=== PATIENT | female | born 1945 | race Caucasian/White ===

== ENCOUNTER 2021-05-05 21:25 | Inpatient (IN) | payer SELFPAY, OTHER ==
[2021-05-05 22:43] VITALS: BP 109/59; PULSE 86; PULSE 88; RESP 16; RESP 18; TEMP 36.9; O2SAT 92
--- NOTE | 2021-05-05 23:23 | HP.PCM_ITS ---
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 Patient had progressive paraplegia. Acute rehabilitation for progressive paraplegia. Hypotension secondary to atrial fibrillation with rapid ventricular response, off rate control medications, off anticoagulation due to hypotension. 05/01/2021 Presented to ER with hypotension secondary to atrial fibrillation with rapid ventricular response, runs of SVT. 05/02/2021 Admit to [facility] Neu[facility] Int[facility] Unit with hypotension. Hypotension resolved. Heart rate controlled with amiodarone drip. No new acute neurologic findings. No new testing recommended per neurology. Oncology recommending radiation, chemotherapy for epidural mass. 05/03/2021 Cardiology recommends stopping IV amiodarone, then Amiodarone 400MG daily for 1 month, then 200MG daily continuously. Recommend Thyroid, liver monitoring. 05/05/2021 Admit to TCU with debility, here for rehabilitation, strengthening, prior to discharge home with family. PFSH Allergy/AdvReac Type Severity Reaction Status Date / Time No Known Allergies Allergy Verified 05/05/21 23:43 Surgical History (Updated 05/05/21 @ 23:[address] Jarod Menendez MD) Hx of CABG Social History (Updated 05/05/21 @ 23:[address] Jarod Menendez MD) household members: family Smoking Status: Never smoker alcohol intake: never substance use type: does not use ROS Constitutional Constitutional: Denies chills, fever(s) or weight gain ENT HEENT: Denies headache(s), nasal congestion or nasal discharge Cardiovascular Cardiovascular: Denies chest pain or palpitations Respiratory/Chest Respiratory/Chest: Denies cough, excessive phlegm production or shortness of breath with exertion Gastrointestinal Gastrointestinal: Denies abdominal pain, nausea or vomiting Genitourinary Genitourinary: Denies dysuria Musculoskeletal Musculoskeletal: Denies joint pain or joint swelling Integumentary Integumentary: Denies rash or wounds Neurologic Neurologic: Denies focal weakness, numbness or tingling Psychiatric Psychiatric: Reports auditory hallucinations; Denies anxiety, depression, homicidal ideation or suicidal ideation Vital Signs Vital Signs Vital Signs: 05/05/21 22:43 Temperature 98.5 F Temperature Source Temporal Pulse Rate 86 Respiratory Rate 18 Blood Pressure 109/59 L Blood Pressure Mean 75 Blood Pressure Source Monitor Blood Pressure Position Semi-Fowlers Blood Pressure Location Right Arm Pulse Ox 92 Oxygen Delivery Method Room Air Physical Exam Const alert and oriented x3 General Appearance: cooperative HEENT normocephalic Eyes PERRL and EOMs intact bilaterally Neck supple, no JVD and no carotid bruits Resp normal respiratory effort, normal air movement and clear to auscultation bilaterally Cardio regular rate and regular rhythm GI normal to inspection, nondistended, normoactive bowel sounds, non-tender and non-distended Extremity normal capillary refill General Extremity: Negative for edema Skin no rashes or lesions noted General Skin Exam: no breakdown Neuro Neuro Narrative: Paraplegia. Psych affect normal Appearance: appropriate Results Lab / Micro Data Result Diagrams: 05/06/21 07:50 05/06/21 07:50 Assessment & Plan Assessment/Plan (1) Debility: (2) Hypotension: (3) Atrial fibrillation with rapid ventricular response: (4) Epidural mass: (5) Paraplegia: (6) Diffuse large B-cell lymphoma: (7) Coronary artery disease: PLAN: 75 year old female with below past medical history hospitalized for hypotension secondary to atrial fibrillation with rapid ventricular response, complicated by epidural mass, paraplegia, admitted to TCU with debility, here for rehabilitation, strengthening, prior to discharge home with family. * Debility - PT/OT, * Pain - Tylenol 1000MG Q6H PRN pain (1-5), Oxycodone 5MG Q4H PRN pain (6-10). * Bowel - Miralax 17GM daily, Senna/colace 2 tablets BID, Dulcolax 10MG DE daily PRN. * Adult immunization - Administer Prevnar 13, Pneumovax 23, Fluzone, COVID19 vaccine as appropriate. * DVT prophylaxis - Not necessary, already on Eliquis. * Atrial Fibrillation - Metoprolol 50MG Q6H, Amiodarone 400MG daily thru 06/03/2021, then 200MG daily, Eliquis 5MG twice daily. * Coronary artery disease - Metoprolol 50MG Q6H, Lisinopril 5MG daily, Aspirin 81MG daily, NTG 0.5inch TID PRN chest pain. * Hyperlipidemia - Atorvastatin 40MG QHS. * ID - Cefdinir 300MG Q12H thru 05/11/2021. * Neuropathic pain - Gabapentin 300MG TID. * Rash - Hydrocortisone cream topical twice daily. * Insomnia - Melatonin 3MG QHS. * Nutrition - MVI daily. * Nausea - Zofran 8MG Q8H PRN, Compazine 10MG Q6H PRN. * Epidural mass - radiation, consult Dr. Lake for chemotherapy, Dr. Polo for radiation.
[2021-05-06] VITALS (7 sets, daily range): BP systolic 102–135; BP diastolic 51–62; PULSE 72–88; RESP 14–16; TEMP 36.2–36.5; O2SAT 93–98; BMI 29.7
[2021-05-06] MEDS: Acetaminophen 500 MG Tablet 1000 MG PO ×2 (00:20→22:05)
[2021-05-06] MEDS: MELATONIN 3 MG TABLET PO ×2 (00:22→22:03)
[2021-05-06] MEDS: Atorvastatin Calcium 40 MG Tablet PO ×2 (00:22→22:03)
[2021-05-06] MEDS: Metoprolol Tartrate 50 MG Tablet PO ×4 (00:22→17:25)
[2021-05-06] MEDS: APIXABAN 5 MG TABLET PO ×3 (00:27→17:25)
[2021-05-06] MEDS: Cefdinir 300 MG Capsule PO ×3 (00:27→17:26)
[2021-05-06] MEDS: Senna Tablet 2 TABLET PO ×2 (06:02→17:26)
[2021-05-06] MEDS: Amiodarone 200 MG Tablet 400 MG PO (06:02)
[2021-05-06] MEDS: Lisinopril 5 MG Tablet PO (06:03)
[2021-05-06] MEDS: Nystatin Powder 15gm Bottle 1 APPLIC TOPICAL ×2 (06:18→17:26)
[2021-05-06] MEDS: Polyethylene Glycol 3350 17 GM PACKET PO (06:18)
[2021-05-06 08:09] LABS: Absolute Lymphocyte Count 1.53 X10^3/uL (0.83-4.51); Absolute Neutrophil Count 5.6 X10^3/uL (2.0-7.7); Basophil# 0.04 X10^3/uL; Basophil% 0.5 % (0-1); Eosinophil# 0.33 X10^3/uL; Eosinophils% 3.8 % (0-5); Hematocrit 35.3 % (37-47); Hemoglobin 10.9 g/dL (12.0-15.0); Lymphocyte # 1.53 X10^3/ul (0.83-4.51); Lymphocyte % 17.7 % (19-41); Mean Corp Hgb Conc 30.9 g/dL (32-36); Mean Corpuscular Hgb 25.1 pg (27.0-32.0); Mean Corpuscular Volume 81.3 fL (81-99); Mean Platelet Vol. 9.7 fl (6.2-12.0); Monocyte# 1.12 X10^3/uL; Monocyte% 12.9 % (0-10); NRBC Flagged by Analyzer 0 % (0-5); Neutrophil # 5.58 X10^3/uL (2.7-7.7); Neutrophil % 64.5 % (47-70); Platelet Count 247 K/mm3 (150-450); RBC Distribution Width CV 17.6 % (11.6-14.6); RBC Distribution Width SD 51.8 fl (35.1-43.9); Red Blood Count 4.34 M/mm3 (4.2-5.4); White Blood Count 8.7 K/mm3 (4.4-11.0)
[2021-05-06] MEDS: Multivitamins,Ther W-Minerals Tablet 1 TABLET PO (08:26)
[2021-05-06] MEDS: Gabapentin 300 MG Capsule PO ×3 (08:26→17:25)
[2021-05-06] MEDS: Aspirin E.C. 81 MG Tablet PO (08:26)
[2021-05-06 08:34] LABS: Anion Gap 6 (5-15); BUN 8 mg/dL (7-18); BUN/Creat Ratio 16.9 RATIO (10-20); Calcium,Total 8.9 mg/dL (8.5-10.1); Chloride 103 mmol/L (98-107); Creatinine, Serum 0.47 mg/dL (0.55-1.02); EST Glomerular Filtration Rate 135 mL/min (>60); Est Glom Filt Rate - Afr Amer 164 mL/min (>60); Glucose 84 mg/dL (74-106); Potassium 3.5 mmol/L (3.5-5.1); Sodium Level 139 mmol/L (136-145)
[2021-05-06] MEDS: Tuberculin,Purif.prot.deriv. 50 TU/ML Vial 0.1 ML ID (10:06)
--- NOTE | 2021-05-06 13:57 | NURSING ---
Gutierrez inserted 05/02/21 per discharge packet.
--- NOTE | 2021-05-06 14:04 | NURSING ---
Spoke with pt and family about code status pt wishes to be full code.
--- NOTE | 2021-05-06 14:06 | NURSING ---
Pt LBM 05/01/21 per shift report pt refused Suppository at this time pt stated she will take it after her family leaves. Call light within reach.
[2021-05-06] MEDS: Bisacodyl 10 MG Suppository RC (14:43)
--- NOTE | 2021-05-06 16:07 | NURSING ---
Pt stated she takes Tylenol QHS to help her sleep better. Dr. Menendez updated and new order for 1000mg QHS.
[2021-05-07 00:13] VITALS: BP 107/54; PULSE 84
[2021-05-07] MEDS: Metoprolol Tartrate 50 MG Tablet PO ×4 (00:13→17:37)
[2021-05-07 06:20] VITALS: BP 129/66; PULSE 68; RESP 16; TEMP 36.2; O2SAT 95
[2021-05-07 06:23] VITALS: BP 129/66; PULSE 68
[2021-05-07] MEDS: Amiodarone 200 MG Tablet 400 MG PO (06:23)
[2021-05-07] MEDS: Cefdinir 300 MG Capsule PO ×2 (06:23→17:38)
[2021-05-07] MEDS: Lisinopril 5 MG Tablet PO (06:23)
[2021-05-07] MEDS: Nystatin Powder 15gm Bottle 1 APPLIC TOPICAL ×2 (06:24→17:38)
[2021-05-07] MEDS: Senna Tablet 2 TABLET PO ×2 (06:24→17:39)
[2021-05-07] MEDS: APIXABAN 5 MG TABLET PO ×2 (06:24→17:38)
[2021-05-07] MEDS: Gabapentin 300 MG Capsule PO ×3 (07:46→17:38)
[2021-05-07] MEDS: Aspirin E.C. 81 MG Tablet PO (07:46)
[2021-05-07] MEDS: Multivitamins,Ther W-Minerals Tablet 1 TABLET PO (07:46)
[2021-05-07 12:18] VITALS: BP 119/51; PULSE 81
[2021-05-07 14:08] VITALS: BP 101/56; PULSE 80; RESP 18; TEMP 36.3; O2SAT 95
[2021-05-07 17:37] VITALS: BP 136/54; PULSE 79
[2021-05-07] MEDS: Atorvastatin Calcium 40 MG Tablet PO (21:58)
[2021-05-07] MEDS: MELATONIN 3 MG TABLET PO (21:58)
[2021-05-07] MEDS: Acetaminophen 500 MG Tablet 1000 MG PO (21:58)
[2021-05-08] VITALS (7 sets, daily range): BP systolic 120–150; BP diastolic 52–72; PULSE 75–89; RESP 16; TEMP 36.4–36.6; O2SAT 93–97; BMI 29.7
[2021-05-08] MEDS: Metoprolol Tartrate 50 MG Tablet PO ×4 (02:07→17:01)
[2021-05-08] MEDS: Lisinopril 5 MG Tablet PO (06:55)
[2021-05-08] MEDS: Cefdinir 300 MG Capsule PO ×2 (06:55→17:01)
[2021-05-08] MEDS: Amiodarone 200 MG Tablet 400 MG PO (06:55)
[2021-05-08] MEDS: APIXABAN 5 MG TABLET PO ×2 (06:56→17:00)
[2021-05-08] MEDS: Nystatin Powder 15gm Bottle 1 APPLIC TOPICAL ×2 (06:57→17:01)
[2021-05-08] MEDS: Hydrocortisone 2.5% Crm 1 APPLIC TOPICAL (06:57)
--- NOTE | 2021-05-08 07:25 | PCA ---
pt dressed self with upper body dressing ex: shirt, was total dependence for lower extremity dressing
[2021-05-08] MEDS: Aspirin E.C. 81 MG Tablet PO (08:15)
[2021-05-08] MEDS: Gabapentin 300 MG Capsule PO ×3 (08:15→17:00)
[2021-05-08] MEDS: Multivitamins,Ther W-Minerals Tablet 1 TABLET PO (08:16)
[2021-05-08] MEDS: Juven (unflavored) Packet 1 PACKET PO ×2 (08:17→17:00)
--- NOTE | 2021-05-08 10:52 | NURSING ---
DR. YA'S OFFICE CALLED AND STATED THAT HE WAS CONSULTED BY [facility] FOR RADIATION TREATMENT.. R' HAS CONSULTATION APPT TODAY AT 1400. NOTIFIED R' MOLLY OF APPT. DR. VARGAS CONSULT CANCELLED D/T [facility]TS.
--- NOTE | 2021-05-08 13:56 | NURSING ---
R' LEAVING UNIT AT THIS TIME FOR APPT WITH DR. YA VIA WHEELCHAIR. AND DAUGHTER WITH R'.
--- NOTE | 2021-05-08 14:55 | EX.NTREPO ---
Medical Nutrition Therapy - History Nutrition Services has been consulted to:: Manage nutrient details of diet order Current diet/nutrition support order:: Regular No Added Salt. 120 ml ensure enlive tid w/ medpass - only strawberry - Anthropometric Measurements Height:: 5 ft 5 in Weight:: 80.966 kg Body Mass Index (BMI):: 29.7 - Relevant Labs Relevant Labs:: Hgb 10.9 g/dL (12.0-15.0) L 05/06/21 07:50 Hct 35.3 % (37-47) L 05/06/21 07:50 MCH 25.1 pg (27.0-32.0) L 05/06/21 07:50 MCHC 30.9 g/dL (32-36) L 05/06/21 07:50 RDW Std Deviation 51.8 fl (35.1-43.9) H 05/06/21 07:50 RDW Coeff of [place] 17.6 % (11.6-14.6) H 05/06/21 07:50 Lymph % (Auto) 17.7 % (19-41) L 05/06/21 07:50 [place] % (Auto) 12.9 % (0-10) H 05/06/21 07:50 Creatinine 0.47 mg/dL (0.55-1.02) L 05/06/21 07:50 - Assessment Food and Nutrient Intake: PO intake varies - states her stomach doesn't like heavy meals - didn't like what she ordered yesterday and had a hot dog sent up and ate all of it. No issues eating/swallowing. States that foods don't have the same taste as they used to and she is often put off by the smell of food. Agreeable to ONS for increased nutrition - only likes strawberry flavor. UBW: 88.451 kg - wt loss of 8.5% x ~ 6 wks ago (significant for malnutrition). - Nutrition Diagnosis: Intake Problem Increased Nutrient Needs (specify) Intake Problem - Etiology: protein related to skin status and variable po intake Intake Problem - Signs/Symptoms: as evidenced by coccyx wound and need for pascale bid to help w/ wound healing Status: Active Problem - Nutrition Diagnosis: Clinical Problem Acute Disease or Injury Related Malnutrition Clinical Problem - Etiology: related to stomach not feeling normal and has had chemo tx x 1 and radiation tx Clinical Problem - Signs/Symptoms: as evidenced by variable po intake w/ avg intake ~50% and 8.5% wt loss x ~6 wks. Status: Active Problem - Protein Calorie Malnutrition Evidence of Malnutrition Exists: Yes Severe Protein Calorie Malnutrition:: Acute Illness/Injury - Nutrition Intervention Nutrition Prescription: [id number] deana/day (RMR x 1.2). 81-97 gm pro/day (1-1.2 gm/kg). 2422 ml fluid/day (per ASPEN guidelines) - Food / Nutrient Delivery Interventions Summary of nutrition intervention:: Adjust diet order Nutrition support ordered as / adjusted to:: Will provide 120 ml strawberry ensure enlive w/ meals. Will continue Pascale bid to help w/ wound healing Nutrition education provided?: No - MNT Monitoring Active Nutrition Patient: Yes Nutrition Status: Requires Follow Up 7-9 Days - please call RD/LD if questions/concerns at x [phone]
--- NOTE | 2021-05-08 15:20 | PCM.PN.RX ---
Progress Note - Pharmacy Subjective: TCU Admission Objective: Allergies No Known Allergies Allergy (Verified 05/08/21 14:20) Current Medications Generic Name Dose Route Start Last Admin Trade Name Sosa PRN Reason Stop Dose Admin Acetaminophen 1,000 mg 05/05/21 23:42 05/06/21 00:20 Acetaminophen 500 Mg Tablet PO 1,000 mg Q6H PRN PRN Administration Pain Score 1-5 Acetaminophen 1,000 mg 05/06/21 22:00 05/07/21 21:58 Acetaminophen 500 Mg Tablet PO 1,000 mg QHS AMISH Administration Amiodarone HCl 400 mg 05/06/21 06:00 05/08/21 06:55 Amiodarone 200 Mg Tablet PO 06/03/21 16:00 400 mg DAILY AMISH Administration Amiodarone HCl 200 mg 06/04/21 06:00 Amiodarone 200 Mg Tablet PO DAILY AMISH Apixaban 5 mg 05/05/21 23:15 05/08/21 06:56 Apixaban 5 Mg Tablet PO 5 mg BID AMISH Administration Aspirin 81 mg 05/06/21 08:00 05/08/21 08:15 Aspirin E.C. 81 Mg Tablet PO 81 mg BREAKFAST AMISH Administration Atorvastatin Calcium 40 mg 05/05/21 23:00 05/07/21 21:58 Atorvastatin Calcium 40 Mg Tablet PO 40 mg QHS AMISH Administration Bisacodyl 10 mg 05/05/21 23:00 05/06/21 14:43 Bisacodyl 10 Mg Suppository RC 10 mg DAILY PRN Administration Constipation Cefdinir 300 mg 05/05/21 23:00 05/08/21 06:55 Cefdinir 300 Mg Capsule PO 05/11/21 06:01 300 mg Q12 AMISH Administration Gabapentin 300 mg 05/06/21 07:45 05/08/21 11:19 Gabapentin 300 Mg Capsule PO 300 mg TIDCM AMISH Administration Hydrocortisone 1 applic 05/06/21 06:00 05/08/21 06:57 Hydrocortisone 2.5% Crm TOPICAL 1 applic BID AMISH Administration Protocol L-Arginine/L-Glutamine/Calcium HMB 1 packet 05/08/21 08:00 05/08/21 08:17 Shaan (Unflavored) Packet PO 1 packet BIDCM AMISH Administration Lisinopril 5 mg 05/06/21 06:00 05/08/21 06:55 Lisinopril 5 Mg Tablet PO 5 mg DAILY AMISH Administration Melatonin 3 mg 05/05/21 23:15 05/07/21 21:58 Melatonin 3 Mg Tablet PO 3 mg QHS AMISH Administration Metoprolol Tartrate 50 mg 05/06/21 00:00 05/08/21 11:19 Metoprolol Tartrate 50 Mg Tablet PO 50 mg Q6 AMISH Administration Multivitamins/Minerals 1 tablet 05/06/21 08:00 05/08/21 08:16 Multivitamins,Ther W-Minerals Tablet PO 1 tablet BREAKFAST AMISH Administration Nitroglycerin 0.5 inch 05/05/21 23:03 Nitroglycerin Oint 1 Inch Packet TD PRN PRN Angina Nystatin 1 applic 05/06/21 06:00 05/08/21 06:57 Nystatin Powder 15gm Bottle TOPICAL 1 applic BID AMISH Administration Protocol Ondansetron HCl 8 mg 05/05/21 23:09 Ondansetron Odt 4 Mg Tablet PO Q8H PRN PRN NAUSEA Polyethylene Glycol 17 gm 05/06/21 06:00 05/08/21 06:57 Polyethylene Glycol 3350 17 Gm Packet PO Not Given DAILY AMIHS Prochlorperazine Maleate 10 mg 05/05/21 23:06 Prochlorperazine 5 Mg Tablet PO Q6H PRN PRN NAUSEA/VOMITING Senna 2 tablet 05/06/21 06:00 05/08/21 14:09 Senna Tablet PO Not Given BID AMISH Tuberculin PPD 0.1 ml 05/13/21 10:00 Tuberculin,Purif.Prot.Deriv. 50 Tu/Ml Vial ID 05/13/21 10:01 X1 ONE Problem List (Last Reviewed 05/08/21 @ 14:28 by Rachel Goodman RN) Diffuse large B-cell lymphoma (Acute) Coronary artery disease (Acute) Paraplegia (Acute) Epidural mass (Acute) Atrial fibrillation with rapid ventricular response (Acute) Hypotension (Acute) Debility (Acute) Vital Signs Temp Pulse Resp BP Pulse Ox 97.9 F 86 16 120/52 L 97 05/08/21 13:28 05/08/21 13:28 05/08/21 13:28 05/08/21 13:28 05/08/21 13:28 Oxygen Delivery Method Room Air Weight: 80.966 kg Body Mass Index (BMI) 29.7 Sodium 139 mmol/L (136-145) 05/06/21 07:50 Potassium 3.5 mmol/L (3.5-5.1) 05/06/21 07:50 Chloride 103 mmol/L (98-107) 05/06/21 07:50 Carbon Dioxide 30.0 mmol/L (21.0-32.0) 05/06/21 07:50 Anion Gap 6 (5-15) 05/06/21 07:50 BUN 8 mg/dL (7-18) 05/06/21 07:50 Creatinine 0.47 mg/dL (0.55-1.02) L 05/06/21 07:50 Est GFR (MDRD) Af Amer 164 mL/min (>60) 05/06/21 07:50 Est GFR (MDRD) Non-Af 135 mL/min (>60) 05/06/21 07:50 BUN/Creatinine Ratio 16.9 RATIO (10-20) 05/06/21 07:50 Glucose 84 mg/dL (74-106) 05/06/21 07:50 Assessment/Plan: 1. Pain: acetaminophen 1000mg PO QHS and 1000mg PO Q6H PRN pain 1-07/30. Please continue to monitor for increased pain. 2. ID: cefdinir 300mg PO Q12 thru 05/11/21. Please continue to monitor for S/S of infection and renal function. 3. Atrial fibrillation/CAD: metoprolol tartrate 50mg PO Q6, amiodarone 400mg PO daily thru 06/03/21 then 200mg PO daily starting 06/04/21, lisinopril 5mg PO daily, aspirin 81mg PO DAILYCM, nitroglycerin ointment 0.5inch TID PRN chest pain. Please continue to monitor for S/S of bleeding, hemoglobin (last 10.9g/dL), BP (last 120/52), HR (last 86), potassium (last 3.5mmol/L), cough, and renal function. *4. Hyperlipidemia: atorvastatin 40mg PO QHS. Please consider ordering a lipid panel. Patient does not have one in the chart. Thanks. Please continue to monitor for muscle pain. 5. Neuropathic pain: gabapentin 300mg PO TIDCM. Please continue to monitor for nerve pain and renal function. 6. Insomnia: melatonin 3mg PO QHS. Please continue to monitor for excessive drowsiness. 7. Nutrition: multivitamin with minerals 1T PO breakfast. Please continue to monitor. 8. Nausea: ondansetron ODT 8mg PO Q8H PRN nausea and prochlorperazine 10mg PO Q6H PRN nausea/vomiting (if Zofran is ineffective). Please continue to monitor for nausea and PRN usage. Psychotropic Medications: None Unnecessary Medications: None *Bowel Regimen: Miralax 17gm PO daily, senna 2T PO BID and bisacodyl 10mg RC daily PRN constipation. Patient has refused recent doses of Miralax and senna due to diarrhea. Please consider changing from scheduled to PRN constipation. Thanks. Please continue to monitor for constipation and PRN usage. Date of Note:: 05/08/21
--- NOTE | 2021-05-08 15:56 | CASEMGMT ---
Social Work Attempted to complete assessment with patient, patient ask for social service liaison to stop by tomorrow as patient is really tired. This social service liaison to follow up with completing assessment with patient tomorrow. This social service liaison did get a chance to speak with patient briefly about a power wheelchair as per therapy patient would benefit from this. Patient is agreeable this social service liaison getting a one time wheelchair evaluation completed for patient. This social service liaison did communicate that the power wheelchair will be private pay, patient family voiced understanding. Telephone call to [facility]. Per therapy department an order for a one time wheelchair evaluation will need to be obtained to start the process of obtaining a power wheelchair for patient. Signed order to be faxed to: [phone]. Order for wheelchair evaluation placed in Dr. Menendez's folder to be signed. Will continue to follow. Dottie SALINAS, NIC
--- NOTE | 2021-05-08 16:36 | NURSING ---
R' HAS APPT TOMORROW AT [address] YA. NO RADIATION SET UP AT THIS POINT (WILL TAKE 5-7 DAYS TO SET EVERYTHING UP.)
[2021-05-08] MEDS: Atorvastatin Calcium 40 MG Tablet PO (21:27)
[2021-05-08] MEDS: Acetaminophen 500 MG Tablet 1000 MG PO (21:27)
[2021-05-08] MEDS: MELATONIN 3 MG TABLET PO (21:27)
[2021-05-09] VITALS (7 sets, daily range): BP systolic 105–147; BP diastolic 55–66; PULSE 78–102; RESP 16–18; TEMP 36.7–36.8; O2SAT 95–96
[2021-05-09] MEDS: Metoprolol Tartrate 50 MG Tablet PO ×4 (00:09→17:49)
[2021-05-09] MEDS: Polyethylene Glycol 3350 17 GM PACKET PO (06:17)
[2021-05-09] MEDS: Amiodarone 200 MG Tablet 400 MG PO (06:17)
[2021-05-09] MEDS: Senna Tablet 2 TABLET PO (06:17)
[2021-05-09] MEDS: Lisinopril 5 MG Tablet PO (06:18)
[2021-05-09] MEDS: Cefdinir 300 MG Capsule PO ×2 (06:18→17:48)
[2021-05-09] MEDS: APIXABAN 5 MG TABLET PO ×2 (06:18→17:48)
[2021-05-09] MEDS: Nystatin Powder 15gm Bottle 1 APPLIC TOPICAL ×2 (06:27→17:48)
[2021-05-09] MEDS: Juven (unflavored) Packet 1 PACKET PO ×2 (08:17→17:48)
[2021-05-09] MEDS: Multivitamins,Ther W-Minerals Tablet 1 TABLET PO (08:17)
[2021-05-09] MEDS: Aspirin E.C. 81 MG Tablet PO (08:17)
[2021-05-09] MEDS: Gabapentin 300 MG Capsule PO ×3 (08:17→17:48)
--- NOTE | 2021-05-09 10:28 | CASEMGMT ---
Social Work Order for wheelchair evaluation faxed to [facility] ASSISTANT, ADMINISTRATION SPECIALIST-S
--- NOTE | 2021-05-09 10:35 | CASEMGMT ---
Social Work Palliative Care referral made per Dr. Menendez/screening results. Screening tool and face sheet faxed to Palliative Care. Dottie Lopez MSW, BRADY-S
--- NOTE | 2021-05-09 11:02 | NURSING ---
patient's indwelling cath spontaneously fell out, balloon intact. New cyr placed, pt tolerated well.
--- NOTE | 2021-05-09 13:08 | CASEMGMT ---
Social Work Brief interview for mental status (BIMS) and resident mood interview (PHQ-9) completed on this day. Dottie SALINAS, LINNEAS
--- NOTE | 2021-05-09 15:09 | NURSING ---
wound photo: sacrum
--- NOTE | 2021-05-09 20:10 | NURSING ---
Pt had lg BM that soiled drg on coccyx. Removed drg, cleansed, and redressed wound per order. Pt tolerated well, RN aware.
[2021-05-09] MEDS: Atorvastatin Calcium 40 MG Tablet PO (21:06)
[2021-05-09] MEDS: MELATONIN 3 MG TABLET PO (21:06)
[2021-05-09] MEDS: Acetaminophen 500 MG Tablet 1000 MG PO (21:06)
[2021-05-10] VITALS (7 sets, daily range): BP systolic 106–151; BP diastolic 60–66; PULSE 60–85; RESP 12–16; TEMP 36–36.5; O2SAT 96
[2021-05-10] MEDS: Metoprolol Tartrate 50 MG Tablet PO ×4 (01:14→17:17)
[2021-05-10] MEDS: Amiodarone 200 MG Tablet 400 MG PO (06:02)
[2021-05-10] MEDS: APIXABAN 5 MG TABLET PO ×2 (06:03→17:16)
[2021-05-10] MEDS: Nystatin Powder 15gm Bottle 1 APPLIC TOPICAL ×2 (06:06→17:17)
[2021-05-10] MEDS: Lisinopril 5 MG Tablet PO (06:06)
[2021-05-10] MEDS: Cefdinir 300 MG Capsule PO ×2 (06:06→17:16)
[2021-05-10] MEDS: Collagenase 30gm Tube 1 APPLIC TOPICAL (06:07)
--- NOTE | 2021-05-10 07:09 | NURSING ---
Pt IV removed, no issues of pain noted. IV intact.
[2021-05-10] MEDS: Multivitamins,Ther W-Minerals Tablet 1 TABLET PO (08:21)
[2021-05-10] MEDS: Aspirin E.C. 81 MG Tablet PO (08:21)
[2021-05-10] MEDS: Juven (unflavored) Packet 1 PACKET PO ×2 (08:21→17:15)
[2021-05-10] MEDS: Gabapentin 300 MG Capsule PO ×3 (08:21→17:15)
--- NOTE | 2021-05-10 08:53 | RAD_ITS ---
STUDY: X-RAY - ABDOMEN/PELVIS REASON FOR EXAM: Female, 75 years old. Diarrhea -- Pat states had recent spine surgery. TECHNIQUE: Single AP view of the abdomen / pelvis. COMPARISON: None. FINDINGS: Normal visualized lung bases. There is a moderate amount of colonic fecal material. The visualized liver, spleen and kidneys are grossly normal in size and morphology. Normal soft tissue structures. There are diffuse degenerative changes of the visualized lumbar spine. RAD/Abdomen Single View IMPRESSION: There is a moderate amount of fecal material Electronically Signed: Nathan Cotton MD at 10:41 EDT , Service support ,
--- NOTE | 2021-05-10 11:53 | CON.PCM.PA_ITS ---
Assessment & Plan Assessment/Plan (1) Hx of CABG: (2) Debility: (3) Paraplegia: (4) Diffuse large B-cell lymphoma: QUALIFIERS: Lymphoma site: extranodal excluding spleen and other solid organs Qualified Code(s): C83.39 - Diffuse large B-cell lymphoma, extra john and solid organ sites (5) Epidural mass: (6) Atrial fibrillation with rapid ventricular response: (7) Hypotension: (8) Coronary artery disease: PLAN: 75-year-old female with unfortunate course of history within the last few months, became paraplegic due to epidural mass. Has a history of diffuse large B-cell lymphoma and follows with Dr. Lake. Seen for palliative care consultation secondary to acute decline in ADLs and history of cancer. 1. Debility and weakness: Obviously increased since paraplegia, she is at TCU for rehab. Unclear if she will be going to ECF/SNF versus returning home. Plan is to return home if able. Family making adjustments to home to accomodate. We will continue to follow, continue with therapy. 2. History of diffuse large B-cell lymphoma, now thoracic epidural mass: She will begin radiation treatments. Still following with oncology, however was unable to go to her appointment the other day secondary to requiring a cot to get there. Dr. Polo rad/onc is following. Unclear prognosis at this point but mass has caused significant overall decline 3. A. fib RVR: Stable. Controlled on current meds. Following with cardiology. 4. Hypertension/CAD s/p CABG/HLD/constipation: Complicates overall care, management, recovery, and prognosis. Defer management to attending. Thank you for the opportunity to participate in this patient's care, please do not hesitate to contact [facility] with any further questions or concerns. Palliative direct line is [phone]. We will follow up after discharge and will discuss palliative services further at that time. Greater than 50% of F2F visit dedicated to education and counseling of palliative care services, medications, comorbid conditions and potential assistance with management, and plan of care moving forward. Start time: 1145 End time: 1304 HPI Consult Data Date of Consult: 05/10/21 HPI Narrative HPI Narrative: CHRISTOPHER CORONEL, is a 75 F, PMH as below, who presents to [facility] transitional care unit for rehabilitation secondary to progressive paraplegia. Palliative care consulted for her cancer diagnosis, unintentional weight loss, frequent hospitalizations, and a significant decrease in her ability to perform ADLs. She has a history of diffuse large B-cell lymphoma and underwent recent biopsy of epidural mass causing T4-T7 spinal cord compression in February 2021. Apparently she presented to [place] ER twice with complaints of progressive numbness, tingling, and burning of both legs. She was sent home both times. Her paraplegia progressed to the point where it is unc lear if she will regain function. Patient then presented to ER 05/01 with hypotension secondary to A. fib with RVR and runs of SVT. She was admitted to [facility] neurologic intensive care unit with hypotension. Oncology was consulted and recommended radiation and chemotherapy for her the epidural mass. She was put on amiodarone p.o. Patient was stabilized and discharged to TCU for further rehab. Patient has a significant decubitus to her sacrum. Wound care is following for this. She does have an indwelling catheter due to the wound. She is planning on starting radiation soon for her epidural mass. She had an appointment with Dr. Polo 05/08. Patient's goal is to return home with her spouse. It is unclear where she will go at discharge however, she has had a significant decline in ADLs secondary to the paraplegia. He is getting her own motorized wheelchair. Patient reports she has no significant pain or shortness of breath. It is hard to take a deep breath at times, she thinks it is due to her paralysis. She cannot feel much of anything from the chest down. Has not had any fever or chills. No vomiting but does have intermittent queasiness. Her appetite has been very poor. She can feel some numbness and tingling when someone is touching her legs. She does feels nothing tastes good and has no flavor. She does not feel hungry most of the time. She even had her family bring in some of her favorite food from home, and she took 4 bites and was done. She is trying to drink magnesium citrate that was given to her earlier today. She had a KUB this morning that showed a moderate amount of colonic stool. She is unable to tell when she has to go. States she was having some diarrhea yesterday. We did discuss palliative services at length and touched on hospice as well. She is familiar with hospice as her mother was enrolled. Patient reports she is part of the [facility] and has 5 children, 4 live nearby her house. She lost 1 son to an accident when he was 13 years old in 1980. PFSH Home Medications acetaminophen 500 mg tablet 1,000 mg PO Q6H PRN tab 05/08/21 [History Last Taken Unknown] apixaban 5 mg tablet 5 mg PO BID 05/08/21 [History Last Taken Unknown] atorvastatin 40 mg tablet 40 mg PO DAILY 05/08/21 [History Last Taken Unknown] bisacodyl 10 mg rectal suppository 10 mg LA DAILY PRN 05/08/21 [History Last Taken Unknown] cefdinir 300 mg capsule 300 mg PO Q12H 05/08/21 [History Last Taken Unknown] gabapentin 300 mg capsule 300 mg PO TID 05/08/21 [History Last Taken Unknown] lisinopril 5 mg tablet 5 mg PO DAILY 05/08/21 [History Last Taken Unknown] melatonin 3 mg capsule 3 mg PO HS PRN 05/08/21 [History Last Taken Unknown] metoprolol succinate 50 mg tablet,extended release 24 hr 50 mg PO BID 05/08/21 [History Last Taken Unknown] oxycodone 5 mg capsule 5 mg PO Q4H PRN 05/08/21 [History Last Taken Unknown] polyethylene glycol 3350 17 gram/dose oral powder 17 g PO DAILY 05/08/21 [History Last Taken Unknown] sennosides 8.6 mg capsule 8.6 mg PO BID 05/08/21 [History Last Taken Unknown] Allergy/AdvReac Type Severity Reaction Status Date / Time No Known Allergies Allergy Verified 05/08/21 14:20 Family History (Updated 05/10/21 @ 12:56 by EZIO Alexander) Father CHF (congestive heart failure) Mother CAD (coronary artery disease) Alzheimer disease Surgical History (Updated 05/10/21 @ 12:54 by EZIO Alexander) Hx of CABG S/P cholecystectomy Social History (Updated 05/10/21 @ 12:57 by SHELBIE AlexanderC) household members: family housing: house number of children: 5 Smoking Status: Never smoker alcohol intake: never substance use type: does not use chris/pentecostalism: [facility] ROS ROS Narrative Review of systems otherwise negative from a constitutional, HEENT, respiratory, cardiovascular, GI, genitourinary, musculoskeletal, skin, neurologic, psychiatric and hematologic system unless stated above. Physical Exam Const alert, oriented x3 and no apparent distress General Appearance: cooperative HEENT normocephalic and head/scalp atraumatic Neck supple General: trachea midline Resp normal respiratory effort Effort and Inspection: able to speak in complete sentences and symmetric chest movement Auscultation: clear to auscultation bilaterally and diminished lung sounds Cardio regular rate, S1 normal heart sound and S2 normal heart sound Cardio Narrative: distant heart sounds GI normal to inspection, nondistended, normoactive bowel sounds Skin no rashes or lesions noted Wounds: wounds noted Wound Narrative: has large sacral decubitus, did not observe but reviewed photos Neuro no focal motor deficits Neuro Narrative: paraplegia chest down Speech: speech normal Psych mental status grossly normal, thought process normal and cooperative
[2021-05-10] MEDS: Magnesium Citrate 300 ML PO (12:08)
--- NOTE | 2021-05-10 12:43 | CASEMGMT ---
Social Work Telephone call to [facility], therapy team. [facility] reports to have received the order for the wheelchair evaluation and will be reaching out to social work to coordinate a time/date to set up a wheelchair evaluation. [facility] D[facility] P: [phone] F: [phone] Will continue to follow. Dottie SALINAS, BRADY-S
--- NOTE | 2021-05-10 13:21 | CASEMGMT ---
Social Work Plan of care meeting held. Patient present as well as patient family. No discharge date set. Patient to continue with further care and treatment on the Transitional Care Unit. Patient to begin radiation next Saturday (05/17/2021). Support provided. Will continue to follow. Dottie SALINAS, NIC
[2021-05-10] MEDS: MELATONIN 3 MG TABLET PO (21:35)
[2021-05-10] MEDS: Atorvastatin Calcium 40 MG Tablet PO (21:35)
[2021-05-10] MEDS: Acetaminophen 500 MG Tablet 1000 MG PO (21:35)
[2021-05-11] VITALS (8 sets, daily range): BP systolic 110–128; BP diastolic 51–68; PULSE 73–107; RESP 14–18; TEMP 35.6–37.7; O2SAT 91–95
[2021-05-11] MEDS: Metoprolol Tartrate 50 MG Tablet PO ×4 (00:53→18:03)
--- NOTE | 2021-05-11 04:18 | NURSING ---
Dressing to coccyx soiled from loose stool, dressing changed.
[2021-05-11] MEDS: Lisinopril 5 MG Tablet PO (05:56)
[2021-05-11] MEDS: Amiodarone 200 MG Tablet 400 MG PO (05:57)
[2021-05-11] MEDS: APIXABAN 5 MG TABLET PO ×2 (05:57→18:03)
[2021-05-11] MEDS: Cefdinir 300 MG Capsule PO (05:57)
[2021-05-11] MEDS: Nystatin Powder 15gm Bottle 1 APPLIC TOPICAL ×2 (05:58→18:05)
[2021-05-11] MEDS: Collagenase 30gm Tube 1 APPLIC TOPICAL (05:58)
[2021-05-11] MEDS: Multivitamins,Ther W-Minerals Tablet 1 TABLET PO (08:24)
[2021-05-11] MEDS: Juven (unflavored) Packet 1 PACKET PO ×2 (08:24→18:02)
[2021-05-11] MEDS: Aspirin E.C. 81 MG Tablet PO (08:24)
[2021-05-11] MEDS: Gabapentin 300 MG Capsule PO ×3 (08:24→18:03)
--- NOTE | 2021-05-11 12:54 | PCM.CONS.GEN ---
Assessment & Plan Assessment/Plan (1) Diffuse large B-cell lymphoma: QUALIFIERS: Lymphoma site: extranodal excluding spleen and other solid organs Qualified Code(s): C83.39 - Diffuse large B-cell lymphoma, extranodal and solid organ sites (2) Paraplegia: (3) Debility: (4) Pressure ulcer of sacral region, unstageable: (5) Skin necrosis: PLAN: Patient has a sacral pressure sore with overlying skin necrosis. It is unstageable at the present time. I suspect a Stage III-IV after operative excision. She will need a specialty bed at home such as a low air loss bed. Recommend excision of this pressure sore to remove the necrotic tissue which is a nidus for infection. She is scheduled to receive radiation therapy to her mid back. Her immune system is compromised which puts her at a higher risk for infection. I don't think the bone is involved. If the pressure sore does extend down to bone, then a partial ostectomy for osteomyelitis will be done. Postoperatively will proceed with wound care with the VAC. Tissue will be sent to Pathology for analysis to rule out carcinoma and to Microbiology for culture. A positive culture will necessitate antibiotic therapy. Surgery will be done under general anesthesia. Will schedule the surgery on Saturday before her radiation therapy is supposed to start later in the week. Anticipate increased metabolic demands from the wound. Will check a Prealbumin and encourage nutritional supplementation with protein to help the healing process. Patient was informed of the risks and complications of the procedure including alternatives to surgery. These were discussed with the patient personally. Patient voices understanding and wishes to proceed. After discharge, she will [facility]. We discussed the current risks associated with COVID-19. While it is understood that there is a community spread of COVID-19, the risk of chapo COVID-19 while at [facility] ([facility]) is very low; however, the risk cannot be completely mitigated because of the community spread of the disease. We discussed in detail the risk of exposure to and/or potential harm posed by the COVID-19 virus with having a surgery/procedure at this time versus the risk of delaying the surgery/procedure. It is not possible to know either the risk of delaying the surgery or procedure or chance of getting an infection with perfect accuracy, but a joint decision was made to proceed at this time with the scheduled surgery/procedure as indicated on the consent form. Patient was notified that we will need to comply with any screening or testing [facility] wishes to perform or that surgery may be delayed for any positive results. HPI Consult Data Date of Consult: 05/11/21 PCP / Referring MD: Dr. Menendez. Attending Care Provider: Dr. Jarod Menendez MD HPI Narrative Reason for Consultation: Sacral pressure sore with skin necrosis. HPI Narrative: CHRISTOPHER CORONEL, is a 75 Female with history of diffuse large B-cell lymphoma,who had emergency evacuation, biopsy of epidural mass causing T4-T7 spinal cord compression. She has progressive paraplegia. She came to TCU for acute rehab for this progressive paraplegia. Her WBC was 11.8. She is scheduled for chemotherapy and radiation therapy. The radiation therapy is set to begin later next week. In the meantime, it was noted she has a worsening sacral pressure sore with skin necrosis. I was asked to evaluate this patient for surgical options for treatment. PFSH no medical history (Atrial fibrillation. CAD. Paraplegia. Diffuse large B-cell lymphoma. Debility.) Home Medications acetaminophen 500 mg tablet 1,000 mg PO Q6H PRN tab 05/08/21 [History Last Taken Unknown] apixaban 5 mg tablet 5 mg PO BID 05/08/21 [History Last Taken Unknown] atorvastatin 40 mg tablet 40 mg PO DAILY 05/08/21 [History Last Taken Unknown] bisacodyl 10 mg rectal suppository 10 mg NM DAILY PRN 05/08/21 [History Last Taken Unknown] cefdinir 300 mg capsule 300 mg PO Q12H 05/08/21 [History Last Taken Unknown] gabapentin 300 mg capsule 300 mg PO TID 05/08/21 [History Last Taken Unknown] lisinopril 5 mg tablet 5 mg PO DAILY 05/08/21 [History Last Taken Unknown] melatonin 3 mg capsule 3 mg PO HS PRN 05/08/21 [History Last Taken Unknown] metoprolol succinate 50 mg tablet,extended release 24 hr 50 mg PO BID 05/08/21 [History Last Taken Unknown] oxycodone 5 mg capsule 5 mg PO Q4H PRN 05/08/21 [History Last Taken Unknown] polyethylene glycol 3350 17 gram/dose oral powder 17 g PO DAILY 05/08/21 [History Last Taken Unknown] sennosides 8.6 mg capsule 8.6 mg PO BID 05/08/21 [History Last Taken Unknown] Allergy/AdvReac Type Severity Reaction Status Date / Time No Known Allergies Allergy Verified 05/08/21 14:20 Family History Father CHF (congestive heart failure) Mother CAD (coronary artery disease) Alzheimer disease Surgical History Hx of CABG S/P cholecystectomy Social History household members: family housing: house number of children: 5 Smoking Status: Never smoker alcohol intake: never substance use type: does not use chris/christian: [employer] ROS ROS Narrative REVIEW OF SYSTEMS General - Denies fever, fatigue, and weight loss. Eyes - Denies cataracts and glaucoma. ENT - Denies nasal congestion and sore throat. Endocrine - Denies excessive thirst and urination. Skin - Denies suspicious lesions and skin cancer. Musculoskeletal - Denies joint pain, joint stiffness, weakness of muscles and joints, back pain, and arthritis. Neuro - Denies headaches. Cardiovascular - Denies chest pain, fatigue, and shortness of breath with exertion. Psych - Denies anxiety and depression. Respiratory - Denies chronic cough and shortness of breath. Gastrointestinal - Denies nausea, vomiting, diarrhea, and constipation. Hematologic - Denies abnormal bruising and bleeding. Genitourinary - Denies hematuria and urinary frequency. Physical Exam Narrative PHYSICAL EXAMINATION General - Alert and Oriented. HEENT - PERRL. EOMI. Throat is clear. Neck - Supple and nontender. No cervical adenopathy. Lungs - Clear to auscultation. Heart - Regular rate and rhythm. Abdomen - Soft and nondistended. Extremities - FROM. No axillary adenopathy. Radial pulses are palpable. Lower back - There is a sacral pressure sore with overlying skin necrosis. No purulent drainage. It is unstageable at the present time because of the skin necrosis. Suspect a Stage III-IV pressure sore after excision in the operating room. Measures 8 cm with surrounding periwound redness. Nontender. Neuro - CN II-XII grossly intact. Has paraplegia at T7. Psych - Normal mood and affect. Lab / Micro Data Attestation: I reviewed the patient's lab results. Result Diagrams: 05/13/21 07:54 05/13/21 07:54 Procedure Criteria Type of Procedure Procedure Type: Elective Elective Risks - COVID COVID Risk Discussion: The surgeon/proceduralist and patient have discussed in detail the risk of exposure to and/or potential harm posed by the COVID-19 virus with having a surgery/procedure at this time versus the risk of delaying the surgery/procedure. It is not possible to know either the risk of delaying the surgery or procedure or chance of getting an infection with perfect accuracy, but a joint decision was made between the patient and the surgeon/proceduralist to proceed at this time with the scheduled surgery/procedure as indicated on the consent form. Charges/Coding Visit Charges Inpatient E&M: 18123 Init Hosp L2 (ICD-10 - L89.150, I96, C83.30, G82.20, R53.81)
[2021-05-11] MEDS: Acetaminophen 500 MG Tablet 1000 MG PO (20:45)
[2021-05-11] MEDS: MELATONIN 3 MG TABLET PO (20:45)
[2021-05-11] MEDS: Atorvastatin Calcium 40 MG Tablet PO (20:45)
[2021-05-12 00:19] VITALS: BP 107/52; PULSE 73
[2021-05-12] MEDS: Metoprolol Tartrate 50 MG Tablet PO ×4 (00:19→17:02)
[2021-05-12 05:20] VITALS: BP 106/44; PULSE 80; RESP 16; TEMP 36.2; O2SAT 92
[2021-05-12 06:21] VITALS: BP 109/59; PULSE 81
[2021-05-12] MEDS: Senna Tablet 2 TABLET PO (06:21)
[2021-05-12] MEDS: APIXABAN 5 MG TABLET PO ×2 (06:21→17:01)
[2021-05-12] MEDS: Amiodarone 200 MG Tablet 400 MG PO (06:21)
[2021-05-12] MEDS: Lisinopril 5 MG Tablet PO (06:21)
[2021-05-12] MEDS: Polyethylene Glycol 3350 17 GM PACKET PO (06:21)
[2021-05-12] MEDS: Nystatin Powder 15gm Bottle 1 APPLIC TOPICAL ×2 (06:21→17:03)
[2021-05-12] MEDS: Collagenase 30gm Tube 1 APPLIC TOPICAL (06:39)
--- NOTE | 2021-05-12 07:31 | NURSING ---
Incontinent of loose stool, Dressing changed to coccyx per order.
[2021-05-12] MEDS: Multivitamins,Ther W-Minerals Tablet 1 TABLET PO (08:30)
[2021-05-12] MEDS: Juven (unflavored) Packet 1 PACKET PO ×2 (08:30→17:01)
[2021-05-12] MEDS: Aspirin E.C. 81 MG Tablet PO (08:30)
[2021-05-12] MEDS: Gabapentin 300 MG Capsule PO ×3 (08:30→17:01)
[2021-05-12 12:04] VITALS: BP 131/62; PULSE 92
[2021-05-12] MEDS: Menthol/Lanolin/Calamine/Znox 113 GM Tube 1 APPLIC TOPICAL ×2 (13:42→21:09)
--- NOTE | 2021-05-12 15:05 | CASEMGMT ---
Social Work SW placed call to [facility] to discuss wheelchair evaluation. Pt scheduled for May 24 at 1200. [facility] will come to TCU and evaluate pt for a power wheelchair at that time. SW met with pt and family and updated, they are agreeable. Therapy and nursing updated. JEROMY Justice
[2021-05-12 16:00] VITALS: BP 114/48; PULSE 103; RESP 16; TEMP 37.6; O2SAT 95
[2021-05-12 17:02] VITALS: PULSE 103
[2021-05-12] MEDS: Atorvastatin Calcium 40 MG Tablet PO (21:11)
[2021-05-12] MEDS: Acetaminophen 500 MG Tablet 1000 MG PO (21:11)
[2021-05-12] MEDS: MELATONIN 3 MG TABLET PO (21:11)
[2021-05-13] VITALS (7 sets, daily range): BP systolic 110–145; BP diastolic 56–69; PULSE 82–107; RESP 16–18; TEMP 36.3–36.7; O2SAT 95
[2021-05-13] MEDS: Metoprolol Tartrate 50 MG Tablet PO ×5 (00:20→23:51)
--- NOTE | 2021-05-13 03:54 | NURSING ---
RADAR ENGINEERING TEACHER reports locating an apparent bed bug on patient linen during patient care. prep room supervisor and environmental services notified. Environmental service identified bug as bed bug. Per policy, room change required. Patient notified of finding and hospital policy. Patient expressed concern related to several recent gifts provided from family/friends outside of facility.Skin assessment completed x2 RNs, no insect bites observed. Patient denies itching. Bed bath and clean linen provided. All personal belongings bagged and remain in room 17 with exception of Bible and cellphone that were examined and disinfected. Patient agreeable to above. No distress observed or reported. Accepts room change. Denies requests. Call light in reach. Room change to room 3. Registration notified of room change.
[2021-05-13] MEDS: APIXABAN 5 MG TABLET PO ×2 (06:50→17:13)
[2021-05-13] MEDS: Lisinopril 5 MG Tablet PO (06:50)
[2021-05-13] MEDS: Polyethylene Glycol 3350 17 GM PACKET PO (06:51)
[2021-05-13] MEDS: Amiodarone 200 MG Tablet 400 MG PO (06:51)
[2021-05-13] MEDS: Senna Tablet 2 TABLET PO (06:52)
[2021-05-13 08:08] LABS: Absolute Lymphocyte Count 1.75 X10^3/uL (0.83-4.51); Absolute Neutrophil Count 8.4 X10^3/uL (2.0-7.7); Basophil# 0.05 X10^3/uL; Basophil% 0.4 % (0-1); Eosinophil# 0.27 X10^3/uL; Eosinophils% 2.3 % (0-5); Hematocrit 34.4 % (37-47); Hemoglobin 10.7 g/dL (12.0-15.0); Lymphocyte # 1.75 X10^3/ul (0.83-4.51); Lymphocyte % 14.8 % (19-41); Mean Corp Hgb Conc 31.1 g/dL (32-36); Mean Corpuscular Hgb 25.1 pg (27.0-32.0); Mean Corpuscular Volume 80.6 fL (81-99); Mean Platelet Vol. 9.2 fl (6.2-12.0); Monocyte# 1.28 X10^3/uL; Monocyte% 10.8 % (0-10); NRBC Flagged by Analyzer 0 % (0-5); Neutrophil # 8.44 X10^3/uL (2.7-7.7); Neutrophil % 71.4 % (47-70); Platelet Count 350 K/mm3 (150-450); RBC Distribution Width CV 17.2 % (11.6-14.6); RBC Distribution Width SD 50.2 fl (35.1-43.9); Red Blood Count 4.27 M/mm3 (4.2-5.4); White Blood Count 11.8 K/mm3 (4.4-11.0)
[2021-05-13 08:33] LABS: Anion Gap 5 (5-15); BUN 13 mg/dL (7-18); BUN/Creat Ratio 33.9 RATIO (10-20); Calcium,Total 8.7 mg/dL (8.5-10.1); Chloride 103 mmol/L (98-107); Creatinine, Serum 0.38 mg/dL (0.55-1.02); EST Glomerular Filtration Rate 173 mL/min (>60); Est Glom Filt Rate - Afr Amer 209 mL/min (>60); Estimated Creatinine Clearance 43.07 ml/min; Glucose 101 mg/dL (74-106); Potassium 4.1 mmol/L (3.5-5.1); Sodium Level 137 mmol/L (136-145)
--- NOTE | 2021-05-13 09:04 | PCA ---
Patient rang call light as this bay stocker was coming onto the floor to start shift . patient asked for cath tubing to be stated out and cath to be hung at the end of her bed . this bay stocker straitened cath tubing and hung cath bag at the end of patients bed . this bay stocker asked if there was anything more i could to for this patient ,patient replied no . as this bay stocker walked out of the room patient yelled for help and stated that she didnt have enough blankets this bay stocker offer additional blankets and patient refused then later asked therapy for warm blankets. patient also stated that she has been laying on her deep pressure sore for a long time this bay stocker stated that she would turn patient and instucted patient to use call light when ever necessary to ask for help .
[2021-05-13] MEDS: Menthol/Lanolin/Calamine/Znox 113 GM Tube 1 APPLIC TOPICAL ×3 (09:57→23:16)
[2021-05-13] MEDS: Gabapentin 300 MG Capsule PO ×3 (09:57→17:13)
[2021-05-13] MEDS: Nystatin Powder 15gm Bottle 1 APPLIC TOPICAL ×2 (09:57→17:15)
[2021-05-13] MEDS: Collagenase 30gm Tube 1 APPLIC TOPICAL (09:58)
[2021-05-13] MEDS: Multivitamins,Ther W-Minerals Tablet 1 TABLET PO (09:59)
[2021-05-13] MEDS: Juven (unflavored) Packet 1 PACKET PO ×2 (09:59→17:13)
[2021-05-13] MEDS: Aspirin E.C. 81 MG Tablet PO (09:59)
[2021-05-13] MEDS: Tuberculin,Purif.prot.deriv. 50 TU/ML Vial 0.1 ML ID (10:24)
--- NOTE | 2021-05-13 10:36 | NURSING ---
Spouse notified of pt having to be moved to a different room and the reason why. Spouse stated that his had already spoke to him about it.
[2021-05-13] MEDS: Acetaminophen 500 MG Tablet 1000 MG PO (23:17)
[2021-05-13] MEDS: MELATONIN 3 MG TABLET PO (23:17)
[2021-05-13] MEDS: Atorvastatin Calcium 40 MG Tablet PO (23:18)
[2021-05-14 07:41] VITALS: BP 113/67; PULSE 84
[2021-05-14] MEDS: APIXABAN 5 MG TABLET PO (07:41)
[2021-05-14] MEDS: Metoprolol Tartrate 50 MG Tablet PO ×2 (07:41→12:24)
[2021-05-14] MEDS: Amiodarone 200 MG Tablet 400 MG PO (07:41)
[2021-05-14] MEDS: Lisinopril 5 MG Tablet PO (07:42)
[2021-05-14] MEDS: Juven (unflavored) Packet 1 PACKET PO (07:43)
[2021-05-14] MEDS: Menthol/Lanolin/Calamine/Znox 113 GM Tube 1 APPLIC TOPICAL ×2 (07:44→12:24)
[2021-05-14] MEDS: Gabapentin 300 MG Capsule PO ×2 (07:44→12:24)
[2021-05-14] MEDS: Aspirin E.C. 81 MG Tablet PO (07:44)
[2021-05-14] MEDS: Multivitamins,Ther W-Minerals Tablet 1 TABLET PO (07:44)
[2021-05-14] MEDS: Nystatin Powder 15gm Bottle 1 APPLIC TOPICAL (07:44)
[2021-05-14] MEDS: Collagenase 30gm Tube 1 APPLIC TOPICAL (07:45)
[2021-05-14 12:24] VITALS: PULSE 81
[2021-05-14 13:08] VITALS: BP 144/67; PULSE 80; RESP 16; TEMP 36.5; O2SAT 99
[2021-05-14 14:49] VITALS: TEMP 39.4
--- NOTE | 2021-05-14 14:50 | NURSING ---
Notified Dr. Menendez of patients current status and temperature. Received order to send pt to ED.
[2021-05-14] MEDS: Acetaminophen 500 MG Tablet 1000 MG PO (14:52)
--- NOTE | 2021-05-14 14:52 | NURSING ---
Report called to ED. Received permission to bring pt down. Family in room and are aware.
[2021-05-14 14:54] VITALS: BP 118/62; PULSE 107; RESP 18; O2SAT 95
--- NOTE | 2021-05-14 15:00 | NURSING ---
pt transported to ED by RN and AGRONOMY INSTRUCTOR.
--- NOTE | 2021-05-14 15:14 | NURSING ---
Verbal report given to PADMINI Andrade in ER. pt's family at bedside in ER.
--- NOTE | 2021-05-14 20:44 | NURSING ---
Family here cleaning patient's stuff out of room #17. Patient has been admitted to ICU from the ER.
--- NOTE | 2021-05-14 20:53 | NURSING ---
Paged Dr. Menendez with return phone call within minutes. Updated pt admitted to ICU w/ Sepsis.
--- NOTE | 2021-05-15 07:34 | PCM.DC.SUM ---
Providers Date of Admission: 05/05/21 Primary Care Physician: Dr. Brice Fulton MD Consultations 05/05/21 23:26 Consult: Onc/Wound/lab specialist Routine Comment: Reason for Consult:: WOUND TO COCCYX 05/05/21 23:43 Consult: Oncology/Hematology Routine Consulting Provider: Aric Polo Reason for Consult: Epidural mass. EMERGENT Consult: No MD Notified: Yes Date Notified: 05/08/21 Time Notified: 10:54 Method of Notification: Answering Service 05/09/21 17:34 Consult: Plastic Surgery Routine Consulting Provider: Brice Maciel Reason for Consult: Sacral ulcer debridement. EMERGENT Consult: No MD Notified: Yes Date Notified: 05/10/21 Time Notified: 10:48 Method of Notification: Answering Service Reason For Visit: AFIB WITH RVR Diagnosis Discharge Diagnosis (1) Diffuse large B-cell lymphoma: Status: Acute Code(s): C83.30 - Diffuse large B-cell lymphoma, unspecified site Qualifiers: Lymphoma site: extranodal excluding spleen and other solid organs Qualified Code(s): C83.39 - Diffuse large B-cell lymphoma, extranodal and solid organ sites (2) Paraplegia: Status: Acute Code(s): G82.20 - Paraplegia, unspecified (3) Debility: Status: Acute Code(s): R53.81 - Other malaise (4) Pressure ulcer of sacral region, unstageable: Status: Acute Code(s): L89.150 - Pressure ulcer of sacral region, unstageable (5) Skin necrosis: Status: Acute Code(s): I96 - Gangrene, not elsewhere classified Medications at Discharge Home Medications acetaminophen 500 mg tablet 1,000 mg PO Q6H PRN tab 05/08/21 apixaban 5 mg tablet 5 mg PO BID 05/08/21 atorvastatin 40 mg tablet 40 mg PO DAILY 05/08/21 bisacodyl 10 mg rectal suppository 10 mg [place] DAILY PRN 05/08/21 gabapentin 300 mg capsule 300 mg PO TID 05/08/21 lisinopril 5 mg tablet 5 mg PO DAILY 05/08/21 melatonin 3 mg capsule 3 mg PO HS 05/08/21 metoprolol succinate 50 mg tablet,extended release 24 hr 50 mg PO Q6H 05/08/21 polyethylene glycol 3350 17 gram/dose oral powder 17 g PO DAILY 05/08/21 sennosides 8.6 mg capsule 8.6 mg PO BID 05/08/21 amiodarone 400 mg PO DAILY 05/14/21 aspirin 81 mg PO DAILY 05/14/21 multivitamin 1 tab PO DAILY 05/14/21 prochlorperazine maleate [Compazine] 10 mg PO Q6H PRN 05/14/21 Hospital Course Operations None Procedures None Summary of Care Provided Minutes Spent on Discharge: 30 Hospital Course: 75 year old female with below past medical history hospitalized for hypotension secondary to atrial fibrillation with rapid ventricular response, complicated by epidural mass, paraplegia, admitted to TCU with debility, here for rehabilitation, strengthening, prior to discharge home with family. 05/14/2021 Fever 103. 05/14/2021 Discharge to [facility] Emergency Department for evaluation/admission to hospital. Weight / BMI Weight Weight: 80.97 kg Body Mass Index (BMI) 29.7 ABG / Lab / Microbiology Data Result Diagrams: 05/13/21 07:54 05/13/21 07:54 D/C Instructions Discharge Diet: No restrictions Discharge Activity: Return to Normal Activity Weight Bearing Status: No weight bearing Call your doctor if you observe: Fever of 101 or Higher, Inability to urinate, Inability to have a bowel movement, Shortness of breath, Dizziness, Fainting spells, Swelling in the ankles, Chest pain and Uncontrolled pain Additional Instructions: 05/14/2021 Discharge to [facility] Emergency Department for evaluation/admission to hospital. Please Follow Up With: KIMI FLORES When: After hospitalization. Meaningful Use Info Meaningful Use Diagnoses (Choose all that apply): None applicable Discharge Plan Admission Admit Date/Time: 05/05/21 21:25 Primary Reason for Your Visit: Debility Attending Provider: Jarod Menendez Chi Primary Care Provider: Brice Fulton Consulting Providers: Aric Polo ; Brice Maciel Instructions Additional Instructions / Restrictions: 05/14/2021 Discharge to [facility] Emergency Department for evaluation/admission to hospital. Discharge Orders/Prescriptions Prescriptions: Continued acetaminophen [Tylenol Extra Strength] 500 mg tablet 1,000 mg PO Q6H PRN (Reason: Pain) RF: 0 polyethylene glycol 3350 [Miralax] 17 gram/dose powder 17 g PO DAILY RF: 0 senna 8.6 mg capsule 8.6 mg PO BID RF: 0 bisacodyl [Dulcolax (bisacodyl)] 10 mg suppository 10 mg [place] DAILY PRN (Reason: Constipation) RF: 0 Eliquis 5 mg tablet 5 mg PO BID RF: 0 metoprolol succinate 50 mg tablet extended release 24 hr 50 mg PO Q6H RF: 0 lisinopril 5 mg tablet 5 mg PO DAILY RF: 0 atorvastatin 40 mg tablet 40 mg PO DAILY RF: 0 gabapentin 300 mg capsule 300 mg PO TID RF: 0 melatonin 3 mg capsule 3 mg PO HS RF: 0 multivitamin Tablet 1 tab PO DAILY RF: 0 amiodarone 200 mg Tablet 400 mg PO DAILY RF: 0 prochlorperazine maleate [Compazine] 10 mg Tablet 10 mg PO Q6H PRN (Reason: Nausea) RF: 0 aspirin 81 mg Tablet 81 mg PO DAILY RF: 0 Disposition Disposition (needs filled in before D/C Order can be placed): [facility]
--- NOTE | 2021-05-16 12:00 | MDS.RN ---
Information for the mds was obtained from review of the clinical record, interview of resident, staff, and direct observation of resident's care.
== END 2021-05-14 20:15 | disposition short-term general hospital (02) | DRG 841 ==
PROVIDERS: Admitting Provider Family Medicine Geriatric Medicine; PCP Family Medicine; Visit Provider Family Medicine Geriatric Medicine
DX: C83.30 Diffuse large B-cell lymphoma, unspecified site (principal); G82.20 Paraplegia, unspecified; G95.29 Other cord compression; I96 Gangrene, not elsewhere classified; I48.91 Unspecified atrial fibrillation; I25.10 Atherosclerotic heart disease of native coronary artery without angina pectoris; I95.9 Hypotension, unspecified; E78.5 Hyperlipidemia, unspecified; R22.1 Localized swelling, mass and lump, neck; R21 Rash and other nonspecific skin eruption; L89.150 Pressure ulcer of sacral region, unstageable; Z95.1 Presence of aortocoronary bypass graft; Z79.899 Other long term (current) drug therapy; Z79.01 Long term (current) use of anticoagulants; Z79.82 Long term (current) use of aspirin
CPT/HCPCS: 36415; 74018; 80048; 85025; 87635; 97110; 97112; 97162; 97166; 97530; 97535; 97802; U0005; U0003

== ENCOUNTER 2021-05-14 15:08 | Inpatient (IN) | payer OTHER, SELFPAY ==
[2021-05-09 13:54] VITALS: BMI 29.6
[2021-05-14] VITALS (12 sets, daily range): BP systolic 84–120; BP diastolic 38–91; PULSE 87–103; RESP 21–31; TEMP 36.6–39.6; O2SAT 93–100; BMI 31.6
[2021-05-14] MEDS: 0.9% Normal Saline 1,000 ML 1000 ML IV ×2 (15:30→18:10)
--- NOTE | 2021-05-14 15:48 | RAD_ITS ---
STUDY: X-RAY CHEST REASON FOR EXAM: Female, 75 years old. fever TECHNIQUE: AP COMPARISON: None. FINDINGS: Sternal wires and mediastinal surgical clips compatible with prior CABG. EKG leads project over the chest. The lungs are clear and expanded. There is no demonstrated pleural abnormality. Normal size heart. Normal mediastinum and leoncio. Normal visualized pulmonary arteries. There is atherosclerotic tortuosity of the aortic arch and descending thoracic aorta. No acute bony process. There is no demonstrated abnormality of the visualized soft tissue structures of the upper abdomen. RAD/Chest 1 View (Portable) IMPRESSION: No airspace consolidation or pleural effusion. Electronically Signed: Bartolo Krishna MD (Brooks) at 18:06 EDT , Service support ,
--- NOTE | 2021-05-14 15:48 | EKG12_ITS ---
Test Reason : Blood Pressure : / mmHG Vent. Rate : 102 BPM Atrial Rate : 102 BPM P-R Int : 130 ms QRS Dur : 080 ms QT Int : 370 ms P-R-T Axes : 058 002 034 degrees QTc Int : 482 ms Sinus tachycardia Possible Left atrial enlargement Borderline ECG Confirmed by GUERLINE JOHNS, NATASHA ([id number]), editorial cartoonist VANESSA PERES ([id number]) on 05/16/2021 10:32:19 AM Referred By: JOHN/SARAN Confirmed By:NATASHA CUNHA MD
--- NOTE | 2021-05-14 15:52 | EDS_ITS ---
HPI History of Present Illness Chief Complaint: Fever Informant: patient and family Narrative Narrative: Patient presents with fever. She has had extensive medical course recently. 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 She was then found to be in atrial fibrillation. She has had 2 admissions for this. Similar back in March she started with a small sacral decub. It has slowly grown. She was also in here again recently for atrial fibrillation. She was transferred to TCU. Plan was to actually take her back to surgery tomorrow for working on this sacral decub. However, today she developed fevers. She admits she has been hot and cold throughout the night. She denies anything making the symptoms better or worse specifically. She denies urinary symptoms but her sensation may be altered. She denies any cough or trouble breathing or any other sources of infection. Of note, she is on Eliquis. [facility] Medical History Afib Decubitus ulcer Large cell lymphoma Myocardial infarct Paraplegia Home Medications acetaminophen 500 mg tablet 1,000 mg PO Q6H PRN tab 05/08/21 [History Last Taken Unknown] apixaban 5 mg tablet 5 mg PO BID 05/08/21 [History Last Taken Unknown] atorvastatin 40 mg tablet 40 mg PO DAILY 05/08/21 [History Last Taken Unknown] bisacodyl 10 mg rectal suppository 10 mg OK DAILY PRN 05/08/21 [History Last Taken Unknown] gabapentin 300 mg capsule 300 mg PO TID 05/08/21 [History Last Taken Unknown] lisinopril 5 mg tablet 5 mg PO DAILY 05/08/21 [History Last Taken Unknown] melatonin 3 mg capsule 3 mg PO HS 05/08/21 [History Last Taken Unknown] metoprolol succinate 50 mg tablet,extended release 24 hr 50 mg PO Q6H 05/08/21 [History Last Taken Unknown] polyethylene glycol 3350 17 gram/dose oral powder 17 g PO DAILY 05/08/21 [History Last Taken Unknown] sennosides 8.6 mg capsule 8.6 mg PO BID 05/08/21 [History Last Taken Unknown] amiodarone 400 mg PO DAILY 05/14/21 [History Last Taken Unknown] aspirin 81 mg PO DAILY 05/14/21 [History Last Taken Unknown] multivitamin 1 tab PO DAILY 05/14/21 [History Last Taken Unknown] prochlorperazine maleate [Compazine] 10 mg PO Q6H PRN 05/14/21 [History Last Taken Unknown] Allergy/AdvReac Type Severity Reaction Status Date / Time No Known Allergies Allergy Verified 05/08/21 14:20 Family History Father CHF (congestive heart failure) Mother CAD (coronary artery disease) Alzheimer disease Surgical History Hx of CABG S/P cholecystectomy Social History household members: family housing: house number of children: 5 Smoking Status: Never smoker alcohol intake: never substance use type: does not use chris/baptism: Darion ROS ROS ED Constitutional Constitutional ED: Reports chills, fever(s), subjective and sweats Eyes Eyes: Denies blurry vision ENT ENT ED: Denies rhinorrhea Cardiovascular Cardiovascular: Denies chest pain or palpitations Respiratory/Chest Respiratory/Chest: Denies cough, dyspnea or sputum Gastrointestinal Gastrointestinal: Denies abdominal pain, nausea or vomiting Genitourinary Genitourinary ED: Denies dysuria Musculoskeletal Musculoskeletal: Denies myalgias Integumentary Reports other Details: Decubitus. Neurologic Neurologic: Denies headache(s) Allergic/Immunologic Allergic/Immunologic ED: Denies urticaria EXAM Physical Exam Const Vital Signs: 05/14/21 15:11 05/14/21 16:46 05/14/21 17:00 Temperature 103.3 F H 101.3 F H 99.5 F H Temperature Source Oral Axillary Oral Pulse Rate 103 H 98 98 Respiratory Rate 22 H 31 H 24 H Blood Pressure 106/44 L 93/44 L 93/38 L Blood Pressure Mean 64 60 56 Pulse Ox 95 96 99 Oxygen Delivery Method Room Air Room Air Room Air 05/14/21 17:15 05/14/21 18:00 05/14/21 19:00 Temperature 99.5 F H 99.1 F 97.9 F Temperature Source Oral Oral Oral Pulse Rate 93 87 95 Respiratory Rate 30 H 25 H 27 H Blood Pressure 84/52 L 88/48 L 91/41 L Blood Pressure Mean 62 61 57 Pulse Ox 93 95 97 Oxygen Delivery Method Room Air Room Air Room Air Positive well nourished and well developed General Appearance ED: well developed and NAD HEENT Negative for trauma Eyes Negative for EOMs intact bilaterally Neck No supple Chest Wall inspection of chest normal Resp normal respiratory effort and clear to auscultation bilaterally Cardio regular rhythm Rate: tachycardic and other Other Details: Rate is tachycardic at about 103. But it does appear to be in sinus rhythm on the monitor. GI normal to inspection, nondistended, normoactive bowel sounds and non-tender GI Narrative: No tenderness. However, patient sensation decreases as you go below the umbilicus. Palpation: soft Extremity normal to inspection Extremity Narrative: No sensation/motion on lower extremities. This is chronic. General Extremety ED: Negative for edema or tenderness General Extremity: Negative for edema Neuro oriented x3 Neuro Narrative: Sensory and motor deficit below umbilicus area. Chronic. Sensorium / Orientation: alert Sensory Exam: sensory level loss detected Motor Exam: strength abnormal Psych mental status grossly normal Psych Narrative: Patient is actually wide awake alert and appropriate. There is no sign of confusion. Skin Skin Narrative: I will get staff assistance to roll patient over to look at decubitus wound on the back. This is not yet been seen. MDM MDM MDM Narrative Medical decision making narrative: I had materials assistant rolled the patient. She does have a large wound on the sacral area. Its approximately there is some mild erythema. I feel no wound crepitance. Patient's fever is down. She actually looks better. She feels better. She is wide awake alert and appropriate. Despite some soft blood pressure she is very nontoxic looking at this time. We are waiting further results. Count is evaded. Lactate has mild elevation. Urine shows no marked signs of infection. There are a few white cells. There is some nitrites. But she also has an indwelling catheter. I still think her likely source of infection is her sacral decubitus. I discussed case with the hospitalist and she will be admi tted. Lab Data Attestation: I reviewed the patient's lab results. Labs: Laboratory Results - last 24 hr 05/14/21 05/14/21 05/14/21 16:25 16:25 16:25 WBC 16.6 H RBC 4.19 L Hgb 10.5 L Hct 33.1 L MCV 79.0 L MCH 25.1 L MCHC 31.7 L RDW Std Deviation 48.1 H RDW Coeff of Ivory 17.2 H Plt Count 344 MPV 9.6 Immature Gran % (Auto) 0.600 Neut % (Auto) 95.5 H Lymph % (Auto) 1.9 L [place] % (Auto) 1.8 Eos % (Auto) 0.1 Baso % (Auto) 0.1 Absolute Neuts (auto) 15.8 H Absolute Lymphs (auto) 0.32 L Nucleated RBC % 0 Differential Comment COMMENT Platelet Estimate ADEQUATE Anisocytosis 2+ Microcytosis 1+ Sodium 135 L Potassium 4.2 Chloride 103 Carbon Dioxide 26.0 Anion Gap 6 BUN 22 H Creatinine 0.64 Estim Creat Clear Calc 43.07 Est GFR (MDRD) Af Amer 116 Est GFR (MDRD) Non-Af 96 BUN/Creatinine Ratio 34.4 H Glucose 108 H Lactic Acid 2.1 H* Calcium 8.6 Total Bilirubin 0.60 AST 47 H ALT 44 Alkaline Phosphatase 76 Total Protein 6.1 L Albumin 2.0 L Globulin 4.1 Albumin/Globulin Ratio 0.5 L Urine Color Urine Clarity Urine pH Ur Specific [place] Urine Protein Urine Glucose (UA) Urine Ketones Urine Occult Blood Urine Nitrite Urine Bilirubin Urine Urobilinogen Ur Leukocyte Esterase Urine RBC Urine WBC Ur Squamous Epith Cells Urine Bacteria Urine Mucus 05/14/21 18:05 WBC RBC Hgb Hct MCV MCH MCHC RDW Std Deviation RDW Coeff of [place] Plt Count MPV Immature Gran % (Auto) Neut % (Auto) Lymph % (Auto) [place] % (Auto) Eos % (Auto) Baso % (Auto) Absolute Neuts (auto) Absolute Lymphs (auto) Nucleated RBC % Differential Comment Platelet Estimate Anisocytosis Microcytosis Sodium Potassium Chloride Carbon Dioxide Anion Gap BUN Creatinine Estim Creat Clear Calc Est GFR (MDRD) Af Amer Est GFR (MDRD) Non-Af BUN/Creatinine Ratio Glucose Lactic Acid Calcium Total Bilirubin AST ALT Alkaline Phosphatase Total Protein Albumin Globulin Albumin/Globulin Ratio Urine Color Yellow Urine Clarity Sl. Cloudy Urine pH 6.0 Ur Specific [place] 1.005 Urine Protein Negative Urine Glucose (UA) Normal Urine Ketones Negative Urine Occult Blood Negative Urine Nitrite Positive H Urine Bilirubin Negative Urine Urobilinogen Normal Ur Leukocyte Esterase 100 H Urine RBC 0 SEEN Urine WBC 5-10 SEEN Ur Squamous Epith Cells 0-5 SEEN Urine Bacteria 0 SEEN Urine Mucus 0 SEEN Radiography Diagnostic Testing: Radiology Impression Chest X-Ray 05/14/21 15:48 IMPRESSION: No airspace consolidation or pleural effusion. Electronically Signed: Bartolo Krishna MD (Brooks) at 18:06 EDT , Service support , Discharge Plan Triage Chief Complaint: Fever ED Provider: Sravan New Dx/Rx/DC Orders Clinical Impression: Decubitus ulcer, infected Primary Care Provider: Modesto Fulton Disposition Disposition: Acute Care Hospital [facility] Discharge Date/Time: 05/14/21 20:45
[2021-05-14 16:48] LABS: Absolute Lymphocyte Count 0.32 X10^3/uL (0.83-4.51); Absolute Neutrophil Count 15.8 X10^3/uL (2.0-7.7); Basophil# 0.02 X10^3/uL; Basophil% 0.1 % (0-1); Eosinophil# 0.02 X10^3/uL; Eosinophils% 0.1 % (0-5); Hematocrit 33.1 % (37-47); Hemoglobin 10.5 g/dL (12.0-15.0); Lymphocyte # 0.32 X10^3/ul (0.83-4.51); Lymphocyte % 1.9 % (19-41); Mean Corp Hgb Conc 31.7 g/dL (32-36); Mean Corpuscular Hgb 25.1 pg (27.0-32.0); Mean Platelet Vol. 9.6 fl (6.2-12.0); Monocyte% 1.8 % (0-10); NRBC Flagged by Analyzer 0 % (0-5); Neutrophil # 15.83 X10^3/uL (2.7-7.7); Neutrophil % 95.5 % (47-70); POSITIVE DIFFERENTIAL YES; Platelet Count 344 K/mm3 (150-450); RBC Distribution Width CV 17.2 % (11.6-14.6); RBC Distribution Width SD 48.1 fl (35.1-43.9); Red Blood Count 4.19 M/mm3 (4.2-5.4); White Blood Count 16.6 K/mm3 (4.4-11.0)
[2021-05-14 16:52] LABS: Differential Indicated SCAN CRITERIA MET
[2021-05-14 17:19] LABS: ALB/GLOB Ratio 0.5 RATIO (0.9-2.4); AST(SGOT) 47 U/L (15-37); Alanine Aminotransfer ALT/SGPT 44 U/L (13-56); Alkaline Phosphatase 76 U/L (45-117); Anion Gap 6 (5-15); BUN 22 mg/dL (7-18); BUN/Creat Ratio 34.4 RATIO (10-20); Calcium,Total 8.6 mg/dL (8.5-10.1); Chloride 103 mmol/L (98-107); Creatinine, Serum 0.64 mg/dL (0.55-1.02); EST Glomerular Filtration Rate 96 mL/min (>60); Est Glom Filt Rate - Afr Amer 116 mL/min (>60); Estimated Creatinine Clearance 43.07 ml/min; Globulin 4.1 g/dL (2.2-4.2); Glucose 108 mg/dL (74-106); Lactic Acid 2.1 mmol/L (0.4-1.9); Potassium 4.2 mmol/L (3.5-5.1); Protein, Total 6.1 g/dL (6.4-8.2); Sodium Level 135 mmol/L (136-145)
[2021-05-14 17:47] LABS: Platelet Estimate ADEQUATE (ADEQ)
[2021-05-14 17:48] LABS: Anisocytosis 2+
[2021-05-14 17:51] LABS: Microcytosis 1+
[2021-05-14 18:10] LABS: Bacteria 0 SEEN /hpf (None Seen); Mucous, Urine 0 SEEN /hpf (<or=2+); Red Blood Cells-Urine 0 SEEN /hpf (0-5)
[2021-05-14 18:41] LABS: Color, Urine Yellow (Yellow); Glucose, Dipstick Normal (Normal); Ketone-Dipstick Negative (Negative); Leukocyte Esterase-Dipstick 100 /ul (Negative); Nitrite-Dipstick Positive (Negative); Occult Blood-Urine Negative /ul (Negative); Protein-Dipstick Negative (Negative); Specific Gravity, Urine 1.005 (1.002-1.030); Urine Bilirubin Dipstick Negative (Negative); Urine Clarity Sl. Cloudy (Clear); Urine Urobilinogen Normal (Normal)
[2021-05-14 18:56] LABS: Squamous Epithelial Cells - UA 0-5 SEEN /hpf (5-10); White Blood Cells 5-10 SEEN /hpf (0-5)
--- NOTE | 2021-05-14 19:29 | PCM.HP.STD ---
HPI - General HPI Narrative CHRISTOPHER CORONEL, is a 75 F with a significant history of paraplegia; CABG; large B cell lymphoma; atrial fibrillation; and decubitus ulcer who was transferred from the transitional care unit of [facility] [place] to the emergency department of the same hospital for a fever that started on the same day of presentation. Associated with symptoms as chills. She denies any nausea or vomiting. She reports anorexia. Her symptoms has been persistent. Because of her paraplegia she has numbness at her abdomen and downwards. Before she presented to emergency department there was plan to do wound debridement on 05/15/2021. [facility] Medical History Afib Decubitus ulcer Large cell lymphoma Myocardial infarct Paraplegia Home Medications acetaminophen 500 mg tablet 1,000 mg PO Q6H PRN tab 05/08/21 [History Last Taken Unknown] apixaban 5 mg tablet 5 mg PO BID 05/08/21 [History Last Taken Unknown] atorvastatin 40 mg tablet 40 mg PO DAILY 05/08/21 [History Last Taken Unknown] bisacodyl 10 mg rectal suppository 10 mg OR DAILY PRN 05/08/21 [History Last Taken Unknown] gabapentin 300 mg capsule 300 mg PO TID 05/08/21 [History Last Taken Unknown] lisinopril 5 mg tablet 5 mg PO DAILY 05/08/21 [History Last Taken Unknown] melatonin 3 mg capsule 3 mg PO HS 05/08/21 [History Last Taken Unknown] metoprolol succinate 50 mg tablet,extended release 24 hr 50 mg PO Q6H 05/08/21 [History Last Taken Unknown] polyethylene glycol 3350 17 gram/dose oral powder 17 g PO DAILY 05/08/21 [History Last Taken Unknown] sennosides 8.6 mg capsule 8.6 mg PO BID 05/08/21 [History Last Taken Unknown] amiodarone 400 mg PO DAILY 05/14/21 [History Last Taken Unknown] aspirin 81 mg PO DAILY 05/14/21 [History Last Taken Unknown] multivitamin 1 tab PO DAILY 05/14/21 [History Last Taken Unknown] prochlorperazine maleate [Compazine] 10 mg PO Q6H PRN 05/14/21 [History Last Taken Unknown] Allergy/AdvReac Type Severity Reaction Status Date / Time No Known Allergies Allergy Verified 05/08/21 14:20 Family History Father CHF (congestive heart failure) Mother CAD (coronary artery disease) Alzheimer disease Surgical History Hx of CABG S/P cholecystectomy Social History household members: family housing: house number of children: 5 Smoking Status: Never smoker alcohol intake: never substance use type: does not use chris/muslim: Darion ROS ROS Narrative Constitutional: Reports anorexia; fever and chills. Denies change in weight Eyes: Denies blurry vision, change in eye color, change in vision, discharge from eye(s), double vision, erythema, eye pain, loss of vision or other HEENT: Denies abnormal hearing, dysphagia, ear pain, epistaxis, headache(s), hearing loss, nasal congestion, nasal discharge, post nasal drip, sinus pressure, sore throat or other Cardiovascular: Denies chest pain. Denies dyspnea on exertion, orthopnea and paroxysmal nocturnal dyspnea Respiratory/Chest: Denies cough, excessive phlegm production, shortness of breath with exertion and wheezing Gastrointestinal: Denies abdominal pain, coffee ground emesis, constipation, diarrhea, dyspepsia, hematemesis, hematochezia, loose stools, melena, nausea, vomiting or other Genitourinary: Denies burning urination, difficulty urinating, dysuria, hematuria, nocturia, urinary frequency, urinary hesitancy, urinary incontinence, urinary urgency or other Musculoskeletal: Denies arthralgias, back pain, joint pain, joint stiffness, joint swelling, myalgias, neck pain or other Neurologic: Reports numbness at abdomen and downwards. Psychiatric: Denies anxiety, depression, homicidal ideation, suicidal ideation or other Endocrinology: Denies change in body appearance, cold intolerance, excessive sweating, heat intolerance, polydipsia, polyuria or other Hematologic/Lymphatic: Denies anemia, easy bleeding, easy bruising, lymphadenopathy or other Integumentary: Report ulcer on buttocks. Allergic/Immunologic: Denies rhinitis, hives, eczema, asthma or other Vital Signs Vital Signs Vital Signs: 05/14/21 15:11 05/14/21 16:46 05/14/21 17:00 Temperature 103.3 F H 101.3 F H 99.5 F H Temperature Source Oral Axillary Oral Pulse Rate 103 H 98 98 Respiratory Rate 22 H 31 H 24 H Blood Pressure 106/44 L 93/44 L 93/38 L Blood Pressure Mean 64 60 56 Pulse Ox 95 96 99 Oxygen Delivery Method Room Air Room Air Room Air 05/14/21 17:15 05/14/21 18:00 05/14/21 19:00 Temperature 99.5 F H 99.1 F 97.9 F Temperature Source Oral Oral Oral Pulse Rate 93 87 95 Respiratory Rate 30 H 25 H 27 H Blood Pressure 84/52 L 88/48 L 91/41 L Blood Pressure Mean 62 61 57 Pulse Ox 93 95 97 Oxygen Delivery Method Room Air Room Air Room Air Weight Weight: 86.4 kg Body Mass Index (BMI) 31.6 Physical Exam Narrative Physical exam: General: Well-nourished, well-developed, no acute distress Head: Normocephalic, atraumatic, no tenderness Eyes: PERRLA, EOMI ENT, no trauma, moist mucous membranes, no rhinorrhea Neck: Nontender, full range of motion, no spinal tenderness, deformities, step-off CVS: Regular rate and rhythm Respiratory: Tachypnea; clear to auscultation bilaterally, chest wall nontender, no wheezing Abdomen: Soft, nontender, nondistended, normal bowel sounds, no masses : Gutierrez catheter in place Back: Nontender, no CVA tenderness, no midline spinal tenderness, deformities, step-offs Extremities: Nontender full range of motion, no trauma Skin:ulcer on coccyx with dark pigmentation Neuro: Alert, oriented, cranial nerves II through XII grossly intact. Strength in right upper and left upper extremity 5 out of 5. Bilateral lower extremities flaccid. Psychiatry: Normal mood. Normal affect. Not depressed. Not anxious. Results Lab / Micro Data Result Diagrams: 05/14/21 16:25 05/14/21 16:25 Labs: Laboratory Results - last 24 hr 05/14/21 16:25: WBC 16.6 H, RBC 4.19 L, Hgb 10.5 L, Hct 33.1 L, MCV 79.0 L, MCH 25.1 L, MCHC 31.7 L, RDW Std Deviation 48.1 H, RDW Coeff of Ivory 17.2 H, Plt Count 344, MPV 9.6, Immature Gran % (Auto) 0.600, Neut % (Auto) 95.5 H, Lymph % (Auto) 1.9 L, [place] % (Auto) 1.8, Eos % (Auto) 0.1, Baso % (Auto) 0.1, Absolute Neuts (auto) 15.8 H, Absolute Lymphs (auto) 0.32 L, Nucleated RBC % 0, Differential Comment COMMENT, Platelet Estimate ADEQUATE, Anisocytosis 2+, Microcytosis 1+ 05/14/21 16:25: Sodium 135 L, Potassium 4.2, Chloride 103, Carbon Dioxide 26.0, Anion Gap 6, BUN 22 H, Creatinine 0.64, Estim Creat Clear Calc 43.07, Est GFR (MDRD) Af Amer 116, Est GFR (MDRD) Non-Af 96, BUN/Creatinine Ratio 34.4 H, Glucose 108 H, Calcium 8.6, Total Bilirubin 0.60, AST 47 H, ALT 44, Alkaline Phosphatase 76, Total Protein 6.1 L, Albumin 2.0 L, Globulin 4.1, Albumin/Globulin Ratio 0.5 L 05/14/21 16:25: Lactic Acid 2.1 H* 05/14/21 18:05: Urine Color Yellow, Urine Clarity Sl. Cloudy, Urine pH 6.0, Ur Specific [place] 1.005, Urine Protein Negative, Urine Glucose (UA) Normal, Urine Ketones Negative, Urine Occult Blood Negative, Urine Nitrite Positive H, Urine Bilirubin Negative, Urine Urobilinogen Normal, Ur Leukocyte Esterase 100 H, Urine RBC 0 SEEN, Urine WBC 5-10 SEEN, Ur Squamous Epith Cells 0-5 SEEN, Urine Bacteria 0 SEEN, Urine Mucus 0 SEEN Radiology Impression Chest X-Ray 05/14/21 15:48 IMPRESSION: No airspace consolidation or pleural effusion. Electronically Signed: Bartolo Krishna MD (Brooks) at 18:06 EDT , Service support , Assessment & Plan Assessment/Plan (1) Severe sepsis: (2) Decubital ulcer: QUALIFIERS: Pressure injury location: buttock Pressure injury stage: unstageable Laterality: unspecified laterality Qualified Code(s): L89.300 - Pressure ulcer of unspecified buttock, unstageable PLAN: Severe sepsis SIRS criteria: T-max of 103 Fahrenheit; respiratory rate of up to 30; heart rate of up to 107. White count of 16.6 with 95.5% neutrophils. Lactic acid 2.1; trend. Blood culture was obtained at the emergency department; trend. Review of emergency department urinalysis showed urine nitrite positive; leukocyte esterase 100; WBC 5-10; squamous cell 0-5 no urine bacteria. Likely colonization. Urine cultures obtained emergency department; follow. Review of imaging department labs showed urinalysis with positive nitrites and leukocyte Estrace of 100. Urine WBC 5-10 squamous cells 0-5 Impression of chest x-ray: No airspace consolidation or pleural effusion.Chest x-ray was independently interpreted and I agree with radiologist interpretation. Received vancomycin at emergency department. Discussed emergent department doctor to add Zosyn. Vancomycin and Zosyn added inpatient. Received normal saline 30 mL/kg bolus. We will continue maintenance infusion normal saline 100 mL/h. Tylenol for fever Automotive Mechanic consult Plastic surgery consult. Wound care consult Hold home blood pressure medications Trend CBC and BMP Atrial fibrillation Stable Amiodarone continued Hold Eliquis because patient is surgical candidate. Neuropathy Gabapentin continued DVT prophylaxis SCD ordered. Charges/Coding Visit Charges Inpatient E&M: 84433 Init Hosp L3
[2021-05-14 20:35] LABS: Reflex Lactate? Y
[2021-05-14 21:36] LABS: Lactic Acid 1.5 mmol/L (0.4-1.9)
--- NOTE | 2021-05-14 21:36 | PCM.RX.CS ---
Consult Pharmacy has been consulted to manage selected antiobiotic: Vancomycin Type of Consult: New start Suspected Infection: Sepsis, Skin/Soft tissue Prior Doses of Antibiotics Received/Current Regimen: Medications Vancomycin HCl () 500 mg in 100 mls @ 100 mls/hr IV Q12H AMISH Discontinued Medications Vancomycin HCl 1,250 mg/ (Sodium Chloride) 275 mls @ 167 mls/hr IV X1 ONE Stop: 05/14/21 17:38 Last Admin: 05/14/21 19:00 Dose: Infused Labs: Sodium 135 mmol/L (136-145) L 05/14/21 16:25 Potassium 4.2 mmol/L (3.5-5.1) 05/14/21 16:25 Chloride 103 mmol/L (98-107) 05/14/21 16:25 Carbon Dioxide 26.0 mmol/L (21.0-32.0) 05/14/21 16:25 Anion Gap 6 (5-15) 05/14/21 16:25 BUN 22 mg/dL (7-18) H 05/14/21 16:25 Creatinine 0.64 mg/dL (0.55-1.02) 05/14/21 16:25 Est GFR (MDRD) Af Amer 116 mL/min (>60) 05/14/21 16:25 Est GFR (MDRD) Non-Af 96 mL/min (>60) 05/14/21 16:25 BUN/Creatinine Ratio 34.4 RATIO (10-20) H 05/14/21 16:25 Glucose 108 mg/dL (74-106) H 05/14/21 16:25 Weight used for dosin.1 kg Estimated Creatinine Clearance: 43 Goal Trough: 15-20 mcg/mL Pharmacy Plan for Drug Dosing: Pharmacy Service will continue to monitor and adjust dosing as required. Follow-Up Labs: Trough Vancomycin Labs to be done on [date and time ordered]: 05/16/21 @5557
[2021-05-14] MEDS: Atorvastatin Calcium 40 MG Tablet PO (21:46)
[2021-05-14] MEDS: Senna Tablet 1 TABLET PO (21:46)
[2021-05-14] MEDS: Gabapentin 300 MG Capsule PO (21:46)
[2021-05-14] MEDS: MELATONIN 3 MG TABLET PO (21:46)
[2021-05-14] MEDS: 0.9% Normal Saline 1,000 ML 100 ML IV (21:47)
[2021-05-15] VITALS (20 sets, daily range): BP systolic 92–133; BP diastolic 41–68; PULSE 82–99; RESP 12–28; TEMP 36.4–37; O2SAT 94–100; BMI 31.3
--- NOTE | 2021-05-15 | PRES_PTH ---
PATIENT: CHRISTOPHER CORONEL LOC: [facility] U#:[id number] AGE/SX: 75/F ROOM: [facility] RE05/14/[address]: Dr. Tim Gomez MD : 1945 BED: 1 DIS: 05/19/2021 SPEC #: [id number] RECD: 05/15/21 13:23 STATUS: WALLACE REQ #: [id number] JAIMEE: 05/15/21 00:[address]: Brice Maciel DEPT: SURGICAL PATHOLOGY RECD BY: Shaun Castle ENTERED: 05/16/21 08:46 SP TYPE: PRESS SORE OTHR DR: DO Dr. Tim Hickman MD Dr. Joseph Agyepong, MD Dr. James A Slaby, MD Dr. Robert Leininger, MD Dr. Scott Brown, MD Tissues: A - Sacral region B - Sacral region Procedures: Decalcification bone/plaque Surgery Specimen Level IV Comments: @ Ordering doctor for DEC edited from to @ by MILLICENT at 05/16/21920 @ Ordering doctor for SUIV edited from to @ by MILLICENT at 05/16/21920 @ Submitting doctor edited from to DR.[email or web address] Cole by MILLICENT at 05/16/21920 HEADER OPERATION: Excision, necrotic sacral pressure sore PRE-OP DIAGNOSIS: Pressure ulcer of sacral region TISSUE SUBMITTED: A ? Sacral pressure sore soft tissue, B ? Sacral pressure sore bone MICROSCOPIC DIAGNOSIS A. Sacral pressure sore soft tissue, excision: Pieces of skin with underlying tissue with ulceration, fat necrosis and acute inflammation. B. Sacral pressure sore bone: Pieces of bone with acute osteomyelitis. SJ:jeison 05/19/2021 MICROSCOPIC DESCRIPTION Slides are reviewed. GROSS DESCRIPTION A - Received in fixative is one container labeled with the patient's name and designated sacral pressure sore soft tissue. The specimen consists of a piece of skin with underlying tissue measuring 6 x 6 cm and up to 3 cm in depth. Also present in the container are three variably pieces of skin with soft tissue measuring in aggregate 7.5 x 3.5 x 2 cm. The skin surface shows an extensive of ulceration. Braiding Machine Tender sections are submitted in two cassettes. B - Received in fixative is one container labeled with the patient's name and designated sacral pressure sore bone. The specimen consists of multiple pieces of bone that in aggregate measure 2.5 x 2 x 0.4 cm. The largest piece of bone measures 1.5 x 1 x 1.4 cm. The entire specimen is submitted in two cassettes after decalcification. / FELIX:jeison 05/16/21 TC:2 CPT: 10523 x2, 19699
[2021-05-15] MEDS: Vancomycin IV 500 MG/100 ML BAG 100 MG IV ×2 (04:24→17:43)
[2021-05-15] MEDS: Gabapentin 300 MG Capsule PO ×3 (06:39→21:00)
[2021-05-15 06:53] LABS: Absolute Lymphocyte Count 1.08 X10^3/uL (0.83-4.51); Absolute Neutrophil Count 22.6 X10^3/uL (2.0-7.7); Basophil# 0.06 X10^3/uL; Basophil% 0.2 % (0-1); Eosinophil# 0.11 X10^3/uL; Eosinophils% 0.4 % (0-5); Hematocrit 30.9 % (37-47); Hemoglobin 9.4 g/dL (12.0-15.0); Lymphocyte # 1.08 X10^3/ul (0.83-4.51); Lymphocyte % 4.2 % (19-41); Mean Corp Hgb Conc 30.4 g/dL (32-36); Mean Corpuscular Hgb 24.9 pg (27.0-32.0); Mean Corpuscular Volume 81.7 fL (81-99); Mean Platelet Vol. 9.4 fl (6.2-12.0); Monocyte# 1.51 X10^3/uL; Monocyte% 5.9 % (0-10); NRBC Flagged by Analyzer 0 % (0-5); Neutrophil # 22.56 X10^3/uL (2.7-7.7); Neutrophil % 88.4 % (47-70); POSITIVE DIFFERENTIAL YES; Platelet Count 306 K/mm3 (150-450); RBC Distribution Width CV 17.2 % (11.6-14.6); RBC Distribution Width SD 50.6 fl (35.1-43.9); Red Blood Count 3.78 M/mm3 (4.2-5.4); White Blood Count 25.6 K/mm3 (4.4-11.0)
[2021-05-15 06:55] LABS: Differential Indicated SCAN CRITERIA MET
--- NOTE | 2021-05-15 06:58 | CON.PCM.CC_ITS ---
Assessment & Plan Assessment/Plan (1) Severe sepsis: PLAN: RECOMMENDATIONS: 1. Continue broad-spectrum antimicrobials, pending infectious work-up. 2. Fluid resuscitation is adequate. 3. Tentative plans for surgical intervention by plastic surgery. 4. Encourage incentive spirometer use while in bed. IMPRESSIONS: 1. Severe sepsis Concern for infected decubitus ulcer versus urinary tract source of infection with secondary hematogenous spread. The patient is on appropriate antimicrobials at this time. She has been fluid resuscitated and is hemodynamically stable, as of this morning. Plan to continue current supportive measures. There are plans for surgical debridement later this afternoon by plastic surgery. Continue local wound care. 2. Diffuse large B-cell lymphoma Continue outpatient management per radiation oncology. 3. History of coronary artery disease status post CABG/atrial fibrillation/hyperlipidemia/hypertension Complicates care, management, recovery and prognosis. Hold home antihypertensives for now. This note was generated with [employer] dictation software. It may contain incorrect words, spelling, and punctuation that were not noted in checking the note before signing. HPI Consult Data Date of Consult: 05/16/21 HPI Narrative Reason for Consultation: Severe sepsis HPI Narrative: The patient is a 75-year-old female, with a history as outlined below, who presented to the emergency department from the transitional care unit on May 14 with chills and fever. The patient had initially been admitted to the transitional care unit on May 05 after being admitted to [facility] with hypotension. Previously in February 2021 the patient underwent a biopsy of an epidural mass which was causing spinal cord compression and was subsequently found to have diffuse large B-cell lymphoma. The patient was evaluated by oncology at [facility] and was started on chemotherapy in March 2021. She then followed up at the beginning of April with her medical oncologist who discontinued her systemic chemotherapy due to declining performance status. There were tentative plans for the patient to proceed with radiation therapy to the laminectomy bed. The patient was also noted to have a sacral decubitus ulcer, for which plastic surgery was consulted to evaluate the patient. It does appear that the patient was febrile to 103.3 ?F on the afternoon of May 14. The patient has also demonstrated some tenuous hemodynamics and tachypnea. Laboratory evaluation revealed an elevated white blood cell count this morning to 25,000. Chemistry profile was unrevealing. Lactate was elevated to 2.1. Urine analysis was positive for nitrites and leukocyte esterase. Chest x-ray demonstrated no acute cardiopulmonary process. The patient received supplemental IV fluid hydration and was started on broad-spectrum antimicrobials. She was subsequently admitted to the medical intensive care unit for further management. [facility] Medical History Afib Decubitus ulcer Large cell lymphoma Myocardial infarct Paraplegia Home Medications acetaminophen 500 mg tablet 1,000 mg PO Q6H PRN tab 05/08/21 [History Last Taken Unknown] apixaban 5 mg tablet 5 mg PO BID 05/08/21 [History Last Taken Unknown] atorvastatin 40 mg tablet 40 mg PO DAILY 05/08/21 [History Last Taken Unknown] bisacodyl 10 mg rectal suppository 10 mg [place] DAILY PRN 05/08/21 [History Last Taken Unknown] gabapentin 300 mg capsule 300 mg PO TID 05/08/21 [History Last Taken Unknown] lisinopril 5 mg tablet 5 mg PO DAILY 05/08/21 [History Last Taken Unknown] melatonin 3 mg capsule 3 mg PO HS 05/08/21 [History Last Taken Unknown] metoprolol succinate 50 mg tablet,extended release 24 hr 50 mg PO Q6H 05/08/21 [History Last Taken Unknown] polyethylene glycol 3350 17 gram/dose oral powder 17 g PO DAILY 05/08/21 [History Last Taken Unknown] sennosides 8.6 mg capsule 8.6 mg PO BID 05/08/21 [History Last Taken Unknown] amiodarone 400 mg PO DAILY 05/14/21 [History Last Taken Unknown] aspirin 81 mg PO DAILY 05/14/21 [History Last Taken Unknown] multivitamin 1 tab PO DAILY 05/14/21 [History Last Taken Unknown] prochlorperazine maleate [Compazine] 10 mg PO Q6H PRN 05/14/21 [History Last Taken Unknown] Allergy/AdvReac Type Severity Reaction Status Date / Time No Known Allergies Allergy Verified 05/08/21 14:20 Family History Father CHF (congestive heart failure) Mother CAD (coronary artery disease) Alzheimer disease Surgical History Hx of CABG S/P cholecystectomy Social History household members: family housing: house number of children: 5 Smoking Status: Never smoker alcohol intake: never substance use type: does not use chris/amish: Episcopalian ROS Constitutional Constitutional: Reports chills and fever(s) Eyes Eyes: Denies blurry vision or change in vision ENT HEENT: Denies dizziness, epistaxis or headache(s) Cardiovascular Cardiovascular: Denies chest pain, claudication, dizziness or dyspnea Respiratory/Chest Respiratory/Chest: Denies chest tightness, cough or dyspnea Gastrointestinal Gastrointestinal: Denies abdominal pain, diarrhea, nausea or vomiting Genitourinary Genitourinary: Denies difficulty urinating Musculoskeletal Musculoskeletal: Denies arthralgias or back pain Integumentary Integumentary: Reports wounds Neurologic Neurologic: Denies abnormal gait, abnormal speech or confusion Psychiatric Psychiatric: Denies anxiety or depression Endocrine Endocrinology: Denies fatigue or polydipsia Hematologic/Lymphatic Hematologic/Lymphatic: Denies easy bleeding or easy bruising Physical Exam Const alert and no apparent distress General Appearance: cooperative HEENT normocephalic and head/scalp atraumatic Mouth: dry mucous membranes Eyes PERRL, EOMs intact bilaterally and conjunctivae normal Neck supple General: trachea midline Resp normal respiratory effort Auscultation: Negative for rales, rhonchi or wheezes Cardio regular rate and regular rhythm GI normal to inspection, nondistended, normoactive bowel sounds Extremity no clubbing, cyanosis or edema Skin Wounds: wounds noted Neuro oriented x3 and CN's II-XII intact bilaterally Psych cooperative and affect normal Lab / Micro Data Result Diagrams: 05/16/21 03:45 05/16/21 03:45 Labs: Laboratory Results - last 24 hr 05/14/21 16:25: WBC 16.6 H, RBC 4.19 L, Hgb 10.5 L, Hct 33.1 L, MCV 79.0 L, MCH 25.1 L, MCHC 31.7 L, RDW Std Deviation 48.1 H, RDW Coeff of Ivory 17.2 H, Plt Count 344, MPV 9.6, Immature Gran % (Auto) 0.600, Neut % (Auto) 95.5 H, Lymph % (Auto) 1.9 L, [place] % (Auto) 1.8, Eos % (Auto) 0.1, Baso % (Auto) 0.1, Absolute Neuts (auto) 15.8 H, Absolute Lymphs (auto) 0.32 L, Nucleated RBC % 0, Differential Comment COMMENT, Platelet Estimate ADEQUATE, Anisocytosis 2+, Microcytosis 1+ 05/14/21 16:25: Sodium 135 L, Potassium 4.2, Chloride 103, Carbon Dioxide 26.0, Anion Gap 6, BUN 22 H, Creatinine 0.64, Estim Creat Clear Calc 43.07, Est GFR (MDRD) Af Amer 116, Est GFR (MDRD) Non-Af 96, BUN/Creatinine Ratio 34.4 H, Glucose 108 H, Calcium 8.6, Total Bilirubin 0.60, AST 47 H, ALT 44, Alkaline Phosphatase 76, Total Protein 6.1 L, Albumin 2.0 L, Globulin 4.1, Al bumin/Globulin Ratio 0.5 L 05/14/21 16:25: Lactic Acid 2.1 H* 05/14/21 18:05: Urine Color Yellow, Urine Clarity Sl. Cloudy, Urine pH 6.0, Ur Specific [place] 1.005, Urine Protein Negative, Urine Glucose (UA) Normal, Urine Ketones Negative, Urine Occult Blood Negative, Urine Nitrite Positive H, Urine Bilirubin Negative, Urine Urobilinogen Normal, Ur Leukocyte Esterase 100 H, Urine RBC 0 SEEN, Urine WBC 5-10 SEEN, Ur Squamous Epith Cells 0-5 SEEN, Urine Bacteria 0 SEEN, Urine Mucus 0 SEEN 05/14/21 21:01: Lactic Acid 1.5 05/15/21 06:40: WBC 25.6 H, RBC 3.78 L, Hgb 9.4 L, Hct 30.9 L, MCV 81.7, MCH 24.9 L, MCHC 30.4 L, RDW Std Deviation 50.6 H, RDW Coeff of [place] 17.2 H, Plt Count 306, MPV 9.4, Immature Gran % (Auto) 0.900, Neut % (Auto) 88.4 H, Lymph % (Auto) 4.2 L, [place] % (Auto) 5.9, Eos % (Auto) 0.4, Baso % (Auto) 0.2, Absolute Neuts (auto) 22.6 H, Absolute Lymphs (auto) 1.08, Nucleated RBC % 0 Radiology Impression Chest X-Ray 05/14/21 15:48 IMPRESSION: No airspace consolidation or pleural effusion. Electronically Signed: Bartolo Krishna MD (Brooks) at 18:06 EDT , Service support , Charges/Coding Visit Charges Inpatient E&M: 16623 Init Hosp L3
[2021-05-15 07:09] LABS: Anion Gap 4 (5-15); BUN 13 mg/dL (7-18); BUN/Creat Ratio 27.7 RATIO (10-20); Calcium,Total 8.3 mg/dL (8.5-10.1); Chloride 111 mmol/L (98-107); Creatinine, Serum 0.47 mg/dL (0.55-1.02); EST Glomerular Filtration Rate 137 mL/min (>60); Est Glom Filt Rate - Afr Amer 165 mL/min (>60); Estimated Creatinine Clearance 43.07 ml/min; Glucose 101 mg/dL (74-106); Potassium 3.9 mmol/L (3.5-5.1); Sodium Level 141 mmol/L (136-145)
[2021-05-15 07:13] LABS: Differential Comment SCANNED; Hypochromasia 1+; Platelet Estimate A (ADEQ)
[2021-05-15] MEDS: 0.9% Normal Saline 1,000 ML 100 ML IV ×3 (07:53→23:45)
[2021-05-15] MEDS: Amiodarone 200 MG Tablet 400 MG PO (07:54)
--- NOTE | 2021-05-15 09:38 | PN.HOSP_ITS ---
Subjective Subjective Patient is a 75-year-old lady with with paraplegia, decubitus ulcer who was transferred from the transitional care unit to the ED on account of fever. An assessment of severe sepsis secondary to infected decubitus ulcer as well as suspected UTI made admitted to the intensive care unit for further management Objective Data Objective Data Vital Signs: Vital Signs Temp Pulse Resp BP Pulse Ox 97.6 F L 91 19 H 126/65 H 98 05/15/21 09:00 05/15/21 09:00 05/15/21 09:00 05/15/21 09:00 05/15/21 09:00 Oxygen Flow Rate (L/min) 2 Oxygen Delivery Method Room Air Weight: 85.2 kg Body Mass Index (BMI) 31.6 Intake & Output: Intake and Output for Last 24 Hours 05/13/21 05/14/21 05/15/21 23:59 23:59 23:59 Intake Total 2983 / 2983 1156 / 1156 Output Total 625 / 1125 950 / 950 Balance 2358 / 1858 206 / 206 Lab / Micro Data Result Diagrams: 05/15/21 06:40 05/15/21 06:40 Labs: Laboratory Results - last 24 hr 05/14/21 16:25: WBC 16.6 H, RBC 4.19 L, Hgb 10.5 L, Hct 33.1 L, MCV 79.0 L, MCH 25.1 L, MCHC 31.7 L, RDW Std Deviation 48.1 H, RDW Coeff of Ivory 17.2 H, Plt Count 344, MPV 9.6, Immature Gran % (Auto) 0.600, Neut % (Auto) 95.5 H, Lymph % (Auto) 1.9 L, [place] % (Auto) 1.8, Eos % (Auto) 0.1, Baso % (Auto) 0.1, Absolute Neuts (auto) 15.8 H, Absolute Lymphs (auto) 0.32 L, Nucleated RBC % 0, Differential Comment COMMENT, Platelet Estimate ADEQUATE, Anisocytosis 2+, Microcytosis 1+ 05/14/21 16:25: Sodium 135 L, Potassium 4.2, Chloride 103, Carbon Dioxide 26.0, Anion Gap 6, BUN 22 H, Creatinine 0.64, Estim Creat Clear Calc 43.07, Est GFR (MDRD) Af Amer 116, Est GFR (MDRD) Non-Af 96, BUN/Creatinine Ratio 34.4 H, Glucose 108 H, Calcium 8.6, Total Bilirubin 0.60, AST 47 H, ALT 44, Alkaline Phosphatase 76, Total Protein 6.1 L, Albumin 2.0 L, Globulin 4.1, Albumin/Globulin Ratio 0.5 L 05/14/21 16:25: Lactic Acid 2.1 H* 05/14/21 18:05: Urine Color Yellow, Urine Clarity Sl. Cloudy, Urine pH 6.0, Ur Specific [place] 1.005, Urine Protein Negative, Urine Glucose (UA) Normal, Urine Ketones Negative, Urine Occult Blood Negative, Urine Nitrite Positive H, Urine Bilirubin Negative, Urine Urobilinogen Normal, Ur Leukocyte Esterase 100 H, Urine RBC 0 SEEN, Urine WBC 5-10 SEEN, Ur Squamous Epith Cells 0-5 SEEN, Urine Bacteria 0 SEEN, Urine Mucus 0 SEEN 05/14/21 21:01: Lactic Acid 1.5 05/15/21 06:40: WBC 25.6 H, RBC 3.78 L, Hgb 9.4 L, Hct 30.9 L, MCV 81.7, MCH 24.9 L, MCHC 30.4 L, RDW Std Deviation 50.6 H, RDW Coeff of [place] 17.2 H, Plt Co unt 306, MPV 9.4, Immature Gran % (Auto) 0.900, Neut % (Auto) 88.4 H, Lymph % (Auto) 4.2 L, [place] % (Auto) 5.9, Eos % (Auto) 0.4, Baso % (Auto) 0.2, Absolute Neuts (auto) 22.6 H, Absolute Lymphs (auto) 1.08, Nucleated RBC % 0, Diffe rential Comment SCANNED, Diff Path Review February milagro, Platelet Estimate A, Hypochromasia 1+ 05/15/21 06:40: Sodium 141, Potassium 3.9, Chloride 111 H, Carbon Dioxide 26.0, Anion Gap 4 L, BUN 13, Creatinine 0.47 L, Estim Creat Clear Calc 43.07, Est GFR (MDRD) Af Amer 165, Est GFR (MDRD) Non-Af 137, BUN/Creatinine Ratio 27.7 H, Glucose 101, Calcium 8.3 L Micro: Microbiology 05/14/21 16:13 Blood Culture (Wb) - Right Forearm Blood Culture - Preliminary 05/14/21 16:25 Blood Culture (Wb) - Anticubital Left Blood Culture - Preliminary Radiography Diagnostic Testing: Radiology Impression Chest X-Ray 05/14/21 15:48 IMPRESSION: No airspace consolidation or pleural effusion. Electronically Signed: Bartolo Krishna MD (Brooks) at 18:06 EDT , Service support , Physical Exam Narrative GENERAL: cooperative HEENT: Atraumatic; EYES; Anicteric, Normal Conjunctiva NECK; supple, normal thyroid, RESPIRATORY: Diminished to auscultation CARDIOVASCULAR: Regular S1 S2, GI: soft, normoactive bowel sounds, : No Renal angle tenderness; EXTREMITIES: No edema, no clubbing, MUSCULOSKELETAL: no muscle waisting NEURO: Awake; no lateralizing signs. SKIN: Sacral decubitus ulcer PSYCH; Flat affect Assessment & Plan Assessment/Plan (1) Severe sepsis: (2) Decubital ulcer: QUALIFIERS: Laterality: unspecified laterality Pressure injury location: buttock Pressure injury stage: unstageable Qualified Code(s): L89.300 - Pressure ulcer of unspecified buttock, unstageable PLAN: Patient is a 75-year-old lady with with paraplegia, decubitus ulcer who was transferred from the transitional care unit to the ED on account of fe r. An assessment of severe sepsis secondary to infected decubitus ulcer as well as suspected UTI made admitted to the intensive care unit for further management 1. Severe sepsis - secondary to infected decubitus ulcer as well as suspected UTI made admitted to the intensive care unit for further management. Patient started on IV fluid resuscitation per protocol broad-spectrum antibiotic therapy with Vanco and Zosyn after cultures have been sent. Patient blood cultures so far positive for gram-negative rods and gram-positive cocci in pairs and chains. Urine cultures positive for gram-negative rods.. Patient WBC count trending up. Consult placed to Dr. Maciel as well as infectious disease 2. 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 Patient was added to the transitional care unit undergoing rehab 3. Coronary artery disease -status post CABG 4. Large B-cell lymphoma - per Hx 5. Paroxysmal A. fib ?Rate controlled with amiodarone, on systemic anticoagulation with Eliquis which is currently being held in view of anticipation of patient surgical debridement. 6. Neuropathy Gabapentin continued 7. DVT prophylaxis SCD ordered. Charges/Coding Visit Charges Inpatient E&M: 23606 Subs Hosp L3
--- NOTE | 2021-05-15 10:12 | CON.PCM_ITS ---
Consult Date of Consult: 05/15/21 HPI Consult Data Date of Consult: 05/11/21 PCP / Referring MD: Dr. Menendez. Attending Care Provider: Dr. Jarod Menendez MD HPI Narrative Reason for Consultation: Sacral pressure sore with skin necrosis. HPI Narrative: CHRISTOPHER CORONEL, is a 75 Female with history of diffuse large B-cell lymphoma,who had emergency evacuation, biopsy of epidural mass causing T4-T7 spinal cord compression. She has progressive paraplegia. She came to TCU for acute rehab for this progressive paraplegia. Her WBC was 11.8. She is scheduled for chemotherapy and radiation therapy. The radiation therapy is set to begin later next week. In the meantime, it was noted she has a worsening sacral pressure sore with skin necrosis. I was asked to evaluate this patient for surgical options for treatment. PFSH no medical history (Atrial fibrillation. CAD. Paraplegia. Diffuse large B- cell lymphoma. Debility.) Home Medications acetaminophen 500 mg tablet 1,000 mg PO Q6H PRN tab 05/08/21 [History Last Taken Unknown] apixaban 5 mg tablet 5 mg PO BID 05/08/21 [History Last Taken Unknown] atorvastatin 40 mg tablet 40 mg PO DAILY 05/08/21 [History Last Taken Unknown] bisacodyl 10 mg rectal suppository 10 mg [place] DAILY PRN 05/08/21 [History Last Taken Unknown] cefdinir 300 mg capsule 300 mg PO Q12H 05/08/21 [History Last Taken Unknown] gabapentin 300 mg capsule 300 mg PO TID 05/08/21 [History Last Taken Unknown] lisinopril 5 mg tablet 5 mg PO DAILY 05/08/21 [History Last Taken Unknown] melatonin 3 mg capsule 3 mg PO HS PRN 05/08/21 [History Last Taken Unknown] metoprolol succinate 50 mg tablet,extended release 24 hr 50 mg PO BID 05/08/21 [History Last Taken Unknown] oxycodone 5 mg capsule 5 mg PO Q4H PRN 05/08/21 [History Last Taken Unknown] polyethylene glycol 3350 17 gram/dose oral powder 17 g PO DAILY 05/08/21 [History Last Taken Unknown] sennosides 8.6 mg capsule 8.6 mg PO BID 05/08/21 [History Last Taken Unknown] Allergy/AdvReac Type Severity Reaction Status Date / Time No Known Allergies Allergy Verified 05/08/21 14:20 Family History Father CHF (congestive heart failure) Mother CAD (coronary artery disease) Alzheimer disease Surgical History Hx of CABG S/P cholecystectomy Social History household members: family housing: house number of children: 5 Smoking Status: Never smoker alcohol intake: never substance use type: does not use 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 Eyes - Denies cataracts and glaucoma. ENT - Denies nasal congestion and sore throat. Endocrine - Denies excessive thirst and urination. Skin - Denies suspicious lesions and skin cancer. Musculoskeletal - Denies joint pain, joint stiffness, weakness of muscles and j oints, back pain, and arthritis. Neuro - Denies headaches. Cardiovascular - Denies chest pain, fatigue, and shortness of breath with exertion. Psych - Denies anxiety and depression. Respiratory - Denies chronic cough and shortness of breath. Gastrointestinal - Denies nausea, vomiting, diarrhea, and constipation. Hematologic - Denies abnormal bruising and bleeding. Genitourinary - Denies hematuria and urinary frequency. Physical Exam Narrative PHYSICAL EXAMINATION General - Alert and Oriented. HEENT - PERRL. EOMI. Throat is clear. Neck - Supple and nontender. No cervical adenopathy. Lungs - Clear to auscultation. Heart - Regular rate and rhythm. Abdomen - Soft and nondistended. Extremities - FROM. No axillary adenopathy. Radial pulses are palpable. Lower back - There is a sacral pressure sore with overlying skin necrosis. No purulent drainage. It is unstageable at the present time because of the skin necrosis. Suspect a Stage III-IV pressure sore after excision in the operating room. Measures 8 cm with surrounding periwound redness. Nontender. Neuro - CN II-XII grossly intact. Has paraplegia at T7. Psych - Normal mood and affect. Lab / Micro Data Attestation: I reviewed the patient's lab results. Result Diagrams: 05/13/21 07:54 document embedded image 05/13/21 07:54 document embedded image Procedure Criteria Type of Procedure Procedure Type: Elective Elective Risks - COVID COVID Risk Discussion: The surgeon/proceduralist and patient have discussed in detail the risk of exposure to and/or potential harm posed by the COVID-19 virus with having a surgery/procedure at this time versus the risk of delaying the surgery/procedure. It is not possible to know either the risk of delaying the surgery or procedure or chance of getting an infection with perfect accuracy, but a joint decision was made between the patient and the surgeon/proceduralist to proceed at this time with the scheduled surgery/procedure as indicated on the consent form. Charges/Coding Visit Charges Inpatient E&M: 32914 Init Hosp L2 (ICD-10 - L89.150, I96, C83.30, G82.20, R53.81)
--- NOTE | 2021-05-15 11:04 | NURSING ---
wound photo: sacrum
--- NOTE | 2021-05-15 11:30 | CASEMGMT ---
Patient came from [facility] T[facility]. SW will follow for d/c back to TCU. Maribel ABREU
[2021-05-15] MEDS: Lidocaine 1% /Epi 1:100 (50ml) 50 ML VIAL (12:37)
--- NOTE | 2021-05-15 13:16 | PCM.OPRPT ---
Report of Operation Date of Procedure: 05/15/21 Pre-Operative Diagnosis: 1. Sacral pressure sore, unstageable, with skin necrosis. 2. Diffuse large B-cell lymphoma. 3. Paraplegia. 4. Debility. Post-Operative Diagnosis: 1. Sacral pressure sore, Stage IV, with skin, muscle, and bone necrosis. 2. Osteomyelitis. 3. Diffuse large B-cell lymphoma. 4. Paraplegia. 5. Debility. Surgery/Procedure Performed:: Excision necrotic sacral pressure sore, Stage IV, with partial ostectomy for osteomyelitis. 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 She has progressive paraplegia. She came to TCU for acute rehab for this progressive paraplegia. Her WBC was 11.8. She is scheduled for chemotherapy and radiation therapy. The radiation therapy is set to begin later next week. In the meantime, it was noted she has a worsening sacral pressure sore with skin necrosis. I was asked to evaluate this patient for surgical options for treatment. Patient was informed of the risks and complications of the procedure including alternatives to surgery. These were discussed with the patient personally. Patient voices understanding and wishes to proceed. Size of sacral defect - 11 x 10 x 3 cm Distance of sacral pressure sore to anal opening - 5 cm. Surgeon: Brice Maciel hvac sales representative: None Type of Anesthesia: Local MAC (xylocaine with epinephrine and IV sedation.) Specimen's removed: 1. Sacral pressure sore, soft tissue, to Pathology and Microbiology. 2. Sacral pressure sore, bone, to Pathology and Microbiology. Drains: None. Estimated Blood Loss (mL): 150. Description of Procedure: Patient was taken to OR in supine position and was given IV sedation. She was placed in the prone position. SCD's were placed for DVT prophylaxis. Perioperative antibiotics were given intravenously. The sacral area was prepped and draped in the usual fashion. Using xylocaine with epinephrine, the sacral pressure sore was infiltrated. After waiting 5 minutes for the anesthetic to take effect, I excised the sacral pressure sore in a circular fashion through subcutaneous tissue and extensive necrotic muscle which extended down to the bone. A partial ostectomy was then performed using rongeurs. The bone looked grayish and necrotic and was soft and mushy. Clinically the bone looked suspicious for osteomyelitis. Specimens from several areas of bone were taken. A rasp was used to smooth out the bony edges. After excising the extensive fat necrosis and muscle necrosis and bone necrosis and abnormal bursal scar tissue, the remaining soft tissue showed good bleeding. Hemostasis was obtained with electrocautery. The size of the sacral pressure sore after excision was 11 x 10 x 3 cm. The wound was irrigated with saline. I then dressed the wound by placing Mepitel nonadherent dressing in the base of the wound followed by Kerlix gauze and Betadine and dry Kerlix gauze followed by ABD pads compression dressing. Half the soft tissue and half the bone was sent to Pathology for analysis to rule out carcinoma and to evaluate for osteomyelitis. Half the soft tissue and half the bone was sent to Microbiology for culture. A positive culture will necessitate antibiotic therapy. If pathology is positive for osteomyelitis, then salvage determiner IV antibiotics would be needed through a PICC line. Patient tolerated the procedure well and was sent to PACU in satisfactory condition. Patient will be sent upstairs for continued postop care. The VAC will be placed tomorrow. Anticipate increased metabolic demands. Will check a Prealbumin and encourage nutritional supplementation with protein to help the healing process. Grafts/Implants Used: None. Complications None. Admit VTE Documentation VTE Present on Admission: No (patient is on Eliquis for atrial fibrillation.) VTE Mechan Device Prophylaxis: SCD's VTE Pharm Prophylaxis ordered?: Yes Addendum Addendum: Surgery Charges CPT - 45520 ICD-10 - L89.154, I96, M86.9, C83.30, G82.20
--- NOTE | 2021-05-15 13:35 | NURSING ---
returned from OR at 1330
[2021-05-15] MEDS: Aspirin 81 MG TAB.CHEW PO (13:40)
--- NOTE | 2021-05-15 13:50 | CON.PCM.ID_ITS ---
Assessment & Plan Assessment/Plan (1) Severe sepsis: PLAN: severe sepsis with GNR bacteremia, (+) ucx, infected sacral ulcer, recent dx DLBCL. On vanc/zosyn, taken to OR today by Dr. Maciel for I&D. Will follow, thank you. Encouraged her to get covid vaccine, she is not interested. (2) Decubitus ulcer, infected: (3) Diffuse large B-cell lymphoma: QUALIFIERS: Lymphoma site: extranodal excluding spleen and other solid organs Qualified Code(s): C83.39 - Diffuse large B-cell lymphoma, extranodal and solid organ sites HPI Consult Data Date of Consult: 05/15/21 HPI Narrative HPI Narrative: CHRISTOPHER CORONEL, is a 75 F who presented from TCU with fever, chills. Recent dx with DLBCL and epidural mass causing cord compression. Developed sacral ulcer. Now admitted to icu, started on vanc/zosyn, taken to OR today for sacral debridement. Otherwise, feeling ok, has not gotten covid vaccine. No n/v/d. Full ROS performed and neg except as noted above. [facility] Medical History Afib Decubitus ulcer Large cell lymphoma Myocardial infarct Paraplegia Home Medications acetaminophen 500 mg tablet 1,000 mg PO Q6H PRN tab 05/08/21 [History Last Taken Unknown] apixaban 5 mg tablet 5 mg PO BID 05/08/21 [History Last Taken Unknown] atorvastatin 40 mg tablet 40 mg PO DAILY 05/08/21 [History Last Taken Unknown] bisacodyl 10 mg rectal suppository 10 mg GA DAILY PRN 05/08/21 [History Last Taken Unknown] gabapentin 300 mg capsule 300 mg PO TID 05/08/21 [History Last Taken Unknown] lisinopril 5 mg tablet 5 mg PO DAILY 05/08/21 [History Last Taken Unknown] melatonin 3 mg capsule 3 mg PO HS 05/08/21 [History Last Taken Unknown] metoprolol succinate 50 mg tablet,extended release 24 hr 50 mg PO Q6H 05/08/21 [History Last Taken Unknown] polyethylene glycol 3350 17 gram/dose oral powder 17 g PO DAILY 05/08/21 [History Last Taken Unknown] sennosides 8.6 mg capsule 8.6 mg PO BID 05/08/21 [History Last Taken Unknown] amiodarone 400 mg PO DAILY 05/14/21 [History Last Taken Unknown] aspirin 81 mg PO DAILY 05/14/21 [History Last Taken Unknown] multivitamin 1 tab PO DAILY 05/14/21 [History Last Taken Unknown] prochlorperazine maleate [Compazine] 10 mg PO Q6H PRN 05/14/21 [History Last Taken Unknown] Allergy/AdvReac Type Severity Reaction Status Date / Time No Known Allergies Allergy Verified 05/08/21 14:20 Family History Father CHF (congestive heart failure) Mother CAD (coronary artery disease) Alzheimer disease Surgical History Hx of CABG S/P cholecystectomy Social History household members: family housing: house number of children: 5 Smoking Status: Never smoker alcohol intake: never substance use type: does not use chris/jehovah's witness: [facility] Physical Exam Const alert and no apparent distress General Appearance: cooperative HEENT head/scalp atraumatic Eyes PERRL and EOMs intact bilaterally Neck supple and No nodes Resp normal air movement and clear to auscultation bilaterally Cardio regular rate and regular rhythm GI normal to inspection, nondistended, normoactive bowel sounds Extremity no clubbing, cyanosis or edema Skin Skin Narrative: reviewed photo Neuro CN's II-XII intact bilaterally Medical Records Data Medical Nutrition Assessment Dietitian: Nutrition Therapy Diagnosis Start: 05/15/21 11:47 Freq: Status: Active Protocol: Document 05/15/21 12:[address] [facility] (Rec: 05/15/21 12:[address] [facility] [id number]) Nutrition Malnutrition Evidence of Malnutrition Exists No Intake Problem Increased Nutrient Needs (specify) Etiology (protein) related to PI Signs/Symptoms as evidenced by PI to sacral decurb requiring debridement Status Active Problem Recommendation Dietitian Recommendations/Changes When medically able, rec diet as tolerated to liberal Regular Rec 120 ml strawberry ensure enlive w/ meals for increased nutrition to help increased nutritional intake Rec Shaan bid w/ medpass for increased nutrition if consumed Lab / Micro Data Result Diagrams: 05/15/21 06:40 05/15/21 06:40 Labs: Laboratory Results - last 24 hr 05/14/21 16:25: WBC 16.6 H, RBC 4.19 L, Hgb 10.5 L, Hct 33.1 L, MCV 79.0 L, MCH 25.1 L, MCHC 31.7 L, RDW Std Deviation 48.1 H, RDW Coeff of Ivory 17.2 H, Plt Count 344, MPV 9.6, Immature Gran % (Auto) 0.600, Neut % (Auto) 95.5 H, Lymph % (Auto) 1.9 L, [place] % (Auto) 1.8, Eos % (Auto) 0.1, Baso % (Auto) 0.1, Absolute Neuts (auto) 15.8 H, Absolute Lymphs (auto) 0.32 L, Nucleated RBC % 0, Differential Comment COMMENT, Platelet Estimate ADEQUATE, Anisocytosis 2+, Microcytosis 1+ 05/14/21 16:25: Sodium 135 L, Potassium 4.2, Chloride 103, Carbon Dioxide 26.0, Anion Gap 6, BUN 22 H, Creatinine 0.64, Estim Creat Clear Calc 43.07, Est GFR (MDRD) Af Amer 116, Est GFR (MDRD) Non-Af 96, BUN/Creatinine Ratio 34.4 H, Glucose 108 H, Calcium 8.6, Total Bilirubin 0.60, AST 47 H, ALT 44, Alkaline Phosphatase 76, Total Protein 6.1 L, Albumin 2.0 L, Globulin 4.1, Albumin/Globulin Ratio 0.5 L 05/14/21 16:25: Lactic Acid 2.1 H* 05/14/21 18:05: Urine Color Yellow, Urine Clarity Sl. Cloudy, Urine pH 6.0, Ur Specific [place] 1.005, Urine Protein Negative, Urine Glucose (UA) Normal, Urine Ketones Negative, Urine Occult Blood Negative, Urine Nitrite Positive H, Urine Bilirubin Negative, Urine Urobilinogen Normal, Ur Leukocyte Esterase 100 H, Urine RBC 0 SEEN, Urine WBC 5-10 SEEN, Ur Squamous Epith Cells 0-5 SEEN, Urine Bacteria 0 SEEN, Urine Mucus 0 SEEN 05/14/21 21:01: Lactic Acid 1.5 05/15/21 06:40: WBC 25.6 H, RBC 3.78 L, Hgb 9.4 L, Hct 30.9 L, MCV 81.7, MCH 24.9 L, MCHC 30.4 L, RDW Std Deviation 50.6 H, RDW Coeff of Ivory 17.2 H, Plt Count 306, MPV 9.4, Immature Gran % (Auto) 0.900, Neut % (Auto) 88.4 H, Lymph % (Auto) 4.2 L, [place] % (Auto) 5.9, Eos % (Auto) 0.4, Baso % (Auto) 0.2, Absolute Neuts (auto) 22.6 H, Absolute Lymphs (auto) 1.08, Nucleated RBC % 0, Differential Comment SCANNED, Diff Path Review February, Platelet Estimate A, Hypochromasia 1+ 05/15/21 06:40: Sodium 141, Potassium 3.9, Chloride 111 H, Carbon Dioxide 26.0, Anion Gap 4 L, BUN 13, Creatinine 0.47 L, Estim Creat Clear Calc 43.07, Est GFR (MDRD) Af Amer 165, Est GFR (MDRD) Non-Af 137, BUN/Creatinine Ratio 27.7 H, Glucose 101, Calcium 8.3 L Micro: Microbiology 05/14/21 18:05 Urine, Clean Catch Urine Culture - Preliminary Gram negative mukesh 05/14/21 16:13 Blood Culture (Wb) - Right Forearm Blood Culture - Preliminary 05/14/21 16:25 Blood Culture (Wb) - Anticubital Left Blood Culture - Preliminary Radiology Impression Chest X-Ray 05/14/21 15:48 IMPRESSION: No airspace consolidation or pleural effusion. Electronically Signed: Bartolo Krishna MD ([place]) at 18:06 EDT , Service support ,
[2021-05-15] MEDS: Atorvastatin Calcium 40 MG Tablet PO (21:00)
[2021-05-15] MEDS: Senna Tablet 1 TABLET PO (21:00)
[2021-05-15] MEDS: MELATONIN 3 MG TABLET PO (21:00)
[2021-05-15] MEDS: Acetaminophen 500 MG Tablet 1000 MG PO (23:48)
[2021-05-16] VITALS (19 sets, daily range): BP systolic 105–179; BP diastolic 59–99; PULSE 83–114; RESP 14–22; TEMP 36.6–37.7; O2SAT 95–99
[2021-05-16 04:52] LABS: Absolute Lymphocyte Count 1.24 X10^3/uL (0.83-4.51); Basophil# 0.02 X10^3/uL; Basophil% 0.2 % (0-1); Eosinophil# 0.22 X10^3/uL; Eosinophils% 1.7 % (0-5); Hematocrit 24.5 % (37-47); Hemoglobin 7.4 g/dL (12.0-15.0); Lymphocyte # 1.24 X10^3/ul (0.83-4.51); Lymphocyte % 9.8 % (19-41); Mean Corp Hgb Conc 30.2 g/dL (32-36); Mean Corpuscular Hgb 24.7 pg (27.0-32.0); Mean Corpuscular Volume 81.9 fL (81-99); Mean Platelet Vol. 9.7 fl (6.2-12.0); Monocyte# 1.17 X10^3/uL; Monocyte% 9.2 % (0-10); NRBC Flagged by Analyzer 0 % (0-5); Neutrophil # 9.95 X10^3/uL (2.7-7.7); Neutrophil % 78.5 % (47-70); Platelet Count 300 K/mm3 (150-450); RBC Distribution Width CV 17.2 % (11.6-14.6); RBC Distribution Width SD 51.2 fl (35.1-43.9); Red Blood Count 2.99 M/mm3 (4.2-5.4); White Blood Count 12.7 K/mm3 (4.4-11.0)
[2021-05-16 05:06] LABS: Anion Gap 6 (5-15); BUN 8 mg/dL (7-18); BUN/Creat Ratio 28.4 RATIO (10-20); Calcium,Total 7.9 mg/dL (8.5-10.1); Chloride 113 mmol/L (98-107); Creatinine, Serum 0.28 mg/dL (0.55-1.02); EST Glomerular Filtration Rate 247 mL/min (>60); Est Glom Filt Rate - Afr Amer 298 mL/min (>60); Estimated Creatinine Clearance 41.33 ml/min; Glucose 84 mg/dL (74-106); Potassium 3.3 mmol/L (3.5-5.1); Sodium Level 143 mmol/L (136-145); Vancomycin, Trough Level 6.2 ug/mL (5.0-15.0)
--- NOTE | 2021-05-16 05:27 | PCM.RX.CS ---
Consult Pharmacy has been consulted to manage selected antiobiotic: Vancomycin Type of Consult: Follow-up Suspected Infection: Sepsis Prior Doses of Antibiotics Received/Current Regimen: Medications Vancomycin HCl 1,500 mg/ (Sodium Chloride) 530 mls @ 250 mls/hr IV Q12H AMISH Discontinued Medications Vancomycin HCl () 500 mg in 100 mls @ 100 mls/hr IV Q12H AMISH Last Admin: 05/15/21 18:43 Dose: Infused Labs: Sodium 143 mmol/L (136-145) 05/16/21 03:45 Potassium 3.3 mmol/L (3.5-5.1) L 05/16/21 03:45 Chloride 113 mmol/L (98-107) H 05/16/21 03:45 Carbon Dioxide 24.0 mmol/L (21.0-32.0) 05/16/21 03:45 Anion Gap 6 (5-15) 05/16/21 03:45 BUN 8 mg/dL (7-18) 05/16/21 03:45 Creatinine 0.28 mg/dL (0.55-1.02) L 05/16/21 03:45 Est GFR (MDRD) Af Amer 298 mL/min (>60) 05/16/21 03:45 Est GFR (MDRD) Non-Af 247 mL/min (>60) 05/16/21 03:45 BUN/Creatinine Ratio 28.4 RATIO (10-20) H 05/16/21 03:45 Glucose 84 mg/dL (74-106) 05/16/21 03:45 Vancomycin Trough 6.2 ug/mL (5.0-15.0) 05/16/21 03:45 Microbiology: Microbiology 05/15/21 Unknown Wound - Buttock Gram Stain - Final 05/14/21 18:05 Urine, Clean Catch Urine Culture - Preliminary Gram negative mukesh 05/14/21 16:13 Blood Culture (Wb) - Right Forearm Blood Culture - Preliminary 05/14/21 16:25 Blood Culture (Wb) - Anticubital Left Blood Culture - Preliminary Weight used for dosin.2 kg Estimated Creatinine Clearance: >100 Goal Trough: 15-20 mcg/mL Pharmacy Plan for Drug Dosing: Vancomycin trough level of 6.2, well below target range of 15-20. Owing to increase in kidney function. Per vanco dosing calculator the dose was increased to 1500mg q12h. Another trough will be taken prior to 4th dose of new regimen. Pharmacy Service will continue to monitor and adjust dosing as required. Follow-Up Labs: Trough Vancomycin Labs to be done on [date and time ordered]: 05/17/21 @1700
[2021-05-16] MEDS: 0.9% Saline Lock 10 ML Syringe IV (05:28)
[2021-05-16] MEDS: Gabapentin 300 MG Capsule PO ×3 (05:35→21:30)
[2021-05-16] MEDS: Amiodarone 200 MG Tablet 400 MG PO (05:35)
--- NOTE | 2021-05-16 07:26 | PN.HOSP_ITS ---
Subjective Subjective Patient underwent Excision necrotic sacral pressure sore, Stage IV, with partial ostectomy for osteomyelitis by Dr. Maciel on 05/15/2021. Patient has significant drop in hemoglobin level 7.4; patient went into A. fib with RVR during the night Objective Data Objective Data Vital Signs: Vital Signs Temp Pulse Resp BP Pulse Ox 98 F 114 H 19 H 136/62 H 98 05/16/21 04:00 05/16/21 04:00 05/16/21 04:00 05/16/21 04:00 05/16/21 04:00 Oxygen Flow Rate (L/min) 2 Oxygen Delivery Method Room Air Weight: 87 kg Body Mass Index (BMI) 31.3 Intake & Output: Intake and Output for Last 24 Hours 05/14/21 05/15/21 05/16/21 23:59 23:59 23:59 Intake Total 2983 / 2983 4414.33 / 4414.33 921.67 / 921.67 Output Total 625 / 1125 1400 / 2250 2049 / 205 Balance 2358 / 1858 3014.33 / 2164.33 -1128.33 / -1128.33 Medical Nutrition Assessment Dietitian: Nutrition Therapy Diagnosis Start: 05/15/21 11:47 Freq: Status: Active Protocol: Document 05/15/21 12:00 [facility] (Rec: 05/15/21 12:00 [facility] [id number]) Nutrition Malnutrition Evidence of Malnutrition Exists No Intake Problem Increased Nutrient Needs (specify) Etiology (protein) related to PI Signs/Symptoms as evidenced by PI to sacral decurb requiring debridement Status Active Problem Recommendation Dietitian Recommendations/Changes When medically able, rec diet as tolerated to liberal Regular Rec 120 ml strawberry ensure enlive w/ meals for increased nutrition to help increased nutritional intake Rec Shaan bid w/ medpass for increased nutrition if consumed Lab / Micro Data Result Diagrams: 05/16/21 03:45 05/16/21 03:45 Labs: Laboratory Results - last 24 hr 05/16/21 03:45: Vancomycin Trough 6.2 05/16/21 03:45: WBC 12.7 H, RBC 2.99 L, Hgb 7.4 L, Hct 24.5 L, MCV 81.9, MCH 24.7 L, MCHC 30.2 L, RDW Std Deviation 51.2 H, RDW Coeff of Ivory 17.2 H, Plt Count 300, MPV 9.7, Immature Gran % (Auto) 0.600, Neut % (Auto) 78.5 H, Lymph % (Auto) 9.8 L, [place] % (Auto) 9.2, Eos % (Auto) 1.7, Baso % (Auto) 0.2, Absolute Neuts (auto) 10.0 H, Absolute Lymphs (auto) 1.24, Nucleated RBC % 0 05/16/21 03:45: Sodium 143, Potassium 3.3 L, Chloride 113 H, Carbon Dioxide 24.0, Anion Gap 6, BUN 8, Creatinine 0.28 L, Estim Creat Clear Calc 41.33, Est GFR (MDRD) Af Amer 298, Est GFR (MDRD) Non-Af 247, BUN/Creatinine Ratio 28.4 H, Glucose 84, Calcium 7.9 L Micro: Microbiology 05/15/21 Unknown Wound - Buttock Gram Stain - Final 05/14/21 18:05 Urine, Clean Catch Urine Culture - Preliminary Gram negative mukesh 05/14/21 16:13 Blood Culture (Wb) - Right Forearm Blood Culture - Preliminary 05/14/21 16:25 Blood Culture (Wb) - Anticubital Left Blood Culture - Preliminary Physical Exam Narrative GENERAL: cooperative HEENT: Atraumatic; EYES; Anicteric, Normal Conjunctiva NECK; supple, normal thyroid, RESPIRATORY: Diminished to auscultation CARDIOVASCULAR: Regular S1 S2, GI: soft, normoactive bowel sounds, : No Renal angle tenderness; EXTREMITIES: No edema, no clubbing, MUSCULOSKELETAL: no muscle waisting NEURO: Awake; no lateralizing signs. SKIN: Sacral decubitus ulcer PSYCH; Flat affect Assessment & Plan Assessment/Plan (1) Severe sepsis: (2) Decubital ulcer: QUALIFIERS: Laterality: unspecified laterality Pressure injury location: buttock Pressure injury stage: unstageable Qualified Code(s): L89.300 - Pressure ulcer of unspecified buttock, unstageable PLAN: Patient is a 75-year-old lady with with paraplegia, decubitus ulcer who was transferred from the transitional care unit to the ED on account of er. An assessment of severe sepsis secondary to infected decubitus ulcer as well as suspected UTI made admitted to the intensive care unit for further management 1. Severe sepsis - secondary to infected decubitus ulcer as well as suspected UTI made admitted to the intensive care unit for further management. Patient started on IV fluid resuscitation per protocol broad-spectrum antibiotic therapy with Vanco and Zosyn after cultures have been sent. Patient blood cultures so far positive for gram-negative rods and gram-positive cocci in pairs and chains. Urine cultures positive for gram-negative rods.. Patient WBC count trending up. Consult placed to Dr. Maciel as well as infectious disease -05/16/2021 patient underwent Excision necrotic sacral pressure sore, Stage IV, with partial ostectomy for osteomyelitis by Dr. Maciel on 05/15/2021 2. Anemia ?Secondary to acute blood loss anemia following surgery. Hemoglobin down to 7.4. With the patient being deemed to be symptomatic and order was given for patient to be transfused with 1 unit PRBC 3. 5. Paroxysmal A. fib ?Rate controlled with amiodarone, on systemic anticoagulation with Eliquis which is currently being held in view of anticipation of patient surgical debridement. -05/16/2021 patient went into A. fib with RVR during the night 4. 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 Patient was added to the transitional care unit undergoing rehab 5. Large B-cell lymphoma - per Hx 6. Coronary artery disease -status post CABGNeuropathy Gabapentin continued 7. DVT prophylaxis SCD ordered. Charges/Coding Visit Charges Inpatient E&M: 10310 [facility] Hosp L3
--- NOTE | 2021-05-16 07:53 | PCM.PN.INT ---
Assessment & Plan Assessment/Plan (1) Severe sepsis: PLAN: RECOMMENDATIONS: 1. Continue antimicrobials per ID recommendations. 2. Continue local wound care. 3. Monitor H&H daily and transfuse if hemoglobin drops below 7 g/dL. Send type and screen. 4. Potassium repletion. 5. Encourage incentive spirometer use while in bed. IMPRESSIONS: 1. Severe sepsis Concern for infected decubitus ulcer versus urinary tract source of infection with secondary hematogenous spread. The patient is on appropriate antimicrobials at this time. She has been fluid resuscitated and is hemodynamically stable. Plan to continue current supportive measures. Continue local wound care. 2. Diffuse large B-cell lymphoma Continue outpatient management per radiation oncology. 3. Anemia The patient is overall net positive for the hospital stay, making a component of this delusional. However, will send type and screen. There is no overt signs of blood loss at the current time. Plan to transfuse if hemoglobin drops below 7 g/dL. 4. Hypokalemia Electrolyte repletion as ordered. Recheck levels in the morning. 5. History of coronary artery disease status post CABG/atrial fibrillation/hyperlipidemia/hypertension Complicates care, management, recovery and prognosis. Hold home antihypertensives for now. This note was generated with [employer] dictation software. It may contain incorrect words, spelling, and punctuation that were not noted in checking the note before signing. Subjective Subjective The patient was seen and examined at the bedside this morning. Events from the last 24 hours have been reviewed. The patient is currently afebrile, hemodynamically stable and maintaining appropriate oxygen saturations on room air the patient is currently documented to be overall net +4.2 L for the hospital admission. The patient did undergo surgical excision of her sacral pressure sore with partial osteoectomy yesterday. Blood loss was estimated to be 150 mL. Hemoglobin this morning was noted to be 7.4 g/dL. Potassium is low at 3.3. Objective Data Objective Data The patient's most recent lab work, culture data and imaging studies have all been personally reviewed. Urine Gram stain was positive for gram-negative mukesh. Vital Signs: Vital Signs Temp Pulse Resp BP Pulse Ox 98.4 F 84 16 148/73 H 96 05/16/21 07:44 05/16/21 07:48 05/16/21 07:44 05/16/21 07:44 05/16/21 07:44 Oxygen Flow Rate (L/min) 2 Oxygen Delivery Method Room Air Weight: 87 kg Body Mass Index (BMI) 31.3 Intake & Output: Intake and Output for Last 24 Hours 05/14/21 05/15/21 05/16/21 23:59 23:59 23:59 Intake Total 2983 / 2983 4414.33 / 4414.33 921.67 / 921.67 Output Total 625 / 1125 1400 / 2250 2049 / 2049 Balance 2358 / 1858 3014.33 / 2164.33 -1128.33 / -1128.33 Medical Nutrition Assessment Dietitian: Nutrition Therapy Diagnosis Start: 05/15/21 11:47 Freq: Status: Active Protocol: Document 05/15/21 12:00 [facility] (Rec: 05/15/21 12:00 [facility] [id number]) Nutrition Malnutrition Evidence of Malnutrition Exists No Intake Problem Increased Nutrient Needs (specify) Etiology (protein) related to PI Signs/Symptoms as evidenced by PI to sacral decurb requiring debridement Status Active Problem Recommendation Dietitian Recommendations/Changes When medically able, rec diet as tolerated to liberal Regular Rec 120 ml strawberry ensure enlive w/ meals for increased nutrition to help increased nutritional intake Rec Shaan bid w/ medpass for increased nutrition if consumed Lab / Micro Data Attestation: I reviewed the patient's lab results. Result Diagrams: 05/16/21 03:45 05/16/21 03:45 Labs: Laboratory Results - last 24 hr 05/16/21 03:45: Vancomycin Trough 6.2 05/16/21 03:45: WBC 12.7 H, RBC 2.99 L, Hgb 7.4 L, Hct 24.5 L, MCV 81.9, MCH 24.7 L, MCHC 30.2 L, RDW Std Deviation 51.2 H, RDW Coeff of Ivory 17.2 H, Plt Count 300, MPV 9.7, Immature Gran % (Auto) 0.600, Neut % (Auto) 78.5 H, Lymph % (Auto) 9.8 L, [place] % (Auto) 9.2, Eos % (Auto) 1.7, Baso % (Auto) 0.2, Absolute Neuts (auto) 10.0 H, Absolute Lymphs (auto) 1.24, Nucleated RBC % 0 05/16/21 03:45: Sodium 143, Potassium 3.3 L, Chloride 113 H, Carbon Dioxide 24.0, Anion Gap 6, BUN 8, Creatinine 0.28 L, Estim Creat Clear Calc 41.33, Est GFR (MDRD) Af Amer 298, Est GFR (MDRD) Non-Af 247, BUN/Creatinine Ratio 28.4 H, Glucose 84, Calcium 7.9 L Micro: Microbiology 05/15/21 Unknown Wound - Buttock Gram Stain - Final 05/14/21 18:05 Urine, Clean Catch Urine Culture - Preliminary Gram negative mukesh 05/14/21 16:13 Blood Culture (Wb) - Right Forearm Blood Culture - Preliminary 05/14/21 16:25 Blood Culture (Wb) - Anticubital Left Blood Culture - Preliminary Physical Exam Const alert and no apparent distress General Appearance: cooperative HEENT normocephalic and head/scalp atraumatic Mouth: dry mucous membranes Eyes PERRL, EOMs intact bilaterally and conjunctivae normal Neck supple General: trachea midline Resp normal respiratory effort Auscultation: Negative for rales, rhonchi or wheezes Cardio regular rate and regular rhythm GI normal to inspection, nondistended, normoactive bowel sounds Extremity no clubbing, cyanosis or edema Skin Wounds: wounds noted Neuro oriented x3 and CN's II-XII intact bilaterally Psych cooperative and affect normal Charges/Coding Visit Charges Inpatient E&M: 05041 Subs Hosp L3
--- NOTE | 2021-05-16 08:46 | NURSING ---
wound photo: sacrum
--- NOTE | 2021-05-16 09:20 | CASEMGMT ---
JOON called patient's and confirmed the plan is to return to TCU when ready. Maribel Stoner [employer]
[2021-05-16] MEDS: Polyethylene Glycol 3350 17 GM PACKET PO (10:11)
[2021-05-16] MEDS: Senna Tablet 1 TABLET PO ×2 (10:11→21:30)
[2021-05-16] MEDS: Multivitamins,Therapeutic Tablet 1 TABLET PO (10:12)
[2021-05-16] MEDS: Aspirin 81 MG TAB.CHEW PO (10:12)
[2021-05-16 12:12] LABS: Pathologist Review Reviewed
--- NOTE | 2021-05-16 12:27 | PN.SURG_ITS ---
Subjective Subjective Postop #1 Patient sitting up in bed eating lunch. Patient states pain is well controlled. Objective Data Objective Data Vital Signs: Vital Signs Temp Pulse Resp BP Pulse Ox 98.4 F 93 16 148/73 H 95 05/16/21 07:44 05/16/21 14:00 05/16/21 07:44 05/16/21 07:44 05/16/21 07:50 Oxygen Flow Rate (L/min) 2 Oxygen Delivery Method Room Air Weight: 191 lb 12.835 oz Body Mass Index (BMI) 31.3 Intake & Output: Intake and Output for Last 24 Hours 05/14/21 05/15/21 05/16/21 23:59 23:59 23:59 Intake Total 2983 / 2983 4414.33 / 4414.33 1501.67 / 1501.67 Output Total 625 / 1125 1400 / 2250 3000 / 3000 Balance 2358 / 1858 3014.33 / 2164.33 -1498.33 / -1498.33 Medical Nutrition Assessment Dietitian: Nutrition Therapy Diagnosis Start: 05/15/21 11:47 Freq: Status: Active Protocol: Document 05/15/21 12:00 [facility] (Rec: 05/15/21 12:00 [facility] [id number]) Nutrition Malnutrition Evidence of Malnutrition Exists No Intake Problem Increased Nutrient Needs (specify) Etiology (protein) related to PI Signs/Symptoms as evidenced by PI to sacral decurb requiring debridement Status Active Problem Recommendation Dietitian Recommendations/Changes When medically able, rec diet as tolerated to liberal Regular Rec 120 ml strawberry ensure enlive w/ meals for increased nutrition to help increased nutritional intake Rec Shaan bid w/ medpass for increased nutrition if consumed Lab / Micro Data Result Diagrams: 05/16/21 03:45 05/16/21 03:45 Labs: Laboratory Results - last 24 hr 05/15/21 06:40: Diff Path Review Reviewed 05/16/21 03:45: Vancomycin Trough 6.2 05/16/21 03:45: WBC 12.7 H, RBC 2.99 L, Hgb 7.4 L, Hct 24.5 L, MCV 81.9, MCH 24.7 L, MCHC 30.2 L, RDW Std Deviation 51.2 H, RDW Coeff of Ivory 17.2 H, Plt Count 300, MPV 9.7, Immature Gran % (Auto) 0.600, Neut % (Auto) 78.5 H, Lymph % (Auto) 9.8 L, [place] % (Auto) 9.2, Eos % (Auto) 1.7, Baso % (Auto) 0.2, Absolute Neuts (auto) 10.0 H, Absolute Lymphs (auto) 1.24, Nucleated RBC % 0 05/16/21 03:45: Sodium 143, Potassium 3.3 L, Chloride 113 H, Carbon Dioxide 24.0, Anion Gap 6, BUN 8, Creatinine 0.28 L, Estim Creat Clear Calc 41.33, Est GFR (MDRD) Af Amer 298, Est GFR (MDRD) Non-Af 247, BUN/Creatinine Ratio 28.4 H, Glucose 84, Calcium 7.9 L 05/16/21 09:20: Blood Type A NEGATIVE, Antibody Screen NEGATIVE Micro: Microbiology 05/15/21 Unknown Wound - Buttock Gram Stain - Final 05/15/21 Unknown Wound - Buttock Wound Culture - Preliminary Mixed Gram Pos & Gram Neg Org 05/15/21 Unknown Wound - Buttock Gram Stain - Final 05/15/21 Unknown Wound - Buttock Wound Culture - Preliminary Gram negative mukesh Gram positive organism 05/14/21 16:13 Blood Culture (Wb) - Right Forearm Blood Culture - Preliminary Gram negative mukesh Gram Positive Cocci 05/14/21 18:05 Urine, Clean Catch Urine Culture - Final Enterobacter cloacae complex 05/14/21 16:25 Blood Culture (Wb) - Anticubital Left Blood Culture - Preliminary Gram negative mukesh Physical Exam Const alert, oriented x3 and no apparent distress General Appearance: cooperative HEENT normocephalic Neck full ROM Resp normal respiratory effort Cardio regular rate GI soft to palpation and non-tender Extremity normal capillary refill Skin Wound Narrative: Sacral wound is stable. No active bleeding. Wound nurse note and picture reviewed. Wound VAC placed and at 150 mmHg. Neuro oriented x3 and CN's II-XII intact bilaterally Psych mental status grossly normal Assessment & Plan Assessment/Plan (1) Decubitus ulcer, infected: QUALIFIERS: Pressure injury stage: stage 4 Qualified Code(s): L89.94 - Pressure ulcer of unspecified site, stage 4; L08.9 - Local infection of the skin and subcutaneous tissue, unspecified (2) Osteomyelitis of pelvis: (3) Diffuse large B-cell lymphoma: QUALIFIERS: Lymphoma site: extranodal excluding spleen and other solid organs Qualified Code(s): C83.39 - Diffuse large B-cell lymphoma, extranodal and solid organ sites (4) Paraplegia: (5) Debility: PLAN: Pain is controlled. Wound is stable with no active bleeding. Wound VAC at 150 mm Hg placed today. Patient is tolerating it well. Preliminary operative cultures positive for Gram negative mukesh and Gram positive organism. She is currently on Vancomycin IV and Zosyn IV per ID. Hgb 7.4, K+ 3.3. Patient is being managed by medicine. Will continue to monitor. Patient is concerned about her radiation appointment that she is supposed to sta rt tomorrow. I phoned and spoke with one of the nurse in Radiation Oncology who stated she will have Dr. Polo contact the hospitalist to discuss if she is able to keep her appointment for Saturday at 0930. I spoke with the patient's nurse to convey that information to the patient. Encouraged increase protein intake to help with wound healing. Prealbumin ordered for AM. Will start Shaan protein supplements twice daily. When she is discharged home, she will follow up at the wound healing center for management of her wound.
[2021-05-16] MEDS: Acetaminophen 500 MG Tablet 1000 MG PO (21:30)
[2021-05-16] MEDS: Atorvastatin Calcium 40 MG Tablet PO (21:30)
[2021-05-16] MEDS: MELATONIN 3 MG TABLET PO (21:30)
[2021-05-16] MEDS: 0.9% Normal Saline 1,000 ML 100 ML IV (21:38)
[2021-05-16] MEDS: hydrALAZINE 20 MG/ML Vial 10 MG IV (22:04)
--- NOTE | 2021-05-16 22:15 | NURSING ---
Call to Kamlesh Munoz (family) regarding pt. transfer to PCU 121.
--- NOTE | 2021-05-16 22:16 | NURSING ---
Report called to PCU Josie [place]
--- NOTE | 2021-05-16 22:50 | NURSING ---
Pt. transferred to U 121 at this time.
[2021-05-17] VITALS (13 sets, daily range): BP systolic 143–183; BP diastolic 66–74; PULSE 83–110; RESP 16–20; TEMP 36.1–37.7; O2SAT 95–100
[2021-05-17] MEDS: Gabapentin 300 MG Capsule PO ×3 (05:28→21:26)
[2021-05-17 06:46] LABS: Absolute Lymphocyte Count 1.45 X10^3/uL (0.83-4.51); Absolute Neutrophil Count 10.2 X10^3/uL (2.0-7.7); Basophil# 0.03 X10^3/uL; Basophil% 0.2 % (0-1); Eosinophil# 0.13 X10^3/uL; Hematocrit 28.2 % (37-47); Hemoglobin 8.9 g/dL (12.0-15.0); Lymphocyte # 1.45 X10^3/ul (0.83-4.51); Lymphocyte % 11.2 % (19-41); Mean Corp Hgb Conc 31.6 g/dL (32-36); Mean Corpuscular Volume 79.2 fL (81-99); Mean Platelet Vol. 9.2 fl (6.2-12.0); Monocyte# 1.07 X10^3/uL; Monocyte% 8.2 % (0-10); NRBC Flagged by Analyzer 0 % (0-5); Neutrophil % 78.6 % (47-70); Platelet Count 350 K/mm3 (150-450); RBC Distribution Width SD 48.7 fl (35.1-43.9); Red Blood Count 3.56 M/mm3 (4.2-5.4)
[2021-05-17 07:16] LABS: Anion Gap 6 (5-15); BUN 4 mg/dL (7-18); BUN/Creat Ratio 17.9 RATIO (10-20); Calcium,Total 7.9 mg/dL (8.5-10.1); Chloride 111 mmol/L (98-107); Creatinine, Serum 0.22 mg/dL (0.55-1.02); EST Glomerular Filtration Rate 323 mL/min (>60); Est Glom Filt Rate - Afr Amer 391 mL/min (>60); Estimated Creatinine Clearance 41.33 ml/min; Glucose 94 mg/dL (74-106); Potassium 3.1 mmol/L (3.5-5.1); Prealbumin 4.9 mg/dL (20.0-40.0); Sodium Level 142 mmol/L (136-145)
--- NOTE | 2021-05-17 08:01 | PCM.PN.HOSP ---
Subjective Subjective Patient seen had a relatively uneventful night. Wound cultures still pending. Patient is scheduled to undergo radiation therapy this a.m. Objective Data Objective Data Vital Signs: Vital Signs Temp Pulse Resp BP Pulse Ox 97.0 F L 83 16 143/70 H 95 05/17/21 03:37 05/17/21 03:37 05/17/21 03:37 05/17/21 03:37 05/17/21 03:37 Oxygen Flow Rate (L/min) 2 Oxygen Delivery Method Room Air Weight: 85.8 kg Body Mass Index (BMI) 31.3 Intake & Output: Intake and Output for Last 24 Hours 05/15/21 05/16/21 05/17/21 23:59 23:59 23:59 Intake Total 4414.33 / 4414.33 2481.67 / 2721.67 1360 / 1360 Output Total 1400 / 2250 3600 / 4300 1400 / 1400 Balance 3014.33 / 2164.33 -1118.33 / -1578.33 -40 / -40 Medical Nutrition Assessment Dietitian: Nutrition Therapy Diagnosis Start: 05/15/21 11:47 Freq: Status: Active Protocol: Document 05/15/21 12:[address] [facility] (Rec: 05/15/21 12:[address] [facility] [id number]) Nutrition Malnutrition Evidence of Malnutrition Exists No Intake Problem Increased Nutrient Needs (specify) Etiology (protein) related to PI Signs/Symptoms as evidenced by PI to sacral decurb requiring debridement Status Active Problem Recommendation Dietitian Recommendations/Changes When medically able, rec diet as tolerated to liberal Regular Rec 120 ml strawberry ensure enlive w/ meals for increased nutrition to help increased nutritional intake Rec Shaan bid w/ medpass for increased nutrition if consumed Lab / Micro Data Result Diagrams: 05/17/21 06:25 05/17/21 06:25 Labs: Laboratory Results - last 24 hr 05/15/21 06:40: Diff Path Review Reviewed 05/16/21 09:20: Blood Type A NEGATIVE, Antibody Screen NEGATIVE 05/17/21 06:25: Sodium 142, Potassium 3.1 L, Chloride 111 H, Carbon Dioxide 25.0, Anion Gap 6, BUN 4 L, Creatinine 0.22 L, Estim Creat Clear Calc 41.33, Est GFR (MDRD) Af Amer 391, Est GFR (MDRD) Non-Af 323, BUN/Creatinine Ratio 17.9, Glucose 94, Calcium 7.9 L, Prealbumin 4.9 L 05/17/21 06:25: WBC 13.0 H, RBC 3.56 L, Hgb 8.9 L, Hct 28.2 L, MCV 79.2 L, MCH 25.0 L, MCHC 31.6 L, RDW Std Deviation 48.7 H, RDW Coeff of Ivory 17.0 H, Plt Count 350, MPV 9.2, Immature Gran % (Auto) 0.800, Neut % (Auto) 78.6 H, Lymph % (Auto) 11.2 L, [place] % (Auto) 8.2, Eos % (Auto) 1.0, Baso % (Auto) 0.2, Absolute Neuts (auto) 10.2 H, Absolute Lymphs (auto) 1.45, Nucleated RBC % 0 Micro: Microbiology 05/15/21 Unknown Wound - Buttock Gram Stain - Final 05/15/21 Unknown Wound - Buttock Wound Culture - Preliminary Escherichia coli Gram positive organism 05/15/21 Unknown Wound - Buttock Anaerobic Culture - Preliminary Checking for anaerobes, further studies to follow. 05/15/21 Unknown Wound - Buttock Gram Stain - Final 05/15/21 Unknown Wound - Buttock Wound Culture - Preliminary Escherichia coli 05/15/21 Unknown Wound - Buttock Anaerobic Culture - Preliminary Checking for anaerobes, further studies to follow. 05/14/21 16:13 Blood Culture (Wb) - Right Forearm Blood Culture - Preliminary Gram negative mukesh Gram Positive Cocci 05/14/21 18:05 Urine, Clean Catch Urine Culture - Final Enterobacter cloacae complex 05/14/21 16:25 Blood Culture (Wb) - Anticubital Left Blood Culture - Preliminary Gram negative mukesh Physical Exam Narrative GENERAL: cooperative HEENT: Atraumatic; EYES; Anicteric, Normal Conjunctiva NECK; supple, normal thyroid, RESPIRATORY: Diminished to auscultation CARDIOVASCULAR: Regular S1 S2, GI: soft, normoactive bowel sounds, : No Renal angle tenderness; EXTREMITIES: No edema, no clubbing, MUSCULOSKELETAL: no muscle waisting NEURO: Awake; no lateralizing signs. SKIN: Sacral decubitus ulcer PSYCH; Flat affect Assessment & Plan Assessment/Plan (1) Severe sepsis: (2) Decubital ulcer: QUALIFIERS: Laterality: unspecified laterality Pressure injury location: buttock Pressure injury stage: unstageable Qualified Code(s): L89.300 - Pressure ulcer of unspecified buttock, unstageable PLAN: Patient is a 75-year-old lady with with paraplegia, decubitus ulcer who was transferred from the transitional care unit to the ED on account of fever. An assessment of severe sepsis secondary to infected decubitus ulcer as well as suspected UTI made admitted to the intensive care unit for further management 1. Severe sepsis - secondary to infected decubitus ulcer as well as suspected UTI made admitted to the intensive care unit for further management. Patient started on IV fluid resuscitation per protocol broad-spectrum antibiotic therapy with Vanco and Zosyn after cultures have been sent. Patient blood cultures so far positive for gram-negative rods and gram-positive cocci in pairs and chains. Urine cultures positive for gram-negative rods.. Patient WBC count trending up. Consult placed to Dr. Maciel as well as infectious disease -05/16/2021 patient underwent Excision necrotic sacral pressure sore, Stage IV, with partial ostectomy for osteomyelitis by Dr. Maciel on 05/15/2021 ?05/17/2021; remains on broad-spectrum antibiotic therapy. Cultures positive for E. coli and gram-positive cocci final identification and sensitivities pending. 2. Anemia ?Secondary to acute blood loss anemia following surgery. Hemoglobin down to 7.4. With the patient being deemed to be symptomatic and order was given for patient to be transfused with 1 unit PRBC 3. 5. Paroxysmal A. fib ?Rate controlled with amiodarone, on systemic anticoagulation with Eliquis which is currently being held in view of anticipation of patient surgical debridement. -05/16/2021 patient went into A. fib with RVR during the night 4. 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 Patient was added to the transitional care unit undergoing rehab 5. Large B-cell lymphoma - per Hx -05/17/2021; scheduled to undergo radiation therapy this a.m. 6. Coronary artery disease -status post CABGNeuropathy Gabapentin continued 7. DVT prophylaxis SCD ordered. Charges/Coding Visit Charges Inpatient E&M: 17754 Subs Hosp L2
[2021-05-17] MEDS: Amiodarone 200 MG Tablet 400 MG PO (09:24)
--- NOTE | 2021-05-17 09:38 | PCM.PN.INT ---
Assessment & Plan Assessment/Plan (1) Severe sepsis: PLAN: RECOMMENDATIONS: 1. Continue antimicrobials per ID recommendations. 2. Continue local wound care. 3. Monitor H&H daily and transfuse if hemoglobin drops below 7 g/dL. 4. Additional potassium repletion. 5. Encourage incentive spirometer use while in bed. 6. Given the patient's lack of further ICU or pulmonary needs, will sign off. Please call with any additional questions. IMPRESSIONS: 1. Severe sepsis Concern for infected decubitus ulcer versus urinary tract source of infection with secondary hematogenous spread. The patient is on appropriate antimicrobials at this time. She has been fluid resuscitated and is hemodynamically stable. Plan to continue current supportive measures. Continue local wound care. 2. Diffuse large B-cell lymphoma Continue outpatient management per radiation oncology. 3. Anemia The patient is overall net positive for the hospital stay, making a component of this delusional. There is no overt signs of blood loss at the current time. Plan to transfuse if hemoglobin drops below 7 g/dL. 4. Hypokalemia Additional electrolyte repletion as ordered. Recheck levels in the morning. 5. History of coronary artery disease status post CABG/atrial fibrillation/hyperlipidemia/hypertension Complicates care, management, recovery and prognosis. Continue home medications as indicated. This note was generated with [employer] dictation software. It may contain incorrect words, spelling, and punctuation that were not noted in checking the note before signing. Subjective Subjective The patient was seen and examined at the bedside this morning. Events from the last 24 hours have been reviewed. The patient is currently afebrile, hemodynamically stable and maintaining appropriate oxygen saturations on room air. The patient is currently documented to be overall net +4.2 L for the hospital admission. Hemoglobin is stable this morning at 8.9 g/dL. Potassium is again low at 3.1. Objective Data Objective Data The patient's most recent lab work, culture data and imaging studies have all been personally reviewed. Urine Gram stain was positive for gram-negative mukesh. Vital Signs: Vital Signs Temp Pulse Resp BP Pulse Ox 97.0 F L 92 16 143/70 H 95 05/17/21 03:37 05/17/21 07:06 05/17/21 03:37 05/17/21 03:37 05/17/21 07:54 Oxygen Flow Rate (L/min) 2 Oxygen Delivery Method Room Air Weight: 85.8 kg Body Mass Index (BMI) 31.3 Intake & Output: Intake and Output for Last 24 Hours 05/15/21 05/16/21 05/17/21 23:59 23:59 23:59 Intake Total 4414.33 / 4414.33 2481.67 / 2721.67 1360 / 1360 Output Total 1400 / 2250 3600 / 4300 1400 / 1400 Balance 3014.33 / 2164.33 -1118.33 / -1578.33 -40 / -40 Medical Nutrition Assessment Dietitian: Nutrition Therapy Diagnosis Start: 05/15/21 11:47 Freq: Status: Active Protocol: Document 05/15/21 12:00 [facility] (Rec: 05/15/21 12:00 [facility] [id number]) Nutrition Malnutrition Evidence of Malnutrition Exists No Intake Problem Increased Nutrient Needs (specify) Etiology (protein) related to PI Signs/Symptoms as evidenced by PI to sacral decurb requiring debridement Status Active Problem Recommendation Dietitian Recommendations/Changes When medically able, rec diet as tolerated to liberal Regular Rec 120 ml strawberry ensure enlive w/ meals for increased nutrition to help increased nutritional intake Rec Shaan bid w/ medpass for increased nutrition if consumed Lab / Micro Data Attestation: I reviewed the patient's lab results. Result Diagrams: 05/17/21 06:25 05/17/21 06:25 Labs: Laboratory Results - last 24 hr 05/15/21 06:40: Diff Path Review Reviewed 05/16/21 09:20: Blood Type A NEGATIVE, Antibody Screen NEGATIVE 05/17/21 06:25: Sodium 142, Potassium 3.1 L, Chloride 111 H, Carbon Dioxide 25.0, Anion Gap 6, BUN 4 L, Creatinine 0.22 L, Estim Creat Clear Calc 41.33, Est GFR (MDRD) Af Amer 391, Est GFR (MDRD) Non-Af 323, BUN/Creatinine Ratio 17.9, Glucose 94, Calcium 7.9 L, Prealbumin 4.9 L 05/17/21 06:25: WBC 13.0 H, RBC 3.56 L, Hgb 8.9 L, Hct 28.2 L, MCV 79.2 L, MCH 25.0 L, MCHC 31.6 L, RDW Std Deviation 48.7 H, RDW Coeff of Ivory 17.0 H, Plt Count 350, MPV 9.2, Immature Gran % (Auto) 0.800, Neut % (Auto) 78.6 H, Lymph % (Auto) 11.2 L, [place] % (Auto) 8.2, Eos % (Auto) 1.0, Baso % (Auto) 0.2, Absolute Neuts (auto) 10.2 H, Absolute Lymphs (auto) 1.45, Nucleated RBC % 0 Micro: Microbiology 05/14/21 16:13 Blood Culture (Wb) - Right Forearm Blood Culture - Preliminary Gram negative mukesh GPC Poss Enterococcus sp 05/14/21 16:25 Blood Culture (Wb) - Anticubital Left Blood Culture - Final Escherichia coli 05/15/21 Unknown Wound - Buttock Gram Stain - Final 05/15/21 Unknown Wound - Buttock Wound Culture - Preliminary Escherichia coli GNR lactose student life dean 05/15/21 Unknown Wound - Buttock Anaerobic Culture - Preliminary Checking for anaerobes, further studies to follow. 05/15/21 Unknown Wound - Buttock Gram Stain - Final 05/15/21 Unknown Wound - Buttock Wound Culture - Preliminary Escherichia coli Gram positive organism 05/15/21 Unknown Wound - Buttock Anaerobic Culture - Preliminary Checking for anaerobes, further studies to follow. 05/14/21 18:05 Urine, Clean Catch Urine Culture - Final Enterobacter cloacae complex Physical Exam Const alert and no apparent distress General Appearance: cooperative HEENT normocephalic and head/scalp atraumatic Mouth: dry mucous membranes Eyes PERRL, EOMs intact bilaterally and conjunctivae normal Neck supple General: trachea midline Resp normal respiratory effort Auscultation: Negative for rales, rhonchi or wheezes Cardio regular rate and regular rhythm GI normal to inspection, nondistended, normoactive bowel sounds Extremity no clubbing, cyanosis or edema Skin Wounds: wounds noted Neuro oriented x3 and CN's II-XII intact bilaterally Psych cooperative and affect normal Charges/Coding Visit Charges Inpatient E&M: 25061 Subs Hosp L2
--- NOTE | 2021-05-17 11:00 | NURSING ---
Pt had just returned from radiation. wound VAC was disconnected. Discussed with the radiation tech that the dressing should stay to suction if at all possible. hooked tubing back up and good seal noted at 150mmHg low continuous suction. assessed the dressing. all drape appears to be intact. next dressing change will be Saturday05/19/21.
--- NOTE | 2021-05-17 12:38 | CASEMGMT ---
PADMINI BLAKE NOTE: Noted a Palliative referral was made when pt on TCU and Pippa, CHRISTINA, met w/pt on 05/10. TC to Maggie @ Palliative Care. She was made aware pt has been admitted to [facility]. She states pt had not signed up w/Palliative care yet, and plans are for them to f/u with pt after she is discharged from TCU. Tiffany COMER RN CM
[2021-05-17] MEDS: Polyethylene Glycol 3350 17 GM PACKET PO (13:24)
[2021-05-17] MEDS: Juven (unflavored) Packet 1 PACKET PO (13:24)
[2021-05-17] MEDS: Multivitamins,Therapeutic Tablet 1 TABLET PO (13:25)
[2021-05-17] MEDS: Senna Tablet 1 TABLET PO ×2 (13:25→21:26)
[2021-05-17] MEDS: Aspirin 81 MG TAB.CHEW PO (13:25)
--- NOTE | 2021-05-17 14:38 | PCM.PN.ID ---
Physical Exam Narrative Feeling ok except for pain s/p OR. No fever, no n/v/d Const alert General Appearance: cooperative Resp normal air movement and clear to auscultation bilaterally Cardio regular rate and regular rhythm GI normal to inspection, nondistended, normoactive bowel sounds Skin no rashes or lesions noted ID ID: Route of nutrition/ use of supplements: [] Nutritional Intake: [] IV Site: [] Gutierrez Catheter: [] Assessment & Plan Assessment/Plan (1) Severe sepsis: PLAN: severe sepsis with ecoli bacteremia, (+) ucx with enterobacter, infected sacral ulcer, recent dx DLBCL. On vanc/zosyn, taken to OR 05/[address] Maciel for I&D. Surg cx with enterococcus like, ecoli, gram pos, GNR. Ucx is R to zosyn, will change to vanc/addison. Will follow. Have encouraged her to get covid vaccine, she is not interested. (2) Decubitus ulcer, infected: QUALIFIERS: Pressure injury stage: stage 4 Qualified Code(s): L89.94 - Pressure ulcer of unspecified site, stage 4; L08.9 - Local infection of the skin and subcutaneous tissue, unspecified (3) Diffuse large B-cell lymphoma: QUALIFIERS: Lymphoma site: extranodal excluding spleen and other solid organs Qualified Code(s): C83.39 - Diffuse large B-cell lymphoma, extranodal and solid organ sites
--- NOTE | 2021-05-17 16:06 | PCM.PN.SRG ---
Subjective Subjective Postop #2 Patient sitting in bed. Family at bedside. Objective Data Objective Data Vital Signs: Vital Signs Temp Pulse Resp BP Pulse Ox 97.8 F 93 20 H 175/73 H 100 05/17/21 12:05 05/17/21 12:05 05/17/21 12:05 05/17/21 12:50 05/17/21 12:05 Oxygen Flow Rate (L/min) 2 Oxygen Delivery Method Room Air Weight: 189 lb 2.506 oz Body Mass Index (BMI) 31.3 Intake & Output: Intake and Output for Last 24 Hours 05/15/21 05/16/21 05/17/21 23:59 23:59 23:59 Intake Total 4414.33 / 4414.33 2481.67 / 2721.67 2400 / 2400 Output Total 1400 / 2250 3600 / 4300 2100 / 2100 Balance 3014.33 / 2164.33 -1118.33 / -1578.33 300 / 300 Medical Nutrition Assessment Dietitian: Nutrition Therapy Diagnosis Start: 05/15/21 11:47 Freq: Status: Active Protocol: Document 05/17/21 15:33 [facility] (Rec: 05/17/21 15:33 [id number]) Nutrition Malnutrition Evidence of Malnutrition Exists No Intake Problem Inadequate Oral Intake Etiology r/t decreased appetite, altered tastes Signs/Symptoms as evidenced by reported intake meeting <50% of estimated nutritional needs x 3 days Status Active Problem Increased Nutrient Needs (specify) Etiology (protein) related to increased protein needs d/t pressure injury, sepsis, lymphoma Signs/Symptoms as evidenced by 11 by 8.5 by 3 .2 cm sacral pressure injury Status Active Problem Recommendation Dietitian Recommendations/Changes Regular diet d/t risk for malnutrition. Ensure Enlive 120mL w/ meals. Shaan BID for wound healing. Lab / Micro Data Result Diagrams: 05/17/21 06:25 05/17/21 06:25 Labs: Laboratory Results - last 24 hr 05/17/21 06:25: Sodium 142, Potassium 3.1 L, Chloride 111 H, Carbon Dioxide 25.0, Anion Gap 6, BUN 4 L, Creatinine 0.22 L, Estim Creat Clear Calc 41.33, Est GFR (MDRD) Af Amer 391, Est GFR (MDRD) Non-Af 323, BUN/Creatinine Ratio 17.9, Glucose 94, Calcium 7.9 L, Prealbumin 4.9 L 05/17/21 06:25: WBC 13.0 H, RBC 3.56 L, Hgb 8.9 L, Hct 28.2 L, MCV 79.2 L, MCH 25.0 L, MCHC 31.6 L, RDW Std Deviation 48.7 H, RDW Coeff of Ivory 17.0 H, Plt Count 350, MPV 9.2, Immature Gran % (Auto) 0.800, Neut % (Auto) 78.6 H, Lymph % (Auto) 11.2 L, [place] % (Auto) 8.2, Eos % (Auto) 1.0, Baso % (Auto) 0.2, Absolute Neuts (auto) 10.2 H, Absolute Lymphs (auto) 1.45, Nucleated RBC % 0 Micro: Microbiology 05/15/21 Unknown Wound - Buttock Gram Stain - Final 05/15/21 Unknown Wound - Buttock Wound Culture - Preliminary Escherichia coli GPC Poss Enterococcus sp Gram positive organism 05/15/21 Unknown Wound - Buttock Anaerobic Culture - Preliminary Checking for anaerobes, further studies to follow. 05/15/21 Unknown Wound - Buttock Gram Stain - Final 05/15/21 Unknown Wound - Buttock Wound Culture - Preliminary Escherichia coli GNR lactose cleaner touch up worker GPC Poss Enterococcus sp 05/15/21 Unknown Wound - Buttock Anaerobic Culture - Preliminary Checking for anaerobes, further studies to follow. 05/14/21 16:13 Blood Culture (Wb) - Right Forearm Blood Culture - Preliminary Gram negative mukesh GPC Poss Enterococcus sp 05/14/21 16:25 Blood Culture (Wb) - Anticubital Left Blood Culture - Final Escherichia coli 05/14/21 18:05 Urine, Clean Catch Urine Culture - Final Enterobacter cloacae complex Physical Exam Const no apparent distress Eyes PERRL Resp normal respiratory effort Cardio regular rate GI soft to palpation Extremity no calf tenderness Skin Wound Narrative: Sacral wound stable with wound VAC in place at 150 mmHg. Neuro oriented x3 and CN's II-XII intact bilaterally Psych thought process normal Assessment & Plan Assessment/Plan (1) Decubitus ulcer, infected: QUALIFIERS: Pressure injury stage: stage 4 Qualified Code(s): L89.94 - Pressure ulcer of unspecified site, stage 4; L08.9 - Local infection of the skin and subcutaneous tissue, unspecified (2) Osteomyelitis of pelvis: (3) Diffuse large B-cell lymphoma: QUALIFIERS: Lymphoma site: extranodal excluding spleen and other solid organs Qualified Code(s): C83.39 - Diffuse large B-cell lymphoma, extranodal and solid organ sites (4) Paraplegia: (5) Debility: PLAN: Pain is controlled. Wound is stable with no active bleeding. Wound VAC at 150 mmHg. Preliminary operative cultures positive for Gram negative mukesh and Gram positive organism. She is currently on Vancomycin IV and Zosyn IV per ID. Hgb 8.9 today up from 7.4 yesterday. K+ 3.1 today, down from 3.3 yesterday. Patient is being managed by medicine. Will continue to monitor. Patient had her first radiation treatment today. Prealbumin 4.9 today. Encouraged increase protein intake to help with wound healing. Will start Shaan protein supplements twice daily. When she is discharged home, she will follow up at the wound healing center for management of her wound. Charges/Coding Procedures Integumentary [id number]: [id number] Global Visit
[2021-05-17] MEDS: 0.9% Normal Saline 1,000 ML 100 ML IV (17:51)
[2021-05-17] MEDS: 0.9% Saline Lock 10 ML Syringe IV (17:55)
[2021-05-17 17:57] LABS: Vancomycin, Trough Level 15.8 ug/mL (5.0-15.0)
--- NOTE | 2021-05-17 19:22 | PCM.RX.CS ---
Consult Pharmacy has been consulted to manage selected antiobiotic: Vancomycin Type of Consult: Follow-up Labs: Sodium 142 mmol/L (136-145) 05/17/21 06:25 Potassium 3.1 mmol/L (3.5-5.1) L 05/17/21 06:25 Chloride 111 mmol/L (98-107) H 05/17/21 06:25 Carbon Dioxide 25.0 mmol/L (21.0-32.0) 05/17/21 06:25 Anion Gap 6 (5-15) 05/17/21 06:25 BUN 4 mg/dL (7-18) L 05/17/21 06:25 Creatinine 0.22 mg/dL (0.55-1.02) L 05/17/21 06:25 Est GFR (MDRD) Af Amer 391 mL/min (>60) 05/17/21 06:25 Est GFR (MDRD) Non-Af 323 mL/min (>60) 05/17/21 06:25 BUN/Creatinine Ratio 17.9 RATIO (10-20) 05/17/21 06:25 Glucose 94 mg/dL (74-106) 05/17/21 06:25 Vancomycin Trough 15.8 ug/mL (5.0-15.0) H 05/17/21 16:58 Microbiology: Microbiology 05/15/21 Unknown Wound - Buttock Gram Stain - Final 05/15/21 Unknown Wound - Buttock Wound Culture - Preliminary Escherichia coli GPC Poss Enterococcus sp Gram positive organism 05/15/21 Unknown Wound - Buttock Anaerobic Culture - Preliminary Checking for anaerobes, further studies to follow. 05/15/21 Unknown Wound - Buttock Gram Stain - Final 05/15/21 Unknown Wound - Buttock Wound Culture - Preliminary Escherichia coli GNR lactose electrical engineering technician GPC Poss Enterococcus sp 05/15/21 Unknown Wound - Buttock Anaerobic Culture - Preliminary Checking for anaerobes, further studies to follow. 05/14/21 16:13 Blood Culture (Wb) - Right Forearm Blood Culture - Preliminary Gram negative mukesh GPC Poss Enterococcus sp 05/14/21 16:25 Blood Culture (Wb) - Anticubital Left Blood Culture - Final Escherichia coli 05/14/21 18:05 Urine, Clean Catch Urine Culture - Final Enterobacter cloacae complex Goal Trough: 15-20 mcg/mL Pharmacy Plan for Drug Dosing: VANCOMYCIN LEVEL RECEIVED Current Vancomycin Dose: 1500MG IV Q12h Number of Doses Received:3 Vancomycin Level: 15.8 Hours Since Last Dose: 11.5hr Renal Function: 0.22 Renal Function Trend: stable Lab/Micro: Cx growing several organisms Vancomycin Plan/Comments: Patient had trough drawn which resulted in a value of 15.8 (goal range 15-20). Will continue current dosing and reassess trough in 2 days. Pending Level: 05/19/21 @1700 Pharmacy Service will continue to monitor and adjust dosing as required.
[2021-05-17] MEDS: MELATONIN 3 MG TABLET PO (21:26)
[2021-05-17] MEDS: Atorvastatin Calcium 40 MG Tablet PO (21:27)
[2021-05-17] MEDS: Acetaminophen 500 MG Tablet 1000 MG PO (21:32)
[2021-05-17] MEDS: hydrALAZINE 20 MG/ML Vial 10 MG IV (21:36)
[2021-05-18] VITALS (13 sets, daily range): BP systolic 150–178; BP diastolic 70–86; PULSE 84–111; RESP 16–18; TEMP 36.6–36.9; O2SAT 96–97
[2021-05-18] MEDS: Potassium Chloride Oral Tablet 20 MEQ 40 MEQ PO
[2021-05-18] MEDS: 0.9% Normal Saline 1,000 ML 100 ML IV ×3 (04:21→23:50)
[2021-05-18] MEDS: Gabapentin 300 MG Capsule PO ×3 (05:40→21:37)
[2021-05-18 06:35] LABS: Absolute Lymphocyte Count 1.59 X10^3/uL (0.83-4.51); Absolute Neutrophil Count 9.6 X10^3/uL (2.0-7.7); Basophil# 0.02 X10^3/uL; Basophil% 0.2 % (0-1); Eosinophil# 0.23 X10^3/uL; Eosinophils% 1.8 % (0-5); Hematocrit 29.5 % (37-47); Hemoglobin 9.3 g/dL (12.0-15.0); Lymphocyte # 1.59 X10^3/ul (0.83-4.51); Lymphocyte % 12.8 % (19-41); Mean Corp Hgb Conc 31.5 g/dL (32-36); Mean Corpuscular Hgb 24.9 pg (27.0-32.0); Mean Corpuscular Volume 78.9 fL (81-99); Mean Platelet Vol. 9.2 fl (6.2-12.0); Monocyte# 0.96 X10^3/uL; Monocyte% 7.7 % (0-10); NRBC Flagged by Analyzer 0 % (0-5); Neutrophil # 9.55 X10^3/uL (2.7-7.7); Neutrophil % 76.7 % (47-70); Platelet Count 384 K/mm3 (150-450); RBC Distribution Width CV 16.9 % (11.6-14.6); RBC Distribution Width SD 48.4 fl (35.1-43.9); Red Blood Count 3.74 M/mm3 (4.2-5.4); White Blood Count 12.5 K/mm3 (4.4-11.0)
[2021-05-18 07:01] LABS: Anion Gap 5 (5-15); BUN 5 mg/dL (7-18); BUN/Creat Ratio 27.6 RATIO (10-20); Calcium,Total 7.9 mg/dL (8.5-10.1); Chloride 112 mmol/L (98-107); Creatinine, Serum 0.18 mg/dL (0.55-1.02); EST Glomerular Filtration Rate 411 mL/min (>60); Est Glom Filt Rate - Afr Amer 498 mL/min (>60); Estimated Creatinine Clearance 41.33 ml/min; Glucose 89 mg/dL (74-106); Potassium 3.4 mmol/L (3.5-5.1); Sodium Level 143 mmol/L (136-145)
--- NOTE | 2021-05-18 07:29 | PCM.PN.HOSP ---
Subjective Subjective Patient wound cultures reviewed significant for Escherichia coli Klebsiella spp. Vanc. Resist. E. gallinarum Vancomycin Resist. E. faecalis Adjusted antibiotic therapy based on above discontinued vancomycin patient started on Zyvox Objective Data Objective Data Vital Signs: Vital Signs Temp Pulse Resp BP Pulse Ox 97.9 F 85 18 151/70 H 96 05/18/21 02:40 05/18/21 03:00 05/18/21 02:40 05/18/21 02:40 05/18/21 02:40 Oxygen Flow Rate (L/min) 2 Oxygen Delivery Method Room Air Weight: 86.3 kg Body Mass Index (BMI) 31.3 Intake & Output: Intake and Output for Last 24 Hours 05/16/21 05/17/21 05/18/21 23:59 23:59 23:59 Intake Total 2481.67 / 2721.67 3590 / 3590 1000 / 1000 Output Total 3600 / 4300 3950 / 3950 2049 / 2049 Balance -1118.33 / -1578.33 -360 / -360 -1050 / -1050 Medical Nutrition Assessment Dietitian: Nutrition Therapy Diagnosis Start: 05/15/21 11:47 Freq: Status: Active Protocol: Document 05/17/21 15:33 AG (Rec: 05/17/21 15:33 AG [id number]) Nutrition Malnutrition Evidence of Malnutrition Exists No Intake Problem Inadequate Oral Intake Etiology r/t decreased appetite, altered tastes Signs/Symptoms as evidenced by reported intake meeting <50% of estimated nutritional needs x 3 days Status Active Problem Increased Nutrient Needs (specify) Etiology (protein) related to increased protein needs d/t pressure injury, sepsis, lymphoma Signs/Symptoms as evidenced by 11 by 8.5 by 3 .2 cm sacral pressure injury Status Active Problem Recommendation Dietitian Recommendations/Changes Regular diet d/t risk for malnutrition. Ensure Enlive 120mL w/ meals. Shaan BID for wound healing. Lab / Micro Data Result Diagrams: 05/18/21 06:18 05/18/21 06:18 Labs: Laboratory Results - last 24 hr 05/17/21 16:58: Vancomycin Trough 15.8 H 05/18/21 06:18: WBC 12.5 H, RBC 3.74 L, Hgb 9.3 L, Hct 29.5 L, MCV 78.9 L, MCH 24.9 L, MCHC 31.5 L, RDW Std Deviation 48.4 H, RDW Coeff of Ivory 16.9 H, Plt Count 384, MPV 9.2, Immature Gran % (Auto) 0.800, Neut % (Auto) 76.7 H, Lymph % (Auto) 12.8 L, [place] % (Auto) 7.7, Eos % (Auto) 1.8, Baso % (Auto) 0.2, Absolute Neuts (auto) 9.6 H, Absolute Lymphs (auto) 1.59, Nucleated RBC % 0 05/18/21 06:18: Sodium 143, Potassium 3.4 L, Chloride 112 H, Carbon Dioxide 26.0, Anion Gap 5, BUN 5 L, Creatinine 0.18 L, Estim Creat Clear Calc 41.33, Est GFR (MDRD) Af Amer 498, Est GFR (MDRD) Non-Af 411, BUN/Creatinine Ratio 27.6 H, Glucose 89, Calcium 7.9 L Micro: Microbiology 05/15/21 Unknown Wound - Buttock Gram Stain - Final 05/15/21 Unknown Wound - Buttock Wound Culture - Preliminary Escherichia coli GPC Poss Enterococcus sp Gram positive organism 05/15/21 Unknown Wound - Buttock Anaerobic Culture - Preliminary Checking for anaerobes, further studies to follow. 05/15/21 Unknown Wound - Buttock Gram Stain - Final 05/15/21 Unknown Wound - Buttock Wound Culture - Preliminary Escherichia coli GNR lactose lithoplate maker GPC Poss Enterococcus sp 05/15/21 Unknown Wound - Buttock Anaerobic Culture - Preliminary Checking for anaerobes, further studies to follow. 05/14/21 16:13 Blood Culture (Wb) - Right Forearm Blood Culture - Preliminary Gram negative mukesh GPC Poss Enterococcus sp 05/14/21 16:25 Blood Culture (Wb) - Anticubital Left Blood Culture - Final Escherichia coli 05/14/21 18:05 Urine, Clean Catch Urine Culture - Final Enterobacter cloacae complex Physical Exam Narrative GENERAL: cooperative HEENT: Atraumatic; EYES; Anicteric, Normal Conjunctiva NECK; supple, normal thyroid, RESPIRATORY: Diminished to auscultation CARDIOVASCULAR: Regular S1 S2, GI: soft, normoactive bowel sounds, : No Renal angle tenderness; EXTREMITIES: No edema, no clubbing, MUSCULOSKELETAL: no muscle waisting NEURO: Awake; no lateralizing signs. SKIN: Sacral decubitus ulcer PSYCH; Flat affect Assessment & Plan Assessment/Plan (1) Severe sepsis: (2) Decubital ulcer: QUALIFIERS: Laterality: unspecified laterality Pressure injury location: buttock Pressure injury stage: unstageable Qualified Code(s): L89.300 - Pressure ulcer of unspecified buttock, unstageable PLAN: Patient is a 75-year-old lady with with paraplegia, decubitus ulcer who was transferred from the transitional care unit to the ED on account of fever. An assessment of severe sepsis secondary to infected decubitus ulcer as well as suspected UTI made admitted to the intensive care unit for further management 1. Severe sepsis - secondary to infected decubitus ulcer as well as suspected UTI made admitted to the intensive care unit for further management. Patient started on IV fluid resuscitation per protocol broad-spectrum antibiotic therapy with Vanco and Zosyn after cultures have been sent. Patient blood cultures so far positive for gram-negative rods and gram-positive cocci in pairs and chains. Urine cultures positive for gram-negative rods.. Patient WBC count trending up. Consult placed to Dr. Maciel as well as infectious disease -05/16/2021 patient underwent Excision necrotic sacral pressure sore, Stage IV, with partial ostectomy for osteomyelitis by Dr. Maciel on 05/15/2021 ?05/17/2021; remains on broad-spectrum antibiotic therapy. Cultures positive for E. coli and gram-positive cocci final identification and sensitivities pending. 05/18/2021; Patient wound cultures reviewed significant for; Escherichia coli, Klebsiella spp, Vanc. Resist. E. gallinarum Vancomycin Resist. E. faecalis. Adjusted antibiotic therapy based on above discontinued vancomycin patient started on Zyvox. On auto was given for patient to have a PICC line placed 2. Anemia ?Secondary to acute blood loss anemia following surgery. Hemoglobin down to 7.4. With the patient being deemed to be symptomatic and order was given for patient to be transfused with 1 unit PRBC ?05/18/2021; hemoglobin up to 9.3 3. 5. Paroxysmal A. fib ?Rate controlled with amiodarone, on systemic anticoagulation with Eliquis which is currently being held in view of anticipation of patient surgical debridement. -05/16/2021 patient went into A. fib with RVR during the night 4. 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 Patient was added to the transitional care unit undergoing rehab 5. Large B-cell lymphoma - per Hx -05/17/2021; scheduled to undergo radiation therapy this a.m. 6. Coronary artery disease -status post CABGNeuropathy Gabapentin continued 7. DVT prophylaxis SCD ordered. Charges/Coding Visit Charges Inpatient E&M: 71630 Subs Hosp L2
[2021-05-18] MEDS: Juven (unflavored) Packet 1 PACKET PO ×2 (08:12→18:22)
[2021-05-18] MEDS: Multivitamins,Therapeutic Tablet 1 TABLET PO (08:12)
[2021-05-18] MEDS: Amiodarone 200 MG Tablet 400 MG PO (08:12)
[2021-05-18] MEDS: Aspirin 81 MG TAB.CHEW PO (08:12)
[2021-05-18] MEDS: Senna Tablet 1 TABLET PO (08:13)
[2021-05-18] MEDS: Linezolid 600 MG 600 MG/300 ML BAG 200 MG IV ×2 (11:33→22:53)
--- NOTE | 2021-05-18 15:16 | CASEMGMT ---
JOON notified Jill that patient will be returning to TCU tomorrow. Maribel Stoner PADDED BOX SEWER BRADY
--- NOTE | 2021-05-18 15:50 | PN.SURG_ITS ---
Subjective Subjective Postop #3 Sitting in bed, and daughter at bedside. Objective Data Objective Data Vital Signs: Vital Signs Temp Pulse Resp BP Pulse Ox 98.4 F 97 16 163/75 H 97 05/18/21 14:00 05/18/21 14:00 05/18/21 14:00 05/18/21 14:00 05/18/21 14:00 Oxygen Flow Rate (L/min) 2 Oxygen Delivery Method Room Air Weight: 190 lb 4.143 oz Body Mass Index (BMI) 31.3 Intake & Output: Intake and Output for Last 24 Hours 05/16/21 05/17/21 05/18/21 23:59 23:59 23:59 Intake Total 2481.67 / 2721.67 3590 / 3590 3310 / 3310 Output Total 3600 / 4300 3950 / 3950 3125 / 3125 Balance -1118.33 / -1578.33 -360 / -360 185 / 185 Medical Nutrition Assessment Dietitian: Nutrition Therapy Diagnosis Start: 05/15/21 11:47 Freq: Status: Active Protocol: Document 05/17/21 15:33 AG (Rec: 05/17/21 15:33 [id number]) Nutrition Malnutrition Evidence of Malnutrition Exists No Intake Problem Inadequate Oral Intake Etiology r/t decreased appetite, altered tastes Signs/Symptoms as evidenced by reported intake meeting <50% of estimated nutritional needs x 3 days Status Active Problem Increased Nutrient Needs (specify) Etiology (protein) related to increased protein needs d/t pressure injury, sepsis, lymphoma Signs/Symptoms as evidenced by 11 by 8.5 by 3 .2 cm sacral pressure injury Status Active Problem Recommendation Dietitian Recommendations/Changes Regular diet d/t risk for malnutrition. Ensure Enlive 120mL w/ meals. Shaan BID for wound healing. Lab / Micro Data Result Diagrams: 05/18/21 06:18 05/18/21 06:18 Labs: Laboratory Results - last 24 hr 05/17/21 16:58: Vancomycin Trough 15.8 H 05/18/21 06:18: WBC 12.5 H, RBC 3.74 L, Hgb 9.3 L, Hct 29.5 L, MCV 78.9 L, MCH 24.9 L, MCHC 31.5 L, RDW Std Deviation 48.4 H, RDW Coeff of Ivory 16.9 H, Plt Count 384, MPV 9.2, Immature Gran % (Auto) 0.800, Neut % (Auto) 76.7 H, Lymph % (Auto) 12.8 L, [place] % (Auto) 7.7, Eos % (Auto) 1.8, Baso % (Auto) 0.2, Absolute Neuts (auto) 9.6 H, Absolute Lymphs (auto) 1.59, Nucleated RBC % 0 05/18/21 06:18: Sodium 143, Potassium 3.4 L, Chloride 112 H, Carbon Dioxide 26.0, Anion Gap 5, BUN 5 L, Creatinine 0.18 L, Estim Creat Clear Calc 41.33, Est GFR (MDRD) Af Amer 498, Est GFR (MDRD) Non-Af 411, BUN/Creatinine Ratio 27.6 H, Glucose 89, Calcium 7.9 L Micro: Microbiology 05/15/21 Unknown Wound - Buttock Gram Stain - Final 05/15/21 Unknown Wound - Buttock Wound Culture - Final Escherichia coli Vancomycin Resist. E. faecalis Vanc. Resist. E. gallinarum 05/15/21 Unknown Wound - Buttock Anaerobic Culture - Preliminary Checking for anaerobes, further studies to follow. 05/15/21 Unknown Wound - Buttock Gram Stain - Final 05/15/21 Unknown Wound - Buttock Wound Culture - Final Escherichia coli Klebsiella spp. Vanc. Resist. E. gallinarum Vancomycin Resist. E. faecalis 05/15/21 Unknown Wound - Buttock Anaerobic Culture - Preliminary Checking for anaerobes, further studies to fol low. 05/14/21 16:13 Blood Culture (Wb) - Right Forearm Blood Culture - Final Gram negative mukesh Vancomycin Resist. E. faecalis 05/14/21 16:25 Blood Culture (Wb) - Anticubital Left Blood Culture - Final Escherichia coli 05/14/21 18:05 Urine, Clean Catch Urine Culture - Final Enterobacter cloacae complex Physical Exam Const oriented x3 and no apparent distress Resp normal respiratory effort Cardio regular rate GI soft to palpation and non-tender Extremity no calf tenderness Skin Wound Narrative: Sacral woudn stable with wound VAC in place at 150 mmHg. Neuro oriented x3 and CN's II-XII intact bilaterally Psych mental status grossly normal Assessment & Plan Assessment/Plan (1) Osteomyelitis of pelvis: (2) Decubitus ulcer, infected: QUALIFIERS: Pressure injury stage: stage 4 Qualified Code(s): L89.94 - Pressure ulcer of unspecified site, stage 4; L08.9 - Local infection of the skin and subcutaneous tissue, unspecified (3) Pressure ulcer of sacral region, stage 4: (4) Acute postoperative anemia due to expected blood loss: (5) Diffuse large B-cell lymphoma: QUALIFIERS: Lymphoma site: extranodal excluding spleen and other solid organs Qualified Code(s): C83.39 - Diffuse large B-cell lymphoma, extranodal and solid organ sites (6) Debility: PLAN: Wound is stable with no active bleeding. Wound VAC at 150 mmHg. Operative tissue culture positive for Escherichia coli, Klebsiella, Vanc. Resist. E. gallinarum, Vanc. Resist. E. faecalis. Operative bone culture positive for Escherichia coli, Vanc. Resist. E. faecalis, Vanc. Resist. E. gallinarum. She is on Meropenem, Vancomycin has been stopped and Linezolid started. ID is managing. Hgb 9.3 today up from 7.4 yesterday. K+ 3.4 today, from 3.1 yesterday. Patient is being managed by medicine. Will continue to monitor. Patient had her second radiation treatment today for her diffuse large B-cell lymphoma. Prealbumin 4.9 on 05/17. Encouraged increase protein intake to help with wound healing. Will start Shaan protein supplements twice daily. When she is discharged home, she will follow up at the wound healing center for management of her wound. Charges/Coding Procedures Integumentary [id number]: [id number] Global Visit
[2021-05-18] MEDS: hydrALAZINE 20 MG/ML Vial 10 MG IV (20:34)
[2021-05-18] MEDS: Acetaminophen 500 MG Tablet 1000 MG PO (21:37)
[2021-05-18] MEDS: Atorvastatin Calcium 40 MG Tablet PO (21:37)
[2021-05-18] MEDS: MELATONIN 3 MG TABLET PO (21:37)
[2021-05-19 03:00] VITALS: PULSE 94
[2021-05-19 03:30] VITALS: BP 150/69; PULSE 93; RESP 18; TEMP 36.8; O2SAT 96
[2021-05-19] MEDS: Gabapentin 300 MG Capsule PO ×2 (06:03→15:12)
--- NOTE | 2021-05-19 07:26 | PCM.PN.HOSP ---
Subjective Subjective Patient seen. Adjusted antibiotic the day prior. Case discussed with infectious disease. Patient will be discharged to the transitional care unit. Objective Data Objective Data Vital Signs: Vital Signs Temp Pulse Resp BP Pulse Ox 98.3 F 93 18 150/69 H 96 05/19/21 03:30 05/19/21 03:30 05/19/21 03:30 05/19/21 03:30 05/19/21 03:30 Oxygen Flow Rate (L/min) 2 Oxygen Delivery Method Room Air Weight: 85.6 kg Body Mass Index (BMI) 31.3 Intake & Output: Intake and Output for Last 24 Hours 05/17/21 05/18/21 05/19/21 23:59 23:59 23:59 Intake Total 3590 / 3590 4790 / 4790 540 / 540 Output Total 3950 / 3950 4900 / 4900 1225 / 1225 Balance -360 / -360 -110 / -110 -685 / -685 Medical Nutrition Assessment Dietitian: Nutrition Therapy Diagnosis Start: 05/15/21 11:47 Freq: Status: Active Protocol: Document 05/17/21 15:33 AG (Rec: 05/17/21 15:33 [id number]) Nutrition Malnutrition Evidence of Malnutrition Exists No Intake Problem Inadequate Oral Intake Etiology r/t decreased appetite, altered tastes Signs/Symptoms as evidenced by reported intake meeting <50% of estimated nutritional needs x 3 days Status Active Problem Increased Nutrient Needs (specify) Etiology (protein) related to increased protein needs d/t pressure injury, sepsis, lymphoma Signs/Symptoms as evidenced by 11 by 8.5 by 3 .2 cm sacral pressure injury Status Active Problem Recommendation Dietitian Recommendations/Changes Regular diet d/t risk for malnutrition. Ensure Enlive 120mL w/ meals. Shaan BID for wound healing. Lab / Micro Data Result Diagrams: 05/18/21 06:18 05/18/21 06:18 Micro: Microbiology 05/15/21 Unknown Wound - Buttock Gram Stain - Final 05/15/21 Unknown Wound - Buttock Wound Culture - Final Escherichia coli Vancomycin Resist. E. faecalis Vanc. Resist. E. gallinarum 05/15/21 Unknown Wound - Buttock Anaerobic Culture - Preliminary Checking for anaerobes, further studies to follow. 05/15/21 Unknown Wound - Buttock Gram Stain - Final 05/15/21 Unknown Wound - Buttock Wound Culture - Final Escherichia coli Klebsiella spp. Vanc. Resist. E. gallinarum Vancomycin Resist. E. faecalis 05/15/21 Unknown Wound - Buttock Anaerobic Culture - Preliminary Checking for anaerobes, further studies to follow. 05/14/21 16:13 Blood Culture (Wb) - Right Forearm Blood Culture - Final Gram negative mukesh Vancomycin Resist. E. faecalis 05/14/21 16:25 Blood Culture (Wb) - Anticubital Left Blood Culture - Final Escherichia coli 05/14/21 18:05 Urine, Clean Catch Urine Culture - Final Enterobacter cloacae complex Physical Exam Narrative GENERAL: cooperative HEENT: Atraumatic; EYES; Anicteric, Normal Conjunctiva NECK; supple, normal thyroid, RESPIRATORY: Diminished to auscultation CARDIOVASCULAR: Regular S1 S2, GI: soft, normoactive bowel sounds, : No Renal angle tenderness; EXTREMITIES: No edema, no clubbing, MUSCULOSKELETAL: no muscle waisting NEURO: Awake; no lateralizing signs. SKIN: Sacral decubitus ulcer PSYCH; Flat affect Assessment & Plan Assessment/Plan (1) Severe sepsis: (2) Decubital ulcer: QUALIFIERS: Laterality: unspecified laterality Pressure injury location: buttock Pressure injury stage: unstageable Qualified Code(s): L89.300 - Pressure ulcer of unspecified buttock, unstageable PLAN: Patient is a 75-year-old lady with with paraplegia, decubitus ulcer who was transferred from the transitional care unit to the ED on account of fever. An assessment of severe sepsis secondary to infected decubitus ulcer as well as suspected UTI made admitted to the intensive care unit for further management 1. Severe sepsis - secondary to infected decubitus ulcer as well as suspected UTI made admitted to the intensive care unit for further management. Patient started on IV fluid resuscitation per protocol broad-spectrum antibiotic therapy with Vanco and Zosyn after cultures have been sent. Patient blood cultures so far positive for gram-negative rods and gram-positive cocci in pairs and chains. Urine cultures positive for gram-negative rods.. Patient WBC count trending up. Consult placed to Dr. Maciel as well as infectious disease -05/16/2021 patient underwent Excision necrotic sacral pressure sore, Stage IV, with partial ostectomy for osteomyelitis by Dr. Maciel on 05/15/2021 ?05/17/2021; remains on broad-spectrum antibiotic therapy. Cultures positive for E. coli and gram-positive cocci final identification and sensitivities pending. 05/18/2021; Patient wound cultures reviewed significant for; Escherichia coli, Klebsiella spp, Vanc. Resist. E. gallinarum Vancomycin Resist. E. faecalis. Adjusted antibiotic therapy based on above discontinued vancomycin patient started on Zyvox. On auto was given for patient to have a PICC line placed -05/19/2021; Patient seen. Adjusted antibiotic the day prior. Case discussed with infectious disease. Patient will be discharged to the transitional care unit. 2. Anemia ?Secondary to acute blood loss anemia following surgery. Hemoglobin down to 7.4. With the patient being deemed to be symptomatic and order was given for patient to be transfused with 1 unit PRBC ?05/18/2021; hemoglobin up to 9.3 3. 5. Paroxysmal A. fib ?Rate controlled with amiodarone, on systemic anticoagulation with Eliquis which is currently being held in view of anticipation of patient surgical debridement. -05/16/2021 patient went into A. fib with RVR during the night 4. 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 Patient was added to the transitional care unit undergoing rehab 5. Large B-cell lymphoma - per Hx -05/17/2021; scheduled to undergo radiation therapy this a.m. 6. Coronary artery disease -status post CABGNeuropathy Gabapentin continued 7. DVT prophylaxis SCD ordered. Charges/Coding Visit Charges Inpatient E&M: 04701 Subs Hosp L2
[2021-05-19 07:49] VITALS: PULSE 99
[2021-05-19 07:58] VITALS: O2SAT 98
[2021-05-19] MEDS: Amiodarone 200 MG Tablet 400 MG PO (08:38)
[2021-05-19] MEDS: Aspirin 81 MG TAB.CHEW PO (08:40)
[2021-05-19] MEDS: Juven (unflavored) Packet 1 PACKET PO (08:40)
[2021-05-19] MEDS: Multivitamins,Therapeutic Tablet 1 TABLET PO (08:40)
--- NOTE | 2021-05-19 09:07 | DS.PCM_ITS ---
Providers Date of Admission: 05/14/21 Primary Care Physician: Dr. Modesto Fulton MD Consultations 05/14/21 20:50 Consult: Electronics Scale Tester / Pulmonary Medicine Routine Consulting Provider: Zen Fulton Reason for Consult: Severe sepsis EMERGENT Consult: No Notified: Yes Date Notified: 05/14/21 Time Notified: 19:47 Method of Notification: Text Consult: Onc/Wound/design director Routine Comment: Reason for Consult:: decubitus ulcer Consult: Plastic Surgery Routine Consulting Provider: Brice Maciel Reason for Consult: decubitus ulcer EMERGENT Consult: No Notified: Yes Date Notified: 05/14/21 Time Notified: 19:48 Method of Notification: Verbal 05/15/21 11:53 Consult: Infectious Disease Routine Consulting Provider: Favian Nguyen Reason for Consult: bactermia EMERGENT Consult: No Notified: Yes Date Notified: 05/15/21 Time Notified: 11:53 Method of Notification: Text Reason For Visit: SEVERE SEPSIS Diagnosis Discharge Diagnosis (1) Severe sepsis: Status: Acute Code(s): A41.9 - Sepsis, unspecified organism; R65.20 - Severe sepsis without septic shock (2) Decubital ulcer: Status: Acute Code(s): L89.90 - Pressure ulcer of unspecified site, unspecified stage Qualifiers: Laterality: unspecified laterality Pressure injury location: buttock Pressure injury stage: unstageable Qualified Code(s): L89.300 - Pressure ulcer of unspecified buttock, unstageable Medications at Discharge Home Medications acetaminophen 500 mg tablet 1,000 mg PO Q6H PRN tab 05/08/21 apixaban 5 mg tablet 5 mg PO BID 05/08/21 atorvastatin 40 mg tablet 40 mg PO DAILY 05/08/21 bisacodyl 10 mg rectal suppository 10 mg SC DAILY PRN 05/08/21 gabapentin 300 mg capsule 300 mg PO TID 05/08/21 lisinopril 5 mg tablet 5 mg PO DAILY 05/08/21 melatonin 3 mg capsule 3 mg PO HS 05/08/21 metoprolol succinate 50 mg tablet,extended release 24 hr 50 mg PO Q6H 05/08/21 polyethylene glycol 3350 17 gram/dose oral powder 17 g PO DAILY 05/08/21 sennosides 8.6 mg capsule 8.6 mg PO BID 05/08/21 amiodarone 400 mg PO DAILY 05/14/21 aspirin 81 mg PO DAILY 05/14/21 multivitamin 1 tab PO DAILY 05/14/21 prochlorperazine maleate [Compazine] 10 mg PO Q6H PRN 05/14/21 [id number] [Shaan (with collagen)] 1 packet PO BIDCM #0 ea 05/19/21 linezolid [Zyvox] 600 mg PO Q12H 40 Days #80 tab 05/19/21 meropenem 1 g IV Q8 40 Days #0 ea 05/19/21 Hospital Course Summary of Care Provided Minutes Spent on Discharge: 35 Hospital Course: Patient is a 75-year-old lady with with paraplegia, decubitus ulcer who was transferred from the transitional care unit to the ED on account of fever. An assessment of severe sepsis secondary to infected decubitus ulcer as well as suspected UTI made admitted to the intensive care unit for further management 1. Severe sepsis - secondary to infected decubitus ulcer as well as suspected UTI made admitted to the intensive care unit for further management. Patient started on IV fluid resuscitation per protocol broad-spectrum antibiotic therapy with Vanco and Zosyn after cultures have been sent. Patient blood cultures so far positive for gram-negative rods and gram-positive cocci in pairs and chains. Urine cultures positive for gram-negative rods.. Patient WBC count trending up. Consult placed to Dr. Maciel as well as infectious disease -05/16/2021 patient underwent Excision necrotic sacral pressure sore, Stage IV, with partial ostectomy for osteomyelitis by Dr. Maciel on 05/15/2021 ?05/17/2021; remains on broad-spectrum antibiotic therapy. Cultures positive for E. coli and gram-positive cocci final identification and sensitivities pending. 05/18/2021; Patient wound cultures reviewed significant for; Escherichia coli, Klebsiella spp, Vanc. Resist. E. gallinarum Vancomycin Resist. E. faecalis. Adjusted antibiotic therapy based on above discontinued vancomycin patient started on Zyvox. On auto was given for patient to have a PICC line placed -05/19/2021. Patient was discharged to TCU to complete the 6-week treatment of meropenem and Zyvox p.o. 2. Anemia ?Secondary to acute blood loss anemia following surgery. Hemoglobin down to 7.4. With the patient being deemed to be symptomatic and order was given for patient to be transfused with 1 unit PRBC ?05/18/2021; hemoglobin up to 9.3 3. 5. Paroxysmal A. fib ?Rate controlled with amiodarone, on systemic anticoagulation with Eliquis which is currently being held in view of anticipation of patient surgical debridement. -05/16/2021 patient went into A. fib with RVR during the night 4. 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 Patient was added to the transitional care unit undergoing rehab 5. Large B-cell lymphoma - per Hx -05/17/2021; scheduled to undergo radiation therapy this a.m. 6. Coronary artery disease -status post CABGNeuropathy Gabapentin continued 7. DVT prophylaxis SCD ordered. Physical Exam Narrative GENERAL: cooperative HEENT: Atraumatic; EYES; Anicteric, Normal Conjunctiva NECK; supple, normal thyroid, RESPIRATORY: Diminished to auscultation CARDIOVASCULAR: Regular S1 S2, GI: soft, normoactive bowel sounds, : No Renal angle tenderness; EXTREMITIES: No edema, no clubbing, MUSCULOSKELETAL: no muscle waisting NEURO: Awake; no lateralizing signs. SKIN: Sacral decubitus ulcer PSYCH; Flat affect Medical Records Data Medical Nutrition Assessment Dietitian: Nutrition Therapy Diagnosis Start: 05/15/21 11:47 Freq: Status: Active Protocol: Document 05/17/21 15:33 (Rec: 05/17/21 15:33 [id number]) Nutrition Malnutrition Evidence of Malnutrition Exists No Intake Problem Inadequate Oral Intake Etiology r/t decreased appetite, altered tastes Signs/Symptoms as evidenced by reported intake meeting <50% of estimated nutritional needs x 3 days Status Active Problem Increased Nutrient Needs (specify) Etiology (protein) related to increased protein needs d/t pressure injury, sepsis, lymphoma Signs/Symptoms as evidenced by 11 by 8.5 by 3 .2 cm sacral pressure injury Status Active Problem Recommendation Dietitian Recommendations/Changes Regular diet d/t risk for malnutrition. Ensure Enlive 120mL w/ meals. Shaan BID for wound healing. Weight / BMI Weight Weight: 85.6 kg Body Mass Index (BMI) 31.3 ABG / Lab / Microbiology Data Result Diagrams: 05/18/21 06:18 05/18/21 06:18 Microbiology: Microbiology 05/15/21 Unknown Wound - Buttock Gram Stain - Final 05/15/21 Unknown Wound - Buttock Wound Culture - Final Escherichia coli Vancomycin Resist. E. faecalis Vanc. Resist. E. gallinarum 05/15/21 Unknown Wound - Buttock Anaerobic Culture - Preliminary Checking for anaerobes, further studies to follow. 05/15/21 Unknown Wound - Buttock Gram Stain - Final 05/15/21 Unknown Wound - Buttock Wound Culture - Final Escherichia coli Klebsiella spp. Vanc. Resist. E. gallinarum Vancomycin Resist. E. faecalis 05/15/21 Unknown Wound - Buttock Anaerobic Culture - Preliminary Checking for anaerobes, further studies to follow. 05/14/21 16:13 Blood Culture (Wb) - Right Forearm Blood Culture - Final Gram negative mukesh Vancomycin Resist. E. faecalis 05/14/21 16:25 Blood Culture (Wb) - Anticubital Left Blood Culture - Final Escherichia coli 05/14/21 18:05 Urine, Clean Catch Urine Culture - Final Enterobacter cloacae complex D/C Instructions Discharge Diet: No restrictions Discharge Activity: Return to Normal Activity Call your doctor if you observe: Fever of 101 or Higher, Shortness of breath, Fainting spells and Chest pain Meaningful Use Info Meaningful Use Diagnoses (Choose all that apply): None applicable Discharge Plan Admission Admit Date/Time: 05/14/21 19:49 Primary Reason for Your Visit: Infected sacral decubitus ulcer Attending Provider: Tim Gomez Primary Care Provider: Modesto Fulton Consulting Providers: Favian Nguyen ; Zen Fulton ; Brice Maciel Discharge Orders/Prescriptions Prescriptions: New meropenem 1 gram Recon Soln 1 g IV Q8 40 Days Qty: 0 RF: 0 Shaan (with collagen) 7-7-1.5 gram Powder In Packet 1 packet PO BIDCM Qty: 0 RF: 0 linezolid [Zyvox] 600 mg tablet 600 mg PO Q12H 40 Days Qty: 80 RF: 0 Continued acetaminophen [Tylenol Extra Strength] 500 mg tablet 1,000 mg PO Q6H PRN (Reason: Pain) RF: 0 polyethylene glycol 3350 [Miralax] 17 gram/dose powder 17 g PO DAILY RF: 0 senna 8.6 mg capsule 8.6 mg PO BID RF: 0 bisacodyl [Dulcolax (bisacodyl)] 10 mg suppository 10 mg SC DAILY PRN (Reason: Constipation) RF: 0 Eliquis 5 mg tablet 5 mg PO BID RF: 0 metoprolol succinate 50 mg tablet extended release 24 hr 50 mg PO Q6H RF: 0 lisinopril 5 mg tablet 5 mg PO DAILY RF: 0 atorvastatin 40 mg tablet 40 mg PO DAILY RF: 0 gabapentin 300 mg capsule 300 mg PO TID RF: 0 melatonin 3 mg capsule 3 mg PO HS RF: 0 multivitamin Tablet 1 tab PO DAILY RF: 0 amiodarone 200 mg Tablet 400 mg PO DAILY RF: 0 prochlorperazine maleate [Compazine] 10 mg Tablet 10 mg PO Q6H PRN (Reason: Nausea) RF: 0 aspirin 81 mg Tablet 81 mg PO DAILY RF: 0 Referrals / Follow Up: Modesto Fulton MD [Primary Care Provider] - Disposition Disposition (needs filled in before D/C Order can be placed): Assisted Facility Charges/Coding Visit Charges Inpatient E&M: 78402 Disch Hosp
--- NOTE | 2021-05-19 09:08 | PCM.TXEXTCAR ---
Diet 05/17/21 15:05 Diet: Regular - General Type of Dietary Supplement:: Ensure Enlive Is pt able to select menu?: Yes Diet Comments: 4 oz strawberry w/ meals Wound(s) Buttocks: Wound Type: Pressure Injury sacrum: Wound Type: Pressure Injury Dressing Change: KCI wound VAC Therapies Physical Therapy: Eval and Treat Occupational Therapy: Eval and Treat Speech Therapy: Eval and Treat Problem/Diagnosis (1) Severe sepsis: Status: Acute (2) Decubital ulcer: Status: Acute Allergies/Procedures Done in Hospital Allergies No Known Allergies Allergy (Verified 05/17/21 10:28) Type of Care/Length of Stay Estimated LOS: Convalescent Care Less Than 30 days Type of Care Needed: Skilled Rehab Potential: Good Prognosis: Good Additional Orders/Day of Discharge Day of Discharge: 05/19/21 Dietary and Speech Recommendations Dietitian Recommendations/Changes: Regular diet d/t risk for malnutrition. Ensure Enlive 120mL w/ meals. Shaan BID for wound healing. Discharge Plan Admission Admit Date/Time: 05/14/21 19:49 Primary Reason for Your Visit: Infected sacral decubitus ulcer Attending Provider: Tim Gomez Primary Care Provider: Modesto Fulton Consulting Providers: Favian Nguyen ; Zen Fulton ; Brice Maciel Discharge Orders/Prescriptions Prescriptions: New meropenem 1 gram Recon Soln 1 g IV Q8 40 Days Qty: 0 RF: 0 Shaan (with collagen) 7-7-1.5 gram Powder In Packet 1 packet PO BIDCM Qty: 0 RF: 0 linezolid [Zyvox] 600 mg tablet 600 mg PO Q12H 40 Days Qty: 80 RF: 0 Continued acetaminophen [Tylenol Extra Strength] 500 mg tablet 1,000 mg PO Q6H PRN (Reason: Pain) RF: 0 polyethylene glycol 3350 [Miralax] 17 gram/dose powder 17 g PO DAILY RF: 0 senna 8.6 mg capsule 8.6 mg PO BID RF: 0 bisacodyl [Dulcolax (bisacodyl)] 10 mg suppository 10 mg NE DAILY PRN (Reason: Constipation) RF: 0 Eliquis 5 mg tablet 5 mg PO BID RF: 0 metoprolol succinate 50 mg tablet extended release 24 hr 50 mg PO Q6H RF: 0 lisinopril 5 mg tablet 5 mg PO DAILY RF: 0 atorvastatin 40 mg tablet 40 mg PO DAILY RF: 0 gabapentin 300 mg capsule 300 mg PO TID RF: 0 melatonin 3 mg capsule 3 mg PO HS RF: 0 multivitamin Tablet 1 tab PO DAILY RF: 0 amiodarone 200 mg Tablet 400 mg PO DAILY RF: 0 prochlorperazine maleate [Compazine] 10 mg Tablet 10 mg PO Q6H PRN (Reason: Nausea) RF: 0 aspirin 81 mg Tablet 81 mg PO DAILY RF: 0 Referrals / Follow Up: Modesto Fulton MD [Primary Care Provider] - Disposition Disposition (needs filled in before D/C Order can be placed): Residential Facility
[2021-05-19 09:30] VITALS: BP 151/79; PULSE 99; RESP 18; TEMP 36.8; O2SAT 97
--- NOTE | 2021-05-19 09:41 | CASEMGMT ---
Patient is ready for discharge back to [facility] TCU. SW notified Jill in TCU. Orders were copied. Plan: d/c back to [facility] TCU under skilled level of care. Maribel ABREU
[2021-05-19] MEDS: Linezolid 600 MG 600 MG/300 ML BAG 200 MG IV (10:20)
--- NOTE | 2021-05-19 13:29 | EX.PCM.CON.S ---
Assessment & Plan Assessment/Plan (1) Pressure ulcer of sacral region, stage 4: PLAN: I have been asked to consult on Mrs. Enriquez regarding a possible diverting colostomy so as to improve her ability to heal her sacral decubitus ulcer. At this time she is still recovering from an acute septic event and remains on antibiotic therapy with her last CBC demonstrating a leukocytosis with left shift. Beyond this, her chemistries reveal severe protein calorie malnutrition with an albumin of 2 and prealbumin of 4.9. While she is amenable to a laparoscopic diverting colostomy as described, I have advised we postpone further discussions for at least 2 weeks to see if time will permit improvements in both her nutrition as well as give her time to clear her infection and regain some strength. I will plan to visit with her in a couple of weeks to update on her clinical status and determine better the timing of her proposed operation. All questions were taken from both and Mrs. Enriquez and answered to their satisfaction. They are in agreement with the above plan as described. 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 This decubitus wound has been debrided by Dr. Maciel of plastic surgery and the patient is receiving ongoing antibiotic therapy for a polymicrobial infection including VRE with Zyvox via a right upper extremity PICC line. She is scheduled for discharge to the transitional care unit today where she will continue to receive antibiotic therapy, wound care therapy, and resume radiation therapy for the tumor found on her spine. [facility] Medical History Afib Decubitus ulcer Large cell lymphoma Myocardial infarct Paraplegia Home Medications acetaminophen 500 mg tablet 1,000 mg PO Q6H PRN tab 05/08/21 [History Last Taken Unknown] apixaban 5 mg tablet 5 mg PO BID 05/08/21 [History Last Taken Unknown] atorvastatin 40 mg tablet 40 mg PO DAILY 05/08/21 [History Last Taken Unknown] bisacodyl 10 mg rectal suppository 10 mg GA DAILY PRN 05/08/21 [History Last Taken Unknown] gabapentin 300 mg capsule 300 mg PO TID 05/08/21 [History Last Taken Unknown] lisinopril 5 mg tablet 5 mg PO DAILY 05/08/21 [History Last Taken Unknown] melatonin 3 mg capsule 3 mg PO HS 05/08/21 [History Last Taken Unknown] metoprolol succinate 50 mg tablet,extended release 24 hr 50 mg PO Q6H 05/08/21 [History Last Taken Unknown] polyethylene glycol 3350 17 gram/dose oral powder 17 g PO DAILY 05/08/21 [History Last Taken Unknown] sennosides 8.6 mg capsule 8.6 mg PO BID 05/08/21 [History Last Taken Unknown] amiodarone 400 mg PO DAILY 05/14/21 [History Last Taken Unknown] aspirin 81 mg PO DAILY 05/14/21 [History Last Taken Unknown] multivitamin 1 tab PO DAILY 05/14/21 [History Last Taken Unknown] prochlorperazine maleate [Compazine] 10 mg PO Q6H PRN 05/14/21 [History Last Taken Unknown] [id number] [Shaan (with collagen)] 1 packet PO BIDCM #0 ea 05/19/21 [Rx Last Taken Unknown] linezolid [Zyvox] 600 mg PO Q12H 40 Days #80 tab 05/19/21 [Rx Last Taken Unknown] meropenem 1 g IV Q8 40 Days #0 ea 05/19/21 [Rx Last Taken Unknown] Allergy/AdvReac Type Severity Reaction Status Date / Time No Known Allergies Allergy Verified 05/17/21 10:28 Family History Father CHF (congestive heart failure) Mother CAD (coronary artery disease) Alzheimer disease Surgical History Hx of CABG S/P cholecystectomy Social History household members: family housing: house number of children: 5 Smoking Status: Never smoker alcohol intake: never substance use type: does not use chris/religious: Hinduism Physical Exam Const alert, oriented x3, no apparent distress and well nourished General Appearance: cooperative and comfortable Resp normal respiratory effort and no use of accessory muscles Effort and Inspection: able to speak in complete sentences GI soft to palpation, non-tender and non-distended GI Narrative: Transverse umbilical scar consistent with patient's history of prior laparoscopic cholecystectomy Inspection: scar Back/Spine Back/Spine Narrative: Patient has a longitudinal incision over the upper portion of her thoracic spine consistent with her prior surgery of removal of lymphoma mass. This area appears to now be well-healed. In the sacral region, patient has approximately 8-9 cm diameter defect where the decubitus ulcer has been debrided. There is currently a wound VAC in place with excellent seal and draining thin red to brown discharge. There is no apparent gross contamination from the fecal stream. However, the patient's anus is approximately 3 to 4 cm caudad. Medical Records Data Medical Nutrition Assessment Dietitian: Nutrition Therapy Diagnosis Start: 05/15/21 11:47 Freq: Status: Active Protocol: Document 05/17/21 15:33 AG (Rec: 05/17/21 15:33 AG [id number]) Nutrition Malnutrition Evidence of Malnutrition Exists No Intake Problem Inadequate Oral Intake Etiology r/t decreased appetite, altered tastes Signs/Symptoms as evidenced by reported intake meeting <50% of estimated nutritional needs x 3 days Status Active Problem Increased Nutrient Needs (specify) Etiology (protein) related to increased protein needs d/t pressure injury, sepsis, lymphoma Signs/Symptoms as evidenced by 11 by 8.5 by 3 .2 cm sacral pressure injury Status Active Problem Recommendation Dietitian Recommendations/Changes Regular diet d/t risk for malnutrition. Ensure Enlive 120mL w/ meals. Shaan BID for wound healing. Lab / Micro Data Result Diagrams: 05/18/21 06:18 05/18/21 06:18 Micro: Microbiology 05/15/21 Unknown Wound - Buttock Gram Stain - Final 05/15/21 Unknown Wound - Buttock Wound Culture - Final Escherichia coli Vancomycin Resist. E. faecalis Vanc. Resist. E. gallinarum 05/15/21 Unknown Wound - Buttock Anaerobic Culture - Preliminary Checking for anaerobes, further studies to follow. 05/15/21 Unknown Wound - Buttock Gram Stain - Final 05/15/21 Unknown Wound - Buttock Wound Culture - Final Escherichia coli Klebsiella spp. Vanc. Resist. E. gallinarum Vancomycin Resist. E. faecalis 05/15/21 Unknown Wound - Buttock Anaerobic Culture - Preliminary Checking for anaerobes, further studies to follow.
--- NOTE | 2021-05-19 15:10 | CASEMGMT ---
JOON spoke with patient and her and they are aware she will be returning to TCU today. Plan: d/c back to TCU under skilled level of care. Maribel ABREU
--- NOTE | 2021-05-19 15:23 | NURSING ---
wound photo: sacrum
[2021-05-19 15:30] VITALS: BP 152/71; PULSE 101; RESP 18; TEMP 36.8; O2SAT 97
== END 2021-05-19 16:39 | disposition skilled nursing facility (03) | DRG 853 ==
LOC: ED 17:23 → ICU 20:02 → PCU 05-16 23:04
PROVIDERS: Internal Medicine Critical Care Medicine; Nurse Practitioner Family; Surgery; Admitting Provider Hospitalist; Emergency Provider Emergency Medicine; PCP Family Medicine; Visit Provider Internal Medicine
PROC: 0QB10ZZ Excision of Sacrum, Open Approach (ICD-10-PCS; CPT 15999; principal; 2021-05-15 11:45)
DX: A41.9 Sepsis, unspecified organism (principal); L89.154 Pressure ulcer of sacral region, stage 4; E43 Unspecified severe protein-calorie malnutrition; D62 Acute posthemorrhagic anemia; G82.20 Paraplegia, unspecified; G95.29 Other cord compression; C83.39 Diffuse large B-cell lymphoma, extranodal and solid organ sites; N39.0 Urinary tract infection, site not specified; Z16.21 Resistance to vancomycin; M46.28 Osteomyelitis of vertebra, sacral and sacrococcygeal region; R65.20 Severe sepsis without septic shock; I48.0 Paroxysmal atrial fibrillation; I25.10 Atherosclerotic heart disease of native coronary artery without angina pectoris; G62.9 Polyneuropathy, unspecified; E78.5 Hyperlipidemia, unspecified; I10 Essential (primary) hypertension; B96.20 Unspecified Escherichia coli [E. coli] as the cause of diseases classified elsewhere; E87.6 Hypokalemia; L08.9 Local infection of the skin and subcutaneous tissue, unspecified; B96.1 Klebsiella pneumoniae [K. pneumoniae] as the cause of diseases classified elsewhere; I25.2 Old myocardial infarction; Z79.01 Long term (current) use of anticoagulants; Z79.899 Other long term (current) drug therapy; Z79.82 Long term (current) use of aspirin; Z95.1 Presence of aortocoronary bypass graft; Z68.31 Body mass index [BMI] 31.0-31.9, adult
CPT/HCPCS: 36415; 36569; 71045; 80048; 80053; 80202; 81001; 83605; 84134; 85025; 86850; 86900; 86901; 87040; 87070; 87075; 87077; 87086; 87088; 87102; 87186; 87205; 87206; 88305; 88311; 93005; 94762; 97110; 97162; 97167; 97530; 97535; 97803; 99282; J2020; J2185; J7030; J7040; J7050; A4216

== ENCOUNTER 2021-05-19 16:55 | Inpatient (IN) | payer SELFPAY, OTHER ==
[2021-05-15 09:40] VITALS: BMI 31.3
[2021-05-19 17:33] VITALS: BP 152/68; PULSE 109; RESP 18; TEMP 37.1; O2SAT 95; BMI 31.6
--- NOTE | 2021-05-19 19:10 | HP.PCM_ITS ---
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 Recent hospitalization for atrial fibrillation with rapid ventricular response. Worsening sacral pressure ulcer which required debridement in OR. 05/14/2021 Presented to [facility] Emergency Department with fever 103. 05/14/2021 Admit to Hospital for sepsis, infected sacral pressure ulcer. Blood cultures sent, Urine cultures sent. Vancomycin, Zosyn, IV fluid bolus given for sepsis. Consult Dr. Maciel, Plastic Surgery. 05/15/2021 Dr. Fulton recommended continuing IV antibiotics, pending infection workup. Fluid resuscitation adequate. Plan for surgical debridement of sacral pressure ulcer per Plastic Surgery. 05/15/2021 Blood culture positive for gram negative rods, gram positive cocci in pairs, chains. Urine culture growing gram negative rods. Patient declined COVID19 vaccine. 05/15/2021 Dr. Maciel performed excision necrotic sacral pressure sore, Stage 4 with partial ostectomy for osteomyelitis. 05/16/2021 Continue Vancomycin, Zosyn IV. Transfuse 1 unit PRBC for hemoglobin 7.7. Atrial fibrillation with rapid ventricular response overnight. 05/17/2021 Culture growing E. Coli. 05/17/2021 Radiation for diffuse large B cell lymphoma. 05/18/2021 Wound culture growing E. Coli, Klebsiella, Vancomycin resistant enterococcus gallinarum, Vancomycin resisistant enterococcus faecalis. Vancomycin stopped, Zyvox staretd, continue Meropenem. PICC line ordered. Hemoglobin 9.3 after transfusion. 05/19/2021 Admit to TCU with debility, here for rehabilitation, strengthening, intravenous antibiotics, prior to discharge home with family. [facility] Medical History Afib Decubitus ulcer Large cell lymphoma Myocardial infarct Paraplegia Home Medications acetaminophen 500 mg tablet 1,000 mg PO Q6H PRN tab 05/08/21 [History Last Taken Unknown] apixaban 5 mg tablet 5 mg PO BID 05/08/21 [History Last Taken Unknown] atorvastatin 40 mg tablet 40 mg PO DAILY 05/08/21 [History Last Taken Unknown] bisacodyl 10 mg rectal suppository 10 mg OR DAILY PRN 05/08/21 [History Last Taken Unknown] gabapentin 300 mg capsule 300 mg PO TID 05/08/21 [History Last Taken Unknown] lisinopril 5 mg tablet 5 mg PO DAILY 05/08/21 [History Last Taken Unknown] melatonin 3 mg capsule 3 mg PO HS 05/08/21 [History Last Taken Unknown] metoprolol succinate 50 mg tablet,extended release 24 hr 50 mg PO Q6H 05/08/21 [History Last Taken Unknown] polyethylene glycol 3350 17 gram/dose oral powder 17 g PO DAILY 05/08/21 [History Last Taken Unknown] sennosides 8.6 mg capsule 8.6 mg PO BID 05/08/21 [History Last Taken Unknown] amiodarone 400 mg PO DAILY 05/14/21 [History Last Taken Unknown] aspirin 81 mg PO DAILY 05/14/21 [History Last Taken Unknown] multivitamin 1 tab PO DAILY 05/14/21 [History Last Taken Unknown] prochlorperazine maleate [Compazine] 10 mg PO Q6H PRN 05/14/21 [History Last Taken Unknown] [id number] [Shaan (with collagen)] 1 packet PO BIDCM 05/19/21 [History Last Taken Unknown] linezolid [Zyvox] 600 mg PO Q12H 05/19/21 [History Last Taken Unknown] meropenem 1 g IV Q8 05/19/21 [History Last Taken Unknown] Allergy/AdvReac Type Severity Reaction Status Date / Time No Known Allergies Allergy Verified 05/17/21 10:28 Family History Father CHF (congestive heart failure) Mother CAD (coronary artery disease) Alzheimer disease Surgical History Hx of CABG S/P cholecystectomy Social History household members: family housing: house number of children: 5 Smoking Status: Never smoker alcohol intake: never substance use type: does not use chris/confucianist: Religion ROS Constitutional Constitutional: Denies chills, fever(s) or weight gain ENT HEENT: Denies headache(s), nasal congestion or nasal discharge Cardiovascular Cardiovascular: Denies chest pain or palpitations Respiratory/Chest Respiratory/Chest: Denies cough, excessive phlegm production or shortness of breath with exertion Gastrointestinal Gastrointestinal: Denies abdominal pain, nausea or vomiting Genitourinary Genitourinary: Denies dysuria Musculoskeletal Musculoskeletal: Denies joint pain or joint swelling Integumentary Integumentary: Denies rash or wounds Neurologic Neurologic: Denies focal weakness, numbness or tingling Psychiatric Psychiatric: Reports auditory hallucinations; Denies anxiety, depression, homicidal ideation or suicidal ideation Vital Signs Vital Signs Vital Signs: 05/19/21 17:33 Temperature 98.8 F Temperature Source Oral Pulse Rate 109 H Respiratory Rate 18 Blood Pressure 152/68 H Blood Pressure Mean 96 Blood Pressure Source Monitor Blood Pressure Position Semi-Fowlers Blood Pressure Location Left Forearm Pulse Ox 95 Oxygen Delivery Method Room Air Weight Weight: 86.324 kg Body Mass Index (BMI) 31.3 Physical Exam Const alert and oriented x3 General Appearance: cooperative HEENT normocephalic Eyes PERRL and EOMs intact bilaterally Neck supple, no JVD and no carotid bruits Resp normal respiratory effort, normal air movement and clear to auscultation bilaterally Cardio regular rate and regular rhythm GI normal to inspection, nondistended, normoactive bowel sounds, non-tender and non-distended Extremity normal capillary refill General Extremity: Negative for edema Skin no rashes or lesions noted Skin Narrative: Sacral pressure ulcer per wound nurse. General Skin Exam: no breakdown Neuro Neuro Narrative: Paraplegia. Psych affect normal Appearance: appropriate Assessment & Plan Assessment/Plan (1) Debility: (2) Sepsis: (3) Decubitus ulcer, infected: QUALIFIERS: Pressure injury stage: stage 4 Qualified Code(s): L89.94 - Pressure ulcer of unspecified site, stage 4; L08.9 - Local infection of the skin and subcutaneous tissue, unspecified (4) Osteomyelitis of pelvis: (5) Atrial fibrillation with rapid ventricular response: (6) Epidural mass: (7) Paraplegia: (8) Diffuse large B cell lymphoma: (9) Coronary artery disease: (10) Neuropathic pain: PLAN: 75 year old female with below past medical history hospitalized for infected sacral pressure ulcer with osteomyelitis, underwent debridement 05/15/[address] Maciel, admitted to TCU with debility, here for rehabilitation, strengthening, intravenous antibiotics, prior to discharge home with family. * Debility - PT/OT. * Pain - Tylenol 1000mg Q6H PRN. * Bowel - Miralax 17gm daily, Senokot 1 tablet twice daily, Dulcolax 10mg pr daily prn. * Adult immunization - Administer prevnar 13, pneumovax 23, fluzone, covid19 vaccine as appropriate. * DVT prophylaxis - Not necessary, on Eliquis. * Atrial fibrillation - Metoprolol tartrate 50mg Q6H, Eliquis 5mg twice daily. * Coronary Artery Disease - Metoprolol tartrate 50mg Q6H, Lisinopril 5mg daily, Eliquis 5mg twice daily. * Hyperlipidemia - Atorvastatin 40mg QHS. * Neuropathic pain - Gabapentin 300mg three times daily. * Sacral osteomyelitis status post debridement - Zyvox 600mg po Q12H, Meropenem 1gm IV Q8H, consult Dr. Maciel, Consult Dr. Nguyen. * Insomnia - Melatonin 3mg QHS. * Nutrition - MVI daily, Shaan 1 packet twice daily. * Nausea - Compazine 10mg Q6H prn.
[2021-05-19] MEDS: Acetaminophen 500 MG Tablet 1000 MG PO (21:14)
[2021-05-19 21:16] VITALS: BP 160/73; PULSE 106
[2021-05-19] MEDS: Linezolid 600 MG Tablet PO (21:16)
[2021-05-19] MEDS: MELATONIN 3 MG TABLET PO (21:16)
[2021-05-19] MEDS: Gabapentin 300 MG Capsule PO (21:16)
[2021-05-19] MEDS: Metoprolol Tartrate 50 MG Tablet PO (21:16)
[2021-05-19] MEDS: Atorvastatin Calcium 40 MG Tablet PO (21:16)
[2021-05-19 22:33] VITALS: PULSE 106; O2SAT 94
[2021-05-20] VITALS (9 sets, daily range): BP systolic 131–146; BP diastolic 72–80; PULSE 80–92; RESP 16–18; TEMP 36.3; O2SAT 95–98
[2021-05-20] MEDS: Metoprolol Tartrate 50 MG Tablet PO ×4 (01:28→17:50)
[2021-05-20] MEDS: Gabapentin 300 MG Capsule PO ×3 (06:14→20:07)
[2021-05-20] MEDS: Lisinopril 5 MG Tablet PO (06:14)
[2021-05-20] MEDS: Senna Tablet 1 TABLET PO ×2 (06:14→17:51)
[2021-05-20] MEDS: APIXABAN 5 MG TABLET PO ×2 (06:15→17:49)
[2021-05-20] MEDS: Linezolid 600 MG Tablet PO ×2 (06:15→17:51)
[2021-05-20] MEDS: Multivitamins,Therapeutic Tablet 1 TABLET PO (09:38)
[2021-05-20] MEDS: Amiodarone 200 MG Tablet 400 MG PO (09:38)
[2021-05-20] MEDS: 0.9% Saline Lock 10 ML Syringe IV ×2 (09:54→17:48)
--- NOTE | 2021-05-20 10:04 | NURSING ---
pt requesting x4 Siderails, understands that it is against TCU policy d/t it being considered a restraint. pt verbalized understanding but wants them all up, it assists her with movement in bed for turning.
[2021-05-20 10:17] LABS: Absolute Neutrophil Count 7.1 X10^3/uL (2.0-7.7); Basophil# 0.02 X10^3/uL; Basophil% 0.2 % (0-1); Eosinophil# 0.36 X10^3/uL; Eosinophils% 3.9 % (0-5); Hematocrit 31.8 % (37-47); Hemoglobin 9.7 g/dL (12.0-15.0); Lymphocyte % 9.8 % (19-41); Mean Corp Hgb Conc 30.5 g/dL (32-36); Mean Corpuscular Hgb 24.4 pg (27.0-32.0); Mean Corpuscular Volume 79.9 fL (81-99); Monocyte% 7.6 % (0-10); NRBC Flagged by Analyzer 0 % (0-5); Neutrophil # 7.11 X10^3/uL (2.7-7.7); Neutrophil % 77.4 % (47-70); Platelet Count 413 K/mm3 (150-450); RBC Distribution Width CV 17.2 % (11.6-14.6); RBC Distribution Width SD 49.5 fl (35.1-43.9); Red Blood Count 3.98 M/mm3 (4.2-5.4); White Blood Count 9.2 K/mm3 (4.4-11.0)
[2021-05-20 10:45] LABS: Anion Gap 6 (5-15); BUN 10 mg/dL (7-18); BUN/Creat Ratio 39.1 RATIO (10-20); Chloride 107 mmol/L (98-107); Creatinine, Serum 0.26 mg/dL (0.55-1.02); EST Glomerular Filtration Rate 276 mL/min (>60); Est Glom Filt Rate - Afr Amer 334 mL/min (>60); Estimated Creatinine Clearance 41.33 ml/min; Glucose 96 mg/dL (74-106); Potassium 3.5 mmol/L (3.5-5.1); Sodium Level 141 mmol/L (136-145)
[2021-05-20] MEDS: Tuberculin,Purif.prot.deriv. 50 TU/ML Vial 0.1 ML ID (14:45)
--- NOTE | 2021-05-20 16:42 | NURSING ---
FAMILY UPDATED AT VISIT
--- NOTE | 2021-05-20 18:02 | NURSING ---
PT IN PRECAUTIONS FOR E COLI IN WOUND. ALL CARE GIVEN IN ROOM. ASKED PT VISITORS TO WEAR PPE IN ROOM WITH PT. VISITORS REFUSED. RN AWARE.
[2021-05-20] MEDS: Atorvastatin Calcium 40 MG Tablet PO (20:07)
[2021-05-20] MEDS: MELATONIN 3 MG TABLET PO (20:07)
[2021-05-20] MEDS: Acetaminophen 500 MG Tablet 1000 MG PO (20:30)
[2021-05-21] VITALS (9 sets, daily range): BP systolic 117–140; BP diastolic 57–62; PULSE 76–87; RESP 16–18; TEMP 36.3; O2SAT 94–99
[2021-05-21] MEDS: Metoprolol Tartrate 50 MG Tablet PO ×4 (00:22→18:06)
[2021-05-21] MEDS: Lisinopril 5 MG Tablet PO (06:42)
[2021-05-21] MEDS: APIXABAN 5 MG TABLET PO ×2 (06:42→18:06)
[2021-05-21] MEDS: Linezolid 600 MG Tablet PO ×2 (06:42→18:07)
[2021-05-21] MEDS: Gabapentin 300 MG Capsule PO ×3 (06:43→20:17)
[2021-05-21] MEDS: Senna Tablet 1 TABLET PO (06:43)
[2021-05-21] MEDS: Multivitamins,Therapeutic Tablet 1 TABLET PO (08:29)
[2021-05-21] MEDS: Amiodarone 200 MG Tablet 400 MG PO (08:29)
[2021-05-21] MEDS: 0.9% Saline Lock 10 ML Syringe IV ×2 (14:20→18:20)
--- NOTE | 2021-05-21 14:50 | NURSING ---
FAMILY UPDATED IN ROOM
--- NOTE | 2021-05-21 14:52 | NURSING ---
ALL CARE GIVEN IN ROOM DO TO PT IN PRECAUTIONS.
[2021-05-21] MEDS: Atorvastatin Calcium 40 MG Tablet PO (20:17)
[2021-05-21] MEDS: MELATONIN 3 MG TABLET PO (20:17)
[2021-05-21] MEDS: Acetaminophen 500 MG Tablet 1000 MG PO (20:31)
[2021-05-22] VITALS (7 sets, daily range): BP systolic 108–148; BP diastolic 58–67; PULSE 74–83; RESP 16–18; TEMP 36.7; O2SAT 97–98
[2021-05-22] MEDS: Metoprolol Tartrate 50 MG Tablet PO ×4 (00:24→18:12)
[2021-05-22] MEDS: APIXABAN 5 MG TABLET PO ×2 (06:18→18:12)
[2021-05-22] MEDS: Linezolid 600 MG Tablet PO ×2 (06:18→18:12)
[2021-05-22] MEDS: Gabapentin 300 MG Capsule PO ×3 (06:18→21:52)
[2021-05-22] MEDS: Lisinopril 5 MG Tablet PO (06:18)
[2021-05-22] MEDS: Multivitamins,Therapeutic Tablet 1 TABLET PO (08:27)
[2021-05-22] MEDS: Amiodarone 200 MG Tablet 400 MG PO (08:54)
--- NOTE | 2021-05-22 11:22 | PCM.PN.ID ---
Physical Exam Narrative Feeling better, no fever, no n/v/d. Const alert and no apparent distress General Appearance: cooperative Resp normal air movement and clear to auscultation bilaterally Cardio regular rate and regular rhythm GI normal to inspection, nondistended, normoactive bowel sounds Skin Skin Narrative: wound vac in place ID ID: Route of nutrition/ use of supplements: [] Nutritional Intake: [] IV Site: [] Gutierrez Catheter: [] Assessment & Plan Assessment/Plan (1) Paraplegia: (2) Osteomyelitis of pelvis: PLAN: severe sepsis with ecoli bacteremia, (+) ucx with enterobacter, infected sacral ulcer, recent dx DLBCL. Taken to OR 05/[address] Maciel for I&D. Surg cx with VRE x2, ecoli, kles, anaerobes. Completed course with addison for enterobacter. Will cover with linezolid/unasyn for 6 week course, stop date 06/26/21. Weekly bmp, cbc, and esr. If platelets start to drop, will change linezolid to dapto. Will follow. Have encouraged her to get covid vaccine, she is not interested.
[2021-05-22] MEDS: NYSTATIN 500,000 UNIT/5 ML UDC 500000 UNIT PO ×3 (12:32→21:51)
--- NOTE | 2021-05-22 15:05 | NURSING ---
wound photo: sacrum
--- NOTE | 2021-05-22 15:26 | CASEMGMT ---
Social Work Met with pt for assessment. Pt know to this SW from previous stay on TCU. Discussed code status and assisted pt in completing MOLST form with pt and she would like to be full code with intubation. MOLST form communicated to physician and placed on chart. A referral for palliative medicine had been made during previous visit and phone call to Palliative informing them that pt has returned. Palliative to follow up once pt discharges home. Pt is hopeful she will be able to return home at time of discharge. SW to continue to follow. JEROMY Justice
--- NOTE | 2021-05-22 16:44 | PHA.CONS_ITS ---
Progress Note - Pharmacy Subjective: TCU Admission Objective: Allergies No Known Allergies Allergy (Verified 05/17/21 10:28) Current Medications Generic Name Dose Route Start Last Admin Trade Name Sosa PRN Reason Stop Dose Admin Acetaminophen 1,000 mg 05/19/21 18:16 05/21/21 20:31 Acetaminophen 500 Mg Tablet PO 1,000 mg Q6H PRN PRN Administration Pain Score 1-10 Amiodarone HCl 400 mg 05/21/21 08:00 05/22/21 08:54 Amiodarone 200 Mg Tablet PO 400 mg DAILYCM AMISH Administration Apixaban 5 mg 05/20/21 06:00 05/22/21 06:18 Apixaban 5 Mg Tablet PO 5 mg BID AMISH Administration Atorvastatin Calcium 40 mg 05/19/21 22:00 05/21/21 20:17 Atorvastatin Calcium 40 Mg Tablet PO 40 mg QHS AMISH Administration Bisacodyl 10 mg 05/19/21 18:16 Bisacodyl 10 Mg Suppository RC DAILY PRN Constipation Gabapentin 300 mg 05/19/21 22:00 05/22/21 14:48 Gabapentin 300 Mg Capsule PO 300 mg TID AMISH Administration Heparin Sodium (Beef Lung) 50 units 05/20/21 00:22 Heparin Pf Lock 10 Units/Ml 50 Units/5 Ml Syringe IV UD PRN PICC Line Heparin Flush Sodium Chloride 250 mls @ 15 mls/hr 05/20/21 00:22 IV .[id number] PRN Saline Flush Ampicillin Sodium/Sulbactam 112 mls @ 150 mls/hr 05/22/21 14:00 05/22/21 14:45 Sodium 3 gm/ Sodium Chloride IV 06/26/21 08:00 150 mls/hr Q8 AMISH Administration L-Arginine/L-Glutamine/Calcium HMB 1 packet 05/22/21 17:00 Shaan (Unflavored) Packet PO BIDCM [facility] Linezolid 600 mg 05/19/21 19:30 05/22/21 06:18 Linezolid 600 Mg Tablet PO 600 mg Q12 AMISH Administration Lisinopril 5 mg 05/20/21 06:00 05/22/21 06:18 Lisinopril 5 Mg Tablet PO 5 mg DAILY AMISH Administration Melatonin 3 mg 05/19/21 22:00 05/21/21 20:17 Melatonin 3 Mg Tablet PO 3 mg QHS AMISH Administration Metoprolol Tartrate 50 mg 05/19/21 19:30 05/22/21 12:32 Metoprolol Tartrate 50 Mg Tablet PO 50 mg Q6 AMISH Administration Multi-Ingredient Cream 1 applic 05/20/21 22:00 05/21/21 20:17 Mineral Oil/Petrolatum,White Jar TOPICAL 1 applic HS AMISH Administration Protocol Multivitamins 1 tablet 05/20/21 08:00 05/22/21 08:27 Multivitamins,Therapeutic Tablet PO 1 tablet DAILYCM AMISH Administration Nystatin 500,000 unit 05/22/21 12:00 05/22/21 12:32 Nystatin 500,000 Unit/5 Ml Udc PO 06/01/21 12:01 500,000 unit 4X/DAY AMISH Administration Polyethylene Glycol 17 gm 05/20/21 06:00 05/22/21 06:18 Polyethylene Glycol 3350 17 Gm Packet PO Not Given DAILY AMISH Prochlorperazine Maleate 10 mg 05/19/21 19:08 Prochlorperazine 5 Mg Tablet PO Q6H PRN PRN Nausea Senna 1 tablet 05/20/21 06:00 05/22/21 06:20 Senna Tablet PO Not Given BID AMISH Sodium Chloride 10 - 40 ml 05/20/21 00:22 05/21/21 18:20 0.9% Saline Lock 10 Ml Syringe IV 10 ml UD PRN Administration Open End PICC Flush Sodium Chloride 10 - 40 ml 05/20/21 00:22 0.9 % Nacl (Sterile) Posiflush 10 Ml IV UD PRN Port access or dressing change Problem List (Last Reviewed 05/19/21 @ 19:[address] Jarod Menendez MD) Neuropathic pain (Acute) Coronary artery disease (Acute) Diffuse large B cell lymphoma (Acute) Paraplegia (Acute) Epidural mass (Acute) Atrial fibrillation with rapid ventricular response (Acute) Sepsis (Acute) Debility (Acute) Osteomyelitis of pelvis (Acute) Decubitus ulcer, infected (Acute) Vital Signs Temp Pulse Resp BP Pulse Ox 98.0 F 80 16 108/58 L 98 05/22/21 14:52 05/22/21 14:52 05/22/21 14:52 05/22/21 14:52 05/22/21 14:52 Oxygen Delivery Method Room Air Weight: 86.324 kg Body Mass Index (BMI) 31.6 Sodium 141 mmol/L (136-145) 05/20/21 10:00 Potassium 3.5 mmol/L (3.5-5.1) 05/20/21 10:00 Chloride 107 mmol/L (98-107) 05/20/21 10:00 Carbon Dioxide 28.0 mmol/L (21.0-32.0) 05/20/21 10:00 Anion Gap 6 (5-15) 05/20/21 10:00 BUN 10 mg/dL (7-18) 05/20/21 10:00 Creatinine 0.26 mg/dL (0.55-1.02) L 05/20/21 10:00 Est GFR (MDRD) Af Amer 334 mL/min (>60) 05/20/21 10:00 Est GFR (MDRD) Non-Af 276 mL/min (>60) 05/20/21 10:00 BUN/Creatinine Ratio 39.1 RATIO (10-20) H 05/20/21 10:00 Glucose 96 mg/dL (74-106) 05/20/21 10:00 Assessment/Plan: 1. Pain: acetaminophen 1000mg PO Q6H PRN pain 1-10. Please continue to monitor for increased pain and PRN usage. *2. Sacral osteomyelitis s/p debridement: ampicillin/sulbactam 3g IV Q8 thru 06/26/21 and linezolid 600mg PO Q12. Please consider adding a stop date to linezolid. Thanks. Please continue to monitor S/S of infection, diarrhea, and platelets (last 413,000). Avoid tyramine containing foods. ID is consulted. 3. Atrial fibrillation/CAD: metoprolol tartrate 50mg PO Q6, apixaban 5mg PO BID, amiodarone 400mg PO DAILYCM and lisinopril 5mg PO daily. Please continue to monitor BP (last 108/58), HR (last 80), S/S of bleeding, hemoglobin (last 9.7g/dL), potassium (last 3.5mmol/L), and cough. *4. Hyperlipidemia: atorvastatin 40mg PO QHS. Please consider ordering a lipid panel if clinically appropriate. Patient does not have one in chart. Thanks. Please continue to monitor for muscle pain. 5. Neuropathic pain: gabapentin 300mg PO TID. Please continue to monitor for neuropathic pain and renal function. 6. Insomnia: melatonin 3mg PO QHS. Please continue to monitor for excessive drowsiness. 7. Nausea: prochlorperazine 10mg PO Q6H PRN nausea. Please continue to monitor for nausea. 8. Nutrition: multivitamin 1T PO DAILYCM. Please continue to monitor. Psychotropic Medications: None *Unnecessary Medications: nystatin 500,000units PO 4x/day thru 06/01/21. I did not see a documented indication for nystatin. Please consider adding an indication. Thanks. *Bowel Regimen: Miralax 17gm PO daily, senna 8.6mg PO BID and bisacodyl 10mg RC daily PRN constipation. Patient has refused 3/3 doses of Miralax. Please consider changing from scheduled to PRN. Thanks. Please continue to monitor for constipation and PRN usage. Date of Note:: 05/22/21
[2021-05-22] MEDS: Juven (unflavored) Packet 1 PACKET PO (18:10)
[2021-05-22] MEDS: MELATONIN 3 MG TABLET PO (21:51)
[2021-05-22] MEDS: Atorvastatin Calcium 40 MG Tablet PO (21:52)
[2021-05-22] MEDS: 0.9% Saline Lock 10 ML Syringe IV (21:55)
[2021-05-23] VITALS (9 sets, daily range): BP systolic 112–128; BP diastolic 54–63; PULSE 81–88; RESP 14–18; TEMP 36.4–37.1; O2SAT 95–96
[2021-05-23] MEDS: Metoprolol Tartrate 50 MG Tablet PO ×4 (00:38→18:18)
[2021-05-23] MEDS: Lisinopril 5 MG Tablet PO (06:15)
[2021-05-23] MEDS: APIXABAN 5 MG TABLET PO ×2 (06:15→18:18)
[2021-05-23] MEDS: Linezolid 600 MG Tablet PO ×2 (06:15→18:19)
[2021-05-23] MEDS: Gabapentin 300 MG Capsule PO ×3 (06:15→20:59)
[2021-05-23] MEDS: NYSTATIN 500,000 UNIT/5 ML UDC 500000 UNIT PO ×4 (06:16→20:57)
[2021-05-23] MEDS: 0.9% Saline Lock 10 ML Syringe IV ×2 (06:24→13:56)
[2021-05-23] MEDS: Juven (unflavored) Packet 1 PACKET PO ×2 (07:55→18:17)
[2021-05-23] MEDS: Multivitamins,Therapeutic Tablet 1 TABLET PO (07:55)
[2021-05-23] MEDS: Amiodarone 200 MG Tablet 400 MG PO (07:55)
--- NOTE | 2021-05-23 11:34 | NURSING ---
Resident educated on the COVID 19 Vaccine and does not want to receive it.
--- NOTE | 2021-05-23 11:34 | NURSING ---
pt in precautions,all care given in room.
--- NOTE | 2021-05-23 14:32 | NURSING ---
FAMILY UPDATED IN ROOM
[2021-05-23] MEDS: Acetaminophen 500 MG Tablet 1000 MG PO (20:57)
[2021-05-23] MEDS: Atorvastatin Calcium 40 MG Tablet PO (20:58)
[2021-05-23] MEDS: MELATONIN 3 MG TABLET PO (20:59)
[2021-05-24 00:03] VITALS: BP 115/58; PULSE 89
[2021-05-24] MEDS: Metoprolol Tartrate 50 MG Tablet PO ×4 (00:03→17:37)
[2021-05-24 05:00] VITALS: BP 130/58; PULSE 81; RESP 18; O2SAT 96
[2021-05-24 05:42] VITALS: BP 130/58; PULSE 81
[2021-05-24] MEDS: Gabapentin 300 MG Capsule PO ×3 (05:42→20:49)
[2021-05-24] MEDS: Lisinopril 5 MG Tablet PO (05:42)
[2021-05-24] MEDS: APIXABAN 5 MG TABLET PO ×2 (05:42→17:37)
[2021-05-24] MEDS: Linezolid 600 MG Tablet PO ×2 (05:43→17:38)
[2021-05-24] MEDS: NYSTATIN 500,000 UNIT/5 ML UDC 500000 UNIT PO ×4 (05:43→20:48)
[2021-05-24] MEDS: Multivitamins,Therapeutic Tablet 1 TABLET PO (08:20)
[2021-05-24] MEDS: Amiodarone 200 MG Tablet 400 MG PO (08:20)
[2021-05-24] MEDS: Juven (unflavored) Packet 1 PACKET PO ×2 (11:02→17:37)
[2021-05-24 11:03] VITALS: PULSE 81
[2021-05-24] MEDS: proCHLORPERazine 5 MG Tablet 10 MG PO (13:25)
[2021-05-24] MEDS: 0.9% Saline Lock 10 ML Syringe IV (13:26)
--- NOTE | 2021-05-24 13:40 | PN.SURG_ITS ---
Subjective Subjective Postop #9 Patient is resting in bed. She denies any complaints. Wound VAC dressing changed. Objective Data Objective Data Vital Signs: Vital Signs Temp Pulse Resp BP Pulse Ox 97.6 F L 81 18 130/58 H 96 05/23/21 14:08 05/24/21 11:03 05/24/21 05:00 05/24/21 05:42 05/24/21 05:00 Oxygen Delivery Method Room Air Weight: 186 lb 6.4 oz Body Mass Index (BMI) 31.6 Intake & Output: Intake and Output for Last 24 Hours 05/22/21 05/23/21 05/24/21 23:59 23:59 23:59 Intake Total 1184 / 1184 944 / 944 944 / 944 Output Total 3425 / 3425 3600 / 3600 2800 / 2800 Balance -2241 / -2241 -2656 / -2656 -1856 / -1856 Medical Nutrition Assessment Dietitian: Nutrition Therapy Diagnosis Start: 05/20/21 13:16 Freq: Status: Active Protocol: Document 05/24/21 13:33 [facility] (Rec: 05/24/21 13:33 [facility] [id number]) Nutrition Malnutrition Evidence of Malnutrition Exists No Intake Problem Increased Nutrient Needs (specify) Etiology protein r/t skin status Signs/Symptoms as evidenced by need for po supplements to help w/ wound healing of stage IV sacral PI Status Active Problem Clinical Problem Altered Nutrient-Related Laboratory Values Etiology related to anemia Signs/Symptoms as evidenced by recent transfusion and Hgb 9.7, Hct 31.8 Status Active Problem Recommendation Dietitian Recommendations/Changes Will provide one salt packet w / meals Will continue diet as ordered w/ smaller portions per res request Will continue ensure enlive w/ meals and Shaan bid w/ medpass. Lab / Micro Data Result Diagrams: 05/20/21 10:00 05/20/21 10:00 Micro: Microbiology 05/21/21 08:30 Mucosa - Nose SARS-CoV-2 Antigen (Rapid) - Final Physical Exam Const oriented x3 and no apparent distress Eyes PERRL Resp normal respiratory effort Cardio regular rate GI soft to palpation and non-tender Bladder / Kidney Exam: catheter in place Extremity no calf tenderness Skin Wound Narrative: Sacral wound is clean, pink, there is bone exposure. Periwound is clear. Wound VAC dressing replaced at 150 mmHg. Psych mental status grossly normal Assessment & Plan Assessment/Plan (1) Pressure ulcer of sacral region, stage 4: (2) Osteomyelitis of pelvis: (3) Acute postoperative anemia due to expected blood loss: (4) Diffuse large B-cell lymphoma: QUALIFIERS: Lymphoma site: extranodal excluding spleen and other solid organs Qualified Code(s): C83.39 - Diffuse large B-cell lymphoma, extranodal and solid organ sites (5) Debility: PLAN: Wound is stable with no active bleeding. Wound VAC changed and at 150 mmHg. Operative tissue culture positive for Escherichia coli, Klebsiella, Vanc. R esist. E. gallinarum, Vanc. Resist. E. faecalis. Operative bone culture positive for Escherichia coli, Vanc. Resist. E. faecalis, Vanc. Resist. E. gallinarum. She is on Meropenem, Vancomycin has been stopped and Linezolid started. ID is managing. Hgb 9.7 from 05/20/21. K+ 3.5 from 05/20/21. Patient is tolerating her daily radiation treatments for her diffuse large B- cell lymphoma. Prealbumin 4.9 on 05/17. Encouraged increase protein intake to help with wound healing. She is ordered Shaan protein supplements twice daily. When she is discharged home, she will follow up at the wound healing center for management of her wound.
--- NOTE | 2021-05-24 14:37 | CASEMGMT ---
Social Work Plan of care meeting held with pt, pt spouse and pt dgt present. Pt is receiving PT/OT and nursing care for wounds. Pt is participating with therapies. [employer] was here today and assessed pt for a power wheelchair. No discharge date has been set at this time and pt is continuing to benefit from TCU stay. Pt plans to return home with her family at time of discharge. Will continue with treatment plan at this time. JEROMY Justice
--- NOTE | 2021-05-24 14:50 | CHAPLAIN ---
Type of Pastoral Visit ___ Initial Visit ___ Follow-up Visit ___ On-call Visit _x__ General Patient Visit ___ Spiritual Assessment ___ Family Conference ___ Bereavement ___ Rapid Response ___ Code Blue ___ Other (describe below) Pastoral Care Referral From _x__ Patient ___ Family ___ Nurse ___ Physician ___ Steam Gigger ___ Factory Engineer _x__ Other (describe below) Sacrament/Intervention ___ Active listening ___ Anointing ___ Synagogue ___ Bereavement ___ Communion ___ Latasha exploration ___ ___ Life review ___ Prayer ___ Reconciliation ___ Sacrament of Sick ___ Supportive presence ___ Wedding _x__ Other (describe below) Pastoral Comments request from Darion Paz for this patient and also apparently from patient herself; pt was not available at time of visit but family members were there waiting for a Care Conference; offer of support and presence to family members; acknowledgment of family that this has been a long road for patient and will probably continue to have significant needs; family would welcome support to pt at a future time
[2021-05-24] MEDS: Acetaminophen 500 MG Tablet 1000 MG PO ×2 (15:00→21:00)
[2021-05-24 16:00] VITALS: BP 142/63; PULSE 86; RESP 16; TEMP 36.7; O2SAT 99
[2021-05-24 17:37] VITALS: PULSE 86
[2021-05-24] MEDS: MELATONIN 3 MG TABLET PO (20:50)
[2021-05-24] MEDS: Atorvastatin Calcium 40 MG Tablet PO (21:05)
[2021-05-25] VITALS (8 sets, daily range): BP systolic 110–139; BP diastolic 47–66; PULSE 63–93; RESP 16–18; TEMP 36.8; O2SAT 94–95
[2021-05-25] MEDS: Metoprolol Tartrate 50 MG Tablet PO ×5 (00:33→23:05)
[2021-05-25] MEDS: Linezolid 600 MG Tablet PO ×2 (06:39→17:17)
[2021-05-25] MEDS: Lisinopril 5 MG Tablet PO (06:39)
[2021-05-25] MEDS: APIXABAN 5 MG TABLET PO ×2 (06:39→17:16)
[2021-05-25] MEDS: Gabapentin 300 MG Capsule PO ×3 (06:39→23:05)
[2021-05-25] MEDS: NYSTATIN 500,000 UNIT/5 ML UDC 500000 UNIT PO ×4 (06:39→23:04)
[2021-05-25] MEDS: Senna Tablet 1 TABLET PO (06:40)
[2021-05-25] MEDS: Multivitamins,Therapeutic Tablet 1 TABLET PO (07:48)
[2021-05-25] MEDS: Amiodarone 200 MG Tablet 400 MG PO (07:48)
[2021-05-25] MEDS: Juven (unflavored) Packet 1 PACKET PO ×2 (09:21→17:16)
--- NOTE | 2021-05-25 11:02 | PN.PALL_ITS ---
Subjective Subjective Patient originally seen for palliative consultation 05/10/2021 for debility and weakness, she was on TCU at that time. 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 She has been undergoing radiation treatments. Patient developed a fever with sepsis and was transferred to the ED, now back on TCU for further rehab. She was seen in consultation by Dr. Machado, they discussed possible diverting colostomy to improve her sacral decubitus ulcer. It was determined they would wait a couple of weeks and revisit further discussions. Nursing reports pain has been controlled with Tylenol 1 g every 6 hours as needed for pain. She was having some nausea and vomiting, Compazine has been effective. She does feel quite weak from the radiation but is continuing with therapy. Objective Data Objective Data Vital Signs: Vital Signs Temp Pulse Resp BP Pulse Ox 98.0 F 87 18 135/62 H 95 05/24/21 16:00 05/25/21 06:45 05/25/21 05:00 05/25/21 06:45 05/25/21 05:00 Oxygen Delivery Method Room Air Weight: 84.55 kg Body Mass Index (BMI) 31.6 Intake & Output: Intake and Output for Last 24 Hours 05/23/21 05/24/21 05/25/21 23:59 23:59 23:59 Intake Total 944 / 944 1216 / 1216 464 / 464 Output Total 3600 / 3600 4250 / 4250 1700 / 1700 Balance -2656 / -2656 -3034 / -3034 -1236 / -1236 Medical Nutrition Assessment Dietitian: Nutrition Therapy Diagnosis Start: 05/20/21 13:16 Freq: Status: Active Protocol: Document 05/24/21 13:33 [facility] (Rec: 05/24/21 13:33 [facility] [id number]) Nutrition Malnutrition Evidence of Malnutrition Exists No Intake Problem Increased Nutrient Needs (specify) Etiology protein r/t skin status Signs/Symptoms as evidenced by need for po supplements to help w/ wound healing of stage IV sacral PI Status Active Problem Clinical Problem Altered Nutrient-Related Laboratory Values Etiology related to anemia Signs/Symptoms as evidenced by recent transfusion and Hgb 9.7, Hct 31.8 Status Active Problem Recommendation Dietitian Recommendations/Changes Will provide one salt packet w / meals Will continue diet as ordered w/ smaller portions per res request Will continue ensure enlive w/ meals and Shaan bid w/ medpass. Lab / Micro Data Result Diagrams: 05/20/21 10:00 05/20/21 10:00 Micro: Microbiology 05/21/21 08:30 Mucosa - Nose SARS-CoV-2 Antigen (Rapid) - Final Physical Exam Const alert, oriented x3 and no apparent distress General Appearance: cooperative and comfortable HEENT normocephalic and head/scalp atraumatic HEENT Narrative: alopecia Neck supple General: trachea midline Resp normal respiratory effort and clear to auscultation bilaterally Auscultation: diminished lung sounds GI normal to inspection, nondistended, normoactive bowel sounds Extremity no clubbing, cyanosis or edema Skin Skin Narrative: wound vac to sacral/coccyx wound intact, did not remove dressings. overall pale skin Neuro Neuro Narrative: paraplegia. no new focal deficits. speech is clear. Psych mental status grossly normal Attitude: calm and engaged Activity / Motor Behavior: appropriate eye contact Memory / Cognition: memory grossly intact Assessment & Plan Assessment/Plan (1) Debility: (2) Nausea: (3) Diffuse large B cell lymphoma: QUALIFIERS: Lymphoma site: unspecified region Qualified Code(s): C83.30 - Diffuse large B-cell lymphoma, unspecified site (4) Paraplegia: (5) Epidural mass: (6) Neuropathic pain: (7) Pressure ulcer of sacral region, stage 4: (8) Coronary artery disease: QUALIFIERS: Associated angina: without angina Coronary Disease- Associated Artery/Lesion type: unspecified vessel or lesion type [place] vs. transplanted heart: [place] heart Qualified Code(s): I25.10 - Atherosclerotic heart disease of [place] coronary artery without angina pectoris (9) Hx of CABG: PLAN: 75-year-old female with diffuse large B-cell lymphoma, epidural mass, currently receiving radiation therapy under the care of Dr. Polo, seen today for palliative follow-up regarding her debility, nausea, and discomfort. 1. Debility and weakness: Not able to do much secondary to paraplegia, however participating as much as possible. She is weak from the radiation as well. Again, family making accommodations at home for her to be able to return there upon discharge. 2. Diffuse large B-cell lymphoma, thoracic epidural mass: She has begun radiation treatments. Continue follow-up 3. Nausea: Compazine seems to be effective. Got worse yesterday when she received news her daughter was admitted to PCU with lung issue that will require laser surgery in the near future. She is doing better now mentally. Monitor and make adjustments as indicated. 4. Neuropathic pain: She is taking Tylenol as needed, which seems to be effective. She does not feel much due to the paraplegia. We will continue to monitor this closely and make adjustments as indicated. Continue with the Tylenol for now Thank you for the opportunity to participate in this patient's care, please do not hesitate to contact [facility] Palliative with any further questions or concerns. Palliative direct line is [phone]. Greater than 50% of F2F visit dedicated to education and counseling of palliative care services, medications, comorbid conditions and potential assistance with management, and plan of care moving forward. Start time: 1121 End time: 1154
--- NOTE | 2021-05-25 12:34 | MDS.RN ---
pain interview for des 05/26/21
[2021-05-25] MEDS: 0.9% Saline Lock 10 ML Syringe IV ×2 (14:59→22:58)
--- NOTE | 2021-05-25 15:47 | NURSING ---
PICC dressing changed today per protocol, sterile technique used 0cm exposed good blood return noted and flushes easily, pt tolerated well.
--- NOTE | 2021-05-25 16:25 | CHAPLAIN ---
Type of Pastoral Visit ___ Initial Visit ___ Follow-up Visit ___ On-call Visit ___ General Patient Visit ___ Spiritual Assessment ___ Family Conference ___ Bereavement ___ Rapid Response ___ Code Blue ___ Other (describe below) Pastoral Care Referral From ___ Patient ___ Family ___ Nurse ___ Physician ___ Director Federal ___ Clarification Operator ___ Other (describe below) Sacrament/Intervention ___ Active listening ___ Anointing ___ Spiritism ___ Bereavement ___ Communion ___ Latasha exploration ___ ___ Life review ___ Prayer ___ Reconciliation ___ Sacrament of Sick ___ Supportive presence ___ Wedding ___ Other (describe below) Pastoral Comments patient states she is worn out and requests visit at another day; spouse and daughter are with patient;
--- NOTE | 2021-05-25 19:59 | NURSING ---
Pt requesting all side rails up x4, states she is aware of restraint policy and prefers all 4 up as she feels more comfortable with all of them up and she uses them at times to help herself sit up.
[2021-05-25] MEDS: MELATONIN 3 MG TABLET PO (23:06)
[2021-05-25] MEDS: Atorvastatin Calcium 40 MG Tablet PO (23:06)
[2021-05-25] MEDS: Acetaminophen 500 MG Tablet 1000 MG PO (23:22)
[2021-05-26] VITALS (10 sets, daily range): BP systolic 122–157; BP diastolic 60–73; PULSE 79–91; RESP 16–18; TEMP 35.9–36.6; O2SAT 96–98
[2021-05-26] MEDS: Gabapentin 300 MG Capsule PO ×3 (06:22→23:25)
[2021-05-26] MEDS: NYSTATIN 500,000 UNIT/5 ML UDC 500000 UNIT PO ×4 (06:22→23:25)
[2021-05-26] MEDS: APIXABAN 5 MG TABLET PO ×2 (06:23→17:22)
[2021-05-26] MEDS: Linezolid 600 MG Tablet PO ×2 (06:23→17:23)
[2021-05-26] MEDS: Metoprolol Tartrate 50 MG Tablet PO ×4 (06:23→23:25)
[2021-05-26] MEDS: Lisinopril 5 MG Tablet PO (06:23)
[2021-05-26] MEDS: 0.9% Saline Lock 10 ML Syringe IV ×3 (07:55→23:24)
[2021-05-26] MEDS: Amiodarone 200 MG Tablet 400 MG PO (07:56)
[2021-05-26] MEDS: Multivitamins,Therapeutic Tablet 1 TABLET PO (07:56)
[2021-05-26] MEDS: Juven (unflavored) Packet 1 PACKET PO ×2 (07:56→17:20)
[2021-05-26] MEDS: Alteplase 2 MG/2 ML Vial IV ×2 (12:17→15:45)
--- NOTE | 2021-05-26 12:23 | NURSING ---
Unable to flush 1 ml of cathflo through PICC line. Will assess in 30 min.
--- NOTE | 2021-05-26 12:48 | NURSING ---
PT IN PRECAUTIONS,ALL CARE GIVEN IN ROOM. PT FAMILY WEARS MASKS BUT REFUSE TO GOWN UP AND WEAR GLOVES.RN AND DATABASE OPERATOR AWARE.
--- NOTE | 2021-05-26 13:30 | NURSING ---
Unable to flush PICC line after Cathflo inserted. Dr Menendez aware and new orders to try again with Cathflo. Forming Tube Selector, Amauri notified and he will be up to unit to assist this RN.
--- NOTE | 2021-05-26 16:38 | NURSING ---
URBANORN/WOUND NURSE CHANGED PT WOUND VAC
--- NOTE | 2021-05-26 16:40 | NURSING ---
FAMILY UPDATED IN ROOM
[2021-05-26] MEDS: Atorvastatin Calcium 40 MG Tablet PO (23:24)
[2021-05-26] MEDS: MELATONIN 3 MG TABLET PO (23:24)
[2021-05-26] MEDS: Acetaminophen 500 MG Tablet 1000 MG PO (23:29)
[2021-05-27 06:45] VITALS: BP 139/62; PULSE 86; RESP 16; TEMP 35.9; O2SAT 97
[2021-05-27] MEDS: Linezolid 600 MG Tablet PO ×2 (06:52→18:08)
[2021-05-27] MEDS: Lisinopril 5 MG Tablet PO (06:52)
[2021-05-27] MEDS: NYSTATIN 500,000 UNIT/5 ML UDC 500000 UNIT PO ×4 (06:52→22:24)
[2021-05-27 06:53] VITALS: BP 139/62; PULSE 86
[2021-05-27] MEDS: Gabapentin 300 MG Capsule PO ×3 (06:53→22:23)
[2021-05-27] MEDS: Metoprolol Tartrate 50 MG Tablet PO ×3 (06:53→18:08)
[2021-05-27] MEDS: APIXABAN 5 MG TABLET PO ×2 (06:56→18:08)
[2021-05-27 07:17] LABS: Absolute Lymphocyte Count 0.67 X10^3/uL (0.83-4.51); Absolute Neutrophil Count 2.9 X10^3/uL (2.0-7.7); Basophil# 0.02 X10^3/uL; Basophil% 0.5 % (0-1); Eosinophil# 0.19 X10^3/uL; Eosinophils% 4.4 % (0-5); Hematocrit 29.8 % (37-47); Lymphocyte # 0.67 X10^3/ul (0.83-4.51); Lymphocyte % 15.5 % (19-41); Mean Corp Hgb Conc 30.2 g/dL (32-36); Mean Corpuscular Hgb 24.4 pg (27.0-32.0); Mean Corpuscular Volume 80.8 fL (81-99); Mean Platelet Vol. 8.8 fl (6.2-12.0); Monocyte# 0.56 X10^3/uL; Monocyte% 12.9 % (0-10); NRBC Flagged by Analyzer 0.5 % (0-5); Neutrophil # 2.87 X10^3/uL (2.7-7.7); Neutrophil % 66.2 % (47-70); Platelet Count 278 K/mm3 (150-450); RBC Distribution Width CV 17.7 % (11.6-14.6); RBC Distribution Width SD 50.4 fl (35.1-43.9); Red Blood Count 3.69 M/mm3 (4.2-5.4); White Blood Count 4.3 K/mm3 (4.4-11.0)
[2021-05-27 07:38] LABS: Anion Gap 4 (5-15); BUN 12 mg/dL (7-18); BUN/Creat Ratio 49.4 RATIO (10-20); Calcium,Total 8.5 mg/dL (8.5-10.1); Chloride 108 mmol/L (98-107); Creatinine, Serum 0.24 mg/dL (0.55-1.02); EST Glomerular Filtration Rate 293 mL/min (>60); Est Glom Filt Rate - Afr Amer 354 mL/min (>60); Estimated Creatinine Clearance 41.33 ml/min; Glucose 88 mg/dL (74-106); Potassium 3.8 mmol/L (3.5-5.1); Sodium Level 142 mmol/L (136-145)
--- NOTE | 2021-05-27 07:46 | NURSING ---
wildlife technician informs this nurse pt would like to have blood drawn off PICC line. Using aseptic technique, red port flushed w/ 10 ml NS using push-pause method, withdrew 10 ml of blood for discard, additional 10 ml of blood withdrawn for lab specimen. Old end cap removed. End of red port cleaned w/ etoh, then flushed w/ 20 ml of NS post-draw. Pt tolerated well. Specimens sent via tube system. Phone call placed to lab and spoke w/ Wayne, informing him specimen was sent to lab.
[2021-05-27] MEDS: Juven (unflavored) Packet 1 PACKET PO ×2 (08:01→18:08)
[2021-05-27] MEDS: Multivitamins,Therapeutic Tablet 1 TABLET PO (08:01)
[2021-05-27] MEDS: 0.9% Saline Lock 10 ML Syringe IV ×2 (08:01→22:24)
[2021-05-27] MEDS: Amiodarone 200 MG Tablet 400 MG PO (08:01)
[2021-05-27 11:56] VITALS: BP 131/64; PULSE 88
[2021-05-27] MEDS: Tuberculin,Purif.prot.deriv. 50 TU/ML Vial 0.1 ML ID (12:19)
[2021-05-27 14:48] VITALS: BP 126/57; PULSE 78; RESP 16; TEMP 36.2; O2SAT 94
[2021-05-27] MEDS: Menthol/Lanolin/Calamine/Znox 113 GM Tube 1 APPLIC TOPICAL (18:07)
[2021-05-27 18:08] VITALS: PULSE 78
[2021-05-27] MEDS: Nystatin Powder 15gm Bottle 1 APPLIC TOPICAL (18:08)
[2021-05-27] MEDS: MELATONIN 3 MG TABLET PO (22:23)
[2021-05-27] MEDS: Atorvastatin Calcium 40 MG Tablet PO (22:23)
[2021-05-27] MEDS: Acetaminophen 500 MG Tablet 1000 MG PO (22:33)
[2021-05-28] VITALS (7 sets, daily range): BP systolic 122–145; BP diastolic 60–73; PULSE 81–93; RESP 16–18; TEMP 36.1–36.6; O2SAT 94–96
[2021-05-28] MEDS: 0.9% Saline Lock 10 ML Syringe IV ×4 (00:06→21:28)
[2021-05-28] MEDS: Metoprolol Tartrate 50 MG Tablet PO ×5 (00:08→23:56)
[2021-05-28] MEDS: NYSTATIN 500,000 UNIT/5 ML UDC 500000 UNIT PO ×3 (05:46→21:26)
[2021-05-28] MEDS: APIXABAN 5 MG TABLET PO ×2 (05:46→17:54)
[2021-05-28] MEDS: Linezolid 600 MG Tablet PO ×2 (05:46→17:55)
[2021-05-28] MEDS: Gabapentin 300 MG Capsule PO ×3 (05:46→21:27)
[2021-05-28] MEDS: Lisinopril 5 MG Tablet PO (05:46)
[2021-05-28] MEDS: Menthol/Lanolin/Calamine/Znox 113 GM Tube 1 APPLIC TOPICAL ×2 (05:47→17:55)
[2021-05-28] MEDS: Nystatin Powder 15gm Bottle 1 APPLIC TOPICAL ×2 (05:47→17:55)
[2021-05-28] MEDS: Juven (unflavored) Packet 1 PACKET PO ×2 (08:47→17:54)
[2021-05-28] MEDS: Multivitamins,Therapeutic Tablet 1 TABLET PO (08:47)
[2021-05-28] MEDS: Amiodarone 200 MG Tablet 400 MG PO (08:47)
[2021-05-28] MEDS: proCHLORPERazine 5 MG Tablet 10 MG PO (12:39)
[2021-05-28] MEDS: Atorvastatin Calcium 40 MG Tablet PO (21:26)
[2021-05-28] MEDS: MELATONIN 3 MG TABLET PO (21:26)
[2021-05-28] MEDS: Acetaminophen 500 MG Tablet 1000 MG PO (21:27)
[2021-05-29] VITALS (8 sets, daily range): BP systolic 127–153; BP diastolic 51–85; PULSE 81–97; RESP 16; TEMP 36.1–37.1; O2SAT 97
[2021-05-29] MEDS: Gabapentin 300 MG Capsule PO ×3 (06:13→21:33)
[2021-05-29] MEDS: 0.9% Saline Lock 10 ML Syringe IV ×2 (06:13→14:44)
[2021-05-29] MEDS: APIXABAN 5 MG TABLET PO ×2 (06:13→18:04)
[2021-05-29] MEDS: Linezolid 600 MG Tablet PO ×2 (06:13→18:05)
[2021-05-29] MEDS: NYSTATIN 500,000 UNIT/5 ML UDC 500000 UNIT PO ×4 (06:13→21:31)
[2021-05-29] MEDS: Lisinopril 5 MG Tablet PO (06:13)
[2021-05-29] MEDS: Menthol/Lanolin/Calamine/Znox 113 GM Tube 1 APPLIC TOPICAL ×2 (06:14→18:12)
[2021-05-29] MEDS: Nystatin Powder 15gm Bottle 1 APPLIC TOPICAL ×2 (06:15→21:31)
[2021-05-29] MEDS: Metoprolol Tartrate 50 MG Tablet PO ×3 (06:19→18:05)
[2021-05-29] MEDS: Amiodarone 200 MG Tablet 400 MG PO (07:53)
[2021-05-29] MEDS: Juven (unflavored) Packet 1 PACKET PO ×2 (07:54→18:03)
[2021-05-29] MEDS: Multivitamins,Therapeutic Tablet 1 TABLET PO (07:54)
--- NOTE | 2021-05-29 08:00 | NURSING ---
pt in precautions,all care given in room.
--- NOTE | 2021-05-29 14:13 | NURSING ---
PER PADMINI CLEMENT/WOUND NURSE. WILL BE OVER WITH IN THE NEXT WEEK TO TALK WITH PT ABOUT GETTING A COLOSTOMY. RN AWARE
--- NOTE | 2021-05-29 14:17 | PCM.PN.SRG ---
Subjective Subjective Patient was seen and evaluated during afternoon rounds. Wound and ostomy care was at bedside and provided information regarding the patient's sacral decubitus ulcer. They port satisfaction with keeping the weight stream excluded from the patient's wound with use of the wound VAC. They also report that there has been some incremental decrease in the overall wound circumference. For her part, Mrs. Enriquez states that she continues to have issues with an upset stomach and loose stools. However, she confirms that she is doing what she can to boost her protein intake through supplements. She continues to receive infusion of IV antibiotics and daily radiation treatments. According to her and her , these radiation treatments are due to be completed in the next couple weeks. Objective Data Objective Data Vital Signs: Vital Signs Temp Pulse Resp BP Pulse Ox 98.7 F 97 16 150/85 H 97 05/29/21 06:30 05/29/21 11:56 05/29/21 06:30 05/29/21 11:56 05/29/21 06:30 Oxygen Delivery Method Room Air Weight: 186 lb 6.4 oz Body Mass Index (BMI) 31.6 Intake & Output: Intake and Output for Last 24 Hours 05/27/21 05/28/21 05/29/21 23:59 23:59 23:59 Intake Total 1898 / 1898 1135 / 1135 712 / 712 Output Total 2425 / 2425 2150 / 2150 3500 / 3500 Balance -527 / -527 -1015 / -1015 -2788 / -2788 Medical Nutrition Assessment Dietitian: Nutrition Therapy Diagnosis Start: 05/20/21 13:16 Freq: Status: Active Protocol: Document 05/24/21 13:33 [facility] (Rec: 05/24/21 13:[address] [facility] [id number]) Nutrition Malnutrition Evidence of Malnutrition Exists No Intake Problem Increased Nutrient Needs (specify) Etiology protein r/t skin status Signs/Symptoms as evidenced by need for po supplements to help w/ wound healing of stage IV sacral PI Status Active Problem Clinical Problem Altered Nutrient-Related Laboratory Values Etiology related to anemia Signs/Symptoms as evidenced by recent transfusion and Hgb 9.7, Hct 31.8 Status Active Problem Recommendation Dietitian Recommendations/Changes Will provide one salt packet w / meals Will continue diet as ordered w/ smaller portions per res request Will continue ensure enlive w/ meals and Shaan bid w/ medpass. Lab / Micro Data Result Diagrams: 05/27/21 06:53 05/27/21 06:53 Micro: Microbiology 05/21/21 08:30 Mucosa - Nose SARS-CoV-2 Antigen (Rapid) - Final Physical Exam Const oriented x3 and no apparent distress Resp normal respiratory effort Skin Wound Narrative: The patient's sacral decubitus wound now contains a black sponge with excellent seal with the wound VAC. A small aliquot of stoma paste is been used to help provide seal near the patient's anus. There is no surrounding redness or additional skin breakdown. This wound resides approximately 2 cm cephalad to the anus. Assessment & Plan Assessment/Plan (1) Decubitus ulcer, infected: QUALIFIERS: Pressure injury stage: stage 4 Qualified Code(s): L89.94 - Pressure ulcer of unspecified site, stage 4; L08.9 - Local infection of the skin and subcutaneous tissue, unspecified PLAN: Patient making some improvements clinically in her TCU stay following her recent hospitalization for management of infected decubitus ulcer. Per both patient and staff report, patient's nutrition has improved and Mrs. Enriquez is daily making attempts at improving further with supplementation. She she continues to receive IV antibiotic therapy and daily radiation treatments. She believes the radiation treatments are due to persist at least 3 next week. Given the patient's clinical improvement, I think it is now reasonable to pursue a diverting colostomy. Therefore, I will tentatively plan for 06/06/2021 to proceed with a laparoscopic diverting colostomy. Both the operation and the postoperative recovery have been described to both the patient and her at bedside. They express a willingness to proceed as described. Patient will require holding of her anticoagulation therapy 5 days prior to the procedure. I would also ask that she be held to a liquid diet for 24 hours prior to the procedure and then n.p.o. appropriate as per anesthesia. I will plan for a short readmission to the hospital following the patient's procedure and then return to TCU for the balance of her radiation treatments. This plan has been discussed with Dr. Menendez. Charges/Coding Visit Charges Office Visits / Consults: 12978 OV L4 Est
--- NOTE | 2021-05-29 14:33 | NURSING ---
wound photo: sacrum
--- NOTE | 2021-05-29 15:14 | NURSING ---
IN TO SEE PT. HOPING TO DO SURGERY SATURDAY OR SATURDAY OF NEXT WEEK. HOLD DATE ON ELIQUIS STARTING 06/01 AND START LOVENOX ON 06/01. RN AWARE
--- NOTE | 2021-05-29 15:14 | NURSING ---
Dr Machado here to see resident. Tentatively planning for a colostomy placement on 06/06/21. Future hold order placed on [facility] by Dr Machado.
--- NOTE | 2021-05-29 15:40 | NURSING ---
FAMILY UPDATED IN ROOM.
[2021-05-29] MEDS: proCHLORPERazine 5 MG Tablet 10 MG PO (16:31)
[2021-05-29] MEDS: MELATONIN 3 MG TABLET PO (21:34)
[2021-05-29] MEDS: Atorvastatin Calcium 40 MG Tablet PO (21:34)
[2021-05-29] MEDS: Acetaminophen 500 MG Tablet 1000 MG PO (21:37)
[2021-05-30] VITALS (8 sets, daily range): BP systolic 111–136; BP diastolic 58–64; PULSE 84–90; RESP 18; TEMP 36.9; O2SAT 93–97
[2021-05-30] MEDS: Metoprolol Tartrate 50 MG Tablet PO ×4 (00:44→17:01)
[2021-05-30] MEDS: Gabapentin 300 MG Capsule PO ×3 (06:03→20:13)
[2021-05-30] MEDS: NYSTATIN 500,000 UNIT/5 ML UDC 500000 UNIT PO ×3 (06:03→20:12)
[2021-05-30] MEDS: Lisinopril 5 MG Tablet PO (06:03)
[2021-05-30] MEDS: APIXABAN 5 MG TABLET PO ×2 (06:03→17:00)
[2021-05-30] MEDS: Linezolid 600 MG Tablet PO ×2 (06:03→17:01)
[2021-05-30] MEDS: Nystatin Powder 15gm Bottle 1 APPLIC TOPICAL ×2 (06:04→17:08)
[2021-05-30] MEDS: Menthol/Lanolin/Calamine/Znox 113 GM Tube 1 APPLIC TOPICAL ×2 (06:04→17:09)
--- NOTE | 2021-05-30 07:37 | MDS.RN ---
Information for the mds was obtained from review of the clinical record, interview of resident, staff, and direct observation of resident's care.
[2021-05-30] MEDS: Juven (unflavored) Packet 1 PACKET PO ×2 (07:45→16:59)
[2021-05-30] MEDS: Amiodarone 200 MG Tablet 400 MG PO (07:45)
[2021-05-30] MEDS: Multivitamins,Therapeutic Tablet 1 TABLET PO (07:46)
--- NOTE | 2021-05-30 09:30 | NURSING ---
pt taken to radiation at 9am by bed and back to floor at 9:30am.
--- NOTE | 2021-05-30 09:55 | NURSING ---
pt in precautions for e coli in wound,all care given in room.
[2021-05-30] MEDS: proCHLORPERazine 5 MG Tablet 10 MG PO (13:58)
[2021-05-30] MEDS: 0.9% Saline Lock 10 ML Syringe IV (14:06)
--- NOTE | 2021-05-30 14:24 | NURSING ---
PT NAUSEATED AROUND LUNCH TIME AFTER RADIATION AND HAD 200 ML EMESES. PT STATED I WAS NAUSEATED YESTERDAY AROUND SAME TIME. PRN MED GIVEN FOR NAUSEA. PLEASE ASK PT EACH DAY AFTER RADIATION IF SHE NEEDS SOME THING FOR NAUSEA. RN AWARE
--- NOTE | 2021-05-30 16:20 | NURSING ---
FAMILY IN ROOM FOR UPDATE
--- NOTE | 2021-05-30 16:43 | CHAPLAIN ---
Type of Pastoral Visit _x__ Initial Visit ___ Follow-up Visit ___ On-call Visit ___ General Patient Visit ___ Spiritual Assessment ___ Family Conference ___ Bereavement ___ Rapid Response ___ Code Blue ___ Other (describe below) Pastoral Care Referral From ___ Patient ___ Family ___ Nurse ___ Physician ___ Milk Pickup Driver ___ Client Associate _x__ Other (describe below) Sacrament/Intervention _x__ Active listening ___ Anointing ___ Episcopal ___ Bereavement ___ Communion ___ Latasha exploration ___ ___ Life review _x__ Prayer ___ Reconciliation ___ Sacrament of Sick _x__ Supportive presence ___ Wedding ___ Other (describe below) Pastoral Comments Darion Abreu requested visit after consulting with patient and family
[2021-05-30] MEDS: MELATONIN 3 MG TABLET PO (20:13)
[2021-05-30] MEDS: Atorvastatin Calcium 40 MG Tablet PO (20:13)
[2021-05-30] MEDS: Acetaminophen 500 MG Tablet 1000 MG PO (20:15)
[2021-05-31] VITALS (9 sets, daily range): BP systolic 116–144; BP diastolic 54–75; PULSE 83–105; RESP 16–18; TEMP 36.7–37.8; O2SAT 93–95
[2021-05-31] MEDS: Metoprolol Tartrate 50 MG Tablet PO ×4 (00:11→18:22)
[2021-05-31] MEDS: APIXABAN 5 MG TABLET PO ×2 (06:22→18:22)
[2021-05-31] MEDS: NYSTATIN 500,000 UNIT/5 ML UDC 500000 UNIT PO ×4 (06:22→21:46)
[2021-05-31] MEDS: Menthol/Lanolin/Calamine/Znox 113 GM Tube 1 APPLIC TOPICAL ×2 (06:23→18:27)
[2021-05-31] MEDS: Linezolid 600 MG Tablet PO ×2 (06:23→18:23)
[2021-05-31] MEDS: Gabapentin 300 MG Capsule PO ×3 (06:23→21:46)
[2021-05-31] MEDS: Nystatin Powder 15gm Bottle 1 APPLIC TOPICAL ×2 (06:23→18:27)
[2021-05-31] MEDS: Lisinopril 5 MG Tablet PO (06:23)
[2021-05-31] MEDS: Multivitamins,Therapeutic Tablet 1 TABLET PO (08:59)
[2021-05-31] MEDS: Juven (unflavored) Packet 1 PACKET PO ×2 (08:59→18:21)
[2021-05-31] MEDS: Amiodarone 200 MG Tablet 400 MG PO (08:59)
[2021-05-31] MEDS: proCHLORPERazine 5 MG Tablet 10 MG PO (09:38)
--- NOTE | 2021-05-31 09:58 | NURSING ---
Addendum entered by Erinn Owens 05/31/21 16:02: Dr. Machado in to see pt today, this nurse clarified orders, pt is to be full liquid diet starting midnight 06/05/21 and NPO starting at midnight on 06/06/21, pt is allowed to take all 6am medication on 06/06/21 before surgery except for her lovenox. Original Note: Dr. Machado communicated in his report that pt should be started on full liquid diet 24 hours prior to surgery on 06/06/21 and N.P.O per anesthesia protocol.
--- NOTE | 2021-05-31 11:30 | PN.SURG_ITS ---
Subjective Subjective Patient was seen and examined during AM rounds. She reports that she has not been feeling well the last 2 days due to GI upset. She is uncertain whether her radiation treatments are contributing to this feeling. She describes a lack of appetite and feels full quickly. She has also experienced several bouts of v omiting over the last couple of days. Further, nursing confirms that stools have been looser and her decubitus VAC dressing has required multiple reinforcement attempts. Objective Data Objective Data Vital Signs: Vital Signs Temp Pulse Resp BP Pulse Ox 98.4 F 85 18 144/74 H 94 05/30/21 14:12 05/31/21 06:23 05/31/21 05:00 05/31/21 06:23 05/31/21 05:00 Oxygen Delivery Method Room Air Weight: 186 lb 6.4 oz Body Mass Index (BMI) 31.6 Intake & Output: Intake and Output for Last 24 Hours 05/29/21 05/30/21 05/31/21 23:59 23:59 23:59 Intake Total 1056 / 1056 1056 / 1056 592 / 592 Output Total 3800 / 3800 2350 / 2350 1750 / 1750 Balance -2744 / -2744 -1294 / -1294 -1158 / -1158 Medical Nutrition Assessment Dietitian: Nutrition Therapy Diagnosis Start: 05/20/21 13:16 Freq: Status: Active Protocol: Document 05/24/21 13:33 [facility] (Rec: 05/24/21 13:33 [facility] [id number]) Nutrition Malnutrition Evidence of Malnutrition Exists No Intake Problem Increased Nutrient Needs (specify) Etiology protein r/t skin status Signs/Symptoms as evidenced by need for po supplements to help w/ wound healing of stage IV sacral PI Status Active Problem Clinical Problem Altered Nutrient-Related Laboratory Values Etiology related to anemia Signs/Symptoms as evidenced by recent transfusion and Hgb 9.7, Hct 31.8 Status Active Problem Recommendation Dietitian Recommendations/Changes Will provide one salt packet w / meals Will continue diet as ordered w/ smaller portions per res request Will continue ensure enlive w/ meals and Shaan bid w/ medpass. Lab / Micro Data Result Diagrams: 05/27/21 06:53 05/27/21 06:53 Micro: Microbiology 05/21/21 08:30 Mucosa - Nose SARS-CoV-2 Antigen (Rapid) - Final Physical Exam Const Constitutional Narrative: Appears somewhat puny and down about not feeling well for so long Resp normal respiratory effort GI soft to palpation and non-tender Inspection: Negative for abdominal distention Assessment & Plan Assessment/Plan (1) Pressure ulcer of sacral region, stage 4: PLAN: Unsure whether patient's GI symptoms were most related to her concurrent antibiotic therapy, radiation treatments, or some combination thereof. I have asked her to prioritize protein supplementation and do what she can to increase her caloric intake. I have reiterated my request to hold apixaban starting tomorrow (replacing this with subcu Lovenox) and to initiate a liquid diet starting 06/05/2021. Patient denies any further questions related to our planned operation. Charges/Coding Visit Charges Inpatient E&M: 64700 Subs Hosp L2
--- NOTE | 2021-05-31 12:45 | PCM.PN.SRG ---
Subjective Subjective Postop #16 Patient is in bed. Her , daughter and granddaughter are at her bedside. She is complaining of nausea and vomiting and having difficulty tolerating fluids and food. She states she is not feeling well at all. She states she had several episodes of vomiting yesterday. She has no appetite. She states she is receiving Compazine for her nausea but it only lasts for a small amount of time and then the nausea returns. Wound VAC dressing intact, it was changed earlier today. Objective Data Objective Data Vital Signs: Vital Signs Temp Pulse Resp BP Pulse Ox 98.4 F 94 18 138/75 H 94 05/30/21 14:12 05/31/21 11:34 05/31/21 05:00 05/31/21 11:33 05/31/21 05:00 Oxygen Delivery Method Room Air Weight: 186 lb 6.4 oz Body Mass Index (BMI) 31.6 Intake & Output: Intake and Output for Last 24 Hours 05/29/21 05/30/21 05/31/21 23:59 23:59 23:59 Intake Total 1056 / 1056 1056 / 1056 592 / 592 Output Total 3800 / 3800 2350 / 2350 1750 / 1750 Balance -2744 / -2744 -1294 / -1294 -1158 / -1158 Medical Nutrition Assessment Dietitian: Nutrition Therapy Diagnosis Start: 05/20/21 13:16 Freq: Status: Active Protocol: Document 05/24/21 13:33 [facility] (Rec: 05/24/21 13:33 [facility] [id number]) Nutrition Malnutrition Evidence of Malnutrition Exists No Intake Problem Increased Nutrient Needs (specify) Etiology protein r/t skin status Signs/Symptoms as evidenced by need for po supplements to help w/ wound healing of stage IV sacral PI Status Active Problem Clinical Problem Altered Nutrient-Related Laboratory Values Etiology related to anemia Signs/Symptoms as evidenced by recent transfusion and Hgb 9.7, Hct 31.8 Status Active Problem Recommendation Dietitian Recommendations/Changes Will provide one salt packet w / meals Will continue diet as ordered w/ smaller portions per res request Will continue ensure enlive w/ meals and Shaan bid w/ medpass. Lab / Micro Data Result Diagrams: 05/27/21 06:53 05/27/21 06:53 Micro: Microbiology 05/21/21 08:30 Mucosa - Nose SARS-CoV-2 Antigen (Rapid) - Final Physical Exam Const oriented x3 Resp normal respiratory effort Cardio regular rate GI soft to palpation Skin Wound Narrative: Sacral ulcer with wound VAC dressing in place at 150 mmHg. Neuro oriented x3 Psych mental status grossly normal Assessment & Plan Assessment/Plan (1) Pressure ulcer of sacral region, stage 4: (2) Osteomyelitis of pelvis: (3) Acute postoperative anemia due to expected blood loss: (4) Diffuse large B-cell lymphoma: QUALIFIERS: Lymphoma site: extranodal excluding spleen and other solid organs Qualified Code(s): C83.39 - Diffuse large B-cell lymphoma, extranodal and solid organ sites (5) Debility: (6) Nausea: PLAN: Wound is stable with no active bleeding. Wound VAC changed and at 150 mmHg ealier today. Patient has been having some loose stools which is making it more difficult for the VAC to maintain a seal. She is scheduled next week for a colostomy by Dr. Machado. Today her biggest concern is her nausea and episodes of vomiting (last time she vomited was yesterday). She states the Compazine is not working for very long. I spoke with her nurse, Erinn about this and I will order Luba to see if she can obtain better nausea control. I instructed the patient to try to take small frequent sips of fluids, not to drink a large amount of fluid at one time. It is better to keep a small amount of fluid down than to drink an increased amount of fluid and have it cause nausea. She is on a probiotic. Operative tissue culture positive for Escherichia coli, Klebsiella, Vanc. Resist. E. gallinarum, Vanc. Resist. E. faecalis. Operative bone culture positive for Escherichia coli, Vanc. Resist. E. faecalis, Vanc. Resist. E. gallinarum. She is on Meropenem and Linezolid started. ID is managing. Hgb 9 from 05/27/21. K+ 3.8 from 05/27/21. Patient is tolerating her daily radiation treatments for her diffuse large B-cell lymphoma. Prealbumin 4.9 on 05/17. Encouraged increase protein intake to help with wound healing. She is ordered Shaan protein supplements twice daily. When she is discharged home, she will follow up at the wound healing center for management of her wound. Charges/Coding Procedures Integumentary [id number]: [id number] [facility] Visit
--- NOTE | 2021-05-31 12:54 | NURSING ---
Luz VASQUEZ from Dr. Maciel's office in to see pt today, pt reported nausea and it is too early for next dose of Compazine, N.O. for zofran 4mg PO Q8H prn.
[2021-05-31] MEDS: Ondansetron ODT 4 MG Tablet PO (13:00)
--- NOTE | 2021-05-31 18:41 | NUR.TO.PHY ---
Pt c/o tightness around abdomen VS WNL, pt reports she has been burping and having GI symptoms suspected from ATB and radiation, Message left for Dr. Menendez requesting prn simethicone.
--- NOTE | 2021-05-31 21:33 | NURSING ---
Went in to do patient assessment. Patient complaining of Nausea and upper abdomen pain;
--- NOTE | 2021-05-31 21:35 | NURSING ---
Addendum entered by Surekha Borges 06/01/21 01:01: Dr. Menendez updated with results. New order to Consult general surgery. Original Note: Went in to do patient assessment. Patient complaining of nausea and upper abdomen pain/discomfort. Abdomen soft and tender with palpation. Vitals obtained. Oral temp of 100.0 F obtained. Patient stated nausea and vomiting started yesterday. RN came in to assess patient. Dr. Menendez called and new orders. KUB, Chest X-ray, UA C&S, blood cultures, COVID swab and respiratory panel.
[2021-05-31] MEDS: Atorvastatin Calcium 40 MG Tablet PO (21:46)
[2021-05-31] MEDS: Acetaminophen 500 MG Tablet 1000 MG PO (21:46)
[2021-05-31] MEDS: MELATONIN 3 MG TABLET PO (21:46)
[2021-05-31] MEDS: 0.9% Saline Lock 10 ML Syringe IV (21:47)
--- NOTE | 2021-05-31 22:03 | RAD_ITS ---
STUDY: X-RAY CHEST REASON FOR EXAM: Female, 75 years old. chest tightness TECHNIQUE: Single frontal view of the chest. COMPARISON: 05/14/2021 FINDINGS: Right PICC line terminates in the superior vena cava. Sternotomy wires. The lungs are clear and expanded. There is no demonstrated pleural abnormality. Normal size heart. Normal mediastinum and leoncio. Normal visualized pulmonary arteries. Normal visualized aortic arch and descending thoracic aorta. Normal visualized thoracic spine. Normal visualized ribs, clavicles, and shoulders. There is no demonstrated abnormality of the visualized soft tissue structures of the upper abdomen. RAD/Chest 1 View (Portable) IMPRESSION: ] Right PICC line. No acute disease. Electronically Signed: Marcellus Montes MD at 23:54 EDT , Service support ,
[2021-05-31 22:39] LABS: Absolute Lymphocyte Count 0.52 X10^3/uL (0.83-4.51); Absolute Neutrophil Count 4.4 X10^3/uL (2.0-7.7); Basophil# 0.03 X10^3/uL; Basophil% 0.5 % (0-1); Eosinophil# 0.13 X10^3/uL; Eosinophils% 2.1 % (0-5); Hematocrit 29.1 % (37-47); Hemoglobin 8.9 g/dL (12.0-15.0); Lymphocyte # 0.52 X10^3/ul (0.83-4.51); Lymphocyte % 8.2 % (19-41); Mean Corp Hgb Conc 30.6 g/dL (32-36); Mean Corpuscular Hgb 24.6 pg (27.0-32.0); Mean Corpuscular Volume 80.4 fL (81-99); Mean Platelet Vol. 9.1 fl (6.2-12.0); Monocyte% 17.4 % (0-10); NRBC Flagged by Analyzer 0.6 % (0-5); Neutrophil # 4.42 X10^3/uL (2.7-7.7); Neutrophil % 70.1 % (47-70); POSITIVE DIFFERENTIAL YES; Platelet Count 224 K/mm3 (150-450); RBC Distribution Width CV 17.6 % (11.6-14.6); RBC Distribution Width SD 50.2 fl (35.1-43.9); Red Blood Count 3.62 M/mm3 (4.2-5.4); White Blood Count 6.3 K/mm3 (4.4-11.0)
--- NOTE | 2021-05-31 22:40 | RAD_ITS ---
STUDY: X-RAY - ABDOMEN/PELVIS REASON FOR EXAM: Female, 75 years old. indigestion/diarrhea/nausea TECHNIQUE: Single AP view of the abdomen / pelvis. COMPARISON: 05/10/2021 FINDINGS: Increased interstitial markings at the lung bases. Gas-filled loops of colon. Multiple calcifications right upper quadrant of the abdomen. The visualized liver, spleen and kidneys are grossly normal in size and morphology. Normal soft tissue structures. Normal visualized osseous structures. IMPRESSION: Mild Colonic ileus. Electronically Signed: Marcellus Montes MD at 23:40 EDT , Service support , RAD/Abdomen Single View (Portable)
[2021-05-31 22:41] LABS: Differential Indicated SCAN CRITERIA MET
[2021-05-31 22:52] LABS: Anion Gap 8 (5-15); BUN 15 mg/dL (7-18); BUN/Creat Ratio 51.4 RATIO (10-20); Calcium,Total 8.3 mg/dL (8.5-10.1); Chloride 104 mmol/L (98-107); Creatinine, Serum 0.29 mg/dL (0.55-1.02); EST Glomerular Filtration Rate 237 mL/min (>60); Est Glom Filt Rate - Afr Amer 287 mL/min (>60); Estimated Creatinine Clearance 41.33 ml/min; Glucose 119 mg/dL (74-106); Potassium 3.8 mmol/L (3.5-5.1); Sodium Level 138 mmol/L (136-145)
[2021-05-31 23:05] LABS: Differential Comment SCANNED
[2021-05-31 23:20] LABS: Bacteria 0 SEEN /hpf (None Seen); Mucous, Urine 0 SEEN /hpf (<or=2+); Red Blood Cells-Urine 0 SEEN /hpf (0-5); Squamous Epithelial Cells - UA 0 SEEN /hpf (5-10)
[2021-05-31 23:25] LABS: Color, Urine Yellow (Yellow); Glucose, Dipstick Normal (Normal); Ketone-Dipstick Negative (Negative); Leukocyte Esterase-Dipstick 100 /ul (Negative); Nitrite-Dipstick Negative (Negative); Occult Blood-Urine Negative /ul (Negative); Protein-Dipstick 15 mg/dl (Negative); Specific Gravity, Urine 1.015 (1.002-1.030); Urine Bilirubin Dipstick Negative (Negative); Urine Clarity Clear (Clear); Urine Urobilinogen Normal (Normal)
[2021-05-31 23:37] LABS: White Blood Cells 0-5 SEEN /hpf (0-5); Yeast-Urine 2+ /hpf (None Seen)
[2021-06-01] VITALS (10 sets, daily range): BP systolic 116–158; BP diastolic 54–76; PULSE 61–94; RESP 16–18; TEMP 36.6–37.2; O2SAT 94–96
[2021-06-01] MEDS: Metoprolol Tartrate 50 MG Tablet PO ×5 (00:03→23:23)
[2021-06-01 00:05] LABS: Probe Check PASS; Specimen Processing Control PASS
[2021-06-01] MEDS: Linezolid 600 MG Tablet PO ×2 (06:31→18:11)
[2021-06-01] MEDS: Enoxaparin 40 MG/0.4 ML Syringe SC (06:31)
[2021-06-01] MEDS: NYSTATIN 500,000 UNIT/5 ML UDC 500000 UNIT PO ×2 (06:31→11:31)
[2021-06-01] MEDS: Lisinopril 5 MG Tablet PO (06:31)
[2021-06-01] MEDS: Gabapentin 300 MG Capsule PO ×3 (06:31→22:13)
[2021-06-01] MEDS: Nystatin Powder 15gm Bottle 1 APPLIC TOPICAL ×2 (06:41→18:21)
[2021-06-01] MEDS: Multivitamins,Therapeutic Tablet 1 TABLET PO (08:48)
[2021-06-01] MEDS: Juven (unflavored) Packet 1 PACKET PO (08:48)
[2021-06-01] MEDS: Amiodarone 200 MG Tablet 400 MG PO (08:48)
[2021-06-01] MEDS: Ondansetron ODT 4 MG Tablet PO (10:16)
--- NOTE | 2021-06-01 11:54 | NURSING ---
RADIOLOGY CALLED AND ASKED IF PT WAS HAVING SURGERY. THIS NURSE STATED YES,SOME TIME NEXT WEEK. RADIOLOGY CONCERNED DUE TO GETTING RADIATION AND WOULD LET THE DOCTOR KNOW AND HE CAN TALK TO ABOUT IT. RN AWARE
[2021-06-01] MEDS: 0.9% Saline Lock 10 ML Syringe IV ×3 (13:41→22:17)
--- NOTE | 2021-06-01 14:59 | EKG12_ITS ---
Test Reason : CP Blood Pressure : / mmHG Vent. Rate : 094 BPM Atrial Rate : 094 BPM P-R Int : 144 ms QRS Dur : 080 ms QT Int : 394 ms P-R-T Axes : 047 000 035 degrees QTc Int : 492 ms Normal sinus rhythm Prolonged QT Abnormal ECG Confirmed by GUERLINE JOHNS, NATASHA ([id number]), editor managing newspaper VANESSA PERES ([id number]) on 06/06/2021 9:00:00 AM Referred By: Jarod Menendez Confirmed By:NATASHA CUNHA MD
[2021-06-01] MEDS: Acetaminophen 500 MG Tablet 1000 MG PO ×2 (15:02→22:31)
--- NOTE | 2021-06-01 15:05 | NURSING ---
PT COMPLAINING AND MOANING DUE TO UPPER ABDOMINAL AND CHEST PAIN ON LEFT SIDE. PRN PAIN MED GIVEN, NOTIFIED. NEW ORDERS GIVEN. RN IS AWARE.
--- NOTE | 2021-06-01 15:33 | PCM.PN.BLA ---
Progress Note Asked by nursing to see a pt with N/V/abd pain and fullness and also L chest pain. 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 She is on Unasyn for the infection. She tells me that she has been nausea associated with retching and vomiting the past few days. She is currently undergoing radiation with Dr. Polo. She was seen in consultation by Dr. Machado yesterday for diverting colostomy so that we can get the decubitus ulcer healed. She has had loose stools and 2 stools were documented yesterday and 1 the day before. She has had 1 BM today. She feels as though her abd is full and pressing up on her diaphragm. She denies heart burn. She has been burping. I reviewed the KUB done yesterday and she has a lot of colonic gas but, there also appear to be dilated small bowel loops in the LLQ area of the XRAY. In addition to the aforementioned complaints she is c/o left chest pain. It hurts when she takes a deep breath. She denies hemoptysis and she tells me that she has never had a PE/DVT. She does have a hx of CAD and has had a CABG in the past. She has been on Apixaban for AF but, this was put on hold recently in preparation for diverting colostomy. She is now on Enoxaparin. She is afebrile now but had 1 temp of 100F last night. CXR showed no acute disease yesterday. All lab from 05/31/2021 was reviewed. The white blood cell count is 6.3. Hemoglobin is 8.9 and platelets are within normal limits. The showed 70% neutrophils with 1.7% immature granulocytes. BMP is unremarkable with the exception of an elevated BUN/creatinine ratio. UA showed 0-5 WBCs per high-power field with no bacteria but with 2+ yeast. Med list was reviewed. She has been taking Compazine once a day since the and has only had 2 doses of Zofran. Physical Exam Const Constitutional Narrative: She appears ill. she is pale and looks uncomfortable. She has a cool rag on her head. HEENT HEENT Narrative: Mucous membranes are dry. Resp Resp Narrative: poor inspiratory effort due to pain with inspiration in the left chest......she has had this for 2 days and it has been constant. She has a hx of CAD. Cardio regular rate, regular rhythm and no gallops Jugular Venous Distention: Negative for JVD GI GI Narrative: The abd is soft. There are no masses. There are very active BS's. She has no guarding with palpation. Rectal exam revealed no significant stool in the rectal vault. There was a small amount of soft/liquidy brown stool. Skin Skin Narrative: Dry, not diaphoretic. Very pale. Wound VAC was in place. Assessment & Plan Assessment/Plan (1) Abdominal pain: (2) Nausea: (3) Vomiting: (4) Chest pain: (5) History of radiation therapy: (6) Coronary artery disease: QUALIFIERS: Coronary Disease-Associated Artery/Lesion type: unspecified vessel or lesion type [place] vs. transplanted heart: [place] heart Associated angina: without angina Qualified Code(s): I25.10 - Atherosclerotic heart disease of [place] coronary artery without angina pectoris PLAN: 1. Flat and erect abdomen 2. EKG - it showed NSR with possible LAE and a short NJ and the NJ segment is depressed. No ST elevation. The QTc is prolonged at 492. there is K is normal yesterday but she has not had a mag. she is on 400 mg of amiodarone daily. 3. Will discuss with Dr. Machado. 4. she is on palliative care and will discuss nausea with them. The compazine was really not working for her. Will give 8 mg of IV Zofran now. 5. etiology of the CP is not clear to me. Will order a CPP but EKG is not consistent with STEMI and there is no significant ST depression. IT could be a PE or pleuritis from the radiation or pericarditis. She has no PNA on the CXR yesterday. She has been on full dose Apixaban so doubt PE.......I favor either musculoskeletal or pleuritis. Visit Charges Inpatient E&M: 71400 Subs Hosp L2
--- NOTE | 2021-06-01 15:38 | NURSING ---
PT WAS MADE NPO BY DR. LEE
--- NOTE | 2021-06-01 15:50 | NURSING ---
FAMILY IN ROOM UPDATED
--- NOTE | 2021-06-01 16:32 | RAD_ITS ---
STUDY: X-RAY - ABDOMEN/PELVIS REASON FOR EXAM: Female, 75 years old. abd pain/nausea and vomiting -- please do flat and erect abdomen. TECHNIQUE: Supine KUB and left side up decubitus. COMPARISON: 05/31/2021 FINDINGS: Normal visualized lung bases. Multiple air-fluid levels noted in the small and large bowel. Gas is noted in the rectosigmoid. There is no demonstrated free abdominal air. The visualized liver, spleen and kidneys are grossly normal in size and morphology. Normal soft tissue structures. Normal visualized osseous structures. RAD/Abd Inc Decub and/or Erect IMPRESSION: Ileus essentially unchanged Electronically Signed: Marcellus Montes MD at 16:49 EDT , Service support ,
[2021-06-01] MEDS: Ketorolac 15 MG/ML Vial IM (16:51)
[2021-06-01] MEDS: Ondansetron 4 MG/2 ML Vial 8 MG IV ×2 (16:53→20:50)
[2021-06-01] MEDS: Colchicine 0.6 MG TABLET PO (20:31)
[2021-06-01] MEDS: Menthol/Lanolin/Calamine/Znox 113 GM Tube 1 APPLIC TOPICAL (20:36)
[2021-06-01] MEDS: OLANZapine 5 MG/TAB TAB.RAPDIS 2.5 MG PO (22:13)
[2021-06-01] MEDS: MELATONIN 3 MG TABLET PO (22:13)
[2021-06-01] MEDS: Atorvastatin Calcium 40 MG Tablet PO (22:13)
[2021-06-02 04:30] VITALS: BP 154/74; PULSE 87; RESP 16; TEMP 37; O2SAT 94
[2021-06-02] MEDS: Acetaminophen 500 MG Tablet 1000 MG PO ×3 (04:33→21:08)
[2021-06-02] MEDS: 0.9% Saline Lock 10 ML Syringe IV ×3 (06:51→15:30)
[2021-06-02] MEDS: Ketorolac 15 MG/ML Vial IV (08:34)
[2021-06-02] MEDS: Ondansetron 4 MG/2 ML Vial 8 MG IV ×3 (08:34→21:46)
[2021-06-02 08:57] VITALS: PULSE 96
[2021-06-02] MEDS: Metoprolol Tartrate 50 MG Tablet PO ×3 (08:57→18:16)
[2021-06-02] MEDS: Gabapentin 300 MG Capsule PO ×3 (08:58→21:05)
[2021-06-02] MEDS: Lisinopril 5 MG Tablet PO (08:58)
[2021-06-02] MEDS: Colchicine 0.6 MG TABLET PO (08:58)
[2021-06-02] MEDS: Linezolid 600 MG Tablet PO ×2 (08:59→18:00)
[2021-06-02] MEDS: Amiodarone 200 MG Tablet 400 MG PO (08:59)
[2021-06-02] MEDS: Nystatin Powder 15gm Bottle 1 APPLIC TOPICAL ×2 (09:03→18:03)
[2021-06-02] MEDS: Menthol/Lanolin/Calamine/Znox 113 GM Tube 1 APPLIC TOPICAL ×2 (09:03→18:03)
[2021-06-02] MEDS: Enoxaparin 40 MG/0.4 ML Syringe SC (09:48)
[2021-06-02] MEDS: Polyethylene Glycol 3350 17 GM PACKET PO (09:49)
[2021-06-02] MEDS: Multivitamins,Therapeutic Tablet 1 TABLET PO (09:49)
[2021-06-02] MEDS: Senna Tablet 1 TABLET PO ×2 (09:49→18:03)
[2021-06-02] MEDS: Juven (unflavored) Packet 1 PACKET PO ×2 (09:49→17:55)
--- NOTE | 2021-06-02 10:11 | NURSING ---
wound vac changed today per order, periskin intact, stoma paste applied to distal end of perineum, seal remains intact at this time, pt tolerated well
--- NOTE | 2021-06-02 11:12 | NURSING ---
Pt received 6am lopressor at 9am today d/t nausea/vomiting, pt due to have lopressor again at noon, this nurse spoke with Leonel from pharmacy and he instructed this nurse give next dose of lopressor closer to around 1:30-2pm, then return to normal Q6h schedule
--- NOTE | 2021-06-02 11:49 | PN.SURG_ITS ---
Subjective Subjective Patient was seen and examined during AM rounds. Previously discussed with Dr. Osullivan and Dr. Polo patient's persistent GI symptoms of nausea, vomiting, and abdominal pain. Today, Mrs. Enriquez states she required 1 dose of IV antiemetic but thereafter has felt better. She reports yesterday was much more difficult. She has some difficulty perceiving bowel function given her neurologic deficits but believes that she has passed some gas this morning. Nursing reports that they are still giving scheduled MiraLAX and senna. They have not recorded any bowel movements today but there were 2 yesterday. Objective Data Objective Data Vital Signs: Vital Signs Temp Pulse Resp BP Pulse Ox 98.6 F 96 16 154/74 H 94 06/02/21 04:30 06/02/21 08:57 06/02/21 04:30 06/02/21 04:30 06/02/21 04:30 Oxygen Delivery Method Room Air Weight: 186 lb 6.4 oz Body Mass Index (BMI) 31.6 Intake & Output: Intake and Output for Last 24 Hours 05/31/21 06/01/21 06/02/21 23:59 23:59 23:59 Intake Total 1236.25 / 1236.25 636 / 636 112 / 112 Output Total 1750 / 1750 2200 / 2200 700 / 700 Balance -513.75 / -513.75 -1564 / -1564 -588 / -588 Medical Nutrition Assessment Dietitian: Nutrition Therapy Diagnosis Start: 05/20/21 13:16 Freq: Status: Active Protocol: Document 05/31/21 14:44 ENID (Rec: 05/31/21 14:44 ENID [id number]) Nutrition Malnutrition Evidence of Malnutrition Exists No Intake Problem Inadequate Oral Intake Etiology related to nausea and vomiting Signs/Symptoms as evidenced by res with emesis x 3 yesterday and with poor po intake today Status Active Problem Increased Nutrient Needs (specify) Etiology protein r/t skin status Signs/Symptoms as evidenced by need for po supplements to help w/ wound healing of stage IV sacral PI Status Active Problem Clinical Problem Altered Nutrient-Related Laboratory Values Etiology related to anemia Signs/Symptoms as evidenced by recent transfusion and Hgb 9.7, Hct 31.8 Status Inactive Problem Recommendation Dietitian Recommendations/Changes Will provide one salt packet w / meals Will continue diet as ordered w/ smaller portions per res request Will continue ensure enlive w/ meals and Shaan bid w/ medpass. Lab / Micro Data Result Diagrams: 05/31/21 22:25 05/31/21 22:25 Micro: Microbiology 05/31/21 22:59 Urine Catheter - Gutierrez Urine Culture - Preliminary Gram Positive Cocci 05/31/21 22:25 Mucosa - Nasopharyngeal Respiratory Panel (PCR) - Final 05/21/21 08:30 Mucosa - Nose SARS-CoV-2 Antigen (Rapid) - Final Radiography Diagnostic Testing: Radiology Impression Abdomen X-Ray 06/01/21 16:32 IMPRESSION: Ileus essentially unchanged Electronically Signed: Marcellus Montes MD at 16:49 EDT , Service support , Physical Exam Const oriented x3 General Appearance: ill appearing GI soft to palpation and non-tender Inspection: Negative for abdominal distention Assessment & Plan Assessment/Plan (1) Adynamic ileus: PLAN: Patient's described symptomology, exam, and x-ray findings are most consistent with adynamic ileus. After discussions with oncology, it is less li juliet that radiation is playing into these complaints. They believe that there radiation field is wholly separate from the peritoneal compartment. Given this, it would seem that the most likely etiology for Mrs. Enriquez complaints are with her ongoing IV antibiotic therapy. Therefore the following could be considered: ?Dulcolax suppositories in place of MiraLAX (hopefully providing rectal stimulat ion without inciting nausea) ?Stool studies for opportunistic pathogens ?Agree with bowel rest however, would advance the diet once patient is expecting regular bowel function/hunger as her nutrition to date has been suboptimal Once patient is having regular bowel function, I have asked her to prioritize consumption of protein supplements in anticipation of her operation?scheduled for the . (2) Abdominal pain: PLAN: Improving, but I believe is secondary to the above. Agree with radiology on readings of most recent KUBs. Charges/Coding Visit Charges Inpatient E&M: 60008 Subs Hosp L2
[2021-06-02] MEDS: Bisacodyl 10 MG Suppository RC ×2 (12:12→15:29)
[2021-06-02 13:37] VITALS: PULSE 91
[2021-06-02 14:00] VITALS: BP 146/64; PULSE 91; RESP 18; TEMP 36.8; O2SAT 98
--- NOTE | 2021-06-02 14:57 | PN_ITS ---
Progress Note afebrile VSS Maintaining appropriate oxygen saturation on RA Oral intake is NPO except ice chips for the past 24 hours......advancing to clears today Discussed with nursing - Pain is sometimes relieved with Tylenol but she waits until the pain is severe before asking for pain medication. No BM today but, no vomiting either. The Increase in the Zofran dosing has helped control the nausea better. The Toradol; has been very effective for the abd pain and the CP but, surgery would like to avoid NSAID's in preparation for the upcoming diverting colostomy. Reviewed the PT/OT notes Medication list reviewed. Denies cough, SOB, hemoptysis. The Left chest pain is increased with deep breaths. I discussed the possibility of radiation induced pleuritis but, he thinks this is a little early for that but, it could be. Her last radiation tx will be next Saturday and if it is pleuritis it should disappear 2-3 weeks after the last treatment. The tx is pain relief. She does not like the way narcotics make her feel but she felt so bad yesterday that she is will to try a different pain medication in place of the Toradol. We agreed on a trial of Tramadol. Physical Exam Const alert and oriented x3 Constitutional Narrative: She is lying in bed. She looks better than she did yesterday afternoon when I first saw her and she admits that she feels better than yesterday. HEENT HEENT Narrative: Mucous membranes are dry. There are no mucosal lesions. Resp clear to auscultation bilaterally Resp Narrative: Diminished breath sounds due to decreased respiratory effort. No wheezes, rhonchi or rails. Cardio regular rate and no gallops GI soft to palpation GI Narrative: Not tachypneic, no guarding with palpation. Good BS's present. Extremity no calf tenderness Psych Psych Narrative: making good eye contact today. She is pleasant and appropriate. she is smiling and looks more comfortable than yesterday. Assessment & Plan Assessment/Plan (1) Debility: PLAN: continue therapy. (2) Diffuse large B cell lymphoma: QUALIFIERS: Lymphoma site: unspecified region Qualified Code(s): C83.30 - Diffuse large B-cell lymphoma, unspecified site PLAN: She developed paraplegia of the LE's due to an epidural mass and bx was positive for B cell lymphoma. She underwent emergent excision of thoracic spinal dural mass with laminectomy of T5/T6 on 03/20/2021. she was started on chemotherapy but he functional status has declined and Chemo was discontinued. On 03/22/2021 MRI of the thoracic spine there was a nonspecific peripherally enhancing collection in the dorsal subcutaneous soft tissues of the upper thoracic spine from T2-T4 measuring approximately 1.8 x 1 cm with an additional lesion in the paraspinous musculature centered at T3-T4 measuring 2.5 x 1.5 cm. There was increased cord signal at T5 and T6 which likely represented resolving edema/evolving myelomalacia. Currently she is getting radiation therapy to the laminectomy bed. She is a pt of Dr. Mendez. (3) Epidural mass: (4) Pressure ulcer of sacral region, stage 4: PLAN: S/P excision of necrotic sacral pressure ulcer, stage IV, with partial ostectomy for osteomyelitis on 05/15/2021. The sacral defect measured 11 x 10 x 3 cm. Pathology from the ostectomy showed acute osteomyelitis. Tissue from the surgery grew E. coli, a Klebsiella species, VRE and vancomycin- resistant Enterococcus gallinarum. There was also Prevotella bivia present. She is currently on Zyvox and Unasyn. (5) Osteomyelitis of pelvis: (6) Ileus: PLAN: She is immobile, has had 2 recent surgeries and now getting radiation. This is not surprising. Will advance the diet today since she is no longer vomiting, the nausea is controlled and the abd is soft. She has had poor oral intake recently and will not have daily BM's. She will continue on Senna and will order a bisacodyl supp daily X 3 to stimulate the bowel. (7) Abdominal pain: PLAN: Schedule I gram of Tylenol p.o. every 8 hours and 25 to 50 mg of Ultram every 6 hours as needed pain not relieved with Tylenol. Toradol has been discontinued in preparation for upcoming diverting colostomy. (8) Nausea: PLAN: Doing better with Zofran 8 mg IV every 6 hours as needed and olanzapine 2.5 mg nightly. (9) Chest pain: PLAN: This seems pleuritic in nature and is relieved with Toradol. will need to DC Toradol but, will replace with Tramdol. (10) Paraplegia: PLAN: Continue therapy (11) UTI (urinary tract infection): PLAN: She had only 0-5 WBC's on UA but she is growing a GM + coccus in the urine. 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 (12) Dehydration: PLAN: LR at 75 cc/hr X 2 liters. Visit Charges Inpatient E&M: 74601 Subs Hosp L2
[2021-06-02] MEDS: Lactated Ringers 1,000 ML 75 ML IV (15:34)
--- NOTE | 2021-06-02 17:17 | PCM.PN.PAL ---
Subjective Subjective Patient seen and examined. Appears fatigued but alert and oriented. Her spouse and daughter Sarah are present. Patient reports nausea and vomiting have improved since increasing Zofran 8 mg every 8 hours as needed. She is asking for consistently every 8 hours. She is worried that she will fall asleep and not get a dose and become quite nauseated again. Attending has added scheduled Tylenol 1 g every 8 hours for pain, as well as tramadol 25 to 50 mg every 6 hours as needed. She has tolerated ice chips, so they are trying to advance her diet to clear liquids and see how she does. Denies any chest pain or shortness of breath. She is frustrated about her wound healing. Notes that she will have an ostomy placed in order to avoid stool contamination. We reviewed her medications and the patient and her family verbalized understanding. Questions were asked and answered. Objective Data Objective Data Vital Signs: Vital Signs Temp Pulse Resp BP Pulse Ox 98.3 F 91 18 146/64 H 98 06/02/21 14:00 06/02/21 14:00 06/02/21 14:00 06/02/21 14:00 06/02/21 14:00 Oxygen Delivery Method Room Air Weight: 84.55 kg Body Mass Index (BMI) 31.6 Intake & Output: Intake and Output for Last 24 Hours 05/31/21 06/01/21 06/02/21 23:59 23:59 23:59 Intake Total 1236.25 / 1236.25 636 / 636 321.5 / 321.5 Output Total 1750 / 1750 2200 / 2200 1500 / 1500 Balance -513.75 / -513.75 -1564 / -1564 -1178.5 / -1178.5 Medical Nutrition Assessment Dietitian: Nutrition Therapy Diagnosis Start: 05/20/21 13:16 Freq: Status: Active Protocol: Document 05/31/21 14:44 ENID (Rec: 05/31/21 14:44 ENID [id number]) Nutrition Malnutrition Evidence of Malnutrition Exists No Intake Problem Inadequate Oral Intake Etiology related to nausea and vomiting Signs/Symptoms as evidenced by res with emesis x 3 yesterday and with poor po intake today Status Active Problem Increased Nutrient Needs (specify) Etiology protein r/t skin status Signs/Symptoms as evidenced by need for po supplements to help w/ wound healing of stage IV sacral PI Status Active Problem Clinical Problem Altered Nutrient-Related Laboratory Values Etiology related to anemia Signs/Symptoms as evidenced by recent transfusion and Hgb 9.7, Hct 31.8 Status Inactive Problem Recommendation Dietitian Recommendations/Changes Will provide one salt packet w / meals Will continue diet as ordered w/ smaller portions per res request Will continue ensure enlive w/ meals and Shaan bid w/ medpass. Lab / Micro Data Result Diagrams: 05/31/21 22:25 05/31/21 22:25 Micro: Microbiology 05/31/21 22:59 Urine Catheter - Gutierrez Urine Culture - Preliminary Gram Positive Cocci 05/31/21 22:25 Mucosa - Nasopharyngeal Respiratory Panel (PCR) - Final 05/21/21 08:30 Mucosa - Nose SARS-CoV-2 Antigen (Rapid) - Final Physical Exam Const alert, oriented x3 and no apparent distress General Appearance: cooperative and comfortable Neck supple General: trachea midline Resp normal respiratory effort Effort and Inspection: able to speak in complete sentences and symmetric chest movement Auscultation: clear to auscultation bilaterally and diminished lung sounds Cardio regular rate, regular rhythm, S1 normal heart sound and S2 normal heart sound GI soft to palpation GI Narrative: Mildly tender, present bowel sounds Skin Wound Narrative: Wound to sacrum not observed, has a wound VAC Neuro Neuro Narrative: No changes in neurological status Psych mental status grossly normal and cooperative Activity / Motor Behavior: appropriate eye contact Speech: normal speech Assessment & Plan Assessment/Plan (1) Nausea: (2) Abdominal pain: QUALIFIERS: Abdominal location: generalized Qualified Code(s): R10.84 - Generalized abdominal pain (3) Ileus: (4) Debility: (5) Neuropathic pain: (6) Diffuse large B cell lymphoma: QUALIFIERS: Lymphoma site: unspecified region Qualified Code(s): C83.30 - Diffuse large B-cell lymphoma, unspecified site (7) Paraplegia: (8) Epidural mass: (9) Pressure ulcer of sacral region, stage 4: (10) Coronary artery disease: QUALIFIERS: Coronary Disease-Associated Artery/Lesion type: unspecified vessel or lesion type [place] vs. transplanted heart: [place] heart Associated angina: without angina Qualified Code(s): I25.10 - Atherosclerotic heart disease of [place] coronary artery without angina pectoris PLAN: 75-year-old female with diffuse large B-cell lymphoma, epidural mass, currently receiving radiation therapy under the care of Dr. Polo, seen today for palliative follow-up regarding her significant n/v with ileus, as well as abdominal and back discomfort. 1. Nausea: Now with ileus. Monitor and make adjustments as indicated. Scheduled for diverting colostomy 06/06 to assist with wound healing. 06/01: Compazine ineffective so changed to Zofran [address] Osullivan, added olanzapine 2.5 mg at bedtime. 06/02: Increase Zofran to 8 mg every 8 hours, palliative change to scheduled for the time being. Will need reevaluated next week. We will check an EKG Saturday given her multiple potentially QT prolongating meds. 2. Abdominal and back pain: Again, has ileus. Chronic mild back pain, her mobility is compromised due to paraplegia 06/01:Recommend after surgery possibly short course dexamethasone if her pain is not well controlled, which may also help her nausea. 06/02: scheduled her Tylenol 1 g every 8 hours. Also tramadol 25 to 50 mg every 6 hours as needed for breakthrough pain. Titrate as needed. 2. Debility and weakness: paraplegia, in therapy. Weak from the radiation as well. Again, family making accommodations at home for her to be able to return there upon discharge. 3. Diffuse large B-cell lymphoma, thoracic epidural mass: She has begun radiation treatments. Continue follow-up w/oncology. 4. Neuropathic pain: Tylenol now scheduled as of 06/02. She does not feel much due to the paraplegia. We will continue to monitor this closely and make adjustments as indicated. Thank you for the opportunity to participate in this patient's care, please do not hesitate to contact [facility] with any further questions or concerns. Palliative direct line is [phone]. You can contact me with any urgent concerns at [phone]. Greater than 50% of F2F visit dedicated to education and counseling of palliative care services, medications, comorbid conditions and potential assistance with management, and plan of care moving forward. Start time: 1716 End time: 1749
[2021-06-02 18:16] VITALS: BP 155/75; PULSE 98
[2021-06-02] MEDS: Atorvastatin Calcium 40 MG Tablet PO (21:06)
[2021-06-02] MEDS: MELATONIN 3 MG TABLET PO (21:07)
[2021-06-02] MEDS: OLANZapine 2.5 MG Tablet PO (21:09)
[2021-06-03] VITALS (7 sets, daily range): BP systolic 115–157; BP diastolic 55–69; PULSE 82–91; RESP 17–18; TEMP 36.4; O2SAT 92–97
[2021-06-03] MEDS: Metoprolol Tartrate 50 MG Tablet PO ×5 (00:23→23:59)
[2021-06-03] MEDS: Enoxaparin 40 MG/0.4 ML Syringe SC (04:35)
[2021-06-03] MEDS: Linezolid 600 MG Tablet PO ×2 (04:35→17:36)
[2021-06-03] MEDS: Acetaminophen 500 MG Tablet 1000 MG PO ×3 (04:36→23:29)
[2021-06-03] MEDS: Gabapentin 300 MG Capsule PO ×3 (04:36→23:29)
[2021-06-03] MEDS: Nystatin Powder 15gm Bottle 1 APPLIC TOPICAL ×2 (04:41→17:44)
[2021-06-03] MEDS: Menthol/Lanolin/Calamine/Znox 113 GM Tube 1 APPLIC TOPICAL ×2 (04:41→17:35)
[2021-06-03] MEDS: Senna Tablet 1 TABLET PO ×2 (04:42→17:36)
[2021-06-03] MEDS: Lisinopril 5 MG Tablet PO (04:43)
[2021-06-03] MEDS: Bisacodyl 10 MG Suppository RC (04:47)
[2021-06-03] MEDS: Ondansetron 4 MG/2 ML Vial 8 MG IV ×3 (05:47→23:38)
[2021-06-03] MEDS: Lactated Ringers 1,000 ML 75 ML IV (08:02)
[2021-06-03] MEDS: Juven (unflavored) Packet 1 PACKET PO ×2 (08:05→17:33)
[2021-06-03] MEDS: Multivitamins,Therapeutic Tablet 1 TABLET PO (08:05)
[2021-06-03] MEDS: Amiodarone 200 MG Tablet 400 MG PO (08:05)
[2021-06-03 08:29] LABS: Hemoglobin 8.6 g/dL (12.0-15.0); Mean Corp Hgb Conc 30.7 g/dL (32-36); Mean Corpuscular Hgb 24.7 pg (27.0-32.0); Mean Corpuscular Volume 80.5 fL (81-99); Mean Platelet Vol. 8.6 fl (6.2-12.0); POSITIVE COUNT YES; POSITIVE DIFFERENTIAL YES; POSITIVE MORPHOLOGY YES; Platelet Count 221 K/mm3 (150-450); RBC Distribution Width CV 18.4 % (11.6-14.6); RBC Distribution Width SD 50.4 fl (35.1-43.9); Red Blood Count 3.48 M/mm3 (4.2-5.4); White Blood Count 12.9 K/mm3 (4.4-11.0)
[2021-06-03 08:34] LABS: Differential Indicated MANUAL DIFF
[2021-06-03 08:56] LABS: Anion Gap 6 (5-15); BUN 11 mg/dL (7-18); BUN/Creat Ratio 44.7 RATIO (10-20); Calcium,Total 8.5 mg/dL (8.5-10.1); Chloride 107 mmol/L (98-107); Creatinine, Serum 0.25 mg/dL (0.55-1.02); EST Glomerular Filtration Rate 289 mL/min (>60); Est Glom Filt Rate - Afr Amer 349 mL/min (>60); Estimated Creatinine Clearance 41.33 ml/min; Glucose 78 mg/dL (74-106); Potassium 3.3 mmol/L (3.5-5.1); Sodium Level 139 mmol/L (136-145)
[2021-06-03 09:05] LABS: Eosinophil 3 % (0-5); Lymphocyte 1 % (19-41); Neutrophil-Band 3 % (0-5); Neutrophil-Segmented 93 % (47-70); Platelet Estimate ADEQUATE (ADEQ); Red Cell Morphology NORM C+C NORMAL (NORM C&C); Total Cells Counted 100 (MANUAL DIFF)
[2021-06-03 09:06] LABS: Absolute Lymphocyte Count 0.12 X10^3/uL (0.83-4.51); Absolute Neutrophil Count 12.3 X10^3/uL (2.0-7.7); Lymphocyte # 0.12 X10^3/ul (0.83-4.51)
[2021-06-03] MEDS: Atorvastatin Calcium 40 MG Tablet PO (23:28)
[2021-06-03] MEDS: MELATONIN 3 MG TABLET PO (23:28)
[2021-06-03] MEDS: OLANZapine 2.5 MG Tablet PO (23:30)
[2021-06-04 06:45] VITALS: BP 156/72; PULSE 90; RESP 16; TEMP 36.8; O2SAT 96
--- NOTE | 2021-06-04 07:53 | NURSING ---
Wound vac alarming indicating there is a blockage. One piece of black foam spiraled in wound bed removed and additional black foam removed from bridge piece to lt hip. Periwound skin and wound bed cleansed w/ NS. Skin prep applied to9 periwound skin. One large piece of kerlix moistened w/ NS applied to wound bed, including undermining tissue. Covered w/ one ABD. Secured w/ paper tape. Pt tolerated well. Pericare completed, calmoseptine applied to gluteal golds, Nystatin powder applied to groin, new brief loosely secured. Reported to oncoming nurses.
--- NOTE | 2021-06-04 08:01 | NURSING ---
Received order from Dr. Osullivan for 40 meq potassium IV. Order repeated back, will add order.
--- NOTE | 2021-06-04 08:12 | NURSING ---
Contacted Esteban in pharmacy to clarify proper order enter for potassium. Received order to put 10 meq potassium x 4 bags to equal the 40 meq dose ordered.
[2021-06-04] MEDS: Acetaminophen 500 MG Tablet 1000 MG PO ×3 (08:39→22:27)
[2021-06-04] MEDS: Enoxaparin 40 MG/0.4 ML Syringe SC (08:39)
[2021-06-04] MEDS: Gabapentin 300 MG Capsule PO ×3 (08:39→22:26)
[2021-06-04] MEDS: Linezolid 600 MG Tablet PO ×2 (08:40→18:10)
[2021-06-04] MEDS: Juven (unflavored) Packet 1 PACKET PO ×2 (08:41→18:09)
[2021-06-04] MEDS: Multivitamins,Therapeutic Tablet 1 TABLET PO (08:42)
[2021-06-04] MEDS: Lisinopril 5 MG Tablet PO (08:43)
[2021-06-04] MEDS: Ondansetron 4 MG/2 ML Vial 8 MG IV ×3 (08:47→22:21)
[2021-06-04] MEDS: Bisacodyl 10 MG Suppository RC (08:49)
[2021-06-04] MEDS: Senna Tablet 1 TABLET PO ×2 (08:49→18:10)
[2021-06-04] MEDS: Menthol/Lanolin/Calamine/Znox 113 GM Tube 1 APPLIC TOPICAL ×2 (08:50→18:14)
[2021-06-04] MEDS: Nystatin Powder 15gm Bottle 1 APPLIC TOPICAL ×2 (08:50→18:10)
[2021-06-04 09:08] VITALS: BP 159/69; PULSE 98
[2021-06-04] MEDS: Metoprolol Tartrate 50 MG Tablet PO ×3 (09:08→18:10)
[2021-06-04] MEDS: Amiodarone 200 MG Tablet 400 MG PO (09:08)
[2021-06-04] MEDS: Potassium Chloride 10mEq/100mL 10 MEQ/100 ML IV.SOLN. 100 MEQ IV BOLUS ×4 (10:39→14:30)
[2021-06-04 12:04] VITALS: BP 169/82; PULSE 82
[2021-06-04 14:50] VITALS: BP 149/77; PULSE 78; RESP 18; TEMP 36.6; O2SAT 95
[2021-06-04 18:10] VITALS: BP 149/77; PULSE 78
[2021-06-04] MEDS: 0.9% Saline Lock 10 ML Syringe IV (22:21)
[2021-06-04] MEDS: MELATONIN 3 MG TABLET PO (22:26)
[2021-06-04] MEDS: OLANZapine 2.5 MG Tablet PO (22:26)
[2021-06-04] MEDS: Atorvastatin Calcium 40 MG Tablet PO (22:27)
[2021-06-05] VITALS (8 sets, daily range): BP systolic 153–176; BP diastolic 72–82; PULSE 75–92; RESP 16–18; TEMP 35.9–36.3; O2SAT 94–96
[2021-06-05] MEDS: traMADol 50 MG Tablet PO (00:11)
[2021-06-05] MEDS: Metoprolol Tartrate 50 MG Tablet PO ×5 (00:11→23:02)
[2021-06-05] MEDS: Enoxaparin 40 MG/0.4 ML Syringe SC (06:02)
[2021-06-05] MEDS: Acetaminophen 500 MG Tablet 1000 MG PO ×3 (06:03→22:55)
[2021-06-05] MEDS: Linezolid 600 MG Tablet PO ×2 (06:04→18:21)
[2021-06-05] MEDS: Lisinopril 5 MG Tablet PO (06:04)
[2021-06-05] MEDS: 0.9% Saline Lock 10 ML Syringe IV ×3 (06:05→21:20)
[2021-06-05] MEDS: Ondansetron 4 MG/2 ML Vial 8 MG IV ×3 (06:06→21:27)
[2021-06-05] MEDS: Menthol/Lanolin/Calamine/Znox 113 GM Tube 1 APPLIC TOPICAL ×2 (06:13→18:22)
[2021-06-05] MEDS: Nystatin Powder 15gm Bottle 1 APPLIC TOPICAL ×2 (06:14→18:23)
[2021-06-05] MEDS: Bisacodyl 10 MG Suppository RC (06:17)
[2021-06-05] MEDS: Senna Tablet 1 TABLET PO ×2 (06:17→18:21)
--- NOTE | 2021-06-05 08:00 | EKG12_ITS ---
Test Reason : SEPSIS Blood Pressure : / mmHG Vent. Rate : 073 BPM Atrial Rate : 073 BPM P-R Int : 144 ms QRS Dur : 086 ms QT Int : 466 ms P-R-T Axes : 030 -07 029 degrees QTc Int : 513 ms Normal sinus rhythm Possible LAE Prolonged QT Abnormal ECG Confirmed by GUERLINE JOHNS, NATASHA ([id number]), editor book VANESSA PERES ([id number]) on 06/07/2021 10:15:48 AM Referred By: Jarod Menendez Confirmed By:NATASHA CUNHA MD
[2021-06-05] MEDS: Multivitamins,Therapeutic Tablet 1 TABLET PO (08:47)
[2021-06-05] MEDS: Amiodarone 200 MG Tablet 400 MG PO (08:47)
[2021-06-05] MEDS: Gabapentin 300 MG Capsule PO ×3 (08:50→18:21)
[2021-06-05] MEDS: Juven (unflavored) Packet 1 PACKET PO ×2 (10:17→18:21)
--- NOTE | 2021-06-05 12:21 | PCM.PN.PAL ---
Subjective Subjective Patient seen and examined. She is sitting up in bed, appears to be in good spirits. She is visiting with her spouse and sister, Kaitlin. States she had about 10 people from the [facility] and last night visiting for quite some time, feeling at peace about things. She has not had much nausea and vomiting at all, Zofran is very effective. She is still getting it scheduled every 8 hours. Denies any pain or shortness of breath. She has been advanced to full liquid diet and is tolerating this well so far. We discussed her medications and plan of care moving forward. Questions were asked and answered. She is ready for surgery, states she is on the books for 0730. Anticipates she will come back to TCU after surgery, she verbalized understanding of plan of care. Objective Data Objective Data Reviewed vitals, labs, nurses notes. Potassium is a little low at 3.3, replacement per attending. White count is up to 12.9. She is growing a rare bacteria in her urine. ID is following. EKG has not yet been performed so did not review as of yet, nursing called to inquire. Was ordered for this morning at 0800. Vital Signs: Vital Signs Temp Pulse Resp BP Pulse Ox 96.7 F L 87 18 164/78 H 94 06/05/21 05:59 06/05/21 11:51 06/05/21 05:59 06/05/21 11:51 06/05/21 05:59 Oxygen Delivery Method Room Air Weight: 84.55 kg Body Mass Index (BMI) 31.6 Intake & Output: Intake and Output for Last 24 Hours 06/03/21 06/04/21 06/05/21 23:59 23:59 23:59 Intake Total 3304 / 3304 1808 / 1808 592 / 592 Output Total 2400 / 2400 1750 / 1750 Balance 3304 / 3304 -592 / -592 -1158 / -1158 Medical Nutrition Assessment Dietitian: Malnutrition Criteria Met Start: 05/20/21 13:16 Freq: Status: Active Protocol: Document 05/31/21 14:44 ENID (Rec: 05/31/21 14:44 ENID [id number]) Nutrition Malnutrition Evidence of Malnutrition Exists No Intake Problem Inadequate Oral Intake Etiology related to nausea and vomiting Signs/Symptoms as evidenced by res with emesis x 3 yesterday and with poor po intake today Status Active Problem Increased Nutrient Needs (specify) Etiology protein r/t skin status Signs/Symptoms as evidenced by need for po supplements to help w/ wound healing of stage IV sacral PI Status Active Problem Clinical Problem Altered Nutrient-Related Laboratory Values Etiology related to anemia Signs/Symptoms as evidenced by recent transfusion and Hgb 9.7, Hct 31.8 Status Inactive Problem Recommendation Dietitian Recommendations/Changes Will provide one salt packet w / meals Will continue diet as ordered w/ smaller portions per res request Will continue ensure enlive w/ meals and Shaan bid w/ medpass. Lab / Micro Data Result Diagrams: 06/03/21 07:45 06/03/21 07:45 Micro: Microbiology 05/31/21 22:59 Urine Catheter - Gutierrez Urine Culture - Final [place]ost[place] mesenteroides dext 05/31/21 22:30 Blood Culture (Wb) - Left Hand Blood Culture - Preliminary No growth in 48 hours. 05/31/21 22:25 Blood Culture (Wb) - Anticubital Left Blood Culture - Preliminary No growth in 48 hours. 05/31/21 22:25 Mucosa - Nasopharyngeal Respiratory Panel (PCR) - Final 05/21/21 08:30 Mucosa - Nose SARS-CoV-2 Antigen (Rapid) - Final Physical Exam Const alert, oriented x3 and no apparent distress General Appearance: cooperative and comfortable HEENT normocephalic and head/scalp atraumatic Neck supple General: trachea midline Resp normal respiratory effort and clear to auscultation bilaterally Effort and Inspection: able to speak in complete sentences and symmetric chest movement Auscultation: clear to auscultation bilaterally and diminished lung sounds Cardio regular rate, regular rhythm, S1 normal heart sound and S2 normal heart sound GI normal to inspection, nondistended, normoactive bowel sounds and soft to palpation GI Narrative: Mildly tender, present bowel sounds Neuro Neuro Narrative: No changes in neurological status Psych mental status grossly normal Assessment & Plan Assessment/Plan (1) Nausea: (2) Abdominal pain: QUALIFIERS: Abdominal location: generalized Qualified Code(s): R10.84 - Generalized abdominal pain (3) Ileus: (4) Debility: (5) Neuropathic pain: (6) Diffuse large B cell lymphoma: QUALIFIERS: Lymphoma site: unspecified region Qualified Code(s): C83.30 - Diffuse large B-cell lymphoma, unspecified site (7) Paraplegia: (8) Epidural mass: (9) Pressure ulcer of sacral region, stage 4: (10) Coronary artery disease: QUALIFIERS: Associated angina: without angina Coronary Disease-Associated Artery/Lesion type: unspecified vessel or lesion type [place] vs. transplanted heart: elem heart Qualified Code(s): I25.10 - Atherosclerotic heart disease of elem coronary artery without angina pectoris PLAN: 75-year-old female with diffuse large B-cell lymphoma, epidural mass, currently receiving radiation therapy under the care of Dr. Polo, seen today for palliative follow-up regarding her significant n/v with ileus, as well as abdominal and back discomfort. 1. Nausea: Now with ileus. Monitor and make adjustments as indicated. Scheduled for diverting colostomy 06/06 to assist with wound healing. 06/01: Compazine ineffective so changed to Zofran [address] Osullivan, added olanzapine 2.5 mg at bedtime. 06/02: Increase Zofran to 8 mg every 8 hours, palliative change to scheduled for the time being. Will need reevaluated next week. We will check an EKG Saturday given her multiple potentially QT prolongating meds. 06/03: continue zofran 8mg q8h scheduled, effective and no abd pain or n/v. We will reevaluate after surgery. 2. Abdominal and back pain: Again, has ileus. Chronic mild back pain, her mobility is compromised due to paraplegia 06/01: dexamethasone if her pain is not well controlled, which may also help nausea. 06/02: scheduled her Tylenol 1 g every 8 hours. Also tramadol 25 to 50 mg every 6 hours as needed for breakthrough pain. Titrate as needed. 06/03: no pain, no PRN tramadol used, monitor and adjust as needed. 2. Debility and weakness: paraplegia, in therapy. Weak from the radiation as well. Again, family making accommodations at home for her to be able to return there upon discharge. 3. Diffuse large B-cell lymphoma, thoracic epidural mass: She has begun radiation treatments. Continue follow-up w/oncology. 4. Neuropathic pain: Tylenol now scheduled as of 06/02, effective. She does not feel much due to the paraplegia. We will continue to monitor this closely and make adjustments as indicated. Thank you for the opportunity to participate in this patient's care, please do not hesitate to contact [facility] with any further questions or concerns. Palliative direct line is [phone]. You can contact me with any urgent concerns at [phone]. Greater than 50% of F2F visit dedicated to education and counseling of palliative care services, medications, comorbid conditions and potential assistance with management, and plan of care moving forward. Start time: 1220 End time: 1244
[2021-06-05 13:21] LABS: Hematocrit 32.9 % (37-47); Hemoglobin 9.9 g/dL (12.0-15.0)
[2021-06-05 13:34] LABS: Anion Gap 5 (5-15); BUN 14 mg/dL (7-18); BUN/Creat Ratio 44.2 RATIO (10-20); Calcium,Total 8.3 mg/dL (8.5-10.1); Chloride 106 mmol/L (98-107); Creatinine, Serum 0.32 mg/dL (0.55-1.02); EST Glomerular Filtration Rate 215 mL/min (>60); Est Glom Filt Rate - Afr Amer 261 mL/min (>60); Estimated Creatinine Clearance 41.33 ml/min; Glucose 83 mg/dL (74-106); Potassium 3.6 mmol/L (3.5-5.1); Sodium Level 139 mmol/L (136-145)
--- NOTE | 2021-06-05 13:56 | PCM.PN.SRG ---
Subjective Subjective Patient was seen and examined during morning rounds. She is sitting upright in bed and probably reports that she is feeling much better. She states that she had a very good day yesterday and continues to feel well today. She has experienced return of bowel function and has been tolerating liquids. She states that there was some wound VAC dysfunction over the weekend requiring staff to place her on wet-to-dry dressings. She is due to be evaluated by wound care today. She has several questions regarding how her family will be able to receive updates for the surgery tomorrow. Objective Data Objective Data Vital Signs: Vital Signs Temp Pulse Resp BP Pulse Ox 97.3 F L 75 16 176/77 H 96 06/05/21 13:17 06/05/21 13:17 06/05/21 13:17 06/05/21 13:17 06/05/21 13:17 Oxygen Delivery Method Room Air Weight: 186 lb 6.4 oz Body Mass Index (BMI) 31.6 Intake & Output: Intake and Output for Last 24 Hours 06/03/21 06/04/21 06/05/21 23:59 23:59 23:59 Intake Total 3304 / 3304 1808 / 1808 592 / 592 Output Total 2400 / 2400 1750 / 1750 Balance 3304 / 3304 -592 / -592 -1158 / -1158 Medical Nutrition Assessment Dietitian: Malnutrition Criteria Met Start: 05/20/21 13:16 Freq: Status: Active Protocol: Document 05/31/21 14:44 ENID (Rec: 05/31/21 14:44 ENID [id number]) Nutrition Malnutrition Evidence of Malnutrition Exists No Intake Problem Inadequate Oral Intake Etiology related to nausea and vomiting Signs/Symptoms as evidenced by res with emesis x 3 yesterday and with poor po intake today Status Active Problem Increased Nutrient Needs (specify) Etiology protein r/t skin status Signs/Symptoms as evidenced by need for po supplements to help w/ wound healing of stage IV sacral PI Status Active Problem Clinical Problem Altered Nutrient-Related Laboratory Values Etiology related to anemia Signs/Symptoms as evidenced by recent transfusion and Hgb 9.7, Hct 31.8 Status Inactive Problem Recommendation Dietitian Recommendations/Changes Will provide one salt packet w / meals Will continue diet as ordered w/ smaller portions per res request Will continue ensure enlive w/ meals and Shaan bid w/ medpass. Lab / Micro Data Result Diagrams: 06/05/21 13:02 06/05/21 13:02 Labs: Laboratory Results - last 24 hr 06/05/21 13:02: Crossmatch See Detail 06/05/21 13:02: Hgb 9.9 L, Hct 32.9 L 06/05/21 13:02: Sodium 139, Potassium 3.6, Chloride 106, Carbon Dioxide 28.0, Anion Gap 5, BUN 14, Creatinine 0.32 L, Estim Creat Clear Calc 41.33, Est GFR (MDRD) Af Amer 261, Est GFR (MDRD) Non-Af 215, BUN/Creatinine Ratio 44.2 H, Glucose 83, Calcium 8.3 L Micro: Microbiology 05/31/21 22:59 Urine Catheter - Gutierrez Urine Culture - Final [place] mesenteroides dext 05/31/21 22:30 Blood Culture (Wb) - Left Hand Blood Culture - Preliminary No growth in 48 hours. 05/31/21 22:25 Blood Culture (Wb) - Anticubital Left Blood Culture - Preliminary No growth in 48 hours. 05/31/21 22:25 Mucosa - Nasopharyngeal Respiratory Panel (PCR) - Final 05/21/21 08:30 Mucosa - Nose SARS-CoV-2 Antigen (Rapid) - Final Physical Exam Const oriented x3 and no apparent distress GI soft to palpation and non-tender Inspection: Negative for abdominal distention Assessment & Plan Assessment/Plan (1) Adynamic ileus: PLAN: Ileus appears to be resolved/resolving. Would proceed with Dulcolax suppositories as needed. I have advised patient to consume carbonation with moderation as her GI motility is reestablished. Continue probiotic therapy. (2) Decubital ulcer: QUALIFIERS: Pressure injury location: buttock Pressure injury stage: unstageable Laterality: unspecified laterality Qualified Code(s): L89.300 - Pressure ulcer of unspecified buttock, unstageable PLAN: ?Patient currently in wet-to-dry dressings awaiting replacement of wound VAC ?Planning for diverting colostomy tomorrow 06/06/2021. Please keep patient n.p.o. past midnight. Charges/Coding Visit Charges OBSV E&M: 46185 Subsequent observation care L3
--- NOTE | 2021-06-05 15:51 | NURSING ---
AMBULATORY CALLED AND STATED THEY WILL BE UP TOMORROW 06/06 AT 6AM TO GET PT FOR SURGERY THAT IS SCHEDULED FOR 7:30 AM.RN, PT AND AWARE
--- NOTE | 2021-06-05 18:48 | NURSING ---
Addendum entered by Vika Roberts 06/05/21 18:50: in the morning before surgery. Original Note: Pt is going to surgery 06/[address] Brenda barrientos to give Gabapentin Metoprolol Lisinopril and Zofran
[2021-06-05] MEDS: OLANZapine 2.5 MG Tablet PO (22:54)
[2021-06-05] MEDS: MELATONIN 3 MG TABLET PO (22:54)
[2021-06-05] MEDS: Atorvastatin Calcium 40 MG Tablet PO (22:54)
[2021-06-06 05:13] VITALS: BP 166/70; PULSE 77; RESP 16; TEMP 36.8; O2SAT 96
[2021-06-06 05:18] VITALS: BP 166/70; PULSE 77
[2021-06-06] MEDS: Metoprolol Tartrate 50 MG Tablet PO (05:18)
[2021-06-06] MEDS: Gabapentin 300 MG Capsule PO (05:19)
[2021-06-06] MEDS: Ondansetron 4 MG/2 ML Vial 8 MG IV (05:19)
[2021-06-06] MEDS: Lisinopril 5 MG Tablet PO (05:19)
[2021-06-06] MEDS: 0.9% Saline Lock 10 ML Syringe IV (05:33)
--- NOTE | 2021-06-06 17:56 | PCM.DC.SUM ---
Providers Date of Admission: 05/19/21 Primary Care Physician: Dr. Modesto Fulton MD Consultations 05/19/21 18:33 Consult: Onc/Wound/conference specialist Routine Comment: 05/19/21 19:31 Consult: Infectious Disease Routine Consulting Provider: Favian Nguyen Reason for Consult: Polymicrobial sacral osteomyelitis. EMERGENT Consult: No MD Notified: Yes Date Notified: 05/19/21 Time Notified: 11:22 Method of Notification: Provider Initiated Consult: Plastic Surgery Routine Consulting Provider: Brice Maciel Reason for Consult: Sacral osteomyelitis s/p debridement. EMERGENT Consult: No MD Notified: Yes Date Notified: 05/23/21 Time Notified: 13:22 Method of Notification: Verbal 06/01/21 01:15 Consult: General Surgery Routine Consulting Provider: Jose Machado Reason for Consult: Colonic ileus EMERGENT Consult: No Notified: Yes Date Notified: 06/01/21 Time Notified: 01:15 Method of Notification: Verbal Reason For Visit: SEVER SEPSIS Diagnosis Discharge Diagnosis (1) History of radiation therapy: Status: Acute Code(s): Z92.3 - Personal history of irradiation (2) Hx of CABG: Status: Acute Code(s): Z95.1 - Presence of aortocoronary bypass graft (3) Adynamic ileus: Status: Acute Code(s): K56.0 - Paralytic ileus (4) Debility: Status: Acute Code(s): R53.81 - Other malaise (5) Epidural mass: Status: Acute Code(s): G96.198 - Other disorders of meninges, not elsewhere classified (6) Diffuse large B-cell lymphoma: Status: Acute Code(s): C83.30 - Diffuse large B-cell lymphoma, unspecified site Qualifiers: Lymphoma site: extranodal excluding spleen and other solid organs Qualified Code(s): C83.39 - Diffuse large B-cell lymphoma, extranodal and solid organ sites (7) Paraplegia: Status: Acute Code(s): G82.20 - Paraplegia, unspecified (8) Pressure ulcer of sacral region, stage 4: Status: Acute Code(s): L89.154 - Pressure ulcer of sacral region, stage 4 (9) Decubitus ulcer, infected: Status: Acute Code(s): L89.90 - Pressure ulcer of unspecified site, unspecified stage; L08.9 - Local infection of the skin and subcutaneous tissue, unspecified Qualifiers: Pressure injury stage: stage 4 Qualified Code(s): L89.94 - Pressure ulcer of unspecified site, stage 4; L08.9 - Local infection of the skin and subcutaneous tissue, unspecified (10) Osteomyelitis of pelvis: Status: Acute Code(s): M86.9 - Osteomyelitis, unspecified (11) S/P excisional debridement: Status: Acute Code(s): Z98.890 - Other specified postprocedural states (12) Acute postoperative anemia due to expected blood loss: Status: Acute Code(s): D62 - Acute posthemorrhagic anemia (13) Dehydration: Status: Acute Code(s): E86.0 - Dehydration (14) Neuropathic pain: Status: Acute Code(s): M79.2 - Neuralgia and neuritis, unspecified (15) UTI (urinary tract infection): Status: Acute Code(s): N39.0 - Urinary tract infection, site not specified (16) Coronary artery disease: Status: Acute Code(s): I25.10 - Atherosclerotic heart disease of [place] coronary artery without angina pectoris Qualifiers: Associated angina: without angina Coronary Disease-Associated Artery/Lesion type: unspecified vessel or lesion type [place] vs. transplanted heart: [place] heart Qualified Code(s): I25.10 - Atherosclerotic heart disease of [place] coronary artery without angina pectoris Plan: Admitted to [facility] on 06/06/21 for a diverting colostomy to be performed by Dr. Machado. Medications at Discharge Home Medications acetaminophen 500 mg tablet 1,000 mg PO Q6H PRN tab 05/08/21 apixaban 5 mg tablet 5 mg PO BID 05/08/21 atorvastatin 40 mg tablet 40 mg PO DAILY 05/08/21 bisacodyl 10 mg rectal suppository 10 mg NE DAILY PRN 05/08/21 gabapentin 300 mg capsule 300 mg PO TID 05/08/21 lisinopril 5 mg tablet 5 mg PO DAILY 05/08/21 melatonin 3 mg capsule 3 mg PO HS 05/08/21 metoprolol succinate 50 mg tablet,extended release 24 hr 50 mg PO Q6H 05/08/21 polyethylene glycol 3350 17 gram/dose oral powder 17 g PO DAILY 05/08/21 sennosides 8.6 mg capsule 8.6 mg PO BID 05/08/21 amiodarone 400 mg PO DAILY 05/14/21 aspirin 81 mg PO DAILY 05/14/21 multivitamin 1 tab PO DAILY 05/14/21 prochlorperazine maleate [Compazine] 10 mg PO Q6H PRN 05/14/21 [id number] [Shaan (with collagen)] 1 packet PO BIDCM 05/19/21 linezolid [Zyvox] 600 mg PO Q12H 05/19/21 meropenem 1 g IV Q8 05/19/21 Hospital Course Operations None Procedures - (radiation for epidural mass ) Summary of Care Provided Minutes Spent on Discharge: 43 Hospital Course: Carolann Enriquez is a 75-year-old female with a past medical history significant for diffuse large B-cell lymphoma who on 03/02/2021 underwent surgery at [facility] to 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 She also had atrial fibrillation with rapid ventricular response during that admission. On 05/05/2021 she was admitted to the transitional care unit at [facility] for rehabilitation. She was seen by Dr. Polo for a radiation oncology consult and has been receiving radiation to the area of the dural mass. At admission to TCU she was noted to have a pressure ulcer on her back side. She was seen and evaluated by the ostomy nurse and consult was ordered for Dr. Maciel. On 05/15/2021 she was taken to surgery by Dr. Maciel for excision of necrotic stage 4 sacral decubitus ulcer with partial ostectomy for osteomyelitis. Pathology showed acute osteomyelitis. She was seen in consultation by Dr. Favian Nguyen and he is managing the Antibiotics. Consult was also obtained with Dr. Machado for a diverting colostomy. The surgery was scheduled for 06/06/21 and she is being discharged on 06/06/21 for that surgery. Post operatively she will be admitted to the acute side of the hospital. Physical Exam Const alert and oriented x3 General Appearance: cooperative HEENT moist oral mucous membranes and oropharynx normal Eyes PERRL and EOMs intact bilaterally Resp clear to auscultation bilaterally Cardio regular rate, regular rhythm, S1 normal heart sound, S2 normal heart sound, no rub, no gallops and no JVD GI soft to palpation and non-distended GI Narrative: No guarding with palpation, normal bowel sounds. Extremity no calf tenderness Skin Rashes: no rashes Wound Narrative: Stage IV sacral decubitus ulcer with osteomyelitis and a wound VAC in place Psych mental status grossly normal, thought process normal and cooperative Medical Records Data Medical Nutrition Assessment Dietitian: Malnutrition Criteria Met Start: 05/20/21 13:16 Freq: Status: Active Protocol: Document 05/31/21 14:44 [facility] (Rec: 05/31/21 14:44 [facility] [id number]) Nutrition Malnutrition Evidence of Malnutrition Exists No Intake Problem Inadequate Oral Intake Etiology related to nausea and vomiting Signs/Symptoms as evidenced by res with emesis x 3 yesterday and with poor po intake today Status Active Problem Increased Nutrient Needs (specify) Etiology protein r/t skin status Signs/Symptoms as evidenced by need for po supplements to help w/ wound healing of stage IV sacral PI Status Active Problem Clinical Problem Altered Nutrient-Related Laboratory Values Etiology related to anemia Signs/Symptoms as evidenced by recent transfusion and Hgb 9.7, Hct 31.8 Status Inactive Problem Recommendation Dietitian Recommendations/Changes Will provide one salt packet w / meals Will continue diet as ordered w/ smaller portions per res request Will continue ensure enlive w/ meals and Shaan bid w/ medpass. Weight / BMI Weight Weight: 186 lb 6.4 oz Body Mass Index (BMI) 31.6 ABG / Lab / Microbiology Data Result Diagrams: 06/05/21 13:02 06/05/21 13:02 Microbiology: Microbiology 05/31/21 22:30 Blood Culture (Wb) - Left Hand Blood Culture - Final No growth in 5 days. 05/31/21 22:25 Blood Culture (Wb) - Anticubital Left Blood Culture - Final No growth in 5 days. 05/31/21 22:59 Urine Catheter - Gutierrez Urine Culture - Final [place] mesenteroides dext 05/31/21 22:25 Mucosa - Nasopharyngeal Respiratory Panel (PCR) - Final 05/21/21 08:30 Mucosa - Nose SARS-CoV-2 Antigen (Rapid) - Final Meaningful Use Info Meaningful Use Diagnoses (Choose all that apply): None applicable Discharge Plan Admission Admit Date/Time: 05/19/21 16:55 Primary Reason for Your Visit: Debility secondary to recent excision of thoracic epidural mass Attending Provider: Jarod Menendez Chi Primary Care Provider: Modesto Fulton Consulting Providers: Favian Nguyen ; Brice Maciel ; Jose Machado Instructions Patient Instructions: ED Chest Pain, Noncardiac Discharge Orders/Prescriptions Prescriptions: No Action acetaminophen [Tylenol Extra Strength] 500 mg tablet 1,000 mg PO Q6H PRN (Reason: Pain) RF: 0 polyethylene glycol 3350 [Miralax] 17 gram/dose powder 17 g PO DAILY RF: 0 senna 8.6 mg capsule 8.6 mg PO BID RF: 0 bisacodyl [Dulcolax (bisacodyl)] 10 mg suppository 10 mg NE DAILY PRN (Reason: Constipation) RF: 0 Eliquis 5 mg tablet 5 mg PO BID RF: 0 metoprolol succinate 50 mg tablet extended release 24 hr 50 mg PO Q6H RF: 0 lisinopril 5 mg tablet 5 mg PO DAILY RF: 0 atorvastatin 40 mg tablet 40 mg PO DAILY RF: 0 gabapentin 300 mg capsule 300 mg PO TID RF: 0 melatonin 3 mg capsule 3 mg PO HS RF: 0 multivitamin Tablet 1 tab PO DAILY RF: 0 amiodarone 200 mg Tablet 400 mg PO DAILY RF: 0 prochlorperazine maleate [Compazine] 10 mg Tablet 10 mg PO Q6H PRN (Reason: Nausea) RF: 0 aspirin 81 mg Tablet 81 mg PO DAILY RF: 0 linezolid [Zyvox] 600 mg tablet 600 mg PO Q12H RF: 0 meropenem 1 gram recon soln 1 g IV Q8 RF: 0 Shaan (with collagen) 7-7-1.5 gram powder in packet 1 packet PO BIDCM RF: 0 Referrals / Follow Up: Modesto Fulton MD [Primary Care Provider] - Disposition Disposition (needs filled in before D/C Order can be placed): Acute Care Hospital [facility] Charges/Coding Visit Charges Inpatient E&M: 33894 Disch Hosp
== END 2021-06-06 06:00 | disposition short-term general hospital (02) | DRG 949 ==
PROVIDERS: Internal Medicine; Admitting Provider Family Medicine Geriatric Medicine; PCP Family Medicine; Visit Provider Family Medicine Geriatric Medicine
DX: Z48.817 Encounter for surgical aftercare following surgery on the skin and subcutaneous tissue (principal); L89.154 Pressure ulcer of sacral region, stage 4; C83.30 Diffuse large B-cell lymphoma, unspecified site; G82.20 Paraplegia, unspecified; Z16.21 Resistance to vancomycin; M46.28 Osteomyelitis of vertebra, sacral and sacrococcygeal region; K56.0 Paralytic ileus; L08.9 Local infection of the skin and subcutaneous tissue, unspecified; I48.91 Unspecified atrial fibrillation; I25.10 Atherosclerotic heart disease of native coronary artery without angina pectoris; B95.2 Enterococcus as the cause of diseases classified elsewhere; B96.20 Unspecified Escherichia coli [E. coli] as the cause of diseases classified elsewhere; B96.1 Klebsiella pneumoniae [K. pneumoniae] as the cause of diseases classified elsewhere; I25.2 Old myocardial infarction; E78.5 Hyperlipidemia, unspecified; G62.9 Polyneuropathy, unspecified; Z79.899 Other long term (current) drug therapy; Z79.84 Long term (current) use of oral hypoglycemic drugs; Z79.01 Long term (current) use of anticoagulants
CPT/HCPCS: 71045; 74018; 74019; 80048; 81001; 85014; 85018; 85025; 86850; 86900; 86901; 86920; 86922; 87040; 87077; 87086; 87088; 87426; 87633; 87635; 93005; 97110; 97163; 97166; 97530; 97802; J2185; J2997; J7050; J7120; U0005; A4216; J0295; J2405; U0003

== ENCOUNTER 2021-06-06 11:04 | Inpatient (IN) | payer SELFPAY, OTHER ==
[2021-06-06] VITALS (16 sets, daily range): BP systolic 129–175; BP diastolic 52–83; PULSE 74–95; RESP 16–18; TEMP 36.1–36.7; O2SAT 93–100; BMI 30.9
--- NOTE | 2021-06-06 | COLBX_PTH ---
PATIENT: CHRISTOPHER CORONEL LOC: MS3 U#:[id number] AGE/SX: 75/F [place] [facility] [place] [place]06/[address]: Dr. Jose Machado MD : 1945 BED: 1 DIS: 06/08/2021 SPEC #: [id number] RECD: 06/06/21 12:14 STATUS: WALLACE CRESPO #: [id number] JAIMEE: 06/06/21 00:[address]: Jose Machado DEPT: SURGICAL PATHOLOGY RECD BY: Shaun Castle ENTERED: 06/06/21 12:14 SP TYPE: COLON BX OTHR DR: Dr. Modesto Fulton MD Tissues: Sigmoid colon biopsy Procedures: Surgery Specimen Level IV HEADER OPERATION: Laparoscopic sigmoid colostomy for fecal diversion PRE-OP DIAGNOSIS: Pressure ulcer of sacral region, stage 4 TISSUE SUBMITTED: Sigmoid colon MICROSCOPIC DIAGNOSIS Sigmoid colon, segmental resection: Segment of colon with attached pericolonic adipose tissue, no pathologic diagnosis. SJ:jeison 06/07/2021 MICROSCOPIC DESCRIPTION Slides are reviewed. GROSS DESCRIPTION Received in fixative is one container labeled with the patient's name and designated sigmoid colon. The specimen consists of a segment of colon with attached adipose tissue measuring 4 cm in length. Both resection margins are stapled. No mucosal lesion is identified. Attached pericolonic adipose tissue do not reveal any obviously enlarged lymph node. Asphalt Roller Operator sections are submitted in three cassettes as follows: 1 & 2 - colon, 3??pericolonic adipose tissue. / FELIX:jeison 06/06/21 TC:4 CPT: 36136
[2021-06-06] MEDS: Lactated Ringers 1,000 ML 100 ML IV ×2 (06:25→20:00)
--- NOTE | 2021-06-06 07:15 | PCM.HP.BLA ---
History and Physical Assessment & Plan Assessment/Plan (1) Pressure ulcer of sacral region, stage 4: PLAN: I have been asked to consult on Mrs. Enriquez regarding a possible diverting colostomy so as to improve her ability to heal her sacral decubitus ulcer. At this time she is still recovering from an acute septic event and remains on antibiotic therapy with her last CBC demonstrating a leukocytosis with left shift. Beyond this, her chemistries reveal severe protein calorie malnutrition with an albumin of 2 and prealbumin of 4.9. While she is amenable to a laparoscopic diverting colostomy as described, I have advised we postpone further discussions for at least 2 weeks to see if time will permit improvements in both her nutrition as well as give her time to clear her infection and regain some strength. I will plan to visit with her in a couple of weeks to update on her clinical status and determine better the timing of her proposed operation. All questions were taken from both and Mrs. Enriquez and answered to their satisfaction. They are in agreement with the above plan as described. 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 This decubitus wound has been debrided by Dr. Maciel of plastic surgery and the patient is receiving ongoing antibiotic therapy for a polymicrobial infection including VRE with Zyvox via a right upper extremity PICC line. She is scheduled for discharge to the transitional care unit today where she will continue to receive antibiotic therapy, wound care therapy, and resume radiation therapy for the tumor found on her spine. FORMERLY [facility], [facility]–1983 Medical History Afib Decubitus ulcer Large cell lymphoma Myocardial infarct Paraplegia Home Medications acetaminophen 500 mg tablet 1,000 mg PO Q6H PRN tab 05/08/21 [History Last Taken Unknown] apixaban 5 mg tablet 5 mg PO BID 05/08/21 [History Last Taken Unknown] atorvastatin 40 mg tablet 40 mg PO DAILY 05/08/21 [History Last Taken Unknown] bisacodyl 10 mg rectal suppository 10 mg MT DAILY PRN 05/08/21 [History Last Taken Unknown] gabapentin 300 mg capsule 300 mg PO TID 05/08/21 [History Last Taken Unknown] lisinopril 5 mg tablet 5 mg PO DAILY 05/08/21 [History Last Taken Unknown] melatonin 3 mg capsule 3 mg PO HS 05/08/21 [History Last Taken Unknown] metoprolol succinate 50 mg tablet,extended release 24 hr 50 mg PO Q6H 05/08/21 [History Last Taken Unknown] polyethylene glycol 3350 17 gram/dose oral powder 17 g PO DAILY 05/08/21 [History Last Taken Unknown] sennosides 8.6 mg capsule 8.6 mg PO BID 05/08/21 [History Last Taken Unknown] amiodarone 400 mg PO DAILY 05/14/21 [History Last Taken Unknown] aspirin 81 mg PO DAILY 05/14/21 [History Last Taken Unknown] multivitamin 1 tab PO DAILY 05/14/21 [History Last Taken Unknown] prochlorperazine maleate [Compazine] 10 mg PO Q6H PRN 05/14/21 [History Last Taken Unknown] [id number] [Shaan (with collagen)] 1 packet PO BIDCM #0 ea 05/19/21 [Rx Last Taken Unknown] linezolid [Zyvox] 600 mg PO Q12H 40 Days #80 tab 05/19/21 [Rx Last Taken Unknown] meropenem 1 g IV Q8 40 Days #0 ea 05/19/21 [Rx Last Taken Unknown] Allergy/AdvReac Type Severity Reaction Status Date / Time No Known Allergies Allergy Verified 05/17/21 10:28 Family History Father CHF (congestive heart failure) Mother CAD (coronary artery disease) Alzheimer disease Surgical History Hx of CABG S/P cholecystectomy Social History household members: family housing: house number of children: 5 Smoking Status: Never smoker alcohol intake: never substance use type: does not use chris/temple: Darion Physical Exam Const alert, oriented x3, no apparent distress and well nourished General Appearance: cooperative and comfortable Resp normal respiratory effort and no use of accessory muscles Effort and Inspection: able to speak in complete sentences GI soft to palpation, non-tender and non-distended GI Narrative: Transverse umbilical scar consistent with patient's history of prior laparoscopic cholecystectomy Inspection: scar Back/Spine Back/Spine Narrative: Patient has a longitudinal incision over the upper portion of her thoracic spine consistent with her prior surgery of removal of lymphoma mass. This area appears to now be well-healed. In the sacral region, patient has approximately 8-9 cm diameter defect where the decubitus ulcer has been debrided. There is currently a wound VAC in place with excellent seal and draining thin red to brown discharge. There is no apparent gross contamination from the fecal stream. However, the patient's anus is approximately 3 to 4 cm caudad. Medical Records Data Medical Nutrition Assessment Dietitian: Nutrition Therapy Diagnosis Start: 05/15/21 11:47 Freq: Status: Active Protocol: Document 05/17/21 15:33 AG (Rec: 05/17/21 15:33 AG [id number]) Nutrition Malnutrition Evidence of Malnutrition Exists No Intake Problem Inadequate Oral Intake Etiology r/t decreased appetite, altered tastes Signs/Symptoms as evidenced by reported intake meeting <50% of estimated nutritional needs x 3 days Status Active Problem Increased Nutrient Needs (specify) Etiology (protein) related to increased protein needs d/t pressure injury, sepsis, lymphoma Signs/Symptoms as evidenced by 11 by 8.5 by 3 .2 cm sacral pressure injury Status Active Problem Recommendation Dietitian Recommendations/Changes Regular diet d/t risk for malnutrition. Ensure Enlive 120mL w/ meals. Shaan BID for wound healing. Lab / Micro Data Result Diagrams: 05/18/21 06:18 document embedded image 05/18/21 06:18 document embedded image Micro:Microbiology 05/15/21 Unknown Wound - Buttock Gram Stain - Final 05/15/21 Unknown Wound - Buttock Wound Culture - Final Escherichia coli Vancomycin Resist. E. faecalis Vanc. Resist. E. gallinarum 05/15/21 Unknown Wound - Buttock Anaerobic Culture - Preliminary Checking for anaerobes, further studies to follow. 05/15/21 Unknown Wound - Buttock Gram Stain - Final 05/15/21 Unknown Wound - Buttock Wound Culture - Final Escherichia coli Klebsiella spp. Vanc. Resist. E. gallinarum Vancomycin Resist. E. faecalis 05/15/21 Unknown Wound - Buttock Anaerobic Culture - Preliminary Checking for anaerobes, further studies to follow. I have re-examined the patient. There are no clinical changes since yesterday. Patient denies any further questions regarding the procedure. We will plan to proceed as above with a laparoscopic, diverting end colostomy.
[2021-06-06] MEDS: Cefotetan 2 GM in 0.9% NS 100 ML IV (07:30)
--- NOTE | 2021-06-06 10:35 | OP.PCM_ITS ---
Problems Associated Problem List Diagnoses (1) Pressure ulcer of sacral region, stage 4: (2) Paraplegia: Report of Operation Date of Procedure: 06/06/21 Pre-Operative Diagnosis: Stage IV sacral decubitus ulcer, paraplegia Post-Operative Diagnosis: Same Surgery/Procedure Performed:: Laparoscopic sigmoid colectomy with creation of end colostomy for fecal diversion Description of Surgical Findings:: ?Normal-appearing sigmoid colon ?Laparoscopically confirmed orientation of end colostomy Surgeon: yoav filter machine operator: Yi Venegas Type of Anesthesia: General and Local Anesthesiologist: Tapan Ramos Specimen's removed: Sigmoid colon Drains: None Estimated Blood Loss (mL): 50 Description of Procedure: After appropriate identification in the preoperative h olding area the patient was brought to the operating room where she was positioned supine on the operating room table. Preoperative antibiotics were administered. Patient was then induced with a general anesthetic. Patient was positioned in yellowfin leg holders in a lithotomy position with the arms tucked bilaterally. A Gutierrez catheter was previously placed given the patient's paraplegia and 500 mL of clear yellow urine were drained prior to the procedure. Patient's abdomen was then prepped and draped in usual sterile fashion and a formal timeout was conducted amongst those present to confirm with the patient and the procedure. Procedure was commenced with a Veress entry at Hubbard's point in the left upper abdominal quadrant. Pneumoperitoneum was established to 15 mmHg. Using an optical trocar peritoneal entry was obtained in a supraumbilical position with a 5 mm trocar. Additional trochars were placed in the right lower quadrant suprapubic and left lower quadrant positions. In this configuration the patient was placed in a steep Trendelenburg to facilitate evacuation of the small bowel from the pelvis. Once the sigmoid colon was isolated a transection point was defined just distal to the sacral promontory. The mesocolon peritoneum was opened medially with the use of the LigaSure device. Then a window was created in the mesocolon at our transection point and the bowel was divided with 2 loads from the Endo OLGA stapler. Laterally the white line of Toldt was released with use of the LigaSure. Then the mesocolon was divided approximately 2 cm off the colon wall approximately until we reached substantial length to reach to the designated left lower quadrant ostomy site. Patient's abdomen was then desufflated and the left lower quadrant colostomy site was prepared by spreading the skin and subcutaneous tissues down to the anterior rectus sheath. This sheath was opened transversely. Rectus fibers were spread longitudinally and the colon was delivered through this opening. Pneumoperitoneum was reestablished and I confirmed with the laparoscope that the colon orientation was appropriate and there was no kinking. I was satisfied with this orientation, blue towels were placed around the cut edge of the colon and the colostomy was matured in a brooking fashion with 3-0 Vicryl suture so that there was good apposition between the skin and the bowel mucosa. The ostomy was then covered once again and inspection of the peritoneum revealed just a small amount of fluid that was suctioned free from the pelvis. The right lower quadrant port site was closed using the Topher-Reyes suture passer and the #1 PDS. Pneumoperitoneum was evacuated once and for all. The port sites were closed with 4-0 Monocryl in a subcuticular fashion. Steri-Strips and OpSite dressings were applied as dressings. A colostomy appliance was cut to the size of the patient's new ostomy and fat around stoma. This completed surgeries portion of the case and the case was then turned over to anesthesia. The patient was awoken from general anesthetic without complication and taken to PACU for ongoing recovery. Admit VTE Documentation VTE Present on Admission: Yes VTE Mechan Device Prophylaxis: SCD's Procedures Digestive 40xxx-49xxx: 71477 Lap part colectomy w/stoma
--- NOTE | 2021-06-06 13:49 | PCM.PN.BLA ---
Progress Note Patient was seen and examined during afternoon rounds. Both her and eldest daughter at bedside. She reports that overall she is feeling well. She is just beginning to thaw as she states she was quite cold after the operation. She denies any significant abdominal discomfort. She denies an appetite at this time. She has had a few bites of Jell-O without any subsequent nausea or vomiting. Patient's abdomen appears appropriate with dressings intact with no drainage. Ostomy appliance is in place but there is no output as of yet. Patient's abdomen is soft and nondistended to palpation. Plan is to resume most home medications and antibiotics. We will hold on restarting anticoagulation until tomorrow at the earliest. Will obtain a.m. labs first. Patient okay to begin clear liquid diet (without carbonation) and Ensure clears as she is feeling up to it.
[2021-06-06] MEDS: Ensure Clear 120 ML Liquid PO ×2 (13:57→17:27)
[2021-06-06] MEDS: Metoprolol Tartrate 50 MG Tablet PO ×3 (13:58→22:16)
[2021-06-06] MEDS: Linezolid 600 MG Tablet PO ×2 (13:58→21:56)
--- NOTE | 2021-06-06 15:57 | NURSING ---
wound photo: sacrum
[2021-06-06] MEDS: Juven (unflavored) Packet 1 PACKET PO (17:27)
[2021-06-06] MEDS: Gabapentin 300 MG Capsule PO (17:27)
[2021-06-06] MEDS: Atorvastatin Calcium 40 MG Tablet PO (21:56)
[2021-06-06] MEDS: MELATONIN 3 MG TABLET PO (21:56)
[2021-06-06] MEDS: Acetaminophen 500 MG Tablet 1000 MG PO (22:15)
[2021-06-07] VITALS (16 sets, daily range): BP systolic 133–154; BP diastolic 56–72; PULSE 71–100; RESP 16–18; TEMP 36.5–36.8; O2SAT 95–99
[2021-06-07] MEDS: Metoprolol Tartrate 50 MG Tablet PO ×4 (05:31→22:49)
[2021-06-07] MEDS: Lactated Ringers 1,000 ML 100 ML IV (05:34)
[2021-06-07 06:16] LABS: Hemoglobin 9.2 g/dL (12.0-15.0); Mean Corp Hgb Conc 29.7 g/dL (32-36); Mean Corpuscular Hgb 24.5 pg (27.0-32.0); Mean Corpuscular Volume 82.4 fL (81-99); Mean Platelet Vol. 9.1 fl (6.2-12.0); POSITIVE COUNT YES; POSITIVE DIFFERENTIAL YES; POSITIVE MORPHOLOGY YES; Platelet Count 221 K/mm3 (150-450); RBC Distribution Width CV 19.9 % (11.6-14.6); RBC Distribution Width SD 52.5 fl (35.1-43.9); Red Blood Count 3.76 M/mm3 (4.2-5.4); White Blood Count 10.6 K/mm3 (4.4-11.0)
[2021-06-07 06:23] LABS: Differential Indicated MANUAL DIFF
[2021-06-07 06:39] LABS: Anion Gap 6 (5-15); BUN 10 mg/dL (7-18); BUN/Creat Ratio 22.9 RATIO (10-20); Calcium,Total 8.4 mg/dL (8.5-10.1); Chloride 108 mmol/L (98-107); Creatinine, Serum 0.44 mg/dL (0.55-1.02); EST Glomerular Filtration Rate 149 mL/min (>60); Est Glom Filt Rate - Afr Amer 180 mL/min (>60); Estimated Creatinine Clearance 41.33 ml/min; Glucose 110 mg/dL (74-106); Magnesium 1.7 mg/dL (1.6-2.6); Phosphorus 3.2 mg/dL (2.5-4.9); Potassium 3.5 mmol/L (3.5-5.1); Sodium Level 141 mmol/L (136-145)
[2021-06-07 06:47] LABS: Lymphocyte 7 % (19-41); Metamyelocyte 5 % (0-1); Monocyte 1 % (0-10); Neutrophil-Band 8 % (0-5); Neutrophil-Segmented 79 % (47-70); Total Cells Counted 100 (MANUAL DIFF)
[2021-06-07 06:49] LABS: Absolute Neutrophil Count 9.8 X10^3/uL (2.0-7.7)
[2021-06-07 06:50] LABS: Absolute Lymphocyte Count 0.35 X10^3/uL (0.83-4.51); Lymphocyte # 0.35 X10^3/ul (0.83-4.51)
[2021-06-07 06:51] LABS: Platelet Estimate ADEQUATE (ADEQ); Red Cell Morphology NORM C+C NORMAL (NORM C&C)
--- NOTE | 2021-06-07 07:23 | PCS.PANDOC ---
PANDEMIC DOCUMENTATION INITIATED: Date: 06/05/2021 Time: 190
--- NOTE | 2021-06-07 08:22 | PN.SURG_ITS ---
Subjective Subjective Patient seen and examined during AM rounds. She reports that she had a decent night overnight. She did have some difficulty falling asleep, however, she denies any abdominal discomfort. She states she tried her clear liquid diet yesterday and there is no resultant nausea or vomiting. She is interested in a diet advancement today if possible. She has been working with her incentive spirometer and demonstrates a vital capacity of over 1500 mL at the time of this history. Objective Data Objective Data Vital Signs: Vital Signs Temp Pulse Resp BP Pulse Ox 98.1 F 90 16 154/63 H 98 06/07/21 05:46 06/07/21 05:46 06/07/21 05:46 06/07/21 05:46 06/07/21 05:46 Oxygen Flow Rate (L/min) 2 Oxygen Delivery Method Nasal Cannula Weight: 185 lb 15.993 oz Body Mass Index (BMI) 30.9 Intake & Output: Intake and Output for Last 24 Hours 06/05/21 06/06/21 06/07/21 23:59 23:59 23:59 Intake Total 2081.67 / 2081.67 1071.67 / 1071.67 Output Total 1250 / 1250 1550 / 1550 Balance 831.67 / 831.67 -478.33 / -478.33 Medical Nutrition Assessment Dietitian: Malnutrition Criteria Met Start: 06/06/21 14:49 Freq: Status: Active Protocol: Document 06/06/21 14:49 [facility] (Rec: 06/06/21 14:49 [id number]) Nutrition Malnutrition Evidence of Malnutrition Exists Yes Malnutrition (moderate): Chronic Evidenced By Suboptimal Energy Intake ( Moderate),Weight Loss ( Moderate) Clinical Problem Chronic Disease or Condition Related Malnutrition Etiology moderate, chronic malnutrition r/t inadequate energy intake w/ increased energy needs d/t cancer, wound Signs/Symptoms as evidenced by unitentional wt loss of 16.5#/8.5% x 2 months (February 2021-April 2021); estimated PO intake meeting < 75% of estimated nutritional needs x 3 months; reported chronically poor appetite/ intake Status Active Problem Recommendation Dietitian Recommendations/Changes advance diet as tolerated to transitional; recommend Ensure Enlive 120mL 4x/day when PO diet is advanced beyond clear liquids. Shaan BID for wound healing. Lab / Micro Data Result Diagrams: 06/07/21 05:54 06/07/21 05:54 Labs: Laboratory Results - last 24 hr 06/07/21 05:54: WBC 10.6, RBC 3.76 L, Hgb 9.2 L, Hct 31.0 L, MCV 82.4, MCH 24.5 L, MCHC 29.7 L, RDW Std Deviation 52.5 H, RDW Coeff of [place] 19.9 H, Plt Count 221, MPV 9.1, Neut % (Auto) Not Reportable, Absolute Neuts (auto) 9.8 H, Absolute Lymphs (auto) 0.35 L, Total Counted 100, Neutrophils % (Manual) 79 H, Band Neutrophils % 8 H, Lymphocytes % (Manual) 7 L, Monocytes % (Manual) 1, Metamyelocytes % 5 H, Diff Path Review February, Platelet Estimate ADEQUATE, RBC Morphology NORM C+C 06/07/21 05:54: Sodium 141, Potassium 3.5, Chloride 108 H, Carbon Dioxide 27.0, Anion Gap 6, BUN 10, Creatinine 0.44 L, Estim Creat Clear Calc 41.33, Est GFR (MDRD) Af Amer 180, Est GFR (MDRD) Non-Af 149, BUN/Creatinine Ratio 22.9 H, Glucose 110 H, Calcium 8.4 L, Phosphorus 3.2, Magnesium 1.7 Physical Exam Narrative Patient appears relieved and optimistic this morning Const oriented x3 and no apparent distress GI GI Narrative: Patient's port sites and left upper quadrant Veress entry site remain covered with clean operative dressings. Patient's left lower quadrant ostomy shows gas in the appliance in the mucosa slightly edematous but pink and well perfused. Patient's abdomen is soft and nondistended/nontender Assessment & Plan Assessment/Plan (1) Status post laparoscopic-assisted sigmoidectomy: PLAN: Neuro: As needed Tylenol and hydromorphone for breakthrough Pulm/CV: Encourage deep breathing and use of incentive spirometer. Continue telemetry given patient's history of atrial fibrillation. Continue home medications. FEN/GI: We will replace magnesium and potassium via IV piggyback today. Advance to full liquid diet.. Continue to limit carbonation. Continue to await return of bowel function. Heme/ID: Hemoglobin stable from preoperatively. Continue IV antibiotic therapy given patient's prior cultures and finding of sacral osteomyelitis. We will hav e to determine complete duration of antibiotic therapy and what the transition plan will be once patient no longer requiring hospital services. Endo: No current issues Proph: Resume Lovenox therapy 40 mg subcu daily (anticipate transitioning back to patient's home Eliquis prescription in 48 hours postop) Dispo: Continue inpatient care (2) Pressure ulcer of sacral region, stage 4: PLAN: ?Patient currently being seen by wound and ostomy nurse, appreciate this assistance ?We will have to determine patient's antibiotic therapy duration Charges/Coding Visit Charges Inpatient E&M: 41076 Subs Hosp L3
[2021-06-07] MEDS: Aspirin 81 MG TAB.CHEW PO (08:26)
[2021-06-07] MEDS: Amiodarone 200 MG Tablet 400 MG PO (08:26)
[2021-06-07] MEDS: Lisinopril 5 MG Tablet PO (08:26)
[2021-06-07] MEDS: Gabapentin 300 MG Capsule PO ×3 (08:26→17:46)
[2021-06-07] MEDS: Multivitamins,Therapeutic Tablet 1 TABLET PO (08:26)
[2021-06-07] MEDS: Linezolid 600 MG Tablet PO ×2 (08:26→22:44)
[2021-06-07] MEDS: 0.9 % NaCl (Sterile) Posiflush 10 mL IV (08:32)
[2021-06-07] MEDS: Enoxaparin 40 MG/0.4 ML Syringe SC (10:25)
[2021-06-07] MEDS: Potassium Chloride 10mEq/100mL 10 MEQ/100 ML IV.SOLN. 100 MEQ IV BOLUS ×4 (10:26→14:35)
[2021-06-07] MEDS: Juven (unflavored) Packet 1 PACKET PO ×2 (10:26→17:46)
[2021-06-07 10:29] LABS: Pathologist Review Reviewed
--- NOTE | 2021-06-07 10:47 | CASEMGMT ---
JOON met w/pt in room, pt confirms will return to TCU at discharge. Jill in TCU had already said earlier today that pt can return when ready. NIC Vásquez
--- NOTE | 2021-06-07 11:13 | NURSING ---
0900: pt to radiation therapy
--- NOTE | 2021-06-07 14:07 | CHAPLAIN ---
Type of Pastoral Visit ___ Initial Visit _x__ Follow-up Visit ___ On-call Visit ___ General Patient Visit ___ Spiritual Assessment ___ Family Conference ___ Bereavement ___ Rapid Response ___ Code Blue ___ Other (describe below) Pastoral Care Referral From _x__ Patient ___ Family ___ Nurse ___ Physician ___ Saddle Cutter ___ Tool Designer Apprentice ___ Other (describe below) Sacrament/Intervention _x__ Active listening ___ Anointing ___ Jewish ___ Bereavement ___ Communion _x__ Latasha exploration ___ _x__ Life review _x__ Prayer ___ Reconciliation ___ Sacrament of Sick _x__ Supportive presence ___ Wedding ___ Other (describe below) Pastoral Comments
[2021-06-07] MEDS: Atorvastatin Calcium 40 MG Tablet PO (22:44)
[2021-06-07] MEDS: MELATONIN 3 MG TABLET PO (22:44)
[2021-06-07] MEDS: Acetaminophen 500 MG Tablet 1000 MG PO (22:45)
[2021-06-07] MEDS: DAKIN'S SOL HALF STRENGTH (=0.25%) 1 APPLIC TOPICAL (23:10)
[2021-06-08] VITALS (8 sets, daily range): BP systolic 126–172; BP diastolic 46–66; PULSE 67–91; RESP 16–18; TEMP 36.6–36.8; O2SAT 94–98
[2021-06-08] MEDS: Metoprolol Tartrate 50 MG Tablet PO ×2 (05:00→10:59)
--- NOTE | 2021-06-08 07:54 | NURSING ---
Was asked by nursing to assess stoma and change ostomy appliance d/t leaking. patient leaking from the lateral edge of the flange. nursing states the appliance was changed last evening as well. removed appliance. there was a moderate amount of unformed brown stool. stoma is beefy red and moist. is not well bedded. sits in a crease and at skin level. stoma measures approx 3/4 and is slightly oval in shape. peristomal skin is intact. cleansed skin with warm water. pat dry. placed small bead of paste at the lateral crease and applied a 2 piece flat Lejunior appliance with an Adapt oval convex barrier ring hoping this will fill in the lateral crease. pt tolerated well. will continue with teaching. patient coughed and had a large amount of unformed brown stool from rectum. this is most likely residual stool and assured patient that this is normal and will stop after the residual stool is removed. did explain to patient that she will still have some mucous from the anal opening as well. will continue ostomy education with patient and family.
[2021-06-08] MEDS: Aspirin 81 MG TAB.CHEW PO (08:54)
[2021-06-08] MEDS: Enoxaparin 40 MG/0.4 ML Syringe SC (08:54)
[2021-06-08] MEDS: Multivitamins,Therapeutic Tablet 1 TABLET PO (08:54)
[2021-06-08] MEDS: Gabapentin 300 MG Capsule PO ×2 (08:55→11:02)
[2021-06-08] MEDS: Lisinopril 5 MG Tablet PO (08:55)
[2021-06-08] MEDS: Linezolid 600 MG Tablet PO (08:55)
[2021-06-08] MEDS: DAKIN'S SOL HALF STRENGTH (=0.25%) 1 APPLIC TOPICAL (08:55)
[2021-06-08] MEDS: Amiodarone 200 MG Tablet 400 MG PO (08:55)
[2021-06-08] MEDS: 0.9 % NaCl (Sterile) Posiflush 10 mL IV (08:56)
--- NOTE | 2021-06-08 09:04 | NURSING ---
to radiation therapy
--- NOTE | 2021-06-08 09:12 | CASEMGMT ---
Social Work Note SW spoke with Physician, pt may discharge back to TCU today/tomorrow. JOON placed a call to Jill with TCU and updated her. Plan: Return to TCU when medically cleared Sandra Persaud MSW, AURICULAR ACUPUNCTURIST
--- NOTE | 2021-06-08 09:35 | PCM.PN.SRG ---
Subjective Subjective Patient seen and examined this morning during AM rounds. She reports no acute events overnight. She has been asking nursing for her regular diet. She states that she is now on her third ostomy appliance change that she is experiencing some leakage of fecal material around the bag. This has caused her some mild distress that she does not want to leak during her radiation treatments this morning. She has no abdominal tenderness. Objective Data Objective Data Vital Signs: Vital Signs Temp Pulse Resp BP Pulse Ox 98.0 F 72 18 172/66 H 96 06/08/21 08:46 06/08/21 08:46 06/08/21 08:46 06/08/21 08:46 06/08/21 08:46 Oxygen Flow Rate (L/min) 2 Oxygen Delivery Method Room Air Weight: 185 lb 15.993 oz Body Mass Index (BMI) 30.9 Intake & Output: Intake and Output for Last 24 Hours 06/06/21 06/07/21 06/08/21 23:59 23:59 23:59 Intake Total 2081.67 / 2081.67 2669.26 / 2669.26 1149.92 / 1149.92 Output Total 1250 / 1250 3600 / 3600 1300 / 1300 Balance 831.67 / 831.67 -930.74 / -930.74 -150.08 / -150.08 Medical Nutrition Assessment Dietitian: Malnutrition Criteria Met Start: 06/06/21 14:49 Freq: Status: Active Protocol: Document 06/06/21 14:49 AG (Rec: 06/06/21 14:49 AG [id number]) Nutrition Malnutrition Evidence of Malnutrition Exists Yes Malnutrition (moderate): Chronic Evidenced By Suboptimal Energy Intake ( Moderate),Weight Loss ( Moderate) Clinical Problem Chronic Disease or Condition Related Malnutrition Etiology moderate, chronic malnutrition r/t inadequate energy intake w/ increased energy needs d/t cancer, wound Signs/Symptoms as evidenced by unitentional wt loss of 16.5#/8.5% x 2 months (February 2021-April 2021); estimated PO intake meeting < 75% of estimated nutritional needs x 3 months; reported chronically poor appetite/ intake Status Active Problem Recommendation Dietitian Recommendations/Changes advance diet as tolerated to transitional; recommend Ensure Enlive 120mL 4x/day when PO diet is advanced beyond clear liquids. Shaan BID for wound healing. Lab / Micro Data Result Diagrams: 06/07/21 05:54 06/07/21 05:54 Labs: Laboratory Results - last 24 hr 06/07/21 05:54: Diff Path Review Reviewed Physical Exam Resp normal respiratory effort GI GI Narrative: Patient's right lower quadrant and left upper quadrant (Veress entry site) incisions are uncovered and are well-appearing beneath operative Steri-Strips. There is no periincisional erythema or induration. Patient's left lower quadrant colostomy is leaking at the lateral aspect of the ostomy appliance. There is rather thin ostomy output at this point. The ostomy appliance is changed with wound and ostomy and the stoma appears pink and viable but has sunken in slightly. A seal issue has arisen due to a slight dimpling of the skin laterally along the mucocutaneous junction. Assessment & Plan Assessment/Plan (1) Status post laparoscopic-assisted sigmoidectomy: PLAN: Patient recovering as expected postoperative day 2. Incisions look appropriate. Patient tolerating a diet and therefore will advance to an unrestricted regular diet. I have cautioned the patient against consuming high0-residue foods and given examples of these foods. Appreciate wound/ostomy nursing assistance with obtaining a seal on patient's new colostomy. If patient tolerates diet this morning I think she could be eligible for transfer to the TCU this afternoon versus tomorrow morning. (2) Pressure ulcer of sacral region, stage 4: PLAN: Wound/ostomy nursing anticipates possible return to negative pressure wound VAC therapy tomorrow. (3) Atrial fibrillation with rapid ventricular response: PLAN: Stop enoxaparin and resume Eliquis therapy.
--- NOTE | 2021-06-08 10:32 | NURSING ---
stoma photo: left lower abdomen
[2021-06-08] MEDS: Juven (unflavored) Packet 1 PACKET PO (10:59)
[2021-06-08] MEDS: APIXABAN 5 MG TABLET PO (11:02)
--- NOTE | 2021-06-08 13:11 | NURSING ---
Ostomy appliance has leaked 3 times so far on this shift. have tried using a convex barrier ring, an Adapt ring, and just a small dab of paste to the lateral crease. all still have leaked. the convex appliances are not flexible enough to fit well in the crease. with this appliance change, used a flat appliance with a thin Adapt ring making sure to mold it well in the lateral crease. peristomal skin remains intact at this time. pt tolerated well. will continue to follow.
--- NOTE | 2021-06-08 13:55 | NURSING ---
applied an ostomy belt . Dr Machado in to see patient again and plans to send patient back over to TCU. pt tolerated lunch well. will continue to monitor.
--- NOTE | 2021-06-08 14:18 | PCM.TXEXTCAR ---
Diet 06/08/21 09:15 Diet: Regular - General Type of Dietary Supplement:: Ensure Clear Is pt able to select menu?: Yes Diet Comments: No carbonation Routine Orders/Code Status Routine Lab Work: CBC (weekly per ID), BMP (weekly per ID) and - (ESR- weekly per ID) Wound(s) abdomen: Wound Type: Surgical Incision Dressing Change: leave steris intact sacral decub wound: Dressing Change: Wet to Dry Dressing (per wound/ostomy) left upper lateral thigh: Wound Type: healing blisters from VAC drape Dressing Change: Adaptic with dry dressing sacrum: Wound Type: Pressure Injury Dressing Change: Dakins moistened gauze Suggestions for Active Care Change Position every (hours): 3 Therapies Weight Bearing: paraplegia Physical Therapy: Eval and Treat Occupational Therapy: Eval and Treat Problem/Diagnosis (1) Status post laparoscopic-assisted sigmoidectomy: Status: Acute Comment: Patient recovering well. Having some ostomy seal issues which wound and ostomy are working through. Patient now tolerating a regular diet. Continue Steri's to surgical sites for another week (2) Pressure ulcer of sacral region, stage 4: Status: Acute Comment: And wet-to-dry dressings per wound and ostomy. Tentatively planning for application of negative pressure wound VAC therapy tomorrow 06/08/2021 (3) Atrial fibrillation with rapid ventricular response: Status: Acute Comment: Oumou resumed Allergies/Procedures Done in Hospital Allergies No Known Allergies Allergy (Verified 06/07/21 09:35) Type of Care/Length of Stay Estimated LOS: Convalescent Care Less Than 30 days Type of Care Needed: Skilled (TCU) Rehab Potential: Good Prognosis: Good Additional Orders/Day of Discharge Day of Discharge: 06/08/21 Dietary and Speech Recommendations Dietitian Recommendations/Changes: advance diet as tolerated to transitional; recommend Ensure Enlive 120mL 4x/day when PO diet is advanced beyond clear liquids. Shaan BID for wound healing. Discharge Plan Admission Admit Date/Time: 06/06/21 11:04 Primary Reason for Your Visit: Creation of diverting colostomy and postop recovery Attending Provider: Jose Machado Primary Care Provider: Modesto Fulton Instructions Patient Instructions: ED Chest Pain, Noncardiac Discharge Orders/Prescriptions Prescriptions: New sodium chloride 0.9 % (flush) [BD PosiFlush Normal Saline 0.9] Syringe 10 - 40 ml IV UD PRN (Reason: Open End PICC Flush) Qty: 300 RF: 0 sodium chloride 0.9 % (flush) [Normal Saline Flush] Syringe 10 - 40 ml IV UD PRN (Reason: Port access or dressing change) Qty: 300 RF: 0 heparin, porcine (PF) 10 unit/mL Syringe 50 unit IV UD PRN (Reason: PICC Line Heparin Flush) Qty: 60 RF: 0 Continued acetaminophen [Tylenol Extra Strength] 500 mg tablet 1,000 mg PO Q6H PRN (Reason: Pain) RF: 0 Eliquis 5 mg tablet 5 mg PO BID RF: 0 metoprolol succinate 50 mg tablet extended release 24 hr 50 mg PO Q6H RF: 0 lisinopril 5 mg tablet 5 mg PO DAILY RF: 0 atorvastatin 40 mg tablet 40 mg PO DAILY RF: 0 gabapentin 300 mg capsule 300 mg PO TID RF: 0 melatonin 3 mg capsule 3 mg PO HS RF: 0 multivitamin Tablet 1 tab PO DAILY RF: 0 amiodarone 200 mg Tablet 400 mg PO DAILY RF: 0 prochlorperazine maleate [Compazine] 10 mg Tablet 10 mg PO Q6H PRN (Reason: Nausea) RF: 0 aspirin 81 mg Tablet 81 mg PO DAILY RF: 0 linezolid [Zyvox] 600 mg tablet 600 mg PO Q12H RF: 0 meropenem 1 gram recon soln 1 g IV Q8 RF: 0 Shaan (with collagen) 7-7-1.5 gram powder in packet 1 packet PO BIDCM RF: 0 Changed polyethylene glycol 3350 [Miralax] 17 gram/dose powder 17 g PO DAILY PRN (Reason: Constipation) Qty: 0 RF: 0 Discontinued senna 8.6 mg capsule 8.6 mg PO BID RF: 0 bisacodyl [Dulcolax (bisacodyl)] 10 mg suppository 10 mg MD DAILY PRN (Reason: Constipation) RF: 0 Referrals / Follow Up: Modesto Fulton MD [Primary Care Provider] - Brice Maciel MD [STAFF PHYSICIAN] - Favian Nguyen MD [STAFF PHYSICIAN] - Disposition Disposition (needs filled in before D/C Order can be placed): [facility]
--- NOTE | 2021-06-08 14:48 | PCM.DC.SUM ---
Providers Date of Admission: 06/06/21 Primary Care Physician: Dr. Modesto Fulton MD Diagnosis Discharge Diagnosis (1) Status post laparoscopic-assisted sigmoidectomy: Status: Acute Code(s): Z90.49 - Acquired absence of other specified parts of digestive tract (2) Pressure ulcer of sacral region, stage 4: Status: Acute Code(s): L89.154 - Pressure ulcer of sacral region, stage 4 (3) Atrial fibrillation with rapid ventricular response: Status: Acute Code(s): I48.91 - Unspecified atrial fibrillation Medications at Discharge Home Medications acetaminophen 500 mg tablet 1,000 mg PO Q6H PRN tab 05/08/21 apixaban 5 mg tablet 5 mg PO BID 05/08/21 atorvastatin 40 mg tablet 40 mg PO DAILY 05/08/21 gabapentin 300 mg capsule 300 mg PO TID 05/08/21 lisinopril 5 mg tablet 5 mg PO DAILY 05/08/21 melatonin 3 mg capsule 3 mg PO HS 05/08/21 metoprolol succinate 50 mg tablet,extended release 24 hr 50 mg PO Q6H 05/08/21 amiodarone 400 mg PO DAILY 05/14/21 aspirin 81 mg PO DAILY 05/14/21 multivitamin 1 tab PO DAILY 05/14/21 prochlorperazine maleate [Compazine] 10 mg PO Q6H PRN 05/14/21 Shaan (with collagen) 1 packet PO BIDCM 05/19/21 linezolid [Zyvox] 600 mg PO Q12H 05/19/21 meropenem 1 g IV Q8 05/19/21 heparin, porcine (PF) 50 unit IV UD PRN #60 ml 06/08/21 polyethylene glycol 3350 [Miralax] 17 g PO DAILY PRN #0 g 06/08/21 sodium chloride 0.9 % (flush) [BD PosiFlush Normal Saline 0.9] 10 - 40 ml IV UD PRN #300 ml 06/08/21 sodium chloride 0.9 % (flush) [Normal Saline Flush] 10 - 40 ml IV UD PRN #300 ml 06/08/21 Hospital Course Operations - (Laparoscopic sigmoidectomy for fecal diversion) Summary of Care Provided Hospital Course: On 06/06/2021 patient underwent laparoscopic sigmoidectomy with creation of end colostomy for fecal diversion. She was admitted to the hospital thereafter for postoperative care. Immediately she was begun on a clear liquid diet which she tolerated. Gradually her diet was advanced over the subsequent postoperative days such that she is now tolerating a regular diet on postoperative day two. She experienced return of bowel function on postoperative day one and a more significant degree today on postoperative day two. Aside from some issues with getting the ostomy appliance to seal in the lateral aspect of the stoma, Mrs. Enriquez has had an unremarkable postoperative recovery. We will now plan to transition back to the TCU for ongoing antibiotic infusions (due to be completed June 26 per last ID note), completion of her radiation therapy, and to partake in rehab as she is slowly regaining some function of her lower extremities. Wound and ostomy nursing saw Mrs. Enriquez throughout her inpatient stay and plans to be continue these visits during her time in TCU. They anticipate returning to negative pressure wound VAC therapy on her sacral wound 06/09/2021. Medical Records Data Medical Nutrition Assessment Dietitian: Malnutrition Criteria Met Start: 06/06/21 14:49 Freq: Status: Active Protocol: Document 06/06/21 14:49 (Rec: 06/06/21 14:49 AG [id number]) Nutrition Malnutrition Evidence of Malnutrition Exists Yes Malnutrition (moderate): Chronic Evidenced By Suboptimal Energy Intake ( Moderate),Weight Loss ( Moderate) Clinical Problem Chronic Disease or Condition Related Malnutrition Etiology moderate, chronic malnutrition r/t inadequate energy intake w/ increased energy needs d/t cancer, wound Signs/Symptoms as evidenced by unitentional wt loss of 16.5#/8.5% x 2 months (February 2021-April 2021); estimated PO intake meeting < 75% of estimated nutritional needs x 3 months; reported chronically poor appetite/ intake Status Active Problem Recommendation Dietitian Recommendations/Changes advance diet as tolerated to transitional; recommend Ensure Enlive 120mL 4x/day when PO diet is advanced beyond clear liquids. Shaan BID for wound healing. Weight / BMI Weight Weight: 185 lb 15.993 oz Body Mass Index (BMI) 30.9 ABG / Lab / Microbiology Data Result Diagrams: 06/07/21 05:54 06/07/21 05:54 Meaningful Use Info Meaningful Use Diagnoses (Choose all that apply): None applicable Discharge Plan Admission Admit Date/Time: 06/06/21 11:04 Primary Reason for Your Visit: Creation of diverting colostomy and postop recovery Attending Provider: Jose Machado Primary Care Provider: Modesto Fulton Instructions Patient Instructions: ED Chest Pain, Noncardiac Discharge Orders/Prescriptions Prescriptions: New sodium chloride 0.9 % (flush) [BD PosiFlush Normal Saline 0.9] Syringe 10 - 40 ml IV UD PRN (Reason: Open End PICC Flush) Qty: 300 RF: 0 sodium chloride 0.9 % (flush) [Normal Saline Flush] Syringe 10 - 40 ml IV UD PRN (Reason: Port access or dressing change) Qty: 300 RF: 0 heparin, porcine (PF) 10 unit/mL Syringe 50 unit IV UD PRN (Reason: PICC Line Heparin Flush) Qty: 60 RF: 0 Continued acetaminophen [Tylenol Extra Strength] 500 mg tablet 1,000 mg PO Q6H PRN (Reason: Pain) RF: 0 Eliquis 5 mg tablet 5 mg PO BID RF: 0 metoprolol succinate 50 mg tablet extended release 24 hr 50 mg PO Q6H RF: 0 lisinopril 5 mg tablet 5 mg PO DAILY RF: 0 atorvastatin 40 mg tablet 40 mg PO DAILY RF: 0 gabapentin 300 mg capsule 300 mg PO TID RF: 0 melatonin 3 mg capsule 3 mg PO HS RF: 0 multivitamin Tablet 1 tab PO DAILY RF: 0 amiodarone 200 mg Tablet 400 mg PO DAILY RF: 0 prochlorperazine maleate [Compazine] 10 mg Tablet 10 mg PO Q6H PRN (Reason: Nausea) RF: 0 aspirin 81 mg Tablet 81 mg PO DAILY RF: 0 linezolid [Zyvox] 600 mg tablet 600 mg PO Q12H RF: 0 meropenem 1 gram recon soln 1 g IV Q8 RF: 0 Shaan (with collagen) 7-7-1.5 gram powder in packet 1 packet PO BIDCM RF: 0 Changed polyethylene glycol 3350 [Miralax] 17 gram/dose powder 17 g PO DAILY PRN (Reason: Constipation) Qty: 0 RF: 0 Discontinued senna 8.6 mg capsule 8.6 mg PO BID RF: 0 bisacodyl [Dulcolax (bisacodyl)] 10 mg suppository 10 mg RI DAILY PRN (Reason: Constipation) RF: 0 Referrals / Follow Up: Brice Maciel MD [STAFF PHYSICIAN] - Favian Nguyen MD [STAFF PHYSICIAN] - Modesto Fulton MD [Primary Care Provider] - Disposition Disposition (needs filled in before D/C Order can be placed): [facility] Charges/Coding Visit Charges Inpatient E&M: 35087 Disch Hosp
--- NOTE | 2021-06-08 15:00 | CASEMGMT ---
Social Work Note Pt is discharging to TCU today. SW placed a call to Jill with TCU and updated her. Plan: TCU today Sandra Persaud BOOKY, TEST ARCHITECT
== END 2021-06-08 15:35 | disposition skilled nursing facility (03) | DRG 982 ==
LOC: MS3 06-07 09:17
PROVIDERS: Admitting Provider Surgery; PCP Family Medicine; Referring Provider Surgery; Visit Provider Surgery
PROC: 0DTN0ZZ Resection of Sigmoid Colon, Open Approach (ICD-10-PCS; CPT 44204; principal; 2021-06-06 07:05)
DX: L89.154 Pressure ulcer of sacral region, stage 4 (principal); G82.20 Paraplegia, unspecified; C83.30 Diffuse large B-cell lymphoma, unspecified site; E44.0 Moderate protein-calorie malnutrition; I48.91 Unspecified atrial fibrillation; Z68.30 Body mass index [BMI] 30.0-30.9, adult; I25.2 Old myocardial infarction; Z79.899 Other long term (current) drug therapy; Z79.01 Long term (current) use of anticoagulants; Z79.82 Long term (current) use of aspirin
CPT/HCPCS: 36415; 80048; 83735; 84100; 85025; 88305; 97802; 99251; J2185; J7050; J7120; G0463; J2405

== ENCOUNTER 2021-06-08 15:55 | Inpatient (IN) | payer SELFPAY, OTHER ==
[2021-06-08 16:03] VITALS: BMI 31.8
[2021-06-08 16:26] VITALS: BMI 30.9
[2021-06-08 16:37] VITALS: BP 142/65; PULSE 76; RESP 18; TEMP 36.8; O2SAT 96
[2021-06-08 17:08] VITALS: PULSE 76
[2021-06-08] MEDS: Metoprolol Tartrate 50 MG Tablet PO (17:08)
[2021-06-08] MEDS: APIXABAN 5 MG TABLET PO (17:08)
[2021-06-08] MEDS: Linezolid 600 MG Tablet PO (17:08)
--- NOTE | 2021-06-08 19:55 | HP.PCM_ITS ---
HPI - General General Date of Admission: 06/08/21 HPI Narrative 06/06/2021 CHRISTOPHER CORONEL, is a 75 Female TCU resident with non healing stage 4 sacral pressure ulcer. 06/06/2021 Dr. Machado performed laparoscopic sigmoid colectomy with diverting colostomy. 06/07/2021 Pain controlled with Tylenol, Hydromorphone. Diet advanced to full liquid. IV antibiotics for sacral osteomyelitis. 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 Wound VAC to sacral pressure ulcer. Linezolid/Unasyn for 6 week course for sacral osteomyelitis thru 06/26/2021. 06/08/2021 Admit to TCU with debility, here for rehabilitation, strengthening, wound care, intravenous antibiotics. [facility] Medical History (Updated 06/08/21 @ 20:[address] Jarod Menendez MD) Afib Chronic indwelling Cyr catheter Colostomy in place Decubitus ulcer Hypertension Large cell lymphoma Myocardial infarct Paraplegia Pressure sore Home Medications acetaminophen 500 mg tablet 1,000 mg PO Q6H PRN tab 05/08/21 [History Last Taken Unknown] apixaban 5 mg tablet 5 mg PO BID 05/08/21 [History Last Taken Unknown] atorvastatin 40 mg tablet 40 mg PO DAILY 05/08/21 [History Last Taken Unknown] gabapentin 300 mg capsule 300 mg PO TID 05/08/21 [History Last Taken 06/06/21] lisinopril 5 mg tablet 5 mg PO DAILY 05/08/21 [History Last Taken 06/06/21] melatonin 3 mg capsule 3 mg PO HS 05/08/21 [History Last Taken Unknown] metoprolol succinate 50 mg tablet,extended release 24 hr 50 mg PO Q6H 05/08/21 [History Last Taken 06/06/21] amiodarone 400 mg PO DAILY 05/14/21 [History Last Taken Unknown] aspirin 81 mg PO DAILY 05/14/21 [History Last Taken Unknown] multivitamin 1 tab PO DAILY 05/14/21 [History Last Taken Unknown] prochlorperazine maleate [Compazine] 10 mg PO Q6H PRN 05/14/21 [History Last Taken Unknown] Shaan (with collagen) 1 packet PO BIDCM 05/19/21 [History Last Taken Unknown] linezolid [Zyvox] 600 mg PO Q12H 05/19/21 [History Last Taken Unknown] meropenem 1 g IV Q8 05/19/21 [History Last Taken Unknown] heparin, porcine (PF) 50 unit IV UD PRN #60 ml 06/08/21 [Rx Last Taken Unknown] polyethylene glycol 3350 [Miralax] 17 g PO DAILY PRN #0 g 06/08/21 [Rx Last Taken Unknown] sodium chloride 0.9 % (flush) [BD PosiFlush Normal Saline 0.9] 10 - 40 ml IV UD PRN #300 ml 06/08/21 [Rx Last Taken Unknown] sodium chloride 0.9 % (flush) [Normal Saline Flush] 10 - 40 ml IV UD PRN #300 ml 06/08/21 [Rx Last Taken Unknown] Allergy/AdvReac Type Severity Reaction Status Date / Time No Known Allergies Allergy Verified 06/07/21 09:35 Family History Father CHF (congestive heart failure) Mother CAD (coronary artery disease) Alzheimer disease Surgical History Hx of CABG S/P cholecystectomy Social History household members: family housing: house number of children: 5 Smoking Status: Never smoker alcohol intake: never substance use type: does not use chris/temple: [employer] ROS Constitutional Constitutional: Denies chills, fever(s) or weight gain ENT HEENT: Denies headache(s), nasal congestion or nasal discharge Cardiovascular Cardiovascular: Denies chest pain or palpitations Respiratory/Chest Respiratory/Chest: Denies cough, excessive phlegm production or shortness of breath with exertion Gastrointestinal Gastrointestinal: Denies abdominal pain, nausea or vomiting Genitourinary Genitourinary: Denies dysuria Musculoskeletal Musculoskeletal: Denies joint pain or joint swelling Integumentary Integumentary: Denies rash or wounds Neurologic Neurologic: Denies focal weakness, numbness or tingling Psychiatric Psychiatric: Reports auditory hallucinations; Denies anxiety, depression, homicidal ideation or suicidal ideation Vital Signs Vital Signs Vital Signs: 06/08/21 16:37 06/08/21 17:08 Temperature 98.3 F Temperature Source Temporal Pulse Rate 76 76 Respiratory Rate 18 Blood Pressure 142/65 H Blood Pressure Mean 90 Blood Pressure Source Monitor Blood Pressure Position Sitting Blood Pressure Location Left Arm Pulse Ox 96 Oxygen Delivery Method Room Air Weight Weight: 84.36 kg Body Mass Index (BMI) 30.9 Physical Exam Const alert and oriented x3 General Appearance: cooperative HEENT normocephalic Eyes PERRL and EOMs intact bilaterally Neck supple, no JVD and no carotid bruits Resp normal respiratory effort, normal air movement and clear to auscultation bilaterally Cardio regular rate and regular rhythm GI normal to inspection, nondistended, normoactive bowel sounds, non-tender and non-distended GI Narrative: Colostomy, indwelling cyr catheter. Extremity normal capillary refill General Extremity: Negative for edema Skin no rashes or lesions noted Skin Narrative: Sacral pressure ulcer per wound nurse. General Skin Exam: no breakdown Psych affect normal Appearance: appropriate Assessment & Plan Assessment/Plan (1) Debility: (2) Pressure ulcer of sacral region, stage 4: (3) Osteomyelitis of pelvis: (4) Atrial fibrillation with rapid ventricular response: (5) Epidural mass: (6) Paraplegia: (7) Diffuse large B cell lymphoma: QUALIFIERS: Lymphoma site: unspecified region Qualified Code(s): C83.30 - Diffuse large B-cell lymphoma, unspecified site (8) Coronary artery disease: (9) Nausea: PLAN: 75 year old female with below past medical history significant for paraplegia, infected stage 4 sacral pressure ulcer, hospitalized for diverting colostomy 06/06/[address] Machado, admitted to TCU with debility, here for rehabilitation, strengthening, wound care, intravenous antibiotics, prior to discharge home with family. * Debility - PT/OT. * Pain - Tylenol 1000mg Q6H prn pain (1-10). * Bowel - Miralax 17gm daily PRN. * Adult immunization - Administer prevnar 13, pneumovax 23, fluzone, covid19 vaccine as appropriate. * DVT prophylaxis - Not necessary, on Eliquis. * Atrial fibrillation - Metoprolol 50mg Q6H, Eliquis 5mg twice daily. * Hyperlipidemia - Atorvastatin 40mg QHS. * Neuropathic pain - Gabapentin 300mg tid. * Coronary artery disease - Metoprolol 50mg Q6H, Lisinopril 5mg daily, Eliquis 5MG twice daily, stop Aspirin 81mg daily. * Insomnia - Melatonin 3mg qhs. * Nutrition - MVI daily, Shaan 1 packet twice daily. * Nausea - Compazine 10mg Q6H PRN. * Stage 4 sacral pressure ulcer - Wound nurse. * Sacral osteomyelitis - Linezolid 600mg po Q12H thru 06/26/2021, Meropenem 1gm IV Q8H thru 06/26/2021. * Diffuse large B cell lymphoma - Finish radiation treatments.
[2021-06-08 20:00] VITALS: RESP 16
[2021-06-08] MEDS: Gabapentin 300 MG Capsule PO (21:45)
[2021-06-08] MEDS: MELATONIN 3 MG TABLET PO (21:46)
[2021-06-08] MEDS: Acetaminophen 500 MG Tablet 1000 MG PO (21:49)
[2021-06-09] VITALS (7 sets, daily range): BP systolic 148–169; BP diastolic 60–78; PULSE 77–84; RESP 16–18; TEMP 36.6–37.2; O2SAT 96–99
[2021-06-09] MEDS: Metoprolol Tartrate 50 MG Tablet PO ×4 (00:01→16:15)
[2021-06-09 05:39] LABS: Hematocrit 26.8 % (37-47); Hemoglobin 8.3 g/dL (12.0-15.0); Mean Corpuscular Hgb 24.9 pg (27.0-32.0); Mean Corpuscular Volume 80.5 fL (81-99); Mean Platelet Vol. 9.6 fl (6.2-12.0); POSITIVE COUNT YES; POSITIVE DIFFERENTIAL YES; POSITIVE MORPHOLOGY YES; Platelet Count 194 K/mm3 (150-450); RBC Distribution Width CV 19.8 % (11.6-14.6); RBC Distribution Width SD 52.3 fl (35.1-43.9); Red Blood Count 3.33 M/mm3 (4.2-5.4); White Blood Count 3.8 K/mm3 (4.4-11.0)
[2021-06-09 06:09] LABS: Anion Gap 5 (5-15); BUN 13 mg/dL (7-18); BUN/Creat Ratio 66.7 RATIO (10-20); Chloride 107 mmol/L (98-107); EST Glomerular Filtration Rate 377 mL/min (>60); Est Glom Filt Rate - Afr Amer 456 mL/min (>60); Estimated Creatinine Clearance 41.33 ml/min; Glucose 93 mg/dL (74-106); Potassium 3.9 mmol/L (3.5-5.1); Sodium Level 140 mmol/L (136-145)
[2021-06-09 06:10] LABS: Differential Indicated MANUAL DIFF
[2021-06-09 06:11] LABS: Eosinophil 3 % (0-5); Lymphocyte 8 % (19-41); Metamyelocyte 1 % (0-1); Monocyte 8 % (0-10); Myelocyte 2 % (0-0); Neutrophil-Band 2 % (0-5); Neutrophil-Segmented 76 % (47-70); Total Cells Counted 100 (MANUAL DIFF)
[2021-06-09 06:13] LABS: Platelet Estimate ADEQUATE (ADEQ)
[2021-06-09 06:14] LABS: Anisocytosis 1+; Hypochromasia 1+; Microcytosis 1+; Schistocytes RARE
[2021-06-09 06:15] LABS: Absolute Lymphocyte Count 0.31 X10^3/uL (0.83-4.51); Lymphocyte # 0.31 X10^3/ul (0.83-4.51); Neutrophil # 2.99 X10^3/uL (2.7-7.7); Ovalocyte RARE
[2021-06-09] MEDS: APIXABAN 5 MG TABLET PO ×2 (06:28→16:15)
[2021-06-09] MEDS: Gabapentin 300 MG Capsule PO ×3 (06:29→22:09)
[2021-06-09] MEDS: Linezolid 600 MG Tablet PO ×2 (06:29→16:15)
[2021-06-09] MEDS: Lisinopril 5 MG Tablet PO (06:29)
--- NOTE | 2021-06-09 06:56 | NURSING ---
Flushed PICC this AM, red port slightly sluggish but flushes and gets blood return. Unable to flush purple port or get blood return. Antibiotic running through red port.
[2021-06-09] MEDS: Multivitamins,Therapeutic Tablet 1 TABLET PO (08:41)
--- NOTE | 2021-06-09 09:06 | PCM.PN.SRG ---
Subjective Subjective Patient was seen and examined during AM rounds. She was transferred to TCU yesterday following her inpatient discharge. She reports that she is doing well this morning. She has completed her breakfast and denies any nausea. She continues to have regular output from her colostomy. She is happy to report that she has had no further leakage following implementation of her ostomy belt. Objective Data Objective Data Vital Signs: Vital Signs Temp Pulse Resp BP Pulse Ox 98.3 F 81 16 156/73 H 96 06/08/21 16:37 06/09/21 06:29 06/08/21 20:00 06/09/21 06:27 06/08/21 16:37 Oxygen Delivery Method Room Air Weight: 185 lb 15.711 oz Body Mass Index (BMI) 30.9 Intake & Output: Intake and Output for Last 24 Hours 06/07/21 06/08/21 06/09/21 23:59 23:59 23:59 Intake Total 120 / 120 120 / 120 Output Total 225 / 225 2600 / 2600 Balance -105 / -105 -2480 / -2480 Lab / Micro Data Result Diagrams: 06/09/21 05:15 06/09/21 05:15 Labs: Laboratory Results - last 24 hr 06/09/21 05:15: WBC 3.8 L, RBC 3.33 L, Hgb 8.3 L, Hct 26.8 L, MCV 80.5 L, MCH 24.9 L, MCHC 31.0 L, RDW Std Deviation 52.3 H, RDW Coeff of Ivory 19.8 H, Plt Count 194, MPV 9.6, Neut % (Auto) Not Reportable, Absolute Neuts (auto) 3.0, Absolute Lymphs (auto) 0.31 L, Total Counted 100, Neutrophils % (Manual) 76 H, Band Neutrophils % 2, Lymphocytes % (Manual) 8 L, Monocytes % (Manual) 8, Eosinophils % (Manual) 3, Metamyelocytes % 1, Myelocytes % 2 H, Diff Path Review May foll, Platelet Estimate ADEQUATE, Hypochromasia 1+, Anisocytosis 1+, Microcytosis 1+, Ovalocytes RARE, Schistocytes RARE 06/09/21 05:15: Sodium 140, Potassium 3.9, Chloride 107, Carbon Dioxide 28.0, Anion Gap 5, BUN 13, Creatinine 0.20 L, Estim Creat Clear Calc 41.33, Est GFR (MDRD) Af Amer 456, Est GFR (MDRD) Non-Af 377, BUN/Creatinine Ratio 66.7 H, Glucose 93, Calcium 8.0 L Physical Exam Const oriented x3 and no apparent distress GI GI Narrative: Patient has had some sloughing of her epidermis rash in relation to the adhesive from the operative dressings, however there is no surrounding erythema or induration about her operative incisions which remain covered with operative Steri-Strips. Patient's left lower quadrant ostomy appears appropriate with healthy pink mucosa and the stool output is thickening in consistency. Otherwise the patient's abdomen is soft and nondistended/nontender to palpation Assessment & Plan Assessment/Plan (1) Status post laparoscopic-assisted sigmoidectomy: PLAN: ?Continue regular diet ?Continue Steri-Strips for another week on operative sites. Notify surgery of any port site concerns. ?Appreciate wound/ostomy nursing assistance with stoma. Charges/Coding Visit Charges Inpatient E&M: 28875 Subs Hosp L2
--- NOTE | 2021-06-09 11:27 | NURSING ---
Pt requesting Amiodarone no long on pt's DEC. Updated Dr. Menendez new order for 400mg Amiodarone Daily.
[2021-06-09] MEDS: Alteplase 2 MG/2 ML Vial IV (13:00)
[2021-06-09] MEDS: Amiodarone 200 MG Tablet 400 MG PO (13:15)
[2021-06-09] MEDS: 0.9 % NaCl (Sterile) Posiflush 10 mL IV ×2 (13:16→17:40)
[2021-06-09 14:07] LABS: Pathologist Review Reviewed
--- NOTE | 2021-06-09 14:42 | NURSING ---
Ostomy appliance remains intact. small amount of unformed brown stool noted in the appliance. pt will most likely need to use an ostomy belt with the appliance in order to help keep appliance pushed down around the stoma.
--- NOTE | 2021-06-09 14:44 | NURSING ---
wound photo: sacrum
--- NOTE | 2021-06-09 14:44 | PHA.CONS_ITS ---
Progress Note - Pharmacy Subjective: TCU ADMISSION Objective: Allergies No Known Allergies Allergy (Verified 06/07/21 09:35) Current Medications Generic Name Dose Route Start Last Admin Trade Name Freq PRN Reason Stop Dose Admin Acetaminophen 1,000 mg 06/08/21 20:09 06/08/21 21:49 Acetaminophen 500 Mg Tablet PO 1,000 mg Q6H PRN PRN Administration Pain Score 1-10 Amiodarone HCl 400 mg 06/09/21 11:30 06/09/21 13:15 Amiodarone 200 Mg Tablet PO 400 mg DAILY AMISH Administration Apixaban 5 mg 06/08/21 18:00 06/09/21 06:28 Apixaban 5 Mg Tablet PO 5 mg BID AMISH Administration Atorvastatin Calcium 40 mg 06/09/21 22:00 Atorvastatin Calcium 40 Mg Tablet PO QHS AMISH Gabapentin 300 mg 06/08/21 22:00 06/09/21 13:17 Gabapentin 300 Mg Capsule PO 300 mg TID AMISH Administration Heparin Sodium (Beef Lung) 50 units 06/08/21 16:19 Heparin Pf Lock 10 Units/Ml 50 Units/5 Ml Syringe IV UD PRN PICC Line Heparin Flush Heparin Sodium (Beef Lung) 50 units 06/08/21 21:40 Heparin Pf Lock 10 Units/Ml 50 Units/5 Ml Syringe IV UD PRN PICC Line Heparin Flush Heparin Sodium (Beef Lung) 50 units 06/09/21 07:50 Heparin Pf Lock 10 Units/Ml 50 Units/5 Ml Syringe IV UD PRN PICC Line Heparin Flush Meropenem 1 gm/ Sodium 120 mls @ 33 mls/hr 06/08/21 22:00 06/09/21 13:15 Chloride IV 06/26/21 20:11 33 mls/hr Q8 AMISH Administration Sodium Chloride 250 mls @ 15 mls/hr 06/08/21 21:40 06/08/21 21:49 IV 15 mls/hr .[id number] PRN Administration Saline Flush Sodium Chloride 250 mls @ 15 mls/hr 06/08/21 21:40 IV .[id number] PRN Additional IVPB Infusion Linezolid 600 mg 06/08/21 18:00 06/09/21 06:29 Linezolid 600 Mg Tablet PO 06/26/21 20:10 600 mg Q12 AMISH Administration Lisinopril 5 mg 06/09/21 06:00 06/09/21 06:29 Lisinopril 5 Mg Tablet PO 5 mg DAILY AMISH Administration Melatonin 3 mg 06/08/21 22:00 06/08/21 21:46 Melatonin 3 Mg Tablet PO 3 mg QHS AMISH Administration Metoprolol Tartrate 50 mg 06/08/21 18:00 06/09/21 10:43 Metoprolol Tartrate 50 Mg Tablet PO 50 mg Q6 AMISH Administration Multivitamins 1 tablet 06/09/21 08:00 06/09/21 08:41 Multivitamins,Therapeutic Tablet PO 1 tablet DAILYCM AMISH Administration Nutritional Formula 1 packet 06/08/21 17:00 06/09/21 10:43 Nutritional Supplement (Shaan) Packet PO 1 packet BIDCM AMISH Administration Polyethylene Glycol 17 gm 06/08/21 16:23 Polyethylene Glycol 3350 17 Gm Packet PO DAILY PRN Constipation Prochlorperazine Maleate 10 mg 06/08/21 16:23 Prochlorperazine 5 Mg Tablet PO Q6H PRN Nausea Sodium Chloride 10 - 40 ml 06/08/21 16:19 06/09/21 13:16 0.9 % Nacl (Sterile) Posiflush 10 Ml IV 10 ml UD PRN Administration Port access or dressing change Sodium Chloride 10 - 40 ml 06/08/21 16:19 0.9% Saline Lock 10 Ml Syringe IV UD PRN Open End PICC Flush Sodium Chloride 10 - 40 ml 06/08/21 21:40 0.9% Saline Lock 10 Ml Syringe IV UD PRN Open End PICC Flush Sodium Chloride 10 - 40 ml 06/08/21 21:40 0.9 % Nacl (Sterile) Posiflush 10 Ml IV UD PRN Port access or dressing change Sodium Chloride 10 - 40 ml 06/09/21 07:50 0.9% Saline Lock 10 Ml Syringe IV UD PRN Open End PICC Flush Sodium Chloride 10 - 40 ml 06/09/21 07:50 0.9 % Nacl (Sterile) Posiflush 10 Ml IV UD PRN Port access or dressing change Tuberculin PPD 0.1 ml 06/16/21 10:00 Tuberculin,Purif.Prot.Deriv. 50 Tu/Ml Vial ID 06/16/21 10:01 X1 ONE Problem List (Last Updated 06/08/21 @ 19:[address] Jarod Menendez MD) Debility (Acute) Status post laparoscopic-assisted sigmoidectomy (Acute) Pressure ulcer of sacral region, stage 4 (Acute) Osteomyelitis of pelvis (Acute) Atrial fibrillation with rapid ventricular response (Acute) Epidural mass (Acute) Paraplegia (Acute) Diffuse large B cell lymphoma (Acute) Coronary artery disease (Acute) Nausea (Acute) Vital Signs Temp Pulse Resp BP Pulse Ox 97.8 F 77 18 169/78 H 96 06/09/21 10:42 06/09/21 10:43 06/09/21 10:42 06/09/21 10:43 06/09/21 10:42 Oxygen Delivery Method Room Air Weight: 84.36 kg Body Mass Index (BMI) 30.9 Sodium 140 mmol/L (136-145) 06/09/21 05:15 Potassium 3.9 mmol/L (3.5-5.1) 06/09/21 05:15 Chloride 107 mmol/L (98-107) 06/09/21 05:15 Carbon Dioxide 28.0 mmol/L (21.0-32.0) 06/09/21 05:15 Anion Gap 5 (5-15) 06/09/21 05:15 BUN 13 mg/dL (7-18) 06/09/21 05:15 Creatinine 0.20 mg/dL (0.55-1.02) L 06/09/21 05:15 Est GFR (MDRD) Af Amer 456 mL/min (>60) 06/09/21 05:15 Est GFR (MDRD) Non-Af 377 mL/min (>60) 06/09/21 05:15 BUN/Creatinine Ratio 66.7 RATIO (10-20) H 06/09/21 05:15 Glucose 93 mg/dL (74-106) 06/09/21 05:15 Assessment/Plan: 1. Pain:Tylenol 1000mg PO Q6h PRN Pain 1-10. Please continue to monitor for increased/decreased pain, PRN medication usage. 2. Sacral Osteomyelitis: Merrem 1g IV Q8h, Zyvoxx 600mg PO BID thru 06/26/21. Please continue to monitor for resolution of infection, renal function. 3. Atrial fibrillation/ HLD/CAD: Lopressor 50mg PO Q6h, Lisinopril 5mg PO Daily, Lipitor 40mg PO QHS, Eliquis 5mg PO BID, Amiodarone 400mg PO Daily. Please continue to monitor BP, pulse, electrolytes, S/S bleeding/bruising, renal f unction, lipid panel annually or sooner if clinically indicated. 4. Neuropathic pain: Gabapentin 300mg PO TID. Please continue to monitor renal function, medication effectiveness. 5. Nausea: Compazine 10mg PO Q6h PRN. Please continue to monitor PRN medication use, QTc interval given patient's cardiac history. 6. General Wellness: MVI 1 tab PO Daily. Please continue to monitor Psychotropic Medications: None Unnecessary Medications: None Bowel Regimen: Miralax 17g PO Daily PRN. Please continue to monitor for increased/decreased constipation and/or diarrhea. Date of Note:: 06/09/21
[2021-06-09] MEDS: Acetaminophen 500 MG Tablet 1000 MG PO (22:06)
[2021-06-09] MEDS: MELATONIN 3 MG TABLET PO (22:09)
[2021-06-09] MEDS: Atorvastatin Calcium 40 MG Tablet PO (22:09)
[2021-06-10 00:43] VITALS: BP 150/69; PULSE 97
[2021-06-10] MEDS: Metoprolol Tartrate 50 MG Tablet PO ×4 (00:43→17:02)
[2021-06-10] MEDS: Linezolid 600 MG Tablet PO ×2 (05:04→17:02)
[2021-06-10] MEDS: Gabapentin 300 MG Capsule PO ×3 (05:04→21:36)
[2021-06-10 05:05] VITALS: BP 148/67; PULSE 77
[2021-06-10] MEDS: Lisinopril 5 MG Tablet PO (05:05)
[2021-06-10] MEDS: 0.9 % NaCl (Sterile) Posiflush 10 mL IV ×2 (05:05→13:25)
[2021-06-10] MEDS: APIXABAN 5 MG TABLET PO ×2 (05:05→17:02)
[2021-06-10] MEDS: Amiodarone 200 MG Tablet 400 MG PO (05:05)
[2021-06-10] MEDS: Multivitamins,Therapeutic Tablet 1 TABLET PO (08:22)
[2021-06-10 12:11] VITALS: BP 123/62; PULSE 85
[2021-06-10 12:14] VITALS: PULSE 85
--- NOTE | 2021-06-10 13:24 | NURSING ---
r' in contact isolation this shift. all care provided in room.
[2021-06-10 16:00] VITALS: BP 133/70; PULSE 79; RESP 15; TEMP 36.7; O2SAT 94
[2021-06-10 17:02] VITALS: PULSE 79
[2021-06-10] MEDS: MELATONIN 3 MG TABLET PO (21:35)
[2021-06-10] MEDS: Atorvastatin Calcium 40 MG Tablet PO (21:36)
[2021-06-10] MEDS: Acetaminophen 500 MG Tablet 1000 MG PO (21:41)
[2021-06-11] VITALS (7 sets, daily range): BP systolic 126–148; BP diastolic 63–79; PULSE 83–101; RESP 12–17; TEMP 36.2; O2SAT 94
[2021-06-11] MEDS: Metoprolol Tartrate 50 MG Tablet PO ×5 (00:43→23:35)
[2021-06-11] MEDS: Linezolid 600 MG Tablet PO ×2 (05:30→17:00)
[2021-06-11] MEDS: Gabapentin 300 MG Capsule PO ×3 (05:30→23:35)
[2021-06-11] MEDS: Lisinopril 5 MG Tablet PO (05:30)
[2021-06-11] MEDS: APIXABAN 5 MG TABLET PO ×2 (05:30→17:00)
[2021-06-11] MEDS: Amiodarone 200 MG Tablet 400 MG PO (05:31)
[2021-06-11] MEDS: Multivitamins,Therapeutic Tablet 1 TABLET PO (08:29)
--- NOTE | 2021-06-11 10:48 | NURSING ---
R' REMAINS IN CONTACT ISOLATION. ALL CARE PROVIDED IN ROOM.
[2021-06-11] MEDS: 0.9 % NaCl (Sterile) Posiflush 10 mL IV (13:02)
[2021-06-11] MEDS: MELATONIN 3 MG TABLET PO (23:35)
[2021-06-11] MEDS: Atorvastatin Calcium 40 MG Tablet PO (23:36)
[2021-06-11] MEDS: Acetaminophen 500 MG Tablet 1000 MG PO (23:39)
[2021-06-12 06:21] VITALS: BP 134/68; PULSE 90; RESP 16; TEMP 36; O2SAT 96
[2021-06-12 06:24] VITALS: BP 134/68; PULSE 90
[2021-06-12] MEDS: Linezolid 600 MG Tablet PO ×2 (06:24→21:50)
[2021-06-12] MEDS: Metoprolol Tartrate 50 MG Tablet PO ×3 (06:24→21:50)
[2021-06-12] MEDS: Lisinopril 5 MG Tablet PO (06:24)
[2021-06-12] MEDS: APIXABAN 5 MG TABLET PO ×2 (06:24→21:50)
[2021-06-12] MEDS: Gabapentin 300 MG Capsule PO ×3 (06:25→21:48)
--- NOTE | 2021-06-12 07:10 | NURSING ---
Pt requests Amiodarone be administered w/ breakfast at 0800. Communication sent to pharmacy.
[2021-06-12] MEDS: Multivitamins,Therapeutic Tablet 1 TABLET PO (09:06)
[2021-06-12] MEDS: Amiodarone 200 MG Tablet 400 MG PO (09:07)
[2021-06-12 10:00] VITALS: RESP 18
[2021-06-12 12:32] VITALS: PULSE 95
[2021-06-12] MEDS: 0.9 % NaCl (Sterile) Posiflush 10 mL IV ×3 (13:37→21:44)
--- NOTE | 2021-06-12 14:42 | NURSING ---
wound photo: sacrum
--- NOTE | 2021-06-12 14:43 | NURSING ---
stoma photo: left lower abdomen
--- NOTE | 2021-06-12 14:57 | NURSING ---
Removed ostomy appliance. appliance had stayed in place for 3 days. no leaks noted through the weekend. there is some mild redness noted to the peristomal skin. stoma remains beefy red and moist. sits just slightly above the skin level. cleansed skin with warm water. pat dry. lightly dusted peristomal skin with stoma powder. removed excess powder. placed a new 2 piece flat [place] appliance with a small amount of paste and an ostomy belt. pt tolerated well. see stoma photo. pt's and daughter observed wound VAC and ostomy change.
[2021-06-12 15:00] VITALS: BP 144/74; PULSE 82; RESP 16; TEMP 37.2; O2SAT 98
[2021-06-12] MEDS: proCHLORPERazine 5 MG Tablet 10 MG PO (17:27)
[2021-06-12] MEDS: Ondansetron 4 MG/2 ML Vial IV (18:53)
[2021-06-12] MEDS: Acetaminophen 500 MG Tablet 1000 MG PO (21:48)
[2021-06-12] MEDS: MELATONIN 3 MG TABLET PO (21:48)
[2021-06-12] MEDS: Atorvastatin Calcium 40 MG Tablet PO (21:48)
[2021-06-12 21:50] VITALS: BP 134/71; PULSE 103
[2021-06-13 02:04] VITALS: BP 110/55; PULSE 74
[2021-06-13] MEDS: Metoprolol Tartrate 50 MG Tablet PO ×3 (02:04→17:08)
[2021-06-13] MEDS: 0.9 % NaCl (Sterile) Posiflush 10 mL IV ×2 (06:37→14:09)
[2021-06-13 06:38] VITALS: BP 114/59; PULSE 73
[2021-06-13] MEDS: Linezolid 600 MG Tablet PO ×2 (06:38→17:09)
[2021-06-13] MEDS: APIXABAN 5 MG TABLET PO ×2 (06:38→17:08)
[2021-06-13] MEDS: Gabapentin 300 MG Capsule PO ×3 (06:38→21:59)
[2021-06-13] MEDS: Lisinopril 5 MG Tablet PO (06:38)
[2021-06-13] MEDS: Multivitamins,Therapeutic Tablet 1 TABLET PO (08:56)
[2021-06-13] MEDS: Amiodarone 200 MG Tablet 400 MG PO (08:56)
--- NOTE | 2021-06-13 11:07 | PN_ITS ---
Progress Note Patient was visited during AM rounds. She reports that she is having a much better day today than she did yesterday. Yesterday she experienced a significant amount of nausea and vomiting with any p.o. intake. Today, she is back to tolerating her diet but still finds her Shaan supplement unappealing. She states that her colostomy appliance is no longer leaking with the continued use of the ostomy belt. She confirms that her radiation treatments were completed yesterday and case management discussions for her ultimate transition home are ongoing. Exam: GI: Patient's abdomen is soft and nondistended. The port site incisions remain sealed with Steri-Strips which are beginning to curl. However there is no periincisional erythema or induration. The left lower quadrant colostomy output is thickening and appears to be functioning well. Patient is postoperative day 7 from a laparoscopic sigmoid colectomy with diverting end colostomy. She appears to be recovering well aside from some intermittent GI upset. Etiology has never been confirmed but she continues to receive IV antibiotic therapy for her multidrug-resistant infection of her sacra l decubitus ulcer and osteomyelitis. These antibiotics are due at least through June 26. Discussions ongoing for patient's transition home. In the meantime, Mrs. Enriquez has been given a positive report from wound and ostomy nursing on the healing of her sacral wound.
[2021-06-13 11:47] VITALS: RESP 16
[2021-06-13 12:25] VITALS: BP 106/49; PULSE 85; RESP 18; TEMP 37; O2SAT 94
[2021-06-13 12:26] VITALS: BP 106/49; PULSE 85
--- NOTE | 2021-06-13 13:55 | NURSING ---
Ostomy appliance remains intact. ostomy belt in place. small amount of unformed brown stool noted in the ostomy appliance. will continue to monitor.
[2021-06-13 17:08] VITALS: BP 123/58; PULSE 87
[2021-06-13] MEDS: MELATONIN 3 MG TABLET PO (21:58)
[2021-06-13] MEDS: Acetaminophen 500 MG Tablet 1000 MG PO (21:59)
[2021-06-13] MEDS: Atorvastatin Calcium 40 MG Tablet PO (21:59)
[2021-06-14 00:04] VITALS: BP 113/74; PULSE 79
[2021-06-14] MEDS: Metoprolol Tartrate 50 MG Tablet PO ×4 (00:04→17:47)
[2021-06-14 06:21] VITALS: BP 145/64; PULSE 78
[2021-06-14] MEDS: Linezolid 600 MG Tablet PO ×2 (06:21→17:47)
[2021-06-14] MEDS: Lisinopril 5 MG Tablet PO (06:21)
[2021-06-14] MEDS: APIXABAN 5 MG TABLET PO ×2 (06:21→17:47)
[2021-06-14] MEDS: Gabapentin 300 MG Capsule PO ×3 (06:25→21:36)
[2021-06-14] MEDS: Amiodarone 200 MG Tablet 400 MG PO (08:20)
[2021-06-14] MEDS: Multivitamins,Therapeutic Tablet 1 TABLET PO (08:20)
[2021-06-14 12:45] VITALS: BP 142/64; PULSE 82
[2021-06-14] MEDS: 0.9 % NaCl (Sterile) Posiflush 10 mL IV (14:36)
--- NOTE | 2021-06-14 15:01 | NURSING ---
ostomy appliance changed. still some mild irritation noted to the periwound. cleansed with warm water. pat dry. lightly dusted with stoma powder and applied a new flat appliance with a small amount of stoma paste. pt tolerated well. reapplied the ostomy belt.
--- NOTE | 2021-06-14 15:16 | CASEMGMT ---
Social Work Plan of care meeting held with pt, pt's Lc and pt's daughter present. Pt sitting up in bed, reports feeling well, affect pleasant and talkative with team. Pt is receiving PT/OT and participating. PT continues to use mckenna lift for transfers and Max A-Dependent for toileting and lower body care. Pt does have an electric wheelchair however it is not working well. Lc states that he is in contact with [employer] to find a used chair that would be both functional and affordable for pt. Pt has had a ramp installed in the home and states he went to [facility] today to get a hospital bed lined up. Pt does have IV ATB through 06/26 and pt will remain in TCU through that time. Pt and family not ready to set a discharge date at this time but are working toward getting pt home. Pt will continue with treatment plan on TCU. JEROMY Justice
[2021-06-14 17:47] VITALS: BP 157/53; PULSE 81
[2021-06-14 21:00] VITALS: PULSE 78; RESP 16; O2SAT 92
[2021-06-14] MEDS: Atorvastatin Calcium 40 MG Tablet PO (21:35)
[2021-06-14] MEDS: MELATONIN 3 MG TABLET PO (21:35)
[2021-06-14] MEDS: Acetaminophen 500 MG Tablet 1000 MG PO (21:35)
[2021-06-15 00:32] VITALS: BP 134/61; PULSE 78
[2021-06-15] MEDS: Metoprolol Tartrate 50 MG Tablet PO ×4 (00:32→17:34)
[2021-06-15 06:00] VITALS: BP 137/64; PULSE 74
[2021-06-15] MEDS: Gabapentin 300 MG Capsule PO ×3 (06:00→21:45)
[2021-06-15] MEDS: APIXABAN 5 MG TABLET PO ×2 (06:00→17:34)
[2021-06-15] MEDS: Linezolid 600 MG Tablet PO ×2 (06:01→17:34)
[2021-06-15] MEDS: Lisinopril 5 MG Tablet PO (06:01)
[2021-06-15] MEDS: Ondansetron 4 MG/2 ML Vial IV (06:06)
[2021-06-15] MEDS: 0.9 % NaCl (Sterile) Posiflush 10 mL IV ×3 (06:07→21:47)
[2021-06-15] MEDS: Multivitamins,Therapeutic Tablet 1 TABLET PO (08:39)
[2021-06-15 08:40] VITALS: BP 130/70; PULSE 74
[2021-06-15] MEDS: Amiodarone 200 MG Tablet 400 MG PO (08:40)
[2021-06-15 12:09] VITALS: BP 136/57; PULSE 78
[2021-06-15 13:25] VITALS: BP 115/62; PULSE 73; RESP 16; TEMP 36.4; O2SAT 97
[2021-06-15 16:03] VITALS: BMI 29.6
[2021-06-15 17:34] VITALS: BP 149/79; PULSE 82
[2021-06-15] MEDS: Acetaminophen 500 MG Tablet 1000 MG PO (21:45)
[2021-06-15] MEDS: Atorvastatin Calcium 40 MG Tablet PO (21:45)
[2021-06-15] MEDS: MELATONIN 3 MG TABLET PO (21:45)
[2021-06-16] VITALS: BP 111/55; PULSE 78
[2021-06-16 05:51] LABS: Hematocrit 28.8 % (37-47); Hemoglobin 8.9 g/dL (12.0-15.0); Mean Corp Hgb Conc 30.9 g/dL (32-36); Mean Corpuscular Hgb 25.1 pg (27.0-32.0); Mean Corpuscular Volume 81.4 fL (81-99); Mean Platelet Vol. 9.2 fl (6.2-12.0); POSITIVE COUNT YES; POSITIVE DIFFERENTIAL YES; POSITIVE MORPHOLOGY YES; Platelet Count 154 K/mm3 (150-450); RBC Distribution Width CV 20.5 % (11.6-14.6); RBC Distribution Width SD 54.4 fl (35.1-43.9); Red Blood Count 3.54 M/mm3 (4.2-5.4); White Blood Count 3.3 K/mm3 (4.4-11.0)
[2021-06-16] MEDS: Lisinopril 5 MG Tablet PO (06:30)
[2021-06-16] MEDS: APIXABAN 5 MG TABLET PO ×2 (06:30→17:27)
[2021-06-16] MEDS: Linezolid 600 MG Tablet PO ×2 (06:30→17:25)
[2021-06-16 06:31] VITALS: BP 131/62; PULSE 72
[2021-06-16] MEDS: Metoprolol Tartrate 50 MG Tablet PO ×4 (06:31→17:25)
[2021-06-16 06:32] LABS: Differential Indicated MANUAL DIFF
[2021-06-16] MEDS: Polyethylene Glycol 3350 17 GM PACKET PO (06:33)
[2021-06-16 06:52] LABS: Anion Gap 3 (5-15); BUN 6 mg/dL (7-18); BUN/Creat Ratio 22.6 RATIO (10-20); Calcium,Total 8.4 mg/dL (8.5-10.1); Chloride 106 mmol/L (98-107); Creatinine, Serum 0.26 mg/dL (0.55-1.02); EST Glomerular Filtration Rate 265 mL/min (>60); Est Glom Filt Rate - Afr Amer 320 mL/min (>60); Estimated Creatinine Clearance 41.33 ml/min; Glucose 93 mg/dL (74-106); Potassium 4.3 mmol/L (3.5-5.1); Sodium Level 139 mmol/L (136-145)
[2021-06-16 07:10] LABS: Anisocytosis 2+; Eosinophil 4 % (0-5); Lymphocyte 18 % (19-41); Metamyelocyte 3 % (0-1); Monocyte 9 % (0-10); Neutrophil-Band 4 % (0-5); Neutrophil-Segmented 62 % (47-70); Nucleated Red Bld Cells,Manual 1 % (0-5); Platelet Estimate ADEQUATE (ADEQ); Total Cells Counted 100 (MANUAL DIFF)
[2021-06-16 07:11] LABS: Absolute Neutrophil Count 2.2 X10^3/uL (2.0-7.7); Neutrophil # 2.17 X10^3/uL (2.7-7.7)
[2021-06-16 07:12] LABS: Absolute Lymphocyte Count 0.59 X10^3/uL (0.83-4.51); Lymphocyte # 0.59 X10^3/ul (0.83-4.51)
[2021-06-16] MEDS: Gabapentin 300 MG Capsule PO ×3 (08:08→17:27)
[2021-06-16] MEDS: Amiodarone 200 MG Tablet 400 MG PO (08:08)
[2021-06-16] MEDS: Senna/Docusate Sodium 1 Tablet PO ×2 (08:08→17:27)
[2021-06-16] MEDS: Multivitamins,Therapeutic Tablet 1 TABLET PO (08:09)
--- NOTE | 2021-06-16 10:38 | NURSING ---
IV ATB infused, when trying to flush line unable to, had position change position, cough. had some luck and able to flush but with difficulty. tried other line and same. pt stated silvia changed early AM, dr mena updated, new order for cxr and if good placement then use cathflo.
--- NOTE | 2021-06-16 10:45 | RAD_ITS ---
STUDY: X-RAY CHEST REASON FOR EXAM: Female, 75 years old. Check picc line placement d/t hard to flush -- drsg changed early AM TECHNIQUE: Single AP portable view of the chest. COMPARISON: Comparison is made with prior examination dated 05/31/2021. FINDINGS: A right-sided PICC line catheter is in situ. The tip is at the junction of the right subclavian vein and superior vena cava. Stable mild degree of increased markings at the lung bases suggest some mild scarring. There is no demonstrated pleural abnormality. Sternal cerclage wires and vascular clips are present from a prior sternotomy and coronary artery bypass graft procedure (CABG). Normal mediastinum and leoncio. Normal visualized pulmonary arteries. There is atherosclerotic calcification of the aortic arch with tortuosity. Normal visualized thoracic spine. Normal visualized ribs, clavicles, and shoulders. There is no demonstrated abnormality of the visualized soft tissue structures of the upper abdomen. RAD/CXR for Line Placement IMPRESSION: The tip of the right-sided PICC line catheter is at the junction of the right subclavian vein and superior vena cava. Electronically Signed: Nathan Cotton MD at 11:09 EDT , Service support ,
[2021-06-16 12:00] VITALS: BP 115/55; PULSE 75
[2021-06-16] MEDS: Alteplase 2 MG/2 ML Vial 4 MG IV (12:54)
[2021-06-16 12:56] LABS: Pathologist Review Reviewed
[2021-06-16 14:57] VITALS: BP 135/66; PULSE 78; RESP 16; TEMP 36.8; O2SAT 99
--- NOTE | 2021-06-16 15:00 | NURSING ---
was able to put cathflo in red port with resistance, Purple port flushes with some resistance. waited 30 minutes, unable to get blood return, rechecked in 1 hour, still not blood return. notified terminal operations supervisor and said to wait 2 hrs because it took that long last time she needed cathflo. Its been 3 hrs and still not blood return, called RN terminal operations supervisor, he will be up or call when done in meeting.
--- NOTE | 2021-06-16 15:41 | NURSING ---
notified mastic floor layer, awaiting return call.
--- NOTE | 2021-06-16 17:00 | NURSING ---
draw bench operator helper returned call & gave instructions to remove drsg and see if tubing pinched under drsg and pull back 1 cm. this was done and was able to get easy flush both lines but no blood return. RN supervisor cytogenetic laboratory notified and ok to administer IV ATB and if any more issues with blood return notify draw bench operator helper. new drsg applied. pt skin very loose d/t recent wt loss.
[2021-06-16 17:25] VITALS: PULSE 78
--- NOTE | 2021-06-16 17:27 | PCM.PN.SRG ---
Subjective Subjective Postop day #32 From Excision necrotic sacral pressure sore, Stage IV, with partial ostectomy for osteomyelitis. Patient sitting in bed. She states she is doing well. Objective Data Objective Data Vital Signs: Vital Signs Temp Pulse Resp BP Pulse Ox 98.3 F 78 16 135/66 H 99 06/16/21 14:57 06/16/21 14:57 06/16/21 14:57 06/16/21 14:57 06/16/21 14:57 Oxygen Delivery Method Room Air Weight: 178 lb Body Mass Index (BMI) 29.6 Intake & Output: Intake and Output for Last 24 Hours 06/14/21 06/15/21 06/16/21 23:59 23:59 23:59 Intake Total 960 / 960 1327.0 / 1327.0 720 / 720 Output Total 1400 / 1400 3100 / 3100 1050 / 1050 Balance -440 / -440 -1773.0 / -1773.0 -330 / -330 Lab / Micro Data Result Diagrams: 06/16/21 05:23 06/16/21 05:23 Labs: Laboratory Results - last 24 hr 06/16/21 05:23: WBC 3.3 L, RBC 3.54 L, Hgb 8.9 L, Hct 28.8 L, MCV 81.4, MCH 25.1 L, MCHC 30.9 L, RDW Std Deviation 54.4 H, RDW Coeff of Ivory 20.5 H, Plt Count 154, MPV 9.2, Neut % (Auto) Not Reportable, Absolute Neuts (auto) 2.2, Absolute Lymphs (auto) 0.59 L, Total Counted 100, Neutrophils % (Manual) 62, Band Neutrophils % 4, Lymphocytes % (Manual) 18 L, Monocytes % (Manual) 9, Eosinophils % (Manual) 4, Metamyelocytes % 3 H, Nucleated RBCs/100 WBC 1, Diff Path Review Reviewed, Platelet Estimate ADEQUATE, Anisocytosis 2+ 06/16/21 05:23: Sodium 139, Potassium 4.3, Chloride 106, Carbon Dioxide 30.0, Anion Gap 3 L, BUN 6 L, Creatinine 0.26 L, Estim Creat Clear Calc 41.33, Est GFR (MDRD) Af Amer 320, Est GFR (MDRD) Non-Af 265, BUN/Creatinine Ratio 22.6 H, Glucose 93, Calcium 8.4 L Radiography Diagnostic Testing: Radiology Impression Chest X-Ray 06/16/21 10:45 IMPRESSION: The tip of the right-sided PICC line catheter is at the junction of the right subclavian vein and superior vena cava. Electronically Signed: Nathan Cotton MD at 11:09 EDT , Service support , Physical Exam Const oriented x3 and no apparent distress Resp normal respiratory effort Cardio regular rate GI soft to palpation Extremity Extremity Narrative: Capillary refill <3 seconds. Skin Wound Narrative: Sacral ulcer is stable. Wound VAC dressing in place. Neuro oriented x3 and CN's II-XII intact bilaterally Psych mental status grossly normal Assessment & Plan Assessment/Plan (1) Pressure ulcer of sacral region, stage 4: (2) Debility: (3) Colostomy in place: (4) Diffuse large B cell lymphoma: QUALIFIERS: Lymphoma site: unspecified region Qualified Code(s): C83.30 - Diffuse large B-cell lymphoma, unspecified site PLAN: Sacral ulcer is stable. Wound VAC in place. Colostomy placed. She states she is feeling ok. She has completed her radiation treatments for her diffuse large B-cell lymphoma. Operative tissue culture positive for Escherichia coli, Klebsiella, Vanc. Resist. E. gallinarum, Vanc. Resist. E. faecalis. Operative bone culture positive for Escherichia coli, Vanc. Resist. E. faecalis, Vanc. Resist. E. gallinarum. She is on Meropenem and Linezolid started. ID is managing. Prealbumin 4.9 on 05/17. Encouraged increase protein intake to help with wound healing. She is ordered Shaan protein supplements twice daily. When she is discharged home, she will follow up at the wound healing center for management of her wound. Charges/Coding Procedures Integumentary [id number]: [id number] Global Visit
[2021-06-16] MEDS: MELATONIN 3 MG TABLET PO (21:32)
[2021-06-16] MEDS: Atorvastatin Calcium 40 MG Tablet PO (21:32)
[2021-06-16] MEDS: Acetaminophen 500 MG Tablet 1000 MG PO (21:32)
[2021-06-17] VITALS (8 sets, daily range): BP systolic 110–148; BP diastolic 53–74; PULSE 74–84; RESP 15–16; TEMP 36.6–36.9; O2SAT 92–96
[2021-06-17] MEDS: Metoprolol Tartrate 50 MG Tablet PO ×4 (00:54→17:04)
[2021-06-17] MEDS: Lisinopril 5 MG Tablet PO (06:21)
[2021-06-17] MEDS: APIXABAN 5 MG TABLET PO ×2 (06:21→17:04)
[2021-06-17] MEDS: Linezolid 600 MG Tablet PO ×2 (06:21→17:03)
[2021-06-17] MEDS: Senna/Docusate Sodium 1 Tablet PO ×2 (06:22→17:03)
[2021-06-17] MEDS: Gabapentin 300 MG Capsule PO ×3 (09:00→17:04)
[2021-06-17] MEDS: Multivitamins,Therapeutic Tablet 1 TABLET PO (09:01)
[2021-06-17] MEDS: Amiodarone 200 MG Tablet 400 MG PO (09:01)
[2021-06-17] MEDS: Ondansetron 4 MG/2 ML Vial IV (12:20)
[2021-06-17] MEDS: proCHLORPERazine 5 MG Tablet 10 MG PO (13:47)
[2021-06-17] MEDS: 0.9 % NaCl (Sterile) Posiflush 10 mL IV (21:20)
[2021-06-17] MEDS: MELATONIN 3 MG TABLET PO (21:23)
[2021-06-17] MEDS: Acetaminophen 500 MG Tablet 1000 MG PO (21:23)
[2021-06-17] MEDS: Atorvastatin Calcium 40 MG Tablet PO (21:23)
[2021-06-18 00:24] VITALS: BP 128/61; PULSE 83
[2021-06-18] MEDS: Metoprolol Tartrate 50 MG Tablet PO ×4 (00:24→18:00)
[2021-06-18] MEDS: 0.9 % NaCl (Sterile) Posiflush 10 mL IV ×2 (06:01→14:08)
[2021-06-18 06:02] VITALS: BP 134/96; PULSE 78
[2021-06-18] MEDS: Nystatin Powder 15gm Bottle 1 APPLIC TOPICAL ×2 (06:04→18:04)
[2021-06-18] MEDS: Senna/Docusate Sodium 1 Tablet PO ×2 (06:04→18:00)
[2021-06-18] MEDS: APIXABAN 5 MG TABLET PO ×2 (06:04→18:00)
[2021-06-18] MEDS: Lisinopril 5 MG Tablet PO (06:04)
[2021-06-18] MEDS: Linezolid 600 MG Tablet PO ×2 (06:04→18:00)
[2021-06-18] MEDS: Amiodarone 200 MG Tablet 400 MG PO (08:31)
[2021-06-18] MEDS: Multivitamins,Therapeutic Tablet 1 TABLET PO (08:31)
[2021-06-18] MEDS: Gabapentin 300 MG Capsule PO ×3 (08:31→18:00)
[2021-06-18 12:19] VITALS: BP 149/67; PULSE 81; RESP 18; TEMP 37.1; O2SAT 97
[2021-06-18 12:21] VITALS: BP 149/67; PULSE 81
[2021-06-18 18:00] VITALS: PULSE 76
[2021-06-18] MEDS: MELATONIN 3 MG TABLET PO (21:45)
[2021-06-18] MEDS: Atorvastatin Calcium 40 MG Tablet PO (21:45)
[2021-06-18] MEDS: Acetaminophen 500 MG Tablet 1000 MG PO (21:45)
[2021-06-19] VITALS (7 sets, daily range): BP systolic 105–155; BP diastolic 55–68; PULSE 76–92; RESP 16–17; TEMP 36.5; O2SAT 96–98
[2021-06-19] MEDS: Metoprolol Tartrate 50 MG Tablet PO ×5 (00:38→23:53)
[2021-06-19] MEDS: 0.9 % NaCl (Sterile) Posiflush 10 mL IV ×3 (06:41→22:14)
[2021-06-19] MEDS: Senna/Docusate Sodium 1 Tablet PO ×2 (06:46→17:51)
[2021-06-19] MEDS: Lisinopril 5 MG Tablet PO (06:46)
[2021-06-19] MEDS: Linezolid 600 MG Tablet PO ×2 (06:46→17:51)
[2021-06-19] MEDS: APIXABAN 5 MG TABLET PO ×2 (06:47→17:51)
[2021-06-19] MEDS: Nystatin Powder 15gm Bottle 1 APPLIC TOPICAL (06:47)
[2021-06-19] MEDS: Multivitamins,Therapeutic Tablet 1 TABLET PO (08:08)
[2021-06-19] MEDS: Amiodarone 200 MG Tablet 400 MG PO (08:08)
[2021-06-19] MEDS: Gabapentin 300 MG Capsule PO ×2 (08:08→12:00)
--- NOTE | 2021-06-19 15:21 | WOUNDNOTE ---
wound photo: sacrum
[2021-06-19] MEDS: Atorvastatin Calcium 40 MG Tablet PO (21:26)
[2021-06-19] MEDS: MELATONIN 3 MG TABLET PO (21:26)
[2021-06-19] MEDS: Acetaminophen 500 MG Tablet 1000 MG PO (21:26)
[2021-06-20] MEDS: 0.9 % NaCl (Sterile) Posiflush 10 mL IV ×2 (06:11→11:32)
[2021-06-20 06:19] VITALS: BP 162/69; PULSE 87
[2021-06-20] MEDS: Metoprolol Tartrate 50 MG Tablet PO ×4 (06:19→23:59)
--- NOTE | 2021-06-20 06:24 | NURSING ---
Pt. requests Lopressor at this time, requests all other oral medications be administered at breakfast time
--- NOTE | 2021-06-20 09:05 | MDS.RN ---
Information for the mds was obtained from review of the clinical record, interview of resident, staff, and direct observation of resident's care.
[2021-06-20] MEDS: APIXABAN 5 MG TABLET PO ×2 (09:57→17:29)
[2021-06-20] MEDS: Gabapentin 300 MG Capsule PO ×2 (09:57→17:29)
[2021-06-20] MEDS: Linezolid 600 MG Tablet PO ×2 (09:57→17:29)
[2021-06-20] MEDS: Lisinopril 5 MG Tablet PO (09:57)
[2021-06-20] MEDS: Multivitamins,Therapeutic Tablet 1 TABLET PO (09:57)
[2021-06-20] MEDS: Amiodarone 200 MG Tablet 400 MG PO (09:57)
[2021-06-20] MEDS: Senna/Docusate Sodium 1 Tablet PO ×2 (09:57→17:29)
[2021-06-20] MEDS: Nystatin Powder 15gm Bottle 1 APPLIC TOPICAL ×2 (09:58→17:30)
[2021-06-20 10:00] VITALS: PULSE 73; RESP 16; O2SAT 96
[2021-06-20 11:27] VITALS: BP 160/69; PULSE 78
[2021-06-20] MEDS: Ondansetron 4 MG/2 ML Vial IV (11:32)
--- NOTE | 2021-06-20 15:10 | NURSING ---
Resident and spouse, Cl notified of COVID status on the unit.
[2021-06-20 16:35] VITALS: BP 152/62; PULSE 73; RESP 18; TEMP 37; O2SAT 96
[2021-06-20 17:29] VITALS: PULSE 73
[2021-06-20] MEDS: proCHLORPERazine 5 MG Tablet 10 MG PO (21:38)
[2021-06-20] MEDS: MELATONIN 3 MG TABLET PO (21:39)
[2021-06-20] MEDS: Atorvastatin Calcium 40 MG Tablet PO (21:39)
[2021-06-20] MEDS: Acetaminophen 500 MG Tablet 1000 MG PO (21:40)
[2021-06-20 23:59] VITALS: BP 128/65; PULSE 93
[2021-06-21] MEDS: Linezolid 600 MG Tablet PO ×2 (05:51→16:59)
[2021-06-21] MEDS: Lisinopril 5 MG Tablet PO (05:52)
[2021-06-21] MEDS: Nystatin Powder 15gm Bottle 1 APPLIC TOPICAL ×2 (05:52→17:00)
[2021-06-21] MEDS: Senna/Docusate Sodium 1 Tablet PO ×2 (05:52→16:59)
[2021-06-21] MEDS: APIXABAN 5 MG TABLET PO ×2 (05:52→17:00)
[2021-06-21 05:53] VITALS: BP 135/67; PULSE 83
[2021-06-21] MEDS: Metoprolol Tartrate 50 MG Tablet PO ×3 (05:53→17:00)
[2021-06-21] MEDS: Gabapentin 300 MG Capsule PO ×2 (08:36→17:00)
[2021-06-21] MEDS: Multivitamins,Therapeutic Tablet 1 TABLET PO (08:36)
[2021-06-21] MEDS: Amiodarone 200 MG Tablet 400 MG PO (08:36)
[2021-06-21 12:06] VITALS: BP 143/61; PULSE 87
--- NOTE | 2021-06-21 12:21 | NURSING ---
R' REMAINS IN CONTACT ISOLATION. ALL CARE PROVIDED IN ROOM.
[2021-06-21] MEDS: 0.9 % NaCl (Sterile) Posiflush 10 mL IV (12:53)
[2021-06-21 17:00] VITALS: PULSE 76
[2021-06-21] MEDS: Acetaminophen 500 MG Tablet 1000 MG PO (21:39)
[2021-06-21] MEDS: MELATONIN 3 MG TABLET PO (21:39)
[2021-06-21] MEDS: Atorvastatin Calcium 40 MG Tablet PO (21:39)
[2021-06-21] MEDS: proCHLORPERazine 5 MG Tablet 10 MG PO (21:40)
[2021-06-22 00:26] VITALS: BP 125/70; PULSE 89
[2021-06-22] MEDS: Metoprolol Tartrate 50 MG Tablet PO ×4 (00:26→17:39)
[2021-06-22] MEDS: 0.9 % NaCl (Sterile) Posiflush 10 mL IV ×4 (00:27→21:25)
[2021-06-22 06:04] VITALS: BP 143/70; PULSE 80
[2021-06-22] MEDS: Nystatin Powder 15gm Bottle 1 APPLIC TOPICAL ×2 (06:04→17:39)
[2021-06-22] MEDS: Lisinopril 5 MG Tablet PO (06:04)
[2021-06-22] MEDS: APIXABAN 5 MG TABLET PO ×2 (06:04→17:39)
[2021-06-22] MEDS: Linezolid 600 MG Tablet PO ×2 (06:04→17:39)
[2021-06-22] MEDS: Senna/Docusate Sodium 1 Tablet PO ×2 (06:04→17:39)
[2021-06-22] MEDS: Amiodarone 200 MG Tablet 400 MG PO (08:04)
[2021-06-22] MEDS: Gabapentin 300 MG Capsule PO ×2 (08:04→16:09)
[2021-06-22] MEDS: Multivitamins,Therapeutic Tablet 1 TABLET PO (08:04)
[2021-06-22 12:24] VITALS: BP 161/72; PULSE 77
[2021-06-22 13:47] VITALS: PULSE 77; RESP 16; O2SAT 96
[2021-06-22 17:39] VITALS: BP 164/78; PULSE 74
[2021-06-22 18:51] VITALS: BP 161/72; PULSE 77; RESP 16; TEMP 36.9; O2SAT 96
[2021-06-22] MEDS: Acetaminophen 500 MG Tablet 1000 MG PO (21:36)
[2021-06-22] MEDS: Atorvastatin Calcium 40 MG Tablet PO (21:37)
[2021-06-22] MEDS: MELATONIN 3 MG TABLET PO (21:37)
[2021-06-23 00:07] VITALS: BP 154/68; PULSE 86
[2021-06-23] MEDS: Metoprolol Tartrate 50 MG Tablet PO ×3 (00:07→17:06)
[2021-06-23 04:45] LABS: Hemoglobin 8.1 g/dL (12.0-15.0); Mean Corp Hgb Conc 31.2 g/dL (32-36); Mean Corpuscular Hgb 24.6 pg (27.0-32.0); Mean Platelet Vol. 9.5 fl (6.2-12.0); POSITIVE COUNT YES; POSITIVE DIFFERENTIAL YES; POSITIVE MORPHOLOGY YES; Platelet Count 128 K/mm3 (150-450); RBC Distribution Width CV 20.4 % (11.6-14.6); RBC Distribution Width SD 53.6 fl (35.1-43.9); Red Blood Count 3.29 M/mm3 (4.2-5.4); White Blood Count 1.9 K/mm3 (4.4-11.0)
[2021-06-23 04:58] LABS: Differential Indicated MANUAL DIFF
[2021-06-23 05:40] LABS: Anion Gap 7 (5-15); BUN 7 mg/dL (7-18); BUN/Creat Ratio 25.1 RATIO (10-20); Calcium,Total 8.4 mg/dL (8.5-10.1); Chloride 103 mmol/L (98-107); Creatinine, Serum 0.28 mg/dL (0.55-1.02); EST Glomerular Filtration Rate 250 mL/min (>60); Est Glom Filt Rate - Afr Amer 302 mL/min (>60); Estimated Creatinine Clearance 41.33 ml/min; Glucose 100 mg/dL (74-106); Potassium 3.7 mmol/L (3.5-5.1); Sodium Level 138 mmol/L (136-145)
[2021-06-23] MEDS: Ondansetron 4 MG/2 ML Vial IV (05:46)
[2021-06-23] MEDS: 0.9 % NaCl (Sterile) Posiflush 10 mL IV ×3 (05:51→21:31)
[2021-06-23 06:01] VITALS: BP 140/70; PULSE 78
--- NOTE | 2021-06-23 06:10 | NURSING ---
Addendum entered by Catina Pérez 06/23/21 07:29: 07:00 Resting in bed with eyes closed, no distress observed or reported. Call light in reach. Resps even and unlabored. Original Note: Pt. accepts only oral medication Lopressor at this time, states will accept remaining morning medications closer to breakfast due to upset stomach. PRN Zofran administered per order, declined food/drink. No distress observed or reported. Call light in reach.
[2021-06-23 06:24] LABS: Metamyelocyte 2 % (0-1); Monocyte 8 % (0-10); Myelocyte 1 % (0-0); Neutrophil-Band 1 % (0-5); Neutrophil-Segmented 60 % (47-70); Total Cells Counted 100 (MANUAL DIFF)
[2021-06-23 06:25] LABS: Eosinophil 5 % (0-5); Lymphocyte 22 % (19-41)
[2021-06-23 06:26] LABS: Hypochromasia RARE; Platelet Estimate ADEQUATE (ADEQ)
[2021-06-23 06:27] LABS: Absolute Lymphocyte Count 0.41 X10^3/uL (0.83-4.51); Absolute Neutrophil Count 1.1 X10^3/uL (2.0-7.7); Lymphocyte # 0.41 X10^3/ul (0.83-4.51); Neutrophil # 1.13 X10^3/uL (2.7-7.7)
[2021-06-23] MEDS: Senna/Docusate Sodium 1 Tablet PO ×2 (08:15→17:06)
[2021-06-23] MEDS: Lisinopril 5 MG Tablet PO (08:15)
[2021-06-23] MEDS: Linezolid 600 MG Tablet PO ×2 (08:15→17:06)
[2021-06-23] MEDS: APIXABAN 5 MG TABLET PO ×2 (08:15→17:06)
[2021-06-23] MEDS: Amiodarone 200 MG Tablet 400 MG PO (08:17)
[2021-06-23] MEDS: Multivitamins,Therapeutic Tablet 1 TABLET PO (08:17)
[2021-06-23] MEDS: Gabapentin 300 MG Capsule PO ×2 (08:17→17:06)
[2021-06-23] MEDS: proCHLORPERazine 5 MG Tablet 10 MG PO ×2 (11:01→21:41)
[2021-06-23 11:23] VITALS: BP 100/55; PULSE 80
[2021-06-23 12:21] VITALS: BP 130/63
--- NOTE | 2021-06-23 14:45 | NURSING ---
R' LEAKING AROUND CONNER. BLADDER SCANNED FOR >1000cc. NOTIFIED DR MCDANIEL. ORDER TO INSERT NEW CONNER AND IRRIGATE WITH 60cc NS DAILY. CONNER REMOVED AND HAD 800cc URINE. NEW 16F INSERTED BY Umer SEARS. RETURN OF 1800cc CLEAR, STRAW COLORED URINE. R' TOLERATED WELL. BED SHEETS/PAD CHANGED. .
[2021-06-23 14:49] VITALS: BP 140/59; PULSE 84; RESP 17; TEMP 36.7; O2SAT 98
[2021-06-23] MEDS: Nystatin Powder 15gm Bottle 1 APPLIC TOPICAL (17:05)
[2021-06-23 17:06] VITALS: PULSE 84
[2021-06-23] MEDS: Acetaminophen 500 MG Tablet 1000 MG PO (21:32)
[2021-06-23] MEDS: Atorvastatin Calcium 40 MG Tablet PO (21:32)
[2021-06-23] MEDS: MELATONIN 3 MG TABLET PO (21:32)
[2021-06-24] VITALS (7 sets, daily range): BP systolic 117–140; BP diastolic 52–62; PULSE 75–80; RESP 14–16; TEMP 37.2; O2SAT 93–99
[2021-06-24] MEDS: Metoprolol Tartrate 50 MG Tablet PO ×4 (00:16→17:28)
[2021-06-24] MEDS: Ondansetron 4 MG/2 ML Vial IV ×2 (04:22→17:35)
[2021-06-24] MEDS: 0.9 % NaCl (Sterile) Posiflush 10 mL IV ×3 (06:20→17:35)
--- NOTE | 2021-06-24 06:29 | NURSING ---
Pt. accepts only Lopressor at this time by mouth. Reports PRN Zofran as effective, denies nausea at this time. Pt. states will accept all other AM medications closer to breakfast, pt. states focused on sleeping.
[2021-06-24] MEDS: Gabapentin 300 MG Capsule PO ×2 (08:51→17:28)
[2021-06-24] MEDS: Amiodarone 200 MG Tablet 400 MG PO (08:51)
[2021-06-24] MEDS: Senna/Docusate Sodium 1 Tablet PO ×2 (08:52→17:29)
[2021-06-24] MEDS: Multivitamins,Therapeutic Tablet 1 TABLET PO (08:52)
[2021-06-24] MEDS: APIXABAN 5 MG TABLET PO ×2 (08:52→17:28)
[2021-06-24] MEDS: Nystatin Powder 15gm Bottle 1 APPLIC TOPICAL ×2 (08:52→17:29)
[2021-06-24] MEDS: Lisinopril 5 MG Tablet PO (08:52)
[2021-06-24] MEDS: Linezolid 600 MG Tablet PO ×2 (08:52→17:29)
[2021-06-24] MEDS: proCHLORPERazine 5 MG Tablet 10 MG PO (14:39)
[2021-06-24] MEDS: Acetaminophen 500 MG Tablet 1000 MG PO (21:31)
[2021-06-24] MEDS: Atorvastatin Calcium 40 MG Tablet PO (21:31)
[2021-06-24] MEDS: MELATONIN 3 MG TABLET PO (21:32)
[2021-06-25 00:05] VITALS: BP 140/63; PULSE 81
[2021-06-25] MEDS: Metoprolol Tartrate 50 MG Tablet PO ×4 (00:05→17:50)
[2021-06-25 06:13] VITALS: BP 143/66; PULSE 72; RESP 16; TEMP 36.6
[2021-06-25 06:20] VITALS: BP 143/66; PULSE 72
[2021-06-25] MEDS: Nystatin Powder 15gm Bottle 1 APPLIC TOPICAL ×2 (06:24→17:52)
[2021-06-25] MEDS: Ondansetron 4 MG/2 ML Vial IV ×3 (06:24→21:38)
[2021-06-25] MEDS: Senna/Docusate Sodium 1 Tablet PO ×2 (06:34→17:50)
[2021-06-25] MEDS: APIXABAN 5 MG TABLET PO ×2 (06:34→17:50)
[2021-06-25] MEDS: Lisinopril 5 MG Tablet PO (06:34)
[2021-06-25] MEDS: Linezolid 600 MG Tablet PO ×2 (06:34→17:50)
[2021-06-25] MEDS: Gabapentin 300 MG Capsule PO ×2 (08:25→17:50)
[2021-06-25] MEDS: Multivitamins,Therapeutic Tablet 1 TABLET PO (08:25)
[2021-06-25] MEDS: Amiodarone 200 MG Tablet 400 MG PO (08:25)
[2021-06-25 12:05] VITALS: BP 158/71; PULSE 79
[2021-06-25] MEDS: proCHLORPERazine 5 MG Tablet 10 MG PO (13:28)
[2021-06-25 16:47] VITALS: BP 158/71; PULSE 78; RESP 16; TEMP 36.8; O2SAT 94
[2021-06-25 17:50] VITALS: BP 158/71; PULSE 78
[2021-06-25] MEDS: Acetaminophen 500 MG Tablet 1000 MG PO (21:35)
[2021-06-25] MEDS: MELATONIN 3 MG TABLET PO (21:35)
[2021-06-25] MEDS: Atorvastatin Calcium 40 MG Tablet PO (21:36)
[2021-06-26 00:47] VITALS: BP 120/56; PULSE 82
[2021-06-26] MEDS: Metoprolol Tartrate 50 MG Tablet PO ×4 (00:47→18:15)
[2021-06-26 06:36] VITALS: BP 149/56; PULSE 75; RESP 16; TEMP 36.1; O2SAT 96
[2021-06-26] MEDS: Ondansetron 4 MG/2 ML Vial IV ×3 (06:45→21:44)
[2021-06-26] MEDS: APIXABAN 5 MG TABLET PO ×2 (06:46→18:59)
[2021-06-26] MEDS: Lisinopril 5 MG Tablet PO (06:46)
[2021-06-26] MEDS: Nystatin Powder 15gm Bottle 1 APPLIC TOPICAL ×2 (06:52→18:14)
[2021-06-26] MEDS: Senna/Docusate Sodium 1 Tablet PO ×2 (06:53→18:58)
[2021-06-26] MEDS: Linezolid 600 MG Tablet PO ×2 (06:55→18:58)
--- NOTE | 2021-06-26 07:26 | NURSING ---
Pt requested IV Zofran for anticipated nausea associated w/ am meds. Had this nurse administer a couple of medications at a time. Connected to IV atb per dr order. In no acute distress.
[2021-06-26] MEDS: Multivitamins,Therapeutic Tablet 1 TABLET PO (08:09)
[2021-06-26] MEDS: Gabapentin 300 MG Capsule PO ×2 (08:09→18:59)
[2021-06-26] MEDS: Amiodarone 200 MG Tablet 400 MG PO (08:09)
[2021-06-26 12:05] VITALS: BP 134/64; PULSE 74
[2021-06-26] MEDS: 0.9 % NaCl (Sterile) Posiflush 10 mL IV ×2 (12:05→13:26)
[2021-06-26 14:47] VITALS: BP 159/69; PULSE 68; RESP 17; TEMP 35.8; O2SAT 95
[2021-06-26] MEDS: proCHLORPERazine 5 MG Tablet 10 MG PO (18:13)
[2021-06-26 18:15] VITALS: PULSE 82
[2021-06-26] MEDS: Acetaminophen 500 MG Tablet 1000 MG PO (21:39)
[2021-06-26] MEDS: Atorvastatin Calcium 40 MG Tablet PO (21:40)
[2021-06-26] MEDS: MELATONIN 3 MG TABLET PO (21:40)
[2021-06-27] VITALS (9 sets, daily range): BP systolic 120–145; BP diastolic 59–70; PULSE 71–78; RESP 14–16; TEMP 36.2–36.4; O2SAT 93–97
[2021-06-27] MEDS: Metoprolol Tartrate 50 MG Tablet PO ×5 (00:16→23:57)
[2021-06-27] MEDS: Nystatin Powder 15gm Bottle 1 APPLIC TOPICAL ×2 (06:16→17:42)
[2021-06-27] MEDS: Lisinopril 5 MG Tablet PO (06:47)
[2021-06-27] MEDS: APIXABAN 5 MG TABLET PO ×2 (06:48→17:42)
[2021-06-27] MEDS: Senna/Docusate Sodium 1 Tablet PO ×2 (06:48→17:42)
[2021-06-27] MEDS: Gabapentin 300 MG Capsule PO (08:54)
[2021-06-27] MEDS: Multivitamins,Therapeutic Tablet 1 TABLET PO (08:55)
[2021-06-27] MEDS: Amiodarone 200 MG Tablet 400 MG PO (08:55)
[2021-06-27 10:01] LABS: Pathologist Review Reviewed
[2021-06-27] MEDS: 0.9 % NaCl (Sterile) Posiflush 10 mL IV (11:30)
--- NOTE | 2021-06-27 11:44 | NURSING ---
FLUSHED CONNER CATHETER WITH 60CC NORMAL SALINE PER ORDER AT THIS TIME.
[2021-06-27] MEDS: MELATONIN 3 MG TABLET PO (21:30)
[2021-06-27] MEDS: Acetaminophen 500 MG Tablet 1000 MG PO (21:30)
[2021-06-27] MEDS: Atorvastatin Calcium 40 MG Tablet PO (21:30)
[2021-06-28 06:55] VITALS: BP 148/60; PULSE 72
[2021-06-28] MEDS: Metoprolol Tartrate 50 MG Tablet PO ×3 (06:55→17:28)
[2021-06-28] MEDS: Lisinopril 5 MG Tablet PO (06:59)
[2021-06-28] MEDS: APIXABAN 5 MG TABLET PO ×2 (06:59→17:31)
[2021-06-28] MEDS: Senna/Docusate Sodium 1 Tablet PO ×2 (06:59→17:30)
[2021-06-28] MEDS: Amiodarone 200 MG Tablet 400 MG PO (08:29)
[2021-06-28] MEDS: Multivitamins,Therapeutic Tablet 1 TABLET PO (08:29)
[2021-06-28] MEDS: Nystatin Powder 15gm Bottle 1 APPLIC TOPICAL ×2 (08:32→17:31)
--- NOTE | 2021-06-28 09:38 | WOUNDNOTE ---
wound photo: sacrum
--- NOTE | 2021-06-28 11:52 | WOUNDNOTE ---
Ostomy appliance changed. removed old appliance. there was a moderate amount of soft brown stool noted in the appliance. peristomal skin is slightly denuded. mild redness noted. stoma still sits at skin level. cleansed with soap and water. pat dry. lightly dusted with stoma powder. applied a new flat 2 piece Alpha appliance with a small amount of stoma paste. pt tolerated well.
[2021-06-28 12:04] VITALS: BP 145/80; PULSE 77
[2021-06-28] MEDS: 0.9 % NaCl (Sterile) Posiflush 10 mL IV (12:15)
--- NOTE | 2021-06-28 12:23 | NURSING ---
Pt remains in contact precautions. All care provided in room. Gutierrez catheter flushed with 60 ml of normal saline at this time.
[2021-06-28 16:48] VITALS: BP 160/73; PULSE 78; RESP 16; TEMP 35.9; O2SAT 95
[2021-06-28 17:28] VITALS: PULSE 78
[2021-06-28] MEDS: Acetaminophen 500 MG Tablet 1000 MG PO (21:33)
[2021-06-28] MEDS: MELATONIN 3 MG TABLET PO (21:34)
[2021-06-28] MEDS: Atorvastatin Calcium 40 MG Tablet PO (21:34)
[2021-06-28] MEDS: Gabapentin 300 MG Capsule PO (21:34)
[2021-06-29] VITALS (7 sets, daily range): BP systolic 123–153; BP diastolic 61–69; PULSE 70–83; RESP 16; TEMP 37.2; O2SAT 93
[2021-06-29] MEDS: Metoprolol Tartrate 50 MG Tablet PO ×4 (00:32→16:57)
[2021-06-29] MEDS: APIXABAN 5 MG TABLET PO ×2 (05:21→16:58)
[2021-06-29] MEDS: Nystatin Powder 15gm Bottle 1 APPLIC TOPICAL ×2 (05:21→17:00)
[2021-06-29] MEDS: Senna/Docusate Sodium 1 Tablet PO ×2 (05:22→16:58)
[2021-06-29] MEDS: Lisinopril 5 MG Tablet PO (05:22)
[2021-06-29] MEDS: 0.9 % NaCl (Sterile) Posiflush 10 mL IV (05:23)
[2021-06-29] MEDS: Amiodarone 200 MG Tablet 400 MG PO (08:27)
[2021-06-29] MEDS: Multivitamins,Therapeutic Tablet 1 TABLET PO (08:27)
--- NOTE | 2021-06-29 10:47 | NS ---
Notified by dietary staff that Res does not want Ensure Clear and would like to change ONS to Ensure Enlive. Telephone call to speak w/ Res- Res thinks Ensure Clear has too much sugar and not enough protein. Would like to go back to 120mL of strawberry Ensure Enlive. Diet order updated and dietary staff notified. Yelena Cuellar MS, RDN, LD
[2021-06-29] MEDS: Acetaminophen 500 MG Tablet 1000 MG PO (21:32)
[2021-06-29] MEDS: MELATONIN 3 MG TABLET PO (21:32)
[2021-06-29] MEDS: Gabapentin 300 MG Capsule PO (21:33)
[2021-06-29] MEDS: Atorvastatin Calcium 40 MG Tablet PO (21:33)
[2021-06-30 00:07] VITALS: BP 131/61; PULSE 81
[2021-06-30] MEDS: Metoprolol Tartrate 50 MG Tablet PO ×5 (00:07→23:23)
[2021-06-30 05:50] LABS: Absolute Lymphocyte Count 0.38 X10^3/uL (0.83-4.51); Absolute Neutrophil Count 0.9 X10^3/uL (2.0-7.7); Basophil# 0.02 X10^3/uL; Basophil% 0.9 % (0-1); Eosinophil# 0.09 X10^3/uL; Eosinophils% 3.9 % (0-5); Hematocrit 25.3 % (37-47); Hemoglobin 7.9 g/dL (12.0-15.0); Lymphocyte # 0.38 X10^3/ul (0.83-4.51); Lymphocyte % 16.7 % (19-41); Mean Corp Hgb Conc 31.2 g/dL (32-36); Mean Corpuscular Hgb 24.8 pg (27.0-32.0); Mean Corpuscular Volume 79.3 fL (81-99); Mean Platelet Vol. 10.4 fl (6.2-12.0); Monocyte# 0.86 X10^3/uL; Monocyte% 37.7 % (0-10); NRBC Flagged by Analyzer 0 % (0-5); Neutrophil # 0.88 X10^3/uL (2.7-7.7); Neutrophil % 38.6 % (47-70); POSITIVE COUNT YES; POSITIVE DIFFERENTIAL YES; POSITIVE MORPHOLOGY YES; Platelet Count 94 K/mm3 (150-450); RBC Distribution Width SD 53.8 fl (35.1-43.9); Red Blood Count 3.19 M/mm3 (4.2-5.4); White Blood Count 2.3 K/mm3 (4.4-11.0)
[2021-06-30 05:56] LABS: Differential Indicated SCAN CRITERIA MET
[2021-06-30 06:13] LABS: Anion Gap 4 (5-15); BUN 5 mg/dL (7-18); BUN/Creat Ratio 16.9 RATIO (10-20); Calcium,Total 8.6 mg/dL (8.5-10.1); Chloride 105 mmol/L (98-107); EST Glomerular Filtration Rate 234 mL/min (>60); Est Glom Filt Rate - Afr Amer 283 mL/min (>60); Estimated Creatinine Clearance 41.33 ml/min; Glucose 109 mg/dL (74-106); Potassium 3.5 mmol/L (3.5-5.1); Sodium Level 141 mmol/L (136-145)
[2021-06-30 06:41] VITALS: BP 156/71; PULSE 82
[2021-06-30 06:42] VITALS: PULSE 82
[2021-06-30] MEDS: Lisinopril 5 MG Tablet PO (06:42)
[2021-06-30] MEDS: Senna/Docusate Sodium 1 Tablet PO ×2 (06:42→18:00)
[2021-06-30] MEDS: APIXABAN 5 MG TABLET PO ×2 (06:42→17:59)
[2021-06-30] MEDS: Nystatin Powder 15gm Bottle 1 APPLIC TOPICAL ×2 (06:43→17:59)
[2021-06-30] MEDS: Multivitamins,Therapeutic Tablet 1 TABLET PO (08:23)
[2021-06-30] MEDS: Amiodarone 200 MG Tablet 400 MG PO (08:23)
--- NOTE | 2021-06-30 11:02 | WOUNDNOTE ---
Colostomy appliance intact, but some stool odor noted. removed appliance. there was a moderate amount of unformed brown stool in the appliance. peristomal skin slightly denuded. less redness noted. cleansed skin with warm water. pat dry. applied a new 2 piece flat Leobardo appliance with a small amount of stoma paste. reapplied the belt. pt tolerated well.
[2021-06-30 11:56] VITALS: BP 151/58; BP 155/65; PULSE 71; PULSE 78; RESP 15; TEMP 35.8; O2SAT 94
[2021-06-30 11:57] LABS: Pathologist Review Reviewed
[2021-06-30] MEDS: Ondansetron 4 MG/2 ML Vial IV (13:44)
[2021-06-30] MEDS: 0.9 % NaCl (Sterile) Posiflush 10 mL IV (13:44)
[2021-06-30 17:58] VITALS: BP 142/65; PULSE 81
[2021-06-30] MEDS: MELATONIN 3 MG TABLET PO (21:33)
[2021-06-30] MEDS: Atorvastatin Calcium 40 MG Tablet PO (21:33)
[2021-06-30] MEDS: Gabapentin 300 MG Capsule PO (21:33)
[2021-06-30] MEDS: Acetaminophen 500 MG Tablet 1000 MG PO (21:33)
[2021-06-30 23:23] VITALS: BP 145/59; PULSE 75
[2021-07-01] VITALS (7 sets, daily range): BP systolic 129–163; BP diastolic 60–77; PULSE 75–84; RESP 16–18; TEMP 37.1–37.4; O2SAT 90–92
[2021-07-01] MEDS: Metoprolol Tartrate 50 MG Tablet PO ×4 (06:08→23:55)
[2021-07-01] MEDS: 0.9 % NaCl (Sterile) Posiflush 10 mL IV ×2 (06:09→12:42)
[2021-07-01] MEDS: Nystatin Powder 15gm Bottle 1 APPLIC TOPICAL ×2 (06:11→18:04)
[2021-07-01] MEDS: Senna/Docusate Sodium 1 Tablet PO ×2 (06:42→18:05)
[2021-07-01] MEDS: Lisinopril 5 MG Tablet PO (06:42)
[2021-07-01] MEDS: APIXABAN 5 MG TABLET PO ×2 (06:42→18:05)
[2021-07-01] MEDS: Amiodarone 200 MG Tablet 400 MG PO (09:17)
[2021-07-01] MEDS: Multivitamins,Therapeutic Tablet 1 TABLET PO (09:17)
--- NOTE | 2021-07-01 18:01 | NURSING ---
R' REMAINS IN CONTACT ISOLATION. ALL CARE PROVIDED IN ROOM.
[2021-07-01] MEDS: Atorvastatin Calcium 40 MG Tablet PO (21:39)
[2021-07-01] MEDS: MELATONIN 3 MG TABLET PO (21:39)
[2021-07-01] MEDS: Acetaminophen 500 MG Tablet 1000 MG PO (21:39)
[2021-07-01] MEDS: Gabapentin 300 MG Capsule PO (21:42)
[2021-07-02 06:15] VITALS: BP 138/63; PULSE 73
[2021-07-02] MEDS: 0.9 % NaCl (Sterile) Posiflush 10 mL IV ×2 (06:15→17:59)
[2021-07-02] MEDS: Metoprolol Tartrate 50 MG Tablet PO ×4 (06:15→23:58)
[2021-07-02] MEDS: Senna/Docusate Sodium 1 Tablet PO ×2 (06:44→17:59)
[2021-07-02] MEDS: APIXABAN 5 MG TABLET PO ×2 (06:44→17:59)
[2021-07-02] MEDS: Lisinopril 5 MG Tablet PO (06:44)
[2021-07-02] MEDS: Multivitamins,Therapeutic Tablet 1 TABLET PO (08:48)
[2021-07-02] MEDS: Nystatin Powder 15gm Bottle 1 APPLIC TOPICAL ×2 (08:48→17:59)
[2021-07-02] MEDS: Amiodarone 200 MG Tablet 400 MG PO (08:48)
[2021-07-02 12:41] VITALS: BP 148/58; PULSE 80
[2021-07-02 14:05] VITALS: BP 148/58; PULSE 80; RESP 18; TEMP 37.2; O2SAT 94
[2021-07-02 17:59] VITALS: PULSE 80
[2021-07-02] MEDS: Acetaminophen 500 MG Tablet 1000 MG PO (21:37)
[2021-07-02] MEDS: Gabapentin 300 MG Capsule PO (21:37)
[2021-07-02] MEDS: Atorvastatin Calcium 40 MG Tablet PO (21:37)
[2021-07-02] MEDS: MELATONIN 3 MG TABLET PO (21:37)
[2021-07-02 23:58] VITALS: BP 135/64; PULSE 81
[2021-07-03 06:18] VITALS: BP 140/69; PULSE 76
[2021-07-03] MEDS: Metoprolol Tartrate 50 MG Tablet PO ×3 (06:18→17:25)
[2021-07-03] MEDS: 0.9 % NaCl (Sterile) Posiflush 10 mL IV (06:18)
[2021-07-03] MEDS: Lisinopril 5 MG Tablet PO (06:57)
[2021-07-03] MEDS: Senna/Docusate Sodium 1 Tablet PO ×2 (06:57→17:26)
[2021-07-03] MEDS: APIXABAN 5 MG TABLET PO ×2 (06:57→17:26)
[2021-07-03] MEDS: Nystatin Powder 15gm Bottle 1 APPLIC TOPICAL ×2 (08:08→17:28)
[2021-07-03] MEDS: Multivitamins,Therapeutic Tablet 1 TABLET PO (08:08)
[2021-07-03] MEDS: Amiodarone 200 MG Tablet 400 MG PO (08:08)
--- NOTE | 2021-07-03 10:52 | WOUNDNOTE ---
wound photo: sacrum
[2021-07-03 11:11] VITALS: BP 131/57; PULSE 73
[2021-07-03 15:50] VITALS: BP 131/57; PULSE 73; RESP 18; TEMP 36.4; O2SAT 93
[2021-07-03 17:25] VITALS: BP 146/63; PULSE 82
--- NOTE | 2021-07-03 19:50 | PN.TCU_ITS ---
Subjective Subjective Resident seen, examined for regulatory visit. She is lying in bed, in her room. Her , and daughter are present. She has no new problems, concerns, issues, complaints. She feels she is doing well, getting used to her colostomy, her sacral wound is healing per wound nurse. Objective Data Objective Data Vital Signs: Vital Signs Temp Pulse Resp BP Pulse Ox 97.6 F L 82 18 146/63 H 93 07/03/21 15:50 07/03/21 17:25 07/03/21 15:50 07/03/21 17:25 07/03/21 15:50 Oxygen Delivery Method Room Air Weight: 78.018 kg Body Mass Index (BMI) 29.6 Intake & Output: Intake and Output for Last 24 Hours 07/01/21 07/02/21 07/03/21 23:59 23:59 23:59 Intake Total 600 / 600 360 / 360 360 / 360 Output Total 2500 / 2500 3175 / 3175 2225 / 2225 Balance -1900 / -1900 -2815 / -2815 -1865 / -1865 Medical Nutrition Assessment Dietitian: Malnutrition Criteria Met Start: 06/21/21 15:00 Freq: Status: Active Protocol: Document 06/21/21 15:00 [facility] (Rec: 06/21/21 15:00 [facility] [id number]) Nutrition Malnutrition Evidence of Malnutrition Exists Yes Malnutrition (severe): Chronic Evidenced By Suboptimal Energy Intake ( Moderate),Weight Loss (Severe) ,Physical Changes (Moderate) Intake Problem Increased Nutrient Needs (specify) Etiology protein related to wound healing needs Signs/Symptoms as evidenced by coccyx PI w/ wound vac and requiring oral nutrition supplements to help w/ wound healing - res no longer wanting Shaan bid d/t feels it gives her n/v - agreeable to ensure clear with meals. Status Active Problem Clinical Problem Chronic Disease or Condition Related Malnutrition Etiology related to inability to consume adequate nutrition to meet est nutritional needs for wt maintenance and wound healing Signs/Symptoms as evidenced by variable po intake at meals and 9.1% wt loss x 3 months - res also w/ muscle/fat loss (arms/legs) Status Active Problem Recommendation Dietitian Recommendations/Changes Will continue order to 8 oz hector ensure clear w/ meals Will continue Regular diet with small portions Lab / Micro Data Result Diagrams: 06/30/21 05:15 06/30/21 05:15 Physical Exam Const alert and oriented x3 General Appearance: cooperative HEENT normocephalic Eyes PERRL and EOMs intact bilaterally Neck supple, no JVD and no carotid bruits Resp normal respiratory effort, normal air movement and clear to auscultation bilaterally Cardio regular rate and regular rhythm GI normal to inspection, nondistended, normoactive bowel sounds, non-tender and non-distended GI Narrative: Colostomy. Extremity normal capillary refill General Extremity: Negative for edema Skin no rashes or lesions noted Skin Narrative: Sacral wound, wound VAC per wound nurse. General Skin Exam: no breakdown Psych affect normal Appearance: appropriate Assessment & Plan Assessment/Plan (1) Debility: (2) Pressure ulcer of sacral region, stage 4: (3) Osteomyelitis of pelvis: (4) Atrial fibrillation with rapid ventricular response: (5) Epidural mass: (6) Paraplegia: (7) Diffuse large B cell lymphoma: QUALIFIERS: Lymphoma site: unspecified region Qualified Code(s): C83.30 - Diffuse large B-cell lymphoma, unspecified site (8) Coronary artery disease: (9) Nausea: PLAN: 75 year old female with below past medical history significant for paraplegia, infected stage 4 sacral pressure ulcer, hospitalized for diverting colostomy 06/06/[address] Machado, admitted to TCU with debility, here for rehabilitation, strengthening, wound care, intravenous antibiotics, prior to discharge home with family. * Debility - PT/OT. * Pain - Tylenol 1000mg Q6H prn pain (1-10), 1000mg 21:30. * Bowel - Senna/colace 1 tablet twice daily. * Adult immunization - Administer prevnar 13, pneumovax 23, fluzone, [facility]19 [facility]. * DVT prophylaxis - Not necessary, on Eliquis. * Atrial fibrillation - Metoprolol 50mg Q6H, Amiodarone 400mg daily, Eliquis 5mg twice daily. * Hyperlipidemia - Atorvastatin 40mg QHS. * Neuropathic pain - Gabapentin 300mg QHS. * Coronary artery disease - Metoprolol 50mg Q6H, Eliquis 5MG twice daily. * Insomnia - Melatonin 3mg qhs. * Nutrition - MVI daily. * Nausea - Compazine 10mg Q6H PRN, Zofran 4mg IV Q6H PRN. * Stage 4 sacral pressure ulcer - Wound VAC per Wound nurse. * Sacral osteomyelitis - Resolved. * Diffuse large B cell lymphoma - s/p radiation treatment. * Tinea Corporis - Nystatin powder topical twice daily. Capacity Capacity Assessment Tool Can the patient make a choice & communicate that choice?: Yes Can the patient understand benefits, risks and alternatives?: Yes Can the patient make a logical, rational choice?: Yes Is the choice the patient makes consistent w/ their values?: Yes Is there an impending, emergent risk to the patient?: No Does the patient have an Advance Directive?: No Is there a Surrogate Available?: Yes i.e. HCPOA: Yes i.e. close relative (spouse, child, parent, sibling)?: Yes
[2021-07-03 20:01] VITALS: PULSE 78; RESP 16; O2SAT 92
[2021-07-03] MEDS: Acetaminophen 500 MG Tablet 1000 MG PO (21:25)
[2021-07-03] MEDS: MELATONIN 3 MG TABLET PO (21:25)
[2021-07-03] MEDS: Atorvastatin Calcium 40 MG Tablet PO (21:25)
[2021-07-03] MEDS: Gabapentin 300 MG Capsule PO (21:25)
[2021-07-04 01:10] VITALS: BP 126/61; PULSE 75
[2021-07-04] MEDS: Metoprolol Tartrate 50 MG Tablet PO ×4 (01:10→17:51)
[2021-07-04] MEDS: Senna/Docusate Sodium 1 Tablet PO ×2 (05:05→17:51)
[2021-07-04] MEDS: APIXABAN 5 MG TABLET PO ×2 (05:05→17:51)
[2021-07-04 05:06] VITALS: BP 130/60; PULSE 67
[2021-07-04] MEDS: Nystatin Powder 15gm Bottle 1 APPLIC TOPICAL ×2 (05:06→17:52)
[2021-07-04] MEDS: Lisinopril 5 MG Tablet PO (05:06)
[2021-07-04] MEDS: Multivitamins,Therapeutic Tablet 1 TABLET PO (08:23)
[2021-07-04] MEDS: Amiodarone 200 MG Tablet 400 MG PO (08:23)
[2021-07-04 11:50] VITALS: BP 147/63; PULSE 78
[2021-07-04 13:42] VITALS: PULSE 78; RESP 14; O2SAT 93
[2021-07-04 15:25] VITALS: BP 147/63; PULSE 78; RESP 14; TEMP 37; O2SAT 93
[2021-07-04 17:51] VITALS: BP 159/65; PULSE 85
[2021-07-04] MEDS: Acetaminophen 500 MG Tablet 1000 MG PO (21:33)
[2021-07-04] MEDS: Atorvastatin Calcium 40 MG Tablet PO (21:33)
[2021-07-04] MEDS: MELATONIN 3 MG TABLET PO (21:34)
[2021-07-04] MEDS: Gabapentin 300 MG Capsule PO (21:34)
[2021-07-05 00:26] VITALS: BP 153/63; PULSE 82
[2021-07-05] MEDS: Metoprolol Tartrate 50 MG Tablet PO ×4 (00:26→17:45)
[2021-07-05 06:36] VITALS: BP 143/67; PULSE 78
[2021-07-05] MEDS: Nystatin Powder 15gm Bottle 1 APPLIC TOPICAL ×2 (06:36→11:17)
[2021-07-05] MEDS: Senna/Docusate Sodium 1 Tablet PO ×2 (06:36→17:46)
[2021-07-05] MEDS: APIXABAN 5 MG TABLET PO ×2 (06:36→17:45)
[2021-07-05] MEDS: Lisinopril 5 MG Tablet PO (06:36)
[2021-07-05] MEDS: Amiodarone 200 MG Tablet 400 MG PO (08:21)
[2021-07-05] MEDS: Multivitamins,Therapeutic Tablet 1 TABLET PO (08:21)
[2021-07-05 08:26] LABS: Hematocrit 26.1 % (37-47); Hemoglobin 7.9 g/dL (12.0-15.0)
[2021-07-05 11:12] VITALS: BP 125/57; PULSE 73
[2021-07-05] MEDS: 0.9 % NaCl (Sterile) Posiflush 10 mL IV (11:14)
--- NOTE | 2021-07-05 11:23 | WOUNDNOTE ---
wound/stoma photo: abdomen
--- NOTE | 2021-07-05 11:25 | WOUNDNOTE ---
Colostomy appliance changed. peristomal skin is intact. stoma sits just below the skin level and is pink in color. cleansed peristomal skin with warm water. pat dry. appliance a new 2 piece flat Leobardo appliance with a small amount of stoma paste. reapplied the ostomy belt. pt tolerated well.
--- NOTE | 2021-07-05 14:08 | NURSING ---
Remains in contact precautions. All care performed in room.
[2021-07-05 16:00] VITALS: BP 161/65; PULSE 77; RESP 17; TEMP 36.8; O2SAT 94
[2021-07-05 17:45] VITALS: PULSE 77
[2021-07-05] MEDS: Acetaminophen 500 MG Tablet 1000 MG PO (21:43)
[2021-07-05] MEDS: Atorvastatin Calcium 40 MG Tablet PO (21:43)
[2021-07-05] MEDS: Gabapentin 300 MG Capsule PO (21:43)
[2021-07-05] MEDS: MELATONIN 3 MG TABLET PO (21:43)
[2021-07-06] VITALS (7 sets, daily range): BP systolic 103–152; BP diastolic 64–69; PULSE 68–91; RESP 16–18; TEMP 36.5; O2SAT 94–95
[2021-07-06] MEDS: Metoprolol Tartrate 50 MG Tablet PO ×5 (00:38→23:54)
[2021-07-06] MEDS: Nystatin Powder 15gm Bottle 1 APPLIC TOPICAL ×2 (06:11→17:16)
[2021-07-06] MEDS: Senna/Docusate Sodium 1 Tablet PO ×2 (06:39→17:15)
[2021-07-06] MEDS: APIXABAN 5 MG TABLET PO ×2 (06:39→17:14)
[2021-07-06] MEDS: Lisinopril 5 MG Tablet PO (06:39)
[2021-07-06] MEDS: Amiodarone 200 MG Tablet 400 MG PO (07:56)
[2021-07-06] MEDS: Multivitamins,Therapeutic Tablet 1 TABLET PO (07:56)
[2021-07-06] MEDS: Ondansetron 4 MG/2 ML Vial IV (17:05)
--- NOTE | 2021-07-06 18:25 | NURSING ---
Patient complained of bladder feeling full throughout shift. Irrigated cyr catheter, emptied bag and watched to see if urine was entering bag. Cloudy yellow urine noted in drainage bag. Bladder scanned patient for >29ml urine. This nurse checked bag later in shift and drainage bag continues to fill.
[2021-07-06] MEDS: Acetaminophen 500 MG Tablet 1000 MG PO (21:27)
[2021-07-06] MEDS: Atorvastatin Calcium 40 MG Tablet PO (21:28)
[2021-07-06] MEDS: MELATONIN 3 MG TABLET PO (21:28)
[2021-07-07 05:56] VITALS: BP 148/62; PULSE 72
[2021-07-07] MEDS: Metoprolol Tartrate 50 MG Tablet PO ×3 (05:56→17:03)
[2021-07-07] MEDS: 0.9 % NaCl (Sterile) Posiflush 10 mL IV ×2 (05:58→17:04)
[2021-07-07 06:03] LABS: Hematocrit 25.3 % (37-47); Hemoglobin 7.7 g/dL (12.0-15.0); Mean Corp Hgb Conc 30.4 g/dL (32-36); Mean Corpuscular Hgb 25.2 pg (27.0-32.0); Mean Platelet Vol. 9.2 fl (6.2-12.0); POSITIVE COUNT YES; POSITIVE MORPHOLOGY YES; Platelet Count 276 K/mm3 (150-450); RBC Distribution Width CV 24.7 % (11.6-14.6); RBC Distribution Width SD 68.5 fl (35.1-43.9); Red Blood Count 3.05 M/mm3 (4.2-5.4); White Blood Count 3.1 K/mm3 (4.4-11.0)
[2021-07-07 06:15] LABS: Differential Indicated MANUAL DIFF
[2021-07-07 06:28] LABS: Anion Gap 4 (5-15); BUN 5 mg/dL (7-18); BUN/Creat Ratio 19.2 RATIO (10-20); Calcium,Total 8.2 mg/dL (8.5-10.1); Chloride 107 mmol/L (98-107); Creatinine, Serum 0.26 mg/dL (0.55-1.02); EST Glomerular Filtration Rate 271 mL/min (>60); Est Glom Filt Rate - Afr Amer 327 mL/min (>60); Estimated Creatinine Clearance 41.33 ml/min; Glucose 97 mg/dL (74-106); Potassium 3.7 mmol/L (3.5-5.1); Sodium Level 140 mmol/L (136-145)
[2021-07-07] MEDS: Senna/Docusate Sodium 1 Tablet PO ×2 (06:29→17:03)
[2021-07-07] MEDS: Lisinopril 5 MG Tablet PO (06:29)
[2021-07-07] MEDS: Nystatin Powder 15gm Bottle 1 APPLIC TOPICAL ×2 (06:29→17:03)
[2021-07-07] MEDS: APIXABAN 5 MG TABLET PO ×2 (06:29→17:03)
[2021-07-07 07:00] LABS: Total Cells Counted 100 (MANUAL DIFF)
[2021-07-07 07:11] LABS: Eosinophil 4 % (0-5); Lymphocyte 33 % (19-41); Metamyelocyte 2 % (0-1); Monocyte 20 % (0-10); Myelocyte 1 % (0-0); Neutrophil-Band 1 % (0-5); Neutrophil-Segmented 39 % (47-70); Nucleated Red Bld Cells,Manual 2 % (0-5); Platelet Estimate ADEQUATE (ADEQ)
[2021-07-07 07:13] LABS: Anisocytosis 1+; Hypochromasia 2+; Macrocytosis 1+; Polychromasia RARE
[2021-07-07 07:14] LABS: Microcytosis RARE
[2021-07-07 07:15] LABS: Absolute Lymphocyte Count 1.01 X10^3/uL (0.83-4.51); Absolute Neutrophil Count 1.2 X10^3/uL (2.0-7.7); Lymphocyte # 1.01 X10^3/ul (0.83-4.51); Neutrophil # 1.23 X10^3/uL (2.7-7.7)
[2021-07-07] MEDS: Amiodarone 200 MG Tablet 400 MG PO (08:41)
[2021-07-07] MEDS: Multivitamins,Therapeutic Tablet 1 TABLET PO (08:42)
--- NOTE | 2021-07-07 09:15 | NURSING ---
HGB 7.7 THIS AM, DR MCDANIEL AWARE AND ORDERED 2 UNITS BLOOD. PT WILL GO [facility]ION [facility], SPOKE WITH RN. WILL CALL THEM WHEN BLOOD READY. PT UPDATED.
--- NOTE | 2021-07-07 10:35 | NURSING ---
Addendum entered by Sandra Robertson 07/07/21 16:10: R' BACK TO UNIT FROM BLOOD TRANSFUSION. Original Note: R' LEAVING UNIT AT THIS TIME FOR BLOOD TRANSFUSION.
--- NOTE | 2021-07-07 10:48 | NURSING ---
PT TAKEN TO INFUSION SUITE ROOM 16 VIA BED.
--- NOTE | 2021-07-07 11:36 | WOUNDNOTE ---
Colostomy appliance changed. peristomal skin remains intact. reapplied the ostomy belt
--- NOTE | 2021-07-07 11:41 | WOUNDNOTE ---
Pt states they have not decided yet on a discharge date. plan to show and daughters how to change the ostomy appliance again. had shown them previously as well.
[2021-07-07 11:51] VITALS: PULSE 71
[2021-07-07 14:45] LABS: Pathologist Review Reviewed
[2021-07-07 16:12] VITALS: BP 155/67; PULSE 74; RESP 18; TEMP 37.2; O2SAT 92
[2021-07-07 17:03] VITALS: PULSE 74
--- NOTE | 2021-07-07 18:32 | NURSING ---
CARE PROVIDED IN ROOM D/T CONTACT ISOLATION.
[2021-07-07 20:30] VITALS: PULSE 84; RESP 14; O2SAT 93
[2021-07-07] MEDS: MELATONIN 3 MG TABLET PO (21:27)
[2021-07-07] MEDS: Acetaminophen 500 MG Tablet 1000 MG PO (21:27)
[2021-07-07] MEDS: Atorvastatin Calcium 40 MG Tablet PO (21:27)
[2021-07-08] VITALS (7 sets, daily range): BP systolic 148–169; BP diastolic 65–76; PULSE 68–84; RESP 16; TEMP 36.8; O2SAT 95
[2021-07-08] MEDS: Metoprolol Tartrate 50 MG Tablet PO ×5 (00:28→23:52)
[2021-07-08] MEDS: 0.9 % NaCl (Sterile) Posiflush 10 mL IV ×2 (06:01→11:58)
[2021-07-08] MEDS: Senna/Docusate Sodium 1 Tablet PO ×2 (06:55→17:40)
[2021-07-08] MEDS: APIXABAN 5 MG TABLET PO ×2 (06:55→17:40)
[2021-07-08] MEDS: Lisinopril 5 MG Tablet PO (06:55)
[2021-07-08 06:56] LABS: Hematocrit 35.2 % (37-47); Hemoglobin 11.2 g/dL (12.0-15.0)
[2021-07-08] MEDS: Multivitamins,Therapeutic Tablet 1 TABLET PO (08:59)
[2021-07-08] MEDS: Amiodarone 200 MG Tablet 400 MG PO (08:59)
[2021-07-08] MEDS: Nystatin Powder 15gm Bottle 1 APPLIC TOPICAL ×2 (10:48→17:42)
[2021-07-08] MEDS: MELATONIN 3 MG TABLET PO (21:26)
[2021-07-08] MEDS: Acetaminophen 500 MG Tablet 1000 MG PO (21:26)
[2021-07-08] MEDS: Atorvastatin Calcium 40 MG Tablet PO (21:26)
[2021-07-09] VITALS (7 sets, daily range): BP systolic 158–186; BP diastolic 71–83; PULSE 70–78; RESP 15–20; TEMP 36.2–37.7; O2SAT 93–97
[2021-07-09] MEDS: Metoprolol Tartrate 50 MG Tablet PO ×3 (06:17→17:30)
[2021-07-09] MEDS: Lisinopril 5 MG Tablet PO (06:17)
[2021-07-09] MEDS: APIXABAN 5 MG TABLET PO ×2 (06:17→17:30)
[2021-07-09] MEDS: Senna/Docusate Sodium 1 Tablet PO ×2 (06:17→17:30)
[2021-07-09] MEDS: Nystatin Powder 15gm Bottle 1 APPLIC TOPICAL ×2 (06:19→17:30)
[2021-07-09] MEDS: Multivitamins,Therapeutic Tablet 1 TABLET PO (07:53)
[2021-07-09] MEDS: Amiodarone 200 MG Tablet 400 MG PO (07:53)
--- NOTE | 2021-07-09 18:31 | NURSING ---
Addendum entered by Ann Marie Bell 07/09/21 18:36: Urine noted to be dark yellow. Original Note: Spouse came to nurses' station saying patient not feeling well and looks flushed. RN into examine. B/P 186/71, HR 78 reg, oral 99.0, resp 20. Patient c/o feeling off. Cheeks noted to be red. Patient reported cold chill earlier today. Dr. Menendez notified N.O. Lisinopril 10mg X1 now, stat CBC and BMP, and increase daily lisinopril to 10mg/day (was 5mg).
[2021-07-09] MEDS: Lisinopril 10 MG Tablet PO (18:42)
[2021-07-09 18:58] LABS: Absolute Lymphocyte Count 0.94 X10^3/uL (0.83-4.51); Absolute Neutrophil Count 1.4 X10^3/uL (2.0-7.7); Basophil# 0.02 X10^3/uL; Basophil% 0.6 % (0-1); Eosinophil# 0.05 X10^3/uL; Eosinophils% 1.4 % (0-5); Hematocrit 36.3 % (37-47); Hemoglobin 11.3 g/dL (12.0-15.0); Lymphocyte # 0.94 X10^3/ul (0.83-4.51); Lymphocyte % 26.8 % (19-41); Mean Corp Hgb Conc 31.1 g/dL (32-36); Mean Corpuscular Hgb 26.5 pg (27.0-32.0); Mean Corpuscular Volume 85.2 fL (81-99); Mean Platelet Vol. 9.3 fl (6.2-12.0); Monocyte# 0.96 X10^3/uL; Monocyte% 27.4 % (0-10); NRBC Flagged by Analyzer 0 % (0-5); Neutrophil # 1.41 X10^3/uL (2.7-7.7); Neutrophil % 40.1 % (47-70); POSITIVE MORPHOLOGY YES; Platelet Count 323 K/mm3 (150-450); RBC Distribution Width CV 23.8 % (11.6-14.6); RBC Distribution Width SD 71.3 fl (35.1-43.9); Red Blood Count 4.26 M/mm3 (4.2-5.4); White Blood Count 3.5 K/mm3 (4.4-11.0)
[2021-07-09 19:00] LABS: Differential Indicated SCAN CRITERIA MET
[2021-07-09 19:13] LABS: Anion Gap 4 (5-15); BUN 5 mg/dL (7-18); BUN/Creat Ratio 21.5 RATIO (10-20); Calcium,Total 8.5 mg/dL (8.5-10.1); Chloride 104 mmol/L (98-107); Creatinine, Serum 0.23 mg/dL (0.55-1.02); EST Glomerular Filtration Rate 307 mL/min (>60); Est Glom Filt Rate - Afr Amer 372 mL/min (>60); Estimated Creatinine Clearance 41.33 ml/min; Glucose 102 mg/dL (74-106); Potassium 3.4 mmol/L (3.5-5.1); Sodium Level 137 mmol/L (136-145)
[2021-07-09 19:16] LABS: Anisocytosis 1+; Differential Comment SCANNED
[2021-07-09] MEDS: Atorvastatin Calcium 40 MG Tablet PO (21:50)
[2021-07-09] MEDS: Acetaminophen 500 MG Tablet 1000 MG PO (21:50)
[2021-07-09] MEDS: MELATONIN 3 MG TABLET PO (21:50)
--- NOTE | 2021-07-09 23:43 | NURSING ---
Updated Dr. Menendez on potassium level and evening vitals including low grade temp and elevated BP. Verbal order to start patient on potassium.
[2021-07-10] VITALS (9 sets, daily range): BP systolic 146–193; BP diastolic 63–91; PULSE 67–91; RESP 18; TEMP 36.7–36.9; O2SAT 94–95
[2021-07-10] MEDS: Potassium Chloride Oral Tablet 20 MEQ PO ×2 (00:06→11:09)
[2021-07-10] MEDS: Metoprolol Tartrate 50 MG Tablet PO ×4 (00:07→17:31)
[2021-07-10] MEDS: Ondansetron 4 MG/2 ML Vial IV ×3 (00:15→17:35)
[2021-07-10] MEDS: APIXABAN 5 MG TABLET PO ×2 (07:07→17:31)
[2021-07-10] MEDS: Senna/Docusate Sodium 1 Tablet PO ×2 (07:08→17:31)
[2021-07-10] MEDS: Nystatin Powder 15gm Bottle 1 APPLIC TOPICAL ×2 (07:10→17:32)
[2021-07-10] MEDS: Lisinopril 10 MG Tablet PO (07:10)
[2021-07-10] MEDS: cloNIDine HCl 0.1 MG Tablet PO ×2 (08:13→17:31)
[2021-07-10] MEDS: Amiodarone 200 MG Tablet 400 MG PO (08:13)
--- NOTE | 2021-07-10 08:16 | NURSING ---
Addendum entered by Nancy Buitrago 07/10/21 10:48: BP rechecked at 0949 163/83. remains afebrile. Original Note: BP ELEVATED, DR MCDANIEL UPDATED, NEW ORDER FOR CLONIDINE. PT CONCERNED THAT SHE HAVING BLOOD TRANSFUSION REACTION.
--- NOTE | 2021-07-10 09:46 | NURSING ---
message left for Dr Polo nurse regarding pt requesting to cancel appt today @ 10 am d/t not feeling well. had elevated temp & BP overnight. awaiting return call.
[2021-07-10] MEDS: Multivitamins,Therapeutic Tablet 1 TABLET PO (11:08)
[2021-07-10] MEDS: 0.9 % NaCl (Sterile) Posiflush 10 mL IV (11:17)
--- NOTE | 2021-07-10 14:38 | WOUNDNOTE ---
wound photo: sacrum
--- NOTE | 2021-07-10 14:44 | WOUNDNOTE ---
Colostomy appliance changed with and 3 daughters. All questions answered. script for supplies given to who wants to check to see if there is a supply store in [place] or a pharmacy there that would order the supplies for them. there is no discharge date at this time. family is just getting prepared for that time.
--- NOTE | 2021-07-10 16:52 | CASEMGMT ---
Social Work Family and pt present in room. Spoke with all to follow up on wound care training and DC plans. All family and pt agree pt is not ready to DC yet, but feeling more comfortable with caring for wounds, etc. All would like pt to be more stable before DCing home. SW to follow up the following week to check in on DC plans. stated they need the hospital bed to be in place at the home prior to pt DC. Encouraged to start getting that process started. SW to continue to follow. Mikki Burleson, RITA RAMIREZW
[2021-07-10] MEDS: Acetaminophen 500 MG Tablet 1000 MG PO (21:38)
[2021-07-10] MEDS: Atorvastatin Calcium 40 MG Tablet PO (21:38)
[2021-07-10] MEDS: MELATONIN 3 MG TABLET PO (21:39)
[2021-07-11 00:20] VITALS: BP 108/60; PULSE 74
[2021-07-11] MEDS: Metoprolol Tartrate 50 MG Tablet PO ×4 (00:20→18:16)
[2021-07-11 06:02] LABS: Anion Gap 3 (5-15); BUN 6 mg/dL (7-18); BUN/Creat Ratio 24.9 RATIO (10-20); Calcium,Total 8.5 mg/dL (8.5-10.1); Chloride 105 mmol/L (98-107); Creatinine, Serum 0.24 mg/dL (0.55-1.02); EST Glomerular Filtration Rate 295 mL/min (>60); Est Glom Filt Rate - Afr Amer 357 mL/min (>60); Estimated Creatinine Clearance 41.33 ml/min; Glucose 101 mg/dL (74-106); Sodium Level 136 mmol/L (136-145)
[2021-07-11 06:11] VITALS: BP 134/64; PULSE 68
[2021-07-11] MEDS: cloNIDine HCl 0.1 MG Tablet PO ×2 (06:11→18:16)
[2021-07-11] MEDS: APIXABAN 5 MG TABLET PO ×2 (06:11→18:16)
[2021-07-11] MEDS: Lisinopril 10 MG Tablet PO (06:12)
[2021-07-11] MEDS: Nystatin Powder 15gm Bottle 1 APPLIC TOPICAL ×2 (06:12→18:16)
[2021-07-11] MEDS: Senna/Docusate Sodium 1 Tablet PO (06:12)
[2021-07-11] MEDS: Potassium Chloride Oral Tablet 20 MEQ PO (07:51)
[2021-07-11] MEDS: Amiodarone 200 MG Tablet 400 MG PO (07:51)
[2021-07-11] MEDS: Multivitamins,Therapeutic Tablet 1 TABLET PO (07:51)
[2021-07-11 10:00] VITALS: PULSE 69; RESP 18; O2SAT 97
[2021-07-11 12:23] VITALS: PULSE 67
[2021-07-11 12:28] VITALS: BP 138/50; PULSE 67; RESP 18; TEMP 36.6; O2SAT 97
[2021-07-11] MEDS: 0.9 % NaCl (Sterile) Posiflush 10 mL IV (16:56)
[2021-07-11] MEDS: Ondansetron 4 MG/2 ML Vial IV (16:56)
[2021-07-11 18:16] VITALS: PULSE 82
[2021-07-11] MEDS: Atorvastatin Calcium 40 MG Tablet PO (21:44)
[2021-07-11] MEDS: Acetaminophen 500 MG Tablet 1000 MG PO (21:44)
[2021-07-11] MEDS: MELATONIN 3 MG TABLET PO (21:45)
[2021-07-12] VITALS (9 sets, daily range): BP systolic 122–179; BP diastolic 61–94; PULSE 69–79; RESP 15–16; TEMP 36.6–38.3; O2SAT 92–96
[2021-07-12] MEDS: Metoprolol Tartrate 50 MG Tablet PO ×4 (00:31→18:36)
[2021-07-12] MEDS: cloNIDine HCl 0.1 MG Tablet PO ×2 (06:55→18:36)
[2021-07-12] MEDS: APIXABAN 5 MG TABLET PO ×2 (06:57→18:36)
[2021-07-12] MEDS: Lisinopril 10 MG Tablet PO (06:57)
[2021-07-12] MEDS: Nystatin Powder 15gm Bottle 1 APPLIC TOPICAL ×2 (06:58→18:37)
[2021-07-12] MEDS: Amiodarone 200 MG Tablet 400 MG PO (08:59)
[2021-07-12] MEDS: Potassium Chloride Oral Tablet 20 MEQ PO (08:59)
[2021-07-12] MEDS: Multivitamins,Therapeutic Tablet 1 TABLET PO (08:59)
[2021-07-12] MEDS: 0.9 % NaCl (Sterile) Posiflush 10 mL IV ×2 (12:18→21:40)
[2021-07-12] MEDS: Ondansetron 4 MG/2 ML Vial IV ×2 (12:18→21:40)
--- NOTE | 2021-07-12 14:00 | WOUNDNOTE ---
Barbra Plummer, EMBEDDED NURSE in to assess the sacral wound during VAC change. Pt states not feeling the best today. skin warm to touch. temp was checked and is currently 101. notified PADMINI Ramirez.
--- NOTE | 2021-07-12 14:09 | NURSING ---
Resident has been complaining of chilling today. Nausea and was medicated with Zofran. Dr Menendez aware and orders recieved. Spouse updated.
--- NOTE | 2021-07-12 14:12 | PCM.PN.SRG ---
Subjective Subjective Postop from Excision necrotic sacral pressure sore, Stage IV, with partial ostectomy for osteomyelitis on 05/15/21. Objective Data Objective Data Vital Signs: Vital Signs Temp Pulse Resp BP Pulse Ox 101 F H 69 16 179/69 H 96 07/12/21 14:03 07/12/21 14:03 07/12/21 06:53 07/12/21 14:03 07/12/21 06:53 Oxygen Delivery Method Room Air Weight: 171 lb Body Mass Index (BMI) 29.6 Intake & Output: Intake and Output for Last 24 Hours 07/10/21 07/11/21 07/12/21 23:59 23:59 23:59 Intake Total 0 / 0 600 / 600 240 / 240 Output Total 2450 / 2450 1400 / 1400 1650 / 1650 Balance -2450 / -2450 -800 / -800 -1410 / -1410 Medical Nutrition Assessment Dietitian: Malnutrition Criteria Met Start: 06/21/21 15:00 Freq: Status: Active Protocol: Document 06/21/21 15:00 [facility] (Rec: 06/21/21 15:00 [facility] [id number]) Nutrition Malnutrition Evidence of Malnutrition Exists Yes Malnutrition (severe): Chronic Evidenced By Suboptimal Energy Intake ( Moderate),Weight Loss (Severe) ,Physical Changes (Moderate) Intake Problem Increased Nutrient Needs (specify) Etiology protein related to wound healing needs Signs/Symptoms as evidenced by coccyx PI w/ wound vac and requiring oral nutrition supplements to help w/ wound healing - res no longer wanting Shaan bid d/t feels it gives her n/v - agreeable to ensure clear with meals. Status Active Problem Clinical Problem Chronic Disease or Condition Related Malnutrition Etiology related to inability to consume adequate nutrition to meet est nutritional needs for wt maintenance and wound healing Signs/Symptoms as evidenced by variable po intake at meals and 9.1% wt loss x 3 months - res also w/ muscle/fat loss (arms/legs) Status Active Problem Recommendation Dietitian Recommendations/Changes Will continue order to 8 oz hector ensure clear w/ meals Will continue Regular diet with small portions Lab / Micro Data Result Diagrams: 07/09/21 18:15 07/11/21 05:25 Physical Exam Const oriented x3 Constitutional Narrative: Patient is complains of having the chills Resp normal respiratory effort Cardio regular rate GI soft to palpation and non-tender Extremity Extremity Narrative: Capillary refill <3 seconds. Skin Wound Narrative: Sacral ulcer tissue is beefy pink. There is coccyx bone exposure and protrusion from the underlying tissue. Neuro oriented x3 and CN's II-XII intact bilaterally Assessment & Plan Assessment/Plan (1) Pressure ulcer of sacral region, stage 4: (2) Debility: (3) Colostomy in place: (4) Diffuse large B cell lymphoma: QUALIFIERS: Lymphoma site: unspecified region Qualified Code(s): C83.30 - Diffuse large B-cell lymphoma, unspecified site PLAN: Sacral ulcer is stable. Tissue is beefy pink. She does have coccyx bone exposure with protrusion form the underlying tissue. Wound VAC is change 3 times per week. There is an odor present today with the VAC dressing change. Will continue to monitor this, if the odor worsens or does not improve, if she develops a fever or other signs of infection, then we will consider doing a wound culture. he has completed her radiation treatments for her diffuse large B-cell lymphoma. Operative tissue culture positive for Escherichia coli, Klebsiella, Vanc. Resist. E. gallinarum, Vanc. Resist. E. faecalis. Operative bone culture positive for Escherichia coli, Vanc. Resist. E. faecalis, Vanc. Resist. E. gallinarum. She completed Meropenem and Linezolid. Prealbumin 4.9 on 05/17. Encouraged increase protein intake to help with wound healing. She is ordered Shaan protein supplements twice daily. When she is discharged home, she will follow up at the wound healing center for management of her wound. Charges/Coding Procedures Integumentary [id number]: [id number] Global Visit
[2021-07-12] MEDS: Acetaminophen 500 MG Tablet 1000 MG PO ×2 (14:31→21:35)
--- NOTE | 2021-07-12 15:13 | NURSING ---
Taken to radiology for ordered xrays.
--- NOTE | 2021-07-12 15:15 | RAD_ITS ---
STUDY: X-RAY - ABDOMEN/PELVIS REASON FOR EXAM: Female, 75 years old. elevated temperature TECHNIQUE: AP supine and decubitus views of the abdomen and pelvis. COMPARISON: 06/01/2021 FINDINGS: Fibrotic changes in the lung bases. Nonspecific, nondilated bowel gas pattern with colonic gas confirmed. There is no demonstrated free abdominal air. The visualized liver, spleen and kidneys are grossly normal in size and morphology. Normal soft tissue structures. There are diffuse degenerative changes of the visualized lumbar spine. RAD/Abd Decub and/or Erect(Portabl IMPRESSION: Nonobstructive bowel gas pattern. Electronically Signed: Bartolo Krishna MD ([place]) at 15:56 EDT , Service support ,
--- NOTE | 2021-07-12 15:30 | RAD_ITS ---
STUDY: X-RAY CHEST REASON FOR EXAM: Female, 75 years old. elevated temperature TECHNIQUE: AP COMPARISON: 06/16/2021 FINDINGS: Right arm PICC present with tip terminating in the proximal SVC. Sternal wires and mediastinal surgical clips compatible with prior CABG. Fibrotic changes in the lung bases. No airspace consolidation. There is no demonstrated pleural abnormality. Normal size heart. Normal mediastinum and leoncio. Normal visualized pulmonary arteries. There is atherosclerotic calcification of the aortic arch with tortuosity. There is demineralization of the osseous structures. Normal visualized ribs, clavicles, and shoulders. There is no demonstrated abnormality of the visualized soft tissue structures of the upper abdomen. RAD/Chest 1 View (Portable) IMPRESSION: No airspace consolidation or pleural effusion. Electronically Signed: Bartolo Krishna MD ([place]) at 15:54 EDT , Service support ,
[2021-07-12 16:22] LABS: Mucous, Urine 0 SEEN /hpf (<or=2+); Squamous Epithelial Cells - UA 0 SEEN /hpf (5-10)
[2021-07-12 16:38] LABS: Color, Urine Yellow (Yellow); Glucose, Dipstick Normal (Normal); Ketone-Dipstick Negative (Negative); Leukocyte Esterase-Dipstick 500 /ul (Negative); Nitrite-Dipstick Positive (Negative); Occult Blood-Urine 25 /ul (Negative); Protein-Dipstick 30 mg/dl (Negative); Specific Gravity, Urine 1.005 (1.002-1.030); Urine Bilirubin Dipstick Negative (Negative); Urine Clarity Sl. Cloudy (Clear); Urine Urobilinogen Normal (Normal)
[2021-07-12 16:46] LABS: Absolute Lymphocyte Count 1.14 X10^3/uL (0.83-4.51); Absolute Neutrophil Count 0.6 X10^3/uL (2.0-7.7); Basophil# 0.02 X10^3/uL; Basophil% 0.6 % (0-1); Eosinophil# 0.08 X10^3/uL; Eosinophils% 2.4 % (0-5); Hematocrit 34.2 % (37-47); Hemoglobin 10.6 g/dL (12.0-15.0); Lymphocyte # 1.14 X10^3/ul (0.83-4.51); Lymphocyte % 34.3 % (19-41); Mean Platelet Vol. 8.8 fl (6.2-12.0); Monocyte% 42.2 % (0-10); NRBC Flagged by Analyzer 0 % (0-5); Neutrophil # 0.61 X10^3/uL (2.7-7.7); Neutrophil % 18.4 % (47-70); POSITIVE DIFFERENTIAL YES; POSITIVE MORPHOLOGY YES; Platelet Count 291 K/mm3 (150-450); RBC Distribution Width CV 23.2 % (11.6-14.6); RBC Distribution Width SD 69.8 fl (35.1-43.9); Red Blood Count 4.07 M/mm3 (4.2-5.4); White Blood Count 3.3 K/mm3 (4.4-11.0)
[2021-07-12 16:48] LABS: Differential Indicated SCAN CRITERIA MET
[2021-07-12 16:58] LABS: Bacteria 1+ /hpf (None Seen); Red Blood Cells-Urine 0-5 SEEN /hpf (0-5); White Blood Cells 25-50 SEEN /hpf (0-5)
[2021-07-12 17:25] LABS: Anion Gap 3 (5-15); BUN 7 mg/dL (7-18); BUN/Creat Ratio 34.7 RATIO (10-20); Calcium,Total 8.5 mg/dL (8.5-10.1); Chloride 103 mmol/L (98-107); EST Glomerular Filtration Rate 362 mL/min (>60); Est Glom Filt Rate - Afr Amer 438 mL/min (>60); Estimated Creatinine Clearance 41.33 ml/min; Glucose 105 mg/dL (74-106); Potassium 4.4 mmol/L (3.5-5.1); Sodium Level 132 mmol/L (136-145)
[2021-07-12] MEDS: Atorvastatin Calcium 40 MG Tablet PO (21:34)
[2021-07-12] MEDS: CEFUROXIME AXETIL 250 MG TABLET 500 MG PO (21:35)
[2021-07-12] MEDS: MELATONIN 3 MG TABLET PO (21:35)
[2021-07-13] VITALS (7 sets, daily range): BP systolic 103–129; BP diastolic 49–65; PULSE 68–76; RESP 18; TEMP 36.9–37.2; O2SAT 96
[2021-07-13] MEDS: Metoprolol Tartrate 50 MG Tablet PO ×5 (00:34→23:30)
[2021-07-13] MEDS: CEFUROXIME AXETIL 250 MG TABLET 500 MG PO ×2 (06:11→17:14)
[2021-07-13] MEDS: Lisinopril 10 MG Tablet PO (06:12)
[2021-07-13] MEDS: APIXABAN 5 MG TABLET PO ×2 (06:13→17:15)
[2021-07-13] MEDS: Nystatin Powder 15gm Bottle 1 APPLIC TOPICAL ×2 (06:13→17:18)
[2021-07-13] MEDS: Ondansetron 4 MG/2 ML Vial IV ×3 (06:26→19:05)
[2021-07-13] MEDS: 0.9 % NaCl (Sterile) Posiflush 10 mL IV ×3 (06:27→19:06)
[2021-07-13] MEDS: Multivitamins,Therapeutic Tablet 1 TABLET PO (08:52)
[2021-07-13] MEDS: Potassium Chloride Oral Tablet 20 MEQ PO (08:52)
[2021-07-13] MEDS: Amiodarone 200 MG Tablet 400 MG PO (08:54)
--- NOTE | 2021-07-13 11:31 | WOUNDNOTE ---
Colostomy appliance changed. stoma sits slightly below the skin level. peristomal skin is intact. skin cleansed with warm water. pat dry. applied a new 2 piece Leobardo appliance with a small amount of stoma paste. reapplied the ostomy belt. pt tolerated well. pt states she is feeling much better today. no further fevers noted.
[2021-07-13] MEDS: Senna/Docusate Sodium 1 Tablet PO (17:14)
[2021-07-13] MEDS: Atorvastatin Calcium 40 MG Tablet PO (21:43)
[2021-07-13] MEDS: Acetaminophen 500 MG Tablet 1000 MG PO (21:43)
[2021-07-13] MEDS: MELATONIN 3 MG TABLET PO (21:43)
[2021-07-14 05:58] LABS: Absolute Lymphocyte Count 1.43 X10^3/uL (0.83-4.51); Absolute Neutrophil Count 2.1 X10^3/uL (2.0-7.7); Basophil# 0.02 X10^3/uL; Basophil% 0.4 % (0-1); Eosinophil# 0.12 X10^3/uL; Eosinophils% 2.2 % (0-5); Hematocrit 33.1 % (37-47); Hemoglobin 10.3 g/dL (12.0-15.0); Lymphocyte # 1.43 X10^3/ul (0.83-4.51); Lymphocyte % 26.3 % (19-41); Mean Corp Hgb Conc 31.1 g/dL (32-36); Mean Corpuscular Hgb 26.4 pg (27.0-32.0); Mean Corpuscular Volume 84.9 fL (81-99); Mean Platelet Vol. 9.2 fl (6.2-12.0); Monocyte# 1.74 X10^3/uL; NRBC Flagged by Analyzer 0 % (0-5); Neutrophil # 2.05 X10^3/uL (2.7-7.7); Neutrophil % 37.6 % (47-70); POSITIVE DIFFERENTIAL YES; POSITIVE MORPHOLOGY YES; Platelet Count 293 K/mm3 (150-450); RBC Distribution Width CV 23.1 % (11.6-14.6); RBC Distribution Width SD 70.9 fl (35.1-43.9); White Blood Count 5.4 K/mm3 (4.4-11.0)
[2021-07-14 06:04] LABS: Differential Indicated SCAN CRITERIA MET
[2021-07-14 06:20] VITALS: BP 142/67; PULSE 71
[2021-07-14] MEDS: Metoprolol Tartrate 50 MG Tablet PO ×3 (06:20→18:26)
[2021-07-14] MEDS: 0.9 % NaCl (Sterile) Posiflush 10 mL IV ×3 (06:22→18:14)
[2021-07-14] MEDS: Ondansetron 4 MG/2 ML Vial IV (06:23)
[2021-07-14 06:27] LABS: Anion Gap 5 (5-15); BUN 8 mg/dL (7-18); BUN/Creat Ratio 31.9 RATIO (10-20); Calcium,Total 8.5 mg/dL (8.5-10.1); Chloride 102 mmol/L (98-107); Creatinine, Serum 0.25 mg/dL (0.55-1.02); EST Glomerular Filtration Rate 282 mL/min (>60); Est Glom Filt Rate - Afr Amer 341 mL/min (>60); Estimated Creatinine Clearance 41.33 ml/min; Glucose 81 mg/dL (74-106); Potassium 4.3 mmol/L (3.5-5.1); Sodium Level 135 mmol/L (136-145)
[2021-07-14 06:43] LABS: Anisocytosis 2+; Macrocytosis 1+; Microcytosis 1+
[2021-07-14 06:45] LABS: Polychromasia 1+
[2021-07-14] MEDS: CEFUROXIME AXETIL 250 MG TABLET 500 MG PO (06:45)
[2021-07-14] MEDS: Senna/Docusate Sodium 1 Tablet PO ×3 (06:46→18:27)
[2021-07-14] MEDS: Lisinopril 10 MG Tablet PO (06:46)
[2021-07-14] MEDS: APIXABAN 5 MG TABLET PO ×2 (06:46→18:26)
[2021-07-14] MEDS: Nystatin Powder 15gm Bottle 1 APPLIC TOPICAL ×2 (06:48→18:27)
[2021-07-14] MEDS: Amiodarone 200 MG Tablet 400 MG PO (08:04)
[2021-07-14] MEDS: Potassium Chloride Oral Tablet 20 MEQ PO (08:04)
[2021-07-14] MEDS: Multivitamins,Therapeutic Tablet 1 TABLET PO (08:04)
[2021-07-14 11:16] VITALS: BP 147/69; PULSE 76
[2021-07-14 14:59] VITALS: BP 130/67; PULSE 74; RESP 20; TEMP 36.3; O2SAT 94
[2021-07-14 18:26] VITALS: BP 164/76; PULSE 78
[2021-07-14] MEDS: Atorvastatin Calcium 40 MG Tablet PO (22:20)
[2021-07-14] MEDS: Acetaminophen 500 MG Tablet 1000 MG PO (22:20)
[2021-07-14] MEDS: MELATONIN 3 MG TABLET PO (22:20)
[2021-07-15 00:31] VITALS: BP 153/69; PULSE 74
[2021-07-15] MEDS: Metoprolol Tartrate 50 MG Tablet PO ×4 (00:31→17:59)
[2021-07-15 06:16] VITALS: BP 150/81; PULSE 76
[2021-07-15] MEDS: Lisinopril 10 MG Tablet PO (06:16)
[2021-07-15] MEDS: Senna/Docusate Sodium 1 Tablet PO ×2 (06:16→17:59)
[2021-07-15] MEDS: APIXABAN 5 MG TABLET PO ×2 (06:17→17:59)
[2021-07-15] MEDS: 0.9 % NaCl (Sterile) Posiflush 10 mL IV ×2 (06:18→18:01)
[2021-07-15] MEDS: Nystatin Powder 15gm Bottle 1 APPLIC TOPICAL ×2 (06:28→18:12)
[2021-07-15] MEDS: Multivitamins,Therapeutic Tablet 1 TABLET PO (08:15)
[2021-07-15] MEDS: Amiodarone 200 MG Tablet 400 MG PO (08:15)
[2021-07-15] MEDS: Potassium Chloride Oral Tablet 20 MEQ PO (08:15)
[2021-07-15 12:30] VITALS: PULSE 72
[2021-07-15 14:27] VITALS: BP 151/70; PULSE 64; RESP 16; TEMP 36.2; O2SAT 96
[2021-07-15 17:59] VITALS: PULSE 74
[2021-07-15] MEDS: Acetaminophen 500 MG Tablet 1000 MG PO (21:36)
[2021-07-15] MEDS: Atorvastatin Calcium 40 MG Tablet PO (21:37)
[2021-07-15] MEDS: MELATONIN 3 MG TABLET PO (21:37)
[2021-07-16] VITALS (7 sets, daily range): BP systolic 158–168; BP diastolic 68–78; PULSE 70–81; RESP 16–18; TEMP 36.2–36.7; O2SAT 96
[2021-07-16] MEDS: Metoprolol Tartrate 50 MG Tablet PO ×4 (00:45→17:50)
[2021-07-16] MEDS: Senna/Docusate Sodium 1 Tablet PO ×2 (06:19→17:51)
[2021-07-16] MEDS: Lisinopril 10 MG Tablet PO (06:19)
[2021-07-16] MEDS: APIXABAN 5 MG TABLET PO ×2 (06:20→17:50)
[2021-07-16] MEDS: Nystatin Powder 15gm Bottle 1 APPLIC TOPICAL ×2 (06:26→17:52)
[2021-07-16] MEDS: 0.9 % NaCl (Sterile) Posiflush 10 mL IV ×2 (06:26→11:29)
[2021-07-16] MEDS: Multivitamins,Therapeutic Tablet 1 TABLET PO (07:48)
[2021-07-16] MEDS: Amiodarone 200 MG Tablet 400 MG PO (07:48)
[2021-07-16] MEDS: Potassium Chloride Oral Tablet 20 MEQ PO (07:49)
[2021-07-16] MEDS: Acetaminophen 500 MG Tablet 1000 MG PO (21:35)
[2021-07-16] MEDS: Atorvastatin Calcium 40 MG Tablet PO (21:36)
[2021-07-16] MEDS: MELATONIN 3 MG TABLET PO (21:36)
[2021-07-17] VITALS (7 sets, daily range): BP systolic 141–165; BP diastolic 69–83; PULSE 69–81; RESP 16; TEMP 36.1–36.4; O2SAT 95–97
[2021-07-17] MEDS: Metoprolol Tartrate 50 MG Tablet PO ×5 (00:17→23:36)
[2021-07-17] MEDS: Senna/Docusate Sodium 1 Tablet PO ×2 (06:30→17:06)
[2021-07-17] MEDS: APIXABAN 5 MG TABLET PO ×2 (06:31→17:06)
[2021-07-17] MEDS: Lisinopril 10 MG Tablet PO (06:31)
[2021-07-17] MEDS: Nystatin Powder 15gm Bottle 1 APPLIC TOPICAL ×2 (06:33→17:17)
[2021-07-17] MEDS: 0.9 % NaCl (Sterile) Posiflush 10 mL IV ×2 (06:33→17:06)
[2021-07-17] MEDS: Amiodarone 200 MG Tablet 400 MG PO (08:27)
[2021-07-17] MEDS: Multivitamins,Therapeutic Tablet 1 TABLET PO (08:27)
[2021-07-17] MEDS: Potassium Chloride Oral Tablet 20 MEQ PO (08:27)
--- NOTE | 2021-07-17 11:59 | NURSING ---
FLUSHED CONNER CATH WITH 60cc NS PER ORDER AT THIS TIME.
--- NOTE | 2021-07-17 12:15 | WOUNDNOTE ---
wound photo: sacrum
--- NOTE | 2021-07-17 13:09 | NURSING ---
1300 R' OFF UNIT FOR APPT.
--- NOTE | 2021-07-17 14:29 | CASEMGMT ---
Social Work Patient stated on IV ATB with stop date 07/21. Briefly spoke with to inquire about DC plans for shortly after stop date. would consider and speak with family/pt and notify this worker. Updated [facility] Liaison. Will continue to follow. RITA WalkerW
--- NOTE | 2021-07-17 15:05 | NURSING ---
R' BACK FROM APPT WITH DR. YA. CALLED OFFICE TO VERIFY NEXT APPT. SPOKE WITH GINA WHO STATED THERE ARE NO NEW ORDERS. R' WILL HAVE PET SCAN IN AUGUST. IT HAS NOT BEEN SCHEDULED YET, BUT WILL NOTIFY R' WHEN IT'S SCHEDULED. NOTIFIED R' OF THIS.
[2021-07-17] MEDS: Acetaminophen 500 MG Tablet 1000 MG PO (21:39)
[2021-07-17] MEDS: MELATONIN 3 MG TABLET PO (21:39)
[2021-07-17] MEDS: Atorvastatin Calcium 40 MG Tablet PO (21:41)
--- NOTE | 2021-07-17 21:47 | NURSING ---
FLUSHED CONNER AT THIS TIME WITH 60ccNS PER ORDER.
[2021-07-18] VITALS (7 sets, daily range): BP systolic 155–185; BP diastolic 68–86; PULSE 72–77; RESP 16; TEMP 35.9–36.6; O2SAT 95
[2021-07-18] MEDS: Metoprolol Tartrate 50 MG Tablet PO ×3 (06:16→17:50)
[2021-07-18] MEDS: Lisinopril 10 MG Tablet PO (06:16)
[2021-07-18] MEDS: APIXABAN 5 MG TABLET PO ×2 (06:17→17:50)
[2021-07-18] MEDS: Senna/Docusate Sodium 1 Tablet PO ×2 (06:17→17:54)
[2021-07-18] MEDS: Nystatin Powder 15gm Bottle 1 APPLIC TOPICAL ×2 (06:22→17:54)
[2021-07-18] MEDS: Multivitamins,Therapeutic Tablet 1 TABLET PO (08:38)
[2021-07-18] MEDS: Amiodarone 200 MG Tablet 400 MG PO (08:38)
[2021-07-18] MEDS: Potassium Chloride Oral Tablet 20 MEQ PO (08:38)
[2021-07-18] MEDS: Acetaminophen 500 MG Tablet 1000 MG PO (21:37)
[2021-07-18] MEDS: MELATONIN 3 MG TABLET PO (21:37)
[2021-07-18] MEDS: Atorvastatin Calcium 40 MG Tablet PO (21:37)
[2021-07-19] VITALS (10 sets, daily range): BP systolic 147–185; BP diastolic 70–89; PULSE 69–84; RESP 14–18; TEMP 36.2; O2SAT 96
[2021-07-19] MEDS: Metoprolol Tartrate 50 MG Tablet PO ×5 (00:02→23:55)
[2021-07-19] MEDS: 0.9 % NaCl (Sterile) Posiflush 10 mL IV ×3 (06:15→17:46)
[2021-07-19] MEDS: APIXABAN 5 MG TABLET PO ×2 (06:27→17:44)
[2021-07-19] MEDS: Senna/Docusate Sodium 1 Tablet PO ×2 (06:27→17:44)
[2021-07-19] MEDS: Lisinopril 10 MG Tablet PO (06:27)
[2021-07-19] MEDS: Losartan Potassium 100 MG Tablet PO (09:26)
[2021-07-19] MEDS: hydrALAZINE 10 MG Tablet PO ×3 (09:26→21:33)
[2021-07-19] MEDS: Amiodarone 200 MG Tablet 400 MG PO (09:27)
[2021-07-19] MEDS: Potassium Chloride Oral Tablet 20 MEQ PO (09:27)
[2021-07-19] MEDS: Multivitamins,Therapeutic Tablet 1 TABLET PO (09:27)
[2021-07-19] MEDS: Nystatin Powder 15gm Bottle 1 APPLIC TOPICAL ×2 (09:28→15:48)
--- NOTE | 2021-07-19 11:07 | PHA.CONS_ITS ---
Progress Note - Pharmacy Subjective: TCU June Note Objective: Allergies No Known Allergies Allergy (Verified 07/17/21 14:49) Current Medications Generic Name Dose Route Start Last Admin Trade Name Sosa PRN Reason Stop Dose Admin Acetaminophen 1,000 mg 06/08/21 20:09 07/12/21 14:31 Acetaminophen 500 Mg Tablet PO 1,000 mg Q6H PRN PRN Administration Pain Score 1-10 Acetaminophen 1,000 mg 06/12/21 21:30 07/18/21 21:37 Acetaminophen 500 Mg Tablet PO 1,000 mg 2130 AMISH Administration Amiodarone HCl 400 mg 06/12/21 08:00 07/19/21 09:27 Amiodarone 200 Mg Tablet PO 400 mg DAILY@0800 AMISH Administration Apixaban 5 mg 06/08/21 18:00 07/19/21 06:27 Apixaban 5 Mg Tablet PO 5 mg BID AMISH Administration Atorvastatin Calcium 40 mg 06/09/21 22:00 07/18/21 21:37 Atorvastatin Calcium 40 Mg Tablet PO 40 mg QHS AMISH Administration Heparin Sodium (Beef Lung) 50 units 06/08/21 16:19 06/22/21 00:41 Heparin Pf Lock 10 Units/Ml 50 Units/5 Ml Syringe IV 50 units UD PRN Administration PICC Line Heparin Flush Heparin Sodium (Beef Lung) 50 units 06/08/21 21:40 Heparin Pf Lock 10 Units/Ml 50 Units/5 Ml Syringe IV UD PRN PICC Line Heparin Flush Heparin Sodium (Beef Lung) 50 units 06/09/21 07:50 Heparin Pf Lock 10 Units/Ml 50 Units/5 Ml Syringe IV UD PRN PICC Line Heparin Flush Hydralazine HCl 10 mg 07/19/21 08:00 07/19/21 09:26 Hydralazine 10 Mg Tablet PO 10 mg TID AMISH Administration Sodium Chloride 500 mls @ 15 mls/hr 07/07/21 08:21 IV PRN PRN Blood Transfusion Cefepime HCl 2 gm/ Sodium 100 mls @ 200 mls/hr 07/14/21 07:55 07/19/21 07:24 Chloride IV 07/21/21 07:56 Infused Q12 AMISH Infusion Sodium Chloride 250 mls @ 15 mls/hr 07/14/21 08:08 07/17/21 17:57 IV 0 mls/hr .[id number] PRN Infusion Saline Flush Losartan Potassium 100 mg 07/20/21 06:00 Losartan Potassium 100 Mg Tablet PO DAILY [facility] Melatonin 3 mg 06/08/21 22:00 07/18/21 21:37 Melatonin 3 Mg Tablet PO 3 mg QHS AMISH Administration Metoprolol Tartrate 50 mg 06/08/21 18:00 07/19/21 06:10 Metoprolol Tartrate 50 Mg Tablet PO 50 mg Q6 AMISH Administration Multivitamins 1 tablet 06/09/21 08:00 07/19/21 09:27 [facility]ivitamins,The[facility] Administration Nystatin 1 applic 06/18/21 06:00 07/19/21 09:28 Nystatin Powder 15gm Bottle TOPICAL 1 applic BID AMISH Administration Protocol Ondansetron HCl 4 mg 06/12/21 17:46 07/14/21 06:23 Ondansetron 4 Mg/2 Ml Vial IV 4 mg Q6H PRN PRN Administration NAUSEA Potassium Chloride 20 meq 07/09/21 21:44 07/19/21 09:27 Potassium Chloride Oral Tablet 20 Meq [facility] Administration Prochlorperazine Maleate 10 mg 06/08/21 16:23 06/26/21 18:13 Prochlorperazine 5 Mg Tablet PO 10 mg Q6H PRN Administration Nausea Senna/Docusate Sodium 1 tablet 06/16/21 07:45 07/19/21 06:27 Senna/Docusate Sodium 1 Tablet PO 1 tablet BID AMISH Administration Sodium Chloride 10 - 40 ml 06/08/21 16:19 07/19/21 07:13 0.9 % Nacl (Sterile) Posiflush 10 Ml IV 20 ml UD PRN Administration Port access or dressing change Sodium Chloride 10 - 40 ml 06/08/21 16:19 0.9% Saline Lock 10 Ml Syringe IV UD PRN Open End PICC Flush Sodium Chloride 10 - 40 ml 06/08/21 21:40 0.9% Saline Lock 10 Ml Syringe IV UD PRN Open End PICC Flush Sodium Chloride 10 - 40 ml 06/08/21 21:40 0.9 % Nacl (Sterile) Posiflush 10 Ml IV UD PRN Port access or dressing change Sodium Chloride 10 - 40 ml 06/09/21 07:50 0.9% Saline Lock 10 Ml Syringe IV UD PRN Open End PICC Flush Sodium Chloride 10 - 40 ml 06/09/21 07:50 0.9 % Nacl (Sterile) Posiflush 10 Ml IV UD PRN Port access or dressing change Problem List (Last Updated 06/08/21 @ 19:[address] Jarod Menendez MD) Debility (Acute) Colostomy in place (Acute) Status post laparoscopic-assisted sigmoidectomy (Acute) Debility (Acute) Pressure ulcer of sacral region, stage 4 (Acute) Osteomyelitis of pelvis (Acute) Epidural mass (Acute) Paraplegia (Acute) Diffuse large B cell lymphoma (Acute) Coronary artery disease (Acute) Vital Signs Temp Pulse Resp BP Pulse Ox 97.8 F 70 16 147/75 H 95 07/18/21 19:32 07/19/21 09:26 07/18/21 19:32 07/19/21 09:26 07/18/21 19:32 Oxygen Delivery Method Room Air Weight: 72.235 kg Body Mass Index (BMI) 29.6 Sodium 135 mmol/L (136-145) L 07/14/21 05:21 Potassium 4.3 mmol/L (3.5-5.1) 07/14/21 05:21 Chloride 102 mmol/L (98-107) 07/14/21 05:21 Carbon Dioxide 28.0 mmol/L (21.0-32.0) 07/14/21 05:21 Anion Gap 5 (5-15) 07/14/21 05:21 BUN 8 mg/dL (7-18) 07/14/21 05:21 Creatinine 0.25 mg/dL (0.55-1.02) L 07/14/21 05:21 Est GFR (MDRD) Af Amer 341 mL/min (>60) 07/14/21 05:21 Est GFR (MDRD) Non-Af 282 mL/min (>60) 07/14/21 05:21 BUN/Creatinine Ratio 31.9 RATIO (10-20) H 07/14/21 05:21 Glucose 81 mg/dL (74-106) 07/14/21 05:21 Assessment/Plan: 1. Pain: Tylenol 1000mg PO @2130 and acetaminophen 1000mg Q6h PRN Pain 1-10. Please continue to monitor for increased/decreased pain, PRN medication usage. 2. UTI (enterobacter on urine culture): cefepime 2gm IV Q12 thru 07/21. Please continue to monitor for S/S of infection, diarrhea and renal function. 3. Atrial fibrillation/ HLD/CAD: Lopressor 50mg PO Q6h, Lipitor 40mg PO QHS, Eliquis 5mg PO BID, Amiodarone 400mg PO Daily, losartan 100mg PO daily and hydralazine 10mg PO TID. Please continue to monitor BP (last 147/75), pulse (last 70), potassium (last 4.3mmol/L), S/S bleeding/bruising, hemoglobin (last 10.3g/dL), renal function, lipid panel annually or sooner if clinically indicated. 4. Nausea: Compazine 10mg PO Q6h PRN nausea and ondansetron 4MG IV Q6H PRN nausea. Please continue to monitor PRN medication use, QTc interval given patient's cardiac history. 5. Nutrition: MVI 1 tab PO Daily. Please continue to monitor. 6. Insomnia: melatonin 3mg PO QHS. Please continue to monitor for excessive drowsiness. 7. Hypokalemia (potassium = 3.4mmol/L 07/09/21): potassium chloride 20mEq PO DAILYCM. Please continue to monitor potassium levels (last 4.3mmol/L). Psychotropic Medications: None Unnecessary Medications: None Bowel Regimen: senna/docusate 1T PO BID. Please continue to monitor for increased/decreased constipation and/or diarrhea. Date of Note:: 07/19/21
--- NOTE | 2021-07-19 14:55 | WOUNDNOTE ---
Colostomy appliance changed with patient and . Pt may possibly be discharged home next week. working on finding a local pharmacy that can get ostomy supplies rather than having them come via the mail. If unable to find one, states can try to order through [facility]. still awaiting wound VAC approval.
--- NOTE | 2021-07-19 17:34 | CASEMGMT ---
Social Work Spoke with patient and about DC plans. Pt has 's appt on 07/25 and wound nurse would like to change vac on 07/26. IDT and pt/ agreeable to DC 07/27. Requesting [facility]. Referral made for PT/OT/SN. Notified [facility] of DC. Family to transport pt. No other needs. Plan: DC home 07/27, [facility] PT/OT/SN Mikki Burleson, PRODUCT SAFETY ENGINEER [employer]
[2021-07-19] MEDS: MELATONIN 3 MG TABLET PO (21:33)
[2021-07-19] MEDS: Atorvastatin Calcium 40 MG Tablet PO (21:33)
[2021-07-19] MEDS: Acetaminophen 500 MG Tablet 1000 MG PO (21:33)
[2021-07-20] VITALS (9 sets, daily range): BP systolic 126–169; BP diastolic 62–81; PULSE 66–80; RESP 14–18; TEMP 36.8; O2SAT 95–98
[2021-07-20] MEDS: 0.9 % NaCl (Sterile) Posiflush 10 mL IV ×2 (06:05→07:03)
[2021-07-20] MEDS: Metoprolol Tartrate 50 MG Tablet PO ×4 (06:06→23:56)
[2021-07-20] MEDS: Losartan Potassium 100 MG Tablet PO (07:00)
[2021-07-20] MEDS: Senna/Docusate Sodium 1 Tablet PO ×2 (07:00→18:54)
[2021-07-20] MEDS: APIXABAN 5 MG TABLET PO ×2 (07:00→18:38)
[2021-07-20] MEDS: hydrALAZINE 10 MG Tablet PO ×3 (07:00→21:37)
--- NOTE | 2021-07-20 08:06 | PCM.DC.SUM ---
Providers Date of Admission: 06/08/21 Primary Care Physician: Dr. Modesto Fulton MD Consultations 06/09/21 06:48 Consult: Onc/Wound/family practice physician Routine Comment: Reason for Consult:: sacral wound, colostomy Reason For Visit: DECUBITIS ULCER/WOUND Diagnosis Discharge Diagnosis (1) Pressure ulcer of sacral region, stage 4: Status: Acute Code(s): L89.154 - Pressure ulcer of sacral region, stage 4 (2) Debility: Status: Acute Code(s): R53.81 - Other malaise (3) Colostomy in place: Status: Acute Code(s): Z93.3 - Colostomy status (4) Diffuse large B cell lymphoma: Status: Acute Code(s): C83.30 - Diffuse large B-cell lymphoma, unspecified site Qualifiers: Lymphoma site: unspecified region Qualified Code(s): C83.30 - Diffuse large B-cell lymphoma, unspecified site Medications at Discharge Home Medications melatonin 3 mg capsule 3 mg PO HS 05/08/21 multivitamin 1 tab PO DAILY 05/14/21 Eliquis 5 mg PO BID 30 Days #60 tab 07/20/21 acetaminophen 1,000 mg PO 2130 #0 tab 07/20/21 acetaminophen 1,000 mg PO Q6H PRN PRN #0 tab 07/20/21 amiodarone 400 mg PO DAILY@0800 30 Days #30 tab 07/20/21 atorvastatin 40 mg PO DAILY 30 Days #30 tab 07/20/21 hydralazine 10 mg PO TID 30 Days #90 tab 07/20/21 losartan 100 mg PO DAILY 30 Days #30 tab 07/20/21 metoprolol succinate 50 mg PO Q6H 30 Days #120 tab 07/20/21 potassium chloride [Klor-Con M20] 20 meq PO DAILYCM 30 Days #30 tab 07/20/21 Hospital Course Operations - (Diverting colostomy.) Procedures None Summary of Care Provided Minutes Spent on Discharge: 35 Hospital Course: 75 year old female with below past medical history significant for paraplegia, infected stage 4 sacral pressure ulcer, hospitalized for diverting colostomy 06/06/[address] Machado, admitted to TCU with debility, here for rehabilitation, strengthening, wound care, intravenous antibiotics, prior to discharge home with family. Discharge home with 07/27/2021, [facility] PT/OT[facility]SN. Physical Exam Const alert and oriented x3 General Appearance: cooperative HEENT normocephalic Eyes PERRL and EOMs intact bilaterally Neck supple, no JVD and no carotid bruits Resp normal respiratory effort, normal air movement and clear to auscultation bilaterally Cardio regular rate and regular rhythm GI normal to inspection, nondistended, normoactive bowel sounds, non-tender and non-distended GI Narrative: Colostomy. Extremity normal capillary refill General Extremity: Negative for edema Skin Skin Narrative: Sacral pressure ulcer. General Skin Exam: no breakdown Neuro Neuro Narrative: Paraplegia. Psych affect normal Appearance: appropriate Medical Records Data Medical Nutrition Assessment Dietitian: Malnutrition Criteria Met Start: 06/21/21 15:00 Freq: Status: Active Protocol: Document 06/21/21 15:00 [facility] (Rec: 06/21/21 15:00 [facility] [id number]) Nutrition Malnutrition Evidence of Malnutrition Exists Yes Malnutrition (severe): Chronic Evidenced By Suboptimal Energy Intake ( Moderate),Weight Loss (Severe) ,Physical Changes (Moderate) Intake Problem Increased Nutrient Needs (specify) Etiology protein related to wound healing needs Signs/Symptoms as evidenced by coccyx PI w/ wound vac and requiring oral nutrition supplements to help w/ wound healing - res no longer wanting Shaan bid d/t feels it gives her n/v - agreeable to ensure clear with meals. Status Active Problem Clinical Problem Chronic Disease or Condition Related Malnutrition Etiology related to inability to consume adequate nutrition to meet est nutritional needs for wt maintenance and wound healing Signs/Symptoms as evidenced by variable po intake at meals and 9.1% wt loss x 3 months - res also w/ muscle/fat loss (arms/legs) Status Active Problem Recommendation Dietitian Recommendations/Changes Will continue order to 8 oz hector ensure clear w/ meals Will continue Regular diet with small portions Weight / BMI Weight Weight: 72.235 kg Body Mass Index (BMI) 29.6 ABG / Lab / Microbiology Data Result Diagrams: 07/14/21 05:21 07/14/21 05:21 Microbiology: Microbiology 07/12/21 14:55 Blood Culture (Wb) - Right Forearm Blood Culture - Final No growth in 5 days. 07/12/21 14:45 Blood Culture (Wb) - Anticubital Left Blood Culture - Final No growth in 5 days. 07/12/21 16:05 Urine Catheter - Catheter Urine Culture - Final Enterobacter aerogenes 07/12/21 16:45 Mucosa - Nose Respiratory Panel (PCR) - Final D/C Instructions Discharge Diet: No restrictions Discharge Activity: Return to Normal Activity and May Shower Weight Bearing Status: No weight bearing Call your doctor if you observe: Fever of 101 or Higher, Inability to urinate, Inability to have a bowel movement, Shortness of breath, Dizziness, Fainting spells, Swelling in the ankles, Chest pain and Uncontrolled pain Additional Instructions: Discharge home with 07/27/2021, [facility] PT/OT/SN. Please Follow Up With: Brice Maciel MD When: As scheduled. Meaningful Use Info Meaningful Use Diagnoses (Choose all that apply): None applicable Discharge Plan Admission Admit Date/Time: 06/08/21 15:55 Primary Reason for Your Visit: Debility. Attending Provider: Jarod Menendez Chi Primary Care Provider: Modesto Fulton Instructions Additional Instructions / Restrictions: Discharge home with 07/27/2021, [facility] PT/OT/SN. Discharge Orders/Prescriptions Prescriptions: New hydralazine 10 mg Tablet 10 mg PO TID 30 Days Qty: 90 RF: 0 amiodarone 200 mg Tablet 400 mg PO DAILY@0800 30 Days Qty: 30 RF: 0 acetaminophen 500 mg Tablet 1,000 mg PO Q6H PRN PRN (Reason: Pain Score 1-10) Qty: 0 RF: 0 acetaminophen 500 mg Tablet 1,000 mg PO 2130 Qty: 0 RF: 0 potassium chloride [Klor-Con M20] 20 mEq Tablet,Er Particles/Crystals 20 meq PO DAILYCM 30 Days Qty: 30 RF: 0 losartan 100 mg Tablet 100 mg PO DAILY 30 Days Qty: 30 RF: 0 Continued melatonin 3 mg capsule 3 mg PO HS RF: 0 multivitamin Tablet 1 tab PO DAILY RF: 0 atorvastatin 40 mg tablet 40 mg PO DAILY 30 Days Qty: 30 RF: 0 metoprolol succinate 50 mg tablet extended release 24 hr 50 mg PO Q6H 30 Days Qty: 120 RF: 0 Eliquis 5 mg tablet 5 mg PO BID 30 Days Qty: 60 RF: 0 Discontinued acetaminophen [Tylenol Extra Strength] 500 mg tablet 1,000 mg PO Q6H PRN (Reason: Pain) RF: 0 lisinopril 5 mg tablet 5 mg PO DAILY RF: 0 gabapentin 300 mg capsule 300 mg PO TID RF: 0 amiodarone 200 mg Tablet 400 mg PO DAILY RF: 0 prochlorperazine maleate [Compazine] 10 mg Tablet 10 mg PO Q6H PRN (Reason: Nausea) RF: 0 aspirin 81 mg Tablet 81 mg PO DAILY RF: 0 linezolid [Zyvox] 600 mg tablet 600 mg PO Q12H RF: 0 meropenem 1 gram recon soln 1 g IV Q8 RF: 0 Shaan (with collagen) 7-7-1.5 gram powder in packet 1 packet PO BIDCM RF: 0 sodium chloride 0.9 % (flush) [BD PosiFlush Normal Saline 0.9] Syringe 10 - 40 ml IV UD PRN (Reason: Open End PICC Flush) Qty: 300 RF: 0 sodium chloride 0.9 % (flush) [Normal Saline Flush] Syringe 10 - 40 ml IV UD PRN (Reason: Port access or dressing change) Qty: 300 RF: 0 heparin, porcine (PF) 10 unit/mL Syringe 50 unit IV UD PRN (Reason: PICC Line Heparin Flush) Qty: 60 RF: 0 polyethylene glycol 3350 [Miralax] 17 gram/dose powder 17 g PO DAILY PRN (Reason: Constipation) Qty: 0 RF: 0 Referrals / Follow Up: Robin Davenport MD [NON-STAFF] - In 1 Week Modesto Fulton MD [Primary Care Provider] - Disposition Disposition (needs filled in before D/C Order can be placed): Home Health Service
[2021-07-20] MEDS: Potassium Chloride Oral Tablet 20 MEQ PO (08:54)
[2021-07-20] MEDS: Multivitamins,Therapeutic Tablet 1 TABLET PO (08:54)
[2021-07-20] MEDS: Amiodarone 200 MG Tablet 400 MG PO (08:54)
[2021-07-20] MEDS: Nystatin Powder 15gm Bottle 1 APPLIC TOPICAL ×2 (08:55→21:39)
[2021-07-20] MEDS: 0.9% Saline Lock 10 ML Syringe IV ×2 (18:34→19:33)
[2021-07-20] MEDS: MELATONIN 3 MG TABLET PO (21:37)
[2021-07-20] MEDS: Atorvastatin Calcium 40 MG Tablet PO (21:37)
[2021-07-20] MEDS: Acetaminophen 500 MG Tablet 1000 MG PO (21:37)
[2021-07-21] VITALS (8 sets, daily range): BP systolic 150–160; BP diastolic 62–78; PULSE 61–72; RESP 16; TEMP 36; O2SAT 94–97
[2021-07-21 05:56] LABS: Absolute Lymphocyte Count 1.61 X10^3/uL (0.83-4.51); Absolute Neutrophil Count 8.3 X10^3/uL (2.0-7.7); Basophil# 0.03 X10^3/uL; Basophil% 0.3 % (0-1); Eosinophil# 0.17 X10^3/uL; Eosinophils% 1.5 % (0-5); Hematocrit 36.7 % (37-47); Hemoglobin 11.4 g/dL (12.0-15.0); Lymphocyte # 1.61 X10^3/ul (0.83-4.51); Lymphocyte % 14.3 % (19-41); Mean Corp Hgb Conc 31.1 g/dL (32-36); Mean Corpuscular Hgb 26.7 pg (27.0-32.0); Mean Corpuscular Volume 85.9 fL (81-99); Mean Platelet Vol. 8.8 fl (6.2-12.0); Monocyte# 0.89 X10^3/uL; Monocyte% 7.9 % (0-10); NRBC Flagged by Analyzer 0 % (0-5); Neutrophil # 8.31 X10^3/uL (2.7-7.7); Neutrophil % 73.6 % (47-70); POSITIVE MORPHOLOGY YES; Platelet Count 310 K/mm3 (150-450); Red Blood Count 4.27 M/mm3 (4.2-5.4); White Blood Count 11.3 K/mm3 (4.4-11.0)
[2021-07-21 06:03] LABS: Differential Indicated SCAN CRITERIA MET
[2021-07-21] MEDS: Senna/Docusate Sodium 1 Tablet PO ×2 (06:14→17:39)
[2021-07-21] MEDS: Losartan Potassium 100 MG Tablet PO (06:14)
[2021-07-21] MEDS: hydrALAZINE 10 MG Tablet PO ×3 (06:14→21:39)
[2021-07-21] MEDS: APIXABAN 5 MG TABLET PO ×2 (06:14→17:39)
[2021-07-21] MEDS: Metoprolol Tartrate 50 MG Tablet PO ×3 (06:15→17:38)
[2021-07-21] MEDS: 0.9% Saline Lock 10 ML Syringe IV (06:16)
[2021-07-21 06:17] LABS: Anion Gap 5 (5-15); BUN 6 mg/dL (7-18); BUN/Creat Ratio 16.1 RATIO (10-20); Calcium,Total 8.7 mg/dL (8.5-10.1); Chloride 106 mmol/L (98-107); Creatinine, Serum 0.37 mg/dL (0.55-1.02); EST Glomerular Filtration Rate 179 mL/min (>60); Est Glom Filt Rate - Afr Amer 217 mL/min (>60); Estimated Creatinine Clearance 41.33 ml/min; Glucose 98 mg/dL (74-106); Potassium 3.9 mmol/L (3.5-5.1); Sodium Level 138 mmol/L (136-145)
[2021-07-21 06:26] LABS: Anisocytosis 1+; Differential Comment SCANNED; Microcytosis 1+
[2021-07-21] MEDS: Potassium Chloride Oral Tablet 20 MEQ PO (08:14)
[2021-07-21] MEDS: Multivitamins,Therapeutic Tablet 1 TABLET PO (08:14)
[2021-07-21] MEDS: Nystatin Powder 15gm Bottle 1 APPLIC TOPICAL (08:14)
[2021-07-21] MEDS: Amiodarone 200 MG Tablet 400 MG PO (08:14)
[2021-07-21] MEDS: MELATONIN 3 MG TABLET PO (21:39)
[2021-07-21] MEDS: Acetaminophen 500 MG Tablet 1000 MG PO (21:40)
[2021-07-21] MEDS: Atorvastatin Calcium 40 MG Tablet PO (21:40)
[2021-07-22] VITALS (9 sets, daily range): BP systolic 106–168; BP diastolic 63–78; PULSE 5–75; RESP 16; TEMP 36.6; O2SAT 95
[2021-07-22] MEDS: Metoprolol Tartrate 50 MG Tablet PO ×4 (00:10→18:14)
[2021-07-22] MEDS: hydrALAZINE 10 MG Tablet PO ×2 (06:25→21:32)
[2021-07-22] MEDS: Senna/Docusate Sodium 1 Tablet PO ×2 (06:26→18:14)
[2021-07-22] MEDS: Losartan Potassium 100 MG Tablet PO (06:26)
[2021-07-22] MEDS: APIXABAN 5 MG TABLET PO ×2 (06:27→18:14)
[2021-07-22] MEDS: Nystatin Powder 15gm Bottle 1 APPLIC TOPICAL ×2 (06:27→18:15)
[2021-07-22] MEDS: Potassium Chloride Oral Tablet 20 MEQ PO (09:49)
[2021-07-22] MEDS: Multivitamins,Therapeutic Tablet 1 TABLET PO (09:49)
[2021-07-22] MEDS: Amiodarone 200 MG Tablet 400 MG PO (09:49)
[2021-07-22] MEDS: Atorvastatin Calcium 40 MG Tablet PO (21:32)
[2021-07-22] MEDS: Acetaminophen 500 MG Tablet 1000 MG PO (21:32)
[2021-07-22] MEDS: MELATONIN 3 MG TABLET PO (21:33)
[2021-07-23] VITALS (10 sets, daily range): BP systolic 130–170; BP diastolic 64–77; PULSE 59–73; RESP 16; TEMP 36.3; O2SAT 95
[2021-07-23] MEDS: Metoprolol Tartrate 50 MG Tablet PO ×4 (00:04→17:12)
[2021-07-23] MEDS: hydrALAZINE 10 MG Tablet PO ×3 (06:11→21:56)
[2021-07-23] MEDS: Losartan Potassium 100 MG Tablet PO (06:11)
[2021-07-23] MEDS: APIXABAN 5 MG TABLET PO ×2 (06:11→17:12)
[2021-07-23] MEDS: Senna/Docusate Sodium 1 Tablet PO ×2 (06:11→17:12)
[2021-07-23] MEDS: Potassium Chloride Oral Tablet 20 MEQ PO (08:44)
[2021-07-23] MEDS: Multivitamins,Therapeutic Tablet 1 TABLET PO (08:44)
[2021-07-23] MEDS: Amiodarone 200 MG Tablet 400 MG PO (08:44)
--- NOTE | 2021-07-23 09:54 | NURSING ---
PT CONCERNED ABOUT BLOOD PRESSURE MEDICATION, NOT SURE SHE SHOULD TAKE IT IF ITS LOW AT HOME. NOTIFIED DR MCDANIEL AND BP PARAMETERS GIVEN FOR APRESOLINE. AND NEW ORDER TO CHANGE CONNER TODAY, LAST CHANGED 06/23/21
--- NOTE | 2021-07-23 11:50 | NURSING ---
R' REMAINS IN CONTACT ISOLATION. ALL CARE PROVIDED IN ROOM.
[2021-07-23] MEDS: Nystatin Powder 15gm Bottle 1 APPLIC TOPICAL ×2 (11:54→17:12)
[2021-07-23] MEDS: proCHLORPERazine 5 MG Tablet 10 MG PO (17:16)
[2021-07-23] MEDS: Acetaminophen 500 MG Tablet 1000 MG PO (21:56)
[2021-07-23] MEDS: Atorvastatin Calcium 40 MG Tablet PO (21:57)
[2021-07-23] MEDS: MELATONIN 3 MG TABLET PO (21:57)
[2021-07-24] VITALS (9 sets, daily range): BP systolic 138–169; BP diastolic 61–77; PULSE 62–72; RESP 16; TEMP 36.8; O2SAT 95–96
[2021-07-24] MEDS: Metoprolol Tartrate 50 MG Tablet PO ×4 (00:25→17:47)
[2021-07-24] MEDS: hydrALAZINE 10 MG Tablet PO ×3 (06:13→21:53)
[2021-07-24] MEDS: APIXABAN 5 MG TABLET PO ×2 (06:14→17:47)
[2021-07-24] MEDS: Senna/Docusate Sodium 1 Tablet PO ×2 (06:14→17:47)
[2021-07-24] MEDS: Losartan Potassium 100 MG Tablet PO (06:14)
[2021-07-24] MEDS: Multivitamins,Therapeutic Tablet 1 TABLET PO (08:45)
[2021-07-24] MEDS: Amiodarone 200 MG Tablet 400 MG PO (08:45)
[2021-07-24] MEDS: Potassium Chloride Oral Tablet 20 MEQ PO (08:45)
[2021-07-24] MEDS: Nystatin Powder 15gm Bottle 1 APPLIC TOPICAL ×2 (12:10→17:48)
--- NOTE | 2021-07-24 15:08 | WOUNDNOTE ---
wound photo: sacrum
[2021-07-24] MEDS: Citalopram 10 MG Tablet PO (20:38)
[2021-07-24] MEDS: Atorvastatin Calcium 40 MG Tablet PO (21:52)
[2021-07-24] MEDS: Acetaminophen 500 MG Tablet 1000 MG PO (21:53)
[2021-07-24] MEDS: MELATONIN 3 MG TABLET PO (21:54)
[2021-07-25] VITALS (10 sets, daily range): BP systolic 129–156; BP diastolic 60–76; PULSE 63–72; RESP 14; TEMP 36.7; O2SAT 94–96
[2021-07-25] MEDS: Metoprolol Tartrate 50 MG Tablet PO ×5 (01:01→23:59)
[2021-07-25] MEDS: APIXABAN 5 MG TABLET PO ×2 (06:55→17:41)
[2021-07-25] MEDS: Senna/Docusate Sodium 1 Tablet PO ×2 (06:55→17:41)
[2021-07-25] MEDS: Losartan Potassium 100 MG Tablet PO (06:55)
[2021-07-25] MEDS: hydrALAZINE 10 MG Tablet PO ×3 (06:55→21:30)
[2021-07-25] MEDS: Nystatin Powder 15gm Bottle 1 APPLIC TOPICAL ×2 (06:56→17:42)
[2021-07-25] MEDS: Potassium Chloride Oral Tablet 20 MEQ PO (08:59)
[2021-07-25] MEDS: Multivitamins,Therapeutic Tablet 1 TABLET PO (08:59)
[2021-07-25] MEDS: Amiodarone 200 MG Tablet 400 MG PO (08:59)
[2021-07-25] MEDS: proCHLORPERazine 5 MG Tablet 10 MG PO (12:06)
[2021-07-25] MEDS: Acetaminophen 500 MG Tablet 1000 MG PO (21:29)
[2021-07-25] MEDS: Atorvastatin Calcium 40 MG Tablet PO (21:30)
[2021-07-25] MEDS: MELATONIN 3 MG TABLET PO (21:30)
[2021-07-26 06:17] VITALS: BP 138/67; PULSE 63
[2021-07-26] MEDS: Losartan Potassium 100 MG Tablet PO (06:17)
[2021-07-26] MEDS: APIXABAN 5 MG TABLET PO ×2 (06:17→17:52)
[2021-07-26] MEDS: Senna/Docusate Sodium 1 Tablet PO ×2 (06:17→17:52)
[2021-07-26] MEDS: Metoprolol Tartrate 50 MG Tablet PO ×3 (06:17→17:52)
[2021-07-26] MEDS: hydrALAZINE 10 MG Tablet PO ×3 (06:17→21:30)
[2021-07-26] MEDS: Nystatin Powder 15gm Bottle 1 APPLIC TOPICAL ×2 (06:18→15:33)
[2021-07-26] MEDS: Potassium Chloride Oral Tablet 20 MEQ PO (08:31)
[2021-07-26] MEDS: Multivitamins,Therapeutic Tablet 1 TABLET PO (08:31)
[2021-07-26] MEDS: Amiodarone 200 MG Tablet 400 MG PO (08:31)
--- NOTE | 2021-07-26 09:42 | CASEMGMT ---
Social Work BIMS and PHQ-9 completed this date, BIMS 15, PHQ-9 6. SW spoke w/pt about symptoms of depression indicated on PHQ-9. Pt describes it more as anxiety than depression, states did ask physician for something to take as needed. He was going to prescribe Celexa but she did not want that is she states it takes 4 weeks to work. Pt states is feeling less anxious, now that she is going home tomorrow and things are set up for her to go home. Pt states has a very supportive family who has been working to get everything arranged for home. SW suggested to pt if she starts to have symptoms of anxiety again when she goes home, to speak with her primary care physician about it. Pt states understanding. NIC Vásquez
[2021-07-26 12:38] VITALS: BP 130/65; PULSE 65
--- NOTE | 2021-07-26 14:16 | WOUNDNOTE ---
Pt tolerated wound VAC dressing change well. home VAC approved. proof of delivery form signed and faxed back to [facility]. Pt is scheduled to be discharged home tomorrow with family. Pt has home health care arranged for VAC changes and assistance with ostomy care. Family has already gotten the ostomy supplies and have them at home. Family did assist this nurse with appliance change today. Lc states he will be able to empty the appliance for pt as well. Pt and family deny questions at this time. will see again in am prior to patient being discharged home.
[2021-07-26 15:12] VITALS: BP 129/60; PULSE 60
--- NOTE | 2021-07-26 16:36 | CASEMGMT ---
Social Work Spoke with Cherelle from [facility] - [facility] out sourced their SN to [facility]. Provided information to [facility]. Mikki Burleson, NURSE WOUND CARE SERVICE PLUMBER
[2021-07-26 17:52] VITALS: BP 169/56; PULSE 63
[2021-07-26 21:30] VITALS: BP 126/79; PULSE 63
[2021-07-26] MEDS: Atorvastatin Calcium 40 MG Tablet PO (21:30)
[2021-07-26] MEDS: MELATONIN 3 MG TABLET PO (21:31)
[2021-07-26] MEDS: Acetaminophen 500 MG Tablet 1000 MG PO (21:31)
[2021-07-27] VITALS: BP 128/74; PULSE 63
[2021-07-27 06:41] VITALS: BP 124/56; PULSE 66
[2021-07-27] MEDS: Metoprolol Tartrate 50 MG Tablet PO ×3 (06:41→11:12)
[2021-07-27] MEDS: APIXABAN 5 MG TABLET PO (06:41)
[2021-07-27] MEDS: hydrALAZINE 10 MG Tablet PO (06:41)
[2021-07-27] MEDS: Senna/Docusate Sodium 1 Tablet PO (06:42)
[2021-07-27] MEDS: Losartan Potassium 100 MG Tablet PO (06:42)
[2021-07-27] MEDS: Nystatin Powder 15gm Bottle 1 APPLIC TOPICAL (06:43)
[2021-07-27] MEDS: Potassium Chloride Oral Tablet 20 MEQ PO (07:58)
[2021-07-27] MEDS: Amiodarone 200 MG Tablet 400 MG PO (07:58)
[2021-07-27] MEDS: Multivitamins,Therapeutic Tablet 1 TABLET PO (07:58)
[2021-07-27 08:00] VITALS: BP 125/58; PULSE 68; RESP 16; TEMP 36.2; O2SAT 97
[2021-07-27 09:16] VITALS: PULSE 72; RESP 18; O2SAT 97
[2021-07-27 11:12] VITALS: PULSE 68
== END 2021-07-27 11:50 | disposition home health service (06) | DRG 949 ==
PROVIDERS: Admitting Provider Family Medicine Geriatric Medicine; PCP Family Medicine; Visit Provider Family Medicine Geriatric Medicine
DX: Z48.815 Encounter for surgical aftercare following surgery on the digestive system (principal); L89.154 Pressure ulcer of sacral region, stage 4; C83.30 Diffuse large B-cell lymphoma, unspecified site; M46.28 Osteomyelitis of vertebra, sacral and sacrococcygeal region; G82.20 Paraplegia, unspecified; Z16.24 Resistance to multiple antibiotics; Z16.21 Resistance to vancomycin; B96.20 Unspecified Escherichia coli [E. coli] as the cause of diseases classified elsewhere; Z93.3 Colostomy status; I25.10 Atherosclerotic heart disease of native coronary artery without angina pectoris; I10 Essential (primary) hypertension; I48.91 Unspecified atrial fibrillation; B35.4 Tinea corporis; F41.9 Anxiety disorder, unspecified; E78.5 Hyperlipidemia, unspecified; I25.2 Old myocardial infarction; Z79.899 Other long term (current) drug therapy; Z79.01 Long term (current) use of anticoagulants; Z79.82 Long term (current) use of aspirin
CPT/HCPCS: 36415; 71045; 74019; 80048; 81001; 85014; 85018; 85025; 86920; 86922; 87040; 87077; 87086; 87088; 87186; 87633; 87635; 97110; 97162; 97166; 97530; 97535; 97802; J2185; J2997; J7050; U0005; A4216; J2405; U0003

== ENCOUNTER → 2021-07-07 10:31 | Outpatient (CLI) | payer OTHER, SELFPAY ==
[2021-07-07] MEDS: 0.9% NaCl Peripheral Flush Adult/Peds IV (10:58)
[2021-07-07 11:03] VITALS: BP 139/56; PULSE 71; RESP 16; TEMP 36.8; O2SAT 98
[2021-07-07 11:51] VITALS: BP 145/61; PULSE 73; RESP 16; TEMP 36.6; O2SAT 99
[2021-07-07 12:56] VITALS: BP 142/58; PULSE 67; RESP 16; TEMP 37.2; O2SAT 95
[2021-07-07] MEDS: Furosemide 20 MG/2 ML VIAL IV (13:33)
[2021-07-07 14:12] VITALS: BP 155/63; PULSE 68; RESP 16; TEMP 36.9; O2SAT 97
[2021-07-07 15:13] VITALS: BP 149/62; PULSE 72; RESP 16; TEMP 36.9; O2SAT 93
== END ==
PROVIDERS: PCP Family Medicine; Referring Provider Family Medicine Geriatric Medicine; Visit Provider Family Medicine Geriatric Medicine
DX: D64.9 Anemia, unspecified (principal)
CPT/HCPCS: 36430; 86850; 86900; 86901; 86920; 86922; J7040; P9016; A4216; J1940

== ENCOUNTER 2021-08-07 10:08 | Outpatient (RCR) | payer OTHER, SELFPAY ==
[2021-08-07 11:00] VITALS: BP 128/66; PULSE 73; RESP 20; TEMP 36.6; BMI 25.9
--- NOTE | 2021-08-07 12:34 | PCM.WC.HP ---
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 She had progressive paraplegia. She went to TCU for acute rehab for this progressive paraplegia. During that time she had worsening sacral pressure sore with skin necrosis. Surgery 05/15/21 - Excision necrotic sacral pressure sore, Stage IV, with partial ostectomy for osteomyelitis. Pathology from surgery on 05/15/21 of bone showed acute osteomyelitis. Operative tissue culture positive for Escherichia coli, Klebsiella, Vanc. Resist. E. gallinarum, Vanc. Resist. E. faecalis. Operative bone culture positive for Escherichia coli, Vanc. Resist. E. faecalis, Vanc. Resist. E. gallinarum. She was on Meropenem, Vancomycin has been stopped and Linezolid started. ID is managing. Radiation from 05/17/21 - 06/12/21 18 treatments to T4-T7 area including paraspinal region. 06/06/21- Laparoscopic sigmoid colectomy with creation of end colostomy for fecal diversion. Was in TCU 06/08/21-07/20/21. Wound Care - Wound VAC to 150 mmHg. Dressing changed 3 times per week. Progress of Wound: Stable. [facility] Medical History Afib Atrial fibrillation with rapid ventricular response Chronic indwelling Gutierrez catheter Colostomy in place Coronary artery disease Decubitus ulcer Diffuse large B-cell lymphoma Hypertension Large cell lymphoma Myocardial infarct Paraplegia Pressure sore Home Medications melatonin 3 mg capsule 3 mg PO HS 05/08/21 [History Last Taken Unknown] multivitamin 1 tab PO DAILY 05/14/21 [History Last Taken Unknown] Eliquis 5 mg PO BID 30 Days #60 tab 07/20/21 [Rx Last Taken Unknown] acetaminophen 1,000 mg PO Q6H PRN PRN #0 tab 07/20/21 [Rx Last Taken Unknown] amiodarone 400 mg PO DAILY@0800 30 Days #30 tab 07/20/21 [Rx Last Taken Unknown] atorvastatin 40 mg PO DAILY 30 Days #30 tab 07/20/21 [Rx Last Taken Unknown] hydralazine 10 mg PO TID 30 Days #90 tab 07/20/21 [Rx Last Taken Unknown] losartan 100 mg PO DAILY 30 Days #30 tab 07/20/21 [Rx Last Taken Unknown] metoprolol succinate 50 mg PO Q6H 30 Days #120 tab 07/20/21 [Rx Last Taken Unknown] potassium chloride [Klor-Con M20] 20 meq PO DAILYCM 30 Days #30 tab 07/20/21 [Rx Last Taken Unknown] citalopram 10 mg PO DAILY 30 Days #30 tab 07/24/21 [Rx Last Taken Unknown] Allergy/AdvReac Type Severity Reaction Status Date / Time No Known Allergies Allergy Verified 08/07/21 11:09 Family History (Reviewed 08/11/21 @ 16:24 by Barbra Esparza POLITICAL SCIENCE INSTRUCTOR, POLITICAL SCIENCE INSTRUCTOR-C) Father CHF (congestive heart failure) Mother CAD (coronary artery disease) Alzheimer disease Surgical History Hx of CABG S/P cholecystectomy Social History household members: family housing: house number of children: 5 Smoking Status: Never smoker alcohol intake: never substance use type: does not use chris/christian: Darion ROS ENT HEENT: Reports none Cardiovascular Cardiovascular: Reports none Respiratory/Chest Respiratory/Chest: Reports none Gastrointestinal Gastrointestinal: Reports bloating, constipation and diarrhea Genitourinary Genitourinary: Reports none Musculoskeletal Musculoskeletal: Reports other Details: paralyzed Integumentary Integumentary: Reports wounds Psychiatric Psychiatric: Reports none Vital Signs Vital Signs Vital Signs: 08/07/21 11:00 Temperature 98 F Temperature Source Temporal Pulse Rate 73 Respiratory Rate 20 H Blood Pressure 128/66 H Blood Pressure Mean 86 Blood Pressure Source Monitor Weight Weight: 155 lb 11.464 oz Body Mass Index (BMI) 25.9 Physical Exam Const alert, oriented x3 and no apparent distress General Appearance: cooperative HEENT normocephalic Resp normal respiratory effort Cardio regular rate GI soft to palpation and non-tender Extremity normal capillary refill Skin Wound Narrative: Sacral ulcer with bone exposure. Periwound is excoriated. Neuro oriented x3 Psych mental status grossly normal Appearance: grossly normal and appropriate Debridement Note Debridement Note Wound debrided: Sacral ulcer Laterality: Not Applicable Wound Grade/Stage: Stage IV Type of Debridement: Excisional debridement Anesthesia Used: 4% Lidocaine Solution Depth: Down to and including healthy tissue, in the subcutaneous layer, to muscle and to bone Percentage of wound debrided: 100 Instrument Used: 7mm curette Tissue Removed: Subcutaneous tissue and slough into the muscle with bone exposure. Severity: Fat Layer Exposed Amount of bleeding with debridement: Mild Bleeding Controlled with: Pressure Patient tolerated procedure: Patient tolerated procedure well Post-Debridement Measurements and Additional Note: Post-Debridement Measurements/Treatment - Nurse 1 - General Ulcer Assessment Start: 08/07/21 10:59 Freq: Status: Active Protocol: NICOLAS.LOWASCENCION Activity Type Activity Date Activity User E-Sign Co-Sign Detail Recorded Client Recorded Date Recorded By Document 08/07/21 11:00 DL [id number] 08/07/21 11:06 DL 08/07/21 11:00 - Today's Visit Information Type of service Initial Visit Arrival Mode Wheelchair Transfer Assistance Will Lift Transfer Assist (Other) x2 Patient Identification Verified (Name & Yes ) Patient Requires Transmission-Based No Precautions Height and Weight Height 5 ft 5 in Weight 155 lb 11.464 oz Weight in Pounds 155.7 lbs Body Mass Index (BMI) 25.9 BMI Classification Overweight BSA - Koffi 1.78 Vital Signs Temperature (97.8 F-99.1 F) 98 F Temperature Source Temporal Pulse Rate (60-100) 73 Pulse Location Monitor Respiratory Rate (12-18) 20 H Respiratory rate source Observation Blood Pressure (90/60-120/80) 128/66 H Blood Pressure Mean 86 Source Monitor Pain Scale: 0-10 Numeric Is Patient Pain Free? Yes Communication Assessment Preferred language Hong Konger Rn Mental Health Required No Able to Read Yes Able to Write Yes Communication Tools None Right Hearing Abillity Normal Left Hearing Abillity Normal Visual Assistive Devices Glasses Teaching Assessment Preferences Verbal,Written Barriers to Learning None Readiness To Learn Good Readiness to Engage in Self Management Med Activities Anxiety Level Calm Cooperation Cooperative Perception Coherent Interest in Health Problem Asks Questions Education Importance Acknowledges Need Does Patient Smoke tobacco or other No substances Smoking Status Never smoker Is Patient Diabetic Yes Functional Assessment Recent Decline in Ability to Perform Denies Any Declines Culture/Restorationist/Mgmt Specialist Cultural/Restorationist Needs that may affect No Treatment Plan Would you allow our hospital pattern chart writer to No meet you for the purpose of spiritual/ emotional support? Mgmt Specialist to contact place of faith No Teaching: Wound Center Diagnostic Tests Ordered -Person Taught Patient Discharge Instructions -Person Taught Patient Dressing Your Wound -Person Taught Patient *Welcome to the Wound Center -Person Taught Patient WC - Nurse 1 - General Ulcer Measurement Start: 08/07/21 10:59 Freq: Status: Active Protocol: Activity Type Activity Date Activity User E-Sign Co-Sign Detail Recorded Client Recorded Date Recorded By Document 08/07/21 11:00 DL [id number] 08/07/21 11:06 DL 08/07/21 11:00 Wound Center Nurse 1 #1 Sacral -Current Size (cm) - Length 7.2 -Current Size (cm) - Width 6.7 -Current Size (cm) - Depth 1.6 -Total Square Cm 48.24 -Photo Taken Yes -Exudate Amt Medium -Exudate Type Serosanguineous -Wound Margin Flat & Intact -Granulation Amt Medium (34-66%) -Necrosis Amt Medium (34-66%) -Necrotic Tissue Type Adherent Slough -Structure Exposed N/A -Texture (Laney-wound Skin Appearance) Scarring -Moisture (Laney-wound Skin Appearance) No Abnormality -Color (Laney-wound Skin Appearance) No Abnormality -Temperature (Laney-wound Skin No Abnormality Appearance) (Pt Warm) -Tenderness on Palpation (Laney-wound No Skin Appearance) -Ulcer Cleansing Not Cleansed -Foul Odor after Cleansing Yes, Due to Product Use -Anesthetic Used 4% Lidocaine Solution WC - Nurse 2 - General Ulcer CM Notes Start: 08/07/21 10:59 Freq: Status: Active Protocol: Activity Type Activity Date Activity User E-Sign Co-Sign Detail Recorded Client Recorded Date Recorded By Document 08/07/21 11:31 [id number] 08/07/21 11:37 [email or web address] 08/07/21 11:31 Wound Center Nurse 2 -Time 11:32 -Correct Patient Yes -Correct Side, Site, Position Yes -Correct Procedure Yes -Procedure Performed Yes -Type of Procedure Debridement -Clinical Debridement Muscle / Fascia -Tissue Removed Muscle,Fascia -Post Debridement (cm) - Length 8 -Post Debridement (cm) - Width 8 -Post Debridement (cm) - Depth 2 -Total Square (Post) (cm) 64 -Area of Debridement (cm) - Length 8 -Area of Debridement (cm) - Width 8 -Total Square (Area) (cm) 64 -Tunneling No -Undermining/Tunneling No -Circular Undermining No -Wound/Ulcer Outcome Not Healed -Ulcer Cleansing Rinsed/ Irrigated with Saline -Foul Odor after Cleansing No -Bioengineered Tissue No -Bleeding Controlled with Pressure -Offloading No -Treatment Response Procedure Tolerated Well -Debridement - Muscle / Fascia, 1st Yes 20sq cm -Debridement, Muscle/Fascia, ea addt'l 3 20sq cm or part thereof Pain Scale: 0-10 Numeric Is Patient Pain Free? Yes - Nurse 3 - General Ulcer D/C NN Start: 08/07/21 10:59 Freq: Status: Active Protocol: Activity Type Activity Date Activity User E-Sign Co-Sign Detail Recorded Client Recorded Date Recorded By Document 08/07/21 12:28 DL [id number] 08/07/21 12:30 DL 08/07/21 12:28 Wound Care Nurse 3 #1 Sacral -Ulcer Cleansing Not Cleansed -Other Dressing moist gauze -Primary Dressing Covered/Secured with Dry Gauze, Secured with Tape -Other Covering Barrier Treatment Response Procedure Tolerated Well Pain Scale: 0-10 Numeric Is Patient Pain Free? Yes WC - Visit Discharge Discharge Condition Stable Ambulatory Status Wheelchair Accompanied by family Notes: Daughters instructed on dressing change until Vac resumed next week. Facility Type Home Health Orders Sent Yes Charges/Coding Procedures Integumentary [id number]: [id number] Casie musc/fascia 20 sq cm/< Add On Codes: 49118 Casie musc/fascia add-on (x3) Assessment/Plan Assessment/Plan (1) Pressure ulcer of sacral region, stage 4: CODE(S): L89.154 - Pressure ulcer of sacral region, stage 4 (2) Debility: CODE(S): R53.81 - Other malaise (3) Colostomy in place: CODE(S): Z93.3 - Colostomy status (4) Paraplegia: CODE(S): G82.20 - Paraplegia, unspecified (5) Diffuse large B cell lymphoma: CODE(S): C83.30 - Diffuse large B-cell lymphoma, unspecified site QUALIFIERS: Lymphoma site: unspecified region Qualified Code(s): C83.30 - Diffuse large B-cell lymphoma, unspecified site PLAN: Wound care - VAC holiday for one week to allow periwound to heal. Will use Dakins 0.25% moistened gauze daily to ulcer and cover with absorbant dressing. Apply skin barrier cream to periwound such as A&D ointment, Aquaphore, baby diaper rash cream daily and prn. Restart the wound VAC next Saturday08/14/21. Encourage increased protein intake to help with wound healing. Follow up 2 weeks. Call or come in sooner if have any questions or concerns.
== END 2021-08-20 23:59 ==
LOC: WC 10:08
PROVIDERS: PCP Family Medicine; Visit Provider Nurse Practitioner Family
DX: L89.154 Pressure ulcer of sacral region, stage 4 (principal); C83.30 Diffuse large B-cell lymphoma, unspecified site; G82.20 Paraplegia, unspecified; Z93.3 Colostomy status; I48.91 Unspecified atrial fibrillation; I10 Essential (primary) hypertension; I25.10 Atherosclerotic heart disease of native coronary artery without angina pectoris; Z79.899 Other long term (current) drug therapy; Z79.01 Long term (current) use of anticoagulants
CPT/HCPCS: 11043; 11046; 99213; G0463

== ENCOUNTER 2021-09-11 13:30 | Outpatient (RCR) | payer OTHER, SELFPAY ==
[2021-08-21 00:33] VITALS: BP 128/66; PULSE 73; RESP 20; TEMP 36.6; BMI 25.9
[2021-08-21 13:23] VITALS: BP 131/48; PULSE 91; TEMP 36.3; BMI 25.9
--- NOTE | 2021-08-21 14:35 | PCM.WC.PN ---
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 She had progressive paraplegia. She went to TCU for acute rehab for this progressive paraplegia. During that time she had worsening sacral pressure sore with skin necrosis. Surgery 05/15/21 - Excision necrotic sacral pressure sore, Stage IV, with partial ostectomy for osteomyelitis. Pathology from surgery on 05/15/21 of bone showed acute osteomyelitis. Operative tissue culture positive for Escherichia coli, Klebsiella, Vanc. Resist. E. gallinarum, Vanc. Resist. E. faecalis. Operative bone culture positive for Escherichia coli, Vanc. Resist. E. faecalis, Vanc. Resist. E. gallinarum. She was on Meropenem, Vancomycin has been stopped and Linezolid started. ID is managing. Radiation from 05/17/21 - 06/12/21 18 treatments to T4-T7 area including paraspinal region. 06/06/21- Laparoscopic sigmoid colectomy with creation of end colostomy for fecal diversion. Was in TCU 06/08/21-07/20/21. Wound Care - Wound VAC to 150 mmHg. Dressing changed 3 times per week. Progress of Wound: Periwound is excoriated with a yeasty, pink rash. Ulcer has granulation tissue present and the depth is decreasing. Coccyx bone still palpable. Objective Data Objective Data Vital Signs: Vital Signs Temp Pulse Resp BP 97.4 F L 91 20 H 131/48 H 08/21/21 13:23 08/21/21 13:23 08/21/21 00:33 08/21/21 13:23 Weight: 155 lb 11.464 oz Body Mass Index (BMI) 25.9 Charges/Coding Procedures Integumentary 111xxx-113xx: 11827 Casie musc/fascia 20 sq cm/< Add On Codes: 82640 Casie musc/fascia add-on (x3) Physical Exam Const alert and oriented x3 General Appearance: cooperative HEENT normocephalic Eyes PERRL Lymph Lymphatic: no lymphedema noted Resp normal respiratory effort Cardio regular rate GI non-tender Palpation: soft Extremity normal capillary refill Skin Wound Narrative: Sacral ulcer is beefy pink with good granulation tissue present. Periwound is excoriated with a pink, raised rash that looks like yeast. Neuro CN's II-XII intact bilaterally Psych Appearance: grossly normal Debridement Note Debridement Note Wound debrided: Sacral ulcer Laterality: Not Applicable Wound Grade/Stage: Stage IV Type of Debridement: Excisional debridement Anesthesia Used: 4% Lidocaine Solution Depth: Down to and including healthy tissue, in the subcutaneous layer, to muscle and to bone Percentage of wound debrided: 100 Instrument Used: 7mm curette Tissue Removed: Subcutaneous tissue and slough into the muscle with coccyx bone exposure. Severity: Fat Layer Exposed Amount of bleeding with debridement: Mild Bleeding Controlled with: Pressure Patient tolerated procedure: Patient tolerated procedure well Post-Debridement Measurements and Additional Note: Post-Debridement Measurements/Treatment - Nurse 1 - General Ulcer Assessment Start: 08/21/21 13:22 Freq: Status: Active Protocol: KRANTHI Activity Type Activity Date Activity User E-Sign Co-Sign Detail Recorded Client Recorded Date Recorded By Document 08/21/21 13:23 DIANNE [id number] 08/21/21 13:25 DIANNE 08/21/21 13:23 - Today's Visit Information Type of service Follow-up Visit (Physician/MECHANICAL EQUIPMENT TEST ENGINEER ) Arrival Mode Wheelchair Patient Identification Verified (Name & Yes ) Height and Weight Body Mass Index (BMI) 25.9 BMI Classification Overweight Vital Signs Temperature (97.8 F-99.1 F) 97.4 F L Temperature Source Oral Pulse Rate (60-100) 91 Pulse Location Monitor Blood Pressure (90/60-120/80) 131/48 H Blood Pressure Mean (mm Hg) 75 Source Monitor Position Semi-Fowlers Blood Pressure Location Right Arm History Since Last Visit- (Skip if this is Patient's initial visit) Have you changed medications since your No last visit? Any new allergies or adverse reactions No Had a fall/change in ADL's that may No increase risk of falls Signs or symptoms of abuse and/or No neglect since last visit Have you been in the hospital since your No last visit? Has dressing in place as prescribed Yes Has compression in place as prescribed N/A Has offloadiing in place as prescribed N/A Experienced any changes in pain level or No management Pain Scale: 0-10 Numeric Is Patient Pain Free? Yes - Nurse 1 - General Ulcer Measurement Start: 08/21/21 13:22 Freq: Status: Active Protocol: Activity Type Activity Date Activity User E-Sign Co-Sign Detail Recorded Client Recorded Date Recorded By Document 08/21/21 13:23 DIANNE [id number] 08/21/21 13:25 DIANNE 08/21/21 13:23 Wound Center Nurse 1 #1 Sacral -Current Size (cm) - Length 7.5 -Current Size (cm) - Width 3.5 -Current Size (cm) - Depth 5.8 -Total Square Cm 26.25 -Exudate Amt Medium -Exudate Type Serosanguineous -Wound Margin Distinct, Outline Attached -Granulation Amt Large (67-100%) -Granulation Quality Red -Necrosis Amt Medium (34-66%) -Necrotic Tissue Type Adherent Slough -Structure Exposed Tendon,Bone,Fat Layer Exposed -Texture (Laney-wound Skin Appearance) Not Assessed, Scarring -Moisture (Laney-wound Skin Appearance) No Abnormality, Assessed -Color (Laney-wound Skin Appearance) No Abnormality, Assessed -Temperature (Laney-wound Skin No Abnormality Appearance) (Pt Warm) -Tenderness on Palpation (Laney-wound Yes Skin Appearance) -Ulcer Cleansing Soap and Water -Foul Odor after Cleansing No -Anesthetic Used 4% Lidocaine Solution WC - Nurse 2 - General Ulcer CM Notes Start: 08/21/21 13:22 Freq: Status: Active Protocol: Activity Type Activity Date Activity User E-Sign Co-Sign Detail Recorded Client Recorded Date Recorded By Document 08/21/21 13:29 NIDHI [id number] 08/21/21 13:35 NIDHI 08/21/21 13:29 Wound Center Nurse 2 -Time 13:29 -Correct Patient Yes -Correct Side, Site, Position Yes -Correct Procedure Yes -Procedure Performed Yes -Type of Procedure Debridement -Clinical Debridement Muscle / Fascia -Tissue Removed Muscle -Post Debridement (cm) - Length 7.2 -Post Debridement (cm) - Width 8.8 -Post Debridement (cm) - Depth 2 -Total Square (Post) (cm) 63.36 -Area of Debridement (cm) - Length 7.2 -Area of Debridement (cm) - Width 8.8 -Total Square (Area) (cm) 63.36 -Tunneling Yes -Tunneling Position (O'clock) 5 -Tunneling Distance (cm) 3.5 -Undermining/Tunneling No -Circular Undermining No -Wound/Ulcer Outcome Not Healed -Ulcer Cleansing Rinsed/ Irrigated with Saline -Foul Odor after Cleansing No -Bioengineered Tissue No -Bleeding Controlled with Pressure -Offloading No -Treatment Response Procedure Tolerated Well -Debridement - Muscle / Fascia, 1st Yes 20sq cm -Debridement, Muscle/Fascia, ea addt'l 3 20sq cm or part thereof Pain Scale: 0-10 Numeric Is Patient Pain Free? Yes Assessment/Plan Assessment/Plan (1) Pressure ulcer of sacral region, stage 4: CODE(S): L89.154 - Pressure ulcer of sacral region, stage 4 (2) Debility: CODE(S): R53.81 - Other malaise (3) Colostomy in place: CODE(S): Z93.3 - Colostomy status (4) S/P excisional debridement: CODE(S): Z98.890 - Other specified postprocedural states (5) Diffuse large B cell lymphoma: CODE(S): C83.30 - Diffuse large B-cell lymphoma, unspecified site QUALIFIERS: Lymphoma site: unspecified region Qualified Code(s): C83.30 - Diffuse large B-cell lymphoma, unspecified site PLAN: We took a wound VAC holiday 2 weeks ago for one week due to her periwound being excoriated. Home health restarted her wound vac last week. Her states that the her laney wound improved with the VAC holiday, but it did not completely heal before the VAC was restarted. Today her laney wound is excoriated with a pink rash and it appears to by yeast. Will start her on Diflucan daily for 7 days to see if this will clear up her rash. If it does not then we will need to take another wound VAC holiday to help the periwound heal. Wound care - Wound VAC at 150 mmHg to be change 3 times per week. Encourage increased protein intake to help with wound healing. Follow up 1 week. Call or come in sooner if have any questions or concerns.
[2021-08-28 13:33] VITALS: BP 146/65; PULSE 92; RESP 16; TEMP 36.2; BMI 25.9
--- NOTE | 2021-08-28 14:39 | PN.PCM_ITS ---
History of Present Illness Date of Service: 08/28/21 Chief Complaint: Sacral ulcer History of Wound: CHRISTOPHER CORONEL, is a 75 Female with history of diffuse large B- cell lymphoma,who had emergency evacuation, biopsy of epidural mass causing T4- T7 spinal cord compression. She had progressive paraplegia. She went to TCU for acute rehab for this progressive paraplegia. During that time she had worsening sacral pressure sore with skin necrosis. Surgery 05/15/21 - Excision necrotic sacral pressure sore, Stage IV, with partial ostectomy for osteomyelitis. Pathology from surgery on 05/15/21 of bone showed acute osteomyelitis. Operative tissue culture positive for Escherichia coli, Klebsiella, Vanc. Resist. E. gallinarum, Vanc. Resist. E. faecalis. Operative bone culture positive for Escherichia coli, Vanc. Resist. E. faecalis, Vanc. Resist. E. gallinarum. She was on Meropenem, Vancomycin has been stopped and Linezolid started. ID is managing. Radiation from 05/17/21 - 06/12/21 18 treatments to T4-T7 area including paraspinal region. 06/06/21- Laparoscopic sigmoid colectomy with creation of end colostomy for fecal diversion. Was in TCU 06/08/21-07/20/21. Wound Care - Wound VAC to 150 mmHg. Dressing changed 3 times per week. Diflucan did help improve her periwound rash. Progress of Wound: Ulcer is stable. Laney wound yeast like rash is improved after being on diflucan for a week. Objective Data Objective Data Vital Signs: Vital Signs Temp Pulse Resp BP 97.1 F L 92 16 146/65 H 08/28/21 13:33 08/28/21 13:33 08/28/21 13:33 08/28/21 13:33 Oxygen Delivery Method Room Air Weight: 155 lb 11.464 oz Body Mass Index (BMI) 25.9 Charges/Coding Procedures Integumentary 111xxx-113xx: 21600 Casie musc/fascia 20 sq cm/< Add On Codes: 37529 Casie musc/fascia add-on (x2) Physical Exam Const alert and oriented x3 General Appearance: cooperative HEENT normocephalic Eyes PERRL Lymph Lymphatic: no lymphedema noted Resp normal respiratory effort Cardio regular rate GI non-tender Palpation: soft Extremity normal capillary refill Skin Wound Narrative: Sacral ulcer is beefy pink. Coccyx bone is still exposed but is starting to have granulation tissue cover it. She had some fat necrosis at the base of the ulcer that was removed today. Neuro CN's II-XII intact bilaterally Psych Appearance: grossly normal Debridement Note Debridement Note Wound debrided: Sacral ulcer Laterality: Not Applicable Wound Grade/Stage: Stage IV Type of Debridement: Excisional debridement Anesthesia Used: 4% Lidocaine Solution and 5% Lidocaine Gel Depth: Down to and including healthy tissue, in the subcutaneous layer and to muscle Percentage of wound debrided: 100 Instrument Used: 7mm curette and #15 blade (Pick ups to remove some of the fat necrosis at 6 o'clock) Tissue Removed: Subcutaneous tissue and slough, into the muscle, fat necrosis. Severity: Fat Layer Exposed Amount of bleeding with debridement: Moderate Bleeding Controlled with: Pressure, Compression and gauze and Silver Nitrate (Silver nitrate used on the edge of ulcer around 7-9 o'clock where oozing occured after debridement) Patient tolerated procedure: Patient tolerated procedure well Post-Debridement Measurements and Additional Note: Post-Debridement Measurements/Treatment - Nurse 1 - General Ulcer Assessment Start: 08/21/21 13:22 Freq: Status: Active Protocol: NICOLAS.FLACO Activity Type Activity Date Activity User E-Sign Co-Sign Detail Recorded Client Recorded Date Recorded By Document 08/21/21 13:23 [id number] 08/21/21 13:25 Document 08/28/21 13:33 [facility] [id number] 08/28/21 13:36 [facility] 08/21/21 08/28/21 13:23 13:33 - Today's Visit Information Type of service Follow-up Visit Follow-up Visit (Physician/ASSOCIATE MERCHANDISE PLANNER (Physician/ASSOCIATE MERCHANDISE PLANNER ) ) Arrival Mode Wheelchair Wheelchair Transfer Assistance Will Lift Transfer Assist (Other) 2 assist Accompanied by and son Patient Identification Verified (Name & Yes Yes ) Patient Requires Transmission-Based No Precautions Height and Weight Body Mass Index (BMI) 25.9 25.9 BMI Classification Overweight Overweight Vital Signs Temperature (97.8 F-99.1 F) 97.4 F L 97.1 F L Temperature Source Oral Temporal Pulse Rate (60-100) 91 92 Pulse Location Monitor Monitor Respiratory Rate (12-18) 16 Respiratory rate source Observation Oxygen Delivery Method Room Air Blood Pressure (90/60-120/80) 131/48 H 146/65 H Blood Pressure Mean (mm Hg) 75 92 Source Monitor Monitor Position Semi-Fowlers Sitting Blood Pressure Location Right Arm Left Forearm History Since Last Visit- (Skip if this is Patient's initial visit) Have you changed medications since your No No last visit? Any new allergies or adverse reactions No No Had a fall/change in ADL's that may No No increase risk of falls Signs or symptoms of abuse and/or No No neglect since last visit Have you been in the hospital since your No No last visit? Has dressing in place as prescribed Yes Yes Has compression in place as prescribed N/A N/A Has offloadiing in place as prescribed N/A N/A Experienced any changes in pain level or No No management Left Footwear Slipper Right Footwear Slipper Pain Scale: 0-10 Numeric Is Patient Pain Free? Yes Yes WC - Nurse 1 - General Ulcer Measurement Start: 08/21/21 13:22 Freq: Status: Active Protocol: Activity Type Activity Date Activity User E-Sign Co-Sign Detail Recorded Client Recorded Date Recorded By Document 08/21/21 13:23 [id number] 08/21/21 13:25 KR Document 08/28/21 13:33 [facility] [id number] 08/28/21 13:36 [facility] 08/21/21 08/28/21 13:23 13:33 Wound Center Nurse 1 #1 Sacral -Combined with other wound No -Current Size (cm) - Length 7.5 6.7 -Current Size (cm) - Width 3.5 10 -Current Size (cm) - Depth 5.8 2.5 -Total Square Cm 26.25 67.0 -Photo Taken No -Epithelialization None Present -Tunneling No -Undermining/Tunneling Yes -Undermining/Tunneling Starts (O'clock 5 ) -Undermining/Tunneling Ends (O'clock) 7 -Maximum Distance (cm) 3.1 -Circular Undermining No -Exudate Amt Medium Large -Exudate Type Serosanguineous Serosanguineous -Wound Margin Distinct, Distinct, Outline Outline Attached Attached -Granulation Amt Large (67-100%) Large (67-100%) -Granulation Quality Red Red -Slough/Fibrin Yes -Necrosis Amt Medium (34-66%) Small (1-33%) -Necrotic Tissue Type Adherent Slough Adherent Slough -Structure Exposed Tendon,Bone,Fat Layer Exposed -Texture (Laney-wound Skin Appearance) Not Assessed, Assessed, Scarring Scarring -Moisture (Laney-wound Skin Appearance) No Abnormality, Assessed Assessed -Color (Laney-wound Skin Appearance) No Abnormality, Assessed, Assessed Erythema -Temperature (Laney-wound Skin No Abnormality No Abnormality Appearance) (Pt Warm) (Pt Warm) -Tenderness on Palpation (Laney-wound Yes No Skin Appearance) -Ulcer Cleansing Soap and Water Soap and Water -Foul Odor after Cleansing No No -Anesthetic Used 4% Lidocaine 4% Lidocaine Solution Solution WC - Nurse 2 - General Ulcer CM Notes Start: 08/21/21 13:22 Freq: Status: Active Protocol: Activity Type Activity Date Activity User E-Sign Co-Sign Detail Recorded Client Recorded Date Recorded By Document 08/21/21 13:29 [id number] 08/21/21 13:35 Document 08/28/21 14:06 [id number] 08/28/21 14:11 08/21/21 08/28/21 13:29 14:06 Wound Center Nurse 2 #1 Sacral -Time 13:29 14:06 -Correct Patient Yes Yes -Correct Side, Site, Position Yes Yes -Correct Procedure Yes Yes -Procedure Performed Yes Yes -Type of Procedure Debridement Debridement -Clinical Debridement Muscle / Fascia Muscle / Fascia -Tissue Removed Muscle Muscle -Post Debridement (cm) - Length 7.2 7.5 -Post Debridement (cm) - Width 8.8 8 -Post Debridement (cm) - Depth 2 3 -Total Square (Post) (cm) 63.36 60.0 -Area of Debridement (cm) - Length 7.2 7.5 -Area of Debridement (cm) - Width 8.8 8 -Total Square (Area) (cm) 63.36 60.0 -Tunneling Yes Yes -Tunneling Position (O'clock) 5 4 -Tunneling Distance (cm) 3.5 2.7 -Undermining/Tunneling No No -Circular Undermining No No -Wound/Ulcer Outcome Not Healed Not Healed -Ulcer Cleansing Rinsed/ Rinsed/ Irrigated with Irrigated with Saline Saline -Foul Odor after Cleansing No No -Bioengineered Tissue No No -Bleeding Controlled with Pressure Pressure -Offloading No No -Treatment Response Procedure Procedure Tolerated Well Tolerated Well -Debridement - Muscle / Fascia, 1st Yes Yes 20sq cm -Debridement, Muscle/Fascia, ea addt'l 3 2 20sq cm or part thereof Pain Scale: 0-10 Numeric Is Patient Pain Free? Yes Yes - Nurse 3 - General Ulcer D/C NN Start: 08/21/21 13:22 Freq: Status: Active Protocol: Activity Type Activity Date Activity User E-Sign Co-Sign Detail Recorded Client Recorded Date Recorded By Document 08/28/21 14:37 DL [id number] 08/28/21 14:38 DL 08/28/21 14:37 Wound Care Nurse 3 #1 Sacral -Ulcer Cleansing Rinsed/ Irrigated with Saline -Foul Odor after Cleansing No -Negative Pressure Wound Therapy Continue -Setting (mmHg) 150 -Negative Pressure is Continuous -NPWT Application Charge NPWT </= 50 sq cm ($) Pain Scale: 0-10 Numeric Is Patient Pain Free? Yes WC - Visit Discharge Discharge Condition Stable Ambulatory Status Wheelchair Facility Type Home Health Orders Sent Yes Assessment/Plan Assessment/Plan (1) Pressure ulcer of sacral region, stage 4: CODE(S): L89.154 - Pressure ulcer of sacral region, stage 4 (2) Colostomy in place: CODE(S): Z93.3 - Colostomy status (3) S/P excisional debridement: CODE(S): Z98.890 - Other specified postprocedural states (4) Diffuse large B cell lymphoma: CODE(S): C83.30 - Diffuse large B-cell lymphoma, unspecified site QUALIFIERS: Lymphoma site: unspecified region Qualified Code(s): C83.30 - Diffuse large B-cell lymphoma, unspecified site (5) Paraplegia: CODE(S): G82.20 - Paraplegia, unspecified PLAN: Wound care - Wound VAC at 150 mmHg to be change 3 times per week. Her laney wound improved with the diflucan for one week and the VAC holiday. Instructed family to call if her laney wound worsens again and I will continue her diflucan for another 7 days. Silver nitrate and pressure was used on the edge of the ulcer from 7-9 o'clock where she had some oozing after debridement. Patient tolerated the procedure well. Encourage increased protein intake to help with wound healing. Follow up 2 weeks. Call or come in sooner if have any questions or concerns.
--- NOTE | 2021-09-04 12:12 | WC ---
nurse Little called and left msg. States pt's wound w/ strong odor w/ each vac change. Barbra VASQUEZ and Yi BLAKE updated. This nurse called back and left msg to ensure wound is being washed w/ soap and water well w/ each vac change, then rinse w/ 0.25% Dakins.
[2021-09-11 13:12] VITALS: BP 147/67; PULSE 71; BMI 25.9
--- NOTE | 2021-09-11 14:22 | PN.PCM_ITS ---
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 She had progressive paraplegia. She went to TCU for acute rehab for this progressive paraplegia. During that time she had worsening sacral pressure sore with skin necrosis. Surgery 05/15/21 - Excision necrotic sacral pressure sore, Stage IV, with partial ostectomy for osteomyelitis. Pathology from surgery on 05/15/21 of bone showed acute osteomyelitis. Operative tissue culture positive for Escherichia coli, Klebsiella, Vanc. Resist. E. gallinarum, Vanc. Resist. E. faecalis. Operative bone culture positive for Escherichia coli, Vanc. Resist. E. faecalis, Vanc. Resist. E. gallinarum. She was on Meropenem, Vancomycin has been stopped and Linezolid started. ID is managing. Radiation from 05/17/21 - 06/12/21 18 treatments to T4-T7 area including paraspinal region. 06/06/21- Laparoscopic sigmoid colectomy with creation of end colostomy for fecal diversion. Was in TCU 06/08/21-07/20/21. Wound Care - Wound VAC to 150 mmHg. Dressing changed 3 times per week. New left ischial ulcer place Aquacel-Ag/silver alginate covered by Mepilex every other day. Progress of Wound: Ulcer is stable. Laney wound rash has resolved. New ulcer on left ischium. Objective Data Objective Data Vital Signs: Vital Signs Temp Pulse Resp BP 97.1 F L 71 16 147/67 H 08/28/21 13:33 09/11/21 13:12 08/28/21 13:33 09/11/21 13:12 Oxygen Delivery Method Room Air Weight: 155 lb 11.464 oz Body Mass Index (BMI) 25.9 Charges/Coding Addendum Addendum: Left ischial ulcer 40723 Procedures Integumentary 111xxx-113xx: 35743 Casie musc/fascia 20 sq cm/< (sacral ulcer) Add On Codes: 26559 Casie musc/fascia add-on (x3) Physical Exam Const alert and oriented x3 General Appearance: cooperative HEENT normocephalic Lymph Lymphatic: no lymphedema noted Resp normal respiratory effort Cardio regular rate GI non-tender Palpation: soft Extremity normal capillary refill Skin Wound Narrative: Sacral ulcer has improved, the coccyx has more coverage with granulation tissue. Laney wound is improved. She has a new ulcer on left ischium. Neuro CN's II-XII intact bilaterally Psych Appearance: grossly normal Debridement Note Debridement Note Wound debrided: Sacral ulcer Laterality: Not Applicable Wound Grade/Stage: Stage IV Depth: Down to and including healthy tissue, in the subcutaneous layer and to muscle Percentage of wound debrided: 100 Instrument Used: 7mm curette Tissue Removed: Subcutaneous tissue and slough into the muscle with bone exposure. Severity: Fat Layer Exposed Bleeding Controlled with: Pressure and Compression and gauze Patient tolerated procedure: Patient tolerated procedure well Debridement Free Text: Tunnel has increased in depth. Post-Debridement Measurements and Additional Note: Post-Debridement Measurements/Treatment WC - Nurse 1 - General Ulcer Assessment Start: 08/21/21 13:22 Freq: Status: Active Protocol: NICOLAS.FLACO Activity Type Activity Date Activity User E-Sign Co-Sign Detail Recorded Client Recorded Date Recorded By Document 08/21/21 13:23 [id number] 08/21/21 13:25 Document 08/28/21 13:33 [facility] [id number] 08/28/21 13:36 [facility] Document 09/11/21 13:12 DL [id number] 09/11/21 13:26 DL 08/21/21 08/28/21 09/11/21 13:23 13:33 13:12 - Today's Visit Information Type of service Follow-up Visit Follow-up Visit Follow-up Visit (Physician/[employer] (Physician/[employer] (Physician/[employer] ) ) ) Arrival Mode Wheelchair Wheelchair Wheelchair Transfer Assistance Will Lift Will Lift Transfer Assist (Other) 2 assist Accompanied by and son val and son Patient Identification Verified (Name & Yes Yes Yes ) Patient Requires Transmission-Based No No Precautions Height and Weight Body Mass Index (BMI) 25.9 25.9 25.9 BMI Classification Overweight Overweight Overweight Vital Signs Temperature (97.8 F-99.1 F) 97.4 F L 97.1 F L Temperature Source Oral Temporal Pulse Rate (60-100) 91 92 71 Pulse Location Monitor Monitor Monitor Respiratory Rate (12-18) 16 Respiratory rate source Observation Oxygen Delivery Method Room Air Blood Pressure (90/60-120/80) 131/48 H 146/65 H 147/67 H Blood Pressure Mean (mm Hg) 75 92 93 Source Monitor Monitor Monitor Position Semi-Fowlers Sitting Blood Pressure Location Right Arm Left Forearm History Since Last Visit- (Skip if this is Patient's initial visit) Have you changed medications since your No No No last visit? Any new allergies or adverse reactions No No No Had a fall/change in ADL's that may No No No increase risk of falls Signs or symptoms of abuse and/or No No No neglect since last visit Have you been in the hospital since your No No No last visit? Has dressing in place as prescribed Yes Yes Yes Has compression in place as prescribed N/A N/A N/A Has offloadiing in place as prescribed N/A N/A Yes Experienced any changes in pain level or No No No management Left Footwear Slipper Right Footwear Slipper Pain Scale: 0-10 Numeric Is Patient Pain Free? Yes Yes Yes WC - Nurse 1 - General Ulcer Measurement Start: 08/21/21 13:22 Freq: Status: Active Protocol: Activity Type Activity Date Activity User E-Sign Co-Sign Detail Recorded Client Recorded Date Recorded By Document 08/21/21 13:23 KR [id number] 08/21/21 13:25 KR Document 08/28/21 13:33 [facility] [id number] 08/28/21 13:36 [facility] Document 09/11/21 13:12 DL [id number] 09/11/21 13:26 DL 08/21/21 08/28/21 09/11/21 13:23 13:33 13:12 Wound Center Nurse 1 #2 L Ischial -Current Size (cm) - Length 2 -Current Size (cm) - Width 2 -Current Size (cm) - Depth 0.2 -Total Square Cm 4 -Photo Taken Yes -Classification - Thickness Unclassifiable (Eschar Covered ) -Exudate Amt Small -Exudate Type Serosanguineous -Wound Margin Distinct, Outline Attached -Granulation Amt None Present (0 %) -Necrosis Amt Large (67-100%) -Necrotic Tissue Type Eschar -Structure Exposed N/A -Texture (Laney-wound Skin Appearance) Scarring -Moisture (Laney-wound Skin Appearance) No Abnormality -Color (Laney-wound Skin Appearance) No Abnormality -Temperature (Laney-wound Skin No Abnormality Appearance) (Pt Warm) -Tenderness on Palpation (Laney-wound No Skin Appearance) -Ulcer Cleansing Soap and Water -Foul Odor after Cleansing No -Anesthetic Used 4% Lidocaine Solution #1 Sacral -Combined with other wound No -Current Size (cm) - Length 7.5 6.7 7 -Current Size (cm) - Width 3.5 10 9.8 -Current Size (cm) - Depth 5.8 2.5 3.5 -Total Square Cm 26.25 67.0 68.6 -Photo Taken No No -Epithelialization None Present -Tunneling No -Undermining/Tunneling Yes -Undermining/Tunneling Starts (O'clock 5 ) -Undermining/Tunneling Ends (O'clock) 7 -Maximum Distance (cm) 3.1 -Circular Undermining No -Exudate Amt Medium Large Medium -Exudate Type Serosanguineous Serosanguineous Serosanguineous -Wound Margin Distinct, Distinct, Distinct, Outline Outline Outline Attached Attached Attached -Granulation Amt Large (67-100%) Large (67-100%) Medium (34-66%) -Granulation Quality Red Red Red -Slough/Fibrin Yes -Necrosis Amt Medium (34-66%) Small (1-33%) Medium (34-66%) -Necrotic Tissue Type Adherent Slough Adherent Slough Adherent Slough -Structure Exposed Tendon,Bone,Fat Bone Layer Exposed -Texture (Laney-wound Skin Appearance) Not Assessed, Assessed, Scarring Scarring Scarring -Moisture (Laney-wound Skin Appearance) No Abnormality, Assessed No Abnormality Assessed -Color (Laney-wound Skin Appearance) No Abnormality, Assessed, No Abnormality Assessed Erythema -Temperature (Laney-wound Skin No Abnormality No Abnormality No Abnormality Appearance) (Pt Warm) (Pt Warm) (Pt Warm) -Tenderness on Palpation (Laney-wound Yes No No Skin Appearance) -Ulcer Cleansing Soap and Water Soap and Water Soap and Water -Foul Odor after Cleansing No No No -Anesthetic Used 4% Lidocaine 4% Lidocaine 4% Lidocaine Solution Solution Solution WC - Nurse 2 - General Ulcer CM Notes Start: 08/21/21 13:22 Freq: Status: Active Protocol: Activity Type Activity Date Activity User E-Sign Co-Sign Detail Recorded Client Recorded Date Recorded By Document 08/21/21 13:29 [id number] 08/21/21 13:35 Document 08/28/21 14:06 [id number] 08/28/21 14:11 Document 09/11/21 13:53 [id number] 09/11/21 14:00 08/21/21 08/28/21 09/11/21 13:29 14:06 13:53 Wound Center Nurse 2 #2 L Ischial -Time 13:55 -Correct Patient Yes -Correct Side, Site, Position Yes -Correct Procedure Yes -Procedure Performed Yes -Type of Procedure Debridement -Clinical Debridement Subcutaneous -Tissue Removed Subcutaneous -Post Debridement (cm) - Length 2.0 -Post Debridement (cm) - Width 2.0 -Post Debridement (cm) - Depth 1.2 -Total Square (Post) (cm) 4.00 -Area of Debridement (cm) - Length 2.0 -Area of Debridement (cm) - Width 2.0 -Total Square (Area) (cm) 4.00 -Tunneling No -Undermining/Tunneling No -Circular Undermining No -Wound/Ulcer Outcome Not Healed -Ulcer Cleansing Rinsed/ Irrigated with Saline -Foul Odor after Cleansing No -Bioengineered Tissue No -Bleeding Controlled with Pressure -Offloading No -Treatment Response Procedure Tolerated Well -Debridement - Subq, 1st 20sq cm Yes #1 Sacral -Time 13:29 14:06 13:56 -Correct Patient Yes Yes Yes -Correct Side, Site, Position Yes Yes Yes -Correct Procedure Yes Yes Yes -Procedure Performed Yes Yes Yes -Type of Procedure Debridement Debridement Debridement -Clinical Debridement Muscle / Fascia Muscle / Fascia Muscle / Fascia -Tissue Removed Muscle Muscle Muscle -Post Debridement (cm) - Length 7.2 7.5 8.5 -Post Debridement (cm) - Width 8.8 8 9.3 -Post Debridement (cm) - Depth 2 3 1.8 -Total Square (Post) (cm) 63.36 60.0 79.05 -Area of Debridement (cm) - Length 7.2 7.5 8.5 -Area of Debridement (cm) - Width 8.8 8 9.3 -Total Square (Area) (cm) 63.36 60.0 79.05 -Tunneling Yes Yes Yes -Tunneling Position (O'clock) 5 4 4 -Tunneling Distance (cm) 3.5 2.7 4.8 -Undermining/Tunneling No No No -Circular Undermining No No No -Wound/Ulcer Outcome Not Healed Not Healed Not Healed -Ulcer Cleansing Rinsed/ Rinsed/ Rinsed/ Irrigated with Irrigated with Irrigated with Saline Saline Saline -Foul Odor after Cleansing No No No -Bioengineered Tissue No No No -Bleeding Controlled with Pressure Pressure Pressure -Offloading No No No -Treatment Response Procedure Procedure Procedure Tolerated Well Tolerated Well Tolerated Well -Debridement - Muscle / Fascia, 1st Yes Yes Yes 20sq cm -Debridement, Muscle/Fascia, ea addt'l 3 2 3 20sq cm or part thereof Pain Scale: 0-10 Numeric Is Patient Pain Free? Yes Yes Yes WC - Nurse 3 - General Ulcer D/C NN Start: 08/21/21 13:22 Freq: Status: Active Protocol: Activity Type Activity Date Activity User E-Sign Co-Sign Detail Recorded Client Recorded Date Recorded By Document 08/28/21 14:37 DL [id number] 08/28/21 14:38 DL Edit Result 08/28/21 14:37 DL (1) [id number] 08/29/21 07:14 PL Document 09/11/21 14:14 DL [id number] 09/11/21 14:16 DL (1) #1 Sacral - NPWT Application Charge NPWT </= 50 sq cm => NPWT & Debridement ($) => (nc) 08/28/21 09/11/21 14:37 14:14 Wound Care Nurse 3 #2 L Ischial -Ulcer Cleansing Soap and Water -Foul Odor after Cleansing No -Primary Dressing Applied Aquacel AG 4x4, Mepilex Border -Aquacel AG 4x4 1 -Mepilex Border 1 #1 Sacral -Ulcer Cleansing Rinsed/ Soap and Water Irrigated with Saline -Foul Odor after Cleansing No No -Negative Pressure Wound Therapy Continue Continue -Setting (mmHg) 150 150 -Negative Pressure is Continuous Continuous -NPWT Application Charge NPWT & NPWT </= 50 sq Debridement (nc cm ($) ) Treatment Response Procedure Tolerated Well Pain Scale: 0-10 Numeric Is Patient Pain Free? Yes Yes WC - Visit Discharge Discharge Condition Stable Stable Ambulatory Status Wheelchair Wheelchair Transportation Private Auto Facility Type Home Health Home Health Orders Sent Yes Yes Additional Wound Wound debrided: Ischial ulcer Laterality: Left Wound Grade/Stage: Stage IV Type of Debridement: Excisional debridement Anesthesia Used: 5% Lidocaine Gel Depth: Down to and including healthy tissue and in the subcutaneous layer Percentage of wound debrided: 100 Instrument Used: 3mm curette and #15 blade Tissue Removed: Subcutaneous tissue and slough, deroofed ulcer with #15 blade Severity: Fat Layer Exposed Amount of bleeding with debridement: Mild Bleeding Controlled with: Compression and gauze Patient tolerated procedure: Patient tolerated procedure well Assessment/Plan Assessment/Plan (1) Pressure ulcer of sacral region, stage 4: CODE(S): L89.154 - Pressure ulcer of sacral region, stage 4 (2) Decubitus ulcer of left ischium, stage 4: CODE(S): L89.324 - Pressure ulcer of left buttock, stage 4 (3) Osteomyelitis of pelvis: CODE(S): M86.9 - Osteomyelitis, unspecified (4) Paraplegia: CODE(S): G82.20 - Paraplegia, unspecified (5) History of radiation therapy: CODE(S): Z92.3 - Personal history of irradiation (6) Debility: CODE(S): R53.81 - Other malaise (7) Paraplegia: CODE(S): G82.20 - Paraplegia, unspecified (8) Colostomy in place: CODE(S): Z93.3 - Colostomy status PLAN: Wound care - Wound VAC at 150 mmHg to be change 3 times per week of sacral ulcer. Her laney wound has improved. New left ischial ulcer Aquacel- Ag/silver alginate covered by Mepilex every other day. Encourage increased protein intake to help with wound healing. Follow up 2 weeks. Call or come in sooner if have any questions or concerns.
== END 2021-09-19 23:59 ==
LOC: WC 13:30
PROVIDERS: PCP Family Medicine; Visit Provider Nurse Practitioner Family
DX: L89.154 Pressure ulcer of sacral region, stage 4 (principal); C83.30 Diffuse large B-cell lymphoma, unspecified site; G82.20 Paraplegia, unspecified; Z93.3 Colostomy status; I48.91 Unspecified atrial fibrillation; I10 Essential (primary) hypertension; I25.10 Atherosclerotic heart disease of native coronary artery without angina pectoris; Z79.899 Other long term (current) drug therapy; Z79.01 Long term (current) use of anticoagulants
CPT/HCPCS: 11042; 11043; 11046; 87070; 87075; 87077; 87186; 87205; 97605

== ENCOUNTER 2021-09-25 13:30 | Outpatient (RCR) | payer OTHER, SELFPAY ==
[2021-09-20 00:35] VITALS: BP 147/67; PULSE 71; RESP 16; TEMP 36.2; BMI 25.9
[2021-09-25 13:25] VITALS: BP 164/71; PULSE 70; RESP 20; TEMP 36.1; BMI 25.9
--- NOTE | 2021-09-25 14:38 | PN.PCM_ITS ---
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 She had progressive paraplegia. She went to TCU for acute rehab for this progressive paraplegia. During that time she had worsening sacral pressure sore with skin necrosis. Surgery 05/15/21 - Excision necrotic sacral pressure sore, Stage IV, with partial ostectomy for osteomyelitis. Pathology from surgery on 05/15/21 of bone showed acute osteomyelitis. Operative tissue culture positive for Escherichia coli, Klebsiella, Vanc. Resist. E. gallinarum, Vanc. Resist. E. faecalis. Operative bone culture positive for Escherichia coli, Vanc. Resist. E. faecalis, Vanc. Resist. E. gallinarum. She was on Meropenem, Vancomycin has been stopped and Linezolid started. ID is managing. Radiation from 05/17/21 - 06/12/21 18 treatments to T4-T7 area including paraspinal region. 06/06/21- Laparoscopic sigmoid colectomy with creation of end colostomy for fecal diversion. Was in TCU 06/08/21-07/20/21. Wound Care - Wound VAC to 150 mmHg. Dressing changed 3 times per week. New left ischial ulcer will start the wound VAC on that also. Progress of Wound: Improved. She continues to have a large tunnel at 7 o'clock on the sacral ulcer. The left ischial ulcer has increased fat necrosis that was removed today. Objective Data Objective Data Vital Signs: Vital Signs Temp Pulse Resp BP 96.9 F L 70 20 H 164/71 H 09/25/21 13:25 09/25/21 13:25 09/25/21 13:25 09/25/21 13:25 Weight: 155 lb 11.464 oz Body Mass Index (BMI) 25.9 Charges/Coding Addendum Addendum: 78978 (left ischial ulcer) Procedures Integumentary 111xxx-113xx: 83275 Casie musc/fascia 20 sq cm/< (Sacral ulcer) Add On Codes: 16017 Casie musc/fascia add-on (x2) Physical Exam Const alert and oriented x3 General Appearance: cooperative HEENT normocephalic Eyes PERRL Lymph Lymphatic: no lymphedema noted Resp normal respiratory effort Cardio regular rate GI non-tender Palpation: soft Extremity normal to inspection Skin Wound Narrative: Sacral ulcer is beefy pink, the bone is starting to get covered with granulation tissue. There is a 4 cm tunnel at 7 o'clock. Her left ischial ulcer has some fat necrosis that was removed. It is stable. Neuro CN's II-XII intact bilaterally Psych Appearance: grossly normal Debridement Note Debridement Note Wound debrided: Sacral ulcer Laterality: Not Applicable Wound Grade/Stage: Stage IV Type of Debridement: Excisional debridement Anesthesia Used: 4% Lidocaine Solution and 5% Lidocaine Gel Depth: Down to and including healthy tissue, in the subcutaneous layer, to muscle and to bone Percentage of wound debrided: 100 Instrument Used: 7mm curette Tissue Removed: Subcutaneous tissue and slough, into the muscle with bone exposure. Severity: Fat Layer Exposed Amount of bleeding with debridement: Mild Bleeding Controlled with: Pressure and Compression and gauze Patient tolerated procedure: Patient tolerated procedure well Post-Debridement Measurements and Additional Note: Post-Debridement Measurements/Treatment - Nurse 1 - General Ulcer Assessment Start: 09/25/21 13:16 Freq: Status: Active Protocol: WC.LOWKEVINT Activity Type Activity Date Activity User E-Sign Co-Sign Detail Recorded Client Recorded Date Recorded By Document 09/25/21 13:25 DL [id number] 09/25/21 13:30 DL 09/25/21 13:25 - Today's Visit Information Type of service Follow-up Visit (Physician/JACQUARD LOOM FIXER ) Arrival Mode Wheelchair Transfer Assistance Will Lift Patient Identification Verified (Name & Yes ) Patient Requires Transmission-Based No Precautions Height and Weight Body Mass Index (BMI) 25.9 BMI Classification Overweight Vital Signs Temperature (97.8 F-99.1 F) 96.9 F L Temperature Source Temporal Pulse Rate (60-100) 70 Pulse Location Monitor Respiratory Rate (12-18) 20 H Respiratory rate source Observation Blood Pressure (90/60-120/80) 164/71 H Blood Pressure Mean (mm Hg) 102 Source Monitor History Since Last Visit- (Skip if this is Patient's initial visit) Have you changed medications since your No last visit? Any new allergies or adverse reactions No Had a fall/change in ADL's that may No increase risk of falls Signs or symptoms of abuse and/or No neglect since last visit Have you been in the hospital since your No last visit? Has dressing in place as prescribed Yes Has compression in place as prescribed N/A Experienced any changes in pain level or No management Pain Scale: 0-10 Numeric Is Patient Pain Free? Yes WC - Nurse 1 - General Ulcer Measurement Start: 09/25/21 13:16 Freq: Status: Active Protocol: Activity Type Activity Date Activity User E-Sign Co-Sign Detail Recorded Client Recorded Date Recorded By Document 09/25/21 13:25 DL [id number] 09/25/21 13:30 DL 09/25/21 13:25 Wound Center Nurse 1 #2 L Ischial -Current Size (cm) - Length 3 -Current Size (cm) - Width 2.5 -Current Size (cm) - Depth 0.3 -Total Square Cm 7.5 -Photo Taken No -Exudate Amt Medium -Exudate Type Serosanguineous -Wound Margin Distinct, Outline Attached -Granulation Amt Medium (34-66%) -Granulation Quality [place] -Necrosis Amt Medium (34-66%) -Necrotic Tissue Type Adherent Slough -Structure Exposed N/A -Texture (Laney-wound Skin Appearance) Scarring -Color (Laney-wound Skin Appearance) No Abnormality -Temperature (Laney-wound Skin No Abnormality Appearance) (Pt Warm) -Tenderness on Palpation (Laney-wound No Skin Appearance) -Ulcer Cleansing Soap and Water -Foul Odor after Cleansing Yes, Due to Product Use -Anesthetic Used 4% Lidocaine Solution #1 Sacral -Current Size (cm) - Length 6.5 -Current Size (cm) - Width 7.8 -Current Size (cm) - Depth 2.5 -Total Square Cm 50.70 -Photo Taken No -Tunneling Position (O'clock) 4 -Tunneling Distance (cm) 5.6 -Exudate Amt Medium -Exudate Type Serosanguineous -Wound Margin Distinct, Outline Attached -Granulation Amt Medium (34-66%) -Granulation Quality Red -Necrosis Amt Medium (34-66%) -Necrotic Tissue Type Adherent Slough -Structure Exposed Bone -Texture (Laney-wound Skin Appearance) Scarring -Moisture (Laney-wound Skin Appearance) No Abnormality -Color (Laney-wound Skin Appearance) No Abnormality -Temperature (Laney-wound Skin No Abnormality Appearance) (Pt Warm) -Tenderness on Palpation (Laney-wound No Skin Appearance) -Ulcer Cleansing Soap and Water -Foul Odor after Cleansing No -Anesthetic Used 4% Lidocaine Solution WC - Nurse 2 - General Ulcer CM Notes Start: 09/25/21 13:16 Freq: Status: Active Protocol: Activity Type Activity Date Activity User E-Sign Co-Sign Detail Recorded Client Recorded Date Recorded By Document 09/25/21 13:41 NIDHI [id number] 09/25/21 13:51 NIDHI 09/25/21 13:41 Wound Center Nurse 2 #2 L Ischial -Time 13:43 -Correct Patient Yes -Correct Side, Site, Position Yes -Correct Procedure Yes -Procedure Performed Yes -Type of Procedure Debridement -Clinical Debridement Subcutaneous -Tissue Removed Subcutaneous -Post Debridement (cm) - Length 3 -Post Debridement (cm) - Width 2.2 -Post Debridement (cm) - Depth 1.1 -Total Square (Post) (cm) 6.6 -Area of Debridement (cm) - Length 3 -Area of Debridement (cm) - Width 2.2 -Total Square (Area) (cm) 6.6 -Tunneling No -Undermining/Tunneling No -Circular Undermining No -Wound/Ulcer Outcome Not Healed -Ulcer Cleansing Rinsed/ Irrigated with Saline -Foul Odor after Cleansing No -Bioengineered Tissue No -Bleeding Controlled with Pressure -Offloading No -Treatment Response Procedure Tolerated Well -Debridement - Subq, 1st 20sq cm Yes #1 Sacral -Time 13:46 -Correct Patient Yes -Correct Side, Site, Position Yes -Correct Procedure Yes -Procedure Performed Yes -Type of Procedure Debridement -Clinical Debridement Muscle / Fascia -Tissue Removed Muscle,Fascia -Post Debridement (cm) - Length 7 -Post Debridement (cm) - Width 7.5 -Post Debridement (cm) - Depth 2 -Total Square (Post) (cm) 52.5 -Area of Debridement (cm) - Length 7 -Area of Debridement (cm) - Width 7.5 -Total Square (Area) (cm) 52.5 -Tunneling Yes -Tunneling Position (O'clock) 5 -Tunneling Distance (cm) 4.6 -Undermining/Tunneling No -Circular Undermining No -Wound/Ulcer Outcome Not Healed -Ulcer Cleansing Rinsed/ Irrigated with Saline -Foul Odor after Cleansing No -Bioengineered Tissue No -Bleeding Controlled with Pressure -Offloading No -Treatment Response Procedure Tolerated Well -Debridement - Muscle / Fascia, 1st Yes 20sq cm -Debridement, Muscle/Fascia, ea addt'l 2 20sq cm or part thereof Pain Scale: 0-10 Numeric Is Patient Pain Free? Yes Additional Wound Wound debrided: Ischial ulcer Laterality: Left Type of Debridement: Excisional debridement Anesthesia Used: 4% Lidocaine Solution and 5% Lidocaine Gel Depth: in the subcutaneous layer Percentage of wound debrided: 100 Instrument Used: 3mm curette Tissue Removed: Subcutaneous tissue and slough with some fat necrosis that was removed. Severity: Fat Layer Exposed Amount of bleeding with debridement: Mild Bleeding Controlled with: Pressure and Compression and gauze Patient tolerated procedure: Patient tolerated procedure well Assessment/Plan Assessment/Plan (1) Pressure ulcer of sacral region, stage 4: CODE(S): L89.154 - Pressure ulcer of sacral region, stage 4 (2) Decubitus ulcer of left ischium, stage 4: CODE(S): L89.324 - Pressure ulcer of left buttock, stage 4 (3) Osteomyelitis of pelvis: CODE(S): M86.9 - Osteomyelitis, unspecified (4) Paraplegia: CODE(S): G82.20 - Paraplegia, unspecified (5) Diffuse large B cell lymphoma: CODE(S): C83.30 - Diffuse large B-cell lymphoma, unspecified site QUALIFIERS: Lymphoma site: unspecified region Qualified Code(s): C83.30 - Diffuse large B-cell lymphoma, unspecified site (6) History of radiation therapy: CODE(S): Z92.3 - Personal history of irradiation (7) Paraplegia: CODE(S): G82.20 - Paraplegia, unspecified (8) Colostomy in place: CODE(S): Z93.3 - Colostomy status PLAN: Wound care - Wound VAC at 150 mmHg to be change 3 times per week of sacral ulcer. Her laney wound has improved. The left ischial ulcer will start wound VAC at 150 mmHg and bridge it to the sacral ulcer. Wound culture from 09/12/21 was positive for Staphylococcus haemolyticus and Enterococcus faecalis. Will start her on Augmentin and Doxycycline and a probiotic. Instructed them how to take her antibiotics and that the Doxycycline can not be taken at the same time as calcium, iron or a multivitamin. Encourage increased protein intake to help with wound healing. Follow up 2 weeks. Call or come in sooner if have any questions or concerns.
== END 2021-10-20 23:59 ==
LOC: WC 13:30
PROVIDERS: PCP Family Medicine; Visit Provider Nurse Practitioner Family
DX: L89.154 Pressure ulcer of sacral region, stage 4 (principal); C83.30 Diffuse large B-cell lymphoma, unspecified site; Z93.3 Colostomy status; L89.324 Pressure ulcer of left buttock, stage 4; G82.20 Paraplegia, unspecified; Z92.3 Personal history of irradiation
CPT/HCPCS: 11042; 11043; 11046

== ENCOUNTER 2021-10-07 09:59 | Inpatient (IN) | payer OTHER, SELFPAY ==
[2021-10-07 09:59] VITALS: BP 128/60; PULSE 75; RESP 16; TEMP 36.3; O2SAT 96; BMI 25.6
--- NOTE | 2021-10-07 10:17 | EKG12_ITS ---
Test Reason : CONFUSION Blood Pressure : / mmHG Vent. Rate : 068 BPM Atrial Rate : 068 BPM P-R Int : 152 ms QRS Dur : 084 ms QT Int : 460 ms P-R-T Axes : 035 -11 035 degrees QTc Int : 489 ms Normal sinus rhythm Inferior infarct , age undetermined Abnormal ECG Confirmed by RENALDO JOHNS, VLADIMIR ([id number]), fashion editor VANESSA PERES ([id number]) on 10/09/2021 11:32:11 AM Referred By: Confirmed By:VLADIMIR MACARIO MD
--- NOTE | 2021-10-07 10:17 | CT_ITS ---
STUDY: CTA HEAD AND NECK WITH CONTRAST, noncontrast CT brain REASON FOR EXAM: Female, 76 years old. confusion RADIATION DOSAGE (If Supplied By Facility): CTDIvol = ( 29.36 ) mGy, DLP = ( 1523.88 ) mGycm TECHNIQUE: CT angiography was performed with a multi-detector CT scanner. Data acquisition was obtained from the skull base through the vertex following intravenous administration of IV 100mL Isovue-370. MIP images were reconstructed from the axial data set. Post-processing of the angiographic images was performed, with multiplanar reformation and 3D reconstruction. Individualized dose optimization techniques were used for this CT. COMPARISON: No relevant priors. FINDINGS: Brain volume loss is consistent with patient age. There are periventricular white matter lucencies consistent with that of underlying small vessel disease. There is no evidence of intracranial hemorrhage, mass, mass effect or shift of midline structures. Ventricular size and configuration is normal for brain volume. No extra-axial collections. Small mucous retention cyst and mucoperiosteal thickening is noted in the posterior inferior right maxillary sinus. The mastoid air cells are clear. Normal bilateral petrous carotid arteries. Bilateral cavernous carotid artery calcifications are present. No evidence of significant stenosis. Normal right A1 segments of the anterior cerebral artery. Normal left A1 segments of the anterior cerebral artery. Normal intact anterior communicating artery (ACOM). Normal bilateral A2 segments of the anterior cerebral arteries. Normal right M1 and M2 segments of the middle cerebral arteries, with a normal M1 bifurcation. Normal left M1 and M2 segments of the middle cerebral arteries, with a normal M1 bifurcation. Normal right posterior communicating artery (PCOM). Normal left posterior communicating artery (PCOM). Normal bilateral vertebral arteries. The left vertebral artery is dominant. Normal basilar artery with a normal basilar bifurcation. The visualized bilateral superior cerebellar (SCA) arteries are normal. Normal bilateral P1, P2 and visualized P3 segments of the posterior cerebral arteries. There is no demonstrated aneurysm of the [place] of [place]. There is no abnormal enhancement of the brain AORTIC ARCH: Normal visualized aortic arch. Mild atherosclerosis. Normal origins of the brachiocephalic, left common carotid, and left subclavian arteries. RIGHT CAROTID ARTERIES: Normal right common carotid artery (CCA). Normal right common carotid bulb. There is mild atherosclerotic plaque formation of the origin of the right internal carotid artery with less than 50% cross sectional diameter stenosis. There is atherosclerotic tortuous elongation of the cervical portion of the right internal carotid artery. Normal origin of the right external carotid artery (ECA). LEFT CAROTID ARTERIES: Normal left common carotid artery (CCA). There is mild atherosclerotic plaque formation with minimal narrowing of the left carotid bulb. There is mild atherosclerotic plaque formation of the origin of the left internal carotid artery with less than 50% cross sectional diameter stenosis. Normal visualized cervical portion of the left internal carotid artery. Normal origin of the left external carotid artery (ECA). VERTEBRAL ARTERIES: Normal bilateral vertebral arteries. Dominant left vertebral artery. OTHER: Heterogeneous multinodular thyroid gland noted. There is peripheral pulmonary groundglass opacities of the lung apices posteriorly. While this may be positional, cannot exclude pneumonia or sequela of pneumonia such as a viral pneumonitis. Sternal wire sutures are present. CT/CTA Head AND Neck W/ Contrast IMPRESSION: Atherosclerosis without evidence of significant stenosis. Changes of small vessel disease. No evidence of mass. Pending Final Proof Editing
--- NOTE | 2021-10-07 10:19 | EDS_ITS ---
HPI History of Present Illness Chief Complaint: Confusion Informant: patient and spouse/S.O. Narrative Narrative: 76-year-old female presented to the emergency room for the evaluation of confusion. 6 days ago on Saturday the patient was confused per the . He notes that home health had come out and noticed that she did not seem her normal self. He states it got better through the week. She had blood drawn yesterday but do not know the results of it or what they heriberto. Last night she had an episode of hypotension with a systolic reading of 88. EMS was called and her blood pressure was normal for them. Patient states that she feels fatigued and mildly confused. states that her confusion is better than what it was on Saturday. He states that they were sent him to have an evaluation for potential TIA. No call in on record. 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 This resulted in decubitus ulcer formation which she currently has a wound VAC and is being seen at the wound care clinic. She is currently on Augmentin and doxycycline. She underwent colostomy for wound care and has a chronic indwelling Gutierrez catheter. Patient currently denies any fevers chills URI symptoms change in urine or stool consistency. notes that there is been no significant changes in the wounds. She is on Eliquis for atrial fibrillation [facility] Medical History Afib Atrial fibrillation with rapid ventricular response Chronic indwelling Gutierrez catheter Colostomy in place Coronary artery disease Decubitus ulcer Diffuse large B-cell lymphoma Hypertension Large cell lymphoma Myocardial infarct Paraplegia Pressure sore Home Medications melatonin 3 mg capsule 3 mg PO HS 05/08/21 [History Last Taken Unknown] multivitamin 1 tab PO DAILY 05/14/21 [History Last Taken Unknown] Eliquis 5 mg PO BID 30 Days #60 tab 07/20/21 [Rx Last Taken Unknown] acetaminophen 1,000 mg PO Q6H PRN PRN #0 tab 07/20/21 [Rx Last Taken Unknown] amiodarone 400 mg PO DAILY@0800 30 Days #30 tab 07/20/21 [Rx Last Taken Unknown] atorvastatin 40 mg PO DAILY 30 Days #30 tab 07/20/21 [Rx Last Taken Unknown] hydralazine 10 mg PO TID 30 Days #90 tab 07/20/21 [Rx Last Taken Unknown] losartan 100 mg PO DAILY 30 Days #30 tab 07/20/21 [Rx Last Taken Unknown] metoprolol succinate 50 mg PO Q6H 30 Days #120 tab 07/20/21 [Rx Last Taken Unknown] potassium chloride [Klor-Con M20] 20 meq PO DAILYCM 30 Days #30 tab 07/20/21 [Rx Last Taken Unknown] citalopram 10 mg PO DAILY 30 Days #30 tab 07/24/21 [Rx Last Taken Unknown] fluconazole [Diflucan] 150 mg PO DAILY 7 Days #7 tab 08/21/21 [Rx Last Taken Un known] baclofen mg PO TID 08/28/21 [History Last Taken Unknown] tramadol mg PO TID 08/28/21 [History Last Taken Unknown] amoxicillin-pot clavulanate [Augmentin] 1 tab PO Q12H 14 Days #28 tab 09/25/21 [Rx Last Taken Unknown] doxycycline monohydrate 100 mg PO BID 14 Days #28 tab 09/25/21 [Rx Last Taken Unknown] Allergy/AdvReac Type Severity Reaction Status Date / Time No Known Allergies Allergy Verified 10/07/21 10:13 Family History (Reviewed 08/11/21 @ 16:24 by Barbra Esparza MEDICAL OFFICE RECEPTIONIST, MEDICAL OFFICE RECEPTIONIST-C) Father CHF (congestive heart failure) Mother CAD (coronary artery disease) Alzheimer disease Surgical History Hx of CABG S/P cholecystectomy Social History household members: family housing: house number of children: 5 Smoking Status: Never smoker alcohol intake: never substance use type: does not use chris/nondenominational: Darion ROS ROS ED ROS Narrative Confusion and fatigue Constitutional Constitutional ED: Denies chills, fever(s) or weight loss Eyes Eyes: Denies change in vision or diplopia ENT ENT ED: Denies ear pain, rhinorrhea or sore throat Cardiovascular Cardiovascular: Denies chest pain, orthopnea, palpitations or racing heartbeat Respiratory/Chest Respiratory/Chest: Denies cough, dyspnea or orthopnea Gastrointestinal Gastrointestinal: Denies abdominal pain, diarrhea, nausea or vomiting Genitourinary Genitourinary ED: Denies dysuria, hematuria or urinary frequency Musculoskeletal Musculoskeletal: Denies arthralgias or myalgias Integumentary Denies abscess or rash Neurologic Neurologic: Denies headache(s) or weakness Psychiatric Psychiatric: Denies anxiety, depression, suicidal ideation or suicidal thoughts Endocrine Endocrinology: Denies polydipsia, polyphagia or polyuria Allergic/Immunologic Allergic/Immunologic ED: Denies mouth swelling, tongue swelling or urticaria EXAM Physical Exam Narrative Exam Narrative: 76-year-old female sitting in wheelchair. Wound VAC in place. Const Vital Signs: 10/07/21 09:59 Temperature 97.3 F L Temperature Source Temporal Pulse Rate 75 Respiratory Rate 16 Blood Pressure 128/60 H Blood Pressure Mean 82 Pulse Ox 96 Oxygen Delivery Method Room Air Positive well nourished and well developed General Appearance ED: well developed HEENT Reports normocephalic, head/scalp atraumatic, TM's clear and moist mucous membranes Negative for trauma Tympanic Membrane ED: Yes TM's clear Eyes PERRL and EOMs intact bilaterally Neck no lymphadenopathy, supple and no JVD Resp normal respiratory effort and clear to auscultation bilaterally Cardio regular rate, regular rhythm and no murmurs GI normal to inspection, nondistended, normoactive bowel sounds and non-tender Palpation: soft Back/Spine normal ROM Extremity normal to inspection General Extremety ED: Negative for edema General Extremity: Negative for edema Neuro oriented x3 and CN's II-XII intact bilaterally Neuro Narrative: Chronic lower extremity changes consistent with paraplegia Sensorium / Orientation: alert Psych mental status grossly normal Mood & Affect: Negative for depressed or tearful Skin Skin Narrative: Wound VAC in place over the sacral ulcers. MDM MDM MDM Narrative Medical decision making narrative: My interpretation of the chest x-ray is no acute process. White blood cell count is significantly elevated at 22.3 which is a substantial change from her normal leukopenic state. Lactic acid is normal. Creatinine 0.41. Urinalysis does not show overt infection. Blood and urine cultures were sent. CT and CTA of the head was obtained which does not demonstrate anything acute. It would seem that the patient's confusion is probably more related to a metabolic process such as infection. she does not currently have a fever or meets sepsis criteria. Lab Data Attestation: I reviewed the patient's lab results. Labs: Laboratory Results - last 24 hr 10/07/21 10/07/21 10/07/21 11:00 11:00 11:00 WBC 22.3 H RBC 3.83 L Hgb 10.4 L Hct 34.5 L MCV 90.1 MCH 27.2 MCHC 30.1 L RDW Std Deviation 57.3 H RDW Coeff of [place] 17.4 H Plt Count 387 MPV 9.2 Immature Gran % (Auto) 0.800 Neut % (Auto) 77.0 H Lymph % (Auto) 9.6 L [place] % (Auto) 5.7 Eos % (Auto) 6.7 H Baso % (Auto) 0.2 Absolute Neuts (auto) 17.2 H Absolute Lymphs (auto) 2.14 Nucleated RBC % 0 Sodium 139 Potassium 3.5 Chloride 105 Carbon Dioxide 29.0 Anion Gap 5 BUN 11 Creatinine 0.41 L Estim Creat Clear Calc 42.39 Est GFR (MDRD) Af Amer 193 Est GFR (MDRD) Non-Af 160 BUN/Creatinine Ratio 26.8 H Glucose 108 H Lactic Acid 1.0 Calcium 9.3 Total Bilirubin 0.40 AST 46 H ALT 49 Alkaline Phosphatase 84 Total Protein 6.4 Albumin 1.9 L Globulin 4.5 H Albumin/Globulin Ratio 0.4 L Urine Color Urine Clarity Urine pH Ur Specific [place] Urine Protein Urine Glucose (UA) Urine Ketones Urine Occult Blood Urine Nitrite Urine Bilirubin Urine Urobilinogen Ur Leukocyte Esterase Urine RBC Urine WBC Ur Squamous Epith Cells Urine Bacteria Urine Mucus Urine Yeast 10/07/21 11:25 WBC RBC Hgb Hct MCV MCH MCHC RDW Std Deviation RDW Coeff of [place] Plt Count MPV Immature Gran % (Auto) Neut % (Auto) Lymph % (Auto) [place] % (Auto) Eos % (Auto) Baso % (Auto) Absolute Neuts (auto) Absolute Lymphs (auto) Nucleated RBC % Sodium Potassium Chloride Carbon Dioxide Anion Gap BUN Creatinine Estim Creat Clear Calc Est GFR (MDRD) Af Amer Est GFR (MDRD) Non-Af BUN/Creatinine Ratio Glucose Lactic Acid Calcium Total Bilirubin AST ALT Alkaline Phosphatase Total Protein Albumin Globulin Albumin/Globulin Ratio Urine Color Yellow Urine Clarity Clear Urine pH 6.0 Ur Specific [place] 1.015 Urine Protein 15 H Urine Glucose (UA) Normal Urine Ketones Negative Urine Occult Blood 10 H Urine Nitrite Negative Urine Bilirubin Negative Urine Urobilinogen Normal Ur Leukocyte Esterase 500 H Urine RBC 0 SEEN Urine WBC 5-10 SEEN Ur Squamous Epith Cells 0 SEEN Urine Bacteria 0 SEEN Urine Mucus 0 SEEN Urine Yeast 1+ Radiography Diagnostic Testing: Clinical Impression(s) from Imaging Studies Head/Neck CTA 10/07/21 10:17 IMPRESSION: Atherosclerosis without evidence of significant stenosis. Changes of small vessel disease. No evidence of mass. Pending Final Proof Editing Chest X-Ray 10/07/21 11:25 IMPRESSION: Chronic lung disease which is most evident in the upper lung gage. No acute superimposed abnormality. Electronically Signed: Maggie Hobbs MD at 11:56 EST , Service support , EKG Initial EKG: Attestation: I personally reviewed and interpreted this EKG as follows: Comments: Normal sinus rhythm with a ventricular rate of 68 bpm Discharge Plan Dx/Rx/DC Orders Clinical Impression: Paraplegia, Pressure ulcer of sacral region, stage 4, Decubitus ulcer of left ischium, stage 4, Encephalopathy acute Disposition Disposition: Acute Care [facility]
--- NOTE | 2021-10-07 10:36 | ED.RN ---
2 assist mckenna lift to bed.
--- NOTE | 2021-10-07 10:37 | ED.RN ---
cyr clamped for urine sample
[2021-10-07 11:20] LABS: Absolute Lymphocyte Count 2.14 X10^3/uL (0.83-4.51); Absolute Neutrophil Count 17.2 X10^3/uL (2.0-7.7); Basophil# 0.04 X10^3/uL; Basophil% 0.2 % (0-1); Eosinophil# 1.49 X10^3/uL; Eosinophils% 6.7 % (0-5); Hematocrit 34.5 % (37-47); Hemoglobin 10.4 g/dL (12.0-15.0); Lymphocyte # 2.14 X10^3/ul (0.83-4.51); Lymphocyte % 9.6 % (19-41); Mean Corp Hgb Conc 30.1 g/dL (32-36); Mean Corpuscular Hgb 27.2 pg (27.0-32.0); Mean Corpuscular Volume 90.1 fL (81-99); Mean Platelet Vol. 9.2 fl (6.2-12.0); Monocyte# 1.26 X10^3/uL; Monocyte% 5.7 % (0-10); NRBC Flagged by Analyzer 0 % (0-5); Neutrophil # 17.19 X10^3/uL (2.7-7.7); POSITIVE MORPHOLOGY YES; Platelet Count 387 K/mm3 (150-450); RBC Distribution Width CV 17.4 % (11.6-14.6); RBC Distribution Width SD 57.3 fl (35.1-43.9); Red Blood Count 3.83 M/mm3 (4.2-5.4); White Blood Count 22.3 K/mm3 (4.4-11.0)
[2021-10-07 11:24] LABS: Differential Indicated SCAN CRITERIA MET
--- NOTE | 2021-10-07 11:25 | RAD_ITS ---
STUDY: X-RAY CHEST REASON FOR EXAM: Female, 76 years old. Confusion Additional history, history of lymphoma TECHNIQUE: Single AP portable view of the chest. COMPARISON: 07/12/2021 FINDINGS: Previously present right PICC line has been removed. At the remains interstitial prominence associated with the upper lobes bilaterally which I suspect is chronic. It was present previously There is no demonstrated pleural abnormality. There is evidence of prior cardiothoracic surgery with sternal sutures. Normal mediastinum and leoncio. Normal visualized pulmonary arteries. There is atherosclerotic tortuosity of the aortic arch and descending thoracic aorta. There are diffuse degenerative changes of the visualized thoracic spine. Normal visualized ribs, clavicles, and shoulders. There is no demonstrated abnormality of the visualized soft tissue structures of the upper abdomen. RAD/Chest 1 View (Portable) IMPRESSION: Chronic lung disease which is most evident in the upper lung gage. No acute superimposed abnormality. Electronically Signed: Maggie Hobbs MD at 11:56 EST , Service support ,
[2021-10-07 11:33] LABS: ALB/GLOB Ratio 0.4 RATIO (0.9-2.4); AST(SGOT) 46 U/L (15-37); Alanine Aminotransfer ALT/SGPT 49 U/L (13-56); Albumin, Serum 1.9 g/dL (3.2-5.0); Alkaline Phosphatase 84 U/L (45-117); Anion Gap 5 (5-15); BUN 11 mg/dL (7-18); BUN/Creat Ratio 26.8 RATIO (10-20); Calcium,Total 9.3 mg/dL (8.5-10.1); Chloride 105 mmol/L (98-107); Creatinine, Serum 0.41 mg/dL (0.55-1.02); EST Glomerular Filtration Rate 160 mL/min (>60); Est Glom Filt Rate - Afr Amer 193 mL/min (>60); Estimated Creatinine Clearance 42.39 ml/min; Globulin 4.5 g/dL (2.2-4.2); Glucose 108 mg/dL (74-106); Potassium 3.5 mmol/L (3.5-5.1); Protein, Total 6.4 g/dL (6.4-8.2); Sodium Level 139 mmol/L (136-145)
[2021-10-07 11:34] LABS: Bacteria 0 SEEN /hpf (None Seen); Color, Urine Yellow (Yellow); Glucose, Dipstick Normal (Normal); Ketone-Dipstick Negative (Negative); Leukocyte Esterase-Dipstick 500 /ul (Negative); Mucous, Urine 0 SEEN /hpf (<or=2+); Nitrite-Dipstick Negative (Negative); Occult Blood-Urine 10 /ul (Negative); Protein-Dipstick 15 mg/dl (Negative); Red Blood Cells-Urine 0 SEEN /hpf (0-5); Specific Gravity, Urine 1.015 (1.002-1.030); Squamous Epithelial Cells - UA 0 SEEN /hpf (5-10); Urine Bilirubin Dipstick Negative (Negative); Urine Clarity Clear (Clear); Urine Urobilinogen Normal (Normal)
[2021-10-07 11:44] LABS: White Blood Cells 5-10 SEEN /hpf (0-5); Yeast-Urine 1+ /hpf (None Seen)
--- NOTE | 2021-10-07 11:44 | ED.RN ---
pt daughter on phone, at bedside frustrated. They verbalized they were told to come to the ER for MRI. explained plan of care and testing doing today.
[2021-10-07 12:00] VITALS: BP 127/80; PULSE 79; RESP 14; O2SAT 98
--- NOTE | 2021-10-07 12:45 | PCM.HP.STD ---
HPI - General General Date of Admission: 10/07/21 HPI Narrative CHRISTOPHER CORONEL, is a 76 F with an extensive PMH as outlined who presents via the ED on 10/07/2021 with a complaint of confusion. She has a history of diffuse B cell lymphoma with resultant paraplegia due to a the mass being wrapped around her thoracic spinal cord. She had radiation for this and ended up having a decubitus ulcer; she has a wound vac in place and is on augmentin and doxycycline and follows up at the wound clinic. She had no fever or chills, nausea or vomiting. Review of systems was otherwise negative. Vitals are Bp of 128/60, KS of 75, RR of 16 and temp of 97.3F. CBC showed wbc of 22.3, Hb of 10.4 nad platelets of 387. Chemistry was essentially unremarkable and CT of the brain showed small vessel disease but on evidence of a stroke or any significant stenosis. CXR showed chronic lung disease most evident in the upper lung gage. No acute superimposed abnormality. She is being admitted to be managed for acute metabolic encephalopathy due to probable infection. Source of infection is not clear. Urinalysis showed no evidence of UTI.. [facility] Medical History Afib Atrial fibrillation with rapid ventricular response Chronic indwelling Gutierrez catheter Colostomy in place Coronary artery disease Decubitus ulcer Diffuse large B-cell lymphoma Hypertension Large cell lymphoma Myocardial infarct Paraplegia Pressure sore Home Medications multivitamin 1 tab PO DAILY 05/14/21 [History Last Taken 10/06/21] Eliquis 5 mg PO BID 30 Days #60 tab 07/20/21 [Rx Last Taken 10/06/21] acetaminophen 1,000 mg PO Q6H PRN PRN #0 tab 07/20/21 [Rx Last Taken Unknown] atorvastatin 40 mg PO DAILY 30 Days #30 tab 07/20/21 [Rx Last Taken 10/06/21] metoprolol succinate 50 mg PO Q6H 30 Days #120 tab 07/20/21 [Rx Last Taken 10/07/21 0800] baclofen 10 mg PO TID 08/28/21 [History Last Taken 10/07/21 0800] amiodarone 400 mg PO DAILY@0800 10/07/21 [History Last Taken 10/06/21] amoxicillin-pot clavulanate [Augmentin] 1 tab PO Q12H 10/07/21 [History Last Taken 10/06/21] doxycycline monohydrate 100 mg PO BID 10/07/21 [History Last Taken 10/06/21] gabapentin 100 mg PO DAILY 10/07/21 [History Last Taken 10/06/21] losartan 100 mg PO DAILY 10/07/21 [History Last Taken 10/06/21] metoclopramide HCl 10 mg PO TID 10/07/21 [History Last Taken Unknown] Allergy/AdvReac Type Severity Reaction Status Date / Time No Known Allergies Allergy Verified 10/07/21 10:13 Family History (Reviewed 08/11/21 @ 16:24 by Barbra Esparza PIN BALL MACHINE MECHANIC, PIN BALL MACHINE MECHANIC-C) Father CHF (congestive heart failure) Mother CAD (coronary artery disease) Alzheimer disease Surgical History (Updated 10/07/21 @ 14:14 by Shirley Tristan) History of cholecystectomy Hx of CABG S/P cholecystectomy Social History household members: family housing: house number of children: 5 Smoking Status: Never smoker alcohol intake: never substance use type: does not use chris/congregational: Darion ROS Constitutional Constitutional: Reports fever(s); Denies anorexia, change in weight, chills, malaise or weakness Eyes Eyes: Denies change in vision ENT HEENT: Denies dysphagia Cardiovascular Cardiovascular: Denies chest pain, dyspnea on exertion, edema, lightheadedness, orthopnea, palpitations, paroxysmal nocturnal dyspnea or rapid heart rate Respiratory/Chest Respiratory/Chest: Denies cough, dyspnea, productive cough, shortness of breath at rest, shortness of breath with exertion or wheezing Gastrointestinal Gastrointestinal: Denies abdominal pain, constipation, diarrhea, dyspepsia, nausea or vomiting Genitourinary Genitourinary: Denies burning urination, difficulty urinating or dysuria Musculoskeletal Musculoskeletal: Denies arthralgias Neurologic Neurologic: Denies confusion, dizziness, focal weakness or headache(s) Psychiatric Psychiatric: Denies anxiety Hematologic/Lymphatic Hematologic/Lymphatic: Denies anemia Vital Signs Vital Signs Vital Signs: 10/07/21 09:59 Temperature 97.3 F L Temperature Source Temporal Pulse Rate 75 Respiratory Rate 16 Blood Pressure 128/60 H Blood Pressure Mean 82 Pulse Ox 96 Oxygen Delivery Method Room Air Weight Weight: 154 lb Body Mass Index (BMI) 25.6 Physical Exam Const alert and oriented x3 General Appearance: cooperative HEENT normocephalic, head/scalp atraumatic, hearing grossly normal bilaterally and moist oral mucous membranes Eyes PERRL, EOMs intact bilaterally and conjunctivae normal Neck no lymphadenopathy Resp normal respiratory effort, no retractions, no use of accessory muscles and clear to auscultation bilaterally Cardio regular rate, regular rhythm, S1 normal heart sound, S2 normal heart sound and no murmurs GI normal to inspection, nondistended, normoactive bowel sounds, soft to palpation, non-tender and non-distended GI Narrative: colostomy bag in place Extremity normal to inspection and no clubbing, cyanosis or edema Skin Skin Narrative: stage IV decubitus ulcer over the sacrum. wound vac in place. Neuro oriented x3 and CN's II-XII intact bilaterally Neuro Narrative: paraplegia of LEs Sensorium / Orientation: awake and alert Psych affect normal Results Lab / Micro Data Result Diagrams: 10/07/21 11:00 10/07/21 11:00 Labs: Laboratory Results - last 24 hr 10/07/21 11:00: WBC 22.3 H, RBC 3.83 L, Hgb 10.4 L, Hct 34.5 L, MCV 90.1, MCH 27.2, MCHC 30.1 L, RDW Std Deviation 57.3 H, RDW Coeff of Ivory 17.4 H, Plt Count 387, MPV 9.2, Immature Gran % (Auto) 0.800, Neut % (Auto) 77.0 H, Lymph % (Auto) 9.6 L, [place] % (Auto) 5.7, Eos % (Auto) 6.7 H, Baso % (Auto) 0.2, Absolute Neuts (auto) 17.2 H, Absolute Lymphs (auto) 2.14, Nucleated RBC % 0 10/07/21 11:00: Sodium 139, Potassium 3.5, Chloride 105, Carbon Dioxide 29.0, Anion Gap 5, BUN 11, Creatinine 0.41 L, Estim Creat Clear Calc 42.39, Est GFR (MDRD) Af Amer 193, Est GFR (MDRD) Non-Af 160, BUN/Creatinine Ratio 26.8 H, Glucose 108 H, Calcium 9.3, Total Bilirubin 0.40, AST 46 H, ALT 49, Alkaline Phosphatase 84, Total Protein 6.4, Albumin 1.9 L, Globulin 4.5 H, Albumin/Globulin Ratio 0.4 L 10/07/21 11:00: Lactic Acid 1.0 10/07/21 11:25: Urine Color Yellow, Urine Clarity Clear, Urine pH 6.0, Ur Specific [place] 1.015, Urine Protein 15 H, Urine Glucose (UA) Normal, Urine Ketones Negative, Urine Occult Blood 10 H, Urine Nitrite Negative, Urine Bilirubin Negative, Urine Urobilinogen Normal, Ur Leukocyte Esterase 500 H, Urine RBC 0 SEEN, Urine WBC 5-10 SEEN, Ur Squamous Epith Cells 0 SEEN, Urine Bacteria 0 SEEN, Urine Mucus 0 SEEN, Urine Yeast 1+ Radiology Impression Head/Neck CTA 10/07/21 10:17 IMPRESSION: Atherosclerosis without evidence of significant stenosis. Changes of small vessel disease. No evidence of mass. Pending Final Proof Editing Chest X-Ray 10/07/21 11:25 IMPRESSION: Chronic lung disease which is most evident in the upper lung gage. No acute superimposed abnormality. Electronically Signed: Maggie Hobbs MD at 11:56 EST , Service support , Assessment & Plan Assessment/Plan (1) Encephalopathy acute: (2) Decubitus ulcer of left ischium, stage 4: PLAN: #Leucocytosis wbc is 22.3, absolute neutrophil count is elevated at 17 patient says she had an episode of confusion a few days ago, but she is completely lucid now. there is no clear evidence infection to cause the leucocytosis; her wbc is elevated and she has now developed a low grade fever of 99.5F. Only possible source may be her decubitus ulcer, as urinalysis is negative and CXR shows no evidence of pneumonia. in light of her immunosuppression with lymphoma, will treat keshawn occult infection start on broad spectrum IV vancomycin and zosyn. get blood cultures hydrate gently with IVF #Decubitus ulcer of the sacrum with history of osteomyelitis of the pelvis will consult wound care and get wound cultures has n vac in place stage IV; was present on admission # History of diffuse B cell lymphoma s/p surgery To follow-up with oncologist on outpatient basis #History of A. fib: On amiodarone and metoprolol as well as Eliquis #Hyperlipidemia: On statin #Hypertension: On losartan DVT prophylaxis: Not indicated as patient is on Eliquis Charges/Coding Visit Charges Inpatient E&M: 10728 Subs Hosp L3
[2021-10-07] MEDS: Piperacil/Tazobactam 3.375 GM/50 ML ML IV (13:12)
[2021-10-07 13:15] VITALS: BP 118/60; PULSE 73; RESP 16; TEMP 36.8; O2SAT 97
[2021-10-07 13:49] VITALS: BMI 22.1
[2021-10-07 13:50] VITALS: BP 115/53; PULSE 73; RESP 18; TEMP 37.5; O2SAT 97
--- NOTE | 2021-10-07 18:01 | PCM.RX.CS ---
Consult Pharmacy has been consulted to manage selected antiobiotic: Vancomycin Type of Consult: New start Suspected Infection: Skin/Soft tissue Prior Doses of Antibiotics Received/Current Regimen: Received 1750mg iv x 1 as initial dose. Labs: Sodium 139 mmol/L (136-145) 10/07/21 11:00 Potassium 3.5 mmol/L (3.5-5.1) 10/07/21 11:00 Chloride 105 mmol/L (98-107) 10/07/21 11:00 Carbon Dioxide 29.0 mmol/L (21.0-32.0) 10/07/21 11:00 Anion Gap 5 (5-15) 10/07/21 11:00 BUN 11 mg/dL (7-18) 10/07/21 11:00 Creatinine 0.41 mg/dL (0.55-1.02) L 10/07/21 11:00 Est GFR (MDRD) Af Amer 193 mL/min (>60) 10/07/21 11:00 Est GFR (MDRD) Non-Af 160 mL/min (>60) 10/07/21 11:00 BUN/Creatinine Ratio 26.8 RATIO (10-20) H 10/07/21 11:00 Glucose 108 mg/dL (74-106) H 10/07/21 11:00 Weight used for dosin.4 kg Estimated Creatinine Clearance: 42 ml/min Goal Trough: 15-20 mcg/mL Pharmacy Plan for Drug Dosing: Will start patient on 500mg iv q12h per protocol. Trough level has been ordered for 10.09.21 before 4th cumulative dose. Pharmacy Service will continue to monitor and adjust dosing as required. Follow-Up Labs: Trough Vancomycin - 10.09.21 @0130 before 0200 dose
--- NOTE | 2021-10-07 18:13 | PCS.PANDOC ---
PANDEMIC DOCUMENTATION INITIATED: Date: 06/05/2021 Time: 190
[2021-10-07] MEDS: 0.9% Normal Saline 1,000 ML 125 ML IV (18:51)
[2021-10-07 20:49] VITALS: BP 122/65; PULSE 78; RESP 16; TEMP 37.2; O2SAT 98
[2021-10-07] MEDS: APIXABAN 5 MG TABLET PO (22:38)
[2021-10-07] MEDS: Metoclopramide 10 MG Tablet PO (22:39)
[2021-10-07] MEDS: Atorvastatin Calcium 40 MG Tablet PO (22:39)
[2021-10-07] MEDS: Baclofen 10 MG Tablet PO (22:40)
--- NOTE | 2021-10-07 23:55 | NURSING ---
Given message per charge nurse that patient's daughter, Kamlesh, called to discuss concerns w/ pt's confusion. Phone call placed to number provided and received identifiable vm. Left vm to return call.
[2021-10-08] VITALS (7 sets, daily range): BP systolic 121–144; BP diastolic 61–78; PULSE 75–97; RESP 16–18; TEMP 36.6–37.4; O2SAT 94–96
--- NOTE | 2021-10-08 00:09 | NURSING ---
Return phone call received from daughter, Kamlesh, who verbalizes concerns w/ confusion. Reports she was on the phone w/ pt for approximately 30 minutes and heard this nurse attempting to give pt hs meds. Updated blood cultures pending and urine specimen has been obtained. On IV atb x2 currently. Notes family has witnessed pt stop breathing at times during the night. Expresses appreciation for update. Will contiune to monitor.
--- NOTE | 2021-10-08 00:20 | NURSING ---
Unable to administer most of dose of IV Zosyn d/t no IV access.
[2021-10-08] MEDS: Vancomycin IV 500 MG/100 ML BAG 100 MG IV ×2 (03:26→13:16)
[2021-10-08] MEDS: 0.9% Saline Lock 10 ML Syringe IV ×2 (03:27→05:58)
--- NOTE | 2021-10-08 03:47 | NURSING ---
This nurse unsuccessful x 2 attempts to restart IV. Second RN assisted this nurse w/ vein finder which was not successful. Charge nurse attempted x 1 without success. supervisor soakers also unsuccessful. An RN from another unit was able to obtain IV access to the left lateral forearm.
[2021-10-08] MEDS: Metoclopramide 10 MG Tablet PO ×3 (05:54→20:37)
[2021-10-08] MEDS: Baclofen 10 MG Tablet PO ×3 (05:54→20:37)
[2021-10-08] MEDS: Piperacil/Tazobactam 3.375 GM/50 ML ML IV ×3 (05:57→20:38)
[2021-10-08] MEDS: Acetaminophen 500 MG Tablet 1000 MG PO (06:43)
[2021-10-08 06:55] LABS: Absolute Lymphocyte Count 1.82 X10^3/uL (0.83-4.51); Absolute Neutrophil Count 18.6 X10^3/uL (2.0-7.7); Basophil# 0.04 X10^3/uL; Basophil% 0.2 % (0-1); Eosinophil# 0.07 X10^3/uL; Eosinophils% 0.3 % (0-5); Hematocrit 30.4 % (37-47); Hemoglobin 9.6 g/dL (12.0-15.0); Lymphocyte # 1.82 X10^3/ul (0.83-4.51); Lymphocyte % 8.4 % (19-41); Mean Corp Hgb Conc 31.6 g/dL (32-36); Mean Corpuscular Hgb 27.9 pg (27.0-32.0); Mean Corpuscular Volume 88.4 fL (81-99); Mean Platelet Vol. 9.4 fl (6.2-12.0); Monocyte# 1.04 X10^3/uL; Monocyte% 4.8 % (0-10); NRBC Flagged by Analyzer 0 % (0-5); Neutrophil # 18.59 X10^3/uL (2.7-7.7); Neutrophil % 85.7 % (47-70); POSITIVE MORPHOLOGY YES; Platelet Count 348 K/mm3 (150-450); RBC Distribution Width CV 17.2 % (11.6-14.6); RBC Distribution Width SD 55.7 fl (35.1-43.9); Red Blood Count 3.44 M/mm3 (4.2-5.4); White Blood Count 21.7 K/mm3 (4.4-11.0)
[2021-10-08 07:01] LABS: Differential Indicated SCAN CRITERIA MET
[2021-10-08 07:31] LABS: Anion Gap 9 (5-15); BUN 7 mg/dL (7-18); BUN/Creat Ratio 29.4 RATIO (10-20); Calcium,Total 8.6 mg/dL (8.5-10.1); Chloride 106 mmol/L (98-107); Creatinine, Serum 0.24 mg/dL (0.55-1.02); EST Glomerular Filtration Rate 300 mL/min (>60); Est Glom Filt Rate - Afr Amer 362 mL/min (>60); Estimated Creatinine Clearance 42.39 ml/min; Glucose 88 mg/dL (74-106); Potassium 3.5 mmol/L (3.5-5.1); Sodium Level 139 mmol/L (136-145)
[2021-10-08 07:39] LABS: Atypical Lymphocyte RARE %
[2021-10-08] MEDS: Multivitamins,Therapeutic Tablet 1 TABLET PO (08:07)
[2021-10-08] MEDS: Amiodarone 200 MG Tablet 400 MG PO (08:07)
[2021-10-08] MEDS: Gabapentin 100 MG Capsule PO (08:07)
[2021-10-08] MEDS: APIXABAN 5 MG TABLET PO ×2 (10:55→20:38)
[2021-10-08] MEDS: Losartan Potassium 100 MG Tablet PO (10:56)
--- NOTE | 2021-10-08 11:54 | PN.HOSP_ITS ---
Subjective Subjective Patient seen and examined. Patient appears to be more confused today and think she is in [facility]. He is able to tell me her name and her date of though. Review of systems is otherwise negative. She did have episodic fever overnight. WBC is slightly down to 21.7 today. Objective Data Objective Data Vital Signs: Vital Signs Temp Pulse Resp BP Pulse Ox 98.6 F 76 16 144/78 H 95 10/08/21 11:25 10/08/21 11:25 10/08/21 11:25 10/08/21 11:25 10/08/21 11:25 Oxygen Delivery Method Room Air Weight: 133 lb 3.993 oz Body Mass Index (BMI) 22.1 Intake & Output: Intake and Output for Last 24 Hours 10/06/21 10/07/21 10/08/21 23:59 23:59 23:59 Intake Total 825 / 825 500 / 500 Output Total 275 / 275 200 / 200 Balance 550 / 550 300 / 300 Medical Nutrition Assessment Dietitian: Malnutrition Criteria Met Start: 10/08/21 10:35 Freq: Status: Active Protocol: Document 10/08/21 10:35 AG (Rec: 10/08/21 10:35 [id number]) Nutrition Malnutrition Evidence of Malnutrition Exists Yes Malnutrition (severe): Chronic Evidenced By Suboptimal Energy Intake ( Severe),Weight Loss (Severe) Clinical Problem Chronic Disease or Condition Related Malnutrition Etiology severe, chronic malnutrition r /t inadequate energy intake w/ increased energy needs d/t lymphoma, wounds Signs/Symptoms as evidenced by unintentional wt loss of 45.2#/25% wt loss x 5 month, estimated PO intake meeting <75% of estimated nutritional needs >3 months Status Active Problem Recommendation Dietitian Recommendations/Changes liberalize diet to regular w/ 4oz ensure enlive w/ meals ( strawberry) d/t malnutrition Lab / Micro Data Result Diagrams: 10/08/21 05:41 10/08/21 05:41 Labs: Laboratory Results - last 24 hr 10/08/21 05:41: WBC 21.7 H, RBC 3.44 L, Hgb 9.6 L, Hct 30.4 L, MCV 88.4, MCH 27.9, MCHC 31.6 L, RDW Std Deviation 55.7 H, RDW Coeff of Ivory 17.2 H, Plt Count 348, MPV 9.4, Immature Gran % (Auto) 0.600, Neut % (Auto) 85.7 H, Lymph % (Auto) 8.4 L, Mccormick % (Auto) 4.8, Eos % (Auto) 0.3, Baso % (Auto) 0.2, Absolute Neuts ( auto) 18.6 H, Absolute Lymphs (auto) 1.82, Nucleated RBC % 0, Atypical Lymphocytes RARE 10/08/21 05:41: Sodium 139, Potassium 3.5, Chloride 106, Carbon Dioxide 24.0, Anion Gap 9, BUN 7, Creatinine 0.24 L, Estim Creat Clear Calc 42.39, Est GFR (MDRD) Af Amer 362, Est GFR (MDRD) Non-Af 300, BUN/Creatinine Ratio 29.4 H, G lucose 88, Calcium 8.6 Radiography Diagnostic Testing: Radiology Impression Head/Neck CTA 10/07/21 10:17 IMPRESSION: Atherosclerosis without evidence of significant stenosis. Changes of small vessel disease. No evidence of mass. Pending Final Proof Editing ADDENDUM: 10/07/21 1417 IMPRESSION: Chronic evolutional changes of the brain. No evidence of acute abnormality. No identified infarct or mass. Electronically Signed: Maggie Hobbs MD at 12:57 EST , Service support , Chest X-Ray 10/07/21 11:25 IMPRESSION: Chronic lung disease which is most evident in the upper lung gage. No acute superimposed abnormality. Electronically Signed: Maggie Hobbs MD at 11:56 EST , Service support , Physical Exam Const alert Constitutional Narrative: alert to person, but not to time or place. General Appearance: cooperative Orientation / Consciousness: confused and disoriented Exam Limitations: altered mental status HEENT normocephalic, head/scalp atraumatic, hearing grossly normal bilaterally and moist oral mucous membranes Eyes PERRL, EOMs intact bilaterally and conjunctivae normal Neck no lymphadenopathy Resp normal respiratory effort, no retractions, no use of accessory muscles and clear to auscultation bilaterally Cardio regular rate, regular rhythm, S1 normal heart sound, S2 normal heart sound and no murmurs GI normal to inspection, nondistended, normoactive bowel sounds, soft to palpation, non-tender and non-distended GI Narrative: colostomy bag in place Extremity normal to inspection and no clubbing, cyanosis or edema Skin Skin Narrative: stage IV decubitus ulcer over the sacrum. wound vac in place. Neuro CN's II-XII intact bilaterally Neuro Narrative: paraplegia of LEs, confused Psych Psych Narrative: flat affect Assessment & Plan Assessment/Plan (1) Encephalopathy acute: (2) Decubitus ulcer of left ischium, stage 4: PLAN: #Acute metabolic encephalopathy * etiology is not clear. Due to elevated wbc, there is concern for an occult infection * wbc is down to 21.7 today. * CTA of the head and neck were unremarkable. * on IV vancomycin and zosyn * in light of her history of B cell lymphoma, I do think it is prudent to get an MRI of the brain with contrast to evaluate for any evidence of metastatic spread to the brain. * blood and urine cultures pending * patient was also apparently recently started on gabapentin on outpatient basis; will hold due to acute metabolic encephalopathy. 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 Present on admission. * had a wound vac in place on admission. * # History of diffuse B cell lymphoma * s/p surgery * To follow-up with oncologist on outpatient basis * getting an MRI of the brain with contrast in setting of new onset acute metabolic encephalopathy * #History of A. fib: On amiodarone and metoprolol as well as Eliquis #Hyperlipidemia: On statin #Hypertension: On losartan DVT prophylaxis: Not indicated as patient is on Eliquis Charges/Coding Visit Charges Inpatient E&M: 86384 [facility] Hosp L3
--- NOTE | 2021-10-08 12:10 | MRI_ITS ---
STUDY: MRI BRAIN WITH AND WITHOUT CONTRAST REASON FOR EXAM: Female, 76 years old. acute metabolic encephalopathy -- has diffuse B cell lymphoma, concern for brain met TECHNIQUE: Standardized multiplanar fat and water weighted pulse sequences were obtained. IV 12cc dotarem was administered for the contrast portion of the examination. COMPARISON: CT of the head dated 10/07/2021 FINDINGS: Normal size of the ventricles and extra-axial spaces for the patient''s age. There are a limited number of small white matter hyperintensities, distributed throughout the deep white matter tracts of the cerebral hemispheres, consistent with mild chronic white matter ischemic changes. There is approximately 8 mm enhancement at the left IAC which appears to extend into the porous acoustic is. Normal bilateral basal ganglia. Normal thalami. There is no extra-axial fluid accumulation. Normal flow voids within the major intracranial circulation suggesting patency by spin echo criteria. Normal venous enhancement. There is no enhancing intra-axial or extra-axial abnormality. Normal sella turcica, pituitary gland, infundibular stalk, optic chiasm and hypothalamus. Normal tectal plate and pineal gland. Normal midbrain, prosper and medulla. Normal cerebellum. Normal basal cisterns. Normal bilateral temporal bones. Normal bilateral internal auditory canals. The calvarium is heterogeneous with approximately 2 cm enhancing lesion involving the right the right posterior calvarium (coronal image #25 series 12) which corresponds to lytic lesion on the prior CT dated 10/07/2021. MRI/Brain W/WO Contrast IMPRESSION: 8mm left IAC lesion. Differential considerations include (acoustic schwannoma), meningioma and metastatic disease. Comparison with prior examinations if available or dedicated MRI of the IAC can be obtained. Right skull lesion. Electronically Signed: Vira Moise MD at 12:49 EST Tel , Service support ,
[2021-10-08] MEDS: Metoprolol(XL)Succ 50 MG Tablet PO (20:37)
[2021-10-08] MEDS: Atorvastatin Calcium 40 MG Tablet PO (20:37)
[2021-10-09] VITALS (7 sets, daily range): BP systolic 101–144; BP diastolic 50–59; PULSE 71–90; RESP 16–18; TEMP 36.4–37; O2SAT 94–100
[2021-10-09] MEDS: Vancomycin IV 500 MG/100 ML BAG 100 MG IV (02:11)
[2021-10-09 02:18] LABS: Vancomycin, Trough Level 11.8 ug/mL (5.0-15.0)
--- NOTE | 2021-10-09 02:44 | PCM.RX.CS ---
Consult Pharmacy has been consulted to manage selected antiobiotic: Vancomycin Type of Consult: Follow-up Labs: Sodium 139 mmol/L (136-145) 10/08/21 05:41 Potassium 3.5 mmol/L (3.5-5.1) 10/08/21 05:41 Chloride 106 mmol/L (98-107) 10/08/21 05:41 Carbon Dioxide 24.0 mmol/L (21.0-32.0) 10/08/21 05:41 Anion Gap 9 (5-15) 10/08/21 05:41 BUN 7 mg/dL (7-18) 10/08/21 05:41 Creatinine 0.24 mg/dL (0.55-1.02) L 10/08/21 05:41 Est GFR (MDRD) Af Amer 362 mL/min (>60) 10/08/21 05:41 Est GFR (MDRD) Non-Af 300 mL/min (>60) 10/08/21 05:41 BUN/Creatinine Ratio 29.4 RATIO (10-20) H 10/08/21 05:41 Glucose 88 mg/dL (74-106) 10/08/21 05:41 Vancomycin Trough 11.8 ug/mL (5.0-15.0) 10/09/21 01:26 Microbiology: Microbiology 10/07/21 11:00 Blood Culture (Wb) - Anticubital Left Bacteria Detection (PCR) - Preliminary Staphylococcus epidermidis 10/07/21 11:00 Blood Culture (Wb) - Anticubital Left Blood Culture - Preliminary 10/07/21 18:50 Ulcer, Decubitus - Buttock Gram Stain - Final 10/07/21 18:50 Ulcer, Decubitus - Buttock Wound Culture - Preliminary Gram positive organism Goal Trough: 15-20 mcg/mL Pharmacy Plan for Drug Dosing: Pharmacy Service will continue to monitor and adjust dosing as required. TROUGH 11.8 AT 12 HRS. INCREASE TO 750MG Q12H AND FOLLOW UP TROUGH BEFORE 4TH DOSE Follow-Up Labs: Trough Vancomycin Labs to be done on [date and time ordered]: 10/11 @ 3044
[2021-10-09] MEDS: Baclofen 10 MG Tablet PO (06:29)
[2021-10-09] MEDS: Piperacil/Tazobactam 3.375 GM/50 ML ML IV ×3 (06:29→20:28)
[2021-10-09] MEDS: Metoclopramide 10 MG Tablet PO ×3 (06:29→23:05)
[2021-10-09 06:50] LABS: Absolute Lymphocyte Count 1.83 X10^3/uL (0.83-4.51); Absolute Neutrophil Count 15.7 X10^3/uL (2.0-7.7); Basophil# 0.02 X10^3/uL; Basophil% 0.1 % (0-1); Eosinophil# 0.09 X10^3/uL; Eosinophils% 0.5 % (0-5); Hematocrit 30.3 % (37-47); Hemoglobin 9.4 g/dL (12.0-15.0); Lymphocyte # 1.83 X10^3/ul (0.83-4.51); Lymphocyte % 9.8 % (19-41); Mean Corpuscular Hgb 27.6 pg (27.0-32.0); Mean Corpuscular Volume 89.1 fL (81-99); Mean Platelet Vol. 9.3 fl (6.2-12.0); Monocyte# 0.87 X10^3/uL; Monocyte% 4.7 % (0-10); NRBC Flagged by Analyzer 0 % (0-5); Neutrophil # 15.74 X10^3/uL (2.7-7.7); Neutrophil % 84.5 % (47-70); POSITIVE MORPHOLOGY YES; Platelet Count 323 K/mm3 (150-450); RBC Distribution Width CV 17.5 % (11.6-14.6); RBC Distribution Width SD 57.1 fl (35.1-43.9); White Blood Count 18.6 K/mm3 (4.4-11.0)
[2021-10-09 07:10] LABS: Anion Gap 5 (5-15); BUN 7 mg/dL (7-18); BUN/Creat Ratio 25.6 RATIO (10-20); Calcium,Total 8.8 mg/dL (8.5-10.1); Chloride 111 mmol/L (98-107); Creatinine, Serum 0.27 mg/dL (0.55-1.02); EST Glomerular Filtration Rate 256 mL/min (>60); Est Glom Filt Rate - Afr Amer 309 mL/min (>60); Estimated Creatinine Clearance 42.39 ml/min; Glucose 89 mg/dL (74-106); Potassium 3.6 mmol/L (3.5-5.1); Sodium Level 143 mmol/L (136-145)
[2021-10-09 07:18] LABS: Differential Indicated SCAN CRITERIA MET
[2021-10-09] MEDS: Multivitamins,Therapeutic Tablet 1 TABLET PO (07:46)
[2021-10-09] MEDS: Amiodarone 200 MG Tablet 400 MG PO (07:46)
[2021-10-09] MEDS: Gabapentin 100 MG Capsule PO (07:46)
--- NOTE | 2021-10-09 08:29 | WOUNDNOTE ---
wound photo: left ischium
--- NOTE | 2021-10-09 08:30 | WOUNDNOTE ---
wound photo: sacrum
--- NOTE | 2021-10-09 10:51 | CASEMGMT ---
PADMINI BLAKE Assessment: Face to Face with pt for initial transition planning/care coordination assessment. RN HAYDEN introduced self and role at [facility], pt voices understanding and consents to assessment. Pt is A/O x2, person and place. at bedside. Care providers, pharmacy, and demographics verified/updated. Admitting Dx: altered mental status PCP:Lawrence Fulton Specialists:Raheem, wound center; onc recently changed and pt and are unsure of who it is now. Preferred Pharmacy: [facility] in [place] Insurance: [employer] Prescription Benefit: yes, [employer] covers meds LW/HPOA: Pt has a LW on file at [facility]. Pt and think they have a DPOA but are not sure. They are aware it is not on file at [facility] and may bring in to be scanned into the chart. LNOK: Lc Mina, ; Kamlesh uMnoz, dtr Living Arrangements: Pt lives with in a single story house with a ramp to enter or one step. Pt is dependent for ADL and IADL's. Pt or daughters assist her with bathing, dressing, meals and housekeeping. Transportation: Pt hires transportation for medical appts. DME/HHC/SNF: Pt has a hospital bed, mckenna lift, electric w/c and manual w/c as well as a walk in shower in the home. Pt currently is active with [facility] receiving SN and therapy services per . Denies hx of SNF stays. Pt has a wound vac that nurse changes three times per week. Wound vac is provided by [facility]. Pt does see [facility] every other week. Pt also has chronic cyr and colostomy. [facility] orders supplies for these and pt/ are unsure of name of company. Pt states no concerns with going home at time of dc. Pt states no further concerns/needs. CM to follow. Advised pt to ask CM if any further question/concerns/needs arise, voices understanding. Pt Goal: Home with resumption of HHC Plan: Home with resumption of HHC
[2021-10-09] MEDS: APIXABAN 5 MG TABLET PO ×2 (11:16→23:05)
[2021-10-09] MEDS: Losartan Potassium 100 MG Tablet PO (11:16)
[2021-10-09] MEDS: Metoprolol(XL)Succ 50 MG Tablet PO ×2 (11:18→23:05)
--- NOTE | 2021-10-09 13:49 | CASEMGMT ---
Social Work Note Per telesales consultant questions, pt has completed HCPOA and LW and provided copy to [facility]. RN CM told pt and her that LW is on file at [facility] but not HCPOA. Sandra Persaud MANAGER [employer] CHAIN, PUZZLE ASSEMBLER
--- NOTE | 2021-10-09 15:21 | PN.HOSP_ITS ---
Subjective Subjective Back to baseline per her . Pt denies any new complaints. Objective Data Objective Data Vital Signs: Vital Signs Temp Pulse Resp BP Pulse Ox 37.0 C 71 16 101/53 L 95 10/09/21 13:34 10/09/21 13:34 10/09/21 13:34 10/09/21 13:34 10/09/21 13:34 Oxygen Delivery Method Room Air Weight: 60.441 kg Body Mass Index (BMI) 22.1 Intake & Output: Intake and Output for Last 24 Hours 10/07/21 10/08/21 10/09/21 23:59 23:59 23:59 Intake Total 825 / 825 1136 / 1136 465 / 465 Output Total 275 / 275 1700 / 1700 2100 / 2100 Balance 550 / 550 -564 / -564 -1635 / -1635 Medical Nutrition Assessment Dietitian: Malnutrition Criteria Met Start: 10/08/21 10:35 Freq: Status: Active Protocol: Document 10/08/21 10:35 (Rec: 10/08/21 10:35 [id number]) Nutrition Malnutrition Evidence of Malnutrition Exists Yes Malnutrition (severe): Chronic Evidenced By Suboptimal Energy Intake ( Severe),Weight Loss (Severe) Clinical Problem Chronic Disease or Condition Related Malnutrition Etiology severe, chronic malnutrition r /t inadequate energy intake w/ increased energy needs d/t lymphoma, wounds Signs/Symptoms as evidenced by unintentional wt loss of 45.2#/25% wt loss x 5 month, estimated PO intake meeting <75% of estimated nutritional needs >3 months Status Active Problem Recommendation Dietitian Recommendations/Changes liberalize diet to regular w/ 4oz ensure enlive w/ meals ( strawberry) d/t malnutrition Lab / Micro Data Result Diagrams: 10/09/21 06:18 10/09/21 06:18 Labs: Laboratory Results - last 24 hr 10/09/21 01:26: Vancomycin Trough 11.8 10/09/21 06:18: WBC 18.6 H, RBC 3.40 L, Hgb 9.4 L, Hct 30.3 L, MCV 89.1, MCH 27.6, MCHC 31.0 L, RDW Std Deviation 57.1 H, RDW Coeff of Ivory 17.5 H, Plt Count 323, MPV 9.3, Immature Gran % (Auto) 0.400, Neut % (Auto) 84.5 H, Lymph % (Auto) 9.8 L, Colleton % (Auto) 4.7, Eos % (Auto) 0.5, Baso % (Auto) 0.1, Absolute Neuts (auto) 15.7 H, Absolute Lymphs (auto) 1.83, Nucleated RBC % 0 10/09/21 06:18: Sodium 143, Potassium 3.6, Chloride 111 H, Carbon Dioxide 27.0, Anion Gap 5, BUN 7, Creatinine 0.27 L, Estim Creat Clear Calc 42.39, Est GFR (MDRD) Af Amer 309, Est GFR (MDRD) Non-Af 256, BUN/Creatinine Ratio 25.6 H, Glucose 89, Calcium 8.8 Micro: Microbiology 10/07/21 11:00 Blood Culture (Wb) - Anticubital Left Bacteria Detection (PCR) - Final Staphylococcus epidermidis 10/07/21 11:00 Blood Culture (Wb) - Anticubital Left Blood Culture - Preliminary Staphylococcus epidermidis 10/07/21 11:25 Urine, Catheterized Urine Culture - Preliminary Yeast Like Organism 10/07/21 11:00 Blood Culture (Wb) - Anticubital Left Blood Culture - Preliminary No growth in 48 hours. 10/07/21 18:50 Ulcer, Decubitus - Buttock Gram Stain - Final 10/07/21 18:50 Ulcer, Decubitus - Buttock Wound Culture - Preliminary Gram positive organism 10/07/21 18:50 Ulcer, Decubitus - Buttock Anaerobic Culture - Preliminary Radiography Diagnostic Testing: Radiology Impression Brain MRI 10/08/21 12:10 IMPRESSION: 8mm left IAC lesion. Differential considerations include (acoustic schwannoma), meningioma and metastatic disease. Comparison with prior examinations if available or dedicated MRI of the IAC can be obtained. Right skull lesion. Electronically Signed: Vira Moise MD at 12:49 EST Tel , Service support , Physical Exam Const alert Resp normal respiratory effort, no retractions, no use of accessory muscles and clear to auscultation bilaterally Cardio regular rate, regular rhythm, S1 normal heart sound and S2 normal heart sound GI normal to inspection, nondistended, normoactive bowel sounds, soft to palpation, non-tender and non-distended Extremity normal to inspection and full ROM Skin no rashes or lesions noted Neuro oriented x3 Sensorium / Orientation: awake, alert and oriented to person Assessment & Plan Assessment/Plan (1) Metabolic encephalopathy: (2) Decubitus ulcer, infected: QUALIFIERS: Pressure injury stage: stage 4 Qualified Code(s): L89.94 - Pressure ulcer of unspecified site, stage 4; L08.9 - Local infection of the skin and subcutaneous tissue, unspecified PLAN: 1. metabolic encephalopathy resolved MRI: 8mm left IAC lesion (acoustic schwannoma v meningioma and metastatic disease as possibilities. This may be incidental to her main complaint. PET scan from 09/12 did not show any acute issues on her brain. check EEG as lesion could be a focus for szrs consult SOC teleneurology after EEG completed. 2. Stage 4 decubitus ulcer wound growing out S epi. consult ID to see if long-term abx necessary. on pip/tazo and vanc, deescalate as further culture information presents. 3. Large B cell lymphoma Follow up with med and rad onc History: * 03/20/2021: MRI cervical/thoracic/lumbar spine was completed. This demonstrated a large homogeneously enhancing dural based mass involving the spinal canal spanning the T4-T7 levels with associated edema/enhancement involving the facets and spinous process of T6. There is marked ventral displacement and compression of the thoracic cord at the level of the mass most notable at the T5 and T6 levels with associated cord edema. There is evidence for multilevel degenerative changes throughout the cervical, thoracic, and lumbar spine. No other abnormalities are identified. * 03/20/2021: Patient underwent emergent excision of the thoracic spine dural mass which was compressing the spinal cord at the level of T4-T7 associated with epidural hematoma which was evacuated by neurosurgery. 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 CSF showed no evidence of lymphoma by flow cytometry. * 03/22/2021: CT abdomen/pelvis with contrast was performed which demonstrated no acute findings or evidence of malignancy in the abdomen/pelvis. * 03/22/2021: CT chest with IV contrast was performed. This demonstrated several ill-defined tiny pulmonary nodules present which could be inflammatory, recommend follow-up. Postoperative changes from the recent spine surgery in the upper to mid thoracic spine region are identified. Hypodense thyroid lesions are seen, largest measuring up to 15 mm in the left lobe. There are small nonenlarged mediastinal and hilar nodes that are likely reactive. No other abnormalities are present. * 03/23/2021: Thyroid ultrasound was performed. TI-RADS category TR two, no follow-up or FNA is advised. * 03/27/2021: PET scan was performed. There is a 3.2 x 2.5 cm indeterminant FDG avid lesion within the second/third portion of the duodenum, recommend correlation with ultrasound. SUV of this lesion is 13.3 and corresponds to a possible intraluminal lesion. There are no other FDG avid lesions noted throughout the exam. * 03/30/2021: EGD was performed. This demonstrated a normal-appearing duodenum and no biopsies were taken. * 03/29/2021: Patient was diagnosed with diffuse large B-cell lymphoma stage IE initiated R-CHOP with Dr. Arteaga in medical oncology at [facility] * 04/06/2021: Patient was admitted with palpitations, tachycardia, and neutropenic fever. Patient was found to be in A. fib with RVR and diagnosed with C. difficile infection and discharged with vancomycin. * 04/06/2021: CT abdomen/pelvis with contrast was performed. This demonstrated development of trace bilateral pleural effusions and mild bibasilar dependent opacities consistent with atelectasis versus mild infection. There is a persistent small amount of gas in the urinary bladder which could be related to gas-forming urinary tract infection versus recent instrumentation. No other abnormalities are present. * 04/11/2021: MRI thoracic spine with and without contrast was performed. This demonstrated laminectomies from T4-T6 with resection of the extrathecal mass. Edema in the paraspinous musculature and dorsal epidural space with scattered areas of enhancement which is nonspecific. There is a nonspecific peripherally enhancing collections in the dorsal subcutaneous soft tissues of the upper thoracic spine from T2-T4 measuring approximately 1.8 x 1 cm as well as in the paraspinous musculature centered at T3-T4 measuring 2.5 x 1.5 cm. There is increased cord signal at T5 and T6 which is less conspicuous on the prior examination representing resolving edema/evolving myelomalacia. No residual compressive lesion of the thoracic cord and no epidural collections. * 04/26/2021: Patient had follow-up with medical oncology. Due to declining performance status and risk for continuation of chemotherapy it was recommended to stop chemotherapy and plan was made to proceed with radiation therapy to the laminectomy bed. * 05/04/2021: Patient was evaluated by radiation collagen [facility]. Due to inability to proceed with adjuvant chemotherapy due to frailness plan was made to complete postoperative radiation therapy to the resection area consisting of 3600 cGy in 18 fractions. * From 05/17/2021 ? 06/12/2021: received 3600 cGy in 18 fractions to the T4-T7 area including paraspinal region manipulated at the time of surgery. * 09/12/2021: PET scan was completed and showed no evidence of disease. There is evidence of lung airspace disease consistent with activated leukocytosis from inflammatory process and also evidence for activated leukocytosis in the right posterior hemipelvis associated likely with an inflammatory process. * Radiation Treatment History:1) From 05/17/2021 ? 06/12/2021: received 3600 cGy in 18 fractions to the T4-T7 area including paraspinal region manipulated at the time of surgery. 4. 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 VTE prophylaxis: not indicated as pt already anticoagulated. Charges/Coding Visit Charges Inpatient E&M: 03026 Subs Hosp L2
[2021-10-09] MEDS: Atorvastatin Calcium 40 MG Tablet PO (23:05)
[2021-10-10 02:18] VITALS: BP 116/53; PULSE 80; RESP 16; TEMP 36.6; O2SAT 95
[2021-10-10] MEDS: Metoclopramide 10 MG Tablet PO ×3 (05:11→21:17)
[2021-10-10] MEDS: Piperacil/Tazobactam 3.375 GM/50 ML ML IV ×3 (05:11→21:18)
[2021-10-10 07:26] LABS: Absolute Lymphocyte Count 1.92 X10^3/uL (0.83-4.51); Absolute Neutrophil Count 13.5 X10^3/uL (2.0-7.7); Basophil# 0.03 X10^3/uL; Basophil% 0.2 % (0-1); Eosinophil# 0.99 X10^3/uL; Eosinophils% 5.7 % (0-5); Hematocrit 28.9 % (37-47); Hemoglobin 9.2 g/dL (12.0-15.0); Lymphocyte # 1.92 X10^3/ul (0.83-4.51); Lymphocyte % 11.1 % (19-41); Mean Corp Hgb Conc 31.8 g/dL (32-36); Mean Corpuscular Hgb 27.5 pg (27.0-32.0); Mean Corpuscular Volume 86.5 fL (81-99); Mean Platelet Vol. 9.6 fl (6.2-12.0); Monocyte# 0.77 X10^3/uL; Monocyte% 4.4 % (0-10); NRBC Flagged by Analyzer 0 % (0-5); Neutrophil # 13.52 X10^3/uL (2.7-7.7); Neutrophil % 78.1 % (47-70); POSITIVE MORPHOLOGY YES; Platelet Count 331 K/mm3 (150-450); RBC Distribution Width CV 17.3 % (11.6-14.6); RBC Distribution Width SD 55.4 fl (35.1-43.9); Red Blood Count 3.34 M/mm3 (4.2-5.4); White Blood Count 17.3 K/mm3 (4.4-11.0)
[2021-10-10 07:29] LABS: Differential Indicated SCAN CRITERIA MET
[2021-10-10 07:38] VITALS: BP 108/56; PULSE 73; RESP 16; TEMP 36.9; O2SAT 95
[2021-10-10 07:51] LABS: Hypersegmented Neutrophils 1+
[2021-10-10 08:16] LABS: ALB/GLOB Ratio 0.4 RATIO (0.9-2.4); AST(SGOT) 39 U/L (15-37); Alanine Aminotransfer ALT/SGPT 32 U/L (13-56); Albumin, Serum 1.4 g/dL (3.2-5.0); Alkaline Phosphatase 67 U/L (45-117); Anion Gap 7 (5-15); BUN 6 mg/dL (7-18); BUN/Creat Ratio 25.4 RATIO (10-20); Calcium,Total 8.7 mg/dL (8.5-10.1); Chloride 110 mmol/L (98-107); Creatinine, Serum 0.24 mg/dL (0.55-1.02); EST Glomerular Filtration Rate 302 mL/min (>60); Est Glom Filt Rate - Afr Amer 366 mL/min (>60); Estimated Creatinine Clearance 42.39 ml/min; Globulin 3.9 g/dL (2.2-4.2); Glucose 85 mg/dL (74-106); Potassium 3.4 mmol/L (3.5-5.1); Protein, Total 5.3 g/dL (6.4-8.2); Sodium Level 142 mmol/L (136-145)
--- NOTE | 2021-10-10 08:59 | WOUNDNOTE ---
Low air loss mattress ordered for patient. Pt is currently on a turn schedule.
[2021-10-10 09:15] VITALS: BP 108/56; PULSE 73
[2021-10-10] MEDS: Metoprolol(XL)Succ 50 MG Tablet PO ×2 (09:15→21:18)
[2021-10-10] MEDS: Losartan Potassium 100 MG Tablet PO (09:16)
[2021-10-10] MEDS: APIXABAN 5 MG TABLET PO ×2 (09:16→21:17)
[2021-10-10] MEDS: Amiodarone 200 MG Tablet 400 MG PO (09:16)
[2021-10-10] MEDS: Multivitamins,Therapeutic Tablet 1 TABLET PO (09:16)
--- NOTE | 2021-10-10 09:56 | CASEMGMT ---
Addendum entered by Diana Lange 10/10/21 10:09: Received tc back from Chayito at [facility], states they are active with PT but are contracted through [employer]. TC to [employer], spoke with tomy Akhtar active with SN and PT. Will fax dc info when pt ready. Original Note: TC to [facility] to inquire about patient's current disciplines with company. VM left requesting return call.
--- NOTE | 2021-10-10 11:21 | TELEMED_ITS ---
[facility] Tele[facility] has confirmed receipt of a request for visit. This document confirms receipt of the order initiating the consult. To find the results of the consultation, please view the patient's reports for the scanned Telemed Consult.
[2021-10-10 13:00] VITALS: BP 110/52; PULSE 68; RESP 12; TEMP 36.4; O2SAT 96
--- NOTE | 2021-10-10 14:26 | PN.HOSP_ITS ---
Subjective Subjective No new events. Objective Data Objective Data Vital Signs: Vital Signs Temp Pulse Resp BP Pulse Ox 36.4 C L 68 12 110/52 L 96 10/10/21 13:00 10/10/21 13:00 10/10/21 13:00 10/10/21 13:00 10/10/21 13:00 Oxygen Delivery Method Room Air Weight: 60.441 kg Body Mass Index (BMI) 22.1 Intake & Output: Intake and Output for Last 24 Hours 10/08/21 10/09/21 10/10/21 23:59 23:59 23:59 Intake Total 1136 / 1136 515 / 515 865 / 865 Output Total 1700 / 1700 2100 / 3000 1350 / 1350 Balance -564 / -564 -1585 / -2485 -485 / -485 Medical Nutrition Assessment Dietitian: Malnutrition Criteria Met Start: 10/08/21 10:35 Freq: Status: Active Protocol: Document 10/08/21 10:35 AG (Rec: 10/08/21 10:35 [id number]) Nutrition Malnutrition Evidence of Malnutrition Exists Yes Malnutrition (severe): Chronic Evidenced By Suboptimal Energy Intake ( Severe),Weight Loss (Severe) Clinical Problem Chronic Disease or Condition Related Malnutrition Etiology severe, chronic malnutrition r /t inadequate energy intake w/ increased energy needs d/t lymphoma, wounds Signs/Symptoms as evidenced by unintentional wt loss of 45.2#/25% wt loss x 5 month, estimated PO intake meeting <75% of estimated nutritional needs >3 months Status Active Problem Recommendation Dietitian Recommendations/Changes liberalize diet to regular w/ 4oz ensure enlive w/ meals ( strawberry) d/t malnutrition Lab / Micro Data Result Diagrams: 10/10/21 06:30 10/10/21 06:30 Labs: Laboratory Results - last 24 hr 10/10/21 06:30: WBC 17.3 H, RBC 3.34 L, Hgb 9.2 L, Hct 28.9 L, MCV 86.5, MCH 27.5, MCHC 31.8 L, RDW Std Deviation 55.4 H, RDW Coeff of Ivory 17.3 H, Plt Count 331, MPV 9.6, Immature Gran % (Auto) 0.500, Neut % (Auto) 78.1 H, Lymph % (Auto) 11.1 L, [place] % (Auto) 4.4, Eos % (Auto) 5.7 H, Baso % (Auto) 0.2, Absolute Neuts (auto) 13.5 H, Absolute Lymphs (auto) 1.92, Nucleated RBC % 0, Diff Path Review May foll, Hypersegmented Neuts 1+ H 10/10/21 06:30: Sodium 142, Potassium 3.4 L, Chloride 110 H, Carbon Dioxide 25.0 , Anion Gap 7, BUN 6 L, Creatinine 0.24 L, Estim Creat Clear Calc 42.39, Est GFR (MDRD) Af Amer 366, Est GFR (MDRD) Non-Af 302, BUN/Creatinine Ratio 25.4 H, Glucose 85, Calcium 8.7, Total Bilirubin 0.40, AST 39 H, ALT 32, Alkaline Phosphatase 67, Total Protein 5.3 L, Albumin 1.4 L, Globulin 3.9, Albumin/Globulin Ratio 0.4 L Micro: Microbiology 10/07/21 11:25 Urine, Catheterized Urine Culture - Final Presumptive C albicans 10/07/21 18:50 Ulcer, Decubitus - Buttock Gram Stain - Final 10/07/21 18:50 Ulcer, Decubitus - Buttock Wound Culture - Final Klebsiella oxytoca Staphylococcus haemolyticus Corynebacterium striatum 10/07/21 11:00 Blood Culture (Wb) - Anticubital Left Bacteria Detection (PCR) - Final Staphylococcus epidermidis 10/07/21 11:00 Blood Culture (Wb) - Anticubital Left Blood Culture - Preliminary Staphylococcus epidermidis 10/07/21 11:00 Blood Culture (Wb) - Anticubital Left Blood Culture - Preliminary No growth in 48 hours. Physical Exam Const alert Constitutional Narrative: having her EEG. Psych affect normal Assessment & Plan Assessment/Plan (1) Metabolic encephalopathy: (2) Decubitus ulcer, infected: QUALIFIERS: Pressure injury stage: stage 4 Qualified Code(s): L89.94 - Pressure ulcer of unspecified site, stage 4; L08.9 - Local infection of the skin and subcutaneous tissue, unspecified PLAN: 1. metabolic encephalopathy resolved MRI: 8mm left IAC lesion (acoustic schwannoma v meningioma and metastatic disea se as possibilities. This may be incidental to her main complaint. PET scan from 09/12 did not show any acute issues on her brain. check EEG as lesion could be a focus for szrs consult [facility] teleneurology after EEG completed. 2. Stage 4 decubitus ulcer wound growing out S epi. consult ID to see if long-term abx necessary. on pip/tazo and vanc, deescalate as further culture information presents. 3. Large B cell lymphoma Follow up with med and rad onc History: * 03/20/2021: MRI cervical/thoracic/lumbar spine was completed. This demonstrated a large homogeneously enhancing dural based mass involving the spinal canal spanning the T4-T7 levels with associated edema/enhancement involving the facets and spinous process of T6. There is marked ventral displacement and compression of the thoracic cord at the level of the mass most notable at the T5 and T6 levels with associated cord edema. There is evidence for multilevel degenerative changes throughout the cervical, thoracic, and lumbar spine. No other abnormalities are identified. * 03/20/2021: Patient underwent emergent excision of the thoracic spine dural mass which was compressing the spinal cord at the level of T4-T7 associated with epidural hematoma which was evacuated by neurosurgery. 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 CSF showed no evidence of lymphoma by flow cytometry. * 03/22/2021: CT abdomen/pelvis with contrast was performed which demonstrated no acute findings or evidence of malignancy in the abdomen/pelvis. * 03/22/2021: CT chest with IV contrast was performed. This demonstrated several ill-defined tiny pulmonary nodules present which could be inflammatory, recommend follow-up. Postoperative changes from the recent spine surgery in the upper to mid thoracic spine region are identified. Hypodense thyroid lesions are seen, largest measuring up to 15 mm in the left lobe. There are small nonenlarged mediastinal and hilar nodes that are likely reactive. No other abnormalities are present. * 03/23/2021: Thyroid ultrasound was performed. TI-RADS category TR two, no follow-up or FNA is advised. * 03/27/2021: PET scan was performed. There is a 3.2 x 2.5 cm indeterminant FDG avid lesion within the second/third portion of the duodenum, recommend correlation with ultrasound. SUV of this lesion is 13.3 and corresponds to a possible intraluminal lesion. There are no other FDG avid lesions noted throughout the exam. * 03/30/2021: EGD was performed. This demonstrated a normal-appearing duodenum and no biopsies were taken. * 03/29/2021: Patient was diagnosed with diffuse large B-cell lymphoma stage IE initiated R-CHOP with Dr. Arteaga in medical oncology at [facility] * 04/06/2021: Patient was admitted with palpitations, tachycardia, and n eutropenic fever. Patient was found to be in A. fib with RVR and diagnosed with C. difficile infection and discharged with vancomycin. * 04/06/2021: CT abdomen/pelvis with contrast was performed. This demonstrated development of trace bilateral pleural effusions and mild bibasilar dependent opacities consistent with atelectasis versus mild infection. There is a persistent small amount of gas in the urinary bladder which could be related to gas-forming urinary tract infection versus recent instrumentation. No other abnormalities are present. * 04/11/2021: MRI thoracic spine with and without contrast was performed. This demonstrated laminectomies from T4-T6 with resection of the extrathecal mass. Edema in the paraspinous musculature and dorsal epidural space with scattered areas of enhancement which is nonspecific. There is a nonspecific peripherally enhancing collections in the dorsal subcutaneous soft tissues of the upper thoracic spine from T2-T4 measuring approximately 1.8 x 1 cm as well as in the paraspinous musculature centered at T3-T4 measuring 2.5 x 1.5 cm. There is increased cord signal at T5 and T6 which is less conspicuous on the prior examination representing resolving edema/evolving myelomalacia. No residual compressive lesion of the thoracic cord and no epidural collections. * 04/26/2021: Patient had follow-up with medical oncology. Due to declining performance status and risk for continuation of chemotherapy it was recommended to stop chemotherapy and plan was made to proceed with radiation therapy to the laminectomy bed. * 05/04/2021: Patient was evaluated by radiation collagen [facility]. Due to inability to proceed with adjuvant chemotherapy due to frailness plan was made to complete postoperative radiation therapy to the resection area consisting of 3600 cGy in 18 fractions. * From 05/17/2021 ? 06/12/2021: received 3600 cGy in 18 fractions to the T4-T7 area including paraspinal region manipulated at the time of surgery. * 09/12/2021: PET scan was completed and showed no evidence of disease. There is evidence of lung airspace disease consistent with activated leukocytosis from inflammatory process and also evidence for activated leukocytosis in the right posterior hemipelvis associated likely with an inflammatory process. * Radiation Treatment History:1) From 05/17/2021 ? 06/12/2021: received 3600 cGy in 18 fractions to the T4-T7 area including paraspinal region manipulated at the time of surgery. 4. 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 VTE prophylaxis: not indicated as pt already anticoagulated. Charges/Coding Visit Charges Inpatient E&M: 39467 Subs Hosp L1
--- NOTE | 2021-10-10 16:54 | CHAPLAIN ---
Type of Pastoral Visit _x__ Initial Visit ___ Follow-up Visit ___ On-call Visit ___ General Patient Visit ___ Spiritual Assessment ___ Family Conference ___ Bereavement ___ Rapid Response ___ Code Blue ___ Other (describe below) Pastoral Care Referral From _x__ Patient ___ Family ___ Nurse ___ Physician ___ Cleaners ___ Director Of Retail Marketing ___ Other (describe below) Sacrament/Intervention _x__ Active listening ___ Anointing ___ Christian ___ Bereavement ___ Communion ___ Latasha exploration ___ ___ Life review _x__ Prayer ___ Reconciliation ___ Sacrament of Sick _x__ Supportive presence ___ Wedding ___ Other (describe below) Pastoral Comments patient had been seen in previous admission; update and follow up
[2021-10-10 20:00] VITALS: BP 144/73; PULSE 72; RESP 18; TEMP 37.1; O2SAT 93
[2021-10-10] MEDS: Atorvastatin Calcium 40 MG Tablet PO (21:17)
[2021-10-10] MEDS: 0.9% Saline Lock 10 ML Syringe IV (21:17)
[2021-10-10 21:18] VITALS: BP 152/73; PULSE 75
[2021-10-11 02:00] VITALS: BP 154/54; PULSE 77; RESP 16; TEMP 37.2; O2SAT 94
--- NOTE | 2021-10-11 02:41 | PHA.PHARE_ITS ---
Consult Pharmacy has been consulted to manage selected antiobiotic: Vancomycin Type of Consult: Follow-up Labs: Sodium 142 mmol/L (136-145) 10/10/21 06:30 Potassium 3.4 mmol/L (3.5-5.1) L 10/10/21 06:30 Chloride 110 mmol/L (98-107) H 10/10/21 06:30 Carbon Dioxide 25.0 mmol/L (21.0-32.0) 10/10/21 06:30 Anion Gap 7 (5-15) 10/10/21 06:30 BUN 6 mg/dL (7-18) L 10/10/21 06:30 Creatinine 0.24 mg/dL (0.55-1.02) L 10/10/21 06:30 Est GFR (MDRD) Af Amer 366 mL/min (>60) 10/10/21 06:30 Est GFR (MDRD) Non-Af 302 mL/min (>60) 10/10/21 06:30 BUN/Creatinine Ratio 25.4 RATIO (10-20) H 10/10/21 06:30 Glucose 85 mg/dL (74-106) 10/10/21 06:30 Vancomycin Trough 16.0 ug/mL (5.0-15.0) H 10/11/21 01:43 Microbiology: Microbiology 10/07/21 11:25 Urine, Catheterized Urine Culture - Final Presumptive C albicans 10/07/21 18:50 Ulcer, Decubitus - Buttock Gram Stain - Final 10/07/21 18:50 Ulcer, Decubitus - Buttock Wound Culture - Final Klebsiella oxytoca Staphylococcus haemolyticus Corynebacterium striatum 10/07/21 11:00 Blood Culture (Wb) - Anticubital Left Bacteria Detection (PCR) - Final Staphylococcus epidermidis 10/07/21 11:00 Blood Culture (Wb) - Anticubital Left Blood Culture - Prelimi nary Staphylococcus epidermidis 10/07/21 11:00 Blood Culture (Wb) - Anticubital Left Blood Culture - Preliminary No growth in 48 hours. Goal Trough: 15-20 mcg/mL Pharmacy Plan for Drug Dosing: Pharmacy Service will continue to monitor and adjust dosing as required. TROUGH 16 AT 10HRS. NO CHANGES FOLLOW UP IN 2 DAYS WITH NEW TROUGH Follow-Up Labs: Trough Vancomycin Labs to be done on [date and time ordered]: 10/13 @ 0132
[2021-10-11] MEDS: Piperacil/Tazobactam 3.375 GM/50 ML ML IV (05:42)
[2021-10-11] MEDS: Metoclopramide 10 MG Tablet PO ×3 (05:42→23:14)
[2021-10-11 08:00] VITALS: BP 150/73; PULSE 89; RESP 14; TEMP 37.3; O2SAT 94
[2021-10-11 08:25] VITALS: PULSE 89
[2021-10-11] MEDS: Losartan Potassium 100 MG Tablet PO (08:25)
[2021-10-11] MEDS: APIXABAN 5 MG TABLET PO ×2 (08:25→23:13)
[2021-10-11] MEDS: Amiodarone 200 MG Tablet 400 MG PO (08:25)
[2021-10-11] MEDS: Multivitamins,Therapeutic Tablet 1 TABLET PO (08:25)
[2021-10-11] MEDS: Metoprolol(XL)Succ 50 MG Tablet PO ×2 (08:25→23:13)
--- NOTE | 2021-10-11 09:00 | NURSING ---
soc monitor has been brought to pts room. this nurse is at bedside charting incase the neurologist comes on
[2021-10-11 09:50] LABS: Pathologist Review Reviewed
--- NOTE | 2021-10-11 10:00 | MRI_ITS ---
STUDY: MRI BRAIN WITH AND WITHOUT CONTRAST (ATTENTION INTERNAL AUDITORY CANALS - I.A.C.''s) REASON FOR EXAM: Female, 76 years old. confusion -- attention to left IAC, F/U TO PREV MRI TECHNIQUE: Standardized multiplanar fat and water weighted pulse sequences were obtained. IV 12ml Dotarem was administered for the contrast portion of the examination. COMPARISON: 10/10/2021 MRI of the brain FINDINGS: Again noted is the enhancing nodule (0.8 x 0.7 x 0.8 cm ) at the left IAC which extends into the porous acousticus. There is no demonstrated right intracanalicular or cisternal vestibular schwannoma (acoustic neuroma). Normal bilateral cochlea, vestibules and semicircular canals. MRI/Brain W/WO Contrast IMPRESSION: 8 mm left IAC lesion. Differential considerations include vestibular schwannoma (acoustic neuroma), meningioma and metastatic disease. Electronically Signed: Vira Moise MD at 13:48 EST Tel , Service support ,
--- NOTE | 2021-10-11 10:51 | PCM.CONS.GEN ---
Assessment & Plan Assessment/Plan (1) Pressure ulcer of sacral region, unstageable: PLAN: Given the appearance of the wound and the overall clinical picture, low suspicion for active infection. At this time I would discontinue the vancomycin and Zosyn and observe off antibiotic therapy and continue local wound care as you are doing. HPI Consult Data Date of Consult: 10/11/21 HPI Narrative HPI Narrative: CHRISTOPHER CORONEL, is a 76 F who presentsEarlier this week with altered mental status. Patient has a complicated past medical history of B cell large cell lymphoma and invaded her thoracic spine with resultant paralysis. Patient does have a chronic pressure ulcer on her sacral area which is closely being followed by the wound care center and currently has a wound VAC.I was asked to evaluate the wound for concern of possible infection. Patient is currently on vancomycin plus Zosyn. I did review with the pictures of the wound from this Saturday and also talked to the wound care nurse regards to the appearance of the wound. Patient has not had fevers or chills nor any significant constitutional symptoms. She is overall clinically stable. She does have a chronic Gutierrez catheter in place.History is obtained through talking to the patient as well as the patient's at the bedside. [facility] Medical History (Updated 10/09/21 @ 15:[address] Jose Garcia, ) Afib Atrial fibrillation with rapid ventricular response Chronic indwelling Gutierrez catheter Colostomy in place Coronary artery disease Decubitus ulcer Diffuse large B-cell lymphoma Hypertension Large cell lymphoma Myocardial infarct Paraplegia Pressure sore Home Medications multivitamin 1 tab PO DAILY 05/14/21 [History Last Taken 10/06/21] Eliquis 5 mg PO BID 30 Days #60 tab 07/20/21 [Rx Last Taken 10/06/21] acetaminophen 1,000 mg PO Q6H PRN PRN #0 tab 07/20/21 [Rx Last Taken Unknown] atorvastatin 40 mg PO DAILY 30 Days #30 tab 07/20/21 [Rx Last Taken 10/06/21] metoprolol succinate 50 mg PO Q6H 30 Days #120 tab 07/20/21 [Rx Last Taken 10/07/21 0800] baclofen 10 mg PO TID 08/28/21 [History Last Taken 10/07/21 0800] amiodarone 400 mg PO DAILY@0800 10/07/21 [History Last Taken 10/06/21] amoxicillin-pot clavulanate [Augmentin] 1 tab PO Q12H 10/07/21 [History Last Taken 10/06/21] doxycycline monohydrate 100 mg PO BID 10/07/21 [History Last Taken 10/06/21] gabapentin 100 mg PO DAILY 10/07/21 [History Last Taken 10/06/21] losartan 100 mg PO DAILY 10/07/21 [History Last Taken 10/06/21] metoclopramide HCl 10 mg PO TID 10/07/21 [History Last Taken Unknown] Allergy/AdvReac Type Severity Reaction Status Date / Time No Known Allergies Allergy Verified 10/07/21 10:13 Family History (Reviewed 08/11/21 @ 16:24 by Barbra Esparza COFFEE MACHINE TECHNICIAN, COFFEE MACHINE TECHNICIAN-C) Father CHF (congestive heart failure) Mother CAD (coronary artery disease) Alzheimer disease Surgical History (Updated 10/07/21 @ 14:14 by Shirley Tristan) History of cholecystectomy Hx of CABG S/P cholecystectomy Social History household members: family housing: house number of children: 5 Smoking Status: Never smoker alcohol intake: never substance use type: does not use chris/catholic: [facility] Physical Exam Narrative Alert responsive does not appear toxic lungs are clear heart exam S1-S2 abdomen is obese but soft. I did try to examine her spine and lower back area with the help of a healthcare provider on the floor, patient does have wound VAC in place. I did reviewed the pictures from Saturday when the wound VAC was changed. Medical Records Data Medical Nutrition Assessment Dietitian: Malnutrition Criteria Met Start: 10/08/21 10:35 Freq: Status: Active Protocol: Document 10/08/21 10:35 AG (Rec: 10/08/21 10:35 AG [id number]) Nutrition Malnutrition Evidence of Malnutrition Exists Yes Malnutrition (severe): Chronic Evidenced By Suboptimal Energy Intake ( Severe),Weight Loss (Severe) Clinical Problem Chronic Disease or Condition Related Malnutrition Etiology severe, chronic malnutrition r /t inadequate energy intake w/ increased energy needs d/t lymphoma, wounds Signs/Symptoms as evidenced by unintentional wt loss of 45.2#/25% wt loss x 5 month, estimated PO intake meeting <75% of estimated nutritional needs >3 months Status Active Problem Recommendation Dietitian Recommendations/Changes liberalize diet to regular w/ 4oz ensure enlive w/ meals ( strawberry) d/t malnutrition Lab / Micro Data Result Diagrams: 10/10/21 06:30 10/10/21 06:30 Labs: Laboratory Results - last 24 hr 10/10/21 06:30: Diff Path Review Reviewed 10/11/21 01:43: Vancomycin Trough 16.0 H Micro: Microbiology 10/07/21 18:50 Ulcer, Decubitus - Buttock Gram Stain - Final 10/07/21 18:50 Ulcer, Decubitus - Buttock Wound Culture - Final Klebsiella oxytoca Staphylococcus haemolyticus Corynebacterium striatum 10/07/21 18:50 Ulcer, Decubitus - Buttock Anaerobic Culture - Final No anaerobic bacteria isolated. 10/07/21 11:00 Blood Culture (Wb) - Anticubital Left Bacteria Detection (PCR) - Final Staphylococcus epidermidis 10/07/21 11:00 Blood Culture (Wb) - Anticubital Left Blood Culture - Preliminary Staphylococcus epidermidis 10/07/21 11:25 Urine, Catheterized Urine Culture - Final Presumptive C albicans
--- NOTE | 2021-10-11 13:35 | PN.HOSP_ITS ---
Subjective Subjective no further events. Objective Data Objective Data Vital Signs: Vital Signs Temp Pulse Resp BP Pulse Ox 37.3 C 89 14 150/73 H 94 10/11/21 08:00 10/11/21 08:25 10/11/21 08:00 10/11/21 08:00 10/11/21 08:00 Oxygen Delivery Method Room Air Weight: 60.441 kg Body Mass Index (BMI) 22.1 Intake & Output: Intake and Output for Last 24 Hours 10/09/21 10/10/21 10/11/21 23:59 23:59 23:59 Intake Total 515 / 515 1180 / 1180 1285 / 1285 Output Total 2100 / 3000 1350 / 1350 1800 / 1800 Balance -1585 / -2485 -170 / -170 -515 / -515 Medical Nutrition Assessment Dietitian: Malnutrition Criteria Met Start: 10/08/21 10:35 Freq: Status: Active Protocol: Document 10/08/21 10:35 AG (Rec: 10/08/21 10:35 [id number]) Nutrition Malnutrition Evidence of Malnutrition Exists Yes Malnutrition (severe): Chronic Evidenced By Suboptimal Energy Intake ( Severe),Weight Loss (Severe) Clinical Problem Chronic Disease or Condition Related Malnutrition Etiology severe, chronic malnutrition r /t inadequate energy intake w/ increased energy needs d/t lymphoma, wounds Signs/Symptoms as evidenced by unintentional wt loss of 45.2#/25% wt loss x 5 month, estimated PO intake meeting <75% of estimated nutritional needs >3 months Status Active Problem Recommendation Dietitian Recommendations/Changes liberalize diet to regular w/ 4oz ensure enlive w/ meals ( strawberry) d/t malnutrition Lab / Micro Data Result Diagrams: 10/10/21 06:30 10/10/21 06:30 Labs: Laboratory Results - last 24 hr 10/10/21 06:30: Diff Path Review Reviewed 10/11/21 01:43: Vancomycin Trough 16.0 H Micro: Microbiology 10/07/21 18:50 Ulcer, Decubitus - Buttock Gram Stain - Final 10/07/21 18:50 Ulcer, Decubitus - Buttock Wound Culture - Final Klebsiella oxytoca Staphylococcus haemolyticus Corynebacterium striatum 10/07/21 18:50 Ulcer, Decubitus - Buttock Anaerobic Culture - Final No anaerobic bacteria isolated. 10/07/21 11:00 Blood Culture (Wb) - Anticubital Left Bacteria Detection (PCR) - Final Staphylococcus epidermidis 10/07/21 11:00 Blood Culture (Wb) - Anticubital Left Blood Culture - P reliminary Staphylococcus epidermidis 10/07/21 11:25 Urine, Catheterized Urine Culture - Final Presumptive C albicans 10/07/21 11:00 Blood Culture (Wb) - Anticubital Left Blood Culture - Preliminary No growth in 48 hours. Physical Exam Const alert and no apparent distress Neck no lymphadenopathy Resp normal respiratory effort, no retractions, no use of accessory muscles and clear to auscultation bilaterally Cardio regular rate, regular rhythm, S1 normal heart sound and S2 normal heart sound GI normal to inspection, nondistended, normoactive bowel sounds, soft to palpation, non-tender and non-distended Assessment & Plan Assessment/Plan (1) Metabolic encephalopathy: (2) Decubitus ulcer, infected: QUALIFIERS: Pressure injury stage: stage 4 Qualified Code(s): L89.94 - Pressure ulcer of unspecified site, stage 4; L08.9 - Local infection of the skin and subcutaneous tissue, unspecified PLAN: 1. metabolic encephalopathy resolved. Unclear etiology. UA negative for infection and ID feels decubitus ulcer not infected at this point. MRI: 8mm left IAC lesion (acoustic schwannoma v meningioma and metastatic disease as possibilities. This may be incidental to her main complaint. PET scan from 09/12 did not show any acute issues on her brain. EEG negative for seiuzres DC SOC neurology, felt to be metabolic, but did recommend an MRI of IAC lesion 2. Stage 4 decubitus ulcer wound growing out S epi. consult ID to see if long-term abx necessary. ID feels it is colonization and discontinued abx will observe 3. Large B cell lymphoma Follow up with med and rad onc History: * 03/20/2021: MRI cervical/thoracic/lumbar spine was completed. This demonstrated a large homogeneously enhancing dural based mass involving the spinal canal spanning the T4-T7 levels with associated edema/enhancement involving the facets and spinous process of T6. There is marked ventral displacement and compression of the thoracic cord at the level of the mass most notable at the T5 and T6 levels with associated cord edema. There is evidence for multilevel degenerative changes throughout the cervical, thoracic, and lumbar spine. No other abnormalities are identified. * 03/20/2021: Patient underwent emergent excision of the thoracic spine dural mass which was compressing the spinal cord at the level of T4-T7 associated with epidural hematoma which was evacuated by neurosurgery. 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 CSF showed no evidence of lymphoma by flow cytometry. * 03/22/2021: CT abdomen/pelvis with contrast was performed which demonstrated no acute findings or evidence of malignancy in the abdomen/pelvis. * 03/22/2021: CT chest with IV contrast was performed. This demonstrated several ill-defined tiny pulmonary nodules present which could be inflammatory, recommend follow-up. Postoperative changes from the recent spine surgery in the upper to mid thoracic spine region are identified. Hypodense thyroid lesions are seen, largest measuring up to 15 mm in the left lobe. There are small nonenlarged mediastinal and hilar nodes that are likely reactive. No other abnormalities are present. * 03/23/2021: Thyroid ultrasound was performed. TI-RADS category TR two, no follow-up or FNA is advised. * 03/27/2021: PET scan was performed. There is a 3.2 x 2.5 cm indeterminant FDG avid lesion within the second/third portion of the duodenum, recommend correlation with ultrasound. SUV of this lesion is 13.3 and corresponds to a possible intraluminal lesion. There are no other FDG avid lesions noted throughout the exam. * 03/30/2021: EGD was performed. This demonstrated a normal-appearing duodenum and no biopsies were taken. * 03/29/2021: Patient was diagnosed with diffuse large B-cell lymphoma stage IE initiated R-CHOP with Dr. Arteaga in medical oncology at [facility] * 04/06/2021: Patient was admitted with palpitations, tachycardia, and neutropenic fever. Patient was found to be in A. fib with RVR and diagnosed with C. difficile infection and discharged with vancomycin. * 04/06/2021: CT abdomen/pelvis with contrast was performed. This demonstrated development of trace bilateral pleural effusions and mild bibasilar dependent opacities consistent with atelectasis versus mild infection. There is a persistent small amount of gas in the urinary bladder which could be related to gas-forming urinary tract infection versus recent instrumentation. No other abnormalities are present. * 04/11/2021: MRI thoracic spine with and without contrast was performed. This demonstrated laminectomies from T4-T6 with resection of the extrathecal mass. Edema in the paraspinous musculature and dorsal epidural space with scattered areas of enhancement which is nonspecific. There is a nonspecific pe ripherally enhancing collections in the dorsal subcutaneous soft tissues of the upper thoracic spine from T2-T4 measuring approximately 1.8 x 1 cm as well as in the paraspinous musculature centered at T3-T4 measuring 2.5 x 1.5 cm. There is increased cord signal at T5 and T6 which is less conspicuous on the prior examination representing resolving edema/evolving myelomalacia. No residual compressive lesion of the thoracic cord and no epidural collections. * 04/26/2021: Patient had follow-up with medical oncology. Due to declining performance status and risk for continuation of chemotherapy it was recommended to stop chemotherapy and plan was made to proceed with radiation therapy to the laminectomy bed. * 05/04/2021: Patient was evaluated by radiation collagen [facility]. Due to inability to proceed with adjuvant chemotherapy due to frailness plan was made to complete postoperative radiation therapy to the resection area consisting of 3600 cGy in 18 fractions. * From 05/17/2021 ? 06/12/2021: received 3600 cGy in 18 fractions to the T4-T7 area including paraspinal region manipulated at the time of surgery. * 09/12/2021: PET scan was completed and showed no evidence of disease. There is evidence of lung airspace disease consistent with activated leukocytosis from inflammatory process and also evidence for activated leukocytosis in the right posterior hemipelvis associated likely with an inflammatory process. * Radiation Treatment History:1) From 05/17/2021 ? 06/12/2021: received 3600 cGy in 18 fractions to the T4-T7 area including paraspinal region manipulated at the time of surgery. 4. 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 VTE prophylaxis: not indicated as pt already anticoagulated. Charges/Coding Visit Charges Inpatient E&M: 64447 Subs Hosp L2
[2021-10-11 13:43] VITALS: BP 118/57; PULSE 81; RESP 16; TEMP 37.3; O2SAT 95
[2021-10-11 23:04] VITALS: BP 143/72; PULSE 89; RESP 18; TEMP 36.6; O2SAT 96
[2021-10-11 23:13] VITALS: BP 143/72; PULSE 89
[2021-10-11] MEDS: Atorvastatin Calcium 40 MG Tablet PO (23:13)
[2021-10-11] MEDS: 0.9% Saline Lock 10 ML Syringe IV (23:13)
[2021-10-12 01:16] VITALS: BP 120/70; PULSE 89; RESP 18; TEMP 37; O2SAT 97
[2021-10-12 06:40] VITALS: BP 164/74; PULSE 85; RESP 18; TEMP 36.6; O2SAT 97
[2021-10-12] MEDS: Metoclopramide 10 MG Tablet PO ×2 (06:44→13:31)
--- NOTE | 2021-10-12 09:01 | CASEMGMT ---
Late entry 10/11/2021- TC to Romelia to give update on pt to kyle Beckwith.
--- NOTE | 2021-10-12 09:48 | NURSING ---
pt and gave verbal permission for pt/pt's care to be discussed with her home health nurse on the phone whom they had called this a.m.
[2021-10-12 10:07] VITALS: BP 118/48; PULSE 78; RESP 16; TEMP 36.8; O2SAT 98
[2021-10-12 10:12] VITALS: PULSE 78
[2021-10-12] MEDS: Amiodarone 200 MG Tablet 400 MG PO (10:12)
[2021-10-12] MEDS: Multivitamins,Therapeutic Tablet 1 TABLET PO (10:12)
[2021-10-12] MEDS: Losartan Potassium 100 MG Tablet PO (10:12)
[2021-10-12] MEDS: Metoprolol(XL)Succ 50 MG Tablet PO (10:12)
[2021-10-12] MEDS: APIXABAN 5 MG TABLET PO (10:12)
--- NOTE | 2021-10-12 10:58 | PCM.DC ---
Discharge Instructions Diet Discharge Diet: No restrictions Activity Discharge Activity: Return to Normal Activity Additional Activity Instructions:: up with assistance Dressing / Incision Call your doctor if your incision/area has: Continuous Slow Oozing, Sudden Increased Bleeding and Increased Pain/ Swelling Call your doctor if you observe: Fever of 101 or Higher Follow Up Care Test Results: Test results from this visit will be discussed in further detail at your follow-up appointment, if applicable. Discharge Plan Admission Admit Date/Time: 10/07/21 15:50 Primary Reason for Your Visit: confusion Attending Provider: Jose Garcia Primary Care Provider: Modesto Fulton Consulting Providers: Dieudonne Peña Discharge Orders/Prescriptions Prescriptions: Continued multivitamin Tablet 1 tab PO DAILY RF: 0 acetaminophen 500 mg Tablet 1,000 mg PO Q6H PRN PRN (Reason: Pain Score 1-10) Qty: 0 RF: 0 atorvastatin 40 mg tablet 40 mg PO DAILY 30 Days Qty: 30 RF: 0 metoprolol succinate 50 mg tablet extended release 24 hr 50 mg PO Q6H 30 Days Qty: 120 RF: 0 Eliquis 5 mg tablet 5 mg PO BID 30 Days Qty: 60 RF: 0 amiodarone 200 mg tablet 400 mg PO DAILY@0800 RF: 0 losartan 100 mg tablet 100 mg PO DAILY RF: 0 metoclopramide HCl 10 mg Tablet 10 mg PO TID RF: 0 Discontinued baclofen 5 mg Tablet 10 mg PO TID RF: 0 amoxicillin-pot clavulanate [Augmentin] 875-125 mg tablet 1 tab PO Q12H RF: 0 doxycycline monohydrate 100 mg tablet 100 mg PO BID RF: 0 gabapentin 100 mg Tablet 100 mg PO DAILY RF: 0 Referrals / Follow Up: Robin Davenport MD [NON-STAFF] - Within 2 Weeks Jake Johnson MD [STAFF PHYSICIAN] - Within 1 Month (neurology) Modesto Fulton MD [Primary Care Provider] - Within 2 Weeks Aric Polo DO [NON-STAFF] - Within 2 Weeks Lev Stokes MD [NON-STAFF] - Within 1 Month (neurology) Disposition Disposition (needs filled in before D/C Order can be placed): Home Health Service
--- NOTE | 2021-10-12 11:05 | PCM.DC.SUM ---
Providers Date of Admission: 10/07/21 Primary Care Physician: Dr. Modesto Fulton MD Consultations 10/07/21 19:37 Consult: Onc/Wound/music orchestrator Routine Comment: SACRAL AND L LOWER BUTTOCK PRESSURE WOUNDS 10/09/21 15:36 Consult: Infectious Disease Routine Consulting Provider: Dieudonne Peña Reason for Consult: sacral wound infection EMERGENT Consult: No MD Notified: Yes Date Notified: 10/10/21 Time Notified: 09:21 Method of Notification: office Reason For Visit: ACUTE METABOLIC ENCEPHALOPATHY Diagnosis Discharge Diagnosis (1) Metabolic encephalopathy: Status: Acute Code(s): G93.41 - Metabolic encephalopathy (2) Decubitus ulcer, infected: Status: Acute Code(s): L89.90 - Pressure ulcer of unspecified site, unspecified stage; L08.9 - Local infection of the skin and subcutaneous tissue, unspecified Qualifiers: Pressure injury stage: stage 4 Qualified Code(s): L89.94 - Pressure ulcer of unspecified site, stage 4; L08.9 - Local infection of the skin and subcutaneous tissue, unspecified Medications at Discharge Home Medications multivitamin 1 tab PO DAILY 05/14/21 Eliquis 5 mg PO BID 30 Days #60 tab 07/20/21 acetaminophen 1,000 mg PO Q6H PRN PRN #0 tab 07/20/21 atorvastatin 40 mg PO DAILY 30 Days #30 tab 07/20/21 metoprolol succinate 50 mg PO Q6H 30 Days #120 tab 07/20/21 amiodarone 400 mg PO DAILY@0800 10/07/21 losartan 100 mg PO DAILY 10/07/21 metoclopramide HCl 10 mg PO TID 10/07/21 Hospital Course Operations None Procedures None Summary of Care Provided Minutes Spent on Discharge: 35 Hospital Course: 1. metabolic encephalopathy resolved. Unclear etiology, though I suspect it may actually be iatrogenic from baclofen, gabapentin--which will be held UA negative for infection and ID feels decubitus ulcer not infected at this point. MRI: 8mm left IAC lesion (acoustic schwannoma v meningioma and metastatic disease as possibilities. This may be incidental to her main complaint. PET scan from 09/12 did not show any acute issues on her brain. EEG negative for seiuzres SOC neurology, felt to be metabolic, but did recommend an MRI of IAC lesion Will need follow up for IAC lesion (may be chronic and benign) 2. Stage 4 decubitus ulcer wound growing out S epi. consult ID to see if long-term abx necessary. ID feels it is colonization and discontinued abx will observe 3. Large B cell lymphoma Follow up with med and rad onc History: 03/20/2021: MRI cervical/thoracic/lumbar spine was completed. This demonstrated a large homogeneously enhancing dural based mass involving the spinal canal spanning the T4-T7 levels with associated edema/enhancement involving the facets and spinous process of T6. There is marked ventral displacement and compression of the thoracic cord at the level of the mass most notable at the T5 and T6 levels with associated cord edema. There is evidence for multilevel degenerative changes throughout the cervical, thoracic, and lumbar spine. No other abnormalities are identified. 03/20/2021: Patient underwent emergent excision of the thoracic spine dural mass which was compressing the spinal cord at the level of T4-T7 associated with epidural hematoma which was evacuated by neurosurgery. 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 CSF showed no evidence of lymphoma by flow cytometry. 03/22/2021: CT abdomen/pelvis with contrast was performed which demonstrated no acute findings or evidence of malignancy in the abdomen/pelvis. 03/22/2021: CT chest with IV contrast was performed. This demonstrated several ill-defined tiny pulmonary nodules present which could be inflammatory, recommend follow-up. Postoperative changes from the recent spine surgery in the upper to mid thoracic spine region are identified. Hypodense thyroid lesions are seen, largest measuring up to 15 mm in the left lobe. There are small nonenlarged mediastinal and hilar nodes that are likely reactive. No other abnormalities are present. 03/23/2021: Thyroid ultrasound was performed. TI-RADS category TR two, no follow-up or FNA is advised. 03/27/2021: PET scan was performed. There is a 3.2 x 2.5 cm indeterminant FDG avid lesion within the second/third portion of the duodenum, recommend correlation with ultrasound. SUV of this lesion is 13.3 and corresponds to a possible intraluminal lesion. There are no other FDG avid lesions noted throughout the exam. 03/30/2021: EGD was performed. This demonstrated a normal-appearing duodenum and no biopsies were taken. 03/29/2021: Patient was diagnosed with diffuse large B-cell lymphoma stage IE initiated R-CHOP with Dr. Arteaga in medical oncology at [facility] 04/06/2021: Patient was admitted with palpitations, tachycardia, and neutropenic fever. Patient was found to be in A. fib with RVR and diagnosed with C. difficile infection and discharged with vancomycin. 04/06/2021: CT abdomen/pelvis with contrast was performed. This demonstrated development of trace bilateral pleural effusions and mild bibasilar dependent opacities consistent with atelectasis versus mild infection. There is a persistent small amount of gas in the urinary bladder which could be related to gas-forming urinary tract infection versus recent instrumentation. No other abnormalities are present. 04/11/2021: MRI thoracic spine with and without contrast was performed. This demonstrated laminectomies from T4-T6 with resection of the extrathecal mass. Edema in the paraspinous musculature and dorsal epidural space with scattered areas of enhancement which is nonspecific. There is a nonspecific peripherally enhancing collections in the dorsal subcutaneous soft tissues of the upper thoracic spine from T2-T4 measuring approximately 1.8 x 1 cm as well as in the paraspinous musculature centered at T3-T4 measuring 2.5 x 1.5 cm. There is increased cord signal at T5 and T6 which is less conspicuous on the prior examination representing resolving edema/evolving myelomalacia. No residual compressive lesion of the thoracic cord and no epidural collections. 04/26/2021: Patient had follow-up with medical oncology. Due to declining performance status and risk for continuation of chemotherapy it was recommended to stop chemotherapy and plan was made to proceed with radiation therapy to the laminectomy bed. 05/04/2021: Patient was evaluated by radiation collagen [facility]. Due to inability to proceed with adjuvant chemotherapy due to frailness plan was made to complete postoperative radiation therapy to the resection area consisting of 3600 cGy in 18 fractions. From 05/17/2021 ? 06/12/2021: received 3600 cGy in 18 fractions to the T4-T7 area including paraspinal region manipulated at the time of surgery. 09/12/2021: PET scan was completed and showed no evidence of disease. There is evidence of lung airspace disease consistent with activated leukocytosis from inflammatory process and also evidence for activated leukocytosis in the right posterior hemipelvis associated likely with an inflammatory process. Radiation Treatment History:1) From 05/17/2021 ? 06/12/2021: received 3600 cGy in 18 fractions to the T4-T7 area including paraspinal region manipulated at the time of surgery. 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 DC home today with [facility]. Medical Records Data Medical Nutrition Assessment Dietitian: Malnutrition Criteria Met Start: 10/08/21 10:35 Freq: Status: Active Protocol: Document 10/08/21 10:35 AG (Rec: 10/08/21 10:35 [id number]) Nutrition Malnutrition Evidence of Malnutrition Exists Yes Malnutrition (severe): Chronic Evidenced By Suboptimal Energy Intake ( Severe),Weight Loss (Severe) Clinical Problem Chronic Disease or Condition Related Malnutrition Etiology severe, chronic malnutrition r /t inadequate energy intake w/ increased energy needs d/t lymphoma, wounds Signs/Symptoms as evidenced by unintentional wt loss of 45.2#/25% wt loss x 5 month, estimated PO intake meeting <75% of estimated nutritional needs >3 months Status Active Problem Recommendation Dietitian Recommendations/Changes liberalize diet to regular w/ 4oz ensure enlive w/ meals ( strawberry) d/t malnutrition Weight / BMI Weight Weight: 60.441 kg Body Mass Index (BMI) 22.1 ABG / Lab / Microbiology Data Result Diagrams: 10/10/21 06:30 10/10/21 06:30 Microbiology: Microbiology 10/07/21 18:50 Ulcer, Decubitus - Buttock Gram Stain - Final 10/07/21 18:50 Ulcer, Decubitus - Buttock Wound Culture - Final Klebsiella oxytoca Staphylococcus haemolyticus Corynebacterium striatum 10/07/21 18:50 Ulcer, Decubitus - Buttock Anaerobic Culture - Final No anaerobic bacteria isolated. 10/07/21 11:00 Blood Culture (Wb) - Anticubital Left Bacteria Detection (PCR) - Final Staphylococcus epidermidis 10/07/21 11:00 Blood Culture (Wb) - Anticubital Left Blood Culture - Preliminary Staphylococcus epidermidis 10/07/21 11:25 Urine, Catheterized Urine Culture - Final Presumptive C albicans 10/07/21 11:00 Blood Culture (Wb) - Anticubital Left Blood Culture - Preliminary No growth in 48 hours. Radiography Diagnostic Testing: Radiology Impression Brain MRI 10/11/21 10:00 IMPRESSION: 8 mm left IAC lesion. Differential considerations include vestibular schwannoma (acoustic neuroma), meningioma and metastatic disease. Electronically Signed: Vira Moise MD at 13:48 EST Tel , Service support , D/C Instructions Discharge Diet: No restrictions Additional Activity Instructions: up with assistance Call your doctor if your incision/area has: Continuous Slow Oozing, Sudden Increased Bleeding and Increased Pain/ Swelling Call your doctor if you observe: Fever of 101 or Higher Meaningful Use Info Meaningful Use Diagnoses (Choose all that apply): None applicable Discharge Plan Admission Admit Date/Time: 10/07/21 15:50 Primary Reason for Your Visit: confusion Attending Provider: Jose Garcia Primary Care Provider: Modesto Fulton Consulting Providers: Dieudonne Peña Discharge Orders/Prescriptions Prescriptions: Continued multivitamin Tablet 1 tab PO DAILY RF: 0 acetaminophen 500 mg Tablet 1,000 mg PO Q6H PRN PRN (Reason: Pain Score 1-10) Qty: 0 RF: 0 atorvastatin 40 mg tablet 40 mg PO DAILY 30 Days Qty: 30 RF: 0 metoprolol succinate 50 mg tablet extended release 24 hr 50 mg PO Q6H 30 Days Qty: 120 RF: 0 Eliquis 5 mg tablet 5 mg PO BID 30 Days Qty: 60 RF: 0 amiodarone 200 mg tablet 400 mg PO DAILY@0800 RF: 0 losartan 100 mg tablet 100 mg PO DAILY RF: 0 metoclopramide HCl 10 mg Tablet 10 mg PO TID RF: 0 Discontinued baclofen 5 mg Tablet 10 mg PO TID RF: 0 amoxicillin-pot clavulanate [Augmentin] 875-125 mg tablet 1 tab PO Q12H RF: 0 doxycycline monohydrate 100 mg tablet 100 mg PO BID RF: 0 gabapentin 100 mg Tablet 100 mg PO DAILY RF: 0 Referrals / Follow Up: Robin Davenport MD [NON-STAFF] - Within 2 Weeks Jake Johnson MD [STAFF PHYSICIAN] - Within 1 Month (neurology) Modesto Fulton MD [Primary Care Provider] - Within 2 Weeks Aric Polo DO [NON-STAFF] - Within 2 Weeks Lev Stokes MD [NON-STAFF] - Within 1 Month (neurology) Disposition Disposition (needs filled in before D/C Order can be placed): Home Health Service Charges/Coding Visit Charges Inpatient E&M: 57914 Disch Hosp
--- NOTE | 2021-10-12 11:24 | CASEMGMT ---
Pt ready for dc, TC to Giovana at [facility] to make aware of dc. She states they do not have a nurse to change vac tomorrow and are requesting vac to be changed today. Notified Amanda August who is agreeable to this. Giovana states she will obtain orders from wound center. Faxed referral at this time.
--- NOTE | 2021-10-12 13:27 | WOUNDNOTE ---
Talked with Lc who states that patient's mother had Alzheimer's and he is worried that may be part of her confusion and forgetfulness. stated they are still trying to figure out the cause of the confusion at this time. states she has been confused off and on, and has just recently gotten worse.
[2021-10-12 13:34] VITALS: BP 103/71; PULSE 80; RESP 16; TEMP 36.4; O2SAT 98
== END 2021-10-12 14:15 | disposition home health service (06) | DRG 70 ==
LOC: ED 12:44 → MS3 16:15
PROVIDERS: Admitting Provider Student in an Organized Health Care Education/Training Program; Emergency Provider Emergency Medicine; PCP Family Medicine
DX: G93.41 Metabolic encephalopathy (principal); L89.324 Pressure ulcer of left buttock, stage 4; L89.154 Pressure ulcer of sacral region, stage 4; E43 Unspecified severe protein-calorie malnutrition; C83.30 Diffuse large B-cell lymphoma, unspecified site; L08.9 Local infection of the skin and subcutaneous tissue, unspecified; G82.20 Paraplegia, unspecified; I48.91 Unspecified atrial fibrillation; I25.10 Atherosclerotic heart disease of native coronary artery without angina pectoris; I10 Essential (primary) hypertension; B95.7 Other staphylococcus as the cause of diseases classified elsewhere; E78.5 Hyperlipidemia, unspecified; Z93.3 Colostomy status; Z79.01 Long term (current) use of anticoagulants; I25.2 Old myocardial infarction; Z79.899 Other long term (current) drug therapy; Z68.22 Body mass index [BMI] 22.0-22.9, adult
CPT/HCPCS: 36415; 70496; 70498; 70553; 71045; 80048; 80053; 80202; 81001; 83605; 85025; 87040; 87070; 87075; 87077; 87086; 87088; 87149; 87186; 87205; 93005; 95819; 97162; 97166; 97802; 97803; 99284; A9575; J7030; J7040; J7050; Q9967; A4216

== ENCOUNTER 2021-11-20 14:15 | Outpatient (RCR) | payer OTHER, SELFPAY ==
[2021-10-21 00:32] VITALS: BP 164/71; PULSE 70; RESP 20; TEMP 36.1; BMI 25.9
[2021-10-30 14:11] VITALS: BP 110/47; PULSE 76; TEMP 35.7; BMI 25.9
--- NOTE | 2021-10-30 14:42 | PCM.WC.PN ---
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 She had progressive paraplegia. She went to TCU for acute rehab for this progressive paraplegia. During that time she had worsening sacral pressure sore with skin necrosis. Surgery 05/15/21 - Excision necrotic sacral pressure sore, Stage IV, with partial ostectomy for osteomyelitis. Pathology from surgery on 05/15/21 of bone showed acute osteomyelitis. Operative tissue culture positive for Escherichia coli, Klebsiella, Vanc. Resist. E. gallinarum, Vanc. Resist. E. faecalis. Operative bone culture positive for Escherichia coli, Vanc. Resist. E. faecalis, Vanc. Resist. E. gallinarum. She was on Meropenem, Vancomycin has been stopped and Linezolid started. ID is managing. Radiation from 05/17/21 - 06/12/21 18 treatments to T4-T7 area including paraspinal region. 06/06/21- Laparoscopic sigmoid colectomy with creation of end colostomy for fecal diversion. Was in TCU 06/08/21-07/20/21. Wound Care - Discontinued Wound VAC due to not getting good compression. Will start Dakin's moistened gauze covered with ABD daily. In the tunnel area in the sacrum place silver rope in the tunnel. Left ischial ulcer place aquacel-ag daily. Place A&D ointment or aquaphore to moisturize and act as a skin barrier. Progress of Wound: Sacral ulcer is beefy pink, with minimal bone exposure with a tunnel. Left ischial ulcer is subcutaneous. Periwound is excoriated. Objective Data Objective Data Vital Signs: Vital Signs Temp Pulse Resp BP 96.3 F L 76 20 H 110/47 L 10/30/21 14:11 10/30/21 14:11 10/21/21 00:32 10/30/21 14:11 Weight: 155 lb 11.464 oz Body Mass Index (BMI) 25.9 Charges/Coding Procedures Integumentary 111xxx-113xx: 77736 Casie musc/fascia 20 sq cm/< (sacral ulcer) Add On Codes: 76895 Casie musc/fascia add-on (x2) Multi Select Codes Addendum Addendum: [id number] left ischial ulcer is subcutaneous ulcer Debridement Note Debridement Note Post-Debridement Measurements and Additional Note: Post-Debridement Measurements/Treatment - Nurse 1 - General Ulcer Assessment Start: 10/30/21 14:10 Freq: Status: Active Protocol: KRANTHI Activity Type Activity Date Activity User E-Sign Co-Sign Detail Recorded Client Recorded Date Recorded By Document 10/30/21 14:11 ALAN [id number] 10/30/21 14:16 TN 10/30/21 14:11 - Today's Visit Information Arrival Mode Wheelchair Transfer Assistance Will Lift Transfer Assist (Other) 3 person Patient Identification Verified (Name & Yes ) Patient Requires Transmission-Based No Precautions Safety Precautions NA Height and Weight Body Mass Index (BMI) 25.9 BMI Classification Overweight Vital Signs Temperature (97.8 F-99.1 F) 96.3 F L Temperature Source Temporal Pulse Rate (60-100) 76 Pulse Location Monitor Blood Pressure (90/60-120/80) 110/47 L Blood Pressure Mean (mm Hg) 68 Source Monitor History Since Last Visit- (Skip if this is Patient's initial visit) Have you changed medications since your No last visit? Any new allergies or adverse reactions No Had a fall/change in ADL's that may No increase risk of falls Signs or symptoms of abuse and/or No neglect since last visit Have you been in the hospital since your No last visit? Has dressing in place as prescribed Yes Has compression in place as prescribed N/A Has offloadiing in place as prescribed Yes Experienced any changes in pain level or No management Left Footwear Slipper Right Footwear Slipper - Nurse 1 - General Ulcer Measurement Start: 10/30/21 14:10 Freq: Status: Active Protocol: Activity Type Activity Date Activity User E-Sign Co-Sign Detail Recorded Client Recorded Date Recorded By Document 10/30/21 14:11 ALAN [id number] 10/30/21 14:16 TN 10/30/21 14:11 Wound Center Nurse 1 #2 L Ischial -Combined with other wound No -Current Size (cm) - Length 0.8 -Current Size (cm) - Width 2.2 -Current Size (cm) - Depth 0.4 -Total Square Cm 1.76 -Photo Taken No -Epithelialization None Present -Tunneling No -Undermining/Tunneling No -Circular Undermining No -Exudate Amt Medium -Exudate Type Serosanguineous -Wound Margin Distinct, Outline Attached -Granulation Amt Small (1-33%) -Granulation Quality [place],Red -Slough/Fibrin Yes -Necrosis Amt Small (1-33%) -Necrotic Tissue Type Adherent Slough -Structure Exposed N/A -Texture (Laney-wound Skin Appearance) No Abnormality, Assessed -Moisture (Laney-wound Skin Appearance) No Abnormality, Assessed -Color (Laney-wound Skin Appearance) Assessed,Rubor -Temperature (Laney-wound Skin No Abnormality Appearance) (Pt Warm) -Tenderness on Palpation (Laney-wound No Skin Appearance) -Ulcer Cleansing Soap and Water -Foul Odor after Cleansing No -Anesthetic Used 4% Lidocaine Solution,5% Lidocaine Gel #1 Sacral -Combined with other wound No -Current Size (cm) - Length 5.6 -Current Size (cm) - Width 7 -Current Size (cm) - Depth 1.5 -Total Square Cm 39.2 -Photo Taken No -Tunneling Yes -Tunneling Position (O'clock) 4 -Tunneling Distance (cm) 5.1 -Tunneling Position #2 (O'clock) 5 -Undermining/Tunneling Yes -Undermining/Tunneling Starts (O'clock 8 ) -Undermining/Tunneling Ends (O'clock) 11 -Maximum Distance (cm) 4 -Circular Undermining No -Exudate Amt Medium -Exudate Type Serosanguineous -Wound Margin Distinct, Outline Attached -Granulation Amt Medium (34-66%) -Granulation Quality [place],Red -Slough/Fibrin No -Necrosis Amt None Present (0 %) -Structure Exposed N/A -Texture (Laney-wound Skin Appearance) No Abnormality, Assessed -Moisture (Laney-wound Skin Appearance) No Abnormality, Assessed -Color (Laney-wound Skin Appearance) Assessed, Erythema -Temperature (Laney-wound Skin No Abnormality Appearance) (Pt Warm) -Tenderness on Palpation (Laney-wound No Skin Appearance) -Ulcer Cleansing Soap and Water -Foul Odor after Cleansing No -Anesthetic Used 4% Lidocaine Solution,5% Lidocaine Gel WC - Nurse 2 - General Ulcer CM Notes Start: 10/30/21 14:10 Freq: Status: Active Protocol: Activity Type Activity Date Activity User E-Sign Co-Sign Detail Recorded Client Recorded Date Recorded By Document 10/30/21 14:24 NIDHI [id number] 10/30/21 14:36 NIDHI 10/30/21 14:24 Wound Center Nurse 2 #2 L Ischial -Time 14:24 -Correct Patient Yes -Correct Side, Site, Position Yes -Correct Procedure Yes -Procedure Performed Yes -Type of Procedure Debridement -Clinical Debridement Subcutaneous -Tissue Removed Subcutaneous -Post Debridement (cm) - Length 2.5 -Post Debridement (cm) - Width 1.4 -Post Debridement (cm) - Depth 0.8 -Total Square (Post) (cm) 3.50 -Area of Debridement (cm) - Length 2.5 -Area of Debridement (cm) - Width 1.4 -Total Square (Area) (cm) 3.50 -Tunneling No -Undermining/Tunneling No -Circular Undermining No -Wound/Ulcer Outcome Not Healed -Ulcer Cleansing Rinsed/ Irrigated with Saline -Foul Odor after Cleansing No -Bioengineered Tissue No -Bleeding Controlled with Pressure -Offloading No -Treatment Response Procedure Tolerated Well -Debridement - Subq, 1st 20sq cm Yes #1 Sacral -Time 14:24 -Correct Patient Yes -Correct Side, Site, Position Yes -Correct Procedure Yes -Procedure Performed Yes -Type of Procedure Debridement -Clinical Debridement Muscle / Fascia -Tissue Removed Muscle -Post Debridement (cm) - Length 5.7 -Post Debridement (cm) - Width 8 -Post Debridement (cm) - Depth 1.6 -Total Square (Post) (cm) 45.6 -Area of Debridement (cm) - Length 5.7 -Area of Debridement (cm) - Width 8 -Total Square (Area) (cm) 45.6 -Tunneling Yes -Tunneling Position (O'clock) 5 -Tunneling Distance (cm) 5.5 -Undermining/Tunneling No -Circular Undermining No -Wound/Ulcer Outcome Not Healed -Ulcer Cleansing Rinsed/ Irrigated with Saline -Foul Odor after Cleansing No -Bioengineered Tissue No -Bleeding Controlled with Pressure -Offloading No -Treatment Response Procedure Tolerated Well -Debridement - Muscle / Fascia, 1st Yes 20sq cm -Debridement, Muscle/Fascia, ea addt'l 2 20sq cm or part thereof Pain Scale: 0-10 Numeric Is Patient Pain Free? Yes Assessment/Plan Assessment/Plan (1) Pressure ulcer of sacral region, stage 4: CODE(S): L89.154 - Pressure ulcer of sacral region, stage 4 (2) Decubitus ulcer of left ischium, stage 4: CODE(S): L89.324 - Pressure ulcer of left buttock, stage 4 (3) Osteomyelitis of pelvis: CODE(S): M86.9 - Osteomyelitis, unspecified (4) Paraplegia: CODE(S): G82.20 - Paraplegia, unspecified PLAN: Wound Care - Discontinued Wound VAC due to not getting good compression. Will start Dakin's moistened gauze covered with ABD daily. In the tunnel area in the sacrum place silver rope in the tunnel. Left ischial ulcer place aquacel-ag daily. Place A&D ointment or aquaphore to moisturize and act as a skin barrier. Wound culture 10/07/21 while in the hospital positive for Klebsiella oxytoca, Staphylococcus haemolyticus, and Corynebacterium striatum. Treated with Zosyn and Vanc while hospitalized. Now on Augmentin. Wound culture from 09/12/21 was positive for Staphylococcus haemolyticus and Enterococcus faecalis. Will start her on Augmentin and Doxycycline and a probiotic. Instructed them how to take her antibiotics and that the Doxycycline can not be taken at the same time as calcium, iron or a multivitamin. Encourage increased protein intake to help with wound healing. Follow up 2 weeks. Call or come in sooner if have any questions or concerns.
--- NOTE | 2021-11-08 12:08 | WC ---
NURSE HOOKS CALLED. STATES PT'S INDERJIT WOUND IS LOOKING FUNGAL, REQUESTING TOPICAL CR OR DIFLUCAN. SARITHA BERG NOTIFIED. WILL CALL IN TOPICAL CR. PT CAN'T TAKE DIFLUCAN D/T POSSIBLE INTERACTION W/ AMIODARONE. NURSE HOOKS UPDATED, AND WILL ALSO NOTIFY FAMILY
[2021-11-20 14:15] VITALS: BP 130/75; PULSE 64; TEMP 37.2; BMI 25.9
--- NOTE | 2021-11-20 17:33 | PN.PCM_ITS ---
History of Present Illness Date of Service: 11/20/21 Chief Complaint: Sacral ulcer History of Wound: CHRISTOPHER CORONEL, is a 76 Female with history of diffuse large B- cell lymphoma,who had emergency evacuation, biopsy of epidural mass causing T4- T7 spinal cord compression. She had progressive paraplegia. She went to TCU for acute rehab for this progressive paraplegia. During that time she had worsening sacral pressure sore with skin necrosis. Surgery 05/15/21 - Excision necrotic sacral pressure sore, Stage IV, with partial ostectomy for osteomyelitis. Pathology from surgery on 05/15/21 of bone showed acute osteomyelitis. Operative tissue culture positive for Escherichia coli, Klebsiella, Vanc. Resist. E. gallinarum, Vanc. Resist. E. faecalis. Operative bone culture positive for Escherichia coli, Vanc. Resist. E. faecalis, Vanc. Resist. E. gallinarum. She was on Meropenem, Vancomycin has been stopped and Linezolid started. ID is managing. Radiation from 05/17/21 - 06/12/21 18 treatments to T4-T7 area including paraspinal region. 06/06/21- Laparoscopic sigmoid colectomy with creation of end colostomy for fecal diversion. Was in TCU 06/08/21-07/20/21. Wound Care - Dakin's moistened gauze covered with ABD daily. In the tunnel area at 5 o'clock in the sacrum place silver rope in the tunnel. Left ischial ulcer place aquacel-ag daily. Place A&D ointment or aquaphore to moisturize and act as a skin barrier. Progress of Wound: Sacral ulcer is beefy pink, with no bone exposure with a tunnel at 5 o'clock. Left ischial ulcer is subcutaneous. Periwound is much improved. Objective Data Objective Data Vital Signs: Vital Signs Temp Pulse Resp BP 98.9 F 64 20 H 130/75 H 11/20/21 14:15 11/20/21 14:15 10/21/21 00:32 11/20/21 14:15 Weight: 155 lb 11.464 oz Body Mass Index (BMI) 25.9 Charges/Coding Procedures Integumentary 111xxx-113xx: 55813 Casie subq tissue 20 sq cm/< Add On Codes: [id number] Casie subq tissue add-on (x2) Physical Exam Const alert General Appearance: cooperative HEENT normocephalic Resp normal respiratory effort Cardio regular rate GI Palpation: soft Extremity normal capillary refill Skin Wound Narrative: Sacral ulcer bone is now covered. There is a tunnel at 5 o'clock. It is beefy pink. The left ischial ulcer is beefy pink and has less depth. Neuro CN's II-XII intact bilaterally Psych Appearance: grossly normal Debridement Note Debridement Note Wound debrided: Sacral ulcer Laterality: Not Applicable Wound Grade/Stage: Stage IV Type of Debridement: Excisional debridement Anesthesia Used: 4% Lidocaine Solution Depth: Down to and including healthy tissue and in the subcutaneous layer Percentage of wound debrided: 100 Instrument Used: 5mm curette Tissue Removed: Subcutaneous tissue and slough Severity: Fat Layer Exposed Amount of bleeding with debridement: Mild Bleeding Controlled with: Pressure and Compression and gauze Patient tolerated procedure: Patient tolerated procedure well Post-Debridement Measurements and Additional Note: Post-Debridement Measurements/Treatment NICOLAS - Nurse 1 - General Ulcer Assessment Start: 10/30/21 14:10 Freq: Status: Active Protocol: KRANTHI Activity Type Activity Date Activity User E-Sign Co-Sign Detail Recorded Client Recorded Date Recorded By Document 10/30/21 14:11 MS [id number] 10/30/21 14:16 MS Document 11/20/21 14:15 MS [id number] 11/20/21 14:20 MS 10/30/21 11/20/21 14:11 14:15 - Today's Visit Information Type of service Follow-up Visit (Physician/MANAGER CREDIT COLLECTIONS ) Arrival Mode Wheelchair Wheelchair Transfer Assistance Will Lift Will Lift Transfer Assist (Other) 3 person Patient Identification Verified (Name & Yes Yes ) Patient Requires Transmission-Based No No Precautions Safety Precautions NA NA Height and Weight Body Mass Index (BMI) 25.9 25.9 BMI Classification Overweight Overweight Vital Signs Temperature (97.8 F-99.1 F) 96.3 F L 98.9 F Temperature Source Temporal Temporal Pulse Rate (60-100) 76 64 Pulse Location Monitor Monitor Blood Pressure (90/60-120/80) 110/47 L 130/75 H Blood Pressure Mean (mm Hg) 68 93 Source Monitor History Since Last Visit- (Skip if this is Patient's initial visit) Have you changed medications since your No No last visit? Any new allergies or adverse reactions No No Had a fall/change in ADL's that may No No increase risk of falls Signs or symptoms of abuse and/or No No neglect since last visit Have you been in the hospital since your No No last visit? Has dressing in place as prescribed Yes Yes Has compression in place as prescribed N/A N/A Has offloadiing in place as prescribed Yes N/A Experienced any changes in pain level or No management Left Footwear Slipper Slipper Right Footwear Slipper Slipper Pain Scale: 0-10 Numeric Is Patient Pain Free? Yes WC - Nurse 1 - General Ulcer Measurement Start: 10/30/21 14:10 Freq: Status: Active Protocol: Activity Type Activity Date Activity User E-Sign Co-Sign Detail Recorded Client Recorded Date Recorded By Document 10/30/21 14:11 MS [id number] 10/30/21 14:16 MS Document 11/20/21 14:15 MS [id number] 11/20/21 14:20 AK 10/30/21 11/20/21 14:11 14:15 Wound Center Nurse 1 #2 L Ischial -Combined with other wound No No -Current Size (cm) - Length 0.8 1.1 -Current Size (cm) - Width 2.2 0.6 -Current Size (cm) - Depth 0.4 0.3 -Total Square Cm 1.76 0.66 -Photo Taken No Yes -Epithelialization None Present Small 1-33% -Tunneling No No -Undermining/Tunneling No No -Circular Undermining No No -Classification - Thickness Partial Thickness -Exudate Amt Medium Small -Exudate Type Serosanguineous Serosanguineous -Wound Margin Distinct, Distinct, Outline Outline Attached Attached -Granulation Amt Small (1-33%) Small (1-33%) -Granulation Quality [place],Red [place] -Slough/Fibrin Yes Yes -Necrosis Amt Small (1-33%) Small (1-33%) -Necrotic Tissue Type Adherent Slough Adherent Slough -Structure Exposed N/A N/A -Texture (Laney-wound Skin Appearance) No Abnormality, No Abnormality, Assessed Assessed -Moisture (Laney-wound Skin Appearance) No Abnormality, No Abnormality, Assessed Assessed -Color (Laney-wound Skin Appearance) Assessed,Rubor -Temperature (Laney-wound Skin No Abnormality No Abnormality Appearance) (Pt Warm) (Pt Warm) -Tenderness on Palpation (Laney-wound No No Skin Appearance) -Ulcer Cleansing Soap and Water Soap and Water -Foul Odor after Cleansing No No -Anesthetic Used 4% Lidocaine 4% Lidocaine Solution,5% Solution Lidocaine Gel #1 Sacral -Combined with other wound No No -Current Size (cm) - Length 5.6 5.1 -Current Size (cm) - Width 7 7.5 -Current Size (cm) - Depth 1.5 0.6 -Total Square Cm 39.2 38.25 -Photo Taken No No -Tunneling Yes No -Tunneling Position (O'clock) 4 -Tunneling Distance (cm) 5.1 -Tunneling Position #2 (O'clock) 5 -Undermining/Tunneling Yes Yes -Undermining/Tunneling Starts (O'clock 8 8 ) -Undermining/Tunneling Ends (O'clock) 11 11 -Maximum Distance (cm) 4 0.5 -Circular Undermining No No -Change in Wound Grade/Stage No -Exudate Amt Medium Small -Exudate Type Serosanguineous Serosanguineous -Wound Margin Distinct, Distinct, Outline Outline Attached Attached -Granulation Amt Medium (34-66%) Medium (34-66%) -Granulation Quality [place] -Slough/Fibrin No Yes -Necrosis Amt None Present (0 Medium (34-66%) %) -Necrotic Tissue Type Adherent Slough -Structure Exposed N/A N/A -Texture (Laney-wound Skin Appearance) No Abnormality, No Abnormality, Assessed Assessed -Moisture (Laney-wound Skin Appearance) No Abnormality, No Abnormality, Assessed Assessed -Color (Laney-wound Skin Appearance) Assessed, No Abnormality, Erythema Assessed -Temperature (Laney-wound Skin No Abnormality Appearance) (Pt Warm) -Tenderness on Palpation (Laney-wound No No Skin Appearance) -Ulcer Cleansing Soap and Water Soap and Water -Foul Odor after Cleansing No No -Anesthetic Used 4% Lidocaine 4% Lidocaine Solution,5% Solution Lidocaine Gel WC - Nurse 2 - General Ulcer CM Notes Start: 10/30/21 14:10 Freq: Status: Active Protocol: Activity Type Activity Date Activity User E-Sign Co-Sign Detail Recorded Client Recorded Date Recorded By Document 10/30/21 14:24 [id number] 10/30/21 14:36 Document 11/20/21 14:36 [id number] 11/20/21 14:39 10/30/21 11/20/21 14:24 14:36 Wound Center Nurse 2 #2 L Ischial -Time 14:24 14:36 -Correct Patient Yes Yes -Correct Side, Site, Position Yes Yes -Correct Procedure Yes Yes -Procedure Performed Yes Yes -Type of Procedure Debridement Debridement -Clinical Debridement Subcutaneous Subcutaneous -Tissue Removed Subcutaneous Subcutaneous -Post Debridement (cm) - Length 2.5 1.0 -Post Debridement (cm) - Width 1.4 1.2 -Post Debridement (cm) - Depth 0.8 0.2 -Total Square (Post) (cm) 3.50 1.20 -Area of Debridement (cm) - Length 2.5 1.0 -Area of Debridement (cm) - Width 1.4 1.2 -Total Square (Area) (cm) 3.50 1.20 -Tunneling No No -Undermining/Tunneling No No -Circular Undermining No No -Wound/Ulcer Outcome Not Healed Not Healed -Ulcer Cleansing Rinsed/ Rinsed/ Irrigated with Irrigated with Saline Saline -Foul Odor after Cleansing No No -Bioengineered Tissue No No -Bleeding Controlled with Pressure Pressure -Offloading No No -Treatment Response Procedure Procedure Tolerated Well Tolerated Well -Debridement - Subq, 1st 20sq cm Yes No #1 Sacral -Time 14:24 14:37 -Correct Patient Yes Yes -Correct Side, Site, Position Yes Yes -Correct Procedure Yes Yes -Procedure Performed Yes Yes -Type of Procedure Debridement Debridement -Clinical Debridement Muscle / Fascia Subcutaneous -Tissue Removed Muscle Subcutaneous -Post Debridement (cm) - Length 5.7 5.7 -Post Debridement (cm) - Width 8 8 -Post Debridement (cm) - Depth 1.6 0.5 -Total Square (Post) (cm) 45.6 45.6 -Area of Debridement (cm) - Length 5.7 5.7 -Area of Debridement (cm) - Width 8 8 -Total Square (Area) (cm) 45.6 45.6 -Tunneling Yes Yes -Tunneling Position (O'clock) 5 5 -Tunneling Distance (cm) 5.5 2.4 -Undermining/Tunneling No No -Circular Undermining No No -Wound/Ulcer Outcome Not Healed Not Healed -Ulcer Cleansing Rinsed/ Rinsed/ Irrigated with Irrigated with Saline Saline -Foul Odor after Cleansing No No -Bioengineered Tissue No No -Bleeding Controlled with Pressure Pressure -Offloading No No -Treatment Response Procedure Procedure Tolerated Well Tolerated Well -Debridement - Subq, 1st 20sq cm Yes -Debridement, SubQ, ea addt'l 20sq cm 2 or part thereof -Debridement - Muscle / Fascia, 1st Yes 20sq cm -Debridement, Muscle/Fascia, ea addt'l 2 20sq cm or part thereof Pain Scale: 0-10 Numeric Is Patient Pain Free? Yes Yes WC - Nurse 3 - General Ulcer D/C NN Start: 10/30/21 14:10 Freq: Status: Active Protocol: Activity Type Activity Date Activity User E-Sign Co-Sign Detail Recorded Client Recorded Date Recorded By Document 10/30/21 14:44 JF [id number] 10/30/21 14:45 JF Document 11/20/21 15:12 AK [id number] 11/20/21 15:15 AK Edit Result 11/20/21 15:12 AK (1) [id number] 11/20/21 15:20 BMF (1) #2 L Ischial - Primary Dressing Applied Aquacel AG 4x4 => Aquacel AG 4x4, => Mepilex Border - Mepilex Border => 1 10/30/21 11/20/21 14:44 15:12 Wound Care Nurse 3 #2 L Ischial -Ulcer Cleansing Rinsed/ Rinsed/ Irrigated with Irrigated with Saline Saline -Foul Odor after Cleansing No No -Negative Pressure Wound Therapy N/A -Primary Dressing Applied Aquacel AG 4x4 Aquacel AG 4x4, Mepilex Border -Other Dressing ABD -Primary Dressing Covered/Secured with Dry Gauze, Secured with Secured with Tape Tape -Other Covering ABD pad -Aquacel AG 4x4 2 1 -Mepilex Border 1 #1 Sacral -Ulcer Cleansing Rinsed/ Rinsed/ Irrigated with Irrigated with Saline Saline -Foul Odor after Cleansing No No -Negative Pressure Wound Therapy N/A -Primary Dressing Applied Aquacel AG 4x4 -Other Dressing Wet to dry aquacel in tunnel at 5 -Primary Dressing Covered/Secured with Dry Gauze, Secured with Secured with Tape Tape -Other Covering ABD pad -Aquacel AG 4x4 0 0 Pain Scale: 0-10 Numeric Is Patient Pain Free? Yes Yes WC - Visit Discharge Discharge Condition Stable Stable Ambulatory Status Wheelchair Wheelchair Transportation Private Auto Accompanied by and and daughter daughter Medication Reconcilliation completed & No Yes provided to patient/care provider Clinical Summary of Care Provided No Yes Additional Wound Wound debrided: ischial ulcer Laterality: Left Type of Debridement: Excisional debridement Anesthesia Used: 4% Lidocaine Solution Depth: Down to and including healthy tissue and in the subcutaneous layer Percentage of wound debrided: 100 Instrument Used: 3mm curette Tissue Removed: Subcutaneous tissue and slough Severity: Fat Layer Exposed Amount of bleeding with debridement: Mild Bleeding Controlled with: Pressure and Compression and gauze Patient tolerated procedure: Patient tolerated procedure well Assessment/Plan Assessment/Plan (1) Pressure ulcer of sacral region, stage 4: CODE(S): L89.154 - Pressure ulcer of sacral region, stage 4 (2) Decubitus ulcer of left ischium, stage 4: CODE(S): L89.324 - Pressure ulcer of left buttock, stage 4 (3) Osteomyelitis of pelvis: CODE(S): M86.9 - Osteomyelitis, unspecified (4) Paraplegia: CODE(S): G82.20 - Paraplegia, unspecified (5) History of radiation therapy: CODE(S): Z92.3 - Personal history of irradiation (6) Diffuse large B cell lymphoma: CODE(S): C83.30 - Diffuse large B-cell lymphoma, unspecified site QUALIFIERS: Lymphoma site: unspecified region Qualified Code(s): C83.30 - Diffuse large B-cell lymphoma, unspecified site PLAN: Wound Care - Sacral ulcer Dakin's moistened gauze covered with ABD daily, in the tunnel area in the sacrum place silver rope in the tunnel. Left ischial ulcer place aquacel-ag daily. Place skin barrier, using Calmoseptine cream. Wound culture 10/07/21 while in the hospital positive for Klebsiella oxytoca, Staphylococcus haemolyticus, and Corynebacterium striatum. Treated with Zosyn and Vanc while hospitalized. Completed Augmentin. Wound culture from 09/12/21 was positive for Staphylococcus haemolyticus and Enterococcus faecalis. Completed Augmentin and Doxycycline and a probiotic. Encourage increased protein intake to help with wound healing. Follow up 2 weeks. Call or come in sooner if have any questions or concerns.
== END 2021-11-20 23:59 ==
LOC: WC 14:15
PROVIDERS: PCP Family Medicine; Visit Provider Nurse Practitioner Family
DX: L89.154 Pressure ulcer of sacral region, stage 4 (principal); L89.324 Pressure ulcer of left buttock, stage 4; L89.224 Pressure ulcer of left hip, stage 4; G82.20 Paraplegia, unspecified; C83.30 Diffuse large B-cell lymphoma, unspecified site; M86.9 Osteomyelitis, unspecified
CPT/HCPCS: 11042; 11043; 11045; 11046

== ENCOUNTER 2021-12-18 11:30 | Outpatient (RCR) | payer OTHER, SELFPAY ==
[2021-11-21 00:39] VITALS: BP 130/75; PULSE 64; RESP 20; TEMP 37.2; BMI 25.9
[2021-12-04 13:26] VITALS: BP 143/64; PULSE 68; RESP 16; TEMP 36.6; BMI 25.9
--- NOTE | 2021-12-04 15:09 | PN.PCM_ITS ---
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 She had progressive paraplegia. She went to TCU for acute rehab for this progressive paraplegia. During that time she had worsening sacral pressure sore with skin necrosis. Surgery 05/15/21 - Excision necrotic sacral pressure sore, Stage IV, with partial ostectomy for osteomyelitis. Pathology from surgery on 05/15/21 of bone showed acute osteomyelitis. Operative tissue culture positive for Escherichia coli, Klebsiella, Vanc. Resist. E. gallinarum, Vanc. Resist. E. faecalis. Operative bone culture positive for Escherichia coli, Vanc. Resist. E. faecalis, Vanc. Resist. E. gallinarum. She was on Meropenem, Vancomycin has been stopped and Linezolid started. ID is managing. Radiation from 05/17/21 - 06/12/21 18 treatments to T4-T7 area including paraspinal region. 06/06/21- Laparoscopic sigmoid colectomy with creation of end colostomy for fecal diversion. Was in TCU 06/08/21-07/20/21. Wound Care - Sacral ulcer Aquacel- Ag packed into the tunnel and place aquacel- ag onto the rest of the ulcer, topped with gauze or ABD. On left ischial ulcer collagen hydrogel covered with adaptic and topped with gauze daily or every other day. Place A&D ointment or aquaphore to moisturize and act as a skin barrier. She denies any nausea and vomiting. She states that her appetite is improving and she is drinking extra protein shakes. Progress of Wound: Left ischial ulcer is almost healed. Sacral ulcer has significantly decreased in depth. It is a nice beefy pink color and there is no longer any bone exposure. Her laney wound is clear with no excoriation. Objective Data Objective Data Vital Signs: Vital Signs Temp Pulse Resp BP 97.8 F 68 16 143/64 H 12/04/21 13:26 12/04/21 13:26 12/04/21 13:26 12/04/21 13:26 Oxygen Delivery Method Room Air Weight: 155 lb 11.464 oz Body Mass Index (BMI) 25.9 Charges/Coding Procedures Integumentary 111xxx-113xx: 09362 Casie subq tissue 20 sq cm/< Add On Codes: 03126 Casie subq tissue add-on Physical Exam Const alert and oriented x3 General Appearance: cooperative HEENT normocephalic Head and Scalp: atraumatic Resp normal respiratory effort Cardio regular rate Extremity normal capillary refill Skin Wound Narrative: Left ischial ulcer is almost healed. Sacral ulcer has significantly decreased in depth. It is a nice beefy pink color and there is no longer any bone exposure. Her laney wound is clear with no excoriation. Neuro CN's II-XII intact bilaterally Psych Appearance: grossly normal and well kempt Debridement Note Debridement Note Wound debrided: Ischial ulcer Laterality: Left Type of Debridement: Excisional debridement Anesthesia Used: 5% Lidocaine Gel Depth: Down to and including healthy tissue and in the subcutaneous layer Percentage of wound debrided: 100 Instrument Used: 3mm curette Tissue Removed: Subcutaneous tissue and slough Severity: Limited To Skin Breakdown Amount of bleeding with debridement: Mild Bleeding Controlled with: Pressure Patient tolerated procedure: Patient tolerated procedure well Post-Debridement Measurements and Additional Note: Post-Debridement Measurements/Treatment - Nurse 1 - General Ulcer Assessment Start: 12/04/21 13:26 Freq: Status: Active Protocol: KRANTHI Activity Type Activity Date Activity User E-Sign Co-Sign Detail Recorded Client Recorded Date Recorded By Document 12/04/21 13:26 [facility] [id number] 12/04/21 13:41 [facility] 12/04/21 13:26 - Today's Visit Information Type of service Follow-up Visit (Physician/[employer]ICE [employer] ) Arrival Mode Wheelchair Transfer Assistance Will Lift Accompanied by val and Patient Identification Verified (Name & Yes ) Patient Requires Transmission-Based No Precautions Height and Weight Body Mass Index (BMI) 25.9 BMI Classification Overweight Vital Signs Temperature (97.8 F-99.1 F) 97.8 F Temperature Source Temporal Pulse Rate (60-100) 68 Pulse Location Monitor Respiratory Rate (12-18) 16 Respiratory rate source Observation Oxygen Delivery Method Room Air Blood Pressure (90/60-120/80) 143/64 H Blood Pressure Mean (mm Hg) 90 Source Monitor Position Sitting History Since Last Visit- (Skip if this is Patient's initial visit) Have you changed medications since your No last visit? Any new allergies or adverse reactions No Had a fall/change in ADL's that may No increase risk of falls Signs or symptoms of abuse and/or No neglect since last visit Have you been in the hospital since your No last visit? Has dressing in place as prescribed Yes Has compression in place as prescribed N/A Has offloadiing in place as prescribed N/A Experienced any changes in pain level or No management Left Footwear Slipper Right Footwear Slipper Pain Scale: 0-10 Numeric Is Patient Pain Free? Yes WC - Nurse 1 - General Ulcer Measurement Start: 12/04/21 13:26 Freq: Status: Active Protocol: Activity Type Activity Date Activity User E-Sign Co-Sign Detail Recorded Client Recorded Date Recorded By Document 12/04/21 13:26 [facility] [id number] 12/04/21 13:41 [facility] 12/04/21 13:26 Wound Center Nurse 1 #2 L Ischial -Combined with other wound No -Current Size (cm) - Length 0.4 -Current Size (cm) - Width 0.3 -Current Size (cm) - Depth 0.1 -Total Square Cm 0.12 -Date of Last Picture (Recall this 12/04/21 field) -Photo Taken Yes -Epithelialization Medium 34-66% -Tunneling No -Undermining/Tunneling No -Circular Undermining No -Exudate Amt Small -Exudate Type Serosanguineous -Wound Margin Distinct, Outline Attached -Granulation Amt Large (67-100%) -Granulation Quality Red -Slough/Fibrin No -Necrosis Amt None Present (0 %) -Texture (Laney-wound Skin Appearance) Assessed, Scarring -Moisture (Laney-wound Skin Appearance) Assessed -Color (Laney-wound Skin Appearance) Assessed -Temperature (Laney-wound Skin No Abnormality Appearance) (Pt Warm) -Tenderness on Palpation (Laney-wound No Skin Appearance) -Ulcer Cleansing Soap and Water -Foul Odor after Cleansing No -Anesthetic Used 4% Lidocaine Solution #1 Sacral -Combined with other wound No -Current Size (cm) - Length 5.5 -Current Size (cm) - Width 6.5 -Current Size (cm) - Depth 0.9 -Total Square Cm 35.75 -Date of Last Picture (Recall this 12/04/21 field) -Photo Taken No -Epithelialization Small 1-33% -Tunneling Yes -Tunneling Position (O'clock) 5 -Tunneling Distance (cm) 2 -Undermining/Tunneling No -Circular Undermining No -Exudate Amt Large -Exudate Type Serosanguineous -Wound Margin Distinct, Outline Attached -Granulation Amt Large (67-100%) -Granulation Quality Red -Slough/Fibrin Yes -Necrosis Amt Small (1-33%) -Necrotic Tissue Type Adherent Slough -Texture (Laney-wound Skin Appearance) Assessed, Scarring -Moisture (Laney-wound Skin Appearance) Assessed -Color (Laney-wound Skin Appearance) Assessed -Temperature (Laney-wound Skin No Abnormality Appearance) (Pt Warm) -Tenderness on Palpation (Laney-wound No Skin Appearance) -Ulcer Cleansing Soap and Water -Foul Odor after Cleansing No -Anesthetic Used 4% Lidocaine Solution WC - Nurse 2 - General Ulcer CM Notes Start: 12/04/21 13:26 Freq: Status: Active Protocol: Activity Type Activity Date Activity User E-Sign Co-Sign Detail Recorded Client Recorded Date Recorded By Document 12/04/21 13:53 [id number] 12/04/21 13:58 [facility] 12/04/21 13:53 Wound Center Nurse 2 #2 L Ischial -Time 13:54 -Correct Patient Yes -Correct Side, Site, Position Yes -Correct Procedure Yes -Procedure Performed Yes -Type of Procedure Debridement -Clinical Debridement Subcutaneous -Tissue Removed Subcutaneous -Post Debridement (cm) - Length 0.5 -Post Debridement (cm) - Width 0.5 -Post Debridement (cm) - Depth 0.1 -Total Square (Post) (cm) 0.25 -Area of Debridement (cm) - Length 0.5 -Area of Debridement (cm) - Width 0.5 -Total Square (Area) (cm) 0.25 -Tunneling No -Undermining/Tunneling No -Circular Undermining No -Wound/Ulcer Outcome Not Healed -Ulcer Cleansing Rinsed/ Irrigated with Saline -Foul Odor after Cleansing No -Bioengineered Tissue No -Bleeding Controlled with Pressure -Offloading No -Treatment Response Procedure Tolerated Well -Debridement - Subq, 1st 20sq cm No #1 Sacral -Time 13:55 -Correct Patient Yes -Correct Side, Site, Position Yes -Correct Procedure Yes -Procedure Performed Yes -Type of Procedure Debridement -Clinical Debridement Subcutaneous -Tissue Removed Subcutaneous -Post Debridement (cm) - Length 5.5 -Post Debridement (cm) - Width 7 -Post Debridement (cm) - Depth 0.7 -Total Square (Post) (cm) 38.5 -Area of Debridement (cm) - Length 5.5 -Area of Debridement (cm) - Width 7 -Total Square (Area) (cm) 38.5 -Tunneling Yes -Tunneling Position (O'clock) 5 -Tunneling Distance (cm) 0.9 -Undermining/Tunneling No -Circular Undermining No -Wound/Ulcer Outcome Not Healed -Ulcer Cleansing Rinsed/ Irrigated with Saline -Foul Odor after Cleansing No -Bioengineered Tissue No -Bleeding Controlled with Pressure -Offloading No -Treatment Response Procedure Tolerated Well -Debridement - Subq, 1st 20sq cm Yes -Debridement, SubQ, ea addt'l 20sq cm 1 or part thereof Pain Scale: 0-10 Numeric Is Patient Pain Free? Yes - Nurse 3 - General Ulcer D/C NN Start: 12/04/21 13:26 Freq: Status: Active Protocol: Activity Type Activity Date Activity User E-Sign Co-Sign Detail Recorded Client Recorded Date Recorded By Document 12/04/21 14:11 [facility] [id number] 12/04/21 14:12 [facility] 12/04/21 14:11 Wound Care Nurse 3 #2 L Ischial -Ulcer Cleansing Rinsed/ Irrigated with Saline -Foul Odor after Cleansing No -Primary Dressing Applied NonAdherent Contact Layer, Other -Other Dressing hydrogel -Primary Dressing Covered/Secured with Dry Gauze, Secured with Tape -Other Covering drsg per dl mechanical project engineer #1 Sacral -Ulcer Cleansing Rinsed/ Irrigated with Saline -Foul Odor after Cleansing No -Primary Dressing Applied Aquacel AG 4x4 -Other Dressing drsg per dl mechanical project engineer -Primary Dressing Covered/Secured with Secured with Tape,Other -Other Covering abd -Aquacel AG 4x4 1 Treatment Response Procedure Tolerated Well Pain Scale: 0-10 Numeric Is Patient Pain Free? Yes WC - Visit Discharge Discharge Condition Stable Ambulatory Status Wheelchair Transportation Private Auto Accompanied by val and Facility Type Home Health Additional Wound Wound debrided: Sacral ulcer Laterality: Not Applicable Wound Grade/Stage: Stage IV Type of Debridement: Excisional debridement Anesthesia Used: 5% Lidocaine Gel Depth: Down to and including healthy tissue and in the subcutaneous layer Percentage of wound debrided: 100 Instrument Used: 5mm curette Tissue Removed: Subcutaneous tissue and slough Severity: Fat Layer Exposed Amount of bleeding with debridement: Mild Bleeding Controlled with: Pressure and Compression and gauze Patient tolerated procedure: Patient tolerated procedure well Assessment/Plan Assessment/Plan (1) Pressure ulcer of sacral region, stage 4: CODE(S): L89.154 - Pressure ulcer of sacral region, stage 4 (2) Osteomyelitis of pelvis: CODE(S): M86.9 - Osteomyelitis, unspecified (3) Left perineal ischial pressure ulcer: CODE(S): L89.329 - Pressure ulcer of left buttock, unspecified stage (4) Paraplegia: CODE(S): G82.20 - Paraplegia, unspecified PLAN: Wound Care - Sacral ulcer Aquacel- Ag packed into the tunnel and place aquacel-ag onto the rest of the ulcer, topped with gauze or ABD. On left ischial ulcer collagen hydrogel covered with adaptic and topped with gauze daily or every other day. Place A&D ointment or aquaphore to moisturize and act as a skin barrier. Wound culture 10/07/21 while in the hospital positive for Klebsiella oxytoca, Staphylococcus haemolyticus, and Corynebacterium striatum. Treated with Zosyn and Vanc while hospitalized. Completed Augmentin. Wound culture from 09/12/21 was positive for Staphylococcus haemolyticus and Enterococcus faecalis. Completed Augmentin and Doxycycline and a probiotic. Encourage increased protein intake to help with wound healing. Follow up 2 weeks. Call or come in sooner if have any questions or concerns.
[2021-12-18 11:49] VITALS: BP 134/70; PULSE 72; RESP 17; TEMP 36.1; BMI 25.9
--- NOTE | 2021-12-18 13:46 | PN.PCM_ITS ---
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 She had progressive paraplegia. She went to TCU for acute rehab for this progressive paraplegia. During that time she had worsening sacral pressure sore with skin necrosis. Surgery 05/15/21 - Excision necrotic sacral pressure sore, Stage IV, with partial ostectomy for osteomyelitis. Pathology from surgery on 05/15/21 of bone showed acute osteomyelitis. Operative tissue culture positive for Escherichia coli, Klebsiella, Vanc. Resist. E. gallinarum, Vanc. Resist. E. faecalis. Operative bone culture positive for Escherichia coli, Vanc. Resist. E. faecalis, Vanc. Resist. E. gallinarum. She was on Meropenem, Vancomycin has been stopped and Linezolid started. ID is managing. Radiation from 05/17/21 - 06/12/21 18 treatments to T4-T7 area including paraspinal region. 06/06/21- Laparoscopic sigmoid colectomy with creation of end colostomy for fecal diversion. Was in TCU 06/08/21-07/20/21. Wound Care - Sacral ulcer Aquacel- Ag packed into the tunnel and place aquacel- ag onto the rest of the ulcer, topped with gauze or ABD. On left ischial ulcer collagen hydrogel covered with adaptic and topped with gauze daily or every other day. Place A&D ointment or aquaphore to moisturize and act as a skin barrier. She denies any nausea and vomiting. She states that her appetite is improving and she is drinking extra protein shakes. Progress of Wound: Left ischial ulcer is healed. Sacral ulcer has significantly decreased in depth. It is a nice beefy pink color and there is no longer any bone exposure. Her laney wound is clear with no excoriation. Objective Data Objective Data Vital Signs: Vital Signs Temp Pulse Resp BP 97 F L 72 17 134/70 H 12/18/21 11:49 12/18/21 11:49 12/18/21 11:49 12/18/21 11:49 Oxygen Delivery Method Room Air Weight: 155 lb 11.464 oz Body Mass Index (BMI) 25.9 Charges/Coding Procedures Integumentary 111xxx-113xx: 65713 Casie subq tissue 20 sq cm/< Add On Codes: 08716 Casie subq tissue add-on Physical Exam Const alert and oriented x3 General Appearance: cooperative HEENT normocephalic Resp normal respiratory effort Cardio regular rate Extremity normal capillary refill Skin Wound Narrative: Left ischial ulcer is healed. Sacral ulcer has significantly decreased in depth. It is a nice beefy pink color and there is no longer any bone exposure. Her laney wound is clear with no excoriation. Neuro CN's II-XII intact bilaterally Psych Appearance: well kempt Debridement Note Debridement Note Wound debrided: Sacral ulcer Wound Grade/Stage: Stage IV Type of Debridement: Excisional debridement Anesthesia Used: 5% Lidocaine Gel Depth: Down to and including healthy tissue and in the subcutaneous layer Percentage of wound debrided: 100 Instrument Used: 7mm curette Tissue Removed: Subcutaneous tissue and slough Severity: Fat Layer Exposed Amount of bleeding with debridement: Mild Bleeding Controlled with: Pressure Patient tolerated procedure: Patient tolerated procedure well Post-Debridement Measurements and Additional Note: Post-Debridement Measurements/Treatment - Nurse 1 - General Ulcer Assessment Start: 12/04/21 13:26 Freq: Status: Active Protocol: KRANTHI Activity Type Activity Date Activity User E-Sign Co-Sign Detail Recorded Client Recorded Date Recorded By Document 12/04/21 13:26 [facility] [id number] 12/04/21 13:41 [facility] Document 12/18/21 11:49 DL [id number] 12/18/21 12:02 DL 12/04/21 12/18/21 13:26 11:49 - Today's Visit Information Type of service Follow-up Visit Follow-up Visit (Physician/MANAGER RESEARCH DEVELOPMENT (Physician/MANAGER RESEARCH DEVELOPMENT ) ) Arrival Mode Wheelchair Wheelchair Transfer Assistance Will Lift Will Lift,None Accompanied by val and Patient Identification Verified (Name & Yes ) Patient Requires Transmission-Based No No Precautions Height and Weight Body Mass Index (BMI) 25.9 25.9 BMI Classification Overweight Overweight Vital Signs Temperature (97.8 F-99.1 F) 97.8 F 97 F L Temperature Source Temporal Temporal Pulse Rate (60-100) 68 72 Pulse Location Monitor Monitor Respiratory Rate (12-18) 16 17 Respiratory rate source Observation Observation Oxygen Delivery Method Room Air Blood Pressure (90/60-120/80) 143/64 H 134/70 H Blood Pressure Mean (mm Hg) 90 91 Source Monitor Monitor Position Sitting Sitting Blood Pressure Location Right Arm History Since Last Visit- (Skip if this is Patient's initial visit) Have you changed medications since your No No last visit? Any new allergies or adverse reactions No No Had a fall/change in ADL's that may No No increase risk of falls Signs or symptoms of abuse and/or No No neglect since last visit Have you been in the hospital since your No No last visit? Has dressing in place as prescribed Yes Yes Has compression in place as prescribed N/A N/A Has offloadiing in place as prescribed N/A N/A Experienced any changes in pain level or No No management Left Footwear Slipper Regular Shoe Right Footwear Slipper Regular Shoe Pain Scale: 0-10 Numeric Is Patient Pain Free? Yes Yes WC - Nurse 1 - General Ulcer Measurement Start: 12/04/21 13:26 Freq: Status: Active Protocol: Activity Type Activity Date Activity User E-Sign Co-Sign Detail Recorded Client Recorded Date Recorded By Document 12/04/21 13:26 [facility] [id number] 12/04/21 13:41 [facility] Document 12/18/21 11:49 DL [id number] 12/18/21 12:02 DL 12/04/21 12/18/21 13:26 11:49 Wound Center Nurse 1 #2 L Ischial -Combined with other wound No -Current Size (cm) - Length 0.4 0.1 -Current Size (cm) - Width 0.3 0.1 -Current Size (cm) - Depth 0.1 0.1 -Total Square Cm 0.12 0.01 -Date of Last Picture (Recall this 12/04/21 field) -Photo Taken Yes -Epithelialization Medium 34-66% -Tunneling No -Undermining/Tunneling No -Circular Undermining No -Exudate Amt Small -Exudate Type Serosanguineous -Wound Margin Distinct, Distinct, Outline Outline Attached Attached -Granulation Amt Large (67-100%) Large (67-100%) -Granulation Quality Red -Slough/Fibrin No -Necrosis Amt None Present (0 None Present (0 %) %) -Texture (Laney-wound Skin Appearance) Assessed, Scarring -Moisture (Laney-wound Skin Appearance) Assessed -Color (Laney-wound Skin Appearance) Assessed -Temperature (Laney-wound Skin No Abnormality Appearance) (Pt Warm) -Tenderness on Palpation (Laney-wound No Skin Appearance) -Ulcer Cleansing Soap and Water -Foul Odor after Cleansing No -Anesthetic Used 4% Lidocaine Solution #1 Sacral -Combined with other wound No -Current Size (cm) - Length 5.5 5 -Current Size (cm) - Width 6.5 7 -Current Size (cm) - Depth 0.9 0.7 -Total Square Cm 35.75 35 -Date of Last Picture (Recall this 12/04/21 field) -Photo Taken No -Epithelialization Small 1-33% -Tunneling Yes Yes -Tunneling Position (O'clock) 5 5 -Tunneling Distance (cm) 2 0.5 -Undermining/Tunneling No -Circular Undermining No -Exudate Amt Large Small -Exudate Type Serosanguineous Serosanguineous -Wound Margin Distinct, Distinct, Outline Outline Attached Attached -Granulation Amt Large (67-100%) Large (67-100%) -Granulation Quality Red Red -Slough/Fibrin Yes Yes -Necrosis Amt Small (1-33%) Small (1-33%) -Necrotic Tissue Type Adherent Slough Adherent Slough -Texture (Laney-wound Skin Appearance) Assessed, Assessed Scarring -Moisture (Laney-wound Skin Appearance) Assessed Assessed -Color (Laney-wound Skin Appearance) Assessed Assessed -Temperature (Laney-wound Skin No Abnormality No Abnormality Appearance) (Pt Warm) (Pt Warm) -Tenderness on Palpation (Laney-wound No No Skin Appearance) -Ulcer Cleansing Soap and Water Soap and Water -Foul Odor after Cleansing No No -Anesthetic Used 4% Lidocaine 4% Lidocaine Solution Solution WC - Nurse 2 - General Ulcer CM Notes Start: 12/04/21 13:26 Freq: Status: Active Protocol: Activity Type Activity Date Activity User E-Sign Co-Sign Detail Recorded Client Recorded Date Recorded By Document 12/04/21 13:53 [facility] [id number] 12/04/21 13:58 [facility] Document 12/18/21 12:08 NIDHI [id number] 12/18/21 12:26 JF 12/04/21 12/18/21 13:53 12:08 Wound Center Nurse 2 #2 L Ischial -Time 13:54 -Correct Patient Yes No -Correct Side, Site, Position Yes No -Correct Procedure Yes No -Procedure Performed Yes No -Type of Procedure Debridement -Clinical Debridement Subcutaneous -Tissue Removed Subcutaneous -Post Debridement (cm) - Length 0.5 0 -Post Debridement (cm) - Width 0.5 0 -Post Debridement (cm) - Depth 0.1 0 -Total Square (Post) (cm) 0.25 0 -Area of Debridement (cm) - Length 0.5 0 -Area of Debridement (cm) - Width 0.5 0 -Total Square (Area) (cm) 0.25 0 -Tunneling No -Undermining/Tunneling No -Circular Undermining No -Wound/Ulcer Outcome Not Healed Healed- Epithelialized -Ulcer Cleansing Rinsed/ Irrigated with Saline -Foul Odor after Cleansing No -Bioengineered Tissue No -Bleeding Controlled with Pressure -Offloading No -Treatment Response Procedure Tolerated Well -Debridement - Subq, 1st 20sq cm No #1 Sacral -Time 13:55 12:10 -Correct Patient Yes Yes -Correct Side, Site, Position Yes Yes -Correct Procedure Yes Yes -Procedure Performed Yes Yes -Type of Procedure Debridement Debridement -Clinical Debridement Subcutaneous Subcutaneous -Tissue Removed Subcutaneous Subcutaneous -Post Debridement (cm) - Length 5.5 5.0 -Post Debridement (cm) - Width 7 6.8 -Post Debridement (cm) - Depth 0.7 1.0 -Total Square (Post) (cm) 38.5 34.00 -Area of Debridement (cm) - Length 5.5 5.0 -Area of Debridement (cm) - Width 7 6.8 -Total Square (Area) (cm) 38.5 34.00 -Tunneling Yes No -Tunneling Position (O'clock) 5 -Tunneling Distance (cm) 0.9 -Undermining/Tunneling No No -Circular Undermining No No -Wound/Ulcer Outcome Not Healed Not Healed -Ulcer Cleansing Rinsed/ Rinsed/ Irrigated with Irrigated with Saline Saline -Foul Odor after Cleansing No No -Bioengineered Tissue No No -Bleeding Controlled with Pressure Pressure -Offloading No No -Treatment Response Procedure Procedure Tolerated Well Tolerated Well -Debridement - Subq, 1st 20sq cm Yes Yes -Debridement, SubQ, ea addt'l 20sq cm 1 1 or part thereof Pain Scale: 0-10 Numeric Is Patient Pain Free? Yes Yes - Nurse 3 - General Ulcer D/C NN Start: 12/04/21 13:26 Freq: Status: Active Protocol: Activity Type Activity Date Activity User E-Sign Co-Sign Detail Recorded Client Recorded Date Recorded By Document 12/04/21 14:11 [facility] [id number] 12/04/21 14:12 [facility] Document 12/18/21 12:26 [id number] 12/18/21 12:26 12/04/21 12/18/21 14:11 12:26 Wound Care Nurse 3 #2 L Ischial -Ulcer Cleansing Rinsed/ Irrigated with Saline -Foul Odor after Cleansing No -Primary Dressing Applied NonAdherent Contact Layer, Other -Other Dressing hydrogel -Primary Dressing Covered/Secured with Dry Gauze, Secured with Tape -Other Covering drsg per dl safety scientist #1 Sacral -Ulcer Cleansing Rinsed/ Rinsed/ Irrigated with Irrigated with Saline Saline -Foul Odor after Cleansing No -Negative Pressure Wound Therapy N/A -Primary Dressing Applied Aquacel AG 4x4 Aquacel AG 4x4 -Other Dressing drsg per dl safety scientist -Primary Dressing Covered/Secured with Secured with Dry Gauze, Tape,Other Secured with Tape -Other Covering abd -Aquacel AG 4x4 1 1 Treatment Response Procedure Tolerated Well Pain Scale: 0-10 Numeric Is Patient Pain Free? Yes Yes - Visit Discharge Discharge Condition Stable Stable Ambulatory Status Wheelchair Wheelchair Transportation Private Auto Private Auto Accompanied by val and Medication Reconcilliation completed & Yes provided to patient/care provider Clinical Summary of Care Provided Yes Facility Type Home Health Assessment/Plan Assessment/Plan (1) Pressure ulcer of sacral region, stage 4: CODE(S): L89.154 - Pressure ulcer of sacral region, stage 4 (2) Left perineal ischial pressure ulcer: CODE(S): L89.329 - Pressure ulcer of left buttock, unspecified stage (3) Osteomyelitis of pelvis: CODE(S): M86.9 - Osteomyelitis, unspecified (4) Paraplegia: CODE(S): G82.20 - Paraplegia, unspecified (5) Large B-cell lymphoma: CODE(S): C85.10 - Unspecified B-cell lymphoma, unspecified site PLAN: Wound Care - Sacral ulcer Aquacel- Ag packed into the tunnel and place aquacel-ag onto the rest of the ulcer, topped with gauze or ABD. The left ischial ulcer is healed. Will place Mepilex dressing over it until the fragile e pithelial skin toughens. Meplix can be changes every 2-[address] A&D ointment or aquaphore to moisturize and act as a skin barrier. Wound culture 10/07/21 while in the hospital positive for Klebsiella oxytoca, Staphylococcus haemolyticus, and Corynebacterium striatum. Treated with Zosyn and Vanc while hospitalized. Completed Augmentin. Wound culture from 09/12/21 was positive for Staphylococcus haemolyticus and Enterococcus faecalis. Completed Augmentin and Doxycycline and a probiotic. Encourage increased protein intake to help with wound healing. Follow up 2 weeks. Call or come in sooner if have any questions or concerns.
== END 2021-12-18 23:59 ==
LOC: WC 11:30
PROVIDERS: PCP Family Medicine; Visit Provider Nurse Practitioner Family
DX: L89.154 Pressure ulcer of sacral region, stage 4 (principal); L89.224 Pressure ulcer of left hip, stage 4; G82.20 Paraplegia, unspecified; C85.10 Unspecified B-cell lymphoma, unspecified site; L89.329 Pressure ulcer of left buttock, unspecified stage
CPT/HCPCS: 11042; 11045

== ENCOUNTER 2022-01-15 10:30 | Outpatient (RCR) | payer OTHER, SELFPAY ==
[2021-12-19 00:32] VITALS: BP 134/70; PULSE 72; RESP 17; TEMP 36.1; BMI 25.9
[2022-01-01 11:21] VITALS: BP 128/67; PULSE 65; RESP 20; TEMP 36.6; BMI 25.9
--- NOTE | 2022-01-01 12:05 | PCM.WC.PN ---
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 She had progressive paraplegia. She went to TCU for acute rehab for this progressive paraplegia. During that time she had worsening sacral pressure sore with skin necrosis. Surgery 05/15/21 - Excision necrotic sacral pressure sore, Stage IV, with partial ostectomy for osteomyelitis. Pathology from surgery on 05/15/21 of bone showed acute osteomyelitis. Operative tissue culture positive for Escherichia coli, Klebsiella, Vanc. Resist. E. gallinarum, Vanc. Resist. E. faecalis. Operative bone culture positive for Escherichia coli, Vanc. Resist. E. faecalis, Vanc. Resist. E. gallinarum. She was on Meropenem, Vancomycin has been stopped and Linezolid started. ID is managing. Radiation from 05/17/21 - 06/12/21 18 treatments to T4-T7 area including paraspinal region. 06/06/21- Laparoscopic sigmoid colectomy with creation of end colostomy for fecal diversion. Was in TCU 06/08/21-07/20/21. Wound Care - Sacral ulcer Aquacel- Ag topped with gauze or ABD daily. The left ischial ulcer is healed. Massage with lotion at least once daily. Place A&D ointment or aquaphore to laney wound to moisturize and act as a skin barrier. She denies any nausea and vomiting. She states that her appetite is improving and she is drinking extra protein shakes. Progress of Wound: Left ischial ulcer is healed. Sacral ulcer is beefy pink. There is no bone exposure, there is good granulation tissue present. Objective Data Objective Data Vital Signs: Vital Signs Temp Pulse Resp BP 97.8 F 65 20 H 128/67 H 01/01/22 11:01/01/22 11:01/01/22 11:01/01/22 11: Weight: 155 lb 11.464 oz Body Mass Index (BMI) 25.9 Charges/Coding Procedures Integumentary 111xxx-113xx: 68221 Casie musc/fascia 20 sq cm/< Add On Codes: 53440 Casie musc/fascia add-on (x4) Physical Exam Const alert and oriented x3 General Appearance: cooperative HEENT normocephalic Resp normal respiratory effort Cardio regular rate Extremity normal capillary refill Skin Wound Narrative: Sacral ulcer is beefy pink with good granulation tissue. Laney wound is clear with no excoriation. Left ischial ulcer is healed. Neuro CN's II-XII intact bilaterally Psych Appearance: well kempt Debridement Note Debridement Note Wound debrided: Sacral ulcer Wound Grade/Stage: Stage IV Type of Debridement: Excisional debridement Anesthesia Used: 5% Lidocaine Gel Depth: Down to and including healthy tissue, in the subcutaneous layer and to muscle Percentage of wound debrided: 100 Instrument Used: 7mm curette Tissue Removed: Nonviable tissue and slough into the muscle. Severity: Fat Layer Exposed Amount of bleeding with debridement: Mild Bleeding Controlled with: Pressure and Compression and gauze Patient tolerated procedure: Patient tolerated procedure well Post-Debridement Measurements and Additional Note: Post-Debridement Measurements/Treatment WC - Nurse 1 - General Ulcer Assessment Start: 01/01/22 11:21 Freq: Status: Active Protocol: KRANTHI Activity Type Activity Date Activity User E-Sign Co-Sign Detail Recorded Client Recorded Date Recorded By Document 01/01/22 11:21 DL [id number] 01/01/22 11:32 DL 01/01/22 11:21 - Today's Visit Information Type of service Follow-up Visit (Physician/EXTENDED DAY TEACHER ) Arrival Mode Wheelchair Transfer Assistance Will Lift Transfer Assist (Other) x2 Patient Identification Verified (Name & Yes ) Patient Requires Transmission-Based No Precautions Height and Weight Body Mass Index (BMI) 25.9 BMI Classification Overweight Vital Signs Temperature (97.8 F-99.1 F) 97.8 F Temperature Source Temporal Pulse Rate (60-100) 65 Pulse Location Monitor Respiratory Rate (12-18) 20 H Respiratory rate source Observation Blood Pressure (90/60-120/80) 128/67 H Blood Pressure Mean (mm Hg) 87 Source Monitor History Since Last Visit- (Skip if this is Patient's initial visit) Have you changed medications since your No last visit? Any new allergies or adverse reactions No Had a fall/change in ADL's that may No increase risk of falls Signs or symptoms of abuse and/or No neglect since last visit Have you been in the hospital since your No last visit? Has dressing in place as prescribed Yes Has compression in place as prescribed N/A Has offloadiing in place as prescribed Yes Experienced any changes in pain level or No management Other Footwear socks both feet Pain Scale: 0-10 Numeric Is Patient Pain Free? Yes WC - Nurse 1 - General Ulcer Measurement Start: 01/01/22 11:21 Freq: Status: Active Protocol: Activity Type Activity Date Activity User E-Sign Co-Sign Detail Recorded Client Recorded Date Recorded By Document 01/01/22 11:21 DL [id number] 01/01/22 11:32 DL 01/01/22 11:21 Wound Center Nurse 1 #1 Sacral -Combined with other wound No -Current Size (cm) - Length 5.1 -Current Size (cm) - Width 6.1 -Current Size (cm) - Depth 0.7 -Total Square Cm 31.11 -Photo Taken No -Epithelialization Small 1-33% -Tunneling No -Undermining/Tunneling Yes -Undermining/Tunneling Starts (O'clock 7 ) -Undermining/Tunneling Ends (O'clock) 10 -Maximum Distance (cm) 1.1 -Circular Undermining No -Exudate Amt Medium -Exudate Type Serosanguineous -Wound Margin Distinct, Outline Attached -Granulation Amt Large (67-100%) -Granulation Quality [place] -Slough/Fibrin Yes -Necrosis Amt Small (1-33%) -Necrotic Tissue Type Adherent Slough -Texture (Laney-wound Skin Appearance) Assessed, Scarring -Moisture (Laney-wound Skin Appearance) Assessed -Color (Laney-wound Skin Appearance) Assessed -Temperature (Laney-wound Skin No Abnormality Appearance) (Pt Warm) -Tenderness on Palpation (Laney-wound No Skin Appearance) -Ulcer Cleansing Soap and Water -Foul Odor after Cleansing No -Anesthetic Used 5% Lidocaine Gel Assessment/Plan Assessment/Plan (1) Pressure ulcer of sacral region, stage 4: CODE(S): L89.154 - Pressure ulcer of sacral region, stage 4 (2) Left perineal ischial pressure ulcer: CODE(S): L89.329 - Pressure ulcer of left buttock, unspecified stage (3) Paraplegia: CODE(S): G82.20 - Paraplegia, unspecified (4) Osteomyelitis of pelvis: CODE(S): M86.9 - Osteomyelitis, unspecified (5) Large B-cell lymphoma: CODE(S): C85.10 - Unspecified B-cell lymphoma, unspecified site PLAN: Wound Care - Sacral ulcer Aquacel- Ag packed into the tunnel and place aquacel-ag onto the rest of the ulcer, topped with gauze or ABD. The left ischial ulcer is healed. Encouraged to massage the healed ulcer 1-2 times a day to help soften the scarring. Place A&D ointment or aquaphore to moisturize and act as a skin barrier. Wound culture 10/07/21 while in the hospital positive for Klebsiella oxytoca, Staphylococcus haemolyticus, and Corynebacterium striatum. Treated with Zosyn and Vanc while hospitalized. Completed Augmentin. Wound culture from 09/12/21 was positive for Staphylococcus haemolyticus and Enterococcus faecalis. Completed Augmentin and Doxycycline and a probiotic. Encourage increased protein intake to help with wound healing. Follow up 2 weeks. Call or come in sooner if have any questions or concerns.
[2022-01-15 10:14] VITALS: BP 124/70; PULSE 67; RESP 18; TEMP 36.2; BMI 25.9
--- NOTE | 2022-01-15 12:31 | PCM.WC.PN ---
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 She had progressive paraplegia. She went to TCU for acute rehab for this progressive paraplegia. During that time she had worsening sacral pressure sore with skin necrosis. Surgery 05/15/21 - Excision necrotic sacral pressure sore, Stage IV, with partial ostectomy for osteomyelitis. Pathology from surgery on 05/15/21 of bone showed acute osteomyelitis. Operative tissue culture positive for Escherichia coli, Klebsiella, Vanc. Resist. E. gallinarum, Vanc. Resist. E. faecalis. Operative bone culture positive for Escherichia coli, Vanc. Resist. E. faecalis, Vanc. Resist. E. gallinarum. She was on Meropenem, Vancomycin has been stopped and Linezolid started. ID is managing. Radiation from 05/17/21 - 06/12/21 18 treatments to T4-T7 area including paraspinal region. 06/06/21- Laparoscopic sigmoid colectomy with creation of end colostomy for fecal diversion. Was in TCU 06/08/21-07/20/21. Wound Care - Sacral ulcer Aquacel- Ag topped with gauze or ABD daily. The left ischial ulcer is healed. Massage with lotion at least once daily. Place A&D ointment or aquaphore to laney wound to moisturize and act as a skin barrier. She denies any nausea and vomiting. She states that her appetite is improving and she is drinking extra protein shakes. Progress of Wound: Left ischial ulcer remains healed. Sacral ulcer is beefy pink. There is no bone exposure, there is good granulation tissue present. Her laney wound is intact but dry. Stop the Calmoseptine lotion and use Aquaphor/A&D ointment or vasoline for a moisturizing skin barrier ointment until the dryness resolves, then may start using the Calmoseptine cream. Objective Data Objective Data Vital Signs: Vital Signs Temp Pulse Resp BP 97.1 F L 67 18 124/70 H 01/15/22 10:14 01/15/22 10:14 01/15/22 10:14 01/15/22 10:14 Weight: 155 lb 11.464 oz Body Mass Index (BMI) 25.9 Charges/Coding Procedures Integumentary [id number]: [id number] Casie subq tissue 20 sq cm/< Add On Codes: [id number] Casie subq tissue add-on Physical Exam Const alert and oriented x3 General Appearance: cooperative HEENT normocephalic Head and Scalp: atraumatic Resp normal respiratory effort Cardio regular rate Extremity normal capillary refill Skin Wound Narrative: Sacral ulcer is beefy pink, bone is completely covered with granulation tissue. Laney wound has areas of dryness but it is most likely caused from zinc in the barrier cream. Left ischial ulcer remains healed. Neuro CN's II-XII intact bilaterally Psych Appearance: grossly normal and well kempt Debridement Note Debridement Note Wound debrided: Sacral ulcer Laterality: Not Applicable Wound Grade/Stage: Stage IV Type of Debridement: Excisional debridement Anesthesia Used: 5% Lidocaine Gel Depth: Down to and including healthy tissue and in the subcutaneous layer Percentage of wound debrided: 100 Instrument Used: 7mm curette Tissue Removed: Subcutaneous tissue and slough Severity: Fat Layer Exposed Amount of bleeding with debridement: Mild Bleeding Controlled with: Pressure and Compression and gauze Patient tolerated procedure: Patient tolerated procedure well Post-Debridement Measurements and Additional Note: Post-Debridement Measurements/Treatment - Nurse 1 - General Ulcer Assessment Start: 01/01/22 11:21 Freq: Status: Active Protocol: KRANTHI Activity Type Activity Date Activity User E-Sign Co-Sign Detail Recorded Client Recorded Date Recorded By Document 01/01/22 11:21 DL [id number] 01/01/22 11:32 DL Document 01/15/22 10:14 DL [id number] 01/15/22 10:26 DL 01/01/22 01/15/22 11:21 10:14 - Today's Visit Information Type of service Follow-up Visit Follow-up Visit (Physician/[employer] [facility] [employer] (Physician/[employer] [employer] ) ) Arrival Mode Wheelchair Stretcher Transfer Assistance Will Lift Will Lift Transfer Assist (Other) x2 Patient Identification Verified (Name & Yes Yes ) Patient Requires Transmission-Based No No Precautions Height and Weight Body Mass Index (BMI) 25.9 25.9 BMI Classification Overweight Overweight Vital Signs Temperature (97.8 F-99.1 F) 97.8 F 97.1 F L Temperature Source Temporal Temporal Pulse Rate (60-100) 65 67 Pulse Location Monitor Monitor Respiratory Rate (12-18) 20 H 18 Respiratory rate source Observation Blood Pressure (90/60-120/80) 128/67 H 124/70 H Blood Pressure Mean (mm Hg) 87 88 Source Monitor Monitor History Since Last Visit- (Skip if this is Patient's initial visit) Have you changed medications since your No No last visit? Any new allergies or adverse reactions No No Had a fall/change in ADL's that may No No increase risk of falls Signs or symptoms of abuse and/or No No neglect since last visit Have you been in the hospital since your No last visit? Has dressing in place as prescribed Yes Yes Has compression in place as prescribed N/A N/A Has offloadiing in place as prescribed Yes Yes Experienced any changes in pain level or No No management Other Footwear socks both feet Pain Scale: 0-10 Numeric Is Patient Pain Free? Yes Yes WC - Nurse 1 - General Ulcer Measurement Start: 01/01/22 11:21 Freq: Status: Active Protocol: Activity Type Activity Date Activity User E-Sign Co-Sign Detail Recorded Client Recorded Date Recorded By Document 01/01/22 11:21 DL [id number] 01/01/22 11:32 DL Document 01/15/22 10:14 DL [id number] 01/15/22 10:26 DL 01/01/22 01/15/22 11:21 10:14 Wound Center Nurse 1 #1 Sacral -Combined with other wound No -Current Size (cm) - Length 5.1 4.8 -Current Size (cm) - Width 6.1 6 -Current Size (cm) - Depth 0.7 0.5 -Total Square Cm 31.11 28.8 -Photo Taken No -Epithelialization Small 1-33% -Tunneling No -Undermining/Tunneling Yes -Undermining/Tunneling Starts (O'clock 7 ) -Undermining/Tunneling Ends (O'clock) 10 -Maximum Distance (cm) 1.1 -Circular Undermining No -Exudate Amt Medium Medium -Exudate Type Serosanguineous Serosanguineous -Wound Margin Distinct, Distinct, Outline Outline Attached Attached -Granulation Amt Large (67-100%) Large (67-100%) -Granulation Quality [place] Red -Slough/Fibrin Yes -Necrosis Amt Small (1-33%) Small (1-33%) -Necrotic Tissue Type Adherent Slough Adherent Slough -Texture (Laney-wound Skin Appearance) Assessed, Assessed, Scarring Scarring -Moisture (Laney-wound Skin Appearance) Assessed Assessed, Maceration -Color (Laney-wound Skin Appearance) Assessed No Abnormality, Assessed -Temperature (Laney-wound Skin No Abnormality No Abnormality Appearance) (Pt Warm) (Pt Warm) -Tenderness on Palpation (Laney-wound No No Skin Appearance) -Ulcer Cleansing Soap and Water Rinsed/ Irrigated with Saline -Foul Odor after Cleansing No No -Anesthetic Used 5% Lidocaine 4% Lidocaine Gel Solution WC - Nurse 2 - General Ulcer CM Notes Start: 01/01/22 11:21 Freq: Status: Active Protocol: Activity Type Activity Date Activity User E-Sign Co-Sign Detail Recorded Client Recorded Date Recorded By Document 01/01/22 12:13 ARMIDA [id number] 01/01/22 12:14 PL Document 01/15/22 10:54 [id number] 01/15/22 10:58 01/01/22 01/15/22 12:13 10:54 Wound Center Nurse 2 #1 Sacral -Time 11:54 10:54 -Correct Patient Yes Yes -Correct Side, Site, Position Yes Yes -Correct Procedure Yes Yes -Procedure Performed Yes Yes -Type of Procedure Debridement Debridement -Clinical Debridement Subcutaneous Subcutaneous -Tissue Removed Subcutaneous Subcutaneous -Post Debridement (cm) - Length 5.0 5.5 -Post Debridement (cm) - Width 6.5 6.0 -Post Debridement (cm) - Depth 0.4 0.5 -Total Square (Post) (cm) 32.50 33.00 -Area of Debridement (cm) - Length 5.0 5.5 -Area of Debridement (cm) - Width 6.5 6.0 -Total Square (Area) (cm) 32.50 33.00 -Tunneling No No -Undermining/Tunneling No No -Circular Undermining No No -Wound/Ulcer Outcome Not Healed Not Healed -Ulcer Cleansing Rinsed/ Rinsed/ Irrigated with Irrigated with Saline Saline -Foul Odor after Cleansing No No -Bioengineered Tissue No No -Bleeding Controlled with Pressure Pressure -Treatment Response Procedure Procedure Tolerated Well Tolerated Well -Offloading No -Pressure Reduction Wheelchair cushion, Mattress overlay -Debridement - Subq, 1st 20sq cm Yes Yes -Debridement, SubQ, ea addt'l 20sq cm 1 1 or part thereof Pain Scale: 0-10 Numeric Is Patient Pain Free? Yes Yes - Nurse 3 - General Ulcer D/C NN Start: 01/01/22 11:21 Freq: Status: Active Protocol: Activity Type Activity Date Activity User E-Sign Co-Sign Detail Recorded Client Recorded Date Recorded By Document 01/15/22 11:05 DL [id number] 01/15/22 11:06 DL 01/15/22 11:05 Wound Care Nurse 3 #1 Sacral -Ulcer Cleansing Rinsed/ Irrigated with Saline -Foul Odor after Cleansing No -Primary Dressing Applied Aquacel AG 4x4 -Primary Dressing Covered/Secured with Secured with Tape -Other Covering ABD -Aquacel AG 4x4 1 Treatment Response Procedure Tolerated Well Pain Scale: 0-10 Numeric Is Patient Pain Free? Yes - Visit Discharge Discharge Condition Stable Ambulatory Status Wheelchair Transportation Private Auto Accompanied by family Facility Type Home Health Assessment/Plan Assessment/Plan (1) Pressure ulcer of sacral region, stage 4: CODE(S): L89.154 - Pressure ulcer of sacral region, stage 4 (2) Osteomyelitis of pelvis: CODE(S): M86.9 - Osteomyelitis, unspecified (3) Paraplegia: CODE(S): G82.20 - Paraplegia, unspecified (4) Large B-cell lymphoma: CODE(S): C85.10 - Unspecified B-cell lymphoma, unspecified site PLAN: Wound Care - Sacral ulcer Aquacel- Ag packed into the sacral ulcer,topped with gauze or ABD. The left ischial ulcer is healed. Encouraged to massage the healed ulcer 1-2 times a day to help soften the scarring. Stop the Calmoseptine lotion and use Aquaphor/A&D ointment or Vaseline for a moisturizing skin barrier ointment until the dryness resolves, then may start using the Calmoseptine cream. Wound culture 10/07/21 while in the hospital positive for Klebsiella oxytoca, Staphylococcus haemolyticus, and Corynebacterium striatum. Treated with Zosyn and Vanc while hospitalized. Completed Augmentin. Wound culture from 09/12/21 was positive for Staphylococcus haemolyticus and Enterococcus faecalis. Completed Augmentin and Doxycycline and a probiotic. Encourage increased protein intake to help with wound healing. Follow up 2 weeks. Call or come in sooner if have any questions or concerns.
== END 2022-01-18 23:59 | disposition home or self-care (01) ==
LOC: WC 10:30
PROVIDERS: PCP Student in an Organized Health Care Education/Training Program; Visit Provider Nurse Practitioner Family
DX: L89.154 Pressure ulcer of sacral region, stage 4 (principal); G82.20 Paraplegia, unspecified; C85.10 Unspecified B-cell lymphoma, unspecified site; Z92.3 Personal history of irradiation
CPT/HCPCS: 11042; 11045

== ENCOUNTER 2022-01-19 18:30 | Inpatient (IN) | payer OTHER, SELFPAY ==
[2022-01-19 18:32] VITALS: BP 128/72; PULSE 90; RESP 14; TEMP 36.1; O2SAT 96; BMI 23.3
[2022-01-19 19:24] VITALS: BP 122/67; PULSE 78; RESP 16; TEMP 37.2; O2SAT 95
--- NOTE | 2022-01-19 19:56 | ED.VIS.GI ---
HPI HPI - GI History of Present Illness Chief Complaint: Abd Pain Narrative Narrative: Patient presents with her family because of diarrhea, loose stool, and burning around her stoma. She is paralyzed from the waist down according to her family because of B cell lymphoma that was wrapping around her spine. She has had a stoma and was recently seen by Dr. Machado. She complains of burning around the stoma area, and she also had bleeding from the colostomy area. She has had intermittent abdominal pain. Her family states that she has on antibiotics at times because of urinary tract infections they are concerned because of her abdominal pain and the change in her stool. They were seen by her primary care physician who suggested stool cultures and studies because of the loose stool. She denies any fevers or chills. No exacerbating or alleviating factors to her stomal pain. [facility] Medical History Abdominal pain Acute postoperative anemia due to expected blood loss Adrenal disorder Adynamic ileus Afib Atrial fibrillation with rapid ventricular response Cancer Chronic indwelling Gutierrez catheter Colostomy in place Coronary artery disease Coronary artery disease Debility Debility Decubitus ulcer Decubitus ulcer of left ischium, stage 4 Diffuse large B cell lymphoma Diffuse large B-cell lymphoma Gallstone History of radiation therapy Hypertension Ileus Infection Large cell lymphoma MCI (mild cognitive impairment) Myocardial infarct Neuropathic pain Osteomyelitis of pelvis Paraplegia Paraplegia Paraplegia Pressure sore Pressure ulcer of sacral region, stage 4 Pressure ulcer of sacral region, unstageable UTI (urinary tract infection) Home Medications Eliquis 5 mg PO BID 30 Days #60 tab 07/20/21 [Rx Last Taken 10/06/21] atorvastatin 40 mg PO DAILY 30 Days #30 tab 07/20/21 [Rx Last Taken 10/06/21] losartan 100 mg PO DAILY 10/07/21 [History Last Taken 10/06/21] amiodarone 200 mg tablet 200 mg PO DAILY@0800 tab 12/12/21 [History Last Taken Unknown] gabapentin 100 mg capsule 100 mg PO BID 12/12/21 [History Last Taken Unknown] metoclopramide HCl 10 mg tablet 5 mg PO TID tab 12/12/21 [History Last Taken Unknown] metoprolol succinate 50 mg tablet,extended release 24 hr 50 mg PO BID tab 12/12/21 [History Last Taken Unknown] Lactobacillus acidophilus [Probiotic] 10,000 mmu cells PO DAILY 01/19/22 [History Last Taken Unknown] Allergy/AdvReac Type Severity Reaction Status Date / Time prednisone Allergy Intermediate atrial Verified 01/19/22 18:32 fibrillation Family History Father CHF (congestive heart failure) Myocardial infarction Mother CAD (coronary artery disease) Alzheimer disease Surgical History H/O Spinal surgery History of cholecystectomy Hx of CABG S/P cholecystectomy S/P excisional debridement Social History household members: family housing: house number of children: 5 Smoking Status: Never smoker alcohol intake: never substance use type: does not use what type of physical activity do you participate in: other details: leg therapy/hand weights frequency: 5-6 times per week chris/pentecostal: Mandaen ROS ROS ED ROS Narrative Constitutional: No fever, no chills. HEENT: No sore throat. No neck pain. No loss of vision. No rhinorrhea. Cardiovascular: No chest pain. No palpitations. No pedal edema. Respiratory: No cough, no shortness of breath. Abdominal: Positive stomal abdominal pain. No nausea. No vomiting. Bleeding from stoma-resolved. Looser stools than normal. Genitourinary: No dysuria. No hematuria. Musculoskeletal: No myalgias. No arthralgias. Neurologic: No headaches. No dizziness. No lightheadedness. Skin: No rash. No change in color. Psychiatric: No depression. No anxiety. EXAM Physical Exam Narrative Exam Narrative: Afebrile. Vital signs noted. HEENT: Normocephalic. Atraumatic. PERRL, EOMI. Neck soft and supple. No point tenderness or step off. Cardiovascular: Regular rate and rhythm. No murmurs, rubs, or gallops appreciated. Respiratory: No tachypnea. Lungs clear to auscultation bilaterally. Gastrointestinal: Abdomen soft, nontender, with normoactive bowel sounds. No rebound or guarding. There is a stoma with colostomy bag that contains light brown, loose stool and air, no blood. Neurological: Awake. Alert. Nonfocal, nonlateralizing. Skin: No rash. Normal color. No pallor. Musculoskeletal: No pedal edema. Full range of motion extremities. Const Vital Signs: 01/19/22 18:32 01/19/22 19:24 01/19/22 20:20 Temperature 97.0 F L 99 F 98.7 F Temperature Source Temporal Oral Oral Pulse Rate 90 78 74 Respiratory Rate 14 16 16 Blood Pressure 128/72 H 122/67 H 115/69 Blood Pressure Mean 90 85 84 Pulse Ox 96 95 98 Oxygen Delivery Method Room Air Room Air Room Air 01/19/22 21:19 01/19/22 22:18 Temperature 98.9 F 98.6 F Temperature Source Oral Oral Pulse Rate 72 77 Respiratory Rate 16 16 Blood Pressure 121/65 H 120/77 Blood Pressure Mean 83 91 Pulse Ox 98 96 Oxygen Delivery Method Room Air Room Air MDM MDM MDM Narrative Medical decision making narrative: Comprehensive work-up was pursued. Given the nature of her complaint, stool studies will be sent. I will obtain imaging of her abdomen and pelvis with CT. I obtain basic laboratory work also. She declined any analgesics currently. She has a slightly elevated white count of 13.0, hemoglobin normal at 13.4, platelet count normal at 266. Electrolyte panel shows a creatinine of 0.38 with a glucose of 91. LFTs are grossly unremarkable. CT of the abdomen and pelvis shows acute pancolitis. It also does show findings compatible with her known distal sacral osteomyelitis. Given her colitis and her change in stool, I did send off C. difficile and stool for ova and parasites. I discussed the patient with Dr. Meza with gastroenterology. He suggested starting her on antibiotics for her colitis but to withhold steroids. I will discuss the patient with the hospitalist Dr. Wall. Patient will be admitted in stable condition. Lab Data Attestation: I reviewed the patient's lab results. Labs: Laboratory Results - last 24 hr 01/19/22 01/19/22 19:55 19:55 WBC 13.0 H RBC 4.76 Hgb 13.4 Hct 41.5 MCV 87.2 MCH 28.2 MCHC 32.3 RDW Std Deviation 55.1 H RDW Coeff of [place] 17.1 H Plt Count 266 MPV 9.8 Immature Gran % (Auto) 0.400 Neut % (Auto) 71.3 H Lymph % (Auto) 18.3 L [place] % (Auto) 8.7 Eos % (Auto) 1.0 Baso % (Auto) 0.3 Absolute Neuts (auto) 9.3 H Absolute Lymphs (auto) 2.37 Nucleated RBC % 0 Sodium 138 Potassium 3.9 Chloride 106 Carbon Dioxide 27.0 Anion Gap 5 BUN 7 Creatinine 0.38 L Estim Creat Clear Calc 42.39 Est GFR (MDRD) Af Amer 214 Est GFR (MDRD) Non-Af 177 BUN/Creatinine Ratio 18.6 Glucose 91 Calcium 8.6 Total Bilirubin 0.50 AST 36 ALT 20 Alkaline Phosphatase 72 Total Protein 5.4 L Albumin 2.0 L Globulin 3.4 Albumin/Globulin Ratio 0.6 L Radiography Diagnostic Testing: Clinical Impression(s) from Imaging Studies Abdomen/Pelvis CT 01/19/22 20:49 IMPRESSION: Acute pancolitis. Multiple layering stones in the urinary bladder. Findings compatible with distal sacral osteomyelitis. Electronically Signed: Celestine Gtz MD at 21:35 EDT , Discharge Plan Dx/Rx/DC Orders Clinical Impression: Abdominal pain, Colitis, Diarrhea, Paraplegia Disposition Disposition: Acute Care [facility]
[2022-01-19 20:17] LABS: Absolute Lymphocyte Count 2.37 X10^3/uL (0.83-4.51); Absolute Neutrophil Count 9.3 X10^3/uL (2.0-7.7); Basophil# 0.04 X10^3/uL; Basophil% 0.3 % (0-1); Eosinophil# 0.13 X10^3/uL; Hematocrit 41.5 % (37-47); Hemoglobin 13.4 g/dL (12.0-15.0); Lymphocyte # 2.37 X10^3/ul (0.83-4.51); Lymphocyte % 18.3 % (19-41); Mean Corp Hgb Conc 32.3 g/dL (32-36); Mean Corpuscular Hgb 28.2 pg (27.0-32.0); Mean Corpuscular Volume 87.2 fL (81-99); Mean Platelet Vol. 9.8 fl (6.2-12.0); Monocyte# 1.13 X10^3/uL; Monocyte% 8.7 % (0-10); NRBC Flagged by Analyzer 0 % (0-5); Neutrophil # 9.25 X10^3/uL (2.7-7.7); Neutrophil % 71.3 % (47-70); Platelet Count 266 K/mm3 (150-450); RBC Distribution Width CV 17.1 % (11.6-14.6); RBC Distribution Width SD 55.1 fl (35.1-43.9); Red Blood Count 4.76 M/mm3 (4.2-5.4)
[2022-01-19 20:20] VITALS: BP 115/69; PULSE 74; RESP 16; TEMP 37.1; O2SAT 98
[2022-01-19] MEDS: 0.9% Normal Saline 1,000 ML 1000 ML IV (20:20)
[2022-01-19 20:37] LABS: ALB/GLOB Ratio 0.6 RATIO (0.9-2.4); AST(SGOT) 36 U/L (15-37); Alanine Aminotransfer ALT/SGPT 20 U/L (13-56); Alkaline Phosphatase 72 U/L (45-117); Anion Gap 5 (5-15); BUN 7 mg/dL (7-18); BUN/Creat Ratio 18.6 RATIO (10-20); Calcium,Total 8.6 mg/dL (8.5-10.1); Chloride 106 mmol/L (98-107); Creatinine, Serum 0.38 mg/dL (0.55-1.02); EST Glomerular Filtration Rate 177 mL/min (>60); Est Glom Filt Rate - Afr Amer 214 mL/min (>60); Estimated Creatinine Clearance 42.39 ml/min; Globulin 3.4 g/dL (2.2-4.2); Glucose 91 mg/dL (74-106); Potassium 3.9 mmol/L (3.5-5.1); Protein, Total 5.4 g/dL (6.4-8.2); Sodium Level 138 mmol/L (136-145)
--- NOTE | 2022-01-19 20:49 | CT_ITS ---
STUDY: CT ABDOMEN AND PELVIS WITH CONTRAST REASON FOR EXAM: Female, 76 years old. PAIN RADIATION DOSAGE (If Supplied By Facility): CTDIvol = ( 12.24 ) mGy, DLP = ( 541.81 ) mGycm TECHNIQUE: Transaxial images were obtained from the dome of the diaphragm to the symphysis pubis without oral contrast. IV 100mL Isovue-300 was administered. Sagittal and coronal images were reconstructed. Individualized dose optimization techniques were used for this CT. COMPARISON: Head CT dated 09/12/2021 FINDINGS: Minimal bibasilar dependent atelectasis. Status post cholecystectomy with associated mild biliary dilatation. Unremarkable liver, spleen, pancreas, adrenals, and bilateral kidneys. Normal appendix. Status post distal colectomy and left-sided colostomy. Circumferential wall thickening of the remaining loops of colon with surrounding fat stranding, consistent with acute colitis. No evidence of bowel obstruction. No adenopathy. No free air or free fluid. Vascular calcification. No abdominal aortic aneurysm. Sections through the pelvis demonstrate a CONNER catheter in the bladder. Multiple layering stones in the urinary bladder. No adnexal mass. Erosive changes of a 4 with overlying soft tissue ulcer, consistent with osteomyelitis. S5 and coccyx are not identified and must have been removed. CT/Abdomen/Pelvis W IV Cont ONLY IMPRESSION: Acute pancolitis. Multiple layering stones in the urinary bladder. Findings compatible with distal sacral osteomyelitis. Electronically Signed: Celestine Gtz MD at 21:35 EDT ,
[2022-01-19 21:19] VITALS: BP 121/65; PULSE 72; RESP 16; TEMP 37.2; O2SAT 98
[2022-01-19 22:18] VITALS: BP 120/77; PULSE 77; RESP 16; TEMP 37; O2SAT 96
--- NOTE | 2022-01-19 22:51 | HP.PCM.HOS_ITS ---
[facility] - General General Date of Admission: 01/19/22 HPI Narrative CHRISTOPHER CORONEL, is a 76 F with a significant history of stage IV decubitus ulcer with chronic osteomyelitis of pelvis; atrial fibrillation on amiodarone and Eliquis; paraplegia and colostomy who presents to the emergency department with 2-week history of progressively worsening loose stools. Patient previously had pain around the colostomy but that has resolved. Also patient had some blood oozing from her colostomy but that has also resolved. She denies any nausea or vomiting. She denies fever or chills. She denies anorexia Because of her symptoms including oozing blood from her ostomy site patient saw General Surgery Dr. Machado on 01/17/2022. [facility] Medical History Abdominal pain Acute postoperative anemia due to expected blood loss Adrenal disorder Adynamic ileus Afib Atrial fibrillation with rapid ventricular response Cancer Chronic indwelling Gutierrez catheter Colostomy in place Coronary artery disease Coronary artery disease Debility Debility Decubitus ulcer Decubitus ulcer of left ischium, stage 4 Diffuse large B cell lymphoma Diffuse large B-cell lymphoma Gallstone History of radiation therapy Hypertension Ileus Infection Large cell lymphoma MCI (mild cognitive impairment) Myocardial infarct Neuropathic pain Osteomyelitis of pelvis Paraplegia Paraplegia Paraplegia Pressure sore Pressure ulcer of sacral region, stage 4 Pressure ulcer of sacral region, unstageable UTI (urinary tract infection) Home Medications Eliquis 5 mg PO BID 30 Days #60 tab 07/20/21 [Rx Last Taken 10/06/21] atorvastatin 40 mg PO DAILY 30 Days #30 tab 07/20/21 [Rx Last Taken 10/06/21] losartan 100 mg PO DAILY 10/07/21 [History Last Taken 10/06/21] amiodarone 200 mg tablet 200 mg PO DAILY@0800 tab 12/12/21 [History Last Taken Unknown] gabapentin 100 mg capsule 100 mg PO BID 12/12/21 [History Last Taken Unknown] metoclopramide HCl 10 mg tablet 5 mg PO TID tab 12/12/21 [History Last Taken Unknown] metoprolol succinate 50 mg tablet,extended release 24 hr 50 mg PO BID tab 12/12/21 [History Last Taken Unknown] Lactobacillus acidophilus [Probiotic] 10,000 mmu cells PO DAILY 01/19/22 [History Last Taken Unknown] Allergy/AdvReac Type Severity Reaction Status Date / Time prednisone Allergy Intermediate atrial Verified 01/19/22 18:32 fibrillation Family History Father CHF (congestive heart failure) Myocardial infarction Mother CAD (coronary artery disease) Alzheimer disease Surgical History H/O Spinal surgery History of cholecystectomy Hx of CABG S/P cholecystectomy S/P excisional debridement Social History household members: family housing: house number of children: 5 Smoking Status: Never smoker alcohol intake: never substance use type: does not use what type of physical activity do you participate in: other details: leg therapy/hand weights frequency: 5-6 times per week chris/latter day: Darion ROS ROS Narrative Constitutional: Denies fever, chills, fatigue, anorexia and change in weight Eyes: Denies blurry vision, change in eye color, change in vision, discharge from eye(s), double vision, erythema, eye pain, loss of vision or other HEENT: Denies abnormal hearing, dysphagia, ear pain, epistaxis, headache(s), hearing loss, nasal congestion, nasal discharge, post nasal drip, sinus pressure, sore throat or other Cardiovascular: Denies chest pain or palpitations. Denies dyspnea on exertion, orthopnea and paroxysmal nocturnal dyspnea Respiratory/Chest: Denies cough, excessive phlegm production, shortness of breath with exertion and wheezing Gastrointestinal: Multiple loose stools. Denies coffee ground emesis, constipation,, dyspepsia, hematemesis, melena, nausea, vomiting or other Genitourinary: Denies burning urination, difficulty urinating, dysuria, hematuria, nocturia, urinary frequency, urinary hesitancy, urinary incontinence, urinary urgency or other Musculoskeletal: Denies arthralgias, back pain, joint pain, joint stiffness, joint swelling, myalgias, neck pain or other Neurologic: Denies abnormal gait, abnormal speech, confusion, disequilibrium, dizziness, focal weakness, headache(s), numbness, paresthesias, seizure-like activity, seizures, syncope, tingling, tremor(s) or other Psychiatric: Denies anxiety, depression, homicidal ideation, suicidal ideation or other Endocrinology: Denies change in body appearance, cold intolerance, excessive sweating, heat intolerance, polydipsia, polyuria or other Hematologic/Lymphatic: Denies anemia, easy bleeding, easy bruising, lymphadenopathy or other Integumentary: With ulcer at buttocks Allergic/Immunologic: Denies rhinitis, hives, eczema, or other Vital Signs Vital Signs Vital Signs: 01/19/22 18:32 01/19/22 19:24 01/19/22 20:20 Temperature 97.0 F L 99 F 98.7 F Temperature Source Temporal Oral Oral Pulse Rate 90 78 74 Respiratory Rate 14 16 16 Blood Pressure 128/72 H 122/67 H 115/69 Blood Pressure Mean 90 85 84 Pulse Ox 96 95 98 Oxygen Delivery Method Room Air Room Air Room Air 01/19/22 21:19 01/19/22 22:18 Temperature 98.9 F 98.6 F Temperature Source Oral Oral Pulse Rate 72 77 Respiratory Rate 16 16 Blood Pressure 121/65 H 120/77 Blood Pressure Mean 83 91 Pulse Ox 98 96 Oxygen Delivery Method Room Air Room Air Weight Weight: 63.503 kg Body Mass Index (BMI) 23.3 Physical Exam Narrative Physical exam: General: Well-nourished, well-developed. Head: Normocephalic, atraumatic, no tenderness Eyes: Vision is grossly intact. EOMI ENT, no trauma, moist mucous membranes, no rhinorrhea Neck: Nontender, full range of motion, no spinal tenderness, deformities, step- off CVS: Regular rate and rhythm. S1-S2 present. No murmur, gallop or rub. Respiratory : clear to auscultation bilaterally, chest wall nontender, no wheezing Abdomen: Colostomy with yellow loose stools. Soft, nontender, nondistended, nor mal bowel sounds, no masses : With indwelling Gutierrez catheter Back: Nontender, no CVA tenderness, no midline spinal tenderness, deformities, step-offs Extremities: Nontender full range of motion, no trauma Skin: Also coccygeal area. Normal color, no trauma, abrasions Neuro: Alert, oriented, cranial nerves II through XII grossly intact. Psychiatry: Normal mood. Normal affect. Not depressed. Not anxious. Results Lab / Micro Data Result Diagrams: 01/19/22 19:55 01/19/22 19:55 Labs: Laboratory Results - last 24 hr 01/19/22 19:55: WBC 13.0 H, RBC 4.76, Hgb 13.4, Hct 41.5, MCV 87.2, MCH 28.2, MCHC 32.3, RDW Std Deviation 55.1 H, RDW Coeff of Ivory 17.1 H, Plt Count 266, MPV 9.8, Immature Gran % (Auto) 0.400, Neut % (Auto) 71.3 H, Lymph % (Auto) 18.3 L, [place] % (Auto) 8.7, Eos % (Auto) 1.0, Baso % (Auto) 0.3, Absolute Neuts (auto) 9.3 H, Absolute Lymphs (auto) 2.37, Nucleated RBC % 0 01/19/22 19:55: Sodium 138, Potassium 3.9, Chloride 106, Carbon Dioxide 27.0, Anion Gap 5, BUN 7, Creatinine 0.38 L, Estim Creat Clear Calc 42.39, Est GFR (MDRD) Af Amer 214, Est GFR (MDRD) Non-Af 177, BUN/Creatinine Ratio 18.6, Glucose 91, Calcium 8.6, Total Bilirubin 0.50, AST 36, ALT 20, Alkaline Phosphatase 72, Total Protein 5.4 L, Albumin 2.0 L, Globulin 3.4, A lbumin/Globulin Ratio 0.6 L Radiology Impression Abdomen/Pelvis CT 01/19/22 20:49 IMPRESSION: Acute pancolitis. Multiple layering stones in the urinary bladder. Findings compatible with distal sacral osteomyelitis. Electronically Signed: Celestine Gtz MD at 21:35 EDT , Assessment & Plan Assessment/Plan (1) Colitis: (2) Pressure ulcer of sacral region, stage 4: PLAN: Acute pancolitis Abdomen and pelvis CT was visualized and independently interpreted and I agree with radiologist interpretation CBC reviewed showed white count of 13 with neutrophilia and lymphopenia. Trend CBC and BMP ED doctor Discussed case with GI. GI consult Decubitus stage IV pressure ulcer/ostomy care Wet-to-dry dressing at decubitus area. Change daily until further wound care recommendations. Wound care consult. Records reviewed from patient's outpatient visit with general surgery: General surgery recommended conservative treatment of a colostomy stoma at this time. CKD stage IIIa Stable Trend BMP DVT prophylaxis: Not indicated since patient is on Eliquis for A. fib and Eliquis has been continued. Charges/Coding Visit Charges Inpatient E&M: 70377 Init Hosp L3
[2022-01-19] MEDS: Ciprofloxacin 400 MG/200 ML BAG 200 MG IV (23:07)
[2022-01-19 23:10] VITALS: BP 158/69; PULSE 78; RESP 16; TEMP 36.8; O2SAT 98
[2022-01-20] VITALS (12 sets, daily range): BP systolic 112–140; BP diastolic 62–80; PULSE 72–100; RESP 18; TEMP 36.8–37.2; O2SAT 94–100; BMI 20.7
[2022-01-20] MEDS: metroNIDAZOLE 500 MG/100 ML BAG 100 MG IV ×2 (00:56→06:51)
[2022-01-20] MEDS: Metoclopramide 5 MG TABLET PO ×3 (06:51→22:22)
[2022-01-20 06:57] LABS: Absolute Lymphocyte Count 2.37 X10^3/uL (0.83-4.51); Absolute Neutrophil Count 10.5 X10^3/uL (2.0-7.7); Basophil# 0.04 X10^3/uL; Basophil% 0.3 % (0-1); Eosinophil# 0.06 X10^3/uL; Eosinophils% 0.4 % (0-5); Hematocrit 36.6 % (37-47); Hemoglobin 11.8 g/dL (12.0-15.0); Lymphocyte # 2.37 X10^3/ul (0.83-4.51); Lymphocyte % 16.5 % (19-41); Mean Corp Hgb Conc 32.2 g/dL (32-36); Mean Corpuscular Volume 86.9 fL (81-99); Mean Platelet Vol. 9.5 fl (6.2-12.0); Monocyte# 1.32 X10^3/uL; Monocyte% 9.2 % (0-10); NRBC Flagged by Analyzer 0 % (0-5); Neutrophil # 10.49 X10^3/uL (2.7-7.7); Neutrophil % 73.1 % (47-70); Platelet Count 237 K/mm3 (150-450); RBC Distribution Width CV 17.2 % (11.6-14.6); RBC Distribution Width SD 54.6 fl (35.1-43.9); Red Blood Count 4.21 M/mm3 (4.2-5.4); White Blood Count 14.4 K/mm3 (4.4-11.0)
[2022-01-20 07:25] LABS: Anion Gap 6 (5-15); BUN 6 mg/dL (7-18); BUN/Creat Ratio 21.4 RATIO (10-20); Calcium,Total 8.4 mg/dL (8.5-10.1); Chloride 107 mmol/L (98-107); Creatinine, Serum 0.28 mg/dL (0.55-1.02); EST Glomerular Filtration Rate 248 mL/min (>60); Est Glom Filt Rate - Afr Amer 300 mL/min (>60); Estimated Creatinine Clearance 40.68 ml/min; Glucose 96 mg/dL (74-106); Potassium 3.5 mmol/L (3.5-5.1); Sodium Level 137 mmol/L (136-145)
[2022-01-20] MEDS: Vancomycin 125 MG/5 ML Susp PO.SYRINGE PO ×4 (08:11→22:55)
[2022-01-20] MEDS: Gabapentin 100 MG Capsule PO ×2 (08:20→22:21)
[2022-01-20] MEDS: Losartan Potassium 100 MG Tablet PO (08:20)
[2022-01-20] MEDS: Amiodarone 200 MG Tablet PO (08:20)
[2022-01-20] MEDS: APIXABAN 5 MG TABLET PO ×2 (08:20→22:20)
[2022-01-20] MEDS: Metoprolol(XL)Succ 50 MG Tablet PO ×2 (08:20→22:22)
--- NOTE | 2022-01-20 08:47 | PN.HOSP_ITS ---
Subjective Subjective Doing well, no issues overnight. Her C. difficile test did come back positive. Her antibiotics were transitioned to p.o. vancomycin. She denies any significant abdominal pain. Objective Data Objective Data Vital Signs: Vital Signs Temp Pulse Resp BP Pulse Ox 98.3 F 88 18 140/80 H 97 01/20/22 07:06 01/20/22 08:20 01/20/22 07:06 01/20/22 08:20 01/20/22 07:06 Oxygen Delivery Method Room Air Weight: 124 lb 5.451 oz Body Mass Index (BMI) 20.7 Intake & Output: Intake and Output for Last 24 Hours 01/19/22 01/20/22 01/21/22 03:59 03:59 03:59 Intake Total 1300 / 1300 100 / 100 Output Total 750 / 750 Balance 1300 / 1300 -650 / -650 Lab / Micro Data Result Diagrams: 01/20/22 06:40 01/20/22 06:40 Labs: Laboratory Results - last 24 hr 01/19/22 19:55: WBC 13.0 H, RBC 4.76, Hgb 13.4, Hct 41.5, MCV 87.2, MCH 28.2, MCHC 32.3, RDW Std Deviation 55.1 H, RDW Coeff of Ivory 17.1 H, Plt Count 266, MPV 9.8, Immature Gran % (Auto) 0.400, Neut % (Auto) 71.3 H, Lymph % (Auto) 18.3 L, [place] % (Auto) 8.7, Eos % (Auto) 1.0, Baso % (Auto) 0.3, Absolute Neuts (auto) 9.3 H, Absolute Lymphs (auto) 2.37, Nucleated RBC % 0 01/19/22 19:55: Sodium 138, Potassium 3.9, Chloride 106, Carbon Dioxide 27.0, Anion Gap 5, BUN 7, Creatinine 0.38 L, Estim Creat Clear Calc 42.39, Est GFR (MDRD) Af Amer 214, Est GFR (MDRD) Non-Af 177, BUN/Creatinine Ratio 18.6, Gl ucose 91, Calcium 8.6, Total Bilirubin 0.50, AST 36, ALT 20, Alkaline Phosphatase 72, Total Protein 5.4 L, Albumin 2.0 L, Globulin 3.4, Albumi n/Globulin Ratio 0.6 L 01/20/22 06:40: WBC 14.4 H, RBC 4.21, Hgb 11.8 L, Hct 36.6 L, MCV 86.9, MCH 28.0, MCHC 32.2, RDW Std Deviation 54.6 H, RDW Coeff of Ivory 17.2 H, Plt Count 237, MPV 9.5, Immature Gran % (Auto) 0.500, Neut % (Auto) 73.1 H, Lymph % (Auto) 16.5 L, [place] % (Auto) 9.2, Eos % (Auto) 0.4, Baso % (Auto) 0.3, Absolute Neuts (auto) 10.5 H, Absolute Lymphs (auto) 2.37, Nucleated RBC % 0 01/20/22 06:40: Sodium 137, Potassium 3.5, Chloride 107, Carbon Dioxide 24.0, Anion Gap 6, BUN 6 L, Creatinine 0.28 L, Estim Creat Clear Calc 40.68, Est GFR (MDRD) Af Amer 300, Est GFR (MDRD) Non-Af 248, BUN/Creatinine Ratio 21.4 H, Glucose 96, Calcium 8.4 L Micro: Microbiology 01/19/22 20:20 Stool Enteric Bacteriology - Preliminary 01/19/22 20:20 Stool C. difficile GDH Antigen & Toxins - Final Toxigenic C. difficile Radiography Diagnostic Testing: Radiology Impression Abdomen/Pelvis CT 01/19/22 20:49 IMPRESSION: Acute pancolitis. Multiple layering stones in the urinary bladder. Findings compatible with distal sacral osteomyelitis. Electronically Signed: Celestine Gtz MD at 21:35 EDT , Physical Exam Const alert, oriented x3 and no apparent distress General Appearance: cooperative HEENT normocephalic and moist oral mucous membranes Eyes PERRL, EOMs intact bilaterally and conjunctivae normal Neck supple and no JVD Resp normal respiratory effort, no retractions, no use of accessory muscles and clear to auscultation bilaterally Auscultation: Negative for crackles, rales, rhonchi or wheezes Cardio regular rate, regular rhythm, S1 normal heart sound, S2 normal heart sound and no murmurs GI soft to palpation, non-tender and non-distended; Negative for hepatosplenomegaly GI Narrative: Colostomy intact Extremity no clubbing, cyanosis or edema Skin no rashes or lesions noted Neuro no focal motor deficits and no sensory deficits noted Psych affect normal Appearance: appropriate Assessment & Plan Assessment/Plan (1) Colitis: (2) Pressure ulcer of sacral region, stage 4: PLAN: 1. C. difficile colitis ?CT scan of the abdomen showed a pancolitis and testing is consistent with C. difficile ?We will stop Cipro and Flagyl transition to p.o. vancomycin ?We will continue to monitor CBCs and BMPs ?She can have a regular diet 2. History of a stage IV decubitus ulcer which necessitated her ostomy/paraplegia ?She had a colostomy placed to help heal her decubitus ulcer given her parapl egia ?Continue with wound care, with wet-to-dry dressings to the decubitus area. 3. A. fib/HTN/HLD ?Blood pressures are stable ?Continue with her home blood pressure and A. fib medications ?Continue with Eliquis 4. CKD 3 A ?Creatinine is stable and at baseline ?We will continue to monitor DVT: Eliquis Charges/Coding Visit Charges Inpatient E&M: 41941 Subs Hosp L2
--- NOTE | 2022-01-20 10:12 | CASEMGMT ---
PADMINI BLAKE Assessment: Face to Face with pt for initial transition planning/care coordination assessment. RN HAYDEN introduced self and role at [facility], pt voices understanding and consents to assessment. Pt is A/O x4 and answers all questions appropriately at this time. Pt sitting up in bed with and dtr Shannon at bedside. Pt agreeable to having visitors in room during assessment. Care providers, pharmacy, and demographics verified/updated. Admitting Dx: acute colitis PCP:Ginette Specialists:[facility]; Melani onc; Barbra Esparza HAND SPRAY OPERATOR at [facility] Preferred Pharmacy: [facility] in [place] Insurance: [employer] Prescription Benefit: no LW/HPOA: Pt has LW on file at [facility]. LNOK: Lc Enriquez, ; Kamlesh Munoz dtr Living Arrangements: Pt lives with in a two story house with a ramp to enter. Pt reports she needs assistance with all ADL/IADL's. Pt is primary caregiver. Pt denies concerns at home. Transportation: Pt hires a passenger coach driver for transportation. DME/HHC/SNF: Pt has a motorized w/c, low air loss mattress, hospital bed and mckenna lift. Pt gets colostomy supplies through pharmacy and wound care supplies through [facility] nurse orders. Pt has SN and PT through [facility]. Pt has been in [facility] and [facility] Pt states no concerns with going home at time of dc. She would like [facility] to resume. Pt has designated her and dtr Shannon as contacts to discuss dc plans with. They are agreeable to this plan. Pt states no further concerns/needs. CM to follow. Advised pt to ask CM if any further question/concerns/needs arise, voices understanding. Pt Goal: Home with [facility] Plan: Home with [facility]
--- NOTE | 2022-01-20 17:03 | EX.PCM.CON.G ---
HPI Consult Data Date of Consult: 01/20/22 HPI Narrative HPI Narrative: CHRISTOPHER CORONEL, is a 76 Fwith history of diffuse large B-cell lymphoma Of the thoracic spine. This resulted in paraplegia. From her progressive peripheral lesion she developed a large sacral wound which is positive for osteomyelitis. She has also had multiple urinary tract infections. Her recent urinary tract infection was several days ago and she was treated with oral antibiotics. She presented to the emergency room with bleeding per ostomy after 2 weeks of liquid stools.She has not on chronic antibiotic therapy for her osteomyelitis. Her PET scan back in August 2021 did not show any signs of metastasis.She did undergo multiple units of radiation, but she did not get systemic chemotherapy due to persistent neutropenia after 1 round of systemic chemotherapy. From the culture in the emergency room she was toxin positive for C. difficile and antigen positive for C. difficile A/B.She was on ciprofloxacin and Flagyl and was started on oral vancomycin on 125 mg p.o. every 6 hours.She denies any abdominal pain. She has had to empty her 250 cc bag approximately [address] 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 Gallstone History of radiation therapy Hypertension Ileus Infection Large cell lymphoma MCI (mild cognitive impairment) Myocardial infarct Neuropathic pain Osteomyelitis of pelvis Paraplegia Paraplegia Paraplegia Pressure sore Pressure ulcer of sacral region, stage 4 Pressure ulcer of sacral region, unstageable UTI (urinary tract infection) Home Medications Eliquis 5 mg PO BID 30 Days #60 tab 07/20/21 [Rx Last Taken 10/06/21] losartan 100 mg PO DAILY 10/07/21 [History Last Taken 10/06/21] amiodarone 200 mg tablet 200 mg PO DAILY@1400 tab 12/12/21 [History Last Taken Unknown] gabapentin 100 mg capsule 100 mg PO BID 12/12/21 [History Last Taken Unknown] metoclopramide HCl 10 mg tablet 5 mg PO TID tab 12/12/21 [History Last Taken Unknown] metoprolol succinate 50 mg tablet,extended release 24 hr 50 mg PO BID tab 12/12/21 [History Last Taken Unknown] Lactobacillus acidophilus [Probiotic] 10,000 mmu cells PO DAILY@1400 01/19/22 [History Last Taken Unknown] atorvastatin 40 mg PO QHS 01/20/22 [History Last Taken Unknown] Allergy/AdvReac Type Severity Reaction Status Date / Time prednisone Allergy Intermediate atrial Verified 01/19/22 18:32 fibrillation Family History Father CHF (congestive heart failure) Myocardial infarction Mother CAD (coronary artery disease) Alzheimer disease Surgical History H/O Spinal surgery History of cholecystectomy Hx of CABG S/P cholecystectomy S/P excisional debridement Social History household members: family housing: house number of children: 5 Smoking Status: Never smoker alcohol intake: never substance use type: does not use what type of physical activity do you participate in: other details: leg therapy/hand weights frequency: 5-6 times per week chris/evangelical: Presybeterian ROS Gastrointestinal Gastrointestinal: Reports diarrhea Physical Exam Const alert General Appearance: cooperative Orientation / Consciousness: oriented to person HEENT hearing grossly normal bilaterally Head and Scalp: normal to inspection Face and Sinus: face symmetric Nose: external nose normal Mouth: oral and palatal mucosa normal Eyes conjunctivae normal General Eye: normal appearance of both eyes Neck full ROM General: normal visual inspection Lymph Lymphatic: no lymphadenopathy noted Chest inspection of chest normal and palpation of chest normal Chest: symmetrical chest wall rise Resp normal respiratory effort Effort and Inspection: able to speak in complete sentences Cardio regular rate GI non-distended GI Narrative: Normal appearing colostomy with normal pharynx stoma without excoriation Percussion: normal to percussion Rectal Exam: deferred Neuro Speech: speech normal Gait (Neuro): normal gait Medical Records Data Medical Nutrition Assessment Dietitian: Malnutrition Criteria Met Start: 01/20/22 10:58 Freq: Status: Active Protocol: Document 01/20/22 10:58 AG (Rec: 01/20/22 10:58 [id number]) Nutrition Malnutrition Evidence of Malnutrition Exists Yes Malnutrition (severe): Chronic Evidenced By Suboptimal Energy Intake ( Severe),Weight Loss (Severe) Clinical Problem Chronic Disease or Condition Related Malnutrition Etiology severe chronic malnutrition r/ t inadequate energy intake w/ increased nutrient needs d/t cancer, wound, osteomyelitis Signs/Symptoms as evidenced by estimated PO intake meeting <75% of estimated energy needs >3 months; unintentional wt loss of 70.7#/36% x 11 months. Status Active Problem Recommendation Dietitian Recommendations/Changes will change to regular diet as tolerated; if difficulties tolerating regular diet, recommend transitional diet until diarrhea, GI dysfunction improves. Continue 120mL ensure enlive 4x/day w/medpass d/t malnutrition and wound Lab / Micro Data Result Diagrams: 01/20/22 06:40 01/20/22 06:40 Labs: Laboratory Results - last 24 hr 01/19/22 19:55: WBC 13.0 H, RBC 4.76, Hgb 13.4, Hct 41.5, MCV 87.2, MCH 28.2, MCHC 32.3, RDW Std Deviation 55.1 H, RDW Coeff of Ivory 17.1 H, Plt Count 266, MPV 9.8, Immature Gran % (Auto) 0.400, Neut % (Auto) 71.3 H, Lymph % (Auto) 18.3 L, [place] % (Auto) 8.7, Eos % (Auto) 1.0, Baso % (Auto) 0.3, Absolute Neuts (auto) 9.3 H, Absolute Lymphs (auto) 2.37, Nucleated RBC % 0 01/19/22 19:55: Sodium 138, Potassium 3.9, Chloride 106, Carbon Dioxide 27.0, Anion Gap 5, BUN 7, Creatinine 0.38 L, Estim Creat Clear Calc 42.39, Est GFR (MDRD) Af Amer 214, Est GFR (MDRD) Non-Af 177, BUN/Creatinine Ratio 18.6, Glucose 91, Calcium 8.6, Total Bilirubin 0.50, AST 36, ALT 20, Alkaline Phosphatase 72, Total Protein 5.4 L, Albumin 2.0 L, Globulin 3.4, Albumin/Globulin Ratio 0.6 L 01/20/22 06:40: WBC 14.4 H, RBC 4.21, Hgb 11.8 L, Hct 36.6 L, MCV 86.9, MCH 28.0, MCHC 32.2, RDW Std Deviation 54.6 H, RDW Coeff of Ivory 17.2 H, Plt Count 237, MPV 9.5, Immature Gran % (Auto) 0.500, Neut % (Auto) 73.1 H, Lymph % (Auto) 16.5 L, [place] % (Auto) 9.2, Eos % (Auto) 0.4, Baso % (Auto) 0.3, Absolute Neuts (auto) 10.5 H, Absolute Lymphs (auto) 2.37, Nucleated RBC % 0 01/20/22 06:40: Sodium 137, Potassium 3.5, Chloride 107, Carbon Dioxide 24.0, Anion Gap 6, BUN 6 L, Creatinine 0.28 L, Estim Creat Clear Calc 40.68, Est GFR (MDRD) Af Amer 300, Est GFR (MDRD) Non-Af 248, BUN/Creatinine Ratio 21.4 H, Glucose 96, Calcium 8.4 L Micro: Microbiology 01/19/22 20:20 Stool Enteric Bacteriology - Preliminary 01/19/22 20:20 Stool C. difficile GDH Antigen & Toxins - Final Toxigenic C. difficile Radiology Impression Abdomen/Pelvis CT 01/19/22 20:49 IMPRESSION: Acute pancolitis. Multiple layering stones in the urinary bladder. Findings compatible with distal sacral osteomyelitis. Electronically Signed: Celestine Gtz MD at 21:35 EDT , Assessment & Plan Assessment/Plan (1) Clostridium difficile colitis: PLAN: Recommend 14 days of vancomycin 125 mg p.o. every 6 hours. Also recommend a probiotic twice a day and if her stools are not thickening up by day 5 she will need cholestyramine once a day. I told the daughter and is at the bedside that if at the end of the 14 days she still has liquid stools then we would continue vancomycin 125 mg p.o. every 12 hours for the next 7 days. At this time she is not have any abdominal pain and does not appear to be experiencing severe C. difficile colitis. Objectively she has no fever, her white blood cell count is decreasing, her hemoglobin is not decreasing. She is having decreased amount of bowel movements. I would not give her dual therapy with Flagyl at this time. She should be in the hospital for 72 hours prior to discharge. Charges/Coding Visit Charges Inpatient E&M: 51100 Init Hosp L3
[2022-01-20] MEDS: 0.9% Saline Lock 10 ML Syringe IV (22:23)
[2022-01-20] MEDS: Atorvastatin Calcium 40 MG Tablet PO (22:30)
[2022-01-20] MEDS: Acetaminophen 325 MG Tablet 650 MG PO (23:20)
[2022-01-21] VITALS (9 sets, daily range): BP systolic 98–115; BP diastolic 48–65; PULSE 72–82; RESP 18; TEMP 36.4–37.6; O2SAT 95–99
[2022-01-21 06:59] LABS: Absolute Lymphocyte Count 2.26 X10^3/uL (0.83-4.51); Absolute Neutrophil Count 10.6 X10^3/uL (2.0-7.7); Basophil# 0.03 X10^3/uL; Basophil% 0.2 % (0-1); Eosinophils% 0.7 % (0-5); Hematocrit 35.3 % (37-47); Hemoglobin 11.4 g/dL (12.0-15.0); Lymphocyte # 2.26 X10^3/ul (0.83-4.51); Lymphocyte % 15.6 % (19-41); Mean Corp Hgb Conc 32.3 g/dL (32-36); Mean Corpuscular Volume 86.7 fL (81-99); Mean Platelet Vol. 10.1 fl (6.2-12.0); Monocyte# 1.42 X10^3/uL; Monocyte% 9.8 % (0-10); NRBC Flagged by Analyzer 0 % (0-5); Neutrophil % 73.1 % (47-70); Platelet Count 234 K/mm3 (150-450); RBC Distribution Width SD 54.5 fl (35.1-43.9); Red Blood Count 4.07 M/mm3 (4.2-5.4); White Blood Count 14.5 K/mm3 (4.4-11.0)
[2022-01-21] MEDS: Vancomycin 125 MG/5 ML Susp PO.SYRINGE PO ×4 (07:05→22:52)
[2022-01-21] MEDS: Metoclopramide 5 MG TABLET PO ×3 (07:05→22:30)
[2022-01-21 07:36] LABS: Anion Gap 5 (5-15); BUN 10 mg/dL (7-18); BUN/Creat Ratio 32.9 RATIO (10-20); Calcium,Total 8.4 mg/dL (8.5-10.1); Chloride 108 mmol/L (98-107); EST Glomerular Filtration Rate 226 mL/min (>60); Est Glom Filt Rate - Afr Amer 273 mL/min (>60); Estimated Creatinine Clearance 40.68 ml/min; Glucose 81 mg/dL (74-106); Potassium 3.8 mmol/L (3.5-5.1); Sodium Level 138 mmol/L (136-145)
[2022-01-21] MEDS: Gabapentin 100 MG Capsule PO ×2 (09:42→22:30)
[2022-01-21] MEDS: Amiodarone 200 MG Tablet PO (09:42)
[2022-01-21] MEDS: APIXABAN 5 MG TABLET PO ×2 (09:42→22:30)
--- NOTE | 2022-01-21 12:15 | PN.HOSP_ITS ---
Subjective Subjective Doing well, tolerating p.o. intake. Very minimal abdominal pain and she states that her bowel function has improved considerably Objective Data Objective Data Vital Signs: Vital Signs Temp Pulse Resp BP Pulse Ox 97.6 F L 72 18 98/55 L 99 01/21/22 09:36 01/21/22 09:41 01/21/22 09:36 01/21/22 09:41 01/21/22 09:36 Oxygen Delivery Method Room Air Weight: 124 lb 5.451 oz Body Mass Index (BMI) 20.7 Intake & Output: Intake and Output for Last 24 Hours 01/20/22 01/21/22 01/22/22 03:59 03:59 03:59 Intake Total 1300 / 1300 840 / 840 Output Total 2250 / 2250 Balance 1300 / 1300 -1410 / -1410 Medical Nutrition Assessment Dietitian: Malnutrition Criteria Met Start: 01/20/22 10:58 Freq: Status: Active Protocol: Document 01/20/22 10:58 AG (Rec: 01/20/22 10:58 [id number]) Nutrition Malnutrition Evidence of Malnutrition Exists Yes Malnutrition (severe): Chronic Evidenced By Suboptimal Energy Intake ( Severe),Weight Loss (Severe) Clinical Problem Chronic Disease or Condition Related Malnutrition Etiology severe chronic malnutrition r/ t inadequate energy intake w/ increased nutrient needs d/t cancer, wound, osteomyelitis Signs/Symptoms as evidenced by estimated PO intake meeting <75% of estimated energy needs >3 months; unintentional wt loss of 70.7#/36% x 11 months. Status Active Problem Recommendation Dietitian Recommendations/Changes will change to regular diet as tolerated; if difficulties tolerating regular diet, recommend transitional diet until diarrhea, GI dysfunction improves. Continue 120mL ensure enlive 4x/day w/medpass d/t malnutrition and wound Lab / Micro Data Result Diagrams: 01/21/22 05:41 01/21/22 05:41 Labs: Laboratory Results - last 24 hr 01/21/22 05:41: WBC 14.5 H, RBC 4.07 L, Hgb 11.4 L, Hct 35.3 L, MCV 86.7, MCH 28.0, MCHC 32.3, RDW Std Deviation 54.5 H, RDW Coeff of Ivory 17.0 H, Plt Count 234, MPV 10.1, Immature Gran % (Auto) 0.600, Neut % (Auto) 73.1 H, Lymph % (Auto) 15.6 L, [place] % (Auto) 9.8, Eos % (Auto) 0.7, Baso % (Auto) 0.2, Absolute Neuts (auto) 10.6 H, Absolute Lymphs (auto) 2.26, Nucleated RBC % 0 01/21/22 05:41: Sodium 138, Potassium 3.8, Chloride 108 H, Carbon Dioxide 25.0, Anion Gap 5, BUN 10, Creatinine 0.30 L, Estim Creat Clear Calc 40.68, Est GFR (MDRD) Af Amer 273, Est GFR (MDRD) Non-Af 226, BUN/Creatinine Ratio 32.9 H, Glucose 81, Calcium 8.4 L Micro: Microbiology 01/19/22 20:20 Stool Enteric Bacteriology - Preliminary 01/19/22 20:20 Stool C. difficile GDH Antigen & Toxins - Final Toxigenic C. difficile Physical Exam Narrative Const alert, oriented x3 and no apparent distress General Appearance: cooperative HEENT normocephalic and moist oral mucous membranes Eyes PERRL, EOMs intact bilaterally and conjunctivae normal Neck supple and no JVD Resp normal respiratory effort, no retractions, no use of accessory muscles and clear to auscultation bilaterally Auscultation: Negative for crackles, rales, rhonchi or wheezes Cardio regular rate, regular rhythm, S1 normal heart sound, S2 normal heart sound and no murmurs GI soft to palpation, non-tender and non-distended; Negative for hepatosplenomegaly GI Narrative: Colostomy intact Extremity no clubbing, cyanosis or edema Skin no rashes or lesions noted Neuro no focal motor deficits and no sensory deficits noted Psych affect normal Appearance: appropriate Assessment & Plan Assessment/Plan (1) Colitis: (2) Pressure ulcer of sacral region, stage 4: PLAN: 1. C. difficile colitis ?CT scan of the abdomen showed a pancolitis and testing is consistent with C. difficile ?Continue with p.o. vancomycin ?We will continue to monitor CBCs and BMPs ?She can have a regular diet 2. History of a stage IV decubitus ulcer which necessitated her ostomy/paraplegia ?She had a colostomy placed to help heal her decubitus ulcer given her paraplegia ?Continue with wound care, with wet-to-dry dressings to the decubitus area. 3. A. fib/HTN/HLD ?Blood pressures are stable ?Continue with her home blood pressure and A. fib medications ?Continue with Eliquis 4. CKD 3 A ?Creatinine is stable and at baseline ?We will continue to monitor DVT: Eliquis Charges/Coding Visit Charges Inpatient E&M: 41776 Subs Hosp L2
[2022-01-21] MEDS: Atorvastatin Calcium 40 MG Tablet PO (22:30)
[2022-01-21] MEDS: Acetaminophen 325 MG Tablet 650 MG PO (22:31)
[2022-01-21] MEDS: 0.9% Saline Lock 10 ML Syringe IV (22:52)
[2022-01-22 05:34] VITALS: BP 124/73; PULSE 83; RESP 18; TEMP 36.4; O2SAT 98
[2022-01-22] MEDS: Metoclopramide 5 MG TABLET PO (05:35)
[2022-01-22] MEDS: Vancomycin 125 MG/5 ML Susp PO.SYRINGE PO ×2 (05:35→12:44)
[2022-01-22 06:26] LABS: Absolute Lymphocyte Count 2.35 X10^3/uL (0.83-4.51); Basophil# 0.02 X10^3/uL; Basophil% 0.2 % (0-1); Eosinophil# 0.16 X10^3/uL; Eosinophils% 1.3 % (0-5); Hematocrit 36.4 % (37-47); Hemoglobin 11.8 g/dL (12.0-15.0); Lymphocyte # 2.35 X10^3/ul (0.83-4.51); Lymphocyte % 19.7 % (19-41); Mean Corp Hgb Conc 32.4 g/dL (32-36); Mean Corpuscular Hgb 28.4 pg (27.0-32.0); Mean Corpuscular Volume 87.5 fL (81-99); Mean Platelet Vol. 9.8 fl (6.2-12.0); Monocyte# 1.28 X10^3/uL; Monocyte% 10.7 % (0-10); NRBC Flagged by Analyzer 0 % (0-5); Neutrophil # 8.03 X10^3/uL (2.7-7.7); Neutrophil % 67.5 % (47-70); Platelet Count 227 K/mm3 (150-450); RBC Distribution Width CV 17.1 % (11.6-14.6); RBC Distribution Width SD 55.1 fl (35.1-43.9); Red Blood Count 4.16 M/mm3 (4.2-5.4); White Blood Count 11.9 K/mm3 (4.4-11.0)
--- NOTE | 2022-01-22 09:09 | PCM.DC ---
Discharge Instructions Diet Discharge Diet: No restrictions Activity Discharge Activity: Return to Normal Activity Dressing / Incision Call your doctor if you observe: Fever of 101 or Higher, Shortness of breath, Dizziness, Fainting spells, Swelling in the ankles, Chest pain and Increased palpitations (irregular heartbeat) Follow Up Care Test Results: Test results from this visit will be discussed in further detail at your follow-up appointment, if applicable. Discharge Plan Admission Admit Date/Time: 01/19/22 22:42 Attending Provider: Jorge Schneider Primary Care Provider: Jennie Peng Consulting Providers: Tom Meza Discharge Orders/Prescriptions Prescriptions: New Firvanq 25 mg/mL Recon Soln 125 mg PO Q6 12 Days Qty: 240 RF: 0 Continued metoprolol succinate 50 mg tablet extended release 24 hr 50 mg PO BID RF: 0 gabapentin 100 mg capsule 100 mg PO BID RF: 0 Eliquis 5 mg tablet 5 mg PO BID 30 Days Qty: 60 RF: 0 losartan 100 mg tablet 100 mg PO DAILY RF: 0 metoclopramide HCl 10 mg tablet 5 mg PO TID RF: 0 amiodarone 200 mg tablet 200 mg PO DAILY@1400 RF: 0 Probiotic 10 billion cell Capsule 10,000 mmu cells PO DAILY@1400 RF: 0 atorvastatin 40 mg tablet 40 mg PO QHS RF: 0 Referrals / Follow Up: Jennie Peng MD [Primary Care Provider] - Within 1 Week Disposition Disposition (needs filled in before D/C Order can be placed): Home Health Service
--- NOTE | 2022-01-22 09:12 | PCM.DC.SUM ---
Providers Date of Admission: 01/19/22 Primary Care Physician: Dr. Jennie Peng MD Consultations 01/20/22 00:12 Consult: Gastroenterology Routine Consulting Provider: Ra Susanahsaan Reason for Consult: Colitis EMERGENT Consult: No MD Notified: Yes Date Notified: 01/20/22 Time Notified: 08:19 Method of Notification: Text Consult: Onc/Wound/physician general practice Routine Comment: Reason for Consult:: Colostomy care Reason For Visit: ACUTE COLITIS Diagnosis Discharge Diagnosis (1) Colitis: Status: Acute Code(s): K52.9 - Noninfective gastroenteritis and colitis, unspecified (2) Pressure ulcer of sacral region, stage 4: Status: Acute Code(s): L89.154 - Pressure ulcer of sacral region, stage 4 Medications at Discharge Home Medications Eliquis 5 mg PO BID 30 Days #60 tab 07/20/21 losartan 100 mg PO DAILY 10/07/21 amiodarone 200 mg tablet 200 mg PO DAILY@1400 tab 12/12/21 gabapentin 100 mg capsule 100 mg PO BID 12/12/21 metoclopramide HCl 10 mg tablet 5 mg PO TID tab 12/12/21 metoprolol succinate 50 mg tablet,extended release 24 hr 50 mg PO BID tab 12/12/21 Probiotic 10,000 mmu cells PO DAILY@1400 01/19/22 atorvastatin 40 mg PO QHS 01/20/22 vancomycin [Firvanq] 125 mg PO Q6 12 Days #240 ml 01/22/22 Hospital Course Operations None Procedures None Summary of Care Provided Minutes Spent on Discharge: 37 Hospital Course: Per HPI: CHRISTOPHER CORONEL, is a 76 F with a significant history of stage IV decubitus ulcer with chronic osteomyelitis of pelvis; atrial fibrillation on amiodarone and Eliquis; paraplegia and colostomy who presents to the emergency department with 2-week history of progressively worsening loose stools. Patient previously had pain around the colostomy but that has resolved. Also patient had some blood oozing from her colostomy but that has also resolved. She denies any nausea or vomiting. She denies fever or chills. She denies anorexia Because of her symptoms including oozing blood from her ostomy site patient saw General Surgery Dr. Machado on 01/17/2022. Hospital Course: 1. C. difficile colitis/stage IV decubitus ulcer status post colostomy?76-year-old female with history of stage IV decubitus ulcer with chronic osteomyelitis of her pelvis who also has paraplegia and a colostomy in place presented to the hospital with increased weakness and frequent loose stools. Testing did come back positive for C. difficile colitis and she was started on p.o. vancomycin. Her white count has improved from a peak of 14.5 down to 11 and her stools while still soft are no longer loose. She feels much better today and would like to go home. I did discuss with her the plan for discharge she expressed understanding of the risk benefits of going home and still wants to go home today. She does have significant familial assistance at home therefore would not consider a SNF at this time. She will need to continue with home health care and wound care of this decubitus ulcer. I recommend that she follow-up with her PCP in 3 to 5 days and she will be discharged on 12 more days of p.o. vancomycin, if she continues to have loose stools at the end of this course she will need to contact her primary care physician to extend the course by another week. 2. Atrial fibrillation, hypertension, hyperlipidemia, CKD 3 A are all chronic medical conditions which complicate her care. Her home medications were continued where appropriate Physical Exam Const alert, oriented x3 and no apparent distress General Appearance: cooperative HEENT normocephalic and moist oral mucous membranes Eyes PERRL, EOMs intact bilaterally and conjunctivae normal Neck supple and no JVD Resp normal respiratory effort, no retractions, no use of accessory muscles and clear to auscultation bilaterally Auscultation: Negative for crackles, rales, rhonchi or wheezes Cardio regular rate, regular rhythm, S1 normal heart sound, S2 normal heart sound and no murmurs GI soft to palpation, non-tender and non-distended; Negative for hepatosplenomegaly GI Narrative: Colostomy intact Extremity no clubbing, cyanosis or edema Skin no rashes or lesions noted Neuro no focal motor deficits and no sensory deficits noted Psych affect normal Appearance: appropriate Medical Records Data Medical Nutrition Assessment Dietitian: Malnutrition Criteria Met Start: 01/20/22 10:58 Freq: Status: Active Protocol: Document 01/20/22 10:58 AG (Rec: 01/20/22 10:58 [id number]) Nutrition Malnutrition Evidence of Malnutrition Exists Yes Malnutrition (severe): Chronic Evidenced By Suboptimal Energy Intake ( Severe),Weight Loss (Severe) Clinical Problem Chronic Disease or Condition Related Malnutrition Etiology severe chronic malnutrition r/ t inadequate energy intake w/ increased nutrient needs d/t cancer, wound, osteomyelitis Signs/Symptoms as evidenced by estimated PO intake meeting <75% of estimated energy needs >3 months; unintentional wt loss of 70.7#/36% x 11 months. Status Active Problem Recommendation Dietitian Recommendations/Changes will change to regular diet as tolerated; if difficulties tolerating regular diet, recommend transitional diet until diarrhea, GI dysfunction improves. Continue 120mL ensure enlive 4x/day w/medpass d/t malnutrition and wound Weight / BMI Weight Weight: 124 lb 5.451 oz Body Mass Index (BMI) 20.7 ABG / Lab / Microbiology Data Result Diagrams: 01/22/22 06:00 01/21/22 05:41 Laboratory: Laboratory Results - last 24 hr 01/22/22 06:00: WBC 11.9 H, RBC 4.16 L, Hgb 11.8 L, Hct 36.4 L, MCV 87.5, MCH 28.4, MCHC 32.4, RDW Std Deviation 55.1 H, RDW Coeff of Ivory 17.1 H, Plt Count 227, MPV 9.8, Immature Gran % (Auto) 0.600, Neut % (Auto) 67.5, Lymph % (Auto) 19.7, [place] % (Auto) 10.7 H, Eos % (Auto) 1.3, Baso % (Auto) 0.2, Absolute Neuts (auto) 8.0 H, Absolute Lymphs (auto) 2.35, Nucleated RBC % 0 Microbiology: Microbiology 01/19/22 20:20 Stool Enteric Bacteriology - Final 01/19/22 20:20 Stool C. difficile GDH Antigen & Toxins - Final Toxigenic C. difficile 01/19/22 20:20 Stool C. difficile DNA Amplification - Final D/C Instructions Discharge Diet: No restrictions Call your doctor if you observe: Fever of 101 or Higher, Shortness of breath, Dizziness, Fainting spells, Swelling in the ankles, Chest pain and Increased palpitations (irregular heartbeat) Meaningful Use Info Meaningful Use Diagnoses (Choose all that apply): None applicable Discharge Plan Admission Admit Date/Time: 01/19/22 22:42 Attending Provider: Jorge Schneider Primary Care Provider: Jennie Peng Consulting Providers: Friend,Tom Discharge Orders/Prescriptions Prescriptions: New Firvanq 25 mg/mL Recon Soln 125 mg PO Q6 12 Days Qty: 240 RF: 0 Continued metoprolol succinate 50 mg tablet extended release 24 hr 50 mg PO BID RF: 0 gabapentin 100 mg capsule 100 mg PO BID RF: 0 Eliquis 5 mg tablet 5 mg PO BID 30 Days Qty: 60 RF: 0 losartan 100 mg tablet 100 mg PO DAILY RF: 0 metoclopramide HCl 10 mg tablet 5 mg PO TID RF: 0 amiodarone 200 mg tablet 200 mg PO DAILY@1400 RF: 0 Probiotic 10 billion cell Capsule 10,000 mmu cells PO DAILY@1400 RF: 0 atorvastatin 40 mg tablet 40 mg PO QHS RF: 0 Referrals / Follow Up: Jennie Peng MD [Primary Care Provider] - Within 1 Week Disposition Disposition (needs filled in before D/C Order can be placed): Home Health Service Charges/Coding Visit Charges Inpatient E&M: 59970 Disch Hosp
[2022-01-22 10:08] VITALS: BP 112/60; PULSE 89; RESP 16; TEMP 36.9; O2SAT 96
[2022-01-22] MEDS: Amiodarone 200 MG Tablet PO (10:11)
[2022-01-22] MEDS: APIXABAN 5 MG TABLET PO (10:11)
[2022-01-22 10:12] VITALS: PULSE 89
[2022-01-22] MEDS: Metoprolol(XL)Succ 50 MG Tablet PO (10:12)
[2022-01-22] MEDS: Losartan Potassium 100 MG Tablet PO (10:12)
[2022-01-22] MEDS: Gabapentin 100 MG Capsule PO (10:12)
[2022-01-22 10:15] VITALS: O2SAT 97
--- NOTE | 2022-01-22 11:00 | WOUNDNOTE ---
Colostomy appliance is intact. there is a small amount of unformed stool noted in the appliance. states it has thickened up. states he changes the appliance once a week. does not feel the appliance needs changed at this time. plans to change the appliance later in the week. no further needs voiced at this time.
--- NOTE | 2022-01-22 11:07 | WOUNDNOTE ---
wound photo: sacrum
--- NOTE | 2022-01-22 12:12 | CASEMGMT ---
Addendum entered by Fatuma Zaman 01/22/22 14:22: Hospitalist changed strength of firvanq and sent to [facility] pharmacy. TC to [place] in pharmacy, cost is $169.98. He is aware pt wishes to have be delivered to room. TC to [place] to make aware pt filled rx elsewhere. Addendum entered by Fatuma Zaman 01/22/22 12:55: TC to [facility], they do not have the Firvanq in stock. Original Note: TC to [place] pharmacy, they will not have the firvanq until tomorrow afternoon. [facility] states that it will cost $162.15. TC to [facility], they do not have the med in stock either. RN CM in to pt room to make aware of cost and availability of med. Notified hospitalist. TC to [facility], spoke with Cherelle, she is aware that pt will dc today. Faxed referral info with dc summary and dc instructions at this time.
--- NOTE | 2022-01-22 12:13 | CHAPLAIN ---
Type of Pastoral Visit _x__ Initial Visit ___ Follow-up Visit ___ On-call Visit ___ General Patient Visit ___ Spiritual Assessment ___ Family Conference ___ Bereavement ___ Rapid Response ___ Code Blue ___ Other (describe below) Pastoral Care Referral From _x__ Patient ___ Family ___ Nurse ___ Physician ___ Teenage Program Director ___ Director Global [employer] ___ Other (describe below) Sacrament/Intervention _x__ Active listening ___ Anointing ___ Zoroastrianism ___ Bereavement ___ Communion ___ Latasha exploration ___ ___ Life review _x__ Prayer ___ Reconciliation ___ Sacrament of Sick ___ Supportive presence ___ Wedding ___ Other (describe below) Pastoral Comments patient remembers this fur dyer from previous admission; family members are in room; pt smiles and says she is going home today; pt encouraged and family state that 'things are going pretty well at home'; patient says she just needs a prayer; no other concerns
== END 2022-01-22 14:53 | disposition home health service (06) | DRG 371 ==
LOC: ED 22:43 → MS3 22:58
PROVIDERS: Admitting Provider Hospitalist; Emergency Provider Emergency Medicine; PCP Student in an Organized Health Care Education/Training Program; Visit Provider Family Medicine
DX: A04.72 Enterocolitis due to Clostridium difficile, not specified as recurrent (principal); L89.154 Pressure ulcer of sacral region, stage 4; L89.224 Pressure ulcer of left hip, stage 4; C85.10 Unspecified B-cell lymphoma, unspecified site; G82.20 Paraplegia, unspecified; M46.28 Osteomyelitis of vertebra, sacral and sacrococcygeal region; K51.00 Ulcerative (chronic) pancolitis without complications; I48.91 Unspecified atrial fibrillation; N18.31 Chronic kidney disease, stage 3a; Z93.3 Colostomy status; I25.10 Atherosclerotic heart disease of native coronary artery without angina pectoris; E78.5 Hyperlipidemia, unspecified; I12.9 Hypertensive chronic kidney disease with stage 1 through stage 4 chronic kidney disease, or unspecified chronic kidney disease; I25.2 Old myocardial infarction; Z79.01 Long term (current) use of anticoagulants; Z79.899 Other long term (current) drug therapy
CPT/HCPCS: 36415; 74177; 80048; 80053; 85025; 87177; 87209; 87493; 87506; 97802; 99284; J7030; J7050; Q9967; A4216; J0744

== ENCOUNTER 2022-02-12 10:45 | Outpatient (RCR) | payer OTHER, SELFPAY ==
[2022-01-19 00:33] VITALS: BP 124/70; PULSE 67; RESP 18; TEMP 36.2; BMI 25.9
[2022-01-29 10:20] VITALS: BP 117/62; PULSE 66; RESP 16; TEMP 36.3; BMI 25.9
--- NOTE | 2022-01-29 14:42 | PCM.WC.PN ---
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 She had progressive paraplegia. She went to TCU for acute rehab for this progressive paraplegia. During that time she had worsening sacral pressure sore with skin necrosis. Surgery 05/15/21 - Excision necrotic sacral pressure sore, Stage IV, with partial ostectomy for osteomyelitis. Pathology from surgery on 05/15/21 of bone showed acute osteomyelitis. Operative tissue culture positive for Escherichia coli, Klebsiella, Vanc. Resist. E. gallinarum, Vanc. Resist. E. faecalis. Operative bone culture positive for Escherichia coli, Vanc. Resist. E. faecalis, Vanc. Resist. E. gallinarum. She was on Meropenem, Vancomycin has been stopped and Linezolid started. ID is managing. Radiation from 05/17/21 - 06/12/21 18 treatments to T4-T7 area including paraspinal region. 06/06/21- Laparoscopic sigmoid colectomy with creation of end colostomy for fecal diversion. Was in TCU 06/08/21-07/20/21. Patient had a recent hospitalization on 01/19/2022. She states she had C. difficile. She was discharged on 01/22/2022. While she was hospitalized she developed a new ulcer on her right ischium. Has dry scabbing. Wound Care - Sacral ulcer Aquacel- Ag topped with gauze or ABD daily. The new right ischium has a blackened scab on it. It is dry we will keep it as a biologic dressing and cover with Mepilex every other day. The left ischial ulcer is healed. Massage with lotion at least once daily. Place A&D ointment or aquaphore to laney wound to moisturize and act as a skin barrier. She denies any nausea and vomiting. She states that her appetite is improving and she is drinking extra protein shakes. Progress of Wound: Sacral ulcer is stable, base of wound is beefy pink. Left ischial ulcer remains healed. New right ischial ulcer has black scabbing that is unable to be removed with debridement. It is dry. There is nothing to culture. We will continue to monitor this area very closely. Objective Data Objective Data Vital Signs: Vital Signs Temp Pulse Resp BP 97.3 F L 66 16 117/62 01/29/22 10:20 01/29/22 10:20 01/29/22 10:20 01/29/22 10:20 Oxygen Delivery Method Room Air Weight: 155 lb 11.464 oz Body Mass Index (BMI) 25.9 Charges/Coding Addendum Addendum: 61161?right ischial ulcer Procedures Integumentary 111xxx-113xx: [id number] Casie musc/fascia 20 sq cm/< (Sacral ulcer) Add On Codes: 21679 Casie musc/fascia add-on Physical Exam Const alert and oriented x3 General Appearance: cooperative HEENT normocephalic Resp normal respiratory effort Cardio regular rate GI non-tender Palpation: soft Extremity normal capillary refill Skin Wound Narrative: Sacral ulcer is beefy pink and stable. No bone exposure. Left ischial ulcer remains healed. New right ischial ulcer has dry scabbing which am unable to remove. It is dry, will keep as a biologic dressing. There seems to be some depth under the ulcer, will continue to monitor closely. Psych Appearance: well kempt Debridement Note Debridement Note Wound debrided: Sacral ulcer Wound Grade/Stage: Stage IV Type of Debridement: Excisional debridement Anesthesia Used: 4% Lidocaine Solution and 5% Lidocaine Gel Depth: Down to and including healthy tissue, in the subcutaneous layer and to muscle Percentage of wound debrided: 100 Instrument Used: 7mm curette Tissue Removed: Nonviable tissue and slough into the muscle Severity: Fat Layer Exposed Bleeding Controlled with: Pressure Patient tolerated procedure: Patient tolerated procedure well Post-Debridement Measurements and Additional Note: Post-Debridement Measurements/Treatment - Nurse 1 - General Ulcer Assessment Start: 01/29/22 10:20 Freq: Status: Active Protocol: KRANTHI Activity Type Activity Date Activity User E-Sign Co-Sign Detail Recorded Client Recorded Date Recorded By Document 01/29/22 10:20 [facility] [id number] 01/29/22 10:38 [facility] 01/29/22 10:20 - Today's Visit Information Type of service Follow-up Visit (Physician/TRADE SHOW MANAGER ) Arrival Mode Wheelchair Transfer Assistance Will Lift Accompanied by daughter and husb Patient Identification Verified (Name & Yes ) Patient Requires Transmission-Based No Precautions Height and Weight Body Mass Index (BMI) 25.9 BMI Classification Overweight Vital Signs Temperature (97.8 F-99.1 F) 97.3 F L Temperature Source Temporal Pulse Rate (60-100) 66 Pulse Location Monitor Respiratory Rate (12-18) 16 Respiratory rate source Observation Oxygen Delivery Method Room Air Blood Pressure (90/60-120/80) 117/62 Blood Pressure Mean (mm Hg) 80 Source Monitor Position Sitting Blood Pressure Location Right Arm History Since Last Visit- (Skip if this is Patient's initial visit) Have you changed medications since your No last visit? Any new allergies or adverse reactions No Had a fall/change in ADL's that may No increase risk of falls Signs or symptoms of abuse and/or No neglect since last visit Have you been in the hospital since your Yes last visit? Has dressing in place as prescribed Yes Has compression in place as prescribed N/A Has offloadiing in place as prescribed N/A Experienced any changes in pain level or No management Left Footwear Slipper Right Footwear Slipper Pain Scale: 0-10 Numeric Is Patient Pain Free? Yes WC - Nurse 1 - General Ulcer Measurement Start: 01/29/22 10:20 Freq: Status: Active Protocol: Activity Type Activity Date Activity User E-Sign Co-Sign Detail Recorded Client Recorded Date Recorded By Document 01/29/22 10:20 [facility] [id number] 01/29/22 10:38 [facility] 01/29/22 10:20 Wound Center Nurse 1 #3- R BUTTOCK -Combined with other wound No -Current Size (cm) - Length 1 -Current Size (cm) - Width 3.5 -Current Size (cm) - Depth 0.1 -Total Square Cm 3.5 -Date of Last Picture (Recall this 01/29/22 field) -Photo Taken Yes -Epithelialization None Present -Tunneling No -Undermining/Tunneling No -Circular Undermining No -Exudate Amt Small -Exudate Type Serosanguineous -Wound Margin Distinct, Outline Attached -Granulation Amt None Present (0 %) -Slough/Fibrin Yes -Necrosis Amt Large (67-100%) -Necrotic Tissue Type Adherent Slough -Texture (Laney-wound Skin Appearance) Assessed -Moisture (Laney-wound Skin Appearance) Assessed -Color (Laney-wound Skin Appearance) Assessed, Erythema -Temperature (Laney-wound Skin No Abnormality Appearance) (Pt Warm) -Tenderness on Palpation (Laney-wound Yes Skin Appearance) -Ulcer Cleansing Soap and Water -Foul Odor after Cleansing No -Anesthetic Used 5% Lidocaine Gel #1 Sacral -Combined with other wound No -Current Size (cm) - Length 5.4 -Current Size (cm) - Width 6.5 -Current Size (cm) - Depth 1.2 -Total Square Cm 35.10 -Date of Last Picture (Recall this 01/29/22 field) -Photo Taken Yes -Epithelialization None Present -Tunneling No -Undermining/Tunneling No -Circular Undermining No -Exudate Amt Medium -Exudate Type Serosanguineous -Wound Margin Thickened & Rolled Under -Granulation Amt Medium (34-66%) -Granulation Quality Enhaut -Slough/Fibrin Yes -Necrosis Amt Medium (34-66%) -Necrotic Tissue Type Adherent Slough -Texture (Laney-wound Skin Appearance) Assessed, Scarring -Moisture (Laney-wound Skin Appearance) Assessed -Color (Laney-wound Skin Appearance) Assessed, Erythema -Temperature (Laney-wound Skin No Abnormality Appearance) (Pt Warm) -Tenderness on Palpation (Laney-wound No Skin Appearance) -Ulcer Cleansing Soap and Water -Foul Odor after Cleansing No -Anesthetic Used 5% Lidocaine Gel WC - Nurse 2 - General Ulcer CM Notes Start: 01/29/22 10:20 Freq: Status: Active Protocol: Activity Type Activity Date Activity User E-Sign Co-Sign Detail Recorded Client Recorded Date Recorded By Document 01/29/22 11:15 [id number] 01/29/22 11:27 [facility] 01/29/22 11:15 Wound Center Nurse 2 #3- R BUTTOCK -Time 11:20 -Correct Patient Yes -Correct Side, Site, Position Yes -Correct Procedure Yes -Procedure Performed Yes -Type of Procedure Debridement -Clinical Debridement Subcutaneous -Tissue Removed Subcutaneous -Post Debridement (cm) - Length 3.5 -Post Debridement (cm) - Width 1.0 -Post Debridement (cm) - Depth 0.2 -Total Square (Post) (cm) 3.50 -Area of Debridement (cm) - Length 3.5 -Area of Debridement (cm) - Width 1.0 -Total Square (Area) (cm) 3.50 -Tunneling No -Undermining/Tunneling No -Circular Undermining No -Wound/Ulcer Outcome Not Healed -Ulcer Cleansing Rinsed/ Irrigated with Saline -Foul Odor after Cleansing No -Bioengineered Tissue No -Bleeding Controlled with Pressure -Treatment Response Procedure Tolerated Well -Offloading No -Pressure Reduction Wheelchair cushion,Other -Other Pressure Reduction Low Air loss mattress -Debridement - Subq, 1st 20sq cm Yes #1 Sacral -Time 11:20 -Correct Patient Yes -Correct Side, Site, Position Yes -Correct Procedure Yes -Procedure Performed Yes -Type of Procedure Debridement -Clinical Debridement Muscle / Fascia -Tissue Removed Muscle -Post Debridement (cm) - Length 4.6 -Post Debridement (cm) - Width 7.2 -Post Debridement (cm) - Depth 0.8 -Total Square (Post) (cm) 33.12 -Area of Debridement (cm) - Length 4.6 -Area of Debridement (cm) - Width 7.2 -Total Square (Area) (cm) 33.12 -Tunneling No -Undermining/Tunneling No -Circular Undermining No -Wound/Ulcer Outcome Not Healed -Ulcer Cleansing Rinsed/ Irrigated with Saline -Foul Odor after Cleansing No -Bioengineered Tissue No -Bleeding Controlled with Pressure -Treatment Response Procedure Tolerated Well -Offloading No -Pressure Reduction Wheelchair cushion, Mattress overlay -Debridement - Muscle / Fascia, 1st Yes 20sq cm -Debridement, Muscle/Fascia, ea addt'l 1 20sq cm or part thereof Pain Scale: 0-10 Numeric Is Patient Pain Free? Yes WC - Nurse 3 - General Ulcer D/C NN Start: 01/29/22 10:20 Freq: Status: Active Protocol: Activity Type Activity Date Activity User E-Sign Co-Sign Detail Recorded Client Recorded Date Recorded By Document 01/29/22 11:49 [facility] [id number] 01/29/22 11:50 [facility] 01/29/22 11:49 Wound Care Nurse 3 #3- R BUTTOCK -Ulcer Cleansing Rinsed/ Irrigated with Saline -Foul Odor after Cleansing No -Primary Dressing Applied Mepilex Border -Mepilex Border 1 #1 Sacral -Ulcer Cleansing Rinsed/ Irrigated with Saline -Foul Odor after Cleansing No -Primary Dressing Applied Aquacel AG 4x4 -Primary Dressing Covered/Secured with Dry Gauze, Secured with Tape,Other -Other Covering ABD -Aquacel AG 4x4 1 Treatment Response Procedure Tolerated Well Pain Scale: 0-10 Numeric Is Patient Pain Free? Yes WC - Visit Discharge Discharge Condition Stable Ambulatory Status Wheelchair Transportation Private Auto Accompanied by AND RAMAN Additional Wound Wound debrided: Ischial ulcer Laterality: Left Wound Grade/Stage: Stage III Type of Debridement: Excisional debridement Anesthesia Used: 5% Lidocaine Gel Percentage of wound debrided: 100 Instrument Used: 3mm curette Tissue Removed: Although attempted to debride the entire ulcer, unable to remove scabbing Severity: Limited To Skin Breakdown Amount of bleeding with debridement: None Assessment/Plan Assessment/Plan (1) Pressure ulcer of right ischium: CODE(S): L89.319 - Pressure ulcer of right buttock, unspecified stage (2) Paraplegia: CODE(S): G82.20 - Paraplegia, unspecified (3) Osteomyelitis of pelvis: CODE(S): M86.9 - Osteomyelitis, unspecified PLAN: Wound Care - Sacral ulcer Aquacel- Ag packed into the sacral ulcer,topped with gauze or ABD. The new right ischial ulcer has dry scabbing that acts as a biologic dressing. We will place a Mepilex dressing every other day on this area. The left ischial ulcer is healed. Encouraged to massage the healed ulcer 1-2 times a day to help soften the scarring. Stop the Calmoseptine lotion and use Aquaphor/A&D ointment or Vaseline for a moisturizing skin barrier ointment until the dryness resolves, then may start using the Calmoseptine cream. Wound culture 10/07/21 while in the hospital positive for Klebsiella oxytoca, Staphylococcus haemolyticus, and Corynebacterium striatum. Treated with Zosyn and Vanc while hospitalized. Completed Augmentin. Wound culture from 09/12/21 was positive for Staphylococcus haemolyticus and Enterococcus faecalis. Completed Augmentin and Doxycycline and a probiotic. Encourage increased protein intake to help with wound healing. Her family does a really nice job with her wound care. Her new right ischial ulcer as result of her recent hospitalization where she was not turned every 2 hours according to her family. They turn her every 2 hours day and night. Follow up 2 weeks. Call or come in sooner if have any questions or concerns.
[2022-02-12 10:34] VITALS: BP 139/57; PULSE 59; TEMP 36.2; BMI 25.9
--- NOTE | 2022-02-12 11:17 | PN.PCM_ITS ---
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 She had progressive paraplegia. She went to TCU for acute rehab for this progressive paraplegia. During that time she had worsening sacral pressure sore with skin necrosis. Surgery 05/15/21 - Excision necrotic sacral pressure sore, Stage IV, with partial ostectomy for osteomyelitis. Pathology from surgery on 05/15/21 of bone showed acute osteomyelitis. Operative tissue culture positive for Escherichia coli, Klebsiella, Vanc. Resist. E. gallinarum, Vanc. Resist. E. faecalis. Operative bone culture positive for Escherichia coli, Vanc. Resist. E. faecalis, Vanc. Resist. E. gallinarum. She was on Meropenem, Vancomycin has been stopped and Linezolid started. ID is managing. Radiation from 05/17/21 - 06/12/21 18 treatments to T4-T7 area including paraspinal region. 06/06/21- Laparoscopic sigmoid colectomy with creation of end colostomy for fecal diversion. Was in TCU 06/08/21-07/20/21. Patient had a recent hospitalization on 01/19/2022. She states she had C. difficile. She was discharged on 01/22/2022. While she was hospitalized she developed a new ulcer on her right ischium. Has dry scabbing. Wound Care - Sacral ulcer Dakins 0.25% moistened gauze covered with ABD/superabsorber dressing daily. Right ischium ulcer place Aquacel- Ag topped with gauze or mepilex daily or every other day if it is not draining much. The left ischial ulcer remains healed. Massage with lotion at least once daily. Place A&D ointment or aquaphore to laney wound to moisturize and act as a skin barrier. She denies any nausea and vomiting. She states that her appetite is improving and she is drinking extra protein shakes. Progress of Wound: Sacral ulcer is beefy pink. Hypergranulation at 12 o'clock edge of ulcer. The right ischial ulcer is no longer dry and has increased in d epth. Objective Data Objective Data Vital Signs: Vital Signs Temp Pulse Resp BP 97.2 F L 59 L 16 139/57 H 02/12/22 10:34 02/12/22 10:34 01/29/22 10:20 02/12/22 10:34 Oxygen Delivery Method Room Air Weight: 155 lb 11.464 oz Body Mass Index (BMI) 25.9 Charges/Coding Procedures Integumentary 111xxx-113xx: [id number] Casie subq tissue 20 sq cm/< Add On Codes: 46705 Casie subq tissue add-on Physical Exam Const alert and oriented x3 General Appearance: cooperative HEENT normocephalic Resp normal respiratory effort Cardio regular rate Extremity normal capillary refill Skin Wound Narrative: Sacral ulcer is beefy pink with hypergranulation tissue present. The laney wound is stable. The right ischial ulcer is now opened with non viable tissue present. Neuro CN's II-XII intact bilaterally Psych Appearance: grossly normal Debridement Note Debridement Note Wound debrided: Sacral ulcer Laterality: Not Applicable Wound Grade/Stage: Stage IV Type of Debridement: Excisional debridement Anesthesia Used: 4% Lidocaine Solution and 5% Lidocaine Gel Depth: Down to and including healthy tissue and in the subcutaneous layer Percentage of wound debrided: 100 Instrument Used: 7mm curette Tissue Removed: Nonviable tissue and slough, hypergranulation at the 12:00 edge of ulcer Severity: Fat Layer Exposed Amount of bleeding with debridement: Mild Bleeding Controlled with: Pressure, Compression and gauze and Silver Nitrate (At the 12:00 edge where the hypergranulation was present) Patient tolerated procedure: Patient tolerated procedure well Post-Debridement Measurements and Additional Note: Post-Debridement Measurements/Treatment - Nurse 1 - General Ulcer Assessment Start: 01/29/22 10:20 Freq: Status: Active Protocol: KRANTHI Activity Type Activity Date Activity User E-Sign Co-Sign Detail Recorded Client Recorded Date Recorded By Document 01/29/22 10:20 [facility] [id number] 01/29/22 10:38 [facility] Document 02/12/22 10:34 KR [id number] 02/12/22 10:45 KR 01/29/22 02/12/22 10:20 10:34 - Today's Visit Information Type of service Follow-up Visit Follow-up Visit (Physician/PLATING TANK OPERATOR (Physician/PLATING TANK OPERATOR ) ) Arrival Mode Wheelchair Wheelchair Transfer Assistance Will Lift Will Lift Accompanied by daughter and husb Patient Identification Verified (Name & Yes Yes ) Patient Requires Transmission-Based No Precautions Height and Weight Body Mass Index (BMI) 25.9 25.9 BMI Classification Overweight Overweight Vital Signs Temperature (97.8 F-99.1 F) 97.3 F L 97.2 F L Temperature Source Temporal Temporal Pulse Rate (60-100) 66 59 L Pulse Location Monitor Monitor Respiratory Rate (12-18) 16 Respiratory rate source Observation Oxygen Delivery Method Room Air Blood Pressure (90/60-120/80) 117/62 139/57 H Blood Pressure Mean (mm Hg) 80 84 Source Monitor Monitor Position Sitting Semi-Fowlers Blood Pressure Location Right Arm Left Arm History Since Last Visit- (Skip if this is Patient's initial visit) Have you changed medications since your No No last visit? Any new allergies or adverse reactions No No Had a fall/change in ADL's that may No No increase risk of falls Signs or symptoms of abuse and/or No No neglect since last visit Have you been in the hospital since your Yes No last visit? Has dressing in place as prescribed Yes Yes Has compression in place as prescribed N/A N/A Has offloadiing in place as prescribed N/A N/A Experienced any changes in pain level or No No management Left Footwear Slipper Right Footwear Slipper Pain Scale: 0-10 Numeric Is Patient Pain Free? Yes Yes WC - Nurse 1 - General Ulcer Measurement Start: 01/29/22 10:20 Freq: Status: Active Protocol: Activity Type Activity Date Activity User E-Sign Co-Sign Detail Recorded Client Recorded Date Recorded By Document 01/29/22 10:20 [facility] [id number] 01/29/22 10:38 [facility] Document 02/12/22 10:34 KR [id number] 02/12/22 10:45 KR 01/29/22 02/12/22 10:20 10:34 Wound Center Nurse 1 #3- R BUTTOCK -Combined with other wound No -Current Size (cm) - Length 1 3.2 -Current Size (cm) - Width 3.5 0.7 -Current Size (cm) - Depth 0.1 0.1 -Total Square Cm 3.5 2.24 -Date of Last Picture (Recall this 01/29/22 field) -Photo Taken Yes -Epithelialization None Present -Tunneling No -Undermining/Tunneling No -Circular Undermining No -Exudate Amt Small Medium -Exudate Type Serosanguineous Serosanguineous -Wound Margin Distinct, Distinct, Outline Outline Attached Attached -Granulation Amt None Present (0 Medium (34-66%) %) -Granulation Quality [place] -Slough/Fibrin Yes No -Necrosis Amt Large (67-100%) None Present (0 %) -Necrotic Tissue Type Adherent Slough -Texture (Laney-wound Skin Appearance) Assessed Assessed, Scarring -Moisture (Laney-wound Skin Appearance) Assessed Assessed -Color (Laney-wound Skin Appearance) Assessed, No Abnormality, Erythema Assessed -Temperature (Laney-wound Skin No Abnormality No Abnormality Appearance) (Pt Warm) (Pt Warm) -Tenderness on Palpation (Laney-wound Yes No Skin Appearance) -Ulcer Cleansing Soap and Water Rinsed/ Irrigated with Saline -Foul Odor after Cleansing No No -Anesthetic Used 5% Lidocaine 4% Lidocaine Gel Solution #1 Sacral -Combined with other wound No -Current Size (cm) - Length 5.4 4.7 -Current Size (cm) - Width 6.5 6.6 -Current Size (cm) - Depth 1.2 0.3 -Total Square Cm 35.10 31.02 -Date of Last Picture (Recall this 01/29/22 field) -Photo Taken Yes -Epithelialization None Present -Tunneling No -Undermining/Tunneling No -Circular Undermining No -Exudate Amt Medium Medium -Exudate Type Serosanguineous Serosanguineous -Wound Margin Thickened & Distinct, Rolled Under Outline Attached -Granulation Amt Medium (34-66%) Medium (34-66%) -Granulation Quality [place] Hyper- granulation,Red -Slough/Fibrin Yes -Necrosis Amt Medium (34-66%) None Present (0 %) -Necrotic Tissue Type Adherent Slough -Texture (Laney-wound Skin Appearance) Assessed, Assessed, Scarring Scarring -Moisture (Laney-wound Skin Appearance) Assessed No Abnormality, Assessed -Color (Laney-wound Skin Appearance) Assessed, No Abnormality, Erythema Assessed -Temperature (Laney-wound Skin No Abnormality No Abnormality Appearance) (Pt Warm) (Pt Warm) -Tenderness on Palpation (Laney-wound No No Skin Appearance) -Ulcer Cleansing Soap and Water Rinsed/ Irrigated with Saline -Foul Odor after Cleansing No No -Anesthetic Used 5% Lidocaine 4% Lidocaine Gel Solution WC - Nurse 2 - General Ulcer CM Notes Start: 01/29/22 10:20 Freq: Status: Active Protocol: Activity Type Activity Date Activity User E-Sign Co-Sign Detail Recorded Client Recorded Date Recorded By Document 01/29/22 11:15 [id number] 01/29/22 11:27 Document 02/12/22 11:04 [id number] 02/12/22 11:13 01/29/22 02/12/22 11:15 11:04 Wound Center Nurse 2 #3- R BUTTOCK -Time 11: 11:04 -Correct Patient Yes Yes -Correct Side, Site, Position Yes Yes -Correct Procedure Yes Yes -Procedure Performed Yes Yes -Type of Procedure Debridement Debridement -Clinical Debridement Subcutaneous Subcutaneous -Tissue Removed Subcutaneous Subcutaneous -Post Debridement (cm) - Length 3.5 3.0 -Post Debridement (cm) - Width 1.0 1.0 -Post Debridement (cm) - Depth 0.2 0.2 -Total Square (Post) (cm) 3.50 3.00 -Area of Debridement (cm) - Length 3.5 3.0 -Area of Debridement (cm) - Width 1.0 1.0 -Total Square (Area) (cm) 3.50 3.00 -Tunneling No No -Undermining/Tunneling No No -Circular Undermining No No -Wound/Ulcer Outcome Not Healed Not Healed -Ulcer Cleansing Rinsed/ Rinsed/ Irrigated with Irrigated with Saline Saline -Foul Odor after Cleansing No No -Bioengineered Tissue No No -Bleeding Controlled with Pressure Pressure -Treatment Response Procedure Procedure Tolerated Well Tolerated Well -Offloading No No -Pressure Reduction Wheelchair Wheelchair cushion,Other cushion -Other Pressure Reduction Low Air loss mattress -Debridement - Subq, 1st 20sq cm Yes No #1 Sacral -Time 11:20 11:05 -Correct Patient Yes Yes -Correct Side, Site, Position Yes Yes -Correct Procedure Yes Yes -Procedure Performed Yes Yes -Type of Procedure Debridement Debridement -Clinical Debridement Muscle / Fascia Subcutaneous -Tissue Removed Muscle Subcutaneous -Post Debridement (cm) - Length 4.6 4.8 -Post Debridement (cm) - Width 7.2 7.0 -Post Debridement (cm) - Depth 0.8 0.5 -Total Square (Post) (cm) 33.12 33.60 -Area of Debridement (cm) - Length 4.6 4.8 -Area of Debridement (cm) - Width 7.2 7.0 -Total Square (Area) (cm) 33.12 33.60 -Tunneling No No -Undermining/Tunneling No No -Circular Undermining No No -Wound/Ulcer Outcome Not Healed Not Healed -Ulcer Cleansing Rinsed/ Rinsed/ Irrigated with Irrigated with Saline Saline -Foul Odor after Cleansing No No -Bioengineered Tissue No No -Bleeding Controlled with Pressure Pressure -Treatment Response Procedure Procedure Tolerated Well Tolerated Well -Offloading No No -Pressure Reduction Wheelchair Wheelchair cushion, cushion Mattress overlay -Debridement - Subq, 1st 20sq cm Yes -Debridement, SubQ, ea addt'l 20sq cm 1 or part thereof -Debridement - Muscle / Fascia, 1st Yes 20sq cm -Debridement, Muscle/Fascia, ea addt'l 1 20sq cm or part thereof Pain Scale: 0-10 Numeric Is Patient Pain Free? Yes Yes - Nurse 3 - General Ulcer D/C NN Start: 01/29/22 10:20 Freq: Status: Active Protocol: Activity Type Activity Date Activity User E-Sign Co-Sign Detail Recorded Client Recorded Date Recorded By Document 01/29/22 11:49 [facility] [id number] 01/29/22 11:50 [facility] 01/29/22 11:49 Wound Care Nurse 3 #3- R BUTTOCK -Ulcer Cleansing Rinsed/ Irrigated with Saline -Foul Odor after Cleansing No -Primary Dressing Applied Mepilex Border -Mepilex Border 1 #1 Sacral -Ulcer Cleansing Rinsed/ Irrigated with Saline -Foul Odor after Cleansing No -Primary Dressing Applied Aquacel AG 4x4 -Primary Dressing Covered/Secured with Dry Gauze, Secured with Tape,Other -Other Covering ABD -Aquacel AG 4x4 1 Treatment Response Procedure Tolerated Well Pain Scale: 0-10 Numeric Is Patient Pain Free? Yes - Visit Discharge Discharge Condition Stable Ambulatory Status Wheelchair Transportation Private Auto Accompanied by AND RAMAN Additional Wound Wound debrided: Ischial ulcer Laterality: Right Type of Debridement: Excisional debridement Anesthesia Used: 4% Lidocaine Solution and 5% Lidocaine Gel Depth: Down to and including healthy tissue and in the subcutaneous layer Percentage of wound debrided: 100 Instrument Used: 3mm curette Tissue Removed: Nonviable tissue and slough Severity: Fat Layer Exposed Amount of bleeding with debridement: Mild Bleeding Controlled with: Pressure Patient tolerated procedure: Patient tolerated procedure well Assessment/Plan Assessment/Plan (1) Pressure ulcer of sacral region, stage 4: CODE(S): L89.154 - Pressure ulcer of sacral region, stage 4 (2) Pressure ulcer of right ischium: CODE(S): L89.319 - Pressure ulcer of right buttock, unspecified stage (3) Osteomyelitis of pelvis: CODE(S): M86.9 - Osteomyelitis, unspecified (4) Paraplegia: CODE(S): G82.20 - Paraplegia, unspecified PLAN: Wound Care - Sacral ulcer Dakin's 0.25% moistened gauze topped with ABD or superabsorber daily. The right ischial ulcer we will place Aquacel-Ag and cover with gauze or Mepilex dressing daily. The left ischial ulcer remains heal. Encouraged to massage the healed ulcer 1-2 times a day to help soften the scarring. Wound culture 10/07/21 while in the hospital positive for Klebsiella oxytoca, Staphylococcus haemolyticus, and Corynebacterium striatum. Treated with Zosyn and Vanc while hospitalized. Completed Augmentin. Wound culture from 09/12/21 was positive for Staphylococcus haemolyticus and Enterococcus faecalis. Completed Augmentin and Doxycycline and a probiotic. Encourage increased protein intake to help with wound healing. Her family does a really nice job with her wound care. Follow up 2 weeks. Call or come in sooner if have any questions or concerns.
== END 2022-02-17 23:59 | disposition home or self-care (01) ==
LOC: WC 10:45
PROVIDERS: PCP Student in an Organized Health Care Education/Training Program; Visit Provider Nurse Practitioner Family
DX: L89.154 Pressure ulcer of sacral region, stage 4 (principal); G82.20 Paraplegia, unspecified; M86.9 Osteomyelitis, unspecified; Z92.3 Personal history of irradiation; L89.219 Pressure ulcer of right hip, unspecified stage
CPT/HCPCS: 11042; 11043; 11045; 11046

== ENCOUNTER → 2022-02-28 | Outpatient (CLI) | payer SELFPAY, OTHER ==
--- NOTE | 2022-02-28 15:52 | MRI_ITS ---
EXAM: MR HEAD WITHOUT AND WITH INTRAVENOUS CONTRAST, INTERNAL AUDITORY CANAL PROTOCOL CLINICAL INDICATION: follow up left IAC lesion TECHNIQUE: Multiplanar and multisequence MR images of the internal auditory canal were obtained without and with intravenous contrast. This report was created using [employer] report generation technology. CONTRAST: IV 12ML DOTAREM COMPARISON: 10.11.21 FINDINGS: CRANIAL NERVES: Unremarkable. No mass. No abnormal enhancement. COCHLEA AND SEMICIRCULAR CANALS: Unremarkable. CEREBELLOPONTINE ANGLES: Unremarkable. No mass. BRAIN AND EXTRA-AXIAL SPACES: Chronic involutional changes of the brain. 11 x 5 mm enhancing lesion along the left IAC with enhancement at the porus acusticus. There is evidence fora fundal CSF cap. No intra- or extra-axial hemorrhage. No intracranial mass or mass effect. There is preservation of the [place]/white matter interface. Posterior fossa structures are unremarkable. Ventricles are appropriate for age. No hydrocephalus. Basal cisterns are patent. BONES/JOINTS: Unremarkable. No discrete lytic or blastic abnormalities. SINUSES: There is sinus disease. MASTOID AIR CELLS: Unremarkable as visualized. Clear. ORBITS: Unremarkable as visualized. Both globes, extraocular muscles, optic nerves and retrobulbar fat appear unremarkable. MRI/Brain W/WO Contrast IMPRESSION: 1. Chronic involutional changes of the brain. 2. 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 Electronically Signed: Davonte Dorantes MD at 21:00 EDT ,
== END | disposition home or self-care (01) ==
LOC: MRI 15:52
PROVIDERS: PCP Student in an Organized Health Care Education/Training Program; Visit Provider Student in an Organized Health Care Education/Training Program
DX: R90.89 Other abnormal findings on diagnostic imaging of central nervous system (principal)
CPT/HCPCS: 70553; A9575

== ENCOUNTER 2022-03-12 10:00 | Outpatient (RCR) | payer OTHER, SELFPAY ==
[2022-02-18 00:31] VITALS: BP 139/57; PULSE 59; RESP 16; TEMP 36.2; BMI 25.9
[2022-02-26 10:45] VITALS: BP 128/64; PULSE 63; TEMP 35.7; BMI 25.9
--- NOTE | 2022-02-26 12:42 | PN.PCM_ITS ---
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 She had progressive paraplegia. She went to TCU for acute rehab for this progressive paraplegia. During that time she had worsening sacral pressure sore with skin necrosis. Surgery 05/15/21 - Excision necrotic sacral pressure sore, Stage IV, with partial ostectomy for osteomyelitis. Pathology from surgery on 05/15/21 of bone showed acute osteomyelitis. Operative tissue culture positive for Escherichia coli, Klebsiella, Vanc. Resist. E. gallinarum, Vanc. Resist. E. faecalis. Operative bone culture positive for Escherichia coli, Vanc. Resist. E. faecalis, Vanc. Resist. E. gallinarum. She was on Meropenem, Vancomycin has been stopped and Linezolid started. ID is managing. Radiation from 05/17/21 - 06/12/21 18 treatments to T4-T7 area including paraspinal region. 06/06/21- Laparoscopic sigmoid colectomy with creation of end colostomy for fecal diversion. Was in TCU 06/08/21-07/20/21. Patient had a recent hospitalization on 01/19/2022. She states she had C. difficile. She was discharged on 01/22/2022. While she was hospitalized she developed a new ulcer on her right ischium. Has dry scabbing. Wound Care - Sacral ulcer Dakins 0.25% moistened gauze covered with ABD/superabsorber dressing daily. Right ischium ulcer place Aquacel- Ag topped with gauze or mepilex daily or every other day if it is not draining much. The left ischial ulcer remains healed. Massage with lotion at least once daily. Place A&D ointment or barrier cream to laney wound to moisturize and protect the skin. She denies any nausea and vomiting. She states that her appetite is improving and she is drinking extra protein shakes. Progress of Wound: Sacral ulcer is beefy pink and smaller in size. The right ischial ulcer is improved and is more superficial. Objective Data Objective Data Vital Signs: Vital Signs Temp Pulse Resp BP 96.3 F L 63 16 128/64 H 02/26/22 10:45 02/26/22 10:45 02/18/22 00:31 02/26/22 10:45 Weight: 155 lb 11.464 oz Body Mass Index (BMI) 25.9 Charges/Coding Procedures Integumentary 111xxx-113xx: [id number] Casie subq tissue 20 sq cm/< Add On Codes: [id number] Casie subq tissue add-on Physical Exam Const alert and oriented x3 General Appearance: cooperative HEENT normocephalic Resp normal respiratory effort Extremity normal capillary refill Skin Wound Narrative: Sacral ulcer is beefy pink and showing improvement. Right ischial is more superficial and appears smaller in size. Left ischial remains healed. Laney wound shows a small amount of excoriation. Neuro Sensorium / Orientation: awake and alert Psych Appearance: well kempt Debridement Note Debridement Note Wound debrided: Sacral ulcer Wound Grade/Stage: Stage IV Type of Debridement: Excisional debridement Anesthesia Used: 4% Lidocaine Solution Depth: Down to and including healthy tissue and in the subcutaneous layer Percentage of wound debrided: 100 Instrument Used: 7mm curette Tissue Removed: Non viable tissue and slough Severity: Fat Layer Exposed Amount of bleeding with debridement: Mild Bleeding Controlled with: Compression and gauze Patient tolerated procedure: Patient tolerated procedure well Post-Debridement Measurements and Additional Note: Post-Debridement Measurements/Treatment - Nurse 1 - General Ulcer Assessment Start: 02/26/22 10:45 Freq: Status: Active Protocol: .FLACO Activity Type Activity Date Activity User E-Sign Co-Sign Detail Recorded Client Recorded Date Recorded By Document 02/26/22 10:45 [facility] [id number] 02/26/22 10:55 [facility] 02/26/22 10:45 - Today's Visit Information Type of service Follow-up Visit (Physician/DURABLE MEDICAL EQUIPMENT REPAIRER ) Arrival Mode Wheelchair Transfer Assistance Will Lift Patient Identification Verified (Name & Yes ) Patient Requires Transmission-Based No Precautions Safety Precautions NA Height and Weight Body Mass Index (BMI) 25.9 BMI Classification Overweight Vital Signs Temperature (97.8 F-99.1 F) 96.3 F L Temperature Source Temporal Pulse Rate (60-100) 63 Pulse Location Monitor Blood Pressure (90/60-120/80) 128/64 H Blood Pressure Mean (mm Hg) 85 Source Monitor History Since Last Visit- (Skip if this is Patient's initial visit) Have you changed medications since your No last visit? Any new allergies or adverse reactions No Had a fall/change in ADL's that may No increase risk of falls Signs or symptoms of abuse and/or No neglect since last visit Have you been in the hospital since your No last visit? Has dressing in place as prescribed Yes Has compression in place as prescribed No Has offloadiing in place as prescribed N/A Experienced any changes in pain level or No management Left Footwear Slipper Right Footwear Slipper Pain Scale: 0-10 Numeric Is Patient Pain Free? Yes WC - Nurse 1 - General Ulcer Measurement Start: 02/26/22 10:45 Freq: Status: Active Protocol: Activity Type Activity Date Activity User E-Sign Co-Sign Detail Recorded Client Recorded Date Recorded By Document 02/26/22 10:45 [facility] [id number] 02/26/22 10:55 [facility] 02/26/22 10:45 Wound Center Nurse 1 #3- R BUTTOCK -Combined with other wound No -Current Size (cm) - Length 2.6 -Current Size (cm) - Width 1 -Current Size (cm) - Depth 0.2 -Total Square Cm 2.6 -Photo Taken No -Tunneling No -Undermining/Tunneling No -Circular Undermining No -Change in Wound Grade/Stage No -Exudate Amt Large -Exudate Type Serosanguineous -Wound Margin Distinct, Outline Attached -Granulation Amt Large (67-100%) -Granulation Quality N/A -Slough/Fibrin Yes -Necrosis Amt Large (67-100%) -Necrotic Tissue Type Adherent Slough -Structure Exposed N/A -Texture (Laney-wound Skin Appearance) Assessed, Scarring -Moisture (Laney-wound Skin Appearance) Assessed, Maceration -Color (Laney-wound Skin Appearance) No Abnormality, Assessed -Temperature (Laney-wound Skin No Abnormality Appearance) (Pt Warm) -Tenderness on Palpation (Laney-wound No Skin Appearance) -Ulcer Cleansing Soap and Water -Foul Odor after Cleansing No -Anesthetic Used 4% Lidocaine Solution #1 Sacral -Combined with other wound No -Current Size (cm) - Length 4.8 -Current Size (cm) - Width 6.3 -Current Size (cm) - Depth 0.4 -Total Square Cm 30.24 -Photo Taken No -Tunneling No -Undermining/Tunneling No -Circular Undermining No -Change in Wound Grade/Stage No -Exudate Amt Small -Exudate Type Serosanguineous -Wound Margin Distinct, Outline Attached -Granulation Amt Large (67-100%) -Granulation Quality Red -Slough/Fibrin No -Necrosis Amt None Present (0 %) -Structure Exposed N/A -Texture (Laney-wound Skin Appearance) No Abnormality, Assessed -Moisture (Laney-wound Skin Appearance) No Abnormality, Assessed -Color (Laney-wound Skin Appearance) No Abnormality, Assessed -Temperature (Laney-wound Skin No Abnormality Appearance) (Pt Warm) -Tenderness on Palpation (Laney-wound No Skin Appearance) -Ulcer Cleansing Soap and Water -Foul Odor after Cleansing No -Anesthetic Used 4% Lidocaine Solution WC - Nurse 2 - General Ulcer CM Notes Start: 02/26/22 10:45 Freq: Status: Active Protocol: Activity Type Activity Date Activity User E-Sign Co-Sign Detail Recorded Client Recorded Date Recorded By Document 02/26/22 12:38 ARMIDA [id number] 02/26/22 12:40 PL 02/26/22 12:38 Wound Center Nurse 2 #3- R BUTTOCK -Time 11:00 -Correct Patient Yes -Correct Side, Site, Position Yes -Correct Procedure Yes -Procedure Performed Yes -Type of Procedure Debridement -Clinical Debridement Subcutaneous -Tissue Removed Subcutaneous -Post Debridement (cm) - Length 2.5 -Post Debridement (cm) - Width 1.4 -Post Debridement (cm) - Depth 0.2 -Total Square (Post) (cm) 3.50 -Area of Debridement (cm) - Length 2.5 -Area of Debridement (cm) - Width 1.4 -Total Square (Area) (cm) 3.50 -Tunneling No -Undermining/Tunneling No -Circular Undermining No -Wound/Ulcer Outcome Not Healed -Ulcer Cleansing Rinsed/ Irrigated with Saline -Foul Odor after Cleansing No -Bioengineered Tissue No -Bleeding Controlled with Pressure -Treatment Response Procedure Tolerated Well -Debridement - Subq, 1st 20sq cm No #1 Sacral -Time 11:00 -Correct Patient Yes -Correct Side, Site, Position Yes -Correct Procedure Yes -Procedure Performed Yes -Type of Procedure Debridement -Clinical Debridement Subcutaneous -Tissue Removed Subcutaneous -Post Debridement (cm) - Length 4.2 -Post Debridement (cm) - Width 6.8 -Post Debridement (cm) - Depth 0.5 -Total Square (Post) (cm) 28.56 -Area of Debridement (cm) - Length 4.2 -Area of Debridement (cm) - Width 6.8 -Total Square (Area) (cm) 28.56 -Tunneling No -Undermining/Tunneling No -Circular Undermining No -Wound/Ulcer Outcome Not Healed -Ulcer Cleansing Rinsed/ Irrigated with Saline -Foul Odor after Cleansing No -Bioengineered Tissue No -Bleeding Controlled with Pressure -Treatment Response Procedure Tolerated Well -Debridement - Subq, 1st 20sq cm Yes -Debridement, SubQ, ea addt'l 20sq cm 1 or part thereof Pain Scale: 0-10 Numeric Is Patient Pain Free? Yes - Nurse 3 - General Ulcer D/C NN Start: 02/26/22 10:45 Freq: Status: Active Protocol: Activity Type Activity Date Activity User E-Sign Co-Sign Detail Recorded Client Recorded Date Recorded By Document 02/26/22 11:28 [facility] [id number] 02/26/22 11:29 [facility] 02/26/22 11:28 Wound Care Nurse 3 #3- R BUTTOCK -Ulcer Cleansing Rinsed/ Irrigated with Saline -Foul Odor after Cleansing No -Primary Dressing Applied Aquacel AG 4x4, Mepilex Border -Aquacel AG 4x4 1 -Mepilex Border 1 #1 Sacral -Ulcer Cleansing Rinsed/ Irrigated with Saline -Foul Odor after Cleansing No -Primary Dressing Applied Other -Other Dressing SALINE MOISTENED GAUZE Treatment Response Procedure Tolerated Well Pain Scale: 0-10 Numeric Is Patient Pain Free? Yes - Visit Discharge Discharge Condition Stable Ambulatory Status Wheelchair Transportation Private Auto Accompanied by / DAUGHTER Additional Wound Wound debrided: ischial ulcer Laterality: Right Type of Debridement: Excisional debridement Anesthesia Used: 4% Lidocaine Solution Depth: Down to and including healthy tissue and in the subcutaneous layer Percentage of wound debrided: 100 Instrument Used: 3mm curette Tissue Removed: Non viable tissue and slough Severity: Fat Layer Exposed Amount of bleeding with debridement: Mild Bleeding Controlled with: Compression and gauze Patient tolerated procedure: Patient tolerated procedure well Assessment/Plan Assessment/Plan (1) Pressure ulcer of sacral region, stage 4: CODE(S): L89.154 - Pressure ulcer of sacral region, stage 4 (2) Pressure ulcer of right ischium: CODE(S): L89.319 - Pressure ulcer of right buttock, unspecified stage (3) Paraplegia: CODE(S): G82.20 - Paraplegia, unspecified (4) Osteomyelitis of pelvis: CODE(S): M86.9 - Osteomyelitis, unspecified (5) Large B-cell lymphoma: CODE(S): C85.10 - Unspecified B-cell lymphoma, unspecified site PLAN: Wound Care - Sacral ulcer Dakin's 0.25% moistened gauze topped with ABD or superabsorber daily. The right ischial ulcer we will place Aquacel-Ag and cover with gauze or Mepilex dressing daily. The left ischial ulcer remains heal. Encouraged to massage the healed ulcer 1-2 times a day to help soften the scarring. Wound culture 10/07/21 while in the hospital positive for Klebsiella oxytoca, Staphylococcus haemolyticus, and Corynebacterium striatum. Treated with Zosyn and Vanc while hospitalized. Completed Augmentin. Wound culture from 09/12/21 was positive for Staphylococcus haemolyticus and Enterococcus faecalis. Completed Augmentin and Doxycycline and a probiotic. Encourage increased protein intake to help with wound healing. Her family does a really nice job with her wound care. Follow up 2 weeks. Call or come in sooner if have any questions or concerns.
[2022-03-12 09:50] VITALS: BP 164/67; PULSE 56; RESP 16; TEMP 35.9; BMI 25.9
--- NOTE | 2022-03-12 11:09 | PN.PCM_ITS ---
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 She had progressive paraplegia. She went to TCU for acute rehab for this progressive paraplegia. During that time she had worsening sacral pressure sore with skin necrosis. Surgery 05/15/21 - Excision necrotic sacral pressure sore, Stage IV, with partial ostectomy for osteomyelitis. Pathology from surgery on 05/15/21 of bone showed acute osteomyelitis. Operative tissue culture positive for Escherichia coli, Klebsiella, Vanc. Resist. E. gallinarum, Vanc. Resist. E. faecalis. Operative bone culture positive for Escherichia coli, Vanc. Resist. E. faecalis, Vanc. Resist. E. gallinarum. She was on Meropenem, Vancomycin has been stopped and Linezolid started. ID is managing. Radiation from 05/17/21 - 06/12/21 18 treatments to T4-T7 area including paraspinal region. 06/06/21- Laparoscopic sigmoid colectomy with creation of end colostomy for fecal diversion. Was in TCU 06/08/21-07/20/21. Patient had a recent hospitalization on 01/19/2022. She states she had C. difficile. She was discharged on 01/22/2022. While she was hospitalized she developed a new ulcer on her right ischium. Has dry scabbing. Wound Care - Sacral ulcer Dakins 0.25% moistened gauze alternating with Aquacel-Ag covered with ABD/superabsorber dressing daily. Right ischium ulcer place Aquacel- Ag topped with gauze or mepilex daily or every other day if it is not draining much. The left ischial ulcer remains healed. Massage with lotion at least once daily. Place A&D ointment or barrier cream to laney wound to moisturize and protect the skin. She denies any nausea and vomiting. She states that her appetite is improving and she is drinking extra protein shakes. Progress of Wound: Sacral ulcer is beefy pink and smaller in size. The right ischial ulcer is improved and is more superficial. Objective Data Objective Data Vital Signs: Vital Signs Temp Pulse Resp BP 96.6 F L 56 L 16 164/67 H 03/12/22 09:50 03/12/22 09:50 03/12/22 09:50 03/12/22 09:50 Oxygen Delivery Method Room Air Weight: 155 lb 11.464 oz Body Mass Index (BMI) 25.9 Charges/Coding Procedures Integumentary 111xxx-113xx: [id number] Casie subq tissue 20 sq cm/< Add On Codes: 43890 Casie subq tissue add-on Physical Exam Const alert and oriented x3 General Appearance: cooperative HEENT normocephalic Resp normal respiratory effort Extremity normal capillary refill Skin Wound Narrative: Sacral ulcer is beefy pink and showing improvement. Right ischial is more superficial and appears smaller in size. Left ischial remains healed. Laney wound shows a small amount of excoriation. Neuro Sensorium / Orientation: awake and alert Psych Appearance: well kempt Debridement Note Debridement Note Wound debrided: Sacral ulcer Wound Grade/Stage: Stage IV Type of Debridement: Excisional debridement Anesthesia Used: 4% Lidocaine Solution Depth: Down to and including healthy tissue and in the subcutaneous layer Percentage of wound debrided: 100 Instrument Used: 7mm curette Tissue Removed: Non viable tissue and slough Severity: Limited To Skin Breakdown Amount of bleeding with debridement: Mild Bleeding Controlled with: Pressure Post-Debridement Measurements and Additional Note: Post-Debridement Measurements/Treatment - Nurse 1 - General Ulcer Assessment Start: 02/26/22 10:45 Freq: Status: Active Protocol: .FLACO Activity Type Activity Date Activity User E-Sign Co-Sign Detail Recorded Client Recorded Date Recorded By Document 02/26/22 10:45 [facility] [id number] 02/26/22 10:55 [facility] Document 03/12/22 09:50 [facility] [id number] 03/12/22 10:02 [facility] 02/26/22 03/12/22 10:45 09:50 - Today's Visit Information Type of service Follow-up Visit Follow-up Visit (Physician/HOBBING PRESS OPERATOR (Physician/HOBBING PRESS OPERATOR ) ) Arrival Mode Wheelchair Wheelchair Transfer Assistance Will Lift Will Lift Accompanied by husb, daughter Patient Identification Verified (Name & Yes Yes ) Patient Requires Transmission-Based No No Precautions Safety Precautions NA Height and Weight Body Mass Index (BMI) 25.9 25.9 BMI Classification Overweight Overweight Vital Signs Temperature (97.8 F-99.1 F) 96.3 F L 96.6 F L Temperature Source Temporal Temporal Pulse Rate (60-100) 63 56 L Pulse Location Monitor Monitor Respiratory Rate (12-18) 16 Respiratory rate source Observation Oxygen Delivery Method Room Air Blood Pressure (90/60-120/80) 128/64 H 164/67 H Blood Pressure Mean (mm Hg) 85 99 Source Monitor Monitor Position Sitting Blood Pressure Location Right Arm History Since Last Visit- (Skip if this is Patient's initial visit) Have you changed medications since your No No last visit? Any new allergies or adverse reactions No No Had a fall/change in ADL's that may No No increase risk of falls Signs or symptoms of abuse and/or No No neglect since last visit Have you been in the hospital since your No No last visit? Has dressing in place as prescribed Yes Yes Has compression in place as prescribed No N/A Has offloadiing in place as prescribed N/A N/A Experienced any changes in pain level or No No management Left Footwear Slipper Slipper Right Footwear Slipper Slipper Pain Scale: 0-10 Numeric Is Patient Pain Free? Yes Yes WC - Nurse 1 - General Ulcer Measurement Start: 02/26/22 10:45 Freq: Status: Active Protocol: Activity Type Activity Date Activity User E-Sign Co-Sign Detail Recorded Client Recorded Date Recorded By Document 02/26/22 10:45 [facility] [id number] 02/26/22 10:55 [facility] Document 03/12/22 09:50 [facility] [id number] 03/12/22 10:02 [facility] 02/26/22 03/12/22 10:45 09:50 Wound Center Nurse 1 #3- R BUTTOCK -Combined with other wound No No -Current Size (cm) - Length 2.6 3 -Current Size (cm) - Width 1 0.6 -Current Size (cm) - Depth 0.2 0.1 -Total Square Cm 2.6 1.8 -Date of Last Picture (Recall this 03/12/22 field) -Photo Taken No Yes -Epithelialization None Present -Tunneling No No -Undermining/Tunneling No No -Circular Undermining No -Change in Wound Grade/Stage No -Exudate Amt Large Medium -Exudate Type Serosanguineous Serosanguineous -Wound Margin Distinct, Distinct, Outline Outline Attached Attached -Granulation Amt Large (67-100%) Medium (34-66%) -Granulation Quality N/A Red -Slough/Fibrin Yes Yes -Necrosis Amt Large (67-100%) Medium (34-66%) -Necrotic Tissue Type Adherent Slough Adherent Slough -Structure Exposed N/A -Texture (Laney-wound Skin Appearance) Assessed, Assessed, Scarring Scarring -Moisture (Laney-wound Skin Appearance) Assessed, Assessed Maceration -Color (Laney-wound Skin Appearance) No Abnormality, Assessed, Assessed Erythema -Temperature (Laney-wound Skin No Abnormality No Abnormality Appearance) (Pt Warm) (Pt Warm) -Tenderness on Palpation (Laney-wound No Yes Skin Appearance) -Ulcer Cleansing Soap and Water Soap and Water -Foul Odor after Cleansing No No -Anesthetic Used 4% Lidocaine 4% Lidocaine Solution Solution #1 Sacral -Combined with other wound No No -Current Size (cm) - Length 4.8 4.5 -Current Size (cm) - Width 6.3 6 -Current Size (cm) - Depth 0.4 0.2 -Total Square Cm 30.24 27.0 -Date of Last Picture (Recall this 03/12/22 field) -Photo Taken No Yes -Epithelialization None Present -Tunneling No No -Undermining/Tunneling No No -Circular Undermining No No -Change in Wound Grade/Stage No -Exudate Amt Small Large -Exudate Type Serosanguineous Serosanguineous -Wound Margin Distinct, Distinct, Outline Outline Attached Attached -Granulation Amt Large (67-100%) Small (1-33%) -Granulation Quality Red Red -Slough/Fibrin No Yes -Necrosis Amt None Present (0 Large (67-100%) %) -Necrotic Tissue Type Adherent Slough -Structure Exposed N/A -Texture (Laney-wound Skin Appearance) No Abnormality, Assessed, Assessed Scarring -Moisture (Laney-wound Skin Appearance) No Abnormality, Assessed Assessed -Color (Laney-wound Skin Appearance) No Abnormality, Assessed, Assessed Erythema -Temperature (Laney-wound Skin No Abnormality No Abnormality Appearance) (Pt Warm) (Pt Warm) -Tenderness on Palpation (Laney-wound No Yes Skin Appearance) -Ulcer Cleansing Soap and Water Soap and Water -Foul Odor after Cleansing No No -Anesthetic Used 4% Lidocaine 4% Lidocaine Solution Solution WC - Nurse 2 - General Ulcer CM Notes Start: 02/26/22 10:45 Freq: Status: Active Protocol: Activity Type Activity Date Activity User E-Sign Co-Sign Detail Recorded Client Recorded Date Recorded By Document 02/26/22 12:38 PL [id number] 02/26/22 12:40 PL Document 03/12/22 10:18 [id number] 03/12/22 10:22 02/26/22 03/12/22 12:38 10:18 Wound Center Nurse 2 #3- R BUTTOCK -Time 11:00 10:19 -Correct Patient Yes Yes -Correct Side, Site, Position Yes Yes -Correct Procedure Yes Yes -Procedure Performed Yes Yes -Type of Procedure Debridement Debridement -Clinical Debridement Subcutaneous Subcutaneous -Tissue Removed Subcutaneous Subcutaneous -Post Debridement (cm) - Length 2.5 3.0 -Post Debridement (cm) - Width 1.4 1.2 -Post Debridement (cm) - Depth 0.2 0.1 -Total Square (Post) (cm) 3.50 3.60 -Area of Debridement (cm) - Length 2.5 3.0 -Area of Debridement (cm) - Width 1.4 1.2 -Total Square (Area) (cm) 3.50 3.60 -Tunneling No No -Undermining/Tunneling No No -Circular Undermining No No -Wound/Ulcer Outcome Not Healed Not Healed -Ulcer Cleansing Rinsed/ Rinsed/ Irrigated with Irrigated with Saline Saline -Foul Odor after Cleansing No No -Bioengineered Tissue No No -Bleeding Controlled with Pressure Pressure -Treatment Response Procedure Procedure Tolerated Well Tolerated Well -Offloading No -Pressure Reduction Wheelchair cushion, Specialty bed -Debridement - Subq, 1st 20sq cm No No #1 Sacral -Time 11:00 10:20 -Correct Patient Yes Yes -Correct Side, Site, Position Yes Yes -Correct Procedure Yes Yes -Procedure Performed Yes Yes -Type of Procedure Debridement Debridement -Clinical Debridement Subcutaneous Subcutaneous -Tissue Removed Subcutaneous Subcutaneous -Post Debridement (cm) - Length 4.2 4.8 -Post Debridement (cm) - Width 6.8 6.5 -Post Debridement (cm) - Depth 0.5 0.5 -Total Square (Post) (cm) 28.56 31.20 -Area of Debridement (cm) - Length 4.2 4.8 -Area of Debridement (cm) - Width 6.8 6.5 -Total Square (Area) (cm) 28.56 31.20 -Tunneling No No -Undermining/Tunneling No No -Circular Undermining No No -Wound/Ulcer Outcome Not Healed Not Healed -Ulcer Cleansing Rinsed/ Rinsed/ Irrigated with Irrigated with Saline Saline -Foul Odor after Cleansing No No -Bioengineered Tissue No No -Bleeding Controlled with Pressure Pressure -Treatment Response Procedure Procedure Tolerated Well Tolerated Well -Offloading No -Pressure Reduction Wheelchair cushion, Specialty bed -Debridement - Subq, 1st 20sq cm Yes Yes -Debridement, SubQ, ea addt'l 20sq cm 1 1 or part thereof Pain Scale: 0-10 Numeric Is Patient Pain Free? Yes Yes - Nurse 3 - General Ulcer D/C NN Start: 02/26/22 10:45 Freq: Status: Active Protocol: Activity Type Activity Date Activity User E-Sign Co-Sign Detail Recorded Client Recorded Date Recorded By Document 02/26/22 11:28 [facility] [id number] 02/26/22 11:29 [facility] Document 03/12/22 10:30 [facility] [id number] 03/12/22 10:32 [facility] 02/26/22 03/12/22 11:28 10:30 Wound Care Nurse 3 #3- R BUTTOCK -Ulcer Cleansing Rinsed/ Rinsed/ Irrigated with Irrigated with Saline Saline -Foul Odor after Cleansing No No -Primary Dressing Applied Aquacel AG 4x4, Aquacel AG 4x4 Mepilex Border -Other Dressing drsg per ak air and water tester -Primary Dressing Covered/Secured with Secured with Tape,Other -Other Covering abd -Aquacel AG 4x4 1 1 -Mepilex Border 1 #1 Sacral -Ulcer Cleansing Rinsed/ Rinsed/ Irrigated with Irrigated with Saline Saline -Foul Odor after Cleansing No No -Primary Dressing Applied Other Aquacel AG 4x4 -Other Dressing SALINE drsg per ak air and water tester MOISTENED GAUZE -Primary Dressing Covered/Secured with Secured with Tape,Other -Other Covering abd -Aquacel AG 4x4 0 Treatment Response Procedure Procedure Tolerated Well Tolerated Well Pain Scale: 0-10 Numeric Is Patient Pain Free? Yes Yes - Visit Discharge Discharge Condition Stable Stable Ambulatory Status Wheelchair Wheelchair Transportation Private Auto Private Auto Accompanied by / husb, daughter DAUGHTER Facility Type Home Health Additional Wound Wound debrided: Ischial ulcer Laterality: Right Type of Debridement: Excisional debridement Anesthesia Used: 4% Lidocaine Solution Depth: Down to and including healthy tissue and in the subcutaneous layer Percentage of wound debrided: 100 Instrument Used: 3mm curette Tissue Removed: Non viable tissue and slough Severity: Fat Layer Exposed Amount of bleeding with debridement: Mild Bleeding Controlled with: Pressure Patient tolerated procedure: Patient tolerated procedure well Assessment/Plan Assessment/Plan (1) Pressure ulcer of sacral region, stage 4: CODE(S): L89.154 - Pressure ulcer of sacral region, stage 4 (2) Pressure ulcer of right ischium: CODE(S): L89.319 - Pressure ulcer of right buttock, unspecified stage (3) Paraplegia: CODE(S): G82.20 - Paraplegia, unspecified (4) Osteomyelitis of pelvis: CODE(S): M86.9 - Osteomyelitis, unspecified (5) Large B-cell lymphoma: CODE(S): C85.10 - Unspecified B-cell lymphoma, unspecified site PLAN: Wound Care - Sacral ulcer Dakin's 0.25% moistened gauze alternating every other day with Aquacel-Ag topped with ABD or super absorber. The right ischial ulcer we will place Aquacel-Ag and cover with gauze or Mepilex dressing daily. The left ischial ulcer remains heal. Encouraged to massage the healed ulcer 1-2 times a day to help soften the scarring. Wound culture 10/07/21 while in the hospital positive for Klebsiella oxytoca, St aphylococcus haemolyticus, and Corynebacterium striatum. Treated with Zosyn and Vanc while hospitalized. Completed Augmentin. Wound culture from 09/12/21 was positive for Staphylococcus haemolyticus and Enterococcus faecalis. Completed Augmentin and Doxycycline and a probiotic. Encourage increased protein intake to help with wound healing. Her family does a really nice job with her wound care. Follow up 3 weeks due to holiday and vacation. Call or come in sooner if have any questions or concerns.
== END 2022-03-20 23:59 | disposition home or self-care (01) ==
LOC: WC 10:00
PROVIDERS: PCP Student in an Organized Health Care Education/Training Program; Visit Provider Nurse Practitioner Family
DX: L89.154 Pressure ulcer of sacral region, stage 4 (principal); G82.20 Paraplegia, unspecified; C85.10 Unspecified B-cell lymphoma, unspecified site; L89.212 Pressure ulcer of right hip, stage 2; M86.9 Osteomyelitis, unspecified; Z92.3 Personal history of irradiation
CPT/HCPCS: 11042; 11045

== ENCOUNTER 2022-04-09 09:43 | Outpatient (RCR) | payer OTHER, SELFPAY ==
[2022-03-21 00:48] VITALS: BP 164/67; PULSE 56; RESP 16; TEMP 35.9; BMI 25.9
[2022-04-09 10:04] VITALS: BP 160/70; PULSE 77; TEMP 36.1; BMI 25.9
--- NOTE | 2022-04-09 12:26 | PCM.WC.PN ---
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 She had progressive paraplegia. She went to TCU for acute rehab for this progressive paraplegia. During that time she had worsening sacral pressure sore with skin necrosis. Surgery 05/15/21 - Excision necrotic sacral pressure sore, Stage IV, with partial ostectomy for osteomyelitis. Pathology from surgery on 05/15/21 of bone showed acute osteomyelitis. Operative tissue culture positive for Escherichia coli, Klebsiella, Vanc. Resist. E. gallinarum, Vanc. Resist. E. faecalis. Operative bone culture positive for Escherichia coli, Vanc. Resist. E. faecalis, Vanc. Resist. E. gallinarum. She was on Meropenem, Vancomycin has been stopped and Linezolid started. ID is managing. Radiation from 05/17/21 - 06/12/21 18 treatments to T4-T7 area including paraspinal region. 06/06/21- Laparoscopic sigmoid colectomy with creation of end colostomy for fecal diversion. Was in TCU 06/08/21-07/20/21. Patient had a recent hospitalization on 01/19/2022. She states she had C. difficile. She was discharged on 01/22/2022. While she was hospitalized she developed a new ulcer on her right ischium. Has dry scabbing. Wound Care - Sacral ulcer Dakins 0.25% moistened gauze alternating with Aquacel-Ag covered with ABD/superabsorber dressing daily. Right ischium ulcer place Aquacel- Ag topped with gauze or mepilex daily or every other day if it is not draining much. The left ischial ulcer remains healed. Massage with lotion at least once daily. Place A&D ointment or barrier cream to laney wound to moisturize and protect the skin. She denies any nausea and vomiting. She states that her appetite is improving and she is drinking extra protein shakes. Progress of Wound: Sacral ulcer is beefy pink and smaller in size. The right ischial ulcer is improved and is more superficial. Laney wound is clear. Objective Data Objective Data Vital Signs: Vital Signs Temp Pulse Resp BP 97.0 F L 77 16 160/70 H 06/20/22 10:04 04/09/22 10:04 03/21/22 00:48 04/09/22 10:04 Weight: 155 lb 11.464 oz Body Mass Index (BMI) 25.9 Charges/Coding Procedures Integumentary 111xxx-113xx: 74194 Casie subq tissue 20 sq cm/< Add On Codes: 19072 Casie subq tissue add-on Physical Exam Const alert and oriented x3 General Appearance: cooperative HEENT normocephalic Resp normal respiratory effort Cardio regular rate Extremity normal capillary refill Skin Wound Narrative: Sacral ulcer is beefy pink and showing improvement. Right ischial is more superficial and appears smaller in size. Left ischial remains healed. Laney wound is clear with no excoriation. Neuro Sensorium / Orientation: awake and alert Psych Appearance: well kempt Debridement Note Debridement Note Wound debrided: Sacral ulcer Wound Grade/Stage: Stage IV Type of Debridement: Excisional debridement Anesthesia Used: 4% Lidocaine Solution Depth: Down to and including healthy tissue and in the subcutaneous layer Percentage of wound debrided: 100 Instrument Used: 5mm curette Tissue Removed: Non viable tissue and slough into the muscle. Severity: Limited To Skin Breakdown Amount of bleeding with debridement: Mild Bleeding Controlled with: Pressure Patient tolerated procedure: Patient tolerated procedure well Post-Debridement Measurements and Additional Note: Post-Debridement Measurements/Treatment - Nurse 1 - General Ulcer Assessment Start: 04/09/22 10:04 Freq: Status: Active Protocol: NICOLAS.LOWASCENCION Activity Type Activity Date Activity User E-sign Co-sign Detail Recorded Client Recorded Date Recorded By Document 04/09/22 10:04 [id number] 04/09/22 10:15 DL 04/09/22 10:04 - Today's Visit Information Type of service Follow-up Visit (Physician/[employer] SERVICE ADVISOR ) Arrival Mode Wheelchair Transfer Assistance Will Lift Patient Identification Verified (Name & Yes ) Height and Weight Body Mass Index (BMI) 25.9 BMI Classification Overweight Vital Signs Temperature (97.8 F-99.1 F) 97.0 F L Temperature Source Temporal Pulse Rate (60-100) 77 Pulse Location Monitor Blood Pressure (90/60-120/80) 160/70 H Blood Pressure Mean (mm Hg) 100 Source Monitor Position Semi-Fowlers Blood Pressure Location Right Arm History Since Last Visit- (Skip if this is Patient's initial visit) Have you changed medications since your No last visit? Any new allergies or adverse reactions No Had a fall/change in ADL's that may No increase risk of falls Signs or symptoms of abuse and/or No neglect since last visit Have you been in the hospital since your No last visit? Has dressing in place as prescribed Yes Has compression in place as prescribed N/A Has offloadiing in place as prescribed N/A Experienced any changes in pain level or No management Left Footwear Slipper Right Footwear Slipper Pain Scale: 0-10 Numeric Is Patient Pain Free? Yes WC - Nurse 1 - General Ulcer Measurement Start: 04/09/22 10:04 Freq: Status: Active Protocol: Activity Type Activity Date Activity User E-sign Co-sign Detail Recorded Client Recorded Date Recorded By Document 04/09/22 10:04 DL [id number] 04/09/22 10:15 DL 04/09/22 10:04 Wound Center Nurse 1 #3- R BUTTOCK -Current Size (cm) - Length 1.1 -Current Size (cm) - Width 0.7 -Current Size (cm) - Depth 0.2 -Total Square Cm 0.77 -Exudate Amt Medium -Exudate Type Serosanguineous -Wound Margin Distinct, Outline Attached -Granulation Amt Medium (34-66%) -Granulation Quality [place] -Necrosis Amt Medium (34-66%) -Necrotic Tissue Type Adherent Slough -Texture (Laney-wound Skin Appearance) Assessed, Scarring -Moisture (Laney-wound Skin Appearance) No Abnormality, Assessed -Color (Laney-wound Skin Appearance) No Abnormality, Assessed -Temperature (Laney-wound Skin No Abnormality Appearance) (Pt Warm) -Tenderness on Palpation (Laney-wound No Skin Appearance) -Ulcer Cleansing Rinsed/ Irrigated with Saline -Foul Odor after Cleansing No -Anesthetic Used 4% Lidocaine Solution #1 Sacral -Current Size (cm) - Length 4 -Current Size (cm) - Width 5.2 -Current Size (cm) - Depth 0.4 -Total Square Cm 20.8 -Exudate Amt Medium -Exudate Type Serosanguineous -Wound Margin Distinct, Outline Attached -Granulation Amt Large (67-100%) -Granulation Quality Red -Necrosis Amt None Present (0 %) -Texture (Laney-wound Skin Appearance) Assessed, Scarring -Moisture (Laney-wound Skin Appearance) No Abnormality, Assessed -Color (Laney-wound Skin Appearance) No Abnormality, Assessed -Temperature (Laney-wound Skin No Abnormality Appearance) (Pt Warm) -Tenderness on Palpation (Laney-wound No Skin Appearance) -Ulcer Cleansing Rinsed/ Irrigated with Saline -Foul Odor after Cleansing No -Anesthetic Used 4% Lidocaine Solution WC - Nurse 2 - General Ulcer CM Notes Start: 04/09/22 10:04 Freq: Status: Active Protocol: Activity Type Activity Date Activity User E-sign Co-sign Detail Recorded Client Recorded Date Recorded By Document 04/09/22 10:35 NIDHI [id number] 04/09/22 10:38 NIDHI 04/09/22 10:35 Wound Center Nurse 2 #3- R BUTTOCK -Time 10:37 -Correct Patient Yes -Correct Side, Site, Position Yes -Correct Procedure Yes -Procedure Performed Yes -Type of Procedure Debridement -Clinical Debridement Subcutaneous -Tissue Removed Subcutaneous -Post Debridement (cm) - Length 1.1 -Post Debridement (cm) - Width 0.9 -Post Debridement (cm) - Depth 0.1 -Total Square (Post) (cm) 0.99 -Area of Debridement (cm) - Length 1.1 -Area of Debridement (cm) - Width 0.9 -Total Square (Area) (cm) 0.99 -Tunneling No -Undermining/Tunneling No -Circular Undermining No -Wound/Ulcer Outcome Not Healed -Ulcer Cleansing Rinsed/ Irrigated with Saline -Foul Odor after Cleansing No -Bioengineered Tissue No -Bleeding Controlled with Pressure -Treatment Response Procedure Tolerated Well -Offloading No -Pressure Reduction Wheelchair cushion -Debridement - Subq, 1st 20sq cm Yes #1 Sacral -Time 10:36 -Correct Patient Yes -Correct Side, Site, Position Yes -Correct Procedure Yes -Procedure Performed Yes -Type of Procedure Debridement -Clinical Debridement Muscle / Fascia -Tissue Removed Muscle -Post Debridement (cm) - Length 3.7 -Post Debridement (cm) - Width 5.0 -Post Debridement (cm) - Depth 0.4 -Total Square (Post) (cm) 18.50 -Area of Debridement (cm) - Length 3.7 -Area of Debridement (cm) - Width 5.0 -Total Square (Area) (cm) 18.50 -Tunneling No -Undermining/Tunneling No -Circular Undermining No -Wound/Ulcer Outcome Not Healed -Ulcer Cleansing Rinsed/ Irrigated with Saline -Foul Odor after Cleansing No -Bioengineered Tissue No -Bleeding Controlled with Pressure -Treatment Response Procedure Tolerated Well -Offloading No -Pressure Reduction Wheelchair cushion, Specialty bed -Debridement - Muscle / Fascia, 1st Yes 20sq cm Pain Scale: 0-10 Numeric Is Patient Pain Free? Yes - Nurse 3 - General Ulcer D/C NN Start: 04/09/22 10:04 Freq: Status: Active Protocol: Activity Type Activity Date Activity User E-sign Co-sign Detail Recorded Client Recorded Date Recorded By Document 04/09/22 10:45 DIANNE [id number] 04/09/22 10:46 DIANNE 04/09/22 10:45 Wound Care Nurse 3 #3- R BUTTOCK -Ulcer Cleansing Rinsed/ Irrigated with Saline -Primary Dressing Applied Aquacel AG 4x4 -Primary Dressing Covered/Secured with Dry Gauze, Secured with Tape -Aquacel AG 4x4 1 #1 Sacral -Primary Dressing Covered/Secured with Dry Gauze, Secured with Tape Pain Scale: 0-10 Numeric Is Patient Pain Free? Yes - Visit Discharge Discharge Condition Stable Ambulatory Status Wheelchair Transportation Private Auto Additional Wound Wound debrided: Ischial ulcer Laterality: Right Type of Debridement: Excisional debridement Anesthesia Used: 4% Lidocaine Solution Depth: Down to and including healthy tissue and in the subcutaneous layer Percentage of wound debrided: 100 Instrument Used: 3mm curette Tissue Removed: Non viable tissue and slough Severity: Fat Layer Exposed Amount of bleeding with debridement: Mild Bleeding Controlled with: Pressure Patient tolerated procedure: Patient tolerated procedure well Assessment/Plan Assessment/Plan (1) Pressure ulcer of sacral region, stage 4: CODE(S): L89.154 - Pressure ulcer of sacral region, stage 4 (2) Pressure ulcer of right ischium: CODE(S): L89.319 - Pressure ulcer of right buttock, unspecified stage (3) Paraplegia: CODE(S): G82.20 - Paraplegia, unspecified (4) Osteomyelitis of pelvis: CODE(S): M86.9 - Osteomyelitis, unspecified (5) Large B-cell lymphoma: CODE(S): C85.10 - Unspecified B-cell lymphoma, unspecified site PLAN: Plan Wound Care - Sacral ulcer Dakin's 0.25% moistened gauze alternating every other day with Aquacel-Ag topped with ABD or super absorber. The right ischial ulcer we will place Aquacel-Ag and cover with gauze or Mepilex dressing daily. The left ischial ulcer remains heal. Encouraged to massage the healed ulcer 1-2 times a day to help soften the scarring. Laney wound is clear with the barrier cream that they are using. Wound culture 10/07/21 while in the hospital positive for Klebsiella oxytoca, Staphylococcus haemolyticus, and Corynebacterium striatum. Treated with Zosyn and Vanc while hospitalized. Completed Augmentin. Wound culture from 09/12/21 was positive for Staphylococcus haemolyticus and Enterococcus faecalis. Completed Augmentin and Doxycycline and a probiotic. Encourage increased protein intake to help with wound healing. Her family does a really nice job with her wound care. Follow up 3 weeks. Call or come in sooner if have any questions or concerns.
== END 2022-04-19 23:59 | disposition home or self-care (01) ==
LOC: WC 09:43
PROVIDERS: PCP Student in an Organized Health Care Education/Training Program; Visit Provider Nurse Practitioner Family
DX: L89.154 Pressure ulcer of sacral region, stage 4 (principal); G82.20 Paraplegia, unspecified; C85.10 Unspecified B-cell lymphoma, unspecified site; M86.9 Osteomyelitis, unspecified; Z92.3 Personal history of irradiation
CPT/HCPCS: 11042; 11043

== ENCOUNTER 2022-04-30 09:40 | Outpatient (RCR) | payer OTHER, SELFPAY ==
[2022-04-20 00:29] VITALS: BP 160/70; PULSE 77; RESP 16; TEMP 36.1; BMI 25.9
[2022-04-30 09:54] VITALS: BP 143/67; PULSE 50; TEMP 36; BMI 25.9
--- NOTE | 2022-04-30 10:25 | PCM.WC.PN ---
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 She had progressive paraplegia. She went to TCU for acute rehab for this progressive paraplegia. During that time she had worsening sacral pressure sore with skin necrosis. Surgery 05/15/21 - Excision necrotic sacral pressure sore, Stage IV, with partial ostectomy for osteomyelitis. Pathology from surgery on 05/15/21 of bone showed acute osteomyelitis. Operative tissue culture positive for Escherichia coli, Klebsiella, Vanc. Resist. E. gallinarum, Vanc. Resist. E. faecalis. Operative bone culture positive for Escherichia coli, Vanc. Resist. E. faecalis, Vanc. Resist. E. gallinarum. She was on Meropenem, Vancomycin has been stopped and Linezolid started. ID is managing. Radiation from 05/17/21 - 06/12/21 18 treatments to T4-T7 area including paraspinal region. 06/06/21- Laparoscopic sigmoid colectomy with creation of end colostomy for fecal diversion. Was in TCU 06/08/21-07/20/21. Patient had a recent hospitalization on 01/19/2022. She states she had C. difficile. She was discharged on 01/22/2022. While she was hospitalized she developed a new ulcer on her right ischium. Has dry scabbing. Wound Care - Sacral ulcer Dakins 0.25% moistened gauze alternating with Aquacel-Ag covered with ABD/superabsorber dressing daily. Right ischium ulcer place Aquacel- Ag topped with gauze or mepilex daily or every other day if it is not draining much. The left ischial ulcer remains healed. Massage with lotion at least once daily. Place A&D ointment or barrier cream to laney wound to moisturize and protect the skin. She denies any nausea and vomiting. She states that her appetite is improving and she is drinking extra protein shakes. Progress of Wound: Sacral ulcer and right ischial ulcers are much improved. Objective Data Objective Data Vital Signs: Vital Signs Temp Pulse Resp BP 96.8 F L 50 L 16 143/67 H 04/30/22 09:54 04/30/22 09:54 07/01/22 00:29 04/30/22 09:54 Weight: 155 lb 11.464 oz Body Mass Index (BMI) 25.9 Charges/Coding Procedures Integumentary 111xxx-113xx: [id number] Casie subq tissue 20 sq cm/< Physical Exam Const alert and oriented x3 General Appearance: cooperative HEENT normocephalic Resp normal respiratory effort Cardio regular rate Extremity normal capillary refill Skin Wound Narrative: Sacral ulcer is beefy pink and showing improvement. Right ischial is more superficial and appears smaller in size. Left ischial remains healed. Laney wound is clear with no excoriation. Neuro Sensorium / Orientation: awake and alert Psych Appearance: well kempt Debridement Note Debridement Note Wound debrided: Sacral ulcer Wound Grade/Stage: Stage IV Type of Debridement: Excisional debridement Anesthesia Used: 4% Lidocaine Solution Depth: Down to and including healthy tissue and in the subcutaneous layer Percentage of wound debrided: 100 Instrument Used: 5mm curette Tissue Removed: Non viable tissue and slough. Severity: Limited To Skin Breakdown Amount of bleeding with debridement: Mild Bleeding Controlled with: Pressure Patient tolerated procedure: Patient tolerated procedure well Post-Debridement Measurements and Additional Note: Post-Debridement Measurements/Treatment - Nurse 1 - General Ulcer Assessment Start: 04/30/22 09:54 Freq: Status: Active Protocol: KRANTHI Activity Type Activity Date Activity User E-sign Co-sign Detail Recorded Client Recorded Date Recorded By Document 04/30/22 09:54 DIANNE [id number] 04/30/22 09:56 DIANNE 04/30/22 09:54 - Today's Visit Information Type of service Follow-up Visit (Physician/MEDTRONICS TECHNICIAN ) Arrival Mode Wheelchair Transfer Assistance Will Lift Patient Identification Verified (Name & Yes ) Height and Weight Body Mass Index (BMI) 25.9 BMI Classification Overweight Vital Signs Temperature (97.8 F-99.1 F) 96.8 F L Temperature Source Temporal Pulse Rate (60-100) 50 L Pulse Location Monitor Blood Pressure (90/60-120/80) 143/67 H Blood Pressure Mean (mm Hg) 92 Source Monitor Position Semi-Fowlers Blood Pressure Location Right Arm History Since Last Visit- (Skip if this is Patient's initial visit) Have you changed medications since your No last visit? Any new allergies or adverse reactions No Had a fall/change in ADL's that may No increase risk of falls Signs or symptoms of abuse and/or No neglect since last visit Have you been in the hospital since your No last visit? Has dressing in place as prescribed Yes Has compression in place as prescribed N/A Has offloadiing in place as prescribed N/A Experienced any changes in pain level or No management Left Footwear Slipper Right Footwear Slipper Pain Scale: 0-10 Numeric Is Patient Pain Free? Yes WC - Nurse 1 - General Ulcer Measurement Start: 04/30/22 09:54 Freq: Status: Active Protocol: Activity Type Activity Date Activity User E-sign Co-sign Detail Recorded Client Recorded Date Recorded By Document 04/30/22 09:54 DIANNE [id number] 04/30/22 09:56 DIANNE 04/30/22 09:54 Wound Center Nurse 1 #3- R BUTTOCK -Current Size (cm) - Length 0.3 -Current Size (cm) - Width 0.2 -Current Size (cm) - Depth 0.1 -Total Square Cm 0.06 -Exudate Amt Small -Exudate Type Serosanguineous -Wound Margin Distinct, Outline Attached -Necrosis Amt Small (1-33%) -Necrotic Tissue Type Adherent Slough -Texture (Laney-wound Skin Appearance) Assessed, Scarring -Moisture (Laney-wound Skin Appearance) No Abnormality, Assessed -Color (Laney-wound Skin Appearance) No Abnormality, Assessed -Temperature (Laney-wound Skin No Abnormality Appearance) (Pt Warm) -Ulcer Cleansing Rinsed/ Irrigated with Saline -Foul Odor after Cleansing No -Anesthetic Used 5% Lidocaine Gel #1 Sacral -Current Size (cm) - Length 3 -Current Size (cm) - Width 4.7 -Current Size (cm) - Depth 0.2 -Total Square Cm 14.1 -Exudate Amt Small -Exudate Type Serosanguineous -Wound Margin Distinct, Outline Attached -Granulation Amt Large (67-100%) -Granulation Quality [place] -Necrosis Amt None Present (0 %) -Texture (Laney-wound Skin Appearance) Assessed, Scarring -Moisture (Laney-wound Skin Appearance) No Abnormality, Assessed -Color (Laney-wound Skin Appearance) No Abnormality, Assessed -Temperature (Laney-wound Skin No Abnormality Appearance) (Pt Warm) -Tenderness on Palpation (Laney-wound No Skin Appearance) -Ulcer Cleansing Rinsed/ Irrigated with Saline -Foul Odor after Cleansing No -Anesthetic Used 5% Lidocaine Gel WC - Nurse 2 - General Ulcer CM Notes Start: 04/30/22 09:54 Freq: Status: Active Protocol: Activity Type Activity Date Activity User E-sign Co-sign Detail Recorded Client Recorded Date Recorded By Document 04/30/22 10:09 NIDHI [id number] 04/30/22 10:16 NIDHI 04/30/22 10:09 Wound Center Nurse 2 #3- R BUTTOCK -Time 10:10 -Correct Patient Yes -Correct Side, Site, Position Yes -Correct Procedure Yes -Procedure Performed Yes -Type of Procedure Debridement -Clinical Debridement Subcutaneous -Tissue Removed Subcutaneous -Post Debridement (cm) - Length 0.5 -Post Debridement (cm) - Width 0.5 -Post Debridement (cm) - Depth 0.1 -Total Square (Post) (cm) 0.25 -Area of Debridement (cm) - Length 0.5 -Area of Debridement (cm) - Width 0.5 -Total Square (Area) (cm) 0.25 -Tunneling No -Undermining/Tunneling No -Circular Undermining No -Wound/Ulcer Outcome Not Healed -Ulcer Cleansing Rinsed/ Irrigated with Saline -Foul Odor after Cleansing No -Bioengineered Tissue No -Bleeding Controlled with Pressure -Treatment Response Procedure Not Tolerated Well -Offloading No -Pressure Reduction Wheelchair cushion, Specialty bed -Debridement - Subq, 1st 20sq cm Yes #1 Sacral -Time 10:10 -Correct Patient Yes -Correct Side, Site, Position Yes -Correct Procedure Yes -Procedure Performed Yes -Type of Procedure Debridement -Clinical Debridement Subcutaneous -Tissue Removed Subcutaneous -Post Debridement (cm) - Length 2.8 -Post Debridement (cm) - Width 4.5 -Post Debridement (cm) - Depth 0.3 -Total Square (Post) (cm) 12.60 -Area of Debridement (cm) - Length 2.8 -Area of Debridement (cm) - Width 4.5 -Total Square (Area) (cm) 12.60 -Tunneling No -Undermining/Tunneling No -Circular Undermining No -Wound/Ulcer Outcome Not Healed -Ulcer Cleansing Rinsed/ Irrigated with Saline -Foul Odor after Cleansing No -Bioengineered Tissue No -Bleeding Controlled with Pressure,Silver Nitrate -Treatment Response Procedure Tolerated Well -Offloading No -Pressure Reduction Wheelchair cushion, Specialty bed -Debridement - Subq, 1st 20sq cm No Pain Scale: 0-10 Numeric Is Patient Pain Free? Yes Additional Wound Wound debrided: Ischial ulcer Laterality: Right Type of Debridement: Excisional debridement Anesthesia Used: 4% Lidocaine Solution Depth: Down to and including healthy tissue and in the subcutaneous layer Percentage of wound debrided: 100 Instrument Used: 3mm curette Tissue Removed: Non viable tissue and slough Severity: Fat Layer Exposed Amount of bleeding with debridement: Mild Bleeding Controlled with: Pressure Patient tolerated procedure: Patient tolerated procedure well Assessment/Plan Assessment/Plan (1) Pressure ulcer of sacral region, stage 4: CODE(S): L89.154 - Pressure ulcer of sacral region, stage 4 (2) Pressure ulcer of right ischium: CODE(S): L89.319 - Pressure ulcer of right buttock, unspecified stage (3) Paraplegia: CODE(S): G82.20 - Paraplegia, unspecified (4) Osteomyelitis of pelvis: CODE(S): M86.9 - Osteomyelitis, unspecified (5) Large B-cell lymphoma: CODE(S): C85.10 - Unspecified B-cell lymphoma, unspecified site PLAN: Plan Wound Care - Sacral ulcer Dakin's 0.25% moistened gauze topped with ABD or super absorber. The right ischial ulcer we will place Aquacel-Ag and cover with gauze or Mepilex dressing daily. The left ischial ulcer remains heal. Encouraged to massage the healed ulcer 1-2 times a day to help soften the scarring. Laney wound is clear with the barrier cream that they are using. Wound culture 10/07/21 while in the hospital positive for Klebsiella oxytoca, Staphylococcus haemolyticus, and Corynebacterium striatum. Treated with Zosyn and Vanc while hospitalized. Completed Augmentin. Wound culture from 09/12/21 was positive for Staphylococcus haemolyticus and Enterococcus faecalis. Completed Augmentin and Doxycycline and a probiotic. Encourage increased protein intake to help with wound healing. Her family does a really nice job with her wound care. Follow up 3 weeks. Call or come in sooner if have any questions or concerns.
== END 2022-05-20 23:59 | disposition home or self-care (01) ==
LOC: WC 09:40
PROVIDERS: PCP Student in an Organized Health Care Education/Training Program; Visit Provider Nurse Practitioner Family
DX: L89.154 Pressure ulcer of sacral region, stage 4 (principal); G82.20 Paraplegia, unspecified; C85.10 Unspecified B-cell lymphoma, unspecified site; M86.9 Osteomyelitis, unspecified; Z92.3 Personal history of irradiation; L89.319 Pressure ulcer of right buttock, unspecified stage
CPT/HCPCS: 11042

== ENCOUNTER 2022-06-11 10:00 | Outpatient (RCR) | payer OTHER, SELFPAY ==
[2022-05-21 00:24] VITALS: BP 143/67; PULSE 50; RESP 16; TEMP 36; BMI 25.9
[2022-05-21 09:49] VITALS: BP 161/75; PULSE 74; TEMP 35.9; BMI 25.9
--- NOTE | 2022-05-21 13:12 | PCM.WC.PN ---
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 She had progressive paraplegia. She went to TCU for acute rehab for this progressive paraplegia. During that time she had worsening sacral pressure sore with skin necrosis. Surgery 05/15/21 - Excision necrotic sacral pressure sore, Stage IV, with partial ostectomy for osteomyelitis. Pathology from surgery on 05/15/21 of bone showed acute osteomyelitis. Operative tissue culture positive for Escherichia coli, Klebsiella, Vanc. Resist. E. gallinarum, Vanc. Resist. E. faecalis. Operative bone culture positive for Escherichia coli, Vanc. Resist. E. faecalis, Vanc. Resist. E. gallinarum. She was on Meropenem, Vancomycin has been stopped and Linezolid started. ID is managing. Radiation from 05/17/21 - 06/12/21 18 treatments to T4-T7 area including paraspinal region. 06/06/21- Laparoscopic sigmoid colectomy with creation of end colostomy for fecal diversion. Was in TCU 06/08/21-07/20/21. Patient had a recent hospitalization on 01/19/2022. She states she had C. difficile. She was discharged on 01/22/2022. While she was hospitalized she developed a new ulcer on her right ischium. Has dry scabbing. Wound Care - Sacral ulcer Dakins 0.25% moistened gauze or if it gets to difficulty to pack with the Dakin's then Aquacel-Ag covered with gauze/ABD/superabsorber dressing daily. Right ischium ulcer is healed today. The left ischial area has a new excoriated area that will place either Aquaphor or collagen hydrogel covered with gauze daily. Place A&D ointment or barrier cream to laney wound to moisturize and protect the skin. She denies any nausea and vomiting. She states that her appetite is improving and she is drinking extra protein shakes. Progress of Wound: Sacrl ulcer and is much improved, it is beefy pink. Left ischial area is newly excoriated, from a sheering force. Right ischial ulcer is healed today. Objective Data Objective Data Vital Signs: Vital Signs Temp Pulse Resp BP 96.6 F L 74 16 161/75 H 05/21/22 09:49 05/21/22 09:49 05/21/22 00:24 05/21/22 09:49 Weight: 155 lb 11.464 oz Body Mass Index (BMI) 25.9 Charges/Coding Procedures Integumentary 111xxx-113xx: 34899 Casie subq tissue 20 sq cm/< Physical Exam Const alert and oriented x3 General Appearance: cooperative HEENT normocephalic Resp normal respiratory effort Cardio regular rate Extremity normal capillary refill Skin Wound Narrative: Sacral ulcer is beefy pink and is smaller in size and depth. Right ischial ulcer is healed today. Left ischial area with new excoriated area that looks like it was caused by sheering force, it is pink and very superficial. Neuro Sensorium / Orientation: awake and alert Psych Appearance: well kempt Debridement Note Debridement Note Wound debrided: Sacral ulcer Wound Grade/Stage: Stage IV Type of Debridement: Excisional debridement Anesthesia Used: 4% Lidocaine Solution Depth: Down to and including healthy tissue and in the subcutaneous layer Percentage of wound debrided: 100 Instrument Used: 5mm curette Tissue Removed: Non viable tissue and slough. Severity: Limited To Skin Breakdown Amount of bleeding with debridement: Mild Bleeding Controlled with: Pressure and Compression and gauze Patient tolerated procedure: Patient tolerated procedure well Post-Debridement Measurements and Additional Note: Post-Debridement Measurements/Treatment WC - Nurse 1 - General Ulcer Assessment Start: 05/21/22 09:48 Freq: Status: Active Protocol: KRANTHI Activity Type Activity Date Activity User E-sign Co-sign Detail Recorded Client Recorded Date Recorded By Document 05/21/22 09:49 NM [id number] 05/21/22 09:52 ALAN 05/21/22 09:49 - Today's Visit Information Type of service Follow-up Visit (Physician/TABLE GAMES MANAGER ) Arrival Mode Wheelchair Patient Identification Verified (Name & Yes ) Height and Weight Body Mass Index (BMI) 25.9 BMI Classification Overweight Vital Signs Temperature (97.8 F-99.1 F) 96.6 F L Temperature Source Temporal Pulse Rate (60-100) 74 Pulse Location Monitor Blood Pressure (90/60-120/80) 161/75 H Blood Pressure Mean (mm Hg) 103 Source Monitor Position Semi-Fowlers Blood Pressure Location Left Arm History Since Last Visit- (Skip if this is Patient's initial visit) Have you changed medications since your No last visit? Any new allergies or adverse reactions No Had a fall/change in ADL's that may No increase risk of falls Signs or symptoms of abuse and/or No neglect since last visit Have you been in the hospital since your No last visit? Has dressing in place as prescribed Yes Has compression in place as prescribed N/A Has offloadiing in place as prescribed N/A Experienced any changes in pain level or No management Left Footwear Slipper Right Footwear Slipper Pain Scale: 0-10 Numeric Is Patient Pain Free? Yes WC - Nurse 1 - General Ulcer Measurement Start: 05/21/22 09:48 Freq: Status: Active Protocol: Activity Type Activity Date Activity User E-sign Co-sign Detail Recorded Client Recorded Date Recorded By Document 05/21/22 09:49 ALAN [id number] 05/21/22 09:52 ALAN 05/21/22 09:49 Wound Center Nurse 1 #3- R BUTTOCK -Current Size (cm) - Length 0.1 -Current Size (cm) - Width 0.1 -Current Size (cm) - Depth 0.1 -Total Square Cm 0.01 -Exudate Amt None Present -Wound Margin Distinct, Outline Attached -Granulation Amt None Present (0 %) -Necrosis Amt None Present (0 %) -Texture (Laney-wound Skin Appearance) Assessed, Scarring -Moisture (Laney-wound Skin Appearance) Assessed,Dry/ Scaly -Color (Laney-wound Skin Appearance) No Abnormality, Assessed -Temperature (Laney-wound Skin No Abnormality Appearance) (Pt Warm) -Ulcer Cleansing Rinsed/ Irrigated with Saline -Foul Odor after Cleansing No -Anesthetic Used 5% Lidocaine Gel #1 Sacral -Current Size (cm) - Length 3.2 -Current Size (cm) - Width 3 -Current Size (cm) - Depth 0.3 -Total Square Cm 9.6 -Exudate Amt Medium -Exudate Type Serosanguineous -Wound Margin Distinct, Outline Attached -Granulation Amt Medium (34-66%) -Granulation Quality [place] -Necrosis Amt Small (1-33%) -Necrotic Tissue Type Adherent Slough -Texture (Laney-wound Skin Appearance) Assessed, Scarring -Moisture (Laney-wound Skin Appearance) No Abnormality, Assessed -Color (Laney-wound Skin Appearance) No Abnormality, Assessed -Temperature (Laney-wound Skin No Abnormality Appearance) (Pt Warm) -Tenderness on Palpation (Laney-wound No Skin Appearance) -Ulcer Cleansing Rinsed/ Irrigated with Saline -Foul Odor after Cleansing No -Anesthetic Used 5% Lidocaine Gel WC - Nurse 2 - General Ulcer CM Notes Start: 05/21/22 09:48 Freq: Status: Active Protocol: Activity Type Activity Date Activity User E-sign Co-sign Detail Recorded Client Recorded Date Recorded By Document 05/21/22 10:20 NIDHI [id number] 05/21/22 10:22 NIDHI 05/21/22 10:20 Wound Center Nurse 2 #3- R BUTTOCK -Correct Patient No -Correct Side, Site, Position No -Correct Procedure No -Procedure Performed No -Post Debridement (cm) - Length 0 -Post Debridement (cm) - Width 0 -Post Debridement (cm) - Depth 0 -Total Square (Post) (cm) 0 -Area of Debridement (cm) - Length 0 -Area of Debridement (cm) - Width 0 -Total Square (Area) (cm) 0 -Wound/Ulcer Outcome Healed- Epithelialized #1 Sacral -Time 10:21 -Correct Patient Yes -Correct Side, Site, Position Yes -Correct Procedure Yes -Procedure Performed Yes -Type of Procedure Debridement -Clinical Debridement Subcutaneous -Tissue Removed Subcutaneous -Post Debridement (cm) - Length 2.7 -Post Debridement (cm) - Width 4 -Post Debridement (cm) - Depth 0.3 -Total Square (Post) (cm) 10.8 -Area of Debridement (cm) - Length 2.7 -Area of Debridement (cm) - Width 4 -Total Square (Area) (cm) 10.8 -Tunneling No -Undermining/Tunneling No -Circular Undermining No -Wound/Ulcer Outcome Not Healed -Ulcer Cleansing Rinsed/ Irrigated with Saline -Foul Odor after Cleansing No -Bioengineered Tissue No -Bleeding Controlled with Pressure -Treatment Response Procedure Tolerated Well -Offloading No -Debridement - Subq, 1st 20sq cm Yes Pain Scale: 0-10 Numeric Is Patient Pain Free? Yes NICOLAS - Nurse 3 - General Ulcer D/C NN Start: 05/21/22 09:48 Freq: Status: Active Protocol: Activity Type Activity Date Activity User E-sign Co-sign Detail Recorded Client Recorded Date Recorded By Document 05/21/22 10:42 NAI [id number] 05/21/22 10:44 NAI 05/21/22 10:42 Wound Care Nurse 3 #1 Sacral -Ulcer Cleansing Rinsed/ Irrigated with Saline -Foul Odor after Cleansing No -Other Dressing Cee today -Primary Dressing Covered/Secured with Dry Gauze, Secured with Tape Treatment Response Procedure Tolerated Well Pain Scale: 0-10 Numeric Is Patient Pain Free? Yes WC - Visit Discharge Discharge Condition Stable Ambulatory Status Wheelchair Transportation Private Auto Accompanied by family Notes: Resume [place]yl at home Assessment/Plan Assessment/Plan (1) Pressure ulcer of sacral region, stage 4: CODE(S): L89.154 - Pressure ulcer of sacral region, stage 4 (2) Pressure ulcer of right ischium: CODE(S): L89.319 - Pressure ulcer of right buttock, unspecified stage (3) Paraplegia: CODE(S): G82.20 - Paraplegia, unspecified (4) Osteomyelitis of pelvis: CODE(S): M86.9 - Osteomyelitis, unspecified (5) Large B-cell lymphoma: CODE(S): C85.10 - Unspecified B-cell lymphoma, unspecified site (6) Decubitus ulcer of left ischium, stage 2: CODE(S): L89.322 - Pressure ulcer of left buttock, stage 2 PLAN: Plan Wound Care - Sacral ulcer Dakin's 0.25% moistened gauze topped with ABD or super absorber. If this area becomes too difficult to pack with the dressing, then use Aquacel-Ag daily covered with guaze. The right ischial ulcer is healed today. The left ischial ulcer has excoriation, place either collagen hydrogel or Aquaphor on it daily. Encouraged to massage the healed areas 1-2 times a day to help soften the scarring. Laney wound is clear with the barrier cream that they are using. Wound culture 10/07/21 while in the hospital positive for Klebsiella oxytoca, Staphylococcus haemolyticus, and Corynebacterium striatum. Treated with Zosyn and Vanc while hospitalized. Completed Augmentin. Wound culture from 09/12/21 was positive for Staphylococcus haemolyticus and Enterococcus faecalis. Completed Augmentin and Doxycycline and a probiotic. Encourage increased protein intake to help with wound healing. Her family does a really nice job with her wound care. Follow up 3 weeks. Call or come in sooner if have any questions or concerns.
[2022-06-11 09:50] VITALS: BP 150/71; PULSE 79; TEMP 36.6; BMI 25.9
--- NOTE | 2022-06-11 11:51 | PN.PCM_ITS ---
History of Present Illness Date of Service: 06/11/22 Chief Complaint: Sacral ulcer History of Wound: CHRISTOPHER CORONEL, is a 76 Female with history of diffuse large B- cell lymphoma,who had emergency evacuation, biopsy of epidural mass causing T4- T7 spinal cord compression. She had progressive paraplegia. She went to TCU for acute rehab for this progressive paraplegia. During that time she had worsening sacral pressure sore with skin necrosis. Surgery 05/15/21 - Excision necrotic sacral pressure sore, Stage IV, with partial ostectomy for osteomyelitis. Pathology from surgery on 05/15/21 of bone showed acute osteomyelitis. Operative tissue culture positive for Escherichia coli, Klebsiella, Vanc. Resist. E. gallinarum, Vanc. Resist. E. faecalis. Operative bone culture positive for Escherichia coli, Vanc. Resist. E. faecalis, Vanc. Resist. E. gallinarum. She was on Meropenem, Vancomycin has been stopped and Linezolid started. ID is managing. Radiation from 05/17/21 - 06/12/21 18 treatments to T4-T7 area including paraspinal region. 06/06/21- Laparoscopic sigmoid colectomy with creation of end colostomy for fecal diversion. Was in TCU 06/08/21-07/20/21. Patient had a recent hospitalization on 01/19/2022. She states she had C. difficile. She was discharged on 01/22/2022. While she was hospitalized she developed a new ulcer on her right ischium. Has dry scabbing. Wound Care - Sacral ulcer Dakins 0.25% moistened gauze or if it gets to difficulty to pack with the Dakin's then Aquacel-Ag covered with gauze/ABD/superabsorber dressing daily. Right ischium ulcer remains healed. The left ischial is healed. Place A&D ointment or barrier cream to laney wound of sacral ulcer to moisturize and protect the skin. She denies any nausea and vomiting. She states that her appetite is improving and she is drinking extra protein shakes. Progress of Wound: Sacral ulcer and is improved, it is beefy pink. Her laney wound is more excoriated today. Her family states she has been having issues with her catheter leaking. Left ischial excoriation has resolved and the right ischial ulcer remains healed. Objective Data Objective Data Vital Signs: Vital Signs Temp Pulse Resp BP 97.9 F 79 16 150/71 H 06/11/22 09:50 06/11/22 09:50 05/21/22 00:24 06/11/22 09:50 Weight: 155 lb 11.464 oz Body Mass Index (BMI) 25.9 Charges/Coding Procedures Integumentary 111xxx-113xx: 02699 Casie subq tissue 20 sq cm/< Physical Exam Const alert and oriented x3 General Appearance: cooperative HEENT normocephalic Resp normal respiratory effort Cardio regular rate Extremity normal capillary refill Skin Wound Narrative: Sacral ulcer and is improved, it is beefy pink. Her laney wound is more excoriated today. Left ischial excoriation has resolved and the right ischial ulcer remains healed. Neuro Sensorium / Orientation: awake and alert Psych Appearance: well kempt Debridement Note Debridement Note Wound debrided: Sacral ulcer Wound Grade/Stage: Stage IV Type of Debridement: Excisional debridement Anesthesia Used: 4% Lidocaine Solution Depth: Down to and including healthy tissue and in the subcutaneous layer Percentage of wound debrided: 100 Instrument Used: 5mm curette Tissue Removed: Non viable tissue and slough. Severity: Limited To Skin Breakdown Amount of bleeding with debridement: Mild Bleeding Controlled with: Pressure and Compression and gauze Patient tolerated procedure: Patient tolerated procedure well Post-Debridement Measurements and Additional Note: Post-Debridement Measurements/Treatment WC - Nurse 1 - General Ulcer Assessment Start: 05/21/22 09:48 Freq: Status: Active Protocol: NICOLAS.FLACO Activity Type Activity Date Activity User E-sign Co-sign Detail Recorded Client Recorded Date Recorded By Document 05/21/22 09:49 AK [id number] 05/21/22 09:52 AK Document 06/11/22 09:50 KR [id number] 06/11/22 09:59 KR 05/21/22 06/11/22 09:49 09:50 - Today's Visit Information Type of service Follow-up Visit Follow-up Visit (Physician/PROVIDER EDUCATION SPECIALIST (Physician/PROVIDER EDUCATION SPECIALIST ) ) Arrival Mode Wheelchair Wheelchair Transfer Assistance Will Lift Patient Identification Verified (Name & Yes Yes ) Height and Weight Body Mass Index (BMI) 25.9 25.9 BMI Classification Overweight Overweight Vital Signs Temperature (97.8 F-99.1 F) 96.6 F L 97.9 F Temperature Source Temporal Temporal Pulse Rate (60-100) 74 79 Pulse Location Monitor Monitor Blood Pressure (90/60-120/80) 161/75 H 150/71 H Blood Pressure Mean (mm Hg) 103 97 Source Monitor Monitor Position Semi-Fowlers Semi-Fowlers Blood Pressure Location Left Arm Left Arm History Since Last Visit- (Skip if this is Patient's initial visit) Have you changed medications since your No No last visit? Any new allergies or adverse reactions No No Had a fall/change in ADL's that may No No increase risk of falls Signs or symptoms of abuse and/or No No neglect since last visit Have you been in the hospital since your No No last visit? Has dressing in place as prescribed Yes Yes Has compression in place as prescribed N/A N/A Has offloadiing in place as prescribed N/A N/A Experienced any changes in pain level or No No management Left Footwear Slipper Slipper Right Footwear Slipper Slipper Pain Scale: 0-10 Numeric Is Patient Pain Free? Yes Yes WC - Nurse 1 - General Ulcer Measurement Start: 05/21/22 09:48 Freq: Status: Active Protocol: Activity Type Activity Date Activity User E-sign Co-sign Detail Recorded Client Recorded Date Recorded By Document 05/21/22 09:49 AK [id number] 05/21/22 09:52 AK Document 06/11/22 09:50 KR [id number] 06/11/22 09:59 KR 05/21/22 06/11/22 09:49 09:50 Wound Center Nurse 1 #3- R BUTTOCK -Current Size (cm) - Length 0.1 -Current Size (cm) - Width 0.1 -Current Size (cm) - Depth 0.1 -Total Square Cm 0.01 -Exudate Amt None Present -Wound Margin Distinct, Outline Attached -Granulation Amt None Present (0 %) -Necrosis Amt None Present (0 %) -Texture (Laney-wound Skin Appearance) Assessed, Scarring -Moisture (Laney-wound Skin Appearance) Assessed,Dry/ Scaly -Color (Laney-wound Skin Appearance) No Abnormality, Assessed -Temperature (Laney-wound Skin No Abnormality Appearance) (Pt Warm) -Ulcer Cleansing Rinsed/ Irrigated with Saline -Foul Odor after Cleansing No -Anesthetic Used 5% Lidocaine Gel #1 Sacral -Current Size (cm) - Length 3.2 3.4 -Current Size (cm) - Width 3 2 -Current Size (cm) - Depth 0.3 0.1 -Total Square Cm 9.6 6.8 -Undermining/Tunneling Starts (O'clock 11 ) -Undermining/Tunneling Ends (O'clock) 12 -Maximum Distance (cm) 1.3 -Exudate Amt Medium Large -Exudate Type Serosanguineous Serosanguineous -Wound Margin Distinct, Distinct, Outline Outline Attached Attached -Granulation Amt Medium (34-66%) Large (67-100%) -Granulation Quality [place] -Necrosis Amt Small (1-33%) None Present (0 %) -Necrotic Tissue Type Adherent Slough -Texture (Laney-wound Skin Appearance) Assessed, Assessed, Scarring Scarring -Moisture (Laney-wound Skin Appearance) No Abnormality, No Abnormality, Assessed Assessed -Color (Laney-wound Skin Appearance) No Abnormality, No Abnormality, Assessed Assessed -Temperature (Laney-wound Skin No Abnormality No Abnormality Appearance) (Pt Warm) (Pt Warm) -Tenderness on Palpation (Laney-wound No No Skin Appearance) -Ulcer Cleansing Rinsed/ Rinsed/ Irrigated with Irrigated with Saline Saline -Foul Odor after Cleansing No No -Anesthetic Used 5% Lidocaine 5% Lidocaine Gel Gel WC - Nurse 2 - General Ulcer CM Notes Start: 05/21/22 09:48 Freq: Status: Active Protocol: Activity Type Activity Date Activity User E-sign Co-sign Detail Recorded Client Recorded Date Recorded By Document 05/21/22 10:20 [id number] 05/21/22 10:22 Document 06/11/22 10:20 [id number] 06/11/22 10:28 05/21/22 06/11/22 10:20 10:20 Wound Center Nurse 2 #3- R BUTTOCK -Correct Patient No -Correct Side, Site, Position No -Correct Procedure No -Procedure Performed No -Post Debridement (cm) - Length 0 -Post Debridement (cm) - Width 0 -Post Debridement (cm) - Depth 0 -Total Square (Post) (cm) 0 -Area of Debridement (cm) - Length 0 -Area of Debridement (cm) - Width 0 -Total Square (Area) (cm) 0 -Wound/Ulcer Outcome Healed- Epithelialized #1 Sacral -Time 10:21 10:22 -Correct Patient Yes Yes -Correct Side, Site, Position Yes Yes -Correct Procedure Yes Yes -Procedure Performed Yes Yes -Type of Procedure Debridement Debridement -Clinical Debridement Subcutaneous Subcutaneous -Tissue Removed Subcutaneous Subcutaneous -Post Debridement (cm) - Length 2.7 3.0 -Post Debridement (cm) - Width 4 3.2 -Post Debridement (cm) - Depth 0.3 0.4 -Total Square (Post) (cm) 10.8 9.60 -Area of Debridement (cm) - Length 2.7 3.0 -Area of Debridement (cm) - Width 4 3.2 -Total Square (Area) (cm) 10.8 9.60 -Tunneling No -Undermining/Tunneling No No -Circular Undermining No No -Wound/Ulcer Outcome Not Healed Not Healed -Ulcer Cleansing Rinsed/ Rinsed/ Irrigated with Irrigated with Saline Saline -Foul Odor after Cleansing No No -Bioengineered Tissue No No -Bleeding Controlled with Pressure Pressure,Silver Nitrate -Treatment Response Procedure Procedure Tolerated Well Tolerated Well -Offloading No No -Pressure Reduction Wheelchair cushion -Debridement - Subq, 1st 20sq cm Yes Yes Pain Scale: 0-10 Numeric Is Patient Pain Free? Yes Yes - Nurse 3 - General Ulcer D/C NN Start: 05/21/22 09:48 Freq: Status: Active Protocol: Activity Type Activity Date Activity User E-sign Co-sign Detail Recorded Client Recorded Date Recorded By Document 05/21/22 10:42 DL [id number] 05/21/22 10:44 DL Document 06/11/22 10:38 KR [id number] 06/11/22 10:39 KR 05/21/22 06/11/22 10:42 10:38 Wound Care Nurse 3 #1 Sacral -Ulcer Cleansing Rinsed/ Rinsed/ Irrigated with Irrigated with Saline Saline -Foul Odor after Cleansing No -Other Dressing Cee today wet to dry with dakins -Primary Dressing Covered/Secured with Dry Gauze, Dry Gauze, Secured with Secured with Tape Tape Treatment Response Procedure Tolerated Well Pain Scale: 0-10 Numeric Is Patient Pain Free? Yes Yes - Visit Discharge Discharge Condition Stable Stable Ambulatory Status Wheelchair Wheelchair Transportation Private Auto Private Auto Accompanied by family and daughter Notes: Resume [place]rie at home Assessment/Plan Assessment/Plan (1) Pressure ulcer of sacral region, stage 4: CODE(S): L89.154 - Pressure ulcer of sacral region, stage 4 (2) Pressure ulcer of right ischium: CODE(S): L89.319 - Pressure ulcer of right buttock, unspecified stage (3) Paraplegia: CODE(S): G82.20 - Paraplegia, unspecified (4) Osteomyelitis of pelvis: CODE(S): M86.9 - Osteomyelitis, unspecified (5) Large B-cell lymphoma: CODE(S): C85.10 - Unspecified B-cell lymphoma, unspecified site (6) Decubitus ulcer of left ischium, stage 2: CODE(S): L89.322 - Pressure ulcer of left buttock, stage 2 PLAN: Plan Wound Care - Sacral ulcer Dakin's 0.25% moistened gauze topped with ABD or super absorber. If this area becomes too difficult to pack with the dressing, then use Aquacel-Ag daily covered with gauze. Laney wound of the sacral ulcer is more excoriated, encouraged to use barrier cream, such as Aquaphor or Calmoseptine cream 2 times daily. The right ischial ulcer remains healed. The left ischial excoriation is improved. Encouraged to massage the healed areas 1-2 times a day with aquaphor/barrier cream with no zinc in it to help soften the scarring. Wound culture 10/07/21 while in the hospital positive for Klebsiella oxytoca, Staphylococcus haemolyticus, and Corynebacterium striatum. Treated with Zosyn and Vanc while hospitalized. Completed Augmentin. Wound culture from 09/12/21 was positive for Staphylococcus haemolyticus and Enterococcus faecalis. Completed Augmentin and Doxycycline and a probiotic. Encourage increased protein intake to help with wound healing. Her family does a really nice job with her wound care. Follow up 3 weeks. Call or come in sooner if have any questions or concerns.
== END 2022-06-20 23:59 | disposition home or self-care (01) ==
LOC: WC 10:00
PROVIDERS: PCP Student in an Organized Health Care Education/Training Program; Visit Provider Nurse Practitioner Family
DX: L89.154 Pressure ulcer of sacral region, stage 4 (principal); G82.20 Paraplegia, unspecified; C85.10 Unspecified B-cell lymphoma, unspecified site; L89.322 Pressure ulcer of left buttock, stage 2; M86.8X8 Other osteomyelitis, other site; Z92.3 Personal history of irradiation
CPT/HCPCS: 11042

== ENCOUNTER 2022-07-02 09:56 | Outpatient (RCR) | payer OTHER, SELFPAY ==
[2022-06-21 00:27] VITALS: BP 150/71; PULSE 79; RESP 16; TEMP 36.6; BMI 25.9
[2022-07-02 10:02] VITALS: BP 149/70; PULSE 55; TEMP 36.1; BMI 25.9
--- NOTE | 2022-07-02 10:54 | PN.PCM_ITS ---
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 She had progressive paraplegia. She went to TCU for acute rehab for this progressive paraplegia. During that time she had worsening sacral pressure sore with skin necrosis. Surgery 05/15/21 - Excision necrotic sacral pressure sore, Stage IV, with partial ostectomy for osteomyelitis. Pathology from surgery on 05/15/21 of bone showed acute osteomyelitis. Operative tissue culture positive for Escherichia coli, Klebsiella, Vanc. Resist. E. gallinarum, Vanc. Resist. E. faecalis. Operative bone culture positive for Escherichia coli, Vanc. Resist. E. faecalis, Vanc. Resist. E. gallinarum. She was on Meropenem, Vancomycin has been stopped and Linezolid started. ID is managing. Radiation from 05/17/21 - 06/12/21 18 treatments to T4-T7 area including paraspinal region. 06/06/21- Laparoscopic sigmoid colectomy with creation of end colostomy for fecal diversion. Was in TCU 06/08/21-07/20/21. Patient had a recent hospitalization on 01/19/2022. She states she had C. difficile. She was discharged on 01/22/2022. While she was hospitalized she developed a new ulcer on her right ischium. Has dry scabbing. Wound Care - Sacral ulcer Dakins 0.25% moistened gauze or if it gets to difficulty to pack with the Dakin's then Aquacel-Ag covered with gauze/ABD/superabsorber dressing daily. Right ischium ulcer remains healed. The left ischial is healed. Place A&D ointment or barrier cream to laney wound of sacral ulcer to moisturize and protect the skin. She denies any nausea and vomiting. She states that her appetite is improving and she is drinking extra protein shakes. Progress of Wound: Sacral ulcer is improved. Her laney wound is no longer erythematous. They have been using calmaseptine skin barrier on her laney wound. She continues to have issues with her catheter leaking. Objective Data Objective Data Vital Signs: Vital Signs Temp Pulse Resp BP 97.0 F L 55 L 16 149/70 H 07/02/22 10:02 07/02/22 10:02 06/21/22 00:27 07/02/22 10:02 Weight: 155 lb 11.464 oz Body Mass Index (BMI) 25.9 Charges/Coding Procedures Integumentary 111xxx-113xx: 15182 Casie subq tissue 20 sq cm/< Physical Exam Const alert and oriented x3 General Appearance: cooperative HEENT normocephalic Resp normal respiratory effort Cardio regular rate Extremity normal capillary refill Skin Wound Narrative: Sacral ulcer and is improved, it is beefy pink. Her laney wound has improved and not as excoriated as her last visit. Neuro Sensorium / Orientation: awake and alert Psych Appearance: well kempt Debridement Note Debridement Note Wound debrided: Sacral ulcer Wound Grade/Stage: Stage IV Type of Debridement: Excisional debridement Anesthesia Used: 4% Lidocaine Solution Depth: Down to and including healthy tissue and in the subcutaneous layer Percentage of wound debrided: 100 Instrument Used: 5mm curette Tissue Removed: Non viable tissue and slough. Severity: Limited To Skin Breakdown Amount of bleeding with debridement: Mild Bleeding Controlled with: Pressure and Compression and gauze Patient tolerated procedure: Patient tolerated procedure well Post-Debridement Measurements and Additional Note: Post-Debridement Measurements/Treatment - Nurse 1 - General Ulcer Assessment Start: 07/02/22 10:02 Freq: Status: Active Protocol: KRANTHI Activity Type Activity Date Activity User E-sign Co-sign Detail Recorded Client Recorded Date Recorded By Document 07/02/22 10:02 DIANNE [id number] 07/02/22 10:09 DIANNE 07/02/22 10:02 - Today's Visit Information Type of service Follow-up Visit (Physician/CLINICAL REVIEW SPECIALIST ) Transfer Assistance Will Lift Accompanied by Patient Identification Verified (Name & Yes ) Height and Weight Body Mass Index (BMI) 25.9 BMI Classification Overweight Vital Signs Temperature (97.8 F-99.1 F) 97.0 F L Temperature Source Temporal Pulse Rate (60-100) 55 L Pulse Location Monitor Blood Pressure (90/60-120/80) 149/70 H Blood Pressure Mean (mm Hg) 96 Source Monitor Position Semi-Fowlers Blood Pressure Location Right Arm History Since Last Visit- (Skip if this is Patient's initial visit) Have you changed medications since your No last visit? Any new allergies or adverse reactions No Had a fall/change in ADL's that may No increase risk of falls Signs or symptoms of abuse and/or No neglect since last visit Have you been in the hospital since your No last visit? Has dressing in place as prescribed Yes Has compression in place as prescribed N/A Has offloadiing in place as prescribed N/A Experienced any changes in pain level or No management Left Footwear Regular Shoe Right Footwear Regular Shoe Pain Scale: 0-10 Numeric Is Patient Pain Free? Yes WC - Nurse 1 - General Ulcer Measurement Start: 07/02/22 10:02 Freq: Status: Active Protocol: Activity Type Activity Date Activity User E-sign Co-sign Detail Recorded Client Recorded Date Recorded By Document 07/02/22 10:02 DIANNE [id number] 07/02/22 10:09 DIANNE 07/02/22 10:02 Wound Center Nurse 1 #1 Sacral -Current Size (cm) - Length 3 -Current Size (cm) - Width 2.3 -Current Size (cm) - Depth 0.1 -Total Square Cm 6.9 -Undermining/Tunneling Starts (O'clock 9 ) -Undermining/Tunneling Ends (O'clock) 12 -Maximum Distance (cm) 0.5 -Exudate Amt Medium -Exudate Type Serosanguineous -Wound Margin Distinct, Outline Attached -Granulation Amt Large (67-100%) -Granulation Quality [place] -Necrosis Amt None Present (0 %) -Texture (Laney-wound Skin Appearance) Assessed, Scarring -Moisture (Laney-wound Skin Appearance) No Abnormality, Assessed -Color (Laney-wound Skin Appearance) No Abnormality, Assessed -Temperature (Laney-wound Skin No Abnormality Appearance) (Pt Warm) -Tenderness on Palpation (Laney-wound No Skin Appearance) -Ulcer Cleansing Rinsed/ Irrigated with Saline -Foul Odor after Cleansing No -Anesthetic Used 5% Lidocaine Gel NICOLAS - Nurse 2 - General Ulcer CM Notes Start: 07/02/22 10:02 Freq: Status: Active Protocol: Activity Type Activity Date Activity User E-sign Co-sign Detail Recorded Client Recorded Date Recorded By Document 07/02/22 10:27 NIDHI [id number] 07/02/22 10:32 NIDHI 07/02/22 10:27 Wound Center Nurse 2 -Time 10:29 -Correct Patient Yes -Correct Side, Site, Position Yes -Correct Procedure Yes -Procedure Performed Yes -Type of Procedure Debridement -Clinical Debridement Subcutaneous -Tissue Removed Subcutaneous -Post Debridement (cm) - Length 1.7 -Post Debridement (cm) - Width 3.7 -Post Debridement (cm) - Depth 0.3 -Total Square (Post) (cm) 6.29 -Area of Debridement (cm) - Length 1.7 -Area of Debridement (cm) - Width 3.7 -Total Square (Area) (cm) 6.29 -Tunneling No -Undermining/Tunneling No -Circular Undermining No -Wound/Ulcer Outcome Not Healed -Ulcer Cleansing Rinsed/ Irrigated with Saline -Foul Odor after Cleansing No -Bioengineered Tissue No -Bleeding Controlled with Pressure,Silver Nitrate -Treatment Response Procedure Tolerated Well -Offloading No -Pressure Reduction Wheelchair cushion -Debridement - Subq, 1st 20sq cm Yes Pain Scale: 0-10 Numeric Is Patient Pain Free? Yes Assessment/Plan Assessment/Plan (1) Pressure ulcer of sacral region, stage 4: CODE(S): L89.154 - Pressure ulcer of sacral region, stage 4 (2) Pressure ulcer of right ischium: CODE(S): L89.319 - Pressure ulcer of right buttock, unspecified stage (3) Paraplegia: CODE(S): G82.20 - Paraplegia, unspecified (4) Osteomyelitis of pelvis: CODE(S): M86.9 - Osteomyelitis, unspecified (5) Large B-cell lymphoma: CODE(S): C85.10 - Unspecified B-cell lymphoma, unspecified site (6) Decubitus ulcer of left ischium, stage 2: CODE(S): L89.322 - Pressure ulcer of left buttock, stage 2 PLAN: Plan Wound Care - Sacral ulcer Dakin's 0.25% moistened gauze topped with ABD or super absorber. If this area becomes too difficult to pack with the dressing, then use Aquacel-Ag daily covered with gauze. Laney wound of the sacral ulcer is more excoriated, encouraged to use barrier cream, such as Aquaphor or Calmoseptine cream 2 times daily. The right ischial ulcer remains healed. The left ischial excoriation is improved. Encouraged to massage the healed areas 1-2 times a day with aquaphor/barrier cream with no zinc in it to help soften the scarring. Wound culture 10/07/21 while in the hospital positive for Klebsiella oxytoca, Staphylococcus haemolyticus, and Corynebacterium striatum. Treated with Zosyn and Vanc while hospitalized. Completed Augmentin. Wound culture from 09/12/21 was positive for Staphylococcus haemolyticus and Enterococcus faecalis. Completed Augmentin and Doxycycline and a probiotic. Encourage increased protein intake to help with wound healing. Her family does a really nice job with her wound care. Follow up 3 weeks. Call or come in sooner if have any questions or concerns.
== END 2022-07-20 23:59 | disposition home or self-care (01) ==
LOC: WC 09:56
PROVIDERS: PCP Student in an Organized Health Care Education/Training Program; Visit Provider Nurse Practitioner Family
DX: L89.154 Pressure ulcer of sacral region, stage 4 (principal); G82.20 Paraplegia, unspecified; C85.10 Unspecified B-cell lymphoma, unspecified site
CPT/HCPCS: 11042

== ENCOUNTER 2022-08-13 10:00 | Outpatient (RCR) | payer OTHER, SELFPAY ==
[2022-07-21 01:12] VITALS: BP 149/70; PULSE 55; RESP 16; TEMP 36.1; BMI 25.9
[2022-07-23 09:50] VITALS: BP 129/66; PULSE 54; TEMP 36.1; BMI 25.9
--- NOTE | 2022-07-23 10:37 | PCM.WC.PN ---
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 She had progressive paraplegia. She went to TCU for acute rehab for this progressive paraplegia. During that time she had worsening sacral pressure sore with skin necrosis. Surgery 05/15/21 - Excision necrotic sacral pressure sore, Stage IV, with partial ostectomy for osteomyelitis. Pathology from surgery on 05/15/21 of bone showed acute osteomyelitis. Operative tissue culture positive for Escherichia coli, Klebsiella, Vanc. Resist. E. gallinarum, Vanc. Resist. E. faecalis. Operative bone culture positive for Escherichia coli, Vanc. Resist. E. faecalis, Vanc. Resist. E. gallinarum. She was on Meropenem, Vancomycin has been stopped and Linezolid started. ID is managing. Radiation from 05/17/21 - 06/12/21 18 treatments to T4-T7 area including paraspinal region. 06/06/21- Laparoscopic sigmoid colectomy with creation of end colostomy for fecal diversion. Was in TCU 06/08/21-07/20/21. Patient had a recent hospitalization on 01/19/2022. She states she had C. difficile. She was discharged on 01/22/2022. While she was hospitalized she developed a new ulcer on her right ischium. Has dry scabbing. Wound Care - Sacral ulcer Dakins 0.25% moistened gauze or if it gets to difficulty to pack with the Dakin's then Aquacel-Ag covered with gauze/ABD/superabsorber dressing daily. Right ischium ulcer remains healed. The left ischial is healed. Place A&D ointment or Aquaphor for a barrier cream to laney wound of sacral ulcer to moisturize and protect the skin. Stop using calmaceptine, because it is drying out the laney wound. She denies any nausea and vomiting. She states that her appetite is improving and she is drinking extra protein shakes. Progress of Wound: Sacral ulcer is smaller in size, base is beefy pink. Left buttock has a skin tear from tape. Laney wound is excoriated/dry from the calmaseptine barrier cream having zinc in it. Objective Data Objective Data Vital Signs: Vital Signs Temp Pulse Resp BP 97.0 F L 54 L 16 129/66 H 07/23/22 09:50 07/23/22 09:50 07/21/22 01:12 07/23/22 09:50 Weight: 155 lb 11.464 oz Body Mass Index (BMI) 25.9 Charges/Coding Procedures Integumentary 111xxx-113xx: 34211 Casie subq tissue 20 sq cm/< Physical Exam Const alert and oriented x3 General Appearance: cooperative HEENT normocephalic Resp normal respiratory effort Cardio regular rate Extremity normal capillary refill Skin Wound Narrative: Sacral ulcer is smaller in size, base is beefy pink. Left buttock has a skin tear from tape. Laney wound is dry/excoriated. Neuro Sensorium / Orientation: awake and alert Psych Appearance: well kempt Debridement Note Debridement Note Wound debrided: Sacral ulcer Wound Grade/Stage: Stage IV Type of Debridement: Excisional debridement Anesthesia Used: 4% Lidocaine Solution Depth: Down to and including healthy tissue and in the subcutaneous layer Percentage of wound debrided: 100 Instrument Used: 5mm curette Tissue Removed: Non viable tissue and slough. Severity: Limited To Skin Breakdown Amount of bleeding with debridement: Mild Bleeding Controlled with: Pressure and Compression and gauze Patient tolerated procedure: Patient tolerated procedure well Post-Debridement Measurements and Additional Note: Post-Debridement Measurements/Treatment - Nurse 1 - General Ulcer Assessment Start: 07/23/22 09:50 Freq: Status: Active Protocol: [facility] Activity Type Activity Date Activity User E-sign Co-sign Detail Recorded Client Recorded Date Recorded By Document 07/23/22 09:50 [place] [id number] 07/23/22 09:58 [place] 07/23/22 09:50 - Today's Visit Information Type of service Follow-up Visit (Physician/CARE TRANSITIONS NURSE ) Arrival Mode Wheelchair Transfer Assistance Will Lift Accompanied by Patient Identification Verified (Name & Yes ) Height and Weight Body Mass Index (BMI) 25.9 BMI Classification Overweight Vital Signs Temperature (97.8 F-99.1 F) 97.0 F L Temperature Source Temporal Pulse Rate (60-100) 54 L Pulse Location Monitor Blood Pressure (90/60-120/80) 129/66 H Blood Pressure Mean (mm Hg) 87 Source Monitor Position Sitting Blood Pressure Location Right Arm History Since Last Visit- (Skip if this is Patient's initial visit) Have you changed medications since your No last visit? Any new allergies or adverse reactions No Had a fall/change in ADL's that may No increase risk of falls Signs or symptoms of abuse and/or No neglect since last visit Have you been in the hospital since your No last visit? Has dressing in place as prescribed Yes Has compression in place as prescribed N/A Has offloadiing in place as prescribed N/A Experienced any changes in pain level or No management Left Footwear Slipper Right Footwear Slipper Pain Scale: 0-10 Numeric Is Patient Pain Free? Yes WC - Nurse 1 - General Ulcer Measurement Start: 07/23/22 09:50 Freq: Status: Active Protocol: Activity Type Activity Date Activity User E-sign Co-sign Detail Recorded Client Recorded Date Recorded By Document 07/23/22 09:50 ALAN [id number] 07/23/22 09:58 [place] 07/23/22 09:50 Wound Center Nurse 1 #1 Sacral -Current Size (cm) - Length 2.3 -Current Size (cm) - Width 2 -Current Size (cm) - Depth 0.2 -Total Square Cm 4.6 -Undermining/Tunneling Starts (O'clock 11 ) -Undermining/Tunneling Ends (O'clock) 1 -Maximum Distance (cm) 0.6 -Wound Margin Distinct, Outline Attached -Granulation Amt Medium (34-66%) -Granulation Quality [place] -Necrosis Amt Medium (34-66%) -Necrotic Tissue Type Adherent Slough -Texture (Laney-wound Skin Appearance) Assessed, Scarring -Moisture (Laney-wound Skin Appearance) No Abnormality, Assessed -Color (Laney-wound Skin Appearance) No Abnormality, Assessed -Temperature (Laney-wound Skin No Abnormality Appearance) (Pt Warm) -Tenderness on Palpation (Laney-wound No Skin Appearance) -Ulcer Cleansing Rinsed/ Irrigated with Saline -Foul Odor after Cleansing No -Anesthetic Used 5% Lidocaine Gel WC - Nurse 2 - General Ulcer CM Notes Start: 07/23/22 09:50 Freq: Status: Active Protocol: Activity Type Activity Date Activity User E-sign Co-sign Detail Recorded Client Recorded Date Recorded By Document 07/23/22 10:10 [id number] 07/23/22 10:15 JF 07/23/22 10:10 Wound Center Nurse 2 -Time 10:11 -Correct Patient Yes -Correct Side, Site, Position Yes -Correct Procedure Yes -Procedure Performed Yes -Type of Procedure Debridement -Clinical Debridement Subcutaneous -Tissue Removed Subcutaneous -Post Debridement (cm) - Length 1.7 -Post Debridement (cm) - Width 2.8 -Post Debridement (cm) - Depth 0.3 -Total Square (Post) (cm) 4.76 -Area of Debridement (cm) - Length 1.7 -Area of Debridement (cm) - Width 2.8 -Total Square (Area) (cm) 4.76 -Tunneling No -Undermining/Tunneling No -Circular Undermining No -Wound/Ulcer Outcome Not Healed -Ulcer Cleansing Rinsed/ Irrigated with Saline -Foul Odor after Cleansing No -Bioengineered Tissue No -Bleeding Controlled with Pressure -Treatment Response Procedure Tolerated Well -Offloading No -Pressure Reduction Wheelchair cushion, Specialty bed -Debridement - Subq, 1st 20sq cm Yes Pain Scale: 0-10 Numeric Is Patient Pain Free? Yes Assessment/Plan Assessment/Plan (1) Pressure ulcer of sacral region, stage 4: CODE(S): L89.154 - Pressure ulcer of sacral region, stage 4 (2) Paraplegia: CODE(S): G82.20 - Paraplegia, unspecified (3) Osteomyelitis of pelvis: CODE(S): M86.9 - Osteomyelitis, unspecified (4) Large B-cell lymphoma: CODE(S): C85.10 - Unspecified B-cell lymphoma, unspecified site PLAN: Plan Wound Care - Sacral ulcer Dakin's 0.25% moistened gauze topped with ABD or super absorber. If this area becomes too difficult to pack with the dressing, then use Aquacel-Ag daily covered with gauze. Laney wound of the sacral ulcer is more excoriated/dry most likely from the calmaseptine barrier barrier cream, instructed to try Aquaphor or A&D ointment 1- 2 times daily. The right ischial ulcer remains healed. It does have a small skin tear, which should heal with the ointment. The left ischial excoriation is improved. Encouraged to massage the healed areas 1-2 times a day with aquaphor/barrier cream with no zinc in it to help soften the scarring. Wound culture 10/07/21 while in the hospital positive for Klebsiella oxytoca, Staphylococcus haemolyticus, and Corynebacterium striatum. Treated with Zosyn and Vanc while hospitalized. Completed Augmentin. Wound culture from 09/12/21 was positive for Staphylococcus haemolyticus and Enterococcus faecalis. Completed Augmentin and Doxycycline and a probiotic. Encourage increased protein intake to help with wound healing. Her family does a really nice job with her wound care. Follow up 3 weeks. Call or come in sooner if have any questions or concerns.
[2022-08-13 09:54] VITALS: BP 136/59; PULSE 54; TEMP 36.1; BMI 25.9
--- NOTE | 2022-08-13 12:11 | PCM.WC.PN ---
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 She had progressive paraplegia. She went to TCU for acute rehab for this progressive paraplegia. During that time she had worsening sacral pressure sore with skin necrosis. Surgery 05/15/21 - Excision necrotic sacral pressure sore, Stage IV, with partial ostectomy for osteomyelitis. Pathology from surgery on 05/15/21 of bone showed acute osteomyelitis. Operative tissue culture positive for Escherichia coli, Klebsiella, Vanc. Resist. E. gallinarum, Vanc. Resist. E. faecalis. Operative bone culture positive for Escherichia coli, Vanc. Resist. E. faecalis, Vanc. Resist. E. gallinarum. She was on Meropenem, Vancomycin has been stopped and Linezolid started. ID is managing. Radiation from 05/17/21 - 06/12/21 18 treatments to T4-T7 area including paraspinal region. 06/06/21- Laparoscopic sigmoid colectomy with creation of end colostomy for fecal diversion. Was in TCU 06/08/21-07/20/21. Patient had a recent hospitalization on 01/19/2022. She states she had C. difficile. She was discharged on 01/22/2022. While she was hospitalized she developed a new ulcer on her right ischium. Has dry scabbing. Wound Care - Sacral ulcer Dakins 0.25% moistened gauze or if it gets to difficulty to pack with the Dakin's then Aquacel-Ag covered with gauze/ABD/superabsorber dressing daily. Right ischium ulcer remains healed. The left ischial is healed. Place A&D ointment or Aquaphor for a barrier cream to laney wound of sacral ulcer to moisturize and protect the skin. Stop using calmaceptine, because it is drying out the laney wound. She denies any nausea and vomiting. She states that her appetite is improving and she is drinking extra protein shakes. Progress of Wound: Sacral ulcer is smaller in size, base is beefy pink. Laney wound is much improved using the A&D ointment. Objective Data Objective Data Vital Signs: Vital Signs Temp Pulse Resp BP 97.0 F L 54 L 16 136/59 H 08/13/22 09:54 08/13/22 09:54 07/21/22 01:12 08/13/22 09:54 Weight: 155 lb 11.464 oz Body Mass Index (BMI) 25.9 Charges/Coding Procedures Integumentary 111xxx-113xx: 26392 Casie subq tissue 20 sq cm/< Debridement Note Debridement Note Wound debrided: Sacral ulcer Wound Grade/Stage: Stage IV Type of Debridement: Excisional debridement Anesthesia Used: 4% Lidocaine Solution Depth: Down to and including healthy tissue and in the subcutaneous layer Percentage of wound debrided: 100 Instrument Used: 3mm curette Tissue Removed: Non viable tissue and slough. Severity: Limited To Skin Breakdown Amount of bleeding with debridement: Mild Bleeding Controlled with: Pressure and Compression and gauze Patient tolerated procedure: Patient tolerated procedure well Post-Debridement Measurements and Additional Note: Post-Debridement Measurements/Treatment WC - Nurse 1 - General Ulcer Assessment Start: 07/23/22 09:50 Freq: Status: Active Protocol: RKANTHI Activity Type Activity Date Activity User E-sign Co-sign Detail Recorded Client Recorded Date Recorded By Document 07/23/22 09:50 AK [id number] 07/23/22 09:58 AK Document 08/13/22 09:54 KR [id number] 08/13/22 10:01 KR 07/23/22 08/13/22 09:50 09:54 WC - Today's Visit Information Type of service Follow-up Visit Follow-up Visit (Physician/CORRECTIONAL MAINTENANCE TECHNICIAN (Physician/CORRECTIONAL MAINTENANCE TECHNICIAN ) ) Arrival Mode Wheelchair Wheelchair Transfer Assistance Will Lift Will Lift Accompanied by Patient Identification Verified (Name & Yes Yes ) Height and Weight Body Mass Index (BMI) 25.9 25.9 BMI Classification Overweight Overweight Vital Signs Temperature (97.8 F-99.1 F) 97.0 F L 97.0 F L Temperature Source Temporal Temporal Pulse Rate (60-100) 54 L 54 L Pulse Location Monitor Monitor Blood Pressure (90/60-120/80) 129/66 H 136/59 H Blood Pressure Mean (mm Hg) 87 84 Source Monitor Monitor Position Sitting Semi-Fowlers Blood Pressure Location Right Arm Right Arm History Since Last Visit- (Skip if this is Patient's initial visit) Have you changed medications since your No No last visit? Any new allergies or adverse reactions No No Had a fall/change in ADL's that may No No increase risk of falls Signs or symptoms of abuse and/or No No neglect since last visit Have you been in the hospital since your No No last visit? Has dressing in place as prescribed Yes Yes Has compression in place as prescribed N/A N/A Has offloadiing in place as prescribed N/A N/A Experienced any changes in pain level or No No management Left Footwear Slipper Regular Shoe Right Footwear Slipper Regular Shoe Pain Scale: 0-10 Numeric Is Patient Pain Free? Yes Yes WC - Nurse 1 - General Ulcer Measurement Start: 07/23/22 09:50 Freq: Status: Active Protocol: Activity Type Activity Date Activity User E-sign Co-sign Detail Recorded Client Recorded Date Recorded By Document 07/23/22 09:50 AK [id number] 07/23/22 09:58 AK Document 08/13/22 09:54 KR [id number] 08/13/22 10:01 KR 07/23/22 08/13/22 09:50 09:54 Wound Center Nurse 1 #1 Sacral -Current Size (cm) - Length 2.3 1 -Current Size (cm) - Width 2 0.9 -Current Size (cm) - Depth 0.2 0.1 -Total Square Cm 4.6 0.9 -Undermining/Tunneling Starts (O'clock 11 ) -Undermining/Tunneling Ends (O'clock) 1 -Maximum Distance (cm) 0.6 -Wound Margin Distinct, Distinct, Outline Outline Attached Attached -Granulation Amt Medium (34-66%) Large (67-100%) -Granulation Quality Stagecoach Stagecoach -Necrosis Amt Medium (34-66%) None Present (0 %) -Necrotic Tissue Type Adherent Slough -Texture (Laney-wound Skin Appearance) Assessed, Assessed, Scarring Scarring -Moisture (Laney-wound Skin Appearance) No Abnormality, No Abnormality, Assessed Assessed -Color (Laney-wound Skin Appearance) No Abnormality, No Abnormality, Assessed Assessed -Temperature (Laney-wound Skin No Abnormality No Abnormality Appearance) (Pt Warm) (Pt Warm) -Tenderness on Palpation (Laney-wound No No Skin Appearance) -Ulcer Cleansing Rinsed/ Rinsed/ Irrigated with Irrigated with Saline Saline -Foul Odor after Cleansing No No -Anesthetic Used 5% Lidocaine 5% Lidocaine Gel Gel WC - Nurse 2 - General Ulcer CM Notes Start: 07/23/22 09:50 Freq: Status: Active Protocol: Activity Type Activity Date Activity User E-sign Co-sign Detail Recorded Client Recorded Date Recorded By Document 07/23/22 10:10 [id number] 07/23/22 10:15 Document 08/13/22 10:26 [id number] 08/13/22 10:28 JF 07/23/22 08/13/22 10:10 10:26 Wound Center Nurse 2 #1 Sacral -Time 10:11 10:27 -Correct Patient Yes Yes -Correct Side, Site, Position Yes Yes -Correct Procedure Yes Yes -Procedure Performed Yes Yes -Type of Procedure Debridement Debridement -Clinical Debridement Subcutaneous Subcutaneous -Tissue Removed Subcutaneous Subcutaneous -Post Debridement (cm) - Length 1.7 0.8 -Post Debridement (cm) - Width 2.8 1.3 -Post Debridement (cm) - Depth 0.3 0.2 -Total Square (Post) (cm) 4.76 1.04 -Area of Debridement (cm) - Length 1.7 0.8 -Area of Debridement (cm) - Width 2.8 1.3 -Total Square (Area) (cm) 4.76 1.04 -Tunneling No No -Undermining/Tunneling No No -Circular Undermining No No -Wound/Ulcer Outcome Not Healed Not Healed -Ulcer Cleansing Rinsed/ Rinsed/ Irrigated with Irrigated with Saline Saline -Foul Odor after Cleansing No No -Bioengineered Tissue No No -Bleeding Controlled with Pressure Pressure -Treatment Response Procedure Procedure Tolerated Well Tolerated Well -Offloading No No -Pressure Reduction Wheelchair Wheelchair cushion, cushion Specialty bed -Debridement - Subq, 1st 20sq cm Yes Yes Pain Scale: 0-10 Numeric Is Patient Pain Free? Yes Yes NICOLAS - Nurse 3 - General Ulcer D/C NN Start: 07/23/22 09:50 Freq: Status: Active Protocol: Activity Type Activity Date Activity User E-sign Co-sign Detail Recorded Client Recorded Date Recorded By Document 08/13/22 10:47 ALAN [id number] 08/13/22 10:48 AK 08/13/22 10:47 Wound Care Nurse 3 #1 Sacral -Ulcer Cleansing Rinsed/ Irrigated with Saline -Foul Odor after Cleansing No -Negative Pressure Wound Therapy N/A -Other Dressing own ag and bordered dressing -Primary Dressing Covered/Secured with Dry Gauze Pain Scale: 0-10 Numeric Is Patient Pain Free? Yes WC - Visit Discharge Discharge Condition Stable Ambulatory Status Wheelchair Transportation Private Auto Accompanied by and daughter Medication Reconcilliation completed & Yes provided to patient/care provider Clinical Summary of Care Provided Yes Assessment/Plan Assessment/Plan (1) Pressure ulcer of sacral region, stage 4: CODE(S): L89.154 - Pressure ulcer of sacral region, stage 4 (2) Paraplegia: CODE(S): G82.20 - Paraplegia, unspecified (3) Osteomyelitis of pelvis: CODE(S): M86.9 - Osteomyelitis, unspecified (4) Large B-cell lymphoma: CODE(S): C85.10 - Unspecified B-cell lymphoma, unspecified site PLAN: Plan Wound Care - Moistened Aquacel-Ag covered with gauze. Laney wound of the sacral ulcer is much improved today. Continue A&D ointment to the laney wound. The right ischial ulcer remains healed. Encouraged to massage the healed areas 1-2 times a day with aquaphor/barrier cream with no zinc in it to help soften the scarring. Wound culture 10/07/21 while in the hospital positive for Klebsiella oxytoca, Staphylococcus haemolyticus, and Corynebacterium striatum. Treated with Zosyn and Vanc while hospitalized. Completed Augmentin. Wound culture from 09/12/21 was positive for Staphylococcus haemolyticus and Enterococcus faecalis. Completed Augmentin and Doxycycline and a probiotic. Encourage increased protein intake to help with wound healing. Her family does a really nice job with her wound care. Follow up 3 weeks. Call or come in sooner if have any questions or concerns.
== END 2022-08-20 23:59 | disposition home or self-care (01) ==
LOC: WC 10:00
PROVIDERS: PCP Student in an Organized Health Care Education/Training Program; Visit Provider Nurse Practitioner Family
DX: L89.154 Pressure ulcer of sacral region, stage 4 (principal); G82.20 Paraplegia, unspecified; C85.10 Unspecified B-cell lymphoma, unspecified site; M86.9 Osteomyelitis, unspecified; Z92.3 Personal history of irradiation
CPT/HCPCS: 11042

== ENCOUNTER 2022-09-03 09:41 | Outpatient (RCR) | payer OTHER, SELFPAY ==
[2022-08-21 00:25] VITALS: BP 136/59; PULSE 54; RESP 16; TEMP 36.1; BMI 25.9
[2022-09-03 10:17] VITALS: BP 147/78; PULSE 52; TEMP 36.2; BMI 25.9
--- NOTE | 2022-09-03 11:58 | PCM.WC.PN ---
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 She had progressive paraplegia. She went to TCU for acute rehab for this progressive paraplegia. During that time she had worsening sacral pressure sore with skin necrosis. Surgery 05/15/21 - Excision necrotic sacral pressure sore, Stage IV, with partial ostectomy for osteomyelitis. Pathology from surgery on 05/15/21 of bone showed acute osteomyelitis. Operative tissue culture positive for Escherichia coli, Klebsiella, Vanc. Resist. E. gallinarum, Vanc. Resist. E. faecalis. Operative bone culture positive for Escherichia coli, Vanc. Resist. E. faecalis, Vanc. Resist. E. gallinarum. She was on Meropenem, Vancomycin has been stopped and Linezolid started. ID is managing. Radiation from 05/17/21 - 06/12/21 18 treatments to T4-T7 area including paraspinal region. 06/06/21- Laparoscopic sigmoid colectomy with creation of end colostomy for fecal diversion. Was in TCU 06/08/21-07/20/21. Patient had a recent hospitalization on 01/19/2022. She states she had C. difficile. She was discharged on 01/22/2022. While she was hospitalized she developed a new ulcer on her right ischium. Has dry scabbing. Wound Care - Sacral ulcer Dakins 0.25% moistened gauze or if it gets to difficulty to pack with the Dakin's then Aquacel-Ag covered with gauze/ABD/superabsorber dressing daily. Right ischium ulcer remains healed. The left ischial is healed. Place A&D ointment or Aquaphor for a barrier cream to laney wound of sacral ulcer to moisturize and protect the skin. Stop using calmaceptine, because it is drying out the laney wound. She denies any nausea and vomiting. She states that her appetite is improving and she is drinking extra protein shakes. Progress of Wound: Sacral ulcer is much smaller in size, she is almost healed. Laney wound is much improved using the A&D ointment. Objective Data Objective Data Vital Signs: Vital Signs Temp Pulse Resp BP 97.1 F L 52 L 16 147/78 H 09/03/22 10:17 09/03/22 10:17 08/21/22 00:25 09/03/22 10:17 Weight: 155 lb 11.464 oz Body Mass Index (BMI) 25.9 Charges/Coding Procedures Integumentary 111xxx-113xx: 84708 Casie subq tissue 20 sq cm/< Physical Exam Const alert and oriented x3 General Appearance: cooperative HEENT normocephalic Resp normal respiratory effort Cardio regular rate Extremity normal capillary refill Skin Skin Narrative: Ulcer laney wound is dry and intact. Wound Narrative: Sacral ulcer is smaller in size, base is beefy pink. Neuro Sensorium / Orientation: awake and alert Psych Appearance: well kempt Debridement Note Debridement Note Wound debrided: Sacral ulcer Wound Grade/Stage: Stage IV Type of Debridement: Excisional debridement Anesthesia Used: 4% Lidocaine Solution Depth: Down to and including healthy tissue and in the subcutaneous layer Percentage of wound debrided: 100 Instrument Used: 3mm curette Tissue Removed: Non viable tissue and slough. Severity: Limited To Skin Breakdown Amount of bleeding with debridement: Mild Bleeding Controlled with: Pressure and Compression and gauze Patient tolerated procedure: Patient tolerated procedure well Post-Debridement Measurements and Additional Note: Post-Debridement Measurements/Treatment - Nurse 1 - General Ulcer Assessment Start: 09/03/22 10:09 Freq: Status: Active Protocol: NICOLAS.FLACO Activity Type Activity Date Activity User E-sign Co-sign Detail Recorded Client Recorded Date Recorded By Document 09/03/22 10:17 ALAN [id number] 09/03/22 10:20 ALAN 09/03/22 10:17 - Today's Visit Information Type of service Follow-up Visit (Physician/BUILDING ARCHITECTURAL DESIGNER ) Arrival Mode Wheelchair Patient Requires Transmission-Based No Precautions Safety Precautions NA Height and Weight Body Mass Index (BMI) 25.9 BMI Classification Overweight Vital Signs Temperature (97.8 F-99.1 F) 97.1 F L Temperature Source Temporal Pulse Rate (60-100) 52 L Pulse Location Monitor Blood Pressure (90/60-120/80) 147/78 H Blood Pressure Mean (mm Hg) 101 Source Monitor History Since Last Visit- (Skip if this is Patient's initial visit) Have you changed medications since your No last visit? Any new allergies or adverse reactions No Had a fall/change in ADL's that may No increase risk of falls Signs or symptoms of abuse and/or No neglect since last visit Have you been in the hospital since your No last visit? Has dressing in place as prescribed Yes Has compression in place as prescribed N/A Has offloadiing in place as prescribed N/A Experienced any changes in pain level or No management Left Footwear Slipper Right Footwear Slipper Pain Scale: 0-10 Numeric Is Patient Pain Free? Yes WC - Nurse 1 - General Ulcer Measurement Start: 09/03/22 10:09 Freq: Status: Active Protocol: Activity Type Activity Date Activity User E-sign Co-sign Detail Recorded Client Recorded Date Recorded By Document 09/03/22 10:17 ALAN [id number] 09/03/22 10:20 ALAN 09/03/22 10:17 Wound Center Nurse 1 #1 Sacral -Combined with other wound No -Current Size (cm) - Length 0.2 -Current Size (cm) - Width 0.2 -Current Size (cm) - Depth 0.1 -Total Square Cm 0.04 -Photo Taken No -Tunneling No -Undermining/Tunneling No -Circular Undermining No -Change in Wound Grade/Stage No -Exudate Amt None Present -Granulation Amt None Present (0 %) -Granulation Quality N/A -Slough/Fibrin No -Necrosis Amt None Present (0 %) -Structure Exposed N/A -Texture (Laney-wound Skin Appearance) No Abnormality, Assessed -Moisture (Alney-wound Skin Appearance) No Abnormality, Assessed -Color (Laney-wound Skin Appearance) No Abnormality, Assessed -Temperature (Laney-wound Skin No Abnormality Appearance) (Pt Warm) -Tenderness on Palpation (Laney-wound No Skin Appearance) -Ulcer Cleansing Rinsed/ Irrigated with Saline -Foul Odor after Cleansing No -Anesthetic Used 5% Lidocaine Gel - Nurse 2 - General Ulcer CM Notes Start: 09/03/22 10:09 Freq: Status: Active Protocol: Activity Type Activity Date Activity User E-sign Co-sign Detail Recorded Client Recorded Date Recorded By Document 09/03/22 10:09 NIDHI [id number] 09/03/22 10:10 NIDHI 09/03/22 10:09 Wound Center Nurse 2 -Time 10:10 -Correct Patient Yes -Correct Side, Site, Position Yes -Correct Procedure Yes -Procedure Performed Yes -Type of Procedure Debridement -Clinical Debridement Subcutaneous -Tissue Removed Subcutaneous -Post Debridement (cm) - Length 0.5 -Post Debridement (cm) - Width 0.8 -Post Debridement (cm) - Depth 0.2 -Total Square (Post) (cm) 0.40 -Area of Debridement (cm) - Length 0.5 -Area of Debridement (cm) - Width 0.8 -Total Square (Area) (cm) 0.40 -Tunneling No -Undermining/Tunneling No -Circular Undermining No -Wound/Ulcer Outcome Not Healed -Ulcer Cleansing Wound Cleanser -Foul Odor after Cleansing No -Bioengineered Tissue No -Bleeding Controlled with Pressure -Treatment Response Procedure Tolerated Well -Offloading No -Debridement - Subq, 1st 20sq cm Yes Pain Scale: 0-10 Numeric Is Patient Pain Free? Yes WC - Nurse 3 - General Ulcer D/C NN Start: 09/03/22 10:09 Freq: Status: Active Protocol: Activity Type Activity Date Activity User E-sign Co-sign Detail Recorded Client Recorded Date Recorded By Document 09/03/22 10:17 AK [id number] 09/03/22 10:20 AK 09/03/22 10:17 Vital Signs Temperature (97.8 F-99.1 F) 97.1 F L Temperature Source Temporal Pulse Rate (60-100) 52 L Pulse Location Monitor Blood Pressure (90/60-120/80) 147/78 H Blood Pressure Mean (mm Hg) 101 Source Monitor Pain Scale: 0-10 Numeric Is Patient Pain Free? Yes Wound Care Nurse 3 #1 Sacral -Ulcer Cleansing Rinsed/ Irrigated with Saline -Primary Dressing Applied Aquacel AG 4x4 -Aquacel AG 4x4 1 Assessment/Plan Assessment/Plan (1) Pressure ulcer of sacral region, stage 4: CODE(S): L89.154 - Pressure ulcer of sacral region, stage 4 (2) Paraplegia: CODE(S): G82.20 - Paraplegia, unspecified (3) Osteomyelitis of pelvis: CODE(S): M86.9 - Osteomyelitis, unspecified (4) Large B-cell lymphoma: CODE(S): C85.10 - Unspecified B-cell lymphoma, unspecified site PLAN: Plan Wound Care - Moistened Aquacel-Ag covered with gauze. Laney wound of the sacral ulcer is much improved using the A&D ointment to the laney wound. The right ischial ulcer remains healed. Encouraged to massage the healed areas 1-2 times a day with aquaphor/barrier cream with no zinc in it to help soften the scarring. Wound culture 10/07/21 while in the hospital positive for Klebsiella oxytoca, Staphylococcus haemolyticus, and Corynebacterium striatum. Treated with Zosyn and Vanc while hospitalized. Completed Augmentin. Wound culture from 09/12/21 was positive for Staphylococcus haemolyticus and Enterococcus faecalis. Completed Augmentin and Doxycycline and a probiotic. Encourage increased protein intake to help with wound healing. Her family does a really nice job with her wound care. Follow up 3 weeks. Call or come in sooner if have any questions or concerns.
== END 2022-09-19 23:59 | disposition home or self-care (01) ==
LOC: WC 09:41
PROVIDERS: PCP Student in an Organized Health Care Education/Training Program; Visit Provider Nurse Practitioner Family
DX: L89.154 Pressure ulcer of sacral region, stage 4 (principal); G82.20 Paraplegia, unspecified; C85.10 Unspecified B-cell lymphoma, unspecified site; M86.9 Osteomyelitis, unspecified; Z92.3 Personal history of irradiation
CPT/HCPCS: 11042

== ENCOUNTER 2022-10-01 09:48 | Outpatient (RCR) | payer OTHER, SELFPAY ==
[2022-09-20 00:24] VITALS: BP 147/78; PULSE 52; RESP 16; TEMP 36.2; BMI 25.9
[2022-10-01 10:27] VITALS: BP 149/98; PULSE 56; TEMP 35.6; BMI 25.9
--- NOTE | 2022-10-01 12:33 | PN.PCM_ITS ---
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 She had progressive paraplegia. She went to TCU for acute rehab for this progressive paraplegia. During that time she had worsening sacral pressure sore with skin necrosis. Surgery 05/15/21 - Excision necrotic sacral pressure sore, Stage IV, with partial ostectomy for osteomyelitis. Pathology from surgery on 05/15/21 of bone showed acute osteomyelitis. Operative tissue culture positive for Escherichia coli, Klebsiella, Vanc. Resist. E. gallinarum, Vanc. Resist. E. faecalis. Operative bone culture positive for Escherichia coli, Vanc. Resist. E. faecalis, Vanc. Resist. E. gallinarum. She was on Meropenem, Vancomycin has been stopped and Linezolid started. ID is managing. Radiation from 05/17/21 - 06/12/21 18 treatments to T4-T7 area including paraspinal region. 06/06/21- Laparoscopic sigmoid colectomy with creation of end colostomy for fecal diversion. Was in TCU 06/08/21-07/20/21. Patient had a recent hospitalization on 01/19/2022. She states she had C. difficile. She was discharged on 01/22/2022. While she was hospitalized she developed a new ulcer on her right ischium. Has dry scabbing. Wound Care - Sacral ulcer Dakins 0.25% moistened gauze or if it gets to difficulty to pack with the Dakin's then Aquacel-Ag covered with gauze/ABD/superabsorber dressing daily. Right ischium ulcer remains healed. The left ischial is healed. Place A&D ointment or Aquaphor for a barrier cream to laney wound of sacral ulcer to moisturize and protect the skin. Stop using calmaceptine, because it is drying out the laney wound. She denies any nausea and vomiting. She states that her appetite is improving and she is drinking extra protein shakes. Progress of Wound: Sacral ulcer is much smaller in size, she is almost healed. Laney wound is clear using the A&D ointment. Objective Data Objective Data Vital Signs: Vital Signs Temp Pulse Resp BP 96.1 F L 56 L 16 149/98 H 10/01/22 10:27 10/01/22 10:27 09/20/22 00:24 10/01/22 10:27 Weight: 155 lb 11.464 oz Body Mass Index (BMI) 25.9 Charges/Coding Procedures Integumentary [id number]: [id number] Casie subq tissue 20 sq cm/< Debridement Note Debridement Note Wound debrided: Sacral ulcer Wound Grade/Stage: Stage IV Type of Debridement: Excisional debridement Anesthesia Used: 4% Lidocaine Solution Depth: Down to and including healthy tissue and in the subcutaneous layer Percentage of wound debrided: 100 Instrument Used: 3mm curette Tissue Removed: Non viable tissue and slough. Severity: Limited To Skin Breakdown Amount of bleeding with debridement: Mild Bleeding Controlled with: Pressure and Compression and gauze Patient tolerated procedure: Patient tolerated procedure well Post-Debridement Measurements and Additional Note: Post-Debridement Measurements/Treatment - Nurse 1 - General Ulcer Assessment Start: 10/01/22 10:03 Freq: Status: Active Protocol: KRANTHI Activity Type Activity Date Activity User E-sign Co-sign Detail Recorded Client Recorded Date Recorded By Document 10/01/22 10:27 ALAN [id number] 10/01/22 10:29 ALAN 10/01/22 10:27 - Today's Visit Information Type of service Follow-up Visit (Physician/ASSOCIATE DIRECTOR OF SALES ) Arrival Mode Wheelchair Patient Identification Verified (Name & Yes ) Patient Requires Transmission-Based No Precautions Height and Weight Body Mass Index (BMI) 25.9 BMI Classification Overweight Vital Signs Temperature (97.8 F-99.1 F) 96.1 F L Temperature Source Temporal Pulse Rate (60-100) 56 L Pulse Location Monitor Blood Pressure (90/60-120/80) 149/98 H Blood Pressure Mean (mm Hg) 115 Source Monitor History Since Last Visit- (Skip if this is Patient's initial visit) Have you changed medications since your No last visit? Any new allergies or adverse reactions No Had a fall/change in ADL's that may No increase risk of falls Signs or symptoms of abuse and/or No neglect since last visit Have you been in the hospital since your No last visit? Has dressing in place as prescribed Yes Has compression in place as prescribed N/A Has offloadiing in place as prescribed N/A Experienced any changes in pain level or No management Pain Scale: 0-10 Numeric Is Patient Pain Free? Yes - Nurse 1 - General Ulcer Measurement Start: 10/01/22 10:03 Freq: Status: Active Protocol: Activity Type Activity Date Activity User E-sign Co-sign Detail Recorded Client Recorded Date Recorded By Document 10/01/22 10:27 ALAN [id number] 10/01/22 10:29 ALAN 10/01/22 10:27 Wound Center Nurse 1 #1 Sacral -Combined with other wound No -Current Size (cm) - Length 0.5 -Current Size (cm) - Width 0.5 -Current Size (cm) - Depth 0.1 -Total Square Cm 0.25 -Photo Taken Yes -Tunneling No -Undermining/Tunneling No -Circular Undermining No -Change in Wound Grade/Stage No -Exudate Amt Small -Exudate Type Serosanguineous -Wound Margin Distinct, Outline Attached -Granulation Amt Small (1-33%) -Granulation Quality N/A -Slough/Fibrin No -Necrosis Amt None Present (0 %) -Structure Exposed N/A -Texture (Laney-wound Skin Appearance) No Abnormality, Assessed -Moisture (Laney-wound Skin Appearance) No Abnormality, Assessed -Color (Laney-wound Skin Appearance) No Abnormality, Assessed -Temperature (Laney-wound Skin No Abnormality Appearance) (Pt Warm) -Tenderness on Palpation (Laney-wound No Skin Appearance) -Ulcer Cleansing Rinsed/ Irrigated with Saline -Foul Odor after Cleansing No -Anesthetic Used 4% Lidocaine Solution WC - Nurse 2 - General Ulcer CM Notes Start: 10/01/22 10:03 Freq: Status: Active Protocol: Activity Type Activity Date Activity User E-sign Co-sign Detail Recorded Client Recorded Date Recorded By Document 10/01/22 10:36 NIDHI [id number] 10/01/22 10:40 NIDHI 10/01/22 10:36 Wound Center Nurse 2 -Time 10:36 -Correct Patient Yes -Correct Side, Site, Position Yes -Correct Procedure Yes -Procedure Performed Yes -Type of Procedure Debridement -Clinical Debridement Subcutaneous -Tissue Removed Subcutaneous -Post Debridement (cm) - Length 0.7 -Post Debridement (cm) - Width 1.2 -Post Debridement (cm) - Depth 0.1 -Total Square (Post) (cm) 0.84 -Area of Debridement (cm) - Length 0.7 -Area of Debridement (cm) - Width 1.2 -Total Square (Area) (cm) 0.84 -Tunneling No -Undermining/Tunneling No -Circular Undermining No -Wound/Ulcer Outcome Not Healed -Ulcer Cleansing Rinsed/ Irrigated with Saline -Foul Odor after Cleansing No -Bioengineered Tissue No -Bleeding Controlled with Pressure -Treatment Response Procedure Tolerated Well -Offloading No -Pressure Reduction Wheelchair cushion -Debridement - Subq, 1st 20sq cm Yes Pain Scale: 0-10 Numeric Is Patient Pain Free? Yes Assessment/Plan Assessment/Plan (1) Pressure ulcer of sacral region, stage 4: CODE(S): L89.154 - Pressure ulcer of sacral region, stage 4 (2) Paraplegia: CODE(S): G82.20 - Paraplegia, unspecified (3) Osteomyelitis of pelvis: CODE(S): M86.9 - Osteomyelitis, unspecified (4) Large B-cell lymphoma: CODE(S): C85.10 - Unspecified B-cell lymphoma, unspecified site PLAN: Plan Wound Care - Collagen hydrogel covered with gauze. Laney wound of the sacral ulcer is clear using the A&D ointment to the laney wound. The right ischial ulcer remains healed. Encouraged to massage the healed areas 1-2 times a day with aquaphor/barrier cream with no zinc in it to help soften the scarring. Wound culture 10/07/21 while in the hospital positive for Klebsiella oxytoca, Staphylococcus haemolyticus, and Corynebacterium striatum. Treated with Zosyn and Vanc while hospitalized. Completed Augmentin. Wound culture from 09/12/21 was positive for Staphylococcus haemolyticus and Enterococcus faecalis. Completed Augmentin and Doxycycline and a probiotic. Encourage increased protein intake to help with wound healing. Her family does a really nice job with her wound care. Follow up 3 weeks. Call or come in sooner if have any questions or concerns.
== END 2022-10-20 23:59 | disposition home or self-care (01) ==
LOC: WC 09:48
PROVIDERS: PCP Student in an Organized Health Care Education/Training Program; Visit Provider Nurse Practitioner Family
DX: L89.154 Pressure ulcer of sacral region, stage 4 (principal); G82.20 Paraplegia, unspecified; C85.10 Unspecified B-cell lymphoma, unspecified site; M86.9 Osteomyelitis, unspecified; Z92.3 Personal history of irradiation
CPT/HCPCS: 11042

== ENCOUNTER 2022-10-16 11:04 | Emergency (ER) | payer OTHER, SELFPAY ==
[2022-10-16 11:05] VITALS: BP 144/68; PULSE 96; RESP 18; TEMP 38.6; O2SAT 94; BMI 23.1
--- NOTE | 2022-10-16 11:29 | EX.ED.DYSGE1 ---
HPI History of Present Illness Chief Complaint: Fever Informant: patient Onset/Context/Timing Onset: Yesterday Context: Gradual Onset Timing: Waxes and wanes Quality: subjective Current Severity: Moderate Maximum Severity: Moderate Worsened by: nothing Relieved by: tylenol temporarily Associated Symptoms Associated Symptoms: none Narrative Narrative: Patient is a paraplegic for the past 1.5 years due to a spinal tumor that was operated on. She also has a history of large B-cell lymphoma for which she had 18 treatments of radiation, but nothing in the past several months and no chemotherapy in the last several months. She has been doing well lately until she developed a fever yesterday. She denies any respiratory symptoms. No known sick contacts. She does have an indwelling catheter and has had urinary tract infections in the past. She is anticoagulated on apixaban, there has been no bleeding. She denies any cough, shortness of breath, GI symptoms, sore throat, earache, or any other symptoms except for some mild malaise, but she states she feels pretty well right now even though she has a temperature of 101.5 upon arrival here. Family also noticed a red rash on her left hip/buttock today. [facility] Medical History Abdominal pain Acute postoperative anemia due to expected blood loss Adrenal disorder Adynamic ileus Afib Atrial fibrillation with rapid ventricular response Cancer Chronic indwelling Gutierrez catheter Colostomy in place Coronary artery disease Coronary artery disease Debility Debility Decubitus ulcer Decubitus ulcer of left ischium, stage 4 Diffuse large B cell lymphoma Diffuse large B-cell lymphoma Gallstone History of radiation therapy Hypertension Ileus Infection Large cell lymphoma MCI (mild cognitive impairment) Myocardial infarct Neuropathic pain Osteomyelitis of pelvis Paraplegia Paraplegia Paraplegia Pressure sore Pressure ulcer of sacral region, stage 4 Pressure ulcer of sacral region, unstageable UTI (urinary tract infection) Home Medications apixaban 5 mg tablet (Eliquis) 5 mg PO BID Blood thinner 30 days #60 tabs 07/20/21 [Rx Last Taken 10/06/21] losartan 100 mg tablet 100 mg PO DAILY HEART 10/07/21 [History Last Taken 10/06/21] amiodarone 200 mg tablet 200 mg PO DAILY@1400 HEART 12/12/21 [History Last Taken Unknown] gabapentin 100 mg capsule 100 mg PO BID 12/12/21 [History Last Taken Unknown] metoclopramide HCl 10 mg tablet 5 mg PO TID NAUSEA 12/12/21 [History Last Taken Unknown] metoprolol succinate 50 mg tablet,extended release 24 hr 50 mg PO BID BP 12/12/21 [History Last Taken Unknown] Lactobacillus acidophilus 10 billion cell capsule (Probiotic) 10,000 mmu cells PO DAILY@1400 supplement 01/19/22 [History Last Taken Unknown] atorvastatin 40 mg tablet 40 mg PO QHS cholesterol 01/20/22 [History Last Taken Unknown] cephalexin 500 mg capsule 500 mg PO Q6 #40 CAPSULES 10/16/22 [Rx Last Taken Unknown] sulfamethoxazole 800 mg-trimethoprim 160 mg tablet 1 tab PO BID #14 TABLETS 10/16/22 [Rx Last Taken Unknown] Allergy/AdvReac Type Severity Reaction Status Date / Time prednisone Allergy Intermediate atrial Verified 10/16/22 11:08 fibrillation Family History Father CHF (congestive heart failure) Myocardial infarction Mother CAD (coronary artery disease) Alzheimer disease Surgical History H/O Spinal surgery History of cholecystectomy Hx of CABG S/P cholecystectomy S/P excisional debridement Social History household members: family housing: house number of children: 5 Smoking Status: Never smoker alcohol intake: never substance use type: does not use what type of physical activity do you participate in: other details: leg therapy/hand weights frequency: 5-6 times per week chris/religious: Darion ROS ROS ED Constitutional Constitutional ED: Reports chills and fever(s) Eyes Eyes: Denies change in vision or diplopia ENT ENT ED: Denies ear pain, rhinorrhea or sore throat Cardiovascular Cardiovascular: Denies chest pain or palpitations Respiratory/Chest Respiratory/Chest: Denies cough or dyspnea Gastrointestinal Gastrointestinal: Denies abdominal pain, diarrhea, nausea or vomiting Genitourinary Genitourinary ED: Denies hematuria Musculoskeletal Musculoskeletal: Denies back pain or neck pain Integumentary Denies abscess or rash Neurologic Neurologic: Reports as per HPI, paresthesias and weakness; Denies headache(s) Psychiatric Psychiatric: Denies anxiety or suicidal thoughts EXAM Physical Exam Const Vital Signs: 10/16/22 11:05 10/16/22 12:08 10/16/22 12:18 Temperature 101.5 F H 100 F H Temperature Source Temporal Temporal Pulse Rate 96 89 Respiratory Rate 18 19 H Respiratory Effort Normal Non-Labored Respiratory Pattern Normal Blood Pressure 144/68 H 134/73 H Blood Pressure Mean 93 93 Pulse Ox 94 97 Oxygen Delivery Method Room Air Room Air 10/16/22 13:00 Temperature 99.5 F H Temperature Source Oral Pulse Rate 78 Respiratory Rate 16 Respiratory Effort Respiratory Pattern Blood Pressure 126/52 H Blood Pressure Mean 76 Pulse Ox 96 Oxygen Delivery Method Room Air Positive well nourished and well developed General Appearance ED: well developed and NAD HEENT Reports moist mucous membranes normocephalic and atraumatic Eyes PERRL and EOMs intact bilaterally Neck full ROM and supple Resp normal respiratory effort and clear to auscultation bilaterally Cardio regular rate and regular rhythm Rate: Negative for tachycardic Heart Sounds: murmur systolic II/ soft Peripheral Pulses: pulses 2+ throughout GI non-tender and non-distended GI Narrative: Gutierrez with nonbloody transparent yellow urine somewhat cloudy Auscultation: normoactive bowel sounds Palpation: soft Back/Spine no CVA tenderness General Back: other FROM Extremity normal to inspection General Extremety ED: Negative for edema, pulses abnormal or tenderness General Extremity: Negative for edema or pulses abnormal Neuro oriented x3 and CN's II-XII intact bilaterally Neuro Narrative: Paraplegia. Good blood flow to feet. Normal motor and sensory function of both upper extremities. No speech abnormalities. Sensorium / Orientation: awake and alert Psych mental status grossly normal Skin Skin Narrative: Small nontender noninfected decubitus ulcer near the coccyx without surrounding cellulitis, but separate from this to the left lateral buttock and hip is soft nonfluctuant hot blanching erythematous patch of skin that is large, around 10 or 12 cm in diameter, no induration or necrotic tissue. No subcutaneous emphysema. MDM MDM MDM Narrative Medical decision making narrative: Septic work-up was obtained, except I do not think she needs an EKG or chest x-ray, she is in sinus rhythm not tachycardic, her vital signs are normal even after we brought her fever down with Tylenol, she does not appear septic clinically, nor do the ancillaries support that, she does not have an anion gap acidosis. Her urine shows leukocyte Estrace and pyuria, with few squamous epithelial cells, indicating infection. I also think clinically she has cellulitis in her left hip/buttock. This area is nontender, however this is below her sensory level which is somewhere in the mid to lower thoracic region, so may not be tender. Discussed all this with family, the patient prefers to go home and I am okay with that I do not think she has to be admitted to the hospital. We obtained blood cultures, we sent the urine for culture, she was given empiric vancomycin and Rocephin to cover both of these, and she is eating yogurt and taking a probiotic every day already, I will send her home on Bactrim and cephalexin to maximize the chances that this gets cured as an outpatient. Discussed all this with family they are comfortable with that plan as is the patient. We also do COVID and influenza test, those were negative. Lab Data Attestation: I reviewed the patient's lab results. Labs: Laboratory Results - last 24 hr 10/16/22 10/16/22 10/16/22 11:42 11:42 12:05 WBC 11.6 H RBC 4.98 Hgb 14.3 Hct 42.8 MCV 85.9 MCH 28.7 MCHC 33.4 RDW Std Deviation 47.5 H RDW Coeff of Ivory 15.2 H Plt Count 151 MPV 9.5 Immature Gran % (Auto) 0.600 Neut % (Auto) 83.1 H Lymph % (Auto) 10.2 L [place] % (Auto) 5.8 Eos % (Auto) 0.1 Baso % (Auto) 0.2 Absolute Neuts (auto) 9.7 H Absolute Lymphs (auto) 1.18 Nucleated RBC % 0 Sodium 135 L Potassium 4.8 Chloride 103 Carbon Dioxide 27.0 Anion Gap 5 BUN 16 Creatinine 0.70 Estim Creat Clear Calc 40.04 Est GFR (MDRD) Af Amer 103 Est GFR (MDRD) Non-Af 85 BUN/Creatinine Ratio 22.7 H Glucose 101 Calcium 9.3 Urine Color Yellow Urine Clarity Sl. Cloudy Urine pH 7.0 Ur Specific [place] 1.010 Urine Protein 30 H Urine Glucose (UA) Normal Urine Ketones 15 H Urine Occult Blood 50 H Urine Nitrite Negative Urine Bilirubin Negative Urine Urobilinogen Normal Ur Leukocyte Esterase 500 H Urine RBC 0-5 SEEN Urine WBC 25-50 SEEN Ur Squamous Epith Cells 0-5 SEEN Amorphous Sediment 1+ Urine Bacteria 1+ Urine Mucus 0 SEEN Discharge Plan Triage Chief Complaint: Fever ED Provider: Jose Daniel Lagos Dx/Rx/DC Orders Clinical Impression: Cellulitis of hip, left, Paraplegia, Urinary tract infection Instructions: UTIs Understanding, ED Cellulitis Prescriptions: New sulfamethoxazole-trimethoprim [sulfamethoxazole-trimethoprim] 800-160 mg tablet 1 tab PO BID Qty: 14 0RF cephalexin [cephalexin] 500 mg capsule 500 mg PO Q6 Qty: 40 0RF No Action metoprolol succinate 50 mg tablet extended release 24 hr 50 mg PO BID gabapentin 100 mg capsule 100 mg PO BID Eliquis 5 mg tablet 5 mg PO BID 30 Days Qty: 60 0RF losartan 100 mg tablet 100 mg PO DAILY Rx Instructions: family only gives half a tablet if SBP <120 metoclopramide HCl 10 mg tablet 5 mg PO TID amiodarone 200 mg tablet 200 mg PO DAILY@1400 Probiotic 10 billion cell Capsule 10,000 mmu cells PO DAILY@1400 atorvastatin 40 mg tablet 40 mg PO QHS Label Comments: TAKE ONE TABLET BY MOUTH DAILY Primary Care Provider: Jennie Peng Referrals: Jennie Peng MD [Primary Care Provider] - 3-5 Days if not improving Disposition Disposition: Home, Self Care
[2022-10-16 11:58] LABS: Absolute Lymphocyte Count 1.18 X10^3/uL (0.83-4.51); Absolute Neutrophil Count 9.7 X10^3/uL (2.0-7.7); Basophil# 0.02 X10^3/uL; Basophil% 0.2 % (0-1); Eosinophil# 0.01 X10^3/uL; Eosinophils% 0.1 % (0-5); Hematocrit 42.8 % (37-47); Hemoglobin 14.3 g/dL (12.0-15.0); Lymphocyte # 1.18 X10^3/ul (0.83-4.51); Lymphocyte % 10.2 % (19-41); Mean Corp Hgb Conc 33.4 g/dL (32-36); Mean Corpuscular Hgb 28.7 pg (27.0-32.0); Mean Corpuscular Volume 85.9 fL (81-99); Mean Platelet Vol. 9.5 fl (6.2-12.0); Monocyte# 0.67 X10^3/uL; Monocyte% 5.8 % (0-10); NRBC Flagged by Analyzer 0 % (0-5); Neutrophil # 9.67 X10^3/uL (2.7-7.7); Neutrophil % 83.1 % (47-70); Platelet Count 151 K/mm3 (150-450); RBC Distribution Width CV 15.2 % (11.6-14.6); RBC Distribution Width SD 47.5 fl (35.1-43.9); Red Blood Count 4.98 M/mm3 (4.2-5.4); White Blood Count 11.6 K/mm3 (4.4-11.0)
[2022-10-16 12:08] VITALS: BP 134/73; PULSE 89; RESP 19; TEMP 37.7; O2SAT 97
[2022-10-16 12:11] LABS: Anion Gap 5 (5-15); BUN 16 mg/dL (7-18); BUN/Creat Ratio 22.7 RATIO (10-20); Calcium,Total 9.3 mg/dL (8.5-10.1); Chloride 103 mmol/L (98-107); EST Glomerular Filtration Rate 85 mL/min (>60); Est Glom Filt Rate - Afr Amer 103 mL/min (>60); Estimated Creatinine Clearance 40.04 ml/min; Glucose 101 mg/dL (74-106); Potassium 4.8 mmol/L (3.5-5.1); Sodium Level 135 mmol/L (136-145)
[2022-10-16] MEDS: Acetaminophen 500 MG Tablet 1000 MG PO (12:14)
[2022-10-16 12:23] LABS: Mucous, Urine 0 SEEN /hpf (<or=2+)
[2022-10-16 12:50] LABS: Color, Urine Yellow (Yellow); Glucose, Dipstick Normal (Normal); Ketone-Dipstick 15 mg/dl (Negative); Leukocyte Esterase-Dipstick 500 /ul (Negative); Nitrite-Dipstick Negative (Negative); Occult Blood-Urine 50 /ul (Negative); Protein-Dipstick 30 mg/dl (Negative); Urine Bilirubin Dipstick Negative (Negative); Urine Clarity Sl. Cloudy (Clear); Urine Urobilinogen Normal (Normal)
[2022-10-16 12:56] LABS: Amorphous Sediment 1+; Bacteria 1+ /hpf (None Seen); Red Blood Cells-Urine 0-5 SEEN /hpf (0-5); Squamous Epithelial Cells - UA 0-5 SEEN /hpf (5-10); White Blood Cells 25-50 SEEN /hpf (0-5)
[2022-10-16 13:00] VITALS: BP 126/52; PULSE 78; RESP 16; TEMP 37.5; O2SAT 96
[2022-10-16] MEDS: Ceftriaxone 1 GM/50 ML BAG IV (13:55)
[2022-10-16] MEDS: Vancomycin IV 1,000 MG/200 ML BAG 200 MG IV (14:40)
[2022-10-16 15:12] VITALS: BP 109/53; PULSE 71; PULSE 74; PULSE 75; RESP 14; RESP 16; RESP 17; TEMP 36.3; O2SAT 95
== END 2022-10-16 16:27 | disposition home or self-care (01) ==
PROVIDERS: Emergency Provider Emergency Medicine; PCP Student in an Organized Health Care Education/Training Program; Visit Provider Emergency Medicine
DX: L03.116 Cellulitis of left lower limb (principal); G82.20 Paraplegia, unspecified; N39.0 Urinary tract infection, site not specified; I25.10 Atherosclerotic heart disease of native coronary artery without angina pectoris; Z95.1 Presence of aortocoronary bypass graft
CPT/HCPCS: 80048; 81001; 85025; 87040; 87077; 87086; 87088; 87186; 87428; 96365; 96366; 96367; 99284; J7030

== ENCOUNTER 2022-11-19 10:00 | Outpatient (RCR) | payer OTHER, SELFPAY ==
[2022-10-21 00:20] VITALS: BP 149/98; PULSE 56; RESP 16; TEMP 35.6; BMI 25.9
[2022-10-24 10:15] VITALS: BP 137/50; PULSE 53; RESP 18; TEMP 35.5; BMI 25.9
--- NOTE | 2022-10-24 12:04 | PN.PCM_ITS ---
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 She had progressive paraplegia. She went to TCU for acute rehab for this progressive paraplegia. During that time she had worsening sacral pressure sore with skin necrosis. Surgery 05/15/21 - Excision necrotic sacral pressure sore, Stage IV, with partial ostectomy for osteomyelitis. Pathology from surgery on 05/15/21 of bone showed acute osteomyelitis. Operative tissue culture positive for Escherichia coli, Klebsiella, Vanc. Resist. E. gallinarum, Vanc. Resist. E. faecalis. Operative bone culture positive for Escherichia coli, Vanc. Resist. E. faecalis, Vanc. Resist. E. gallinarum. She was on Meropenem, Vancomycin has been stopped and Linezolid started. ID is managing. Radiation from 05/17/21 - 06/12/21 18 treatments to T4-T7 area including paraspinal region. 06/06/21- Laparoscopic sigmoid colectomy with creation of end colostomy for fecal diversion. Was in TCU 06/08/21-07/20/21. Patient had a recent hospitalization on 01/19/2022. She states she had C. difficile. She was discharged on 01/22/2022. While she was hospitalized she developed a new ulcer on her right ischium. Has dry scabbing. Wound Care - Moistened Aquacel-Ag covered with gauze dressing daily. Right ischium ulcer remains healed. The left ischial is healed. Place A&D ointment or Aquaphor for a barrier cream to laney wound of sacral ulcer to moisturize and protect the skin. Stop using calmaceptine, because it is drying out the laney w ound. She denies any nausea and vomiting. She states that her appetite is improving and she is drinking extra protein shakes. Progress of Wound: Sacral ulcer is larger than her last visit. Laney wound is clear using the A&D ointment. She was in the ED a week ago for UTI. She is currently on Keflex and Bactrim. Objective Data Objective Data Vital Signs: Vital Signs Temp Pulse Resp BP 96 F L 53 L 18 137/50 H 10/24/22 10:15 10/24/22 10:15 10/24/22 10:15 10/24/22 10:15 Weight: 155 lb 11.464 oz Body Mass Index (BMI) 25.9 Charges/Coding Procedures Integumentary 111xxx-113xx: 28134 Casie subq tissue 20 sq cm/< Debridement Note Debridement Note Wound debrided: Sacral ulcer Wound Grade/Stage: Stage IV Type of Debridement: Excisional debridement Anesthesia Used: 4% Lidocaine Solution Depth: Down to and including healthy tissue and in the subcutaneous layer Percentage of wound debrided: 100 Instrument Used: 3mm curette Tissue Removed: Non viable tissue and slough. Severity: Limited To Skin Breakdown Amount of bleeding with debridement: Mild Bleeding Controlled with: Pressure and Compression and gauze Patient tolerated procedure: Patient tolerated procedure well Post-Debridement Measurements and Additional Note: Post-Debridement Measurements/Treatment - Nurse 1 - General Ulcer Assessment Start: 10/24/22 10:02 Freq: Status: Active Protocol: KRANTHI Activity Type Activity Date Activity User E-sign Co-sign Detail Recorded Client Recorded Date Recorded By Document 10/24/22 10:15 [id number] 10/24/22 10:17 RB 10/24/22 10:15 - Today's Visit Information Type of service Follow-up Visit (Physician/INTERNATIONAL NURSE ) Arrival Mode Wheelchair Transfer Assistance Will Lift Patient Identification Verified (Name & Yes ) Patient Requires Transmission-Based No Precautions Height and Weight Body Mass Index (BMI) 25.9 BMI Classification Overweight Vital Signs Temperature (97.8 F-99.1 F) 96 F L Temperature Source Temporal Pulse Rate (60-100) 53 L Pulse Location Monitor Respiratory Rate (12-18) 18 Respiratory rate source Observation Blood Pressure (90/60-120/80) 137/50 H Blood Pressure Mean (mm Hg) 79 Source Monitor Position Semi-Fowlers Blood Pressure Location Left Arm History Since Last Visit- (Skip if this is Patient's initial visit) Have you changed medications since your No last visit? Any new allergies or adverse reactions No Had a fall/change in ADL's that may No increase risk of falls Signs or symptoms of abuse and/or No neglect since last visit Have you been in the hospital since your No last visit? Has dressing in place as prescribed Yes Has compression in place as prescribed No Has offloadiing in place as prescribed No Experienced any changes in pain level or No management Pain Scale: 0-10 Numeric Is Patient Pain Free? Yes - Nurse 1 - General Ulcer Measurement Start: 10/24/22 10:02 Freq: Status: Active Protocol: Activity Type Activity Date Activity User E-sign Co-sign Detail Recorded Client Recorded Date Recorded By Document 10/24/22 10:15 TERRANCE [id number] 10/24/22 10:17 RB 10/24/22 10:15 Wound Center Nurse 1 #1 Sacral cluster -Combined with other wound No -Current Size (cm) - Length 0.7 -Current Size (cm) - Width 0.2 -Current Size (cm) - Depth 0.2 -Total Square Cm 0.14 -Photo Taken Yes -Tunneling No -Undermining/Tunneling No -Circular Undermining No -Exudate Amt Medium -Exudate Type Serosanguineous -Wound Margin Distinct, Outline Attached -Granulation Amt Medium (34-66%) -Granulation Quality [place] -Slough/Fibrin Yes -Necrosis Amt Medium (34-66%) -Necrotic Tissue Type Adherent Slough -Structure Exposed N/A -Texture (Laney-wound Skin Appearance) Assessed,Rash -Moisture (Laney-wound Skin Appearance) Assessed -Color (Laney-wound Skin Appearance) Assessed -Temperature (Laney-wound Skin No Abnormality Appearance) (Pt Warm) -Tenderness on Palpation (Laney-wound No Skin Appearance) -Ulcer Cleansing Wound Cleanser -Foul Odor after Cleansing No -Anesthetic Used 5% Lidocaine Gel - Nurse 2 - General Ulcer CM Notes Start: 10/24/22 10:02 Freq: Status: Active Protocol: Activity Type Activity Date Activity User E-sign Co-sign Detail Recorded Client Recorded Date Recorded By Document 10/24/22 11:15 [id number] 10/24/22 11:18 NIDHI 10/24/22 11:15 Wound Center Nurse 2 -Time 11:15 -Correct Patient Yes -Correct Side, Site, Position Yes -Correct Procedure Yes -Procedure Performed Yes -Type of Procedure Debridement -Clinical Debridement Subcutaneous -Tissue Removed Subcutaneous -Post Debridement (cm) - Length 1.0 -Post Debridement (cm) - Width 2.7 -Post Debridement (cm) - Depth 0.1 -Total Square (Post) (cm) 2.70 -Area of Debridement (cm) - Length 1.0 -Area of Debridement (cm) - Width 2.7 -Total Square (Area) (cm) 2.70 -Tunneling No -Undermining/Tunneling No -Circular Undermining No -Wound/Ulcer Outcome Not Healed -Ulcer Cleansing Rinsed/ Irrigated with Saline -Foul Odor after Cleansing No -Bioengineered Tissue No -Bleeding Controlled with Pressure -Treatment Response Procedure Tolerated Well -Offloading No -Pressure Reduction Wheelchair cushion -Debridement - Subq, 1st 20sq cm Yes Pain Scale: 0-10 Numeric Is Patient Pain Free? Yes - Nurse 3 - General Ulcer D/C NN Start: 10/24/22 10:02 Freq: Status: Active Protocol: Activity Type Activity Date Activity User E-sign Co-sign Detail Recorded Client Recorded Date Recorded By Document 10/24/22 11:25 [facility] [id number] 10/24/22 11:26 [facility] 10/24/22 11:25 Wound Care Nurse 3 #1 Sacral cluster -Ulcer Cleansing Rinsed/ Irrigated with Saline -Foul Odor after Cleansing No -Primary Dressing Applied Aquacel AG 4x4, Mepilex Border -Other Dressing DRSG PER RB RN -Aquacel AG 4x4 1 -Mepilex Border 1 Treatment Response Procedure Tolerated Well Pain Scale: 0-10 Numeric Is Patient Pain Free? Yes - Visit Discharge Discharge Condition Stable Ambulatory Status Wheelchair Transportation Private Auto Accompanied by DAUGHTER AND Facility Type Home Health Assessment/Plan Assessment/Plan (1) Pressure ulcer of sacral region, stage 4: CODE(S): L89.154 - Pressure ulcer of sacral region, stage 4 (2) Paraplegia: CODE(S): G82.20 - Paraplegia, unspecified (3) Osteomyelitis of pelvis: CODE(S): M86.9 - Osteomyelitis, unspecified (4) Large B-cell lymphoma: CODE(S): C85.10 - Unspecified B-cell lymphoma, unspecified site PLAN: Plan Wound Care - Moistened Aquacel-Ag covered with gauze daily. Laney wound of the sacral ulcer is clear using the A&D ointment to the laney wound. The right ischial ulcer remains healed. Encouraged to massage the healed areas 1-2 times a day with aquaphor/barrier cream with no zinc in it to help soften the scarring. Wound culture 10/07/21 while in the hospital positive for Klebsiella oxytoca, Staphylococcus haemolyticus, and Corynebacterium striatum. Treated with Zosyn and Vanc while hospitalized. Completed Augmentin. Wound culture from 09/12/21 was positive for Staphylococcus haemolyticus and Enterococcus faecalis. Completed Augmentin and Doxycycline and a probiotic. Encourage increased protein intake to help with wound healing. Her family does a really nice job with her wound care. Follow up 3 weeks. Call or come in sooner if have any questions or concerns.
[2022-11-19 10:09] VITALS: BP 157/73; PULSE 59; TEMP 36.2; BMI 25.9
--- NOTE | 2022-11-19 11:59 | PN.PCM_ITS ---
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 She had progressive paraplegia. She went to TCU for acute rehab for this progressive paraplegia. During that time she had worsening sacral pressure sore with skin necrosis. Surgery 05/15/21 - Excision necrotic sacral pressure sore, Stage IV, with partial ostectomy for osteomyelitis. Pathology from surgery on 05/15/21 of bone showed acute osteomyelitis. Operative tissue culture positive for Escherichia coli, Klebsiella, Vanc. Resist. E. gallinarum, Vanc. Resist. E. faecalis. Operative bone culture positive for Escherichia coli, Vanc. Resist. E. faecalis, Vanc. Resist. E. gallinarum. She was on Meropenem, Vancomycin has been stopped and Linezolid started. ID is managing. Radiation from 05/17/21 - 06/12/21 18 treatments to T4-T7 area including paraspinal region. 06/06/21- Laparoscopic sigmoid colectomy with creation of end colostomy for fecal diversion. Was in TCU 06/08/21-07/20/21. Patient had a recent hospitalization on 01/19/2022. She states she had C. difficile. She was discharged on 01/22/2022. While she was hospitalized she developed a new ulcer on her right ischium. Has dry scabbing. Wound Care - Moistened Aquacel-Ag covered with gauze dressing daily. Right ischium ulcer remains healed. The left ischial is healed. Place A&D ointment or Aquaphor for a barrier cream to laney wound of sacral ulcer to moisturize and protect the skin. Stop using calmaceptine, because it is drying out the laney w ound. She denies any nausea and vomiting. She states that her appetite is improving and she is drinking extra protein shakes. Progress of Wound: Sacral ulcer is smaller. She has a small skin tear from tape on her right buttock today. Laney wound is clear using the A&D ointment. Objective Data Objective Data Vital Signs: Vital Signs Temp Pulse Resp BP 97.2 F L 59 L 18 157/73 H 11/19/22 10:09 11/19/22 10:09 10/24/22 10:15 11/19/22 10:09 Weight: 155 lb 11.464 oz Body Mass Index (BMI) 25.9 Charges/Coding Procedures Integumentary 111xxx-113xx: 34576 Casie subq tissue 20 sq cm/< Debridement Note Debridement Note Wound debrided: Sacral ulcer Wound Grade/Stage: Stage IV Type of Debridement: Excisional debridement Anesthesia Used: 4% Lidocaine Solution Depth: Down to and including healthy tissue and in the subcutaneous layer Percentage of wound debrided: 100 Instrument Used: 3mm curette Tissue Removed: Non viable tissue and slough. Severity: Limited To Skin Breakdown Amount of bleeding with debridement: Mild Bleeding Controlled with: Pressure and Compression and gauze Patient tolerated procedure: Patient tolerated procedure well Post-Debridement Measurements and Additional Note: Post-Debridement Measurements/Treatment - Nurse 1 - General Ulcer Assessment Start: 10/24/22 10:02 Freq: Status: Active Protocol: NICOLAS.FLACO Activity Type Activity Date Activity User E-sign Co-sign Detail Recorded Client Recorded Date Recorded By Document 10/24/22 10:15 RB [id number] 10/24/22 10:17 RB Document 11/19/22 10:09 DL [id number] 11/19/22 10:15 DL 10/24/22 11/19/22 10:15 10:09 - Today's Visit Information Type of service Follow-up Visit Follow-up Visit (Physician/MACHINE HEEL SEAT LASTER (Physician/MACHINE HEEL SEAT LASTER ) ) Arrival Mode Wheelchair Wheelchair Transfer Assistance Will Lift Patient Identification Verified (Name & Yes Yes ) Patient Requires Transmission-Based No No Precautions Height and Weight Body Mass Index (BMI) 25.9 25.9 BMI Classification Overweight Overweight Vital Signs Temperature (97.8 F-99.1 F) 96 F L 97.2 F L Temperature Source Temporal Temporal Pulse Rate (60-100) 53 L 59 L Pulse Location Monitor Monitor Respiratory Rate (12-18) 18 Respiratory rate source Observation Blood Pressure (90/60-120/80) 137/50 H 157/73 H Blood Pressure Mean (mm Hg) 79 101 Source Monitor Monitor Position Semi-Fowlers Blood Pressure Location Left Arm History Since Last Visit- (Skip if this is Patient's initial visit) Have you changed medications since your No No last visit? Any new allergies or adverse reactions No No Had a fall/change in ADL's that may No No increase risk of falls Signs or symptoms of abuse and/or No No neglect since last visit Have you been in the hospital since your No No last visit? Has dressing in place as prescribed Yes Yes Has compression in place as prescribed No N/A Has offloadiing in place as prescribed No Yes Experienced any changes in pain level or No No management Left Footwear Regular Shoe Right Footwear Regular Shoe Pain Scale: 0-10 Numeric Is Patient Pain Free? Yes Yes WC - Nurse 1 - General Ulcer Measurement Start: 10/24/22 10:02 Freq: Status: Active Protocol: Activity Type Activity Date Activity User E-sign Co-sign Detail Recorded Client Recorded Date Recorded By Document 10/24/22 10:15 RB [id number] 10/24/22 10:17 RB Document 11/19/22 10:09 DL [id number] 11/19/22 10:15 DL 10/24/22 11/19/22 10:15 10:09 Wound Center Nurse 1 #1 Sacral cluster -Combined with other wound No No -Current Size (cm) - Length 0.7 0.5 -Current Size (cm) - Width 0.2 0.2 -Current Size (cm) - Depth 0.2 0.1 -Total Square Cm 0.14 0.10 -Photo Taken Yes No -Tunneling No No -Undermining/Tunneling No No -Circular Undermining No No -Change in Wound Grade/Stage No -Exudate Amt Medium Small -Exudate Type Serosanguineous Serosanguineous -Wound Margin Distinct, Distinct, Outline Outline Attached Attached -Granulation Amt Medium (34-66%) None Present (0 %) -Granulation Quality [place] -Slough/Fibrin Yes Yes -Necrosis Amt Medium (34-66%) Small (1-33%) -Necrotic Tissue Type Adherent Slough Adherent Slough -Structure Exposed N/A N/A -Texture (Laney-wound Skin Appearance) Assessed,Rash No Abnormality, Assessed -Moisture (Laney-wound Skin Appearance) Assessed No Abnormality, Assessed -Color (Laney-wound Skin Appearance) Assessed No Abnormality, Assessed -Temperature (Laney-wound Skin No Abnormality No Abnormality Appearance) (Pt Warm) (Pt Warm) -Tenderness on Palpation (Laney-wound No No Skin Appearance) -Ulcer Cleansing Wound Cleanser Rinsed/ Irrigated with Saline -Foul Odor after Cleansing No No -Anesthetic Used 5% Lidocaine 4% Lidocaine Gel Solution NICOLAS - Nurse 2 - General Ulcer CM Notes Start: 10/24/22 10:02 Freq: Status: Active Protocol: Activity Type Activity Date Activity User E-sign Co-sign Detail Recorded Client Recorded Date Recorded By Document 10/24/22 11:15 [id number] 10/24/22 11:18 Document 11/19/22 10:34 [id number] 11/19/22 10:36 10/24/22 11/19/22 11:15 10:34 Wound Center Nurse 2 #1 Sacral cluster -Time 11:15 10:35 -Correct Patient Yes Yes -Correct Side, Site, Position Yes Yes -Correct Procedure Yes Yes -Procedure Performed Yes Yes -Type of Procedure Debridement -Type of Procedure Debridement -Clinical Debridement Subcutaneous Subcutaneous -Tissue Removed Subcutaneous Subcutaneous -Post Debridement (cm) - Length 1.0 1.0 -Post Debridement (cm) - Width 2.7 2.2 -Post Debridement (cm) - Depth 0.1 0.2 -Total Square (Post) (cm) 2.70 2.20 -Area of Debridement (cm) - Length 1.0 1.0 -Area of Debridement (cm) - Width 2.7 2.2 -Total Square (Area) (cm) 2.70 2.20 -Tunneling No No -Undermining/Tunneling No No -Circular Undermining No No -Wound/Ulcer Outcome Not Healed Not Healed -Ulcer Cleansing Rinsed/ Rinsed/ Irrigated with Irrigated with Saline Saline -Foul Odor after Cleansing No No -Bioengineered Tissue No No -Bleeding Controlled with Pressure Pressure -Treatment Response Procedure Procedure Tolerated Well Tolerated Well -Offloading No No -Pressure Reduction Wheelchair Wheelchair cushion cushion, Specialty bed -Debridement - Subq, 1st 20sq cm Yes Yes Pain Scale: 0-10 Numeric Is Patient Pain Free? Yes Yes NICOLAS - Nurse 3 - General Ulcer D/C NN Start: 10/24/22 10:02 Freq: Status: Active Protocol: Activity Type Activity Date Activity User E-sign Co-sign Detail Recorded Client Recorded Date Recorded By Document 10/24/22 11:25 [facility] [id number] 10/24/22 11:26 BM Document 11/19/22 10:44 DL [id number] 11/19/22 10:45 DL 10/24/22 11/19/22 11:25 10:44 Wound Care Center Nurse 3 #1 Sacral cluster -Ulcer Cleansing Rinsed/ Rinsed/ Irrigated with Irrigated with Saline Saline -Foul Odor after Cleansing No No -Primary Dressing Applied Aquacel AG 4x4, Aquacel AG 4x4, Mepilex Border Mepilex Border -Other Dressing DRSG PER RB RN -Aquacel AG 4x4 1 1 -Mepilex Border 1 1 Treatment Response Procedure Procedure Tolerated Well Tolerated Well Pain Scale: 0-10 Numeric Is Patient Pain Free? Yes Yes WC - Visit Discharge Discharge Condition Stable Stable Ambulatory Status Wheelchair Wheelchair Transportation Private Auto Private Auto Accompanied by DAUGHTER AND Facility Type Home Health Home Health Orders Sent Yes Assessment/Plan Assessment/Plan (1) Pressure ulcer of sacral region, stage 4: CODE(S): L89.154 - Pressure ulcer of sacral region, stage 4 (2) Paraplegia: CODE(S): G82.20 - Paraplegia, unspecified (3) Osteomyelitis of pelvis: CODE(S): M86.9 - Osteomyelitis, unspecified (4) Large B-cell lymphoma: CODE(S): C85.10 - Unspecified B-cell lymphoma, unspecified site PLAN: Plan Wound Care - Moistened Aquacel-Ag covered with gauze daily. She has a skin tear on right buttocks that they can place antibiotic ointment until healed. Laney wound of the sacral ulcer is clear using the A&D ointment to the laney wound. The right ischial ulcer remains healed. Encouraged to massage the healed areas 1-2 times a day with aquaphor/barrier cream with no zinc in it to help soften the scarring. Wound culture 10/07/21 while in the hospital positive for Klebsiella oxytoca, Staphylococcus haemolyticus, and Corynebacterium striatum. Treated with Zosyn and Vanc while hospitalized. Completed Augmentin. Wound culture from 09/12/21 was positive for Staphylococcus haemolyticus and Enterococcus faecalis. Completed Augmentin and Doxycycline and a probiotic. Encourage increased protein intake to help with wound healing. Her family does a really nice job with her wound care. They turn her every 2 hours. Follow up 3 weeks. Call or come in sooner if have any questions or concerns.
== END 2022-11-20 23:59 | disposition home or self-care (01) ==
LOC: WC 10:00
PROVIDERS: PCP Student in an Organized Health Care Education/Training Program; Visit Provider Nurse Practitioner Family
DX: L89.154 Pressure ulcer of sacral region, stage 4 (principal); G82.20 Paraplegia, unspecified; C85.10 Unspecified B-cell lymphoma, unspecified site; M86.9 Osteomyelitis, unspecified; Z92.3 Personal history of irradiation
CPT/HCPCS: 11042

== ENCOUNTER 2022-12-10 10:06 | Outpatient (RCR) | payer OTHER, SELFPAY ==
[2022-11-21 00:27] VITALS: BP 157/73; PULSE 59; RESP 18; TEMP 36.2; BMI 25.9
[2022-12-10 10:13] VITALS: BP 152/62; PULSE 59; RESP 16; TEMP 35.5; BMI 25.9
--- NOTE | 2022-12-10 11:54 | PN.PCM_ITS ---
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 She had progressive paraplegia. She went to TCU for acute rehab for this progressive paraplegia. During that time she had worsening sacral pressure sore with skin necrosis. Surgery 05/15/21 - Excision necrotic sacral pressure sore, Stage IV, with partial ostectomy for osteomyelitis. Pathology from surgery on 05/15/21 of bone showed acute osteomyelitis. Operative tissue culture positive for Escherichia coli, Klebsiella, Vanc. Resist. E. gallinarum, Vanc. Resist. E. faecalis. Operative bone culture positive for Escherichia coli, Vanc. Resist. E. faecalis, Vanc. Resist. E. gallinarum. She was on Meropenem, Vancomycin has been stopped and Linezolid started. ID is managing. Radiation from 05/17/21 - 06/12/21 18 treatments to T4-T7 area including paraspinal region. 06/06/21- Laparoscopic sigmoid colectomy with creation of end colostomy for fecal diversion. Was in TCU 06/08/21-07/20/21. Patient had a recent hospitalization on 01/19/2022. She states she had C. difficile. She was discharged on 01/22/2022. While she was hospitalized she developed a new ulcer on her right ischium. Has dry scabbing. Wound Care - Moistened Aquacel-Ag covered with gauze dressing daily. Right ischium ulcer remains healed. The left ischial is healed. Place A&D ointment or Aquaphor for a barrier cream to laney wound of sacral ulcer to moisturize and protect the skin. Stop using calmaceptine, because it is drying out the laney w ound. She denies any nausea and vomiting. She states that her appetite is improving and she is drinking extra protein shakes. Progress of Wound: Sacral ulcer is smaller. She has a small skin tear from tape on her right buttock today. Laney wound is clear using the A&D ointment. Objective Data Objective Data Vital Signs: Vital Signs Temp Pulse Resp BP O2 Del Method 95.9 F L 59 L 16 152/62 H Room Air 12/10/22 10:13 12/10/22 10:13 12/10/22 10:13 12/10/22 10:13 12/10/22 10:13 Oxygen Delivery Method Room Air Weight: 155 lb 11.464 oz Body Mass Index (BMI) 25.9 Charges/Coding Procedures Integumentary 111xxx-113xx: [id number] Casie subq tissue 20 sq cm/< Debridement Note Debridement Note Wound debrided: Sacral ulcer Wound Grade/Stage: Stage IV Type of Debridement: Excisional debridement Anesthesia Used: 4% Lidocaine Solution Depth: Down to and including healthy tissue and in the subcutaneous layer Percentage of wound debrided: 100 Instrument Used: 3mm curette Tissue Removed: Non viable tissue and slough. Severity: Limited To Skin Breakdown Amount of bleeding with debridement: Mild Bleeding Controlled with: Pressure and Compression and gauze Patient tolerated procedure: Patient tolerated procedure well Post-Debridement Measurements and Additional Note: Post-Debridement Measurements/Treatment - Nurse 1 - General Ulcer Assessment Start: 12/10/22 10:13 Freq: Status: Active Protocol: KRANTHI Activity Type Activity Date Activity User E-sign Co-sign Detail Recorded Client Recorded Date Recorded By Document 12/10/22 10:13 [facility] [id number] 12/10/22 10:26 [facility] 12/10/22 10:13 - Today's Visit Information Type of service Follow-up Visit (Physician/SECTION HAND ) Arrival Mode Wheelchair Transfer Assistance Will Lift Transfer Assist (Other) 2 Accompanied by , and daughter Patient Identification Verified (Name & Yes ) Patient Requires Transmission-Based No Precautions Height and Weight Body Mass Index (BMI) 25.9 BMI Classification Overweight Vital Signs Temperature (97.8 F-99.1 F) 95.9 F L Temperature Source Temporal Pulse Rate (60-100) 59 L Pulse Location Monitor Respiratory Rate (12-18) 16 Respiratory rate source Observation Oxygen Delivery Method Room Air Blood Pressure (90/60-120/80) 152/62 H Blood Pressure Mean (mm Hg) 92 Source Monitor Position Sitting Blood Pressure Location Left Forearm History Since Last Visit- (Skip if this is Patient's initial visit) Have you changed medications since your No last visit? Any new allergies or adverse reactions No Had a fall/change in ADL's that may No increase risk of falls Signs or symptoms of abuse and/or No neglect since last visit Have you been in the hospital since your No last visit? Has dressing in place as prescribed Yes Has compression in place as prescribed N/A Has offloadiing in place as prescribed N/A Experienced any changes in pain level or No management Left Footwear No Footwear Right Footwear No Footwear Pain Scale: 0-10 Numeric Is Patient Pain Free? Yes - Nurse 1 - General Ulcer Measurement Start: 12/10/22 10:13 Freq: Status: Active Protocol: Activity Type Activity Date Activity User E-sign Co-sign Detail Recorded Client Recorded Date Recorded By Document 12/10/22 10:13 [facility] [id number] 12/10/22 10:26 [facility] 12/10/22 10:13 Wound Center Nurse 1 #1 Sacral cluster -Current Size (cm) - Length 0.3 -Current Size (cm) - Width 0.3 -Current Size (cm) - Depth 0.3 -Total Square Cm 0.09 -Exudate Amt None Present -Exudate Type Serosanguineous -Wound Margin Distinct, Outline Attached -Slough/Fibrin No -Necrosis Amt None Present (0 %) -Necrotic Tissue Type Adherent Slough -Texture (Laney-wound Skin Appearance) Assessed -Moisture (Laney-wound Skin Appearance) Assessed -Color (Laney-wound Skin Appearance) Assessed -Temperature (Laney-wound Skin No Abnormality Appearance) (Pt Warm) -Tenderness on Palpation (Laney-wound No Skin Appearance) -Ulcer Cleansing Rinsed/ Irrigated with Saline -Foul Odor after Cleansing No -Anesthetic Used 5% Lidocaine Gel - Nurse 2 - General Ulcer CM Notes Start: 12/10/22 10:13 Freq: Status: Active Protocol: Activity Type Activity Date Activity User E-sign Co-sign Detail Recorded Client Recorded Date Recorded By Document 12/10/22 10:42 [id number] 12/10/22 10:43 12/10/22 10:42 Wound Center Nurse 2 -Time 10:42 -Correct Patient Yes -Correct Side, Site, Position Yes -Correct Procedure Yes -Procedure Performed Yes -Type of Procedure Debridement -Clinical Debridement Subcutaneous -Tissue Removed Subcutaneous -Post Debridement (cm) - Length 0.5 -Post Debridement (cm) - Width 0.7 -Post Debridement (cm) - Depth 0.2 -Total Square (Post) (cm) 0.35 -Area of Debridement (cm) - Length 0.5 -Area of Debridement (cm) - Width 0.7 -Total Square (Area) (cm) 0.35 -Tunneling No -Undermining/Tunneling No -Circular Undermining No -Wound/Ulcer Outcome Not Healed -Ulcer Cleansing Rinsed/ Irrigated with Saline -Foul Odor after Cleansing No -Bioengineered Tissue No -Bleeding Controlled with Pressure -Treatment Response Procedure Tolerated Well -Offloading No -Debridement - Subq, 1st 20sq cm Yes Pain Scale: 0-10 Numeric Is Patient Pain Free? Yes - Nurse 3 - General Ulcer D/C NN Start: 12/10/22 10:13 Freq: Status: Active Protocol: Activity Type Activity Date Activity User E-sign Co-sign Detail Recorded Client Recorded Date Recorded By Document 12/10/22 11:00 ALAN [id number] 12/10/22 11:03 ALAN 12/10/22 11:00 Wound Care Center Nurse 3 #1 Sacral cluster -Ulcer Cleansing Rinsed/ Irrigated with Saline -Foul Odor after Cleansing No -Negative Pressure Wound Therapy N/A -Primary Dressing Applied Mepilex Border -Other Dressing own ag -Mepilex Border 1 Pain Scale: 0-10 Numeric Is Patient Pain Free? Yes WC - Visit Discharge Discharge Condition Stable Ambulatory Status Wheelchair Accompanied by transportation Medication Reconcilliation completed & Yes provided to patient/care provider Clinical Summary of Care Provided Yes Assessment/Plan Assessment/Plan (1) Pressure ulcer of sacral region, stage 4: CODE(S): L89.154 - Pressure ulcer of sacral region, stage 4 (2) Paraplegia: CODE(S): G82.20 - Paraplegia, unspecified (3) Osteomyelitis of pelvis: CODE(S): M86.9 - Osteomyelitis, unspecified (4) Large B-cell lymphoma: CODE(S): C85.10 - Unspecified B-cell lymphoma, unspecified site PLAN: Plan Wound Care - Moistened Aquacel-Ag covered with gauze daily. Use silicone tape to help prevent skin tears from tape. She has a skin tear on right buttocks from removing the adhesive dressing today. Laney wound of the sacral ulcer is clear using the A&D ointment to the laney wound. Wound culture 10/07/21 while in the hospital positive for Klebsiella oxytoca, Staphylococcus haemolyticus, and Corynebacterium striatum. Treated with Zosyn and Vanc while hospitalized. Completed Augmentin. Wound culture from 09/12/21 was positive for Staphylococcus haemolyticus and Enterococcus faecalis. Completed Augmentin and Doxycycline and a probiotic. Encourage increased protein intake to help with wound healing. Her family does a really nice job with her wound care. They turn her every 2 hours. Follow up 4 weeks. Call or come in sooner if have any questions or concerns.
== END 2022-12-18 23:59 | disposition home or self-care (01) ==
LOC: WC 10:06
PROVIDERS: PCP Student in an Organized Health Care Education/Training Program; Visit Provider Nurse Practitioner Family
DX: L89.154 Pressure ulcer of sacral region, stage 4 (principal); G82.20 Paraplegia, unspecified; C85.10 Unspecified B-cell lymphoma, unspecified site; Z92.3 Personal history of irradiation
CPT/HCPCS: 11042

== ENCOUNTER 2023-01-06 09:53 | Emergency (ER) | payer OTHER, SELFPAY ==
[2023-01-06 09:55] VITALS: BP 158/76; PULSE 91; RESP 22; TEMP 37; O2SAT 99
--- NOTE | 2023-01-06 10:09 | EX.ED.VIS.UR ---
HPI HPI - URI History of Present Illness Chief Complaint: Cold Sx Informant: patient and family Narrative Narrative: 2-day history of headache sinus congestion mild productive cough. Fever yesterday. None this morning. No sick contacts. History of B-cell lymphoma no current therapy. Paralysis secondary to this in a wheelchair. History of paroxysmal A-fib on Eliquis. Nonvaccinated for COVID. No COVID infections in the past. Reports with oncology visits she gets screen and has been negative. Has not done any home testing. Denies vomiting or diarrhea. ROS ROS ED Constitutional Constitutional ED: Reports fever(s); Denies chills or sweats Eyes Eyes: Denies change in vision ENT ENT ED: Reports other Details: Sinus congestion ; Denies dysphagia or sore throat Cardiovascular Cardiovascular: Denies chest pain, leg edema, palpitations or racing heartbeat Respiratory/Chest Respiratory/Chest: Reports cough; Denies dyspnea or dyspnea on exertion Gastrointestinal Gastrointestinal: Denies abdominal pain, diarrhea, nausea or vomiting Genitourinary Genitourinary ED: Denies dysuria, hematuria or urinary frequency Musculoskeletal Musculoskeletal: Denies back pain, extremity pain or neck pain Integumentary Denies rash or wounds Neurologic Neurologic: Reports headache(s); Denies paresthesias or weakness [facility] History Abdominal pain Acute postoperative anemia due to expected blood loss Adrenal disorder Adynamic ileus Afib Atrial fibrillation with rapid ventricular response Cancer Chronic indwelling Gutierrez catheter Colostomy in place Coronary artery disease Coronary artery disease Debility Debility Decubitus ulcer Decubitus ulcer of left ischium, stage 4 Diffuse large B cell lymphoma Diffuse large B-cell lymphoma Gallstone History of radiation therapy Hypertension Ileus Infection Large cell lymphoma MCI (mild cognitive impairment) Myocardial infarct Neuropathic pain Osteomyelitis of pelvis Paraplegia Paraplegia Paraplegia Pressure sore Pressure ulcer of sacral region, stage 4 Pressure ulcer of sacral region, unstageable UTI (urinary tract infection) Home Medications apixaban 5 mg tablet (Eliquis) 5 mg PO BID Blood thinner 30 days #60 tabs 07/20/21 [Rx Last Taken 10/06/21] losartan 100 mg tablet 50 mg PO DAILY HEART 10/07/21 [History Last Taken 10/06/21] amiodarone 200 mg tablet 200 mg PO DAILY@1400 HEART 12/12/21 [History Last Taken Unknown] gabapentin 100 mg capsule 100 mg PO BID 12/12/21 [History Last Taken Unknown] metoclopramide HCl 10 mg tablet 5 mg PO DAILY NAUSEA 12/12/21 [History Last Taken Unknown] metoprolol succinate 50 mg tablet,extended release 24 hr 25 mg PO DAILY BP 12/12/21 [History Last Taken Unknown] Lactobacillus acidophilus 10 billion cell capsule (Probiotic) 10,000 mmu cells PO DAILY@1400 supplement 01/19/22 [History Last Taken Unknown] atorvastatin 40 mg tablet 40 mg PO QHS cholesterol 01/20/22 [History Last Taken Unknown] molnupiravir 200 mg capsule (EUA) 800 mg PO Q12H 5 days #40 caps 01/06/23 [Rx Last Taken Unknown] ondansetron 4 mg disintegrating tablet 4 mg PO Q8H PRN PRN Nausea #10 tabs 01/06/23 [Rx Last Taken Unknown] oseltamivir 75 mg capsule (Tamiflu) 75 mg PO BID 5 days #10 caps 01/06/23 [Rx Last Taken Unknown] sennosides 8.6 mg-docusate sodium 50 mg capsule (Senna Plus) 2 tab-cap PO DAILY PRN PRN Constipation 01/06/23 [History Last Taken Unknown] Allergy/AdvReac Type Severity Reaction Status Date / Time prednisone Allergy Intermediate atrial Verified 01/06/23 09:58 fibrillation Family History Father CHF (congestive heart failure) Myocardial infarction Mother CAD (coronary artery disease) Alzheimer disease Surgical History H/O Spinal surgery History of cholecystectomy Hx of CABG S/P cholecystectomy S/P excisional debridement Social History household members: family housing: house number of children: 5 Smoking Status: Never smoker alcohol intake: never substance use type: does not use what type of physical activity do you participate in: other details: leg therapy/hand weights frequency: 5-6 times per week chris/buddhism: [facility] EXAM Physical Exam Const Vital Signs: 01/06/23 09:55 01/06/23 10:14 Temperature 98.6 F Temperature Source Temporal Pulse Rate 91 Respiratory Rate 22 H Respiratory Effort Short of Breath Respiratory Pattern Normal Blood Pressure 158/76 H Blood Pressure Mean 103 Pulse Ox 99 Oxygen Delivery Method Room Air Positive well nourished and well developed Constitutional Narrative: Sitting in wheelchair during exam, nontoxic. General Appearance ED: well developed and NAD HEENT Reports moist mucous membranes HEENT Narrative: TMs normal bilaterally. No swelling or terminus. No posterior pharyngeal erythema. normocephalic and atraumatic Eyes PERRL, EOMs intact bilaterally and conjunctivae normal General Eye ED: Yes normal appearance of both eyes Neck no lymphadenopathy, supple and no meningeal signs General: Negative for tenderness Chest Wall Chest: Negative for tenderness Resp normal respiratory effort and normal air movement Effort and Inspection: symmetric chest movement; Negative for respiratory distress Cardio regular rate, regular rhythm and no murmurs Peripheral Pulses: pulses 2+ throughout GI normal to inspection, nondistended, normoactive bowel sounds and non-tender Palpation: Negative for guarding or rebound tenderness present Back/Spine no CVA tenderness and no thoracic nor lumbar tenderness Extremity General Extremety ED: Negative for edema or tenderness General Extremity: Negative for edema Neuro oriented x3, CN's II-XII intact bilaterally and no sensory deficits noted Sensorium / Orientation: awake and alert Skin no rashes or lesions noted and no wounds MDM MDM MDM Narrative Medical decision making narrative: Interventions / MDM: Differential diagnosis: Viral syndrome, COVID, influenza, pneumonia Diagnosis considered but do not suspect: N/A My EKG interpretation: N/A Imaging independently reviewed and interpreted by myself: 2 view chest x-ray: No acute process External documents reviewed: N/A Test considered but not ordered:N/A ED course: Patient nontoxic, vital signs stable. Pulse ox 99% room air. Two-view chest x-ray negative. COVID and flu results positive for COVID and influenza B. Comorbidities with B-cell lymphoma paroxysmal A-fib, she is day 2 of symptoms. Discussed recommended treatments. She cannot do Paxlovid due to contraindications with both amiodarone and Eliquis and statins. Alternative with Molnupiravir discussed with the patient along with Tamiflu. First dose given in the ED. Meds to beds prescription along with Zofran for potential side effects. Return precaution discussed. All questions were answered. Re-evaluation: stable Disposition discussed with patient/family/significant other: Patient and family Case discussed with consulting clinician: N/A Radiography Diagnostic Testing: Clinical Impression(s) from Imaging Studies Chest X-Ray 01/06/23 10:19 IMPRESSION: No acute cardiopulmonary process identified. Electronically Signed: Nata Mark MD at 10:32 EDT Reading Location ID and State: [facility] / [place] Tel , Service support , Discharge Plan Triage Chief Complaint: Cold Sx Other Complaint: Cough ED Provider: Nick Bran Dx/Rx/DC Orders Clinical Impression: COVID-19, Large B-cell lymphoma, Influenza B Instructions: Coronavirus Disease 2019 (COVID-19): Caring for Yourself or Others, ED Influenza (Adult) Prescriptions: New oseltamivir [Tamiflu] 75 mg capsule 75 mg PO BID 5 Days Qty: 10 0RF ondansetron [ondansetron] 4 mg tablet,disintegrating 4 mg PO Q8H PRN PRN (Reason: Nausea) Qty: 10 0RF molnupiravir 200 mg capsule 800 mg PO Q12H 5 Days Qty: 40 0RF No Action metoprolol succinate 50 mg tablet extended release 24 hr 25 mg PO DAILY gabapentin 100 mg capsule 100 mg PO BID Rx Instructions: ONE DOSE DAILY AND 1 PRN IN EVENING Eliquis 5 mg tablet 5 mg PO BID 30 Days Qty: 60 0RF losartan 100 mg tablet 50 mg PO DAILY Rx Instructions: family only gives half a tablet if SBP <120 metoclopramide HCl 10 mg tablet 5 mg PO DAILY amiodarone 200 mg tablet 200 mg PO DAILY@1400 Probiotic 10 billion cell Capsule 10,000 mmu cells PO DAILY@1400 atorvastatin 40 mg tablet 40 mg PO QHS Label Comments: TAKE ONE TABLET BY MOUTH DAILY Senna Plus 8.6-50 mg Capsule 2 tab-cap PO DAILY PRN PRN (Reason: Constipation) Primary Care Provider: Jennie Peng Referrals: Jennie Peng MD [Primary Care Provider] - 3-5 Days Activity Restrictions/Additional Instructions: Chest x-ray negative. Nasal swab positive for influenza B and COVID-19. Take Molnupiravir and Tamiflu as prescribed. Finished a 5-day course. Follow-up your doctor. Return for any worsening symptoms. Disposition Disposition: Home, Self Care Discharge Date/Time: 01/06/23 12:21
[2023-01-06 10:16] VITALS: BMI 38.6
--- NOTE | 2023-01-06 10:19 | RAD_ITS ---
HISTORY: cough. TECHNIQUE: XR Chest 2 Views. COMPARISON: 10/07/2021. FINDINGS: CARDIOMEDIASTINAL BORDERS: Cardiac silhouette within normal limits in size. Mediastinal contour unchanged with midline sternotomy and tortuosity of the calcified aorta. LUNGS: Chronic coarse interstitial markings and calcified right upper lobe granuloma again seen. PLEURA: No pleural effusion or pneumothorax seen. OSSEOUS STRUCTURES: Degenerative change and osteopenia. RAD/Chest PA and Lateral IMPRESSION: No acute cardiopulmonary process identified. Electronically Signed: Nata Mark MD at 10:32 EDT ,
== END 2023-01-06 12:21 | disposition home or self-care (01) ==
PROVIDERS: Emergency Provider Emergency Medicine; PCP Student in an Organized Health Care Education/Training Program; Visit Provider Emergency Medicine
DX: U07.1 COVID-19 (principal); C85.10 Unspecified B-cell lymphoma, unspecified site; I48.0 Paroxysmal atrial fibrillation; J10.1 Influenza due to other identified influenza virus with other respiratory manifestations; I10 Essential (primary) hypertension; I25.10 Atherosclerotic heart disease of native coronary artery without angina pectoris; I25.2 Old myocardial infarction; Z95.1 Presence of aortocoronary bypass graft; Z79.01 Long term (current) use of anticoagulants; Z79.899 Other long term (current) drug therapy
CPT/HCPCS: 71046; 87428; 99282

== ENCOUNTER 2023-01-28 09:46 | Outpatient (RCR) | payer OTHER, SELFPAY ==
[2022-12-19 00:19] VITALS: BP 152/62; PULSE 59; RESP 16; TEMP 35.5; BMI 25.9
[2023-01-28 09:51] VITALS: BP 144/67; PULSE 64; RESP 16; TEMP 35.9; BMI 25.9
--- NOTE | 2023-01-28 11:33 | PN.PCM_ITS ---
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 She had progressive paraplegia. She went to TCU for acute rehab for this progressive paraplegia. During that time she had worsening sacral pressure sore with skin necrosis. Surgery 05/15/21 - Excision necrotic sacral pressure sore, Stage IV, with partial ostectomy for osteomyelitis. Pathology from surgery on 05/15/21 of bone showed acute osteomyelitis. Operative tissue culture positive for Escherichia coli, Klebsiella, Vanc. Resist. E. gallinarum, Vanc. Resist. E. faecalis. Operative bone culture positive for Escherichia coli, Vanc. Resist. E. faecalis, Vanc. Resist. E. gallinarum. She was on Meropenem, Vancomycin has been stopped and Linezolid started. ID is managing. Radiation from 05/17/21 - 06/12/21 18 treatments to T4-T7 area including paraspinal region. 06/06/21- Laparoscopic sigmoid colectomy with creation of end colostomy for fecal diversion. Was in TCU 06/08/21-07/20/21. Patient had a recent hospitalization on 01/19/2022. She states she had C. difficile. She was discharged on 01/22/2022. While she was hospitalized she developed a new ulcer on her right ischium. Has dry scabbing. Wound Care - Moistened Aquacel-Ag covered with gauze dressing daily. Right ischium ulcer remains healed. The left ischial is healed. Place A&D ointment or Aquaphor for a barrier cream to laney wound of sacral ulcer to moisturize and protect the skin. Stop using calmaceptine, because it is drying out the laney w ound. She denies any nausea and vomiting. She states that her appetite is improving and she is drinking extra protein shakes. Progress of Wound: Sacral ulcer is stable. Laney wound is clear. She has a new skin tear on her right buttocks from tape. She recently had Covid and Influenza B but is doing better. Objective Data Objective Data Vital Signs: Vital Signs Temp Pulse Resp BP O2 Del Method 96.7 F L 64 16 144/67 H Room Air 01/28/23 09:51 01/28/23 09:51 01/28/23 09:51 01/28/23 09:51 01/28/23 09:51 Oxygen Delivery Method Room Air Weight: 155 lb 11.464 oz Body Mass Index (BMI) 25.9 Charges/Coding Procedures Integumentary 111xxx-113xx: 65069 Casie subq tissue 20 sq cm/< Debridement Note Debridement Note Wound debrided: Sacral ulcer Wound Grade/Stage: Stage IV Type of Debridement: Excisional debridement Anesthesia Used: 4% Lidocaine Solution Depth: Down to and including healthy tissue and in the subcutaneous layer Percentage of wound debrided: 100 Instrument Used: 3mm curette Tissue Removed: Non viable tissue and slough. Severity: Limited To Skin Breakdown Amount of bleeding with debridement: Mild Bleeding Controlled with: Pressure and Compression and gauze Patient tolerated procedure: Patient tolerated procedure well Post-Debridement Measurements and Additional Note: Post-Debridement Measurements/Treatment - Nurse 1 - General Ulcer Assessment Start: 01/28/23 09:51 Freq: Status: Active Protocol: KRANTHI Activity Type Activity Date Activity User E-sign Co-sign Detail Recorded Client Recorded Date Recorded By Document 01/28/23 09:51 [facility] [id number] 01/28/23 10:01 [facility] 01/28/23 09:51 - Today's Visit Information Type of service Follow-up Visit (Physician/MANAGER ANIMATION ) Arrival Mode Wheelchair Transfer Assistance Will Lift Patient Identification Verified (Name & Yes ) Patient Requires Transmission-Based No Precautions Height and Weight Body Mass Index (BMI) 25.9 BMI Classification Overweight Vital Signs Temperature (97.8 F-99.1 F) 96.7 F L Temperature Source Temporal Pulse Rate (60-100) 64 Pulse Location Monitor Respiratory Rate (12-18) 16 Respiratory rate source Observation Oxygen Delivery Method Room Air Blood Pressure (90/60-120/80) 144/67 H Blood Pressure Mean (mm Hg) 92 Source Monitor Position Sitting History Since Last Visit- (Skip if this is Patient's initial visit) Have you changed medications since your No last visit? Any new allergies or adverse reactions No Had a fall/change in ADL's that may No increase risk of falls Signs or symptoms of abuse and/or No neglect since last visit Have you been in the hospital since your No last visit? Has dressing in place as prescribed Yes Has compression in place as prescribed N/A Has offloadiing in place as prescribed N/A Experienced any changes in pain level or No management Left Footwear Slipper Right Footwear Slipper Pain Scale: 0-10 Numeric Is Patient Pain Free? Yes - Nurse 1 - General Ulcer Measurement Start: 01/28/23 09:51 Freq: Status: Active Protocol: Activity Type Activity Date Activity User E-sign Co-sign Detail Recorded Client Recorded Date Recorded By Document 01/28/23 09:51 [facility] [id number] 01/28/23 10:01 [facility] 01/28/23 09:51 Wound Center Nurse 1 #1 Sacral cluster -Combined with other wound No -Current Size (cm) - Length 0.2 -Current Size (cm) - Width 0.9 -Current Size (cm) - Depth 0.3 -Total Square Cm 0.18 -Date of Last Picture (Recall this 01/28/23 field) -Photo Taken Yes -Epithelialization Small 1-33% -Tunneling No -Undermining/Tunneling No -Circular Undermining No -Exudate Amt Small -Exudate Type Serous -Wound Margin Distinct, Outline Attached -Granulation Amt Large (67-100%) -Granulation Quality Red -Slough/Fibrin Yes -Necrosis Amt Small (1-33%) -Necrotic Tissue Type Adherent Slough -Texture (Laney-wound Skin Appearance) Assessed, Scarring -Moisture (Laney-wound Skin Appearance) Assessed -Color (Laney-wound Skin Appearance) Assessed -Temperature (Laney-wound Skin No Abnormality Appearance) (Pt Warm) -Tenderness on Palpation (Laney-wound No Skin Appearance) -Ulcer Cleansing Soap and Water -Foul Odor after Cleansing No -Anesthetic Used 5% Lidocaine Gel - Nurse 2 - General Ulcer CM Notes Start: 01/28/23 09:51 Freq: Status: Active Protocol: Activity Type Activity Date Activity User E-sign Co-sign Detail Recorded Client Recorded Date Recorded By Document 01/28/23 10:20 [facility] [id number] 01/28/23 10:23 [facility] 01/28/23 10:20 Wound Center Nurse 2 -Time 10:20 -Correct Patient Yes -Correct Side, Site, Position Yes -Correct Procedure Yes -Procedure Performed Yes -Type of Procedure Debridement -Clinical Debridement Subcutaneous -Tissue Removed Subcutaneous -Post Debridement (cm) - Length 0.4 -Post Debridement (cm) - Width 1.5 -Post Debridement (cm) - Depth 0.2 -Total Square (Post) (cm) 0.60 -Area of Debridement (cm) - Length 0.4 -Area of Debridement (cm) - Width 1.5 -Total Square (Area) (cm) 0.60 -Tunneling No -Undermining/Tunneling No -Circular Undermining No -Wound/Ulcer Outcome Not Healed -Ulcer Cleansing Rinsed/ Irrigated with Saline -Foul Odor after Cleansing No -Bioengineered Tissue No -Bleeding Controlled with Pressure -Treatment Response Procedure Tolerated Well -Offloading No -Pressure Reduction Wheelchair cushion, Mattress overlay -Debridement - Subq, 1st 20sq cm Yes Pain Scale: 0-10 Numeric Is Patient Pain Free? Yes - Nurse 3 - General Ulcer D/C NN Start: 01/28/23 09:51 Freq: Status: Active Protocol: Activity Type Activity Date Activity User E-sign Co-sign Detail Recorded Client Recorded Date Recorded By Document 01/28/23 10:46 [id number] 01/28/23 10:47 [facility] 01/28/23 10:46 Wound Care Center Nurse 3 #1 Sacral cluster -Ulcer Cleansing Rinsed/ Irrigated with Saline -Primary Dressing Applied Mepilex Border -Other Dressing aquacel ag/ bordered adhesive -Mepilex Border 1 Treatment Response Procedure Tolerated Well Pain Scale: 0-10 Numeric Is Patient Pain Free? Yes - Visit Discharge Discharge Condition Stable Ambulatory Status Wheelchair Transportation Private Auto Medication Reconcilliation completed & No provided to patient/care provider Clinical Summary of Care Provided Yes Assessment/Plan Assessment/Plan (1) Pressure ulcer of sacral region, stage 4: CODE(S): L89.154 - Pressure ulcer of sacral region, stage 4 (2) Paraplegia: CODE(S): G82.20 - Paraplegia, unspecified (3) Osteomyelitis of pelvis: CODE(S): M86.9 - Osteomyelitis, unspecified (4) Large B-cell lymphoma: CODE(S): C85.10 - Unspecified B-cell lymphoma, unspecified site PLAN: Plan Wound Care - Moistened Aquacel-Ag covered with gauze daily. Place adaptic over skin tear until healed. Laney wound of the sacral ulcer is clear using the A&D ointment to the laney wound. Wound culture 10/07/21 while in the hospital positive for Klebsiella oxytoca, Staphylococcus haemolyticus, and Corynebacterium striatum. Treated with Zosyn and Vanc while hospitalized. Completed Augmentin. Wound culture from 09/12/21 was positive for Staphylococcus haemolyticus and Enterococcus faecalis. Completed Augmentin and Doxycycline and a probiotic. Encourage increased protein intake to help with wound healing. Her family does a really nice job with her wound care. They turn her every 2 hours. Follow up 4 weeks. Call or come in sooner if have any questions or concerns.
== END 2023-02-17 23:59 | disposition home or self-care (01) ==
LOC: WC 09:46
PROVIDERS: PCP Student in an Organized Health Care Education/Training Program; Visit Provider Nurse Practitioner Family
DX: L89.154 Pressure ulcer of sacral region, stage 4 (principal); G82.20 Paraplegia, unspecified; C85.10 Unspecified B-cell lymphoma, unspecified site; Z92.3 Personal history of irradiation; Z86.16 Personal history of COVID-19
CPT/HCPCS: 11042

== ENCOUNTER → 2023-02-11 | Outpatient (CLI) | payer SELFPAY, OTHER ==
--- NOTE | 2023-02-11 13:40 | US_ITS ---
STUDY: RENAL ULTRASOUND - COMPLETE REASON FOR EXAM: Female, 77 years old. Urinary retention. History of Gutierrez catheter. Patient is paraplegic. TECHNIQUE: Ultrasound evaluation of the kidneys was performed with real-time and static scruggs-scale imaging. COMPARISON: None. FINDINGS: RIGHT KIDNEY: Normal location of the right kidney, which is normal in size. The right kidney measures 10.6 x 5.4 cm x 4 cm. There is a normal cortex of the right kidney. The renal cortex measures 1.2 cm. There is no right renal mass or cyst. There are no right renal calculi. There is no right hydronephrosis. DISTAL RIGHT URETER: There is non-visualization of the distal right ureter. There is no demonstrated right ureterovesical junction calculus. There is a visualized right ureteral jet. LEFT KIDNEY: Normal location of the left kidney, which is normal in size. The left kidney measures 11.1 cm x 4.7 cm x 4.7 cm. There is a normal cortex of the left kidney. The renal cortex measures 1.2 cm. There is no left renal mass or cyst. There are no left renal calculi. There is no left hydronephrosis. DISTAL LEFT URETER: There is non-visualization of the distal left ureter. There is no demonstrated left ureterovesical junction calculus. There is a visualized left ureteral jet. BLADDER: The distended urinary bladder has a volume of 228 ml. The empty urinary bladder has a volume of 0 ml. There is a normal wall thickness of the distended urinary bladder. There is no demonstrated mass within the urinary bladder. There are no demonstrated bladder calculi. US/Kidney and Bladder IMPRESSION: Normal ultrasound of the kidneys and urinary bladder. Electronically Signed: Nathan Cotton MD at 12:38 EDT ,
== END | disposition home or self-care (01) ==
PROVIDERS: PCP Student in an Organized Health Care Education/Training Program; Referring Provider Urology; Visit Provider Urology
DX: R33.9 Retention of urine, unspecified (principal)
CPT/HCPCS: 76770

== ENCOUNTER 2023-02-25 09:57 | Outpatient (RCR) | payer OTHER, SELFPAY ==
[2023-02-18 00:07] VITALS: BP 144/67; PULSE 64; RESP 16; TEMP 35.9; BMI 25.9
[2023-02-25 09:59] VITALS: BP 158/63; PULSE 58; RESP 16; TEMP 36.4; BMI 25.9
--- NOTE | 2023-02-25 13:33 | PCM.WC.PN ---
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 She had progressive paraplegia. She went to TCU for acute rehab for this progressive paraplegia. During that time she had worsening sacral pressure sore with skin necrosis. Surgery 05/15/21 - Excision necrotic sacral pressure sore, Stage IV, with partial ostectomy for osteomyelitis. Pathology from surgery on 05/15/21 of bone showed acute osteomyelitis. Operative tissue culture positive for Escherichia coli, Klebsiella, Vanc. Resist. E. gallinarum, Vanc. Resist. E. faecalis. Operative bone culture positive for Escherichia coli, Vanc. Resist. E. faecalis, Vanc. Resist. E. gallinarum. She was on Meropenem, Vancomycin has been stopped and Linezolid started. ID is managing. Radiation from 05/17/21 - 06/12/21 18 treatments to T4-T7 area including paraspinal region. 06/06/21- Laparoscopic sigmoid colectomy with creation of end colostomy for fecal diversion. Was in TCU 06/08/21-07/20/21. Patient had a recent hospitalization on 01/19/2022. She states she had C. difficile. She was discharged on 01/22/2022. While she was hospitalized she developed a new ulcer on her right ischium. Has dry scabbing. Wound Care - Moistened Aquacel-Ag covered with gauze dressing daily. Right ischium ulcer remains healed. The left ischial is healed. Place A&D ointment or Aquaphor for a barrier cream to laney wound of sacral ulcer to moisturize and protect the skin. Stop using calmaceptine, because it is drying out the laney wound. She denies any nausea and vomiting. She states that her appetite is improving and she is drinking extra protein shakes. Progress of Wound: Sacral ulcer is slightly smaller. Laney wound is clear. Her family does a good job with her skin care and turning her every 2 hours. Objective Data Objective Data Vital Signs: Vital Signs Temp Pulse Resp BP O2 Del Method 97.6 F L 58 L 16 158/63 H Room Air 02/25/23 09:59 02/25/23 09:59 02/25/23 09:59 02/25/23 09:59 02/25/23 09:59 Oxygen Delivery Method Room Air Weight: 155 lb 11.464 oz Body Mass Index (BMI) 25.9 Charges/Coding Procedures Integumentary 111xxx-113xx: 12533 Casie subq tissue 20 sq cm/< Debridement Note Debridement Note Wound debrided: Sacral ulcer Wound Grade/Stage: Stage IV Type of Debridement: Excisional debridement Anesthesia Used: 4% Lidocaine Solution Depth: Down to and including healthy tissue and in the subcutaneous layer Percentage of wound debrided: 100 Instrument Used: 3mm curette Tissue Removed: Non viable tissue and slough. Severity: Limited To Skin Breakdown Amount of bleeding with debridement: Mild Bleeding Controlled with: Pressure and Compression and gauze Patient tolerated procedure: Patient tolerated procedure well Post-Debridement Measurements and Additional Note: Post-Debridement Measurements/Treatment - Nurse 1 - General Ulcer Assessment Start: 02/25/23 09:58 Freq: Status: Active Protocol: KRANTHI Activity Type Activity Date Activity User E-sign Co-sign Detail Recorded Client Recorded Date Recorded By Document 02/25/23 09:59 [facility] [id number] 02/25/23 10:06 [facility] 02/25/23 09:59 - Today's Visit Information Type of service Follow-up Visit (Physician/ENGINEER BOOSTER AND EXHAUSTER ) Arrival Mode Wheelchair Transfer Assistance Will Lift Accompanied by Patient Identification Verified (Name & Yes ) Patient Requires Transmission-Based No Precautions Height and Weight Body Mass Index (BMI) 25.9 BMI Classification Overweight Vital Signs Temperature (97.8 F-99.1 F) 97.6 F L Temperature Source Temporal Pulse Rate (60-100) 58 L Pulse Location Monitor Respiratory Rate (12-18) 16 Respiratory rate source Observation Oxygen Delivery Method Room Air Blood Pressure (90/60-120/80) 158/63 H Blood Pressure Mean (mm Hg) 94 Source Monitor Position Sitting Blood Pressure Location Left Arm History Since Last Visit- (Skip if this is Patient's initial visit) Have you changed medications since your No last visit? Any new allergies or adverse reactions No Had a fall/change in ADL's that may No increase risk of falls Signs or symptoms of abuse and/or No neglect since last visit Have you been in the hospital since your No last visit? Has dressing in place as prescribed Yes Has compression in place as prescribed N/A Has offloadiing in place as prescribed N/A Experienced any changes in pain level or No management Left Footwear Slipper Right Footwear Slipper Pain Scale: 0-10 Numeric Is Patient Pain Free? Yes - Nurse 1 - General Ulcer Measurement Start: 02/25/23 09:58 Freq: Status: Active Protocol: Activity Type Activity Date Activity User E-sign Co-sign Detail Recorded Client Recorded Date Recorded By Document 02/25/23 09:59 [facility] [id number] 02/25/23 10:06 [facility] 02/25/23 09:59 Wound Center Nurse 1 #1 Sacral cluster -Combined with other wound No -Current Size (cm) - Length 0.1 -Current Size (cm) - Width 0.1 -Current Size (cm) - Depth 0.1 -Total Square Cm 0.01 -Date of Last Picture (Recall this 02/25/23 field) -Photo Taken Yes -Epithelialization Small 1-33% -Tunneling No -Undermining/Tunneling No -Circular Undermining No -Exudate Amt None Present -Wound Margin Thickened & Rolled Under -Granulation Amt Large (67-100%) -Granulation Quality [place] -Slough/Fibrin No -Necrosis Amt None Present (0 %) -Texture (Laney-wound Skin Appearance) Assessed, Scarring -Moisture (Laney-wound Skin Appearance) Assessed -Color (Laney-wound Skin Appearance) Assessed -Temperature (Laney-wound Skin No Abnormality Appearance) (Pt Warm) -Tenderness on Palpation (Laney-wound No Skin Appearance) -Ulcer Cleansing Soap and Water -Foul Odor after Cleansing No -Anesthetic Used 5% Lidocaine Gel - Nurse 2 - General Ulcer CM Notes Start: 02/25/23 09:58 Freq: Status: Active Protocol: Activity Type Activity Date Activity User E-sign Co-sign Detail Recorded Client Recorded Date Recorded By Document 02/25/23 10:25 [id number] 02/25/23 10:27 02/25/23 10:25 Wound Center Nurse 2 -Time 10:27 -Correct Patient Yes -Correct Side, Site, Position Yes -Correct Procedure Yes -Procedure Performed Yes -Type of Procedure Debridement -Clinical Debridement Subcutaneous -Tissue Removed Subcutaneous -Post Debridement (cm) - Length 1.0 -Post Debridement (cm) - Width 0.8 -Post Debridement (cm) - Depth 0.2 -Total Square (Post) (cm) 0.80 -Area of Debridement (cm) - Length 1.0 -Area of Debridement (cm) - Width 0.8 -Total Square (Area) (cm) 0.80 -Tunneling No -Undermining/Tunneling No -Circular Undermining No -Wound/Ulcer Outcome Not Healed -Ulcer Cleansing Rinsed/ Irrigated with Saline -Foul Odor after Cleansing No -Bioengineered Tissue No -Bleeding Controlled with Pressure -Treatment Response Procedure Tolerated Well -Offloading No -Pressure Reduction Wheelchair cushion -Debridement - Subq, 1st 20sq cm Yes Pain Scale: 0-10 Numeric Is Patient Pain Free? Yes - Nurse 3 - General Ulcer D/C NN Start: 02/25/23 09:58 Freq: Status: Active Protocol: Activity Type Activity Date Activity User E-sign Co-sign Detail Recorded Client Recorded Date Recorded By Document 02/25/23 10:34 [facility] [id number] 02/25/23 10:35 [facility] 02/25/23 10:34 Wound Care Center Nurse 3 #1 Sacral cluster -Ulcer Cleansing Rinsed/ Irrigated with Saline -Foul Odor after Cleansing No -Primary Dressing Applied Aquacel AG 4x4 -Other Dressing per dl -Primary Dressing Covered/Secured with Dry Gauze, Secured with Tape -Aquacel AG 4x4 1 Treatment Response Procedure Tolerated Well Pain Scale: 0-10 Numeric Is Patient Pain Free? Yes - Visit Discharge Discharge Condition Stable Ambulatory Status Wheelchair Transportation Private Auto Accompanied by val and Facility Type Home Health Assessment/Plan Assessment/Plan (1) Pressure ulcer of sacral region, stage 4: CODE(S): L89.154 - Pressure ulcer of sacral region, stage 4 (2) Paraplegia: CODE(S): G82.20 - Paraplegia, unspecified (3) Osteomyelitis of pelvis: CODE(S): M86.9 - Osteomyelitis, unspecified (4) Large B-cell lymphoma: CODE(S): C85.10 - Unspecified B-cell lymphoma, unspecified site PLAN: Plan Wound Care - Moistened Aquacel-Ag covered with gauze daily. Laney wound is clear. Wound culture 10/07/21 while in the hospital positive for Klebsiella oxytoca, Staphylococcus haemolyticus, and Corynebacterium striatum. Treated with Zosyn and Vanc while hospitalized. Completed Augmentin. Wound culture from 09/12/21 was positive for Staphylococcus haemolyticus and Enterococcus faecalis. Completed Augmentin and Doxycycline and a probiotic. Encourage increased protein intake to help with wound healing. Her family does a really nice job with her wound care. They turn her every 2 hours. Follow up 4 weeks. Call or come in sooner if have any questions or concerns.
== END 2023-03-20 23:59 | disposition home or self-care (01) ==
LOC: WC 09:57
PROVIDERS: PCP Student in an Organized Health Care Education/Training Program; Visit Provider Nurse Practitioner Family
DX: L89.154 Pressure ulcer of sacral region, stage 4 (principal); G82.20 Paraplegia, unspecified; C85.10 Unspecified B-cell lymphoma, unspecified site; M86.9 Osteomyelitis, unspecified; Z92.3 Personal history of irradiation
CPT/HCPCS: 11042

== ENCOUNTER → 2023-03-19 | Outpatient (CLI) | payer SELFPAY, OTHER ==
--- NOTE | 2023-03-19 12:52 | CT_ITS ---
STUDY: CT BRAIN WITH AND WITHOUT CONTRAST REASON FOR EXAM: Female, 77 years old. left acoustic neuroma; history of B cell lymphoma -- due to dyscomfort, patient didn''t want further MRI RADIATION DOSAGE (If Supplied By Facility): CTDIvol = ( 44.99 ) mGy, DLP = ( 1547.23 ) mGycm TECHNIQUE: Transaxial CT imaging of the brain was performed pre and post contrast administration. The examination was performed with intravenous administration of 100 ML ISOVUE 370. Individualized dose optimization techniques were used for this CT. COMPARISON: MRI February 28, 2022 FINDINGS: Normal soft tissue structures. Normal calvarium. Calcific plaquing of the cavernous carotids. Mild atrophy and periventricular white matter changes.. Normal basal ganglia and thalami. Normal brainstem. Normal cerebellum. There is no intracranial hemorrhage. There are no findings of an acute ischemic infarction. Mild mucosal thickening of the ethmoid air cells.. Tiny enhancing lesion in the left cerebellopontine angle cistern extending into the internal auditory canal consistent with known acoustic neuroma CT/Brain/Head W/WO Contrast IMPRESSION: Findings consistent with tiny left acoustic neuroma not changed appreciably in size since prior study given differences in imaging techniques.. Electronically Signed: Unruly Cottrell MD at 18:15 EDT ,
[2023-03-19 13:23] LABS: CREATININE FINGERSTICK < 0.9 mg/dL (0.55-1.02); EGFR FINGERSTICK > 60.0000 mL/min (>60)
== END | disposition home or self-care (01) ==
PROVIDERS: PCP Student in an Organized Health Care Education/Training Program; Referring Provider Psychiatry & Neurology Neurology; Visit Provider Psychiatry & Neurology Neurology
DX: C85.10 Unspecified B-cell lymphoma, unspecified site (principal); D33.3 Benign neoplasm of cranial nerves; G31.84 Mild cognitive impairment of uncertain or unknown etiology
CPT/HCPCS: 70470; Q9967

== ENCOUNTER 2023-04-08 10:00 | Outpatient (RCR) | payer OTHER, SELFPAY ==
[2023-03-21 00:13] VITALS: BP 158/63; PULSE 58; RESP 16; TEMP 36.4; BMI 25.9
[2023-03-25 09:57] VITALS: BP 138/64; PULSE 65; RESP 18; TEMP 36.9; BMI 25.9
--- NOTE | 2023-03-25 13:11 | PN.PCM_ITS ---
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 She had progressive paraplegia. She went to TCU for acute rehab for this progressive paraplegia. During that time she had worsening sacral pressure sore with skin necrosis. Surgery 05/15/21 - Excision necrotic sacral pressure sore, Stage IV, with partial ostectomy for osteomyelitis. Pathology from surgery on 05/15/21 of bone showed acute osteomyelitis. Operative tissue culture positive for Escherichia coli, Klebsiella, Vanc. Resist. E. gallinarum, Vanc. Resist. E. faecalis. Operative bone culture positive for Escherichia coli, Vanc. Resist. E. faecalis, Vanc. Resist. E. gallinarum. She was on Meropenem, Vancomycin has been stopped and Linezolid started. ID is managing. Radiation from 05/17/21 - 06/12/21 18 treatments to T4-T7 area including paraspinal region. 06/06/21- Laparoscopic sigmoid colectomy with creation of end colostomy for fecal diversion. Was in TCU 06/08/21-07/20/21. Patient had a recent hospitalization on 01/19/2022. She states she had C. difficile. She was discharged on 01/22/2022. While she was hospitalized she developed a new ulcer on her right ischium. Has dry scabbing. Wound Care - Dakins 0.25 % moistened gauze covered with ABD daily to sacral ulcer. Place A&D ointment or Aquaphor for a barrier cream to laney wound of sacral ulcer to moisturize and protect the skin. She denies any nausea and vomiting. She states that her appetite is improving and she is drinking extra protein shakes. Progress of Wound: Sacral ulcer is significantly larger today. Her states that it started to get larger over the past week or so. Laney wound is clear. Objective Data Objective Data Vital Signs: Vital Signs Temp Pulse Resp BP 98.4 F 65 18 138/64 H 03/25/23 09:57 03/25/23 09:57 03/25/23 09:57 03/25/23 09:57 Weight: 155 lb 11.464 oz Body Mass Index (BMI) 25.9 Charges/Coding Procedures Integumentary 111xxx-113xx: 45328 Casie subq tissue 20 sq cm/< Debridement Note Debridement Note Wound debrided: Sacral ulcer Wound Grade/Stage: Stage IV Type of Debridement: Excisional debridement Anesthesia Used: 4% Lidocaine Solution Depth: Down to and including healthy tissue and in the subcutaneous layer Percentage of wound debrided: 100 Instrument Used: 3mm curette Tissue Removed: Non viable tissue and slough. Severity: Limited To Skin Breakdown Amount of bleeding with debridement: Mild Bleeding Controlled with: Pressure and Compression and gauze Patient tolerated procedure: Patient tolerated procedure well Post-Debridement Measurements and Additional Note: Post-Debridement Measurements/Treatment - Nurse 1 - General Ulcer Assessment Start: 03/25/23 09:54 Freq: Status: Active Protocol: KRANTHI Activity Type Activity Date Activity User E-sign Co-sign Detail Recorded Client Recorded Date Recorded By Document 03/25/23 09:57 ALAN [id number] 03/25/23 10:01 ALAN 03/25/23 09:57 WC - Today's Visit Information Type of service Follow-up Visit (Physician/HVAC SPECIALIST ) Arrival Mode Wheelchair Transfer Assistance Will Lift Patient Identification Verified (Name & Yes ) Patient Requires Transmission-Based No Precautions Height and Weight Body Mass Index (BMI) 25.9 BMI Classification Overweight Vital Signs Temperature (97.8 F-99.1 F) 98.4 F Temperature Source Temporal Pulse Rate (60-100) 65 Pulse Location Monitor Respiratory Rate (12-18) 18 Respiratory rate source Observation Blood Pressure (90/60-120/80) 138/64 H Blood Pressure Mean (mm Hg) 88 Source Monitor History Since Last Visit- (Skip if this is Patient's initial visit) Have you changed medications since your No last visit? Any new allergies or adverse reactions No Had a fall/change in ADL's that may No increase risk of falls Signs or symptoms of abuse and/or No neglect since last visit Have you been in the hospital since your No last visit? Has dressing in place as prescribed Yes Has compression in place as prescribed N/A Has offloadiing in place as prescribed Yes Experienced any changes in pain level or No management Pain Scale: 0-10 Numeric Is Patient Pain Free? Yes - Nurse 1 - General Ulcer Measurement Start: 03/25/23 09:54 Freq: Status: Active Protocol: Activity Type Activity Date Activity User E-sign Co-sign Detail Recorded Client Recorded Date Recorded By Document 03/25/23 09:57 ND [id number] 03/25/23 10:01 ALAN 03/25/23 09:57 Wound Center Nurse 1 #1 Sacral cluster -Current Size (cm) - Length 1.4 -Current Size (cm) - Width 1.3 -Current Size (cm) - Depth 0.6 -Total Square Cm 1.82 -Photo Taken Yes -Exudate Amt Medium -Exudate Type Yellow/Green -Wound Margin Thickened -Granulation Amt Large (67-100%) -Granulation Quality [place] -Necrosis Amt Small (1-33%) -Necrotic Tissue Type Adherent Slough -Structure Exposed N/A -Texture (Laney-wound Skin Appearance) Scarring -Moisture (Laney-wound Skin Appearance) No Abnormality -Color (Laney-wound Skin Appearance) Assessed -Temperature (Laney-wound Skin No Abnormality Appearance) (Pt Warm) -Tenderness on Palpation (Laney-wound No Skin Appearance) -Ulcer Cleansing Soap and Water -Foul Odor after Cleansing No -Anesthetic Used 5% Lidocaine Gel WC - Nurse 2 - General Ulcer CM Notes Start: 03/25/23 09:54 Freq: Status: Active Protocol: Activity Type Activity Date Activity User E-sign Co-sign Detail Recorded Client Recorded Date Recorded By Document 03/25/23 10:22 [id number] 03/25/23 10:27 03/25/23 10:22 Wound Center Nurse 2 -Time 10:22 -Correct Patient Yes -Correct Side, Site, Position Yes -Correct Procedure Yes -Procedure Performed Yes -Type of Procedure Debridement -Clinical Debridement Subcutaneous -Tissue Removed Subcutaneous -Post Debridement (cm) - Length 1.0 -Post Debridement (cm) - Width 1.7 -Post Debridement (cm) - Depth 0.5 -Total Square (Post) (cm) 1.70 -Area of Debridement (cm) - Length 1.0 -Area of Debridement (cm) - Width 1.7 -Total Square (Area) (cm) 1.70 -Tunneling Yes -Tunneling Position (O'clock) 12 -Tunneling Distance (cm) 0.7 -Undermining/Tunneling No -Circular Undermining No -Wound/Ulcer Outcome Not Healed -Ulcer Cleansing Rinsed/ Irrigated with Saline -Foul Odor after Cleansing No -Bioengineered Tissue No -Bleeding Controlled with Pressure -Treatment Response Procedure Tolerated Well -Offloading No -Assistive Device(s) Wheelchair -Pressure Reduction Wheelchair cushion -Debridement - Subq, 1st 20sq cm Yes Pain Scale: 0-10 Numeric Is Patient Pain Free? Yes - Nurse 3 - General Ulcer D/C NN Start: 03/25/23 09:54 Freq: Status: Active Protocol: Activity Type Activity Date Activity User E-sign Co-sign Detail Recorded Client Recorded Date Recorded By Document 03/25/23 10:37 DL [id number] 03/25/23 10:38 DL Edit Result 03/25/23 10:37 DL (1) [id number] 03/25/23 11:21 DL (1) #1 Sacral cluster - Primary Dressing Applied Aquacel AG 4x4 => - Aquacel AG 4x4 1 => 03/25/23 10:37 Wound Care Center Nurse 3 #1 Sacral cluster -Ulcer Cleansing Rinsed/ Irrigated with Saline -Foul Odor after Cleansing No -Primary Dressing Covered/Secured with Dry Gauze, Secured with Tape Treatment Response Procedure Tolerated Well Pain Scale: 0-10 Numeric Is Patient Pain Free? Yes - Visit Discharge Discharge Condition Stable Ambulatory Status Wheelchair Transportation Private [facility] Facility Type Home Health Orders Sent Yes Assessment/Plan Assessment/Plan (1) Pressure ulcer of sacral region, stage 4: CODE(S): L89.154 - Pressure ulcer of sacral region, stage 4 (2) Paraplegia: CODE(S): G82.20 - Paraplegia, unspecified (3) Osteomyelitis of pelvis: CODE(S): M86.9 - Osteomyelitis, unspecified (4) Large B-cell lymphoma: CODE(S): C85.10 - Unspecified B-cell lymphoma, unspecified site PLAN: Plan Wound Care - Dakins 0.25 % moistened gauze covered with ABD daily. Laney wound is clear. Continue barrier cream to protect laney wound. A wound culture was obtained today, 03/25/23.? A positive culture will necessitate antibiotic therapy. Wound culture 10/07/21 while in the hospital positive for Klebsiella oxytoca, Staphylococcus haemolyticus, and Corynebacterium striatum. Treated with Zosyn and Vanc while hospitalized. Completed Augmentin. Wound culture from 09/12/21 was positive for Staphylococcus haemolyticus and Enterococcus faecalis. Completed Augmentin and Doxycycline and a probiotic. Encourage increased protein intake to help with wound healing. Her family does a really nice job with her wound care. They turn her every 2 hours. Follow up 2 weeks, since there was a recent change in her ulcer. Call or come in sooner if have any questions or concerns.
--- NOTE | 2023-03-28 13:32 | WC ---
Left a message with patient on her voicemail regarding a new prescription being called into [facility] per Barbra Esparza CONTRACT ATTORNEY for positive wound cultures. Asked if someone could call back letting us know they received the message.
--- NOTE | 2023-03-29 12:29 | WC ---
Left message on patient's voicemail to start using 0.25% daily dakin's slightly moistened gauze to ulcer and cover with DSD rather than use silver dressing.
[2023-04-08 10:07] VITALS: BP 137/69; PULSE 61; RESP 18; TEMP 36.1; BMI 25.9
--- NOTE | 2023-04-08 11:04 | PN.PCM_ITS ---
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 She had progressive paraplegia. She went to TCU for acute rehab for this progressive paraplegia. During that time she had worsening sacral pressure sore with skin necrosis. Surgery 05/15/21 - Excision necrotic sacral pressure sore, Stage IV, with partial ostectomy for osteomyelitis. Pathology from surgery on 05/15/21 of bone showed acute osteomyelitis. Operative tissue culture positive for Escherichia coli, Klebsiella, Vanc. Resist. E. gallinarum, Vanc. Resist. E. faecalis. Operative bone culture positive for Escherichia coli, Vanc. Resist. E. faecalis, Vanc. Resist. E. gallinarum. She was on Meropenem, Vancomycin has been stopped and Linezolid started. ID is managing. Radiation from 05/17/21 - 06/12/21 18 treatments to T4-T7 area including paraspinal region. 06/06/21- Laparoscopic sigmoid colectomy with creation of end colostomy for fecal diversion. Was in TCU 06/08/21-07/20/21. Patient had a hospitalization on 01/19/2022. She states she had C. difficile. She was discharged on 01/22/2022. While she was hospitalized she developed a new ulcer on her right ischium. Has dry scabbing. Wound culture 03/25/23 positive for Klebsiella pneumoniae, Corynebacterium species, Corynebacterium striatum, Enterococcus faecalis, Staphylococcus hominis hominis, Streptococcus canis, and Staphylococcus haemolyticus. She is being treated with Augmentin. Wound Care - Dakins 0.25 % moistened gauze covered with ABD daily to sacral ulcer. Place A&D ointment or Aquaphor for a barrier cream to laney wound of sacral ulcer to moisturize and protect the skin. She denies any nausea and vomiting. She states that her appetite is improving and she is drinking extra protein shakes. Progress of Wound: Sacral ulcer is stable, the ulcer bed is pink. She is tolerating the Augmentin well for her positive cultures. Objective Data Objective Data Vital Signs: Vital Signs Temp Pulse Resp BP 97 F L 61 18 137/69 H 04/08/23 10:07 04/08/23 10:07 04/08/23 10:07 04/08/23 10:07 Weight: 155 lb 11.464 oz Body Mass Index (BMI) 25.9 Lab / Micro Data Micro: Microbiology 03/25/23 Unknown Wound Abcess - Sacral Gram Stain - Final 03/25/23 Unknown Wound Abcess - Sacral Wound Culture - Final Klebsiella pneumoniae sp pneum Corynebacterium species Corynebacterium striatum Enterococcus faecalis Staphylococcus hominis hominis Streptococcus canis Staphylococcus haemolyticus 03/25/23 Unknown Wound Abcess - Sacral Anaerobic Culture - Final No anaerobic bacteria isolated. Charges/Coding Procedures Integumentary 111xxx-113xx: 10160 Casie subq tissue 20 sq cm/< Debridement Note Debridement Note Wound debrided: Sacral ulcer Type of Debridement: Excisional debridement Anesthesia Used: 4% Lidocaine Solution Depth: Down to and including healthy tissue and in the subcutaneous layer Percentage of wound debrided: 100 Instrument Used: 5mm curette Tissue Removed: Non viable tissue and slough. Severity: Fat Layer Exposed Amount of bleeding with debridement: Mild Bleeding Controlled with: Pressure and Compression and gauze Patient tolerated procedure: Patient tolerated procedure well Post-Debridement Measurements and Additional Note: Post-Debridement Measurements/Treatment WC - Nurse 1 - General Ulcer Assessment Start: 03/25/23 09:54 Freq: Status: Active Protocol: KRANTHI Activity Type Activity Date Activity User E-sign Co-sign Detail Recorded Client Recorded Date Recorded By Document 03/25/23 09:57 AK [id number] 03/25/23 10:01 AK Document 04/08/23 10:07 DL [id number] 04/08/23 10:14 DL 03/25/23 04/08/23 09:57 10:07 WC - Today's Visit Information Type of service Follow-up Visit Follow-up Visit (Physician/CLEAN ROOM ASSEMBLER (Physician/CLEAN ROOM ASSEMBLER ) ) Arrival Mode Wheelchair Stretcher Transfer Assistance Will Lift Will Lift Patient Identification Verified (Name & Yes Yes ) Patient Requires Transmission-Based No No Precautions Height and Weight Body Mass Index (BMI) 25.9 25.9 BMI Classification Overweight Overweight Vital Signs Temperature (97.8 F-99.1 F) 98.4 F 97 F L Temperature Source Temporal Temporal Pulse Rate (60-100) 65 61 Pulse Location Monitor Monitor Respiratory Rate (12-18) 18 18 Respiratory rate source Observation Observation Blood Pressure (90/60-120/80) 138/64 H 137/69 H Blood Pressure Mean (mm Hg) 88 91 Source Monitor Monitor History Since Last Visit- (Skip if this is Patient's initial visit) Have you changed medications since your No No last visit? Any new allergies or adverse reactions No No Had a fall/change in ADL's that may No No increase risk of falls Signs or symptoms of abuse and/or No No neglect since last visit Have you been in the hospital since your No No last visit? Has dressing in place as prescribed Yes Yes Has compression in place as prescribed N/A N/A Has offloadiing in place as prescribed Yes Yes Experienced any changes in pain level or No No management Pain Scale: 0-10 Numeric Is Patient Pain Free? Yes Yes WC - Nurse 1 - General Ulcer Measurement Start: 03/25/23 09:54 Freq: Status: Active Protocol: Activity Type Activity Date Activity User E-sign Co-sign Detail Recorded Client Recorded Date Recorded By Document 03/25/23 09:57 AK [id number] 03/25/23 10:01 AK Document 04/08/23 10:07 DL [id number] 04/08/23 10:14 DL 03/25/23 04/08/23 09:57 10:07 Wound Center Nurse 1 #1 Sacral cluster -Current Size (cm) - Length 1.4 1.8 -Current Size (cm) - Width 1.3 1 -Current Size (cm) - Depth 0.6 0.4 -Total Square Cm 1.82 1.8 -Photo Taken Yes -Exudate Amt Medium Small -Exudate Type Yellow/Green Serosanguineous -Wound Margin Thickened Thickened -Granulation Amt Large (67-100%) Small (1-33%) -Granulation Quality [place] -Necrosis Amt Small (1-33%) Small (1-33%) -Necrotic Tissue Type Adherent Slough Adherent Slough -Structure Exposed N/A N/A -Texture (Laney-wound Skin Appearance) Scarring Scarring -Moisture (Laney-wound Skin Appearance) No Abnormality Maceration -Color (Laney-wound Skin Appearance) Assessed No Abnormality -Temperature (Laney-wound Skin No Abnormality No Abnormality Appearance) (Pt Warm) (Pt Warm) -Tenderness on Palpation (Laney-wound No Skin Appearance) -Ulcer Cleansing Soap and Water Rinsed/ Irrigated with Saline -Foul Odor after Cleansing No No -Anesthetic Used 5% Lidocaine 5% Lidocaine Gel Gel WC - Nurse 2 - General Ulcer CM Notes Start: 03/25/23 09:54 Freq: Status: Active Protocol: Activity Type Activity Date Activity User E-sign Co-sign Detail Recorded Client Recorded Date Recorded By Document 03/25/23 10:22 [id number] 03/25/23 10:27 03/25/23 10:22 Wound Center Nurse 2 -Time 10:22 -Correct Patient Yes -Correct Side, Site, Position Yes -Correct Procedure Yes -Procedure Performed Yes -Type of Procedure Debridement -Clinical Debridement Subcutaneous -Tissue Removed Subcutaneous -Post Debridement (cm) - Length 1.0 -Post Debridement (cm) - Width 1.7 -Post Debridement (cm) - Depth 0.5 -Total Square (Post) (cm) 1.70 -Area of Debridement (cm) - Length 1.0 -Area of Debridement (cm) - Width 1.7 -Total Square (Area) (cm) 1.70 -Tunneling Yes -Tunneling Position (O'clock) 12 -Tunneling Distance (cm) 0.7 -Undermining/Tunneling No -Circular Undermining No -Wound/Ulcer Outcome Not Healed -Ulcer Cleansing Rinsed/ Irrigated with Saline -Foul Odor after Cleansing No -Bioengineered Tissue No -Bleeding Controlled with Pressure -Treatment Response Procedure Tolerated Well -Offloading No -Assistive Device(s) Wheelchair -Pressure Reduction Wheelchair cushion -Debridement - Subq, 1st 20sq cm Yes Pain Scale: 0-10 Numeric Is Patient Pain Free? Yes WC - Nurse 3 - General Ulcer D/C NN Start: 03/25/23 09:54 Freq: Status: Active Protocol: Activity Type Activity Date Activity User E-sign Co-sign Detail Recorded Client Recorded Date Recorded By Document 03/25/23 10:37 DL [id number] 03/25/23 10:38 DL Edit Result 03/25/23 10:37 DL (1) [id number] 03/25/23 11:21 DL (1) #1 Sacral cluster - Primary Dressing Applied Aquacel AG 4x4 => - Aquacel AG 4x4 1 => 03/25/23 10:37 Wound Care Center Nurse 3 #1 Sacral cluster -Ulcer Cleansing Rinsed/ Irrigated with Saline -Foul Odor after Cleansing No -Primary Dressing Covered/Secured with Dry Gauze, Secured with Tape Treatment Response Procedure Tolerated Well Pain Scale: 0-10 Numeric Is Patient Pain Free? Yes WC - Visit Discharge Discharge Condition Stable Ambulatory Status Wheelchair Transportation Private Auto Facility Type Home Health Orders Sent Yes Assessment/Plan Assessment/Plan (1) Pressure ulcer of sacral region, stage 4: CODE(S): L89.154 - Pressure ulcer of sacral region, stage 4 (2) Paraplegia: CODE(S): G82.20 - Paraplegia, unspecified (3) Osteomyelitis of pelvis: CODE(S): M86.9 - Osteomyelitis, unspecified (4) Large B-cell lymphoma: CODE(S): C85.10 - Unspecified B-cell lymphoma, unspecified site PLAN: Plan Wound Care - Dakins 0.25 % moistened gauze covered with ABD daily. May alternate the Dakins with Aquacel-Ag covered with gauze, if you would like. Laney wound is clear. Continue barrier cream to protect laney wound. A wound culture was obtained on 03/25/23 which was positive for Klebsiella pneumoniae, Corynebacterium species, Corynebacterium striatum, Enterococcus faecalis, Staphylococcus hominis hominis, Streptococcus canis, and Staphylococcus haemolyticus.? She is being treated with Augmentin.? Wound culture 10/07/21 while in the hospital positive for Klebsiella oxytoca, Staphylococcus haemolyticus, and Corynebacterium striatum. Treated with Zosyn and Vanc while hospitalized. Completed Augmentin. Wound culture from 09/12/21 was positive for Staphylococcus haemolyticus and Enterococcus faecalis. Completed Augmentin and Doxycycline and a probiotic. Encourage increased protein intake to help with wound healing. Her family does a really nice job with her wound care. They turn her every 2 hours. Follow up four weeks, since there was a recent change in her ulcer. Call or come in sooner if have any questions or concerns.
== END 2023-04-19 23:59 | disposition home or self-care (01) ==
LOC: WC 10:00
PROVIDERS: PCP Student in an Organized Health Care Education/Training Program; Visit Provider Nurse Practitioner Family
DX: L89.154 Pressure ulcer of sacral region, stage 4 (principal); G82.20 Paraplegia, unspecified; C85.10 Unspecified B-cell lymphoma, unspecified site; Z92.3 Personal history of irradiation
CPT/HCPCS: 11042; 87070; 87075; 87077; 87186; 87205

== ENCOUNTER 2023-05-06 09:40 | Outpatient (RCR) | payer OTHER, SELFPAY ==
[2023-04-20 00:34] VITALS: BP 137/69; PULSE 61; RESP 18; TEMP 36.1; BMI 25.9
[2023-05-06 09:41] VITALS: BP 182/74; PULSE 76; RESP 16; TEMP 36.4; BMI 25.9
--- NOTE | 2023-05-06 11:17 | PN.PCM_ITS ---
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 She had progressive paraplegia. She went to TCU for acute rehab for this progressive paraplegia. During that time she had worsening sacral pressure sore with skin necrosis. Surgery 05/15/21 - Excision necrotic sacral pressure sore, Stage IV, with partial ostectomy for osteomyelitis. Pathology from surgery on 05/15/21 of bone showed acute osteomyelitis. Operative tissue culture positive for Escherichia coli, Klebsiella, Vanc. Resist. E. gallinarum, Vanc. Resist. E. faecalis. Operative bone culture positive for Escherichia coli, Vanc. Resist. E. faecalis, Vanc. Resist. E. gallinarum. She was on Meropenem, Vancomycin has been stopped and Linezolid started. ID is managing. Radiation from 05/17/21 - 06/12/21 18 treatments to T4-T7 area including paraspinal region. 06/06/21- Laparoscopic sigmoid colectomy with creation of end colostomy for fecal diversion. Was in TCU 06/08/21-07/20/21. Patient had a hospitalization on 01/19/2022. She states she had C. difficile. She was discharged on 01/22/2022. While she was hospitalized she developed a new ulcer on her right ischium. Has dry scabbing. Wound culture 03/25/23 positive for Klebsiella pneumoniae, Corynebacterium species, Corynebacterium striatum, Enterococcus faecalis, Staphylococcus hominis hominis, Streptococcus canis, and Staphylococcus haemolyticus. She is being treated with Augmentin. Wound Care - Dakins 0.25 % moistened gauze covered with ABD daily to sacral ulcer. Place A&D ointment or Aquaphor for a barrier cream to laney wound of sacral ulcer to moisturize and protect the skin. She denies any nausea and vomiting. She states that her appetite is improving and she is drinking extra protein shakes. Progress of Wound: Sacral ulcer is stable, the ulcer bed is pink, there is undermining at 12 o'clock. She completed the Augmentin. Objective Data Objective Data Vital Signs: Vital Signs Temp Pulse Resp BP O2 Del Method 97.6 F L 76 16 182/74 H Room Air 05/06/23 09:41 05/06/23 09:41 05/06/23 09:41 05/06/23 09:41 05/06/23 09:41 Oxygen Delivery Method Room Air Weight: 155 lb 11.464 oz Body Mass Index (BMI) 25.9 Charges/Coding Procedures Integumentary 111xxx-113xx: 49775 Casie subq tissue 20 sq cm/< Debridement Note Debridement Note Wound debrided: Sacral ulcer Type of Debridement: Excisional debridement Anesthesia Used: 4% Lidocaine Solution Depth: Down to and including healthy tissue and in the subcutaneous layer Percentage of wound debrided: 100 Instrument Used: 3mm curette Tissue Removed: Non viable tissue and slough. Severity: Fat Layer Exposed Amount of bleeding with debridement: Mild Bleeding Controlled with: Pressure and Compression and gauze Patient tolerated procedure: Patient tolerated procedure well Post-Debridement Measurements and Additional Note: Post-Debridement Measurements/Treatment - Nurse 1 - General Ulcer Assessment Start: 05/06/23 09:41 Freq: Status: Active Protocol: KRANTHI Activity Type Activity Date Activity User E-sign Co-sign Detail Recorded Client Recorded Date Recorded By Document 05/06/23 09:41 [id number] 05/06/23 09:54 KW 05/06/23 09:41 - Today's Visit Information Type of service Follow-up Visit (Physician/[employer]OPHY ASSEMBLER ) Arrival Mode Wheelchair Transfer Assistance Will Lift Accompanied by family- and daughter Patient Identification Verified (Name & Yes ) Height and Weight Body Mass Index (BMI) 25.9 BMI Classification Overweight Vital Signs Temperature (97.8 F-99.1 F) 97.6 F L Temperature Source Temporal Pulse Rate (60-100) 76 Pulse Location Monitor Respiratory Rate (12-18) 16 Respiratory rate source Observation Oxygen Delivery Method Room Air Blood Pressure (90/60-120/80) 182/74 H Blood Pressure Mean (mm Hg) 110 Source Monitor Position Sitting Blood Pressure Location Left Arm History Since Last Visit- (Skip if this is Patient's initial visit) Have you changed medications since your No last visit? Any new allergies or adverse reactions No Had a fall/change in ADL's that may No increase risk of falls Signs or symptoms of abuse and/or No neglect since last visit Have you been in the hospital since your Yes last visit? Has dressing in place as prescribed No Has compression in place as prescribed N/A Has offloadiing in place as prescribed N/A Experienced any changes in pain level or No management Left Footwear Regular Shoe Right Footwear Regular Shoe Pain Scale: 0-10 Numeric Is Patient Pain Free? Yes - Nurse 1 - General Ulcer Measurement Start: 05/06/23 09:41 Freq: Status: Active Protocol: Activity Type Activity Date Activity User E-sign Co-sign Detail Recorded Client Recorded Date Recorded By Document 05/06/23 09:41 KW [id number] 05/06/23 09:54 KW 05/06/23 09:41 Wound Center Nurse 1 #1 Sacral cluster -Current Size (cm) - Length 1.0 -Current Size (cm) - Width 0.4 -Current Size (cm) - Depth 0.3 -Total Square Cm 0.40 -Photo Taken No -Exudate Amt Small -Exudate Type Serosanguineous -Wound Margin Distinct, Outline Attached -Granulation Amt Large (67-100%) -Granulation Quality Red -Necrosis Amt Small (1-33%) -Necrotic Tissue Type Adherent Slough -Texture (Laney-wound Skin Appearance) Assessed -Moisture (Laney-wound Skin Appearance) Assessed -Color (Laney-wound Skin Appearance) Assessed -Temperature (Laney-wound Skin No Abnormality Appearance) (Pt Warm) -Ulcer Cleansing Rinsed/ Irrigated with Saline -Foul Odor after Cleansing No -Anesthetic Used 5% Lidocaine Gel Lower Limb Edema Present NA - Nurse 2 - General Ulcer CM Notes Start: 05/06/23 09:41 Freq: Status: Active Protocol: Activity Type Activity Date Activity User E-sign Co-sign Detail Recorded Client Recorded Date Recorded By Document 05/06/23 10:37 [id number] 05/06/23 10:38 [id number] 05/06/23 10:37 Wound Center Nurse 2 #1 Sacral cluster -Time 10:37 -Correct Patient Yes -Correct Side, Site, Position Yes -Correct Procedure Yes -Procedure Performed Yes -Type of Procedure Debridement -Clinical Debridement Subcutaneous -Tissue Removed Subcutaneous -Post Debridement (cm) - Length 1.1 -Post Debridement (cm) - Width 0.5 -Post Debridement (cm) - Depth 0.2 -Total Square (Post) (cm) 0.55 -Area of Debridement (cm) - Length 1.1 -Area of Debridement (cm) - Width 0.5 -Total Square (Area) (cm) 0.55 -Tunneling Yes -Tunneling Position (O'clock) 12 -Tunneling Distance (cm) 0.3 -Undermining/Tunneling No -Circular Undermining No -Wound/Ulcer Outcome Not Healed -Ulcer Cleansing Rinsed/ Irrigated with Saline -Foul Odor after Cleansing No -Bioengineered Tissue No -Bleeding Controlled with Pressure -Treatment Response Procedure Tolerated Well -Offloading No -Debridement - Subq, 1st 20sq cm Yes Pain Scale: 0-10 Numeric Is Patient Pain Free? Yes - Nurse 3 - General Ulcer D/C NN Start: 05/06/23 09:41 Freq: Status: Active Protocol: Activity Type Activity Date Activity User E-sign Co-sign Detail Recorded Client Recorded Date Recorded By Document 05/06/23 10:37 [id number] 05/06/23 10:37 05/06/23 10:37 Wound Care Center Nurse 3 #1 Sacral cluster -Ulcer Cleansing Rinsed/ Irrigated with Saline -Foul Odor after Cleansing No -Primary Dressing Applied Mepilex Border -Primary Dressing Covered/Secured with Dry Gauze -Mepilex Border 1 Pain Scale: 0-10 Numeric Is Patient Pain Free? Yes - Visit Discharge Discharge Condition Stable Ambulatory Status Wheelchair Transportation Private Auto Medication Reconcilliation completed & No provided to patient/care provider Clinical Summary of Care Provided Yes Assessment/Plan Assessment/Plan (1) Pressure ulcer of sacral region, stage 4: CODE(S): L89.154 - Pressure ulcer of sacral region, stage 4 (2) Paraplegia: CODE(S): G82.20 - Paraplegia, unspecified (3) Osteomyelitis of pelvis: CODE(S): M86.9 - Osteomyelitis, unspecified (4) Large B-cell lymphoma: CODE(S): C85.10 - Unspecified B-cell lymphoma, unspecified site PLAN: Plan Wound Care - Dakins 0.25 % moistened gauze covered with ABD or Excell SAP daily. May alternate the Dakins with Aquacel-Ag covered with gauze, if you would like. Laney wound is clear. Continue barrier cream to protect laney wound. A wound culture was obtained on 03/25/23 which was positive for Klebsiella pneumoniae, Corynebacterium species, Corynebacterium striatum, Enterococcus faecalis, Staphylococcus hominis hominis, Streptococcus canis, and Staphylococcus haemolyticus.? She is being treated with Augmentin.? Wound culture 10/07/21 while in the hospital positive for Klebsiella oxytoca, Staphylococcus haemolyticus, and Corynebacterium striatum. Treated with Zosyn and Vanc while hospitalized. Completed Augmentin. Wound culture from 09/12/21 was positive for Staphylococcus haemolyticus and Enterococcus faecalis. Completed Augmentin and Doxycycline and a probiotic. Encourage increased protein intake to help with wound healing. Her family does a really nice job with her wound care. They turn her every 2 hours. Follow up four weeks, since there was a recent change in her ulcer. Call or come in sooner if have any questions or concerns.
== END 2023-05-20 23:59 | disposition home or self-care (01) ==
LOC: WC 09:40
PROVIDERS: PCP Student in an Organized Health Care Education/Training Program; Visit Provider Nurse Practitioner Family
DX: L89.154 Pressure ulcer of sacral region, stage 4 (principal); G82.20 Paraplegia, unspecified; C85.10 Unspecified B-cell lymphoma, unspecified site; M86.10 Other acute osteomyelitis, unspecified site; Z92.3 Personal history of irradiation
CPT/HCPCS: 11042

== ENCOUNTER 2023-06-03 09:44 | Outpatient (RCR) | payer OTHER, SELFPAY ==
[2023-05-21 00:13] VITALS: BP 182/74; PULSE 76; RESP 16; TEMP 36.4; BMI 25.9
[2023-06-03 10:04] VITALS: BP 157/73; PULSE 58; RESP 16; BMI 25.9
--- NOTE | 2023-06-03 12:34 | PN.PCM_ITS ---
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 She had progressive paraplegia. She went to TCU for acute rehab for this progressive paraplegia. During that time she had worsening sacral pressure sore with skin necrosis. Surgery 05/15/21 - Excision necrotic sacral pressure sore, Stage IV, with partial ostectomy for osteomyelitis. Pathology from surgery on 05/15/21 of bone showed acute osteomyelitis. Operative tissue culture positive for Escherichia coli, Klebsiella, Vanc. Resist. E. gallinarum, Vanc. Resist. E. faecalis. Operative bone culture positive for Escherichia coli, Vanc. Resist. E. faecalis, Vanc. Resist. E. gallinarum. She was on Meropenem, Vancomycin has been stopped and Linezolid started. ID is managing. Radiation from 05/17/21 - 06/12/21 18 treatments to T4-T7 area including paraspinal region. 06/06/21- Laparoscopic sigmoid colectomy with creation of end colostomy for fecal diversion. Was in TCU 06/08/21-07/20/21. Patient had a hospitalization on 01/19/2022. She states she had C. difficile. She was discharged on 01/22/2022. While she was hospitalized she developed a new ulcer on her right ischium. Has dry scabbing. Wound culture 03/25/23 positive for Klebsiella pneumoniae, Corynebacterium species, Corynebacterium striatum, Enterococcus faecalis, Staphylococcus hominis hominis, Streptococcus canis, and Staphylococcus haemolyticus. She is being treated with Augmentin. Wound Care - Dakins 0.25 % moistened gauze covered with ABD daily to sacral ulcer. Place A&D ointment or Aquaphor for a barrier cream to laney wound of sacral ulcer to moisturize and protect the skin. She denies any nausea and vomiting. She states that her appetite is improving and she is drinking extra protein shakes. Progress of Wound: Sacral ulcer is smaller, there no longer is undermining. There is thickened scar tissue on the edges of the ulcer. Objective Data Objective Data Vital Signs: Vital Signs Temp Pulse Resp BP O2 Del Method 97.6 F L 58 L 16 157/73 H Room Air 05/21/23 00:13 06/03/23 10:04 06/03/23 10:04 06/03/23 10:04 06/03/23 10:04 Oxygen Delivery Method Room Air Weight: 155 lb 11.464 oz Body Mass Index (BMI) 25.9 Charges/Coding Procedures Integumentary 111xxx-113xx: 05676 Casie subq tissue 20 sq cm/< Debridement Note Debridement Note Wound debrided: Sacral ulcer Type of Debridement: Excisional debridement Anesthesia Used: 4% Lidocaine Solution Depth: Down to and including healthy tissue and in the subcutaneous layer Percentage of wound debrided: 100 Instrument Used: 3mm curette Tissue Removed: Non viable tissue and slough. Severity: Fat Layer Exposed Amount of bleeding with debridement: Mild Bleeding Controlled with: Pressure and Compression and gauze Patient tolerated procedure: Patient tolerated procedure well Post-Debridement Measurements and Additional Note: Post-Debridement Measurements/Treatment - Nurse 1 - General Ulcer Assessment Start: 06/03/23 10:03 Freq: Status: Active Protocol: KRANTHI Activity Type Activity Date Activity User E-sign Co-sign Detail Recorded Client Recorded Date Recorded By Document 06/03/23 10:04 [facility] [id number] 06/03/23 10:16 [facility] 06/03/23 10:04 - Today's Visit Information Type of service Follow-up Visit (Physician/[employer]ER ) Arrival Mode Wheelchair Transfer Assistance Will Lift Transfer Assist (Other) 2 Accompanied by val and son Patient Identification Verified (Name & Yes ) Patient Requires Transmission-Based No Precautions Height and Weight Body Mass Index (BMI) 25.9 BMI Classification Overweight Vital Signs Pulse Rate (60-100) 58 L Pulse Location Monitor Respiratory Rate (12-18) 16 Respiratory rate source Observation Oxygen Delivery Method Room Air Blood Pressure (90/60-120/80) 157/73 H Blood Pressure Mean (mm Hg) 101 Source Monitor Position Sitting History Since Last Visit- (Skip if this is Patient's initial visit) Have you changed medications since your No last visit? Any new allergies or adverse reactions No Had a fall/change in ADL's that may No increase risk of falls Signs or symptoms of abuse and/or No neglect since last visit Have you been in the hospital since your No last visit? Has dressing in place as prescribed Yes Has compression in place as prescribed N/A Has offloadiing in place as prescribed N/A Experienced any changes in pain level or No management Left Footwear Slipper Right Footwear Slipper Pain Scale: 0-10 Numeric Is Patient Pain Free? Yes - Nurse 1 - General Ulcer Measurement Start: 06/03/23 10:03 Freq: Status: Active Protocol: Activity Type Activity Date Activity User E-sign Co-sign Detail Recorded Client Recorded Date Recorded By Document 06/03/23 10:04 [facility] [id number] 06/03/23 10:16 [facility] 06/03/23 10:04 Wound Center Nurse 1 #1 Sacral cluster -Combined with other wound No -Current Size (cm) - Length 1 -Current Size (cm) - Width 0.3 -Current Size (cm) - Depth 0.4 -Total Square Cm 0.3 -Photo Taken No -Epithelialization None Present -Tunneling No -Undermining/Tunneling No -Circular Undermining No -Exudate Amt Medium -Exudate Type Serous -Wound Margin Thickened & Rolled Under -Granulation Amt Large (67-100%) -Granulation Quality Red -Slough/Fibrin No -Necrosis Amt None Present (0 %) -Texture (Laney-wound Skin Appearance) Assessed,Callus ,Scarring -Moisture (Laney-wound Skin Appearance) Assessed, Maceration -Color (Laney-wound Skin Appearance) Assessed -Temperature (Laney-wound Skin No Abnormality Appearance) (Pt Warm) -Tenderness on Palpation (Laney-wound No Skin Appearance) -Ulcer Cleansing Soap and Water -Foul Odor after Cleansing No -Anesthetic Used 5% Lidocaine Gel - Nurse 2 - General Ulcer CM Notes Start: 06/03/23 10:03 Freq: Status: Active Protocol: Activity Type Activity Date Activity User E-sign Co-sign Detail Recorded Client Recorded Date Recorded By Document 06/03/23 10:26 [id number] 06/03/23 10:29 06/03/23 10:26 Wound Center Nurse 2 -Time 10:28 -Correct Patient Yes -Correct Side, Site, Position Yes -Correct Procedure Yes -Procedure Performed Yes -Type of Procedure Debridement -Clinical Debridement Subcutaneous -Tissue Removed Subcutaneous -Post Debridement (cm) - Length 1.0 -Post Debridement (cm) - Width 0.5 -Post Debridement (cm) - Depth 0.2 -Total Square (Post) (cm) 0.50 -Area of Debridement (cm) - Length 1.0 -Area of Debridement (cm) - Width 0.5 -Total Square (Area) (cm) 0.50 -Tunneling No -Undermining/Tunneling No -Circular Undermining No -Wound/Ulcer Outcome Not Healed -Ulcer Cleansing Rinsed/ Irrigated with Saline -Foul Odor after Cleansing No -Bioengineered Tissue No -Bleeding Controlled with Pressure -Treatment Response Procedure Tolerated Well -Offloading No -Pressure Reduction Wheelchair cushion -Debridement - Subq, 1st 20sq cm Yes Pain Scale: 0-10 Numeric Is Patient Pain Free? Yes - Nurse 3 - General Ulcer D/C NN Start: 06/03/23 10:03 Freq: Status: Active Protocol: Activity Type Activity Date Activity User E-sign Co-sign Detail Recorded Client Recorded Date Recorded By Document 06/03/23 11:00 [facility] [id number] 06/03/23 11:01 [facility] 06/03/23 11:00 Wound Care Center Nurse 3 #1 Sacral cluster -Ulcer Cleansing Rinsed/ Irrigated with Saline -Foul Odor after Cleansing No -Primary Dressing Applied Aquacel AG 2x2, Mepilex Border -Aquacel AG 2x2 1 -Mepilex Border 1 Treatment Response Procedure Tolerated Well Pain Scale: 0-10 Numeric Is Patient Pain Free? Yes - Visit Discharge Discharge Condition Stable Ambulatory Status Wheelchair Transportation Private Auto Accompanied by val and Assessment/Plan Assessment/Plan (1) Pressure ulcer of sacral region, stage 4: CODE(S): L89.154 - Pressure ulcer of sacral region, stage 4 (2) Paraplegia: CODE(S): G82.20 - Paraplegia, unspecified (3) Osteomyelitis of pelvis: CODE(S): M86.9 - Osteomyelitis, unspecified (4) Large B-cell lymphoma: CODE(S): C85.10 - Unspecified B-cell lymphoma, unspecified site PLAN: Plan Wound Care - Moistened Aquacel-Ag covered by [place] SAP or gauze daily. A wound culture was obtained on 03/25/23 which was positive for Klebsiella pneumoniae, Corynebacterium species, Corynebacterium striatum, Enterococcus faecalis, Staphylococcus hominis hominis, Streptococcus canis, and Staphylococcus haemolyticus.? She is being treated with Augmentin.? Wound culture 10/07/21 while in the hospital positive for Klebsiella oxytoca, Staphylococcus haemolyticus, and Corynebacterium striatum. Treated with Zosyn and Vanc while hospitalized. Completed Augmentin. Wound culture from 09/12/21 was positive for Staphylococcus haemolyticus and Enterococcus faecalis. Completed Augmentin and Doxycycline and a probiotic. Encourage increased protein intake to help with wound healing. Her family does a really nice job with her wound care. They turn her every 2 hours. Follow up four weeks. Call or come in sooner if have any questions or concerns.
== END 2023-06-20 23:59 | disposition home or self-care (01) ==
LOC: WC 09:44
PROVIDERS: PCP Student in an Organized Health Care Education/Training Program; Visit Provider Nurse Practitioner Family
DX: L89.154 Pressure ulcer of sacral region, stage 4 (principal); G82.20 Paraplegia, unspecified; C85.10 Unspecified B-cell lymphoma, unspecified site; M86.10 Other acute osteomyelitis, unspecified site; Z92.3 Personal history of irradiation
CPT/HCPCS: 11042

== ENCOUNTER 2023-07-01 09:49 | Outpatient (RCR) | payer OTHER, SELFPAY ==
[2023-06-21 00:10] VITALS: BP 157/73; PULSE 58; RESP 16; TEMP 36.4; BMI 25.9
[2023-07-01 10:04] VITALS: BP 57/55; PULSE 58; RESP 18; TEMP 35.9; BMI 25.9
--- NOTE | 2023-07-01 12:45 | PN.PCM_ITS ---
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 She had progressive paraplegia. She went to TCU for acute rehab for this progressive paraplegia. During that time she had worsening sacral pressure sore with skin necrosis. Surgery 05/15/21 - Excision necrotic sacral pressure sore, Stage IV, with partial ostectomy for osteomyelitis. Pathology from surgery on 05/15/21 of bone showed acute osteomyelitis. Operative tissue culture positive for Escherichia coli, Klebsiella, Vanc. Resist. E. gallinarum, Vanc. Resist. E. faecalis. Operative bone culture positive for Escherichia coli, Vanc. Resist. E. faecalis, Vanc. Resist. E. gallinarum. She was on Meropenem, Vancomycin has been stopped and Linezolid started. ID is managing. Radiation from 05/17/21 - 06/12/21 18 treatments to T4-T7 area including paraspinal region. 06/06/21- Laparoscopic sigmoid colectomy with creation of end colostomy for fecal diversion. Was in TCU 06/08/21-07/20/21. Patient had a hospitalization on 01/19/2022. She states she had C. difficile. She was discharged on 01/22/2022. While she was hospitalized she developed a new ulcer on her right ischium. Has dry scabbing. Wound culture 03/25/23 positive for Klebsiella pneumoniae, Corynebacterium species, Corynebacterium striatum, Enterococcus faecalis, Staphylococcus hominis hominis, Streptococcus canis, and Staphylococcus haemolyticus. She is being treated with Augmentin. Wound Care - Dakins 0.25 % moistened gauze covered with ABD daily to sacral ulcer. Place A&D ointment or Aquaphor for a barrier cream to laney wound of sacral ulcer to moisturize and protect the skin. She denies any nausea and vomiting. She states that her appetite is improving and she is drinking extra protein shakes. Progress of Wound: Sacral ulcer is slightly smaller, there no longer is undermining. There is thickened scar tissue on the edges of the ulcer. Objective Data Objective Data Vital Signs: Vital Signs Temp Pulse Resp BP 96.6 F L 58 L 18 57/55 L 09/11/23 10:04 07/01/23 10:04 07/01/23 10:04 07/01/23 10:04 Weight: 155 lb 11.464 oz Body Mass Index (BMI) 25.9 Charges/Coding Procedures Integumentary 111xxx-113xx: 64469 Casie subq tissue 20 sq cm/< Debridement Note Debridement Note Wound debrided: Sacral ulcer Type of Debridement: Excisional debridement Anesthesia Used: 4% Lidocaine Solution Depth: Down to and including healthy tissue and in the subcutaneous layer Percentage of wound debrided: 100 Instrument Used: 3mm curette Tissue Removed: Non viable tissue and slough. Severity: Fat Layer Exposed Amount of bleeding with debridement: Mild Bleeding Controlled with: Pressure and Compression and gauze Patient tolerated procedure: Patient tolerated procedure well Post-Debridement Measurements and Additional Note: Post-Debridement Measurements/Treatment - Nurse 1 - General Ulcer Assessment Start: 07/01/23 10:04 Freq: Status: Active Protocol: KRANTHI Activity Type Activity Date Activity User E-sign Co-sign Detail Recorded Client Recorded Date Recorded By Document 07/01/23 10:04 GABBY [id number] 07/01/23 10:17 KW 07/01/23 10:04 - Today's Visit Information Type of service Follow-up Visit (Physician/MEDICAL BILLING SUPERVISOR ) Arrival Mode Wheelchair Transfer Assistance Will Lift Patient Identification Verified (Name & Yes ) Height and Weight Body Mass Index (BMI) 25.9 BMI Classification Overweight Vital Signs Temperature (97.8 F-99.1 F) 96.6 F L Temperature Source Temporal Pulse Rate (60-100) 58 L Pulse Location Monitor Respiratory Rate (12-18) 18 Respiratory rate source Observation Blood Pressure (90/60-120/80) 57/55 L Blood Pressure Mean (mm Hg) 55 Source Monitor Position Sitting Blood Pressure Location Right Forearm History Since Last Visit- (Skip if this is Patient's initial visit) Have you changed medications since your No last visit? Any new allergies or adverse reactions No Had a fall/change in ADL's that may No increase risk of falls Signs or symptoms of abuse and/or No neglect since last visit Have you been in the hospital since your No last visit? Has dressing in place as prescribed Yes Has compression in place as prescribed N/A Has offloadiing in place as prescribed N/A Experienced any changes in pain level or No management Left Footwear Regular Shoe Right Footwear Regular Shoe Pain Scale: 0-10 Numeric Is Patient Pain Free? Yes - Nurse 1 - General Ulcer Measurement Start: 07/01/23 10:04 Freq: Status: Active Protocol: Activity Type Activity Date Activity User E-sign Co-sign Detail Recorded Client Recorded Date Recorded By Document 07/01/23 10:04 [id number] 07/01/23 10:17 07/01/23 10:04 Wound Center Nurse 1 #1 Sacral cluster -Combined with other wound No -Current Size (cm) - Length 1.0 -Current Size (cm) - Width 1.3 -Current Size (cm) - Depth 0.6 -Total Square Cm 1.30 -Exudate Amt Small -Exudate Type Serosanguineous -Wound Margin Distinct, Outline Attached -Granulation Amt Small (1-33%) -Granulation Quality Red -Necrosis Amt Small (1-33%) -Texture (Laney-wound Skin Appearance) Assessed -Moisture (Laney-wound Skin Appearance) Assessed -Color (Laney-wound Skin Appearance) Assessed -Temperature (Laney-wound Skin No Abnormality Appearance) (Pt Warm) -Ulcer Cleansing Rinsed/ Irrigated with Saline -Anesthetic Used 5% Lidocaine Gel - Nurse 2 - General Ulcer CM Notes Start: 07/01/23 10:04 Freq: Status: Active Protocol: Activity Type Activity Date Activity User E-sign Co-sign Detail Recorded Client Recorded Date Recorded By Document 07/01/23 10:30 [id number] 07/01/23 10:34 07/01/23 10:30 Wound Center Nurse 2 -Time 10:30 -Correct Patient Yes -Correct Side, Site, Position Yes -Correct Procedure Yes -Procedure Performed Yes -Type of Procedure Debridement -Clinical Debridement Subcutaneous -Tissue Removed Subcutaneous -Post Debridement (cm) - Length 0.6 -Post Debridement (cm) - Width 0.5 -Post Debridement (cm) - Depth 0.2 -Total Square (Post) (cm) 0.30 -Area of Debridement (cm) - Length 0.6 -Area of Debridement (cm) - Width 0.5 -Total Square (Area) (cm) 0.30 -Tunneling No -Undermining/Tunneling No -Circular Undermining No -Wound/Ulcer Outcome Not Healed -Ulcer Cleansing Rinsed/ Irrigated with Saline -Foul Odor after Cleansing No -Bioengineered Tissue No -Bleeding Controlled with Pressure -Treatment Response Procedure Tolerated Well -Offloading No -Debridement - Subq, 1st 20sq cm Yes Pain Scale: 0-10 Numeric Is Patient Pain Free? Yes - Nurse 3 - General Ulcer D/C NN Start: 07/01/23 10:04 Freq: Status: Active Protocol: Activity Type Activity Date Activity User E-sign Co-sign Detail Recorded Client Recorded Date Recorded By Document 07/01/23 12:20 [id number] 07/01/23 12:21 RB 07/01/23 12:20 Wound Care Center Nurse 3 #1 Sacral cluster -Ulcer Cleansing Wound Cleanser -Primary Dressing Applied Fibracol Plus 4x4,Mepilex Border -Fibracol Plus 4x4 2 -Mepilex Border 1 Treatment Response Procedure Tolerated Well Pain Scale: 0-10 Numeric Is Patient Pain Free? Yes Teaching: Wound Center Dressing Your Wound -Person Taught Patient,Family -Teaching Method Discussion, Demonstration -Response to teaching Verbalize understanding WC - Visit Discharge Discharge Condition Stable Ambulatory Status Wheelchair Transportation Private Auto Medication Reconcilliation completed & No provided to patient/care provider Clinical Summary of Care Provided Yes Assessment/Plan Assessment/Plan (1) Pressure ulcer of sacral region, stage 4: CODE(S): L89.154 - Pressure ulcer of sacral region, stage 4 (2) Paraplegia: CODE(S): G82.20 - Paraplegia, unspecified (3) Osteomyelitis of pelvis: CODE(S): M86.9 - Osteomyelitis, unspecified (4) Large B-cell lymphoma: CODE(S): C85.10 - Unspecified B-cell lymphoma, unspecified site PLAN: Plan Wound Care - Moistened Fibracol+ covered by [place] SAP or gauze daily. A wound culture was obtained on 03/25/23 which was positive for Klebsiella pneumoniae, Corynebacterium species, Corynebacterium striatum, Enterococcus faecalis, Staphylococcus hominis hominis, Streptococcus canis, and Stap hylococcus haemolyticus.? She was treated with Augmentin.? Wound culture 10/07/21 while in the hospital positive for Klebsiella oxytoca, Staphylococcus haemolyticus, and Corynebacterium striatum. Treated with Zosyn and Vanc while hospitalized. Completed Augmentin. Wound culture from 09/12/21 was positive for Staphylococcus haemolyticus and Enterococcus faecalis. Completed Augmentin and Doxycycline and a probiotic. Encourage increased protein intake to help with wound healing. Her family does a really nice job with her wound care. They turn her every 2 hours. Follow up four weeks. Call or come in sooner if have any questions or concerns.
== END 2023-07-20 23:59 | disposition home or self-care (01) ==
LOC: WC 09:49
PROVIDERS: PCP Student in an Organized Health Care Education/Training Program; Visit Provider Nurse Practitioner Family
DX: L89.154 Pressure ulcer of sacral region, stage 4 (principal); G82.20 Paraplegia, unspecified; C85.10 Unspecified B-cell lymphoma, unspecified site; M86.10 Other acute osteomyelitis, unspecified site; Z92.3 Personal history of irradiation
CPT/HCPCS: 11042

== ENCOUNTER 2023-08-19 10:00 | Outpatient (RCR) | payer OTHER, SELFPAY ==
[2023-07-21 00:12] VITALS: BP 57/55; PULSE 58; RESP 18; TEMP 35.9; BMI 25.9
[2023-07-29 09:54] VITALS: BP 138/64; PULSE 57; RESP 18; TEMP 36.4; BMI 25.9
[2023-07-29 11:06] LABS: Color, Urine Yellow (Yellow); Glucose, Dipstick Normal (Normal); Ketone-Dipstick Negative (Negative); Leukocyte Esterase-Dipstick 500 /ul (Negative); Nitrite-Dipstick Positive (Negative); Occult Blood-Urine 25 /ul (Negative); Protein-Dipstick 30 mg/dl (Negative); Urine Bilirubin Dipstick Negative (Negative); Urine Clarity Cloudy (Clear); Urine Urobilinogen Normal (Normal); Urine pH 6.5 (5.0 - 8.0)
--- NOTE | 2023-07-29 14:16 | PN.PCM_ITS ---
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 She had progressive paraplegia. She went to TCU for acute rehab for this progressive paraplegia. During that time she had worsening sacral pressure sore with skin necrosis. Surgery 05/15/21 - Excision necrotic sacral pressure sore, Stage IV, with partial ostectomy for osteomyelitis. Pathology from surgery on 05/15/21 of bone showed acute osteomyelitis. Operative tissue culture positive for Escherichia coli, Klebsiella, Vanc. Resist. E. gallinarum, Vanc. Resist. E. faecalis. Operative bone culture positive for Escherichia coli, Vanc. Resist. E. faecalis, Vanc. Resist. E. gallinarum. She was on Meropenem, Vancomycin has been stopped and Linezolid started. ID is managing. Radiation from 05/17/21 - 06/12/21 18 treatments to T4-T7 area including paraspinal region. 06/06/21- Laparoscopic sigmoid colectomy with creation of end colostomy for fecal diversion. Was in TCU 06/08/21-07/20/21. Patient had a hospitalization on 01/19/2022. She states she had C. difficile. She was discharged on 01/22/2022. While she was hospitalized she developed a new ulcer on her right ischium. Has dry scabbing. Wound culture 03/25/23 positive for Klebsiella pneumoniae, Corynebacterium species, Corynebacterium striatum, Enterococcus faecalis, Staphylococcus hominis hominis, Streptococcus canis, and Staphylococcus haemolyticus. She is being treated with Augmentin. She denies any nausea and vomiting. She states that her appetite is improving and she is drinking extra protein shakes. Progress of Wound: Sacral ulcer is stable. There is thickened scar tissue on the edges of the ulcer. She has had a few episodes of confusion that the family is concerned about. Will obtain a wound and urine culture. She has a chronic indwelling catheter. Objective Data Objective Data Vital Signs: Vital Signs Temp Pulse Resp BP 97.6 F L 57 L 18 138/64 H 07/29/23 09:54 07/29/23 09:54 07/29/23 09:54 07/29/23 09:54 Weight: 155 lb 11.464 oz Body Mass Index (BMI) 25.9 Lab / Micro Data Labs: Laboratory Results - last 24 hr 07/29/23 10:20: Urine Color Yellow, Urine Clarity Cloudy, Urine pH 6.5, Ur Specific [place] 1.010, Urine Protein 30 H, Urine Glucose (UA) Normal, Urine Ketones Negative, Urine Occult Blood 25 H, Urine Nitrite Positive H, Urine Bilirubin Negative, Urine Urobilinogen Normal, Ur Leukocyte Esterase 500 H Charges/Coding Procedures Integumentary 111xxx-113xx: 48305 Casie subq tissue 20 sq cm/< Debridement Note Debridement Note Wound debrided: Sacral ulcer Type of Debridement: Excisional debridement Anesthesia Used: 4% Lidocaine Solution Depth: Down to and including healthy tissue and in the subcutaneous layer Percentage of wound debrided: 100 Instrument Used: 3mm curette Tissue Removed: Non viable tissue and slough. Severity: Fat Layer Exposed Amount of bleeding with debridement: Mild Bleeding Controlled with: Pressure and Compression and gauze Patient tolerated procedure: Patient tolerated procedure well Post-Debridement Measurements and Additional Note: Post-Debridement Measurements/Treatment - Nurse 1 - General Ulcer Assessment Start: 07/29/23 09:54 Freq: Status: Active Protocol: KRANTHI Activity Type Activity Date Activity User E-sign Co-sign Detail Recorded Client Recorded Date Recorded By Document 07/29/23 09:54 DL Desktop 07/29/23 10:06 DL 07/29/23 09:54 - Today's Visit Information Type of service Follow-up Visit (Physician/STATION MANAGER ) Arrival Mode Wheelchair Transfer Assistance Will Lift Patient Identification Verified (Name & Yes ) Patient Requires Transmission-Based No Precautions Height and Weight Body Mass Index (BMI) 25.9 BMI Classification Overweight Vital Signs Temperature (97.8 F-99.1 F) 97.6 F L Temperature Source Temporal Pulse Rate (60-100) 57 L Pulse Location Monitor Respiratory Rate (12-18) 18 Respiratory rate source Observation Blood Pressure (90/60-120/80) 138/64 H Blood Pressure Mean (mm Hg) 88 Source Monitor History Since Last Visit- (Skip if this is Patient's initial visit) Have you changed medications since your No last visit? Any new allergies or adverse reactions No Had a fall/change in ADL's that may No increase risk of falls Signs or symptoms of abuse and/or No neglect since last visit Have you been in the hospital since your No last visit? Has dressing in place as prescribed Yes Has compression in place as prescribed N/A Has offloadiing in place as prescribed Yes Experienced any changes in pain level or No management Pain Scale: 0-10 Numeric Is Patient Pain Free? Yes WC - Nurse 1 - General Ulcer Measurement Start: 07/29/23 09:54 Freq: Status: Active Protocol: Activity Type Activity Date Activity User E-sign Co-sign Detail Recorded Client Recorded Date Recorded By Document 07/29/23 09:54 DL Desktop 07/29/23 10:06 DL 07/29/23 09:54 Wound Center Nurse 1 #1 Sacral cluster -Current Size (cm) - Length 0.8 -Current Size (cm) - Width 0.2 -Current Size (cm) - Depth 0.4 -Total Square Cm 0.16 -Exudate Amt Medium -Wound Margin Thickened -Granulation Amt Small (1-33%) -Granulation Quality [place] -Necrosis Amt Small (1-33%) -Necrotic Tissue Type Adherent Slough -Structure Exposed N/A -Texture (Laney-wound Skin Appearance) Scarring -Moisture (Laney-wound Skin Appearance) Maceration -Color (Laney-wound Skin Appearance) No Abnormality -Temperature (Laney-wound Skin No Abnormality Appearance) (Pt Warm) -Tenderness on Palpation (Laney-wound No Skin Appearance) -Ulcer Cleansing Rinsed/ Irrigated with Saline -Foul Odor after Cleansing No -Anesthetic Used 5% Lidocaine Gel WC - Nurse 2 - General Ulcer CM Notes Start: 07/29/23 09:54 Freq: Status: Active Protocol: Activity Type Activity Date Activity User E-sign Co-sign Detail Recorded Client Recorded Date Recorded By Document 07/29/23 10:16 Laptop 07/29/23 10:24 07/29/23 10:16 Wound Center Nurse 2 -Time 10:17 -Correct Patient Yes -Correct Side, Site, Position Yes -Correct Procedure Yes -Procedure Performed Yes -Type of Procedure Debridement -Clinical Debridement Subcutaneous -Tissue Removed Subcutaneous -Post Debridement (cm) - Length 0.6 -Post Debridement (cm) - Width 1.1 -Post Debridement (cm) - Depth 0.3 -Total Square (Post) (cm) 0.66 -Area of Debridement (cm) - Length 0.6 -Area of Debridement (cm) - Width 1.1 -Total Square (Area) (cm) 0.66 -Tunneling No -Undermining/Tunneling No -Circular Undermining No -Wound/Ulcer Outcome Not Healed -Ulcer Cleansing Rinsed/ Irrigated with Saline -Foul Odor after Cleansing No -Bioengineered Tissue No -Bleeding Controlled with Pressure -Treatment Response Procedure Tolerated Well -Offloading No -Debridement - Subq, 1st 20sq cm Yes Pain Scale: 0-10 Numeric Is Patient Pain Free? Yes - Nurse 3 - General Ulcer D/C NN Start: 07/29/23 09:54 Freq: Status: Active Protocol: Activity Type Activity Date Activity User E-sign Co-sign Detail Recorded Client Recorded Date Recorded By Document 07/29/23 10:28 Laptop 07/29/23 10:30 07/29/23 10:28 Wound Care Center Nurse 3 #1 Sacral cluster -Ulcer Cleansing Rinsed/ Irrigated with Saline -Foul Odor after Cleansing No -Primary Dressing Applied Fibracol Plus 4x4,Mepilex Border -Fibracol Plus 4x4 1 -Mepilex Border 1 Pain Scale: 0-10 Numeric Is Patient Pain Free? Yes - Visit Discharge Discharge Condition Stable Ambulatory Status Wheelchair Transportation Private Auto Accompanied by will Medication Reconcilliation completed & Yes provided to patient/care provider Clinical Summary of Care Provided Yes Assessment/Plan Assessment/Plan (1) Pressure ulcer of sacral region, stage 4: CODE(S): L89.154 - Pressure ulcer of sacral region, stage 4 (2) Paraplegia: CODE(S): G82.20 - Paraplegia, unspecified (3) Osteomyelitis of pelvis: CODE(S): M86.9 - Osteomyelitis, unspecified (4) Large B-cell lymphoma: CODE(S): C85.10 - Unspecified B-cell lymphoma, unspecified site (5) Cloudy urine: CODE(S): R82.90 - Unspecified abnormal findings in urine (6) Chronic indwelling C[place] catheter: CODE(S): Z97.8 - Presence of other specified devices PLAN: Plan Wound Care - Moistened Fibracol+ covered by [place] SAP or gauze daily. Family is concerned because she has a a couple episodes of confusion (not confused at this moment). Will check wound culture and a urine culture, since she has an indwelling cyr catheter. U/A came back positve for Nitrites, 500 Leukocyte Esterase, High urine occult blood. Will start her on Cipro BID and wait for urine culture and sensitivity to come back. May need to change antibiotic, depending on the sensitivities. A wound culture was obtained today, 07/29/23.? A positive culture will necessitate antibiotic therapy. Wound culture 10/07/21 while in the hospital positive for Klebsiella oxytoca, Staphylococcus haemolyticus, and Corynebacterium striatum. Treated with Zosyn and Vanc while hospitalized. Completed Augmentin. Wound culture from 09/12/21 was positive for Staphylococcus haemolyticus and Enterococcus faecalis. Completed Augmentin and Doxycycline and a probiotic. A wound culture was obtained on 03/25/23 which was positive for Klebsiella pneumoniae, Corynebacterium species, Corynebacterium striatum, Enterococcus faecalis, Staphylococcus hominis hominis, Streptococcus canis, and Staphy lococcus haemolyticus.? She was treated with Augmentin.? Encourage increased protein intake to help with wound healing. Her family does a really nice job with her wound care. They turn her every 2 ho urs. Follow up 3 weeks. Call or come in sooner if have any questions or concerns.
[2023-08-19 10:03] VITALS: BP 123/55; PULSE 63; RESP 16; TEMP 36.6; BMI 25.9
--- NOTE | 2023-08-19 12:41 | PCM.WC.PN ---
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 She had progressive paraplegia. She went to TCU for acute rehab for this progressive paraplegia. During that time she had worsening sacral pressure sore with skin necrosis. Surgery 05/15/21 - Excision necrotic sacral pressure sore, Stage IV, with partial ostectomy for osteomyelitis. Pathology from surgery on 05/15/21 of bone showed acute osteomyelitis. Operative tissue culture positive for Escherichia coli, Klebsiella, Vanc. Resist. E. gallinarum, Vanc. Resist. E. faecalis. Operative bone culture positive for Escherichia coli, Vanc. Resist. E. faecalis, Vanc. Resist. E. gallinarum. She was on Meropenem, Vancomycin has been stopped and Linezolid started. ID is managing. Radiation from 05/17/21 - 06/12/21 18 treatments to T4-T7 area including paraspinal region. 06/06/21- Laparoscopic sigmoid colectomy with creation of end colostomy for fecal diversion. Was in TCU 06/08/21-07/20/21. Patient had a hospitalization on 01/19/2022. She states she had C. difficile. She was discharged on 01/22/2022. While she was hospitalized she developed a new ulcer on her right ischium. Has dry scabbing. Wound culture 03/25/23 positive for Klebsiella pneumoniae, Corynebacterium species, Corynebacterium striatum, Enterococcus faecalis, Staphylococcus hominis hominis, Streptococcus canis, and Staphylococcus haemolyticus. She was treated with Augmentin. Wound cultures from 07/29/23 were positive for Corynebacterium striatum and Staphylococcus epidermidis. Urine culture from 07/29/23 was positive for Pseudomonas aeruginosa, Citrobacter freundii, and Enterococcus faecalis. She was treated with Cipro and Augmentin for both her wound and urine cultures. She denies any nausea and vomiting. She states that her appetite is improving and she is drinking extra protein shakes. Progress of Wound: Sacral ulcer is smaller in size. The thickened scar tissue on the edges of the ulcer are not quite as thick this week. Her urine is looking clear today. Her urinary tract symptoms resolved once she was treated with the antibiotics. Objective Data Objective Data Vital Signs: Vital Signs Temp Pulse Resp BP O2 Del Method 97.8 F 63 16 123/55 H Room Air 08/19/23 10:03 08/19/23 10:03 08/19/23 10:03 08/19/23 10:03 08/19/23 10:03 Oxygen Delivery Method Room Air Weight: 155 lb 11.464 oz Body Mass Index (BMI) 25.9 Lab / Micro Data Micro: Microbiology 07/29/23 10:20 Urine, Random Urine Culture - Final Pseudomonas aeruginosa Citrobacter freundii Enterococcus faecalis 07/29/23 10:20 Wound - Sacral Gram Stain - Final 07/29/23 10:20 Wound - Sacral Wound Culture - Final Corynebacterium striatum Staphylococcus epidermidis 07/29/23 10:20 Wound - Sacral Anaerobic Culture - Final No anaerobic bacteria isolated. Charges/Coding Procedures Integumentary 111xxx-113xx: [id number] Casie subq tissue 20 sq cm/< Debridement Note Debridement Note Wound debrided: Sacral ulcer Type of Debridement: Excisional debridement Anesthesia Used: 4% Lidocaine Solution Depth: Down to and including healthy tissue and in the subcutaneous layer Percentage of wound debrided: 100 Instrument Used: 3mm curette Tissue Removed: Non viable tissue and slough. Severity: Fat Layer Exposed Amount of bleeding with debridement: Mild Bleeding Controlled with: Pressure and Compression and gauze Patient tolerated procedure: Patient tolerated procedure well Post-Debridement Measurements and Additional Note: Post-Debridement Measurements/Treatment NICOLAS - Nurse 1 - General Ulcer Assessment Start: 07/29/23 09:54 Freq: Status: Active Protocol: KRANTHI Activity Type Activity Date Activity User E-sign Co-sign Detail Recorded Client Recorded Date Recorded By Document 07/29/23 09:54 DL Desktop 07/29/23 10:06 DL Document 08/19/23 10:03 BM[facility] Desktop 08/19/23 10:17 BMF 07/29/23 08/19/23 09:54 10:03 - Today's Visit Information Type of service Follow-up Visit Follow-up Visit (Physician/DIE GRINDER (Physician/DIE GRINDER ) ) Arrival Mode Wheelchair Wheelchair Transfer Assistance Will Lift Will Lift Transfer Assist (Other) val and Patient Identification Verified (Name & Yes Yes ) Patient Requires Transmission-Based No No Precautions Height and Weight Body Mass Index (BMI) 25.9 25.9 BMI Classification Overweight Overweight Vital Signs Temperature (97.8 F-99.1 F) 97.6 F L 97.8 F Temperature Source Temporal Temporal Pulse Rate (60-100) 57 L 63 Pulse Location Monitor Monitor Respiratory Rate (12-18) 18 16 Respiratory rate source Observation Observation Oxygen Delivery Method Room Air Blood Pressure (90/60-120/80) 138/64 H 123/55 H Blood Pressure Mean (mm Hg) 88 77 Source Monitor Monitor Position Sitting Blood Pressure Location Left Arm History Since Last Visit- (Skip if this is Patient's initial visit) Have you changed medications since your No No last visit? Any new allergies or adverse reactions No No Had a fall/change in ADL's that may No No increase risk of falls Signs or symptoms of abuse and/or No No neglect since last visit Have you been in the hospital since your No No last visit? Has dressing in place as prescribed Yes Yes Has compression in place as prescribed N/A N/A Has offloadiing in place as prescribed Yes N/A Experienced any changes in pain level or No No management Left Footwear Slipper Right Footwear Slipper Pain Scale: 0-10 Numeric Is Patient Pain Free? Yes Yes WC - Nurse 1 - General Ulcer Measurement Start: 07/29/23 09:54 Freq: Status: Active Protocol: Activity Type Activity Date Activity User E-sign Co-sign Detail Recorded Client Recorded Date Recorded By Document 07/29/23 09:54 DL Desktop 07/29/23 10:06 DL Document 08/19/23 10:03 [facility] Desktop 08/19/23 10:17 [facility] 07/29/23 08/19/23 09:54 10:03 Wound Center Nurse 1 #1 Sacral cluster -Combined with other wound No -Current Size (cm) - Length 0.8 0.9 -Current Size (cm) - Width 0.2 0.3 -Current Size (cm) - Depth 0.4 0.2 -Total Square Cm 0.16 0.27 -Photo Taken No -Epithelialization None Present -Tunneling No -Undermining/Tunneling No -Circular Undermining No -Exudate Amt Medium Medium -Exudate Type Serosanguineous -Wound Margin Thickened Distinct, Outline Attached -Granulation Amt Small (1-33%) Large (67-100%) -Granulation Quality [place] Red -Slough/Fibrin Yes -Necrosis Amt Small (1-33%) Small (1-33%) -Necrotic Tissue Type Adherent Slough Adherent Slough -Structure Exposed N/A -Texture (Laney-wound Skin Appearance) Scarring Assessed, Scarring -Moisture (Laney-wound Skin Appearance) Maceration Assessed, Maceration -Color (Laney-wound Skin Appearance) No Abnormality Assessed -Temperature (Laney-wound Skin No Abnormality No Abnormality Appearance) (Pt Warm) (Pt Warm) -Tenderness on Palpation (Laney-wound No No Skin Appearance) -Ulcer Cleansing Rinsed/ Rinsed/ Irrigated with Irrigated with Saline Saline -Foul Odor after Cleansing No No -Anesthetic Used 5% Lidocaine 5% Lidocaine Gel Gel WC - Nurse 2 - General Ulcer CM Notes Start: 07/29/23 09:54 Freq: Status: Active Protocol: Activity Type Activity Date Activity User E-sign Co-sign Detail Recorded Client Recorded Date Recorded By Document 07/29/23 10:16 Laptop 07/29/23 10:24 Document 08/19/23 10:43 Laptop 08/19/23 10:45 07/29/23 08/19/23 10:16 10:43 Wound Center Nurse 2 #1 Sacral cluster -Time 10:17 10:43 -Correct Patient Yes Yes -Correct Side, Site, Position Yes Yes -Correct Procedure Yes Yes -Procedure Performed Yes Yes -Type of Procedure Debridement Debridement -Clinical Debridement Subcutaneous Subcutaneous -Tissue Removed Subcutaneous Subcutaneous -Post Debridement (cm) - Length 0.6 0.2 -Post Debridement (cm) - Width 1.1 1.0 -Post Debridement (cm) - Depth 0.3 0.2 -Total Square (Post) (cm) 0.66 0.20 -Area of Debridement (cm) - Length 0.6 0.2 -Area of Debridement (cm) - Width 1.1 1.0 -Total Square (Area) (cm) 0.66 0.20 -Tunneling No No -Undermining/Tunneling No No -Circular Undermining No No -Wound/Ulcer Outcome Not Healed Not Healed -Ulcer Cleansing Rinsed/ Rinsed/ Irrigated with Irrigated with Saline Saline -Foul Odor after Cleansing No No -Bioengineered Tissue No No -Bleeding Controlled with Pressure Pressure -Treatment Response Procedure Procedure Tolerated Well Tolerated Well -Offloading No No -Debridement - Subq, 1st 20sq cm Yes Yes Pain Scale: 0-10 Numeric Is Patient Pain Free? Yes Yes - Nurse 3 - General Ulcer D/C NN Start: 07/29/23 09:54 Freq: Status: Active Protocol: Activity Type Activity Date Activity User E-sign Co-sign Detail Recorded Client Recorded Date Recorded By Document 07/29/23 10:28 Laptop 07/29/23 10:30 07/29/23 10:28 Wound Care Center Nurse 3 #1 Sacral cluster -Ulcer Cleansing Rinsed/ Irrigated with Saline -Foul Odor after Cleansing No -Primary Dressing Applied Fibracol Plus 4x4,Mepilex Border -Fibracol Plus 4x4 1 -Mepilex Border 1 Pain Scale: 0-10 Numeric Is Patient Pain Free? Yes - Visit Discharge Discharge Condition Stable Ambulatory Status Wheelchair Transportation Private Auto Accompanied by will Medication Reconcilliation completed & Yes provided to patient/care provider Clinical Summary of Care Provided Yes Assessment/Plan Assessment/Plan (1) Pressure ulcer of sacral region, stage 4: CODE(S): L89.154 - Pressure ulcer of sacral region, stage 4 (2) Paraplegia: CODE(S): G82.20 - Paraplegia, unspecified (3) Osteomyelitis of pelvis: CODE(S): M86.9 - Osteomyelitis, unspecified (4) Large B-cell lymphoma: CODE(S): C85.10 - Unspecified B-cell lymphoma, unspecified site (5) Chronic indwelling Gutierrez catheter: CODE(S): Z97.8 - Presence of other specified devices PLAN: Plan Wound Care - Moistened Fibracol+ covered by [place] SAP or gauze daily. Encourage increased protein intake to help with wound healing. Her family does a really nice job with her wound care. They turn her every 2 hours. Follow up 4 weeks. Call or come in sooner if have any questions or concerns.
== END 2023-08-20 23:59 | disposition home or self-care (01) ==
LOC: WC 10:00
PROVIDERS: PCP Student in an Organized Health Care Education/Training Program; Visit Provider Nurse Practitioner Family
DX: L89.154 Pressure ulcer of sacral region, stage 4 (principal); G82.20 Paraplegia, unspecified; C85.10 Unspecified B-cell lymphoma, unspecified site; M86.10 Other acute osteomyelitis, unspecified site; B96.5 Pseudomonas (aeruginosa) (mallei) (pseudomallei) as the cause of diseases classified elsewhere; Z92.3 Personal history of irradiation; R41.0 Disorientation, unspecified
CPT/HCPCS: 11042; 81002; 87070; 87075; 87077; 87086; 87088; 87186; 87205

== ENCOUNTER 2023-10-07 10:30 | Outpatient (RCR) | payer OTHER, SELFPAY ==
[2023-08-21 00:35] VITALS: BP 123/55; PULSE 63; RESP 16; TEMP 36.6; BMI 25.9
[2023-09-23 09:31] VITALS: BP 150/63; PULSE 57; RESP 16; TEMP 35.9; BMI 25.9
--- NOTE | 2023-09-23 11:00 | PN.PCM_ITS ---
History of Present Illness Date of Service: 09/23/23 Chief Complaint: Sacral ulcer History of Wound: CHRISTOPHER CORONEL, is a 77 Female with history of diffuse large B- cell lymphoma,who had emergency evacuation, biopsy of epidural mass causing T4- T7 spinal cord compression. She had progressive paraplegia. She went to TCU for acute rehab for this progressive paraplegia. During that time she had worsening sacral pressure sore with skin necrosis. Surgery 05/15/21 - Excision necrotic sacral pressure sore, Stage IV, with partial ostectomy for osteomyelitis. Pathology from surgery on 05/15/21 of bone showed acute osteomyelitis. Operative culture, soft tissue, from 05/15/21 was positive for Escherichia coli, Klebsiella, Vanc. Resist. E. gallinarum, Vanc. Resist. E. faecalis. Operative culture, bone, from 05/15/21 was positive for Escherichia coli, Vanc. Resist. E. faecalis, Vanc. Resist. E. gallinarum. She was treated with Meropenem and Vancomycin. Linezolid was started after Vancomycin was stopped. Radiation from 05/17/21 - 06/12/21 18 treatments to T4-T7 area including paraspinal region. 06/06/21- Laparoscopic sigmoid colectomy with creation of end colostomy for fecal diversion. Wound culture from 07/29/23 was positive for Staphylococcus epidermidis and Corynebacterium striatum. She was treated with Augmentin. Today she denies any fever. Her appetite is ok. Progress of Wound: Unchanged. It has reached a plateau. Objective Data Objective Data Vital Signs: Vital Signs Temp Pulse Resp BP O2 Del Method 96.6 F L 57 L 16 150/63 H Room Air 09/23/23 09:31 09/23/23 09:31 09/23/23 09:31 09/23/23 09:31 09/23/23 09:31 Oxygen Delivery Method Room Air Weight: 155 lb 11.464 oz Body Mass Index (BMI) 25.9 Lab / Micro Data Attestation: I reviewed the patient's lab results. Charges/Coding Procedures Integumentary 111xxx-113xx: [id number] Casie musc/fascia 20 sq cm/< (ICD-10 - L89.154, G82.20, M86.9, C85.10, Z97.8) Debridement Note Debridement Note Wound debrided: #1 Sacral area. Laterality: Not Applicable Wound Grade/Stage: IV. Type of Debridement: Excisional debridement Anesthesia Used: 4% Lidocaine Solution Depth: Down to and including healthy tissue, in the subcutaneous layer, to muscle and to bone (bone was palpable but not exposed and not debrided.) Percentage of wound debrided: 100 Instrument Used: 5mm curette Tissue Removed: subcutaneous tissue and muscle Severity: Fat Layer Exposed (muscle is exposed. Bone is palpable but not exposed and not debrided.) Amount of bleeding with debridement: Mild Bleeding Controlled with: Pressure and Compression and gauze Patient tolerated procedure: Patient tolerated procedure well Post-Debridement Measurements and Additional Note: Post-Debridement Measurements/Treatment - Nurse 1 - General Ulcer Assessment Start: 09/23/23 09:31 Freq: Status: Active Protocol: KRANTHI Activity Type Activity Date Activity User E-sign Co-sign Detail Recorded Client Recorded Date Recorded By Document 09/23/23 09:31 [facility] Desktop 09/23/23 09:38 [facility] 09/23/23 09:31 - Today's Visit Information Type of service Follow-up Visit (Physician/[employer] ) Arrival Mode Wheelchair Transfer Assistance Will Lift Accompanied by Patient Identification Verified (Name & Yes ) Patient Requires Transmission-Based No Precautions Height and Weight Body Mass Index (BMI) 25.9 BMI Classification Overweight Vital Signs Temperature (97.8 F-99.1 F) 96.6 F L Temperature Source Temporal Pulse Rate (60-100) 57 L Pulse Location Monitor Respiratory Rate (12-18) 16 Respiratory rate source Observation Oxygen Delivery Method Room Air Blood Pressure (90/60-120/80) 150/63 H Blood Pressure Mean (mm Hg) 92 Source Monitor Position Sitting Blood Pressure Location Left Arm History Since Last Visit- (Skip if this is Patient's initial visit) Have you changed medications since your No last visit? Any new allergies or adverse reactions No Had a fall/change in ADL's that may No increase risk of falls Signs or symptoms of abuse and/or No neglect since last visit Have you been in the hospital since your No last visit? Has dressing in place as prescribed Yes Has compression in place as prescribed N/A Has offloadiing in place as prescribed N/A Experienced any changes in pain level or No management Left Footwear Slipper Right Footwear Slipper Pain Scale: 0-10 Numeric Is Patient Pain Free? Yes WC - Nurse 1 - General Ulcer Measurement Start: 09/23/23 09:31 Freq: Status: Active Protocol: Activity Type Activity Date Activity User E-sign Co-sign Detail Recorded Client Recorded Date Recorded By Document 09/23/23 09:31 [facility] Desktop 09/23/23 09:38 [facility] 09/23/23 09:31 Wound Center Nurse 1 #1 Sacral cluster -Combined with other wound No -Current Size (cm) - Length 0.1 -Current Size (cm) - Width 0.1 -Current Size (cm) - Depth 0.2 -Total Square Cm 0.01 -Epithelialization Small 1-33% -Tunneling No -Undermining/Tunneling No -Circular Undermining No -Exudate Amt Medium -Exudate Type Serosanguineous -Wound Margin Distinct, Outline Attached -Granulation Amt Large (67-100%) -Granulation Quality [place] -Slough/Fibrin No -Necrosis Amt None Present (0 %) -Texture (Laney-wound Skin Appearance) Assessed,Callus ,Scarring -Moisture (Laney-wound Skin Appearance) Assessed -Color (Laney-wound Skin Appearance) Assessed -Temperature (Lanye-wound Skin No Abnormality Appearance) (Pt Warm) -Tenderness on Palpation (Laney-wound No Skin Appearance) -Ulcer Cleansing Rinsed/ Irrigated with Saline -Foul Odor after Cleansing No -Anesthetic Used 5% Lidocaine Gel NICOLAS - Nurse 2 - General Ulcer CM Notes Start: 09/23/23 09:31 Freq: Status: Active Protocol: Activity Type Activity Date Activity User E-sign Co-sign Detail Recorded Client Recorded Date Recorded By Document 09/23/23 10:33 Laptop 09/23/23 10:34 09/23/23 10:33 Wound Center Nurse 2 -Time 10:33 -Correct Patient Yes -Correct Side, Site, Position Yes -Correct Procedure Yes -Procedure Performed Yes -Type of Procedure Debridement -Clinical Debridement Muscle / Fascia -Tissue Removed Muscle -Post Debridement (cm) - Length 1.0 -Post Debridement (cm) - Width 1.5 -Post Debridement (cm) - Depth 0.2 -Total Square (Post) (cm) 1.50 -Area of Debridement (cm) - Length 1.0 -Area of Debridement (cm) - Width 1.5 -Total Square (Area) (cm) 1.50 -Tunneling No -Undermining/Tunneling No -Circular Undermining No -Wound/Ulcer Outcome Not Healed -Ulcer Cleansing Rinsed/ Irrigated with Saline -Foul Odor after Cleansing No -Bioengineered Tissue No -Bleeding Controlled with Pressure -Treatment Response Procedure Tolerated Well -Offloading No -Debridement - Muscle / Fascia, 1st Yes 20sq cm Pain Scale: 0-10 Numeric Is Patient Pain Free? Yes - Nurse 3 - General Ulcer D/C NN Start: 09/23/23 09:31 Freq: Status: Active Protocol: Activity Type Activity Date Activity User E-sign Co-sign Detail Recorded Client Recorded Date Recorded By Document 09/23/23 10:41 DL Desktop 09/23/23 10:46 DL 09/23/23 10:41 Wound Care Center Nurse 3 #1 Sacral cluster -Ulcer Cleansing Rinsed/ Irrigated with Saline -Foul Odor after Cleansing No -Primary Dressing Applied Fibracol Plus 4x4,Mepilex Border -Fibracol Plus 4x4 1 -Mepilex Border 1 Treatment Response Procedure Tolerated Well Pain Scale: 0-10 Numeric Is Patient Pain Free? Yes - Visit Discharge Discharge Condition Stable Ambulatory Status Wheelchair Transportation Private Auto Assessment/Plan Assessment/Plan (1) Pressure ulcer of sacral region, stage 4: CODE(S): L89.154 - Pressure ulcer of sacral region, stage 4 (2) Paraplegia: CODE(S): G82.20 - Paraplegia, unspecified (3) Osteomyelitis of pelvis: CODE(S): M86.9 - Osteomyelitis, unspecified (4) Large B-cell lymphoma: CODE(S): C85.10 - Unspecified B-cell lymphoma, unspecified site (5) Chronic indwelling Gutierrez catheter: CODE(S): Z97.8 - Presence of other specified devices PLAN: Plan Wound Care - Moistened Fibracol+ covered by [place] SAP or gauze daily. Encourage increased protein intake to help with wound healing. Her family does a really nice job with her wound care. They turn her every 2 hours. Patient has dense scar tissue at the edges of the ulcer as well as the base of the ulcer which can slow down healing. Aggressive debridement in the Wound Center can sometimes be enough to keep the dense scar tissue from forming. When it is not enough, then the next step is operative debridement in the hospital. Sometime a maintenance operative debridement can jump start the healing process. Surgery would be done under general anesthesia with a surgical observation overnight stay in the hospital. Will send soft tissue and bone to Pathology for analysis to rule out carcinoma and to evaluate for osteomyelitis. Will send soft tissue and bone to Microbiology for culture. A positive culture will necessitate antibiotic therapy. Patient was informed of the risks and complications of the procedure including alternatives to surgery. These were discussed with the patient personally. Patient voices understanding and wishes to proceed. Until the surgery is done, follow up 2 weeks for continued wound care.
[2023-10-07 10:38] VITALS: BP 154/65; PULSE 59; RESP 18; TEMP 36.1; BMI 25.9
--- NOTE | 2023-10-07 11:50 | PCM.WC.PN ---
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 She had progressive paraplegia. She went to TCU for acute rehab for this progressive paraplegia. During that time she had worsening sacral pressure sore with skin necrosis. Surgery 05/15/21 - Excision necrotic sacral pressure sore, Stage IV, with partial ostectomy for osteomyelitis. Pathology from surgery on 05/15/21 of bone showed acute osteomyelitis. Operative culture, soft tissue, from 05/15/21 was positive for Escherichia coli, Klebsiella, Vanc. Resist. E. gallinarum, Vanc. Resist. E. faecalis. Operative culture, bone, from 05/15/21 was positive for Escherichia coli, Vanc. Resist. E. faecalis, Vanc. Resist. E. gallinarum. She was treated with Meropenem and Vancomycin. Linezolid was started after Vancomycin was stopped. Radiation from 05/17/21 - 06/12/21 18 treatments to T4-T7 area including paraspinal region. 06/06/21- Laparoscopic sigmoid colectomy with creation of end colostomy for fecal diversion. Wound culture from 07/29/23 was positive for Staphylococcus epidermidis and Corynebacterium striatum. She was treated with Augmentin. Today she denies any fever. Her appetite is ok. Progress of Wound: Ulcer is stable. Continues to have some scar tissue surrounding the ulcer. Objective Data Objective Data Vital Signs: Vital Signs Temp Pulse Resp BP O2 Del Method 97.0 F L 59 L 18 154/65 H Room Air 10/07/23 10:38 10/07/23 10:38 10/07/23 10:38 10/07/23 10:38 10/07/23 10:38 Oxygen Delivery Method Room Air Weight: 155 lb 11.464 oz Body Mass Index (BMI) 25.9 Charges/Coding Procedures Integumentary 111xxx-113xx: [id number] Casie musc/fascia 20 sq cm/< Debridement Note Debridement Note Wound debrided: #1 Sacral area. Laterality: Not Applicable Wound Grade/Stage: IV. Type of Debridement: Excisional debridement Anesthesia Used: 4% Lidocaine Solution Depth: Down to and including healthy tissue, in the subcutaneous layer and to muscle Percentage of wound debrided: 100 Instrument Used: 5mm curette Tissue Removed: subcutaneous tissue and slough into the muscle. Severity: Fat Layer Exposed (muscle is exposed. Bone is palpable but not exposed and not debrided.) Amount of bleeding with debridement: Mild Bleeding Controlled with: Pressure and Compression and gauze Patient tolerated procedure: Patient tolerated procedure well Post-Debridement Measurements and Additional Note: Post-Debridement Measurements/Treatment WC - Nurse 1 - General Ulcer Assessment Start: 09/23/23 09:31 Freq: Status: Active Protocol: NICOLAS.[employer] Activity Type Activity Date Activity User E-sign Co-sign Detail Recorded Client Recorded Date Recorded By Document 09/23/23 09:31 [employer] Desktop 09/23/23 09:38 BMF Document 10/07/23 10:38 KW Desktop 10/07/23 10:49 KW 09/23/23 10/07/23 09:31 10:38 - Today's Visit Information Type of service Follow-up Visit Follow-up Visit (Physician/PUBLIC HEALTH DIETITIAN (Physician/PUBLIC HEALTH DIETITIAN ) ) Arrival Mode Wheelchair Wheelchair Transfer Assistance Will Lift Will Lift Accompanied by daughter and Patient Identification Verified (Name & Yes Yes ) Patient Requires Transmission-Based No Precautions Height and Weight Body Mass Index (BMI) 25.9 25.9 BMI Classification Overweight Overweight Vital Signs Temperature (97.8 F-99.1 F) 96.6 F L 97.0 F L Temperature Source Temporal Temporal Pulse Rate (60-100) 57 L 59 L Pulse Location Monitor Monitor Respiratory Rate (12-18) 16 18 Respiratory rate source Observation Monitor Oxygen Delivery Method Room Air Room Air Blood Pressure (90/60-120/80) 150/63 H 154/65 H Blood Pressure Mean (mm Hg) 92 94 Source Monitor Monitor Position Sitting Sitting Blood Pressure Location Left Arm Left Arm History Since Last Visit- (Skip if this is Patient's initial visit) Have you changed medications since your No No last visit? Any new allergies or adverse reactions No No Had a fall/change in ADL's that may No No increase risk of falls Signs or symptoms of abuse and/or No No neglect since last visit Have you been in the hospital since your No No last visit? Has dressing in place as prescribed Yes Yes Has compression in place as prescribed N/A N/A Has offloadiing in place as prescribed N/A N/A Experienced any changes in pain level or No No management Left Footwear Slipper Regular Shoe Right Footwear Slipper Regular Shoe Pain Scale: 0-10 Numeric Is Patient Pain Free? Yes Yes NICOLAS - Nurse 1 - General Ulcer Measurement Start: 09/23/23 09:31 Freq: Status: Active Protocol: Activity Type Activity Date Activity User E-sign Co-sign Detail Recorded Client Recorded Date Recorded By Document 09/23/23 09:31 BM Desktop 09/23/23 09:38 BM Document 10/07/23 10:38 KW Desktop 10/07/23 10:49 KW 09/23/23 10/07/23 09:31 10:38 Wound Center Nurse 1 #1 Sacral cluster -Combined with other wound No -Current Size (cm) - Length 0.1 1.0 -Current Size (cm) - Width 0.1 1.0 -Current Size (cm) - Depth 0.2 0.2 -Total Square Cm 0.01 1.00 -Epithelialization Small 1-33% -Tunneling No -Undermining/Tunneling No -Circular Undermining No -Exudate Amt Medium Small -Exudate Type Serosanguineous Serosanguineous -Wound Margin Distinct, Thickened Outline Attached -Granulation Amt Large (67-100%) Medium (34-66%) -Granulation Quality [place] Red -Slough/Fibrin No -Necrosis Amt None Present (0 Small (1-33%) %) -Necrotic Tissue Type Adherent Slough -Texture (Laney-wound Skin Appearance) Assessed,Callus Assessed ,Scarring -Moisture (Laney-wound Skin Appearance) Assessed Assessed -Color (Laney-wound Skin Appearance) Assessed Assessed -Temperature (Laney-wound Skin No Abnormality No Abnormality Appearance) (Pt Warm) (Pt Warm) -Tenderness on Palpation (Laney-wound No Skin Appearance) -Ulcer Cleansing Rinsed/ Soap and Water Irrigated with Saline -Foul Odor after Cleansing No No -Anesthetic Used 5% Lidocaine 5% Lidocaine Gel Gel Lower Limb Edema Present NA NICOLAS - Nurse 2 - General Ulcer CM Notes Start: 09/23/23 09:31 Freq: Status: Active Protocol: Activity Type Activity Date Activity User E-sign Co-sign Detail Recorded Client Recorded Date Recorded By Document 09/23/23 10:33 Laptop 09/23/23 10:34 Document 10/07/23 11:07 Laptop 10/07/23 11:11 JF 09/23/23 10/07/23 10:33 11:07 Wound Center Nurse 2 #1 Sacral cluster -Time 10:33 11:08 -Correct Patient Yes Yes -Correct Side, Site, Position Yes Yes -Correct Procedure Yes Yes -Procedure Performed Yes Yes -Type of Procedure Debridement Debridement -Clinical Debridement Muscle / Fascia Muscle / Fascia -Tissue Removed Muscle Muscle,Fascia -Post Debridement (cm) - Length 1.0 1.2 -Post Debridement (cm) - Width 1.5 1.6 -Post Debridement (cm) - Depth 0.2 0.3 -Total Square (Post) (cm) 1.50 1.92 -Area of Debridement (cm) - Length 1.0 1.2 -Area of Debridement (cm) - Width 1.5 1.6 -Total Square (Area) (cm) 1.50 1.92 -Tunneling No No -Undermining/Tunneling No No -Circular Undermining No No -Wound/Ulcer Outcome Not Healed Not Healed -Ulcer Cleansing Rinsed/ Rinsed/ Irrigated with Irrigated with Saline Saline -Foul Odor after Cleansing No No -Bioengineered Tissue No No -Bleeding Controlled with Pressure Pressure -Treatment Response Procedure Procedure Tolerated Well Tolerated Well -Offloading No No -Debridement - Muscle / Fascia, 1st Yes Yes 20sq cm Pain Scale: 0-10 Numeric Is Patient Pain Free? Yes Yes WC - Nurse 3 - General Ulcer D/C NN Start: 09/23/23 09:31 Freq: Status: Active Protocol: Activity Type Activity Date Activity User E-sign Co-sign Detail Recorded Client Recorded Date Recorded By Document 09/23/23 10:41 DL Desktop 09/23/23 10:46 DL Document 10/07/23 11:16 KW Desktop 10/07/23 11:16 KW 09/23/23 10/07/23 10:41 11:16 Wound Care Center Nurse 3 #1 Sacral cluster -Ulcer Cleansing Rinsed/ Rinsed/ Irrigated with Irrigated with Saline Saline -Foul Odor after Cleansing No -Primary Dressing Applied Fibracol Plus Fibracol Plus 4x4,Mepilex 4x4,Mepilex Border Border -Fibracol Plus 4x4 1 1 -Mepilex Border 1 1 Treatment Response Procedure Tolerated Well Pain Scale: 0-10 Numeric Is Patient Pain Free? Yes Yes WC - Visit Discharge Discharge Condition Stable Stable Ambulatory Status Wheelchair Wheelchair Transportation Private Auto Private Auto Medication Reconcilliation completed & No provided to patient/care provider Clinical Summary of Care Provided Yes Assessment/Plan Assessment/Plan (1) Pressure ulcer of sacral region, stage 4: CODE(S): L89.154 - Pressure ulcer of sacral region, stage 4 (2) Paraplegia: CODE(S): G82.20 - Paraplegia, unspecified (3) Osteomyelitis of pelvis: CODE(S): M86.9 - Osteomyelitis, unspecified (4) Large B-cell lymphoma: CODE(S): C85.10 - Unspecified B-cell lymphoma, unspecified site (5) Chronic indwelling Gutierrez catheter: CODE(S): Z97.8 - Presence of other specified devices PLAN: Plan Wound Care - Moistened Fibracol+ covered by [place] SAP or gauze daily. Encourage increased protein intake to help with wound healing. Her family does a really nice job with her wound care. They turn her every 2 hours. Patient has dense scar tissue at the edges of the ulcer as well as the base of the ulcer which can slow down healing. Aggressive debridement in the Wound Center can sometimes be enough to keep the dense scar tissue from forming. When it is not enough, then the next step is operative debridement in the hospital. Sometime a maintenance operative debridement can jump start the healing process. Surgery would be done under general anesthesia with a surgical observation overnight stay in the hospital. Will send soft tissue and bone to Pathology for analysis to rule out carcinoma and to evaluate for osteomyelitis. Will send soft tissue and bone to Microbiology for culture. A positive culture will necessitate antibiotic therapy. Patient was informed of the risks and complications of the procedure including alternatives to surgery. These were discussed with the patient personally. Patient voices understanding and wishes to proceed. Follow up 4 weeks due to the holidays.
== END 2023-10-20 23:59 | disposition home or self-care (01) ==
LOC: WC 10:30
PROVIDERS: PCP Student in an Organized Health Care Education/Training Program; Visit Provider Nurse Practitioner Family
DX: L89.154 Pressure ulcer of sacral region, stage 4 (principal); G82.20 Paraplegia, unspecified; C85.10 Unspecified B-cell lymphoma, unspecified site; M86.10 Other acute osteomyelitis, unspecified site; Z92.3 Personal history of irradiation
CPT/HCPCS: 11043

== ENCOUNTER 2023-11-18 10:30 | Outpatient (RCR) | payer OTHER, SELFPAY ==
[2023-10-21 00:08] VITALS: BP 154/65; PULSE 59; RESP 18; TEMP 36.1; BMI 25.9
[2023-11-04 09:51] VITALS: BP 150/55; PULSE 56; RESP 20; TEMP 36.3; BMI 25.9
--- NOTE | 2023-11-04 11:03 | PCM.WC.PN ---
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 She had progressive paraplegia. She went to TCU for acute rehab for this progressive paraplegia. During that time she had worsening sacral pressure sore with skin necrosis. Surgery 05/15/21 - Excision necrotic sacral pressure sore, Stage IV, with partial ostectomy for osteomyelitis. Pathology from surgery on 05/15/21 of bone showed acute osteomyelitis. Operative culture, soft tissue, from 05/15/21 was positive for Escherichia coli, Klebsiella, Vanc. Resist. E. gallinarum, Vanc. Resist. E. faecalis. Operative culture, bone, from 05/15/21 was positive for Escherichia coli, Vanc. Resist. E. faecalis, Vanc. Resist. E. gallinarum. She was treated with Meropenem and Vancomycin. Linezolid was started after Vancomycin was stopped. Radiation from 05/17/21 - 06/12/21 18 treatments to T4-T7 area including paraspinal region. 06/06/21- Laparoscopic sigmoid colectomy with creation of end colostomy for fecal diversion. Wound culture from 07/29/23 was positive for Staphylococcus epidermidis and Corynebacterium striatum. She was treated with Augmentin. Today she denies any fever. Her appetite is ok. Progress of Wound: Ulcer is smaller. She continues to have some scar tissue surrounding the ulcer. Objective Data Objective Data Vital Signs: Vital Signs Temp Pulse Resp BP 97.4 F L 56 L 20 H 150/55 H 11/04/23 09:51 11/04/23 09:51 11/04/23 09:51 11/04/23 09:51 Weight: 155 lb 11.464 oz Body Mass Index (BMI) 25.9 Charges/Coding Procedures Integumentary 111xxx-113xx: [id number] Casie musc/fascia 20 sq cm/< Debridement Note Debridement Note Wound debrided: #1 Sacral area. Laterality: Not Applicable Wound Grade/Stage: IV. Type of Debridement: Excisional debridement Anesthesia Used: 4% Lidocaine Solution Depth: Down to and including healthy tissue, in the subcutaneous layer and to muscle Percentage of wound debrided: 100 Instrument Used: 3mm curette Tissue Removed: subcutaneous tissue and slough into the muscle. Severity: Fat Layer Exposed (muscle is exposed. Bone is palpable but not exposed and not debrided.) Amount of bleeding with debridement: Mild Bleeding Controlled with: Pressure and Compression and gauze Patient tolerated procedure: Patient tolerated procedure well Post-Debridement Measurements and Additional Note: Post-Debridement Measurements/Treatment - Nurse 1 - General Ulcer Assessment Start: 11/04/23 09:50 Freq: Status: Active Protocol: KRANTHI Activity Type Activity Date Activity User E-sign Co-sign Detail Recorded Client Recorded Date Recorded By Document 11/04/23 09:51 DL Desktop 11/04/23 10:01 DL 11/04/23 09:51 WC - Today's Visit Information Type of service Follow-up Visit (Physician/COMMUNICATION CONSULTANT ) Arrival Mode Wheelchair Transfer Assistance Will Lift, Manual Transfer Assist (Other) x3 Patient Identification Verified (Name & Yes ) Patient Requires Transmission-Based No Precautions Height and Weight Body Mass Index (BMI) 25.9 BMI Classification Overweight Vital Signs Temperature (97.8 F-99.1 F) 97.4 F L Temperature Source Temporal Pulse Rate (60-100) 56 L Pulse Location Monitor Respiratory Rate (12-18) 20 H Respiratory rate source Observation Blood Pressure (90/60-120/80) 150/55 H Blood Pressure Mean (mm Hg) 86 Source Monitor History Since Last Visit- (Skip if this is Patient's initial visit) Have you changed medications since your No last visit? Any new allergies or adverse reactions No Had a fall/change in ADL's that may No increase risk of falls Signs or symptoms of abuse and/or No neglect since last visit Have you been in the hospital since your No last visit? Has dressing in place as prescribed Yes Has compression in place as prescribed N/A Has offloadiing in place as prescribed Yes Experienced any changes in pain level or No management Pain Scale: 0-10 Numeric Is Patient Pain Free? Yes - Nurse 1 - General Ulcer Measurement Start: 11/04/23 09:50 Freq: Status: Active Protocol: Activity Type Activity Date Activity User E-sign Co-sign Detail Recorded Client Recorded Date Recorded By Document 11/04/23 09:51 DL Desktop 11/04/23 10:01 DL 11/04/23 09:51 Wound Center Nurse 1 #1 Sacral cluster -Current Size (cm) - Length 0.2 -Current Size (cm) - Width 0.4 -Current Size (cm) - Depth 0.1 -Total Square Cm 0.08 -Photo Taken Yes -Exudate Amt Small -Exudate Type Serosanguineous -Wound Margin Thickened -Granulation Amt Large (67-100%) -Granulation Quality Pale -Necrosis Amt None Present (0 %) -Structure Exposed N/A -Texture (Laney-wound Skin Appearance) Scarring -Moisture (Laney-wound Skin Appearance) Maceration -Color (Laney-wound Skin Appearance) No Abnormality -Temperature (Laney-wound Skin No Abnormality Appearance) (Pt Warm) -Tenderness on Palpation (Laney-wound No Skin Appearance) -Ulcer Cleansing Soap and Water -Foul Odor after Cleansing No -Anesthetic Used 5% Lidocaine Gel -Wound Comment(s) assessed and measured by Ruslan Camacho. NICOLAS - Nurse 2 - General Ulcer CM Notes Start: 11/04/23 09:50 Freq: Status: Active Protocol: Activity Type Activity Date Activity User E-sign Co-sign Detail Recorded Client Recorded Date Recorded By Document 11/04/23 10:11 Laptop 11/04/23 10:15 11/04/23 10:11 Wound Center Nurse 2 -Time 10:14 -Correct Patient Yes -Correct Side, Site, Position Yes -Correct Procedure Yes -Procedure Performed Yes -Type of Procedure Debridement -Clinical Debridement Muscle / Fascia -Tissue Removed Muscle,Fascia -Post Debridement (cm) - Length 1.0 -Post Debridement (cm) - Width 1.0 -Post Debridement (cm) - Depth 0.1 -Total Square (Post) (cm) 1.00 -Area of Debridement (cm) - Length 1.0 -Area of Debridement (cm) - Width 1.0 -Total Square (Area) (cm) 1.00 -Tunneling No -Undermining/Tunneling No -Circular Undermining No -Wound/Ulcer Outcome Not Healed -Ulcer Cleansing Rinsed/ Irrigated with Saline -Bioengineered Tissue No -Bleeding Controlled with Pressure -Treatment Response Procedure Tolerated Well -Offloading No -Debridement - Subq, 1st 20sq cm No -Debridement - Muscle / Fascia, 1st Yes 20sq cm Pain Scale: 0-10 Numeric Is Patient Pain Free? Yes NICOLAS - Nurse 3 - General Ulcer D/C NN Start: 11/04/23 09:50 Freq: Status: Active Protocol: Activity Type Activity Date Activity User E-sign Co-sign Detail Recorded Client Recorded Date Recorded By Document 11/04/23 10:19 DL Desktop 11/04/23 10:21 DL 11/04/23 10:19 Wound Care Center Nurse 3 #1 Sacral cluster -Ulcer Cleansing Rinsed/ Irrigated with Saline -Foul Odor after Cleansing No -Primary Dressing Applied C Hydrogel ($), Fibracol Plus 4x4,Mepilex Border -Other Dressing hydrogel today -Fibracol Plus 4x4 1 -Mepilex Border 1 Treatment Response Procedure Tolerated Well Pain Scale: 0-10 Numeric Is Patient Pain Free? Yes WC - Visit Discharge Discharge Condition Stable Ambulatory Status Wheelchair Transportation family Notes: dressing applied per Avel Combs today in clinic. Assessment/Plan Assessment/Plan (1) Pressure ulcer of sacral region, stage 4: CODE(S): L89.154 - Pressure ulcer of sacral region, stage 4 (2) Paraplegia: CODE(S): G82.20 - Paraplegia, unspecified (3) Osteomyelitis of pelvis: CODE(S): M86.9 - Osteomyelitis, unspecified (4) Large B-cell lymphoma: CODE(S): C85.10 - Unspecified B-cell lymphoma, unspecified site (5) Chronic indwelling Gutierrez catheter: CODE(S): Z97.8 - Presence of other specified devices PLAN: Plan Wound Care - Alternate collagen hydrogel covered with [place] SAP with moistened Fibracol+ covered by [place] SAP or gauze daily. Encourage increased protein intake to help with wound healing. Her family does a really nice job with her wound care. They turn her every 2 hours. Patient has dense scar tissue at the edges of the ulcer as well as the base of the ulcer which can slow down healing. Will try seeing her every 2 weeks to see if this helps control the scar tissue. Follow up [address] Maciel's previous note: Patient has dense scar tissue at the edges of the ulcer as well as the base of the ulcer which can slow down healing. Aggressive debridement in the Wound Center can sometimes be enough to keep the dense scar tissue from forming. When it is not enough, then the next step is operative debridement in the hospital. Sometime a maintenance operative debridement can jump start the healing process. Surgery would be done under general anesthesia with a surgical observation overnight stay in the hospital. Will send soft tissue and bone to Pathology for analysis to rule out carcinoma and to evaluate for osteomyelitis. Will send soft tissue and bone to Microbiology for culture. A positive culture will necessitate antibiotic therapy. Patient was informed of the risks and complications of the procedure including alternatives to surgery. These were discussed with the patient personally. Patient voices understanding and wishes to proceed.
[2023-11-18 10:21] VITALS: BP 147/66; PULSE 58; RESP 16; TEMP 36.1; BMI 25.9
--- NOTE | 2023-11-18 10:58 | PCM.WC.PN ---
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 She had progressive paraplegia. She went to TCU for acute rehab for this progressive paraplegia. During that time she had worsening sacral pressure sore with skin necrosis. Surgery 05/15/21 - Excision necrotic sacral pressure sore, Stage IV, with partial ostectomy for osteomyelitis. Pathology from surgery on 05/15/21 of bone showed acute osteomyelitis. Operative culture, soft tissue, from 05/15/21 was positive for Escherichia coli, Klebsiella, Vanc. Resist. E. gallinarum, Vanc. Resist. E. faecalis. Operative culture, bone, from 05/15/21 was positive for Escherichia coli, Vanc. Resist. E. faecalis, Vanc. Resist. E. gallinarum. She was treated with Meropenem and Vancomycin. Linezolid was started after Vancomycin was stopped. Radiation from 05/17/21 - 06/12/21 18 treatments to T4-T7 area including paraspinal region. 06/06/21- Laparoscopic sigmoid colectomy with creation of end colostomy for fecal diversion. Wound culture from 07/29/23 was positive for Staphylococcus epidermidis and Corynebacterium striatum. She was treated with Augmentin. Today she denies any fever. Her appetite is ok. Progress of Wound: Ulcer is smaller. There is less thickened scar tissue surrounding the ulcer. Objective Data Objective Data Vital Signs: Vital Signs Temp Pulse Resp BP O2 Del Method 96.9 F L 58 L 16 147/66 H Room Air 11/18/23 10:21 11/18/23 10:21 11/18/23 10:11/18/23 10:11/18/23 10:21 Oxygen Delivery Method Room Air Weight: 155 lb 11.464 oz Body Mass Index (BMI) 25.9 Charges/Coding Procedures Integumentary [id number]: [id number] Casie musc/fascia 20 sq cm/< Debridement Note Debridement Note Wound debrided: #1 Sacral area. Laterality: Not Applicable Wound Grade/Stage: IV. Type of Debridement: Excisional debridement Anesthesia Used: 4% Lidocaine Solution Depth: Down to and including healthy tissue, in the subcutaneous layer and to muscle Percentage of wound debrided: 100 Instrument Used: 3mm curette Tissue Removed: subcutaneous tissue and slough into the muscle. Severity: Fat Layer Exposed (muscle is exposed. Bone is palpable but not exposed and not debrided.) Amount of bleeding with debridement: Mild Bleeding Controlled with: Pressure and Compression and gauze Patient tolerated procedure: Patient tolerated procedure well Post-Debridement Measurements and Additional Note: Post-Debridement Measurements/Treatment WC - Nurse 1 - General Ulcer Assessment Start: 11/04/23 09:50 Freq: Status: Active Protocol: [employer]AS[employer] Activity Type Activity Date Activity User E-sign Co-sign Detail Recorded Client Recorded Date Recorded By Document 11/04/23 09:51 DL Desktop 11/04/23 10:01 DL Document 11/18/23 10:21 BMF Desktop 11/18/23 10:29 BMF 11/04/23 11/18/23 09:51 10:21 WC - Today's Visit Information Type of service Follow-up Visit Follow-up Visit (Physician/HORTICULTURE TEACHER (Physician/HORTICULTURE TEACHER ) ) Arrival Mode Wheelchair Wheelchair Transfer Assistance Will Lift, Will Lift Manual Transfer Assist (Other) x3 2 Patient Identification Verified (Name & Yes Yes ) Patient Requires Transmission-Based No No Precautions Height and Weight Body Mass Index (BMI) 25.9 25.9 BMI Classification Overweight Overweight Vital Signs Temperature (97.8 F-99.1 F) 97.4 F L 96.9 F L Temperature Source Temporal Temporal Pulse Rate (60-100) 56 L 58 L Pulse Location Monitor Monitor Respiratory Rate (12-18) 20 H 16 Respiratory rate source Observation Observation Oxygen Delivery Method Room Air Blood Pressure (90/60-120/80) 150/55 H 147/66 H Blood Pressure Mean (mm Hg) 86 93 Source Monitor Monitor Position Sitting Blood Pressure Location Right Arm History Since Last Visit- (Skip if this is Patient's initial visit) Have you changed medications since your No No last visit? Any new allergies or adverse reactions No No Had a fall/change in ADL's that may No No increase risk of falls Signs or symptoms of abuse and/or No No neglect since last visit Have you been in the hospital since your No No last visit? Has dressing in place as prescribed Yes Yes Has compression in place as prescribed N/A N/A Has offloadiing in place as prescribed Yes N/A Experienced any changes in pain level or No No management Left Footwear Slipper Right Footwear Slipper Pain Scale: 0-10 Numeric Is Patient Pain Free? Yes Yes NICOLAS - Nurse 1 - General Ulcer Measurement Start: 11/04/23 09:50 Freq: Status: Active Protocol: Activity Type Activity Date Activity User E-sign Co-sign Detail Recorded Client Recorded Date Recorded By Document 11/04/23 09:51 DL Desktop 11/04/23 10:01 DL Document 11/18/23 10:21 BMF Desktop 11/18/23 10:29 BMF 11/04/23 11/18/23 09:51 10:21 Wound Center Nurse 1 #1 Sacral cluster -Combined with other wound No -Current Size (cm) - Length 0.2 0.4 -Current Size (cm) - Width 0.4 0.2 -Current Size (cm) - Depth 0.1 0.1 -Total Square Cm 0.08 0.08 -Date of Last Picture (Recall this 11/18/23 field) -Photo Taken Yes Yes -Epithelialization Small 1-33% -Tunneling No -Undermining/Tunneling No -Circular Undermining No -Exudate Amt Small Medium -Exudate Type Serosanguineous Serosanguineous -Wound Margin Thickened Distinct, Outline Attached -Granulation Amt Large (67-100%) Large (67-100%) -Granulation Quality Pale [place] -Slough/Fibrin Yes -Necrosis Amt None Present (0 Small (1-33%) %) -Necrotic Tissue Type Adherent Slough -Structure Exposed N/A -Texture (Laney-wound Skin Appearance) Scarring Assessed, Scarring -Moisture (Laney-wound Skin Appearance) Maceration Assessed -Color (Laney-wound Skin Appearance) No Abnormality Assessed -Temperature (Laney-wound Skin No Abnormality No Abnormality Appearance) (Pt Warm) (Pt Warm) -Tenderness on Palpation (Laney-wound No No Skin Appearance) -Ulcer Cleansing Soap and Water Rinsed/ Irrigated with Saline -Foul Odor after Cleansing No No -Anesthetic Used 5% Lidocaine 5% Lidocaine Gel Gel -Wound Comment(s) assessed and measured by Ruslan VALENZUELA - Nurse 2 - General Ulcer CM Notes Start: 11/04/23 09:50 Freq: Status: Active Protocol: Activity Type Activity Date Activity User E-sign Co-sign Detail Recorded Client Recorded Date Recorded By Document 11/04/23 10:11 Laptop 11/04/23 10:15 Document 11/18/23 10:47 Laptop 11/18/23 10:49 11/04/23 11/18/23 10:11 10:47 Wound Center Nurse 2 #1 Sacral cluster -Time 10:14 10:47 -Correct Patient Yes Yes -Correct Side, Site, Position Yes Yes -Correct Procedure Yes Yes -Procedure Performed Yes Yes -Type of Procedure Debridement Debridement -Clinical Debridement Muscle / Fascia Muscle / Fascia -Tissue Removed Muscle,Fascia Muscle -Post Debridement (cm) - Length 1.0 0.4 -Post Debridement (cm) - Width 1.0 0.5 -Post Debridement (cm) - Depth 0.1 0.1 -Total Square (Post) (cm) 1.00 0.20 -Area of Debridement (cm) - Length 1.0 0.4 -Area of Debridement (cm) - Width 1.0 0.5 -Total Square (Area) (cm) 1.00 0.20 -Tunneling No No -Undermining/Tunneling No No -Circular Undermining No No -Wound/Ulcer Outcome Not Healed Not Healed -Ulcer Cleansing Rinsed/ Rinsed/ Irrigated with Irrigated with Saline Saline -Foul Odor after Cleansing No -Bioengineered Tissue No No -Bleeding Controlled with Pressure Pressure -Treatment Response Procedure Procedure Tolerated Well Tolerated Well -Offloading No No -Debridement - Subq, 1st 20sq cm No -Debridement - Muscle / Fascia, 1st Yes Yes 20sq cm Pain Scale: 0-10 Numeric Is Patient Pain Free? Yes Yes - Nurse 3 - General Ulcer D/C NN Start: 11/04/23 09:50 Freq: Status: Active Protocol: Activity Type Activity Date Activity User E-sign Co-sign Detail Recorded Client Recorded Date Recorded By Document 11/04/23 10:19 DL Desktop 11/04/23 10:21 DL 11/04/23 10:19 Wound Care Center Nurse 3 #1 Sacral cluster -Ulcer Cleansing Rinsed/ Irrigated with Saline -Foul Odor after Cleansing No -Primary Dressing Applied C Hydrogel ($), Fibracol Plus 4x4,Mepilex Border -Other Dressing hydrogel today -Fibracol Plus 4x4 1 -Mepilex Border 1 Treatment Response Procedure Tolerated Well Pain Scale: 0-10 Numeric Is Patient Pain Free? Yes WC - Visit Discharge Discharge Condition Stable Ambulatory Status Wheelchair Transportation family Notes: dressing applied per Avel Combs today in clinic. Assessment/Plan Assessment/Plan (1) Pressure ulcer of sacral region, stage 4: CODE(S): L89.154 - Pressure ulcer of sacral region, stage 4 (2) Paraplegia: CODE(S): G82.20 - Paraplegia, unspecified (3) Osteomyelitis of pelvis: CODE(S): M86.9 - Osteomyelitis, unspecified (4) Large B-cell lymphoma: CODE(S): C85.10 - Unspecified B-cell lymphoma, unspecified site (5) Chronic indwelling Gutierrez catheter: CODE(S): Z97.8 - Presence of other specified devices PLAN: Plan Wound Care - Alternate collagen hydrogel covered with Reading SAP with moistened Fibracol+ covered by Reading SAP or gauze daily. Encourage increased protein intake to help with wound healing. Her family does a really nice job with her wound care. They turn her every 2 hours. Patient has dense scar tissue at the edges of the ulcer as well as the base of the ulcer which can slow down healing. Will try seeing her every 2 weeks to see if this helps control the scar tissue. Follow up [address] Maciel's previous note: Patient has dense scar tissue at the edges of the ulcer as well as the base of the ulcer which can slow down healing. Aggressive debridement in the Wound Center can sometimes be enough to keep the dense scar tissue from forming. When it is not enough, then the next step is operative debridement in the hospital. Sometime a maintenance operative debridement can jump start the healing process. Surgery would be done under general anesthesia with a surgical observation overnight stay in the hospital. Will send soft tissue and bone to Pathology for analysis to rule out carcinoma and to evaluate for osteomyelitis. Will send soft tissue and bone to Microbiology for culture. A positive culture will necessitate antibiotic therapy. Patient was informed of the risks and complications of the procedure including alternatives to surgery. These were discussed with the patient personally. Patient voices understanding and wishes to proceed.
== END 2023-11-20 23:59 | disposition home or self-care (01) ==
LOC: WC 10:30
PROVIDERS: PCP Student in an Organized Health Care Education/Training Program; Visit Provider Nurse Practitioner Family
DX: L89.154 Pressure ulcer of sacral region, stage 4 (principal); G82.20 Paraplegia, unspecified; C85.10 Unspecified B-cell lymphoma, unspecified site; M86.10 Other acute osteomyelitis, unspecified site; Z92.3 Personal history of irradiation; B96.1 Klebsiella pneumoniae [K. pneumoniae] as the cause of diseases classified elsewhere
CPT/HCPCS: 11043

== ENCOUNTER 2023-12-02 10:24 | Outpatient (RCR) | payer OTHER, SELFPAY ==
[2023-11-21 00:44] VITALS: BP 147/66; PULSE 58; RESP 16; TEMP 36.1; BMI 25.9
[2023-12-02 10:38] VITALS: BP 152/52; PULSE 59; RESP 18; TEMP 35.9; BMI 25.9
--- NOTE | 2023-12-02 10:53 | PCM.WC.PN ---
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 She had progressive paraplegia. She went to TCU for acute rehab for this progressive paraplegia. During that time she had worsening sacral pressure sore with skin necrosis. Surgery 05/15/21 - Excision necrotic sacral pressure sore, Stage IV, with partial ostectomy for osteomyelitis. Pathology from surgery on 05/15/21 of bone showed acute osteomyelitis. Operative culture, soft tissue, from 05/15/21 was positive for Escherichia coli, Klebsiella, Vanc. Resist. E. gallinarum, Vanc. Resist. E. faecalis. Operative culture, bone, from 05/15/21 was positive for Escherichia coli, Vanc. Resist. E. faecalis, Vanc. Resist. E. gallinarum. She was treated with Meropenem and Vancomycin. Linezolid was started after Vancomycin was stopped. Radiation from 05/17/21 - 06/12/21 18 treatments to T4-T7 area including paraspinal region. 06/06/21- Laparoscopic sigmoid colectomy with creation of end colostomy for fecal diversion. Wound culture from 07/29/23 was positive for Staphylococcus epidermidis and Corynebacterium striatum. She was treated with Augmentin. Prealbumin from 05/17/21 was 4.9. Encourage nutritional supplementation with protein to help the healing process. Wound care - Hydrogel alternating with Fibracol. Today she denies any fever. Her appetite is ok. Progress of Wound: Healed. Objective Data Objective Data Vital Signs: Vital Signs Temp Pulse Resp BP O2 Del Method 96.6 F L 59 L 18 152/52 H Room Air 12/02/23 10:38 12/02/23 10:38 12/02/23 10:38 12/02/23 10:38 12/02/23 10:38 Oxygen Delivery Method Room Air Weight: 155 lb 11.464 oz Body Mass Index (BMI) 25.9 Prealbumin from 05/17/21 was 4.9.? Encourage nutritional supplementation with protein to help the healing process. Lab / Micro Data Attestation: I reviewed the patient's lab results. Charges/Coding Visit Charges Office Visits / Consults: 78034 OV L3 Est 20min (ICD-10 - L89.154, M86.9, G82.20, C85.10, Z97.8) Debridement Note Debridement Note Wound debrided: #1 Sacral area. Laterality: Not Applicable Wound Grade/Stage: IV. No debridement was completed: No debridement was completed today (The sacral ulcer has healed.) Post-Debridement Measurements and Additional Note: Post-Debridement Measurements/Treatment WC - Nurse 1 - General Ulcer Assessment Start: 12/02/23 10:32 Freq: Status: Active Protocol: KRANTHI Activity Type Activity Date Activity User E-sign Co-sign Detail Recorded Client Recorded Date Recorded By Document 12/02/23 10:38 [employer] Desktop 12/02/23 10:40 [facility] 12/02/23 10:38 WC - Today's Visit Information Type of service Follow-up Visit (Physician/WINDOW SHADE ESTIMATOR ) Arrival Mode Wheelchair Patient Identification Verified (Name & Yes ) Height and Weight Body Mass Index (BMI) 25.9 BMI Classification Overweight Vital Signs Temperature (97.8 F-99.1 F) 96.6 F L Temperature Source Temporal Pulse Rate (60-100) 59 L Pulse Location Monitor Respiratory Rate (12-18) 18 Respiratory rate source Observation Oxygen Delivery Method Room Air Blood Pressure (90/60-120/80) 152/52 H Blood Pressure Mean (mm Hg) 85 Source Monitor Position Sitting Blood Pressure Location Left Forearm History Since Last Visit- (Skip if this is Patient's initial visit) Have you changed medications since your No last visit? Any new allergies or adverse reactions No Had a fall/change in ADL's that may No increase risk of falls Signs or symptoms of abuse and/or No neglect since last visit Have you been in the hospital since your No last visit? Has dressing in place as prescribed Yes Has compression in place as prescribed N/A Has offloadiing in place as prescribed N/A Experienced any changes in pain level or No management Left Footwear Slipper Right Footwear Slipper Pain Scale: 0-10 Numeric Is Patient Pain Free? Yes NICOLAS - Nurse 1 - General Ulcer Measurement Start: 12/02/23 10:32 Freq: Status: Active Protocol: Activity Type Activity Date Activity User E-sign Co-sign Detail Recorded Client Recorded Date Recorded By Document 12/02/23 10:38 [facility] Desktop 12/02/23 10:40 [facility] 12/02/23 10:38 Wound Center Nurse 1 #1 Sacral cluster -Current Size (cm) - Length 0.1 -Current Size (cm) - Width 0.1 -Current Size (cm) - Depth 0.1 -Total Square Cm 0.01 -Date of Last Picture (Recall this 12/02/23 field) -Photo Taken Yes -Exudate Amt None Present - Nurse 2 - General Ulcer CM Notes Start: 12/02/23 10:32 Freq: Status: Active Protocol: Activity Type Activity Date Activity User E-sign Co-sign Detail Recorded Client Recorded Date Recorded By Document 12/02/23 10:46 Laptop 12/02/23 10:47 12/02/23 10:46 Wound Center Nurse 2 -Correct Patient No -Correct Side, Site, Position No -Correct Procedure No -Procedure Performed No -Post Debridement (cm) - Length 0 -Post Debridement (cm) - Width 0 -Post Debridement (cm) - Depth 0 -Total Square (Post) (cm) 0 -Area of Debridement (cm) - Length 0 -Area of Debridement (cm) - Width 0 -Total Square (Area) (cm) 0 -Wound/Ulcer Outcome Healed- Epithelialized Pain Scale: 0-10 Numeric Is Patient Pain Free? Yes - Nurse 3 - General Ulcer D/C NN Start: 12/02/23 10:32 Freq: Status: Active Protocol: Activity Type Activity Date Activity User E-sign Co-sign Detail Recorded Client Recorded Date Recorded By Document 12/02/23 10:47 Laptop 12/02/23 10:48 12/02/23 10:47 Is Patient Pain Free? Yes - Visit Discharge Discharge Condition Stable Ambulatory Status Wheelchair Transportation Private Auto Accompanied by family Medication Reconcilliation completed & Yes provided to patient/care provider Clinical Summary of Care Provided Yes Assessment/Plan Assessment/Plan (1) Pressure ulcer of sacral region, stage 4: CODE(S): L89.154 - Pressure ulcer of sacral region, stage 4 (2) Paraplegia: CODE(S): G82.20 - Paraplegia, unspecified (3) Osteomyelitis of pelvis: CODE(S): M86.9 - Osteomyelitis, unspecified (4) Large B-cell lymphoma: CODE(S): C85.10 - Unspecified B-cell lymphoma, unspecified site (5) Chronic indwelling Gutierrez catheter: CODE(S): Z97.8 - Presence of other specified devices PLAN: Plan Wound Care had been Hydrogel alternated with Fibracol. The sacral ulcer has healed. Can stop the Hydrogel and Fibracol. Prealbumin from 05/17/21 was 4.9. Encourage nutritional supplementation with protein to help the healing process. Her family does a really nice job with her wound care. They turn her every 2 hours. She is still getting PT. Family states she can stand with assist. Continue massaging the scar with skin lotion daily to help soften up the scar. Follow up on an as needed basis.
== END 2023-12-02 15:36 | disposition home or self-care (01) ==
LOC: WC 10:24
PROVIDERS: PCP Student in an Organized Health Care Education/Training Program; Visit Provider Nurse Practitioner Family
DX: Z09 Encounter for follow-up examination after completed treatment for conditions other than malignant neoplasm (principal); G82.20 Paraplegia, unspecified; C85.10 Unspecified B-cell lymphoma, unspecified site; Z92.3 Personal history of irradiation
CPT/HCPCS: 99213; G0463

== ENCOUNTER → 2024-03-05 | Outpatient (CLI) | payer SELFPAY, OTHER ==
--- NOTE | 2024-03-05 13:01 | CT_ITS ---
STUDY: CT BRAIN WITH AND WITHOUT CONTRAST REASON FOR EXAM: Female, 78 years old. Follow-up left acoustic neuroma -- With attention to the internal auditory canals RADIATION DOSAGE (If Supplied By Facility): CTDIvol = ( 44.99 ) mGy, DLP = ( 1580.97 ) mGycm TECHNIQUE: Transaxial CT imaging of the brain was performed pre and post contrast administration. The examination was performed with intravenous administration of IV 50mL Isovue-370. Individualized dose optimization techniques were used for this CT. COMPARISON: Comparison is made with prior study dated March 19, 2023. FINDINGS: Normal soft tissue structures. Normal calvarium. There is mild cerebral atrophy with widening of the extra-axial spaces and ventricular dilatation. Normal white matter tracts of the cerebral hemispheres. Tiny old lacunar infarct in the insular cortex of the left temporal lobe. Normal brainstem. There is mild cerebellar atrophy. There is no intracranial hemorrhage. There are no findings of an acute ischemic infarction. Stable tiny enhancing lesion in the left cerebellopontine angle suggestive of an acoustic neuroma. Mucosal retention cyst or polyp at the base of the right maxillary sinus. Mucosal thickening of the ethmoid sinuses bilaterally. CT/Brain/Head W/WO Contrast IMPRESSION: Stable examination. Electronically Signed: Nathan Cotton MD at 13:55 EDT ,
[2024-03-05 13:44] LABS: CREATININE FINGERSTICK < 1.0 mg/dL (0.55-1.02); EGFR FINGERSTICK > 60.0000 mL/min (>60)
== END | disposition home or self-care (01) ==
LOC: CT 12:55
PROVIDERS: PCP Student in an Organized Health Care Education/Training Program; Referring Provider Psychiatry & Neurology Neurology; Visit Provider Psychiatry & Neurology Neurology
DX: D33.3 Benign neoplasm of cranial nerves (principal)
CPT/HCPCS: 70470; Q9967

== ENCOUNTER → 2024-07-28 | Outpatient (CLI) | payer SELFPAY, OTHER ==
--- NOTE | 2024-07-28 13:49 | US_ITS ---
EXAM: US RETROPERITONEAL LIMITED, RENAL CLINICAL INDICATION: NEUROGENIC BLADDER, RETENTION, UTI TECHNIQUE: Limited grayscale and color Doppler sonographic evaluation of the retroperitoneum was performed. COMPARISON: No relevant prior studies available. FINDINGS: RIGHT KIDNEY: Normal. No hydronephrosis. No shadowing calculus. No perinephric collection is demonstrated. Right kidney measures 11 cm in length. LEFT KIDNEY: Normal. No hydronephrosis. No shadowing calculus. No perinephric collection is demonstrated. Left kidney measures 9.1 cm in length. BLADDER: Urinary bladder is normal. US/Kidney and Bladder IMPRESSION: No evidence of hydronephrosis. Electronically Signed: Glenn Worthy MD at 15:15 EDT ,
== END | disposition home or self-care (01) ==
PROVIDERS: PCP Student in an Organized Health Care Education/Training Program; Referring Provider Urology; Visit Provider Urology
DX: N31.9 Neuromuscular dysfunction of bladder, unspecified (principal); R33.9 Retention of urine, unspecified; N39.0 Urinary tract infection, site not specified
CPT/HCPCS: 76770

== ENCOUNTER 2024-11-18 13:00 | Outpatient (RCR) | payer OTHER, SELFPAY ==
[2024-11-04 12:47] VITALS: BP 132/42; PULSE 68; RESP 18; TEMP 36.4; BMI 25.0
--- NOTE | 2024-11-04 14:27 | PCM.WC.HP ---
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 She had progressive paraplegia. She went to TCU for acute rehab for this progressive paraplegia. During that time she had worsening sacral pressure sore with skin necrosis. Surgery 05/15/21 - Excision necrotic sacral pressure sore, Stage IV, with partial ostectomy for osteomyelitis. Pathology from surgery on 05/15/21 of bone showed acute osteomyelitis. Operative culture, soft tissue, from 05/15/21 was positive for Escherichia coli, Klebsiella, Vanc. Resist. E. gallinarum, Vanc. Resist. E. faecalis. Operative culture, bone, from 05/15/21 was positive for Escherichia coli, Vanc. Resist. E. faecalis, Vanc. Resist. E. gallinarum. She was treated with Meropenem and Vancomycin. Linezolid was started after Vancomycin was stopped. Radiation from 05/17/21 - 06/12/21 18 treatments to T4-T7 area including paraspinal region. 06/06/21- Laparoscopic sigmoid colectomy with creation of end colostomy for fecal diversion. She healed out her ulcers November 2023. She states that she was having issues with her urinary catheter leaking which then caused skin breakdown on her left ischial area a little before [place]. They have been using dressing supplies that they had left over (Dakin[employer], selena, aquacel-ag). They thought there might be some improvement in the ulcer, but now that it has been almost a month, they came back for further evaluation and treatment. Today she denies any fever. Her appetite is ok. Progress of Wound: Left ischial ulcer that is not showing much improvement. It is a nice beefy pink ulcer. Laney wound is clear. A wound culture was obtained today.? A positive culture will necessitate antibiotic therapy. [facility] Medical History (Updated 11/04/24 @ 17:04 by Barbra Esparza NP, [employer]) Pressure ulcer of right ischium COVID-19 Decubitus ulcer of left ischium, stage 2 MCI (mild cognitive impairment) Infection Gallstone Cancer Adrenal disorder Decubitus ulcer of left ischium, stage [address] Chronic indwelling Gutierrez catheter Hypertension Pressure sore UTI (urinary tract infection) Ileus Adynamic ileus Abdominal pain History of radiation therapy Neuropathic pain Coronary artery disease Diffuse large B cell lymphoma Paraplegia Atrial fibrillation with rapid ventricular response Debility Acute postoperative anemia due to expected blood loss Pressure ulcer of sacral region, stage 4 Osteomyelitis of pelvis Decubitus ulcer Paraplegia Large cell lymphoma Myocardial infarct Afib Pressure ulcer of sacral region, unstageable Diffuse large B-cell lymphoma Coronary artery disease Paraplegia Home Medications ?Medication ?Instructions ?Recorded ?Last Taken ?Type apixaban 5 mg tablet (Eliquis) 5 mg PO BID Blood thinner 30 days 07/20/21 10/06/21 Rx #60 tabs losartan 100 mg tablet 50 mg PO DAILY HEART 10/07/21 10/06/21 History amiodarone 200 mg tablet 200 mg PO DAILY@1400 HEART 12/12/21 Unknown History gabapentin 100 mg capsule 100 mg PO BID 12/12/21 Unknown History metoprolol succinate 50 mg 25 mg PO DAILY BP 12/12/21 Unknown History tablet,extended release 24 hr Lactobacillus acidophilus 10 10,000 mmu cells PO DAILY@1400 01/19/22 Unknown History billion cell capsule (Probiotic) supplement atorvastatin 40 mg tablet 40 mg PO QHS cholesterol 01/20/22 Unknown History Allergy/AdvReac Type Severity Reaction Status Date / Time prednisone Allergy Intermediate atrial Verified 11/04/24 13:06 fibrillation Family History Father CHF (congestive heart failure) Myocardial infarction Mother CAD (coronary artery disease) Alzheimer disease Surgical History H/O Spinal surgery History of cholecystectomy S/P excisional debridement S/P cholecystectomy Hx of CABG Social History household members: family housing: house number of children: 5 Smoking Status: Never smoker alcohol intake: never substance use type: does not use what type of physical activity do you participate in: other details: leg therapy/hand weights frequency: 5-6 times per week chris/mosque: Darion MORIN Constitutional Constitutional: Denies fever(s) or headache(s) Eyes Eyes: Reports requires corrective lenses ENT HEENT: Reports none Cardiovascular Cardiovascular: Denies chest pain or dyspnea Respiratory/Chest Respiratory/Chest: Denies cough or dyspnea Gastrointestinal Gastrointestinal: Reports other Details: has colostomy ; Denies diarrhea Genitourinary Genitourinary: Reports other Details: has urinary catheter Musculoskeletal Musculoskeletal: Reports other Details: paralyzed Integumentary Integumentary: Reports skin ulcer Neurologic Neurologic: Reports as per HPI Psychiatric Psychiatric: Reports none Endocrine Endocrinology: Reports none Hematologic/Lymphatic Hematologic/Lymphatic: Reports as per HPI Allergic/Immunologic Allergic/Immunologic: Reports none Vital Signs Vital Signs Vital Signs: 11/04/24 12:47 Temperature 97.5 F L Temperature Source Temporal Pulse Rate 68 Respiratory Rate 18 Blood Pressure 132/42 H Blood Pressure Mean 72 Blood Pressure Source Monitor Weight Weight: 150 lb 11.094 oz Body Mass Index (BMI) 25.0 Physical Exam Const alert, oriented x3 and no apparent distress General Appearance: cooperative HEENT normocephalic Head and Scalp: atraumatic Eyes General Eye: normal appearance of both eyes Neck full ROM Lymph Lymphatic: Negative for lymphedema Resp normal respiratory effort, normal air movement and clear to auscultation bilaterally Effort and Inspection: able to speak in complete sentences Cardio regular rate and regular rhythm GI soft to palpation and non-tender Auscultation: normoactive bowel sounds Back/Spine normal ROM Extremity normal capillary refill Extremity Narrative: Upper extremities have full ROM. Paralyzed. Skin Wound Narrative: Left ischial ulcer is beefy pink, laney wound is clear. Neuro oriented x3 Sensorium / Orientation: awake and alert Psych mental status grossly normal, thought process normal and cooperative Appearance: appropriate Debridement Note Debridement Note Wound debrided: ischial ulcer Laterality: Left Wound Grade/Stage: Stage 3 Type of Debridement: Excisional debridement Anesthesia Used: 5% Lidocaine Gel Depth: Down to and including healthy tissue and in the subcutaneous layer Percentage of wound debrided: 100 Instrument Used: 5mm curette Tissue Removed: Non viable tissue and slough Severity: Fat Layer Exposed Amount of bleeding with debridement: Mild Bleeding Controlled with: Pressure Patient tolerated procedure: Patient tolerated procedure well Post-Debridement Measurements and Additional Note: Post-Debridement Measurements/Treatment WC - Nurse 1 - General Ulcer Assessment Start: 11/04/24 12:46 Freq: Status: Active Protocol: KRANTHI Activity Type Activity Date Activity User E-sign Co-sign Detail Recorded Client Recorded Date Recorded By Document 11/04/24 12:47 DL [id number] 11/04/24 13:03 DL 11/04/24 12:47 WC - Today's Visit Information Type of service Initial Visit Arrival Mode Wheelchair Transfer Assistance Will Lift Transfer Assist (Other) X2 Patient Identification Verified (Name & Yes ) Patient Requires Transmission-Based No Precautions Height and Weight Height 5 ft 5 in Weight 150 lb 11.094 oz Weight in Pounds 150.7 lbs Weight Measurement Method Estimated by Patient Body Mass Index (BMI) 25.0 BMI Classification Overweight BSA - Koffi 1.75 Vital Signs Temperature (97.8 F-99.1 F) 97.5 F L Temperature Source Temporal Pulse Rate (60-100) 68 Pulse Location Monitor Respiratory Rate (12-18) 18 Respiratory rate source Observation Blood Pressure (90/60-120/80) 132/42 H Blood Pressure Mean 72 Source Monitor Pain Scale: 0-10 Numeric Is Patient Pain Free? Yes Communication Assessment Preferred language French College Tutor Required No Able to Read Yes Able to Write Yes Communication Tools None Caregiver Communication Skills No Impairment Impairment Right Hearing Abillity Normal Left Hearing Abillity Normal Visual Assistive Devices Glasses Teaching Assessment Preferences Verbal,Written, Demonstration Barriers to Learning None Readiness To Learn Good Willingness to Engage in Self Management Med Activies Readiness to Engage in Self Management Med Activities Anxiety Level Calm Cooperation Cooperative Perception Coherent Interest in Health Problem Asks Questions Education Importance Acknowledges Need Does Patient Smoke tobacco or other No substances Smoking Status Never smoker Is Patient Diabetic No Functional Assessment Recent Decline in Ability to Perform Denies Any Declines Culture/Scientology/Food Server Cultural/Scientology Needs that may affect No Treatment Plan Would you allow our hospital associate sales representative to No meet you for the purpose of spiritual/ emotional support? Food Server to contact place of anabaptist No Teaching: Wound Center *Wound/Skin Impairment -Person Taught Patient, Significant Other Skin Care -Person Taught Patient, Significant Other Discharge Instructions -Person Taught Patient, Significant Other NICOLAS - Nurse 1 - General Ulcer Measurement Start: 11/04/24 12:46 Freq: Status: Active Protocol: Activity Type Activity Date Activity User E-sign Co-sign Detail Recorded Client Recorded Date Recorded By Document 11/04/24 12:47 DL [id number] 11/04/24 13:03 DL 11/04/24 12:47 Wound Center Nurse 1 #4 l iSCHIAL -Current Size (cm) - Length 2.3 -Current Size (cm) - Width 1.1 -Current Size (cm) - Depth 0.2 -Total Square Cm 2.53 -Photo Taken Yes -Exudate Amt Medium -Exudate Type Serosanguineous -Wound Margin Distinct, Outline Attached -Granulation Amt Small (1-33%) -Granulation Quality [place] -Necrosis Amt Large (67-100%) -Necrotic Tissue Type Adherent Slough -Structure Exposed N/A -Texture (Laney-wound Skin Appearance) Scarring -Moisture (Laney-wound Skin Appearance) No Abnormality -Color (Laney-wound Skin Appearance) No Abnormality -Temperature (Laney-wound Skin No Abnormality Appearance) (Pt Warm) -Tenderness on Palpation (Laney-wound No Skin Appearance) -Ulcer Cleansing Soap and Water -Foul Odor after Cleansing No -Anesthetic Used 5% Lidocaine Gel WC - Nurse 2 - General Ulcer CM Notes Start: 11/04/24 12:46 Freq: Status: Active Protocol: Activity Type Activity Date Activity User E-sign Co-sign Detail Recorded Client Recorded Date Recorded By Document 11/04/24 13:29 [id number] 11/04/24 13:33 11/04/24 13:29 Wound Center Nurse 2 -Time 13:30 -Correct Patient Yes -Correct Side, Site, Position Yes -Correct Procedure Yes -Procedure Performed Yes -Type of Procedure Debridement -Clinical Debridement Subcutaneous -Tissue Removed Subcutaneous -Post Debridement (cm) - Length 2.4 -Post Debridement (cm) - Width 0.9 -Post Debridement (cm) - Depth 0.4 -Total Square (Post) (cm) 2.16 -Area of Debridement (cm) - Length 2.4 -Area of Debridement (cm) - Width 0.9 -Total Square (Area) (cm) 2.16 -Tunneling No -Undermining/Tunneling No -Circular Undermining No -Wound/Ulcer Outcome Not Healed -Ulcer Cleansing Rinsed/ Irrigated with Saline -Foul Odor after Cleansing No -Bioengineered Tissue No -Bleeding Controlled with Pressure -Treatment Response Procedure Tolerated Well -Offloading No -Debridement - Subq, 1st 20sq cm No Pain Scale: 0-10 Numeric Is Patient Pain Free? Yes WC - Nurse 3 - General Ulcer D/C NN Start: 11/04/24 12:46 Freq: Status: Active Protocol: Activity Type Activity Date Activity User E-sign Co-sign Detail Recorded Client Recorded Date Recorded By Document 11/04/24 13:49 [facility] [id number] 11/04/24 13:50 [facility] 11/04/24 13:49 Wound Care Center Nurse 3 #4 l iSCHIAL -Ulcer Cleansing Rinsed/ Irrigated with Saline -Foul Odor after Cleansing No -Primary Dressing Applied Aquacel AG 4x4, Silicone Border Foam 4x4 -Other Dressing DRSG PER DL PODIATRY PROFESSOR -Aquacel AG 4x4 2 -Silicone Border Foam 4x4 1 Pain Scale: 0-10 Numeric Is Patient Pain Free? Yes Pain Scale: Adult NonVerbal Is Patient Pain Free? Yes Teaching: Wound Center Dressing Your Wound -Person Taught Patient,Family -Teaching Method Discussion -Response to teaching Verbalize Understanding WC - Visit Discharge Discharge Condition Stable Ambulatory Status Wheelchair Transportation Private Auto Accompanied by DAUGHTER AND Charges/Coding Visit Charges Office Visits / Consults: 25324 OV L3 Est 20min (25 modifier) Procedures Integumentary [id number]: [id number] Casie subq tissue 20 sq cm/< Assessment/Plan Assessment/Plan (1) 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, stage 3: CODE(S): L89.323 - Pressure ulcer of left buttock, stage 3 (2) Paraplegia: CODE(S): G82.20 - Paraplegia, unspecified (3) Large B-cell lymphoma: CODE(S): C85.10 - Unspecified B-cell lymphoma, unspecified site (4) Chronic indwelling Gutierrez catheter: CODE(S): Z97.8 - Presence of other specified devices PLAN: Plan Patient evaluated at the wound healing center. A wound culture was obtained today of her left ischial ulcer.? A positive culture will necessitate antibiotic therapy. Wound care - Aquacel-Ag lightly moistened, if needed, covered with gauze/ABD daily. Wash area with soap and water daily. Encourage nutritional supplementation with protein to help the healing process. Her family does a really nice job with her care. Follow up 1-2 weeks. Phone if develop any concerns.
--- NOTE | 2024-11-05 08:52 | WC ---
PHOTO 11/04/24 LEFT ISCHIAL
[2024-11-18 13:00] VITALS: BP 114/53; PULSE 64; RESP 16; TEMP 36.3; BMI 25.0
--- NOTE | 2024-11-18 16:41 | PCM.WC.PN ---
History of Present Illness Date of Service: 11/18/24 Chief Complaint: Left ischial ulcer History of Wound: CHRISTOPHER CORONEL, who is known to me, is a very pleasant 79 year old female with history of diffuse large B-cell lymphoma, who had emergency evacuation, biopsy of epidural mass causing T4-T7 spinal cord compression. She had progressive paraplegia. She went to TCU for acute rehab for this progressive paraplegia. During that time she had worsening sacral pressure sore with skin necrosis. Surgery 05/15/21 - Excision necrotic sacral pressure sore, Stage IV, with partial ostectomy for osteomyelitis. Pathology from surgery on 05/15/21 of bone showed acute osteomyelitis. Operative culture, soft tissue, from 05/15/21 was positive for Escherichia coli, Klebsiella, Vanc. Resist. E. gallinarum, Vanc. Resist. E. faecalis. Operative culture, bone, from 05/15/21 was positive for Escherichia coli, Vanc. Resist. E. faecalis, Vanc. Resist. E. gallinarum. She was treated with Meropenem and Vancomycin. Linezolid was started after Vancomycin was stopped. Radiation from 05/17/21 - 06/12/21 18 treatments to T4-T7 area including paraspinal region. 06/06/21- Laparoscopic sigmoid colectomy with creation of end colostomy for fecal diversion. She healed out her ulcers November 2023. She states that she was having issues with her urinary catheter leaking which then caused skin breakdown on her left ischial area a little before [place]. They have been using dressing supplies that they had left over (Dakin's, selena, aquacel-ag). They thought there might be some improvement in the ulcer, but now that it has been almost a month, they came back for further evaluation and treatment. Today she denies any fever. Her appetite is ok. Progress of Wound: Left ischial ulcer is smaller today. It is a nice beefy pink ulcer. [place] wound is clear. A wound culture from 11/04/24 positive for Staphylococcus haemolyticus, Staphylococcus epidermidis, Escherichia coli, Corynebacterium striatum, and Cutibacterium acnes and she was started on Levaquin and Linezolid, which she is tolerating well. Objective Data Objective Data Vital Signs: Vital Signs Temp Pulse Resp BP O2 Del Method 97.3 F L 64 16 114/53 L Room Air 11/18/24 13:00 11/18/24 13:00 11/18/24 13:00 11/18/24 13:00 11/18/24 13:00 Oxygen Delivery Method Room Air Weight: 150 lb 11.094 oz Body Mass Index (BMI) 25.0 Lab / Micro Data Micro: Microbiology 11/04/24 13:37 Wound - Ischium Gram Stain - Final 11/04/24 13:37 Wound - Ischium Wound Culture - Final Staphylococcus haemolyticus Staphylococcus epidermidis Escherichia coli Corynebacterium striatum 11/04/24 13:37 Wound - Ischium Anaerobic Culture - Final Cutibacterium acnes Charges/Coding Procedures Integumentary 111xxx-113xx: 14727 Casie subq tissue 20 sq cm/< Debridement Note Debridement Note Wound debrided: ischial ulcer Laterality: Left Wound Grade/Stage: Stage 3 Type of Debridement: Excisional debridement Anesthesia Used: 5% Lidocaine Gel Depth: Down to and including healthy tissue and in the subcutaneous layer Percentage of wound debrided: 100 Instrument Used: 3mm curette Tissue Removed: Non viable tissue and slough Severity: Fat Layer Exposed Amount of bleeding with debridement: Mild Bleeding Controlled with: Pressure Patient tolerated procedure: Patient tolerated procedure well Post-Debridement Measurements and Additional Note: Post-Debridement Measurements/Treatment WC - Nurse 1 - General Ulcer Assessment Start: 11/04/24 12:46 Freq: Status: Active Protocol: NICOLAS.LOWASCENCION Activity Type Activity Date Activity User E-sign Co-sign Detail Recorded Client Recorded Date Recorded By Document 11/04/24 12:47 DL [id number] 11/04/24 13:03 DL Document 11/18/24 13:00 [facility] [id number] 11/18/24 13:11 BM 11/04/24 11/18/24 12:47 13:00 - Today's Visit Information Type of service Initial Visit Follow-up Visit (Physician/BARREL RAISER ) Arrival Mode Wheelchair Wheelchair Transfer Assistance Will Lift Will Lift Transfer Assist (Other) X2 3 Accompanied by and daughter Patient Identification Verified (Name & Yes Yes ) Patient Requires Transmission-Based No No Precautions Height and Weight Height 5 ft 5 in Weight 150 lb 11.094 oz Weight in Pounds 150.7 lbs Weight Measurement Method Estimated by Patient Body Mass Index (BMI) 25.0 25.0 BMI Classification Overweight Overweight BSA - Koffi 1.75 Vital Signs Temperature (97.8 F-99.1 F) 97.5 F L 97.3 F L Temperature Source Temporal Temporal Pulse Rate (60-100) 68 64 Pulse Location Monitor Monitor Respiratory Rate (12-18) 18 16 Respiratory rate source Observation Observation Oxygen Delivery Method Room Air Blood Pressure (90/60-120/80) 132/42 H 114/53 L Blood Pressure Mean (mm Hg) 72 73 Source Monitor Monitor Position Sitting Blood Pressure Location Left Arm History Since Last Visit- (Skip if this is Patient's initial visit) Have you changed medications since your No last visit? Any new allergies or adverse reactions No Had a fall/change in ADL's that may No increase risk of falls Signs or symptoms of abuse and/or No neglect since last visit Have you been in the hospital since your No last visit? Has dressing in place as prescribed Yes Has compression in place as prescribed N/A Has offloadiing in place as prescribed N/A Experienced any changes in pain level or No management Left Footwear Slipper Right Footwear Slipper Pain Scale: 0-10 Numeric Is Patient Pain Free? Yes Yes Communication Assessment Preferred language Citizen Of [place] Lining Presser Required No Able to Read Yes Able to Write Yes Communication Tools None Caregiver Communication Skills No Impairment Impairment Right Hearing Abillity Normal Left Hearing Abillity Normal Visual Assistive Devices Glasses Teaching Assessment Preferences Verbal,Written, Demonstration Barriers to Learning None Readiness To Learn Good Willingness to Engage in Self Management Med Activies Readiness to Engage in Self Management Med Activities Anxiety Level Calm Cooperation Cooperative Perception Coherent Interest in Health Problem Asks Questions Education Importance Acknowledges Need Does Patient Smoke tobacco or other No substances Smoking Status Never smoker Is Patient Diabetic No Functional Assessment Recent Decline in Ability to Perform Denies Any Declines Culture/Episcopal/Linen Supply Load Builder Cultural/Episcopal Needs that may affect No Treatment Plan Would you allow our hospital concrete pipe plant supervisor to No meet you for the purpose of spiritual/ emotional support? Linen Supply Load Builder to contact place of pentecostal No Teaching: Wound Center *Wound/Skin Impairment -Person Taught Patient, Significant Other Skin Care -Person Taught Patient, Significant Other Discharge Instructions -Person Taught Patient, Significant Other WC - Nurse 1 - General Ulcer Measurement Start: 11/04/24 12:46 Freq: Status: Active Protocol: Activity Type Activity Date Activity User E-sign Co-sign Detail Recorded Client Recorded Date Recorded By Document 11/04/24 12:47 DL [id number] 11/04/24 13:03 DL Document 11/18/24 13:00 [facility] [id number] 11/18/24 13:11 [facility] 11/04/24 11/18/24 12:47 13:00 Wound Center Nurse 1 #4 l iSCHIAL -Combined with other wound No -Current Size (cm) - Length 2.3 1.8 -Current Size (cm) - Width 1.1 0.8 -Current Size (cm) - Depth 0.2 0.1 -Total Square Cm 2.53 1.44 -Date of Last Picture (Recall this 11/18/24 field) -Photo Taken Yes Yes -Epithelialization Small 1-33% -Tunneling No -Undermining/Tunneling No -Circular Undermining No -Exudate Amt Medium Medium -Exudate Type Serosanguineous Serosanguineous -Wound Margin Distinct, Thickened & Outline Rolled Under Attached -Granulation Amt Small (1-33%) Small (1-33%) -Granulation Quality [place] Red -Slough/Fibrin Yes -Necrosis Amt Large (67-100%) Large (67-100%) -Necrotic Tissue Type Adherent Slough Adherent Slough -Structure Exposed N/A -Texture (Laney-wound Skin Appearance) Scarring Assessed -Moisture (Laney-wound Skin Appearance) No Abnormality Assessed -Color (Laney-wound Skin Appearance) No Abnormality Assessed -Temperature (Laney-wound Skin No Abnormality No Abnormality Appearance) (Pt Warm) (Pt Warm) -Tenderness on Palpation (Laney-wound No No Skin Appearance) -Ulcer Cleansing Soap and Water Rinsed/ Irrigated with Saline -Foul Odor after Cleansing No No -Anesthetic Used 5% Lidocaine 5% Lidocaine Gel Gel WC - Nurse 2 - General Ulcer CM Notes Start: 11/04/24 12:46 Freq: Status: Active Protocol: Activity Type Activity Date Activity User E-sign Co-sign Detail Recorded Client Recorded Date Recorded By Document 11/04/24 13:29 [id number] 11/04/24 13:33 Document 11/18/24 13:41 [id number] 11/18/24 13:44 11/04/24 11/18/24 13:29 13:41 Wound Center Nurse 2 #4 l iSCHIAL -Time 13:30 13:41 -Correct Patient Yes Yes -Correct Side, Site, Position Yes Yes -Correct Procedure Yes Yes -Procedure Performed Yes Yes -Type of Procedure Debridement Debridement -Clinical Debridement Subcutaneous Subcutaneous -Tissue Removed Subcutaneous Subcutaneous -Post Debridement (cm) - Length 2.4 2.0 -Post Debridement (cm) - Width 0.9 0.8 -Post Debridement (cm) - Depth 0.4 0.2 -Total Square (Post) (cm) 2.16 1.60 -Area of Debridement (cm) - Length 2.4 2.0 -Area of Debridement (cm) - Width 0.9 0.8 -Total Square (Area) (cm) 2.16 1.60 -Tunneling No No -Undermining/Tunneling No No -Circular Undermining No No -Wound/Ulcer Outcome Not Healed Not Healed -Ulcer Cleansing Rinsed/ Rinsed/ Irrigated with Irrigated with Saline Saline -Foul Odor after Cleansing No No -Bioengineered Tissue No No -Bleeding Controlled with Pressure Pressure -Treatment Response Procedure Procedure Tolerated Well Tolerated Well -Offloading No -Debridement - Subq, 1st 20sq cm No Yes Pain Scale: 0-10 Numeric Is Patient Pain Free? Yes Yes - Nurse 3 - General Ulcer D/C NN Start: 11/04/24 12:46 Freq: Status: Active Protocol: Activity Type Activity Date Activity User E-sign Co-sign Detail Recorded Client Recorded Date Recorded By Document 11/04/24 13:49 [facility] [id number] 11/04/24 13:50 [facility] Document 11/18/24 14:09 [id number] 11/18/24 14:09 11/04/24 11/18/24 13:49 14:09 Wound Care Center Nurse 3 #4 l iSCHIAL -Ulcer Cleansing Rinsed/ Irrigated with Saline -Foul Odor after Cleansing No -Primary Dressing Applied Aquacel AG 4x4, Aquacel AG 4x4 Silicone Border Foam 4x4 -Other Dressing DRSG PER DL CAUL PULLER -Primary Dressing Covered/Secured with Dry Gauze, Secured with Tape -Aquacel AG 4x4 2 1 -Silicone Border Foam 4x4 1 Pain Scale: 0-10 Numeric Is Patient Pain Free? Yes Yes Pain Scale: Adult NonVerbal Is Patient Pain Free? Yes Teaching: Wound Center Dressing Your Wound -Person Taught Patient,Family -Teaching Method Discussion -Response to teaching Verbalize Understanding WC - Visit Discharge Discharge Condition Stable Stable Ambulatory Status Wheelchair Wheelchair Transportation Private Auto Private Auto Accompanied by DAUGHTER AND Medication Reconcilliation completed & No provided to patient/care provider Clinical Summary of Care Provided Yes Assessment/Plan Assessment/Plan (1) 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, stage 3: CODE(S): L89.323 - Pressure ulcer of left buttock, stage 3 (2) Paraplegia: CODE(S): G82.20 - Paraplegia, unspecified (3) Large B-cell lymphoma: CODE(S): C85.10 - Unspecified B-cell lymphoma, unspecified site (4) Chronic indwelling Gutierrez catheter: CODE(S): Z97.8 - Presence of other specified devices PLAN: Plan Patient evaluated at the wound healing center. A wound culture from 11/04/24 positive for Staphylococcus haemolyticus, Staphylococcus epidermidis, Escherichia coli, Corynebacterium striatum, and Cutibacterium acnes and she was started on Levaquin and Linezolid, which she is tolerating well. Wound care - Aquacel-Ag lightly moistened, if needed, covered with gauze/ABD daily. Wash area with soap and water daily. Encourage nutritional supplementation with protein to help the healing process. Her family does a really nice job with her care. Follow up 3 weeks, per patient request due to other appointments. Phone if develop any concerns.
--- NOTE | 2024-11-19 09:07 | WC ---
PHOTO 11/18/24 LEFT ISCHIUM
== END 2024-11-20 23:59 | disposition home or self-care (01) ==
LOC: WC 13:00
PROVIDERS: PCP Student in an Organized Health Care Education/Training Program; Referring Provider Student in an Organized Health Care Education/Training Program; Visit Provider Nurse Practitioner Family
DX: L89.323 Pressure ulcer of left buttock, stage 3 (principal); G82.20 Paraplegia, unspecified; C85.10 Unspecified B-cell lymphoma, unspecified site; I10 Essential (primary) hypertension; I25.10 Atherosclerotic heart disease of native coronary artery without angina pectoris; Z79.01 Long term (current) use of anticoagulants; Z92.3 Personal history of irradiation; Z97.8 Presence of other specified devices
CPT/HCPCS: 11042; 87070; 87075; 87077; 87186; 87205; 99213; G0463

== ENCOUNTER 2024-12-16 13:05 | Outpatient (RCR) | payer OTHER, SELFPAY ==
[2024-11-21 01:19] VITALS: BP 114/53; PULSE 64; RESP 16; TEMP 36.3; BMI 25.0
[2024-12-16 13:09] VITALS: BP 158/68; PULSE 61; RESP 16; TEMP 36.2; BMI 25.0
--- NOTE | 2024-12-16 14:55 | PCM.WC.PN ---
History of Present Illness Date of Service: 12/16/24 Chief Complaint: Left ischial ulcer History of Wound: CHRISTOPHER CORONEL, who is known to me, is a very pleasant 79 year old female with history of diffuse large B-cell lymphoma, who had emergency evacuation, biopsy of epidural mass causing T4-T7 spinal cord compression. She had progressive paraplegia. She went to TCU for acute rehab for this progressive paraplegia. During that time she had worsening sacral pressure sore with skin necrosis. Surgery 05/15/21 - Excision necrotic sacral pressure sore, Stage IV, with partial ostectomy for osteomyelitis. Pathology from surgery on 05/15/21 of bone showed acute osteomyelitis. Operative culture, soft tissue, from 05/15/21 was positive for Escherichia coli, Klebsiella, Vanc. Resist. E. gallinarum, Vanc. Resist. E. faecalis. Operative culture, bone, from 05/15/21 was positive for Escherichia coli, Vanc. Resist. E. faecalis, Vanc. Resist. E. gallinarum. She was treated with Meropenem and Vancomycin. Linezolid was started after Vancomycin was stopped. Radiation from 05/17/21 - 06/12/21 18 treatments to T4-T7 area including paraspinal region. 06/06/21- Laparoscopic sigmoid colectomy with creation of end colostomy for fecal diversion. She healed out her ulcers November 2023. She states that she was having issues with her urinary catheter leaking which then caused skin breakdown on her left ischial area a little before Antoine. They have been using dressing supplies that they had left over (Dakin's, selena, aquacel-ag). They thought there might be some improvement in the ulcer, but now that it has been almost a month, they came back for further evaluation and treatment. Wound culture from 11/04/24 positive for Staphylococcus haemolyticus, Staphylococcus epidermidis, Escherichia coli, Corynebacterium striatum, and Cutibacterium acnes and she was treated with Levaquin and Linezolid. Today she denies any fever. Her appetite is ok. Progress of Wound: Left ischial ulcer is smaller today. It is a nice beefy pink ulcer. Laney wound is clear. Objective Data Objective Data Vital Signs: Vital Signs Temp Pulse Resp BP O2 Del Method 97.2 F L 61 16 158/68 H Room Air 12/16/24 13:09 12/16/24 13:09 12/16/24 13:09 12/16/24 13:09 12/16/24 13:09 Oxygen Delivery Method Room Air Weight: 150 lb 11.094 oz Body Mass Index (BMI) 25.0 Charges/Coding Procedures Integumentary [id number]: [id number] Casie subq tissue 20 sq cm/< Debridement Note Debridement Note Wound debrided: ischial ulcer Laterality: Left Wound Grade/Stage: Stage 3 Type of Debridement: Excisional debridement Anesthesia Used: 5% Lidocaine Gel Depth: Down to and including healthy tissue and in the subcutaneous layer Percentage of wound debrided: 100 Instrument Used: 3mm curette Tissue Removed: Non viable tissue and slough Severity: Fat Layer Exposed Amount of bleeding with debridement: Mild Bleeding Controlled with: Pressure Patient tolerated procedure: Patient tolerated procedure well Post-Debridement Measurements and Additional Note: Post-Debridement Measurements/Treatment - Nurse 1 - General Ulcer Assessment Start: 12/16/24 13:09 Freq: Status: Active Protocol: KRANTHI Activity Type Activity Date Activity User E-sign Co-sign Detail Recorded Client Recorded Date Recorded By Document 12/16/24 13:09 [facility] [id number] 12/16/24 13:18 [facility] 12/16/24 13:09 - Today's Visit Information Type of service Follow-up Visit (Physician/HR DIRECTOR ) Arrival Mode Wheelchair Transfer Assistance Will Lift Accompanied by daughter and Patient Identification Verified (Name & Yes ) Patient Requires Transmission-Based No Precautions Height and Weight Body Mass Index (BMI) 25.0 BMI Classification Overweight Vital Signs Temperature (97.8 F-99.1 F) 97.2 F L Temperature Source Temporal Pulse Rate (60-100) 61 Pulse Location Monitor Respiratory Rate (12-18) 16 Respiratory rate source Observation Oxygen Delivery Method Room Air Blood Pressure (90/60-120/80) 158/68 H Blood Pressure Mean (mm Hg) 98 Source Monitor Position Sitting Blood Pressure Location Left Arm History Since Last Visit- (Skip if this is Patient's initial visit) Have you changed medications since your No last visit? Any new allergies or adverse reactions No Had a fall/change in ADL's that may No increase risk of falls Signs or symptoms of abuse and/or No neglect since last visit Have you been in the hospital since your No last visit? Has dressing in place as prescribed Yes Has compression in place as prescribed N/A Has offloadiing in place as prescribed N/A Experienced any changes in pain level or No management Left Footwear Slipper Right Footwear Slipper Pain Scale: 0-10 Numeric Is Patient Pain Free? Yes - Nurse 1 - General Ulcer Measurement Start: 12/16/24 13:09 Freq: Status: Active Protocol: Activity Type Activity Date Activity User E-sign Co-sign Detail Recorded Client Recorded Date Recorded By Document 12/16/24 13:09 [facility] [id number] 12/16/24 13:18 [facility] 12/16/24 13:09 Wound Center Nurse 1 #4 l iSCHIAL -Combined with other wound No -Current Size (cm) - Length 1.4 -Current Size (cm) - Width 0.5 -Current Size (cm) - Depth 0.1 -Total Square Cm 0.70 -Photo Taken No -Epithelialization Small 1-33% -Tunneling No -Undermining/Tunneling No -Circular Undermining No -Exudate Amt Medium -Exudate Type Serosanguineous -Wound Margin Thickened -Granulation Amt Large (67-100%) -Granulation Quality Pale,Red -Slough/Fibrin No -Necrosis Amt None Present (0 %) -Texture (Laney-wound Skin Appearance) Assessed, Scarring -Moisture (Laney-wound Skin Appearance) Assessed -Color (Laney-wound Skin Appearance) Assessed -Temperature (Laney-wound Skin No Abnormality Appearance) (Pt Warm) -Tenderness on Palpation (Laney-wound No Skin Appearance) -Ulcer Cleansing Rinsed/ Irrigated with Saline -Foul Odor after Cleansing No -Anesthetic Used 5% Lidocaine Gel - Nurse 2 - General Ulcer CM Notes Start: 12/16/24 13:09 Freq: Status: Active Protocol: Activity Type Activity Date Activity User E-sign Co-sign Detail Recorded Client Recorded Date Recorded By Document 12/16/24 13:33 [id number] 12/16/24 13:34 12/16/24 13:33 Wound Center Nurse 2 -Time 13:33 -Correct Patient Yes -Correct Side, Site, Position Yes -Correct Procedure Yes -Procedure Performed Yes -Type of Procedure Debridement -Clinical Debridement Subcutaneous -Tissue Removed Subcutaneous -Post Debridement (cm) - Length 1.5 -Post Debridement (cm) - Width 0.4 -Post Debridement (cm) - Depth 0.2 -Total Square (Post) (cm) 0.60 -Area of Debridement (cm) - Length 1.5 -Area of Debridement (cm) - Width 0.4 -Total Square (Area) (cm) 0.60 -Tunneling No -Undermining/Tunneling No -Circular Undermining No -Wound/Ulcer Outcome Not Healed -Ulcer Cleansing Rinsed/ Irrigated with Saline -Foul Odor after Cleansing No -Bioengineered Tissue No -Bleeding Controlled with Pressure -Treatment Response Procedure Tolerated Well -Debridement - Subq, 1st 20sq cm Yes Pain Scale: 0-10 Numeric Is Patient Pain Free? Yes - Nurse 3 - General Ulcer D/C NN Start: 12/16/24 13:09 Freq: Status: Active Protocol: Activity Type Activity Date Activity User E-sign Co-sign Detail Recorded Client Recorded Date Recorded By Document 12/16/24 14:01 [facility] [id number] 12/16/24 14:02 [facility] 12/16/24 14:01 Wound Care Center Nurse 3 #4 l iSCHIAL -Ulcer Cleansing Rinsed/ Irrigated with Saline -Foul Odor after Cleansing No -Primary Dressing Applied Aquacel AG 2x2, Aquacel AG 4x4, Silicone Border Foam 4x4 -Aquacel AG 2x2 1 -Aquacel AG 4x4 1 -Silicone Border Foam 4x4 1 Treatment Response Procedure Tolerated Well Pain Scale: 0-10 Numeric Is Patient Pain Free? Yes - Visit Discharge Discharge Condition Stable Ambulatory Status Wheelchair Transportation Private Auto Accompanied by and val Assessment/Plan Assessment/Plan (1) 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, stage 3: CODE(S): L89.323 - Pressure ulcer of left buttock, stage 3 (2) Paraplegia: CODE(S): G82.20 - Paraplegia, unspecified (3) Large B-cell lymphoma: CODE(S): C85.10 - Unspecified B-cell lymphoma, unspecified site (4) Chronic indwelling Gutierrez catheter: CODE(S): Z97.8 - Presence of other specified devices PLAN: Plan Patient evaluated at the wound healing center. A wound culture from 11/04/24 positive for Staphylococcus haemolyticus, Staphylococcus epidermidis, Escherichia coli, Corynebacterium striatum, and Cutibacterium acnes and she was treated with Levaquin and Linezolid. Wound care - Aquacel-Ag lightly moistened, if needed, covered with gauze/ABD daily. Wash area with soap and water daily. Encourage nutritional supplementation with protein to help the healing process. Her family does a really nice job with her care. Follow up 2 weeks. Phone if develop any concerns.
== END 2024-12-18 23:59 | disposition home or self-care (01) ==
LOC: WC 13:05
PROVIDERS: PCP Student in an Organized Health Care Education/Training Program; Referring Provider Student in an Organized Health Care Education/Training Program; Visit Provider Nurse Practitioner Family
DX: L89.323 Pressure ulcer of left buttock, stage 3 (principal); G82.20 Paraplegia, unspecified; Z79.01 Long term (current) use of anticoagulants; Z79.899 Other long term (current) drug therapy; Z87.39 Personal history of other diseases of the musculoskeletal system and connective tissue; Z85.72 Personal history of non-Hodgkin lymphomas; Z90.49 Acquired absence of other specified parts of digestive tract
CPT/HCPCS: 11042

== ENCOUNTER 2024-12-23 07:11 | Day surgery (SDC) | payer SELFPAY, OTHER ==
--- NOTE | 2024-12-09 21:10 | PAT.ANESEVAL ---
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 When Was Last Pacemaker Check QUESTION #4 FULL TEXT: You/Your Family Experience fever (hyperthermia) with Anesthesia Last Oral Intake Last Oral intake: Last Oral Intake NPO since Meds taken in AM with sips of water? Meds patient instructed to take am of surgery PONV PONV - calcine furnace loader: PONV - calcine furnace loader Female Yes 12/09/24 09:09 HX of Motion Sickness No 12/09/24 09:09 HX of N/V After Surgery No 12/09/24 09:09 Non-Smoker Yes 12/09/24 09:09 Duration of Surgery greater Yes 12/09/24 09:09 than 60 minutes Number of Risk Factors 3 12/09/24 09:09 PONV Score Moderate Risk 12/09/24 09:09 Height & Weight Height & Weight: Anesthesia: Height & Weight Height 5 ft 5 in 11/04/24 12:47 Respiratory Assessment Respiratory Assessment - calcine furnace loader: Respiratory Tract Infection Hx - calcine furnace loader Hx Respiratory Tract Infection No 12/09/24 09:09 STOP Sleep Apnea STOP Sleep Apnea - calcine furnace loader: STOP Sleep Apnea - calcine furnace loader Hx Hypertension Yes: CONTROLLED WITH MEDS 12/09/24 09:09 Hx Sleep Apnea No 12/09/24 09:09 CPAP BIPAP Do you snore loudly (louder No 12/09/24 09:09 than talking or can be heard Do you often feel tired/ No 12/09/24 09:09 fatigued/ sleepy during daytime? Has anyone observed you stop No 12/09/24 09:09 breathing during sleep? STOP Results Negative 12/09/24 09:09 QUESTION #5 FULL TEXT : Do you snore loudly (louder than talking or can be heard through closed doors)? Tobacco Use History Tobacco Use History - calcine furnace loader: Tobacco Use History - calcine furnace loader Tobacco Use Smoking Status Never smoker 12/09/24 09:09 Hx Tobacco Use No 12/09/24 09:09 Years Smoking Packs Smoked per Day Smoking Cessation Date was within the last 15 years Hx Smoking Cessation Date Hx Smoking Cessation Counseling Hematologic Medial History Hematologic Hx - calcine furnace loader: Hematologic Medical Hx - nursing education consultant Hx of Blood Transfusion Yes 12/09/24 09:09 Hx of Transfusion in last 3 No 12/09/24 09:09 Months Date of Last Transfusion (if within last 3 months) Ever experience any problems No 12/09/24 09:09 with transfusion(s)? Specify any problems Hx of Preganancy in last 3 No 12/09/24 09:09 Months Nurse Filling Out Transfusion DSCHRIBER 12/09/24 09:09 & Questions: Date: 12/09/24 12/09/24 09:09 Time: 09:11 12/09/24 09:09 Patient unable to answer at this time (ie. confused, unrespo /Reproduction History /Reproductive History - calcine furnace loader: /Reproductive Hx- calcine furnace loader Hx Now No 12/09/24 09:09 Gestational Age (in weeks): EDC: Hx Hx Para Hx Section SAB No 12/09/24 09:09 [facility] Medical History (Updated 12/09/24 @ 09:31 by Helena Callahan) History of echocardiogram Wears glasses Wears dentures Uses wheelchair Indwelling urethral catheter present Anemia Non-smoker History of edema Cardiology follow-up encounter Pressure ulcer COVID-19 Decubitus ulcer of left ischium, stage 2 Pressure ulcer of right ischium MCI (mild cognitive impairment) Adrenal disorder Decubitus ulcer of left ischium, stage 4 Chronic indwelling Gutierrez catheter Hypertension Pressure sore UTI (urinary tract infection) Adynamic ileus Abdominal pain History of radiation therapy Neuropathic pain Diffuse large B cell lymphoma Paraplegia Debility Pressure ulcer of sacral region, stage 4 Osteomyelitis of pelvis Myocardial infarct Afib Pressure ulcer of sacral region, unstageable Diffuse large B-cell lymphoma Paraplegia Home Medications ?Medication ?Instructions ?Recorded ?Last Taken ?Type losartan 100 mg tablet 50 mg PO DAILY HEART 10/07/21 10/06/21 History amiodarone 200 mg tablet 200 mg PO DAILY@1400 HEART 12/12/21 Unknown History gabapentin 100 mg capsule 100 mg PO BID 12/12/21 Unknown History metoprolol succinate 50 mg 25 mg PO DAILY BP 12/12/21 Unknown History tablet,extended release 24 hr Lactobacillus acidophilus 10 10,000 mmu cells PO DAILY@1400 01/19/22 Unknown History billion cell capsule (Probiotic) supplement atorvastatin 40 mg tablet 40 mg PO QHS cholesterol 01/20/22 Unknown History MINGXIA RED 1 tsp PO DAILY 12/09/24 Unknown History sennosides 8.6 mg capsule (senna) 17.2 mg PO QHS 12/09/24 Unknown History warfarin 2 mg tablet 2 mg PO DAILY 12/09/24 Unknown History Allergy/AdvReac Type Severity Reaction Status Date / Time prednisone Allergy Intermediate atrial Verified 12/09/24 09:00 fibrillation Family History (Reviewed 11/04/24 @ 16:57 by Barbra Esparza SUPERVISOR DRAPERY HANGING, SUPERVISOR DRAPERY HANGING-C) Father CHF (congestive heart failure) Myocardial infarction Mother CAD (coronary artery disease) Alzheimer disease Surgical History (Updated 12/09/24 @ 09:31 by Helena Callahan) History of colectomy H/O Spinal surgery History of cholecystectomy S/P excisional debridement S/P cholecystectomy Hx of CABG Social History (Reviewed 11/04/24 @ 16:57 by Barbra Esparza SUPERVISOR DRAPERY HANGING, SUPERVISOR [employer]APERY HANGING-C) household members: family housing: house number of children: 5 Smoking Status: Never smoker alcohol intake: never substance use type: does not use what type of physical activity do you participate in: other details: leg therapy/hand weights frequency: 5-6 times per week chris/rastafarian: [facility] Audit: Pertinent Findings Pertinent Findings EKG Perinent findings: October 07, 2021. Normal sinus rhythm. Inferior infarct age undetermined. April 12, 2022. Sinus bradycardia at 51 bpm. Left atrial enlargement. Prolonged QT. Compared to EKG of March 19, 2021. Ventricle rate has decreased by 29 bpm. June 10, 2024. Normal sinus rhythm at 73 bpm. Possible anterior lateral infarct. Echo (EF%) pertinent findings: December 09, 2023. Ejection fraction is 55 to 60%. No regional wall motion abnormality seen. No aortic stenosis seen. Consult pertinent findings: June 10, 2024. Dr. Garcia. 1. Coronary artery disease in [place] artery. Status post CABG x 3 in 2018. Denies angina at this time. 2. Paroxysmal A-fib. No palpitations at this time. EKG done today was normal sinus rhythm. Continue amiodarone and metoprolol. Continue warfarin. Recommendation Anesthesia Recommendation Anesthesia recommendation: OPTIMIZED for anesthesia
[2024-12-23] VITALS (8 sets, daily range): BP systolic 124–164; BP diastolic 54–69; PULSE 62–72; RESP 16–18; TEMP 36.1–36.9; O2SAT 94–99; BMI 30.7
--- NOTE | 2024-12-23 07:34 | PCM.PRE.AN2 ---
ASA Classification* ASA Classification ASA Classification: 3 Assessment & Plan Anesthesia* Anesthesia Assessment Anesthesia Assessment: Discussed sedation and/or anesthesia options, risks, benefits, and alternatives with patient/parents/legal guardian/POA. Questions invited. The patient/parents/legal guardian/POA seems to understand and agrees to proceed with anesthesia plan. Reviewed the physical assessment, medical history, allergy history and patient home medications list prior to surgery/procedure/anesthetic and documented any changes. Performed airway and anesthesia risk assessments. Anesthesia Type Anesthesia Type: General Anesthesia Focused Assessment* Airway Assessment Mouth opens: >3 cm Mallampati Score: II Focused Labs Anesthesia Preop lab: CBC WBC 11.6 K/mm3 (4.4-11.0) H 10/16/22 11:42 10/16/22 RBC 4.98 M/mm3 (4.2-5.4) 10/16/22 11:42 10/16/22 Hgb 14.3 g/dL (12.0-15.0) 10/16/22 11:42 10/16/22 Hct 42.8 % (37-47) 10/16/22 11:42 10/16/22 Plt Count 151 K/mm3 (150-450) 10/16/22 11:42 10/16/22 CHEMISTRY Potassium 4.8 mmol/L (3.5-5.1) 10/16/22 11:42 10/16/22 Sodium 135 mmol/L (136-145) L 10/16/22 11:42 10/16/22 Magnesium 1.7 mg/dL (1.6-2.6) 06/07/21 05:54 06/07/21 Phosphorus 3.2 mg/dL (2.5-4.9) 06/07/21 05:54 06/07/21 BUN 16 mg/dL (7-18) 10/16/22 11:42 10/16/22 Creatinine 0.70 mg/dL (0.55-1.02) 10/16/22 11:42 10/16/22 Glucose 101 mg/dL (74-106) 10/16/22 11:42 10/16/22 COAG Pre-Assessment Diagnosis/Proposed Procedure Planned Operative Procedure(s): CYSTOLITHOLAPAXY Anesthesia History 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 When Was Last Pacemaker Check QUESTION #4 FULL TEXT: You/Your Family Experience fever (hyperthermia) with Anesthesia Last Oral Intake Last Oral intake: Last Oral Intake NPO since Meds taken in AM with sips of water? Meds patient instructed to take am of surgery PONV PONV - comic book artist: PONV - comic book artist Female Yes 12/09/24 09:09 HX of Motion Sickness No 12/09/24 09:09 HX of N/V After Surgery No 12/09/24 09:09 Non-Smoker Yes 12/09/24 09:09 Duration of Surgery greater Yes 12/09/24 09:09 than 60 minutes Number of Risk Factors 3 12/09/24 09:09 PONV Score Moderate Risk 12/09/24 09:09 Height & Weight Height & Weight: Anesthesia: Height & Weight Height 5 ft 5 in 11/04/24 12:47 Respiratory Assessment Respiratory Assessment - comic book artist: Respiratory Tract Infection Hx - comic book artist Hx Respiratory Tract Infection No 12/09/24 09:09 STOP Sleep Apnea STOP Sleep Apnea - comic book artist: STOP Sleep Apnea - comic book artist Hx Hypertension Yes 12/19/24 01:57 Hx Sleep Apnea No 12/09/24 09:09 CPAP BIPAP Do you snore loudly (louder No 12/09/24 09:09 than talking or can be heard Do you often feel tired/ No 12/09/24 09:09 fatigued/ sleepy during daytime? Has anyone observed you stop No 12/09/24 09:09 breathing during sleep? STOP Results Negative 12/09/24 09:09 QUESTION #5 FULL TEXT : Do you snore loudly (louder than talking or can be heard through closed doors)? Tobacco Use History Tobacco Use History - comic book artist: Tobacco Use History - comic book artist Tobacco Use Smoking Status Never smoker 12/09/24 09:09 Hx Tobacco Use No 12/09/24 09:09 Years Smoking Packs Smoked per Day Smoking Cessation Date was within the last 15 years Hx Smoking Cessation Date Hx Smoking Cessation Counseling Hematologic Medial History Hematologic Hx - comic book artist: Hematologic Medical Hx - papier mache molder Hx of Blood Transfusion Yes 12/09/24 09:09 Hx of Transfusion in last 3 No 12/09/24 09:09 Months Date of Last Transfusion (if within last 3 months) Ever experience any problems No 12/09/24 09:09 with transfusion(s)? Specify any problems Hx of Preganancy in last 3 No 12/09/24 09:09 Months Nurse Filling Out Transfusion DSCHRIBER 12/09/24 09:09 & Questions: Date: 12/09/24 12/09/24 09:09 Time: 09:11 12/09/24 09:09 Patient unable to answer at this time (ie. confused, unrespo /Reproduction History /Reproductive History - comic book artist: /Reproductive Hx- comic book artist Hx Now No 12/09/24 09:09 Gestational Age (in weeks): EDC: Hx Hx Para Hx Section SAB No 12/09/24 09:09 Active Medications Active Medications: Current Medications Generic Name Dose Route Start Last Admin Trade Name Freq PRN Reason Stop Dose Admin Cefazolin Sodium 2 gm/ N/A 20 mls @ 400 mls/hr 12/23/24 09:10 IV 12/23/24 09:12 PREOP ONE Sodium Chloride 1,000 mls @ 15 mls/hr 12/23/24 07:30 IV 12/28/24 20:49 .Q48H [facility] Protocol PFSH Medical History History of echocardiogram Wears glasses Wears dentures Uses wheelchair Indwelling urethral catheter present Anemia Non-smoker History of edema Cardiology follow-up encounter Pressure ulcer COVID-19 Decubitus ulcer of left ischium, stage 2 Pressure ulcer of right ischium MCI (mild cognitive impairment) Adrenal disorder Decubitus ulcer of left ischium, stage 4 Chronic indwelling Gutierrez catheter Hypertension Pressure sore UTI (urinary tract infection) Adynamic ileus Abdominal pain History of radiation therapy Neuropathic pain Diffuse large B cell lymphoma Paraplegia Debility Pressure ulcer of sacral region, stage 4 Osteomyelitis of pelvis Myocardial infarct Afib Pressure ulcer of sacral region, unstageable Diffuse large B-cell lymphoma Paraplegia Home Medications ?Medication ?Instructions ?Recorded ?Last Taken ?Type losartan 100 mg tablet 50 mg PO DAILY HEART 10/07/21 10/06/21 History amiodarone 200 mg tablet 200 mg PO DAILY@1400 HEART 12/12/21 Unknown History gabapentin 100 mg capsule 100 mg PO BID 12/12/21 Unknown History metoprolol succinate 50 mg 25 mg PO DAILY BP 12/12/21 Unknown History tablet,extended release 24 hr Lactobacillus acidophilus 10 10,000 mmu cells PO DAILY@1400 01/19/22 Unknown History billion cell capsule (Probiotic) supplement atorvastatin 40 mg tablet 40 mg PO QHS cholesterol 01/20/22 Unknown History MINGXIA RED 1 tsp PO DAILY 12/09/24 Unknown History sennosides 8.6 mg capsule (senna) 17.2 mg PO QHS 12/09/24 Unknown History warfarin 2 mg tablet 2 mg PO DAILY 12/09/24 Unknown History Allergy/AdvReac Type Severity Reaction Status Date / Time prednisone Allergy Intermediate atrial Verified 12/09/24 09:00 fibrillation Family History Father CHF (congestive heart failure) Myocardial infarction Mother CAD (coronary artery disease) Alzheimer disease Surgical History History of colectomy H/O Spinal surgery History of cholecystectomy S/P excisional debridement S/P cholecystectomy Hx of CABG Social History household members: family housing: house number of children: 5 Smoking Status: Never smoker alcohol intake: never substance use type: does not use what type of physical activity do you participate in: other details: leg therapy/hand weights frequency: 5-6 times per week chris/tenriism: [place] Review of Systems (Anesthesia) ROS Narrative System reviewed and no additional complaints, except as documented.
[2024-12-23] MEDS: 0.9% Normal Saline (1000mL) 1,000 ML 15 ML IV (08:22)
--- NOTE | 2024-12-23 08:50 | HP.PCM_ITS ---
HPI - General General Date of Service: 12/23/24 Chief Complaint: Bladder stones [facility] Narrative CHRISTOPHER CORONEL, is a 79 F who presents cystoscopy diagnostic and removal laser of bladder stones and placement of Gutierrez PENDING SALE TO [facility] Medical History History of echocardiogram Wears glasses Wears dentures Uses wheelchair Indwelling urethral catheter present Anemia Non-smoker History of edema Cardiology follow-up encounter Pressure ulcer COVID-19 Decubitus ulcer of left ischium, stage 2 Pressure ulcer of right ischium MCI (mild cognitive impairment) Adrenal disorder Decubitus ulcer of left ischium, stage 4 Chronic indwelling Gutierrez catheter Hypertension Pressure sore UTI (urinary tract infection) Adynamic ileus Abdominal pain History of radiation therapy Neuropathic pain Diffuse large B cell lymphoma Paraplegia Debility Pressure ulcer of sacral region, stage 4 Osteomyelitis of pelvis Myocardial infarct Afib Pressure ulcer of sacral region, unstageable Diffuse large B-cell lymphoma Paraplegia Home Medications ?Medication ?Instructions ?Recorded ?Last Taken ?Type losartan 100 mg tablet 50 mg PO DAILY HEART 1 12/23/24 History amiodarone 200 mg tablet 200 mg PO DAILY@1400 HEART 0 12/12/21 Unknown History gabapentin 100 mg capsule 100 mg PO BID 12/12/2112/23 History metoprolol succinate 50 mg 25 mg PO DAILY BP 12/12/21 12/23/24 History tablet,extended release 24 hr Lactobacillus acidophilus 10 10,000 mmu cells PO DAILY @1400 01/19/22 Unknown History billion cell capsule (Probiotic) supplement atorvastatin 40 mg tablet 40 mg PO QHS cholesterol 12/12 Unknown History MINGXIA RED 1 tsp PO DAILY 12/09/24 Unkn own History sennosides 8.6 mg capsule (senna) 17.2 mg PO QHS 12/09 Unknown History warfarin 2 mg tablet 2 mg PO DAILY 12/09/2412/17 History Allergy/AdvReac Type Severity Reaction Status Date / Time prednisone Allergy Intermediate atrial Verified 12/23/24 07:52 fibrillation Family History Father CHF (congestive heart failure) Myocardial infarction Mother CAD (coronary artery disease) Alzheimer disease Surgical History History of colectomy H/O Spinal surgery History of cholecystectomy S/P excisional debridement S/P cholecystectomy Hx of CABG Social History household members: family housing: house number of children: 5 Smoking Status: Never smoker alcohol intake: never substance use type: does not use what type of physical activity do you participate in: other details: leg therapy/hand weights frequency: 5-6 times per week chris/yazidi: [facility] Vital Signs Vital Signs Vital Signs: 12/23/24 07:58 12/23/24 07:58 Temperature 98.4 F Temperature Source Temporal Pulse Rate 62 Respiratory Rate 16 Respiratory Pattern Normal Blood Pressure 164/69 H Blood Pressure Mean 100 Blood Pressure Source Monitor Blood Pressure Position Semi-Fowlers Blood Pressure Location Left Arm Pulse Ox 99 Oxygen Delivery Method Room Air Weight Weight: 83.915 kg Body Mass Index (BMI) 30.7
--- NOTE | 2024-12-23 08:50 | DCINST_ITS ---
Discharge Instructions Diet Discharge Diet: No restrictions DC O2, CPAP, BIPAP needs Home O2 Discharge instructions: No Dressing / Incision Discharge Activity: Return to Normal Activity and May Not Drive (while taking narcotic pain medications.) Dressing / Incision Call your doctor if you observe: Fever of 101 or Higher Follow Up Care Please Follow Up With: Yoim Paulson MD When: Call [phone] for an appointment Test Results: Test results from this visit will be discussed in further detail at your follow- up appointment, if applicable. Discharge Plan Admission Primary Reason for Your Visit: Bladder stones Attending Provider: Yomi Paulson Primary Care Provider: Jennie Peng Instructions Print Language: Mongolian Discharge Orders/Prescriptions Prescriptions: Continued metoprolol succinate 50 mg tablet extended release 24 hr 25 mg PO DAILY gabapentin 100 mg capsule 100 mg PO BID Rx Instructions: ONE DOSE DAILY AND 1 PRN IN EVENING losartan 100 mg tablet 50 mg PO DAILY Rx Instructions: family only gives half a tablet if SBP <120 amiodarone 200 mg tablet 200 mg PO DAILY@1400 Probiotic 10 billion cell Capsule 10,000 mmu cells PO DAILY@1400 atorvastatin 40 mg tablet 40 mg PO QHS Patient Comments: TAKE ONE TABLET BY MOUTH DAILY warfarin 2 mg tablet 2 mg PO DAILY Patient Comments: TO STOP 5 DAYS PRIOR MINGXIA RED 1 tsp PO DAILY senna 8.6 mg capsule 17.2 mg PO QHS Referrals / Follow Up: Yomi Paulson MD [Med Staff - Active Staff] - Jennie Peng MD [Primary Care Provider] - Disposition Disposition (needs filled in before D/C Order can be placed): Home, Self Care
[2024-12-23] MEDS: Cefazolin 2 GM in Syringe IV (09:35)
--- NOTE | 2024-12-23 10:16 | PCM.OPRPT ---
Operative Report (Standard) Operative Information Date of Procedure: 12/23/24 Pre-Operative Diagnosis: Multiple large bladder stones greater than 2.5 cm in size Post-Operative Diagnosis: The same Surgery/Procedure Performed: Cystoscopy laser lithotripsy and breakage of bladder stones and removal of all the fragments. claim examiner: No Type of Anesthesia: General RN Documented Start/Stop Times: Operation Date: 12/23/24 09:10 Case Time Into Pre-Op 12/23/24 07:19 Out of Pre-Op 12/23/24 09:23 Anesthesia Start 12/23/24 09:28 Into Room 12/23/24 09:28 Procedure Start 12/23/24 09:41 Procedure Start Time: :41 Procedure Stop Time: 10:17 Select all DRAINS/GRAFTS/IMPLANTS that apply: Drains Drain details: 20 Lithuanian Cyr Estimated Blood Loss: 0 Specimen collected: No Description of surgery: Patient was taken back to the operating room after smooth induction of general anesthesia. The urethra and genitals were prepped and draped in usual sterile fashion. Went into the bladder using a 24 Lithuanian cystoscope. We used the laser bridge through the scope for continuous irrigation. Then using the laser bridge we introduced a laser fiber into the bladder and the stone in the bladder was trapped against the back wall. The stone measured larger than 2,5cm in total size. multiple large stone. The stone was then lasered using laser lithotripsy the small little pieces all the pieces were evacuated on the bladder. After all the stones were removed then the scope was removed there was minimal bleeding, and new cyr placed. Surgical Findings: Multiple large bladder stones all lasered and removed Complications Complications: No Admit VTE Documentation VTE Present on Admission: No VTE Mechan Device Prophylaxis: SCD's VTE Pharm Prophylaxis ordered?: No
--- NOTE | 2024-12-23 10:32 | PCM.POST.ANE ---
Anesthesia: Postop Eval I Current Vital Signs Temperature: 97 F Pulse Rate: 72 Blood Pressure: 125/64 Respiratory Rate: 16 Pulse Ox: 94 Oxygen Delivery Method: Room Air Assessment Airway patent: Yes Spontaneous unlabored respirations: Yes Mental status: Asleep nausea: No Vomiting: No Anesthesia Complication: No Fluid Hydration Crystalloid volume administer (ml): 800 Total IV fluid infused: 800 Progress Note Anesthesia document: Postop Eval 1 completed: Yes
--- NOTE | 2024-12-23 11:01 | POSTOPAN2_ITS ---
Anesthesia Postop Eval I Sum Postop Eval Completion status Anesthesia document: Postop Eval 1 completed: Yes Anesthesia Postop Eval I Summary Anesthesia Postop Eval I Summary: Anesthesia Postop Eval I: Assessment Summary Airway patent Yes 12/23/24 10:33 [email or web address] Spontaneous unlabored Yes 12/23/24 10:33 [email or web address] respirations Mental status Asleep 12/23/24 10:33 [email or web address] nausea No 12/23/24 10:33 [email or web address] Vomiting No 12/23/24 10:33 [email or web address] Anesthesia Postop Eval I: Fluid Summary Crystalloid volume administer 800 12/23/24 10:33 [email or web address] (ml) Colloids volume administered ( ml) Blood Product volume administered (ml) Total IV fluid infused 800 12/23/24 10:33 [email or web address] Anesthesia Postop Eval I: Summary Notes Anesthesia Complication No 12/23/24 10:33 [email or web address] Anesthesia Complication Comment: Post-operative progress note Anesthesia: Postop Eval II Evaluation Mental status: Awake Pain Level: 0 nausea: No Vomiting: No
--- NOTE | 2024-12-23 11:01 | PCM.POSTANE2 ---
Anesthesia Postop Eval I Sum Postop Eval Completion status Anesthesia document: Postop Eval 1 completed: Yes Anesthesia Postop Eval I Summary Anesthesia Postop Eval I Summary: Anesthesia Postop Eval I: Assessment Summary Airway patent Yes 12/23/24 10:33 [email or web address] Spontaneous unlabored Yes 12/23/24 10:33 [email or web address] respirations Mental status Asleep 12/23/24 10:33 [email or web address] nausea No 12/23/24 10:33 [email or web address] [email or web address] Vomiting No 12/23/24 10:33 [email or web address] Anesthesia Postop Eval I: Fluid Summary Crystalloid volume administer 800 12/23/24 10:33 [email or web address] (ml) Colloids volume administered ( ml) Blood Product volume administered (ml) Total IV fluid infused 800 12/23/24 10:33 [email or web address] Anesthesia Postop Eval I: Summary Notes Anesthesia Complication No 12/23/24 10:33 [email or web address] Anesthesia Complication Comment: Post-operative progress note Anesthesia: Postop Eval II Evaluation Mental status: Awake Pain Level: 0 nausea: No Vomiting: No
== END 2024-12-23 11:54 | disposition home or self-care (01) ==
LOC: SDC 07:12 → AC 07:14
PROVIDERS: PCP Student in an Organized Health Care Education/Training Program; Referring Provider Urology; Visit Provider Urology
PROC: (CPT 52318; principal; 2024-12-23 09:00)
DX: N21.0 Calculus in bladder (principal); I10 Essential (primary) hypertension; I25.2 Old myocardial infarction; Z86.16 Personal history of COVID-19; Z79.899 Other long term (current) drug therapy; Z79.01 Long term (current) use of anticoagulants; Z95.1 Presence of aortocoronary bypass graft
CPT/HCPCS: 52318; 00910; J2405

== ENCOUNTER 2024-12-30 13:07 | Outpatient (RCR) | payer OTHER, SELFPAY ==
[2024-12-19 01:57] VITALS: BP 158/68; PULSE 61; RESP 16; TEMP 36.2; BMI 25.0
[2024-12-30 13:11] VITALS: BP 156/75; PULSE 64; RESP 16; TEMP 36.5; BMI 25.0
--- NOTE | 2024-12-30 15:24 | PN.PCM_ITS ---
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 She had progressive paraplegia. She went to TCU for acute rehab for this progressive paraplegia. During that time she had worsening sacral pressure sore with skin necrosis. Surgery 05/15/21 - Excision necrotic sacral pressure sore, Stage IV, with partial ostectomy for osteomyelitis. Pathology from surgery on 05/15/21 of bone showed acute osteomyelitis. Operative culture, soft tissue, from 05/15/21 was positive for Escherichia coli, Klebsiella, Vanc. Resist. E. gallinarum, Vanc. Resist. E. faecalis. Operative culture, bone, from 05/15/21 was positive for Escherichia coli, Vanc. Resist. E. faecalis, Vanc. Resist. E. gallinarum. She was treated with Meropenem and Vancomycin. Linezolid was started after Vancomycin was stopped. Radiation from 05/17/21 - 06/12/21 18 treatments to T4-T7 area including paraspinal region. 06/06/21- Laparoscopic sigmoid colectomy with creation of end colostomy for fecal diversion. She healed out her ulcers November 2023. She states that she was having issues with her urinary catheter leaking which then caused skin breakdown on her left ischial area a little before Antoine. They have been using dressing supplies that they had left over (Dakin's, selena, aquacel-ag). They thought there might be some improvement in the ulcer, but now that it has been almost a month, they came back for further evaluation and treatment. Wound culture from 11/04/24 positive for Staphylococcus haemolyticus, Staphylococcus epidermidis, Escherichia coli, Corynebacterium striatum, and Cutibacterium acnes and she was treated with Levaquin and Linezolid. Today she denies any fever. Her appetite is ok. Progress of Wound: Left ischial ulcer is slightly smaller today. It is beefy pink ulcer. Laney wound is clear. There is some non viable tissue present in the base of the ulcer. Objective Data Objective Data Vital Signs: Vital Signs Temp Pulse Resp BP O2 Del Method 97.7 F L 64 16 156/75 H Room Air 12/30/24 13:11 12/30/24 13:11 12/30/24 13:11 12/30/24 13:11 12/30/24 13:11 Oxygen Delivery Method Room Air Weight: 150 lb 11.094 oz Body Mass Index (BMI) 25.0 Charges/Coding Procedures Integumentary 111xxx-113xx: 55728 Casie subq tissue 20 sq cm/< Debridement Note Debridement Note Wound debrided: ischial ulcer Laterality: Left Wound Grade/Stage: Stage 3 Type of Debridement: Excisional debridement Anesthesia Used: 5% Lidocaine Gel Depth: Down to and including healthy tissue and in the subcutaneous layer Percentage of wound debrided: 100 Instrument Used: 3mm curette Tissue Removed: Non viable tissue and slough Severity: Fat Layer Exposed Amount of bleeding with debridement: Mild Bleeding Controlled with: Compression and gauze Patient tolerated procedure: Patient tolerated procedure well Post-Debridement Measurements and Additional Note: Post-Debridement Measurements/Treatment - Nurse 1 - General Ulcer Assessment Start: 12/30/24 13:11 Freq: Status: Active Protocol: KRANTHI Activity Type Activity Date Activity User E-sign Co-sign Detail Recorded Client Recorded Date Recorded By Document 12/30/24 13:11 [facility] [id number] 12/30/24 13:14 [facility] 12/30/24 13:11 - Today's Visit Information Type of service Follow-up Visit (Physician/DIRECTOR PAYER ) Arrival Mode Wheelchair Transfer Assistance Will Lift Accompanied by DAUGHTER AND Patient Identification Verified (Name & Yes ) Height and Weight Body Mass Index (BMI) 25.0 BMI Classification Overweight Vital Signs Temperature (97.8 F-99.1 F) 97.7 F L Temperature Source Temporal Pulse Rate (60-100) 64 Pulse Location Monitor Respiratory Rate (12-18) 16 Respiratory rate source Observation Oxygen Delivery Method Room Air Blood Pressure (90/60-120/80) 156/75 H Blood Pressure Mean (mm Hg) 102 Source Monitor Position Sitting Blood Pressure Location Right Arm History Since Last Visit- (Skip if this is Patient's initial visit) Have you changed medications since your No last visit? Any new allergies or adverse reactions No Had a fall/change in ADL's that may No increase risk of falls Signs or symptoms of abuse and/or No neglect since last visit Have you been in the hospital since your No last visit? Has dressing in place as prescribed Yes Has compression in place as prescribed N/A Has offloadiing in place as prescribed N/A Experienced any changes in pain level or No management Left Footwear Slipper Right Footwear Slipper Pain Scale: 0-10 Numeric Is Patient Pain Free? Yes - Nurse 1 - General Ulcer Measurement Start: 12/30/24 13:11 Freq: Status: Active Protocol: Activity Type Activity Date Activity User E-sign Co-sign Detail Recorded Client Recorded Date Recorded By Document 12/30/24 13:11 [facility] [id number] 12/30/24 13:14 [facility] 12/30/24 13:11 Wound Center Nurse 1 #4 l iSCHIAL -Current Size (cm) - Length 1.5 -Current Size (cm) - Width 0.5 -Current Size (cm) - Depth 0.1 -Total Square Cm 0.75 -Date of Last Picture (Recall this 12/30/24 field) -Photo Taken Yes -Tunneling No -Undermining/Tunneling No -Circular Undermining No -Exudate Amt Medium -Exudate Type Serosanguineous -Wound Margin Distinct, Outline Attached -Granulation Amt Medium (34-66%) -Granulation Quality Red -Slough/Fibrin Yes -Necrosis Amt Medium (34-66%) -Necrotic Tissue Type Adherent Slough -Texture (Laney-wound Skin Appearance) Assessed, Scarring -Moisture (Laney-wound Skin Appearance) Assessed, Maceration -Color (Laney-wound Skin Appearance) Assessed -Temperature (Laney-wound Skin No Abnormality Appearance) (Pt Warm) -Tenderness on Palpation (Laney-wound No Skin Appearance) -Ulcer Cleansing Rinsed/ Irrigated with Saline -Foul Odor after Cleansing No -Anesthetic Used 5% Lidocaine Gel - Nurse 2 - General Ulcer CM Notes Start: 12/30/24 13:11 Freq: Status: Active Protocol: Activity Type Activity Date Activity User E-sign Co-sign Detail Recorded Client Recorded Date Recorded By Document 12/30/24 13:27 [id number] 12/30/24 13:32 12/30/24 13:27 Wound Center Nurse 2 -Time 13:27 -Correct Patient Yes -Correct Side, Site, Position Yes -Correct Procedure Yes -Procedure Performed Yes -Type of Procedure Debridement -Clinical Debridement Subcutaneous -Tissue Removed Subcutaneous -Post Debridement (cm) - Length 1.5 -Post Debridement (cm) - Width 0.5 -Post Debridement (cm) - Depth 0.1 -Total Square (Post) (cm) 0.75 -Area of Debridement (cm) - Length 1.5 -Area of Debridement (cm) - Width 0.5 -Total Square (Area) (cm) 0.75 -Tunneling No -Undermining/Tunneling No -Circular Undermining No -Wound/Ulcer Outcome Not Healed -Ulcer Cleansing Rinsed/ Irrigated with Saline -Foul Odor after Cleansing No -Bioengineered Tissue No -Bleeding Controlled with Pressure -Treatment Response Procedure Tolerated Well -Offloading No -Debridement - Subq, 1st 20sq cm Yes Pain Scale: 0-10 Numeric Is Patient Pain Free? Yes - Nurse 3 - General Ulcer D/C NN Start: 12/30/24 13:11 Freq: Status: Active Protocol: Activity Type Activity Date Activity User E-sign Co-sign Detail Recorded Client Recorded Date Recorded By Document 12/30/24 13:42 [place] [id number] 12/30/24 13:58 [place] 12/30/24 13:42 Wound Care Center Nurse 3 #4 l iSCHIAL -Primary Dressing Applied Fibracol Plus 4x4,Silicone Border Foam 4x4 -Fibracol Plus 4x4 1 -Silicone Border Foam 4x4 1 Pain Scale: 0-10 Numeric Is Patient Pain Free? Yes - Visit Discharge Discharge Condition Stable Ambulatory Status Wheelchair Transportation Private Auto Medication Reconcilliation completed & No provided to patient/care provider Clinical Summary of Care Provided Yes Notes: [facility] Assessment/Plan Assessment/Plan (1) 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, stage 3: CODE(S): L89.323 - Pressure ulcer of left buttock, stage 3 (2) Paraplegia: CODE(S): G82.20 - Paraplegia, unspecified (3) Large B-cell lymphoma: CODE(S): C85.10 - Unspecified B-cell lymphoma, unspecified site (4) Chronic indwelling Gutierrez catheter: CODE(S): Z97.8 - Presence of other specified devices PLAN: Plan Patient evaluated at the wound healing center. A wound culture from 11/04/24 positive for Staphylococcus haemolyticus, Staphylococcus epidermidis, Escherichia coli, Corynebacterium striatum, and Cutibacterium acnes and she was treated with Levaquin and Linezolid. Wound care - Fibrocol + lightly moistened, if needed, covered with gauze/ABD daily. Wash area with soap and water daily. Barrier cream to laney wound area. Encourage nutritional supplementation with protein to help the healing process. Follow up 3 weeks. Phone if develop any concerns.
--- NOTE | 2024-12-31 11:08 | WC ---
PHOTO 12/30/24 LEFT ISCHIAL
== END 2025-01-18 23:59 | disposition home or self-care (01) ==
LOC: WC 13:07
PROVIDERS: PCP Student in an Organized Health Care Education/Training Program; Referring Provider Student in an Organized Health Care Education/Training Program; Visit Provider Nurse Practitioner Family
DX: L89.223 Pressure ulcer of left hip, stage 3 (principal); G82.20 Paraplegia, unspecified; Z93.3 Colostomy status; C85.10 Unspecified B-cell lymphoma, unspecified site; T83.031A Leakage of indwelling urethral catheter, initial encounter
CPT/HCPCS: 11042

== ENCOUNTER 2025-02-10 13:15 | Outpatient (RCR) | payer OTHER, SELFPAY ==
[2025-01-19 00:26] VITALS: BP 156/75; PULSE 64; RESP 16; TEMP 36.5; BMI 25.0
[2025-01-20 12:53] VITALS: BP 122/55; PULSE 64; RESP 18; TEMP 36.6; BMI 25.0
--- NOTE | 2025-01-20 15:16 | PN.PCM_ITS ---
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 She had progressive paraplegia. She went to TCU for acute rehab for this progressive paraplegia. During that time she had worsening sacral pressure sore with skin necrosis. Surgery 05/15/21 - Excision necrotic sacral pressure sore, Stage IV, with partial ostectomy for osteomyelitis. Pathology from surgery on 05/15/21 of bone showed acute osteomyelitis. Operative culture, soft tissue, from 05/15/21 was positive for Escherichia coli, Klebsiella, Vanc. Resist. E. gallinarum, Vanc. Resist. E. faecalis. Operative culture, bone, from 05/15/21 was positive for Escherichia coli, Vanc. Resist. E. faecalis, Vanc. Resist. E. gallinarum. She was treated with Meropenem and Vancomycin. Linezolid was started after Vancomycin was stopped. Radiation from 05/17/21 - 06/12/21 18 treatments to T4-T7 area including paraspinal region. 06/06/21- Laparoscopic sigmoid colectomy with creation of end colostomy for fecal diversion. She healed out her ulcers November 2023. She states that she was having issues with her urinary catheter leaking which then caused skin breakdown on her left ischial area a little before Antoine. They have been using dressing supplies that they had left over (Dakin's, selena, aquacel-ag). They thought there might be some improvement in the ulcer, but now that it has been almost a month, they came back for further evaluation and treatment. Wound culture from 11/04/24 positive for Staphylococcus haemolyticus, Staphylococcus epidermidis, Escherichia coli, Corynebacterium striatum, and Cutibacterium acnes and she was treated with Levaquin and Linezolid. Today she denies any fever. Her appetite is ok. Progress of Wound: Left ischial ulcer is slightly smaller today. It is beefy pink ulcer. Laney wound is very excoriated with sloughing skin. Clinically looks like yeast. Patient's states that they were having some issues with her catheter leaking when the maceration started. She denies it being painful but states it is itchy. Objective Data Objective Data Vital Signs: Vital Signs Temp Pulse Resp BP O2 Del Method 97.8 F 64 18 122/55 H Room Air 01/20/25 12:53 01/20/25 12:53 01/20/25 12:53 01/20/25 12:53 01/20/25 12:53 Oxygen Delivery Method Room Air Weight: 150 lb 11.094 oz Body Mass Index (BMI) 25.0 Charges/Coding Procedures Integumentary 111xxx-113xx: 90025 Casie subq tissue 20 sq cm/< Debridement Note Debridement Note Wound debrided: ischial ulcer Laterality: Left Wound Grade/Stage: Stage 3 Type of Debridement: Excisional debridement Anesthesia Used: 5% Lidocaine Gel Depth: Down to and including healthy tissue and in the subcutaneous layer Percentage of wound debrided: 100 Instrument Used: 3mm curette Tissue Removed: Non viable tissue and slough Severity: Fat Layer Exposed Amount of bleeding with debridement: Mild Bleeding Controlled with: Compression and gauze Patient tolerated procedure: Patient tolerated procedure well Post-Debridement Measurements and Additional Note: Post-Debridement Measurements/Treatment WC - Nurse 1 - General Ulcer Assessment Start: 01/20/25 12:53 Freq: Status: Active Protocol: KRANTHI Activity Type Activity Date Activity User E-sign Co-sign Detail Recorded Client Recorded Date Recorded By Document 01/20/25 12:53 GABBY [id number] 01/20/25 13:05 KW 01/20/25 12:53 WC - Today's Visit Information Type of service Follow-up Visit (Physician/EXPERIMENTAL BOX TESTER ) Arrival Mode Wheelchair Accompanied by family Patient Identification Verified (Name & Yes ) Height and Weight Body Mass Index (BMI) 25.0 BMI Classification Overweight Vital Signs Temperature (97.8 F-99.1 F) 97.8 F Temperature Source Temporal Pulse Rate (60-100) 64 Pulse Location Monitor Respiratory Rate (12-18) 18 Respiratory rate source Observation Oxygen Delivery Method Room Air Blood Pressure (90/60-120/80) 122/55 H Blood Pressure Mean (mm Hg) 77 Source Monitor Position Sitting Blood Pressure Location Left Arm History Since Last Visit- (Skip if this is Patient's initial visit) Have you changed medications since your No last visit? Any new allergies or adverse reactions No Had a fall/change in ADL's that may No increase risk of falls Signs or symptoms of abuse and/or No neglect since last visit Have you been in the hospital since your No last visit? Has dressing in place as prescribed Yes Has compression in place as prescribed N/A Has offloadiing in place as prescribed N/A Experienced any changes in pain level or No management Left Footwear No Footwear Right Footwear No Footwear Pain Scale: 0-10 Numeric Is Patient Pain Free? Yes - Nurse 1 - General Ulcer Measurement Start: 01/20/25 12:53 Freq: Status: Active Protocol: Activity Type Activity Date Activity User E-sign Co-sign Detail Recorded Client Recorded Date Recorded By Document 01/20/25 12:53 [id number] 01/20/25 13:05 01/20/25 12:53 Wound Center Nurse 1 #4 l iSCHIAL -Current Size (cm) - Length 1.3 -Current Size (cm) - Width 0.5 -Current Size (cm) - Depth 0.2 -Total Square Cm 0.65 -Date of Last Picture (Recall this 01/20/25 field) -Exudate Amt Small -Exudate Type Serosanguineous -Wound Margin Distinct, Outline Attached -Granulation Amt Large (67-100%) -Granulation Quality [place],Red -Texture (Laney-wound Skin Appearance) Assessed -Moisture (Laney-wound Skin Appearance) Assessed -Color (Laney-wound Skin Appearance) Assessed -Temperature (Laney-wound Skin No Abnormality Appearance) (Pt Warm) -Tenderness on Palpation (Laney-wound No Skin Appearance) -Ulcer Cleansing Soap and Water -Foul Odor after Cleansing No -Anesthetic Used 5% Lidocaine Gel - Nurse 2 - General Ulcer CM Notes Start: 01/20/25 12:53 Freq: Status: Active Protocol: Activity Type Activity Date Activity User E-sign Co-sign Detail Recorded Client Recorded Date Recorded By Document 01/20/25 13:19 [facility] [id number] 01/20/25 13:27 [facility] 01/20/25 13:19 Wound Center Nurse 2 -Time 13:19 -Correct Patient Yes -Correct Side, Site, Position Yes -Correct Procedure Yes -Procedure Performed Yes -Type of Procedure Debridement -Clinical Debridement Subcutaneous -Tissue Removed Subcutaneous -Post Debridement (cm) - Length 1.5 -Post Debridement (cm) - Width 0.7 -Post Debridement (cm) - Depth 0.1 -Total Square (Post) (cm) 1.05 -Area of Debridement (cm) - Length 1.5 -Area of Debridement (cm) - Width 0.7 -Total Square (Area) (cm) 1.05 -Tunneling No -Undermining/Tunneling No -Circular Undermining No -Wound/Ulcer Outcome Not Healed -Ulcer Cleansing Rinsed/ Irrigated with Saline -Foul Odor after Cleansing No -Bioengineered Tissue No -Bleeding Controlled with Pressure -Treatment Response Procedure Tolerated Well -Debridement - Subq, 1st 20sq cm Yes Pain Scale: 0-10 Numeric Is Patient Pain Free? Yes WC - Nurse 3 - General Ulcer D/C NN Start: 01/20/25 12:53 Freq: Status: Active Protocol: Activity Type Activity Date Activity User E-sign Co-sign Detail Recorded Client Recorded Date Recorded By Document 01/20/25 13:37 DL [id number] 01/20/25 13:41 DL 01/20/25 13:37 Wound Care Center Nurse 3 #4 l iSCHIAL -Ulcer Cleansing Rinsed/ Irrigated with Saline -Foul Odor after Cleansing No -Primary Dressing Applied Fibracol Plus 4x4 -Primary Dressing Covered/Secured with Dry Gauze, Secured with Tape -Other Covering ABD/ Silicone tape -Fibracol Plus 4x4 1 -Wound Comment(s) Nystatin Cream to Reddened areas Treatment Response Procedure Tolerated Well Pain Scale: 0-10 Numeric Is Patient Pain Free? No WC - Visit Discharge Discharge Condition Stable Ambulatory Status Wheelchair Transportation [facility] Assessment/Plan Assessment/Plan (1) 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, stage 3: CODE(S): L89.323 - Pressure ulcer of left buttock, stage 3 (2) Paraplegia: CODE(S): G82.20 - Paraplegia, unspecified (3) Large B-cell lymphoma: CODE(S): C85.10 - Unspecified B-cell lymphoma, unspecified site (4) Chronic indwelling Gutierrez catheter: CODE(S): Z97.8 - Presence of other specified devices PLAN: Plan Patient evaluated at the wound healing center. Her laney wound has a pink, macerated rash with some sloughy skin that clinically appears to be yeast. Will start her on Nystatin cream twice daily to this area. Instructed to use the cream until the area is clear and then for an additional week after the rash is clear. Wound care - Fibrocol + lightly moistened, if needed, covered with gauze/ABD daily. Wash area with soap and water daily. Encourage nutritional supplementation with protein to help the healing process. Follow up 3 weeks. Her care will be transferred to Dr. Steele. Phone if develop any concerns.
--- NOTE | 2025-01-27 15:53 | WC ---
Barbra Esparza DRY PASTE SUPERVISOR transfers care of this patient over to Dr. Steele as of 01/27/25
[2025-02-10 13:14] VITALS: BP 131/60; PULSE 63; RESP 18; TEMP 36.5; BMI 25.0
--- NOTE | 2025-02-11 09:42 | WC ---
PHOTO 02/10/25 LEFT ISCHIUM
--- NOTE | 2025-02-11 15:58 | PCM.WC.HP ---
History of Present Illness Date of Service: 02/10/25 Chief Complaint: Left ischial pressure ulceration, stage III History of Wound: This is an 79-year-old female, [facility] by a provider who has transferred to another facility. 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 She had progressive paraplegia. She went to TCU for acute rehab for this progressive paraplegia. During that time she had worsening sacral pressure sore with skin necrosis. Surgery 05/15/21 - Excision necrotic sacral pressure sore, Stage IV, with partial ostectomy for osteomyelitis. Pathology from surgery on 05/15/21 of bone showed acute osteomyelitis. Operative culture, soft tissue, from 05/15/21 was positive for Escherichia coli, Klebsiella, Vanc. Resist. E. gallinarum, Vanc. Resist. E. faecalis. Operative culture, bone, from 05/15/21 was positive for Escherichia coli, Vanc. Resist. E. faecalis, Vanc. Resist. E. gallinarum. She was treated with Meropenem and Vancomycin. Linezolid was started after Vancomycin was stopped. Radiation from 05/17/21 - 06/12/21 18 treatments to T4-T7 area including paraspinal region. 06/06/21- Laparoscopic sigmoid colectomy with creation of end colostomy for fecal diversion. She healed out her ulcers November 2023. She states that she was having issues with her urinary catheter leaking which then caused skin breakdown on her left ischial area a little before Antoine. They have been using dressing supplies that they had left over (Dakin's, selena, aquacel-ag). They thought there might be some improvement in the ulcer, but now that it has been almost a month, they came back for further evaluation and treatment. Wound culture from 11/04/24 positive for Staphylococcus haemolyticus, Staphylococcus epidermidis, Escherichia coli, Corynebacterium striatum, and Cutibacterium acnes and she was treated with Levaquin and Linezolid. The patient denies a history of congestive heart failure, cerebrovascular accident, diabetes mellitus, thyroid disease, pulmonary disease, and renal disease. She has suffered a myocardial infarction in the past, and has had coronary revascularization performed in 2018. She is on long-term systemic anticoagulation with warfarin. [facility] Medical History Chronic anticoagulation History of echocardiogram Wears glasses Wears dentures Uses wheelchair Indwelling urethral catheter present Anemia Non-smoker History of edema Cardiology follow-up encounter Pressure ulcer COVID-19 Decubitus ulcer of left ischium, stage 2 Pressure ulcer of right ischium MCI (mild cognitive impairment) Adrenal disorder Decubitus ulcer of left ischium, stage 4 Chronic indwelling Gutierrez catheter Hypertension Pressure sore UTI (urinary tract infection) Adynamic ileus Abdominal pain History of radiation therapy Neuropathic pain Diffuse large B cell lymphoma Paraplegia Debility Pressure ulcer of sacral region, stage 4 Osteomyelitis of pelvis Myocardial infarct Afib Pressure ulcer of sacral region, unstageable Diffuse large B-cell lymphoma Paraplegia Home Medications ?Medication ?Instructions ?Recorded ?Last Taken ?Type losartan 100 mg tablet 50 mg PO DAILY HEART 10/07/21 12/23/24 History amiodarone 200 mg tablet 200 mg PO DAILY@1400 HEART 12/12/21 Unknown History gabapentin 100 mg capsule 100 mg PO BID 12/12/21 12/23/24 History metoprolol succinate 50 mg 25 mg PO DAILY BP 12/12/21 12/23/24 History tablet,extended release 24 hr Lactobacillus acidophilus 10 10,000 mmu cells PO DAILY@1400 01/19/22 Unknown History billion cell capsule (Probiotic) supplement atorvastatin 40 mg tablet 40 mg PO QHS cholesterol 01/20/22 Unknown History MINGXIA RED 1 tsp PO DAILY 12/09/24 Unknown History sennosides 8.6 mg capsule (senna) 17.2 mg PO QHS 12/09/24 Unknown History warfarin 2 mg tablet 2 mg PO DAILY 12/09/24 12/17/24 History nystatin 100,000 unit/gram topical 1 applic topical BID 10 days #30 01/20/25 Unknown Rx cream grams Allergy/AdvReac Type Severity Reaction Status Date / Time prednisone Allergy Intermediate atrial Verified 12/23/24 07:52 fibrillation Family History Father CHF (congestive heart failure) Myocardial infarction Mother CAD (coronary artery disease) Alzheimer disease Surgical History History of colectomy H/O Spinal surgery History of cholecystectomy S/P excisional debridement S/P cholecystectomy Hx of CABG Social History household members: family housing: house number of children: 5 Smoking Status: Never smoker alcohol intake: never substance use type: does not use what type of physical activity do you participate in: other details: leg therapy/hand weights frequency: 5-6 times per week chris/holiness: [facility] Vital Signs Vital Signs Vital Signs: Weight Weight: 150 lb 11.094 oz Body Mass Index (BMI) 25.0 Physical Exam Const alert, oriented x3, no apparent distress and average body habitus Constitutional Narrative: The patient's BMI is 25.1. General Appearance: cooperative, comfortable and well developed Orientation / Consciousness: awake, oriented to person, oriented to place and oriented to time HEENT normocephalic and head/scalp atraumatic Head and Scalp: normal to inspection, normocephalic and atraumatic Face and Sinus: normal facial exam Nose: external nose normal External Ear: external ears normal Eyes EOMs intact bilaterally General Eye: normal appearance of both eyes Neck full ROM Lymph Lymphatic: Negative for lymphedema Resp normal respiratory effort, normal air movement, no retractions and no use of accessory muscles Effort and Inspection: able to speak in complete sentences GI GI Narrative: The patient has a functional colostomy. Bladder / Kidney Exam: catheter in place Extremity Extremity Narrative: Upper extremities have full ROM. Paralyzed. Skin Wound Narrative: An ulceration is noted on the left ischial region. It is full-thickness, through all layers of the dermis and into the subcutaneous tissues. This is a stage III pressure ulceration. There is no sign of infection or cellulitis. Ulcer margins are reasonably well beveled. Dimensions are documented elsewhere. The base of the ulcer is generally pink and healthy in appearance, with a small amount of bioburden. It appears to be progressing well and nearly healed. There is also a very small ulceration in the sacral area, full-thickness in nature, and nearly healed. Neuro oriented x3 and CN's II-XII intact bilaterally Neuro Narrative: The patient is paraplegic. Sensorium / Orientation: awake, alert, oriented to person, oriented to place and oriented to time Speech: speech normal Psych mental status grossly normal, thought process normal and cooperative Appearance: appropriate Debridement Note Debridement Note Tissue Removed: Non viable tissue and bioburden No debridement was completed: No debridement was completed today Post-Debridement Measurements and Additional Note: Post-Debridement Measurements/Treatment - Nurse 1 - General Ulcer Assessment Start: 01/20/25 12:53 Freq: Status: Active Protocol: KRANTHI Activity Type Activity Date Activity User E-sign Co-sign Detail Recorded Client Recorded Date Recorded By Document 01/20/25 12:53 KW [id number] 01/20/25 13:05 KW Document 02/10/25 13:14 BM [id number] 02/10/25 13:21 BM 01/20/25 02/10/25 12:53 13:14 - Today's Visit Information Type of service Follow-up Visit Follow-up Visit (Physician/BANK RECONCILIATOR (Physician/BANK RECONCILIATOR ) ) Arrival Mode Wheelchair Wheelchair Transfer Assistance Will Lift Accompanied by family Patient Identification Verified (Name & Yes Yes ) Patient Requires Transmission-Based No Precautions Safety Precautions Fall Prevention Height and Weight Body Mass Index (BMI) 25.0 25.0 BMI Classification Overweight Overweight Vital Signs Temperature (97.8 F-99.1 F) 97.8 F 97.7 F L Temperature Source Temporal Temporal Pulse Rate (60-100) 64 63 Pulse Location Monitor Monitor Respiratory Rate (12-18) 18 18 Respiratory rate source Observation Observation Oxygen Delivery Method Room Air Room Air Blood Pressure (90/60-120/80) 122/55 H 131/60 H Blood Pressure Mean 77 83 Source Monitor Monitor Position Sitting Sitting Blood Pressure Location Left Arm Left Arm History Since Last Visit- (Skip if this is Patient's initial visit) Have you changed medications since your No No last visit? Any new allergies or adverse reactions No No Had a fall/change in ADL's that may No No increase risk of falls Signs or symptoms of abuse and/or No No neglect since last visit Have you been in the hospital since your No No last visit? Has dressing in place as prescribed Yes Yes Has compression in place as prescribed N/A N/A Has offloadiing in place as prescribed N/A N/A Experienced any changes in pain level or No No management Left Footwear No Footwear Right Footwear No Footwear Pain Scale: 0-10 Numeric Is Patient Pain Free? Yes Yes WC - Nurse 1 - General Ulcer Measurement Start: 01/20/25 12:53 Freq: Status: Active Protocol: Activity Type Activity Date Activity User E-sign Co-sign Detail Recorded Client Recorded Date Recorded By Document 01/20/25 12:53 [id number] 01/20/25 13:05 Document 02/10/25 13:21 [facility] [id number] 02/10/25 13:23 [facility] 01/20/25 02/10/25 12:53 13:21 [facility] Nurse 1 #4 l iSCHIAL -Current Size (cm) - Length 1.3 0.1 -Current Size (cm) - Width 0.5 0.1 -Current Size (cm) - Depth 0.2 0.1 -Total Square Cm 0.65 0.01 -Date of Last Picture (Recall this 01/20/25 02/10/25 field) -Photo Taken Yes -Tunneling No -Undermining/Tunneling No -Circular Undermining No -Exudate Amt Small -Exudate Type Serosanguineous -Wound Margin Distinct, Outline Attached -Granulation Amt Large (67-100%) -Granulation Quality [place],Red -Texture (Laney-wound Skin Appearance) Assessed Assessed -Moisture (Laney-wound Skin Appearance) Assessed Assessed -Color (Laney-wound Skin Appearance) Assessed Assessed -Temperature (Laney-wound Skin No Abnormality No Abnormality Appearance) (Pt Warm) (Pt Warm) -Tenderness on Palpation (Laney-wound No No Skin Appearance) -Ulcer Cleansing Soap and Water Rinsed/ Irrigated with Saline -Foul Odor after Cleansing No -Anesthetic Used 5% Lidocaine 5% Lidocaine Gel Gel WC - Nurse 2 - General Ulcer CM Notes Start: 01/20/25 12:53 Freq: Status: Active Protocol: Activity Type Activity Date Activity User E-sign Co-sign Detail Recorded Client Recorded Date Recorded By Document 01/20/25 13:19 [facility] [id number] 01/20/25 13:27 [facility] Document 02/10/25 13:34 [id number] 02/10/25 13:41 01/20/25 02/10/25 13:19 13:34 Wound Center Nurse 2 #4 l iSCHIAL -Time 13:19 13:34 -Correct Patient Yes Yes -Correct Side, Site, Position Yes Yes -Correct Procedure Yes No -Procedure Performed Yes No -Type of Procedure Debridement -Clinical Debridement Subcutaneous -Tissue Removed Subcutaneous -Post Debridement (cm) - Length 1.5 -Post Debridement (cm) - Width 0.7 -Post Debridement (cm) - Depth 0.1 -Total Square (Post) (cm) 1.05 -Area of Debridement (cm) - Length 1.5 -Area of Debridement (cm) - Width 0.7 -Total Square (Area) (cm) 1.05 -Tunneling No -Undermining/Tunneling No -Circular Undermining No -Wound/Ulcer Outcome Not Healed Healed- Epithelialized -Ulcer Cleansing Rinsed/ Irrigated with Saline -Foul Odor after Cleansing No No -Bioengineered Tissue No No -Bleeding Controlled with Pressure NA -Treatment Response Procedure Tolerated Well -Debridement - Subq, 1st 20sq cm Yes Pain Scale: 0-10 Numeric Is Patient Pain Free? Yes Yes - Nurse 3 - General Ulcer D/C NN Start: 01/20/25 12:53 Freq: Status: Active Protocol: Activity Type Activity Date Activity User E-sign Co-sign Detail Recorded Client Recorded Date Recorded By Document 01/20/25 13:37 DL [id number] 01/20/25 13:41 DL Document 02/10/25 14:00 KW [id number] 02/10/25 14:01 KW 01/20/25 02/10/25 13:37 14:00 [facility] Nurse 3 #4 l iSCHIAL -Ulcer Cleansing Rinsed/ Irrigated with Saline -Foul Odor after Cleansing No -Primary Dressing Applied Fibracol Plus Silicone Border 4x4 Foam 6x6 -Primary Dressing Covered/Secured with Dry Gauze, Secured with Tape -Other Covering ABD/ Silicone tape -Fibracol Plus 4x4 1 -Silicone Border Foam 6x6 1 -Wound Comment(s) Nystatin Cream to Reddened areas #1 Sacral cluster -Primary Dressing Applied Fibracol Plus 4x4,Silicone Border Foam 4x4 -Fibracol Plus 4x4 1 -Silicone Border Foam 4x4 1 Treatment Response Procedure Tolerated Well Pain Scale: 0-10 Numeric Is Patient Pain Free? No Yes WC - Visit Discharge Discharge Condition Stable Stable Ambulatory Status Wheelchair Ambulatory, Wheelchair Transportation [facility] Auto Medication Reconcilliation completed & No provided to patient/care provider Clinical Summary of Care Provided Yes Charges/Coding Visit Charges Office Visits / Consults: [id number] OV L4 New 45min Assessment/Plan Assessment/Plan (1) 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, stage 3: CODE(S): L89.323 - Pressure ulcer of left buttock, stage 3 (2) Paraplegia: CODE(S): G82.20 - Paraplegia, unspecified (3) Large B-cell lymphoma: CODE(S): C85.10 - Unspecified B-cell lymphoma, unspecified site (4) Chronic indwelling Gutierrez catheter: CODE(S): Z97.8 - Presence of other specified devices (5) Non-smoker: CODE(S): Z78.9 - Other specified health status (6) Hypertension: CODE(S): I10 - Essential (primary) hypertension (7) Debility: CODE(S): R53.81 - Other malaise (8) Myocardial infarct: CODE(S): I21.9 - Acute myocardial infarction, unspecified (9) Afib: CODE(S): I48.91 - Unspecified atrial fibrillation (10) Diffuse large B-cell lymphoma: CODE(S): C83.30 - Diffuse large B-cell lymphoma, unspecified site QUALIFIERS: Lymphoma site: extranodal excluding spleen and other solid organs Qualified Code(s): C83.39 - Diffuse large B-cell lymphoma, extranodal and solid organ sites (11) Chronic anticoagulation: CODE(S): Z79.01 - long term care phlebotomist (current) use of anticoagulants PLAN: Plan This is an 79-year-old paraplegic female with a stage III pressure ulceration at the site of the left ischium. It appears to be improving with current management. We are to continue the use of lightly moistened Fibracol topically to the ulcer on a daily basis. Nystatin cream will be applied to the intact laney-ulcer skin once or twice daily. The patient has been instructed in the appropriate means of application. Continued offloading measures have been advised. The patient has a Roho cushion and an air mattress, and frequent repositioning has been recommended. A very small healing ulceration is noted in the sacral area, which is nearly healed. The patient is to continue using moistened Fibracol at this site. The patient has been advised to continue with a healthy diet and nutritional supplements. She is to follow-up in 2 weeks for reevaluation. Total time: 45 minutes
== END 2025-02-17 23:59 | disposition home or self-care (01) ==
LOC: WC 13:15
PROVIDERS: PCP Student in an Organized Health Care Education/Training Program; Referring Provider Student in an Organized Health Care Education/Training Program; Visit Provider Surgery
DX: L89.223 Pressure ulcer of left hip, stage 3 (principal); C83.398 Diffuse large B-cell lymphoma of other extranodal and solid organ sites; G82.20 Paraplegia, unspecified; I48.91 Unspecified atrial fibrillation; R53.81 Other malaise; I10 Essential (primary) hypertension; Z92.3 Personal history of irradiation; Z79.01 Long term (current) use of anticoagulants; Z79.899 Other long term (current) drug therapy
CPT/HCPCS: 11042; 99213; G0463

== ENCOUNTER 2025-03-17 13:35 | Outpatient (RCR) | payer OTHER, SELFPAY ==
[2025-02-18 00:11] VITALS: BP 131/60; PULSE 63; RESP 18; TEMP 36.5; BMI 25.0
[2025-02-24 13:11] VITALS: BP 121/52; PULSE 60; RESP 16; TEMP 36.1; BMI 25.0
--- NOTE | 2025-02-25 10:44 | WC ---
PHOTO 02/24/25 LEFT ISCHIUM
--- NOTE | 2025-02-25 10:45 | WC ---
PHOTO 02/24/25 SACRAL
--- NOTE | 2025-02-26 12:39 | HP.PCM_ITS ---
History of Present Illness Date of Service: 02/24/25 Chief Complaint: Left ischial pressure ulceration, stage III History of Wound: This is an 79-year-old female, [facility] by a provider who has transferred to another facility. 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 She had progressive paraplegia. She went to TCU for acute rehab for this progressive paraplegia. During that time she had worsening sacral pressure sore with skin necrosis. Surgery 05/15/21 - Excision necrotic sacral pressure sore, Stage IV, with partial ostectomy for osteomyelitis. Pathology from surgery on 05/15/21 of bone showed acute osteomyelitis. Operative culture, soft tissue, from 05/15/21 was positive for Escherichia coli, Klebsiella, Vanc. Resist. E. gallinarum, Vanc. Resist. E. faecalis. Operative culture, bone, from 05/15/21 was positive for Escherichia coli, Vanc. Resist. E. faecalis, Vanc. Resist. E. gallinarum. She was treated with Meropenem and Vancomycin. Linezolid was started after Vancomycin was stopped. Radiation from 05/17/21 - 06/12/21 18 treatments to T4-T7 area including paraspinal region. 06/06/21- Laparoscopic sigmoid colectomy with creation of end colostomy for fecal diversion. She healed out her ulcers November 2023. She states that she was having issues with her urinary catheter leaking which then caused skin breakdown on her left ischial area a little before Antoine. They have been using dressing supplies that they had left over (Dakin's, selena, aquacel-ag). They thought there might be some improvement in the ulcer, but now that it has been almost a month, they came back for further evaluation and treatment. Wound culture from 11/04/24 positive for Staphylococcus haemolyticus, Staphylococcus epidermidis, Escherichia coli, Corynebacterium striatum, and Cutibacterium acnes and she was treated with Levaquin and Linezolid. The patient denies a history of congestive heart failure, cerebrovascular accident, diabetes mellitus, thyroid disease, pulmonary disease, and renal disease. She has suffered a myocardial infarction in the past, and has had coronary revascularization performed in 2018. She is on long-term systemic anticoagulation with warfarin. [facility] Medical History Chronic anticoagulation History of echocardiogram Wears glasses Wears dentures Uses wheelchair Indwelling urethral catheter present Anemia Non-smoker History of edema Cardiology follow-up encounter Pressure ulcer COVID-19 Decubitus ulcer of left ischium, stage 2 Pressure ulcer of right ischium MCI (mild cognitive impairment) Adrenal disorder Decubitus ulcer of left ischium, stage 4 Chronic indwelling Gutierrez catheter Hypertension Pressure sore UTI (urinary tract infection) Adynamic ileus Abdominal pain History of radiation therapy Neuropathic pain Diffuse large B cell lymphoma Paraplegia Debility Pressure ulcer of sacral region, stage 4 Osteomyelitis of pelvis Myocardial infarct Afib Pressure ulcer of sacral region, unstageable Diffuse large B-cell lymphoma Paraplegia Home Medications ?Medication ?Instructions ?Recorded ?Last Taken ?Type losartan 100 mg tablet 50 mg PO DAILY HEART 1 12/23/24 History amiodarone 200 mg tablet 200 mg PO DAILY@1400 HEART 0 12/12/21 Unknown History gabapentin 100 mg capsule 100 mg PO BID 12/12/2112/23 History metoprolol succinate 50 mg 25 mg PO DAILY BP 12/12/21 12/23/24 History tablet,extended release 24 hr Lactobacillus acidophilus 10 10,000 mmu cells PO DAILY @1400 01/19/22 Unknown History billion cell capsule (Probiotic) supplement atorvastatin 40 mg tablet 40 mg PO QHS cholesterol 12/12 Unknown History MINGXIA RED 1 tsp PO DAILY 12/09/24 Unkn own History sennosides 8.6 mg capsule (senna) 17.2 mg PO QHS 12/09 Unknown History warfarin 2 mg tablet 2 mg PO DAILY 12/09/2412/17 History nystatin 100,000 unit/gram topical 1 applic topical BI D 10 days #30 01/20/25 Unknown Rx cream grams Allergy/AdvReac Type Severity Reaction Status Date / Time prednisone Allergy Intermediate atrial Verified 12/23/24 07:52 fibrillation Family History Father CHF (congestive heart failure) Myocardial infarction Mother CAD (coronary artery disease) Alzheimer disease Surgical History History of colectomy H/O Spinal surgery History of cholecystectomy S/P excisional debridement S/P cholecystectomy Hx of CABG Social History household members: family housing: house number of children: 5 Smoking Status: Never smoker alcohol intake: never substance use type: does not use what type of physical activity do you participate in: other details: leg therapy/hand weights frequency: 5-6 times per week chris/catholic: [facility] Vital Signs Vital Signs Vital Signs: Weight Weight: 150 lb 11.094 oz Body Mass Index (BMI) 25.0 Physical Exam Const alert, oriented x3, no apparent distress and average body habitus Constitutional Narrative: The patient's BMI is 25.1. General Appearance: cooperative, comfortable and well developed Orientation / Consciousness: awake, oriented to person, oriented to place and oriented to time HEENT normocephalic and head/scalp atraumatic Head and Scalp: normal to inspection, normocephalic and atraumatic Face and Sinus: normal facial exam Nose: external nose normal External Ear: external ears normal Eyes EOMs intact bilaterally General Eye: normal appearance of both eyes Neck full ROM Lymph Lymphatic: Negative for lymphedema Resp normal respiratory effort, normal air movement, no retractions and no use of accessory muscles Effort and Inspection: able to speak in complete sentences GI GI Narrative: The patient has a functional colostomy. Bladder / Kidney Exam: catheter in place Extremity Extremity Narrative: Upper extremities have full ROM. Paralyzed. Skin Wound Narrative: An ulceration is noted on the left ischial region. It is full-thickness, through all layers of the dermis and into the subcutaneous tissues. This is a stage III pressure ulceration. There is no significant sign of infection or cellulitis. Ulcer margins are reasonably well beveled. Dimensions are documented elsewhere. The ulceration appears to have enlarged in size since the last visit. The base of the ulcer is generally pink and healthy in appearance, with a small amount of bioburden. The laney-ulcer skin appears somewhat reddened and inflamed. The ulceration in the sacral area appears to be healed and epithelialized. Neuro oriented x3 and CN's II-XII intact bilaterally Neuro Narrative: The patient is paraplegic. Sensorium / Orientation: awake, alert, oriented to person, oriented to place and oriented to time Speech: speech normal Psych mental status grossly normal, thought process normal and cooperative Appearance: appropriate Debridement Note Debridement Note Wound debrided: Left ischial pressure ulceration Laterality: Left Wound Grade/Stage: Stage III Type of Debridement: Excisional debridement Anesthesia Used: 5% Lidocaine Gel Depth: Down to and including healthy tissue and in the subcutaneous layer Percentage of wound debrided: 100 Instrument Used: 5mm curette Tissue Removed: Non viable tissue and bioburden Severity: Fat Layer Exposed Amount of bleeding with debridement: Mild Bleeding Controlled with: Compression and gauze Patient tolerated procedure: Patient tolerated procedure well No debridement was completed: No debridement was completed today Post-Debridement Measurements and Additional Note: Post-Debridement Measurements/Treatment WC - Nurse 1 - General Ulcer Assessment Start: 02/24/25 13:11 Freq: Status: Active Protocol: KRANTHI Activity Type Activity Date Activity User E-sign Co-sign Detail Recorded Client Recorded Date Recorded By Document 02/24/25 13:11 DL [id number] 02/24/25 13:16 DL 02/24/25 13:11 - Today's Visit Information Type of service Follow-up Visit (Physician/[employer]ROUTE [employer]OLLER ) Arrival Mode Wheelchair Transfer Assistance Will Lift Transfer Assist (Other) x2 Patient Identification Verified (Name & Yes ) Patient Requires Transmission-Based No Precautions Height and Weight Body Mass Index (BMI) 25.0 BMI Classification Overweight Vital Signs Temperature (97.8 F-99.1 F) 96.9 F L Temperature Source Temporal Pulse Rate (60-100) 60 Pulse Location Monitor Respiratory Rate (12-18) 16 Respiratory rate source Observation Blood Pressure (90/60-120/80) 121/52 H Blood Pressure Mean 75 Source Monitor History Since Last Visit- (Skip if this is Patient's initial visit) Have you changed medications since your No last visit? Any new allergies or adverse reactions No Had a fall/change in ADL's that may No increase risk of falls Signs or symptoms of abuse and/or No neglect since last visit Have you been in the hospital since your No last visit? Has dressing in place as prescribed Yes Has compression in place as prescribed N/A Has offloadiing in place as prescribed Yes Experienced any changes in pain level or No management Pain Scale: 0-10 Numeric Is Patient Pain Free? Yes - Nurse 1 - General Ulcer Measurement Start: 02/24/25 13:11 Freq: Status: Active Protocol: Activity Type Activity Date Activity User E-sign Co-sign Detail Recorded Client Recorded Date Recorded By Document 02/24/25 13:11 DL [id number] 02/24/25 13:16 DL 02/24/25 13:11 Wound Center Nurse 1 #4 l iSCHIAL -Current Size (cm) - Length 2.5 -Current Size (cm) - Width 2.2 -Current Size (cm) - Depth 0.1 -Total Square Cm 5.50 -Photo Taken Yes -Exudate Amt Medium -Wound Margin Distinct, Outline Attached -Granulation Amt Medium (34-66%) -Granulation Quality Red -Necrosis Amt Medium (34-66%) -Necrotic Tissue Type Adherent Slough -Structure Exposed N/A -Texture (Laney-wound Skin Appearance) Scarring -Moisture (Laney-wound Skin Appearance) No Abnormality -Color (Laney-wound Skin Appearance) No Abnormality -Temperature (Laney-wound Skin No Abnormality Appearance) (Pt Warm) -Tenderness on Palpation (Laney-wound No Skin Appearance) -Ulcer Cleansing Soap and Water -Foul Odor after Cleansing No -Anesthetic Used 5% Lidocaine Gel #1 Sacral cluster -Current Size (cm) - Length 0.1 -Current Size (cm) - Width 0.1 -Current Size (cm) - Depth 0.1 -Total Square Cm 0.01 -Photo Taken Yes -Exudate Amt None Present -Wound Margin Flat & Intact -Granulation Amt Large (67-100%) -Granulation Quality Pale,[place] -Necrosis Amt None Present (0 %) -Structure Exposed N/A -Texture (Laney-wound Skin Appearance) Scarring -Moisture (Laney-wound Skin Appearance) No Abnormality -Color (Laney-wound Skin Appearance) Assessed -Temperature (Laney-wound Skin No Abnormality Appearance) (Pt Warm) -Tenderness on Palpation (Laney-wound No Skin Appearance) -Ulcer Cleansing Soap and Water -Foul Odor after Cleansing No WC - Nurse 2 - General Ulcer CM Notes Start: 02/24/25 13:11 Freq: Status: Active Protocol: Activity Type Activity Date Activity User E-sign Co-sign Detail Recorded Client Recorded Date Recorded By Document 02/24/25 13:30 [id number] 02/24/25 13:35 GM 02/24/25 13:30 Wound Center Nurse 2 #4 l iSCHIAL -Time 13:30 -Correct Patient Yes -Correct Side, Site, Position Yes -Correct Procedure Yes -Procedure Performed Yes -Type of Procedure Debridement -Clinical Debridement Subcutaneous -Tissue Removed Subcutaneous -Post Debridement (cm) - Length 3.5 -Post Debridement (cm) - Width 2.0 -Post Debridement (cm) - Depth 0.1 -Total Square (Post) (cm) 7.00 -Area of Debridement (cm) - Length 3.5 -Area of Debridement (cm) - Width 2.0 -Total Square (Area) (cm) 7.00 -Tunneling No -Undermining/Tunneling No -Circular Undermining No -Wound/Ulcer Outcome Not Healed -Ulcer Cleansing Rinsed/ Irrigated with Saline -Foul Odor after Cleansing No -Bioengineered Tissue No -Bleeding Controlled with Pressure -Treatment Response Procedure Tolerated Well -Offloading No -Assistive Device(s) Wheelchair -Pressure Reduction Wheelchair cushion -Debridement - Subq, 1st 20sq cm Yes #1 Sacral cluster -Time 13:32 -Correct Patient Yes -Correct Side, Site, Position Yes -Correct Procedure No -Procedure Performed No -Tunneling No -Undermining/Tunneling No -Circular Undermining No -Wound/Ulcer Outcome Healed- Epithelialized -Ulcer Cleansing Not Cleansed -Foul Odor after Cleansing No -Bioengineered Tissue No -Bleeding Controlled with NA -Offloading No Pain Scale: 0-10 Numeric Is Patient Pain Free? Yes Charges/Coding Procedures Integumentary [id number]: [id number] Casie subq tissue 20 sq cm/< Assessment/Plan Assessment/Plan (1) 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, stage 3: CODE(S): L89.323 - Pressure ulcer of left buttock, stage 3 (2) Paraplegia: CODE(S): G82.20 - Paraplegia, unspecified (3) Large B-cell lymphoma: CODE(S): C85.10 - Unspecified B-cell lymphoma, unspecified site (4) Chronic indwelling Gutierrez catheter: CODE(S): Z97.8 - Presence of other specified devices (5) Non-smoker: CODE(S): Z78.9 - Other specified health status (6) Hypertension: CODE(S): I10 - Essential (primary) hypertension (7) Debility: CODE(S): R53.81 - Other malaise (8) Myocardial infarct: CODE(S): I21.9 - Acute myocardial infarction, unspecified (9) Afib: CODE(S): I48.91 - Unspecified atrial fibrillation (10) Diffuse large B-cell lymphoma: CODE(S): C83.30 - Diffuse large B-cell lymphoma, unspecified site QUALIFIERS: Lymphoma site: extranodal excluding spleen and other solid organs Qualified Code(s): C83.39 - Diffuse large B-cell lymphoma, extranodal and solid organ sites (11) Chronic anticoagulation: CODE(S): Z79.01 - salvage determiner (current) use of anticoagulants PLAN: Plan This is an 79-year-old paraplegic female with a stage III pressure ulceration at the site of the left ischium. We are to continue the use of lightly moistened Fibracol topically to the ulcer on a daily basis. The patient and her family have been instructed in appropriate means of application. The laney-ulcer skin appears somewhat inflamed and macerated, likely due to leakage from her Gutierrez catheter, which has been acknowledged by the patient's family. They have been encouraged to change her undergarments as necessary to avoid prolonged period of moisture. We are to implement the use of a skin barrier protectant to the laney- ulcer skin as well. Continued offloading measures have been advised. The patient has a Roho cushion and an air mattress, and frequent repositioning has been recommended. The patient's sacral ulceration appears to be healed. The patient has been advised to continue with a healthy diet and nutritional supplements. She is to follow-up in 1 week for reevaluation. Total time: 25 minutes
[2025-03-03 13:42] VITALS: BP 150/69; PULSE 58; RESP 18; TEMP 35.7; BMI 25.0
--- NOTE | 2025-03-04 08:44 | WC ---
PHOTO 03/03/25 ISCHIUM
--- NOTE | 2025-03-05 12:27 | HP.PCM_ITS ---
History of Present Illness Date of Service: 03/03/25 Chief Complaint: Left ischial pressure ulceration, stage III History of Wound: This is an 79-year-old female, [facility] by a provider who has transferred to another facility. 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 She had progressive paraplegia. She went to TCU for acute rehab for this progressive paraplegia. During that time she had worsening sacral pressure sore with skin necrosis. Surgery 05/15/21 - Excision necrotic sacral pressure sore, Stage IV, with partial ostectomy for osteomyelitis. Pathology from surgery on 05/15/21 of bone showed acute osteomyelitis. Operative culture, soft tissue, from 05/15/21 was positive for Escherichia coli, Klebsiella, Vanc. Resist. E. gallinarum, Vanc. Resist. E. faecalis. Operative culture, bone, from 05/15/21 was positive for Escherichia coli, Vanc. Resist. E. faecalis, Vanc. Resist. E. gallinarum. She was treated with Meropenem and Vancomycin. Linezolid was started after Vancomycin was stopped. Radiation from 05/17/21 - 06/12/21 18 treatments to T4-T7 area including paraspinal region. 06/06/21- Laparoscopic sigmoid colectomy with creation of end colostomy for fecal diversion. She healed out her ulcers November 2023. She states that she was having issues with her urinary catheter leaking which then caused skin breakdown on her left ischial area a little before Antoine. They have been using dressing supplies that they had left over (Dakin's, selena, aquacel-ag). They thought there might be some improvement in the ulcer, but now that it has been almost a month, they came back for further evaluation and treatment. Wound culture from 11/04/24 positive for Staphylococcus haemolyticus, Staphylococcus epidermidis, Escherichia coli, Corynebacterium striatum, and Cutibacterium acnes and she was treated with Levaquin and Linezolid. The patient denies a history of congestive heart failure, cerebrovascular accident, diabetes mellitus, thyroid disease, pulmonary disease, and renal disease. She has suffered a myocardial infarction in the past, and has had coronary revascularization performed in 2018. She is on long-term systemic anticoagulation with warfarin. [facility] Medical History Chronic anticoagulation History of echocardiogram Wears glasses Wears dentures Uses wheelchair Indwelling urethral catheter present Anemia Non-smoker History of edema Cardiology follow-up encounter Pressure ulcer COVID-19 Decubitus ulcer of left ischium, stage 2 Pressure ulcer of right ischium MCI (mild cognitive impairment) Adrenal disorder Decubitus ulcer of left ischium, stage 4 Chronic indwelling Gutierrez catheter Hypertension Pressure sore UTI (urinary tract infection) Adynamic ileus Abdominal pain History of radiation therapy Neuropathic pain Diffuse large B cell lymphoma Paraplegia Debility Pressure ulcer of sacral region, stage 4 Osteomyelitis of pelvis Myocardial infarct Afib Pressure ulcer of sacral region, unstageable Diffuse large B-cell lymphoma Paraplegia Home Medications ?Medication ?Instructions ?Recorded ?Last Taken ?Type losartan 100 mg tablet 50 mg PO DAILY HEART 1 12/23/24 History amiodarone 200 mg tablet 200 mg PO DAILY@1400 HEART 0 12/12/21 Unknown History gabapentin 100 mg capsule 100 mg PO BID 12/12/2112/23 History metoprolol succinate 50 mg 25 mg PO DAILY BP 12/12/21 12/23/24 History tablet,extended release 24 hr Lactobacillus acidophilus 10 10,000 mmu cells PO DAILY @1400 01/19/22 Unknown History billion cell capsule (Probiotic) supplement atorvastatin 40 mg tablet 40 mg PO QHS cholesterol 12/12 Unknown History MINGXIA RED 1 tsp PO DAILY 12/09/24 Unkn own History sennosides 8.6 mg capsule (senna) 17.2 mg PO QHS 12/09 Unknown History warfarin 2 mg tablet 2 mg PO DAILY 12/09/2412/17 History nystatin 100,000 unit/gram topical 1 applic topical BI D 10 days #30 01/20/25 Unknown Rx cream grams Allergy/AdvReac Type Severity Reaction Status Date / Time prednisone Allergy Intermediate atrial Verified 12/23/24 07:52 fibrillation Family History Father CHF (congestive heart failure) Myocardial infarction Mother CAD (coronary artery disease) Alzheimer disease Surgical History History of colectomy H/O Spinal surgery History of cholecystectomy S/P excisional debridement S/P cholecystectomy Hx of CABG Social History household members: family housing: house number of children: 5 Smoking Status: Never smoker alcohol intake: never substance use type: does not use what type of physical activity do you participate in: other details: leg therapy/hand weights frequency: 5-6 times per week chris/pentecostalism: [facility] Vital Signs Vital Signs Vital Signs: Weight Weight: 150 lb 11.094 oz Body Mass Index (BMI) 25.0 Physical Exam Const alert, oriented x3, no apparent distress and average body habitus Constitutional Narrative: The patient's BMI is 25.1. General Appearance: cooperative, comfortable and well developed Orientation / Consciousness: awake, oriented to person, oriented to place and oriented to time HEENT normocephalic and head/scalp atraumatic Head and Scalp: normal to inspection, normocephalic and atraumatic Face and Sinus: normal facial exam Nose: external nose normal External Ear: external ears normal Eyes EOMs intact bilaterally General Eye: normal appearance of both eyes Neck full ROM Lymph Lymphatic: Negative for lymphedema Resp normal respiratory effort, normal air movement, no retractions and no use of accessory muscles Effort and Inspection: able to speak in complete sentences GI GI Narrative: The patient has a functional colostomy. Bladder / Kidney Exam: catheter in place Extremity Extremity Narrative: Upper extremities have full ROM. Paralyzed. Skin Wound Narrative: An ulceration is noted on the left ischial region. It is full-thickness, through all layers of the dermis and into the subcutaneous tissues. This is a stage III pressure ulceration. There is no significant sign of infection or cellulitis. Ulcer margins are well beveled. Dimensions are documented elsewhere. The ulceration has decreased in size since the last visit. The base of the ulcer is generally pink and healthy in appearance, with a small amount of bioburden. The reddened, macerated, and inflamed laney-ulcer skin is much improved. The ulceration in the sacral area remains healed and epithelialized. Neuro oriented x3 and CN's II-XII intact bilaterally Neuro Narrative: The patient is paraplegic. Sensorium / Orientation: awake, alert, oriented to person, oriented to place and oriented to time Speech: speech normal Psych mental status grossly normal, thought process normal and cooperative Appearance: appropriate Debridement Note Debridement Note Wound debrided: Left ischial pressure ulceration Laterality: Left Wound Grade/Stage: Stage III Type of Debridement: Excisional debridement Anesthesia Used: 5% Lidocaine Gel Depth: Down to and including healthy tissue and in the subcutaneous layer Percentage of wound debrided: 100 Instrument Used: 3mm curette Tissue Removed: Bioburden and devitalized tissue Severity: Fat Layer Exposed Amount of bleeding with debridement: Mild Bleeding Controlled with: Compression and gauze Patient tolerated procedure: Patient tolerated procedure well Post-Debridement Measurements and Additional Note: Post-Debridement Measurements/Treatment WC - Nurse 1 - General Ulcer Assessment Start: 02/24/25 13:11 Freq: Status: Active Protocol: NICOLAS.FLACO Activity Type Activity Date Activity User E-sign Co-sign Detail Recorded Client Recorded Date Recorded By Document 02/24/25 13:11 DL [id number] 02/24/25 13:16 DL Document 03/03/25 13:42 KW [id number] 03/03/25 13:43 KW 02/24/25 03/03/25 13:11 13:42 WC - Today's Visit Information Type of service Follow-up Visit Follow-up Visit (Physician/TAKE DOWN INSPECTOR (Physician/TAKE DOWN INSPECTOR ) ) Arrival Mode Wheelchair Wheelchair Transfer Assistance Will Lift Will Lift Transfer Assist (Other) x2 Patient Identification Verified (Name & Yes Yes ) Patient Requires Transmission-Based No Precautions Height and Weight Body Mass Index (BMI) 25.0 25.0 BMI Classification Overweight Overweight Vital Signs Temperature (97.8 F-99.1 F) 96.9 F L 96.2 F L Temperature Source Temporal Temporal Pulse Rate (60-100) 60 58 L Pulse Location Monitor Monitor Respiratory Rate (12-18) 16 18 Respiratory rate source Observation Observation Oxygen Delivery Method Room Air Blood Pressure (90/60-120/80) 121/52 H 150/69 H Blood Pressure Mean 75 96 Source Monitor Monitor Position Semi-Fowlers Blood Pressure Location Left Arm History Since Last Visit- (Skip if this is Patient's initial visit) Have you changed medications since your No No last visit? Any new allergies or adverse reactions No No Had a fall/change in ADL's that may No No increase risk of falls Signs or symptoms of abuse and/or No No neglect since last visit Have you been in the hospital since your No No last visit? Has dressing in place as prescribed Yes Yes Has compression in place as prescribed N/A N/A Has offloadiing in place as prescribed Yes N/A Experienced any changes in pain level or No No management Left Footwear No Footwear Right Footwear No Footwear Pain Scale: 0-10 Numeric Is Patient Pain Free? Yes Yes WC - Nurse 1 - General Ulcer Measurement Start: 02/24/25 13:11 Freq: Status: Active Protocol: Activity Type Activity Date Activity User E-sign Co-sign Detail Recorded Client Recorded Date Recorded By Document 02/24/25 13:11 DL [id number] 02/24/25 13:16 DL Document 03/03/25 13:42 KW [id number] 03/03/25 13:43 KW 02/24/25 03/03/25 13:11 13:42 Wound Center Nurse 1 #1 Sacral cluster -Current Size (cm) - Length 0.1 -Current Size (cm) - Width 0.1 -Current Size (cm) - Depth 0.1 -Total Square Cm 0.01 -Photo Taken Yes -Exudate Amt None Present -Wound Margin Flat & Intact -Granulation Amt Large (67-100%) -Granulation Quality Pale,[place] -Necrosis Amt None Present (0 %) -Structure Exposed N/A -Texture (Laney-wound Skin Appearance) Scarring -Moisture (Laney-wound Skin Appearance) No Abnormality -Color (Laney-wound Skin Appearance) Assessed -Temperature (Laney-wound Skin No Abnormality Appearance) (Pt Warm) -Tenderness on Palpation (Laney-wound No Skin Appearance) -Ulcer Cleansing Soap and Water -Foul Odor after Cleansing No #4 l iSCHIAL -Current Size (cm) - Length 2.5 1 -Current Size (cm) - Width 2.2 0.3 -Current Size (cm) - Depth 0.1 0.1 -Total Square Cm 5.50 0.3 -Date of Last Picture (Recall this 03/03/25 field) -Photo Taken Yes -Exudate Amt Medium Small -Exudate Type Serosanguineous -Wound Margin Distinct, Distinct, Outline Outline Attached Attached -Granulation Amt Medium (34-66%) Large (67-100%) -Granulation Quality Red Red -Necrosis Amt Medium (34-66%) -Necrotic Tissue Type Adherent Slough -Structure Exposed N/A -Texture (Laney-wound Skin Appearance) Scarring Assessed -Moisture (Laney-wound Skin Appearance) No Abnormality Assessed -Color (Laney-wound Skin Appearance) No Abnormality Assessed -Temperature (Laney-wound Skin No Abnormality No Abnormality Appearance) (Pt Warm) (Pt Warm) -Tenderness on Palpation (Laney-wound No No Skin Appearance) -Ulcer Cleansing Soap and Water Soap and Water -Foul Odor after Cleansing No No -Anesthetic Used 5% Lidocaine 5% Lidocaine Gel Gel WC - Nurse 2 - General Ulcer CM Notes Start: 02/24/25 13:11 Freq: Status: Active Protocol: Activity Type Activity Date Activity User E-sign Co-sign Detail Recorded Client Recorded Date Recorded By Document 02/24/25 13:30 [id number] 02/24/25 13:35 Document 03/03/25 13:51 [id number] 03/03/25 13:54 02/24/25 03/03/25 13:30 13:51 Wound Center Nurse 2 #1 Sacral cluster -Time 13:32 -Correct Patient Yes -Correct Side, Site, Position Yes -Correct Procedure No -Procedure Performed No -Tunneling No -Undermining/Tunneling No -Circular Undermining No -Wound/Ulcer Outcome Healed- Epithelialized -Ulcer Cleansing Not Cleansed -Foul Odor after Cleansing No -Bioengineered Tissue No -Bleeding Controlled with NA -Offloading No #4 l iSCHIAL -Time 13:30 13:52 -Correct Patient Yes Yes -Correct Side, Site, Position Yes Yes -Correct Procedure Yes Yes -Procedure Performed Yes Yes -Type of Procedure Debridement Debridement -Clinical Debridement Subcutaneous Subcutaneous -Tissue Removed Subcutaneous Subcutaneous -Post Debridement (cm) - Length 3.5 1.2 -Post Debridement (cm) - Width 2.0 0.5 -Post Debridement (cm) - Depth 0.1 0.1 -Total Square (Post) (cm) 7.00 0.60 -Area of Debridement (cm) - Length 3.5 1.2 -Area of Debridement (cm) - Width 2.0 0.5 -Total Square (Area) (cm) 7.00 0.60 -Tunneling No No -Undermining/Tunneling No No -Circular Undermining No No -Wound/Ulcer Outcome Not Healed Not Healed -Ulcer Cleansing Rinsed/ Rinsed/ Irrigated with Irrigated with Saline Saline -Foul Odor after Cleansing No No -Bioengineered Tissue No No -Bleeding Controlled with Pressure Pressure -Treatment Response Procedure Procedure Tolerated Well Tolerated Well -Offloading No No -Assistive Device(s) Wheelchair -Pressure Reduction Wheelchair cushion -Debridement - Subq, 1st 20sq cm Yes Yes Pain Scale: 0-10 Numeric Is Patient Pain Free? Yes Yes - Nurse 3 - General Ulcer D/C NN Start: 02/24/25 13:11 Freq: Status: Active Protocol: Activity Type Activity Date Activity User E-sign Co-sign Detail Recorded Client Recorded Date Recorded By Document 03/03/25 13:59 [id number] 03/03/25 14:00 03/03/25 13:59 Wound Care Center Nurse 3 #4 l iSCHIAL -Ulcer Cleansing Not Cleansed -Foul Odor after Cleansing No -Primary Dressing Applied Fibracol Plus 4x4,Silicone Border Foam 4x4 -Fibracol Plus 4x4 2 -Silicone Border Foam 4x4 1 Pain Scale: 0-10 Numeric Is Patient Pain Free? Yes WC - Visit Discharge Discharge Condition Stable Ambulatory Status Wheelchair Transportation Private Auto Clinical Summary of Care Provided Yes Charges/Coding Procedures Integumentary [id number]: [id number] Casie subq tissue 20 sq cm/< Assessment/Plan Assessment/Plan (1) 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, stage 3: CODE(S): L89.323 - Pressure ulcer of left buttock, stage 3 (2) Paraplegia: CODE(S): G82.20 - Paraplegia, unspecified (3) Large B-cell lymphoma: CODE(S): C85.10 - Unspecified B-cell lymphoma, unspecified site (4) Chronic indwelling Gutierrez catheter: CODE(S): Z97.8 - Presence of other specified devices (5) Non-smoker: CODE(S): Z78.9 - Other specified health status (6) Hypertension: CODE(S): I10 - Essential (primary) hypertension (7) Debility: CODE(S): R53.81 - Other malaise (8) Myocardial infarct: CODE(S): I21.9 - Acute myocardial infarction, unspecified (9) Afib: CODE(S): I48.91 - Unspecified atrial fibrillation (10) Diffuse large B-cell lymphoma: CODE(S): C83.30 - Diffuse large B-cell lymphoma, unspecified site QUALIFIERS: Lymphoma site: extranodal excluding spleen and other solid organs Qualified Code(s): C83.39 - Diffuse large B-cell lymphoma, extranodal and solid organ sites (11) Chronic anticoagulation: CODE(S): Z79.01 - USP (current) use of anticoagulants PLAN: Plan This is an 79-year-old paraplegic female with a stage III pressure ulceration at the site of the left ischium. The ulceration is much improved, and smaller in size. The laney-ulcer inflammation and maceration is much improved, as a replacement of the patient's Gutierrez catheter has decreased the amount of external leakage. We are to continue the use of lightly moistened Fibracol topically to the ulcer on a daily basis. The patient and her family have been instructed in appropriate means of application. The patient's family has been encouraged to change her undergarments as necessary to avoid prolonged periods of moisture. We are to continue the use of a skin barrier protectant to the laney-ulcer skin as well. Continued offloading measures have been advised. The patient has a Roho cushion and an air mattress, and frequent repositioning has been recommended. The patient's sacral ulceration remains healed. The patient has been advised to continue with a healthy diet and nutritional supplements. She is to follow-up in 2 weeks for reevaluation. Total time: 24 minutes
[2025-03-17 13:48] VITALS: BP 127/71; PULSE 62; RESP 18; TEMP 36.3; BMI 25.0
--- NOTE | 2025-03-19 12:39 | HP.PCM_ITS ---
History of Present Illness Date of Service: 03/17/25 Chief Complaint: Left ischial pressure ulceration, stage III History of Wound: This is an 79-year-old female, [facility] by a provider who has transferred to another facility. 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 She had progressive paraplegia. She went to TCU for acute rehab for this progressive paraplegia. During that time she had worsening sacral pressure sore with skin necrosis. Surgery 05/15/21 - Excision necrotic sacral pressure sore, Stage IV, with partial ostectomy for osteomyelitis. Pathology from surgery on 05/15/21 of bone showed acute osteomyelitis. Operative culture, soft tissue, from 05/15/21 was positive for Escherichia coli, Klebsiella, Vanc. Resist. E. gallinarum, Vanc. Resist. E. faecalis. Operative culture, bone, from 05/15/21 was positive for Escherichia coli, Vanc. Resist. E. faecalis, Vanc. Resist. E. gallinarum. She was treated with Meropenem and Vancomycin. Linezolid was started after Vancomycin was stopped. Radiation from 05/17/21 - 06/12/21 18 treatments to T4-T7 area including paraspinal region. 06/06/21- Laparoscopic sigmoid colectomy with creation of end colostomy for fecal diversion. She healed out her ulcers November 2023. She states that she was having issues with her urinary catheter leaking which then caused skin breakdown on her left ischial area a little before Antoine. They have been using dressing supplies that they had left over (Dakin's, selena, aquacel-ag). They thought there might be some improvement in the ulcer, but now that it has been almost a month, they came back for further evaluation and treatment. Wound culture from 11/04/24 positive for Staphylococcus haemolyticus, Staphylococcus epidermidis, Escherichia coli, Corynebacterium striatum, and Cutibacterium acnes and she was treated with Levaquin and Linezolid. The patient denies a history of congestive heart failure, cerebrovascular accident, diabetes mellitus, thyroid disease, pulmonary disease, and renal disease. She has suffered a myocardial infarction in the past, and has had coronary revascularization performed in 2018. She is on long-term systemic anticoagulation with warfarin. [facility] Medical History Chronic anticoagulation History of echocardiogram Wears glasses Wears dentures Uses wheelchair Indwelling urethral catheter present Anemia Non-smoker History of edema Cardiology follow-up encounter Pressure ulcer COVID-19 Decubitus ulcer of left ischium, stage 2 Pressure ulcer of right ischium MCI (mild cognitive impairment) Adrenal disorder Decubitus ulcer of left ischium, stage 4 Chronic indwelling Gutierrez catheter Hypertension Pressure sore UTI (urinary tract infection) Adynamic ileus Abdominal pain History of radiation therapy Neuropathic pain Diffuse large B cell lymphoma Paraplegia Debility Pressure ulcer of sacral region, stage 4 Osteomyelitis of pelvis Myocardial infarct Afib Pressure ulcer of sacral region, unstageable Diffuse large B-cell lymphoma Paraplegia Home Medications ?Medication ?Instructions ?Recorded ?Last Taken ?Type losartan 100 mg tablet 50 mg PO DAILY HEART 1 12/23/24 History amiodarone 200 mg tablet 200 mg PO DAILY@1400 HEART 0 12/12/21 Unknown History gabapentin 100 mg capsule 100 mg PO BID 12/12/2112/23 History metoprolol succinate 50 mg 25 mg PO DAILY BP 12/12/21 12/23/24 History tablet,extended release 24 hr Lactobacillus acidophilus 10 10,000 mmu cells PO DAILY @1400 01/19/22 Unknown History billion cell capsule (Probiotic) supplement atorvastatin 40 mg tablet 40 mg PO QHS cholesterol 12/12 Unknown History MINGXIA RED 1 tsp PO DAILY 12/09/24 Unkn own History sennosides 8.6 mg capsule (senna) 17.2 mg PO QHS 12/09 Unknown History warfarin 2 mg tablet 2 mg PO DAILY 12/09/2412/17 History nystatin 100,000 unit/gram topical 1 applic topical BI D 10 days #30 01/20/25 Unknown Rx cream grams Allergy/AdvReac Type Severity Reaction Status Date / Time prednisone Allergy Intermediate atrial Verified 12/23/24 07:52 fibrillation Family History Father CHF (congestive heart failure) Myocardial infarction Mother CAD (coronary artery disease) Alzheimer disease Surgical History History of colectomy H/O Spinal surgery History of cholecystectomy S/P excisional debridement S/P cholecystectomy Hx of CABG Social History household members: family housing: house number of children: 5 Smoking Status: Never smoker alcohol intake: never substance use type: does not use what type of physical activity do you participate in: other details: leg therapy/hand weights frequency: 5-6 times per week chris/confucianism: [facility] Vital Signs Vital Signs Vital Signs: Weight Weight: 150 lb 11.094 oz Body Mass Index (BMI) 25.0 Physical Exam Const alert, oriented x3, no apparent distress and average body habitus Constitutional Narrative: The patient's BMI is 25.1. General Appearance: cooperative, comfortable and well developed Orientation / Consciousness: awake, oriented to person, oriented to place and oriented to time HEENT normocephalic and head/scalp atraumatic Head and Scalp: normal to inspection, normocephalic and atraumatic Face and Sinus: normal facial exam Nose: external nose normal External Ear: external ears normal Eyes EOMs intact bilaterally General Eye: normal appearance of both eyes Neck full ROM Lymph Lymphatic: Negative for lymphedema Resp normal respiratory effort, normal air movement, no retractions and no use of accessory muscles Effort and Inspection: able to speak in complete sentences GI GI Narrative: The patient has a functional colostomy. Bladder / Kidney Exam: catheter in place Extremity Extremity Narrative: Upper extremities have full ROM. Paralyzed. Skin Wound Narrative: A pressure ulceration is noted on the left ischial region. It is full- thickness, through all layers of the dermis and into the subcutaneous tissues. This is a stage III pressure ulceration. There is no significant sign of infection or cellulitis. Ulcer margins are well beveled. Dimensions are documented elsewhere. The ulceration has decreased in size since the last visi t. It appears pink and healthy, with active granulation tissue. There is a small amount of bioburden. The reddened, macerated, and inflamed laney-ulcer skin is much improved, and now resolved. The ulceration in the sacral area remains healed and epithelialized. Neuro oriented x3 and CN's II-XII intact bilaterally Neuro Narrative: The patient is paraplegic. Sensorium / Orientation: awake, alert, oriented to person, oriented to place and oriented to time Speech: speech normal Psych mental status grossly normal, thought process normal and cooperative Appearance: appropriate Debridement Note Debridement Note Wound debrided: Left ischial pressure ulceration Laterality: Left Wound Grade/Stage: Stage III Type of Debridement: Excisional debridement Anesthesia Used: 5% Lidocaine Gel Depth: Down to and including healthy tissue and in the subcutaneous layer Percentage of wound debrided: 100 Instrument Used: 5mm curette Tissue Removed: Bioburden and devitalized tissue Severity: Fat Layer Exposed Amount of bleeding with debridement: Mild Bleeding Controlled with: Compression and gauze Patient tolerated procedure: Patient tolerated procedure well Post-Debridement Measurements and Additional Note: Post-Debridement Measurements/Treatment - Nurse 1 - General Ulcer Assessment Start: 02/24/25 13:11 Freq: Status: Active Protocol: NICOLAS.LOWKEVINT Activity Type Activity Date Activity User E-sign Co-sign Detail Recorded Client Recorded Date Recorded By Document 02/24/25 13:11 DL [id number] 02/24/25 13:16 DL Document 03/03/25 13:42 KW [id number] 03/03/25 13:43 KW Document 03/17/25 13:48 DL [id number] 03/17/25 13:49 DL 02/24/25 03/03/25 03/17/25 13:11 13:42 13:48 - Today's Visit Information Type of service Follow-up Visit Follow-up Visit Follow-up Visit (Physician/ADDRESS CHANGE CLERK (Physician/ADDRESS CHANGE CLERK (Physician/ADDRESS CHANGE CLERK ) ) ) Arrival Mode Wheelchair Wheelchair Wheelchair Transfer Assistance Will Lift Will Lift Will Lift Transfer Assist (Other) x2 x2 Patient Identification Verified (Name & Yes Yes Yes ) Patient Requires Transmission-Based No No Precautions Height and Weight Body Mass Index (BMI) 25.0 25.0 25.0 BMI Classification Overweight Overweight Overweight Vital Signs Temperature (97.8 F-99.1 F) 96.9 F L 96.2 F L 97.4 F L Temperature Source Temporal Temporal Temporal Pulse Rate (60-100) 60 58 L 62 Pulse Location Monitor Monitor Monitor Respiratory Rate (12-18) 16 18 18 Respiratory rate source Observation Observation Observation Oxygen Delivery Method Room Air Blood Pressure (90/60-120/80) 121/52 H 150/69 H 127/71 H Blood Pressure Mean 75 96 89 Source Monitor Monitor Monitor Position Semi-Fowlers Blood Pressure Location Left Arm History Since Last Visit- (Skip if this is Patient's initial visit) Have you changed medications since your No No No last visit? Any new allergies or adverse reactions No No No Had a fall/change in ADL's that may No No No increase risk of falls Signs or symptoms of abuse and/or No No No neglect since last visit Have you been in the hospital since your No No No last visit? Has dressing in place as prescribed Yes Yes Yes Has compression in place as prescribed N/A N/A N/A Has offloadiing in place as prescribed Yes N/A Yes Experienced any changes in pain level or No No No management Left Footwear No Footwear Right Footwear No Footwear Pain Scale: 0-10 Numeric Is Patient Pain Free? Yes Yes Yes WC - Nurse 1 - General Ulcer Measurement Start: 02/24/25 13:11 Freq: Status: Active Protocol: Activity Type Activity Date Activity User E-sign Co-sign Detail Recorded Client Recorded Date Recorded By Document 02/24/25 13:11 DL [id number] 02/24/25 13:16 DL Document 03/03/25 13:42 KW [id number] 03/03/25 13:43 KW Document 03/17/25 13:48 DL [id number] 03/17/25 13:49 DL 02/24/25 03/03/25 03/17/25 13:11 13:42 13:48 Wound Center Nurse 1 #1 Sacral cluster -Current Size (cm) - Length 0.1 -Current Size (cm) - Width 0.1 -Current Size (cm) - Depth 0.1 -Total Square Cm 0.01 -Photo Taken Yes -Exudate Amt None Present -Wound Margin Flat & Intact -Granulation Amt Large (67-100%) -Granulation Quality Pale,[place] -Necrosis Amt None Present (0 %) -Structure Exposed N/A -Texture (Laney-wound Skin Appearance) Scarring -Moisture (Laney-wound Skin Appearance) No Abnormality -Color (Laney-wound Skin Appearance) Assessed -Temperature (Laney-wound Skin No Abnormality Appearance) (Pt Warm) -Tenderness on Palpation (Laney-wound No Skin Appearance) -Ulcer Cleansing Soap and Water -Foul Odor after Cleansing No #4 l iSCHIAL -Current Size (cm) - Length 2.5 1 1.2 -Current Size (cm) - Width 2.2 0.3 0.3 -Current Size (cm) - Depth 0.1 0.1 0.1 -Total Square Cm 5.50 0.3 0.36 -Date of Last Picture (Recall this 03/03/25 field) -Photo Taken Yes Yes -Exudate Amt Medium Small Small -Exudate Type Serosanguineous Serosanguineous -Wound Margin Distinct, Distinct, Distinct, Outline Outline Outline Attached Attached Attached -Granulation Amt Medium (34-66%) Large (67-100%) Large (67-100%) -Granulation Quality Red [place] -Necrosis Amt Medium (34-66%) None Present (0 %) -Necrotic Tissue Type Adherent Slough -Structure Exposed N/A N/A -Texture (Laney-wound Skin Appearance) Scarring Assessed Scarring -Moisture (Laney-wound Skin Appearance) No Abnormality Assessed No Abnormality -Color (Laney-wound Skin Appearance) No Abnormality Assessed No Abnormality -Temperature (Laney-wound Skin No Abnormality No Abnormality No Abnormality Appearance) (Pt Warm) (Pt Warm) (Pt Warm) -Tenderness on Palpation (Laney-wound No No No Skin Appearance) -Ulcer Cleansing Soap and Water Soap and Water Rinsed/ Irrigated with Saline -Foul Odor after Cleansing No No No -Anesthetic Used 5% Lidocaine 5% Lidocaine 5% Lidocaine Gel Gel Gel WC - Nurse 2 - General Ulcer CM Notes Start: 02/24/25 13:11 Freq: Status: Active Protocol: Activity Type Activity Date Activity User E-sign Co-sign Detail Recorded Client Recorded Date Recorded By Document 02/24/25 13:30 [id number] 02/24/25 13:35 Document 03/03/25 13:51 [id number] 03/03/25 13:54 Document 03/17/25 14:31 [id number] 03/17/25 14:31 02/24/25 03/03/25 03/17/25 13:30 13:51 14:31 Wound Center Nurse 2 #1 Sacral cluster -Time 13:32 -Correct Patient Yes -Correct Side, Site, Position Yes -Correct Procedure No -Procedure Performed No -Tunneling No -Undermining/Tunneling No -Circular Undermining No -Wound/Ulcer Outcome Healed- Epithelialized -Ulcer Cleansing Not Cleansed -Foul Odor after Cleansing No -Bioengineered Tissue No -Bleeding Controlled with NA -Offloading No #4 l iSCHIAL -Time 13:30 13:52 14:31 -Correct Patient Yes Yes Yes -Correct Side, Site, Position Yes Yes Yes -Correct Procedure Yes Yes Yes -Procedure Performed Yes Yes Yes -Type of Procedure Debridement Debridement Debridement -Clinical Debridement Subcutaneous Subcutaneous Subcutaneous -Tissue Removed Subcutaneous Subcutaneous Subcutaneous -Post Debridement (cm) - Length 3.5 1.2 0.5 -Post Debridement (cm) - Width 2.0 0.5 1.5 -Post Debridement (cm) - Depth 0.1 0.1 0.1 -Total Square (Post) (cm) 7.00 0.60 0.75 -Area of Debridement (cm) - Length 3.5 1.2 0.5 -Area of Debridement (cm) - Width 2.0 0.5 1.5 -Total Square (Area) (cm) 7.00 0.60 0.75 -Tunneling No No No -Undermining/Tunneling No No No -Circular Undermining No No No -Wound/Ulcer Outcome Not Healed Not Healed Not Healed -Ulcer Cleansing Rinsed/ Rinsed/ Rinsed/ Irrigated with Irrigated with Irrigated with Saline Saline Saline -Foul Odor after Cleansing No No No -Bioengineered Tissue No No No -Bleeding Controlled with Pressure Pressure Pressure -Treatment Response Procedure Procedure Procedure Tolerated Well Tolerated Well Tolerated Well -Offloading No No No -Assistive Device(s) Wheelchair -Pressure Reduction Wheelchair Wheelchair cushion cushion -Debridement - Subq, 1st 20sq cm Yes Yes Yes Pain Scale: 0-10 Numeric Is Patient Pain Free? Yes Yes Yes - Nurse 3 - General Ulcer D/C NN Start: 02/24/25 13:11 Freq: Status: Active Protocol: Activity Type Activity Date Activity User E-sign Co-sign Detail Recorded Client Recorded Date Recorded By Document 03/03/25 13:59 GM [id number] 03/03/25 14:00 GM Document 03/17/25 14:41 ML [id number] 03/17/25 14:46 ML 03/03/25 03/17/25 13:59 14:41 Wound Care Center Nurse 3 #4 l iSCHIAL -Ulcer Cleansing Not Cleansed Rinsed/ Irrigated with Saline -Foul Odor after Cleansing No -Primary Dressing Applied Fibracol Plus Fibracol Plus 4x4,Silicone 4x4,Silicone Border Foam 4x4 Border Foam 4x4 -Fibracol Plus 4x4 2 1 -Silicone Border Foam 4x4 1 1 Pain Scale: 0-10 Numeric Is Patient Pain Free? Yes Yes WC - Visit Discharge Discharge Condition Stable Ambulatory Status Wheelchair Transportation Private Auto Clinical Summary of Care Provided Yes Charges/Coding Procedures Integumentary [id number]: [id number] Casie subq tissue 20 sq cm/< Assessment/Plan Assessment/Plan (1) 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, stage 3: CODE(S): L89.323 - Pressure ulcer of left buttock, stage 3 (2) Paraplegia: CODE(S): G82.20 - Paraplegia, unspecified (3) Large B-cell lymphoma: CODE(S): C85.10 - Unspecified B-cell lymphoma, unspecified site (4) Chronic indwelling Gutierrez catheter: CODE(S): Z97.8 - Presence of other specified devices (5) Non-smoker: CODE(S): Z78.9 - Other specified health status (6) Hypertension: CODE(S): I10 - Essential (primary) hypertension (7) Debility: CODE(S): R53.81 - Other malaise (8) Myocardial infarct: CODE(S): I21.9 - Acute myocardial infarction, unspecified (9) Afib: CODE(S): I48.91 - Unspecified atrial fibrillation (10) Diffuse large B-cell lymphoma: CODE(S): C83.30 - Diffuse large B-cell lymphoma, unspecified site QUALIFIERS: Lymphoma site: extranodal excluding spleen and other solid organs Qualified Code(s): C83.39 - Diffuse large B-cell lymphoma, extranodal and solid organ sites (11) Chronic anticoagulation: 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 The ulceration is much improved, and smaller in size. The laney-ulcer inflammation and maceration is much improved, as a replacement of the patient's Gutierrez catheter has decreased the amount of external leakage. The patient's family is also changing her undergarments frequently, and as necessary when moist. We are to continue the use of lightly moistened Fibracol topically to the ulcer on a daily basis. The patient and her family have been instructed in appropriate means of application. The patient's family has been encouraged to continue changing her undergarments as necessary to avoid prolonged periods of moisture. We are to continue the use of a skin barrier protectant to the laney-ulcer skin as well. Continued offloading measures have been advised. The patient has a Roho cushion and an air mattress, and frequent repositioning has been recommended. The patient's sacral ulceration remains healed. The patient has been advised to continue with a healthy diet and nutritional supplements. She is to follow-up in 2 weeks for reevaluation. Total time: 25 minutes
== END 2025-03-20 23:59 | disposition home or self-care (01) ==
LOC: WC 13:35
PROVIDERS: PCP Student in an Organized Health Care Education/Training Program; Referring Provider Student in an Organized Health Care Education/Training Program; Visit Provider Surgery
DX: L89.323 Pressure ulcer of left buttock, stage 3 (principal); C83.398 Diffuse large B-cell lymphoma of other extranodal and solid organ sites; G82.20 Paraplegia, unspecified; Z93.3 Colostomy status; I48.91 Unspecified atrial fibrillation; I25.2 Old myocardial infarction; I10 Essential (primary) hypertension; R53.81 Other malaise; Z79.01 Long term (current) use of anticoagulants; Z79.899 Other long term (current) drug therapy; Z90.49 Acquired absence of other specified parts of digestive tract
CPT/HCPCS: 11042

== ENCOUNTER 2025-04-14 13:30 | Outpatient (RCR) | payer OTHER, SELFPAY ==
[2025-03-21 00:29] VITALS: BP 127/71; PULSE 62; RESP 18; TEMP 36.3; BMI 25.0
[2025-04-07 13:26] VITALS: BP 140/74; PULSE 59; RESP 16; TEMP 36.6; BMI 25.0
--- NOTE | 2025-04-08 10:10 | WC ---
PHOTO 04/07/25 L ISCHIAL
--- NOTE | 2025-04-09 16:01 | HP.PCM_ITS ---
History of Present Illness Date of Service: 04/07/25 Chief Complaint: Left ischial pressure ulceration, stage III History of Wound: This is an 79-year-old female, [facility] by a provider who has transferred to another facility. 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 She had progressive paraplegia. She went to TCU for acute rehab for this progressive paraplegia. During that time she had worsening sacral pressure sore with skin necrosis. Surgery 05/15/21 - Excision necrotic sacral pressure sore, Stage IV, with partial ostectomy for osteomyelitis. Pathology from surgery on 05/15/21 of bone showed acute osteomyelitis. Operative culture, soft tissue, from 05/15/21 was positive for Escherichia coli, Klebsiella, Vanc. Resist. E. gallinarum, Vanc. Resist. E. faecalis. Operative culture, bone, from 05/15/21 was positive for Escherichia coli, Vanc. Resist. E. faecalis, Vanc. Resist. E. gallinarum. She was treated with Meropenem and Vancomycin. Linezolid was started after Vancomycin was stopped. Radiation from 05/17/21 - 06/12/21 18 treatments to T4-T7 area including paraspinal region. 06/06/21- Laparoscopic sigmoid colectomy with creation of end colostomy for fecal diversion. She healed out her ulcers November 2023. She states that she was having issues with her urinary catheter leaking which then caused skin breakdown on her left ischial area a little before Antoine. They have been using dressing supplies that they had left over (Dakin's, selena, aquacel-ag). They thought there might be some improvement in the ulcer, but now that it has been almost a month, they came back for further evaluation and treatment. Wound culture from 11/04/24 positive for Staphylococcus haemolyticus, Staphylococcus epidermidis, Escherichia coli, Corynebacterium striatum, and Cutibacterium acnes and she was treated with Levaquin and Linezolid. The patient denies a history of congestive heart failure, cerebrovascular accident, diabetes mellitus, thyroid disease, pulmonary disease, and renal disease. She has suffered a myocardial infarction in the past, and has had coronary revascularization performed in 2018. She is on long-term systemic anticoagulation with warfarin. FOR[facility]LY [facility], [facility] Medical History (Updated 04/09/25 @ 16:[address] Oscar Steele MD) Pressure ulcer of ischium, stage 3 Chronic anticoagulation History of echocardiogram Wears glasses Wears dentures Uses wheelchair Indwelling urethral catheter present Anemia Non-smoker History of edema Cardiology follow-up encounter Pressure ulcer COVID-19 Decubitus ulcer of left ischium, stage 2 Pressure ulcer of right ischium MCI (mild cognitive impairment) Adrenal disorder Decubitus ulcer of left ischium, stage 4 Chronic indwelling Gutierrez catheter Hypertension Pressure sore UTI (urinary tract infection) Adynamic ileus Abdominal pain History of radiation therapy Neuropathic pain Diffuse large B cell lymphoma Paraplegia Debility Pressure ulcer of sacral region, stage 4 Osteomyelitis of pelvis Myocardial infarct Afib Pressure ulcer of sacral region, unstageable Diffuse large B-cell lymphoma Paraplegia Home Medications ?Medication ?Instructions ?Recorded ?Last Taken ?Type losartan 100 mg tablet 50 mg PO DAILY HEART 1 12/23/24 History amiodarone 200 mg tablet 200 mg PO DAILY@1400 HEART 0 12/12/21 Unknown History gabapentin 100 mg capsule 100 mg PO BID 12/12/2112/23 History metoprolol succinate 50 mg 25 mg PO DAILY BP 12/12/21 12/23/24 History tablet,extended release 24 hr Lactobacillus acidophilus 10 10,000 mmu cells PO DAILY @1400 01/19/22 Unknown History billion cell capsule (Probiotic) supplement atorvastatin 40 mg tablet 40 mg PO QHS cholesterol 12/12 Unknown History MINGXIA RED 1 tsp PO DAILY 12/09/24 Unkn own History sennosides 8.6 mg capsule (senna) 17.2 mg PO QHS 12/09 Unknown History warfarin 2 mg tablet 2 mg PO DAILY 12/09/2412/17 History nystatin 100,000 unit/gram topical 1 applic topical BI D 10 days #30 01/20/25 Unknown Rx cream grams Allergy/AdvReac Type Severity Reaction Status Date / Time prednisone Allergy Intermediate atrial Verified 12/23/24 07:52 fibrillation Family History Father CHF (congestive heart failure) Myocardial infarction Mother CAD (coronary artery disease) Alzheimer disease Surgical History History of colectomy H/O Spinal surgery History of cholecystectomy S/P excisional debridement S/P cholecystectomy Hx of CABG Social History household members: family housing: house number of children: 5 Smoking Status: Never smoker alcohol intake: never substance use type: does not use what type of physical activity do you participate in: other details: leg therapy/hand weights frequency: 5-6 times per week chris/denominational: [facility] Vital Signs Vital Signs Vital Signs: Weight Weight: 150 lb 11.094 oz Body Mass Index (BMI) 25.0 Physical Exam Const alert, oriented x3, no apparent distress and average body habitus Constitutional Narrative: The patient's BMI is 25.1. General Appearance: cooperative, comfortable and well developed Orientation / Consciousness: awake, oriented to person, oriented to place and oriented to time HEENT normocephalic and head/scalp atraumatic Head and Scalp: normal to inspection, normocephalic and atraumatic Face and Sinus: normal facial exam Nose: external nose normal External Ear: external ears normal Eyes EOMs intact bilaterally General Eye: normal appearance of both eyes Neck full ROM Lymph Lymphatic: Negative for lymphedema Resp normal respiratory effort, normal air movement, no retractions and no use of accessory muscles Effort and Inspection: able to speak in complete sentences GI GI Narrative: The patient has a functional colostomy. Bladder / Kidney Exam: catheter in place Extremity Extremity Narrative: Upper extremities have full ROM. Paralyzed. Skin Wound Narrative: A pressure ulceration is noted on the left ischial region. It is full- thickness, through all layers of the dermis and into the subcutaneous tissues. This is a stage III pressure ulceration. There is no significant sign of infection or cellulitis. Ulcer margins are well beveled. Dimensions are documented elsewhere. It appears pink and healthy, with active granulation tissue. There is a small amount of bioburden. The laney-ulcer skin is erythematous, macerated, and excoriated. It appears to have worsened since the patient's last visit. Therefore, a swab culture has been obtained for aerobic and anaerobic bacterial growth. Neuro oriented x3 and CN's II-XII intact bilaterally Neuro Narrative: The patient is paraplegic. Sensorium / Orientation: awake, alert, oriented to person, oriented to place and oriented to time Speech: speech normal Psych mental status grossly normal, thought process normal and cooperative Appearance: appropriate Debridement Note Debridement Note Wound debrided: Left ischial pressure ulceration Laterality: Left Wound Grade/Stage: Stage III Type of Debridement: Excisional debridement Anesthesia Used: 5% Lidocaine Gel Depth: Down to and including healthy tissue and in the subcutaneous layer Percentage of wound debrided: 100 Instrument Used: 5mm curette Tissue Removed: Bioburden and devitalized tissue Severity: Fat Layer Exposed Amount of bleeding with debridement: Mild Bleeding Controlled with: Compression and gauze Patient tolerated procedure: Patient tolerated procedure well Debridement Free Text: Because of the increased erythema in the laney-ulcer area, a swab culture has been obtained for aerobic and anaerobic bacterial growth. Post-Debridement Measurements and Additional Note: Post-Debridement Measurements/Treatment - Nurse 1 - General Ulcer Assessment Start: 04/07/25 13:26 Freq: Status: Active Protocol: KRANTHI Activity Type Activity Date Activity User E-sign Co-sign Detail Recorded Client Recorded Date Recorded By Document 04/07/25 13:26 [facility] [id number] 04/07/25 13:29 [facility] 04/07/25 13:26 - Today's Visit Information Type of service Follow-up Visit (Physician/DONOR SUPPORT TECHNICIAN ) Arrival Mode Wheelchair Transfer Assistance Will Lift Accompanied by daughter and Patient Identification Verified (Name & Yes ) Patient Requires Transmission-Based No Precautions Height and Weight Body Mass Index (BMI) 25.0 BMI Classification Overweight Vital Signs Temperature (97.8 F-99.1 F) 98 F Temperature Source Temporal Pulse Rate (60-100) 59 L Pulse Location Monitor Respiratory Rate (12-18) 16 Respiratory rate source Observation Oxygen Delivery Method Room Air Blood Pressure (90/60-120/80) 140/74 H Blood Pressure Mean 96 Source Monitor Position Sitting Blood Pressure Location Right Arm History Since Last Visit- (Skip if this is Patient's initial visit) Have you changed medications since your No last visit? Any new allergies or adverse reactions No Had a fall/change in ADL's that may No increase risk of falls Signs or symptoms of abuse and/or No neglect since last visit Have you been in the hospital since your No last visit? Has dressing in place as prescribed Yes Has compression in place as prescribed N/A Has offloadiing in place as prescribed N/A Experienced any changes in pain level or No management Left Footwear Slipper Right Footwear Slipper Pain Scale: 0-10 Numeric Is Patient Pain Free? Yes - Nurse 1 - General Ulcer Measurement Start: 04/07/25 13:26 Freq: Status: Active Protocol: Activity Type Activity Date Activity User E-sign Co-sign Detail Recorded Client Recorded Date Recorded By Document 04/07/25 13:26 [facility] [id number] 04/07/25 13:29 [facility] 04/07/25 13:26 W[facility] Center Nurse 1 #4 l iSCHIAL -Combined with other wound No -Current Size (cm) - Length 2 -Current Size (cm) - Width 1.5 -Current Size (cm) - Depth 0.1 -Total Square Cm 3.0 -Date of Last Picture (Recall this 04/07/25 field) -Photo Taken Yes -Epithelialization None Present -Tunneling No -Undermining/Tunneling No -Circular Undermining No -Exudate Amt Medium -Exudate Type Serosanguineous -Wound Margin Distinct, Outline Attached -Granulation Amt Large (67-100%) -Granulation Quality Red -Slough/Fibrin No -Necrosis Amt None Present (0 %) -Texture (Laney-wound Skin Appearance) Assessed -Moisture (Laney-wound Skin Appearance) Assessed -Color (Laney-wound Skin Appearance) Assessed -Temperature (Laney-wound Skin No Abnormality Appearance) (Pt Warm) -Tenderness on Palpation (Laney-wound No Skin Appearance) -Ulcer Cleansing Rinsed/ Irrigated with Saline -Foul Odor after Cleansing No -Anesthetic Used 5% Lidocaine Gel - Nurse 2 - General Ulcer CM Notes Start: 04/07/25 13:26 Freq: Status: Active Protocol: Activity Type Activity Date Activity User E-sign Co-sign Detail Recorded Client Recorded Date Recorded By Document 04/07/25 13:41 [id number] 04/07/25 13:45 04/07/25 13:41 W[facility] Center Nurse 2 -Time 13:44 -Correct Patient Yes -Correct Side, Site, Position Yes -Correct Procedure Yes -Procedure Performed Yes -Type of Procedure Debridement -Clinical Debridement Subcutaneous -Tissue Removed Subcutaneous -Post Debridement (cm) - Length 1.0 -Post Debridement (cm) - Width 1.4 -Post Debridement (cm) - Depth 0.1 -Total Square (Post) (cm) 1.40 -Area of Debridement (cm) - Length 1.0 -Area of Debridement (cm) - Width 1.4 -Total Square (Area) (cm) 1.40 -Tunneling No -Undermining/Tunneling No -Circular Undermining No -Wound/Ulcer Outcome Not Healed -Ulcer Cleansing Rinsed/ Irrigated with Saline -Foul Odor after Cleansing No -Bioengineered Tissue No -Bleeding Controlled with Pressure -Treatment Response Procedure Tolerated Well -Offloading No -Debridement - Subq, 1st 20sq cm Yes Pain Scale: 0-10 Numeric Is Patient Pain Free? Yes - Nurse 3 - General Ulcer D/C NN Start: 04/07/25 13:26 Freq: Status: Active Protocol: Activity Type Activity Date Activity User E-sign Co-sign Detail Recorded Client Recorded Date Recorded By Document 04/07/25 14:09 DL [id number] 04/07/25 14:10 DL 04/07/25 14:09 [facility] Center Nurse 3 #4 l iSCHIAL -Ulcer Cleansing Rinsed/ Irrigated with Saline -Foul Odor after Cleansing No -Primary Dressing Applied Fibracol Plus 4x4,Silicone Border Foam 6x6 -Other Dressing Skin Prep -Fibracol Plus 4x4 1 -Silicone Border Foam 6x6 1 Laney-Wound Care Barrier Treatment Response Procedure Tolerated Well Pain Scale: 0-10 Numeric Is Patient Pain Free? Yes - Visit Discharge Discharge Condition Stable Ambulatory Status Wheelchair Transportation Private Auto Accompanied by family Lab / Micro Data Micro: Microbiology 04/07/25 13:43 Wound - Ischium Gram Stain - Final 04/07/25 13:43 Wound - Ischium Wound Culture - Preliminary Staphylococcus aureus Gram positive organism Charges/Coding Procedures Integumentary [id number]: [id number] Casie subq tissue 20 sq cm/< Assessment/Plan Assessment/Plan (1) 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, stage 3: CODE(S): L89.323 - Pressure ulcer of left buttock, stage 3 (2) Pressure ulcer of ischium, stage 3: CODE(S): L89.303 - Pressure ulcer of unspecified buttock, stage 3 QUALIFIERS: Laterality: left Qualified Code(s): L89.323 - Pressure ulcer of left buttock, stage 3 (3) Paraplegia: CODE(S): G82.20 - Paraplegia, unspecified (4) Large B-cell lymphoma: CODE(S): C85.10 - Unspecified B-cell lymphoma, unspecified site (5) Chronic indwelling Gutierrez catheter: CODE(S): Z97.8 - Presence of other specified devices (6) Non-smoker: CODE(S): Z78.9 - Other specified health status (7) Hypertension: CODE(S): I10 - Essential (primary) hypertension (8) Debility: CODE(S): R53.81 - Other malaise (9) Myocardial infarct: CODE(S): I21.9 - Acute myocardial infarction, unspecified (10) Afib: CODE(S): I48.91 - Unspecified atrial fibrillation (11) Diffuse large B-cell lymphoma: CODE(S): C83.30 - Diffuse large B-cell lymphoma, unspecified site QUALIFIERS: Lymphoma site: extranodal excluding spleen and other solid organs Qualified Code(s): C83.39 - Diffuse large B-cell lymphoma, extranodal and solid organ sites (12) Chronic anticoagulation: CODE(S): Z79.01 - facility examiner (current) use of anticoagulants PLAN: Plan This is an 79-year-old paraplegic female with a stage III pressure ulceration at the site of the left ischium. The laney-ulcer inflammation and maceration has recurred, and is worse than noted at the patient's prior visit. The patient's family indicates that this may be due to leakage from the patient's Gutierrez catheter, accounting for moisture to the area of the ulceration. The patient's family is also changing her undergarments frequently, and as necessary when moist. We are to continue the use of lightly moistened Fibracol topically to the ulcer on a daily basis. The patient and her family have been instructed in appropriate means of application. The patient's family has been encouraged to continue changing her undergarments as necessary to avoid prolonged periods of moisture. We are to continue the use of a skin barrier protectant to the laney- ulcer skin as well. Continued offloading measures have been advised. Measures are to be continued in an effort to reduce the effects of pressure, friction, and maceration. The patient has a Roho cushion and an air mattress, and frequent repositioning has been recommended. The patient's sacral ulceration remains healed. The patient has been advised to continue with a healthy diet and nutritional supplements. A swab culture has been obtained today, the results of which will be awaited. The patient is to follow-up in 1 week for reevaluation. Total time: 26 minutes
[2025-04-14 13:25] VITALS: BP 117/69; PULSE 56; RESP 16; TEMP 36.9; BMI 25.0
--- NOTE | 2025-04-15 10:59 | WC ---
PHOTO 04/14/25 LEFT ISCHIAL
--- NOTE | 2025-04-16 10:38 | PCM.WC.HP ---
History of Present Illness Date of Service: 04/14/25 Chief Complaint: Left ischial pressure ulceration, stage III History of Wound: This is an 79-year-old female, [facility] by a provider who has transferred to another facility. 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 She had progressive paraplegia. She went to TCU for acute rehab for this progressive paraplegia. During that time she had worsening sacral pressure sore with skin necrosis. Surgery 05/15/21 - Excision necrotic sacral pressure sore, Stage IV, with partial ostectomy for osteomyelitis. Pathology from surgery on 05/15/21 of bone showed acute osteomyelitis. Operative culture, soft tissue, from 05/15/21 was positive for Escherichia coli, Klebsiella, Vanc. Resist. E. gallinarum, Vanc. Resist. E. faecalis. Operative culture, bone, from 05/15/21 was positive for Escherichia coli, Vanc. Resist. E. faecalis, Vanc. Resist. E. gallinarum. She was treated with Meropenem and Vancomycin. Linezolid was started after Vancomycin was stopped. Radiation from 05/17/21 - 06/12/21 18 treatments to T4-T7 area including paraspinal region. 06/06/21- Laparoscopic sigmoid colectomy with creation of end colostomy for fecal diversion. She healed out her ulcers November 2023. She states that she was having issues with her urinary catheter leaking which then caused skin breakdown on her left ischial area a little before Antoine. They have been using dressing supplies that they had left over (Dakin's, selena, aquacel-ag). They thought there might be some improvement in the ulcer, but now that it has been almost a month, they came back for further evaluation and treatment. Wound culture from 11/04/24 positive for Staphylococcus haemolyticus, Staphylococcus epidermidis, Escherichia coli, Corynebacterium striatum, and Cutibacterium acnes and she was treated with Levaquin and Linezolid. The patient denies a history of congestive heart failure, cerebrovascular accident, diabetes mellitus, thyroid disease, pulmonary disease, and renal disease. She has suffered a myocardial infarction in the past, and has had coronary revascularization performed in 2018. She is on long-term systemic anticoagulation with warfarin. [facility] Medical History MRSA (methicillin resistant Staphylococcus aureus) infection Pressure ulcer of ischium, stage 3 Chronic anticoagulation History of echocardiogram Wears glasses Wears dentures Uses wheelchair Indwelling urethral catheter present Anemia Non-smoker History of edema Cardiology follow-up encounter Pressure ulcer COVID-19 Decubitus ulcer of left ischium, stage 2 Pressure ulcer of right ischium MCI (mild cognitive impairment) Adrenal disorder Decubitus ulcer of left ischium, stage 4 Chronic indwelling Gutierrez catheter Hypertension Pressure sore UTI (urinary tract infection) Adynamic ileus Abdominal pain History of radiation therapy Neuropathic pain Diffuse large B cell lymphoma Paraplegia Debility Pressure ulcer of sacral region, stage 4 Osteomyelitis of pelvis Myocardial infarct Afib Pressure ulcer of sacral region, unstageable Diffuse large B-cell lymphoma Paraplegia Home Medications ?Medication ?Instructions ?Recorded ?Last Taken ?Type losartan 100 mg tablet 50 mg PO DAILY HEART 10/07/21 12/23/24 History amiodarone 200 mg tablet 200 mg PO DAILY@1400 HEART 12/12/21 Unknown History gabapentin 100 mg capsule 100 mg PO BID 12/12/21 12/23/24 History metoprolol succinate 50 mg 25 mg PO DAILY BP 12/12/21 12/23/24 History tablet,extended release 24 hr Lactobacillus acidophilus 10 10,000 mmu cells PO DAILY@1400 01/19/22 Unknown History billion cell capsule (Probiotic) supplement atorvastatin 40 mg tablet 40 mg PO QHS cholesterol 01/20/22 Unknown History MINGXIA RED 1 tsp PO DAILY 12/09/24 Unknown History sennosides 8.6 mg capsule (senna) 17.2 mg PO QHS 12/09/24 Unknown History warfarin 2 mg tablet 2 mg PO DAILY 12/09/24 12/17/24 History nystatin 100,000 unit/gram topical 1 applic topical BID 10 days #30 01/20/25 Unknown Rx cream grams sulfamethoxazole 800 1 tab PO Q12H Pressure Ulcer #20 04/10/25 Unknown Rx mg-trimethoprim 160 mg tablet tabs (Bactrim DS) linezolid 600 mg tablet 600 mg PO Q12H Wound Infection #20 04/14/25 Unknown Rx tabs linezolid 600 mg tablet 600 mg PO Q12H Wound infection #20 04/14/25 Unknown Rx tabs Allergy/AdvReac Type Severity Reaction Status Date / Time prednisone Allergy Intermediate atrial Verified 12/23/24 07:52 fibrillation Family History Father CHF (congestive heart failure) Myocardial infarction Mother CAD (coronary artery disease) Alzheimer disease Surgical History History of colectomy H/O Spinal surgery History of cholecystectomy S/P excisional debridement S/P cholecystectomy Hx of CABG Social History household members: family housing: house number of children: 5 Smoking Status: Never smoker alcohol intake: never substance use type: does not use what type of physical activity do you participate in: other details: leg therapy/hand weights frequency: 5-6 times per week chris/congregational: [facility] Vital Signs Vital Signs Vital Signs: Weight Weight: 150 lb 11.094 oz Body Mass Index (BMI) 25.0 Physical Exam Const alert, oriented x3, no apparent distress and average body habitus Constitutional Narrative: The patient's BMI is 25.1. General Appearance: cooperative, comfortable and well developed Orientation / Consciousness: awake, oriented to person, oriented to place and oriented to time HEENT normocephalic and head/scalp atraumatic Head and Scalp: normal to inspection, normocephalic and atraumatic Face and Sinus: normal facial exam Nose: external nose normal External Ear: external ears normal Eyes EOMs intact bilaterally General Eye: normal appearance of both eyes Neck full ROM Resp normal respiratory effort, normal air movement, no retractions and no use of accessory muscles Effort and Inspection: able to speak in complete sentences GI GI Narrative: The patient has a functional colostomy. Bladder / Kidney Exam: catheter in place Extremity Extremity Narrative: Upper extremities have full ROM. Paralyzed. Skin Wound Narrative: A pressure ulceration is noted on the left ischial region. It is full-thickness, through all layers of the dermis and into the subcutaneous tissues. This is a stage III pressure ulceration. Ulcer margins are well beveled. Dimensions are documented elsewhere. It appears generally pink and healthy, with active granulation tissue. There is a small amount of bioburden and nonviable tissue. The laney-ulcer skin is erythematous, macerated, and excoriated. Neuro oriented x3 and CN's II-XII intact bilaterally Neuro Narrative: The patient is paraplegic. Sensorium / Orientation: awake, alert, oriented to person, oriented to place and oriented to time Speech: speech normal Psych mental status grossly normal, thought process normal and cooperative Appearance: appropriate Debridement Note Debridement Note Wound debrided: Left ischial pressure ulceration Laterality: Left Wound Grade/Stage: Stage III Type of Debridement: Excisional debridement Anesthesia Used: 5% Lidocaine Gel Depth: Down to and including healthy tissue and in the subcutaneous layer Percentage of wound debrided: 100 Instrument Used: 5mm curette Tissue Removed: Bioburden and nonviable tissue Severity: Fat Layer Exposed Amount of bleeding with debridement: Mild Bleeding Controlled with: Compression and gauze Patient tolerated procedure: Patient tolerated procedure well Post-Debridement Measurements and Additional Note: Post-Debridement Measurements/Treatment - Nurse 1 - General Ulcer Assessment Start: 04/07/25 13:26 Freq: Status: Active Protocol: .LOWEXT Activity Type Activity Date Activity User E-sign Co-sign Detail Recorded Client Recorded Date Recorded By Document 04/07/25 13:26 [facility] [id number] 04/07/25 13:29 [facility] Document 04/14/25 13:25 [facility] [id number] 04/14/25 13:37 [facility] 04/07/25 04/14/25 13:26 13:25 - Today's Visit Information Type of service Follow-up Visit Follow-up Visit (Physician/CARD CLOTHIER (Physician/CARD CLOTHIER ) ) Arrival Mode Wheelchair Wheelchair Transfer Assistance Will Lift Will Lift Transfer Assist (Other) 2 Accompanied by daughter and DAUGHTER AND Patient Identification Verified (Name & Yes Yes ) Patient Requires Transmission-Based No No Precautions Height and Weight Body Mass Index (BMI) 25.0 25.0 BMI Classification Overweight Overweight Vital Signs Temperature (97.8 F-99.1 F) 98 F 98.4 F Temperature Source Temporal Temporal Pulse Rate (60-100) 59 L 56 L Pulse Location Monitor Monitor Respiratory Rate (12-18) 16 16 Respiratory rate source Observation Observation Oxygen Delivery Method Room Air Room Air Blood Pressure (90/60-120/80) 140/74 H 117/69 Blood Pressure Mean 96 85 Source Monitor Monitor Position Sitting Sitting Blood Pressure Location Right Arm Left Arm History Since Last Visit- (Skip if this is Patient's initial visit) Have you changed medications since your No No last visit? Any new allergies or adverse reactions No No Had a fall/change in ADL's that may No No increase risk of falls Signs or symptoms of abuse and/or No No neglect since last visit Have you been in the hospital since your No No last visit? Has dressing in place as prescribed Yes Yes Has compression in place as prescribed N/A N/A Has offloadiing in place as prescribed N/A N/A Experienced any changes in pain level or No No management Left Footwear Slipper Right Footwear Slipper Other Footwear SOCKS BLE Pain Scale: 0-10 Numeric Is Patient Pain Free? Yes Yes WC - Nurse 1 - General Ulcer Measurement Start: 04/07/25 13:26 Freq: Status: Active Protocol: Activity Type Activity Date Activity User E-sign Co-sign Detail Recorded Client Recorded Date Recorded By Document 04/07/25 13:26 [facility] [id number] 04/07/25 13:29 [facility] Document 04/14/25 13:25 [facility] [id number] 04/14/25 13:37 [facility] 04/07/25 04/14/25 13:26 13:25 [facility] Nurse 1 #4 l iSCHIAL -Combined with other wound No No -Current Size (cm) - Length 2 1.1 -Current Size (cm) - Width 1.5 0.9 -Current Size (cm) - Depth 0.1 0.1 -Total Square Cm 3.0 0.99 -Date of Last Picture (Recall this 04/07/25 04/14/25 field) -Photo Taken Yes Yes -Epithelialization None Present Small 1-33% -Tunneling No No -Undermining/Tunneling No No -Circular Undermining No No -Exudate Amt Medium Medium -Exudate Type Serosanguineous Serosanguineous -Wound Margin Distinct, Distinct, Outline Outline Attached Attached -Granulation Amt Large (67-100%) Large (67-100%) -Granulation Quality Red Red -Slough/Fibrin No No -Necrosis Amt None Present (0 None Present (0 %) %) -Texture (Laney-wound Skin Appearance) Assessed Assessed -Moisture (Laney-wound Skin Appearance) Assessed Assessed -Color (Laney-wound Skin Appearance) Assessed Assessed -Temperature (Laney-wound Skin No Abnormality No Abnormality Appearance) (Pt Warm) (Pt Warm) -Tenderness on Palpation (Laney-wound No No Skin Appearance) -Ulcer Cleansing Rinsed/ Rinsed/ Irrigated with Irrigated with Saline Saline -Foul Odor after Cleansing No No -Anesthetic Used 5% Lidocaine 5% Lidocaine Gel Gel WC - Nurse 2 - General Ulcer CM Notes Start: 04/07/25 13:26 Freq: Status: Active Protocol: Activity Type Activity Date Activity User E-sign Co-sign Detail Recorded Client Recorded Date Recorded By Document 04/07/25 13:41 [id number] 04/07/25 13:45 Document 04/14/25 14:11 [id number] 04/14/25 14:14 04/07/25 04/14/25 13:41 14:11 [facility] Nurse 2 #4 l iSCHIAL -Time 13:44 14:11 -Correct Patient Yes Yes -Correct Side, Site, Position Yes Yes -Correct Procedure Yes Yes -Procedure Performed Yes Yes -Type of Procedure Debridement Debridement -Clinical Debridement Subcutaneous Subcutaneous -Tissue Removed Subcutaneous Subcutaneous -Post Debridement (cm) - Length 1.0 0.9 -Post Debridement (cm) - Width 1.4 0.6 -Post Debridement (cm) - Depth 0.1 0.1 -Total Square (Post) (cm) 1.40 0.54 -Area of Debridement (cm) - Length 1.0 0.9 -Area of Debridement (cm) - Width 1.4 0.6 -Total Square (Area) (cm) 1.40 0.54 -Tunneling No No -Undermining/Tunneling No No -Circular Undermining No No -Wound/Ulcer Outcome Not Healed Not Healed -Ulcer Cleansing Rinsed/ Irrigated with Saline -Foul Odor after Cleansing No No -Bioengineered Tissue No No -Bleeding Controlled with Pressure Pressure -Treatment Response Procedure Procedure Tolerated Well Tolerated Well -Offloading No No -Debridement - Subq, 1st 20sq cm Yes Yes Pain Scale: 0-10 Numeric Is Patient Pain Free? Yes Yes WC - Nurse 3 - General Ulcer D/C NN Start: 04/07/25 13:26 Freq: Status: Active Protocol: Activity Type Activity Date Activity User E-sign Co-sign Detail Recorded Client Recorded Date Recorded By Document 04/07/25 14:09 DL [id number] 04/07/25 14:10 DL Document 04/14/25 14:38 ML [id number] 04/14/25 14:39 ML 04/07/25 04/14/25 14:09 14:38 [facility] Center Nurse 3 #4 l iSCHIAL -Ulcer Cleansing Rinsed/ Rinsed/ Irrigated with Irrigated with Saline Saline -Foul Odor after Cleansing No -Primary Dressing Applied Fibracol Plus Fibracol Plus 4x4,Silicone 4x4,Silicone Border Foam 6x6 Border Foam 6x6 -Other Dressing Skin Prep -Fibracol Plus 4x4 1 1 -Silicone Border Foam 6x6 1 1 Laney-Wound Care Barrier Treatment Response Procedure Tolerated Well Pain Scale: 0-10 Numeric Is Patient Pain Free? Yes Yes WC - Visit Discharge Discharge Condition Stable Ambulatory Status Wheelchair Transportation Private Auto Accompanied by family Lab / Micro Data Micro: Microbiology 04/07/25 13:43 Wound - Ischium Gram Stain - Final 04/07/25 13:43 Wound - Ischium Wound Culture - Final Meth. resistant Staph. aureus Enterococcus faecalis Corynebacterium jeikeium 04/07/25 13:43 Wound - Ischium Anaerobic Culture - Final Anaerobic cocci Charges/Coding Procedures Integumentary [id number]: [id number] Casie subq tissue 20 sq cm/< Assessment/Plan Assessment/Plan (1) 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, stage 3: CODE(S): L89.323 - Pressure ulcer of left buttock, stage 3 (2) Pressure ulcer of ischium, stage 3: CODE(S): L89.303 - Pressure ulcer of unspecified buttock, stage 3 QUALIFIERS: Laterality: left Qualified Code(s): L89.323 - Pressure ulcer of left buttock, stage 3 (3) Paraplegia: CODE(S): G82.20 - Paraplegia, unspecified (4) Large B-cell lymphoma: CODE(S): C85.10 - Unspecified B-cell lymphoma, unspecified site (5) Chronic indwelling Gutierrez catheter: CODE(S): Z97.8 - Presence of other specified devices (6) Non-smoker: CODE(S): Z78.9 - Other specified health status (7) Hypertension: CODE(S): I10 - Essential (primary) hypertension (8) Debility: CODE(S): R53.81 - Other malaise (9) Myocardial infarct: CODE(S): I21.9 - Acute myocardial infarction, unspecified (10) Afib: CODE(S): I48.91 - Unspecified atrial fibrillation (11) Diffuse large B-cell lymphoma: CODE(S): C83.30 - Diffuse large B-cell lymphoma, unspecified site QUALIFIERS: Lymphoma site: extranodal excluding spleen and other solid organs Qualified Code(s): C83.39 - Diffuse large B-cell lymphoma, extranodal and solid organ sites (12) Chronic anticoagulation: CODE(S): Z79.01 - retirement (current) use of anticoagulants PLAN: Plan This is an 79-year-old paraplegic female with a stage III pressure ulceration at the site of the left ischium. There is a moderate amount of inflammation and maceration about the ulceration. The patient's family indicates that this may be due to occasional leakage from the patient's Gutierrez catheter, accounting for moisture to the area of the ulceration. The patient's family is changing her undergarments frequently, and as necessary when moist. We are to continue the use of lightly moistened Fibracol topically to the ulcer on a daily basis. The patient and her family have been instructed in appropriate means of application. We are also to continue the use of a barrier protectant in the laney-ulcer area. The patient's family has been encouraged to continue changing her undergarments as necessary to avoid prolonged periods of moisture. Continued offloading measures have been advised. Measures are to be continued in an effort to reduce the effects of pressure, friction, and maceration. The patient has a Roho cushion and an air mattress, and frequent repositioning has been recommended. The patient's sacral ulceration remains healed. The patient has been advised to continue with a healthy diet and nutritional supplements. A culture from April 07, 2025, isolated methicillin-resistant Staph aureus, Enterococcus faecalis, Corynebacterium jeikeium, and an anaerobic cocci. The patient had initially been placed on Bactrim double strength, but has been switched to linezolid 600 mg p.o. every 12 hours for 10 days. The patient is to follow-up in 1 week for reevaluation. Total time: 24 minutes
== END 2025-04-19 23:59 | disposition home or self-care (01) ==
LOC: WC 13:30
PROVIDERS: PCP Student in an Organized Health Care Education/Training Program; Referring Provider Student in an Organized Health Care Education/Training Program; Visit Provider Surgery
DX: L89.223 Pressure ulcer of left hip, stage 3 (principal); C83.398 Diffuse large B-cell lymphoma of other extranodal and solid organ sites; G82.20 Paraplegia, unspecified; I11.0 Hypertensive heart disease with heart failure; I50.9 Heart failure, unspecified; I48.91 Unspecified atrial fibrillation; Z79.01 Long term (current) use of anticoagulants; Z86.14 Personal history of Methicillin resistant Staphylococcus aureus infection; I25.2 Old myocardial infarction; Z79.899 Other long term (current) drug therapy
CPT/HCPCS: 11042; 87070; 87075; 87077; 87186; 87205

== ENCOUNTER 2025-05-18 11:15 | Outpatient (RCR) | payer OTHER, SELFPAY ==
[2025-04-27 13:23] VITALS: BP 148/74; PULSE 58; RESP 16; TEMP 36.3
--- NOTE | 2025-04-28 08:59 | WC ---
PHOTO 04/27/25 LEFT ISCHIUM
--- NOTE | 2025-05-01 17:22 | HP.PCM_ITS ---
History of Present Illness Date of Service: 04/27/25 Chief Complaint: Left ischial pressure ulceration, stage III History of Wound: This is an 79-year-old female, [facility] by a provider who has transferred to another facility. 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 She had progressive paraplegia. She went to TCU for acute rehab for this progressive paraplegia. During that time she had worsening sacral pressure sore with skin necrosis. Surgery 05/15/21 - Excision necrotic sacral pressure sore, Stage IV, with partial ostectomy for osteomyelitis. Pathology from surgery on 05/15/21 of bone showed acute osteomyelitis. Operative culture, soft tissue, from 05/15/21 was positive for Escherichia coli, Klebsiella, Vanc. Resist. E. gallinarum, Vanc. Resist. E. faecalis. Operative culture, bone, from 05/15/21 was positive for Escherichia coli, Vanc. Resist. E. faecalis, Vanc. Resist. E. gallinarum. She was treated with Meropenem and Vancomycin. Linezolid was started after Vancomycin was stopped. Radiation from 05/17/21 - 06/12/21 18 treatments to T4-T7 area including paraspinal region. 06/06/21- Laparoscopic sigmoid colectomy with creation of end colostomy for fecal diversion. She healed out her ulcers November 2023. She states that she was having issues with her urinary catheter leaking which then caused skin breakdown on her left ischial area a little before Antoine. They have been using dressing supplies that they had left over (Dakin's, selena, aquacel-ag). They thought there might be some improvement in the ulcer, but now that it has been almost a month, they came back for further evaluation and treatment. Wound culture from 11/04/24 positive for Staphylococcus haemolyticus, Staphylococcus epidermidis, Escherichia coli, Corynebacterium striatum, and Cutibacterium acnes and she was treated with Levaquin and Linezolid. The patient denies a history of congestive heart failure, cerebrovascular accident, diabetes mellitus, thyroid disease, pulmonary disease, and renal disease. She has suffered a myocardial infarction in the past, and has had coronary revascularization performed in 2018. She is on long-term systemic anticoagulation with warfarin. [facility] Medical History MRSA (methicillin resistant Staphylococcus aureus) infection Pressure ulcer of ischium, stage 3 Chronic anticoagulation History of echocardiogram Wears glasses Wears dentures Uses wheelchair Indwelling urethral catheter present Anemia Non-smoker History of edema Cardiology follow-up encounter Pressure ulcer COVID-19 Decubitus ulcer of left ischium, stage 2 Pressure ulcer of right ischium MCI (mild cognitive impairment) Adrenal disorder Decubitus ulcer of left ischium, stage 4 Chronic indwelling Gutierrez catheter Hypertension Pressure sore UTI (urinary tract infection) Adynamic ileus Abdominal pain History of radiation therapy Neuropathic pain Diffuse large B cell lymphoma Paraplegia Debility Pressure ulcer of sacral region, stage 4 Osteomyelitis of pelvis Myocardial infarct Afib Pressure ulcer of sacral region, unstageable Diffuse large B-cell lymphoma Paraplegia Home Medications ?Medication ?Instructions ?Recorded ?Last Taken ?Type losartan 100 mg tablet 50 mg PO DAILY HEART 1 12/23/24 History amiodarone 200 mg tablet 200 mg PO DAILY@1400 HEART 0 12/12/21 Unknown History gabapentin 100 mg capsule 100 mg PO BID 12/12/2112/23 History metoprolol succinate 50 mg 25 mg PO DAILY BP 12/12/21 12/23/24 History tablet,extended release 24 hr Lactobacillus acidophilus 10 10,000 mmu cells PO DAILY @1400 01/19/22 Unknown History billion cell capsule (Probiotic) supplement atorvastatin 40 mg tablet 40 mg PO QHS cholesterol 12/12 Unknown History MINGXIA RED 1 tsp PO DAILY 12/09/24 Unkn own History sennosides 8.6 mg capsule (senna) 17.2 mg PO QHS 12/09 Unknown History warfarin 2 mg tablet 2 mg PO DAILY 12/09/2412/17 History nystatin 100,000 unit/gram topical 1 applic topical BI D 10 days #30 01/20/25 Unknown Rx cream grams sulfamethoxazole 800 1 tab PO Q12H Pressure Ulcer #20 04/10/25 Unknown Rx mg-trimethoprim 160 mg tablet tabs (Bactrim DS) linezolid 600 mg tablet 600 mg PO Q12H Wound Infecti on #20 04/14/25 Unknown Rx tabs linezolid 600 mg tablet 600 mg PO Q12H Wound infecti on #20 04/14/25 Unknown Rx tabs Allergy/AdvReac Type Severity Reaction Status Date / Time prednisone Allergy Intermediate atrial Verified 12/23/24 07:52 fibrillation Family History Father CHF (congestive heart failure) Myocardial infarction Mother CAD (coronary artery disease) Alzheimer disease Surgical History History of colectomy H/O Spinal surgery History of cholecystectomy S/P excisional debridement S/P cholecystectomy Hx of CABG Social History household members: family housing: house number of children: 5 Smoking Status: Never smoker alcohol intake: never substance use type: does not use what type of physical activity do you participate in: other details: leg therapy/hand weights frequency: 5-6 times per week chris/uatsdin: [facility] Physical Exam Const alert, oriented x3, no apparent distress and average body habitus Constitutional Narrative: The patient's BMI is 25.1. General Appearance: cooperative, comfortable and well developed Orientation / Consciousness: awake, oriented to person, oriented to place and oriented to time HEENT normocephalic and head/scalp atraumatic Head and Scalp: normal to inspection, normocephalic and atraumatic Face and Sinus: normal facial exam Nose: external nose normal External Ear: external ears normal Eyes EOMs intact bilaterally General Eye: normal appearance of both eyes Neck full ROM Resp normal respiratory effort, normal air movement, no retractions and no use of accessory muscles Effort and Inspection: able to speak in complete sentences GI GI Narrative: The patient has a functional colostomy. Bladder / Kidney Exam: catheter in place Extremity Extremity Narrative: Upper extremities have full ROM. Paralyzed. Skin Wound Narrative: A pressure ulceration is noted on the left ischial region. It is full- thickness, through all layers of the dermis and into the subcutaneous tissues. This is a stage III pressure ulceration. Ulcer margins are well beveled. Dimensions are documented elsewhere. It appears to be slightly smaller. It is generally pink and healthy, with active granulation tissue. There is a small amount of bioburden and nonviable tissue. The laney-ulcer skin is erythematous, macerated, and excoriated. Neuro oriented x3 and CN's II-XII intact bilaterally Neuro Narrative: The patient is paraplegic. Sensorium / Orientation: awake, alert, oriented to person, oriented to place and oriented to time Speech: speech normal Psych mental status grossly normal, thought process normal and cooperative Appearance: appropriate Debridement Note Debridement Note No debridement was completed: No debridement was completed today Post-Debridement Measurements and Additional Note: Post-Debridement Measurements/Treatment - Nurse 1 - General Ulcer Assessment Start: 04/27/25 13:23 Freq: Status: Active Protocol: KRANTHI Activity Type Activity Date Activity User E-sign Co-sign Detail Recorded Client Recorded Date Recorded By Document 04/27/25 13:23 [facility] [id number] 04/27/25 13:25 [facility] 04/27/25 13:23 WC - Today's Visit Information Type of service Follow-up Visit (Physician/CYTOMETRY TECHNOLOGIST ) Arrival Mode Wheelchair Transfer Assistance Will Lift Transfer Assist (Other) 3 Accompanied by daughter and Patient Identification Verified (Name & Yes ) Patient Requires Transmission-Based No Precautions Vital Signs Temperature (97.8 F-99.1 F) 97.4 F L Temperature Source Temporal Pulse Rate (60-100) 58 L Pulse Location Monitor Respiratory Rate (12-18) 16 Respiratory rate source Observation Oxygen Delivery Method Room Air Blood Pressure (90/60-120/80) 148/74 H Blood Pressure Mean 98 Source Monitor Position Sitting Blood Pressure Location Right Arm History Since Last Visit- (Skip if this is Patient's initial visit) Have you changed medications since your No last visit? Any new allergies or adverse reactions No Had a fall/change in ADL's that may No increase risk of falls Signs or symptoms of abuse and/or No neglect since last visit Have you been in the hospital since your No last visit? Has dressing in place as prescribed Yes Has compression in place as prescribed N/A Has offloadiing in place as prescribed N/A Experienced any changes in pain level or No management Left Footwear Slipper Right Footwear Slipper Pain Scale: 0-10 Numeric Is Patient Pain Free? Yes Arelis Nurse 1 - General Ulcer Measurement Start: 04/27/25 13:23 Freq: Status: Active Protocol: Activity Type Activity Date Activity User E-sign Co-sign Detail Recorded Client Recorded Date Recorded By Document 04/27/25 13:23 [facility] [id number] 04/27/25 13:25 [facility] 04/27/25 13:23 [facility] Nurse 1 #4 l iSCHIAL -Combined with other wound No -Current Size (cm) - Length 0.4 -Current Size (cm) - Width 0.5 -Current Size (cm) - Depth 0.1 -Total Square Cm 0.20 -Date of Last Picture (Recall this 04/27/25 field) -Photo Taken Yes -Epithelialization Small 1-33% -Tunneling No -Undermining/Tunneling No -Circular Undermining No -Exudate Amt Medium -Exudate Type Serosanguineous -Wound Margin Flat & Intact -Granulation Amt Large (67-100%) -Granulation Quality Red -Slough/Fibrin No -Necrosis Amt Small (1-33%) -Necrotic Tissue Type Adherent Slough -Texture (Laney-wound Skin Appearance) Assessed, Scarring -Moisture (Laney-wound Skin Appearance) Assessed,Dry/ Scaly -Color (Laney-wound Skin Appearance) Assessed -Temperature (Laney-wound Skin No Abnormality Appearance) (Pt Warm) -Tenderness on Palpation (Laney-wound No Skin Appearance) -Ulcer Cleansing Rinsed/ Irrigated with Saline -Foul Odor after Cleansing No -Anesthetic Used 5% Lidocaine Gel WC - Nurse 2 - General Ulcer CM Notes Start: 04/27/25 13:23 Freq: Status: Active Protocol: Activity Type Activity Date Activity User E-sign Co-sign Detail Recorded Client Recorded Date Recorded By Document 04/27/25 13:36 [id number] 04/27/25 13:41 04/27/25 13:36 [facility] Nurse 2 -Time 13:36 -Correct Patient Yes -Correct Side, Site, Position Yes -Procedure Performed No -Post Debridement (cm) - Length 0.6 -Post Debridement (cm) - Width 0.5 -Post Debridement (cm) - Depth 0.1 -Total Square (Post) (cm) 0.30 -Area of Debridement (cm) - Length 0.5 -Area of Debridement (cm) - Width 0.6 -Total Square (Area) (cm) 0.30 -Tunneling No -Undermining/Tunneling No -Circular Undermining No -Wound/Ulcer Outcome Not Healed Pain Scale: 0-10 Numeric Is Patient Pain Free? Yes WC - Nurse 3 - General Ulcer D/C NN Start: 04/27/25 13:23 Freq: Status: Active Protocol: Activity Type Activity Date Activity User E-sign Co-sign Detail Recorded Client Recorded Date Recorded By Document 04/27/25 13:53 [facility] [id number] 04/27/25 13:53 KW 04/27/25 13:53 [facility] Nurse 3 #4 l iSCHIAL -Primary Dressing Applied Fibracol Plus 4x4,Silicone Border Foam 4x4 -Fibracol Plus 4x4 1 -Silicone Border Foam 4x4 1 Pain Scale: 0-10 Numeric Is Patient Pain Free? Yes WC - Visit Discharge Discharge Condition Stable Ambulatory Status Wheelchair Transportation Private Auto Medication Reconcilliation completed & No provided to patient/care provider Clinical Summary of Care Provided Yes Charges/Coding Visit Charges Office Visits / Consults: [id number] OV L3 Est 20min Assessment/Plan Assessment/Plan (1) 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, stage 3: CODE(S): L89.323 - Pressure ulcer of left buttock, stage 3 (2) Pressure ulcer of ischium, stage 3: CODE(S): L89.303 - Pressure ulcer of unspecified buttock, stage 3 QUALIFIERS: Laterality: left Qualified Code(s): L89.323 - Pressure ulcer of left buttock, stage 3 (3) Paraplegia: CODE(S): G82.20 - Paraplegia, unspecified (4) Large B-cell lymphoma: CODE(S): C85.10 - Unspecified B-cell lymphoma, unspecified site (5) Chronic indwelling Gutierrez catheter: CODE(S): Z97.8 - Presence of other specified devices (6) Non-smoker: CODE(S): Z78.9 - Other specified health status (7) Hypertension: CODE(S): I10 - Essential (primary) hypertension (8) Debility: CODE(S): R53.81 - Other malaise (9) Myocardial infarct: CODE(S): I21.9 - Acute myocardial infarction, unspecified (10) Afib: CODE(S): I48.91 - Unspecified atrial fibrillation (11) Diffuse large B-cell lymphoma: CODE(S): C83.30 - Diffuse large B-cell lymphoma, unspecified site QUALIFIERS: Lymphoma site: extranodal excluding spleen and other solid organs Qualified Code(s): C83.39 - Diffuse large B-cell lymphoma, extranodal and solid organ sites (12) Chronic anticoagulation: CODE(S): Z79.01 - terminologist (current) use of anticoagulants PLAN: Plan This is an 79-year-old paraplegic female with a stage III pressure ulceration at the site of the left ischium. There is a moderate amount of inflammation and maceration about the ulceration. The patient's family indicates that this may be due to occasional leakage from the patient's Gutierrez catheter, accounting for moisture to the area of the ulceration. There has been less leakage recently, as the patient's family has been very attentive. The patient's family is changing her undergarments frequently, and as necessary when moist. We are to continue the use of lightly moistened Fibracol topically to the ulcer on a daily basis, covered with [place] SAP. The patient and her family have been instructed in appropriate means of application. We are also to continue the use of a b arrier protectant in the laney-ulcer area, and Aquaphor to the nearby areas of dry, scaly skin. The patient's family has been encouraged to continue changing her undergarments as necessary to avoid prolonged periods of moisture. Continued offloading measures have been advised. Measures are to be continued in an effort to reduce the effects of pressure, friction, and maceration. The patient has a Roho cushion and an air mattress, and frequent repositioning has been recommended. The patient's sacral ulceration remains healed. The patient has been advised to continue with a healthy diet and nutritional supplements. She has been provided samples of Shaan. A culture from April 07, 2025, isolated methicillin-resistant Staph aureus, Enterococcus faecalis, Corynebacterium jeikeium, and an anaerobic cocci. The patient had initially been placed on Bactrim double strength, but was switched to linezolid 600 mg p.o. every 12 hours for 10 days, which has now been completed. The patient is to follow-up in 2 weeks for reevaluation. Total time: 25 minutes
[2025-05-18 11:07] VITALS: BP 148/72; PULSE 53; RESP 16; TEMP 36.5
--- NOTE | 2025-05-19 13:21 | WC ---
PHOTO-LEFT ISCHIAL 05/18/25
--- NOTE | 2025-05-19 20:11 | HP.PCM_ITS ---
History of Present Illness Date of Service: 05/18/25 Chief Complaint: Left ischial pressure ulceration, stage III History of Wound: This is an 79-year-old female, [facility] by a provider who has transferred to another facility. 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 She had progressive paraplegia. She went to TCU for acute rehab for this progressive paraplegia. During that time she had worsening sacral pressure sore with skin necrosis. Surgery 05/15/21 - Excision necrotic sacral pressure sore, Stage IV, with partial ostectomy for osteomyelitis. Pathology from surgery on 05/15/21 of bone showed acute osteomyelitis. Operative culture, soft tissue, from 05/15/21 was positive for Escherichia coli, Klebsiella, Vanc. Resist. E. gallinarum, Vanc. Resist. E. faecalis. Operative culture, bone, from 05/15/21 was positive for Escherichia coli, Vanc. Resist. E. faecalis, Vanc. Resist. E. gallinarum. She was treated with Meropenem and Vancomycin. Linezolid was started after Vancomycin was stopped. Radiation from 05/17/21 - 06/12/21 18 treatments to T4-T7 area including paraspinal region. 06/06/21- Laparoscopic sigmoid colectomy with creation of end colostomy for fecal diversion. She healed out her ulcers November 2023. She states that she was having issues with her urinary catheter leaking which then caused skin breakdown on her left ischial area a little before Antoine. They have been using dressing supplies that they had left over (Dakin's, selena, aquacel-ag). They thought there might be some improvement in the ulcer, but now that it has been almost a month, they came back for further evaluation and treatment. Wound culture from 11/04/24 positive for Staphylococcus haemolyticus, Staphylococcus epidermidis, Escherichia coli, Corynebacterium striatum, and Cutibacterium acnes and she was treated with Levaquin and Linezolid. The patient denies a history of congestive heart failure, cerebrovascular accident, diabetes mellitus, thyroid disease, pulmonary disease, and renal disease. She has suffered a myocardial infarction in the past, and has had coronary revascularization performed in 2018. She is on long-term systemic anticoagulation with warfarin. [facility] Medical History MRSA (methicillin resistant Staphylococcus aureus) infection Pressure ulcer of ischium, stage 3 Chronic anticoagulation History of echocardiogram Wears glasses Wears dentures Uses wheelchair Indwelling urethral catheter present Anemia Non-smoker History of edema Cardiology follow-up encounter Pressure ulcer COVID-19 Decubitus ulcer of left ischium, stage 2 Pressure ulcer of right ischium MCI (mild cognitive impairment) Adrenal disorder Decubitus ulcer of left ischium, stage 4 Chronic indwelling Gutierrez catheter Hypertension Pressure sore UTI (urinary tract infection) Adynamic ileus Abdominal pain History of radiation therapy Neuropathic pain Diffuse large B cell lymphoma Paraplegia Debility Pressure ulcer of sacral region, stage 4 Osteomyelitis of pelvis Myocardial infarct Afib Pressure ulcer of sacral region, unstageable Diffuse large B-cell lymphoma Paraplegia Home Medications ?Medication ?Instructions ?Recorded ?Last Taken ?Type losartan 100 mg tablet 50 mg PO DAILY HEART 1 12/23/24 History amiodarone 200 mg tablet 200 mg PO DAILY@1400 HEART 0 12/12/21 Unknown History gabapentin 100 mg capsule 100 mg PO BID 12/12/2112/23 History metoprolol succinate 50 mg 25 mg PO DAILY BP 12/12/21 12/23/24 History tablet,extended release 24 hr Lactobacillus acidophilus 10 10,000 mmu cells PO DAILY @1400 01/19/22 Unknown History billion cell capsule (Probiotic) supplement atorvastatin 40 mg tablet 40 mg PO QHS cholesterol 12/12 Unknown History MINGXIA RED 1 tsp PO DAILY 12/09/24 Unkn own History sennosides 8.6 mg capsule (senna) 17.2 mg PO QHS 12/09 Unknown History warfarin 2 mg tablet 2 mg PO DAILY 12/09/2412/17 History nystatin 100,000 unit/gram topical 1 applic topical BI D 10 days #30 01/20/25 Unknown Rx cream grams sulfamethoxazole 800 1 tab PO Q12H Pressure Ulcer #20 04/10/25 Unknown Rx mg-trimethoprim 160 mg tablet tabs (Bactrim DS) linezolid 600 mg tablet 600 mg PO Q12H Wound Infecti on #20 04/14/25 Unknown Rx tabs linezolid 600 mg tablet 600 mg PO Q12H Wound infecti on #20 04/14/25 Unknown Rx tabs Allergy/AdvReac Type Severity Reaction Status Date / Time prednisone Allergy Intermediate atrial Verified 12/23/24 07:52 fibrillation Family History Father CHF (congestive heart failure) Myocardial infarction Mother CAD (coronary artery disease) Alzheimer disease Surgical History History of colectomy H/O Spinal surgery History of cholecystectomy S/P excisional debridement S/P cholecystectomy Hx of CABG Social History household members: family housing: house number of children: 5 Smoking Status: Never smoker alcohol intake: never substance use type: does not use what type of physical activity do you participate in: other details: leg therapy/hand weights frequency: 5-6 times per week chris/zoroastrianism: [facility] Physical Exam Const alert, oriented x3, no apparent distress and average body habitus Constitutional Narrative: The patient's BMI is 25.1. General Appearance: cooperative, comfortable and well developed Orientation / Consciousness: awake, oriented to person, oriented to place and oriented to time HEENT normocephalic and head/scalp atraumatic Head and Scalp: normal to inspection, normocephalic and atraumatic Face and Sinus: normal facial exam Nose: external nose normal External Ear: external ears normal Eyes EOMs intact bilaterally General Eye: normal appearance of both eyes Neck full ROM Resp normal respiratory effort, normal air movement, no retractions and no use of accessory muscles Effort and Inspection: able to speak in complete sentences GI GI Narrative: The patient has a functional colostomy. Bladder / Kidney Exam: catheter in place Extremity Extremity Narrative: Upper extremities have full ROM. Paralyzed. Skin Wound Narrative: The pressure ulceration in the left ischial region is now completely healed and epithelialized. There is no sign of infection, cellulitis, or fluctuance. Neuro oriented x3 and CN's II-XII intact bilaterally Neuro Narrative: The patient is paraplegic. Sensorium / Orientation: awake, alert, oriented to person, oriented to place and oriented to time Speech: speech normal Psych mental status grossly normal, thought process normal and cooperative Appearance: appropriate Debridement Note Debridement Note No debridement was completed: No debridement was completed today (There are no open wounds or ulcerations.) Post-Debridement Measurements and Additional Note: Post-Debridement Measurements/Treatment - Nurse 1 - General Ulcer Assessment Start: 04/27/25 13:23 Freq: Status: Active Protocol: KRANTHI Activity Type Activity Date Activity User E-sign Co-sign Detail Recorded Client Recorded Date Recorded By Document 04/27/25 13:23 [facility] [id number] 04/27/25 13:25 [facility] Document 05/18/25 11:07 [facility] [id number] 05/18/25 11:10 [facility] 04/27/25 05/18/25 13:23 11:07 - Today's Visit Information Type of service Follow-up Visit Follow-up Visit (Physician/[employer] [place] (Physician/[facility] [facility] [place] ) ) Arrival Mode Wheelchair Wheelchair Transfer Assistance Will Lift Will Lift Transfer Assist (Other) 3 Accompanied by daughter and and val Patient Identification Verified (Name & Yes Yes ) Patient Requires Transmission-Based No No Precautions Vital Signs Temperature (97.8 F-99.1 F) 97.4 F L 97.7 F L Temperature Source Temporal Temporal Pulse Rate (60-100) 58 L 53 L Pulse Location Monitor Monitor Respiratory Rate (12-18) 16 16 Respiratory rate source Observation Ventilator Oxygen Delivery Method Room Air Room Air Blood Pressure (90/60-120/80) 148/74 H 148/72 H Blood Pressure Mean 98 97 Source Monitor Monitor Position Sitting Sitting Blood Pressure Location Right Arm Left Arm History Since Last Visit- (Skip if this is Patient's initial visit) Have you changed medications since your No No last visit? Any new allergies or adverse reactions No No Had a fall/change in ADL's that may No No increase risk of falls Signs or symptoms of abuse and/or No No neglect since last visit Have you been in the hospital since your No No last visit? Has dressing in place as prescribed Yes Yes Has compression in place as prescribed N/A N/A Has offloadiing in place as prescribed N/A N/A Experienced any changes in pain level or No No management Left Footwear Slipper Slipper Right Footwear Slipper Slipper Pain Scale: 0-10 Numeric Is Patient Pain Free? Yes Yes - Nurse 1 - General Ulcer Measurement Start: 04/27/25 13:23 Freq: Status: Active Protocol: Activity Type Activity Date Activity User E-sign Co-sign Detail Recorded Client Recorded Date Recorded By Document 04/27/25 13:23 [facility] [id number] 04/27/25 13:25 [facility] Document 05/18/25 11:07 [facility] [id number] 05/18/25 11:10 [facility] 04/27/25 05/18/25 13:23 11:07 Wound Center Nurse 1 #4 l iSCHIAL -Combined with other wound No No -Current Size (cm) - Length 0.4 0.1 -Current Size (cm) - Width 0.5 0.1 -Current Size (cm) - Depth 0.1 0.1 -Total Square Cm 0.20 0.01 -Date of Last Picture (Recall this 04/27/25 05/18/25 field) -Photo Taken Yes Yes -Epithelialization Small 1-33% Large 67-100% -Tunneling No No -Undermining/Tunneling No No -Circular Undermining No No -Exudate Amt Medium None Present -Exudate Type Serosanguineous -Wound Margin Flat & Intact -Granulation Amt Large (67-100%) -Granulation Quality Red -Slough/Fibrin No -Necrosis Amt Small (1-33%) -Necrotic Tissue Type Adherent Slough -Texture (Laney-wound Skin Appearance) Assessed, Assessed, Scarring Scarring -Moisture (Laney-wound Skin Appearance) Assessed,Dry/ Assessed,Dry/ Scaly Scaly -Color (Laney-wound Skin Appearance) Assessed Assessed -Temperature (Laney-wound Skin No Abnormality No Abnormality Appearance) (Pt Warm) (Pt Warm) -Tenderness on Palpation (Laney-wound No No Skin Appearance) -Ulcer Cleansing Rinsed/ Soap and Water Irrigated with Saline -Foul Odor after Cleansing No No -Anesthetic Used 5% Lidocaine Gel WC - Nurse 2 - General Ulcer CM Notes Start: 04/27/25 13:23 Freq: Status: Active Protocol: Activity Type Activity Date Activity User E-sign Co-sign Detail Recorded Client Recorded Date Recorded By Document 04/27/25 13:36 DS [id number] 04/27/25 13:41 DS Document 05/18/25 11:41 DS [id number] 05/18/25 11:42 DS 04/27/25 05/18/25 13:36 11:41 Wound Center Nurse 2 #4 l iSCHIAL -Time 13:36 11:41 -Correct Patient Yes Yes -Correct Side, Site, Position Yes Yes -Procedure Performed No No -Post Debridement (cm) - Length 0.6 -Post Debridement (cm) - Width 0.5 -Post Debridement (cm) - Depth 0.1 -Total Square (Post) (cm) 0.30 -Area of Debridement (cm) - Length 0.5 -Area of Debridement (cm) - Width 0.6 -Total Square (Area) (cm) 0.30 -Tunneling No -Undermining/Tunneling No -Circular Undermining No -Wound/Ulcer Outcome Not Healed Healed- Epithelialized Pain Scale: 0-10 Numeric Is Patient Pain Free? Yes Yes - Nurse 3 - General Ulcer D/C NN Start: 04/27/25 13:23 Freq: Status: Active Protocol: Activity Type Activity Date Activity User E-sign Co-sign Detail Recorded Client Recorded Date Recorded By Document 04/27/25 13:53 [id number] 04/27/25 13:53 Document 05/18/25 11:50 [facility] [id number] 05/18/25 11:51 [facility] 04/27/25 05/18/25 13:53 11:50 W[facility] Center Nurse 3 #4 l iSCHIAL -Primary Dressing Applied Fibracol Plus 4x4,Silicone Border Foam 4x4 -Other Dressing sample border foam drsg per jf rn -Fibracol Plus 4x4 1 -Silicone Border Foam 4x4 1 Treatment Response Procedure Tolerated Well Pain Scale: 0-10 Numeric Is Patient Pain Free? Yes Yes - Visit Discharge Discharge Condition Stable Stable Ambulatory Status Wheelchair Wheelchair Transportation Private Auto Private Auto Accompanied by and daughter Medication Reconcilliation completed & No provided to patient/care provider Clinical Summary of Care Provided Yes Charges/Coding Visit Charges Office Visits / Consults: 25120 OV L3 Est 20min Assessment/Plan Assessment/Plan (1) 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, stage 3: CODE(S): L89.323 - Pressure ulcer of left buttock, stage 3 (2) Pressure ulcer of ischium, stage 3: CODE(S): L89.303 - Pressure ulcer of unspecified buttock, stage 3 QUALIFIERS: Laterality: left Qualified Code(s): L89.323 - Pressure ulcer of left buttock, stage 3 (3) Paraplegia: CODE(S): G82.20 - Paraplegia, unspecified (4) Large B-cell lymphoma: CODE(S): C85.10 - Unspecified B-cell lymphoma, unspecified site (5) Chronic indwelling Gutierrez catheter: CODE(S): Z97.8 - Presence of other specified devices (6) Non-smoker: CODE(S): Z78.9 - Other specified health status (7) Hypertension: CODE(S): I10 - Essential (primary) hypertension (8) Debility: CODE(S): R53.81 - Other malaise (9) Myocardial infarct: CODE(S): I21.9 - Acute myocardial infarction, unspecified (10) Afib: CODE(S): I48.91 - Unspecified atrial fibrillation (11) Diffuse large B-cell lymphoma: CODE(S): C83.30 - Diffuse large B-cell lymphoma, unspecified site QUALIFIERS: Lymphoma site: extranodal excluding spleen and other solid organs Qualified Code(s): C83.39 - Diffuse large B-cell lymphoma, extranodal and solid organ sites (12) Chronic anticoagulation: CODE(S): Z79.01 - snf (current) use of anticoagulants PLAN: Plan This is an 79-year-old paraplegic female who presented with a stage III pressure ulceration overlying the left ischium. As of today's visit, the ischial pressure ulceration is completely healed and epithelialized. Therefore, the patient is to be discharged, and will follow-up henceforth on an as-needed basis. The patient and her family have been advised to continue with offloading measures. Good Gutierrez catheter maintenance has been advised to avoid moisture in the patient's undergarments adjacent to the ischial regions. Additionally, they have been advised to continue with a healthy diet and nutritional supplements as needed. The patient has a Roho cushion and an air mattress, and frequent repositioning has been recommended. Total time: 22 minutes
== END 2025-05-20 14:44 | disposition home or self-care (01) ==
LOC: WC 11:15
PROVIDERS: PCP Student in an Organized Health Care Education/Training Program; Referring Provider Student in an Organized Health Care Education/Training Program; Visit Provider Surgery
DX: L89.223 Pressure ulcer of left hip, stage 3 (principal); C83.398 Diffuse large B-cell lymphoma of other extranodal and solid organ sites; G82.20 Paraplegia, unspecified; I48.91 Unspecified atrial fibrillation; I25.2 Old myocardial infarction; Z79.899 Other long term (current) drug therapy; I10 Essential (primary) hypertension
CPT/HCPCS: 99213; G0463

== ENCOUNTER → 2025-10-13 | Outpatient (CLI) | payer SELFPAY, OTHER ==
--- NOTE | 2025-10-13 08:07 | CT_ITS ---
PROCEDURE: BRAIN/HEAD W/WO CONTRAST 10/13/2025 REASON FOR EXAM: FOLLOW-UP LEFT ACOUSTIC NEUROMA TECHNIQUE: Procedure Code: [id number] Modality: CT Procedure: BRAIN/HEAD W/WO CONTRAST Coronal and Sagittal reconstruction series were provided. CONTRAST: Isovue 370 VOLUME: 75 mL One or more dose reduction techniques were used (e.g., Automated exposure control, adjustment of the mA and/or kV according to patient size, use of iterative reconstruction technique). RADIATION DOSE SUMMARY: CTDlvol: 44.99 mGy DLP: 1749.7 mGycm COMPARISON: CT head March 05, 2024. FINDINGS: Acute findings: None Brain: No acute territorial infarction. No acute intracranial hemorrhage. No mass-effect or midline shift. Diffuse white matter hypodensities which are nonspecific but likely due to chronic small-vessel ischemia. Parenchymal volume loss consistent with brain atrophy. No ventriculomegaly. The orbits are unremarkable. The craniocervical junction is unremarkable. Postcontrast images: A stable 5 mm enhancing lesion in the left internal acoustic canal consistent with known vestibular schwannoma. CSF Spaces: Advanced generalized cerebral atrophy Sinuses/Mastoids: Clear at visualized levels Bones: No acute bony elements. CT/Brain/Head W/WO Contrast IMPRESSION: A stable 5 mm enhancing lesion in the left internal acoustic canal consistent w ith known vestibular schwannoma. No acute brain abnormalities. Reading Location: [facility]
--- OUTSIDE RECORDS SUMMARY | 2025-10-13 08:07 | XMS RPT_ITS | CCD ---
Author Organization [facility] Care Team Providers Care Outside Food Server Name Role Phone Dr. Modesto Fulton Primary Care Provider Isaias RECORDS AND INFORMATION MANAGER, RECORDS AND INFORMATION MANAGER-C Barbra E Attending Provider Isaias RECORDS AND INFORMATION MANAGER, RECORDS AND INFORMATION MANAGER-C Barbra E Referring Provider Isaias RECORDS AND INFORMATION MANAGER, RECORDS AND INFORMATION MANAGER-C Barbra E Other Provider Dr. Ashkan Vee Emergency Provider [phone] Calli Mendez Admit Provider Dr. Calli Mendez Attending Provider [phone] Calli Mendez Other Provider Dr. Jose Garcia Attending Provider Dr. Jose Garcia Other Provider Dr. Dieudonne Peña Other Provider Dr. Modesto Fulton Referring Provider Dr. Aric Polo Attending Provider [phone] Jake Johnson Attending Provider Dr. Jennie Mcintyre Primary Care Provider Dr. Jennie Mcintyre Referring Provider Dr. Jose Machado Attending Provider MD Lico Phelan Emergency Provider Dr. Robin Wall Admit Provider Dr. Robin Wall Attending Provider Dr. Robin Wall Other Provider Dr. Jorge Schneider Attending Provider Dr. Jorge Schneider Other Provider Friend, Dr. Santos Other Provider Friend, Dr. Santos Attending Provider Dr. Modesto Fulton Primary Care Provider Isaias RECORDS AND INFORMATION MANAGER, RECORDS AND INFORMATION MANAGER-C Barbra E Attending Provider Isaias RECORDS AND INFORMATION MANAGER, RECORDS AND INFORMATION MANAGER-C Barbra E Referring Provider Isaias RECORDS AND INFORMATION MANAGER, RECORDS AND INFORMATION MANAGER-C Barbra E Other Provider Dr. Jorge Schneider Referring Provider Dr. Modesto Fulton Primary Care Provider Isaias RECORDS AND INFORMATION MANAGER, RECORDS AND INFORMATION MANAGER-C Barbra E Attending Provider Isaias RECORDS AND INFORMATION MANAGER, RECORDS AND INFORMATION MANAGER-C Barbra E Referring Provider Isaias RECORDS AND INFORMATION MANAGER, RECORDS AND INFORMATION MANAGER-C Barbra E Other Provider Dr. Aric Polo Attending Provider Dr. Modesto Fulton Primary Care Provider Isaias RECORDS AND INFORMATION MANAGER, RECORDS AND INFORMATION MANAGER-C Barbra E Attending Provider Isaias RECORDS AND INFORMATION MANAGER, RECORDS AND INFORMATION MANAGER-C Barbra E Referring Provider Isaias RECORDS AND INFORMATION MANAGER, RECORDS AND INFORMATION MANAGER-C Barbra E Other Provider Isaias RECORDS AND INFORMATION MANAGER, RECORDS AND INFORMATION MANAGER-C Barbra E Attending Provider Isaias RECORDS AND INFORMATION MANAGER, RECORDS AND INFORMATION MANAGER-C Barbra E Referring Provider [phone] Isaias RECORDS AND INFORMATION MANAGER, RECORDS AND INFORMATION MANAGER-C Barbra E Other Provider Dr. Jennie Mcintyre Primary Care Provider Dr. Jennie Mcintyre Referring Provider Dr. Jake Johnson Attending Provider Dr. Jennie Mcintyre Primary Care Provider MD Lico Phelan Emergency Provider Dr. Robin Wall Provider Dr. Jorge Schneider Attending Provider Dr. Jorge Schneider Other Provider Friend, Dr. Santos Other Provider Isaias RECORDS AND INFORMATION MANAGER, RECORDS AND INFORMATION MANAGER-C Barbra E Attending Provider Isaias RECORDS AND INFORMATION MANAGER, RECORDS AND INFORMATION MANAGER-C Barbra E Referring Provider [phone] Isaias RECORDS AND INFORMATION MANAGER, RECORDS AND INFORMATION MANAGER-C Barbra E Other Provider Dr. Jennie Mcintyre Referring Provider Isaias RECORDS AND INFORMATION MANAGER, RECORDS AND INFORMATION MANAGER-C Barbra E Attending Provider [phone] Isaias RECORDS AND INFORMATION MANAGER, RECORDS AND INFORMATION MANAGER-C Barbra E Referring Provider Isaias RECORDS AND INFORMATION MANAGER, RECORDS AND INFORMATION MANAGER-C Barbra E Other Provider Dr. Jennie Mcintyre Primary Care Provider Dr. Jennie Mcintyre Primary Care Provider Isaias RECORDS AND INFORMATION MANAGER, RECORDS AND INFORMATION MANAGER-C Barbra E Attending Provider [phone] Isaias RECORDS AND INFORMATION MANAGER, RECORDS AND INFORMATION MANAGER-C Barbra E Referring Provider Isaias RECORDS AND INFORMATION MANAGER, RECORDS AND INFORMATION MANAGER-C Barbra E Other Provider Isaias RECORDS AND INFORMATION MANAGER, RECORDS AND INFORMATION MANAGER-C Barbra E Attending Provider Isaias RECORDS AND INFORMATION MANAGER, RECORDS AND INFORMATION MANAGER-C Barbra E Referring Provider Isaias RECORDS AND INFORMATION MANAGER, RECORDS AND INFORMATION MANAGER-C Barbra E Other Provider Dr. Jennie Mcintyre Primary Care Provider Isaias RECORDS AND INFORMATION MANAGER, RECORDS AND INFORMATION MANAGER-C Barbra E Attending Provider [phone] Isaias RECORDS AND INFORMATION MANAGER, RECORDS AND INFORMATION MANAGER-C Barbra E Referring Provider Isaias RECORDS AND INFORMATION MANAGER, RECORDS AND INFORMATION MANAGER-C Barbra E Other Provider Dr. Jennie Mcintyre Primary Care Provider Isaias RECORDS AND INFORMATION MANAGER, RECORDS AND INFORMATION MANAGER-C Barbra E Attending Provider Isaias RECORDS AND INFORMATION MANAGER, RECORDS AND INFORMATION MANAGER-C Barbra E Referring Provider [phone] Isaias RECORDS AND INFORMATION MANAGER, RECORDS AND INFORMATION MANAGER-C Barbra E Other Provider Dr. Jennie Mcintyre Primary Care Provider Isaias RECORDS AND INFORMATION MANAGER, RECORDS AND INFORMATION MANAGER-C Barbra E Attending Provider [phone] Isaias RECORDS AND INFORMATION MANAGER, RECORDS AND INFORMATION MANAGER-C Barbra E Referring Provider Isaias RECORDS AND INFORMATION MANAGER, RECORDS AND INFORMATION MANAGER-C Barbra E Other Provider Dr. Jnenie Mcintyre Primary Care Provider Isaias RECORDS AND INFORMATION MANAGER, RECORDS AND INFORMATION MANAGER-C Barbra E Attending Provider Isaias RECORDS AND INFORMATION MANAGER, RECORDS AND INFORMATION MANAGER-C Barbra E Referring Provider [phone] Isaias RECORDS AND INFORMATION MANAGER, RECORDS AND INFORMATION MANAGER-C Barbra E Other Provider Dr. Jennie Mcintyre Primary Care Provider Isaias RECORDS AND INFORMATION MANAGER, RECORDS AND INFORMATION MANAGER-C Barbra E Attending Provider [phone] Isaias RECORDS AND INFORMATION MANAGER, RECORDS AND INFORMATION MANAGER-C Barbra E Referring Provider Isaias RECORDS AND INFORMATION MANAGER, RECORDS AND INFORMATION MANAGER-C Barbra E Other Provider Dr. Jennie Mcintyre Primary Care Provider Isaias RECORDS AND INFORMATION MANAGER, RECORDS AND INFORMATION MANAGER-C Barbra E Attending Provider [phone] Isaias RECORDS AND INFORMATION MANAGER, RECORDS AND INFORMATION MANAGER-C Barbra E Referring Provider Isaias RECORDS AND INFORMATION MANAGER, RECORDS AND INFORMATION MANAGER-C Barbra E Other Provider Dr. Jennie Mcintyre Primary Care Provider Isaias RECORDS AND INFORMATION MANAGER, RECORDS AND INFORMATION MANAGER-C Barbra E Attending Provider [phone] Isaias RECORDS AND INFORMATION MANAGER, RECORDS AND INFORMATION MANAGER-C Barbra E Referring Provider Isaias RECORDS AND INFORMATION MANAGER, RECORDS AND INFORMATION MANAGER-C Barbra E Other Provider Dr. Jennie Mcintyre Primary Care Provider Dr. Jennie Mcintyre Referring Provider Dr. Jake Johnson Attending Provider Isaias RECORDS AND INFORMATION MANAGER, RECORDS AND INFORMATION MANAGER-C Barbra E Attending Provider Isaias RECORDS AND INFORMATION MANAGER, RECORDS AND INFORMATION MANAGER-C Barbra E Referring Provider Isaias RECORDS AND INFORMATION MANAGER, RECORDS AND INFORMATION MANAGER-C Barbra E Other Provider Dr. Jennie Mcintyre Primary Care Provider Isaias RECORDS AND INFORMATION MANAGER, RECORDS AND INFORMATION MANAGER-C Barbra E Attending Provider Isaias RECORDS AND INFORMATION MANAGER, RECORDS AND INFORMATION MANAGER-C Barbra E Referring Provider [phone] Isaias RECORDS AND INFORMATION MANAGER, RECORDS AND INFORMATION MANAGER-C Barbra E Other Provider Dr. Jennie Mcintyre Primary Care Provider Isaias RECORDS AND INFORMATION MANAGER, RECORDS AND INFORMATION MANAGER-C Barbra E Attending Provider Isaias RECORDS AND INFORMATION MANAGER, RECORDS AND INFORMATION MANAGER-C Barbra E Referring Provider Isaias RECORDS AND INFORMATION MANAGER, RECORDS AND INFORMATION MANAGER-C Barbra E Other Provider Dr. Jennie Mcintyre Primary Care Provider Isaias RECORDS AND INFORMATION MANAGER, RECORDS AND INFORMATION MANAGER-C Barbra E Attending Provider [phone] Isaias RECORDS AND INFORMATION MANAGER, RECORDS AND INFORMATION MANAGER-C Barbra E Referring Provider [phone] Isaias RECORDS AND INFORMATION MANAGER, RECORDS AND INFORMATION MANAGER-C Barbra E Other Provider Dr. Jennie Mcintyre Primary Care Provider Dr. Brice Maciel Attending Provider Dr. Brice Maciel Referring Provider Isaias RECORDS AND INFORMATION MANAGER, RECORDS AND INFORMATION MANAGER-C Barbra E Attending Provider [phone] Isaias RECORDS AND INFORMATION MANAGER, RECORDS AND INFORMATION MANAGER-C Barbra E Referring Provider [phone] Isaias RECORDS AND INFORMATION MANAGER, RECORDS AND INFORMATION MANAGER-C Barbra E Other Provider Dr. Jennie Mcintyre Primary Care Provider Miguelina JOHNS, Dr. Schneider Primary Care Provider Miguelina JOHNS, Dr. Schneider Referring Provider Isaias RECORDS AND INFORMATION MANAGER-C, Barbra E Attending Provider Isaias RECORDS AND INFORMATION MANAGER-C, Barbra E Other Provider Isaias RECORDS AND INFORMATION MANAGER-C, Barbra E Referring Provider Lorene JOHNS, Dr. Yomi Yarbrough Attending Provider Lorene JOHNS, Dr. Yomi Yarbrough Referring Provider [phone] Miguelina JOHNS, Dr. Schneider Primary Care Provider Miguelina JOHNS, Dr. Schneider Referring Provider Isaias RECORDS AND INFORMATION MANAGER-C, Barbra E Attending Provider Isaias RECORDS AND INFORMATION MANAGER-C, Barbra E Referring Provider Isaias RECORDS AND INFORMATION MANAGER-C, Barbra E Other Provider Cedric JOHNS, Dr. Oscar Camargo Other Provider Cedric JOHNS, Dr. Oscar Camargo Attending Provider Miguelina JOHNS, Dr. Schneider Primary Care Provider Miguelina JOHNS, Dr. Schneider Referring Provider Isaias RECORDS AND INFORMATION MANAGER-C, Barbra E Attending Provider Isaias RECORDS AND INFORMATION MANAGER-C, Barbra E Referring Provider Isaias RECORDS AND INFORMATION MANAGER-C, Barbra E Other Provider Miguelina JOHNS, Dr. Schneider Primary Care Provider Isaias RECORDS AND INFORMATION MANAGER-C, Barbra E Attending Provider Isaias RECORDS AND INFORMATION MANAGER-C, Barbra E Referring Provider Miguelina JOHNS, Dr. Schneider Referring Provider Karen JOHNS, Dr. Ferguson Attending Provider Jennie Mcintyre Primary Care Unavailable Oscar Steele Attending Unavailable Jennie Mcintyre Referring Unavailable Jennie Mcintyre Primary Care Unavailable Oscar Steele Attending Unavailable Jennie Mcintyre Referring Unavailable Jennie Mcintyre Primary Care Unavailable Yomi Rose Attending Unavailable Yomi Rose Referring Unavailable Jennie Mcintyre Primary Care Unavailable Oscar Steele Attending Unavailable Jennie Mcintyre Referring Unavailable Jennie Mcintyre Referring Unavailable Jennie Mcintyre Primary Care Unavailable Isaias RECORDS AND INFORMATION MANAGER, Barbra E Attending Unavailabl e Jennie Mcintyre Primary Care Unavailable Oscar Steele Consulting Unavailable Isaias RECORDS AND INFORMATION MANAGER, Barbra E Referring Unavailabl e Isaias RECORDS AND INFORMATION MANAGER, Barbra E Attending Unavailabl e Jennie Mcintyre Primary Care Unavailable Isaias RECORDS AND INFORMATION MANAGER, Barbra E Referring Unavailabl e Isaias RECORDS AND INFORMATION MANAGER, Barbra E Consulting Unavailabl e Isaias RECORDS AND INFORMATION MANAGER, Barbra E Attending Unavailabl e Jennie Mcintyre Primary Care Unavailable Isaias RECORDS AND INFORMATION MANAGER, Barbra E Referring Unavailabl e Isaias RECORDS AND INFORMATION MANAGER, Barbra E Consulting Unavailabl e Isaias RECORDS AND INFORMATION MANAGER, Barbra E Attending Unavailabl e Jennie Mcintyre Primary Care Unavailable Isaias RECORDS AND INFORMATION MANAGER, Barbra E Attending Unavailabl e Isaias RECORDS AND INFORMATION MANAGER, Barbra E Referring Unavailabl e Isaias RECORDS AND INFORMATION MANAGER, Barbra E Consulting Unavailabl e Jennie Mcintyre Primary Care Unavailable Jennie Mcintyre Referring Unavailable Isaias RECORDS AND INFORMATION MANAGER, Barbra E Attending Unavailabl e Isaias RECORDS AND INFORMATION MANAGER, Barbra E Consulting Unavailabl e Jennie Mcintyre Primary Care Unavailable Jennie Mcintyre Referring Unavailable Isaias RECORDS AND INFORMATION MANAGER, Barbra E Attending UnavailJennie Ledezma Primary Care Unavailable Jennie Mcintyre Referring Unavailable Isaias VASQUEZ, Barbra Rizzo Attending UnavailJennie Ledezma Referring Unavailable Jennie Mcintyre Primary Care Unavailable Oscar Steele Attending Unavailable ZAYNAB BARTLETT MD Primary Care UnavailZAYNAB Mandujano MD Attending UnavailZAYNAB Mandujano MD Admitting UnavailLIZETH Mitchell DO Primary Care Unavailable LIZETH DELACRUZ DO Attending Unavailable LIZETH DELACRUZ DO Admitting Unavailable JENNIE MCINTYRE MD Consulting Unavailable JENNIE MCINTYRE MD Referring Unavailable PROVIDER, UNKNOWN Consulting Unavailable PROVIDER, UNKNOWN Consulting Unavailable ILANA CARDOSO DO Primary Care Unavailable ILANA CARDOSO DO Attending Unavailable JENNIE MCINTYRE MD Consulting Unavailable ILANA CARDOSO DO Admitting Unavailable JENNIE MCINTYRE MD Referring Unavailable PROVIDER, UNKNOWN Consulting Unavailable PROVIDER, UNKNOWN Consulting Unavailable JENNIE MCINTYRE MD Admitting Unavailable JENNIE MCINTYRE MD Primary Care Unavailable JENNIE MCINTYRE MD Consulting Unavailable JENNIE MCINTYRE MD Attending Unavailable PROVIDER, UNKNOWN Consulting Unavailable PROVIDER, UNKNOWN Consulting Unavailable JENNIE MCINTYRE MD Admitting Unavailable JENNIE MCINTYRE MD Primary Care Unavailable JENNIE MCINTYRE MD Attending Unavailable JENNIE MCINTYRE MD Primary Care Unavailable JENNIE MCINTYRE MD Attending Unavailable JENNIE MCINTYRE MD Consulting Unavailable JENNIE MCINTYRE MD Admitting Unavailable PROVIDER, UNKNOWN Consulting Unavailable PROVIDER, UNKNOWN Consulting Unavailable JENNIE MCINTYRE MD Admitting Unavailable JENNIE MCINTYRE MD Primary Care Unavailable JENNIE MCINTYRE MD Consulting Unavailable JENNIE MCINTYRE MD Attending Unavailable PROVIDER, UNKNOWN Consulting Unavailable PROVIDER, UNKNOWN Consulting Unavailable Juan ROSE Primary Care Unavailable Juan ROSE Attending Unavailable JENNIE MCINTYRE MD Consulting Unavailable Juan ROSE Admitting Unavailable PROVIDER, UNKNOWN Consulting Unavailable PROVIDER, UNKNOWN Consulting Unavailable Allergies Allergy Classification Reported Allergen(s) Allergy Type Date of Onset Reaction(s) Facility (20 sources) predniSONE Drug Allergy 2 atrial fibrillation [facility] (1 source) predniSONE Drug Allergy 5 [facility] Repository Medications Current Medications Medication Drug Class(es) Dates Sig (Normalized) Sig (Original) amiodarone hydrochloride 200 mg oral tablet (20 sources) Antiarrhythmic Start: 12-12-2021 take 1 tablet by mouth once daily Amiodarone 200 mg tablet Active 200 mg PO DAILY@1400 December 12, 2021 10:18am HEART Start: 05-14-2021 End: 12-12-2021 take 2 tablets by mouth once daily Amiodarone 200 mg tablet Discontinued 400 mg PO DAILY@0800 October 07, 2021 3:16pm December 12, 2021 10:19am HEART Start: 05-14-2021 End: 12-12-2021 take 400 mg by mouth once daily Amiodarone Discontinue d 400 MG PO DAILY@0800 October 07, 2021 2:16pm December 12, 2021 9:19am atorvastatin 40 mg oral tablet (20 sources) HMG-CoA Reductase Inhibitor Start: 01-20-2022 take 1 tablet by mouth at bedtime Atorvastatin 40 mg tablet Active 40 mg PO AT BEDTIME January 20, 2022 12:00am cholesterol Start: 05-08-2021 End: 07-20-2021 take 1 tablet by mouth once daily Atorvastatin 40 mg tablet Discontinued 40 mg PO DAILY May 08, 2021 12:00am July 20, 2021 8:14am Cholestrol cephalexin 500 mg oral capsule (3 sources) Cephalosporin Antibacterial Start: 10-16-2022 take 500 mg by mouth every six hours Cephalexin Active 500 MG PO EVERY 6 HOURS 40 October 16, 2022 12:00am gabapentin 100 mg oral capsule (20 sources) Anti-epileptic Agent Start: 12-12-2021 Gabapenti n 100 mg capsule Active 100 mg PO TWICE A DAY December 12, 2021 1:00am ONE DOSE DAILY AND 1 PRN IN EVENING Start: 12-12-2021 take 100 mg by mouth twice daily Gabapentin Active 100 MG PO TWICE A DAY December 12, 2021 12:00am Start: 10-07-2021 End: 10-12-2021 take 1 tablet by mouth once daily Gabapentin 100 mg Tablet Discontinued 100 mg PO DAILY October 07, 2021 1:00am October 12, 2021 12:02pm PAIN Start: 05-08-2021 End: 07-20-2021 take 1 capsule by mouth three times daily Gabapentin 300 mg capsule Discontinued 300 mg PO THREE TIMES A DAY May 08, 2021 12:00am July 20, 2021 8:09am Neuropathy lactobacillus acidophilus [id number] unt oral capsule (20 sources) Start: 01-19-2022 take 10 capsules by mouth once daily Lactobacillus Acidophilus (Probiotic) 10 billion cell Capsule Active 19694 NMA PO DAILY@1400 January 19, 2022 12:00am supplement linezolid 600 mg oral tablet (20 sources) Oxazolidinone Antibacterial Start: 04-14-2025 take 1 tablet by mouth every twelve hours Linezolid 600 mg tablet Active 600 mg PO Q12H 20 0 April 14, 2025 12:00am Wound infection Start: 11-10-2024 End: 11-20-2024 take 1 tablet by mouth every twelve hours Linezolid 600 mg tablet Discontinued 600 mg PO Q12H 20 10 0 November 10, 2024 1:00am November 19, 2024 1:00am November 20, 2024 1:19am Start: 05-19-2021 End: 07-20-2021 take 1 tablet by mouth every twelve hours Linezolid (Zyvox) 600 mg tablet Discontinued 600 mg PO Q12H May 19, 2021 6:16pm July 20, 2021 8:09am Antibiotic losartan potassium 100 mg oral tablet (20 sources) Angiotensin 2 Receptor Alejandra Start: 10-07-2021 Losartan Active 50 MG PO DAILY October 07, 2021 2:24pm family only gives half a tablet if SBP Start: 07-20-2021 End: 10-07-2021 Losartan 100 mg tablet Activ e 50 mg PO DAILY October 07, 2021 3:24pm HEART family only gives half a tablet if SBP 24 hr metoprolol succinate 50 mg extended release oral tablet (20 sources) beta-Adrenergic Alejandra Start: 12-12-2021 take 2 tablets by mouth once daily Metoprolol Succinate 50 mg tablet extended release 24 hr Active 25 mg PO DAILY December 12, 2021 10:16am BP Start: 12-12-2021 take 25 mg by mouth once daily Metoprolol Succinate Active 25 MG PO DAILY December 12, 2021 9:16am Start: 12-12-2021 take 50 mg by mouth twice patel y Metoprolol Succinate Active 50 MG PO TWICE A DAY December 12, 2021 9:16am Start: 05-08-2021 End: 12-12-2021 take 1 tablet by mouth every six hours Metoprolol Succinate 50 mg tablet extended release 24 hr Discontinued 50 mg PO EVERY 6 HOURS 120 30 0 July 20, 2021 8:13am December 12, 2021 10:19am BP MINGXIA RED (4 sources) Start: 12-09-2024 take 1 [tsp_us] by mouth once daily MINGXIA RED Active 1 tsp PO DAILY December 09, 2024 1:00am nystatin [id number] unt/ml topical cream (3 sources) Polyene Antifungal Start: 01-20-2025 Nystatin 10 0,000 unit/gram cream Active 1 NMA TOPICAL TWICE A DAY 30 10 2 January 20, 2025 12:00am sennosides, senior care 8.6 mg oral capsule (20 sources) Start: 12-09-2024 take 2 capsules by mouth at bedtime Sennosides (Senna) 8.6 mg capsule Active 17.2 mg PO AT BEDTIME December 09, 2024 1:00am Start: 05-08-2021 End: 06-08-2021 take 1 capsule by mouth twice daily Sennosides (Senna) 8.6 mg capsule Discontinued 8.6 mg PO TWICE A DAY May 08, 2021 12:00am June 08, 2021 2:34pm Constipation sulfamethoxazole 800 mg / trimethoprim 160 mg oral tablet (5 sources) Dihydrofolate Reductase Inhibitor Antibacterial, Sulfonamide Antimicrobial Start: 04-10-2025 Sulfamethoxazole-Trimethopri m (Bactrim Ds) 800-160 mg tablet Active 1 {tbl} PO Q12H 20 0 April 10, 2025 12:00am Pressure Ulcer Start: 10-16-2022 take 1 tablet by arden th twice daily Sulfamethoxazole-Trimethoprim Active 1 T ABLET PO TWICE A DAY October 16, 2022 12:00am warfarin sodium 2 mg oral tablet (4 sources) Vitamin K Antagonist Start: 12-09-2024 take 1 tablet by mouth once daily Warfarin 2 mg tablet Active 2 mg PO DAILY December 09, 2024 1:00am Completed/Discontinued Medications Medication Drug Class(es) Dates Sig (Normalized) Sig (Original) acetaminophen 500 mg oral tablet (20 sources) Start: 07-20-2021 End: 12-12-2021 take 1000 mg by mouth every six hours as needed Acetaminophen Discontinued 1000 MG PO EVERY 6 HOURS NEEDED 0 July 19, 2021 11:00pm December 12, 2021 9:19am Start: 05-08-2021 End: 12-12-2021 Acetaminophen 500 mg Tablet Discontinued 1000 mg PO 2130 0 0 July 20, 2021 12:00am August 07, 2021 11:10am amoxicillin 875 mg / clavulanate 125 mg oral tablet (20 sources) Penicillin-class Antibacterial Start: 08-01-2023 End: 08-15-2023 Amoxicillin-Pot Clavulanate 875-125 mg tablet Discontinued 1 {tbl} PO Q12H 28 14 0 August 01, 2023 12:00am August 14, 2023 12:00am August 15, 2023 12:04am Start: 08-01-2023 End: 08-15-2023 take 1 tablet by mouth every twelve hours Amoxicillin-Pot Clavulanate Discontinued 1 TABLET PO Q12H 28 14 July 31, 2023 11:00pm August 14, 2023 11:04pm Start: 03-28-2023 End: 07-29-2023 Amoxicillin-Pot Clavulanate 875-125 mg tablet Discontinued 1 {tbl} PO TWICE A DAY 28 14 March 28, 2023 12:00am July 29, 2023 2:14pm Start: 03-28-2023 End: 07-29-2023 take 1 tablet by mouth twice daily Amoxicillin-Pot Clavulanate Discontinued 1 TABLET PO TWICE A DAY 28 March 27, 2023 11:00pm July 29, 2023 1:14pm Start: 09-25-2021 End: 10-12-2021 Amoxicillin-Pot Clavulanate (Augmentin) 875-125 mg tablet Discontinued 1 {tbl} PO Q12H October 07, 2021 3:16pm October 12, 2021 12:01pm INFECTION apixaban 5 mg oral tablet (20 sources) Factor Xa Inhibitor Start: 05-08-2021 End: 12-09-2024 take 1 tablet by mouth twice daily Apixaban (Eliquis) 5 mg tablet Discontinued 5 mg PO TWICE A DAY 60 30 0 July 20, 2021 8:13am December 09, 2024 10:01am Blood thinner Fvkbp-Nduc-Uxdnm -Bsdmyp-Se-Vfi (Shaan (With Collagen)) 7-7-1.5 gram Powder In Packet (20 sources) Start: 05-19-2021 End: 05-19-2021 Jwbuq-Pqar-Ewlqj-Col lag-Mv-Min (Shaan (With Collagen)) 7-7-1.5 gram Powder In Packet Discontinued 1 PACKET PO TWICE DAILY WITH MEALS 0 May 19, 2021 9:08am May 19, 2021 6:16pm Start: 05-19-2021 End: 05-19-2021 Ntsfk-Asly-Jwzbg-Collag-Mv-M in (Shaan (With Collagen)) 7-7-1.5 gram Powder In Packet Discontinued 1 NMA PO TWICE DAILY WITH MEALS 0 May 19, 2021 12:00am May 19, 2021 6:16pm Start: 05-19-2021 End: 05-19-2021 Gjlna-Cjiw-Aljbs-Collag-Mv-M in (Shaan (With Collagen)) 7-7-1.5 gram Powder In Packet Discontinued 1 NMA PO TWICE DAILY WITH MEALS 0 May 19, 2021 12:00am May 19, 2021 6:16pm Start: 05-19-2021 End: 05-19-2021 Xxdos-Gxbq-Jailu-Collag-Mv-M in (Shaan (With Collagen)) 7-7-1.5 gram Powder In Packet Discontinued 1 PACKET PO TWICE DAILY WITH MEALS 0 May 18, 2021 11:00pm May 19, 2021 5:16pm Start: 05-19-2021 End: 05-19-2021 Uizdr-Oxjc-Ocutt-Collag-Mv-M in (Shaan (With Collagen)) 7-7-1.5 gram Powder In Packet Discontinued 1 PACKET PO TWICE DAILY WITH MEALS 0 May 19, 2021 12:00am May 19, 2021 6:16pm Spvnu-Utws-Ulwmp-Collag-Mv-M in (Shaan (With Collagen)) 7-7-1.5 gram powder in packet (20 sources) Start: 05-19-2021 End: 07-20-2021 Ozhrk-Ttix-Svljz-Collag-Mv-M in (Shaan (With Collagen)) 7-7-1.5 gram powder in packet Discontinued 1 NMA PO TWICE DAILY WITH MEALS May 19, 2021 6:16pm July 20, 2021 8:09am Supplement Start: 05-19-2021 End: 07-20-2021 Jpvkk-Manr-Qwssd-Collag-Mv-M in (Shaan (With Collagen)) 7-7-1.5 gram powder in packet Discontinued 1 NMA PO TWICE DAILY WITH MEALS May 19, 2021 6:16pm July 20, 2021 8:09am Start: 05-19-2021 End: 07-20-2021 Kwbpw-Xybr-Zfhpx-Collag-Mv-M in (Shaan (With Collagen)) 7-7-1.5 gram powder in packet Discontinued 1 PACKET PO TWICE DAILY WITH MEALS May 19, 2021 5:16pm July 20, 2021 7:09am Start: 05-19-2021 End: 07-20-2021 Gcjrx-Jmow-Zzxlz-Collag-Mv-M in (Shaan (With Collagen)) 7-7-1.5 gram powder in packet Discontinued 1 PACKET PO TWICE DAILY WITH MEALS May 19, 2021 6:16pm July 20, 2021 8:09am aspirin 81 mg oral tablet (20 sources) Platelet Aggregation Inhibitor, Nonsteroidal Anti-inflammatory Drug Start: 05-14-2021 End: 07-20-2021 take 1 tablet by mouth once daily Aspirin 81 mg Tablet Discontinued 81 mg PO DAILY May 14, 2021 12:00am July 20, 2021 8:09am [facility] baclofen 5 mg oral tablet (20 sources) gamma-Aminobutyric Acid-ergic Agonist Start: 08-28-2021 End: 10-12-2021 take 2 tablets by mouth three times daily Baclofen 5 mg Tablet Discontinued 10 mg PO THREE TIMES A DAY August 28, 2021 1:00am October 12, 2021 12:01pm SPASMS Start: 08-28-2021 End: 10-12-2021 take 10 mg by mouth three times daily Baclofen Discontinued 10 MG PO THREE TIMES A DAY August 28, 2021 12:00am October 12, 2021 11:01am bisacodyl 10 mg rectal suppository (20 sources) Stimulant Laxative Start: 05-08-2021 End: 06-08-2021 Bisacodyl (Dulcolax (Bisacodyl)) 10 mg suppository Discontinued 10 mg RC DAILY as needed for Constipation May 08, 2021 12:00am June 08, 2021 2:34pm ciprofloxacin 500 mg oral tablet (14 sources) Quinolone Antimicrobial Start: 07-29-2023 End: 11-04-2024 take 1 tablet by mouth every twelve hours Ciprofloxacin Hcl (Cipro) 500 mg tablet Discontinued 500 mg PO Q12H 14 7 0 August 01, 2023 9:17am November 04, 2024 2:08pm docusate sodium 50 mg / sennosides, senior care 8.6 mg oral capsule (15 sources) Start: 01-06-2023 End: 11-04-2024 Sennosides-Docusat e Sodium (Senna Plus) 8.6-50 mg Capsule Discontinued 2 NMA PO DAILY NEEDED as needed for Constipation January 06, 2023 12:00am November 04, 2024 2:08pm doxycycline monohydrate 100 mg oral tablet (20 sources) Tetracycline-class Drug Start: 09-25-2021 End: 10-12-2021 take 1 tablet by mouth twice daily Doxycycline Monohydrate 100 mg tablet Discontinued 100 mg PO TWICE A DAY October 07, 2021 3:21pm October 12, 2021 12:01pm INFECTION fluconazole 150 mg oral tablet (20 sources) Azole Antifungal Start: 08-21-2021 End: 10-07-2021 take 1 tablet by mouth once daily Fluconazole (Diflucan) 150 mg tablet Discontinued 150 mg PO DAILY 7 7 0 August 21, 2021 12:00am October 07, 2021 3:23pm Heparin, Porcine (Pf) (20 sources) Unfractionated Heparin, Anti-coagulant Start: 06-08-2021 End: 07-20-2021 Heparin, Porcine (Pf) Discontinued 50 UNIT IV DIRECTED 60 June 08, 2021 2:35pm July 20, 2021 8:09am Start: 06-08-2021 End: 07-20-2021 Heparin, Porcine (Pf) 10 uni t/mL Syringe Discontinued 50 U IV DIRECTED as needed for PICC Line Heparin Flush 60 0 June 08, 2021 12:00am July 20, 2021 8:09am Start: 06-08-2021 End: 07-20-2021 Heparin, Porcine (Pf) 10 uni t/mL Syringe Discontinued 50 U IV DIRECTED as needed for PICC Line Heparin Flush 60 June 08, 2021 12:00am July 20, 2021 8:09am Start: 06-08-2021 End: 07-20-2021 Heparin, Porcine (Pf) Discon tinued 50 UNIT IV DIRECTED 60 June 07, 2021 11:00pm July 20, 2021 7:09am Start: 06-08-2021 End: 07-20-2021 Heparin, Porcine (Pf) Discon tinued 50 UNIT IV DIRECTED 60 June 08, 2021 12:00am July 20, 2021 8:09am levoFLOXacin 500 mg oral tablet (4 sources) Quinolone Antimicrobial Start: 11-10-2024 End: 11-20-2024 take 1 tablet by mouth every twenty-four hours Levofloxacin 500 mg tablet Discontinued 500 mg PO Q24H 10 10 0 November 10, 2024 1:00am November 19, 2024 1:00am November 20, 2024 1:19am lisinopril 5 mg oral tablet (20 sources) Angiotensin Converting Enzyme Inhibitor Start: 05-08-2021 End: 07-20-2021 take 1 tablet by mouth once daily Lisinopril 5 mg tablet Discontinued 5 mg PO DAILY May 08, 2021 12:00am July 20, 2021 8:09am BP meropenem 1000 mg injection (20 sources) Penem Antibacterial Start: 05-19-2021 End: 07-20-2021 take 1 g intravenously every eight hours Meropenem 1 gram recon soln Discontinued 1 g IV EVERY 8 HOURS May 19, 2021 6:16pm July 20, 2021 8:09am Antibiotic metoclopramide 10 mg oral tablet (20 sources) Dopamine-2 Receptor Antagonist Start: 12-12-2021 End: 11-04-2024 take 5 mg by mouth once daily Metoclopramide Hcl 10 mg tablet Discontinued 5 mg PO DAILY December 12, 2021 10:17am November 04, 2024 2:08pm NAUSEA Start: 12-12-2021 take 5 mg by mouth once daily Metoclopramide Hcl Active 5 MG PO DAILY December 12, 2021 9:17am Start: 12-12-2021 take 5 mg by mouth t hree times daily Metoclopramide Hcl Active 5 MG PO THREE TIMES A DAY December 12, 2021 9:17am Start: 10-07-2021 End: 12-12-2021 take 1 tablet by mouth three times daily Metoclopramide Hcl 10 mg Tablet Discontinued 10 mg PO THREE TIMES A DAY October 07, 2021 1:00am December 12, 2021 10:19am NAUSEA Molnupiravir (15 sources) Start: 01-06-2023 End: 11-04-2024 take 1 capsule by mouth every twelve hours Molnupiravir 200 mg capsule Discontinued 800 mg PO Q12H 40 5 0 January 06, 2023 12:00am November 04, 2024 2:08pm Start: 01-06-2023 End: 11-04-2024 take 1 capsule by mouth every twelve hours Molnupiravir 200 mg capsule Discontinued 800 mg PO Q12H 40 5 January 06, 2023 12:00am November 04, 2024 2:08pm Start: 01-06-2023 take 800 mg by mouth every twelve hours Molnupiravir Active 800 MG PO Q12H 40 5 January 05, 2023 11:00pm Start: 01-06-2023 take 800 mg by mouth every twelve hours Molnupiravir Active 800 MG PO Q12H 40 5 January 06, 2023 12:00am Multivitamin preparation (20 sources) Start: 05-14-2021 End: 12-12-2021 take 1 tablet by mouth once daily Multivitamin Discontinued 1 TABLET PO DAILY May 14, 2021 4:57pm December 12, 2021 10:18am Start: 05-14-2021 End: 12-12-2021 take 1 tablet by mouth once daily Multivitamin Discontinued 1 TABLET PO DAILY May 13, 2021 11:00pm December 12, 2021 9:18am Start: 05-14-2021 End: 12-12-2021 take 1 tablet by mouth once daily Multivitamin Discontinued 1 TABLET PO DAILY May 14, 2021 12:00am December 12, 2021 10:18am Multivitamin Tablet (4 sources) Start: 05-14-2021 End: 12-12-2021 Multivitamin Tablet Disconti nued 1 {tbl} PO DAILY May 14, 2021 12:00am December 12, 2021 10:18am Supplement Start: 05-14-2021 End: 12-12-2021 Multivitamin Tablet Disconti nued 1 {tbl} PO DAILY May 14, 2021 12:00am December 12, 2021 10:18am nystatin 323762 unt/ml / triamcinolone acetonide 1 mg/ml topical cream (20 sources) Polyene Antifungal, Corticosteroid Start: 11-08-2021 End: 12-12-2021 Nystatin-Triamcinolone 100,000-0.1 unit/g-% cream Discontinued 1 NMA TOPICAL TWICE A DAY 30 10 November 08, 2021 1:00am December 12, 2021 10:18am Start: 11-08-2021 End: 12-12-2021 Nystatin-Triamcinolone Disco ntinued 1 APPLIC TOPICAL TWICE A DAY 30 November 08, 2021 12:00am December 12, 2021 9:18am ondansetron 4 mg disintegrating oral tablet (15 sources) Serotonin-3 Receptor Antagonist Start: 01-06-2023 End: 11-04-2024 take 1 tablet by mouth every eight hours as needed for nausea Ondansetron 4 mg tablet,disintegrating Discontinued 4 mg PO EVERY 8 HOURS NEEDED as needed for Nausea 10 January 06, 2023 12:00am November 04, 2024 2:08pm oseltamivir 75 mg oral capsule (15 sources) Neuraminidase Inhibitor Start: 01-06-2023 End: 07-29-2023 take 1 capsule by mouth twice daily Oseltamivir (Tamiflu) 75 mg capsule Discontinued 75 mg PO TWICE A DAY 10 5 0 January 06, 2023 12:00am July 29, 2023 2:14pm polyethylene glycol 3350 46166 mg powder for oral solution (20 sources) Osmotic Laxative Start: 05-08-2021 End: 07-20-2021 Polyethylene Glycol 3350 (Miralax) 17 gram/dose powder Discontinued 17 g PO DAILY as needed for Constipation 0 June 08, 2021 2:42pm July 20, 2021 8:10am prochlorperazine 10 mg oral tablet (20 sources) Phenothiazine Start: 05-14-2021 End: 07-20-2021 take 1 tablet by mouth every six hours as needed for nausea Prochlorperazine Maleate (Compazine) 10 mg Tablet Discontinued 10 mg PO EVERY 6 HOURS as needed for Nausea May 14, 2021 12:00am July 20, 2021 8:11am Sodium Chloride 0.9 % (Flush) (20 sources) Start: 06-08-2021 End: 07-20-2021 Sodium Chloride 0.9 % (Flush) (Bd Posiflush Normal Saline 0.9) Syringe Discontinued 10 - 40 ML IV DIRECTED 300 June 08, 2021 2:35pm July 20, 2021 8:10am Start: 06-08-2021 End: 07-20-2021 Sodium Chloride 0.9 % (Flush ) (Normal Saline Flush) Syringe Discontinued 10 - 40 ML IV DIRECTED 300 June 08, 2021 2:35pm July 20, 2021 8:10am Start: 06-08-2021 End: 07-20-2021 Sodium Chloride 0.9 % (Flush ) (Bd Posiflush Normal Saline 0.9) Syringe Discontinued 10 - 40 mL IV DIRECTED as needed for Open End PICC Flush 300 0 June 08, 2021 12:00am July 20, 2021 8:10am Start: 06-08-2021 End: 07-20-2021 Sodium Chloride 0.9 % (Flush ) (Normal Saline Flush) Syringe Discontinued 10 - 40 mL IV DIRECTED as needed for Port access or dressing change 300 0 June 08, 2021 12:00am July 20, 2021 8:10am Start: 06-08-2021 End: 07-20-2021 Sodium Chloride 0.9 % (Flush ) (Bd Posiflush Normal Saline 0.9) Syringe Discontinued 10 - 40 mL IV DIRECTED as needed for Open End PICC Flush 300 June 08, 2021 12:00am July 20, 2021 8:10am Start: 06-08-2021 End: 07-20-2021 Sodium Chloride 0.9 % (Flush ) (Normal Saline Flush) Syringe Discontinued 10 - 40 mL IV DIRECTED as needed for Port access or dressing change 300 June 08, 2021 12:00am July 20, 2021 8:10am Start: 06-08-2021 End: 07-20-2021 Sodium Chloride 0.9 % (Flush ) (Bd Posiflush Normal Saline 0.9) Syringe Discontinued 10 - 40 ML IV DIRECTED 300 June 07, 2021 11:00pm July 20, 2021 7:10am Start: 06-08-2021 End: 07-20-2021 Sodium Chloride 0.9 % (Flush ) (Normal Saline Flush) Syringe Discontinued 10 - 40 ML IV DIRECTED 300 June 07, 2021 11:00pm July 20, 2021 7:10am Start: 06-08-2021 End: 07-20-2021 Sodium Chloride 0.9 % (Flush ) (Bd Posiflush Normal Saline 0.9) Syringe Discontinued 10 - 40 ML IV DIRECTED 300 June 08, 2021 12:00am July 20, 2021 8:10am Start: 06-08-2021 End: 07-20-2021 Sodium Chloride 0.9 % (Flush ) (Normal Saline Flush) Syringe Discontinued 10 - 40 ML IV DIRECTED 300 June 08, 2021 12:00am July 20, 2021 8:10am vancomycin 25 mg/ml oral solution (20 sources) Glycopeptide Antibacterial Start: 01-22-2022 End: 03-27-2022 Vancomycin (Firvanq) 25 mg/mL Recon Soln Discontinued 125 mg PO EVERY 6 HOURS 240 12 January 22, 2022 12:00am March 27, 2022 2:58pm Start: 01-22-2022 End: 03-27-2022 Vancomycin (Firvanq) 50 mg/m L recon soln Discontinued 125 mg PO EVERY 6 HOURS 120 January 22, 2022 12:00am March 27, 2022 2:58pm Problems Active Problems Problem Classification Problem Date Documented Da te Episodic/Chronic Abdominal pain (4 sources) Abdominal pain; Translations: [Unspecified abdominal pain] Episodic Acute myocardial infarction (12 sources) Myocardial infarction; Translations: [Acute myocardial infarction, unspecified] 02-11-2025 Chronic Comment on above: 2018 Cardiac dysrhythmias (20 sources) Atrial fibrillation with rapid ventricular response; Translations: [Unspecified atrial fibrillation] Onset: 12-21-2024 10-20-2021 Chronic Comment on above: ON MED Chronic ulcer of skin (20 sources) Pressure ulcer of sacral region; Translations: [Pressure ulcer of sacral region, stage 4] Onset: 02-19-2025 Chronic Complication of device; implant or graft (20 sources) Colostomy hemorrhage; Translations: [Colostomy hemorrhage] Chronic Comment on above: This is a 76-year-ol d female who had a significant neurologic event resulting in 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 In May 2021 I performed a did laparoscopic diverting colostomy given patient had developed a large sacral decubitus ulcer. She presents today with her family due to some recent bleeding around the stoma. On inspection today, the mucosa is viable and there appears to be some sloughing of tissue. I suspect there may have been some local trauma during the patient's looser stools that resulted in some hemorrhage, but the bowel appears viable and the stoma is widely patent at the fascia. Not unexpected, the patient's stoma has dipped a little bit more underneath the skin as she has lost further tone to her abdominal wall. At this time, her states that he is still able to obtain a good seal with her ostomy appliance and is not having leaking issues. I have offered that I could consider a stoma revision if this became an issue in the future, but did express reservations about any lasting success. Recommend continued careful cleaning around the mucocutaneous junction of the stoma. Family will let me know if any further issues develop. Coronary atherosclerosis and other heart disease (1 source) Old myocardial infarction; Translations: [Old myocardial infarction] Onset: 01-30-2025 Chronic Disorders of lipid metabolism (1 source) Hyperlipidemia, unspecified; Translations: [Hyperlipidemia, unspecified] Onset: 02-17-2025 Chronic Essential hypertension (12 sources) Hypertensive disorder; Translations: [Essential (primary) hypertension] 02-11-2025 Chronic Comment on above: CONTROLLED WITH MED Fluid and electrolyte disorders (20 sources) Dehydration; Translations: [Dehydration] 06-14-2021 Episodic Gangrene (20 sources) Skin necrosis; Translations: [Gangrene, not elsewhere classified] 10-20-2021 Episodic Genitourinary symptoms and ill-defined conditions (3 sources) Encounter for fitting and adjustment of urinary device; Translations: [Encounter for fitting and adjustment of urinary device] Onset: 01-30-2025 Chronic Genitourinary symptoms and ill-defined conditions (10 sources) Cloudy urine; Translations: [Unspecified abnormal findings in urine] 07-29-2023 Episodic Infective arthritis and osteomyelitis (except that caused by tuberculosis or sexually transmitted disease) (20 sources) Osteomyelitis of pelvic region; Translations: [Osteomyelitis, unspecified] Chronic Influenza (15 sources) Influenza due to Influenza B virus; Translations: [Influenza due to other identified influenza virus with other respiratory manifestations] 01-06-2023 Episodic Intestinal infection (20 sources) Clostridium difficile colitis; Translations: [Enterocolitis due to Clostridium difficile, not specified as recurrent] Episodic Malaise and fatigue (20 sources) Asthenia; Translations: [Other malaise] 07-25-2021 Episodic Nausea and vomiting (20 sources) Nausea; Translations: [Nausea] 06-14-2021 Episodic Non-Hodgkin`s lymphoma (20 sources) B-cell lymphoma (clinical); Translations: [Unspecified B-cell lymphoma, unspecified site] Onset: 02-19-2025 Chronic Comment on above: Diagnosed with DLBC NHL stage IE at [facility] in [place] involving T4-7 intra-spinal canal, S/P decompression on 03/20/2021. Got 1 cycle of R-CHOP on 03/29/2021 complicated by neutropenic fever so considered a poor candidate for further chemotherapy. S/P Radiation therapy to spine from 05/17/2021 to 06/12/2021. Performance status is 4-bedridden with bed sore s/p colostomy. Poor candidate for additional chemotherapy. CHEMO DID NOT WORK/H AD 18 RADIATION [place] 2020 Noninfectious gastroenteritis (4 sources) Colitis; Translations: [Noninfective gastroenteritis and colitis, unspecified] Episodic Nonspecific chest pain (20 sources) Chest pain; Translations: [Chest pain, unspecified] 06-14-2021 Episodic Other aftercare (12 sources) Long-term current use of anticoagulant; Translations: [longterm (current) use of anticoagulants] 02-11-2025 Episodic Other and unspecified benign neoplasm (20 sources) Acoustic neuroma of left vestibular nerve; Translations: [Benign neoplasm of cranial nerves] 02-22-2022 Chronic Other and unspecified benign neoplasm (18 sources) Benign neoplasm of cranial nerves; Translations: [Benign neoplasm of cranial nerves] Chronic Other circulatory disease (20 sources) Low blood pressure; Translations: [Hypotension, unspecified] 10-20-2021 Episodic Other gastrointestinal disorders (2 sources) Diarrhea; Translations: [Diarrhea, unspecified] Episodic Other gastrointestinal disorders (2 sources) Diarrhea, unspecified; Translations: [Diarrhea] Episodic Other hereditary and degenerative nervous system conditions (20 sources) Impaired cognition; Translations: [Mild cognitive impairment, so stated] 12-12-2021 Chronic Other hereditary and degenerative nervous system conditions (13 sources) Mild cognitive impairment, so stated; Translations: [Mild cognitive impairment, so stated] Chronic Other nervous system disorders (20 sources) Disorder of brain; Translations: [Encephalopathy, unspecified] 10-20-2021 Chronic Other nervous system disorders (20 sources) Metabolic encephalopathy; Translations: [Metabolic encephalopathy] 10-20-2021 Chronic Other nervous system disorders (3 sources) Encephalopathy, unspecified; Translations: [Encephalopathy, unspecified] Chronic Other nervous system disorders (3 sources) Metabolic encephalopathy; Translations: [Metabolic encephalopathy] Chronic Other nervous system disorders (20 sources) Finding of meninges; Translations: [Mass in epidural space] 10-20-2021 Episodic Other screening for suspected conditions (not mental disorders or infectious disease) (20 sources) Magnetic resonance imaging of brain abnormal; Translations: [Other abnormal findings on diagnostic imaging of central nervous system] Episodic Paralysis (20 sources) Paraplegia; Translations: [Paraplegia, unspecified] Onset: 02-19-2025 Chronic Residual codes; unclassified (20 sources) History of sigmoid colectomy; Translations: [Acquired absence of other specified parts of digestive tract] 07-25-2021 Episodic Comment on above: Patient recovering w ell. Having some ostomy seal issues which wound and ostomy are working through. Patient now tolerating a regular diet. Continue Steri's to surgical sites for another week Residual codes; unclassified (20 sources) Urinary catheter in situ; Translations: [Presence of other specified devices] 07-29-2023 Episodic Residual codes; unclassified (12 sources) Non-smoker; Translations: [Other specified health status] 02-11-2025 Episodic Septicemia (except in labor) (20 sources) Sepsis; Translations: [Sepsis, unspecified organism] 05-22-2021 Episodic Skin and subcutaneous tissue infections (18 sources) Cellulitis of left hip; Translations: [Cellulitis of left lower limb] 10-24-2022 Episodic Spondylosis; intervertebral disc disorders; other back problems (20 sources) Thoracic myelopathy; Translations: [Other spondylosis with myelopathy, thoracic region] Chronic Unclassified (1 source) Elevation of levels of liver transaminase levels; Translations: [Elevation of levels of liver transaminase levels] Onset: 08-10-2025 Viral infection (15 sources) Disease caused by 2019-nCoV; Translations: [COVID-19] 01-06-2023 Episodic Past or Other Problems Problem Classification Problem Date Documented Da te Episodic/Chronic Calculus of urinary tract (1 source) Calculus in bladder; Translations: [Calculus in bladder] Onset: 12-28-2024 Episodic Coronary atherosclerosis and other heart disease (1 source) Presence of coronary angioplasty implant and graft; Translations: [Presence of coronary angioplasty implant and graft] Onset: 01-30-2025 Episodic Residual codes; unclassified (8 sources) Presence of other specified devices; Translations: [Other postprocedural status] Onset: 02-19-2025 08-20-2023 Episodic Residual codes; unclassified (1 source) Acquired absence of other specified parts of digestive tract; Translations: [Acquired absence of other specified parts of digestive tract] Onset: 01-30-2025 Episodic Urinary tract infections (19 sources) Urinary tract infectious disease; Translations: [Urinary tract infection, site not specified] Onset: 01-30-2025 10-24-2022 Episodic Results Test Name Value Interpretation Reference Range Facility Wound Ctr History AND Physic nelda 05-19-2025 Wound Ctr History & Physical [facility] [address] [place] [address] H P Exam - Wound Care 05/19/252010 MR#: [id number] Acct: [id number] Name: CHRISTOPHER CORONEL Rep #: [id number] : 1945 79 From: Oscar Steele MD PCP: Dr. Jennie Mcintyre MD Status:REG RCR Location: History of Present Illness Date of Service: 05/18/25 Chief Complaint: Left ischial pressure ulceration, stage III History of Wound: This is an 79-year-old female, formerly cared for at the Wound Center by a provider who has transferred to another facility. 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 She had progressive paraplegia. She went to TCU for acute rehab for this progressive paraplegia. During that time she had worsening sacral pressure sore with skin necrosis. Surgery 05/15/21 - Excision necrotic sacral pressure sore, Stage IV, with partial ostectomy for osteomyelitis. Pathology from surgery on 05/15/21 of bone showed acute osteomyelitis. Operative culture, soft tissue, from 05/15/21 was positive for Escherichia coli, Klebsiella, Vanc. Resist. E. gallinarum, Vanc. Resist. E. faecalis. Operative culture, bone, from 05/15/21 was positive for Escherichia coli, Vanc. Resist. E. faecalis, Vanc. Resist. E. gallinarum. She was treated with Meropenem and Vancomycin. Linezolid was started after Vancomycin was stopped. Radiation from 05/17/21 - 06/12/21 18 treatments to T4-T7 area including paraspinal region. 06/06/21- Laparoscopic sigmoid colectomy with creation of end colostomy for fecal diversion. She healed out her ulcers November 2023. She states that she was having issues with her urinary catheter leaking which then caused skin breakdown on her left ischial area a little before Antoine. They have been using dressing supplies that they had left over ([employer], selena, aquacel-ag). They thought there might be some improvement in the ulcer, but now that it has been almost a month, they came back for further evaluation and treatment. Wound culture from 11/04/24 positive for Staphylococcus haemolyticus, Staphylococcus epidermidis, Escherichia coli, Corynebacterium striatum, and Cutibacterium acnes and she was treated with Levaquin and Linezolid. The patient denies a history of congestive heart failure, cerebrovascular accident, diabetes mellitus, thyroid disease, pulmonary disease, and renal disease. She has suffered a myocardial infarction in the past, and has had coronary revascularization performed in 2018. She is on long- term systemic anticoagulation with warfarin. [facility] Medical History MRSA (methicillin resistant Staphylococcus aureus) infection Pressure ulcer of ischium, stage 3 Chronic anticoagulation History of echocardiogram Wears glasses Wears dentures Uses wheelchair Indwelling urethral catheter present Anemia Non-smoker History of edema Cardiology follow-up encounter Pressure ulcer COVID-19 Decubitus ulcer of left ischium, stage 2 Pressure ulcer of right ischium MCI (mild cognitive impairment) Adrenal disorder Decubitus ulcer of left ischium, stage 4 Chronic indwelling Gutierrez catheter Hypertension Pressure sore UTI (urinary tract infection) Adynamic ileus Abdominal pain History of radiation therapy Neuropathic pain Diffuse large B cell lymphoma Paraplegia Debility Pressure ulcer of sacral region, stage 4 Osteomyelitis of pelvis Myocardial infarct Afib Pressure ulcer of sacral region, unstageable Diffuse large B-cell lymphoma Paraplegia Home Medications ???Medication ???Instructions ???Recorded ???Last Taken ???Type losartan 100 mg tablet 50 mg PO DAILY HEART 10/07/21/03/14 History amiodarone 200 mg tablet 200 mg PO DAILY@1400 HEART 2 Unknown History gabapentin 100 mg capsule 100 mg PO BID 12/12/21 12/23/24 Hi story metoprolol succinate 50 mg 25 mg PO DAILY BP 12/12/21 5 History tablet,extended release 24 hr Lactobacillus acidophilus 10 10,000 mmu cells PO DAILY@1400 11/11 Unknown History billion cell capsule (Probiotic) supplement atorvastatin 40 mg tablet 40 mg PO QHS cholesterol 01/20/22 Unknown History MINGXIA RED 1 tsp PO DAILY 12/09/24 Unknown Hi story sennosides 8.6 mg capsule (senna) 17.2 mg PO QHS 12/09/24 Unknown H istory warfarin 2 mg tablet 2 mg PO DAILY 12/09/24 12/17/24 Hi story nystatin 100,000 unit/gram topical 1 applic topical BID 10 days #30 01/20/25 Unknown Rx cream grams sulfamethoxazole 800 1 tab PO Q12H Pressure Ulcer #20 0 04/10/25 Unknown Rx mg-trimethoprim 160 mg tablet tabs (Bactrim DS) linezolid 600 mg tablet 6 (more content not included)... Normal [facility] URINE CULTURE [CCL]on 2024 Bacteria identified Cx Nom (U) URCUL See Results Below See Below CULTURE, URINE ESCHERICHIA COLI >=100,000 CFU/ml Escherichia coli Morphology 1. CULTURE, URINE ESCHERICHIA COLI >=100,000 CFU/ml Escherichia coli Morphology 2. ORGANISM: ESCHERICHIA COLI ANTIBIOTIC LEANN DILUTN LEANN INTERP Ampicillin >=32 Resistant Cefazolin <=4 Susceptible For uncomplicated urinary tract infections, cefazolin results can be used to pre Ceftriaxone <=1 Susceptible Cefepime <=1 Susceptible Ertapenem <=0.5 Susceptible Meropenem <=0.25 Susceptible Ampicillin/Sulbact 8 Susceptible Piperacillin/Tazobac <=4 Susceptible Gentamicin <=1 Susceptible Tobramycin <=1 Susceptible Trimeth sulfameth <=20 Susceptible Ciprofloxacin <=0.25 Susceptible Nitrofurantoin <=16 Susceptible ORGANISM: ESCHERICHIA COLI ANTIBIOTIC LEANN DILUTN LEANN INTERP Ampicillin >=32 Resistant Cefazolin <=4 Susceptible For uncomplicated urinary tract infections, cefazolin results can be used to pre Ceftriaxone <=1 Susceptible Cefepime <=1 Susceptible Ertapenem <=0.5 Susceptible Meropenem <=0.25 Susceptible Ampicillin/Sulbact 16 Intermediate Piperacillin/Tazobac <=4 Susceptible Gentamicin <=1 Susceptible Tobramycin <=1 Susceptible Trimeth sulfameth >=320 Resistant Ciprofloxacin 0.5 Intermediate Nitrofurantoin <=16 Susceptible This test was developed and its performance characteristics determined by the [facility] ([facility]). It has not been cleared or approved by the FDA. [facility] is regulated under CLIA as qualified to perform high-complexity testing. This test is used for clinical purposes. It should not be regarded as investigational or for research. SOURCE: Urine (Nonspecific) [facility] [address] [place] [address] Keo Munoz III, M.D. [id number] SEND TO IC YES Normal [facility] Comment on above: Performed By: #### 2 [id number] #### [facility],[address] [place] [id number] Bacteria Ur Culton 5 Bacteria identified Cx Nom (U) ORGANISM ID: 1 >=100,000 CFU/ml Escherichia coli Morphology 1. ORGANISM ID: 2 >=100,000 CFU/ml Escherichia coli Morphology 2. ORGANISM ID: 1 (ESCHERICHIA COLI) ------ ANTIBIOTIC INTERPRETATION LEANN STATUS REFERENCE RANGE ------ Ampicillin R >=32 F Susceptible <=8 , Intermediate >8 , Resistant >16 Cefazolin S <=4 F Susceptible 0-16 , Intermediate <0 or >16 , Resistant >16 For uncomplicated urinary tract infections, cefazolin results can be used to predict susceptibility or resistance to cephalexin. Ceftriaxone S <=1 F Susceptible <=1 , Intermediate >1 , Resistant >=4 Cefepime S <=1 F Susceptible <=2 , Susceptible-Dose Dependent >2 , Resistant >=16 Ertapenem S <=0.5 F Susceptible <=0.5 , Intermediate >.5 , Resistant >1 Meropenem S <=0.25 F Susceptible <=1 , Intermediate >1 , Resistant >2 Ampicillin/Sulbact S 8 F Susceptible <=8 , Intermediate >8 , Resistant >16 Piperacillin/Tazobac S <=4 F Susceptible <16 , Susceptible-Dose Dependent >=16 , Resistant >=32 Gentamicin S <=1 F Susceptible <=2 , Intermediate >2 , Resistant >=8 Tobramycin S <=1 F Susceptible <4 , Intermediate >=4 , Resistant >=8 Trimeth sulfameth S <=20 F Susceptible <=40 , Resistant >40 Ciprofloxacin S <=0.25 F Susceptible <0.5 , Intermediate >=.5 , Resistant >=1 Nitrofurantoin S <=16 F Susceptible <=32 , Intermediate >32 , Resistant >64 ORGANISM ID: 2 (ESCHERICHIA COLI) ------ ANTIBIOTIC INTERPRETATION LEANN STATUS REFERENCE RANGE ------ Ampicillin R >=32 F Susceptible <=8 , Intermediate >8 , Resistant >16 Cefazolin S <=4 F Susceptible 0-16 , Intermediate <0 or >16 , Resistant >16 For uncomplicated urinary tract infections, cefazolin results can be used to predict susceptibility or resistance to cephalexin. Ceftriaxone S <=1 F Susceptible <=1 , Intermediate >1 , Resistant >=4 Cefepime S <=1 F Susceptible <=2 , Susceptible-Dose Dependent >2 , Resistant >=16 Ertapenem S <=0.5 F Susceptible <=0.5 , Intermediate >.5 , Resistant >1 Meropenem S <=0.25 F Susceptible <=1 , Intermediate >1 , Resistant >2 Ampicillin/Sulbact I 16 F Susceptible <=8 , Intermediate >8 , Resistant >16 Piperacillin/Tazobac S <=4 F Susceptible <16 , Susceptible-Dose Dependent >=16 , Resistant >=32 Gentamicin S <=1 F Susceptible <=2 , Intermediate >2 , Resistant >=8 Tobramycin S <=1 F Susceptible <4 , Intermediate >=4 , Resistant >=8 Trimeth sulfameth R >=320 F Susceptible <=40 , Resistant >40 Ciprofloxacin I 0.5 F Susceptible <0.5 , Intermediate >=.5 , Resistant >=1 Nitrofurantoin S <=16 F Susceptible <=32 , Intermediate >32 , Resistant >64 Abnormal [facility] Comment on above: Performed By: #### 6 30-4 #### [facility] CLIA [id number] [address] [place] [address] [place] [address] [place] Wound Ctr History AND Physic nelda 05-01-2025 Wound Ctr History & Physical [facility] [address] [place] [address] H P Exam - Wound Care 05/01/25 1722 MR#: [id number] Acct: [id number] Name: CHRISTOPHER CORONEL Rep #: [id number] : 1945 79 From: Oscar Steele MD PCP: Dr. Jennie Mcintyre MD Status:REG RCR Location: History of Present Illness Date of Service: 04/27/25 Chief Complaint: Left ischial pressure ulceration, stage III History of Wound: This is an 79-year-old female, formerly cared for at the Wound Center by a provider who has transferred to another facility. 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 She had progressive paraplegia. She went to TCU for acute rehab for this progressive paraplegia. During that time she had worsening sacral pressure sore with skin necrosis. Surgery 05/15/21 - Excision necrotic sacral pressure sore, Stage IV, with partial ostectomy for osteomyelitis. Pathology from surgery on 05/15/21 of bone showed acute osteomyelitis. Operative culture, soft tissue, from 05/15/21 was positive for Escherichia coli, Klebsiella, Vanc. Resist. E. gallinarum, Vanc. Resist. E. faecalis. Operative culture, bone, from 05/15/21 was positive for Escherichia coli, Vanc. Resist. E. faecalis, Vanc. Resist. E. gallinarum. She was treated with Meropenem and Vancomycin. Linezolid was started after Vancomycin was stopped. Radiation from 05/17/21 - 06/12/21 18 treatments to T4-T7 area including paraspinal region. 06/06/21- Laparoscopic sigmoid colectomy with creation of end colostomy for fecal diversion. She healed out her ulcers November 2023. She states that she was having issues with her urinary catheter leaking which then caused skin breakdown on her left ischial area a little before [place]. They have been using dressing supplies that they had left over (Dakin[employer], selena, aquacel-ag). They thought there might be some improvement in the ulcer, but now that it has been almost a month, they came back for further evaluation and treatment. Wound culture from 11/04/24 positive for Staphylococcus haemolyticus, Staphylococcus epidermidis, Escherichia coli, Corynebacterium striatum, and Cutibacterium acnes and she was treated with Levaquin and Linezolid. The patient denies a history of congestive heart failure, cerebrovascular accident, diabetes mellitus, thyroid disease, pulmonary disease, and renal disease. She has suffered a myocardial infarction in the past, and has had coronary revascularization performed in 2018. She is on long- term systemic anticoagulation with warfarin. [facility] Medical History MRSA (methicillin resistant Staphylococcus aureus) infection Pressure ulcer of ischium, stage 3 Chronic anticoagulation History of echocardiogram Wears glasses Wears dentures Uses wheelchair Indwelling urethral catheter present Anemia Non-smoker History of edema Cardiology follow-up encounter Pressure ulcer COVID-19 Decubitus ulcer of left ischium, stage 2 Pressure ulcer of right ischium MCI (mild cognitive impairment) Adrenal disorder Decubitus ulcer of left ischium, stage 4 Chronic indwelling Gutierrez catheter Hypertension Pressure sore UTI (urinary tract infection) Adynamic ileus Abdominal pain History of radiation therapy Neuropathic pain Diffuse large B cell lymphoma Paraplegia Debility Pressure ulcer of sacral region, stage 4 Osteomyelitis of pelvis Myocardial infarct Afib Pressure ulcer of sacral region, unstageable Diffuse large B-cell lymphoma Paraplegia Home Medications ???Medication ???Instructions ???Recorded ???Last Taken ???Type losartan 100 mg tablet 50 mg PO DAILY HEART 10/07/21/03/14 History amiodarone 200 mg tablet 200 mg PO DAILY@1400 HEART 2 Unknown History gabapentin 100 mg capsule 100 mg PO BID 12/12/21 12/23/24 Hi story metoprolol succinate 50 mg 25 mg PO DAILY BP 12/12/21 03/05/2 5 History tablet,extended release 24 hr Lactobacillus acidophilus 10 10,000 mmu cells PO DAILY@1400 11/11 Unknown History billion cell capsule (Probiotic) supplement atorvastatin 40 mg tablet 40 mg PO QHS cholesterol 01/20/22 Unknown History MINGXIA RED 1 tsp PO DAILY 12/09/24 Unknown Hi story sennosides 8.6 mg capsule (senna) 17.2 mg PO QHS 12/09/24 Unknown H istory warfarin 2 mg tablet 2 mg PO DAILY 12/09/24 12/17/24 Hi story nystatin 100,000 unit/gram topical 1 applic topical BID 10 days #30 01/20/25 Unknown Rx cream grams sulfamethoxazole 800 1 tab PO Q12H Pressure Ulcer #20 0 04/10/25 Unknown Rx mg-trimethoprim 160 mg tablet tabs (Bactrim DS) linezolid 600 mg tablet 6 (more content not included)... Normal [facility] Wound Ctr History AND Physic nelda 04-16-2025 Wound Ctr History & Physical [facility] [address] [place] [address] H P Exam - Wound Care 04/16/25 1038 MR#: [id number] Acct: [id number] Name: CHRISTOPHER CORONEL Rep #: [id number] : 1945 79 From: Oscar Steele MD PCP: Dr. Jennie Mcintyre MD Status:REG R Location: History of Present Illness Date of Service: 04/14/25 Chief Complaint: Left ischial pressure ulceration, stage III History of Wound: This is an 79-year-old female, formerly cared for at the Wound Center by a provider who has transferred to another facility. 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 She had progressive paraplegia. She went to TCU for acute rehab for this progressive paraplegia. During that time she had worsening sacral pressure sore with skin necrosis. Surgery 05/15/21 - Excision necrotic sacral pressure sore, Stage IV, with partial ostectomy for osteomyelitis. Pathology from surgery on 05/15/21 of bone showed acute osteomyelitis. Operative culture, soft tissue, from 05/15/21 was positive for Escherichia coli, Klebsiella, Vanc. Resist. E. gallinarum, Vanc. Resist. E. faecalis. Operative culture, bone, from 05/15/21 was positive for Escherichia coli, Vanc. Resist. E. faecalis, Vanc. Resist. E. gallinarum. She was treated with Meropenem and Vancomycin. Linezolid was started after Vancomycin was stopped. Radiation from 05/17/21 - 06/12/21 18 treatments to T4-T7 area including paraspinal region. 06/06/21- Laparoscopic sigmoid colectomy with creation of end colostomy for fecal diversion. She healed out her ulcers November 2023. She states that she was having issues with her urinary catheter leaking which then caused skin breakdown on her left ischial area a little before [place]. They have been using dressing supplies that they had left over (Dakin[employer], selena, aquacel-ag). They thought there might be some improvement in the ulcer, but now that it has been almost a month, they came back for further evaluation and treatment. Wound culture from 11/04/24 positive for Staphylococcus haemolyticus, Staphylococcus epidermidis, Escherichia coli, Corynebacterium striatum, and Cutibacterium acnes and she was treated with Levaquin and Linezolid. The patient denies a history of congestive heart failure, cerebrovascular accident, diabetes mellitus, thyroid disease, pulmonary disease, and renal disease. She has suffered a myocardial infarction in the past, and has had coronary revascularization performed in 2018. She is on long- term systemic anticoagulation with warfarin. [facility] Medical History MRSA (methicillin resistant Staphylococcus aureus) infection Pressure ulcer of ischium, stage 3 Chronic anticoagulation History of echocardiogram Wears glasses Wears dentures Uses wheelchair Indwelling urethral catheter present Anemia Non-smoker History of edema Cardiology follow-up encounter Pressure ulcer COVID-19 Decubitus ulcer of left ischium, stage 2 Pressure ulcer of right ischium MCI (mild cognitive impairment) Adrenal disorder Decubitus ulcer of left ischium, stage 4 Chronic indwelling Gutierrez catheter Hypertension Pressure sore UTI (urinary tract infection) Adynamic ileus Abdominal pain History of radiation therapy Neuropathic pain Diffuse large B cell lymphoma Paraplegia Debility Pressure ulcer of sacral region, stage 4 Osteomyelitis of pelvis Myocardial infarct Afib Pressure ulcer of sacral region, unstageable Diffuse large B-cell lymphoma Paraplegia Home Medications ???Medication ???Instructions ???Recorded ???Last Taken ???Type losartan 100 mg tablet 50 mg PO DAILY HEART 10/07/21/03/14 History amiodarone 200 mg tablet 200 mg PO DAILY@1400 HEART 2 Unknown History gabapentin 100 mg capsule 100 mg PO BID 12/12/21 12/23/24 Hi story metoprolol succinate 50 mg 25 mg PO DAILY BP 12/12/21 5 History tablet,extended release 24 hr Lactobacillus acidophilus 10 10,000 mmu cells PO DAILY@1400 11/11 Unknown History billion cell capsule (Probiotic) supplement atorvastatin 40 mg tablet 40 mg PO QHS cholesterol 01/20/22 Unknown History MINGXIA RED 1 tsp PO DAILY 12/09/24 Unknown Hi story sennosides 8.6 mg capsule (senna) 17.2 mg PO QHS 12/09/24 Unknown H istory warfarin 2 mg tablet 2 mg PO DAILY 12/09/24 12/17/24 Hi story nystatin 100,000 unit/gram topical 1 applic topical BID 10 days #30 01/20/25 Unknown Rx cream grams sulfamethoxazole 800 1 tab PO Q12H Pressure Ulcer #20 0 04/10/25 Unknown Rx mg-trimethoprim 160 mg tablet tabs (Bactrim DS) linezolid 600 mg tablet 6 (more content not included)... Normal [facility] Culture, Anaerobic Any [facility] josiane 04-15-2025 CUAN List Antibiotics Las t 48 Hours? none List Antibiotics to be Started? none Studies have confirmed that Anaerobic Gram Positive Cocci are routinely SUSCEPTABLE to Penicillin and generally susceptible to Beta-lactams and Beta-lactamase inhibitors, Cephalosporins, Carbapenems and Metronidazole. They are showing increased RESISTANCE to Clindamycin Anaerobic cocci Normal [facility] Comment on above: Performed By: #### M 100.3000, M100.2000, M100.4001 ####[facility] [id number] [place], [address] Wound Cultureon 04-13-2025 List Antibiotics Las t 48 Hours? none List Antibiotics to be Started? none #3 Susceptibility not normally performed on this organism. Wound Culture Copy of report sent to Infection Control Printer [id number] 04/10/25 0726 FATOUMATA. Wound Culture Wound Culture Wound Culture Meth. resistant Staph. aureus Amount Growth 1+ mecA Testing not performed EFAC Amount Growth Rare Enterococcus faecalis Amount Growth 1+ Meth. resistant Staph. aureus: REACTION Corynebacterium jeikeium Doxycycline Islt LEANN <=0.5 Clindamycin Islt LEANN R Clindamycin.induced Susc Islt Erythromycin Islt LEANN R Gentamicin Islt LEANN <=0.5 S Linezolid Islt LEANN 2 S Moxifloxacin Islt LEANN <=0.25 S Oxacillin Susc Islt >=4 R Tetracycline Islt LEANN <=1 S TMP SMX Islt LEANN <=10 S Vancomycin Islt LEANN <=0.5 S Enterococcus faecalis: REACTION Ampicillin Islt LEANN <=2 S Gentamicin Synergy Susc Islt SYN-S S Linezolid Islt LEANN 2 S Streptomycin High Pot Susc Islt SYN-S Vancomycin Islt LEANN 1 S Normal [facility] Comment on above: Performed By: #### M 100.3000, M100.2000, M100.4001 ####[facility] [id number] [facility] [place], [place], [address] Wound Ctr History AND Physic nelda 04-09-2025 Wound Ctr History & Physical [facility] [address] [place] [address] H P Exam - Wound Care 04/09/25 1601 MR#: [id number] Acct: [id number] Name: CHRISTOPHER CORONEL Rep #: [id number] : 1945 79 From: Oscar Steele MD PCP: Dr. Jennie Mcintyre MD Status:REG RCR Location: History of Present Illness Date of Service: 04/07/25 Chief Complaint: Left ischial pressure ulceration, stage III History of Wound: This is an 79-year-old female, formerly cared for at the Wound Center by a provider who has transferred to another facility. 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 She had progressive paraplegia. She went to TCU for acute rehab for this progressive paraplegia. During that time she had worsening sacral pressure sore with skin necrosis. Surgery 05/15/21 - Excision necrotic sacral pressure sore, Stage IV, with partial ostectomy for osteomyelitis. Pathology from surgery on 05/15/21 of bone showed acute osteomyelitis. Operative culture, soft tissue, from 05/15/21 was positive for Escherichia coli, Klebsiella, Vanc. Resist. E. gallinarum, Vanc. Resist. E. faecalis. Operative culture, bone, from 05/15/21 was positive for Escherichia coli, Vanc. Resist. E. faecalis, Vanc. Resist. E. gallinarum. She was treated with Meropenem and Vancomycin. Linezolid was started after Vancomycin was stopped. Radiation from 05/17/21 - 06/12/21 18 treatments to T4-T7 area including paraspinal region. 06/06/21- Laparoscopic sigmoid colectomy with creation of end colostomy for fecal diversion. She healed out her ulcers November 2023. She states that she was having issues with her urinary catheter leaking which then caused skin breakdown on her left ischial area a little before [place]. They have been using dressing supplies that they had left over (Dakin[employer], selena, aquacel-ag). They thought there might be some improvement in the ulcer, but now that it has been almost a month, they came back for further evaluation and treatment. Wound culture from 11/04/24 positive for Staphylococcus haemolyticus, Staphylococcus epidermidis, Escherichia coli, Corynebacterium striatum, and Cutibacterium acnes and she was treated with Levaquin and Linezolid. The patient denies a history of congestive heart failure, cerebrovascular accident, diabetes mellitus, thyroid disease, pulmonary disease, and renal disease. She has suffered a myocardial infarction in the past, and has had coronary revascularization performed in 2018. She is on long- term systemic anticoagulation with warfarin. [facility] Medical History (Updated 04/09/25 @ 16:[address] Oscar Steele MD) Pressure ulcer of ischium, stage 3 Chronic anticoagulation History of echocardiogram Wears glasses Wears dentures Uses wheelchair Indwelling urethral catheter present Anemia Non-smoker History of edema Cardiology follow-up encounter Pressure ulcer COVID-19 Decubitus ulcer of left ischium, stage 2 Pressure ulcer of right ischium MCI (mild cognitive impairment) Adrenal disorder Decubitus ulcer of left ischium, stage 4 Chronic indwelling Gutierrez catheter Hypertension Pressure sore UTI (urinary tract infection) Adynamic ileus Abdominal pain History of radiation therapy Neuropathic pain Diffuse large B cell lymphoma Paraplegia Debility Pressure ulcer of sacral region, stage 4 Osteomyelitis of pelvis Myocardial infarct Afib Pressure ulcer of sacral region, unstageable Diffuse large B-cell lymphoma Paraplegia Home Medications ???Medication ???Instructions ???Recorded ???Last Taken ???Type losartan 100 mg tablet 50 mg PO DAILY HEART 10/07/21 03/03/14 History amiodarone 200 mg tablet 200 mg PO DAILY@1400 HEART 2 Unknown History gabapentin 100 mg capsule 100 mg PO BID 12/12/21 12/23/24 Hi story metoprolol succinate 50 mg 25 mg PO DAILY BP 12/12/21 5 History tablet,extended release 24 hr Lactobacillus acidophilus 10 10,000 mmu cells PO DAILY@1400 11/11 Unknown History billion cell capsule (Probiotic) supplement atorvastatin 40 mg tablet 40 mg PO QHS cholesterol 01/20/22 Unknown History MINGXIA RED 1 tsp PO DAILY 12/09/24 Unknown Hi story sennosides 8.6 mg capsule (senna) 17.2 mg PO QHS 12/09/24 Unknown H istory warfarin 2 mg tablet 2 mg PO DAILY 12/09/24 12/17/24 Hi story nystatin 100,000 unit/gram topical 1 applic topical BID 10 days #30 01/20/25 Unknown Rx cream grams Allergy/AdvReac Type Severity Reaction Status Date / Time prednisone Allergy Intermediate atrial Verified 12/23/24 07:52 fibrillation Family History ... Normal [facility] Gram Stainon 04-08-2025 GS List Antibiotics Las t 48 Hours? none List Antibiotics to be Started? none Gram Stain Rare Gram positive cocci No cells seen Normal [facility] Comment on above: Performed By: #### M 100.3000, M100.2000, M100.4001 ####[facility] [id number] [place], [address] Anaerobic cultureOrdered By: Oscar Steele on 04-07-2025 Bacteria identified Anaer cx Nom (Unsp spec) Anaerobic cocci Abnormal [facility] Gram stainOrdered By: Oscar Steele on 04-07-2025 Microscopic observation Gram stain Nom (Unsp spec) [facility] Routine wound cultureOrdered By: Oscar Steele on 04-07-2025 Microbial culture, routine Meth. resistant Staph. aureus Abnormal [facility] Wound Ctr History AND Physic nelda 03-19-2025 Wound Ctr History & Physical [facility] [address] [facility] [place] [address] H P Exam - Wound Care 03/19/25 1239 MR#: [id number] Acct: [id number] Name: CHRISTOPHER CORONEL Rep #: [id number] : 1945 79 From: Oscar Steele MD PCP: Dr. Jennie Mcintyre MD Status:REG RCR Location: History of Present Illness Date of Service: 03/17/25 Chief Complaint: Left ischial pressure ulceration, stage III History of Wound: This is an 79-year-old female, formerly cared for at the Wound Center by a provider who has transferred to another facility. 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 She had progressive paraplegia. She went to TCU for acute rehab for this progressive paraplegia. During that time she had worsening sacral pressure sore with skin necrosis. Surgery 05/15/21 - Excision necrotic sacral pressure sore, Stage IV, with partial ostectomy for osteomyelitis. Pathology from surgery on 05/15/21 of bone showed acute osteomyelitis. Operative culture, soft tissue, from 05/15/21 was positive for Escherichia coli, Klebsiella, Vanc. Resist. E. gallinarum, Vanc. Resist. E. faecalis. Operative culture, bone, from 05/15/21 was positive for Escherichia coli, Vanc. Resist. E. faecalis, Vanc. Resist. E. gallinarum. She was treated with Meropenem and Vancomycin. Linezolid was started after Vancomycin was stopped. Radiation from 05/17/21 - 06/12/21 18 treatments to T4-T7 area including paraspinal region. 06/06/21- Laparoscopic sigmoid colectomy with creation of end colostomy for fecal diversion. She healed out her ulcers November 2023. She states that she was having issues with her urinary catheter leaking which then caused skin breakdown on her left ischial area a little before [place]. They have been using dressing supplies that they had left over (Dakin's, selena, aquacel-ag). They thought there might be some improvement in the ulcer, but now that it has been almost a month, they came back for further evaluation and treatment. Wound culture from 11/04/24 positive for Staphylococcus haemolyticus, Staphylococcus epidermidis, Escherichia coli, Corynebacterium striatum, and Cutibacterium acnes and she was treated with Levaquin and Linezolid. The patient denies a history of congestive heart failure, cerebrovascular accident, diabetes mellitus, thyroid disease, pulmonary disease, and renal disease. She has suffered a myocardial infarction in the past, and has had coronary revascularization performed in 2018. She is on long- term systemic anticoagulation with warfarin. [facility] Medical History Chronic anticoagulation History of echocardiogram Wears glasses Wears dentures Uses wheelchair Indwelling urethral catheter present Anemia Non-smoker History of edema Cardiology follow-up encounter Pressure ulcer COVID-19 Decubitus ulcer of left ischium, stage 2 Pressure ulcer of right ischium MCI (mild cognitive impairment) Adrenal disorder Decubitus ulcer of left ischium, stage 4 Chronic indwelling Gutierrez catheter Hypertension Pressure sore UTI (urinary tract infection) Adynamic ileus Abdominal pain History of radiation therapy Neuropathic pain Diffuse large B cell lymphoma Paraplegia Debility Pressure ulcer of sacral region, stage 4 Osteomyelitis of pelvis Myocardial infarct Afib Pressure ulcer of sacral region, unstageable Diffuse large B-cell lymphoma Paraplegia Home Medications ???Medication ???Instructions ???Recorded ???Last Taken ???Type losartan 100 mg tablet 50 mg PO DAILY HEART 10/07/21 03/0 03/14 History amiodarone 200 mg tablet 200 mg PO DAILY@1400 HEART 2 Unknown History gabapentin 100 mg capsule 100 mg PO BID 12/12/21 12/23/24 Hi story metoprolol succinate 50 mg 25 mg PO DAILY BP 12/12/21 5 History tablet,extended release 24 hr Lactobacillus acidophilus 10 10,000 mmu cells PO DAILY@1400 11/11 Unknown History billion cell capsule (Probiotic) supplement atorvastatin 40 mg tablet 40 mg PO QHS cholesterol 01/20/22 Unknown History MINGXIA RED 1 tsp PO DAILY 12/09/24 Unknown Hi story sennosides 8.6 mg capsule (senna) 17.2 mg PO QHS 12/09/24 Unknown H istory warfarin 2 mg tablet 2 mg PO DAILY 12/09/24 12/17/24 Hi story nystatin 100,000 unit/gram topical 1 applic topical BID 10 days #30 01/20/25 Unknown Rx cream grams Allergy/AdvReac Type Severity Reaction Status Date / Time prednisone Allergy Intermediate atrial Verified 12/23/24 07:52 fibrillation Family History Father CHF (congestiv (more content not included)... Normal [facility] History AND Physic nelda 03-05-2025 Wound Ctr History & Physical [facility] [address] [place] [address] H P Exam - Wound Care 03/05/25 1227 MR#: [id number] Acct: [id number] Name: CHRISTOPHER CORONEL Rep #: [id number] : 1945 79 From: Oscar Steele MD PCP: Dr. Jennie Mcintyre MD Status:REG RCR Location: History of Present Illness Date of Service: 03/03/25 Chief Complaint: Left ischial pressure ulceration, stage III History of Wound: This is an 79-year-old female, formerly cared for at the [facility] by a provider who has transferred to another facility. 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 She had progressive paraplegia. She went to TCU for acute rehab for this progressive paraplegia. During that time she had worsening sacral pressure sore with skin necrosis. Surgery 05/15/21 - Excision necrotic sacral pressure sore, Stage IV, with partial ostectomy for osteomyelitis. Pathology from surgery on 05/15/21 of bone showed acute osteomyelitis. Operative culture, soft tissue, from 05/15/21 was positive for Escherichia coli, Klebsiella, Vanc. Resist. E. gallinarum, Vanc. Resist. E. faecalis. Operative culture, bone, from 05/15/21 was positive for Escherichia coli, Vanc. Resist. E. faecalis, Vanc. Resist. E. gallinarum. She was treated with Meropenem and Vancomycin. Linezolid was started after Vancomycin was stopped. Radiation from 05/17/21 - 06/12/21 18 treatments to T4-T7 area including paraspinal region. 06/06/21- Laparoscopic sigmoid colectomy with creation of end colostomy for fecal diversion. She healed out her ulcers November 2023. She states that she was having issues with her urinary catheter leaking which then caused skin breakdown on her left ischial area a little before [place]. They have been using dressing supplies that they had left over ([employer]akin[employer], selena, aquacel-ag). They thought there might be some improvement in the ulcer, but now that it has been almost a month, they came back for further evaluation and treatment. Wound culture from 11/04/24 positive for Staphylococcus haemolyticus, Staphylococcus epidermidis, Escherichia coli, Corynebacterium striatum, and Cutibacterium acnes and she was treated with Levaquin and Linezolid. The patient denies a history of congestive heart failure, cerebrovascular accident, diabetes mellitus, thyroid disease, pulmonary disease, and renal disease. She has suffered a myocardial infarction in the past, and has had coronary revascularization performed in 2018. She is on long- term systemic anticoagulation with warfarin. [facility] Medical History Chronic anticoagulation History of echocardiogram Wears glasses Wears dentures Uses wheelchair Indwelling urethral catheter present Anemia Non-smoker History of edema Cardiology follow-up encounter Pressure ulcer COVID-19 Decubitus ulcer of left ischium, stage 2 Pressure ulcer of right ischium MCI (mild cognitive impairment) Adrenal disorder Decubitus ulcer of left ischium, stage 4 Chronic indwelling Gutierrez catheter Hypertension Pressure sore UTI (urinary tract infection) Adynamic ileus Abdominal pain History of radiation therapy Neuropathic pain Diffuse large B cell lymphoma Paraplegia Debility Pressure ulcer of sacral region, stage 4 Osteomyelitis of pelvis Myocardial infarct Afib Pressure ulcer of sacral region, unstageable Diffuse large B-cell lymphoma Paraplegia Home Medications ???Medication ???Instructions ???Recorded ???Last Taken ???Type losartan 100 mg tablet 50 mg PO DAILY HEART 10/07/21/03/14 History amiodarone 200 mg tablet 200 mg PO DAILY@1400 HEART 2 Unknown History gabapentin 100 mg capsule 100 mg PO BID 12/12/21 12/23/24 Hi story metoprolol succinate 50 mg 25 mg PO DAILY BP 12/12/21 5 History tablet,extended release 24 hr Lactobacillus acidophilus 10 10,000 mmu cells PO DAILY@1400 11/11 Unknown History billion cell capsule (Probiotic) supplement atorvastatin 40 mg tablet 40 mg PO QHS cholesterol 01/20/22 Unknown History MINGXIA RED 1 tsp PO DAILY 12/09/24 Unknown Hi story sennosides 8.6 mg capsule (senna) 17.2 mg PO QHS 12/09/24 Unknown H istory warfarin 2 mg tablet 2 mg PO DAILY 12/09/24 12/17/24 Hi story nystatin 100,000 unit/gram topical 1 applic topical BID 10 days #30 01/20/25 Unknown Rx cream grams Allergy/AdvReac Type Severity Reaction Status Date / Time prednisone Allergy Intermediate atrial Verified 12/23/24 07:52 fibrillation Family History Father CHF (congestiv (more content not included)... Normal [facility] History AND Physic nelda 02-26-2025 Wound Ctr History & Physical [facility] [address] [place] [address] H P Exam - Wound Care 02/26/25 1239 MR#: [id number] Acct: [id number] Name: CHRISTOPHER CORONEL Rep #: [id number] : 1945 79 From: Oscar Steele MD PCP: Dr. Jennie Mcintyre MD Status:REG RCR Location: ADDENDUM by Dr. Oscar Steele MD on 02/26/25 at 1258 Addendum A debridement was performed today, contrary to a mis-statement elsewhere in this document that stated that no debridement was performed today. 02/26/25 1258 Cosigner Signature (if applicable): cc: * Signed History of Present Illness Date of Service: 02/24/25 Chief Complaint: Left ischial pressure ulceration, stage III History of Wound: This is an 79-year-old female, formerly cared for at the [facility] Center by a provider who has transferred to another facility. 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 She had progressive paraplegia. She went to TCU for acute rehab for this progressive paraplegia. During that time she had worsening sacral pressure sore with skin necrosis. Surgery 05/15/21 - Excision necrotic sacral pressure sore, Stage IV, with partial ostectomy for osteomyelitis. Pathology from surgery on 05/15/21 of bone showed acute osteomyelitis. Operative culture, soft tissue, from 05/15/21 was positive for Escherichia coli, Klebsiella, Vanc. Resist. E. gallinarum, Vanc. Resist. E. faecalis. Operative culture, bone, from 05/15/21 was positive for Escherichia coli, Vanc. Resist. E. faecalis, Vanc. Resist. E. gallinarum. She was treated with Meropenem and Vancomycin. Linezolid was started after Vancomycin was stopped. Radiation from 05/17/21 - 06/12/21 18 treatments to T4-T7 area including paraspinal region. 06/06/21- Laparoscopic sigmoid colectomy with creation of end colostomy for fecal diversion. She healed out her ulcers November 2023. She states that she was having issues with her urinary catheter leaking which then caused skin breakdown on her left ischial area a little before [place]. They have been using dressing supplies that they had left over ([employer]akin[employer], selena, aquacel-ag). They thought there might be some improvement in the ulcer, but now that it has been almost a month, they came back for further evaluation and treatment. Wound culture from 11/04/24 positive for Staphylococcus haemolyticus, Staphylococcus epidermidis, Escherichia coli, Corynebacterium striatum, and Cutibacterium acnes and she was treated with Levaquin and Linezolid. The patient denies a history of congestive heart failure, cerebrovascular accident, diabetes mellitus, thyroid disease, pulmonary disease, and renal disease. She has suffered a myocardial infarction in the past, and has had coronary revascularization performed in 2018. She is on long- term systemic anticoagulation with warfarin. [facility] Medical History Chronic anticoagulation History of echocardiogram Wears glasses Wears dentures Uses wheelchair Indwelling urethral catheter present Anemia Non-smoker History of edema Cardiology follow-up encounter Pressure ulcer COVID-19 Decubitus ulcer of left ischium, stage 2 Pressure ulcer of right ischium MCI (mild cognitive impairment) Adrenal disorder Decubitus ulcer of left ischium, stage 4 Chronic indwelling Gutierrez catheter Hypertension Pressure sore UTI (urinary tract infection) Adynamic ileus Abdominal pain History of radiation therapy Neuropathic pain Diffuse large B cell lymphoma Paraplegia Debility Pressure ulcer of sacral region, stage 4 Osteomyelitis of pelvis Myocardial infarct Afib Pressure ulcer of sacral region, unstageable Diffuse large B-cell lymphoma Paraplegia Home Medications ???Medication ???Instructions ???Recorded ???Last Taken ???Type losartan 100 mg tablet 50 mg PO DAILY HEART 10/07/21 03/03/14 History amiodarone 200 mg tablet 200 mg PO DAILY@1400 HEART 2 Unknown History gabapentin 100 mg capsule 100 mg PO BID 12/12/21 12/23/24 Hi story metoprolol succinate 50 mg 25 mg PO DAILY BP 12/12/21 5 History tablet,extended release 24 hr Lactobacillus acidophilus 10 10,000 mmu cells PO DAILY@1400 11/11 Unknown History billion cell capsule (Probiotic) supplement atorvastatin 40 mg tablet 40 mg PO QHS cholesterol 01/20/22 Unknown History MINGXIA RED 1 tsp PO DAILY 12/09/24 Unknown Hi story sennosides 8.6 mg capsule (senna) 17.2 mg PO QHS 12/09/24 Unknown H istory warfarin 2 mg tablet 2 mg PO DAILY 12/09/24 12/17/24 Hi story nystatin 100,000 unit/gram topical 1 applic topical BID 1 (more content not included)... Normal [facility] HEPATIC FUNCTION PANELon Albumin [Mass/Vol] 3.0 g/dL Low 3.4 - 5.0 [facility] Comment on above: Performed By: #### 2 [id number] #### [facility],[address] [place] [address]13 ALK PHOS 107 U/L Normal 46 - 116 [facility] Comment on above: Performed By: #### 2 [id number] #### [facility],[address] [place] [address] 76551 ALT [Catalytic activity/Vol] 50 U/L Normal 16 - 63 [facility] Comment on above: Performed By: #### 2 [id number] #### [facility],[address] [place] [address] 86660 AST [Catalytic activity/Vol] 50 U/L High 13 - 39 [facility] Comment on above: Performed By: #### 2 91099 #### [facility],[address] [place] [address] 35670 Bilirubin [Mass/Vol] 0.7 mg/dL Normal 0.2 - 1.0 [facility] Comment on above: Performed By: #### 2 25822 #### [facility],[address] [place] [address] 55853 Bilirubin.direct [Mass/Vol] 0.2 mg/dL Normal 0.0 - 0.2 [facility] Comment on above: Performed By: #### 2 54292 #### [facility],[address] [place] [address] 78172 Hepatic function 2000 panel Normal [facility] Comment on above: Result Comment: HEPA TIC FUNCTION PROFILE Performed By: #### 2 65639 #### [facility],[address] [place] [address] 25787 Protein [Mass/Vol] 7.7 g/dL Normal 6.4 - 8.2 [facility] Comment on above: Performed By: #### 2 88745 #### [facility],[address] [place] [address] 37330 LIPID PROFILEon 02-17-2025 Cholesterol [Mass/Vol] 141 mg/dL Normal 0 - 240 [facility] Comment on above: Performed By: #### 2 82715 #### [facility],[address] [place] [address] 31033 Cholesterol in HDL [Mass/Vol] 54 mg/dL Normal 40 - 60 [facility] Comment on above: Performed By: #### 2 91242 #### [facility],[address] [place] [address] 20927 Cholesterol in LDL [Mass/Vol] 75 mg/dL Normal 0 - 129 [facility] Comment on above: Performed By: #### 2 90101 #### [facility],[address] [place] [address] 18677 Cholesterol.total/Choles terol in HDL [Mass ratio] 2.6 {ratio} Normal 0.0 - 5.0 [facility] Comment on above: Performed By: #### 2 01920 #### [facility],[address] [place] [address] 34612 Lipid 1996 panel Normal [facility] Comment on above: Result Comment: LIPI D PROFILE Performed By: #### 2 [id number] #### [facility],[address] [place] [address] 45494 Triglyceride [Mass/Vol] 62 mg/dL Normal 0 - 150 [facility] Comment on above: Performed By: #### 2 18131 #### [facility],[address] [place] [address] 32407 PROTHROMBIN TIME AND INRon 0 4-30-2025 INR Coag (PPP) [Relative time] 4.7 {INR} Critically high 0.8 - 1.2 [facility] Comment on above: Result Comment: { CA LLED TO MIGUELINA BY SO AT 11:54 { READ BACK BY MIGUELINA ZAVALA AT 11:54 THE HEMOSIL THROMBOPLASTIN REAGENT USED IN THE PROTHROMBIN TIME TEST INTERACTS WITH THE DRUG CUBICIN (DAPTOMYCIN) AND WILL RESULT IN FALSELY ELEVATED PT / INR RESULTS INR INTERPRETATION INR INDICATION PREVENTION AND TREATMENT OF THROMBOEMBOLISM ASSOCIATED WITH: 2.0 - 3.0 ATRIAL FIBRILLATION, BIOPROSTHETIC HEART VALVES, PULMONARY EMBOLISM, VENOUS THROMBOSIS, SYSTEMIC EMBOLISM POST MYOCARDIAL INFARCTION 2.5 - 3.5 MECHANICAL HEART VALVES Performed By: #### 2 [id number] #### [facility],[address] [place] [address] 49329 PROTHROMBIN TIME AND INR Normal [facility] Comment on above: Result Comment: PROT HROMBIN TIME AND INR Performed By: #### 2 83543 #### [facility],[address] [place] [address] 57271 PT-COUMADIN 52.5 sec High 9.3 - 14.1 [facility] Comment on above: Performed By: #### 2 89597 #### [facility],[address] [place] [address] Wound Ctr History AND Physic nelda 02-11-2025 Wound Ctr History & Physical [facility] [address] [place] [address] H P Exam - Wound Care 02/11/25 1558 MR#: [id number] Acct: [id number] Name: CHRISTOPHER CORONEL Rep #: [id number] : 1945 79 From: Oscar Steele MD PCP: Dr. Jennie Mcintyre MD Status:REG RCR Location: History of Present Illness Date of Service: 02/10/25 Chief Complaint: Left ischial pressure ulceration, stage III History of Wound: This is an 79-year-old female, formerly cared for at the [facility] Center by a provider who has transferred to another facility. 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 She had progressive paraplegia. She went to TCU for acute rehab for this progressive paraplegia. During that time she had worsening sacral pressure sore with skin necrosis. Surgery 05/15/21 - Excision necrotic sacral pressure sore, Stage IV, with partial ostectomy for osteomyelitis. Pathology from surgery on 05/15/21 of bone showed acute osteomyelitis. Operative culture, soft tissue, from 05/15/21 was positive for Escherichia coli, Klebsiella, Vanc. Resist. E. gallinarum, Vanc. Resist. E. faecalis. Operative culture, bone, from 05/15/21 was positive for Escherichia coli, Vanc. Resist. E. faecalis, Vanc. Resist. E. gallinarum. She was treated with Meropenem and Vancomycin. Linezolid was started after Vancomycin was stopped. Radiation from 05/17/21 - 06/12/21 18 treatments to T4-T7 area including paraspinal region. 06/06/21- Laparoscopic sigmoid colectomy with creation of end colostomy for fecal diversion. She healed out her ulcers November 2023. She states that she was having issues with her urinary catheter leaking which then caused skin breakdown on her left ischial area a little before [place]. They have been using dressing supplies that they had left over ([employer]akin[employer], selena, aquacel-ag). They thought there might be some improvement in the ulcer, but now that it has been almost a month, they came back for further evaluation and treatment. Wound culture from 11/04/24 positive for Staphylococcus haemolyticus, Staphylococcus epidermidis, Escherichia coli, Corynebacterium striatum, and Cutibacterium acnes and she was treated with Levaquin and Linezolid. The patient denies a history of congestive heart failure, cerebrovascular accident, diabetes mellitus, thyroid disease, pulmonary disease, and renal disease. She has suffered a myocardial infarction in the past, and has had coronary revascularization performed in 2018. She is on long- term systemic anticoagulation with warfarin. [facility] Medical History Chronic anticoagulation History of echocardiogram Wears glasses Wears dentures Uses wheelchair Indwelling urethral catheter present Anemia Non-smoker History of edema Cardiology follow-up encounter Pressure ulcer COVID-19 Decubitus ulcer of left ischium, stage 2 Pressure ulcer of right ischium MCI (mild cognitive impairment) Adrenal disorder Decubitus ulcer of left ischium, stage 4 Chronic indwelling Gutierrez catheter Hypertension Pressure sore UTI (urinary tract infection) Adynamic ileus Abdominal pain History of radiation therapy Neuropathic pain Diffuse large B cell lymphoma Paraplegia Debility Pressure ulcer of sacral region, stage 4 Osteomyelitis of pelvis Myocardial infarct Afib Pressure ulcer of sacral region, unstageable Diffuse large B-cell lymphoma Paraplegia Home Medications ???Medication ???Instructions ???Recorded ???Last Taken ???Type losartan 100 mg tablet 50 mg PO DAILY HEART 10/07/21 03/03/14 History amiodarone 200 mg tablet 200 mg PO DAILY@1400 HEART 2 Unknown History gabapentin 100 mg capsule 100 mg PO BID 12/12/21 12/23/24 Hi story metoprolol succinate 50 mg 25 mg PO DAILY BP 12/12/21 5 History tablet,extended release 24 hr Lactobacillus acidophilus 10 10,000 mmu cells PO DAILY@1400 11/11 Unknown History billion cell capsule (Probiotic) supplement atorvastatin 40 mg tablet 40 mg PO QHS cholesterol 01/20/22 Unknown History MINGXIA RED 1 tsp PO DAILY 12/09/24 Unknown Hi story sennosides 8.6 mg capsule (senna) 17.2 mg PO QHS 12/09/24 Unknown H istory warfarin 2 mg tablet 2 mg PO DAILY 12/09/24 12/17/24 Hi story nystatin 100,000 unit/gram topical 1 applic topical BID 10 days #30 01/20/25 Unknown Rx cream grams Allergy/AdvReac Type Severity Reaction Status Date / Time prednisone Allergy Intermediate atrial Verified 12/23/24 07:52 fibrillation Family History Father CHF (congestiv (more content not included)... Normal [facility] ED MED ADMINISTRATION DETAIL on 01-31-2025 ED MED ADMINISTRATION DETAIL Second Facing Baster Medication Administration Record [address] [place] [address] [id number] 01/30/2025 Patient: CHRISTOPHER CORONEL Sex: Female : 1945 Age: 79y MEASUREMENTS: Wt: 83.9 kg, Ht/Nick: 64.0 in, BMI: 31.75 ALLERGIES: prednisone Medication Ordered Medication Administration Date/Time Bactrim DS PO 1 22:52 01/30 Bactrim DS PO 1 tab given. Allergies verified and Given tab (NOW x1) confirmed 5 rights. - 22:53 Magdalena Duque R.N. 22:52 01/30/2025 Magdalena Duque R.N. Scanned 1 of 1 [facility] ED NURSES CLINICAL NOTEon ED NURSES CLINICAL NOTE Nurse Narrative Nurse Clinical Narrative [address] [address] [id number] 01/30/2025 20:12:00 Patient: CHRISTOPHER CORONEL Sex: Female : 1945 Age: 79y Disposition: Discharge to Home Disposition Decision Time: 22:50 01/30/2025 Departure Time: 23:07 01/30/2025 TRIAGE Arrived by private vehicle. Historian: (patient and family). Accompanied by family. Primary physician (Miguelina). Triage time: 20:13 01/30/2025. Acuity: LEVEL 3. Chief Complaint: (Leaking around urinary catheter). This started today. ( Catheter placed approximately 2 weeks ago.). ( Laser bladder stone removal procedure at [facility] on December 23, 2024.). SEPSIS SCREEN: NEGATIVE. SIRS criteria negative: respiratory rate greater than 20. Possible sources of infection: UTI. -- 20:33 01/30/25 EDT Chel Campo R.N. 20:29 01/30/25. BP: 167/79 MAP: 108. HR: 90. RR: 22. O2 saturation: 95% on room air. Temperature: 98.6 F (oral). Pain level now 4/10. Describes the pain as dull and aching. (Lower back). -- 20:30 01/30/25 EDT Chel Campo R.N. Measurements: 20:28 01/30/25 Wt: 83.9 kg, Ht/Nick: 64.0 in, BMI: 31.75 -- 20:29 01/30/25 WINNIE Campo R.N. Medications: nystatin 100,000 unit/gram topical cream: APPLY TO THE AFFECTED AREA(S) TWICE DAILY FOR 10 DAYS -- 20:45 01/30/25 WINNIE Campo R.N. 1 of 4 Nurse Narrative warfarin 2 mg tablet: TAKE ONE TABLET BY MOUTH DIRECTED -- 20:45 01/30/25 WINNIE Campo R.N. metoprolol succinate ER 25 mg tablet,extended release 24 hr: TAKE ONE TABLET BY MOUTH EVERY DAY -- 20:45 01/30/25 WINNIE Campo R.N. losartan 50 mg tablet: TAKE ONE TABLET BY MOUTH DAILY -- 20:45 01/30/25 WINNIE Campo R.N. gabapentin 100 mg capsule: TAKE ONE CAPSULE BY MOUTH TWICE DAILY -- 20:45 01/30/25 WINNIE Campo R.N. atorvastatin 40 mg tablet: TAKE ONE TABLET BY MOUTH DAILY -- 20:45 01/30/25 WINNIE Campo R.N. amiodarone 200 mg tablet: TAKE ONE TABLET BY MOUTH EVERY DAY -- 20:45 01/30/25 WINNIE Campo R.N. Allergies: prednisone: Intolerance. (Pass out per patient) -- 20:22 01/30/25 WINNIE Campo R.N. Problems: Cancer. (Large B Cell Lymphoma - wrapped around spinal cord) -- 20:24 01/30/25 WINNIE Campo R.N. Myocardial Infarction: Onset 2018 -- 20:24 01/30/25 WINNIE Campo R.N. Paralysis. (Chest down) -- 20:24 01/30/25 WINNIE Campo R.N. Hypertension -- 20:25 01/30/25 WINNIE Campo R.N. Atrial Fibrillation -- 20:25 01/30/25 EDT Chel Alber, R.N. ADDITIONAL SURGERIES: Cholecystectomy -- 20:01/30/25 EDT Chel Campo R.N. Cardiac Surgery -- 20:01/30/25 EDT Chel Campo R.N. Back Surgery. T4-T7 -- 20:01/30/25 EDT Chel Campo R.N. Coronary artery bypass grafts x 3 -- 20:01/30/25 EDT Chel Campo R.N. Colostomy -- 20:01/30/25 EDT Chel Campo R.N. Debridement of Pressure Injury: Performed 2020. Coccyx -- 20:01/30/25 EDT Chel Campo R.N. Bladder Stone Removal -- 20:32 01/30/25 EDT Chel Campo R.N. History 20:01/30/25. SOCIAL HX: Never smoker. No alcohol use or drug use. The patient has not traveled outside the [place] Infectious disease exposure: No infectious disease exposure. 2 of 4 Nurse Narrative ABUSE ASSESSMENT: The patient answered yes to the question(s) Do you feel safe in your home? and no to the question(s) Are you afraid to go home?. SELF HARM ASSESSMENT: Self harm assessment was performed. The patient answered no to the question(s) Have you recently felt down, depressed, or hopeless? and Do you have thoughts of harming or killing yourself?. FALL RISK ASSESSMENT: Fall risk assessment completed. No risk factors identified. -- 20:33 01/30/25 EDT Chel Campo R.N. Interventions 20:01/30/25. Advanced care plan discussed with patient. Patient has a living will and medical power of claims attorney. -- 20:33 01/30/25 EDT Chel Campo R.N. PHYSICAL ASSESSMENT 20:01/30/25. BP: 167/79 MAP: 105 mmHg. HR: 88 bpm. -- 21:34 01/30/25 EDT Magdalena Duque R.N. 20:28 01/30/25. HR: 93 bpm. O2 saturation: 97%. -- 21:34 01/30/25 ANGELT Magdalena Duque R.N. 20:29 01/30/25. BP: 167/79 MAP: 108. HR: 90. RR: 22. O2 saturation: 95% on room air. Temperature: 98.6 F (oral). Pain level now 4/10. Describes the pain as dull and aching. (Lower back). -- 21:34 01/30/25 EDT Magdalena Duque R.N. 21:38 01/30/25. To room via wheelchair. Patient gowned. ( Pt c/o gutierrez catheter leaking at home and feels the gutierrze needs changed. 150cc of cloudy urine noted to gutierrez bag. Pt has a odor of strong smelling urine to catheter site.). GENERAL / NEURO / PSYCH: Alert. Oriented X 4. HEENT: Mucous membranes are pink. RESPIRATORY: Respirations not labored. Breath sounds within normal limits. GI / : Urinary catheter. SKIN: Skin is warm and dry. -- 21: (more content not included)... Normal [facility] ED ORDER SHEET (CPOE ONLY)on 01-31-2025 ED ORDER SHEET (CPOE ONLY) Order Sheet Order Sheet [address] [place] [address] [id number] 01/30/2025 Patient: CHRISTOPHER CORONEL Sex: Female : 1945 Age: 79y MEASUREMENTS: Wt: 83.9 kg, Ht/Nick: 64.0 in, BMI: 31.75 ALLERGIES: prednisone MEDICATION/IV/DRIP/FL UID ORDERS Order Description Priority Entered Acknowledged Completed Bactrim DS PO1 tab (NOW x1) 22:46 01/30/2025 22:48 22:53 Ilana Cardoso D.O. 01/30/2025 01/30/2025 Magdalena Alvarado R.N. R.NIngrid Reason for ordering with alerts: Clinical consideration given --22:46 01/30/2025 Ilana Cardoso D.O. LAB ORDERS Order Description Priority Entered Acknowledged Collected Completed Urinalysis Stat Stat 20:50 01/30/2025 20:51 01/30/2025 20:51 01/30/2025 Ilana DidurArmond Debra Schrock, R.N. R.N. Urine Culture [CCL] Stat Stat 22:46 01/30/2025 22:48 01/30/2025 Armond Ceballos R.N. DIAGNOSTIC STUDY ORDERS 1 of 2 Order Sheet Order Description Priority Entered Acknowledged Completed STAFF ORDERS Order Description Priority Entered Acknowledged Collected Completed Gutierrez Catheter 20:50 01/30/2025 20:51 01/30/2025 20:51 01/30/2025 Armond Ceballos Debra Schrock, R.N. R.N. Order Comments: 20:50 01/30/2025: (present catheter is leaking) Ilana Cardoso D.O. [Electronically signed by Ilana Cardoso D.O. (01/31/2025 10:58 EDT)] 2 of 2 Normal [facility] ED PHYSICIAN CLINICAL REPORT on 01-31-2025 ED PHYSICIAN CLINICAL REPORT Narrative Physician Clinical Narrative [address] [address] [id number] 01/30/2025 20:12:00 Patient: CHRISTOPHER CORONEL Sex: Female : 1945 Age: 79y Disposition: Discharge to Home Disposition Decision Time: 22:50 01/30/2025 Departure Time: 23:07 01/30/2025 Measurements Wt: 83.9 kg, Ht/Nick: 64.0 in, BMI: 31.75 Initial Vital Sign Measured Time BP MAP HR RR O2Sat ETCO2 Temp Pain GCS RTS 20:28 01/30/2025 167/79 105 88 Time Seen: 20:22 01/30/2025. Arrived- By private vehicle. Historian- patient. HISTORY OF PRESENT ILLNESS Chief Complaint: leaking around Gutierrez catheter. Catheter was placed 2 weeks ago. This started today and still present. The symptoms are described as mild. No abdominal pain, pelvic pain, vaginal pain, low back pain or flank pain. No pain with urination, urinary frequency or urgency of urination. Similar symptoms previously. None. Recent medical care: The patient was seen recently by a health care provider. ( Laser bladder stone removal procedure done at [facility] on December 23, 2024). 1 of 6 Narrative REVIEW OF SYSTEMS GI: No nausea, vomiting, diarrhea or black stools. NEUROLOGICAL: No headache. RESPIRATORY: No cough or difficulty breathing. THROAT: No sore throat. CVS: No chest pain. SKIN: No skin rash. ENDO/HEME/LYMPH: No enlarged lymph nodes. MUSCULOSKELETAL: No joint pain. CONSTITUTIONAL: No fever or chills. PAST HISTORY See nurses notes. 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) Hypertension Myocardial Infarction: Onset 2018 Paralysis: (Chest down) Surgeries: Back Surgery: Body Site T4-T7 Bladder Stone Removal Cardiac Surgery Cholecystectomy Colostomy Coronary artery bypass grafts x 3 Debridement of Pressure Injury: [2020], Body Site Coccyx Medications: amiodarone 200 mg tablet: TAKE ONE TABLET BY MOUTH EVERY DAY atorvastatin 40 mg tablet: TAKE ONE TABLET BY MOUTH DAILY gabapentin 100 mg capsule: TAKE ONE CAPSULE BY MOUTH TWICE DAILY losartan 50 mg tablet: TAKE ONE TABLET BY MOUTH DAILY metoprolol succinate ER 25 mg tablet,extended release 24 hr: TAKE ONE TABLET BY MOUTH EVERY DAY nystatin 100,000 unit/gram topical cream: APPLY TO THE AFFECTED AREA(S) TWICE DAILY FOR 10 DAYS warfarin 2 mg tablet: TAKE ONE TABLET BY MOUTH DIRECTED Allergies: prednisone: Intolerance. (Pass out per patient) 2 of 6 Narrative SOCIAL HISTORY Never smoker. No alcohol use or drug use. ADDITIONAL NOTES The nursing notes have been reviewed. PHYSICAL EXAM Appearance: Alert. Oriented X3. No acute distress. ENT: Pharynx normal. Neck: Neck supple. CVS: Heart sounds normal. Respiratory: No respiratory distress. Breath sounds normal. Chest nontender. Abdomen: Soft and nontender. Bowel sounds normal. (patient has a colostomy.). Skin: Skin warm and dry. No rash. Extremities: Extremities nontender. No lower extremity edema. Neuro: Oriented X 3. Mood/affect normal. No motor deficit. LABS, X-RAYS, AND EKG Laboratory Tests: URINALYSIS Final JAIMEE: 01/30/2025 21:35:00 EDT MsgRcvd: 01/30/2025 22:25 EDT Lab Test Result Reference Status Received Comments 01/30/2025 22:25 URINALYSIS Final URINALYSIS EDT 01/30/2025 22:25 Specimen Type R New Order EDT NORMAL: 01/30/2025 22:25 Color p.yel Final YELLOW EDT 3 of 6 Narrative Lab Test Result Reference Status Received Comments NORMAL: 01/30/2025 22:25 Clarity sl.cloudy Final CLEAR EDT NORMAL: 01/30/2025 22:25 ph 6 Final 5.0-8.0 EDT 15 NORMAL: 01/30/2025 22:25 Protein Final Abnormal NEGATIVE EDT NORMAL: 01/30/2025 22:25 Glucose NORM Final NORMAL EDT NORMAL: 01/30/2025 22:25 Ketone NEG Final NEGATIVE EDT NORMAL: 01/30/2025 22:25 Bilirubin NEG Final NEGATIVE EDT 250 NORMAL: 01/30/2025 22:25 Blood Final Abnormal NEGATIVE EDT NORMAL: 01/30/2025 22:25 Urobilinog NORM Final NORMAL EDT NORMAL: 01/30/2025 22:25 Sp [place] 1.010 Final 1.010-1.030 EDT NORMAL: 01/30/2025 22:25 Nitrite NEG Final NEGATIVE EDT 25 NORMAL: 01/30/2025 22:25 Leukocytes Final Abnormal NEGATIVE EDT 01/30/2025 22:25 Microscopic SEE BELOW Final MICROSCOPIC EDT 01/30/2025 22:25 Wbc 1-5 0-5/hpf Final EDT 4 of 6 Narrative Lab Test Result Reference Status Received Comments 01/30/2025 22:25 Rbc 20-25 0-3/hpf Final EDT 01/30/2025 22:25 Casts NONE Final EDT 01/30/2025 22:25 Crystals NONE Final EDT 01/30/2025 22:25 Amorphous NONE Final EDT 01/30/2025 22:25 Bacteria TRACE Final EDT 01/30/2025 22:25 Epi Cells NONE Final EDT 01/30/2025 22:25 Mucous NONE Final EDT 01/30/2025 22:25 Yeast NONE Final EDT PROGRESS AND PROCEDURES MEDICAL DECISION MAKING: (more content not included)... Normal [facility] ED SUPER BILLon 01-31-2025 ED [facility] [address] [place] [address] [id number] 01/30/2025 Patient: CHRISTOPHER CORONEL Sex: Female : 1945 Age: 79y Item Facility Professional Category Description Code Code Quantity Fee Total Nurse/E/M EMERGENCY 446211 1 $0.00 $0.00 DEPARTMENT VISIT MODERATE SEVERITY (00653-54) Nurse/Supplies 16 Fr Gutierrez Kit [id number] 1 $0.00 $0.00 (529291) Physician/Procedures Gutierrez catheter [id number] 1 $0.00 $0.00 (60627) Grand Total $0.00 Providers Ilana Cardoso D.O. Chief Complaint leaking around Gutierrez catheter. Catheter was placed 2 weeks ago. 1 of 2 Superbill Principal Diagnosis Acute urinary tract infection with cystitis and hematuria. Gutierrez catheter replacement ICD-10 Codes N30.91: Cystitis, unspecified with hematuria Z46.6: Encounter for fitting and adjustment of urinary device 2 of 2 Normal [facility] ED VISIT SUMMARYon ED VISIT SUMMARY Visit Overview Visit Overview [address] [address] [id number] 01/30/2025 Patient: CHRISTPOHER CORONEL Sex: Female : 1945 Age: 79y 01/31/2025 10:58 AM EDT ED Arrival:20:12 01/30/2025 EDT Status: Recent Travel:no Language:eng Adv Directive:Yes Isolation Status: Ethnicity:N Fall Risk:no risk Infectious Disease Exposure:no Measurements:5'4 / 162.6 Self-Harm Status:risk Sepsis Screen:negative cm 185.0 lb / 83.9 kg Chief Complaint:(Catheter placed approximately 2 weeks ago.), ([place]), (Laser bladder stone removal procedure at [facility] on December 23, 2024.), and (Leaking around urinary catheter) ALLERGIES prednisone HOME MEDICATIONS amiodarone 200 mg tablet: TAKE ONE TABLET BY MOUTH EVERY DAY atorvastatin 40 mg tablet: TAKE ONE TABLET BY MOUTH DAILY gabapentin 100 mg capsule: TAKE ONE CAPSULE BY MOUTH TWICE DAILY 1 of 3 Visit Overview losartan 50 mg tablet: TAKE ONE TABLET BY MOUTH DAILY metoprolol succinate ER 25 mg tablet,extended release 24 hr: TAKE ONE TABLET BY MOUTH EVERY DAY nystatin 100,000 unit/gram topical cream: APPLY TO THE AFFECTED AREA(S) TWICE DAILY FOR 10 DAYS warfarin 2 mg tablet: TAKE ONE TABLET BY MOUTH DIRECTED PAST MEDICAL HISTORY / PROBLEMS Atrial Fibrillation 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 (Chest down) See nurses notes PAST SURGICAL HISTORY Back Surgery. T4-T7 Cardiac Surgery Cholecystectomy Colostomy Coronary artery bypass grafts x 3 Debridement of Pressure Injury: Performed 2020. Coccyx SOCIAL HISTORY Smoking status: No Alcohol use: No Drug use: No ED COURSE MEDICATIONS GIVEN IN EMERGENCY DEPARTMENT 22:52 01/30/25 Bactrim DS PO 1 tab IV SITE INFORMATION INTAKE 2 of 3 Visit Overview OUTPUT REASSESMENT (most recent) 21:38 01/30/25. To room via wheelchair. Patient gowned. ( Pt c/o gutierrez catheter leaking at home and feels the gutierrez needs changed. 150cc of cloudy urine noted to gutierrez bag. Pt has a odor of strong smelling urine to catheter site.). GENERAL / NEURO / PSYCH: Alert. Oriented X 4. HEENT: Mucous membranes are pink. RESPIRATORY: Respirations not labored. Breath sounds within normal limits. GI / : Urinary catheter. SKIN: Skin is warm and dry. VITAL SIGNS First Vitals Last Vitals Temp 20:28 01/30/25 Temp 22:58 01/30/25 BP 20:28 01/30/25 167/79 BP 22:58 01/30/25 HR 20:28 01/30/25 88 HR 22:58 01/30/25 74 RR 20:28 01/30/25 RR 22:58 01/30/25 O2 Sat 20:28 01/30/25 O2 Sat 22:58 01/30/25 96% Pain 20:28 01/30/25 Pain 22:58 01/30/25 ETCO2 20:28 01/30/25 ETCO2 22:58 01/30/25 GCS 20:28 01/30/25 GCS 22:58 01/30/25 RTS 20:28 01/30/25 RTS 22:58 01/30/25 PROCEDURES NURSING INTERVENTIONS Urinary catheter LABS / STUDIES LABS / STUDIES ORDERED Urinalysis Urine Culture [CCL] CLINICAL IMPRESSION ACUTE URINARY TRACT INFECTION WITH CYSTITIS AND HEMATURIA GUTIERREZ CATHETER REPLACEMENT 3 of 3 Normal [facility] ED VITALS FLOW SHEETon 01-31 ED VITALS FLOW SHEET Vitals Vital Sign Flow Sheet [address] [place] [address] [id number] 01/30/2025 Patient: CHRISTOPHER CORONEL Sex: Female : 1945 Age: 79y Measurements Wt: 83.9 kg, Ht/Nick: 64.0 in, BMI: 31.75 Measured Time BP MAP HR RR O2Sat ETCO2 Temp Pain GCS RTS 22:58 01/30/2025 74 96% 22:53 01/30/2025 76 97% 22:48 01/30/2025 75 94% 22:45 01/30/2025 132/60 87 74 22:43 01/30/2025 74 96% 22:38 01/30/2025 76 96% 22:33 01/30/2025 77 94% 22:28 01/30/2025 76 96% 22:23 01/30/2025 75 95% 22:18 01/30/2025 75 96% 22:15 01/30/2025 143/64 100 72 22:13 01/30/2025 75 96% 22:08 01/30/2025 71 97% 22:03 01/30/2025 74 97% 21:58 01/30/2025 74 96% 1 of 3 Vitals Measured Time BP MAP HR RR O2Sat ETCO2 Temp Pain GCS RTS 21:53 01/30/2025 76 95% 21:48 01/30/2025 76 95% 21:45 01/30/2025 138/60 98 75 21:43 01/30/2025 77 94% 21:38 01/30/2025 77 95% 21:33 01/30/2025 79 93% 21:28 01/30/2025 79 92% 21:23 01/30/2025 80 93% 21:18 01/30/2025 79 95% 21:15 01/30/2025 130/80 94 78 21:13 01/30/2025 82 96% 21:13 01/30/2025 89/76 80 81 21:08 01/30/2025 81 97% 21:03 01/30/2025 78 96% 20:58 01/30/2025 80 96% 20:57 01/30/2025 153/73 121 77 20:53 01/30/2025 82 96% 20:48 01/30/2025 84 96% 20:43 01/30/2025 170/106 118 88 20:43 01/30/2025 88 93% 20:38 01/30/2025 84 96% 20:33 01/30/2025 88 97% 20:29 01/30/2025 167/79 108 90 22 95% RA 98.6 F 4 20:28 01/30/2025 93 97% 20:28 01/30/2025 167/79 105 88 2 of 3 Vitals 3 of 3 Normal [facility] Bacteria Ur Culton Bacteria identified Cx Nom (U) ORGANISM ID: 1 >=100,000 CFU/ml Escherichia coli Morphology 1 ORGANISM ID: 2 50,000-<100,000 CFU/ml Escherichia coli Morphology 2 ORGANISM ID: 1 (ESCHERICHIA COLI) ------ ANTIBIOTIC INTERPRETATION LEANN STATUS REFERENCE RANGE ------ Ampicillin R >=32 F Susceptible <=8 , Intermediate >8 , Resistant >16 Cefazolin S <=4 F Susceptible 0-16 , Intermediate <0 or >16 , Resistant >16 For uncomplicated urinary tract infections, cefazolin results can be used to predict susceptibility or resistance to cephalexin. Ceftriaxone S <=1 F Susceptible <=1 , Intermediate >1 , Resistant >=4 Cefepime S <=1 F Susceptible <=2 , Susceptible-Dose Dependent >2 , Resistant >=16 Ertapenem S <=0.5 F Susceptible <=0.5 , Intermediate >.5 , Resistant >1 Meropenem S <=0.25 F Susceptible <=1 , Intermediate >1 , Resistant >2 Ampicillin/Sulbact S 8 F Susceptible <=8 , Intermediate >8 , Resistant >16 Piperacillin/Tazobac S <=4 F Susceptible <16 , Susceptible-Dose Dependent >=16 , Resistant >=32 Gentamicin S <=1 F Susceptible <=2 , Intermediate >2 , Resistant >=8 Tobramycin S <=1 F Susceptible <4 , Intermediate >=4 , Resistant >=8 Trimeth sulfameth S <=20 F Susceptible <=40 , Resistant >40 Ciprofloxacin S <=0.25 F Susceptible <0.5 , Intermediate >=.5 , Resistant >=1 Nitrofurantoin S 32 F Susceptible <=32 , Intermediate >32 , Resistant >64 ORGANISM ID: 2 (ESCHERICHIA COLI) ------ ANTIBIOTIC INTERPRETATION LEANN STATUS REFERENCE RANGE ------ Ampicillin R >=32 F Susceptible <=8 , Intermediate >8 , Resistant >16 Cefazolin S <=4 F Susceptible 0-16 , Intermediate <0 or >16 , Resistant >16 For uncomplicated urinary tract infections, cefazolin results can be used to predict susceptibility or resistance to cephalexin. Ceftriaxone S <=1 F Susceptible <=1 , Intermediate >1 , Resistant >=4 Cefepime S <=1 F Susceptible <=2 , Susceptible-Dose Dependent >2 , Resistant >=16 Ertapenem S <=0.5 F Susceptible <=0.5 , Intermediate >.5 , Resistant >1 Meropenem S <=0.25 F Susceptible <=1 , Intermediate >1 , Resistant >2 Ampicillin/Sulbact I 16 F Susceptible <=8 , Intermediate >8 , Resistant >16 Piperacillin/Tazobac S <=4 F Susceptible <16 , Susceptible-Dose Dependent >=16 , Resistant >=32 Gentamicin S <=1 F Susceptible <=2 , Intermediate >2 , Resistant >=8 Tobramycin S <=1 F Susceptible <4 , Intermediate >=4 , Resistant >=8 Trimeth sulfameth S <=20 F Susceptible <=40 , Resistant >40 Ciprofloxacin S <=0.25 F Susceptible <0.5 , Intermediate >=.5 , Resistant >=1 Nitrofurantoin I 64 F Susceptible <=32 , Intermediate >32 , Resistant >64 Abnormal [facility] Comment on above: Performed By: #### 6 30-4 #### [facility] CLIA [id number] [address] [place] [address] OF [facility] URINALYSISon 01-30-2025 Amorphous NONE Normal [facility] Comment on above: Performed By: #### 2 [id number] #### [facility],[address] [place] [address] Bacteria TRACE Normal [facility] Comment on above: Performed By: #### 2 70051 #### [facility],[address] [place] [address] Bilirubin Ql (U) Negative Normal NORMAL: NEGATIVE [facility] Comment on above: Performed By: #### 2 38860 #### [facility],[address] [place] [address] Casts NONE Normal [facility] Comment on above: Performed By: #### 2 29654 #### [facility],[address] [place] [address] Clarity (U) sl.cloudy Normal NORMAL: CLEAR [facility] Comment on above: Performed By: #### 2 60277 #### [facility],[address] [place] [address] Color (U) p.yel Normal NORMAL: YELLOW [facility] Comment on above: Performed By: #### 2 71279 #### [facility],[address] [place] [address] Crystals LM Nom (Urine sed) NONE Normal [facility] Comment on above: Performed By: #### 2 40632 #### [facility],[address] [place] [address] Epi Cells NONE Normal [facility] Comment on above: Performed By: #### 2 30258 #### [facility],[address] [place] [address] Glucose Ql (U) NORM Normal NORMAL: NORMAL [facility] Comment on above: Performed By: #### 2 28019 #### [facility],[address] [place], [place] [id number] Hemoglobin Ql (U) 250 Abnormal NORMAL: NEGATIVE [facility] Comment on above: Performed By: #### 2 24778 #### [facility],[address] [place] [address] Ketone Negative Normal NORMAL: NEGATIVE [facility] Comment on above: Performed By: #### 2 79911 #### [facility],[address] [place] [address] Leukocytes 25 Abnormal NORMAL: NEGATIVE [facility] Comment on above: Performed By: #### 2 46237 #### [facility],[address] [place] [address] Mucous NONE Normal [facility] Comment on above: Performed By: #### 2 81516 #### [facility],[address] [place] [address] Nitrite Ql (U) Negative Normal NORMAL: NEGATIVE [facility] Comment on above: Performed By: #### 2 21508 #### [facility] [place] [address] pH (U) 6 [pH] Normal NORMAL: 5.0-8.0 [facility] Comment on above: Performed By: #### 2 40532 #### [facility],[address] [place] [address] Protein Ql (U) 15 Abnormal NORMAL: NEGATIVE [facility] Comment on above: Performed By: #### 2 86344 #### [facility],[address] [place] [address] Rbc 20-25 Normal 0-3/hpf [facility] Comment on above: Performed By: #### 2 17901 #### [place] [address] Sp [place] 1.010 Normal NORMAL: 1.010-1.030 [facility] Comment on above: Performed By: #### 2 16220 #### [facility],[address] [place] [address] Specimen Type R Normal [facility] Comment on above: Performed By: #### 2 78786 #### [facility],[address] [place] [address] Urinalysis dipstick W Reflex Microscopic panel (U) SEE BELOW Normal [facility] Comment on above: Result Comment: MICR OSCOPIC Performed By: #### 2 50105 #### [facility],[address] [place] [address] Urobilinog NORM Normal NORMAL: NORMAL [facility] Comment on above: Performed By: #### 2 55814 #### [place] [address] Wbc 1-5 Normal 0-5/hpf [facility] Comment on above: Performed By: #### 2 41447 #### [facility],[address] [place] [address] Yeast NONE Normal [facility] Comment on above: Performed By: #### 2 70864 #### [facility],[address] [place], [place] [id number] URINE CULTURE [CCL]on 2024 Bacteria identified Cx Nom (U) URCUL See Results Below See Below CULTURE, URINE ESCHERICHIA COLI >=100,000 CFU/ml Escherichia coli Morphology 1 CULTURE, URINE ESCHERICHIA COLI 50,000-<100,000 CFU/ml Escherichia coli Morphology 2 ORGANISM: ESCHERICHIA COLI ANTIBIOTIC LEANN DILUTN LEANN INTERP Ampicillin >=32 Resistant Cefazolin <=4 Susceptible For uncomplicated urinary tract infections, cefazolin results can be used to pre Ceftriaxone <=1 Susceptible Cefepime <=1 Susceptible Ertapenem <=0.5 Susceptible Meropenem <=0.25 Susceptible Ampicillin/Sulbact 8 Susceptible Piperacillin/Tazobac <=4 Susceptible Gentamicin <=1 Susceptible Tobramycin <=1 Susceptible Trimeth sulfameth <=20 Susceptible Ciprofloxacin <=0.25 Susceptible Nitrofurantoin 32 Susceptible ORGANISM: ESCHERICHIA COLI ANTIBIOTIC LEANN DILUTN LEANN INTERP Ampicillin >=32 Resistant Cefazolin <=4 Susceptible For uncomplicated urinary tract infections, cefazolin results can be used to pre Ceftriaxone <=1 Susceptible Cefepime <=1 Susceptible Ertapenem <=0.5 Susceptible Meropenem <=0.25 Susceptible Ampicillin/Sulbact 16 Intermediate Piperacillin/Tazobac <=4 Susceptible Gentamicin <=1 Susceptible Tobramycin <=1 Susceptible Trimeth sulfameth <=20 Susceptible Ciprofloxacin <=0.25 Susceptible Nitrofurantoin 64 Intermediate This test was developed and its performance characteristics determined by the [facility] ([facility]). It has not been cleared or approved by the FDA. [facility] is regulated under CLIA as qualified to perform high-complexity testing. This test is used for clinical purposes. It should not be regarded as investigational or for research. SOURCE: Urine, Straight Catheter [facility] [address] [place] [address] Keo Munoz III, M.D. [id number] Normal [facility] Comment on above: Performed By: #### 2 84950 #### [facility],[address] [place], [place] [id number] Protime w/INR Fingerstickon 01-01-2025 INR Coag (PPP) [Relative time] 1.2 {INR} Normal [facility] Comment on above: Result Comment: Crit ical Value > 4.0 Performed By: #### L 9200.0000 ####[facility] [address] [place], [address] Protime [place] 13.9 SEC Normal 11.7-14.9 [facility] Comment on above: Performed By: #### L 9200.0000 ####[facility] [address] [place], [address] Protime w/INR Fingerstickon 12-31-2024 INR Coag (PPP) [Relative time] 1.2 {INR} Normal [facility] Comment on above: Result Comment: Crit ical Value > 4.0 Performed By: #### L 9200.0000 ####[facility] [address] [place], [address] Protime [place] 13.9 SEC Normal 11.7-14.9 [facility] Comment on above: Performed By: #### L 9200.0000 ####[facility] [address] [place], [address] Discharge Instructionon Discharge Instruction [facility] Medical Records Department [address] [place] [address] Instructions for Home/Discharge Instructions 12/23/24 0850 MR#: [id number] Acct: [id number] Name: CHRISTOPHER CORONEL Rep #: [id number] : 1945 79 From: Yomi Rose MD PCP: Dr. Jennie Mcintyre MD Status:REG [facility] Discharge Instructions Diet Discharge Diet: No restrictions DC O2, CPAP, BIPAP needs Home O2 Discharge instructions: No Dressing / Incision Discharge Activity: Return to Normal Activity and May Not Drive (while taking narcotic pain medications.) Dressing / Incision Call your doctor if you observe: Fever of 101 or Higher Follow Up Care Please Follow Up With: Yomi Rose MD When: Call [phone] for an appointment Test Results: Test results from this visit will be discussed in further detail at your follow-up appointment, if applicable. Discharge Plan Admission Primary Reason for Your Visit: Bladder stones Attending Provider: Yomi Rose Primary Care Provider: Jennie Mcintyre Instructions Print Language: Malawian Discharge Orders/Prescriptions Prescriptions: Continued metoprolol succinate 50 mg tablet extended release 24 hr 25 mg PO DAILY gabapentin 100 mg capsule 100 mg PO BID Rx Instructions: ONE DOSE DAILY AND 1 PRN IN EVENING losartan 100 mg tablet 50 mg PO DAILY Rx Instructions: family only gives half a tablet if SBP <120 amiodarone 200 mg tablet 200 mg PO DAILY@1400 Probiotic 10 billion cell Capsule 10,000 mmu cells PO DAILY@1400 atorvastatin 40 mg tablet 40 mg PO QHS Patient Comments: TAKE ONE TABLET BY MOUTH DAILY warfarin 2 mg tablet 2 mg PO DAILY Patient Comments: TO STOP 5 DAYS PRIOR MINGXIA RED 1 tsp PO DAILY senna 8.6 mg capsule 17.2 mg PO QHS Referrals / Follow Up: Yomi Rose MD [Med Staff - Active Staff] - Jennie Mcintyre MD [Primary Care Provider] - Disposition Disposition (needs filled in before D/C Order can be placed): Home, Self Care 12/23/24 0850 Yomi Rose MD CC: Dr. Jennie Mcintyre MD Signed Normal [facility] INR Coag (BldC) [Relative ti me]Ordered By: Yomi Rose on 12-23-2024 INR Coag (Bld) [Relative time] 1.2 {INR} [facility] Comment on above: Critical Value > 4.0 International normalized rat io (INR) measurement by fingerstickOrdered By: Yomi Rose on 12-23-2024 INR Coag (BldC) [Relative time] 1.2 [facility] Comment on above: Critical Value > 4.0 MR/POSTOP.ANEon 12-23-2024 MR/POSTOP.[facility] Medical Records Department [address] [place] [address] Anesthesia Postop Eval I 12/23/24 1032 MR#: [id number] Acct: [id number] Name: CHRISTOPHER CORONEL Rep #: [id number] : 1945 79 From: Zachary Pena CRNA PCP: Dr. Jennie Mcintyre MD Status:REG [facility] Y Race: C Location: [place] [address] Anesthesia: Postop Eval I Current Vital Signs Temperature: 97 F Pulse Rate: 72 Blood Pressure: 125/64 Respiratory Rate: 16 Pulse Ox: 94 Oxygen Delivery Method: Room Air Assessment Airway patent: Yes Spontaneous unlabored respirations: Yes Mental status: Asleep nausea: No Vomiting: No Anesthesia Complication: No Fluid Hydration Crystalloid volume administer (ml): 800 Total IV fluid infused: 800 Progress Note Anesthesia document: Postop Eval 1 completed: Yes 12/23/24 1033 Date Zachary Pena ROLLER PICKER Cosigner Signature: Date CC: Signed Normal [facility] MR/[id number] 12-23-2024 /[facility] Medical Records Department [address] [place] [address] Anesthesia Postop Eval II 12/23/24 1101 MR#: [id number] Acct: [id number] Name: CHRISTOPHER CORONEL Rep #: [id number] : 1945 79 From: Nehemiah Gutierrez MD PCP: Dr. Jennie Mcintyre MD Status:REG [facility] Y Race: C Location: [place] [address] Anesthesia Postop Eval I Sum Postop Eval Completion status Anesthesia document: Postop Eval 1 completed: Yes Anesthesia Postop Eval I Summary Anesthesia Postop Eval I Summary: Anesthesia Postop Eval I: Assessment Summary Airway patent Yes 12/23/24 10:33 [email or web address] [email or web address] Spontaneous unlabored Yes 12/23/24 10:33 [email or web address] [email or web address] respirations Mental status Asleep 12/23/24 10:33 [email or web address] nausea No 12/23/24 10:33 [email or web address] Vomiting No 12/23/24 10:33 [email or web address] [email or web address] Anesthesia Postop Eval I: Fluid Summary Crystalloid volume administer 800 12/23/24 10:33 [email or web address] [email or web address] (ml) Colloids volume administered ( ml) Blood Product volume administered (ml) Total IV fluid infused 800 12/23/24 10:33 [email or web address] Anesthesia Postop Eval I: Summary Notes Anesthesia Complication No 12/23/24 10:33 [email or web address] Anesthesia Complication Comment: Post-operative progress note Anesthesia: Postop Eval II Evaluation Mental status: Awake Pain Level: 0 nausea: No Vomiting: No 12/23/24 1101 Date Nehemiah Smithigndanny Signature: Date CC: Signed Normal [facility] Operative Reporton Operative Report [facility] Medical Records Department [address] [facility] [place] [address] Operative Report 12/23/24 1016 MR#: [id number] Acct: [id number] Name: CHRISTOPHER CORONEL Rep #: [id number] : 1945 79 From: Yomi Rose MD PCP: Dr. Jennie Mcintyre MD Status:[facility] Location: [place] [address] Operative Report (Standard) Operative Information Date of Procedure: 12/23/24 Pre-Operative Diagnosis: Multiple large bladder stones greater than 2.5 cm in size Post-Operative Diagnosis: The same Surgery/Procedure Performed: Cystoscopy laser lithotripsy and breakage of bladder stones and removal of all the fragments. 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 The urethra and genitals were prepped and draped in usual sterile fashion. Went into the bladder using a 24 Polish cystoscope. We used the laser bridge through the scope for continuous irrigation. Then using the laser bridge we introduced a laser fiber into the bladder and the stone in the bladder was trapped against the back wall. The stone measured larger than 2,5cm in total size. multiple large stone. The stone was then lasered using laser lithotripsy the small little pieces all the pieces were evacuated on the bladder. After all the stones were removed then the scope was removed there was minimal bleeding, and new gutierrez placed. Surgical Findings: Multiple large bladder stones all lasered and removed Complications Complications: No Admit VTE Documentation VTE Present on Admission: No VTE Mechan Device Prophylaxis: SCD's VTE Pharm Prophylaxis ordered?: No 12/23/24 1018 Cosigner Signature (if applicable): CC: Dr. Yomi Rose MD; Dr. Jennie Mcintyre MD Signed Normal [facility] PT Coag (Bld) [Time]Ordered By: Yomi Rose on 12-23-2024 Bedside Prothrombin Time 13.9 SEC 11.7-14.9 [facility] Whole blood prothrombin time Ordered By: Yomi Rose on 12-23-2024 PT Coag (Bld) [Time] 13.9 s 11.7-14.9 [facility] HEPATIC FUNCTION PANELon Albumin [Mass/Vol] 2.8 g/dL Low 3.4 - 5.0 [facility] Comment on above: Performed By: #### 2 [id number] #### [facility],[address] [place] [address] ALK PHOS 112 U/L Normal 46 - 116 [facility] Comment on above: Performed By: #### 2 11930 #### [facility],[address] [place], [place] [id number] ALT [Catalytic activity/Vol] 28 U/L Normal 16 - 63 [facility] Comment on above: Performed By: #### 2 66219 #### [facility],[address] [place] [address] AST [Catalytic activity/Vol] 30 U/L Normal 13 - 39 [facility] Comment on above: Performed By: #### 2 77052 #### [facility],[address] [place] [address] Bilirubin [Mass/Vol] 0.5 mg/dL Normal 0.2 - 1.0 [facility] Comment on above: Performed By: #### 2 27146 #### [facility],[address] [place] [address] Bilirubin.direct [Mass/Vol] 0.2 mg/dL Normal 0.0 - 0.2 [facility] Comment on above: Performed By: #### 2 95490 #### [facility],[address] [place] [address] Hepatic function 2000 panel Normal [facility] Comment on above: Result Comment: HEPA TIC FUNCTION PROFILE Performed By: #### 2 60459 #### [facility],[address] [place] [address] Protein [Mass/Vol] 6.8 g/dL Normal 6.4 - 8.2 [facility] Comment on above: Performed By: #### 2 68165 #### [facility],[address] [place] [address] TSH W/ REFLEX TO FREE T4on 0 - TSH Qn 3.37 m[IU]/L Normal 0.34 - 5.60 [facility] Comment on above: Performed By: #### 2 02233 #### [facility],[address] [place] [address] MR/Peewee 12-09-2024 MR/PATHARIKA [facility] Medical Records Department [address] [place] [address] PAT - Anesthesia 12/09/240 MR#: [id number] Acct: [id number] Name: CHRISTOPHER CORONEL Rep #: [id number] : 1945 79 From: Tapan Ramos MD PCP: Dr. 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 When Was Last Pacemaker Check QUESTION #4 FULL TEXT: You/Your Family Experience fever (hyperthermia) with Anesthesia Last Oral Intake Last Oral intake: Last Oral Intake NPO since Meds taken in AM with sips of water? Meds patient instructed to take am of surgery PONV PONV - asbestos brake lining finisher: PONV - asbestos brake lining finisher Female Yes 12/09/24 09:09 HX of Motion Sickness No 12/09/24 09:09 HX of N/V After Surgery No 12/09/24 09:09 Non-Smoker Yes 12/09/24 09:09 Duration of Surgery greater Yes 12/09/24 09:09 than 60 minutes Number of Risk Factors 3 12/09/24 09:09 PONV Score Moderate Risk 12/09/24 09:09 Height Weight Height Weight: Anesthesia: Height Weight Height 5 ft 5 in 11/04/24 12:47 Respiratory Assessment Respiratory Assessment - asbestos brake lining finisher: Respiratory Tract Infection Hx - asbestos brake lining finisher Hx Respiratory Tract Infection No 12/09/24 09:09 STOP Sleep Apnea STOP Sleep Apnea - asbestos brake lining finisher: STOP Sleep Apnea - asbestos brake lining finisher Hx Hypertension Yes: CONTROLLED WITH MEDS 12/09/24 09:09 Hx Sleep Apnea No 12/09/24 09:09 CPAP BIPAP Do you snore loudly (louder No 12/09/24 09:09 than talking or can be heard Do you often feel tired/ No 12/09/24 09:09 fatigued/ sleepy during daytime? Has anyone observed you stop No 12/09/24 09:09 breathing during sleep? STOP Results Negative 12/09/24 09:09 QUESTION #5 FULL TEXT : Do you snore loudly (louder than talking or can be heard through closed doors)? 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 Specify any problems Hx of Preganancy in last 3 No 12/09/24 09:09 Months Nurse Filling Out Transfusion DSCHRIBER 12/09/24 09:09 Questions: Date: 12/09/24 12/09/24 09:09 Time: 09:11 12/09/24 09:09 Patient unable to answer at this time (ie. confused, unrespo /Reproductio n History /Reproductiv e History - asbestos brake lining finisher: /Reproductiv e Hx- asbestos brake lining finisher Hx Now No 12/09/24 09:09 Gestational Age (in weeks): EDC: Hx Hx Para Hx Section SAB No 12/09/24 09:09 [facility] Medical History (Updated 12/09/24 @ 09:31 by Helena Callahan) History of echocardiogram Wears glasses Wears dentures Uses wheelchair Indwelling urethral catheter present Anemia Non-smoker History of edema Cardiology follow-up encounter Pressure ulcer COVID-19 Decubitus ulcer of left ischium, stage 2 Pressure ulcer of right ischium MCI (mild cognitive impairment) Adrenal disorder Decubitus ulcer of left ischium, stage 4 Chronic indwelling Gutierrez catheter Hypertension Pressure sore UTI (urinary tract infection) Adynamic ileus Abdominal pain History of radiation therapy Neuropathic pain Diffuse large B cell lymphoma Paraplegia Debility Pressure ulcer of sacral region, stage 4 Osteomyelitis of pelvis Myocardial infarct Afib Pressure ulcer of sacral region, unstageable Diffuse large B-cell lymphoma Paraplegia Home Medications ???Medication ???Instructions ???Recorded ???Last Taken ???Type losa (more content not included)... Normal [facility] Culture, Anaerobic Any Sourc josiane 11-09-2024 CUAN List Antibiotics Las t 48 Hours? NONE List Antibiotics to be Started? NONE LEFT SIDE #1 Anaerobic non-spore forming gram positive rods are usually SUSCEPTIBLE to Beta-lactams and Beta-lactamase inhibitors, Linezolid, and Daptomycin. They are usually RESISTANT to Metronidazole. Cutibacterium acnes Normal [facility] Comment on above: Performed By: #### M 100.2000, M100.3000, M100.4001 ####[facility] [id number] [place], [address] Wound Cultureon 11-07-2024 List Antibiotics Las t 48 Hours? NONE List Antibiotics to be Started? NONE LEFT SIDE #4 Susceptibility not normally performed on this organism. Staphylococcus haemolyticus Amount Growth Rare Staphylococcus epidermidis Staphylococcus epidermidis ECOL Amount Growth Very Rare Escherichia coli Amount Growth Rare Staphylococcus haemolyticus: REACTION Corynebacterium striatum Doxycycline Islt LEANN >=16 Clindamycin Islt LEANN R Clindamycin.induced Susc Islt Erythromycin Islt LEANN >=8 R Gentamicin Islt LEANN <=0.5 S Linezolid Islt LEANN 2 S Oxacillin Susc Islt >=4 R Tetracycline Islt LEANN >=16 R TMP SMX Islt LEANN <=10 S Vancomycin Islt LEANN <=0.5 S Staphylococcus epidermidis: REACTION cefOXitin Susc Islt POS Doxycycline Islt LEANN 8 I Clindamycin Islt LEANN 0.25 S Clindamycin.induced Susc Islt Erythromycin Islt LEANN <=0.25 S Gentamicin Islt LEANN <=0.5 S Linezolid Islt LEANN 1 S Oxacillin Susc Islt >=4 R Tetracycline Islt LEANN >=16 R TMP SMX Islt LEANN <=10 S Vancomycin Islt LEANN 1 S Escherichia coli: REACTION Ampicillin Islt LEANN >=32 R Ampicillin+Sulbac Islt LEANN 16 I Cefepime Islt LEANN <=0.12 S cefTRIAXone Islt LEANN <=0.25 Ciprofloxacin Islt LEANN <=0.06 S B-Lactamase Extended Susc Islt NEG Gentamicin Islt LEANN <=1 S levoFLOXacin Islt LEANN <=0.12 S Meropenem Islt LEANN <=0.25 S Pip+Tazo Islt LEANN <=4 S TMP SMX Islt LEANN >=320 R Normal [facility] Comment on above: Performed By: #### M 100.2000, M100.3000, M100.4001 #### [facility] [address] [facility] [place], [address] Gram Stainon 11-05-2024 GS List Antibiotics Las t 48 Hours? NONE List Antibiotics to be Started? NONE LEFT SIDE Gram Stain 2+ Gram negative rods 1+ White Blood Cells No Epithelial cells Normal [facility] Comment on above: Performed By: #### M 100.2000, M100.3000, M100.4001 ####[facility] [id number] [facility] [place], [address] Bacteria identified Anaer cx Nom (Unsp spec)Ordered By: Barbra Esparza on 11-04-2024 Anaerobic Culture Cutibacterium acnes Abnormal [facility] Gram stainOrdered By: Barbra Esparza on 11-04-2024 Microscopic observation Gram stain Nom (Unsp spec) [facility] Routine wound cultureOrdered By: Barbra Esparza on 11-04-2024 Wound Culture Staphylococcus haemolyticus Abnormal [facility] Wound Culture Staphylococcus epidermidis Abnormal [facility] Wound Culture Escherichia coli Abnormal [facility] Wound Culture Corynebacterium striatum Abnormal [facility] Wound Ctr History AND Physic nelda 11-04-2024 Wound Ctr History & Physical [facility] [address] [place] [address] H P Exam - Wound Care 11/04/24 1427 MR#: [id number] Acct: [id number] Name: CHRISTOPHER CORONEL Rep #: [id number] : 1945 79 From: Barbra Esparza NP RECORDS AND INFORMATION MANAGER-C PCP: Dr. 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 She had progressive paraplegia. She went to TCU for acute rehab for this progressive paraplegia. During that time she had worsening sacral pressure sore with skin necrosis. Surgery 05/15/21 - Excision necrotic sacral pressure sore, Stage IV, with partial ostectomy for osteomyelitis. Pathology from surgery on 05/15/21 of bone showed acute osteomyelitis. Operative culture, soft tissue, from 05/15/21 was positive for Escherichia coli, Klebsiella, Vanc. Resist. E. gallinarum, Vanc. Resist. E. faecalis. Operative culture, bone, from 05/15/21 was positive for Escherichia coli, Vanc. Resist. E. faecalis, Vanc. Resist. E. gallinarum. She was treated with Meropenem and Vancomycin. Linezolid was started after Vancomycin was stopped. Radiation from 05/17/21 - 06/12/21 18 treatments to T4-T7 area including paraspinal region. 06/06/21- Laparoscopic sigmoid colectomy with creation of end colostomy for fecal diversion. She healed out her ulcers November 2023. She states that she was having issues with her urinary catheter leaking which then caused skin breakdown on her left ischial area a little before Antoine. They have been using dressing supplies that they had left over (Dakin's, selena, aquacel-ag). They thought there might be some improvement in the ulcer, but now that it has been almost a month, they came back for further evaluation and treatment. Today she denies any fever. Her appetite is ok. Progress of Wound: Left ischial ulcer that is not showing much improvement. It is a nice beefy pink ulcer. Laney wound is clear. A wound culture was obtained today.??? A positive culture will necessitate antibiotic therapy. [facility] Medical History (Updated 11/04/24 @ 17:04 by Barbra Esparza RECORDS AND INFORMATION MANAGER, RECORDS AND INFORMATION MANAGER-C) Pressure ulcer of right ischium COVID-19 Decubitus ulcer of left ischium, stage 2 MCI (mild cognitive impairment) Infection Gallstone Cancer Adrenal disorder Decubitus ulcer of left ischium, stage [address] Chronic indwelling Gutierrez catheter Hypertension Pressure sore UTI (urinary tract infection) Ileus Adynamic ileus Abdominal pain History of radiation therapy Neuropathic pain Coronary artery disease Diffuse large B cell lymphoma Paraplegia Atrial fibrillation with rapid ventricular response Debility Acute postoperative anemia due to expected blood loss Pressure ulcer of sacral region, stage 4 Osteomyelitis of pelvis Decubitus ulcer Paraplegia Large cell lymphoma Myocardial infarct Afib Pressure ulcer of sacral region, unstageable Diffuse large B-cell lymphoma Coronary artery disease Paraplegia Home Medications ???Medication ???Instructions ???Recorded ???Last Taken ???Type apixaban 5 mg tablet (Eliquis) 5 mg PO BID Blood thinner 30 days 07/20/21 10/06/21 Rx #60 tabs losartan 100 mg tablet 50 mg PO DAILY HEART 10/07/21 10/06/21 History amiodarone 200 mg tablet 200 mg PO DAILY@1400 HEART 12/12/21 Unknown History gabapentin 100 mg capsule 100 mg PO BID 12/12/21 Unknown History metoprolol succinate 50 mg 25 mg PO DAILY BP 12/12/21 Unknown History tablet,extended release 24 hr Lactobacillus acidophilus 10 10,000 mmu cells PO DAILY@1400 01/19/22 Unknown History billion cell capsule (Probiotic) supplement atorvastatin 40 mg tablet 40 mg PO QHS cholesterol 01/20/22 Unknown History Allergy/AdvReac Type Severity Reaction Status Date / Time prednisone Allergy Intermediate atrial Verified 11/04/24 13:06 fibrillation Family History (Reviewed 11/04/24 @ 16:57 by Barbra Esparza RECORDS AND INFORMATION MANAGER, RECORDS AND INFORMATION MANAGER-C) Father CHF (congestive heart failure) Myocardial infarction Mother CAD (coronary artery disease) Alzheimer disease Surgical History (Reviewed 11/04/24 @ 16:57 by Barbra Esparza RECORDS AND INFORMATION MANAGER, RECORDS AND INFORMATION MANAGER-C) H/O Spinal surgery History of cholecystectomy S/P excisional debridement S/P cholecystectomy Hx of CABG Social History (Reviewed 11/04/24 @ 16:57 by Barbra Esparza RECORDS AND INFORMATION MANAGER, RECORDS AND INFORMATION MANAGER-C) household members: family housing: house number of children: 5 Smoking Status: Never smoker alcohol intake: never substance use type: does not use what type of physical activity do you participate in: other details: leg therapy/hand weights (more content not included)... Normal [facility] BMP with eGFRon 09-25-2024 AGE 78 years Normal [facility] Comment on above: Performed By: #### 2 [id number] #### [facility],[address] [place], [place] [id number] Anion gap [Moles/Vol] 14 mmol/L Normal 10 - 20 [facility] Comment on above: Performed By: #### 2 96789 #### [facility],[address] [place] [address] BMP with eGFR Normal [facility] Comment on above: Result Comment: BASI C METABOLIC PANEL Performed By: #### 2 95269 #### [facility],[address] [place] [address] Calcium [Mass/Vol] 8.9 mg/dL Normal 8.5 - 10.1 [facility] Comment on above: Performed By: #### 2 91507 #### [facility],[address] [place] [address] Chloride [Moles/Vol] 105 mmol/L Normal 98 - 107 [facility] Comment on above: Performed By: #### 2 60395 #### [facility],[address] [place] [address] CO2 [Moles/Vol] 27.3 mmol/L Normal 21.0 - 32.0 [facility] Comment on above: Performed By: #### 2 33171 #### [facility],[address] [place] [address] Creatinine [Mass/Vol] 0.98 mg/dL Normal 0.55 - 1.02 [facility] Comment on above: Performed By: #### 2 29089 #### [facility],[address] [place] [address]27 eGFR 55 ML/MINUTE Low 60 - 999 [facility] Comment on above: Performed By: #### 2 02786 #### [facility],[address] [place] [address] GFR/1.73 sq M.predicted among non-blacks MDRD (S/P/Bld) [Vol rate/Area] mL/min/{1.73_m2} Normal 60 - 999 [facility] Comment on above: Result Comment: ACCO RDING TO THE NATIONAL KIDNEY DISEASE EDUCATION PROGRAM(NKDE), A NORMAL eGFR IS A VALUE GREATER THAN OR EQUAL TO 60 ML/MIN/1.73 SQ METERS. CHRONIC KIDNEY DISEASE: <60mL/MIN/1.73 SQ METERS KIDNEY FAILURE: <15mL/MIN/1.73 SQ METERS THIS TEST SHOULD ONLY BE USED FOR PATIENTS 18 YEARS OF AGE AND OLDER. Performed By: #### 2 80372 #### [facility],[address] [place] [address] Glucose [Mass/Vol] 104 mg/dL Normal 74 - 106 [facility] Comment on above: Performed By: #### 2 17362 #### [facility],[address] [place] [address] Potassium [Moles/Vol] 3.8 mmol/L Normal 3.5 - 5.1 [facility] Comment on above: Performed By: #### 2 08625 #### [facility],[address] [place] [address]60 Sodium [Moles/Vol] 142 mmol/L Normal 136 - 145 [facility] Comment on above: Performed By: #### 2 79945 #### [facility],[address] [place] [address] 23142 Urea nitrogen [Mass/Vol] 20 mg/dL High 7 - 18 [facility] Comment on above: Performed By: #### 2 19537 #### [facility],[address] [place] [address] Bacteria Ur Culton 4 Bacteria identified Cx Nom (U) ORGANISM ID: 1 10,000 -<50,000 CFU/ml Mixed microbiota No further workup. Mixed microbiota can be due to???urine???contamin ation with skin bacteria at time of collection or presence of a long-term urinary catheter. If a new culture is needed, please consider re-education of the patient on proper midstream collection technique or straight catheterization for???urine???collect ion. Normal [facility] Comment on above: Performed By: #### 6 30-4 #### [facility] CLIA [id number] [address] [place] [address] [place] CBC + DIFFon 09-25-2024 Baso # 0.02 x10EE3/UL Normal 0.00 - 0.10 [facility] Comment on above: Performed By: #### 2 49986 #### [facility],[address] [place] [address] Basophils/100 WBC (Bld) 0.3 % Normal 0.0 - 2.0 [facility] Comment on above: Performed By: #### 2 98995 #### [facility],[address] [place] [address] CBC + DIFF Normal [facility] Comment on above: Result Comment: CBC- COMPLETE BLOOD COUNT Performed By: #### 2 34833 #### [facility],[address] [place] [address] EO # 0.22 x10EE3/UL Normal 0.00 - 0.50 [facility] Comment on above: Performed By: #### 2 67138 #### [place] [id number] Eosinophils/100 WBC (Bld) 2.6 % Normal 0.0 - 7.0 [facility] Comment on above: Performed By: #### 2 07704 #### [address] [address] Erythrocyte distribution width (RBC) [Ratio] 16.3 % High 12.0 - 15.6 [facility] Comment on above: Performed By: #### 2 75449 #### [facility],[address] [place], [place] [id number] Hematocrit (Bld) [Volume fraction] 41.5 % Normal 34.0 - 46.0 [facility] Comment on above: Performed By: #### 2 98581 #### [facility],[address] [place] [address] Hemoglobin (Bld) [Mass/Vol] 13.4 g/dL Normal 12.0 - 16.0 [facility] Comment on above: Performed By: #### 2 25295 #### [facility],[address] [place] [address] Lymph # 1.88 x10EE3/UL Normal 0.80 - 2.80 [facility] Comment on above: Performed By: #### 2 20442 #### [facility],[address] [place], [place] [id number] Lymphocytes/100 WBC (Bld) 22.4 % Normal 20.0 - 45.0 [facility] Comment on above: Performed By: #### 2 52546 #### [facility],[address] [place] [address] 37182 MANUAL DIFF N/A Normal [facility] Comment on above: Performed By: #### 2 49932 #### [facility],[address] [place], [place] [id number] MCH (RBC) [Entitic mass] 27 pg Normal 27 - 33 [facility] Comment on above: Performed By: #### 2 58656 #### [facility],[address] [place] [address]66 MCHC 32 X10 3 Normal 32 - 36 [facility] Comment on above: Performed By: #### 2 42374 #### [facility],[address] [place] [address]4796 MCV (RBC) [Entitic vol] 84 fL Normal 80 - 99 [facility] Comment on above: Performed By: #### 2 58844 #### [facility],[address] [place] [address] Crook # 0.86 x10EE3/UL Normal 0.20 - 1.00 [facility] Comment on above: Performed By: #### 2 92608 #### [facility],[address] [place] [address]39 MONOS % 10.3 % High 0.0 - 10.0 [facility] Comment on above: Performed By: #### 2 29622 #### [facility],[address] [place] [address]15 Morphology Chandrakant (Bld) [Interp] N/A Normal [facility] Comment on above: Performed By: #### 2 10505 #### [facility],[address] [place] [address] 21238 Neut # 5.41 x10EE3/UL Normal 1.50 - 7.10 [facility] Comment on above: Performed By: #### 2 21707 #### [facility],[address] [place] [address] 95625 Neutrophils/100 WBC (Bld) 64.5 % Normal 46.0 - 76.0 [facility] Comment on above: Performed By: #### 2 99640 #### [facility],[address] [place] [address] 24236 PLATELET 204 x10EE3/UL Normal 150 - 450 [facility] Comment on above: Performed By: #### 2 87228 #### [facility],[address] [place] [address] 17109 Platelet mean volume (Bld) [Entitic vol] 7.8 fL Normal 6.6 - 10.5 [facility] Comment on above: Result Comment: AUTO MATED DIFFERENTIAL Performed By: #### 2 75595 #### [facility],[address] [place] [address] 37563 RBC 4.94 x 10EE6/UL Normal 4.10 - 5.30 [facility] Comment on above: Performed By: #### 2 17024 #### [facility],[address] [place] [address] 56009 WBC 8.4 x 10EE3/UL Normal 4.5 - 10.8 [facility] Comment on above: Performed By: #### 2 33495 #### [facility],[address] [place] [address] 22796 ED MED ADMINISTRATION DETAIL on 09-25-2024 ED MED ADMINISTRATION DETAIL Second Facing Baster Medication Administration Record [address] [address] [id number] 09/24/2024 Patient: CHRISTOPHER CORONEL Sex: Female : 1945 Age: 78y MEASUREMENTS: Wt: 90.7 kg, Ht/Nick: 65.0 in, BMI: 33.28 ALLERGIES: No known drug allergies Medication Ordered Medication Administration Date/Time 1 of 1 Normal [facility] ED NURSES CLINICAL NOTEon ED NURSES CLINICAL NOTE Nurse Narrative Nurse Clinical Narrative [address] [address] [id number] 09/24/2024 Patient: CHRISTOPHER CORONEL Sex: Female : 1945 Age: 78y Disposition: Discharge to Home Disposition Decision Time: 02:26 09/25/2024 Departure Time: 02:40 09/25/2024 TRIAGE 00:12 09/25/24. BP: 157/74 while lying. MAP: 102. HR: 65. RR: 20. O2 saturation: 95% Temperature: 98 F. Pain level now 8/10. -- 01:44 09/25/24 JOSLYN Johnston R.N. Arrived by private vehicle. Historian: patient and family. Triage time: 00:14 09/25/2024. Chief Complaint: ABDOMINAL PAIN. ( catheter not draining. r abd pain). No nausea, vomiting or diarrhea. -- 01:37 09/25/24 JOSLYN Johnston R.N. Acuity: LEVEL 3. 01:45 09/25/24. SEPSIS SCREEN: NEGATIVE. SIRS criteria negative. Possible sources of infection: UTI. -- 01:45 09/25/24 JOSLYN Johnston R.N. Measurements: 01:45 09/25/24 Wt: 90.7 kg, Ht/Nick: 65.0 in, BMI: 33.28 -- 01:45 09/25/24 JOSLYN Johnston R.N. Medications: losartan 50 mg tablet: TAKE ONE TABLET BY MOUTH DAILY -- 01:40 09/25/24 JOSLYN Johnston R.N. atorvastatin 40 mg tablet: TAKE ONE TABLET BY MOUTH DAILY -- 01:40 09/25/24 JOSLYN Johnston R.N. 1 of 4 Nurse Narrative metoprolol succinate ER 25 mg tablet,extended release 24 hr: TAKE ONE TABLET BY MOUTH EVERY DAY -- 01:40 09/25/24 JOSLYN Johnston R.N. warfarin 2 mg tablet: TAKE ONE TABLET BY MOUTH DIRECTED -- 01:40 09/25/24 JOSLYN Johnston R.N. amiodarone 200 mg tablet: TAKE ONE TABLET BY MOUTH EVERY DAY -- 01:40 09/25/24 JOSLYN Johnston R.N. gabapentin 100 mg capsule: TAKE ONE CAPSULE BY MOUTH TWICE DAILY -- 01:40 09/25/24 JOSLYN Johnston R.N. Allergies: no known drug allergies -- 01:34 09/25/24 JOSLYN Johnston R.N. Problems: Cancer -- 01:32 09/25/24 JOSLYN Johnston R.N. Paralysis -- 01:32 09/25/24 JOSLYN Johnston R.N. Myocardial Infarction -- 01:33 09/25/24 JOSLYN Johnston R.N. Cardiac Procedures -- 01:33 09/25/24 JOSLYN Johnston R.N. ADDITIONAL SURGERIES: Cholecystectomy -- 01:33 09/25/24 JOSLYN Johnston R.N. Back Surgery -- 01:33 09/25/24 JOSLYN Johnston R.N. Cardiac Surgery -- 01:33 09/25/24 JOSLYN Johnston R.N. History 01:45 09/25/24. SOCIAL HX: Never smoker. No alcohol use or drug use. The patient has not traveled outside the [place] Infectious disease exposure: No infectious disease exposure. ABUSE ASSESSMENT: The patient answered yes to the question(s) Do you feel safe in your home? and no to the question(s) Are you afraid to go home?. SELF HARM ASSESSMENT: Self harm assessment was performed. The patient answered no to the question(s) Have you recently felt down, depressed, or hopeless? and Do you have thoughts of harming or killing yourself?. FALL RISK ASSESSMENT: Fall risk assessment completed. No risk factors identified. -- 01:45 09/25/24 JOSLYN Johnston R.N. 2 of 4 Nurse Narrative Interventions 01:46 09/25/24. Advanced care plan. Patient has a living will. -- 01:46 09/25/24 JOSLYN Johnston R.N. PHYSICAL ASSESSMENT 00:27 09/25/24. To room via wheelchair. ( R abd pain, catheter changed today, feels catheter is not draining.). GENERAL / NEURO / PSYCH: Alert. Oriented X 4. Appears in no acute distress. RESPIRATORY: Respirations not labored. CVS: Normal sinus rhythm noted. Capillary refill less than 2 seconds. GI / : Abdomen soft. -- 01:47 09/25/24 JOSLYN Johnston R.N. NURSING PROGRESS NOTES 00:39 09/25/24. ( attempted to reposition catheter and flush without success. Pt wanted catheter replaced. agreeable, orders placed). -- 01:49 09/25/24 Coty CostaNIngrid 00:48 09/25/24. URINARY CATHETER: 20 fr double lumen gutierrez catheter placed in ED by me and assisted by one tech. Reason for catheter: retention. During procedure hand hygiene observed and sterile equipment and aseptic technique used. Return of 200 mL yellow-colored clear urine; odor is normal; attached to bedside drainage bag positioned below the bladder and urimeter and secured with velcro. Sample sent to lab for urinalysis and culture. The patient tolerated procedure well (pt wanted catheter replaced). -- 01:48 09/25/24 EST Coty AvilaNIngrid 01:37 09/25/24. Site #1 started via IV with a 20g angiocath with aseptic technique and good blood return; 1 attempt. Blood drawn: rainbow set tube(s). Labeled in the presence of the patient and sent to the lab. Saline lock flushed with 5 mL saline. -- 01:45 09/25/24 EST Shad Costa E.M.T.-P. 01:47 09/25/24. Two patient identifiers checked. Call light placed in reach. Side rails up x 1. Bed placed in lowest position. Brakes of bed on. -- 01:47 09/25/24 Coty CostaNIngrid 01:51 09/25/24. Reassessment after intervention (catheter replacement). Overall patient status is improved- the patient states feels better. ( states reduced pain after catheter replacement). -- 01:51 09/25/24 EST Coty AvilaNIngrid 0 (more content not included)... Normal [facility] ED ORDER SHEET (CPOE ONLY)on 09-25-2024 ED ORDER SHEET (CPOE ONLY) Order Sheet Order Sheet [address] [address] [id number] 09/24/2024 Patient: CHRISTOPHER CORONEL Sex: Female : 1945 Age: 78y MEASUREMENTS: Wt: 90.7 kg, Ht/Nick: 65.0 in, BMI: 33.28 ALLERGIES: No known drug allergies MEDICATION/IV/DRIP/FL UID ORDERS Order Description Priority Entered Acknowledged Completed OxyCODONE PO5 mg (NOW x1, 00:10 09/25/2024 Cancelled: Patient Refusal HIGH ALERT MEDICATION) Lizeth Delacruz, 01:55 EST Lizeth Delacruz D.O. D.O. LAB ORDERS Order Description Priority Entered Acknowledged Collected Completed Urinalysis Stat Stat 00:10 09/25/2024 01:28 09/25/[address] R.N. D.O. Urine Culture [CCL] Stat Stat 00:10 09/25/2024 01:28 09/25/[address] R.N. D.O. BMP Stat Stat 01:24 09/25/2024 01:29 09/25/2024 01:45 09/25/[address] R.N. Bryan Parker, 1 of 2 Order Sheet Armond BallT.-P. CBC w Diff Stat Stat 01:24 09/25/2024 01:29 09/25/2024 01:45 09/25/[address] R.N. Bryan Parker, D.O. E.M.T.-PIngrid DIAGNOSTIC STUDY ORDERS Order Description Priority Entered Acknowledged Completed CT ABD/PEL w Cont Stat Stat 01:24 09/25/2024 Cancelled: Other Lizeth Delacruz, 02:02 EST Lizeth Delacruz D.O. D.O. Order Comments: 01:24 09/25/2024: Status: Not . Lizeth Delacruz D.O. Reason for Study: stone vs hydro right STAFF ORDERS Order Description Priority Entered Acknowledged Collected Completed Bladder Scan 00:10 09/25/2024 01:28 09/25/[address] R.N. D.OIngrid Gutierrez Catheter (Please 00:10 09/25/2024 01:28 09/25/2024 remove gutierrez and [address] R.N. replace) D.OIngrid IV Saline Lock 01:24 09/25/2024 01:29 09/25/2024 01:45 09/25/[address] R.N. Bryan Parker, D.O. E.M.T.-PIngrid [Electronically signed by Lizeth Delacruz D.O. (09/25/2024 02:26 EST)] 2 of 2 Normal [facility] ED PHYSICIAN CLINICAL REPORT on 09-25-2024 ED PHYSICIAN CLINICAL REPORT Narrative Physician Clinical Narrative [address] [place] [address] [id number] 09/24/2024 [id number] Sex[facility] Female : 1945 Age: 78y Disposition: Discharge to Home Disposition Decision Time: 02:26 09/25/2024 Measurements Wt: 90.7 kg, Ht/Nick: 65.0 in, BMI: 33.28 Initial Vital Sign Measured Time BP MAP HR RR O2Sat ETCO2 Temp Pain GCS RTS 00:12 09/25/2024 157/74 102 65 20 95% 98.0 F 8 Time Seen: 00:02 09/25/2024. Arrived- By private vehicle. Historian- patient. HISTORY OF PRESENT ILLNESS Chief Complaint: Catheter not draining. 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 The patient reports that the catheter was replaced at around 3:00 PM today but has failed to drain appropriately, last functioning effectively around 9:00 PM. The catheter, a urethral Gutierrez type, is typically changed every three weeks. The patient has developed right-sided abdominal pain described as a feeling of fullness, which gradually started after the catheter stopped draining. She reports her pain levels fluctuating between 2 and 8 on a scale of 1 to 10. Initially, the catheter size was a 20 Polish, but it was upsized to a 22 Polish in an attempt to resolve the issue. She denies fever, chills, nausea, vomiting, and chest pain. She notes feeling cold earlier due to being uncovered while attempting to address the catheter issue but feels warm currently. In light of the malfunctioning catheter and associated symptoms, they contacted her urologist who advised seeking emergency care. The patient took two Tylenols at 10:00 PM to manage the pain. 1 of 10 Narrative REVIEW OF SYSTEMS RESPIRATORY: No difficulty breathing. CVS: No chest pain. CONSTITUTIONAL: No chills or fever. As per HPI. Status: Not . PAST HISTORY Cancer Cardiac Procedures Myocardial Infarction Paralysis Surgeries: Back Surgery Cardiac Surgery Cholecystectomy Medications: amiodarone 200 mg tablet: TAKE ONE TABLET BY MOUTH EVERY DAY atorvastatin 40 mg tablet: TAKE ONE TABLET BY MOUTH DAILY gabapentin 100 mg capsule: TAKE ONE CAPSULE BY MOUTH TWICE DAILY losartan 50 mg tablet: TAKE ONE TABLET BY MOUTH DAILY metoprolol succinate ER 25 mg tablet,extended release 24 hr: TAKE ONE TABLET BY MOUTH EVERY DAY warfarin 2 mg tablet: TAKE ONE TABLET BY MOUTH DIRECTED Allergies: no known drug allergies SOCIAL HISTORY Never smoker. ADDITIONAL NOTES The nursing notes have been reviewed. 2 of 10 Narrative PHYSICAL EXAM Vital Signs: Have been reviewed. Appearance: Alert. Oriented X3. No acute distress. HEENT: Normal external inspection. Eyes: No scleral icterus or pale conjunctivae. ENT: Pharynx normal. Neck: Neck supple. CVS: Heart sounds normal. Rate normal. Rhythm normal. Respiratory: No respiratory distress. Breath sounds normal. Abdomen: Soft. Mild tenderness (Suprapubic). Mass present. Back: No CVA tenderness. Skin: Skin warm and dry. Normal skin color. Extremities: Extremity tenderness. Neuro: Oriented X 3. (Paraplegic below chest chronic per patient/family). LABS, X-RAYS, AND EKG Laboratory Tests: BMP with eGFR Final JAIMEE: 09/25/2024 01:37:00 EST MsgRcvd: 09/25/2024 02:15 EST Lab Test Result Reference Status Received Comments BASIC 09/25/2024 BMP with eGFR Final METABOLIC 02:15 EST PANEL 09/25/2024 SODIUM 142 mmol/l 136 - 145 Final 02:15 EST 09/25/2024 POTASSIUM 3.8 mmol/L 3.5 - 5.1 Final 02:15 EST 09/25/2024 CHLORIDE 105 mmol/L 98 - 107 Final 02:15 EST 3 of 10 Narrative 09/25/2024 CO2 27.3 mmol/L 21.0 - 32.0 Final 02:15 EST 09/25/2024 GLUCOSE 104 mg/dl 74 - 106 Final 02:15 EST 20 mg/dl 09/25/2024 BUN Above high 7 - 18 Final 02:15 EST normal 09/25/2024 CREATININE 0.98 mg/dl 0.55 - 1.02 Final 02:15 EST 09/25/2024 CALCIUM 8.9 mg/dl 8.5 - 10.1 Final 02:15 EST 09/25/2024 ANION GAP 14 mmol/L 10 - 20 Final 02:15 EST 09/25/2024 AGE 78 years Final 02:15 EST 55 ML/MINUTE 09/25/2024 eGFR 60 - 999 Final Below low normal 02:15 EST 4 of 10 Narrative ACCORDING TO THE NATIONAL KIDNEY DISEASE EDUCATION PROGRAM(NKDE), A NORMAL eGFR IS A VALUE GREATER THAN OR EQUAL TO 60 ML/MIN/1.73 SQ METERS. 09/25/2024 CHRONIC KIDNEY eGFR(AA) >60 ML/MINUTE 60 - 999 Final 02:15 EST DISEASE: <60mL/MIN/1.73 SQ METERS KIDNEY FAILURE: <15mL/MIN/1.73 SQ METERS THIS TEST SHOULD ONLY BE USED FOR PATIENTS 18 YEARS OF AGE AND OLDER. CBC + DIFF Final JAIMEE: 09/25/2024 01:37:00 EST MsgRcvd: 09/25/2024 02:10 EST Lab Test Result Reference Status Received Comments 09/25/2024 02:10 CBC-COMPLETE CB (more content not included)... [facility] ED SUPER BILLon 09-25-2024 ED SUPER BILL [address] [address] [id number] 09/24/2024 Patient: CHRISTOPHER CORONEL Sex: Female : 1945 Age: 78y Item Facility Professional Category Description Code Code Quantity Fee Total Nurse/E/M EMERGENCY 675664 1 $0.00 $0.00 DEPARTMENT VISIT MODERATE SEVERITY (75703-46) Physician/Procedures Gutierrez catheter 748696 1 $0.00 $0.00 (85459) Grand Total $0.00 Providers Lizeth Delacruz D.O. Chief Complaint Catheter not draining. Principal Diagnosis Gutierrez catheter replacement 1 of 2 [facility] ICD-10 Codes Z46.6: Encounter for fitting and adjustment of urinary device 2 of 2 Normal [facility] ED VISIT SUMMARYon ED VISIT SUMMARY Visit Overview Visit Overview [address] [address] [id number] 09/24/2024 Patient: CHRISTOPHER CORONEL Sex: Female : 1945 Age: 78y 09/25/2024 03:01 AM EST ED Arrival:23:20 09/24/2024 EST Status:not Recent Travel:no Language:eng Adv Directive: Isolation Status: Ethnicity:N Fall Risk:no risk Infectious Disease Exposure:no Measurements:5'5 / 165.1 Self-Harm Status:risk Sepsis Screen:negative cm 200.0 lb / 90.7 kg Chief Complaint:ABDOMINAL PAIN and (catheter not draining. r abd pain) ALLERGIES No Known Drug Allergies HOME MEDICATIONS amiodarone 200 mg tablet: TAKE ONE TABLET BY MOUTH EVERY DAY atorvastatin 40 mg tablet: TAKE ONE TABLET BY MOUTH DAILY gabapentin 100 mg capsule: TAKE ONE CAPSULE BY MOUTH TWICE DAILY losartan 50 mg tablet: TAKE ONE TABLET BY MOUTH DAILY metoprolol succinate ER 25 mg tablet,extended release 24 hr: TAKE ONE TABLET BY MOUTH EVERY DAY 1 of 3 Visit Overview warfarin 2 mg tablet: TAKE ONE TABLET BY MOUTH DIRECTED PAST MEDICAL HISTORY / PROBLEMS Cancer Cardiac Procedures Myocardial Infarction Paralysis PAST SURGICAL HISTORY Back Surgery Cardiac Surgery Cholecystectomy SOCIAL HISTORY Smoking status: No Alcohol use: No Drug use: No ED COURSE MEDICATIONS GIVEN IN EMERGENCY DEPARTMENT IV SITE INFORMATION INTAKE OUTPUT REASSESMENT (most recent) 01:51 09/25/24. Reassessment after intervention (catheter replacement). Overall patient status is improved- the patient states feels better. ( states reduced pain after catheter replacement). VITAL SIGNS First Vitals Last Vitals Temp 00:12 09/25/24 98.0 F Temp 02:36 09/25/24 2 of 3 Visit Overview First Vitals Last Vitals BP 00:12 09/25/24 157/74 BP 02:36 09/25/24 HR 00:12 09/25/24 65 HR 02:36 09/25/24 64 RR 00:12 09/25/24 20 RR 02:36 09/25/24 O2 Sat 00:12 09/25/24 95% O2 Sat 02:36 09/25/24 96% Pain 00:12 09/25/24 8 Pain 02:36 09/25/24 ETCO2 00:12 09/25/24 ETCO2 02:36 09/25/24 GCS 00:12 09/25/24 GCS 02:36 09/25/24 RTS 00:12 09/25/24 RTS 02:36 09/25/24 PROCEDURES NURSING INTERVENTIONS Urinary catheter LABS / STUDIES LABS / STUDIES ORDERED BMP CBC w Diff Urinalysis Urine Culture [CCL] CLINICAL IMPRESSION GUTIERREZ CATHETER REPLACEMENT 3 of 3 Normal [facility] ED VITALS FLOW SHEETon 09-25 ED VITALS FLOW SHEET Vitals Vital Sign Flow Sheet [address] [place] [address] [id number] 09/24/2024 Patient: CHRISTOPHER CORONEL Sex: Female : 1945 Age: 78y Measurements Wt: 90.7 kg, Ht/Nick: 65.0 in, BMI: 33.28 Measured Time BP MAP HR RR O2Sat ETCO2 Temp Pain GCS RTS 02:36 09/25/2024 64 96% 02:31 09/25/2024 63 96% 02:28 09/25/2024 145/62 103 59 02:26 09/25/2024 65 96% 02:21 09/25/2024 62 95% 02:16 09/25/2024 63 95% 02:13 09/25/2024 129/64 99 61 02:11 09/25/2024 63 95% 02:06 09/25/2024 64 95% 02:03 09/25/2024 0 02:01 09/25/2024 63 95% 01:59 09/25/2024 148/114 122 63 01:56 09/25/2024 64 96% 01:51 09/25/2024 63 97% 01:51 09/25/2024 4 1 of 2 Vitals Measured Time BP MAP HR RR O2Sat ETCO2 Temp Pain GCS RTS 01:46 09/25/2024 65 95% 01:43 09/25/2024 157/74 101 64 00:12 09/25/2024 157/74 102 65 20 95% 98.0 F 8 2 of 2 Normal [facility] URINALYSISon 09-25-2024 Amorphous 1+ Normal [facility] Comment on above: Performed By: #### 2 [id number] #### [address] [address] Bacteria NONE Normal [facility] Comment on above: Performed By: #### 2 29958 #### [address] [address] Bilirubin Ql (U) Negative Normal NORMAL: NEGATIVE [facility] Comment on above: Performed By: #### 2 16908 #### [facility],[address] [place] [address] Casts NONE Normal [facility] Comment on above: Performed By: #### 2 91109 #### [facility],[address] [place] [address] Clarity (U) sl.cloudy Normal NORMAL: CLEAR [facility] Comment on above: Performed By: #### 2 61358 #### [facility],[address] [place] [address] Color (U) p.yel Normal NORMAL: YELLOW [facility] Comment on above: Performed By: #### 2 41384 #### [facility],[address] [place] [address] Crystals LM Nom (Urine sed) NONE Normal [facility] Comment on above: Performed By: #### 2 72353 #### [facility],[address] [place] [address] 11750 Epi Cells FEW Normal [facility] Comment on above: Performed By: #### 2 12076 #### [facility],[address] [place] [address] Glucose Ql (U) NORM Normal NORMAL: NORMAL [facility] Comment on above: Performed By: #### 2 45183 #### [facility],[address] [place] [address] Hemoglobin Ql (U) 250 Abnormal NORMAL: NEGATIVE [facility] Comment on above: Performed By: #### 2 56831 #### [facility],[address] [place] [address] Ketone Negative Normal NORMAL: NEGATIVE [facility] Comment on above: Performed By: #### 2 08426 #### [facility],[address] [place] [address]4534 Leukocytes 500 Abnormal NORMAL: NEGATIVE [facility] Comment on above: Performed By: #### 2 14077 #### [facility],[address] [place] [address] Mucous 1+ Normal [facility] Comment on above: Performed By: #### 2 93221 #### [facility],[address] [place] [address] Nitrite Ql (U) Negative Normal NORMAL: NEGATIVE [facility] Comment on above: Performed By: #### 2 94629 #### [facility],[address] [place] [address] pH (U) 6 [pH] Normal NORMAL: 5.0-8.0 [facility] Comment on above: Performed By: #### 2 88907 #### [facility],[address] [place] [address] Protein Ql (U) 30 Abnormal NORMAL: NEGATIVE [facility] Comment on above: Performed By: #### 2 44869 #### [facility] [facility] [place] [address] Rbc 5-10 Normal 0-3/hpf [facility] Comment on above: Performed By: #### 2 [id number] #### [facility],[address] [place] [address] Sp [place] 1.010 Normal NORMAL: 1.010-1.030 [facility] Comment on above: Performed By: #### 2 [id number] #### [facility],[address] [place], [place] [id number] Specimen Type R Normal [facility] Comment on above: Performed By: #### 2 [id number] #### [facility],[address] [place] [address] Urinalysis dipstick W Reflex Microscopic panel (U) SEE BELOW Normal [facility] Comment on above: Result Comment: MICR OSCOPIC Performed By: #### 2 [id number] #### [facility],[address] [place], [place] [id number] Urobilinog NORM Normal NORMAL: NORMAL [facility] Comment on above: Performed By: #### 2 [id number] #### [facility],[address] [place], [place] [id number] Wbc 16-25 Normal 0-5/hpf [facility] Comment on above: Performed By: #### 2 [id number] #### [facility],[address] [place] [address] Yeast NONE Normal [facility] Comment on above: Performed By: #### 2 [id number] #### [facility],[address] [place] [address] URINE CULTURE [CCL]on 2023 Bacteria identified Cx Nom (U) URCUL See Results Below See Below CULTURE, URINE MIXED MICROBIOTA 10,000 -<50,000 CFU/ml Mixed microbiota No further workup. Mixed microbiota can be due to???urine???contamin ation with s SOURCE: Urine (Nonspecific) [place] [address] Keo Munoz III, M.D. [id number] Normal [facility] Comment on above: Performed By: #### 2 [id number] #### [facility],[address] [place], [place] [id number] Bacteria Ur Culton 4 Bacteria identified Cx Nom (U) ORGANISM ID: 1 >=100,000 CFU/ml Mixed microbiota No further workup. Mixed microbiota can be due to???urine???contamin ation with skin bacteria at time of collection or presence of a long-term urinary catheter. If a new culture is needed, please consider re-education of the patient on proper midstream collection technique or straight catheterization for???urine???collect ion. Normal [facility] Comment on above: Performed By: #### 6 30-4 #### [facility] CLIA [id number] [address] [place] [address] [place] Bacteria Ur Culton 4 Bacteria identified Cx Nom (U) ORGANISM ID: 1 >=100,000 CFU/ml Mixed microbiota No further workup. Mixed microbiota can be due to???urine???contamin ation with skin bacteria at time of collection or presence of a long-term urinary catheter. If a new culture is needed, please consider re-education of the patient on proper midstream co llection technique or straight catheterization for???urine???collect ion. Normal [facility] Comment on above: Performed By: #### 6 30-4 #### [facility] CLIA [id number] [address] [place] [address] [place] Final Surgical Pathology Rep the medical center 06-15-2024 Final Surgical Pathology Report . Pathology Reports Accession: Collected Date/Time: Received Date/Time: Pathologist: [id number] 06/11/2024 10:36 EDT 06/12/2024 14:17 EDT REED HARRISON MD Final Surgical Pathology Report DIAGNOSIS: A. ENDOCERVICAL CURETTINGS: - FRAGMENTS OF BENIGN ENDOCERVICAL MUCOSA AND METAPLASTIC SQUAMOUS MUCOSA B. ENDOMETRIAL BIOPSY: - SMALL BENIGN ENDOMETRIAL POLYP - SCANT FRAGMENTS OF ATROPHIC ENDOMETRIUM - NEGATIVE FOR HYPERPLASIA OR MALIGNANCY COMMENT: [facility] - [id number] CLINICAL INFORMATION: POSTMENOPAUSAL BLEEDING Procedure: ENDOMETRIAL BX SPECIMEN: A ECC B ENDOMETRIUM GROSS DESCRIPTION: All parts labelled with patient name and [id number] A. Received in formalin labeled endocervical is 1 brush containing multiple wispy white tissue fragments aggregating less than 0.1 cm. Given to cytology for processing. TS-1 B. Received in formalin labeled endometrial are multiple wispy shankar-pink and hemorrhagic tissue fragments aggregating 0.4 x 0.1 cm. Smallest fragments may not survive processing. TS-1 Radha Cooper, Grossing Upper Cutter/ Dr. Ashkan Winn, Pathologist Performed by Radha Cooper MICROSCOPIC DESCRIPTION: The microscopic examination is performed, except in the case of Gross Only. Electronically Signed by Pathology Report verified by [facility] REED HARRISON Sign out Date: 06/15/2024 15:01 Performing Lab: [facility], [address] [place] [address] Pathology Dept Disclaimer If ancillary studies were utilized, the following Laboratory Developed Test (LDT) disclaimer will apply: Under CLIA requirements, [facility] is qualified to perform high complexity testing. For all ancillary stains, positive and negative controls stain appropriately. Performance characteristics of immunohistochemical and chromogenic in-situ hybridization tests have been determined by [facility]. These tests are used for clinical purposes, They should not be regarded as investigational or for research. Normal [facility] ([place]) Anaerobic cultureOrdered By: Barbra Esparza on 07-29-2023 Bacteria identified Anaer cx Nom (Unsp spec) No anaerobic bacteria isolated. [facility] Bacteria identified Anaer cx Nom (Unsp spec) No anaerobic bacteria isolated. [facility] Bacteria identified Cx Nom ( Wound)Ordered By: Barbra Esparza on 07-29-2023 Wound Culture Corynebacterium striatum [facility] Wound Culture Staphylococcus epidermidis [facility] Wound Culture Corynebacterium striatum [facility] Wound Culture Staphylococcus epidermidis [facility] Bilirubin Test strip Ql (U)O rdered By: Barbra Esparza on 07-29-2023 Bilirubin Ql (U) Negative Negative [facility] Culture, urineOrdered By: St alan Esparza on 07-29-2023 Bacteria identified Cx Nom (U) Pseudomonas aeruginosa [facility] Bacteria identified Cx Nom (U) Citrobacter freundii [facility] Bacteria identified Cx Nom (U) Enterococcus faecalis [facility] Bacteria identified Cx Nom (U) Pseudomonas aeruginosa [facility] Bacteria identified Cx Nom (U) Citrobacter freundii [facility] Bacteria identified Cx Nom (U) Enterococcus faecalis [facility] Gram stain for investigation of transfusion reactionOrdered By: Barbra Esparza on 07-29-2023 Microscopic observation Gram stain Nom (Unsp spec) [facility] Microscopic observation Gram stain Nom (Unsp spec) [facility] Ketones Test strip Ql (U)Ord ered By: Barbra Esparza on 07-29-2023 Ketones Ql (U) Negative Negative [facility] Nitrite Test strip Ql (U)Ord ered By: Barbra Esparza on 07-29-2023 Nitrite Ql (U) Positive Negative [facility] Protein Test strip Ql (U)Ord ered By: Barbra Esparza on 07-29-2023 Protein Ql (U) 30 mg/dl Negative [facility] Urine blood detectionOrdered By: Barbra Esparza on 07-29-2023 RBC Ql (U) 25 /ul Negative [facility] Urine clarityOrdered By: El Esparza on 07-29-2023 Clarity (U) Cloudy Clear [facility] Urine color determinationOrd ered By: Barbra Esparza on 07-29-2023 Color (U) Yellow Yellow [facility] Urine glucose detectionOrder ed By: Babrra Esparza on 07-29-2023 Glucose Ql (U) Normal mg/dl Normal [facility] Urine leukocyte esterase det ection by dipstickOrdered By: Barbra Esparza on 07-29-2023 Leukocyte esterase Test strip Ql (U) 500 /ul Negative [facility] Urine pHOrdered By: Barbra echevarria on 07-29-2023 pH (U) 6.5 [pH] 5.0 - 8.0 [facility] Urine specific gravity measu rementOrdered By: Barbra Esparza on 07-29-2023 Specific gravity (U) [Rel density] 1.010 1.002-1.030 [facility] Urobilinogen Auto test strip Ql (U)Ordered By: Barbra Esparza on 07-29-2023 Urobilinogen Ql (U) Normal mg/dl Normal [facility] Anaerobic cultureOrdered By: Barbra Esparza on 03-25-2023 Bacteria identified Anaer cx Nom (Unsp spec) No anaerobic bacteria isolated. [facility] Bacteria identified Cx Nom ( Wound)Ordered By: Barbra Esparza on 03-25-2023 Wound Culture Klebsiella pneumonia e sp pneum [facility] Wound Culture Corynebacterium species [facility] Wound Culture Corynebacterium striatum [facility] Wound Culture Enterococcus faecalis [facility] Wound Culture Staphylococcus hominis hominis [facility] Wound Culture Streptococcus canis [facility] Wound Culture Staphylococcus haemolyticus [facility] Gram stain for investigation of transfusion reactionOrdered By: Barbra Esparza on 03-25-2023 Microscopic observation Gram stain Nom (Unsp spec) [facility] Basophil percentageOrdered B y: Dr. Johnson on 03-19-2023 Basophil percentage < 0.9 mg/dL 0.55-1.02 [facility] No Panel InformationOrdered By: Dr. Johnson on 03-19-2023 Bedside Estimated GFR (eGFR) > 60.0000 mL/min >60 [facility] Influenza virus A and B and SARS-CoV-2 (COVID-19) Ag panel - Upper respiratory specimOrdered By: Dr. Bran on 01-06-2023 SARS-CoV-2 & FLU Antigen (Rapid) SARS-CoV-2 (COVID 19) [facility] SARS-CoV-2 & FLU Antigen (Rapid) Influenzae B [facility] Laboratory - Microbiology an d Antimicrobial susceptibilityOrdered By: Dr. Lagos on 10-21-2022 Bacteria identified Cx Nom (Bld) No growth in 5 days. [facility] Culture, urineOrdered By: Dr Ingrid Lagos on 10-18-2022 Bacteria identified Cx Nom (U) Enterococcus faecalis [facility] Absolute lymphocyte countOrd ered By: Dr. Lagos on 10-16-2022 Lymphocytes Auto (Unsp spec) [#/Vol] 1.18 10*3/uL 0.83-4.51 [facility] Amorphous sediment detection in urine sediment by light microscopyOrdered By: Dr. Lagos on 10-16-2022 Amorphous sediment LM Ql (Urine sed) 1+ [facility] Basophil percentageOrdered B y: Dr. Lagos on 10-16-2022 Basophil percentage 25-50 SEEN /hpf 0-5 [facility] Basophils/100 WBC (Bld) 0.2 % 0-[address] [facility] Chloride [Moles/Vol] 103 mmol/L 98-107 [facility] Eosinophils/100 WBC (Bld) 0.1 % 0-5 [facility] Glucose [Mass/Vol] 101 mg/dL 74-106 [facility] Comment on above: Fasting Glucose resu lt from 100 to 125 mg/dL suggests IMPAIRED HOMEOSTASIS per A.D.A. criteria. Neutrophils (Bld) [#/Vol] 9.7 10*3/uL 2.0-7.7 [facility] Neutrophils/100 WBC (Bld) 83.1 % 47-70 [facility] Potassium [Moles/Vol] 4.8 mmol/L 3.5-5.1 [facility] Comment on above: Moderate Hemolysis, Result may be falsely increased. Sodium [Moles/Vol] 135 mmol/L 136-145 [facility] WBC (Bld) [#/Vol] 11.6 10*3/uL 4.4-11.0 [facility] Bilirubin Test strip Ql (U)O rdered By: Dr. Lagos on 10-16-2022 Bilirubin Ql (U) Negative Negative [facility] Blood erythrocytes count (nu mber/volume)Ordered By: Dr. Lagos on 10-16-2022 RBC (Bld) [#/Vol] 4.98 10*6/uL 4.2-5.4 [facility] Blood hemoglobin measurement (mass/volume)Ordered By: Dr. Lagos on 10-16-2022 Hemoglobin (Bld) [Mass/Vol] 14.3 g/dL 12.0-15.0 [facility] Blood lymphocytes/100 leukoc ytesOrdered By: Dr. Lagos on 10-16-2022 Lymphocytes/100 WBC (Bld) 10.2 % 19-41 [facility] Blood monocytes/100 leukocyt esOrdered By: Dr. Lagos on 10-16-2022 Monocytes/100 WBC (Bld) 5.8 % 0-[address] [facility] Blood platelet mean volumeOr dered By: Dr. Lagos on 10-16-2022 Platelet mean volume (Bld) [Entitic vol] 9.5 fL 6.2-12.0 [facility] Determination of erythrocyte mean corpuscular volume (MCV)Ordered By: Dr. Lagos on 10-16-2022 MCV (RBC) [Entitic vol] 85.9 fL 81-[address] [facility] Hematocrit Auto (Bld) [Volum e fraction]Ordered By: Dr. Lagos on 10-16-2022 Hematocrit (Bld) [Volume fraction] 42.8 % 37-47 [facility] Influenza virus A and B and SARS-CoV-2 (COVID-19) Ag panel - Upper respiratory specimOrdered By: Dr. Lagos on 10-16-2022 SARS-CoV-2 (COVID-19) RNA DANIEL+probe Ql (Resp) [facility] Ketones Test strip Ql (U)Ord ered By: Dr. Lagos on 10-16-2022 Ketones Ql (U) 15 mg/dl Negative [facility] Laboratory - Chemistry and C hemistry - challengeOrdered By: Dr. Lagos on 10-16-2022 CO2 [Moles/Vol] 27.0 mmol/L 21.0-32.0 [facility] Urea nitrogen/Creatinine [Mass ratio] 22.7 mg/mg 10-20 [facility] Laboratory - Hematology and Cell countsOrdered By: Dr. Lagos on 10-16-2022 Erythrocyte distribution width (RBC) [Entitic vol] 47.5 fL 35.1-43.9 [facility] Erythrocyte distribution width (RBC) [Ratio] 15.2 % 11.6-14.6 [facility] Immature granulocytes/100 WBC (Bld) 0.600 % 0.0-0.9 [facility] Comment on above: IG% - Immature Granu locytes (promyelocytes, myelocytes and metamyelocytes) > 1% indicates that a LEFT SHIFT is Present. MCH (RBC) [Entitic mass] 28.7 pg 27.0-32.0 [facility] Nucleated RBC/100 WBC (Bld) [Ratio] 0 % 0-5 [facility] MCHC Auto (RBC) [Mass/Vol]Or dered By: Dr. Lagos on 10-16-2022 MCHC (RBC) [Mass/Vol] 33.4 g/dL 32-36 [facility] Mucus LM Ql (Urine sed)Order ed By: Dr. Lagos on 10-16-2022 Mucus Ql (Urine sed) 0 SEEN /hpf [facility] Nitrite Test strip Ql (U)Ord ered By: Dr. Lagos on 10-16-2022 Nitrite Ql (U) Negative Negative [facility] No Panel InformationOrdered By: Dr. Lagos on 10-16-2022 Estimated Creatinine Clearance Calc 40.04 ml/min [facility] Estimated GFR (MDRD) Amer 103 mL/min >60 [facility] Comment on above: GFR Calc Estimated GFR (MDRD) Non-Af Amer 85 mL/min >60 [facility] Comment on above: Non- GFR Calc Platelets bldOrdered By: Dr. Lagos on 10-16-2022 Platelets (Bld) [#/Vol] 151 10*3/uL 150-450 [facility] Protein Test strip Ql (U)Ord ered By: Dr. Lagos on 10-16-2022 Protein Ql (U) 30 mg/dl Negative [facility] Serum or plasma calcium zeinab urement (mass/volume)Ordered By: Dr. Lagos on 10-16-2022 Calcium [Mass/Vol] 9.3 mg/dL 8.5-10.1 [facility] Serum or plasma creatinine m easurement (mass/volume)Ordered By: Dr. Lagos on 10-16-2022 Creatinine [Mass/Vol] 0.70 mg/dL 0.55-1.02 [facility] Comment on above: The validity of the calculated GFR & GFRAA in patients over 70 years has not been determined. Clinical correlation is essential. Serum or plasma urea nitroge n measurement (mass/volume)Ordered By: Dr. Lagos on 10-16-2022 Urea nitrogen [Mass/Vol] 16 mg/dL 7-18 [facility] Squamous epithelial cells de tection in urine sediment by light microscopyOrdered By: Dr. Lagos on 10-16-2022 Epithelial cells.squamous LM Ql (Urine sed) 0-5 SEEN /hpf 5-10 [facility] Thin prep Papanicolaou smear with manual screeningOrdered By: Dr. Lagos on 10-16-2022 Thin prep Papanicolaou smear with manual screening 5 5-15 [facility] Urine blood detectionOrdered By: Dr. Lagos on 10-16-2022 RBC Ql (U) 50 /ul Negative [facility] RBC Ql (U) 0-5 SEEN /hpf 0-5 [facility] Urine clarityOrdered By: Dr. Lagos on 10-16-2022 Clarity (U) Sl. Cloudy Clear [facility] Urine color determinationOrd ered By: Dr. Lagos on 10-16-2022 Color (U) Yellow Yellow [facility] Urine glucose detectionOrder ed By: Dr. Lagos on 10-16-2022 Glucose Ql (U) Normal mg/dl Normal [facility] Urine leukocyte esterase det ection by dipstickOrdered By: Dr. Lagos on 10-16-2022 Leukocyte esterase Test strip Ql (U) 500 /ul Negative [facility] Urine pHOrdered By: Dr. Tammie becker on 10-16-2022 pH (U) 7.0 [pH] 5.0 - 8.0 [facility] Urine sediment bacteria coun t by microscopy (number/high power field)Ordered By: Dr. Lagos on 10-16-2022 Bacteria LM.HPF (Urine sed) [#/Area] 1 /[HPF] None Seen [facility] Urine specific gravity measu rementOrdered By: Dr. Lagos on 10-16-2022 Specific gravity (U) [Rel density] 1.010 1.002-1.030 [facility] Urobilinogen Auto test strip Ql (U)Ordered By: Dr. Lagos on 10-16-2022 Urobilinogen Ql (U) Normal mg/dl Normal [facility] Absolute lymphocyte counton 03-05-2022 Lymphocytes Auto (Unsp spec) [#/Vol] 2.49 10*3/uL 0.83-4.51 [facility] Work Phone: Basophil percentageon 2021 Basophils/100 WBC (Bld) 0.3 % 0-[address] [facility] Work Phone: Bilirubin [Mass/Vol] 0.30 mg/dL 0.20-1.00 [facility] Work Phone: Comment on above: For patients on eltr ombopag therapy, use of Dimension [place] TBIL is not recommended. Chloride [Moles/Vol] 106 mmol/L 98-107 [facility] Work Phone: Eosinophils/100 WBC (Bld) 6.7 % 0-5 [facility] Work Phone: Glucose [Mass/Vol] 103 mg/dL 74-106 [facility] Work Phone: Comment on above: Fasting Glucose resu lt from 100 to 125 mg/dL suggests IMPAIRED HOMEOSTASIS per A.D.A. criteria. Neutrophils (Bld) [#/Vol] 2.6 10*3/uL 2.0-7.7 [facility] Work Phone: Neutrophils/100 WBC (Bld) 42.2 % 47-70 [facility] Work Phone: [phone] Potassium [Moles/Vol] 3.9 mmol/L 3.5-5.1 [facility] Work Phone: Protein [Mass/Vol] 6.2 g/dL 6.4-8.2 [facility] Work Phone: [phone] Sodium [Moles/Vol] 139 mmol/L 136-145 [facility] Work Phone: [phone] WBC (Bld) [#/Vol] 6.1 10*3/uL 4.4-11.0 [facility] Work Phone: Blood erythrocytes count (nu mber/volume)on 03-05-2022 RBC (Bld) [#/Vol] 4.01 10*6/uL 4.2-5.4 [facility] Work Phone: Blood hemoglobin measurement (mass/volume)on 03-05-2022 Hemoglobin (Bld) [Mass/Vol] 11.4 g/dL 12.0-15.0 [facility] Work Phone: Blood lymphocytes/100 leukoc yteson 03-05-2022 Lymphocytes/100 WBC (Bld) 40.8 % 19-41 [facility] Work Phone: Blood monocytes/100 leukocyt eson 03-05-2022 Monocytes/100 WBC (Bld) 9.7 % 0-[address] [facility] Work Phone: Blood platelet mean volumeon 03-05-2022 Platelet mean volume (Bld) [Entitic vol] 9.2 fL 6.2-12.0 [facility] Work Phone: Determination of erythrocyte mean corpuscular volume (MCV)on 03-05-2022 MCV (RBC) [Entitic vol] 91.8 fL 81-[address] [facility] Work Phone: [phone] Hematocrit Auto (Bld) [Volum e fraction]on 03-05-2022 Hematocrit (Bld) [Volume fraction] 36.8 % 37-47 [facility] Work Phone: Laboratory - Chemistry and C hemistry - challengeon 03-05-2022 ALP [Catalytic activity/Vol] 77 U/L 45-117 [facility] Work Phone: ALT [Catalytic activity/Vol] 18 U/L 13-56 [facility] Work Phone: CO2 [Moles/Vol] 29.0 mmol/L 21.0-32.0 [facility] Work Phone: Globulin (S) [Mass/Vol] 3.9 g/dL 2.2-4.[address] [facility] Work Phone: Urea nitrogen/Creatinine [Mass ratio] 24.6 mg/mg 10-20 [facility] Work Phone: Laboratory - Hematology and Cell countson 03-05-2022 Erythrocyte distribution width (RBC) [Entitic vol] 48.8 fL 35.1-43.9 [facility] Work Phone: Erythrocyte distribution width (RBC) [Ratio] 14.4 % 11.6-14.6 [facility] Work Phone: Immature granulocytes/100 WBC (Bld) 0.300 % 0.0-0.9 [facility] Work Phone: Comment on above: IG% - Immature Granu locytes (promyelocytes, myelocytes and metamyelocytes) > 1% indicates that a LEFT SHIFT is Present. MCH (RBC) [Entitic mass] 28.4 pg 27.0-32.0 [facility] Work Phone: Nucleated RBC/100 WBC (Bld) [Ratio] 0 % 0-5 [facility] Work Phone: MCHC Auto (RBC) [Mass/Vol]on 03-05-2022 MCHC (RBC) [Mass/Vol] 31.0 g/dL 32-36 [facility] Work Phone: No Panel Informationon 03-05 Estimated GFR (MDRD) Amer 132 mL/min >60 [facility] Work Phone: Comment on above: GFR Calc Estimated GFR (MDRD) Non-Af Amer 109 mL/min >60 [facility] Work Phone: Comment on above: Non- GFR Calc Platelets bldon 03-05-2022 Platelets (Bld) [#/Vol] 230 10*3/uL 150-450 [facility] Work Phone: Serum or plasma albumin zeinab urement (mass/volume)on 03-05-2022 Albumin [Mass/Vol] 2.3 g/dL 3.2-5.0 [facility] Work Phone: Serum or plasma albumin/glob ulin mass ratioon 03-05-2022 Albumin/Globulin [Mass ratio] 0.6 {ratio} 0.9-2.4 [facility] Work Phone: Serum or plasma calcium zeinab urement (mass/volume)on 03-05-2022 Calcium [Mass/Vol] 8.8 mg/dL 8.5-10.1 [facility] Work Phone: Serum or plasma creatinine m easurement (mass/volume)on 03-05-2022 Creatinine [Mass/Vol] 0.57 mg/dL 0.55-1.02 [facility] Work Phone: Comment on above: The validity of the calculated GFR & GFRAA in patients over 70 years has not been determined. Clinical correlation is essential. Serum or plasma urea nitroge n measurement (mass/volume)on 03-05-2022 Urea nitrogen [Mass/Vol] 14 mg/dL 7-18 [facility] Work Phone: Thin prep Papanicolaou smear with manual screeningon 03-05-2022 Thin prep Papanicolaou smear with manual screening 24 U/L 15-37 [facility] Work Phone: Thin prep Papanicolaou smear with manual screening 4 5-15 [facility] Work Phone: Thin prep Papanicolaou smear with manual screening 112 U/L 84-246 [facility] Work Phone: Absolute lymphocyte counton 01-22-2022 Lymphocytes Auto (Unsp spec) [#/Vol] 2.35 10*3/uL 0.83-4.51 [facility] Work Phone: Basophil percentageon 2021 Basophils/100 WBC (Bld) 0.2 % 0-[address] [facility] Work Phone: Eosinophils/100 WBC (Bld) 1.3 % 0-5 [facility] Work Phone: Neutrophils (Bld) [#/Vol] 8.0 10*3/uL 2.0-7.7 [facility] Work Phone: Neutrophils/100 WBC (Bld) 67.5 % 47-70 [facility] Work Phone: WBC (Bld) [#/Vol] 11.9 10*3/uL 4.4-11.0 [facility] Work Phone: Blood erythrocytes count (nu mber/volume)on 01-22-2022 RBC (Bld) [#/Vol] 4.16 10*6/uL 4.2-5.4 [facility] Work Phone: Blood hemoglobin measurement (mass/volume)on 01-22-2022 Hemoglobin (Bld) [Mass/Vol] 11.8 g/dL 12.0-15.0 [facility] Work Phone: [phone] Blood lymphocytes/100 leukoc yteson 01-22-2022 Lymphocytes/100 WBC (Bld) 19.7 % 19-41 [facility] Work Phone: [phone] Blood monocytes/100 leukocyt eson 01-22-2022 Monocytes/100 WBC (Bld) 10.7 % 0-[address] [facility] Work Phone: Blood platelet mean volumeon 01-22-2022 Platelet mean volume (Bld) [Entitic vol] 9.8 fL 6.2-12.0 [facility] Work Phone: Determination of erythrocyte mean corpuscular volume (MCV)on 01-22-2022 MCV (RBC) [Entitic vol] 87.5 fL 81-[address] [facility] Work Phone: Hematocrit Auto (Bld) [Volum e fraction]on 01-22-2022 Hematocrit (Bld) [Volume fraction] 36.4 % 37-47 [facility] Work Phone: Laboratory - Hematology and Cell countson 01-22-2022 Erythrocyte distribution width (RBC) [Entitic vol] 55.1 fL 35.1-43.9 [facility] Work Phone: Erythrocyte distribution width (RBC) [Ratio] 17.1 % 11.6-14.6 [facility] Work Phone: Immature granulocytes/100 WBC (Bld) 0.600 % 0.0-0.9 [facility] Work Phone: Comment on above: IG% - Immature Granu locytes (promyelocytes, myelocytes and metamyelocytes) > 1% indicates that a LEFT SHIFT is Present. MCH (RBC) [Entitic mass] 28.4 pg 27.0-32.0 [facility] Work Phone: Nucleated RBC/100 WBC (Bld) [Ratio] 0 % 0-5 [facility] Work Phone: MCHC Auto (RBC) [Mass/Vol]on 01-22-2022 MCHC (RBC) [Mass/Vol] 32.4 g/dL 32-36 [facility] Work Phone: Platelets bldon 01-22-2022 Platelets (Bld) [#/Vol] 227 10*3/uL 150-450 [facility] Work Phone: Basophil percentageon 2021 Chloride [Moles/Vol] 108 mmol/L 98-107 [facility] Work Phone: Glucose [Mass/Vol] 81 mg/dL 74-106 [facility] Work Phone: Potassium [Moles/Vol] 3.8 mmol/L 3.5-5.1 [facility] Work Phone: Sodium [Moles/Vol] 138 mmol/L 136-145 [facility] Work Phone: Laboratory - Chemistry and C hemistry - challengeon 01-21-2022 CO2 [Moles/Vol] 25.0 mmol/L 21.0-32.0 [facility] Work Phone: Urea nitrogen/Creatinine [Mass ratio] 32.9 mg/mg 10-20 [facility] Work Phone: No Panel Informationon 01-21 Estimated Creatinine Clearance Calc 40.68 ml/min [facility] Work Phone: Estimated GFR (MDRD) Amer 273 mL/min >60 [facility] Work Phone: Comment on above: GFR Calc Estimated GFR (MDRD) Non-Af Amer 226 mL/min >60 [facility] Work Phone: Comment on above: Non- GFR Calc Serum or plasma calcium zeinab urement (mass/volume)on 01-21-2022 Calcium [Mass/Vol] 8.4 mg/dL 8.5-10.1 [facility] Work Phone: Serum or plasma creatinine m easurement (mass/volume)on 01-21-2022 Creatinine [Mass/Vol] 0.30 mg/dL 0.55-1.02 [facility] Work Phone: Comment on above: The validity of the calculated GFR & GFRAA in patients over 70 years has not been determined. Clinical correlation is essential. Serum or plasma urea nitroge n measurement (mass/volume)on 01-21-2022 Urea nitrogen [Mass/Vol] 10 mg/dL 7-18 [facility] Work Phone: Thin prep Papanicolaou smear with manual screeningon 01-21-2022 Thin prep Papanicolaou smear with manual screening 5 5-15 [facility] Work Phone: [phone] Absolute lymphocyte counton 01-19-2022 Lymphocytes Auto (Unsp spec) [#/Vol] 2.37 10*3/uL 0.83-4.51 [facility] Work Phone: Basophil percentageon 2021 Basophils/100 WBC (Bld) 0.3 % 0-[address] [facility] Work Phone: [phone] Bilirubin [Mass/Vol] 0.50 mg/dL 0.20-1.00 [facility] Work Phone: [phone] Comment on above: For patients on eltr ombopag therapy, use of Dimension [place] TBIL is not recommended. Chloride [Moles/Vol] 106 mmol/L 98-107 [facility] Work Phone: [phone] Eosinophils/100 WBC (Bld) 1.0 % 0-5 [facility] Work Phone: Glucose [Mass/Vol] 91 mg/dL 74-106 [facility] Work Phone: [phone] Neutrophils (Bld) [#/Vol] 9.3 10*3/uL 2.0-7.7 [facility] Work Phone: Neutrophils/100 WBC (Bld) 71.3 % 47-70 [facility] Work Phone: [phone] Potassium [Moles/Vol] 3.9 mmol/L 3.5-5.1 [facility] Work Phone: [phone] Comment on above: Moderate Hemolysis, Result may be falsely increased. Protein [Mass/Vol] 5.4 g/dL 6.4-8.2 [facility] Work Phone: [phone] Sodium [Moles/Vol] 138 mmol/L 136-145 [place] Work Phone: WBC (Bld) [#/Vol] 13.0 10*3/uL 4.4-11.0 [facility] Work Phone: Blood erythrocytes count (nu mber/volume)on 01-19-2022 RBC (Bld) [#/Vol] 4.76 10*6/uL 4.2-5.4 [facility] Work Phone: Blood hemoglobin measurement (mass/volume)on 01-19-2022 Hemoglobin (Bld) [Mass/Vol] 13.4 g/dL 12.0-15.0 [facility] Work Phone: Blood lymphocytes/100 leukoc yteson 01-19-2022 Lymphocytes/100 WBC (Bld) 18.3 % 19-41 [facility] Work Phone: Blood monocytes/100 leukocyt eson 01-19-2022 Monocytes/100 WBC (Bld) 8.7 % 0-[address] [facility] Work Phone: Blood platelet mean volumeon 01-19-2022 Platelet mean volume (Bld) [Entitic vol] 9.8 fL 6.2-12.0 [facility] Work Phone: C. difficile DNA DANIEL+probe Q l (Unsp spec)on 01-19-2022 C. difficile GDH Antigen & Toxins Toxigenic C. difficile [facility] Work Phone: Determination of erythrocyte mean corpuscular volume (MCV)on 01-19-2022 MCV (RBC) [Entitic vol] 87.2 fL 81-[address] [facility] Work Phone: Hematocrit Auto (Bld) [Volum e fraction]on 01-19-2022 Hematocrit (Bld) [Volume fraction] 41.5 % 37-47 [facility] Work Phone: Laboratory - Chemistry and C hemistry - challengeon 01-19-2022 ALP [Catalytic activity/Vol] 72 U/L 45-117 [facility] Work Phone: ALT [Catalytic activity/Vol] 20 U/L 13-56 [facility] Work Phone: CO2 [Moles/Vol] 27.0 mmol/L 21.0-32.0 [facility] Work Phone: Globulin (S) [Mass/Vol] 3.4 g/dL 2.2-4.[address] [facility] Work Phone: Urea nitrogen/Creatinine [Mass ratio] 18.6 mg/mg 10-20 [facility] Work Phone: [phone] Laboratory - Hematology and Cell countson 01-19-2022 Erythrocyte distribution width (RBC) [Entitic vol] 55.1 fL 35.1-43.9 [facility] Work Phone: Erythrocyte distribution width (RBC) [Ratio] 17.1 % 11.6-14.6 [facility] Work Phone: Immature granulocytes/100 WBC (Bld) 0.400 % 0.0-0.9 [facility] Work Phone: Comment on above: IG% - Immature Granu locytes (promyelocytes, myelocytes and metamyelocytes) > 1% indicates that a LEFT SHIFT is Present. MCH (RBC) [Entitic mass] 28.2 pg 27.0-32.0 [facility] Work Phone: Nucleated RBC/100 WBC (Bld) [Ratio] 0 % 0-5 [facility] Work Phone: MCHC Auto (RBC) [Mass/Vol]on 01-19-2022 MCHC (RBC) [Mass/Vol] 32.3 g/dL 32-36 [facility] Work Phone: No Panel Informationon 01-19 Enteric Bacteriology [facility] Work Phone: [phone] Estimated Creatinine Clearance Calc 42.39 ml/min [facility] Work Phone: Estimated GFR (MDRD) Amer 214 mL/min >60 [facility] Work Phone: Comment on above: GFR Calc Estimated GFR (MDRD) Non-Af Amer 177 mL/min >60 [facility] Work Phone: Comment on above: Non- GFR Calc Platelets bldon 01-19-2022 Platelets (Bld) [#/Vol] 266 10*3/uL 150-450 [facility] Work Phone: Serum or plasma albumin zeinab urement (mass/volume)on 01-19-2022 Albumin [Mass/Vol] 2.0 g/dL 3.2-5.0 [facility] Work Phone: Serum or plasma albumin/glob ulin mass ratioon 01-19-2022 Albumin/Globulin [Mass ratio] 0.6 {ratio} 0.9-2.4 [facility] Work Phone: Serum or plasma calcium zeinab urement (mass/volume)on 01-19-2022 Calcium [Mass/Vol] 8.6 mg/dL 8.5-10.1 [facility] Work Phone: Serum or plasma creatinine m easurement (mass/volume)on 01-19-2022 Creatinine [Mass/Vol] 0.38 mg/dL 0.55-1.02 [facility] Work Phone: Comment on above: The validity of the calculated GFR & GFRAA in patients over 70 years has not been determined. Clinical correlation is essential. Serum or plasma urea nitroge n measurement (mass/volume)on 01-19-2022 Urea nitrogen [Mass/Vol] 7 mg/dL 7-18 [facility] Work Phone: Thin prep Papanicolaou smear with manual screeningon 01-19-2022 Thin prep Papanicolaou smear with manual screening 36 U/L 15-37 [facility] Work Phone: Comment on above: Moderate Hemolysis, Result may be falsely increased. Thin prep Papanicolaou smear with manual screening 5 5-15 [facility] Work Phone: Vancomycin troughon 10-11-20 Vancomycin trough [Mass/Vol] 16.0 ug/mL 5.0-15.0 [facility] Work Phone: Comment on above: VANCOMYCIN STANDARED DRUG THERAPY TROUGH LEVEL: 5.0 - 15.0 mg/L VANCOMYCIN HIGH INTENSITY THERAPY TROUGH LEVEL: 15.0 - 20.0 mg/L High Intensity therapy recommended for serious lifethreatening infections include:- Xvaoiejqaa-Vveepdjeojfp-Ttqpxedwy (Ventilator/Healtcare Associated)-Sepsis PLEASE CONTACT PHARMACY SERVICES (#[phone]) FOR INTERPRETATIONOF RESULTS. Absolute lymphocyte counton 10-10-2021 Lymphocytes Auto (Unsp spec) [#/Vol] 1.92 10*3/uL 0.83-4.51 [facility] Work Phone: Basophil percentageon 2020 Bilirubin [Mass/Vol] 0.40 mg/dL 0.20-1.00 [facility] Work Phone: Comment on above: For patients on eltr ombopag therapy, use of Dimension [place] TBIL is not recommended. Chloride [Moles/Vol] 110 mmol/L 98-107 [facility] Work Phone: Eosinophils/100 WBC (Bld) 5.7 % 0-5 [facility] Work Phone: Glucose [Mass/Vol] 85 mg/dL 74-106 [facility] Work Phone: Comment on above: Please note revised GLUCOSE reference range effective 2017. Neutrophils (Bld) [#/Vol] 13.5 10*3/uL 2.0-7.7 [facility] Work Phone: Potassium [Moles/Vol] 3.4 mmol/L 3.5-5.1 [facility] Work Phone: [phone] Protein [Mass/Vol] 5.3 g/dL 6.4-8.2 [facility] Work Phone: Sodium [Moles/Vol] 142 mmol/L 136-145 [facility] Work Phone: WBC (Bld) [#/Vol] 17.3 10*3/uL 4.4-11.0 [facility] Work Phone: Blood erythrocytes count (nu mber/volume)on 10-10-2021 RBC (Bld) [#/Vol] 3.34 10*6/uL 4.2-5.4 [facility] Work Phone: Blood hemoglobin measurement (mass/volume)on 10-10-2021 Hemoglobin (Bld) [Mass/Vol] 9.2 g/dL 12.0-15.0 [facility] Work Phone: Blood hypersegmented neutrop hil counton 10-10-2021 Neutrophils.hypersegment ed (Bld) [#/Vol] 1+ [facility] Work Phone: Blood lymphocytes/100 leukoc yteson 10-10-2021 Lymphocytes/100 WBC (Bld) 11.1 % 19-41 [facility] Work Phone: Blood monocytes/100 leukocyt eson 10-10-2021 Monocytes/100 WBC (Bld) 4.4 % 0-[address] [facility] Work Phone: Blood platelet mean volumeon 10-10-2021 Platelet mean volume (Bld) [Entitic vol] 9.6 fL 6.2-12.0 [facility] Work Phone: Determination of erythrocyte mean corpuscular volume (MCV)on 10-10-2021 MCV (RBC) [Entitic vol] 86.5 fL 81-[address] [facility] Work Phone: Hematocrit Auto (Bld) [Volum e fraction]on 10-10-2021 Hematocrit (Bld) [Volume fraction] 28.9 % 37-47 [facility] Work Phone: Laboratory - Chemistry and C hemistry - challengeon 10-10-2021 ALP [Catalytic activity/Vol] 67 U/L 45-117 [facility] Work Phone: ALT [Catalytic activity/Vol] 32 U/L 13-56 [facility] Work Phone: [phone] CO2 [Moles/Vol] 25.0 mmol/L 21.0-32.0 [facility] Work Phone: Globulin (S) [Mass/Vol] 3.9 g/dL 2.2-4.[address] [facility] Work Phone: Urea nitrogen/Creatinine [Mass ratio] 25.4 mg/mg 10-20 [facility] Work Phone: Laboratory - Hematology and Cell countson 10-10-2021 Basophils/100 WBC (Unsp spec) 0.2 % 0-1 [facility] Work Phone: Erythrocyte distribution width (RBC) [Entitic vol] 55.4 fL 35.1-43.9 [facility] Work Phone: Erythrocyte distribution width (RBC) [Ratio] 17.3 % 11.6-14.6 [facility] Work Phone: Immature granulocytes/100 WBC (Bld) 0.500 % 0.0-0.9 [facility] Work Phone: Comment on above: IG% - Immature Granu locytes (promyelocytes, myelocytes and metamyelocytes) > 1% indicates that a LEFT SHIFT is Present. MCH (RBC) [Entitic mass] 27.5 pg 27.0-32.0 [facility] Work Phone: Neutrophils/100 WBC (Bld) 78.1 % 47-70 [facility] Work Phone: Nucleated RBC/100 WBC (Bld) [Ratio] 0 % 0-5 [facility] Work Phone: MCHC Auto (RBC) [Mass/Vol]on 10-10-2021 MCHC (RBC) [Mass/Vol] 31.8 g/dL 32-36 [facility] Work Phone: No Panel Informationon 10-10 Estimated Creatinine Clearance Calc 42.39 ml/min [facility] Work Phone: Estimated GFR (MDRD) Amer 366 mL/min >60 [facility] Work Phone: Comment on above: GFR Calc Estimated GFR (MDRD) Non-Af Amer 302 mL/min >60 [facility] Work Phone: Comment on above: Non- GFR Calc Platelets bldon 10-10-2021 Platelets (Bld) [#/Vol] 331 10*3/uL 150-450 [facility] Work Phone: Review by pathologiston 09-21 Pathologist review Chandrakant (Unsp spec) [Interp] Reviewed [facility] Work Phone: Comment on above: Previous reported re sult: Deanna humphrey Edited by: RGOCHULA on 10/11/21:0950Neutrophilic leukocytosis.Normocytic anemia.Clinical correlation suggested.Nathaniel Pepper D.O. 10/11/21 AMENDED REPORT 10/11/21 0950 PATH REV previously reported as: February milagro Serum or plasma albumin zeinab urement (mass/volume)on 10-10-2021 Albumin [Mass/Vol] 1.4 g/dL 3.2-5.0 [facility] Work Phone: Serum or plasma albumin/glob ulin mass ratioon 10-10-2021 Albumin/Globulin [Mass ratio] 0.4 {ratio} 0.9-2.4 [facility] Work Phone: Serum or plasma calcium zeinab urement (mass/volume)on 10-10-2021 Calcium [Mass/Vol] 8.7 mg/dL 8.5-10.1 [facility] Work Phone: Serum or plasma creatinine m easurement (mass/volume)on 10-10-2021 Creatinine [Mass/Vol] 0.24 mg/dL 0.55-1.02 [facility] Work Phone: Comment on above: The validity of the calculated GFR & GFRAA in patients over 70 years has not been determined. Clinical correlation is essential. Serum or plasma urea nitroge n measurement (mass/volume)on 10-10-2021 Urea nitrogen [Mass/Vol] 6 mg/dL 7-18 [facility] Work Phone: Thin prep Papanicolaou smear with manual screeningon 10-10-2021 Thin prep Papanicolaou smear with manual screening 39 U/L 15-37 [facility] Work Phone: Thin prep Papanicolaou smear with manual screening 7 5-15 [facility] Work Phone: No Panel Informationon 10-08 Atypical Lymphocytes RARE % [facility] Work Phone: Bacteria identified Anaer cx Nom (Unsp spec)on 10-07-2021 Anaerobic microbial culture No anaerobic bacteria isolated. [facility] Work Phone: Bacteria identified Cx Nom ( Wound)on 10-07-2021 Wound Culture Klebsiella oxytoca [facility] Work Phone: Wound Culture Staphylococcus haemolyticus [facility] Work Phone: Wound Culture Corynebacterium striatum [facility] Work Phone: Basophil percentageon 2020 Basophil percentage 5-10 SEEN /hpf [facility] Work Phone: Lactate [Moles/Vol] 1.0 mmol/L 0.4-2.0 [facility] Work Phone: Bilirubin Test strip Ql (U)o n 10-07-2021 Bilirubin Ql (U) Negative Negative [facility] Work Phone: Culture, urineon 10-07-2021 Bacteria identified Cx Nom (U) Presumptive C albicans [facility] Work Phone: Gram stain for investigation of transfusion reactionon 10-07-2021 Microscopic observation Gram stain Nom (Unsp spec) [facility] Work Phone: Ketones Test strip Ql (U)on 10-07-2021 Ketones Ql (U) Negative Negative [facility] Work Phone: Laboratory - Microbiology an d Antimicrobial susceptibilityon 10-07-2021 Bacteria identified Cx Nom (Bld) Staphylococcus epidermidis [facility] Work Phone: Mucus LM Ql (Urine sed)on Mucus Ql (Urine sed) 0 SEEN /hpf [facility] Work Phone: Nitrite Test strip Ql (U)on 10-07-2021 Nitrite Ql (U) Negative Negative [facility] Work Phone: No Panel Informationon 10-07 Bacteria Detection (PCR) Staphylococcus epidermidis [facility] Work Phone: Protein Test strip Ql (U)on 10-07-2021 Protein Ql (U) 15 mg/dl Negative [facility] Work Phone: Squamous epithelial cells de tection in urine sediment by light microscopyon 10-07-2021 Epithelial cells.squamous LM Ql (Urine sed) 0 SEEN /hpf [facility] Work Phone: Urine blood detectionon 09-20 RBC Ql (U) 10 /ul Negative [facility] Work Phone: RBC Ql (U) 0 SEEN /hpf [facility] Work Phone: Urine clarityon 10-07-2021 Clarity (U) Clear Clear [facility] Work Phone: Urine color determinationon 10-07-2021 Color (U) Yellow Yellow [facility] Work Phone: Urine glucose detectionon Glucose Ql (U) Normal mg/dl Normal [facility] Work Phone: Urine leukocyte esterase det ection by dipstickon 10-07-2021 Leukocyte esterase Test strip Ql (U) 500 /ul Negative [facility] Work Phone: Urine pHon 10-07-2021 pH (U) 6.0 [pH] [facility] Work Phone: Urine sediment bacteria coun t by microscopy (number/high power field)on 10-07-2021 Bacteria LM.HPF (Urine sed) [#/Area] 0 /[HPF] None Seen [facility] Work Phone: Urine sediment yeast count b y microscopy (number/high powered field)on 10-07-2021 Yeast LM.HPF (Urine sed) [#/Area] 1 /[HPF] None Seen [facility] Work Phone: Urine specific gravity measu rementon 10-07-2021 Specific gravity (U) [Rel density] 1.015 [facility] Work Phone: Urobilinogen Auto test strip Ql (U)on 10-07-2021 Urobilinogen Ql (U) Normal mg/dl Normal [facility] Work Phone: Basic metabolic 2000 panelon 05-05-2021 Anion gap [Moles/Vol] 8 mmol/L Low 9-18 [facility] Comment on above: Order Comment: Speci men Type: BLOOD SPECIMEN Performed By: #### 2 4321-2 ####[facility] LABORATORYCLIA [id number] [place] [address] Calcium [Mass/Vol] 9.3 mg/dL Normal 8.5-10.2 [facility] Comment on above: Order Comment: Speci men Type: BLOOD SPECIMEN Performed By: #### 2 4321-2 ####[facility] LABORATORYCLIA [id number] [place] [address] Chloride [Moles/Vol] 104 mmol/L Normal 97-105 [facility] Comment on above: Order Comment: Speci men Type: BLOOD SPECIMEN Performed By: #### 2 4321-2 ####[facility] LABORATORYCLIA [id number] [place] [address] CO2 [Moles/Vol] 29 mmol/L Normal 22-30 [facility] Comment on above: Order Comment: Speci men Type: BLOOD SPECIMEN Performed By: #### 2 4321-2 ####[facility] LABORATORYCLIA [id number] [place] [address] Creatinine [Mass/Vol] 0.54 mg/dL Low 0.58-0.96 [facility] Comment on above: Order Comment: Speci men Type: BLOOD SPECIMEN Performed By: #### 2 4321-2 ####[facility] LABORATORYCLIA [id number] [place] [address] GFR/1.73 sq M.predicted MDRD (S/P/Bld) [Vol rate/Area] mL/min/{1.73_m2} Normal [facility] Comment on above: Order Comment: Speci men Type: BLOOD SPECIMEN Result Comment: >60e GFR (Estimated GFR) Units of measure: mL/min/1.73 meters squaredeGFR is derived from the reexpressed MDRD Study equation using the following parameters: serum creatinine, age, gender and race. The creatinine assay has been calibrated to be traceable to IDMS. An eGFR <60 mL/min/1.73m2 for >3 months is consistent with chronic kidney disease. Refer to KDOQI guidelines for clinical interpretation. In patients with unstable renal function, e.g. those with acute kidney injury, the eGFR may not accurately reflect actual GFR. Performed By: #### 2 4321-2 ####[facility] LABORATORYCLIA [id number] [place] [address] Glucose [Mass/Vol] 99 mg/dL Normal 74-99 [facility] Comment on above: Order Comment: Speci men Type: BLOOD SPECIMEN Result Comment: The [place] [employer] Association (ADA) provides guidance for cutoff values for fasting glucose and random glucose. The ADA defines fasting as no caloric intake for at least 8 hours. Fasting plasma glucose results between 100 to 125 mg/dL indicate increased risk for diabetes (prediabetes).Fasting plasma glucose results greater than or equal to 126 mg/dL meet the criteria for diagnosis of diabetes. In the absence of unequivocal hyperglycemia, results should be confirmed by repeat testing. In a patient with classic symptoms of hyperglycemia or hyperglycemic crisis, random plasma glucose results greater than or equal to 200 mg/dL meet the criteria for diagnosis of diabetes.Reference: Standards of Medical Care in Diabetes 2016, [place] [employer]. Diabetes Care. 2016.39(Suppl 1). Performed By: #### 2 4321-2 ####[facility]ATORYCLIA [id number] [place] [address] Potassium [Moles/Vol] 4.2 mmol/L Normal 3.7-5.1 [facility] Comment on above: Order Comment: Speci men Type: BLOOD SPECIMEN Performed By: #### 2 4321-2 ####[facility]ORATORYCLIA [id number] [place] [address] Sodium [Moles/Vol] 141 mmol/L Normal 136-144 [facility] Comment on above: Order Comment: Speci men Type: BLOOD SPECIMEN Performed By: #### 2 4321-2 ####[facility]OR[facility]ORYCLIA [id number] [place] [address] Urea nitrogen [Mass/Vol] 7 mg/dL Normal 7-21 [facility] Comment on above: Order Comment: Speci men Type: BLOOD SPECIMEN Performed By: #### 2 4321-2 ####[facility] LABORATORYCLIA [id number] [place] [address] CASE MANAGEMon 05-05-2021 CASE MANAGEM Normal [facility] CASE MGT INIT ASSESon 2020 CASE MGT INIT [facility] CBC W Auto Differential pane l (Bld)on 05-05-2021 Basophils (Bld) [#/Vol] 0.04 10*3/uL Normal <0.11 [facility] Comment on above: Order Comment: Speci men Type: BLOOD SPECIMEN Performed By: #### 5 7021-8 ####[facility]ORYCLIA [id number] [place] [address] Basophils/100 WBC (Bld) 0.4 % Normal A [facility] Comment on above: Order Comment: Speci men Type: BLOOD SPECIMEN Performed By: #### 5 7021-8 ####[facility]ORATORYCLIA [id number] [place] [address] Differential cell count method Nom (Bld) Auto Normal [facility] Comment on above: Order Comment: Speci men Type: BLOOD SPECIMEN Performed By: #### 5 7021-8 ####[facility]ORATORYCLIA [id number] [place] [address] Eosinophils (Bld) [#/Vol] 0.30 10*3/uL Normal <0.46 [facility] Comment on above: Order Comment: Speci men Type: BLOOD SPECIMEN Performed By: #### 5 7021-8 ####[facility]ATORYCLIA [id number] [place] [address] Eosinophils/100 WBC (Bld) 3.2 % Normal [facility] Comment on above: Order Comment: Speci men Type: BLOOD SPECIMEN Performed By: #### 5 7021-8 ####[facility]ORATORYCLIA [id number] [place] [address] Erythrocyte distribution width (RBC) [Ratio] 17.6 % High 11.5-15.0 [facility] Comment on above: Order Comment: Speci men Type: BLOOD SPECIMEN Performed By: #### 5 7021-8 ####[facility]ORATORYCLIA [id number] [place] [address] Hematocrit (Bld) [Volume fraction] 36.9 % Normal 36.0-46.0 [facility] Comment on above: Order Comment: Speci men Type: BLOOD SPECIMEN Performed By: #### 5 7021-8 ####[facility]ORATORYCLIA [id number] [place] [address] Hemoglobin (Bld) [Mass/Vol] 11.0 g/dL Low 11.5-15.5 [facility] Comment on above: Order Comment: Speci men Type: BLOOD SPECIMEN Performed By: #### 5 7021-8 ####[facility]ORYCLIA [id number] [place] [address] IMMATURE GRAN % 0.4 % Normal [facility] Comment on above: Order Comment: Speci men Type: BLOOD SPECIMEN Performed By: #### 5 7021-8 ####[facility]ORATORYCLIA [id number] [place] [address] IMMATURE GRAN ABS 0.04 k/uL Normal <0.10 [facility] Comment on above: Order Comment: Speci men Type: BLOOD SPECIMEN Performed By: #### 5 7021-8 ####[facility] LABORATORYCLIA [id number] [place] [address] Lymphocytes (Bld) [#/Vol] 1.83 10*3/uL Normal 1.00-4.00 [facility] Comment on above: Order Comment: Speci men Type: BLOOD SPECIMEN Performed By: #### 5 7021-8 ####[facility]ORATORYCLIA [id number] [place] [address] Lymphocytes/100 WBC (Bld) 19.5 % Normal [facility] Comment on above: Order Comment: Speci men Type: BLOOD SPECIMEN Performed By: #### 5 7021-8 ####[facility]ORATORYCLIA [id number] [place] [address] MCH (RBC) [Entitic mass] 24.9 pg Low 26.0-34.0 [facility] Comment on above: Order Comment: Speci men Type: BLOOD SPECIMEN Performed By: #### 5 7021-8 ####[facility] [facility]IA [id number] [place] [address] MCHC (RBC) [Mass/Vol] 29.8 g/dL Low 30.5-36.0 [facility] Comment on above: Order Comment: Speci men Type: BLOOD SPECIMEN Performed By: #### 5 7021-8 ####[facility]ORYCLIA [id number] [place] [address] MCV (RBC) [Entitic vol] 83.5 fL Normal 80.0-100.0 [facility] Comment on above: Order Comment: Speci men Type: BLOOD SPECIMEN Performed By: #### 5 7021-8 ####[facility]ATORYCLIA [id number] [place] [address] Monocytes (Bld) [#/Vol] 1.15 10*3/uL High <0.87 [facility] Comment on above: Order Comment: Speci men Type: BLOOD SPECIMEN Performed By: #### 5 7021-8 ####[facility]ORYCLIA [id number] [place] [address] Monocytes/100 WBC (Bld) 12.3 % Normal [facility] Comment on above: Order Comment: Speci men Type: BLOOD SPECIMEN Performed By: #### 5 7021-8 ####[facility]ORYCLIA [id number] [place] [address] Neutrophils (Bld) [#/Vol] 6.01 10*3/uL Normal 1.45-7.50 [facility] Comment on above: Order Comment: Speci men Type: BLOOD SPECIMEN Performed By: #### 5 7021-8 ####[facility]ORYCLIA [id number] [place] [address] Neutrophils/100 WBC (Bld) 64.2 % Normal [facility] Comment on above: Order Comment: Speci men Type: BLOOD SPECIMEN Performed By: #### 5 7021-8 ####[facility]ORYCLIA [id number] [place] [address] Nucleated RBC (Bld) [#/Vol] 10*3/uL Normal <0.01 [facility] Comment on above: Order Comment: Speci men Type: BLOOD SPECIMEN Performed By: #### 5 7021-8 ####[facility]ORYCLIA [id number] [place] [address] Nucleated RBC/100 WBC (Bld) [Ratio] 0.0 /100 WBC Normal 0.0 [facility] Comment on above: Order Comment: Speci men Type: BLOOD SPECIMEN Performed By: #### 5 7021-8 ####[facility]ATORYCLIA [id number] [place] [address] Platelet mean volume (Bld) [Entitic vol] 9.7 fL Normal 9.0-12.7 [facility] Comment on above: Order Comment: Speci men Type: BLOOD SPECIMEN Performed By: #### 5 7021-8 ####[facility]ORYCLIA [id number] [place] [address] Platelets (Bld) [#/Vol] 251 10*3/uL Normal 150-400 [facility] Comment on above: Order Comment: Speci men Type: BLOOD SPECIMEN Performed By: #### 5 7021-8 ####[facility]ATORYCLIA [id number] [place] [address] RBC (Bld) [#/Vol] 4.42 10*6/uL Normal 3.90-5.20 [facility] Comment on above: Order Comment: Speci men Type: BLOOD SPECIMEN Performed By: #### 5 7021-8 ####[facility]ORYCLIA [id number] [place] [address] WBC (Bld) [#/Vol] 9.37 10*3/uL Normal 3.70-11.00 [facility] Comment on above: Order Comment: Speci men Type: BLOOD SPECIMEN Performed By: #### 5 7021-8 ####[facility]ATORYCLIA [id number] [place] [address] CNDSon 05-05-2021 CNDS Normal [facility] CASE MANAGEMon 05-04-2021 CASE MANAGEM Normal [facility] CONSULTon 05-04-2021 CONSULT Normal [facility] CASE MANAGEMon 05-03-2021 CASE MANAGEM Normal [facility] CASE MANAGEM Normal [facility] CNDSon 05-03-2021 CNDS Normal [facility] CNPNon 05-03-2021 CNPN Normal [facility] CONSULTon 05-03-2021 CONSULT Normal [facility] NURSING PROGon 05-03-2021 NURSING PROG Normal [facility] Basic metabolic 2000 panelon 05-02-2021 Anion gap [Moles/Vol] 10 mmol/L Normal 9-18 [facility] Comment on above: Order Comment: Speci men Type: BLOOD SPECIMEN Performed By: #### 2 4321-2 ####[facility]ORYCLIA [id number] [place] [address] Calcium [Mass/Vol] 9.3 mg/dL Normal 8.5-10.2 [facility] Comment on above: Order Comment: Speci men Type: BLOOD SPECIMEN Performed By: #### 2 4321-2 ####[facility]ATORYCLIA [id number] [place] [address] Chloride [Moles/Vol] 104 mmol/L Normal 97-105 [facility] Comment on above: Order Comment: Speci men Type: BLOOD SPECIMEN Performed By: #### 2 4321-2 ####[facility]ATORYCLIA [id number] [place] [address] CO2 [Moles/Vol] 27 mmol/L Normal 22-30 [facility] Comment on above: Order Comment: Speci men Type: BLOOD SPECIMEN Performed By: #### 2 4321-2 ####[facility]ORYCLIA [id number] [place] [address] Creatinine [Mass/Vol] 0.56 mg/dL Low 0.58-0.96 [facility] Comment on above: Order Comment: Speci men Type: BLOOD SPECIMEN Performed By: #### 2 4321-2 ####[facility]ATORYCLIA [id number] [place] [address] GFR/1.73 sq M.predicted MDRD (S/P/Bld) [Vol rate/Area] mL/min/{1.73_m2} Normal [facility] Comment on above: Order Comment: Speci men Type: BLOOD SPECIMEN Result Comment: >60e GFR (Estimated GFR) Units of measure: mL/min/1.73 meters squaredeGFR is derived from the reexpressed MDRD Study equation using the following parameters: serum creatinine, age, gender and race. The creatinine assay has been calibrated to be traceable to IDMS. An eGFR <60 mL/min/1.73m2 for >3 months is consistent with chronic kidney disease. Refer to KDOQI guidelines for clinical interpretation. In patients with unstable renal function, e.g. those with acute kidney injury, the eGFR may not accurately reflect actual GFR. Performed By: #### 2 4321-2 ####[facility]ATORYCLIA [id number] [place] [address] Glucose [Mass/Vol] 114 mg/dL High 74-99 [facility] Comment on above: Order Comment: Speci men Type: BLOOD SPECIMEN Result Comment: The [place] Diabetes [employer] (ADA) provides guidance for cutoff values for fasting glucose and random glucose. The ADA defines fasting as no caloric intake for at least 8 hours. Fasting plasma glucose results between 100 to 125 mg/dL indicate increased risk for diabetes (prediabetes).Fasting plasma glucose results greater than or equal to 126 mg/dL meet the criteria for diagnosis of diabetes. In the absence of unequivocal hyperglycemia, results should be confirmed by repeat testing. In a patient with classic symptoms of hyperglycemia or hyperglycemic crisis, random plasma glucose results greater than or equal to 200 mg/dL meet the criteria for diagnosis of diabetes.Reference: Standards of Medical Care in Diabetes 2016, [place] [employer]. Diabetes Care. 2016.39(Suppl 1). Performed By: #### 2 4321-2 ####[facility]ATORYCLIA [id number] [place] [address] Potassium [Moles/Vol] 3.9 mmol/L Normal 3.7-5.1 [facility] Comment on above: Order Comment: Speci men Type: BLOOD SPECIMEN Performed By: #### 2 4321-2 ####[facility]ORYCLIA [id number] [place] [address] Sodium [Moles/Vol] 141 mmol/L Normal 136-144 [facility] Comment on above: Order Comment: Speci men Type: BLOOD SPECIMEN Performed By: #### 2 4321-2 ####[facility]ORYCLIA [id number] [place] [address] Urea nitrogen [Mass/Vol] 8 mg/dL Normal 7-21 [facility] Comment on above: Order Comment: Speci men Type: BLOOD SPECIMEN Performed By: #### 2 4321-2 ####[facility]ORYCLIA [id number] [place] [address] CASE MGT INIT ASSESon 2020 CASE MGT INIT ASSES Normal [facility] CBC panel Auto (Bld)on 05-02 Erythrocyte distribution width (RBC) [Ratio] 18.5 % High 11.5-15.0 [facility] Comment on above: Order Comment: Speci men Type: BLOOD SPECIMEN Performed By: #### 5 8410-2 ####[facility]ATORYCLIA [id number] [place] [address] Hematocrit (Bld) [Volume fraction] 36.8 % Normal 36.0-46.0 [facility] Comment on above: Order Comment: Speci men Type: BLOOD SPECIMEN Performed By: #### 5 8410-2 ####[facility]ATORYCLIA [id number] [place] [address] Hemoglobin (Bld) [Mass/Vol] 11.6 g/dL Normal 11.5-15.5 [facility] Comment on above: Order Comment: Speci men Type: BLOOD SPECIMEN Performed By: #### 5 8410-2 ####[facility]ATORYCLIA [id number] [place] [address] MCH (RBC) [Entitic mass] 25.9 pg Low 26.0-34.0 [facility] Comment on above: Order Comment: Speci men Type: BLOOD SPECIMEN Performed By: #### 5 8410-2 ####[facility]ORYCLIA [id number] [place] [address] MCHC (RBC) [Mass/Vol] 31.5 g/dL Normal 30.5-36.0 [facility] Comment on above: Order Comment: Speci men Type: BLOOD SPECIMEN Performed By: #### 5 8410-2 ####[facility]ORYCLIA [id number] [place] [address] MCV (RBC) [Entitic vol] 82.1 fL Normal 80.0-100.0 [facility] Comment on above: Order Comment: Speci men Type: BLOOD SPECIMEN Performed By: #### 5 8410-2 ####[facility]ORYCLIA [id number] [place] [address] Nucleated RBC (Bld) [#/Vol] 10*3/uL Normal <0.01 [facility] Comment on above: Order Comment: Speci men Type: BLOOD SPECIMEN Performed By: #### 5 8410-2 ####[facility]ORYCLIA [id number] [place] [address] Platelet mean volume (Bld) [Entitic vol] 9.6 fL Normal 9.0-12.7 [facility] Comment on above: Order Comment: Speci men Type: BLOOD SPECIMEN Performed By: #### 5 8410-2 ####[facility]ORYCLIA [id number] [place] [address] Platelets (Bld) [#/Vol] 259 10*3/uL Normal 150-400 [facility] Comment on above: Order Comment: Speci men Type: BLOOD SPECIMEN Performed By: #### 5 8410-2 ####[facility]ORYCLIA [id number] [place] [address] RBC (Bld) [#/Vol] 4.48 10*6/uL Normal 3.90-5.20 [facility] Comment on above: Order Comment: Speci men Type: BLOOD SPECIMEN Performed By: #### 5 8410-2 ####[facility]ORYCLIA [id number] [place] [address] WBC (Bld) [#/Vol] 10.25 10*3/uL Normal 3.70-11.00 [facility] Comment on above: Order Comment: Speci men Type: BLOOD SPECIMEN Performed By: #### 5 8410-2 ####[facility]ATORYCLIA [id number] [place] [address] CONSULT PROGon 05-02-2021 CONSULT PROG Normal [facility] ED NOTEon 05-02-2021 ED NOTE HNO ID: [id number] Author: Leif Cervantes RN Service: Emergency Medicine Author Type: Registered Nurse Type: ED Notes Filed: 05/01/2021 10:39 PM Note Text: Report called to [place]. Normal [facility] HISTORY PHYSICALon 1 HISTORY PHYSICAL Normal [facility] STAPH AUREUS PCRon 1 S. aureus and MRSA panel DANIEL+probe (Nose) Normal Negative [facility] Comment on above: Order Comment: Speci men Type: SWAB OF INTERNAL NOSE Result Comment: Nega tive for Staphylococcus aureus by PCR.Negative for MRSA by PCR Performed By: #### S APCR ####[facility]ATORYCLIA [id number] [place] [address] ALLIED HEALTHon 05-01-2021 ALLIED HEALTH Normal [facility] Bacteria Bld Culton 05-01-20 21 Bacteria identified Cx Nom (Bld) CULTURE, BLOOD: No growth 5 days Normal [facility] Comment on above: Performed By: #### 6 00-7 ####[facility]ORYCLIA [id number] [place] [address] Bacteria identified Cx Nom (Bld) CULTURE, BLOOD: No growth 5 days Normal [facility] Comment on above: Performed By: #### 6 00-7 ####[facility]ORYCLIA [id number] [place] [address] Bacteria Ur Culton 1 Bacteria identified Cx Nom (U) Abnormal [facility] Comment on above: Performed By: #### 6 30-4 ####[facility]ORYCLIA [id number] [place] [address] CBC W Auto Differential pane l (Bld)on 05-01-2021 Basophils/100 WBC (Bld) 1.0 % Normal A [facility] Comment on above: Order Comment: Speci men Type: BLOOD SPECIMEN Performed By: #### 5 7021-8 ####[facility]ORYCLIA [id number] [place] [id number] Differential cell count method Nom (Bld) Manual Normal [facility] Comment on above: Order Comment: Speci men Type: BLOOD SPECIMEN Performed By: #### 5 7021-8 ####[facility]ORYCLIA [id number] [place] [address] Eosinophils (Bld) [#/Vol] 0.38 10*3/uL Normal <0.46 [facility] Comment on above: Order Comment: Speci men Type: BLOOD SPECIMEN Performed By: #### 5 7021-8 ####[facility]ORYCLIA [id number] [place] [address] Eosinophils/100 WBC (Bld) 3.0 % Normal [facility] Comment on above: Order Comment: Speci men Type: BLOOD SPECIMEN Performed By: #### 5 7021-8 ####[facility]ORYCLIA [id number] [place] [address] Erythrocyte distribution width (RBC) [Ratio] 18.3 % High 11.5-15.0 [facility] Comment on above: Order Comment: Speci men Type: BLOOD SPECIMEN Performed By: #### 5 7021-8 ####[facility]ORYCLIA [id number] [place] [address] Hematocrit (Bld) [Volume fraction] 37.7 % Normal 36.0-46.0 [facility] Comment on above: Order Comment: Speci men Type: BLOOD SPECIMEN Performed By: #### 5 7021-8 ####[facility]ORYCLIA [id number] [place] [address] Hemoglobin (Bld) [Mass/Vol] 11.7 g/dL Normal 11.5-15.5 [facility] Comment on above: Order Comment: Speci men Type: BLOOD SPECIMEN Performed By: #### 5 7021-8 ####[facility]ORYCLIA [id number] [place] [address] Lymphocytes (Bld) [#/Vol] 1.38 10*3/uL Normal 1.00-4.00 [facility] Comment on above: Order Comment: Speci men Type: BLOOD SPECIMEN Performed By: #### 5 7021-8 ####[facility]ORYCLIA [id number] [place] [address] Lymphocytes/100 WBC (Bld) 11.0 % Normal [facility] Comment on above: Order Comment: Speci men Type: BLOOD SPECIMEN Performed By: #### 5 7021-8 ####[facility]ORYCLIA [id number] [place] [address] MCH (RBC) [Entitic mass] 25.5 pg Low 26.0-34.0 [facility] Comment on above: Order Comment: Speci men Type: BLOOD SPECIMEN Performed By: #### 5 7021-8 ####[facility]ORYCLIA [id number] [place] [address] MCHC (RBC) [Mass/Vol] 31.0 g/dL Normal 30.5-36.0 [facility] Comment on above: Order Comment: Speci men Type: BLOOD SPECIMEN Performed By: #### 5 7021-8 ####[facility]ORYCLIA [id number] [place] [address] MCV (RBC) [Entitic vol] 82.3 fL Normal 80.0-100.0 [facility] Comment on above: Order Comment: Speci men Type: BLOOD SPECIMEN Performed By: #### 5 7021-8 ####[facility]ORYCLIA [id number] [place] [address] Neutrophils (Bld) [#/Vol] 9.77 10*3/uL High 1.45-7.50 [facility] Comment on above: Order Comment: Speci men Type: BLOOD SPECIMEN Performed By: #### 5 7021-8 ####[facility]ORYCLIA [id number] [place] [address] Neutrophils/100 WBC (Bld) 78.0 % Normal [facility] Comment on above: Order Comment: Speci men Type: BLOOD SPECIMEN Performed By: #### 5 7021-8 ####[facility]ORYCLIA [id number] [place] [address] Nucleated RBC/100 WBC (Bld) [Ratio] 0.0 /100 WBC Normal 0.0 [facility] Comment on above: Order Comment: Speci men Type: BLOOD SPECIMEN Performed By: #### 5 7021-8 ####[facility]ORYCLIA [id number] [place] [address] Ovalocytes LM Ql (Bld) Few Normal [facility] Comment on above: Order Comment: Speci men Type: BLOOD SPECIMEN Performed By: #### 5 7021-8 ####[facility]ORYCLIA [id number] [place] [address] PLATELET ESTIMATE Adequate Normal [facility] Comment on above: Order Comment: Speci men Type: BLOOD SPECIMEN Performed By: #### 5 7021-8 ####[facility]ORYCLIA [id number] [place] [address] Platelet mean volume (Bld) [Entitic vol] 10.3 fL Normal 9.0-12.7 [facility] Comment on above: Order Comment: Speci men Type: BLOOD SPECIMEN Performed By: #### 5 7021-8 ####[facility]ORYCLIA [id number] [place] [address] Platelets (Bld) [#/Vol] 279 10*3/uL Normal 150-400 [facility] Comment on above: Order Comment: Speci men Type: BLOOD SPECIMEN Performed By: #### 5 7021-8 ####[facility]ORYCLIA [id number] [place] [address] Polychromasia LM Ql (Bld) Slight Normal [facility] Comment on above: Order Comment: Speci men Type: BLOOD SPECIMEN Performed By: #### 5 7021-8 ####[facility]ORYCLIA [id number] [place] [address] RBC (Bld) [#/Vol] 4.58 10*6/uL Normal 3.90-5.20 [facility] Comment on above: Order Comment: Speci men Type: BLOOD SPECIMEN Performed By: #### 5 7021-8 ####[facility]ORYCLIA [id number] [place] [address] RED CELL MORPH Reviewed Normal [facility] Comment on above: Order Comment: Speci men Type: BLOOD SPECIMEN Performed By: #### 5 7021-8 ####[facility]ORYCLIA [id number] [place] [address] WAM - ABS BASO 0.13 k/uL High <0.11 [facility] Comment on above: Order Comment: Speci men Type: BLOOD SPECIMEN Performed By: #### 5 7021-8 ####[facility]ORYCLIA [id number] [place] [address] WAM - ABS MONO 0.88 k/uL High <0.87 [facility] Comment on above: Order Comment: Speci men Type: BLOOD SPECIMEN Performed By: #### 5 7021-8 ####[facility]ORYCLIA [id number] [place] [address] WAM - MONO% 7.0 % Normal [facility] Comment on above: Order Comment: Speci men Type: BLOOD SPECIMEN Performed By: #### 5 7021-8 ####[facility]ORYCLIA [id number] [place] [address] WAM ABSOLUTE NRBC <0.01 Normal <0.01 [facility] Comment on above: Order Comment: Speci men Type: BLOOD SPECIMEN Performed By: #### 5 7021-8 ####[facility]ORYCLIA [id number] [place] [address] WBC (Bld) [#/Vol] 12.53 10*3/uL High 3.70-11.00 [facility] Comment on above: Order Comment: Speci men Type: BLOOD SPECIMEN Performed By: #### 5 7021-8 ####[facility]ORYCLIA [id number] [place] [address] CNPNon 05-01-2021 CNPN Normal [facility] Comprehensive metabolic 2000 panelon 05-01-2021 Albumin [Mass/Vol] 3.0 g/dL Low 3.9-4.9 [facility] Comment on above: Order Comment: Speci men Type: BLOOD SPECIMEN Performed By: #### 1 9123-9, 82246-7 ####[facility]ORYCLIA [id number] [place] [address] ALP [Catalytic activity/Vol] 89 U/L Normal 34-123 [facility] Comment on above: Order Comment: Speci men Type: BLOOD SPECIMEN Performed By: #### 1 9123-9, 82513-8 ####[facility]ORYCLIA [id number] [place] [address] ALT With P-5'-P [Catalytic activity/Vol] 29 U/L Normal 7-38 [facility] Comment on above: Order Comment: Speci men Type: BLOOD SPECIMEN Performed By: #### 1 9123-9, ####[facility]ORYCLIA [id number] [place] [address] Anion gap [Moles/Vol] 10 mmol/L Normal 9-18 [facility] Comment on above: Order Comment: Speci men Type: BLOOD SPECIMEN Performed By: #### 1 9122-9, ####[facility]ORYCLIA [id number] [place] [address] AST With P-5'-P [Catalytic activity/Vol] 34 U/L Normal 13-35 [facility] Comment on above: Order Comment: Speci men Type: BLOOD SPECIMEN Performed By: #### 1 9, ####[facility]ORYCLIA [id number] [place] [address] Bilirubin [Mass/Vol] 0.5 mg/dL Normal 0.2-1.3 [facility] Comment on above: Order Comment: Speci men Type: BLOOD SPECIMEN Performed By: #### 1 23-9, ####[facility]ORYCLIA [id number] [place] [address] Calcium [Mass/Vol] 8.9 mg/dL Normal 8.5-10.2 [facility] Comment on above: Order Comment: Speci men Type: BLOOD SPECIMEN Performed By: #### 1 23-9, ####[facility]ORYCLIA [id number] [place] [address] Chloride [Moles/Vol] 102 mmol/L Normal 97-105 [facility] Comment on above: Order Comment: Speci men Type: BLOOD SPECIMEN Performed By: #### 1 9123-06, ####[facility]ORYCLIA [id number] [place] [address] CO2 [Moles/Vol] 26 mmol/L Normal 22-30 [facility] Comment on above: Order Comment: Speci men Type: BLOOD SPECIMEN Performed By: #### 1 9123-9, 73628-5 ####[facility]ORYCLIA [id number] [place] [address] Creatinine [Mass/Vol] 0.61 mg/dL Normal 0.58-0.96 [facility] Comment on above: Order Comment: Speci men Type: BLOOD SPECIMEN Performed By: #### 1 9123-9, ####[facility]ATORYCLIA [id number] [place] [address] GFR/1.73 sq M.predicted MDRD (S/P/Bld) [Vol rate/Area] mL/min/{1.73_m2} Normal [facility] Comment on above: Order Comment: Speci men Type: BLOOD SPECIMEN Result Comment: >60e GFR (Estimated GFR) Units of measure: mL/min/1.73 meters squaredeGFR is derived from the reexpressed MDRD Study equation using the following parameters: serum creatinine, age, gender and race. The creatinine assay has been calibrated to be traceable to IDMS. An eGFR <60 mL/min/1.73m2 for >3 months is consistent with chronic kidney disease. Refer to KDOQI guidelines for clinical interpretation. In patients with unstable renal function, e.g. those with acute kidney injury, the eGFR may not accurately reflect actual GFR. Performed By: #### 1 9123-9, ####[facility]ATORYCLIA [id number] [place] [address] Glucose [Mass/Vol] 105 mg/dL High 74-99 [facility] Comment on above: Order Comment: Speci men Type: BLOOD SPECIMEN Result Comment: The [place] [employer] (ADA) provides guidance for cutoff values for fasting glucose and random glucose. The ADA defines fasting as no caloric intake for at least 8 hours. Fasting plasma glucose results between 100 to 125 mg/dL indicate increased risk for diabetes (prediabetes).Fasting plasma glucose results greater than or equal to 126 mg/dL meet the criteria for diagnosis of diabetes. In the absence of unequivocal hyperglycemia, results should be confirmed by repeat testing. In a patient with classic symptoms of hyperglycemia or hyperglycemic crisis, random plasma glucose results greater than or equal to 200 mg/dL meet the criteria for diagnosis of diabetes.Reference: Standards of Medical Care in Diabetes 2016, [place] [employer]. Diabetes Care. 2016.39(Suppl 1). Performed By: #### 1 9123-9, 65564-4 ####[facility]ATORYCLIA [id number] [place] [address] Potassium [Moles/Vol] 3.9 mmol/L Normal 3.7-5.1 [facility] Comment on above: Order Comment: Speci men Type: BLOOD SPECIMEN Performed By: #### 1 9123-9, 79430-2 ####[facility]ORYCLIA [id number] [place] [address] Protein [Mass/Vol] 5.9 g/dL Low 6.3-8.0 [facility] Comment on above: Order Comment: Speci men Type: BLOOD SPECIMEN Performed By: #### 1 9123-9, 84080-8 ####[facility]ORYCLIA [id number] [place] [address] Sodium [Moles/Vol] 138 mmol/L Normal 136-144 [facility] Comment on above: Order Comment: Speci men Type: BLOOD SPECIMEN Performed By: #### 1 9123-9, 96733-0 ####[facility]ORYCLIA [id number] [place] [address] Urea nitrogen [Mass/Vol] 8 mg/dL Normal 7-21 [facility] Comment on above: Order Comment: Speci men Type: BLOOD SPECIMEN Performed By: #### 1 9123-9, 27721-7 ####[facility]ATORYCLIA [id number] [place] [address] ED NOTEon 05-01-2021 ED NOTE HNO ID: [id number] Author: Leif Cervantes RN Service: Emergency Medicine Author Type: Registered Nurse Type: ED Notes Filed: 05/01/2021 9:45 PM Note Text: Pt resting in bed Normal [facility] ED NOTE HNO ID: [id number] Author: Leif Cervantes RN Service: Emergency Medicine Author Type: Registered Nurse Type: ED Notes Filed: 05/01/2021 9:44 PM Note Text: Pt has present at bedside Normal [facility] ED NOTE HNO ID: [id number] Author: Shaun Redmond RN Service: ? Author Type: Registered Nurse Type: ED Notes Filed: 05/01/2021 6:43 PM Note Text: Ct paged for Normal [facility] ED NOTE Normal [facility] ED NOTE HNO ID: [id number] Author: Brice Obando, Devi Service: ? 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 Type: ED Notes Filed: 05/01/2021 5:45 PM Note Text: Bed: 03-ED Expected date: Expected time: Means of arrival: [place] FD Comments: Mary Jo Willoughby BFD Normal [facility] ED PROV NOTEon 05-01-2021 ED PROV NOTE Normal [facility] HIGH SENSITIVITY TROPONIN To n 05-01-2021 HIGH SENSITIVITY KANDACE 20 ng/L High <12 [facility] Comment on above: Order Comment: Speci men Type: BLOOD SPECIMEN Result Comment: When assessing risk for acute coronary syndromes: In patients undergoing blood draw greater than or equal to 2 hours from symptom onset, with history of very low to moderate risk and non-ischemic ECG, an initial hs-Troponin T less than 12 ng/L AND a 1 hour delta hs-Troponin T less than 3 ng/L should be considered very low risk for 30 day MACE. Performed By: #### H STNT ####[facility]ORATORYCLIA [id number] [place] [address] HIGH SENSITIVITY KANDACE 20 ng/L High <12 [facility] Comment on above: Order Comment: Shahabi men Type: BLOOD SPECIMEN Result Comment: When assessing risk for acute coronary syndromes: In patients undergoing blood draw greater than or equal to 2 hours from symptom onset, with history of very low to moderate risk and non-ischemic ECG, an initial hs-Troponin T less than 12 ng/L AND a 1 hour delta hs-Troponin T less than 3 ng/L should be considered very low risk for 30 day MACE. Performed By: #### H STNT ####[facility]ATORYCLIA [id number] [place] [address] HISTORY PHYSICALon 1 HISTORY PHYSICAL Normal [facility] Magnesium SerPl-mCncon 05-01 Magnesium [Mass/Vol] 1.8 mg/dL Normal 1.7-2.3 [facility] Comment on above: Order Comment: Speci men Type: BLOOD SPECIMEN Performed By: #### 1 9123-9, 83237-2 ####[facility]ORATORYCLIA [id number] [place] [address] SARS-CoV-2 RNA Resp Ql DANIEL+p robeon 05-01-2021 SARS-CoV-2 (COVID-19) RNA DANIEL+probe Ql (Resp) COVID 19 RESULT: SARS-CoV-2 (Agent of COVID-19) Not Detected by PCR. This test has been authorized by FDA under an Emergency Use Authorization (EUA) Normal [facility] Comment on above: Performed By: #### 9 4500-6 ####[facility]ORATORYCLIA [id number] [place] [id number] Urinalysis complete panel (U )on 05-01-2021 Bacteria LM.HPF (Urine sed) [#/Area] Few Abnormal None Seen [facility] Comment on above: Order Comment: Speci men Type: URINE SPECIMEN Performed By: #### 2 4356-8 ####[facility]ORATORYCLIA [id number] [place] [address] Bilirubin Ql (U) Negative Normal Negative [facility] Comment on above: Order Comment: Speci men Type: URINE SPECIMEN Performed By: #### 2 4356-8 ####[facility]ATORYCLIA [id number] [place] [address] Clarity (Unsp spec) Cloudy Abnormal Clear [facility] Comment on above: Order Comment: Speci men Type: URINE SPECIMEN Performed By: #### 2 4356-8 ####[facility]ATORYCLIA [id number] [place] [address] Color (U) Yellow Normal Yellow [facility] Comment on above: Order Comment: Speci men Type: URINE SPECIMEN Performed By: #### 2 4356-8 ####[facility]ATORYCLIA [id number] [place] [address] Epithelial cells LM.HPF (Urine sed) [#/Area] 0.1 /[HPF] Normal [facility] Comment on above: Order Comment: Speci men Type: URINE SPECIMEN Performed By: #### 2 4356-8 ####[facility]ATORYCLIA [id number] [place] [address] Glucose Test strip (U) [Mass/Vol] Negative Normal Negative [facility] Comment on above: Order Comment: Speci men Type: URINE SPECIMEN Performed By: #### 2 4356-8 ####[facility]ATORYCLIA [id number] [place] [address] Hemoglobin Ql (U) Trace Abnormal Negative [facility] Comment on above: Order Comment: Speci men Type: URINE SPECIMEN Performed By: #### 2 4356-8 ####[facility]ATORYCLIA [id number] [place] [address] Hyaline casts (Urine sed) [#/Area] 1-3 /LPF Abnormal 0 /LPF [facility] Comment on above: Order Comment: Speci men Type: URINE SPECIMEN Performed By: #### 2 4356-8 ####[facility]ORYCLIA [id number] [place] [address] Ketones Ql (U) Negative Normal Negative [facility] Comment on above: Order Comment: Speci men Type: URINE SPECIMEN Performed By: #### 2 4356-8 ####[facility]ATORYCLIA [id number] [place] [address] Leukocyte esterase Test strip Ql (U) Large Abnormal Negative [facility] Comment on above: Order Comment: Speci men Type: URINE SPECIMEN Performed By: #### 2 4356-8 ####[facility]ATORYCLIA [id number] [place] [address] Nitrite Ql (U) Positive Abnormal Negative [facility] Comment on above: Order Comment: Speci men Type: URINE SPECIMEN Performed By: #### 2 4356-8 ####[facility]ATORYCLIA [id number] [place] [address] pH (U) 7.5 [pH] Normal 5.0-8.0 [facility] Comment on above: Order Comment: Speci men Type: URINE SPECIMEN Performed By: #### 2 4356-8 ####[facility]ATORYCLIA [id number] [place] [address] Protein (U) [Mass/Vol] Negative Normal Negative [facility] Comment on above: Order Comment: Speci men Type: URINE SPECIMEN Performed By: #### 2 4356-8 ####[facility]ATORYCLIA [id number] [place] [address] RBC LM.HPF (Urine sed) [#/Area] 3-5 /HPF Abnormal 0-3 /HPF [facility] Comment on above: Order Comment: Speci men Type: URINE SPECIMEN Performed By: #### 2 4356-8 ####[facility]ATORYCLIA [id number] [place] [address] Specific gravity (U) [Rel density] <1.005 Low 1.005-1.030 [facility] Comment on above: Order Comment: Speci men Type: URINE SPECIMEN Performed By: #### 2 4356-8 ####[facility]ATORYCLIA [id number] [place] [address] Urobilinogen Ql (U) 0.2 EU/dL Normal 0.2-1.0 EU/dL [facility] Comment on above: Order Comment: Speci men Type: URINE SPECIMEN Performed By: #### 2 4356-8 ####[facility]ATORYCLIA [id number] [place] [address] WBC LM.HPF (Urine sed) [#/Area] /[HPF] Abnormal 0-5 /HPF [facility] Comment on above: Order Comment: Speci men Type: URINE SPECIMEN Performed By: #### 2 4356-8 ####[facility]ORATORYCLIA [id number] [place] [address] XR CHEST 1V FRONTALon 2020 XR CHEST 1V FRONTAL Normal [facility] Basic metabolic 2000 panelon 04-18-2021 Anion gap [Moles/Vol] 7 mmol/L Low 9-18 [facility] Comment on above: Order Comment: Speci men Type: BLOOD SPECIMEN Performed By: #### 2 4321-2 ####[facility]ORATORYCLIA [id number] [place] [address] Calcium [Mass/Vol] 9.2 mg/dL Normal 8.5-10.2 [facility] Comment on above: Order Comment: Speci men Type: BLOOD SPECIMEN Performed By: #### 2 4321-2 ####[facility]ATORYCLIA [id number] [place] [address] Chloride [Moles/Vol] 107 mmol/L High 97-105 [facility] Comment on above: Order Comment: Speci men Type: BLOOD SPECIMEN Performed By: #### 2 4321-2 ####[facility]ATORYCLIA [id number] [place] [address] CO2 [Moles/Vol] 26 mmol/L Normal 22-30 [facility] Comment on above: Order Comment: Speci men Type: BLOOD SPECIMEN Performed By: #### 2 4321-2 ####[facility]ATORYCLIA [id number] [place] [address] Creatinine [Mass/Vol] 0.48 mg/dL Low 0.58-0.96 [facility] Comment on above: Order Comment: Speci men Type: BLOOD SPECIMEN Performed By: #### 2 4321-2 ####[facility]ORATORYCLIA [id number] [place] [address] GFR/1.73 sq M.predicted MDRD (S/P/Bld) [Vol rate/Area] mL/min/{1.73_m2} Normal [facility] Comment on above: Order Comment: Speci men Type: BLOOD SPECIMEN Result Comment: >60e GFR (Estimated GFR) Units of measure: mL/min/1.73 meters squaredeGFR is derived from the reexpressed MDRD Study equation using the following parameters: serum creatinine, age, gender and race. The creatinine assay has been calibrated to be traceable to IDMS. An eGFR <60 mL/min/1.73m2 for >3 months is consistent with chronic kidney disease. Refer to KDOQI guidelines for clinical interpretation. In patients with unstable renal function, e.g. those with acute kidney injury, the eGFR may not accurately reflect actual GFR. Performed By: #### 2 4321-2 ####[facility]ATORYCLIA [id number] [place] [address] Glucose [Mass/Vol] 102 mg/dL High 74-99 [facility] Comment on above: Order Comment: Speci men Type: BLOOD SPECIMEN Result Comment: The [place] Diabetes [employer] (ADA) provides guidance for cutoff values for fasting glucose and random glucose. The ADA defines fasting as no caloric intake for at least 8 hours. Fasting plasma glucose results between 100 to 125 mg/dL indicate increased risk for diabetes (prediabetes).Fasting plasma glucose results greater than or equal to 126 mg/dL meet the criteria for diagnosis of diabetes. In the absence of unequivocal hyperglycemia, results should be confirmed by repeat testing. In a patient with classic symptoms of hyperglycemia or hyperglycemic crisis, random plasma glucose results greater than or equal to 200 mg/dL meet the criteria for diagnosis of diabetes.Reference: Standards of Medical Care in Diabetes 2016, [place] [employer]. Diabetes Care. 2016.39(Suppl 1). Performed By: #### 2 4321-2 ####[facility]ORATORYCLIA [id number] [place] [address] Potassium [Moles/Vol] 4.1 mmol/L Normal 3.7-5.1 [facility] Comment on above: Order Comment: Speci men Type: BLOOD SPECIMEN Performed By: #### 2 4321-2 ####[facility]ATORYCLIA [id number] [place] [address] Sodium [Moles/Vol] 140 mmol/L Normal 136-144 [facility] Comment on above: Order Comment: Speci men Type: BLOOD SPECIMEN Performed By: #### 2 4321-2 ####[facility]ATORYCLIA [id number] [place] [address] Urea nitrogen [Mass/Vol] 7 mg/dL Normal 7- [facility] Comment on above: Order Comment: Speci men Type: BLOOD SPECIMEN Performed By: #### 2 4321-2 ####[facility]ORATORYCLIA [id number] [place] [address] CASE MANAGEMon 04-18-2021 CASE MANAGEM Normal [facility] CASE MANAGEM Normal [facility] CBC W Auto Differential pane l (Bld)on 04-18-2021 Basophils (Bld) [#/Vol] 0.09 10*3/uL Normal <0.11 [facility] Comment on above: Order Comment: Speci men Type: BLOOD SPECIMEN Performed By: #### 5 7021-8 ####[facility]ORATORYCLIA [id number] [place] [address] Basophils/100 WBC (Bld) 1.2 % Normal [facility] Comment on above: Order Comment: Speci men Type: BLOOD SPECIMEN Performed By: #### 5 7021-8 ####[facility]ORATORYCLIA [id number] [place] [address] Differential cell count method Nom (Bld) Auto Normal [facility] Comment on above: Order Comment: Speci men Type: BLOOD SPECIMEN Performed By: #### 5 7021-8 ####[facility]ATORYCLIA [id number] [place] [address] Eosinophils (Bld) [#/Vol] 10*3/uL Normal <0.46 [facility] Comment on above: Order Comment: Speci men Type: BLOOD SPECIMEN Performed By: #### 5 7021-8 ####[facility]ORATORYCLIA [id number] [place] [address] Eosinophils/100 WBC (Bld) 0.1 % Normal [facility] Comment on above: Order Comment: Speci men Type: BLOOD SPECIMEN Performed By: #### 5 7021-8 ####[facility]ORATORYCLIA [id number] [place] [address] Erythrocyte distribution width (RBC) [Ratio] 18.1 % High 11.5-15.0 [facility] Comment on above: Order Comment: Speci men Type: BLOOD SPECIMEN Performed By: #### 5 7021-8 ####[facility]ORYCLIA [id number] [place] [address] Hematocrit (Bld) [Volume fraction] 35.7 % Low 36.0-46.0 [facility] Comment on above: Order Comment: Speci men Type: BLOOD SPECIMEN Performed By: #### 5 7021-8 ####[facility]ORYCLIA [id number] [place] [address] Hemoglobin (Bld) [Mass/Vol] 10.9 g/dL Low 11.5-15.5 [facility] Comment on above: Order Comment: Speci men Type: BLOOD SPECIMEN Performed By: #### 5 7021-8 ####[facility]ORYCLIA [id number] [place] [address] IMMATURE GRAN % 1.6 % Normal [facility] Comment on above: Order Comment: Speci men Type: BLOOD SPECIMEN Performed By: #### 5 7021-8 ####[facility]ATORYCLIA [id number] [place] [address] IMMATURE GRAN ABS 0.12 k/uL High <0.10 [facility] Comment on above: Order Comment: Speci men Type: BLOOD SPECIMEN Performed By: #### 5 7021-8 ####[facility]ATORYCLIA [id number] [place] [address] Lymphocytes (Bld) [#/Vol] 1.16 10*3/uL Normal 1.00-4.00 [facility] Comment on above: Order Comment: Speci men Type: BLOOD SPECIMEN Performed By: #### 5 7021-8 ####[facility]ATORYCLIA [id number] [place] [address] Lymphocytes/100 WBC (Bld) 15.2 % Normal [facility] Comment on above: Order Comment: Speci men Type: BLOOD SPECIMEN Performed By: #### 5 7021-8 ####[facility]ORATORYCLIA [id number] [place] [address] MCH (RBC) [Entitic mass] 25.1 pg Low 26.0-34.0 [facility] Comment on above: Order Comment: Speci men Type: BLOOD SPECIMEN Performed By: #### 5 7021-8 ####[facility]ORYCLIA [id number] [place] [address] MCHC (RBC) [Mass/Vol] 30.5 g/dL Normal 30.5-36.0 [facility] Comment on above: Order Comment: Speci men Type: BLOOD SPECIMEN Performed By: #### 5 7021-8 ####[facility]ORYCLIA [id number] [place] [address] MCV (RBC) [Entitic vol] 82.1 fL Normal 80.0-100.0 [facility] Comment on above: Order Comment: Speci men Type: BLOOD SPECIMEN Performed By: #### 5 7021-8 ####[facility]ORYCLIA [id number] [place] [address] Monocytes (Bld) [#/Vol] 1.15 10*3/uL High <0.87 [facility] Comment on above: Order Comment: Speci men Type: BLOOD SPECIMEN Performed By: #### 5 7021-8 ####[facility]ORYCLIA [id number] [place] [address] Monocytes/100 WBC (Bld) 15.1 % Normal [facility] Comment on above: Order Comment: Speci men Type: BLOOD SPECIMEN Performed By: #### 5 7021-8 ####[facility]ORYCLIA [id number] [place] [address] Neutrophils (Bld) [#/Vol] 5.09 10*3/uL Normal 1.45-7.50 [facility] Comment on above: Order Comment: Speci men Type: BLOOD SPECIMEN Performed By: #### 5 7021-8 ####[facility]ATORYCLIA [id number] [place] [address] Neutrophils/100 WBC (Bld) 66.8 % Normal [facility] Comment on above: Order Comment: Speci men Type: BLOOD SPECIMEN Performed By: #### 5 7021-8 ####[facility]ORYCLIA [id number] [place] [address] Nucleated RBC (Bld) [#/Vol] 10*3/uL Normal <0.01 [facility] Comment on above: Order Comment: Speci men Type: BLOOD SPECIMEN Performed By: #### 5 7021-8 ####[facility]ORYCLIA [id number] [place] [address] Nucleated RBC/100 WBC (Bld) [Ratio] 0.0 /100 WBC Normal 0.0 [facility] Comment on above: Order Comment: Speci men Type: BLOOD SPECIMEN Performed By: #### 5 7021-8 ####[facility]ATORYCLIA [id number] [place] [address] Platelet mean volume (Bld) [Entitic vol] 9.3 fL Normal 9.0-12.7 [facility] Comment on above: Order Comment: Speci men Type: BLOOD SPECIMEN Performed By: #### 5 7021-8 ####[facility]ORYCLIA [id number] [place] [address] Platelets (Bld) [#/Vol] 483 10*3/uL High 150-400 [facility] Comment on above: Order Comment: Speci men Type: BLOOD SPECIMEN Performed By: #### 5 7021-8 ####[facility]ORYCLIA [id number] [place] [address] RBC (Bld) [#/Vol] 4.35 10*6/uL Normal 3.90-5.20 [facility] Comment on above: Order Comment: Speci men Type: BLOOD SPECIMEN Performed By: #### 5 7021-8 ####[facility]ORYCLIA [id number] [place] [address] WBC (Bld) [#/Vol] 7.62 10*3/uL Normal 3.70-11.00 [facility] Comment on above: Order Comment: Speci men Type: BLOOD SPECIMEN Performed By: #### 5 7021-8 ####[facility]ORYCLIA [id number] [place] [address] CNDSon 04-18-2021 CNDS Normal [facility] CNPNon 04-18-2021 CNPN Normal [facility] NURSING PROGon 04-18-2021 NURSING PROG Normal [facility] NURSING PROG Normal [facility] NUTRITIONon 04-18-2021 NUTRITION Normal [facility] Basic metabolic 2000 panelon 04-17-2021 Anion gap [Moles/Vol] 10 mmol/L Normal 9-18 [facility] Comment on above: Order Comment: Speci men Type: BLOOD SPECIMEN Performed By: #### 2 4321-2 ####[facility]ORYCLIA [id number] [place] [address] Calcium [Mass/Vol] 9.0 mg/dL Normal 8.5-10.2 [facility] Comment on above: Order Comment: Speci men Type: BLOOD SPECIMEN Performed By: #### 2 4321-2 ####[facility]ORYCLIA [id number] [place] [address] Chloride [Moles/Vol] 105 mmol/L Normal 97-105 [facility] Comment on above: Order Comment: Speci men Type: BLOOD SPECIMEN Performed By: #### 2 4321-2 ####[facility]ORYCLIA [id number] [place] [address] CO2 [Moles/Vol] 25 mmol/L Normal 22-30 [facility] Comment on above: Order Comment: Speci men Type: BLOOD SPECIMEN Performed By: #### 2 4321-2 ####[facility]ORYCLIA [id number] [place] [address] Creatinine [Mass/Vol] 0.48 mg/dL Low 0.58-0.96 [facility] Comment on above: Order Comment: Speci men Type: BLOOD SPECIMEN Performed By: #### 2 4321-2 ####[facility]ORYCLIA [id number] [place] [address] GFR/1.73 sq M.predicted MDRD (S/P/Bld) [Vol rate/Area] mL/min/{1.73_m2} Normal [facility] Comment on above: Order Comment: Speci [facility] Type: BLOOD SPECIMEN Result Comment: >60e GFR (Estimated GFR) Units of measure: mL/min/1.73 meters squaredeGFR is derived from the reexpressed MDRD Study equation using the following parameters: serum creatinine, age, gender and race. The creatinine assay has been calibrated to be traceable to IDMS. An eGFR <60 mL/min/1.73m2 for >3 months is consistent with chronic kidney disease. Refer to KDOQI guidelines for clinical interpretation. In patients with unstable renal function, e.g. those with acute kidney injury, the eGFR may not accurately reflect actual GFR. Performed By: #### 2 4321-2 ####[facility]ORYCLIA [id number] [place] [address] Glucose [Mass/Vol] 101 mg/dL High 74-99 [facility] Comment on above: Order Comment: [facility] Type: BLOOD SPECIMEN Result Comment: The [place] [employer] (ADA) provides guidance for cutoff values for fasting glucose and random glucose. The ADA defines fasting as no caloric intake for at least 8 hours. Fasting plasma glucose results between 100 to 125 mg/dL indicate increased risk for diabetes (prediabetes).Fasting plasma glucose results greater than or equal to 126 mg/dL meet the criteria for diagnosis of diabetes. In the absence of unequivocal hyperglycemia, results should be confirmed by repeat testing. In a patient with classic symptoms of hyperglycemia or hyperglycemic crisis, random plasma glucose results greater than or equal to 200 mg/dL meet the criteria for diagnosis of diabetes.Reference: Standards of Medical Care in Diabetes 2016, [place] [employer]. Diabetes Care. 2016.39(Suppl 1). Performed By: #### 2 4321-2 ####[facility]ORYCLIA [id number] [place] [address] Potassium [Moles/Vol] 3.9 mmol/L Normal 3.7-5.1 [facility] Comment on above: Order Comment: Speci men Type: BLOOD SPECIMEN Performed By: #### 2 4321-2 ####[facility]ORYCLIA [id number] [place] [address] Sodium [Moles/Vol] 140 mmol/L Normal 136-144 [facility] Comment on above: Order Comment: Speci men Type: BLOOD SPECIMEN Performed By: #### 2 4321-2 ####[facility]ORYCLIA [id number] [place] [address] Urea nitrogen [Mass/Vol] 8 mg/dL Normal 7-21 [facility] Comment on above: Order Comment: Speci men Type: BLOOD SPECIMEN Performed By: #### 2 4321-2 ####[facility]ORYCLIA [id number] [place] [address] CASE MANAGEMon 04-17-2021 CASE MANAGEM Normal [facility] CBC W Auto Differential pane l (Bld)on 04-17-2021 Basophils (Bld) [#/Vol] 0.10 10*3/uL Normal <0.11 [facility] Comment on above: Order Comment: Speci men Type: BLOOD SPECIMEN Performed By: #### 5 7021-8 ####[facility]ORYCLIA [id number] [place] [address] Basophils/100 WBC (Bld) 1.3 % Normal [facility] Comment on above: Order Comment: Speci men Type: BLOOD SPECIMEN Performed By: #### 5 7021-8 ####[facility]ORYCLIA [id number] [place] [address] Differential cell count method Nom (Bld) Auto Normal [facility] Comment on above: Order Comment: Speci men Type: BLOOD SPECIMEN Performed By: #### 5 7021-8 ####[facility]ORYCLIA [id number] [place] [address] Eosinophils (Bld) [#/Vol] 10*3/uL Normal <0.46 [facility] Comment on above: Order Comment: Speci men Type: BLOOD SPECIMEN Performed By: #### 5 7021-8 ####[facility]ORYCLIA [id number] [place] [address] Eosinophils/100 WBC (Bld) 0.1 % Normal [facility] Comment on above: Order Comment: Speci men Type: BLOOD SPECIMEN Performed By: #### 5 7021-8 ####[facility]ORYCLIA [id number] [place] [address] Erythrocyte distribution width (RBC) [Ratio] 17.9 % High 11.5-15.0 [facility] Comment on above: Order Comment: Speci men Type: BLOOD SPECIMEN Performed By: #### 5 7021-8 ####[facility]ORYCLIA [id number] [place] [address] Hematocrit (Bld) [Volume fraction] 35.2 % Low 36.0-46.0 [facility] Comment on above: Order Comment: Speci men Type: BLOOD SPECIMEN Performed By: #### 5 7021-8 ####[facility]ORYCLIA [id number] [place] [address] Hemoglobin (Bld) [Mass/Vol] 10.8 g/dL Low 11.5-15.5 [facility] Comment on above: Order Comment: Speci men Type: BLOOD SPECIMEN Performed By: #### 5 7021-8 ####[facility]ORYCLIA [id number] [place] [address] IMMATURE GRAN % 3.0 % Normal [facility] Comment on above: Order Comment: Speci men Type: BLOOD SPECIMEN Performed By: #### 5 7021-8 ####[facility]ORYCLIA [id number] [place] [address] IMMATURE GRAN ABS 0.24 k/uL High <0.10 [facility] Comment on above: Order Comment: Speci men Type: BLOOD SPECIMEN Performed By: #### 5 7021-8 ####[facility]ORYCLIA [id number] [place] [address] Lymphocytes (Bld) [#/Vol] 1.39 10*3/uL Normal 1.00-4.00 [facility] Comment on above: Order Comment: Speci men Type: BLOOD SPECIMEN Performed By: #### 5 7021-8 ####[facility] LABORATORYCLIA [id number] [place] [address] Lymphocytes/100 WBC (Bld) 17.4 % Normal [facility] Comment on above: Order Comment: Speci men Type: BLOOD SPECIMEN Performed By: #### 5 7021-8 ####[facility] LABORATORYCLIA [id number] [place] [address] MCH (RBC) [Entitic mass] 25.3 pg Low 26.0-34.0 [facility] Comment on above: Order Comment: Speci men Type: BLOOD SPECIMEN Performed By: #### 5 7021-8 ####[facility]ORATORYCLIA [id number] [place] [address] MCHC (RBC) [Mass/Vol] 30.7 g/dL Normal 30.5-36.0 [facility] Comment on above: Order Comment: Speci men Type: BLOOD SPECIMEN Performed By: #### 5 7021-8 ####[facility] LABORATORYCLIA [id number] [place] [address] MCV (RBC) [Entitic vol] 82.4 fL Normal 80.0-100.0 [facility] Comment on above: Order Comment: Speci men Type: BLOOD SPECIMEN Performed By: #### 5 7021-8 ####[facility] LABORATORYCLIA [id number] [place] [address] Monocytes (Bld) [#/Vol] 1.25 10*3/uL High <0.87 [facility] Comment on above: Order Comment: Speci men Type: BLOOD SPECIMEN Performed By: #### 5 7021-8 ####[facility] LABORATORYCLIA [id number] [place] [address] Monocytes/100 WBC (Bld) 15.6 % Normal [facility] Comment on above: Order Comment: Speci men Type: BLOOD SPECIMEN Performed By: #### 5 7021-8 ####[facility]ATORYCLIA [id number] [place] [address] Neutrophils (Bld) [#/Vol] 5.01 10*3/uL Normal 1.45-7.50 [facility] Comment on above: Order Comment: Speci men Type: BLOOD SPECIMEN Performed By: #### 5 7021-8 ####[facility]ORATORYCLIA [id number] [place] [address] Neutrophils/100 WBC (Bld) 62.6 % Normal [facility] Comment on above: Order Comment: Speci men Type: BLOOD SPECIMEN Performed By: #### 5 7021-8 ####[facility]ORATORYCLIA [id number] [place] [address] Nucleated RBC (Bld) [#/Vol] 10*3/uL Normal <0.01 [facility] Comment on above: Order Comment: Speci men Type: BLOOD SPECIMEN Performed By: #### 5 7021-8 ####[facility]ORATORYCLIA [id number] [place] [address] Nucleated RBC/100 WBC (Bld) [Ratio] 0.0 /100 WBC Normal 0.0 [facility] Comment on above: Order Comment: Speci men Type: BLOOD SPECIMEN Performed By: #### 5 7021-8 ####[facility]ATORYCLIA [id number] [place] [address] Platelet mean volume (Bld) [Entitic vol] 9.4 fL Normal 9.0-12.7 [facility] Comment on above: Order Comment: Speci men Type: BLOOD SPECIMEN Performed By: #### 5 7021-8 ####[facility]ATORYCLIA [id number] [place] [address] Platelets (Bld) [#/Vol] 507 10*3/uL High 150-400 [facility] Comment on above: Order Comment: Speci men Type: BLOOD SPECIMEN Performed By: #### 5 7021-8 ####[facility]ATORYCLIA [id number] [place] [address] RBC (Bld) [#/Vol] 4.27 10*6/uL Normal 3.90-5.20 [facility] Comment on above: Order Comment: Speci men Type: BLOOD SPECIMEN Performed By: #### 5 7021-8 ####[facility]ORATORYCLIA [id number] [place] [address] WBC (Bld) [#/Vol] 8.00 10*3/uL Normal 3.70-11.00 [facility] Comment on above: Order Comment: Speci men Type: BLOOD SPECIMEN Performed By: #### 5 7021-8 ####[facility] LABORATORYCLIA [id number] [place] [address] THERAPY NTon 04-17-2021 THERAPY NT Normal [facility] Basic metabolic 2000 panelon 04-16-2021 Anion gap [Moles/Vol] 11 mmol/L Normal 9-18 [facility] Comment on above: Order Comment: Speci men Type: BLOOD SPECIMEN Performed By: #### 2 4321-2 ####[facility] LABORATORYCLIA [id number] [place] [address] Calcium [Mass/Vol] 8.7 mg/dL Normal 8.5-10.2 [facility] Comment on above: Order Comment: Speci men Type: BLOOD SPECIMEN Performed By: #### 2 4321-2 ####[facility]ORATORYCLIA [id number] [place] [address] Chloride [Moles/Vol] 104 mmol/L Normal 97-105 [facility] Comment on above: Order Comment: Speci men Type: BLOOD SPECIMEN Performed By: #### 2 4321-2 ####[facility]ORATORYCLIA [id number] [place] [address] CO2 [Moles/Vol] 24 mmol/L Normal 22-30 [facility] Comment on above: Order Comment: Speci men Type: BLOOD SPECIMEN Performed By: #### 2 4321-2 ####[facility]ORATORYCLIA [id number] [place] [address] Creatinine [Mass/Vol] 0.51 mg/dL Low 0.58-0.96 [facility] Comment on above: Order Comment: Speci [facility] Type: BLOOD SPECIMEN Performed By: #### 2 4321-2 ####[facility]ORATORYCLIA [id number] [place] [address] GFR/1.73 sq M.predicted MDRD (S/P/Bld) [Vol rate/Area] mL/min/{1.73_m2} Normal [facility] Comment on above: Order Comment: Speci men Type: BLOOD SPECIMEN Result Comment: >60e GFR (Estimated GFR) Units of measure: mL/min/1.73 meters squaredeGFR is derived from the reexpressed MDRD Study equation using the following parameters: serum creatinine, age, gender and race. The creatinine assay has been calibrated to be traceable to IDMS. An eGFR <60 mL/min/1.73m2 for >3 months is consistent with chronic kidney disease. Refer to KDOQI guidelines for clinical interpretation. In patients with unstable renal function, e.g. those with acute kidney injury, the eGFR may not accurately reflect actual GFR. Performed By: #### 2 4321-2 ####[facility]ISIA [id number] [place] [address] Glucose [Mass/Vol] 98 mg/dL Normal 74-99 [facility] Comment on above: Order Comment: Speci [facility] Type: BLOOD SPECIMEN Result Comment: The [place] [employer] (ADA) provides guidance for cutoff values for fasting glucose and random glucose. The ADA defines fasting as no caloric intake for at least 8 hours. Fasting plasma glucose results between 100 to 125 mg/dL indicate increased risk for diabetes (prediabetes).Fasting plasma glucose results greater than or equal to 126 mg/dL meet the criteria for diagnosis of diabetes. In the absence of unequivocal hyperglycemia, results should be confirmed by repeat testing. In a patient with classic symptoms of hyperglycemia or hyperglycemic crisis, random plasma glucose results greater than or equal to 200 mg/dL meet the criteria for diagnosis of diabetes.Reference: Standards of Medical Care in Diabetes 2016, [place] [employer]. Diabetes Care. 2016.39(Suppl 1). Performed By: #### 2 4321-2 ####[facility] LABORATORYCLIA [id number] [place] [address] Potassium [Moles/Vol] 3.8 mmol/L Normal 3.7-5.1 [facility] Comment on above: Order Comment: Speci men Type: BLOOD SPECIMEN Performed By: #### 2 4321-2 ####[facility]ATORYCLIA [id number] [place] [address] Sodium [Moles/Vol] 139 mmol/L Normal 136-144 [facility] Comment on above: Order Comment: Speci men Type: BLOOD SPECIMEN Performed By: #### 2 4321-2 ####[facility]ORATORYCLIA [id number] [place] [address] Urea nitrogen [Mass/Vol] 8 mg/dL Normal 7-21 [facility] Comment on above: Order Comment: Speci men Type: BLOOD SPECIMEN Performed By: #### 2 4321-2 ####[facility]ORATORYCLIA [id number] [place] [address] CBC W Auto Differential pane l (Bld)on 04-16-2021 Basophils/100 WBC (Bld) 0.0 % Normal [facility] Comment on above: Order Comment: Speci men Type: BLOOD SPECIMEN Performed By: #### 5 7021-8 ####[facility]ORATORYCLIA [id number] [place] [address] Differential cell count method Nom (Bld) Manual Normal [facility] Comment on above: Order Comment: Speci men Type: BLOOD SPECIMEN Performed By: #### 5 7021-8 ####[facility]ORYCLIA [id number] [place] [address] Eosinophils (Bld) [#/Vol] 0.00 10*3/uL Normal <0.46 [facility] Comment on above: Order Comment: Speci men Type: BLOOD SPECIMEN Performed By: #### 5 7021-8 ####[facility]ORYCLIA [id number] [place] [address] Eosinophils/100 WBC (Bld) 0.0 % Normal [facility] Comment on above: Order Comment: Speci men Type: BLOOD SPECIMEN Performed By: #### 5 7021-8 ####[facility]ATORYCLIA [id number] [place] [address] Erythrocyte distribution width (RBC) [Ratio] 18.3 % High 11.5-15.0 [facility] Comment on above: Order Comment: Speci men Type: BLOOD SPECIMEN Performed By: #### 5 7021-8 ####[facility]ORATORYCLIA [id number] [place] [address] Hematocrit (Bld) [Volume fraction] 35.3 % Low 36.0-46.0 [facility] Comment on above: Order Comment: Speci men Type: BLOOD SPECIMEN Performed By: #### 5 7021-8 ####[facility]ATORYCLIA [id number] [place] [address] Hemoglobin (Bld) [Mass/Vol] 10.7 g/dL Low 11.5-15.5 [facility] Comment on above: Order Comment: Speci men Type: BLOOD SPECIMEN Performed By: #### 5 7021-8 ####[facility]ATORYCLIA [id number] [place] [address] Lymphocytes (Bld) [#/Vol] 0.79 10*3/uL Low 1.00-4.00 [facility] Comment on above: Order Comment: Speci men Type: BLOOD SPECIMEN Performed By: #### 5 7021-8 ####[facility]ATORYCLIA [id number] [place] [address] Lymphocytes/100 WBC (Bld) 9.0 % Normal [facility] Comment on above: Order Comment: Speci men Type: BLOOD SPECIMEN Performed By: #### 5 7021-8 ####[facility]ORATORYCLIA [id number] [place] [address] MCH (RBC) [Entitic mass] 24.9 pg Low 26.0-34.0 [facility] Comment on above: Order Comment: Speci men Type: BLOOD SPECIMEN Performed By: #### 5 7021-8 ####[facility]ORATORYCLIA [id number] [place] [address] MCHC (RBC) [Mass/Vol] 30.3 g/dL Low 30.5-36.0 [facility] Comment on above: Order Comment: Speci men Type: BLOOD SPECIMEN Performed By: #### 5 7021-8 ####[facility]ATORYCLIA [id number] [place] [address] MCV (RBC) [Entitic vol] 82.3 fL Normal 80.0-100.0 [facility] Comment on above: Order Comment: Speci men Type: BLOOD SPECIMEN Performed By: #### 5 7021-8 ####[facility]ORATORYCLIA [id number] [place] [address] Metamyelocytes/100 WBC (Bld) 2.0 % Normal [facility] Comment on above: Order Comment: Speci men Type: BLOOD SPECIMEN Performed By: #### 5 7021-8 ####[facility]ATORYCLIA [id number] [place] [address] MYELO% 1.0 % Normal [facility] Comment on above: Order Comment: Speci men Type: BLOOD SPECIMEN Performed By: #### 5 7021-8 ####[facility]ORYCLIA [id number] [place] [address] Neutrophils (Bld) [#/Vol] 7.19 10*3/uL Normal 1.45-7.50 [facility] Comment on above: Order Comment: Speci men Type: BLOOD SPECIMEN Performed By: #### 5 7021-8 ####[facility]ORATORYCLIA [id number] [place] [address] Neutrophils/100 WBC (Bld) 82.0 % Normal [facility] Comment on above: Order Comment: Speci men Type: BLOOD SPECIMEN Performed By: #### 5 7021-8 ####[facility]ORYCLIA [id number] [place] [address] Nucleated RBC/100 WBC (Bld) [Ratio] 0.0 /100 WBC Normal 0.0 [facility] Comment on above: Order Comment: Speci men Type: BLOOD SPECIMEN Performed By: #### 5 7021-8 ####[facility]ATORYCLIA [id number] [place] [address] PLATELET ESTIMATE Adequate Normal [facility] Comment on above: Order Comment: Speci men Type: BLOOD SPECIMEN Performed By: #### 5 7021-8 ####[facility]ORATORYCLIA [id number] [place] [address] Platelet mean volume (Bld) [Entitic vol] 9.5 fL Normal 9.0-12.7 [facility] Comment on above: Order Comment: Speci men Type: BLOOD SPECIMEN Performed By: #### 5 7021-8 ####[facility]ATORYCLIA [id number] [place] [address] Platelets (Bld) [#/Vol] 515 10*3/uL High 150-400 [facility] Comment on above: Order Comment: Speci men Type: BLOOD SPECIMEN Performed By: #### 5 7021-8 ####[facility]ORATORYCLIA [id number] [place] [address] Polychromasia LM Ql (Bld) Slight Normal [facility] Comment on above: Order Comment: Speci men Type: BLOOD SPECIMEN Performed By: #### 5 7021-8 ####[facility]ATORYCLIA [id number] [place] [address] RBC (Bld) [#/Vol] 4.29 10*6/uL Normal 3.90-5.20 [facility] Comment on above: Order Comment: Speci men Type: BLOOD SPECIMEN Performed By: #### 5 7021-8 ####[facility]ATORYCLIA [id number] [place] [address] RED CELL MORPH Reviewed Normal [facility] Comment on above: Order Comment: Speci men Type: BLOOD SPECIMEN Performed By: #### 5 7021-8 ####[facility]ATORYCLIA [id number] [place] [address] WAM - ABS BASO 0.00 k/uL Normal <0.11 [facility] Comment on above: Order Comment: Speci men Type: BLOOD SPECIMEN Performed By: #### 5 7021-8 ####[facility]ORYCLIA [id number] [place] [address] WAM - ABS MONO 0.53 k/uL Normal <0.87 [facility] Comment on above: Order Comment: Speci men Type: BLOOD SPECIMEN Performed By: #### 5 7021-8 ####[facility]ORYCLIA [id number] [place] [address] WAM - MONO% 6.0 % Normal [facility] Comment on above: Order Comment: Speci men Type: BLOOD SPECIMEN Performed By: #### 5 7021-8 ####[facility]ORYCLIA [id number] [place] [address] WAM ABSOLUTE NRBC <0.01 Normal <0.01 [facility] Comment on above: Order Comment: Speci men Type: BLOOD SPECIMEN Performed By: #### 5 7021-8 ####[facility]ORYCLIA [id number] [place] [address] WBC (Bld) [#/Vol] 8.77 10*3/uL Normal 3.70-11.00 [facility] Comment on above: Order Comment: Speci men Type: BLOOD SPECIMEN Performed By: #### 5 7021-8 ####[facility]ORYCLIA [id number] [place] [address] THERAPY NTon 04-16-2021 THERAPY NT Normal [facility] Basic metabolic 2000 panelon 04-15-2021 Anion gap [Moles/Vol] 11 mmol/L Normal 9-18 [facility] Comment on above: Order Comment: Speci men Type: BLOOD SPECIMEN Performed By: #### 2 4321-2 ####[facility]ORYCLIA [id number] [place] [address] Calcium [Mass/Vol] 9.0 mg/dL Normal 8.5-10.2 [facility] Comment on above: Order Comment: Speci men Type: BLOOD SPECIMEN Performed By: #### 2 4321-2 ####[facility]ATORYCLIA [id number] [place] [address] Chloride [Moles/Vol] 105 mmol/L Normal 97-105 [facility] Comment on above: Order Comment: Speci men Type: BLOOD SPECIMEN Performed By: #### 2 4321-2 ####[facility]ATORYCLIA [id number] [place] [address] CO2 [Moles/Vol] 23 mmol/L Normal 22-30 [facility] Comment on above: Order Comment: Speci men Type: BLOOD SPECIMEN Performed By: #### 2 4321-2 ####[facility]ATORYCLIA [id number] [place] [address] Creatinine [Mass/Vol] 0.49 mg/dL Low 0.58-0.96 [facility] Comment on above: Order Comment: Speci men Type: BLOOD SPECIMEN Performed By: #### 2 4321-2 ####[facility]ATORYCLIA [id number] [place] [address] GFR/1.73 sq M.predicted MDRD (S/P/Bld) [Vol rate/Area] mL/min/{1.73_m2} Normal [facility] Comment on above: Order Comment: Speci men Type: BLOOD SPECIMEN Result Comment: >60e GFR (Estimated GFR) Units of measure: mL/min/1.73 meters squaredeGFR is derived from the reexpressed MDRD Study equation using the following parameters: serum creatinine, age, gender and race. The creatinine assay has been calibrated to be traceable to IDMS. An eGFR <60 mL/min/1.73m2 for >3 months is consistent with chronic kidney disease. Refer to KDOQI guidelines for clinical interpretation. In patients with unstable renal function, e.g. those with acute kidney injury, the eGFR may not accurately reflect actual GFR. Performed By: #### 2 4321-2 ####[facility]ATORYCLIA [id number] [place] [address] Glucose [Mass/Vol] 106 mg/dL High 74-99 [facility] Comment on above: Order Comment: Speci men Type: BLOOD SPECIMEN Result Comment: The [place] [employer] (ADA) provides guidance for cutoff values for fasting glucose and random glucose. The ADA defines fasting as no caloric intake for at least 8 hours. Fasting plasma glucose results between 100 to 125 mg/dL indicate increased risk for diabetes (prediabetes).Fasting plasma glucose results greater than or equal to 126 mg/dL meet the criteria for diagnosis of diabetes. In the absence of unequivocal hyperglycemia, results should be confirmed by repeat testing. In a patient with classic symptoms of hyperglycemia or hyperglycemic crisis, random plasma glucose results greater than or equal to 200 mg/dL meet the criteria for diagnosis of diabetes.Reference: Standards of Medical Care in Diabetes 2016, [place] [employer]. Diabetes Care. 2016.39(Suppl 1). Performed By: #### 2 4321-2 ####[facility]ATORYCLIA [id number] [place] [address] Potassium [Moles/Vol] 4.2 mmol/L Normal 3.7-5.1 [facility] Comment on above: Order Comment: Speci men Type: BLOOD SPECIMEN Performed By: #### 2 4321-2 ####[facility]ORYCLIA [id number] [place] [address] Sodium [Moles/Vol] 139 mmol/L Normal 136-144 [facility] Comment on above: Order Comment: Speci men Type: BLOOD SPECIMEN Performed By: #### 2 4321-2 ####[facility]ORYCLIA [id number] [place] [address] Urea nitrogen [Mass/Vol] 9 mg/dL Normal 7-21 [facility] Comment on above: Order Comment: Speci men Type: BLOOD SPECIMEN Performed By: #### 2 4321-2 ####[facility]ATORYCLIA [id number] [place] [address] CASE MANAGEMon 04-15-2021 CASE MANAGEM Normal [facility] CBC W Auto Differential pane l (Bld)on 04-15-2021 Basophils/100 WBC (Bld) 0.0 % Normal [facility] Comment on above: Order Comment: Speci men Type: BLOOD SPECIMEN Performed By: #### 5 7021-8 ####[facility]ORYCLIA [id number] [place] [address] Differential cell count method Nom (Bld) Manual Normal [facility] Comment on above: Order Comment: Speci men Type: BLOOD SPECIMEN Performed By: #### 5 7021-8 ####[facility]ORYCLIA [id number] [place] [address] Eosinophils (Bld) [#/Vol] 0.00 10*3/uL Normal <0.46 [facility] Comment on above: Order Comment: Speci men Type: BLOOD SPECIMEN Performed By: #### 5 7021-8 ####[facility]ORYCLIA [id number] [place] [address] Eosinophils/100 WBC (Bld) 0.0 % Normal [facility] Comment on above: Order Comment: Speci men Type: BLOOD SPECIMEN Performed By: #### 5 7021-8 ####[facility]ORYCLIA [id number] [place] [address] Erythrocyte distribution width (RBC) [Ratio] 17.9 % High 11.5-15.0 [facility] Comment on above: Order Comment: Speci men Type: BLOOD SPECIMEN Performed By: #### 5 7021-8 ####[facility]ORYCLIA [id number] [place] [address] Hematocrit (Bld) [Volume fraction] 35.0 % Low 36.0-46.0 [facility] Comment on above: Order Comment: Speci men Type: BLOOD SPECIMEN Performed By: #### 5 7021-8 ####[facility]ORYCLIA [id number] [place] [address] Hemoglobin (Bld) [Mass/Vol] 10.9 g/dL Low 11.5-15.5 [facility] Comment on above: Order Comment: Speci men Type: BLOOD SPECIMEN Performed By: #### 5 7021-8 ####[facility]ORYCLIA [id number] [place] [address] Lymphocytes (Bld) [#/Vol] 0.82 10*3/uL Low 1.00-4.00 [facility] Comment on above: Order Comment: Speci men Type: BLOOD SPECIMEN Performed By: #### 5 7021-8 ####[facility]ORYCLIA [id number] [place] [address] Lymphocytes/100 WBC (Bld) 11.0 % Normal [facility] Comment on above: Order Comment: Speci men Type: BLOOD SPECIMEN Performed By: #### 5 7021-8 ####[facility]ORYCLIA [id number] [place] [address] MCH (RBC) [Entitic mass] 25.2 pg Low 26.0-34.0 [facility] Comment on above: Order Comment: Speci men Type: BLOOD SPECIMEN Performed By: #### 5 7021-8 ####[facility]ORYCLIA [id number] [place] [address] MCHC (RBC) [Mass/Vol] 31.1 g/dL Normal 30.5-36.0 [facility] Comment on above: Order Comment: Speci men Type: BLOOD SPECIMEN Performed By: #### 5 7021-8 ####[facility]ORYCLIA [id number] [place] [address] MCV (RBC) [Entitic vol] 80.8 fL Normal 80.0-100.0 [facility] Comment on above: Order Comment: Speci men Type: BLOOD SPECIMEN Performed By: #### 5 7021-8 ####[facility]ORYCLIA [id number] [place] [address] Metamyelocytes/100 WBC (Bld) 1.0 % Normal [facility] Comment on above: Order Comment: Speci men Type: BLOOD SPECIMEN Performed By: #### 5 7021-8 ####[facility]ORYCLIA [id number] [place] [address] MYELO% 1.0 % Normal [facility] Comment on above: Order Comment: Speci men Type: BLOOD SPECIMEN Performed By: #### 5 7021-8 ####[facility]ORYCLIA [id number] [place] [address] Neutrophils (Bld) [#/Vol] 5.60 10*3/uL Normal 1.45-7.50 [facility] Comment on above: Order Comment: Speci men Type: BLOOD SPECIMEN Performed By: #### 5 7021-8 ####[facility]ORYCLIA [id number] [place] [address] Neutrophils/100 WBC (Bld) 75.0 % Normal [facility] Comment on above: Order Comment: Speci men Type: BLOOD SPECIMEN Performed By: #### 5 7021-8 ####[facility]ORYCLIA [id number] [place] [address] Nucleated RBC/100 WBC (Bld) [Ratio] 0.0 /100 WBC Normal 0.0 [facility] Comment on above: Order Comment: Speci men Type: BLOOD SPECIMEN Performed By: #### 5 7021-8 ####[facility]ORYCLIA [id number] [place] [address] PLATELET ESTIMATE Adequate Normal [facility] Comment on above: Order Comment: Speci men Type: BLOOD SPECIMEN Performed By: #### 5 7021-8 ####[facility]ORYCLIA [id number] [place] [address] Platelet mean volume (Bld) [Entitic vol] 9.4 fL Normal 9.0-12.7 [facility] Comment on above: Order Comment: Speci men Type: BLOOD SPECIMEN Performed By: #### 5 7021-8 ####[facility]ORYCLIA [id number] [place] [address] Platelets (Bld) [#/Vol] 464 10*3/uL High 150-400 [facility] Comment on above: Order Comment: Speci men Type: BLOOD SPECIMEN Performed By: #### 5 7021-8 ####[facility]ORYCLIA [id number] [place] [address] Polychromasia LM Ql (Bld) Slight Normal [facility] Comment on above: Order Comment: Speci men Type: BLOOD SPECIMEN Performed By: #### 5 7021-8 ####[facility]ORYCLIA [id number] [place] [address] RBC (Bld) [#/Vol] 4.33 10*6/uL Normal 3.90-5.20 [facility] Comment on above: Order Comment: Speci men Type: BLOOD SPECIMEN Performed By: #### 5 7021-8 ####[facility]ORYCLIA [id number] [place] [address] RED CELL MORPH Reviewed Normal [facility] Comment on above: Order Comment: Speci men Type: BLOOD SPECIMEN Performed By: #### 5 7021-8 ####[facility]ORYCLIA [id number] [place] [address] WAM - ABS BASO 0.00 k/uL Normal <0.11 [facility] Comment on above: Order Comment: Speci men Type: BLOOD SPECIMEN Performed By: #### 5 7021-8 ####[facility]ORYCLIA [id number] [place] [address] WAM - ABS MONO 0.90 k/uL High <0.87 [facility] Comment on above: Order Comment: Speci men Type: BLOOD SPECIMEN Performed By: #### 5 7021-8 ####[facility]ORATORYCLIA [id number] [place] [address] WAM - MONO% 12.0 % Normal [facility] Comment on above: Order Comment: Speci men Type: BLOOD SPECIMEN Performed By: #### 5 7021-8 ####[facility]ORATORYCLIA [id number] [place] [address] WAM ABSOLUTE NRBC <0.01 Normal <0.01 [facility] Comment on above: Order Comment: Speci men Type: BLOOD SPECIMEN Performed By: #### 5 7021-8 ####[facility]ORATORYCLIA [id number] [place] [address] WBC (Bld) [#/Vol] 7.46 10*3/uL Normal 3.70-11.00 [facility] Comment on above: Order Comment: Speci men Type: BLOOD SPECIMEN Performed By: #### 5 7021-8 ####[facility]ORATORYCLIA [id number] [place] [address] CONSULT PROGon 04-15-2021 CONSULT PROG Normal [facility] Basic metabolic 2000 panelon 04-14-2021 Anion gap [Moles/Vol] 9 mmol/L Normal 9-18 [facility] Comment on above: Order Comment: Speci men Type: BLOOD SPECIMEN Performed By: #### 2 4321-2 ####[facility] LABORATORYCLIA [id number] [place] [address] Calcium [Mass/Vol] 8.7 mg/dL Normal 8.5-10.2 [facility] Comment on above: Order Comment: Speci men Type: BLOOD SPECIMEN Performed By: #### 2 4321-2 ####[facility]ORATORYCLIA [id number] [place] [address] Chloride [Moles/Vol] 105 mmol/L Normal 97-105 [facility] Comment on above: Order Comment: Speci men Type: BLOOD SPECIMEN Performed By: #### 2 4321-2 ####[facility]ORATORYCLIA [id number] [place] [address] CO2 [Moles/Vol] 25 mmol/L Normal 22-30 [facility] Comment on above: Order Comment: Speci men Type: BLOOD SPECIMEN Performed By: #### 2 4321-2 ####[facility]ORATORYCLIA [id number] [place] [address] Creatinine [Mass/Vol] 0.50 mg/dL Low 0.58-0.96 [facility] Comment on above: Order Comment: Speci men Type: BLOOD SPECIMEN Performed By: #### 2 4321-2 ####[facility]ORATORYCLIA [id number] [place] [address] GFR/1.73 sq M.predicted MDRD (S/P/Bld) [Vol rate/Area] mL/min/{1.73_m2} Normal [facility] Comment on above: Order Comment: Speci men Type: BLOOD SPECIMEN Result Comment: >60e GFR (Estimated GFR) Units of measure: mL/min/1.73 meters squaredeGFR is derived from the reexpressed MDRD Study equation using the following parameters: serum creatinine, age, gender and race. The creatinine assay has been calibrated to be traceable to IDMS. An eGFR <60 mL/min/1.73m2 for >3 months is consistent with chronic kidney disease. Refer to KDOQI guidelines for clinical interpretation. In patients with unstable renal function, e.g. those with acute kidney injury, the eGFR may not accurately reflect actual GFR. Performed By: #### 2 4321-2 ####[facility] LABORATORYCLIA [id number] [place] [address] Glucose [Mass/Vol] 101 mg/dL High 74-99 [facility] Comment on above: Order Comment: Speci men Type: BLOOD SPECIMEN Result Comment: The [place] Diabetes [employer] (ADA) provides guidance for cutoff values for fasting glucose and random glucose. The ADA defines fasting as no caloric intake for at least 8 hours. Fasting plasma glucose results between 100 to 125 mg/dL indicate increased risk for diabetes (prediabetes).Fasting plasma glucose results greater than or equal to 126 mg/dL meet the criteria for diagnosis of diabetes. In the absence of unequivocal hyperglycemia, results should be confirmed by repeat testing. In a patient with classic symptoms of hyperglycemia or hyperglycemic crisis, random plasma glucose results greater than or equal to 200 mg/dL meet the criteria for diagnosis of diabetes.Reference: Standards of Medical Care in Diabetes 2016, [place] [employer]. Diabetes Care. 2016.39(Suppl 1). Performed By: #### 2 4321-2 ####[facility] LABORATORYCLIA [id number] [place] [address] Potassium [Moles/Vol] 4.0 mmol/L Normal 3.7-5.1 [facility] Comment on above: Order Comment: [facility] Type: BLOOD SPECIMEN Performed By: #### 2 4321-2 ####[facility] LABORATORYCLIA [id number] [place] [address] Sodium [Moles/Vol] 139 mmol/L Normal 136-144 [facility] Comment on above: Order Comment: Speci men Type: BLOOD SPECIMEN Performed By: #### 2 4321-2 ####[facility]ORATORYCLIA [id number] [place] [address] Urea nitrogen [Mass/Vol] 8 mg/dL Normal 05-10 [facility] Comment on above: Order Comment: Speci men Type: BLOOD SPECIMEN Performed By: #### 2 4321-2 ####[facility]ATORYCLIA [id number] [place] [address] CBC W Auto Differential pane l (Bld)on 04-14-2021 Basophils (Bld) [#/Vol] 0.07 10*3/uL Normal <0.11 [facility] Comment on above: Order Comment: Speci men Type: BLOOD SPECIMEN Performed By: #### 5 7021-8 ####[facility]ATORYCLIA [id number] [place] [address] Basophils/100 WBC (Bld) 1.1 % Normal [facility] Comment on above: Order Comment: Speci men Type: BLOOD SPECIMEN Performed By: #### 5 7021-8 ####[facility]ATORYCLIA [id number] [place] [address] Differential cell count method Nom (Bld) Auto Normal [facility] Comment on above: Order Comment: Speci men Type: BLOOD SPECIMEN Performed By: #### 5 7021-8 ####[facility]ATORYCLIA [id number] [place] [address] Eosinophils (Bld) [#/Vol] 10*3/uL Normal <0.46 [facility] Comment on above: Order Comment: Speci men Type: BLOOD SPECIMEN Performed By: #### 5 7021-8 ####[facility]ATORYCLIA [id number] [place] [address] Eosinophils/100 WBC (Bld) 0.2 % Normal [facility] Comment on above: Order Comment: Speci men Type: BLOOD SPECIMEN Performed By: #### 5 7021-8 ####[facility]ATORYCLIA [id number] [place] [address] Erythrocyte distribution width (RBC) [Ratio] 17.6 % High 11.5-15.0 [facility] Comment on above: Order Comment: Speci men Type: BLOOD SPECIMEN Performed By: #### 5 7021-8 ####[facility] LABORATORYCLIA [id number] [place] [address] Hematocrit (Bld) [Volume fraction] 33.4 % Low 36.0-46.0 [facility] Comment on above: Order Comment: Speci men Type: BLOOD SPECIMEN Performed By: #### 5 7021-8 ####[facility] LABORATORYCLIA [id number] [place] [address] Hemoglobin (Bld) [Mass/Vol] 10.4 g/dL Low 11.5-15.5 [facility] Comment on above: Order Comment: Speci men Type: BLOOD SPECIMEN Performed By: #### 5 7021-8 ####[facility] LABORATORYCLIA [id number] [place] [address] IMMATURE GRAN % 6.4 % Normal [facility] Comment on above: Order Comment: Speci men Type: BLOOD SPECIMEN Performed By: #### 5 7021-8 ####[facility] LABORATORYCLIA [id number] [place] [address] IMMATURE GRAN ABS 0.39 k/uL High <0.10 [facility] Comment on above: Order Comment: Speci men Type: BLOOD SPECIMEN Performed By: #### 5 7021-8 ####[facility]ATORYCLIA [id number] [place] [address] Lymphocytes (Bld) [#/Vol] 1.18 10*3/uL Normal 1.00-4.00 [facility] Comment on above: Order Comment: Speci men Type: BLOOD SPECIMEN Performed By: #### 5 7021-8 ####[facility]ATORYCLIA [id number] [place] [address] Lymphocytes/100 WBC (Bld) 19.4 % Normal [facility] Comment on above: Order Comment: Speci men Type: BLOOD SPECIMEN Performed By: #### 5 7021-8 ####[facility] LABORATORYCLIA [id number] [place] [address] MCH (RBC) [Entitic mass] 25.1 pg Low 26.0-34.0 [facility] Comment on above: Order Comment: Speci men Type: BLOOD SPECIMEN Performed By: #### 5 7021-8 ####[facility] LABORATORYCLIA [id number] [place] [address] MCHC (RBC) [Mass/Vol] 31.1 g/dL Normal 30.5-36.0 [facility] Comment on above: Order Comment: Speci men Type: BLOOD SPECIMEN Performed By: #### 5 7021-8 ####[facility] LABORATORYCLIA [id number] [place] [address] MCV (RBC) [Entitic vol] 80.7 fL Normal 80.0-100.0 [facility] Comment on above: Order Comment: Speci men Type: BLOOD SPECIMEN Performed By: #### 5 7021-8 ####[facility] LABORATORYCLIA [id number] [place] [address] Monocytes (Bld) [#/Vol] 1.27 10*3/uL High <0.87 [facility] Comment on above: Order Comment: Speci men Type: BLOOD SPECIMEN Performed By: #### 5 7021-8 ####[facility] LABORATORYCLIA [id number] [place] [address] Monocytes/100 WBC (Bld) 20.9 % Normal [facility] Comment on above: Order Comment: Speci men Type: BLOOD SPECIMEN Performed By: #### 5 7021-8 ####[facility] LABORATORYCLIA [id number] [place] [address] Neutrophils (Bld) [#/Vol] 3.17 10*3/uL Normal 1.45-7.50 [facility] Comment on above: Order Comment: Speci men Type: BLOOD SPECIMEN Performed By: #### 5 7021-8 ####[facility] LABORATORYCLIA [id number] [place] [address] Neutrophils/100 WBC (Bld) 52.0 % Normal [facility] Comment on above: Order Comment: Speci men Type: BLOOD SPECIMEN Performed By: #### 5 7021-8 ####[facility] LABORATORYCLIA [id number] [place] [address] Nucleated RBC (Bld) [#/Vol] 0.02 10*3/uL High <0.01 [facility] Comment on above: Order Comment: Speci men Type: BLOOD SPECIMEN Performed By: #### 5 7021-8 ####[facility] LABORATORYCLIA [id number] [place] [address] Nucleated RBC/100 WBC (Bld) [Ratio] 0.3 /100 WBC High 0.0 [facility] Comment on above: Order Comment: Speci men Type: BLOOD SPECIMEN Performed By: #### 5 7021-8 ####[facility] LABORATORYCLIA [id number] [place] [address] Platelet mean volume (Bld) [Entitic vol] 9.8 fL Normal 9.0-12.7 [facility] Comment on above: Order Comment: Speci men Type: BLOOD SPECIMEN Performed By: #### 5 7021-8 ####[facility] LABORATORYCLIA [id number] [place] [address] Platelets (Bld) [#/Vol] 428 10*3/uL High 150-400 [facility] Comment on above: Order Comment: Speci men Type: BLOOD SPECIMEN Performed By: #### 5 7021-8 ####[facility]ATORYCLIA [id number] [place] [address] RBC (Bld) [#/Vol] 4.14 10*6/uL Normal 3.90-5.20 [facility] Comment on above: Order Comment: Speci men Type: BLOOD SPECIMEN Performed By: #### 5 7021-8 ####[facility]ORATORYCLIA [id number] [place] [address] WBC (Bld) [#/Vol] 6.09 10*3/uL Normal 3.70-11.00 [facility] Comment on above: Order Comment: Speci men Type: BLOOD SPECIMEN Performed By: #### 5 7021-8 ####[facility]ORATORYCLIA [id number] [place] [address] CONSULT PROGon 04-14-2021 CONSULT PROG Normal [facility] THERAPY NTon 04-14-2021 THERAPY NT Normal [facility] BRIEF OP NOTon 04-13-2021 BRIEF OP NOT Normal [facility] Bacteria Fld Culton 04-13-20 21 Bacteria identified Cx Nom (Body fld) CULTURE, BODY FLD: No growth 5 days GRAM STAIN: No organisms seen Few Polymorphonuclear leukocytes Normal [facility] Comment on above: Performed By: #### 6 11-4 ####[facility]ORATORYCLIA [id number] [place] [address] Basic metabolic 2000 panelon 04-13-2021 Anion gap [Moles/Vol] 10 mmol/L Normal 9-18 [facility] Comment on above: Order Comment: Speci men Type: BLOOD SPECIMEN Performed By: #### 2 4321-2 ####[facility] LABORATORYCLIA [id number] [place] [address] Calcium [Mass/Vol] 8.9 mg/dL Normal 8.5-10.2 [facility] Comment on above: Order Comment: Speci men Type: BLOOD SPECIMEN Performed By: #### 2 4321-2 ####[facility]ATORYCLIA [id number] [place] [address] Chloride [Moles/Vol] 104 mmol/L Normal 97-105 [facility] Comment on above: Order Comment: Speci men Type: BLOOD SPECIMEN Performed By: #### 2 4321-2 ####[facility]ATORYCLIA [id number] [place] [address] CO2 [Moles/Vol] 25 mmol/L Normal 22-30 [facility] Comment on above: Order Comment: Speci men Type: BLOOD SPECIMEN Performed By: #### 2 4321-2 ####[facility]ATORYCLIA [id number] [place] [address] Creatinine [Mass/Vol] 0.49 mg/dL Low 0.58-0.96 [facility] Comment on above: Order Comment: Speci men Type: BLOOD SPECIMEN Performed By: #### 2 4321-2 ####[facility] LABORATORYCLIA [id number] [place] [address] GFR/1.73 sq M.predicted MDRD (S/P/Bld) [Vol rate/Area] mL/min/{1.73_m2} Normal [facility] Comment on above: Order Comment: Speci men Type: BLOOD SPECIMEN Result Comment: >60e GFR (Estimated GFR) Units of measure: mL/min/1.73 meters squaredeGFR is derived from the reexpressed MDRD Study equation using the following parameters: serum creatinine, age, gender and race. The creatinine assay has been calibrated to be traceable to IDMS. An eGFR <60 mL/min/1.73m2 for >3 months is consistent with chronic kidney disease. Refer to KDOQI guidelines for clinical interpretation. In patients with unstable renal function, e.g. those with acute kidney injury, the eGFR may not accurately reflect actual GFR. Performed By: #### 2 4321-2 ####[facility]ISIA [id number] [place] [address] Glucose [Mass/Vol] 100 mg/dL High 74-99 [facility] Comment on above: Order Comment: Speci [facility] Type: BLOOD SPECIMEN Result Comment: The [place] [employer] (ADA) provides guidance for cutoff values for fasting glucose and random glucose. The ADA defines fasting as no caloric intake for at least 8 hours. Fasting plasma glucose results between 100 to 125 mg/dL indicate increased risk for diabetes (prediabetes).Fasting plasma glucose results greater than or equal to 126 mg/dL meet the criteria for diagnosis of diabetes. In the absence of unequivocal hyperglycemia, results should be confirmed by repeat testing. In a patient with classic symptoms of hyperglycemia or hyperglycemic crisis, random plasma glucose results greater than or equal to 200 mg/dL meet the criteria for diagnosis of diabetes.Reference: Standards of Medical Care in Diabetes 2016, [place] [employer]. Diabetes Care. 2016.39(Suppl 1). Performed By: #### 2 4321-2 ####[facility] LABORATORYCLIA [id number] [place] [address] Potassium [Moles/Vol] 4.2 mmol/L Normal 3.7-5.1 [facility] Comment on above: Order Comment: Speci men Type: BLOOD SPECIMEN Performed By: #### 2 4321-2 ####[facility]ORATORYCLIA [id number] [place] [address] Sodium [Moles/Vol] 139 mmol/L Normal 136-144 [facility] Comment on above: Order Comment: Speci men Type: BLOOD SPECIMEN Performed By: #### 2 4321-2 ####[facility]ORYCLIA [id number] [place] [address] Urea nitrogen [Mass/Vol] 9 mg/dL Normal 7-21 [facility] Comment on above: Order Comment: Speci men Type: BLOOD SPECIMEN Performed By: #### 2 4321-2 ####[facility]ORATORYCLIA [id number] [place] [address] CBC W Auto Differential pane l (Bld)on 04-13-2021 Acanthocytes LM Ql (Bld) Few Normal [facility] Comment on above: Order Comment: Speci men Type: BLOOD SPECIMEN Performed By: #### 5 7021-8 ####[facility] LABORATORYCLIA [id number] [place] [address] Anisocytosis Ql (Bld) Present Normal [facility] Comment on above: Order Comment: Speci men Type: BLOOD SPECIMEN Performed By: #### 5 7021-8 ####[facility]ORATORYCLIA [id number] [place] [address] Basophils/100 WBC (Bld) 0.0 % Normal [facility] Comment on above: Order Comment: Speci men Type: BLOOD SPECIMEN Performed By: #### 5 7021-8 ####[facility] LABORATORYCLIA [id number] [place] [address] Differential cell count method Nom (Bld) Manual Normal [facility] Comment on above: Order Comment: Speci men Type: BLOOD SPECIMEN Performed By: #### 5 7021-8 ####[facility]ATORYCLIA [id number] [place] [address] Eosinophils (Bld) [#/Vol] 0.06 10*3/uL Normal <0.46 [facility] Comment on above: Order Comment: Speci men Type: BLOOD SPECIMEN Performed By: #### 5 7021-8 ####[facility]ATORYCLIA [id number] [place] [address] Eosinophils/100 WBC (Bld) 1.0 % Normal [facility] Comment on above: Order Comment: Speci men Type: BLOOD SPECIMEN Performed By: #### 5 7021-8 ####[facility]ATORYCLIA [id number] [place] [address] Erythrocyte distribution width (RBC) [Ratio] 17.2 % High 11.5-15.0 [facility] Comment on above: Order Comment: Speci men Type: BLOOD SPECIMEN Performed By: #### 5 7021-8 ####[facility] LABORATORYCLIA [id number] [place] [address] Hematocrit (Bld) [Volume fraction] 33.4 % Low 36.0-46.0 [facility] Comment on above: Order Comment: Speci men Type: BLOOD SPECIMEN Performed By: #### 5 7021-8 ####[facility]ATORYCLIA [id number] [place] [address] Hemoglobin (Bld) [Mass/Vol] 10.5 g/dL Low 11.5-15.5 [facility] Comment on above: Order Comment: Speci men Type: BLOOD SPECIMEN Performed By: #### 5 7021-8 ####[facility]ATORYCLIA [id number] [place] [address] Lymphocytes (Bld) [#/Vol] 1.15 10*3/uL Normal 1.00-4.00 [facility] Comment on above: Order Comment: Speci men Type: BLOOD SPECIMEN Performed By: #### 5 7021-8 ####[facility] LABORATORYCLIA [id number] [place] [address] Lymphocytes/100 WBC (Bld) 19.0 % Normal [facility] Comment on above: Order Comment: Speci men Type: BLOOD SPECIMEN Performed By: #### 5 7021-8 ####[facility] LABORATORYCLIA [id number] [place] [address] MCH (RBC) [Entitic mass] 25.2 pg Low 26.0-34.0 [facility] Comment on above: Order Comment: Speci men Type: BLOOD SPECIMEN Performed By: #### 5 7021-8 ####[facility]ORATORYCLIA [id number] [place] [address] MCHC (RBC) [Mass/Vol] 31.4 g/dL Normal 30.5-36.0 [facility] Comment on above: Order Comment: Speci men Type: BLOOD SPECIMEN Performed By: #### 5 7021-8 ####[facility] LABORATORYCLIA [id number] [place] [address] MCV (RBC) [Entitic vol] 80.1 fL Normal 80.0-100.0 [facility] Comment on above: Order Comment: Speci men Type: BLOOD SPECIMEN Performed By: #### 5 7021-8 ####[facility]ORATORYCLIA [id number] [place] [address] Metamyelocytes/100 WBC (Bld) 2.0 % Normal [facility] Comment on above: Order Comment: Speci men Type: BLOOD SPECIMEN Performed By: #### 5 7021-8 ####[facility]ATORYCLIA [id number] [place] [address] Neutrophils (Bld) [#/Vol] 4.04 10*3/uL Normal 1.45-7.50 [facility] Comment on above: Order Comment: Speci men Type: BLOOD SPECIMEN Performed By: #### 5 7021-8 ####[facility]ORYCLIA [id number] [place] [address] Neutrophils/100 WBC (Bld) 67.0 % Normal [facility] Comment on above: Order Comment: Speci men Type: BLOOD SPECIMEN Performed By: #### 5 7021-8 ####[facility]ATORYCLIA [id number] [place] [address] Nucleated RBC/100 WBC (Bld) [Ratio] 0.0 /100 WBC Normal 0.0 [facility] Comment on above: Order Comment: Speci men Type: BLOOD SPECIMEN Performed By: #### 5 7021-8 ####[facility]ATORYCLIA [id number] [place] [address] Ovalocytes LM Ql (Bld) Few Normal [facility] Comment on above: Order Comment: Speci men Type: BLOOD SPECIMEN Performed By: #### 5 7021-8 ####[facility]ATORYCLIA [id number] [place] [address] PLATELET ESTIMATE Adequate Normal [facility] Comment on above: Order Comment: Speci men Type: BLOOD SPECIMEN Performed By: #### 5 7021-8 ####[facility]ATORYCLIA [id number] [place] [address] Platelet mean volume (Bld) [Entitic vol] 9.8 fL Normal 9.0-12.7 [facility] Comment on above: Order Comment: Speci men Type: BLOOD SPECIMEN Performed By: #### 5 7021-8 ####[facility]ATORYCLIA [id number] [place] [address] Platelets (Bld) [#/Vol] 390 10*3/uL Normal 150-400 [facility] Comment on above: Order Comment: Speci men Type: BLOOD SPECIMEN Performed By: #### 5 7021-8 ####[facility]ATORYCLIA [id number] [place] [address] Polychromasia LM Ql (Bld) Slight Normal [facility] Comment on above: Order Comment: Speci men Type: BLOOD SPECIMEN Performed By: #### 5 7021-8 ####[facility]ORYCLIA [id number] [place] [address] RBC (Bld) [#/Vol] 4.17 10*6/uL Normal 3.90-5.20 [facility] Comment on above: Order Comment: Speci men Type: BLOOD SPECIMEN Performed By: #### 5 7021-8 ####[facility]ORATORYCLIA [id number] [place] [address] RED CELL MORPH Reviewed Normal [facility] Comment on above: Order Comment: Speci men Type: BLOOD SPECIMEN Performed By: #### 5 7021-8 ####[facility]ORATORYCLIA [id number] [place] [address] WAM - ABS BASO 0.00 k/uL Normal <0.11 [facility] Comment on above: Order Comment: Speci men Type: BLOOD SPECIMEN Performed By: #### 5 7021-8 ####[facility]ATORYCLIA [id number] [place] [address] WAM - ABS MONO 0.66 k/uL Normal <0.87 [facility] Comment on above: Order Comment: Speci men Type: BLOOD SPECIMEN Performed By: #### 5 7021-8 ####[facility]ATORYCLIA [id number] [place] [address] WAM - MONO% 11.0 % Normal [facility] Comment on above: Order Comment: Speci men Type: BLOOD SPECIMEN Performed By: #### 5 7021-8 ####[facility]ATORYCLIA [id number] [place] [address] WAM ABSOLUTE NRBC <0.01 Normal <0.01 [facility] Comment on above: Order Comment: Speci men Type: BLOOD SPECIMEN Performed By: #### 5 7021-8 ####[facility]ATORYCLIA [id number] [place] [address] WBC (Bld) [#/Vol] 6.03 10*3/uL Normal 3.70-11.00 [facility] Comment on above: Order Comment: Speci men Type: BLOOD SPECIMEN Performed By: #### 5 7021-8 ####[facility]ATORYCLIA [id number] [place] [address] CONSULT PROGon 04-13-2021 CONSULT PROG Normal [facility] CONSULT PROG Normal [facility] NUTRITIONon 04-13-2021 NUTRITION Normal [facility] US ASPIRATION SUBCUT ABSCESS on 04-13-2021 US ASPIRATION SUBCUT ABSCESS Normal [facility] Vancomycin random [Mass/Vol] on 04-13-2021 Vancomycin [Mass/Vol] 17.7 ug/mL Normal 10.0-20.0 [facility] Comment on above: Order Comment: Speci men Type: BLOOD SPECIMEN Result Comment: Refe rence ranges and high/low indicator flags are provided as general guidelines only. The treating physician must determine appropriate target levels/dosing based on the specific clinical situation. Performed By: #### 4 091-5 ####[facility]ORATORYCLIA [id number] [place] [address] BRIEF OP NOTon 04-12-2021 BRIEF OP NOT Normal [facility] Basic metabolic 2000 panelon 04-12-2021 Anion gap [Moles/Vol] 9 mmol/L Normal 9-18 [facility] Comment on above: Order Comment: Speci men Type: BLOOD SPECIMEN Performed By: #### 2 4321-2 ####[facility]ORATORYCLIA [id number] [place] [address] Calcium [Mass/Vol] 8.9 mg/dL Normal 8.5-10.2 [facility] Comment on above: Order Comment: Speci men Type: BLOOD SPECIMEN Performed By: #### 2 4321-2 ####[facility]ORYCLIA [id number] [place] [address] Chloride [Moles/Vol] 104 mmol/L Normal 97-105 [facility] Comment on above: Order Comment: Speci men Type: BLOOD SPECIMEN Performed By: #### 2 4321-2 ####[facility]ORATORYCLIA [id number] [place] [address] CO2 [Moles/Vol] 25 mmol/L Normal 22-30 [facility] Comment on above: Order Comment: Speci men Type: BLOOD SPECIMEN Performed By: #### 2 4321-2 ####[facility] [facility]ATORYCLIA [id number] [place] [address] Creatinine [Mass/Vol] 0.53 mg/dL Low 0.58-0.96 [facility] Comment on above: Order Comment: Speci men Type: BLOOD SPECIMEN Performed By: #### 2 4321-2 ####[facility] LABORATORYCLIA [id number] [place] [address] GFR/1.73 sq M.predicted MDRD (S/P/Bld) [Vol rate/Area] mL/min/{1.73_m2} Normal [facility] Comment on above: Order Comment: Speci men Type: BLOOD SPECIMEN Result Comment: >60e GFR (Estimated GFR) Units of measure: mL/min/1.73 meters squaredeGFR is derived from the reexpressed MDRD Study equation using the following parameters: serum creatinine, age, gender and race. The creatinine assay has been calibrated to be traceable to IDMS. An eGFR <60 mL/min/1.73m2 for >3 months is consistent with chronic kidney disease. Refer to KDOQI guidelines for clinical interpretation. In patients with unstable renal function, e.g. those with acute kidney injury, the eGFR may not accurately reflect actual GFR. Performed By: #### 2 4321-2 ####[facility] LABORATORYCLIA [id number] [place] [address] Glucose [Mass/Vol] 106 mg/dL High 74-99 [facility] Comment on above: Order Comment: Speci men Type: BLOOD SPECIMEN Result Comment: The [place] Diabetes [employer] (ADA) provides guidance for cutoff values for fasting glucose and random glucose. The ADA defines fasting as no caloric intake for at least 8 hours. Fasting plasma glucose results between 100 to 125 mg/dL indicate increased risk for diabetes (prediabetes).Fasting plasma glucose results greater than or equal to 126 mg/dL meet the criteria for diagnosis of diabetes. In the absence of unequivocal hyperglycemia, results should be confirmed by repeat testing. In a patient with classic symptoms of hyperglycemia or hyperglycemic crisis, random plasma glucose results greater than or equal to 200 mg/dL meet the criteria for diagnosis of diabetes.Reference: Standards of Medical Care in Diabetes 2016, [place] [employer]. Diabetes Care. 2016.39(Suppl 1). Performed By: #### 2 4321-2 ####[facility] LABORATORYCLIA [id number] [place] [address] Potassium [Moles/Vol] 4.3 mmol/L Normal 3.7-5.1 [facility] Comment on above: Order Comment: Speci men Type: BLOOD SPECIMEN Performed By: #### 2 4321-2 ####[facility] LABORATORYCLIA [id number] [place] [address] Sodium [Moles/Vol] 138 mmol/L Normal 136-144 [facility] Comment on above: Order Comment: Speci men Type: BLOOD SPECIMEN Performed By: #### 2 4321-2 ####[facility] LABORATORYCLIA [id number] [place] [address] Urea nitrogen [Mass/Vol] 7 mg/dL Normal 7-21 [facility] Comment on above: Order Comment: Speci men Type: BLOOD SPECIMEN Performed By: #### 2 4321-2 ####[facility] LABORATORYCLIA [id number] [place] [address] CASE MANAGEMon 04-12-2021 CASE MANAGEM Normal [facility] CBC W Auto Differential pane l (Bld)on 04-12-2021 Basophils/100 WBC (Bld) 0.0 % Normal A [facility] Comment on above: Order Comment: Speci men Type: BLOOD SPECIMEN Performed By: #### 5 7021-8 ####[facility] LABORATORYCLIA [id number] [place] [address] Differential cell count method Nom (Bld) Manual Normal [facility] Comment on above: Order Comment: Speci men Type: BLOOD SPECIMEN Performed By: #### 5 7021-8 ####[facility]ORATORYCLIA [id number] [place] [address] Eosinophils (Bld) [#/Vol] 0.00 10*3/uL Normal <0.46 [facility] Comment on above: Order Comment: Speci men Type: BLOOD SPECIMEN Performed By: #### 5 7021-8 ####[facility]ORATORYCLIA [id number] [place] [address] Eosinophils/100 WBC (Bld) 0.0 % Normal [facility] Comment on above: Order Comment: Speci men Type: BLOOD SPECIMEN Performed By: #### 5 7021-8 ####[facility] LABORATORYCLIA [id number] [place] [address] Erythrocyte distribution width (RBC) [Ratio] 16.9 % High 11.5-15.0 [facility] Comment on above: Order Comment: Speci men Type: BLOOD SPECIMEN Performed By: #### 5 7021-8 ####[facility]ORATORYCLIA [id number] [place] [address] Hematocrit (Bld) [Volume fraction] 36.1 % Normal 36.0-46.0 [facility] Comment on above: Order Comment: Speci men Type: BLOOD SPECIMEN Performed By: #### 5 7021-8 ####[facility]ORATORYCLIA [id number] [place] [address] Hemoglobin (Bld) [Mass/Vol] 11.1 g/dL Low 11.5-15.5 [facility] Comment on above: Order Comment: Speci men Type: BLOOD SPECIMEN Performed By: #### 5 7021-8 ####[facility]ORATORYCLIA [id number] [place] [address] Lymphocytes (Bld) [#/Vol] 0.80 10*3/uL Low 1.00-4.00 [facility] Comment on above: Order Comment: Speci men Type: BLOOD SPECIMEN Performed By: #### 5 7021-8 ####[facility]ORATORYCLIA [id number] [place] [address] Lymphocytes/100 WBC (Bld) 15.0 % Normal [facility] Comment on above: Order Comment: Speci men Type: BLOOD SPECIMEN Performed By: #### 5 7021-8 ####[facility]ORATORYCLIA [id number] [place] [address] MCH (RBC) [Entitic mass] 25.0 pg Low 26.0-34.0 [facility] Comment on above: Order Comment: Speci men Type: BLOOD SPECIMEN Performed By: #### 5 7021-8 ####[facility]ORATORYCLIA [id number] [place] [address] MCHC (RBC) [Mass/Vol] 30.7 g/dL Normal 30.5-36.0 [facility] Comment on above: Order Comment: Speci men Type: BLOOD SPECIMEN Performed By: #### 5 7021-8 ####[facility]ORATORYCLIA [id number] [place] [address] MCV (RBC) [Entitic vol] 81.3 fL Normal 80.0-100.0 [facility] Comment on above: Order Comment: Speci men Type: BLOOD SPECIMEN Performed By: #### 5 7021-8 ####[facility]ORATORYCLIA [id number] [place] [address] Metamyelocytes/100 WBC (Bld) 8.0 % Normal [facility] Comment on above: Order Comment: Speci men Type: BLOOD SPECIMEN Performed By: #### 5 7021-8 ####[facility]ORATORYCLIA [id number] [place] [address] MYELO% 1.0 % Normal [facility] Comment on above: Order Comment: Speci men Type: BLOOD SPECIMEN Performed By: #### 5 7021-8 ####[facility]ORATORYCLIA [id number] [place] [address] Neutrophils (Bld) [#/Vol] 3.60 10*3/uL Normal 1.45-7.50 [facility] Comment on above: Order Comment: Speci men Type: BLOOD SPECIMEN Performed By: #### 5 7021-8 ####[facility]ORATORYCLIA [id number] [place] [address] Neutrophils/100 WBC (Bld) 68.0 % Normal [facility] Comment on above: Order Comment: Speci men Type: BLOOD SPECIMEN Performed By: #### 5 7021-8 ####[facility]ORATORYCLIA [id number] [place] [address] Nucleated RBC/100 WBC (Bld) [Ratio] 0.0 /100 WBC Normal 0.0 [facility] Comment on above: Order Comment: Speci men Type: BLOOD SPECIMEN Performed By: #### 5 7021-8 ####[facility]ORATORYCLIA [id number] [place] [address] PLATELET ESTIMATE Adequate Normal [facility] Comment on above: Order Comment: Speci men Type: BLOOD SPECIMEN Performed By: #### 5 7021-8 ####[facility]ORATORYCLIA [id number] [place] [address] Platelet mean volume (Bld) [Entitic vol] 10.3 fL Normal 9.0-12.7 [facility] Comment on above: Order Comment: Speci men Type: BLOOD SPECIMEN Performed By: #### 5 7021-8 ####[facility]ORATORYCLIA [id number] [place] [address] Platelets (Bld) [#/Vol] 344 10*3/uL Normal 150-400 [facility] Comment on above: Order Comment: Speci men Type: BLOOD SPECIMEN Performed By: #### 5 7021-8 ####[facility]ORATORYCLIA [id number] [place] [address] Polychromasia LM Ql (Bld) Slight Normal [facility] Comment on above: Order Comment: Speci men Type: BLOOD SPECIMEN Performed By: #### 5 7021-8 ####[facility]ORATORYCLIA [id number] [place] [address] RBC (Bld) [#/Vol] 4.44 10*6/uL Normal 3.90-5.20 [facility] Comment on above: Order Comment: Speci men Type: BLOOD SPECIMEN Performed By: #### 5 7021-8 ####[facility]ORATORYCLIA [id number] [place] [address] RED CELL MORPH Reviewed Normal [facility] Comment on above: Order Comment: Speci men Type: BLOOD SPECIMEN Performed By: #### 5 7021-8 ####[facility]ORATORYCLIA [id number] [place] [address] Toxic granules LM Ql (Bld) Present Normal [facility] Comment on above: Order Comment: Speci men Type: BLOOD SPECIMEN Performed By: #### 5 7021-8 ####[facility]ORATORYCLIA [id number] [place] [address] WAM - ABS BASO 0.00 k/uL Normal <0.11 [facility] Comment on above: Order Comment: Speci men Type: BLOOD SPECIMEN Performed By: #### 5 7021-8 ####[facility]ORATORYCLIA [id number] [place] [address] WAM - ABS MONO 0.42 k/uL Normal <0.87 [facility] Comment on above: Order Comment: Speci men Type: BLOOD SPECIMEN Performed By: #### 5 7021-8 ####[facility]ORATORYCLIA [id number] [place] [address] WAM - MONO% 8.0 % Normal [facility] Comment on above: Order Comment: Speci men Type: BLOOD SPECIMEN Performed By: #### 5 7021-8 ####[facility]ORATORYCLIA [id number] [place] [address] WAM ABSOLUTE NRBC <0.01 Normal <0.01 [facility] Comment on above: Order Comment: Speci men Type: BLOOD SPECIMEN Performed By: #### 5 7021-8 ####[facility]ORATORYCLIA [id number] [place] [address] WBC (Bld) [#/Vol] 5.30 10*3/uL Normal 3.70-11.00 [facility] Comment on above: Order Comment: Speci men Type: BLOOD SPECIMEN Performed By: #### 5 7021-8 ####[facility]ORATORYCLIA [id number] [place] [address] WBC Left Shift Ql (Bld) Present Normal A [facility] Comment on above: Order Comment: Speci men Type: BLOOD SPECIMEN Performed By: #### 5 7021-8 ####[facility]ORATORYCLIA [id number] [place] [address] CONSULTon 04-12-2021 CONSULT Normal [facility] CONSULT PROGon 04-12-2021 CONSULT PROG Normal [facility] Lactate (Bld) [Moles/Vol]on 04-12-2021 Lactate [Moles/Vol] 1.6 mmol/L Normal 0.5-2.2 [facility] Comment on above: Order Comment: Speci men Type: BLOOD SPECIMEN Performed By: #### 3 2693-4 ####[facility]ORATORYCLIA [id number] [place] [address] PROCALCITONIN (LAB)on 2020 Procalcitonin [Mass/Vol] 0.07 ng/mL Normal <0.09 [facility] Comment on above: Order Comment: Speci men Type: BLOOD SPECIMEN Result Comment: For a guided interpretation of test results, please visit the Change in Procalcitonin Calculator, [email or web address]. Performed By: #### P ROCAL ####[facility]ORATORYCLIA [id number] [place] [address] ALLIED HEALTHon 04-11-2021 ALLIED HEALTH Normal [facility] ALLIED HEALTH Normal [facility] Basic metabolic 2000 panelon 04-11-2021 Anion gap [Moles/Vol] 9 mmol/L Normal 9-18 [facility] Comment on above: Order Comment: Speci men Type: BLOOD SPECIMEN Performed By: #### 2 43210-22, 1988-02 ####[facility]ORATORYCLIA [id number] [place] [address] Calcium [Mass/Vol] 8.9 mg/dL Normal 8.5-10.2 [facility] Comment on above: Order Comment: Speci men Type: BLOOD SPECIMEN Performed By: #### 2 4320-11, 1988-02 ####[facility]ORATORYCLIA [id number] [place] [address] Chloride [Moles/Vol] 106 mmol/L High 97-105 [facility] Comment on above: Order Comment: Speci men Type: BLOOD SPECIMEN Performed By: #### 2 4320-11, 1988-02 ####[facility]ORATORYCLIA [id number] [place] [address] CO2 [Moles/Vol] 24 mmol/L Normal 22-30 [facility] Comment on above: Order Comment: Speci men Type: BLOOD SPECIMEN Performed By: #### 2 4320-11, 1988-02 ####[facility]ORATORYCLIA [id number] [place] [address] Creatinine [Mass/Vol] 0.58 mg/dL Normal 0.58-0.96 [facility] Comment on above: Order Comment: Speci men Type: BLOOD SPECIMEN Performed By: #### 2 4320-11, 1988-02 ####[facility]ORATORYCLIA [id number] [place] [address] GFR/1.73 sq M.predicted MDRD (S/P/Bld) [Vol rate/Area] mL/min/{1.73_m2} Normal [facility] Comment on above: Order Comment: Speci men Type: BLOOD SPECIMEN Result Comment: >60e GFR (Estimated GFR) Units of measure: mL/min/1.73 meters squaredeGFR is derived from the reexpressed MDRD Study equation using the following parameters: serum creatinine, age, gender and race. The creatinine assay has been calibrated to be traceable to IDMS. An eGFR <60 mL/min/1.73m2 for >3 months is consistent with chronic kidney disease. Refer to KDOQI guidelines for clinical interpretation. In patients with unstable renal function, e.g. those with acute kidney injury, the eGFR may not accurately reflect actual GFR. Performed By: #### 2 4320-11, 1988-02 ####[facility]ORATORYCLIA [id number] [place] [address] Glucose [Mass/Vol] 99 mg/dL Normal 74-99 [facility] Comment on above: Order Comment: Speci men Type: BLOOD SPECIMEN Result Comment: The [place] Diabetes [employer] (ADA) provides guidance for cutoff values for fasting glucose and random glucose. The ADA defines fasting as no caloric intake for at least 8 hours. Fasting plasma glucose results between 100 to 125 mg/dL indicate increased risk for diabetes (prediabetes).Fasting plasma glucose results greater than or equal to 126 mg/dL meet the criteria for diagnosis of diabetes. In the absence of unequivocal hyperglycemia, results should be confirmed by repeat testing. In a patient with classic symptoms of hyperglycemia or hyperglycemic crisis, random plasma glucose results greater than or equal to 200 mg/dL meet the criteria for diagnosis of diabetes.Reference: Standards of Medical Care in Diabetes 2016, [place] [employer]. Diabetes Care. 2016.39(Suppl 1). Performed By: #### 2 4320-11, 1988-02 ####[facility]ORATORYCLIA [id number] [place] [address] Potassium [Moles/Vol] 4.0 mmol/L Normal 3.7-5.1 [facility] Comment on above: Order Comment: Speci men Type: BLOOD SPECIMEN Performed By: #### 2 4320-11, 1988-02 ####[facility]ORATORYCLIA [id number] [place] [address] Sodium [Moles/Vol] 139 mmol/L Normal 136-144 [facility] Comment on above: Order Comment: Speci men Type: BLOOD SPECIMEN Performed By: #### 2 4320-11, 1988-02 ####[facility]ORATORYCLIA [id number] [place] [address] Urea nitrogen [Mass/Vol] 7 mg/dL Normal 7-21 [facility] Comment on above: Order Comment: Speci men Type: BLOOD SPECIMEN Performed By: #### 2 4320-11, 1988-02 ####[facility]ORATORYCLIA [id number] [place] [address] C diff Tox gens Stl Ql DANIEL+p robeon 04-11-2021 C. difficile toxin genes DANIEL+probe Ql (Stl) Positive Abnormal Negative for C. difficile toxin by PCR [facility] Comment on above: Order Comment: Speci men Type: STOOL SPECIMEN Result Comment: A po sitive PCR result may indicate C.difficile infection or colonization. The positive predictive value of this test for C.difficile infection is highest for patients with clinically significant diarrhea (>=3 unformed stools in 24h) who do not have an alternative explanation (e.g., recent receipt of laxatives).Toxin EIA testing will also be performed as recommended by IDSA clinical practice guidelines for institutions without pre-agreed criteria for specimen submission. Performed By: #### Rohini ANDINO 73965-0 ####[facility]ORATORYCLIA [id number] [place] [address] C. DIFFICILE TOXIN BY EIAon 04-11-2021 C. difficile toxin A+B IA Ql (Stl) Not detected Normal Negative for C. difficile toxin [facility] Comment on above: Order Comment: Speci men Type: STOOL SPECIMEN Result Comment: Toxi n EIA is less sensitive than cell cytotoxin and PCR assays. Clinical correlation of PCR positive/toxin EIA negative results is required to distinguish C. difficle colonization from disease. Performed By: #### Rohini ANDINO 53380-9 ####[facility]ORATORYCLIA [id number] [place] [address] CBC W Auto Differential pane l (Bld)on 04-11-2021 Basophils/100 WBC (Bld) 1.0 % Normal A [facility] Comment on above: Order Comment: Speci men Type: BLOOD SPECIMEN Performed By: #### 5 7021-8 ####[facility]ORATORYCLIA [id number] [place] [address] Differential cell count method Nom (Bld) Manual Normal [facility] Comment on above: Order Comment: Speci men Type: BLOOD SPECIMEN Performed By: #### 5 7021-8 ####[facility]ORATORYCLIA [id number] [place] [address] Eosinophils (Bld) [#/Vol] 0.00 10*3/uL Normal <0.46 [facility] Comment on above: Order Comment: Speci men Type: BLOOD SPECIMEN Performed By: #### 5 7021-8 ####[facility]ATORYCLIA [id number] [place] [address] Eosinophils/100 WBC (Bld) 0.0 % Normal [facility] Comment on above: Order Comment: Speci men Type: BLOOD SPECIMEN Performed By: #### 5 7021-8 ####[facility]ATORYCLIA [id number] [place] [address] Erythrocyte distribution width (RBC) [Ratio] 16.4 % High 11.5-15.0 [facility] Comment on above: Order Comment: Speci men Type: BLOOD SPECIMEN Performed By: #### 5 7021-8 ####[facility]ORATORYCLIA [id number] [place] [address] Hematocrit (Bld) [Volume fraction] 34.0 % Low 36.0-46.0 [facility] Comment on above: Order Comment: Speci men Type: BLOOD SPECIMEN Performed By: #### 5 7021-8 ####[facility]ATORYCLIA [id number] [place] [address] Hemoglobin (Bld) [Mass/Vol] 10.6 g/dL Low 11.5-15.5 [facility] Comment on above: Order Comment: Speci men Type: BLOOD SPECIMEN Performed By: #### 5 7021-8 ####[facility]ATORYCLIA [id number] [place] [address] Lymphocytes (Bld) [#/Vol] 1.35 10*3/uL Normal 1.00-4.00 [facility] Comment on above: Order Comment: Speci men Type: BLOOD SPECIMEN Performed By: #### 5 7021-8 ####[facility]ATORYCLIA [id number] [place] [address] Lymphocytes/100 WBC (Bld) 21.0 % Normal [facility] Comment on above: Order Comment: Speci men Type: BLOOD SPECIMEN Performed By: #### 5 7021-8 ####[facility]ORATORYCLIA [id number] [place] [address] MCH (RBC) [Entitic mass] 25.1 pg Low 26.0-34.0 [facility] Comment on above: Order Comment: Speci men Type: BLOOD SPECIMEN Performed By: #### 5 7021-8 ####[facility]ATORYCLIA [id number] [place] [address] MCHC (RBC) [Mass/Vol] 31.2 g/dL Normal 30.5-36.0 [facility] Comment on above: Order Comment: Speci men Type: BLOOD SPECIMEN Performed By: #### 5 7021-8 ####[facility]ORATORYCLIA [id number] [place] [address] MCV (RBC) [Entitic vol] 80.4 fL Normal 80.0-100.0 [facility] Comment on above: Order Comment: Speci men Type: BLOOD SPECIMEN Performed By: #### 5 7021-8 ####[facility]ATORYCLIA [id number] [place] [address] Metamyelocytes/100 WBC (Bld) 3.0 % Normal [facility] Comment on above: Order Comment: Speci men Type: BLOOD SPECIMEN Performed By: #### 5 7021-8 ####[facility]ATORYCLIA [id number] [place] [address] MYELO% 3.0 % Normal [facility] Comment on above: Order Comment: Speci men Type: BLOOD SPECIMEN Performed By: #### 5 7021-8 ####[facility]ATORYCLIA [id number] [place] [address] Neutrophils (Bld) [#/Vol] 4.13 10*3/uL Normal 1.45-7.50 [facility] Comment on above: Order Comment: Speci men Type: BLOOD SPECIMEN Performed By: #### 5 7021-8 ####[facility]ATORYCLIA [id number] [place] [address] Neutrophils/100 WBC (Bld) 64.0 % Normal [facility] Comment on above: Order Comment: Speci men Type: BLOOD SPECIMEN Performed By: #### 5 7021-8 ####[facility]ATORYCLIA [id number] [place] [address] Nucleated RBC/100 WBC (Bld) [Ratio] 1.0 /100 WBC High 0.0 [facility] Comment on above: Order Comment: Speci men Type: BLOOD SPECIMEN Performed By: #### 5 7021-8 ####[facility]ORATORYCLIA [id number] [place] [address] PLATELET ESTIMATE Adequate Normal [facility] Comment on above: Order Comment: Speci men Type: BLOOD SPECIMEN Performed By: #### 5 7021-8 ####[facility]ORATORYCLIA [id number] [place] [address] Platelet mean volume (Bld) [Entitic vol] 10.4 fL Normal 9.0-12.7 [facility] Comment on above: Order Comment: Speci men Type: BLOOD SPECIMEN Performed By: #### 5 7021-8 ####[facility]ATORYCLIA [id number] [place] [address] Platelets (Bld) [#/Vol] 259 10*3/uL Normal 150-400 [facility] Comment on above: Order Comment: Speci men Type: BLOOD SPECIMEN Performed By: #### 5 7021-8 ####[facility]ATORYCLIA [id number] [place] [address] Polychromasia LM Ql (Bld) Slight Normal [facility] Comment on above: Order Comment: Speci men Type: BLOOD SPECIMEN Performed By: #### 5 7021-8 ####[facility]ORYCLIA [id number] [place] [address] RBC (Bld) [#/Vol] 4.23 10*6/uL Normal 3.90-5.20 [facility] Comment on above: Order Comment: Speci men Type: BLOOD SPECIMEN Performed By: #### 5 7021-8 ####[facility]ATORYCLIA [id number] [place] [address] RED CELL MORPH Reviewed Normal [facility] Comment on above: Order Comment: Speci men Type: BLOOD SPECIMEN Performed By: #### 5 7021-8 ####[facility]ORATORYCLIA [id number] [place] [address] WAM - ABS BASO 0.06 k/uL Normal <0.11 [facility] Comment on above: Order Comment: Speci men Type: BLOOD SPECIMEN Performed By: #### 5 7021-8 ####[facility]ORATORYCLIA [id number] [place] [address] WAM - ABS MONO 0.52 k/uL Normal <0.87 [facility] Comment on above: Order Comment: Speci men Type: BLOOD SPECIMEN Performed By: #### 5 7021-8 ####[facility]ATORYCLIA [id number] [place] [address] WAM - MONO% 8.0 % Normal [facility] Comment on above: Order Comment: Speci men Type: BLOOD SPECIMEN Performed By: #### 5 7021-8 ####[facility]ORYCLIA [id number] [place] [address] WAM ABSOLUTE NRBC 0.06 k/uL High <0.01 [facility] Comment on above: Order Comment: Speci men Type: BLOOD SPECIMEN Performed By: #### 5 7021-8 ####[facility]ATORYCLIA [id number] [place] [address] WBC (Bld) [#/Vol] 6.45 10*3/uL Normal 3.70-11.00 [facility] Comment on above: Order Comment: Speci men Type: BLOOD SPECIMEN Performed By: #### 5 7021-8 ####[facility]ATORYCLIA [id number] [place] [address] WBC Left Shift Ql (Bld) Present Normal A [facility] Comment on above: Order Comment: Speci men Type: BLOOD SPECIMEN Performed By: #### 5 7021-8 ####[facility]ATORYCLIA [id number] [place] [address] CONSULT PROGon 04-11-2021 CONSULT PROG Normal [facility] CONSULT PROG Normal [facility] CONSULT PROG Normal [facility] CRP SerPl-mCncon 04-11-2021 CRP [Mass/Vol] 1.7 mg/dL High <0.9 [facility] Comment on above: Order Comment: Speci men Type: BLOOD SPECIMEN Performed By: #### 2 4321-2, 1987- ####[facility]ATORYCLIA [id number] [place] [address] MRI THORACIC SPINE WO/W IVCO Non 04-11-2021 MRI THORACIC SPINE WO/W IVCON Normal [facility] THERAPY NTon 04-11-2021 THERAPY NT Normal [facility] ALLIED HEALTHon 04-10-2021 ALLIED HEALTH Normal [facility] Basic metabolic 2000 panelon 04-10-2021 Anion gap [Moles/Vol] 12 mmol/L Normal 9-18 [facility] Comment on above: Order Comment: Speci men Type: BLOOD SPECIMEN Performed By: #### 2 4321-2 ####[facility]ORYCLIA [id number] [place] [address] Calcium [Mass/Vol] 8.3 mg/dL Low 8.5-10.2 [facility] Comment on above: Order Comment: Speci men Type: BLOOD SPECIMEN Performed By: #### 2 4321-2 ####[facility]ATORYCLIA [id number] [place] [address] Chloride [Moles/Vol] 103 mmol/L Normal 97-105 [facility] Comment on above: Order Comment: Speci men Type: BLOOD SPECIMEN Performed By: #### 2 4321-2 ####[facility]ATORYCLIA [id number] [place] [address] CO2 [Moles/Vol] 21 mmol/L Low 22-30 [facility] Comment on above: Order Comment: Speci men Type: BLOOD SPECIMEN Performed By: #### 2 4321-2 ####[facility]ORYCLIA [id number] [place] [address] Creatinine [Mass/Vol] 0.56 mg/dL Low 0.58-0.96 [facility] Comment on above: Order Comment: Speci men Type: BLOOD SPECIMEN Performed By: #### 2 4321-2 ####[facility] [id number] [place] [address] GFR/1.73 sq M.predicted MDRD (S/P/Bld) [Vol rate/Area] mL/min/{1.73_m2} Normal [facility] Comment on above: Order Comment: Speci men Type: BLOOD SPECIMEN Result Comment: >60e GFR (Estimated GFR) Units of measure: mL/min/1.73 meters squaredeGFR is derived from the reexpressed MDRD Study equation using the following parameters: serum creatinine, age, gender and race. The creatinine assay has been calibrated to be traceable to IDMS. An eGFR <60 mL/min/1.73m2 for >3 months is consistent with chronic kidney disease. Refer to KDOQI guidelines for clinical interpretation. In patients with unstable renal function, e.g. those with acute kidney injury, the eGFR may not accurately reflect actual GFR. Performed By: #### 2 4321-2 ####[facility]ISIA [id number] [place] [address] Glucose [Mass/Vol] 137 mg/dL High 74-99 [facility] Comment on above: Order Comment: Speci men Type: BLOOD SPECIMEN Result Comment: The [place] Diabetes Association (ADA) provides guidance for cutoff values for fasting glucose and random glucose. The ADA defines fasting as no caloric intake for at least 8 hours. Fasting plasma glucose results between 100 to 125 mg/dL indicate increased risk for diabetes (prediabetes).Fasting plasma glucose results greater than or equal to 126 mg/dL meet the criteria for diagnosis of diabetes. In the absence of unequivocal hyperglycemia, results should be confirmed by repeat testing. In a patient with classic symptoms of hyperglycemia or hyperglycemic crisis, random plasma glucose results greater than or equal to 200 mg/dL meet the criteria for diagnosis of diabetes.Reference: Standards of Medical Care in Diabetes 2016, [place] [employer]. Diabetes Care. 2016.39(Suppl 1). Performed By: #### 2 4321-2 ####[facility] LABORATORYCLIA [id number] [place] [address] Potassium [Moles/Vol] 4.2 mmol/L Normal 3.7-5.1 [facility] Comment on above: Order Comment: Speci men Type: BLOOD SPECIMEN Performed By: #### 2 4321-2 ####[facility]ORYCLIA [id number] [place] [address] Sodium [Moles/Vol] 136 mmol/L Normal 136-144 [facility] Comment on above: Order Comment: Speci men Type: BLOOD SPECIMEN Performed By: #### 2 4321-2 ####[facility]ORYCLIA [id number] [place] [address] Urea nitrogen [Mass/Vol] 9 mg/dL Normal 7-21 [facility] Comment on above: Order Comment: Speci men Type: BLOOD SPECIMEN Performed By: #### 2 4321-2 ####[facility]ORYCLIA [id number] [place] [address] Anion gap [Moles/Vol] 9 mmol/L Normal 9-18 [facility] Comment on above: Order Comment: Speci men Type: BLOOD SPECIMEN Performed By: #### 2 4321-2 ####[facility]ORYCLIA [id number] [place] [address] Calcium [Mass/Vol] 8.6 mg/dL Normal 8.5-10.2 [facility] Comment on above: Order Comment: Speci men Type: BLOOD SPECIMEN Performed By: #### 2 4321-2 ####[facility]ORYCLIA [id number] [place] [address] Chloride [Moles/Vol] 108 mmol/L High 97-105 [facility] Comment on above: Order Comment: Speci men Type: BLOOD SPECIMEN Performed By: #### 2 4321-2 ####[facility]ORYCLIA [id number] [place] [address] CO2 [Moles/Vol] 24 mmol/L Normal 22-30 [facility] Comment on above: Order Comment: Speci men Type: BLOOD SPECIMEN Performed By: #### 2 4321-2 ####[facility]ORYCLIA [id number] [place] [address] Creatinine [Mass/Vol] 0.52 mg/dL Low 0.58-0.96 [facility] Comment on above: Order Comment: [facility] Type: BLOOD SPECIMEN Performed By: #### 2 4321-2 ####[facility] LABORATORYCLIA [id number] [place] [address] GFR/1.73 sq M.predicted MDRD (S/P/Bld) [Vol rate/Area] mL/min/{1.73_m2} Normal [facility] Comment on above: Order Comment: Speci men Type: BLOOD SPECIMEN Result Comment: >60e GFR (Estimated GFR) Units of measure: mL/min/1.73 meters squaredeGFR is derived from the reexpressed MDRD Study equation using the following parameters: serum creatinine, age, gender and race. The creatinine assay has been calibrated to be traceable to IDMS. An eGFR <60 mL/min/1.73m2 for >3 months is consistent with chronic kidney disease. Refer to KDOQI guidelines for clinical interpretation. In patients with unstable renal function, e.g. those with acute kidney injury, the eGFR may not accurately reflect actual GFR. Performed By: #### 2 4321-2 ####[facility] LABORATORYCLIA [id number] [place] [address] Glucose [Mass/Vol] 99 mg/dL Normal 74-99 [facility] Comment on above: Order Comment: [facility] Type: BLOOD SPECIMEN Result Comment: The [place] Diabetes Association (ADA) provides guidance for cutoff values for fasting glucose and random glucose. The ADA defines fasting as no caloric intake for at least 8 hours. Fasting plasma glucose results between 100 to 125 mg/dL indicate increased risk for diabetes (prediabetes).Fasting plasma glucose results greater than or equal to 126 mg/dL meet the criteria for diagnosis of diabetes. In the absence of unequivocal hyperglycemia, results should be confirmed by repeat testing. In a patient with classic symptoms of hyperglycemia or hyperglycemic crisis, random plasma glucose results greater than or equal to 200 mg/dL meet the criteria for diagnosis of diabetes.Reference: Standards of Medical Care in Diabetes 2016, [place] [employer]. Diabetes Care. 2016.39(Suppl 1). Performed By: #### 2 4321-2 ####[facility] LABORATORYCLIA [id number] [place] [address] Potassium [Moles/Vol] 4.1 mmol/L Normal 3.7-5.1 [facility] Comment on above: Order Comment: Speci men Type: BLOOD SPECIMEN Performed By: #### 2 4321-2 ####[facility]ORYCLIA [id number] [place] [address] Sodium [Moles/Vol] 141 mmol/L Normal 136-144 [facility] Comment on above: Order Comment: Speci men Type: BLOOD SPECIMEN Performed By: #### 2 4321-2 ####[facility]ORYCLIA [id number] [place] [address] Urea nitrogen [Mass/Vol] 5 mg/dL Low 05-10 [facility] Comment on above: Order Comment: Speci men Type: BLOOD SPECIMEN Performed By: #### 2 4321-2 ####[facility] LABORATORYCLIA [id number] [place] [address] CASE MANAGEMon 04-10-2021 CASE MANAGEM Normal [facility] CBC W Auto Differential pane l (Bld)on 04-10-2021 Basophils/100 WBC (Bld) 0.0 % Normal A [facility] Comment on above: Order Comment: Speci men Type: BLOOD SPECIMEN Performed By: #### 5 7021-8 ####[facility]ORYCLIA [id number] [place] [address] Differential cell count method Nom (Bld) Manual Normal [facility] Comment on above: Order Comment: Speci men Type: BLOOD SPECIMEN Performed By: #### 5 7021-8 ####[facility]ORYCLIA [id number] [place] [address] Eosinophils (Bld) [#/Vol] 0.00 10*3/uL Normal <0.46 [facility] Comment on above: Order Comment: Speci men Type: BLOOD SPECIMEN Performed By: #### 5 7021-8 ####[facility]ORYCLIA [id number] [place] [address] Eosinophils/100 WBC (Bld) 0.0 % Normal [facility] Comment on above: Order Comment: Speci men Type: BLOOD SPECIMEN Performed By: #### 5 7021-8 ####[facility] LABORATORYCLIA [id number] [place] [address] Erythrocyte distribution width (RBC) [Ratio] 15.2 % High 11.5-15.0 [facility] Comment on above: Order Comment: Speci men Type: BLOOD SPECIMEN Performed By: #### 5 7021-8 ####[facility]ORATORYCLIA [id number] [place] [address] Hematocrit (Bld) [Volume fraction] 32.8 % Low 36.0-46.0 [facility] Comment on above: Order Comment: Speci men Type: BLOOD SPECIMEN Performed By: #### 5 7021-8 ####[facility] LABORATORYCLIA [id number] [place] [address] Hemoglobin (Bld) [Mass/Vol] 10.2 g/dL Low 11.5-15.5 [facility] Comment on above: Order Comment: Speci men Type: BLOOD SPECIMEN Performed By: #### 5 7021-8 ####[facility]ORATORYCLIA [id number] [place] [address] Lymphocytes (Bld) [#/Vol] 1.08 10*3/uL Normal 1.00-4.00 [facility] Comment on above: Order Comment: Speci men Type: BLOOD SPECIMEN Performed By: #### 5 7021-8 ####[facility]ORATORYCLIA [id number] [place] [address] Lymphocytes/100 WBC (Bld) 14.0 % Normal [facility] Comment on above: Order Comment: Speci men Type: BLOOD SPECIMEN Performed By: #### 5 7021-8 ####[facility]ORYCLIA [id number] [place] [address] MCH (RBC) [Entitic mass] 25.0 pg Low 26.0-34.0 [facility] Comment on above: Order Comment: Speci men Type: BLOOD SPECIMEN Performed By: #### 5 7021-8 ####[facility]ORYCLIA [id number] [place] [address] MCHC (RBC) [Mass/Vol] 31.1 g/dL Normal 30.5-36.0 [facility] Comment on above: Order Comment: Speci men Type: BLOOD SPECIMEN Performed By: #### 5 7021-8 ####[facility]ORYCLIA [id number] [place] [address] MCV (RBC) [Entitic vol] 80.4 fL Normal 80.0-100.0 [facility] Comment on above: Order Comment: Speci men Type: BLOOD SPECIMEN Performed By: #### 5 7021-8 ####[facility]ORYCLIA [id number] [place] [address] Metamyelocytes/100 WBC (Bld) 2.0 % Normal [facility] Comment on above: Order Comment: Speci men Type: BLOOD SPECIMEN Performed By: #### 5 7021-8 ####[facility]ORATORYCLIA [id number] [place] [address] Neutrophils (Bld) [#/Vol] 5.73 10*3/uL Normal 1.45-7.50 [facility] Comment on above: Order Comment: Speci men Type: BLOOD SPECIMEN Performed By: #### 5 7021-8 ####[facility]ORYCLIA [id number] [place] [address] Neutrophils/100 WBC (Bld) 74.0 % Normal [facility] Comment on above: Order Comment: Speci men Type: BLOOD SPECIMEN Performed By: #### 5 7021-8 ####[facility]ORYCLIA [id number] [place] [address] Nucleated RBC/100 WBC (Bld) [Ratio] 1.0 /100 WBC High 0.0 [facility] Comment on above: Order Comment: Speci men Type: BLOOD SPECIMEN Performed By: #### 5 7021-8 ####[facility]ORYCLIA [id number] [place] [address] PLATELET ESTIMATE Adequate Normal [facility] Comment on above: Order Comment: Speci men Type: BLOOD SPECIMEN Performed By: #### 5 7021-8 ####[facility]ORYCLIA [id number] [place] [address] Platelet mean volume (Bld) [Entitic vol] 11.2 fL Normal 9.0-12.7 [facility] Comment on above: Order Comment: Speci men Type: BLOOD SPECIMEN Performed By: #### 5 7021-8 ####[facility]ORYCLIA [id number] [place] [address] Platelets (Bld) [#/Vol] 195 10*3/uL Normal 150-400 [facility] Comment on above: Order Comment: Speci men Type: BLOOD SPECIMEN Performed By: #### 5 7021-8 ####[facility]ORYCLIA [id number] [place] [address] Polychromasia LM Ql (Bld) Slight Normal [facility] Comment on above: Order Comment: Speci men Type: BLOOD SPECIMEN Performed By: #### 5 7021-8 ####[facility]ORATORYCLIA [id number] [place] [address] RBC (Bld) [#/Vol] 4.08 10*6/uL Normal 3.90-5.20 [facility] Comment on above: Order Comment: Speci men Type: BLOOD SPECIMEN Performed By: #### 5 7021-8 ####[facility]ORYCLIA [id number] [place] [address] RED CELL MORPH Reviewed Normal [facility] Comment on above: Order Comment: Speci men Type: BLOOD SPECIMEN Performed By: #### 5 7021-8 ####[facility]ORYCLIA [id number] [place] [address] WAM - ABS BASO 0.00 k/uL Normal <0.11 [facility] Comment on above: Order Comment: Speci men Type: BLOOD SPECIMEN Performed By: #### 5 7021-8 ####[facility]ORYCLIA [id number] [place] [address] WAM - ABS MONO 0.77 k/uL Normal <0.87 [facility] Comment on above: Order Comment: Speci men Type: BLOOD SPECIMEN Performed By: #### 5 7021-8 ####[facility] LABORATORYCLIA [id number] [place] [address] WAM - MONO% 10.0 % Normal [facility] Comment on above: Order Comment: Speci men Type: BLOOD SPECIMEN Performed By: #### 5 7021-8 ####[facility]ORYCLIA [id number] [place] [address] WAM ABSOLUTE NRBC 0.08 k/uL High <0.01 [facility] Comment on above: Order Comment: Speci men Type: BLOOD SPECIMEN Performed By: #### 5 7021-8 ####[facility]ORATORYCLIA [id number] [place] [address] WBC (Bld) [#/Vol] 7.74 10*3/uL Normal 3.70-11.00 [facility] Comment on above: Order Comment: Speci men Type: BLOOD SPECIMEN Performed By: #### 5 7021-8 ####[facility]ORATORYCLIA [id number] [place] [address] CONSULT PROGon 04-10-2021 CONSULT PROG Normal [facility] CONSULT PROG Normal [facility] NURSING PROGon 04-10-2021 NURSING PROG Normal [facility] Osmolality SerPlon 1 Osmolality [Osmolality] 289 mosm/kg Normal 275-300 [facility] Comment on above: Order Comment: Speci men Type: BLOOD SPECIMEN Performed By: #### 2 692-2 ####[facility]ORATORYCLIA [id number] [place] [address] THERAPY NTon 04-10-2021 THERAPY NT Normal [facility] Bacteria Bld Culton 04-09-20 21 Bacteria identified Cx Nom (Bld) CULTURE, BLOOD: No growth 5 days Normal [facility] Comment on above: Performed By: #### 6 00-7 ####[facility]ORATORYCLIA [id number] [place] [address] Basic metabolic 2000 panelon 04-09-2021 Anion gap [Moles/Vol] 9 mmol/L Normal 9-18 [facility] Comment on above: Order Comment: Speci men Type: BLOOD SPECIMEN Performed By: #### 2 4321-2 ####[facility]ORATORYCLIA [id number] [place] [address] Calcium [Mass/Vol] 8.5 mg/dL Normal 8.5-10.2 [facility] Comment on above: Order Comment: Speci men Type: BLOOD SPECIMEN Performed By: #### 2 4321-2 ####[facility]ATORYCLIA [id number] [place] [address] Chloride [Moles/Vol] 107 mmol/L High 97-105 [facility] Comment on above: Order Comment: Speci men Type: BLOOD SPECIMEN Performed By: #### 2 4321-2 ####[facility]ORATORYCLIA [id number] [place] [address] CO2 [Moles/Vol] 24 mmol/L Normal 22-30 [facility] Comment on above: Order Comment: Speci men Type: BLOOD SPECIMEN Performed By: #### 2 4321-2 ####[facility]ORATORYCLIA [id number] [place] [address] Creatinine [Mass/Vol] 0.52 mg/dL Low 0.58-0.96 [facility] Comment on above: Order Comment: Speci men Type: BLOOD SPECIMEN Performed By: #### 2 4321-2 ####[facility]ORATORYCLIA [id number] [place] [address] GFR/1.73 sq M.predicted MDRD (S/P/Bld) [Vol rate/Area] mL/min/{1.73_m2} Normal [facility] Comment on above: Order Comment: Speci men Type: BLOOD SPECIMEN Result Comment: >60e GFR (Estimated GFR) Units of measure: mL/min/1.73 meters squaredeGFR is derived from the reexpressed MDRD Study equation using the following parameters: serum creatinine, age, gender and race. The creatinine assay has been calibrated to be traceable to IDMS. An eGFR <60 mL/min/1.73m2 for >3 months is consistent with chronic kidney disease. Refer to KDOQI guidelines for clinical interpretation. In patients with unstable renal function, e.g. those with acute kidney injury, the eGFR may not accurately reflect actual GFR. Performed By: #### 2 4321-2 ####[facility]ORATORYCLIA [id number] [place] [address] Glucose [Mass/Vol] 110 mg/dL High 74-99 [facility] Comment on above: Order Comment: Speci men Type: BLOOD SPECIMEN Result Comment: The [place] Diabetes [employer] (ADA) provides guidance for cutoff values for fasting glucose and random glucose. The ADA defines fasting as no caloric intake for at least 8 hours. Fasting plasma glucose results between 100 to 125 mg/dL indicate increased risk for diabetes (prediabetes).Fasting plasma glucose results greater than or equal to 126 mg/dL meet the criteria for diagnosis of diabetes. In the absence of unequivocal hyperglycemia, results should be confirmed by repeat testing. In a patient with classic symptoms of hyperglycemia or hyperglycemic crisis, random plasma glucose results greater than or equal to 200 mg/dL meet the criteria for diagnosis of diabetes.Reference: Standards of Medical Care in Diabetes 2016, [place] [employer]. Diabetes Care. 2016.39(Suppl 1). Performed By: #### 2 4321-2 ####[facility]ORATORYCLIA [id number] [place] [address] Potassium [Moles/Vol] 3.6 mmol/L Low 3.7-5.1 [facility] Comment on above: Order Comment: Speci men Type: BLOOD SPECIMEN Performed By: #### 2 4321-2 ####[facility]ORATORYCLIA [id number] [place] [address] Sodium [Moles/Vol] 140 mmol/L Normal 136-144 [facility] Comment on above: Order Comment: Speci men Type: BLOOD SPECIMEN Performed By: #### 2 4321-2 ####[facility]ATORYCLIA [id number] [place] [address] Urea nitrogen [Mass/Vol] 4 mg/dL Low - [facility] Comment on above: Order Comment: Speci men Type: BLOOD SPECIMEN Performed By: #### 2 4321-2 ####[facility]ORYCLIA [id number] [place] [address] CBC W Auto Differential pane l (Bld)on 04-09-2021 Basophilic stippling LM Ql (Bld) Present Normal [facility] Comment on above: Order Comment: Speci men Type: BLOOD SPECIMEN Performed By: #### 5 7021-8 ####[facility]ORYCLIA [id number] [place] [address] Basophils/100 WBC (Bld) 0.0 % Normal [facility] Comment on above: Order Comment: Speci men Type: BLOOD SPECIMEN Performed By: #### 5 7021-8 ####[facility]ORYCLIA [id number] [place] [address] Differential cell count method Nom (Bld) Manual Normal [facility] Comment on above: Order Comment: Speci men Type: BLOOD SPECIMEN Performed By: #### 5 7021-8 ####[facility]ORYCLIA [id number] [place] [address] Eosinophils (Bld) [#/Vol] 0.00 10*3/uL Normal <0.46 [facility] Comment on above: Order Comment: Speci men Type: BLOOD SPECIMEN Performed By: #### 5 7021-8 ####[facility]ORYCLIA [id number] [place] [address] Eosinophils/100 WBC (Bld) 0.0 % Normal [facility] Comment on above: Order Comment: Speci men Type: BLOOD SPECIMEN Performed By: #### 5 7021-8 ####[facility]ORYCLIA [id number] [place] [address] Erythrocyte distribution width (RBC) [Ratio] 15.1 % High 11.5-15.0 [facility] Comment on above: Order Comment: Speci men Type: BLOOD SPECIMEN Performed By: #### 5 7021-8 ####[facility]ORYCLIA [id number] [place] [address] Hematocrit (Bld) [Volume fraction] 30.7 % Low 36.0-46.0 [facility] Comment on above: Order Comment: Speci men Type: BLOOD SPECIMEN Performed By: #### 5 7021-8 ####[facility]ATORYCLIA [id number] [place] [address] Hemoglobin (Bld) [Mass/Vol] 9.7 g/dL Low 11.5-15.5 [facility] Comment on above: Order Comment: Speci men Type: BLOOD SPECIMEN Performed By: #### 5 7021-8 ####[facility]ATORYCLIA [id number] [place] [address] Lymphocytes (Bld) [#/Vol] 0.78 10*3/uL Low 1.00-4.00 [facility] Comment on above: Order Comment: Speci men Type: BLOOD SPECIMEN Performed By: #### 5 7021-8 ####[facility]ATORYCLIA [id number] [place] [address] Lymphocytes/100 WBC (Bld) 13.0 % Normal [facility] Comment on above: Order Comment: Speci men Type: BLOOD SPECIMEN Performed By: #### 5 7021-8 ####[facility]ORATORYCLIA [id number] [place] [address] MCH (RBC) [Entitic mass] 25.4 pg Low 26.0-34.0 [facility] Comment on above: Order Comment: Speci men Type: BLOOD SPECIMEN Performed By: #### 5 7021-8 ####[facility]ATORYCLIA [id number] [place] [address] MCHC (RBC) [Mass/Vol] 31.6 g/dL Normal 30.5-36.0 [facility] Comment on above: Order Comment: Speci men Type: BLOOD SPECIMEN Performed By: #### 5 7021-8 ####[facility]ORATORYCLIA [id number] [place] [address] MCV (RBC) [Entitic vol] 80.4 fL Normal 80.0-100.[address] [facility] Comment on above: Order Comment: Speci men Type: BLOOD SPECIMEN Performed By: #### 5 7021-8 ####[facility]ORYCLIA [id number] [place] [address] Metamyelocytes/100 WBC (Bld) 1.0 % Normal [facility] Comment on above: Order Comment: Speci men Type: BLOOD SPECIMEN Performed By: #### 5 7021-8 ####[facility]ORYCLIA [id number] [place] [address] MYELO% 2.0 % Normal [facility] Comment on above: Order Comment: Speci men Type: BLOOD SPECIMEN Performed By: #### 5 7021-8 ####[facility]ORYCLIA [id number] [place] [address] Neutrophils (Bld) [#/Vol] 4.50 10*3/uL Normal 1.45-7.50 [facility] Comment on above: Order Comment: Speci men Type: BLOOD SPECIMEN Performed By: #### 5 7021-8 ####[facility]ORYCLIA [id number] [place] [address] Neutrophils/100 WBC (Bld) 75.0 % Normal [facility] Comment on above: Order Comment: Speci men Type: BLOOD SPECIMEN Performed By: #### 5 7021-8 ####[facility]ORYCLIA [id number] [place] [address] Nucleated RBC/100 WBC (Bld) [Ratio] 0.0 /100 WBC Normal 0.0 [facility] Comment on above: Order Comment: Speci men Type: BLOOD SPECIMEN Performed By: #### 5 7021-8 ####[facility]ORYCLIA [id number] [place] [address] Ovalocytes LM Ql (Bld) Few Normal [facility] Comment on above: Order Comment: Speci men Type: BLOOD SPECIMEN Performed By: #### 5 7021-8 ####[facility]ORYCLIA [id number] [place] [address] PLATELET ESTIMATE Decreased Normal [facility] Comment on above: Order Comment: Speci men Type: BLOOD SPECIMEN Performed By: #### 5 7021-8 ####[facility]ORYCLIA [id number] [place] [address] Platelet mean volume (Bld) [Entitic vol] 10.7 fL Normal 9.0-12.7 [facility] Comment on above: Order Comment: Speci men Type: BLOOD SPECIMEN Performed By: #### 5 7021-8 ####[facility]ATORYCLIA [id number] [place] [address] Platelets (Bld) [#/Vol] 113 10*3/uL Low 150-400 [facility] Comment on above: Order Comment: Speci men Type: BLOOD SPECIMEN Performed By: #### 5 7021-8 ####[facility] LABORATORYCLIA [id number] [place] [address] Polychromasia LM Ql (Bld) Slight Normal [facility] Comment on above: Order Comment: Speci men Type: BLOOD SPECIMEN Performed By: #### 5 7021-8 ####[facility] LABORATORYCLIA [id number] [place] [address] RBC (Bld) [#/Vol] 3.82 10*6/uL Low 3.90-5.20 [facility] Comment on above: Order Comment: Speci men Type: BLOOD SPECIMEN Performed By: #### 5 7021-8 ####[facility]ORATORYCLIA [id number] [place] [address] RED CELL MORPH Reviewed Normal [facility] Comment on above: Order Comment: Speci men Type: BLOOD SPECIMEN Performed By: #### 5 7021-8 ####[facility]ORATORYCLIA [id number] [place] [address] WAM - ABS BASO 0.00 k/uL Normal <0.11 [facility] Comment on above: Order Comment: Speci men Type: BLOOD SPECIMEN Performed By: #### 5 7021-8 ####[facility]ORATORYCLIA [id number] [place] [address] WAM - ABS MONO 0.54 k/uL Normal <0.87 [facility] Comment on above: Order Comment: Speci men Type: BLOOD SPECIMEN Performed By: #### 5 7021-8 ####[facility] LABORATORYCLIA [id number] [place] [address] WAM - MONO% 9.0 % Normal [facility] Comment on above: Order Comment: Speci men Type: BLOOD SPECIMEN Performed By: #### 5 7021-8 ####[facility]ORATORYCLIA [id number] [place] [address] WAM ABSOLUTE NRBC <0.01 Normal <0.01 [facility] Comment on above: Order Comment: Speci men Type: BLOOD SPECIMEN Performed By: #### 5 7021-8 ####[facility] LABORATORYCLIA [id number] [place] [address] WBC (Bld) [#/Vol] 6.00 10*3/uL Normal 3.70-11.00 [facility] Comment on above: Order Comment: Speci men Type: BLOOD SPECIMEN Performed By: #### 5 7021-8 ####[facility] LABORATORYCLIA [id number] [place] [address] WBC Left Shift Ql (Bld) Present Normal A [facility] Comment on above: Order Comment: Speci men Type: BLOOD SPECIMEN Performed By: #### 5 7021-8 ####[facility] LABORATORYCLIA [id number] [place] [address] CONSULT PROGon 04-09-2021 CONSULT PROG Normal [facility] CONSULT PROG Normal [facility] CONSULT PROG Normal [facility] NURSING PROGon 04-09-2021 NURSING PROG Normal [facility] NURSING PROG Normal [facility] Osmolality Uron 04-09-2021 Osmolality (U) [Osmolality] 237 mosm/kg Normal 50-1,200 [facility] Comment on above: Order Comment: Speci men Type: URINE SPECIMEN Performed By: #### 2 695-5 ####[facility]ORATORYCLIA [id number] [place] [address] Basic metabolic 2000 panelon 04-08-2021 Anion gap [Moles/Vol] 9 mmol/L Normal 9-18 [facility] Comment on above: Order Comment: Speci men Type: BLOOD SPECIMEN Performed By: #### 2 4321-2, FERR ####[facility]ORATORYCLIA [id number] [place] [address] Calcium [Mass/Vol] 8.2 mg/dL Low 8.5-10.2 [facility] Comment on above: Order Comment: Speci men Type: BLOOD SPECIMEN Performed By: #### 2 4321-2, FERR ####[facility] LABORATORYCLIA [id number] [place] [address] Chloride [Moles/Vol] 109 mmol/L High 97-105 [facility] Comment on above: Order Comment: Speci men Type: BLOOD SPECIMEN Performed By: #### 2 4321-2, FERR ####[facility]ATORYCLIA [id number] [place] [address] CO2 [Moles/Vol] 24 mmol/L Normal 22-30 [facility] Comment on above: Order Comment: Speci men Type: BLOOD SPECIMEN Performed By: #### 2 4321-2, FERR ####[facility]ATORYCLIA [id number] [place] [address] Creatinine [Mass/Vol] 0.48 mg/dL Low 0.58-0.96 [facility] Comment on above: Order Comment: Speci men Type: BLOOD SPECIMEN Performed By: #### 2 4321-2, FERR ####[facility]ORATORYCLIA [id number] [place] [address] GFR/1.73 sq M.predicted MDRD (S/P/Bld) [Vol rate/Area] mL/min/{1.73_m2} Normal [facility] Comment on above: Order Comment: Speci men Type: BLOOD SPECIMEN Result Comment: >60e GFR (Estimated GFR) Units of measure: mL/min/1.73 meters squaredeGFR is derived from the reexpressed MDRD Study equation using the following parameters: serum creatinine, age, gender and race. The creatinine assay has been calibrated to be traceable to IDMS. An eGFR <60 mL/min/1.73m2 for >3 months is consistent with chronic kidney disease. Refer to KDOQI guidelines for clinical interpretation. In patients with unstable renal function, e.g. those with acute kidney injury, the eGFR may not accurately reflect actual GFR. Performed By: #### 2 4321-2, FERR ####[facility] LABORATORYCLIA [id number] [place] [address] Glucose [Mass/Vol] 118 mg/dL High 74-99 [facility] Comment on above: Order Comment: Speci men Type: BLOOD SPECIMEN Result Comment: The [place] [employer] (ADA) provides guidance for cutoff values for fasting glucose and random glucose. The ADA defines fasting as no caloric intake for at least 8 hours. Fasting plasma glucose results between 100 to 125 mg/dL indicate increased risk for diabetes (prediabetes).Fasting plasma glucose results greater than or equal to 126 mg/dL meet the criteria for diagnosis of diabetes. In the absence of unequivocal hyperglycemia, results should be confirmed by repeat testing. In a patient with classic symptoms of hyperglycemia or hyperglycemic crisis, random plasma glucose results greater than or equal to 200 mg/dL meet the criteria for diagnosis of diabetes.Reference: Standards of Medical Care in Diabetes 2016, [place] [employer]. Diabetes Care. 2016.39(Suppl 1). Performed By: #### 2 4321-2, FERR ####[facility] LABORATORYCLIA [id number] [place] [address] Potassium [Moles/Vol] 4.0 mmol/L Normal 3.7-5.1 [facility] Comment on above: Order Comment: Speci men Type: BLOOD SPECIMEN Performed By: #### 2 4321-2, FERR ####[facility] LABORATORYCLIA [id number] [place] [address] Sodium [Moles/Vol] 142 mmol/L Normal 136-144 [facility] Comment on above: Order Comment: Speci men Type: BLOOD SPECIMEN Performed By: #### 2 4321-2, FERR ####[facility] LABORATORYCLIA [id number] [place] [address] Urea nitrogen [Mass/Vol] 5 mg/dL Low - [facility] Comment on above: Order Comment: Speci men Type: BLOOD SPECIMEN Performed By: #### 2 4321-2, FERR ####[facility] LABORATORYCLIA [id number] [place] [address] CBC W Auto Differential pane l (Bld)on 04-08-2021 Basophils (Bld) [#/Vol] 10*3/uL Normal <0.11 [facility] Comment on above: Order Comment: Speci men Type: BLOOD SPECIMEN Performed By: #### 5 7021-8 ####[facility] LABORATORYCLIA [id number] [place] [address] Basophils/100 WBC (Bld) 0.5 % Normal [facility] Comment on above: Order Comment: Speci men Type: BLOOD SPECIMEN Performed By: #### 5 7021-8 ####[facility]ATORYCLIA [id number] [place] [address] Differential cell count method Nom (Bld) Auto Normal [facility] Comment on above: Order Comment: Speci men Type: BLOOD SPECIMEN Performed By: #### 5 7021-8 ####[facility]ORYCLIA [id number] [place] [address] Eosinophils (Bld) [#/Vol] 0.03 10*3/uL Normal <0.46 [facility] Comment on above: Order Comment: Speci men Type: BLOOD SPECIMEN Performed By: #### 5 7021-8 ####[facility]ORATORYCLIA [id number] [place] [address] Eosinophils/100 WBC (Bld) 1.4 % Normal [facility] Comment on above: Order Comment: Speci men Type: BLOOD SPECIMEN Performed By: #### 5 7021-8 ####[facility] LABORATORYCLIA [id number] [place] [address] Erythrocyte distribution width (RBC) [Ratio] 14.9 % Normal 11.5-15.0 [facility] Comment on above: Order Comment: Speci men Type: BLOOD SPECIMEN Performed By: #### 5 7021-8 ####[facility] LABORATORYCLIA [id number] [place] [address] Hematocrit (Bld) [Volume fraction] 28.4 % Low 36.0-46.0 [facility] Comment on above: Order Comment: Speci men Type: BLOOD SPECIMEN Performed By: #### 5 7021-8 ####[facility]ORATORYCLIA [id number] [place] [address] Hemoglobin (Bld) [Mass/Vol] 9.0 g/dL Low 11.5-15.5 [facility] Comment on above: Order Comment: Speci men Type: BLOOD SPECIMEN Performed By: #### 5 7021-8 ####[facility] LABORATORYCLIA [id number] [place] [address] IMMATURE GRAN % 2.9 % Normal [facility] Comment on above: Order Comment: Speci men Type: BLOOD SPECIMEN Result Comment: Diff erential confirmed by visual scan of peripheral blood smear slide Performed By: #### 5 7021-8 ####[facility] LABORATORYCLIA [id number] [place] [address] IMMATURE GRAN ABS 0.06 k/uL Normal <0.10 [facility] Comment on above: Order Comment: Speci men Type: BLOOD SPECIMEN Performed By: #### 5 7021-8 ####[facility]ATORYCLIA [id number] [place] [address] Lymphocytes (Bld) [#/Vol] 0.45 10*3/uL Low 1.00-4.00 [facility] Comment on above: Order Comment: Speci men Type: BLOOD SPECIMEN Performed By: #### 5 7021-8 ####[facility]ATORYCLIA [id number] [place] [address] Lymphocytes/100 WBC (Bld) 21.7 % Normal [facility] Comment on above: Order Comment: Speci men Type: BLOOD SPECIMEN Performed By: #### 5 7021-8 ####[facility] LABORATORYCLIA [id number] [place] [address] MCH (RBC) [Entitic mass] 25.3 pg Low 26.0-34.0 [facility] Comment on above: Order Comment: Speci men Type: BLOOD SPECIMEN Performed By: #### 5 7021-8 ####[facility]ORATORYCLIA [id number] [place] [address] MCHC (RBC) [Mass/Vol] 31.7 g/dL Normal 30.5-36.0 [facility] Comment on above: Order Comment: Speci men Type: BLOOD SPECIMEN Performed By: #### 5 7021-8 ####[facility]ORATORYCLIA [id number] [place] [address] MCV (RBC) [Entitic vol] 79.8 fL Low 80.0-100.0 [facility] Comment on above: Order Comment: Speci men Type: BLOOD SPECIMEN Performed By: #### 5 7021-8 ####[facility]ORATORYCLIA [id number] [place] [address] Monocytes (Bld) [#/Vol] 0.19 10*3/uL Normal <0.87 [facility] Comment on above: Order Comment: Speci men Type: BLOOD SPECIMEN Performed By: #### 5 7021-8 ####[facility]ORATORYCLIA [id number] [place] [address] Monocytes/100 WBC (Bld) 9.2 % Normal [facility] Comment on above: Order Comment: Speci men Type: BLOOD SPECIMEN Performed By: #### 5 7021-8 ####[facility]ORATORYCLIA [id number] [place] [address] Neutrophils (Bld) [#/Vol] 1.33 10*3/uL Low 1.45-7.50 [facility] Comment on above: Order Comment: Speci men Type: BLOOD SPECIMEN Performed By: #### 5 7021-8 ####[facility]ORATORYCLIA [id number] [place] [address] Neutrophils/100 WBC (Bld) 64.3 % Normal [facility] Comment on above: Order Comment: Speci men Type: BLOOD SPECIMEN Performed By: #### 5 7021-8 ####[facility]ORATORYCLIA [id number] [place] [address] Nucleated RBC (Bld) [#/Vol] 10*3/uL Normal <0.01 [facility] Comment on above: Order Comment: Speci men Type: BLOOD SPECIMEN Performed By: #### 5 7021-8 ####[facility]ORATORYCLIA [id number] [place] [address] Nucleated RBC/100 WBC (Bld) [Ratio] 0.0 /100 WBC Normal 0.0 [facility] Comment on above: Order Comment: Speci men Type: BLOOD SPECIMEN Performed By: #### 5 7021-8 ####[facility]ORATORYCLIA [id number] [place] [address] Platelet mean volume (Bld) [Entitic vol] 10.9 fL Normal 9.0-12.7 [facility] Comment on above: Order Comment: Speci men Type: BLOOD SPECIMEN Performed By: #### 5 7021-8 ####[facility]ORATORYCLIA [id number] [place] [address] Platelets (Bld) [#/Vol] 82 10*3/uL Low 150-400 [facility] Comment on above: Order Comment: Speci men Type: BLOOD SPECIMEN Result Comment: Plat elet count confirmed by manual review of peripheral blood smear Performed By: #### 5 7021-8 ####[facility]ORATORYCLIA [id number] [place] [address] RBC (Bld) [#/Vol] 3.56 10*6/uL Low 3.90-5.20 [facility] Comment on above: Order Comment: Speci men Type: BLOOD SPECIMEN Performed By: #### 5 7021-8 ####[facility]ORYCLIA [id number] [place] [address] WBC (Bld) [#/Vol] 2.07 10*3/uL Low 3.70-11.00 [facility] Comment on above: Order Comment: Speci men Type: BLOOD SPECIMEN Performed By: #### 5 7021-8 ####[facility]ORATORYCLIA [id number] [place] [address] CONSULT PROGon 04-08-2021 CONSULT PROG Normal [facility] CONSULT PROG Normal [facility] FERRITIN BLDon 04-08-2021 Ferritin [Mass/Vol] 306.2 ng/mL High 14.7-205.1 [facility] Comment on above: Order Comment: Speci men Type: BLOOD SPECIMEN Performed By: #### 2 4321-2, FERR ####[facility]ORATORYCLIA [id number] [place] [address] NURSING PROGon 04-08-2021 NURSING PROG Normal [facility] Vancomycin random [Mass/Vol] on 04-08-2021 Vancomycin [Mass/Vol] 14.8 ug/mL Normal 10.0-20.0 [facility] Comment on above: Order Comment: Speci men Type: BLOOD SPECIMEN Result Comment: Refe rence ranges and high/low indicator flags are provided as general guidelines only. The treating physician must determine appropriate target levels/dosing based on the specific clinical situation. Performed By: #### 4 091-5 ####[facility]ORATORYCLIA [id number] [place] [address] Basic metabolic 2000 panelon 04-07-2021 Anion gap [Moles/Vol] 8 mmol/L Low 9-18 [facility] Comment on above: Order Comment: Speci men Type: BLOOD SPECIMEN Performed By: #### 2 4321-2 ####[facility]ORYCLIA [id number] [place] [address] Calcium [Mass/Vol] 7.9 mg/dL Low 8.5-10.2 [facility] Comment on above: Order Comment: Speci men Type: BLOOD SPECIMEN Performed By: #### 2 4321-2 ####[facility]ORATORYCLIA [id number] [place] [address] Chloride [Moles/Vol] 109 mmol/L High 97-105 [facility] Comment on above: Order Comment: Speci men Type: BLOOD SPECIMEN Performed By: #### 2 4321-2 ####[facility]ORATORYCLIA [id number] [place] [address] CO2 [Moles/Vol] 24 mmol/L Normal 22-30 [facility] Comment on above: Order Comment: Speci men Type: BLOOD SPECIMEN Performed By: #### 2 4321-2 ####[facility]ORATORYCLIA [id number] [place] [address] Creatinine [Mass/Vol] 0.45 mg/dL Low 0.58-0.96 [facility] Comment on above: Order Comment: Speci men Type: BLOOD SPECIMEN Performed By: #### 2 4321-2 ####[facility]ATORYCLIA [id number] [place] [address] GFR/1.73 sq M.predicted MDRD (S/P/Bld) [Vol rate/Area] mL/min/{1.73_m2} Normal [facility] Comment on above: Order Comment: Speci men Type: BLOOD SPECIMEN Result Comment: >60e GFR (Estimated GFR) Units of measure: mL/min/1.73 meters squaredeGFR is derived from the reexpressed MDRD Study equation using the following parameters: serum creatinine, age, gender and race. The creatinine assay has been calibrated to be traceable to IDFL. An eGFR <60 mL/min/1.73m2 for >3 months is consistent with chronic kidney disease. Refer to KDOQI guidelines for clinical interpretation. In patients with unstable renal function, e.g. those with acute kidney injury, the eGFR may not accurately reflect actual GFR. Performed By: #### 2 4321-2 ####[facility]ORATORYCLIA [id number] [place] [address] Glucose [Mass/Vol] 87 mg/dL Normal 74-99 [facility] Comment on above: Order Comment: Speci men Type: BLOOD SPECIMEN Result Comment: The [place] [employer] (ADA) provides guidance for cutoff values for fasting glucose and random glucose. The ADA defines fasting as no caloric intake for at least 8 hours. Fasting plasma glucose results between 100 to 125 mg/dL indicate increased risk for diabetes (prediabetes).Fasting plasma glucose results greater than or equal to 126 mg/dL meet the criteria for diagnosis of diabetes. In the absence of unequivocal hyperglycemia, results should be confirmed by repeat testing. In a patient with classic symptoms of hyperglycemia or hyperglycemic crisis, random plasma glucose results greater than or equal to 200 mg/dL meet the criteria for diagnosis of diabetes.Reference: Standards of Medical Care in Diabetes 2016, [place] [employer]. Diabetes Care. 2016.39(Suppl 1). Performed By: #### 2 4321-2 ####[facility]ORATORYCLIA [id number] [place] [address] Potassium [Moles/Vol] 3.7 mmol/L Normal 3.7-5.1 [facility] Comment on above: Order Comment: Speci men Type: BLOOD SPECIMEN Performed By: #### 2 4321-2 ####[facility]ATORYCLIA [id number] [place] [address] Sodium [Moles/Vol] 141 mmol/L Normal 136-144 [facility] Comment on above: Order Comment: Speci men Type: BLOOD SPECIMEN Performed By: #### 2 4321-2 ####[facility]ATORYCLIA [id number] [place] [address] Urea nitrogen [Mass/Vol] 7 mg/dL Normal 7-21 [facility] Comment on above: Order Comment: Speci men Type: BLOOD SPECIMEN Performed By: #### 2 4321-2 ####[facility]ATORYCLIA [id number] [place] [address] CASE MANAGEMon 04-07-2021 CASE MANAGEM Normal [facility] CBC W Auto Differential pane l (Bld)on 04-07-2021 Basophils (Bld) [#/Vol] Normal A [facility] Comment on above: Order Comment: Speci men Type: BLOOD SPECIMEN Result Comment: Too Few Cells To Do Differential. Performed By: #### 5 7021-8 ####[facility]ATORYCLIA [id number] [place] [address] Basophils/100 WBC (Bld) Normal A [facility] Comment on above: Order Comment: Speci men Type: BLOOD SPECIMEN Result Comment: Too Few Cells To Do Differential. Performed By: #### 5 7021-8 ####[facility]ORYCLIA [id number] [place] [address] Differential cell count method Nom (Bld) Auto Normal [facility] Comment on above: Order Comment: Speci men Type: BLOOD SPECIMEN Performed By: #### 5 7021-8 ####[facility]ORYCLIA [id number] [place] [address] Eosinophils (Bld) [#/Vol] Normal [facility] Comment on above: Order Comment: Speci men Type: BLOOD SPECIMEN Result Comment: Too Few Cells To Do Differential. Performed By: #### 5 7021-8 ####[facility]ORYCLIA [id number] [place] [address] Eosinophils/100 WBC (Bld) Normal [facility] Comment on above: Order Comment: Speci men Type: BLOOD SPECIMEN Result Comment: Too Few Cells To Do Differential. Performed By: #### 5 7021-8 ####[facility]ORYCLIA [id number] [place] [address] Erythrocyte distribution width (RBC) [Ratio] 15.0 % Normal 11.5-15.0 [facility] Comment on above: Order Comment: Speci men Type: BLOOD SPECIMEN Performed By: #### 5 7021-8 ####[facility]ORYCLIA [id number] [place] [address] Hematocrit (Bld) [Volume fraction] 27.6 % Low 36.0-46.0 [facility] Comment on above: Order Comment: Speci men Type: BLOOD SPECIMEN Performed By: #### 5 7021-8 ####[facility]ORYCLIA [id number] [place] [address] Hemoglobin (Bld) [Mass/Vol] 8.8 g/dL Low 11.5-15.5 [facility] Comment on above: Order Comment: Speci men Type: BLOOD SPECIMEN Performed By: #### 5 7021-8 ####[facility]ORYCLIA [id number] [place] [address] IMMATURE GRAN % Normal [facility] Comment on above: Order Comment: Speci men Type: BLOOD SPECIMEN Result Comment: Too Few Cells To Do Differential. Performed By: #### 5 7021-8 ####[facility]ORYCLIA [id number] [place] [address] IMMATURE GRAN ABS Normal [facility] Comment on above: Order Comment: Speci men Type: BLOOD SPECIMEN Result Comment: Too Few Cells To Do Differential. Performed By: #### 5 7021-8 ####[facility]ORYCLIA [id number] [place] [address] Lymphocytes (Bld) [#/Vol] Normal [facility] Comment on above: Order Comment: Speci men Type: BLOOD SPECIMEN Result Comment: Too Few Cells To Do Differential. Performed By: #### 5 7021-8 ####[facility]ORYCLIA [id number] [place] [address] Lymphocytes/100 WBC (Bld) Normal [facility] Comment on above: Order Comment: Speci men Type: BLOOD SPECIMEN Result Comment: Too Few Cells To Do Differential. Performed By: #### 5 7021-8 ####[facility]ORYCLIA [id number] [place] [address] MCH (RBC) [Entitic mass] 25.3 pg Low 26.0-34.0 [facility] Comment on above: Order Comment: Speci men Type: BLOOD SPECIMEN Performed By: #### 5 7021-8 ####[facility]ORYCLIA [id number] [place] [address] MCHC (RBC) [Mass/Vol] 31.9 g/dL Normal 30.5-36.0 [facility] Comment on above: Order Comment: Speci men Type: BLOOD SPECIMEN Performed By: #### 5 7021-8 ####[facility]ORYCLIA [id number] [place] [address] MCV (RBC) [Entitic vol] 79.3 fL Low 80.0-100.[address] [facility] Comment on above: Order Comment: Speci men Type: BLOOD SPECIMEN Performed By: #### 5 7021-8 ####[facility] LABORATORYCLIA [id number] [place] [address] Monocytes (Bld) [#/Vol] Normal A [facility] Comment on above: Order Comment: Speci men Type: BLOOD SPECIMEN Result Comment: Too Few Cells To Do Differential. Performed By: #### 5 7021-8 ####[facility] LABORATORYCLIA [id number] [place] [address] Monocytes/100 WBC (Bld) Normal A [facility] Comment on above: Order Comment: Speci men Type: BLOOD SPECIMEN Result Comment: Too Few Cells To Do Differential. Performed By: #### 5 7021-8 ####[facility]ORYCLIA [id number] [place] [address] Neutrophils (Bld) [#/Vol] Normal [facility] Comment on above: Order Comment: Speci men Type: BLOOD SPECIMEN Result Comment: Too Few Cells To Do Differential. Performed By: #### 5 7021-8 ####[facility]ORYCLIA [id number] [place] [address] Nucleated RBC (Bld) [#/Vol] 10*3/uL Normal <0.01 [facility] Comment on above: Order Comment: Speci men Type: BLOOD SPECIMEN Performed By: #### 5 7021-8 ####[facility]ORYCLIA [id number] [place] [address] Nucleated RBC/100 WBC (Bld) [Ratio] 0.0 /100 WBC Normal 0.0 [facility] Comment on above: Order Comment: Speci men Type: BLOOD SPECIMEN Performed By: #### 5 7021-8 ####[facility]ORYCLIA [id number] [place] [address] Platelet mean volume (Bld) [Entitic vol] 10.5 fL Normal 9.0-12.7 [facility] Comment on above: Order Comment: Speci men Type: BLOOD SPECIMEN Performed By: #### 5 7021-8 ####[facility] LABORATORYCLIA [id number] [place] [address] Platelets (Bld) [#/Vol] 71 10*3/uL Low 150-400 [facility] Comment on above: Order Comment: Speci men Type: BLOOD SPECIMEN Performed By: #### 5 7021-8 ####[facility] LABORATORYCLIA [id number] [place] [address] RBC (Bld) [#/Vol] 3.48 10*6/uL Low 3.90-5.20 [facility] Comment on above: Order Comment: Speci men Type: BLOOD SPECIMEN Performed By: #### 5 7021-8 ####[facility]ORYCLIA [id number] [place] [address] WBC (Bld) [#/Vol] 0.72 10*3/uL Low 3.70-11.00 [facility] Comment on above: Order Comment: Speci men Type: BLOOD SPECIMEN Performed By: #### 5 7021-8 ####[facility]ORATORYCLIA [id number] [place] [address] CONSULTon 04-07-2021 CONSULT Normal [facility] CONSULT Normal [facility] CONSULT Normal [facility] CONSULT PROGon 04-07-2021 CONSULT PROG Normal [facility] IRON + TIBCon 04-07-2021 Iron [Mass/Vol] 13 ug/dL Low 41-186 [facility] Comment on above: Order Comment: Speci men Type: BLOOD SPECIMEN Performed By: #### K 1, 71942-0, IRON ####[facility] LABORATORYCLIA [id number] [place] [address] Iron binding capacity [Mass/Vol] 157 ug/dL Low 232-386 [facility] Comment on above: Order Comment: Speci men Type: BLOOD SPECIMEN Performed By: #### K 1, , IRON ####[facility]ORATORYCLIA [id number] [place] [address] Iron saturation [Mass fraction] 8 % Low 15-57 [facility] Comment on above: Order Comment: Speci men Type: BLOOD SPECIMEN Performed By: #### K 1, , IRON ####[facility]ORATORYCLIA [id number] [place] [address] Magnesium SerPl-mCncon 04-07 Magnesium [Mass/Vol] 1.9 mg/dL Normal 1.7-2.3 [facility] Comment on above: Order Comment: Speci men Type: BLOOD SPECIMEN Performed By: #### K 1, , IRON ####[facility]ATORYCLIA [id number] [place] [address] NURSING PROGon 04-07-2021 NURSING PROG Normal [facility] NURSING PROG Normal [facility] NURSING PROG Normal [facility] NURSING PROG Normal [facility] POTASSIUM BLDon 04-07-2021 Potassium [Moles/Vol] 3.3 mmol/L Low 3.7-5.1 [facility] Comment on above: Order Comment: Speci men Type: BLOOD SPECIMEN Performed By: #### K 1, , IRON ####[facility]ORATORYCLIA [id number] [place] [address] STAPH AUREUS PCRon S. aureus and MRSA panel DANIEL+probe (Nose) Normal Negative [facility] Comment on above: Order Comment: Speci men Type: SWAB OF INTERNAL NOSE Result Comment: Nega tive for Staphylococcus aureus by PCR.Negative for MRSA by PCR Performed By: #### S APCR ####[facility] LABORATORYCLIA [id number] [place] [address] ALLIED HEALTHon 04-06-2021 ALLIED HEALTH Normal [facility] Bacteria Bld Culton 04-06-20 21 Bacteria identified Cx Nom (Bld) CULTURE, BLOOD: No growth 5 days Normal [facility] Comment on above: Performed By: #### 6 00-7 ####[facility]ORATORYCLIA [id number] [place] [address] Bacteria Ur Culton Bacteria identified Cx Nom (U) ORGANISM ID: 1 5,000 - <10,000 CFU/ml Gram positive cocci Insignificant colony count. No further workup. Normal [facility] Comment on above: Performed By: #### 6 30-4 ####[facility]ATORYCLIA [id number] [place] [address] CASE MGT INIT ASSESon 2020 CASE MGT INIT ASSES Normal [facility] CBC W Auto Differential pane l (Bld)on 04-06-2021 Basophils (Bld) [#/Vol] Normal [facility] Comment on above: Order Comment: Speci men Type: BLOOD SPECIMEN Result Comment: Too Few Cells To Do Differential. Performed By: #### 5 7021-8 ####[facility]ORATORYCLIA [id number] [place] [address] Basophils/100 WBC (Bld) Normal [facility] Comment on above: Order Comment: Speci men Type: BLOOD SPECIMEN Result Comment: Too Few Cells To Do Differential. Performed By: #### 5 7021-8 ####[facility]ATORYCLIA [id number] [place] [address] Differential cell count method Nom (Bld) Auto Normal [facility] Comment on above: Order Comment: Speci men Type: BLOOD SPECIMEN Performed By: #### 5 7021-8 ####[facility]ATORYCLIA [id number] [place] [address] Eosinophils (Bld) [#/Vol] Normal [facility] Comment on above: Order Comment: Speci men Type: BLOOD SPECIMEN Result Comment: Too Few Cells To Do Differential. Performed By: #### 5 7021-8 ####[facility]ORATORYCLIA [id number] [place] [address] Eosinophils/100 WBC (Bld) Normal [facility] Comment on above: Order Comment: Speci men Type: BLOOD SPECIMEN Result Comment: Too Few Cells To Do Differential. Performed By: #### 5 7021-8 ####[facility]ORATORYCLIA [id number] [place] [address] Erythrocyte distribution width (RBC) [Ratio] 14.8 % Normal 11.5-15.0 [facility] Comment on above: Order Comment: Speci men Type: BLOOD SPECIMEN Performed By: #### 5 7021-8 ####[facility]ORATORYCLIA [id number] [place] [address] Hematocrit (Bld) [Volume fraction] 30.9 % Low 36.0-46.0 [facility] Comment on above: Order Comment: Speci men Type: BLOOD SPECIMEN Performed By: #### 5 7021-8 ####[facility]ATORYCLIA [id number] [place] [address] Hemoglobin (Bld) [Mass/Vol] 9.6 g/dL Low 11.5-15.5 [facility] Comment on above: Order Comment: Speci men Type: BLOOD SPECIMEN Performed By: #### 5 7021-8 ####[facility]ORATORYCLIA [id number] [place] [address] IMMATURE GRAN % Normal [facility] Comment on above: Order Comment: Speci men Type: BLOOD SPECIMEN Result Comment: Too Few Cells To Do Differential. Performed By: #### 5 7021-8 ####[facility]ORATORYCLIA [id number] [place] [address] IMMATURE GRAN ABS Normal [facility] Comment on above: Order Comment: Speci men Type: BLOOD SPECIMEN Result Comment: Too Few Cells To Do Differential. Performed By: #### 5 7021-8 ####[facility]ORATORYCLIA [id number] [place] [address] Lymphocytes (Bld) [#/Vol] Normal [facility] Comment on above: Order Comment: Speci men Type: BLOOD SPECIMEN Result Comment: Too Few Cells To Do Differential. Performed By: #### 5 7021-8 ####[facility]ORATORYCLIA [id number] [place] [address] Lymphocytes/100 WBC (Bld) Normal [facility] Comment on above: Order Comment: Speci men Type: BLOOD SPECIMEN Result Comment: Too Few Cells To Do Differential. Performed By: #### 5 7021-8 ####[facility]ORATORYCLIA [id number] [place] [address] MCH (RBC) [Entitic mass] 24.9 pg Low 26.0-34.0 [facility] Comment on above: Order Comment: Speci men Type: BLOOD SPECIMEN Performed By: #### 5 7021-8 ####[facility]ORATORYCLIA [id number] [place] [address] MCHC (RBC) [Mass/Vol] 31.1 g/dL Normal 30.5-36.0 [facility] Comment on above: Order Comment: Speci men Type: BLOOD SPECIMEN Performed By: #### 5 7021-8 ####[facility]ATORYCLIA [id number] [place] [address] MCV (RBC) [Entitic vol] 80.3 fL Normal 80.0-100.0 [facility] Comment on above: Order Comment: Speci men Type: BLOOD SPECIMEN Performed By: #### 5 7021-8 ####[facility]ATORYCLIA [id number] [place] [address] Monocytes (Bld) [#/Vol] Normal [facility] Comment on above: Order Comment: Speci men Type: BLOOD SPECIMEN Result Comment: Too Few Cells To Do Differential. Performed By: #### 5 7021-8 ####[facility]ORATORYCLIA [id number] [place] [address] Monocytes/100 WBC (Bld) Normal [facility] Comment on above: Order Comment: Speci men Type: BLOOD SPECIMEN Result Comment: Too Few Cells To Do Differential. Performed By: #### 5 7021-8 ####[facility]ORATORYCLIA [id number] [place] [address] Neutrophils (Bld) [#/Vol] Normal [facility] Comment on above: Order Comment: Speci men Type: BLOOD SPECIMEN Result Comment: Too Few Cells To Do Differential. Performed By: #### 5 7021-8 ####[facility]ORATORYCLIA [id number] [place] [address] Nucleated RBC (Bld) [#/Vol] 10*3/uL Normal <0.01 [facility] Comment on above: Order Comment: Speci men Type: BLOOD SPECIMEN Performed By: #### 5 7021-8 ####[facility]ATORYCLIA [id number] [place] [address] Nucleated RBC/100 WBC (Bld) [Ratio] 0.0 /100 WBC Normal 0.0 [facility] Comment on above: Order Comment: Speci men Type: BLOOD SPECIMEN Performed By: #### 5 7021-8 ####[facility]ATORYCLIA [id number] [place] [address] Platelet mean volume (Bld) [Entitic vol] 10.8 fL Normal 9.0-12.7 [facility] Comment on above: Order Comment: Speci men Type: BLOOD SPECIMEN Performed By: #### 5 7021-8 ####[facility]ATORYCLIA [id number] [place] [address] Platelets (Bld) [#/Vol] 78 10*3/uL Low 150-400 [facility] Comment on above: Order Comment: Speci men Type: BLOOD SPECIMEN Performed By: #### 5 7021-8 ####[facility]ATORYCLIA [id number] [place] [address] RBC (Bld) [#/Vol] 3.85 10*6/uL Low 3.90-5.20 [facility] Comment on above: Order Comment: Speci men Type: BLOOD SPECIMEN Performed By: #### 5 7021-8 ####[facility]ATORYCLIA [id number] [place] [address] WBC (Bld) [#/Vol] 0.42 10*3/uL Low 3.70-11.00 [facility] Comment on above: Order Comment: Speci men Type: BLOOD SPECIMEN Result Comment: Too few cells to do differential Performed By: #### 5 7021-8 ####[facility]ORATORYCLIA [id number] [place] [address] CRP SerPl-mCncon 04-06-2021 CRP [Mass/Vol] 6.8 mg/dL High <0.9 [facility] Comment on above: Order Comment: Speci men Type: BLOOD SPECIMEN Performed By: #### 2 43212-26, 1988-02 ####[facility]ATORYCLIA [id number] [place] [address] CT ABD/PEL W IVCONon 021 CT ABD/PEL W IVCON Normal [facility] Comprehensive metabolic 2000 panelon 04-06-2021 Albumin [Mass/Vol] 2.8 g/dL Low 3.9-4.9 [facility] Comment on above: Order Comment: Speci men Type: BLOOD SPECIMEN Performed By: #### 2 4323-05, 1988-02 ####[facility]ORATORYCLIA [id number] [place] [address] ALP [Catalytic activity/Vol] 77 U/L Normal 34-123 [facility] Comment on above: Order Comment: Speci men Type: BLOOD SPECIMEN Performed By: #### 2 4323-05, 1988-02 ####[facility]ORATORYCLIA [id number] [place] [address] ALT With P-5'-P [Catalytic activity/Vol] 17 U/L Normal 7-38 [facility] Comment on above: Order Comment: Speci men Type: BLOOD SPECIMEN Performed By: #### 2 4323-05, 1988-02 ####[facility]ORATORYCLIA [id number] [place] [address] Anion gap [Moles/Vol] 9 mmol/L Normal 9-18 [facility] Comment on above: Order Comment: Speci men Type: BLOOD SPECIMEN Performed By: #### 2 4323-05, 1988-02 ####[facility]ATORYCLIA [id number] [place] [address] AST With P-5'-P [Catalytic activity/Vol] 14 U/L Normal 13-35 [facility] Comment on above: Order Comment: Speci men Type: BLOOD SPECIMEN Performed By: #### 2 4323-05, 1988-02 ####[facility]ORYCLIA [id number] [place] [address] Bilirubin [Mass/Vol] 0.5 mg/dL Normal 0.2-1.3 [facility] Comment on above: Order Comment: Speci men Type: BLOOD SPECIMEN Performed By: #### 2 4323-05, 1988-02 ####[facility]ATORYCLIA [id number] [place] [address] Calcium [Mass/Vol] 8.2 mg/dL Low 8.5-10.2 [facility] Comment on above: Order Comment: Speci men Type: BLOOD SPECIMEN Performed By: #### 2 4323-05, 1988-02 ####[facility]ATORYCLIA [id number] [place] [address] Chloride [Moles/Vol] 104 mmol/L Normal 97-105 [facility] Comment on above: Order Comment: Speci men Type: BLOOD SPECIMEN Performed By: #### 2 4323-05, 1988-02 ####[facility]ATORYCLIA [id number] [place] [address] CO2 [Moles/Vol] 22 mmol/L Normal 22-30 [facility] Comment on above: Order Comment: Speci men Type: BLOOD SPECIMEN Performed By: #### 2 4323-05, 1988-02 ####[facility]ATORYCLIA [id number] [place] [address] Creatinine [Mass/Vol] 0.50 mg/dL Low 0.58-0.96 [facility] Comment on above: Order Comment: Speci men Type: BLOOD SPECIMEN Performed By: #### 2 4323-05, 1988-02 ####[facility]ATORYCLIA [id number] [place] [address] GFR/1.73 sq M.predicted MDRD (S/P/Bld) [Vol rate/Area] mL/min/{1.73_m2} Normal [facility] Comment on above: Order Comment: Speci men Type: BLOOD SPECIMEN Result Comment: >60e GFR (Estimated GFR) Units of measure: mL/min/1.73 meters squaredeGFR is derived from the reexpressed MDRD Study equation using the following parameters: serum creatinine, age, gender and race. The creatinine assay has been calibrated to be traceable to IDMS. An eGFR <60 mL/min/1.73m2 for >3 months is consistent with chronic kidney disease. Refer to KDOQI guidelines for clinical interpretation. In patients with unstable renal function, e.g. those with acute kidney injury, the eGFR may not accurately reflect actual GFR. Performed By: #### 2 1988-02 ####[facility] [id number] [place] [address] Glucose [Mass/Vol] 116 mg/dL High 74-99 [facility] Comment on above: Order Comment: Speci men Type: BLOOD SPECIMEN Result Comment: The [place] [employer] (ADA) provides guidance for cutoff values for fasting glucose and random glucose. The ADA defines fasting as no caloric intake for at least 8 hours. Fasting plasma glucose results between 100 to 125 mg/dL indicate increased risk for diabetes (prediabetes).Fasting plasma glucose results greater than or equal to 126 mg/dL meet the criteria for diagnosis of diabetes. In the absence of unequivocal hyperglycemia, results should be confirmed by repeat testing. In a patient with classic symptoms of hyperglycemia or hyperglycemic crisis, random plasma glucose results greater than or equal to 200 mg/dL meet the criteria for diagnosis of diabetes.Reference: Standards of Medical Care in Diabetes 2016, [place] [employer]. Diabetes Care. 2016.39(Suppl 1). Performed By: #### 2 4323-05, 1988-02 ####[facility]ORATORYCLIA [id number] [place] [address] Potassium [Moles/Vol] 3.9 mmol/L Normal 3.7-5.1 [facility] Comment on above: Order Comment: Speci [facility] Type: BLOOD SPECIMEN Performed By: #### 2 4323-05, 1988-02 ####[facility]ATORYCLIA [id number] [place] [address] Protein [Mass/Vol] 5.1 g/dL Low 6.3-8.0 [facility] Comment on above: Order Comment: Speci men Type: BLOOD SPECIMEN Performed By: #### 2 43238, 1988-02 ####[facility]ATORYCLIA [id number] [place] [address] Sodium [Moles/Vol] 135 mmol/L Low 136-144 [facility] Comment on above: Order Comment: Speci men Type: BLOOD SPECIMEN Performed By: #### 2 43238, 1988-02 ####[facility]ATORYCLIA [id number] [place] [address] Urea nitrogen [Mass/Vol] 14 mg/dL Normal 7-21 [facility] Comment on above: Order Comment: Speci men Type: BLOOD SPECIMEN Performed By: #### 2 43238, 1988-02 ####[facility]ATORYCLIA [id number] [place] [address] ED NOTEon 04-06-2021 ED NOTE HNO ID: [id number] Author: Antony Fields RN Service: Emergency Medicine Author Type: Registered Nurse Type: ED Notes Filed: 04/06/2021 9:34 PM Note Text: RC given BNR [facility] ED NOTE HNO ID: [id number] Author: Sandra Ghotra RN Service: Emergency Medicine Author Type: Registered Nurse Type: ED Notes Filed: 04/06/2021 6:17 PM Note Text: [facility] approved [facility] Darius Wliloughby by [employer] Юлия Godfrey. Normal [facility] ED NOTE HNO ID: [id number] Author: Sandra Ghotra RN Service: Emergency Medicine Author Type: Registered Nurse Type: ED Notes Filed: 04/06/2021 2:03 PM Note Text: Ct informed pt ready for testing at this time. Normal [facility] ED NOTE Normal [facility] ED NOTE Normal [facility] ED PROV NOTEon 04-06-2021 ED PROV NOTE Normal [facility] ED PROV NOTE Normal [facility] ESR Westergren method (Bld) [Velocity]on 04-06-2021 ESR (Bld) [Velocity] 28 mm/h High 0-20 [facility] Comment on above: Order Comment: Speci men Type: BLOOD SPECIMEN Performed By: #### 4 537-7 ####[facility]ATORYCLIA [id number] [place] [address] HISTORY PHYSICALon HISTORY PHYSICAL Normal [facility] PT panel Coag (PPP)on 2020 INR Coag (PPP) [Relative time] 1.2 {INR} Normal 0.9-1.3 [facility] Comment on above: Order Comment: Speci men Type: BLOOD SPECIMEN Result Comment: [place] min K Antagonist (VKA) Therapeutic Range: INR 2 to 3 (Target INR of 2.5)Note: For patients treated with VKA drugs, such as warfarin, the [place] [employer] 2012 Guideline recommends a therapeutic INR range of 2 to 3 (target INR of 2.5). This recommendation includes high-risk patients with antiphospholipid syndrome with previous arterial or venous thromboembolism, current-generation mechanical or bioprosthetic aortic heart valve replacement.Note: Patients with mechanical aortic valve replacement and additional risk factors for thromboembolic events (atrial fibrillation, previous thromboembolism, LV dysfunction, hypercoagulable conditions) or an older generation mechanical AVR (i.e., ball in-Cage) or any mechanical MVR should have a INR therapeutic range of 2.5 to 3.5 (target INR of 3).Phi GH, et al. Chest 2012, 141:7S-47SNishimura RA, et al. [facility] 2017, 70: 252-289 Performed By: #### 1 4979-9, 98539-8 ####[facility]ORATORYCLIA [id number] [place] [address] PT Coag (PPP) [Time] 12.7 s Normal 9.7-13.0 [facility] Comment on above: Order Comment: Speci men Type: BLOOD SPECIMEN Performed By: #### 1 4979-9, 37390-0 ####[facility]ORYCLIA [id number] [place] [address] SARS-CoV-2 RNA Resp Ql DANIEL+p robeon 04-06-2021 SARS-CoV-2 (COVID-19) RNA DANIEL+probe Ql (Resp) COVID 19 RESULT: SARS-CoV-2 (Agent of COVID-19) Not Detected by PCR. This test has been authorized by FDA under an Emergency Use Authorization (EUA) Normal [facility] Comment on above: Performed By: #### 9 4500-6 ####[facility]ATORYCLIA [id number] [place] [address] Urinalysis complete panel (U )on 04-06-2021 Bacteria LM.HPF (Urine sed) [#/Area] None Seen Normal None Seen [facility] Comment on above: Order Comment: Speci men Type: URINE SPECIMEN Performed By: #### 2 4356-8 ####[facility]ORYCLIA [id number] [place] [address] Bilirubin Ql (U) Negative Normal Negative [facility] Comment on above: Order Comment: Speci men Type: URINE SPECIMEN Performed By: #### 2 4356-8 ####[facility]ORYCLIA [id number] [place] [address] Clarity (Unsp spec) Clear Normal Clear [facility] Comment on above: Order Comment: Speci men Type: URINE SPECIMEN Performed By: #### 2 4356-8 ####[facility]ORYCLIA [id number] [place] [address] Color (U) Yellow Normal Yellow [facility] Comment on above: Order Comment: Speci men Type: URINE SPECIMEN Performed By: #### 2 4356-8 ####[facility]ORYCLIA [id number] [place] [address] Epithelial cells LM.HPF (Urine sed) [#/Area] 3.0 /[HPF] Normal [facility] Comment on above: Order Comment: Speci men Type: URINE SPECIMEN Performed By: #### 2 4356-8 ####[facility]ORYCLIA [id number] [place] [address] Glucose Test strip (U) [Mass/Vol] Negative Normal Negative [facility] Comment on above: Order Comment: Speci men Type: URINE SPECIMEN Performed By: #### 2 4356-8 ####[facility]ORYCLIA [id number] [place] [address] Hemoglobin Ql (U) Negative Normal Negative [facility] Comment on above: Order Comment: Speci men Type: URINE SPECIMEN Performed By: #### 2 4356-8 ####[facility]ATORYCLIA [id number] [place] [address] Hyaline casts (Urine sed) [#/Area] 0 /[LPF] Normal 0 /LPF [facility] Comment on above: Order Comment: Speci men Type: URINE SPECIMEN Performed By: #### 2 4356-8 ####[facility]ORYCLIA [id number] [place] [address] Ketones Ql (U) Negative Normal Negative [facility] Comment on above: Order Comment: Speci men Type: URINE SPECIMEN Performed By: #### 2 4356-8 ####[facility]ORYCLIA [id number] [place] [address] Leukocyte esterase Test strip Ql (U) Trace Abnormal Negative [facility] Comment on above: Order Comment: Speci men Type: URINE SPECIMEN Performed By: #### 2 4356-8 ####[facility]ORYCLIA [id number] [place] [address] Nitrite Ql (U) Negative Normal Negative [facility] Comment on above: Order Comment: Speci men Type: URINE SPECIMEN Performed By: #### 2 4356-8 ####[facility]ORYCLIA [id number] [place] [address] pH (U) 6.5 [pH] Normal 5.0-8.0 [facility] Comment on above: Order Comment: Speci men Type: URINE SPECIMEN Performed By: #### 2 4356-8 ####[facility]ORYCLIA [id number] [place] [address] Protein (U) [Mass/Vol] Negative Normal Negative [facility] Comment on above: Order Comment: Speci men Type: URINE SPECIMEN Performed By: #### 2 4356-8 ####[facility]ORYCLIA [id number] [place] [address] RBC LM.HPF (Urine sed) [#/Area] 0-3 /HPF Normal 0-3 /HPF [facility] Comment on above: Order Comment: Speci men Type: URINE SPECIMEN Performed By: #### 2 4356-8 ####[facility]ORYCLIA [id number] [place] [address] Specific gravity (U) [Rel density] 1.029 Normal 1.005-1.030 [facility] Comment on above: Order Comment: Speci men Type: URINE SPECIMEN Performed By: #### 2 4356-8 ####[facility]ORYCLIA [id number] [place] [id number] Urobilinogen Ql (U) 0.2 EU/dL Normal 0.2-1.0 EU/dL [facility] Comment on above: Order Comment: Speci men Type: URINE SPECIMEN Performed By: #### 2 4356-8 ####[facility]ORYCLIA [id number] [place] [id number] WBC LM.HPF (Urine sed) [#/Area] 6-10 /HPF Abnormal 0-5 /HPF [facility] Comment on above: Order Comment: Speci men Type: URINE SPECIMEN Performed By: #### 2 4356-8 ####[facility]ORYCLIA [id number] [place] [id number] XR CHEST 1V FRONTAL PORTon 0 04-06-2021 XR CHEST 1V FRONTAL PORT Normal [facility] aPTT PPPon 04-06-2021 aPTT Coag (PPP) [Time] 26.0 s Normal 23.0-32.4 [facility] Comment on above: Order Comment: Speci men Type: BLOOD SPECIMEN Performed By: #### 1 4979-9, 26163-5 ####[facility]ORYCLIA [id number] [address] 04-12-2020 Albumin [Mass/Vol] 3.9 g/dL Normal 3.6-5.1 [facility] Comment on above: Performed By: #### 7 600, [address]9360 #### [facility]-[address], [address] [place] [address] Bulb Planter: Martín More MD Albumin/Globulin [Mass ratio] 1.6 (calc) Normal 1.0-2.5 [facility] Comment on above: Performed By: #### 7 600, 44204 #### [facility]-[address], [address] [place] [address] Bulb Planter: Martín More MD ALP [Catalytic activity/Vol] 92 U/L Normal 37-153 [facility] Comment on above: Performed By: #### 7 600, 86120 #### [facility]-[place] [address] Bulb Planter: Martín More MD ALT [Catalytic activity/Vol] 20 U/L Normal 6-29 [facility] Comment on above: Performed By: #### 7 600, [address]7880 #### [facility] [facility] [address] Bulb Planter: Martín More MD AST [Catalytic activity/Vol] 27 U/L Normal 10-35 [facility] Comment on above: Performed By: #### 7 600, [id number] #### [facility] [address] Bulb Planter: Martín More MD Bilirubin [Mass/Vol] 0.6 mg/dL Normal 0.2-1.2 [facility] Comment on above: Performed By: #### 7 600, [id number] #### [facility] [address] Bulb Planter: Martín More MD Calcium [Mass/Vol] 9.3 mg/dL Normal 8.6-10.4 [facility] Comment on above: Performed By: #### 7 600, [id number] #### [facility], [address] [place] [address] Bulb Planter: Martín More MD Chloride [Moles/Vol] 106 mmol/L Normal 98-110 [facility] Comment on above: Performed By: #### 7 600, [id number] #### [facility] [address] [place] , [address] [place] [address] Bulb Planter: Martín More MD CO2 [Moles/Vol] 27 mmol/L Normal 20-32 [facility] Comment on above: Performed By: #### 7 600, [id number] #### [facility], [address] [place] [address] Bulb Planter: Martín More MD Creatinine [Mass/Vol] 0.79 mg/dL Normal 0.60-0.[address] [facility] [address] [facility] Comment on above: Result Comment: For patients >49 years of age, the reference limit for Creatinine is approximately 13% higher for people identified as -Cambodian. Performed By: #### 7 600, [id number] #### [facility], [address] [place] [address] Bulb Planter: Martín More MD eGFR NON-AFR. TURKISH 73 mL/min/1.73m2 Normal > OR = 60 [facility] Comment on above: Performed By: #### 7 600, [id number] #### [facility], [address] [place] [address] Bulb Planter: Martín More MD GFR/1.73 sq M predicted among blacks MDRD (S/P/Bld) [Vol rate/Area] 85 mL/min/{1.73_m2} Normal > OR = 60 [facility] Comment on above: Performed By: #### 7 600, [id number] #### [facility], [address] [place] [address] Bulb Planter: Martín More MD Globulin (S) [Mass/Vol] 2.5 g/dL (calc) Normal 1.9-3.7 [facility] Comment on above: Performed By: #### 7 600, [id number] #### [facility], [address] [place] [address] Bulb Planter: Martín More MD Glucose [Mass/Vol] 100 mg/dL High 65-99 [facility] Comment on above: Result Comment: Fasting reference interval For someone without known diabetes, a glucose value between 100 and 125 mg/dL is consistent with prediabetes and should be confirmed with a follow-up test. Performed By: #### 7 600, [id number] #### [facility], [address] [place] [address] Bulb Planter: Martín More MD Potassium [Moles/Vol] 4.1 mmol/L Normal 3.5-5.[address] [facility] [address] [facility] Comment on above: Performed By: #### 7 600, [id number] #### [facility], [address] [place] [address] Bulb Planter: Martín More MD Protein [Mass/Vol] 6.4 g/dL Normal 6.1-8.1 [facility] Comment on above: Performed By: #### 7 600, [id number] #### [facility], [address] [place] [address] Bulb Planter: Martín More MD Sodium [Moles/Vol] 140 mmol/L Normal 135-146 [facility] Comment on above: Performed By: #### 7 600, [id number] #### [facility] [address] Bulb Planter: Martín More MD Urea nitrogen [Mass/Vol] 13 mg/dL Normal 7-25 [facility] Comment on above: Performed By: #### 7 600, [id number] #### [facility] [address] Bulb Planter: Martín More MD Urea nitrogen/Creatinine [Mass ratio] NOT APPLICABLE Normal 6-22 [facility] Comment on above: Performed By: #### 7 600, [id number] #### [facility], [address] [place] [address] Bulb Planter: Martín More MD LIPID PANEL, [facility] 03-22 Cholesterol [Mass/Vol] 126 mg/dL Normal <200 [facility] Comment on above: Performed By: #### 7 600, [id number] #### [facility], [address] [place] [address] Bulb Planter: Martín More MD Cholesterol in HDL [Mass/Vol] 51 mg/dL Normal > OR = 50 [facility] Comment on above: Performed By: #### 7 600, [id number] #### [facility], [address] [place] [address] Bulb Planter: Martín More MD Cholesterol in LDL [Mass/Vol] 62 mg/dL (calc) Normal [facility] Comment on above: Result Comment: Refe rence range: <100 Desirable range <100 mg/dL for primary prevention; <70 mg/dL for patients with CHD or diabetic patients with > or = 2 CHD risk factors. LDL-C is now calculated using the Irina calculation, which is a validated novel method providing better accuracy than the Friedewald equation in the estimation of LDL-C. Chi NEUMANN et al. DAVIDA. 2013;310(19): 9680-6554 (http://education.[employer]/faq/SRO782) Performed By: #### 7 600, [id number] #### [facility] [address] Bulb Planter: Martín More MD Cholesterol.total/Choles terol in HDL [Mass ratio] 2.5 (calc) Normal <5.0 [facility] Comment on above: Performed By: #### 7 600, [id number] #### [facility], [address] [place] [address] Bulb Planter: Martín More MD NON HDL CHOLESTEROL 75 mg/dL (calc) Normal <130 [facility] Comment on above: Result Comment: For patients with diabetes plus 1 major ASCVD risk factor, treating to a non-HDL-C goal of <100 mg/dL (LDL-C of <70 mg/dL) is considered a therapeutic option. Performed By: #### 7 600, [id number] #### [facility], [address] [place] [address] Bulb Planter: Martín More MD Triglyceride [Mass/Vol] 58 mg/dL Normal <150 Q uest [facility] Comment on above: Performed By: #### 7 472, [id number] #### [facility], [address] [place] [id number] Bulb Planter: Martín More MD Culture, urine Bacteria identified Cx Nom (U) Enterococcus faecalis [facility] Work Phone: Influenza virus A and B and SARS-CoV-2 (COVID-19) Ag panel - Upper respiratory specim SARS-CoV-2 (COVID-19) RNA DANIEL+probe Ql (Resp) [facility] Work Phone: Vital Signs Date Time Vital Sign Value Performing Clinician Faci lity 05-18-2025 11:07-0400 Body temperature 97.7 [degF] Dr. Jennie Mcintyre MD Work Phone: [facility] 05-18-2025 11:07-0400 Diastolic blood pressure 72 mm[Hg] Dr. Jennie Mcintyre MD Work Phone: [facility] 05-18-2025 11:07-0400 Heart rate 53 /min Dr. Jennie Mcintyre MD Work Phone: [facility] 05-18-2025 11:07-0400 Respiratory rate 16 /min Dr. Jennie Mcintyre MD Work Phone: [facility] 05-18-2025 11:07-0400 Systolic blood pressure 148 mm[Hg] Dr. Jennie Mcintyre MD Work Phone: [facility] 04-14-2025 13:25-0400 Body mass index (BMI) [Ratio] 25 kg/m2 Dr. Jennie Mcintyre MD Work Phone: [facility] 04-14-2025 13:25-0400 Body temperature 98.4 [degF] Dr. Jennie Mcintyre MD Work Phone: [facility] 04-14-2025 13:25-0400 Diastolic blood pressure 69 mm[Hg] Dr. Jennie Mcintyre MD Work Phone: [facility] 04-14-2025 13:25-0400 Heart rate 56 /min Dr. Jennie Mcintyre MD Work Phone: [facility] 04-14-2025 13:25-0400 Respiratory rate 16 /min Dr. Jennie Mcintyre MD Work Phone: [facility] 04-14-2025 13:25-0400 Systolic blood pressure 117 mm[Hg] Dr. Jennie Mcintyre MD Work Phone: [facility] 03-21-2025 00:29-0400 Body weight 68.[address] Jennie Mcintyre MD Work Phone: [facility] 03-17-2025 13:48-0400 Body mass index (BMI) [Ratio] 25 kg/m2 Dr. Jennie Mcintyre MD Work Phone: [facility] 03-17-2025 13:48-0400 Body temperature 97.4 [degF] Dr. Jennie Mcintyre MD Work Phone: [facility] 03-17-2025 13:48-0400 Diastolic blood pressure 71 mm[Hg] Dr. Jennie Mcintyre MD Work Phone: [facility] 03-17-2025 13:48-0400 Heart rate 62 /min Dr. Jennie Mcintyre MD Work Phone: [facility] 03-17-2025 13:48-0400 Respiratory rate 18 /min Dr. Jennie Mcintyre MD Work Phone: [facility] 03-17-2025 13:48-0400 Systolic blood pressure 127 mm[Hg] Dr. Jennie Mcintyre MD Work Phone: [facility] 02-18-2025 00:11-0400 Body weight 68.[address] Jennie Mcintyre MD Work Phone: [facility] 02-10-2025 13:14-0400 Body mass index (BMI) [Ratio] 25 kg/m2 Dr. Jennie Mcintyre MD Work Phone: [facility] 02-10-2025 13:14-0400 Body temperature 97.7 [degF] Dr. Jennie Mcintyre MD Work Phone: [facility] 02-10-2025 13:14-0400 Diastolic blood pressure 60 mm[Hg] Dr. Jennie Mcintyre MD Work Phone: 7(096)[phone] [place] [address] 02-10-2025 13:14-0400 Heart rate 63 /min Dr. Jennie Mcintyre MD Work Phone: 4(882)293-081692 [place] [address] 02-10-2025 13:14-0400 Respiratory rate 18 /min Dr. Jennie Mcintyre MD Work Phone: [facility] 02-10-2025 13:14-0400 Systolic blood pressure 131 mm[Hg] Dr. Jennie Mcintyre MD Work Phone: [facility] 01-19-2025 00:26-0400 Body weight 68.[address] Jennie Mcintyre MD Work Phone: [facility] 12-30-2024 13:11-0400 Body mass index (BMI) [Ratio] 25 kg/m2 Dr. Jennie Mcintyre MD Work Phone: [facility] 12-30-2024 13:11-0400 Body temperature 97.7 [degF] Dr. Jennie Mcintyre MD Work Phone: [facility] 12-30-2024 13:11-0400 Diastolic blood pressure 75 mm[Hg] Dr. Jennie Mcintyre MD Work Phone: [facility] 12-30-2024 13:11-0400 Heart rate 64 /min Dr. Jennie Mcintyre MD Work Phone: [facility] 12-30-2024 13:11-0400 Respiratory rate 16 /min Dr. Jennie Mcintyre MD Work Phone: [facility] 12-30-2024 13:11-0400 Systolic blood pressure 156 mm[Hg] Dr. Jennie Mcintyre MD Work Phone: [facility] 12-23-2024 11:02-0500 Body temperature 97.3 [degF] Dr. Jennie Mcintyre MD Work Phone: [facility] 12-23-2024 11:02-0500 Diastolic blood pressure 59 mm[Hg] Dr. Jennie Mcintyre MD Work Phone: [facility] 12-23-2024 11:02-0500 Heart rate 65 /min Dr. Jennie Mcintyre MD Work Phone: [facility] 12-23-2024 11:02-0500 Respiratory rate 18 /min Dr. Jennie Mcintyre MD Work Phone: [facility] 12-23-2024 11:02-0500 SaO2% (BldA) [Mass fraction] 96 % Dr. Jennie Mcintyre MD Work Phone: [facility] 12-23-2024 11:02-0500 Systolic blood pressure 132 mm[Hg] Dr. Jennie Mcintyre MD Work Phone: [facility] 12-23-2024 07:58-0500 Body height 165.[address] Jennie Mcintyre MD Work Phone: [facility] 12-23-2024 07:58-0500 Body mass index (BMI) [Ratio] 30.7 kg/m2 Dr. Jennie Mcintyre MD Work Phone: [facility] 12-23-2024 07:58-0500 Body weight 83.[address] Jennie Mcintyre MD Work Phone: [facility] 12-19-2024 01:57-0500 Body weight 68.[address] Jennie Mcintyre MD Work Phone: [facility] 12-16-2024 13:09-0500 Body mass index (BMI) [Ratio] 25 kg/m2 Dr. Jennie Mcintyre MD Work Phone: [facility] 12-16-2024 13:09-0500 Body temperature 97.2 [degF] Dr. Jennie Mcintyre MD Work Phone: [facility] 12-16-2024 13:09-0500 Diastolic blood pressure 68 mm[Hg] Dr. Jennie Mcintyre MD Work Phone: [facility] 12-16-2024 13:09-0500 Heart rate 61 /min Dr. Jennie Mcintyre MD Work Phone: [facility] 12-16-2024 13:09-0500 Respiratory rate 16 /min Dr. Jennie Mcintyre MD Work Phone: [facility] 12-16-2024 13:09-0500 Systolic blood pressure 158 mm[Hg] Dr. Jennie Mcintyre MD Work Phone: [facility] 11-21-2024 01:19-0500 Body weight 68.[address] Jennie Mcintyre MD Work Phone: [facility] 11-18-2024 13:00-0500 Body mass index (BMI) [Ratio] 25 kg/m2 Dr. Jennie Mcintyre MD Work Phone: [facility] 11-18-2024 13:00-0500 Body temperature 97.3 [degF] Dr. Jennie Mcintyre MD Work Phone: [facility] 11-18-2024 13:00-0500 Diastolic blood pressure 53 mm[Hg] Dr. Jennie Mcintyre MD Work Phone: [facility] 11-18-2024 13:00-0500 Heart rate 64 /min Dr. Jennie Mcintyre MD Work Phone: [facility] 11-18-2024 13:00-0500 Respiratory rate 16 /min Dr. Jennie Mcintyre MD Work Phone: [facility] 11-18-2024 13:00-0500 Systolic blood pressure 114 mm[Hg] Dr. Jennie Mcintyre MD Work Phone: [facility] 11-04-2024 12:47-0500 Body weight 68.[address] Jennie Mcintyre MD Work Phone: [facility] 12-02-2023 10:38-0500 Body mass index (BMI) [Ratio] 25.9 kg/m2 RECORDS AND INFORMATION MANAGER-C Barbra Isaias RECORDS AND INFORMATION MANAGER Work Phone: [facility] 12-02-2023 10:38-0500 Body temperature 96.6 [degF] RECORDS AND INFORMATION MANAGER-C Barbra Isaias RECORDS AND INFORMATION MANAGER Work Phone: [facility] 12-02-2023 10:38-0500 Diastolic blood pressure 52 mm[Hg] RECORDS AND INFORMATION MANAGER-C Barbra Isaias RECORDS AND INFORMATION MANAGER Work Phone: [facility] 12-02-2023 10:38-0500 Heart rate 59 /min RECORDS AND INFORMATION MANAGER-C Barbra Isaias RECORDS AND INFORMATION MANAGER Work Phone: [facility] 12-02-2023 10:38-0500 Respiratory rate 18 /min RECORDS AND INFORMATION MANAGER-C Barbra Isaias RECORDS AND INFORMATION MANAGER Work Phone: [facility] 12-02-2023 10:38-0500 Systolic blood pressure 152 mm[Hg] RECORDS AND INFORMATION MANAGER-C Barbra Isaias RECORDS AND INFORMATION MANAGER Work Phone: [facility] 11-21-2023 00:44-0500 Body weight 70.63 kg RECORDS AND INFORMATION MANAGER-C Barbra Isaias RECORDS AND INFORMATION MANAGER Work Phone: [facility] 11-18-2023 10:21-0500 Body mass index (BMI) [Ratio] 25.9 kg/m2 RECORDS AND INFORMATION MANAGER-C Barbra Isaias RECORDS AND INFORMATION MANAGER Work Phone: [facility] 11-18-2023 10:21-0500 Body temperature 96.9 [degF] RECORDS AND INFORMATION MANAGER-C Barbra Isaias RECORDS AND INFORMATION MANAGER Work Phone: [facility] 11-18-2023 10:21-0500 Diastolic blood pressure 66 mm[Hg] RECORDS AND INFORMATION MANAGER-C Barbra Isaias RECORDS AND INFORMATION MANAGER Work Phone: [facility] 11-18-2023 10:21-0500 Heart rate 58 /min RECORDS AND INFORMATION MANAGER-C Barbra Isaias RECORDS AND INFORMATION MANAGER Work Phone: [facility] 11-18-2023 10:21-0500 Respiratory rate 16 /min RECORDS AND INFORMATION MANAGER-C Barbra Isaias RECORDS AND INFORMATION MANAGER Work Phone: [facility] 11-18-2023 10:21-0500 Systolic blood pressure 147 mm[Hg] RECORDS AND INFORMATION MANAGER-C Barbra Isaias RECORDS AND INFORMATION MANAGER Work Phone: [facility] 10-21-2023 00:08-0500 Body weight 70.63 kg RECORDS AND INFORMATION MANAGER-C Barbra Isaias RECORDS AND INFORMATION MANAGER Work Phone: [facility] 10-07-2023 10:38-0500 Body mass index (BMI) [Ratio] 25.9 kg/m2 RECORDS AND INFORMATION MANAGER-C Barbra Isaias RECORDS AND INFORMATION MANAGER Work Phone: [facility] 10-07-2023 10:38-0500 Body temperature 97 [degF] RECORDS AND INFORMATION MANAGER-C Barbra Isaias RECORDS AND INFORMATION MANAGER Work Phone: [facility] 10-07-2023 10:38-0500 Diastolic blood pressure 65 mm[Hg] RECORDS AND INFORMATION MANAGER-C Barbra Isaias RECORDS AND INFORMATION MANAGER Work Phone: [facility] 10-07-2023 10:38-0500 Heart rate 59 /min RECORDS AND INFORMATION MANAGER-C Barbra Isaias RECORDS AND INFORMATION MANAGER Work Phone: [facility] 10-07-2023 10:38-0500 Respiratory rate 18 /min RECORDS AND INFORMATION MANAGER-C Barbra Isaias RECORDS AND INFORMATION MANAGER Work Phone: [facility] 10-07-2023 10:38-0500 Systolic blood pressure 154 mm[Hg] RECORDS AND INFORMATION MANAGER-C Barbra Isaias RECORDS AND INFORMATION MANAGER Work Phone: [facility] 08-21-2023 00:35-0400 Body weight 70.63 kg RECORDS AND INFORMATION MANAGER-C Barbra Isaias RECORDS AND INFORMATION MANAGER Work Phone: [facility] 08-19-2023 10:03-0400 Body mass index (BMI) [Ratio] 25.9 kg/m2 RECORDS AND INFORMATION MANAGER-C Barbra Isaias RECORDS AND INFORMATION MANAGER Work Phone: [facility] 08-19-2023 10:03-0400 Body temperature 97.8 [degF] RECORDS AND INFORMATION MANAGER-C Barbra Isaias RECORDS AND INFORMATION MANAGER Work Phone: [facility] 08-19-2023 10:03-0400 Diastolic blood pressure 55 mm[Hg] RECORDS AND INFORMATION MANAGER-C Barbra Isaias RECORDS AND INFORMATION MANAGER Work Phone: [facility] 08-19-2023 10:03-0400 Heart rate 63 /min RECORDS AND INFORMATION MANAGER-C Barbra Isaias RECORDS AND INFORMATION MANAGER Work Phone: [facility] 08-19-2023 10:03-0400 Respiratory rate 16 /min RECORDS AND INFORMATION MANAGER-C Barbra Isaias RECORDS AND INFORMATION MANAGER Work Phone: [facility] 08-19-2023 10:03-0400 Systolic blood pressure 123 mm[Hg] RECORDS AND INFORMATION MANAGER-C Barbra Isaias RECORDS AND INFORMATION MANAGER Work Phone: [facility] 07-21-2023 00:12-0400 Body weight 70.63 kg RECORDS AND INFORMATION MANAGER-C Barbra Isaias RECORDS AND INFORMATION MANAGER Work Phone: [facility] 07-01-2023 10:04-0400 Body mass index (BMI) [Ratio] 25.9 kg/m2 RECORDS AND INFORMATION MANAGER-C Barbra Isaias RECORDS AND INFORMATION MANAGER Work Phone: [facility] 07-01-2023 10:04-0400 Body temperature 96.6 [degF] RECORDS AND INFORMATION MANAGER-C Barbra Isaias RECORDS AND INFORMATION MANAGER Work Phone: [facility] 07-01-2023 10:04-0400 Diastolic blood pressure 55 mm[Hg] RECORDS AND INFORMATION MANAGER-C Barbra Isaias RECORDS AND INFORMATION MANAGER Work Phone: [facility] 07-01-2023 10:04-0400 Heart rate 58 /min RECORDS AND INFORMATION MANAGER-C Barbra Isaias RECORDS AND INFORMATION MANAGER Work Phone: [facility] 07-01-2023 10:04-0400 Respiratory rate 18 /min RECORDS AND INFORMATION MANAGER-C Barbra Isaias RECORDS AND INFORMATION MANAGER Work Phone: [facility] 07-01-2023 10:04-0400 Systolic blood pressure 57 mm[Hg] RECORDS AND INFORMATION MANAGER-C Barbra Isaias RECORDS AND INFORMATION MANAGER Work Phone: [facility] 06-21-2023 00:10-0400 Body weight 70.63 kg RECORDS AND INFORMATION MANAGER-C Barbra Isaias RECORDS AND INFORMATION MANAGER Work Phone: [facility] 06-03-2023 10:04-0400 Body mass index (BMI) [Ratio] 25.9 kg/m2 RECORDS AND INFORMATION MANAGER-C Barbra Isaias RECORDS AND INFORMATION MANAGER Work Phone: [facility] 06-03-2023 10:04-0400 Diastolic blood pressure 73 mm[Hg] RECORDS AND INFORMATION MANAGER-C Barbra Isaias RECORDS AND INFORMATION MANAGER Work Phone: [facility] 06-03-2023 10:04-0400 Heart rate 58 /min RECORDS AND INFORMATION MANAGER-C Barbra Isaias RECORDS AND INFORMATION MANAGER Work Phone: [facility] 06-03-2023 10:04-0400 Respiratory rate 16 /min RECORDS AND INFORMATION MANAGER-C Barbra Isaias RECORDS AND INFORMATION MANAGER Work Phone: [facility] 06-03-2023 10:04-0400 Systolic blood pressure 157 mm[Hg] RECORDS AND INFORMATION MANAGER-C Barbra Isaias RECORDS AND INFORMATION MANAGER Work Phone: [facility] 05-21-2023 00:13-0400 Body temperature 97.6 [degF] RECORDS AND INFORMATION MANAGER-C Barbra Isaias RECORDS AND INFORMATION MANAGER Work Phone: [facility] 05-21-2023 00:13-0400 Body weight 70.63 kg RECORDS AND INFORMATION MANAGER-C Barbra Isaias RECORDS AND INFORMATION MANAGER Work Phone: [facility] 05-06-2023 09:41-0400 Body mass index (BMI) [Ratio] 25.9 kg/m2 RECORDS AND INFORMATION MANAGER-C Barbra Isaias RECORDS AND INFORMATION MANAGER Work Phone: [facility] 05-06-2023 09:41-0400 Body temperature 97.6 [degF] RECORDS AND INFORMATION MANAGER-C Barbra Isaias RECORDS AND INFORMATION MANAGER Work Phone: [facility] 05-06-2023 09:41-0400 Diastolic blood pressure 74 mm[Hg] RECORDS AND INFORMATION MANAGER-C Barbra Isaias RECORDS AND INFORMATION MANAGER Work Phone: [facility] 05-06-2023 09:41-0400 Heart rate 76 /min RECORDS AND INFORMATION MANAGER-C Barbra Isaias RECORDS AND INFORMATION MANAGER Work Phone: [facility] 05-06-2023 09:41-0400 Respiratory rate 16 /min RECORDS AND INFORMATION MANAGER-C Barbra Isaias RECORDS AND INFORMATION MANAGER Work Phone: [facility] 05-06-2023 09:41-0400 Systolic blood pressure 182 mm[Hg] RECORDS AND INFORMATION MANAGER-C Barbra Isaias RECORDS AND INFORMATION MANAGER Work Phone: [facility] 04-20-2023 00:34-0400 Body weight 70.63 kg RECORDS AND INFORMATION MANAGER-C Barbra Isaias RECORDS AND INFORMATION MANAGER Work Phone: [facility] 04-08-2023 10:07-0400 Body mass index (BMI) [Ratio] 25.9 kg/m2 RECORDS AND INFORMATION MANAGER-C Barbra Isaias RECORDS AND INFORMATION MANAGER Work Phone: [facility] 04-08-2023 10:07-0400 Body temperature 97 [degF] RECORDS AND INFORMATION MANAGER-C Barbra Isaias RECORDS AND INFORMATION MANAGER Work Phone: [facility] 04-08-2023 10:07-0400 Diastolic blood pressure 69 mm[Hg] RECORDS AND INFORMATION MANAGER-C Barbra Isaias RECORDS AND INFORMATION MANAGER Work Phone: [facility] 04-08-2023 10:07-0400 Heart rate 61 /min RECORDS AND INFORMATION MANAGER-C Barbra Isaias RECORDS AND INFORMATION MANAGER Work Phone: [facility] 04-08-2023 10:07-0400 Respiratory rate 18 /min RECORDS AND INFORMATION MANAGER-C Barbra Isaias RECORDS AND INFORMATION MANAGER Work Phone: [facility] 04-08-2023 10:07-0400 Systolic blood pressure 137 mm[Hg] RECORDS AND INFORMATION MANAGER-C Barbra Isaias RECORDS AND INFORMATION MANAGER Work Phone: [facility] 03-28-2023 12:56-0400 Body height 162.56 cm RECORDS AND INFORMATION MANAGER-C Barbra Isaias RECORDS AND INFORMATION MANAGER Work Phone: [facility] 03-28-2023 12:56-0400 Body temperature 98.6 [degF] RECORDS AND INFORMATION MANAGER-C Barbra Isaias RECORDS AND INFORMATION MANAGER Work Phone: [facility] 03-28-2023 12:56-0400 Diastolic blood pressure 50 mm[Hg] RECORDS AND INFORMATION MANAGER-C Barbra Isaias RECORDS AND INFORMATION MANAGER Work Phone: [facility] 03-28-2023 12:56-0400 Heart rate 65 /min RECORDS AND INFORMATION MANAGER-C Barbra Isaias RECORDS AND INFORMATION MANAGER Work Phone: [facility] 03-28-2023 12:56-0400 Respiratory rate 16 /min RECORDS AND INFORMATION MANAGER-C Barbra Isaias RECORDS AND INFORMATION MANAGER Work Phone: [facility] 03-28-2023 12:56-0400 SaO2% (BldA) [Mass fraction] 99 % RECORDS AND INFORMATION MANAGER-C Barbra Isaias RECORDS AND INFORMATION MANAGER Work Phone: [facility] 03-28-2023 12:56-0400 Systolic blood pressure 110 mm[Hg] RECORDS AND INFORMATION MANAGER-C Barbra Isaias RECORDS AND INFORMATION MANAGER Work Phone: [facility] 03-21-2023 00:13-0400 Body weight 70.63 kg RECORDS AND INFORMATION MANAGER-C Barbra Isaias RECORDS AND INFORMATION MANAGER Work Phone: [facility] 02-25-2023 09:59-0400 Body mass index (BMI) [Ratio] 25.9 kg/m2 RECORDS AND INFORMATION MANAGER-C Barbra Isaias RECORDS AND INFORMATION MANAGER Work Phone: [facility] 02-25-2023 09:59-0400 Body temperature 97.6 [degF] RECORDS AND INFORMATION MANAGER-C Barbra Isaias RECORDS AND INFORMATION MANAGER Work Phone: [facility] 02-25-2023 09:59-0400 Diastolic blood pressure 63 mm[Hg] RECORDS AND INFORMATION MANAGER-C Barbra Isaias RECORDS AND INFORMATION MANAGER Work Phone: [facility] 02-25-2023 09:59-0400 Heart rate 58 /min RECORDS AND INFORMATION MANAGER-C Barbra Isaias RECORDS AND INFORMATION MANAGER Work Phone: [facility] 02-25-2023 09:59-0400 Respiratory rate 16 /min RECORDS AND INFORMATION MANAGER-C Barbra Isaias RECORDS AND INFORMATION MANAGER Work Phone: [facility] 02-25-2023 09:59-0400 Systolic blood pressure 158 mm[Hg] RECORDS AND INFORMATION MANAGER-C Barbra Isaias RECORDS AND INFORMATION MANAGER Work Phone: [facility] 02-18-2023 00:07-0400 Body weight 70.63 kg RECORDS AND INFORMATION MANAGER-C Barbra Isaias RECORDS AND INFORMATION MANAGER Work Phone: [facility] 01-28-2023 09:51-0400 Body mass index (BMI) [Ratio] 25.9 kg/m2 RECORDS AND INFORMATION MANAGER-C Barbra Isaias RECORDS AND INFORMATION MANAGER Work Phone: [facility] 01-28-2023 09:51-0400 Body temperature 96.7 [degF] RECORDS AND INFORMATION MANAGER-C Barbra Isaias RECORDS AND INFORMATION MANAGER Work Phone: [facility] 01-28-2023 09:51-0400 Diastolic blood pressure 67 mm[Hg] RECORDS AND INFORMATION MANAGER-C Barbra Isaias RECORDS AND INFORMATION MANAGER Work Phone: [facility] 01-28-2023 09:51-0400 Heart rate 64 /min RECORDS AND INFORMATION MANAGER-C Barbra Isaias RECORDS AND INFORMATION MANAGER Work Phone: [facility] 01-28-2023 09:51-0400 Respiratory rate 16 /min RECORDS AND INFORMATION MANAGER-C Barbra Isaias RECORDS AND INFORMATION MANAGER Work Phone: [facility] 01-28-2023 09:51-0400 Systolic blood pressure 144 mm[Hg] RECORDS AND INFORMATION MANAGER-C Barbra Isaias RECORDS AND INFORMATION MANAGER Work Phone: [facility] 01-06-2023 10:16-0400 Body mass index (BMI) [Ratio] 38.6 kg/m2 RECORDS AND INFORMATION MANAGER-C Barbra Isaias RECORDS AND INFORMATION MANAGER Work Phone: [facility] 01-06-2023 10:16-0400 Body weight 102.05 kg RECORDS AND INFORMATION MANAGER-C Barbra Isaias RECORDS AND INFORMATION MANAGER Work Phone: [facility] 01-06-2023 09:55-0400 Body height 162.56 cm RECORDS AND INFORMATION MANAGER-C Barbra Isaias RECORDS AND INFORMATION MANAGER Work Phone: [facility] 01-06-2023 09:55-0400 Body temperature 98.6 [degF] RECORDS AND INFORMATION MANAGER-C Barbra Isaias RECORDS AND INFORMATION MANAGER Work Phone: [facility] 01-06-2023 09:55-0400 Diastolic blood pressure 76 mm[Hg] RECORDS AND INFORMATION MANAGER-C Barbra Isaias RECORDS AND INFORMATION MANAGER Work Phone: [facility] 01-06-2023 09:55-0400 Heart rate 91 /min RECORDS AND INFORMATION MANAGER-C Barbra Isaias RECORDS AND INFORMATION MANAGER Work Phone: [facility] 01-06-2023 09:55-0400 Respiratory rate 22 /min RECORDS AND INFORMATION MANAGER-C Barbra Isaias RECORDS AND INFORMATION MANAGER Work Phone: [facility] 01-06-2023 09:55-0400 SaO2% (BldA) [Mass fraction] 99 % RECORDS AND INFORMATION MANAGER-C Barbra Isaias RECORDS AND INFORMATION MANAGER Work Phone: [facility] 01-06-2023 09:55-0400 Systolic blood pressure 158 mm[Hg] RECORDS AND INFORMATION MANAGER-C Barbra Isaias RECORDS AND INFORMATION MANAGER Work Phone: [facility] 12-19-2022 00:19-0500 Body weight 70.63 kg RECORDS AND INFORMATION MANAGER-C Barbra Isaias RECORDS AND INFORMATION MANAGER Work Phone: [facility] 12-10-2022 10:13-0500 Body mass index (BMI) [Ratio] 25.9 kg/m2 RECORDS AND INFORMATION MANAGER-C Barbra Isaias RECORDS AND INFORMATION MANAGER Work Phone: [facility] 12-10-2022 10:13-0500 Body temperature 95.9 [degF] RECORDS AND INFORMATION MANAGER-C Barbra Isaias RECORDS AND INFORMATION MANAGER Work Phone: [facility] 12-10-2022 10:13-0500 Diastolic blood pressure 62 mm[Hg] RECORDS AND INFORMATION MANAGER-C Barbra Isaias RECORDS AND INFORMATION MANAGER Work Phone: [facility] 12-10-2022 10:13-0500 Heart rate 59 /min RECORDS AND INFORMATION MANAGER-C Barbra Isaias RECORDS AND INFORMATION MANAGER Work Phone: [facility] 12-10-2022 10:13-0500 Respiratory rate 16 /min RECORDS AND INFORMATION MANAGER-C Barbra Isaias RECORDS AND INFORMATION MANAGER Work Phone: [facility] 12-10-2022 10:13-0500 Systolic blood pressure 152 mm[Hg] RECORDS AND INFORMATION MANAGER-C Barbra Isaias RECORDS AND INFORMATION MANAGER Work Phone: [facility] 11-21-2022 00:27-0500 Body weight 70.63 kg RECORDS AND INFORMATION MANAGER-C Barbra Isaias RECORDS AND INFORMATION MANAGER Work Phone: [facility] 11-19-2022 10:09-0500 Body mass index (BMI) [Ratio] 25.9 kg/m2 RECORDS AND INFORMATION MANAGER-C Barbra Isaias RECORDS AND INFORMATION MANAGER Work Phone: [facility] 11-19-2022 10:09-0500 Body temperature 97.2 [degF] RECORDS AND INFORMATION MANAGER-C Barbra Isaias RECORDS AND INFORMATION MANAGER Work Phone: [facility] 11-19-2022 10:09-0500 Diastolic blood pressure 73 mm[Hg] RECORDS AND INFORMATION MANAGER-C Barbra Isaias RECORDS AND INFORMATION MANAGER Work Phone: [facility] 11-19-2022 10:09-0500 Heart rate 59 /min RECORDS AND INFORMATION MANAGER-C Barbra Isaias RECORDS AND INFORMATION MANAGER Work Phone: [facility] 11-19-2022 10:09-0500 Systolic blood pressure 157 mm[Hg] RECORDS AND INFORMATION MANAGER-C Barbra Isaias RECORDS AND INFORMATION MANAGER Work Phone: [facility] 10-24-2022 10:15-0500 Respiratory rate 18 /min RECORDS AND INFORMATION MANAGER-C Barbra Isaias RECORDS AND INFORMATION MANAGER Work Phone: [facility] 10-21-2022 00:20-0500 Body weight 70.63 kg RECORDS AND INFORMATION MANAGER-C Barbra Isaias RECORDS AND INFORMATION MANAGER Work Phone: [facility] 10-16-2022 15:12-0500 Body temperature 97.3 [degF] RECORDS AND INFORMATION MANAGER-C Barbra Isaias RECORDS AND INFORMATION MANAGER Work Phone: [facility] 10-16-2022 15:12-0500 Diastolic blood pressure 53 mm[Hg] RECORDS AND INFORMATION MANAGER-C Barbra Isaias RECORDS AND INFORMATION MANAGER Work Phone: [facility] 10-16-2022 15:12-0500 Heart rate 75 /min RECORDS AND INFORMATION MANAGER-C Barbra Isaias RECORDS AND INFORMATION MANAGER Work Phone: [facility] 10-16-2022 15:12-0500 Respiratory rate 16 /min RECORDS AND INFORMATION MANAGER-C Barbra Isaias RECORDS AND INFORMATION MANAGER Work Phone: [facility] 10-16-2022 15:12-0500 SaO2% (BldA) [Mass fraction] 95 % RECORDS AND INFORMATION MANAGER-C Barbra Isaias RECORDS AND INFORMATION MANAGER Work Phone: [facility] 10-16-2022 15:12-0500 Systolic blood pressure 109 mm[Hg] RECORDS AND INFORMATION MANAGER-C Barbra Isaias RECORDS AND INFORMATION MANAGER Work Phone: [facility] 10-16-2022 11:05-0500 Body height 162.56 cm RECORDS AND INFORMATION MANAGER-C Barbra Isaias RECORDS AND INFORMATION MANAGER Work Phone: [facility] 10-16-2022 11:05-0500 Body mass index (BMI) [Ratio] 23.1 kg/m2 RECORDS AND INFORMATION MANAGER-C Barbra Isaias RECORDS AND INFORMATION MANAGER Work Phone: [facility] 10-16-2022 11:05-0500 Body weight 61.23 kg RECORDS AND INFORMATION MANAGER-C Barbra Isaias RECORDS AND INFORMATION MANAGER Work Phone: [facility] 10-01-2022 10:27-0500 Body mass index (BMI) [Ratio] 25.9 kg/m2 RECORDS AND INFORMATION MANAGER-C Barbra Isaias RECORDS AND INFORMATION MANAGER Work Phone: [facility] 10-01-2022 10:27-0500 Body temperature 96.1 [degF] RECORDS AND INFORMATION MANAGER-C Barbra Isaias RECORDS AND INFORMATION MANAGER Work Phone: [facility] 10-01-2022 10:27-0500 Diastolic blood pressure 98 mm[Hg] RECORDS AND INFORMATION MANAGER-C Barbra Isaias RECORDS AND INFORMATION MANAGER Work Phone: [facility] 10-01-2022 10:27-0500 Heart rate 56 /min RECORDS AND INFORMATION MANAGER-C Barbra Isaias RECORDS AND INFORMATION MANAGER Work Phone: [facility] 10-01-2022 10:27-0500 Systolic blood pressure 149 mm[Hg] RECORDS AND INFORMATION MANAGER-C Barbra Isaias RECORDS AND INFORMATION MANAGER Work Phone: [facility] 09-20-2022 00:24-0500 Body weight 70.63 kg RECORDS AND INFORMATION MANAGER-C Barbra Isaias RECORDS AND INFORMATION MANAGER Work Phone: [facility] 09-20-2022 00:24-0500 Respiratory rate 16 /min RECORDS AND INFORMATION MANAGER-C Barbra Isaias RECORDS AND INFORMATION MANAGER Work Phone: [facility] 09-03-2022 10:17-0500 Body mass index (BMI) [Ratio] 25.9 kg/m2 RECORDS AND INFORMATION MANAGER-C Barbra Isaias RECORDS AND INFORMATION MANAGER Work Phone: [facility] 09-03-2022 10:17-0500 Body temperature 97.1 [degF] RECORDS AND INFORMATION MANAGER-C Barbra Isaias RECORDS AND INFORMATION MANAGER Work Phone: [facility] 09-03-2022 10:17-0500 Diastolic blood pressure 78 mm[Hg] RECORDS AND INFORMATION MANAGER-C Barbra Isaias RECORDS AND INFORMATION MANAGER Work Phone: [facility] 09-03-2022 10:17-0500 Heart rate 52 /min RECORDS AND INFORMATION MANAGER-C Barbra Isaias RECORDS AND INFORMATION MANAGER Work Phone: [facility] 09-03-2022 10:17-0500 Systolic blood pressure 147 mm[Hg] RECORDS AND INFORMATION MANAGER-C Barbra Isaias RECORDS AND INFORMATION MANAGER Work Phone: [facility] 08-21-2022 00:25-0400 Body weight 70.63 kg RECORDS AND INFORMATION MANAGER-C Barbra Isaias RECORDS AND INFORMATION MANAGER Work Phone: [facility] 08-21-2022 00:25-0400 Respiratory rate 16 /min RECORDS AND INFORMATION MANAGER-C Barbra Isaias RECORDS AND INFORMATION MANAGER Work Phone: [facility] 08-13-2022 09:54-0400 Body mass index (BMI) [Ratio] 25.9 kg/m2 RECORDS AND INFORMATION MANAGER-C Barbra Isaias RECORDS AND INFORMATION MANAGER Work Phone: [facility] 08-13-2022 09:54-0400 Body temperature 97 [degF] RECORDS AND INFORMATION MANAGER-C Barbra Isaias RECORDS AND INFORMATION MANAGER Work Phone: [facility] 08-13-2022 09:54-0400 Diastolic blood pressure 59 mm[Hg] RECORDS AND INFORMATION MANAGER-C Barbra Isaias RECORDS AND INFORMATION MANAGER Work Phone: [facility] 08-13-2022 09:54-0400 Heart rate 54 /min RECORDS AND INFORMATION MANAGER-C Barbra Isaias RECORDS AND INFORMATION MANAGER Work Phone: [facility] 08-13-2022 09:54-0400 Systolic blood pressure 136 mm[Hg] RECORDS AND INFORMATION MANAGER-C Barbra Isaias RECORDS AND INFORMATION MANAGER Work Phone: [facility] 07-21-2022 01:12-0400 Body weight 70.63 kg RECORDS AND INFORMATION MANAGER-C Barbra Isaias RECORDS AND INFORMATION MANAGER Work Phone: [facility] 07-21-2022 01:12-0400 Respiratory rate 16 /min RECORDS AND INFORMATION MANAGER-C Barbra Isaias RECORDS AND INFORMATION MANAGER Work Phone: [facility] 07-02-2022 10:02-0400 Body mass index (BMI) [Ratio] 25.9 kg/m2 Dr. Jennie Mcintyre Work Phone: [facility] Work Phone: 07-02-2022 10:02-0400 Body temperature 97 [degF] Dr. Jennie Mcintyre Work Phone: [facility] Work Phone: 07-02-2022 10:02-0400 Diastolic blood pressure 70 mm[Hg] Dr. Jennie Mcintyre Work Phone: [facility] Work Phone: 07-02-2022 10:02-0400 Heart rate 55 /min Dr. Jennie Mcintyre Work Phone: [facility] Work Phone: 07-02-2022 10:02-0400 Systolic blood pressure 149 mm[Hg] Dr. Jennie Mcintyre Work Phone: [facility] Work Phone: 06-21-2022 00:27-0400 Body weight 70.[address] Jennie Mcintyre Work Phone: [facility] Work Phone: 06-21-2022 00:27-0400 Respiratory rate 16 /min Dr. Jennie Mcintyre Work Phone: [facility] Work Phone: 06-11-2022 09:50-0400 Body mass index (BMI) [Ratio] 25.9 kg/m2 RECORDS AND INFORMATION MANAGER-C Barbra Isaias RECORDS AND INFORMATION MANAGER Work Phone: [facility] Work Phone: 06-11-2022 09:50-0400 Body temperature 97.9 [degF] RECORDS AND INFORMATION MANAGER-C Barbra Isaias RECORDS AND INFORMATION MANAGER Work Phone: [facility] Work Phone: 06-11-2022 09:50-0400 Diastolic blood pressure 71 mm[Hg] RECORDS AND INFORMATION MANAGER-C Barbra Isaias RECORDS AND INFORMATION MANAGER Work Phone: [facility] Work Phone: 06-11-2022 09:50-0400 Heart rate 79 /min RECORDS AND INFORMATION MANAGER-C Barbra Isaias RECORDS AND INFORMATION MANAGER Work Phone: [facility] Work Phone: 06-11-2022 09:50-0400 Systolic blood pressure 150 mm[Hg] RECORDS AND INFORMATION MANAGER-C Barbra Isaias RECORDS AND INFORMATION MANAGER Work Phone: [facility] Work Phone: 05-21-2022 00:24-0400 Body weight 70.63 kg RECORDS AND INFORMATION MANAGER-C Barbra Isaias RECORDS AND INFORMATION MANAGER Work Phone: [facility] Work Phone: 05-21-2022 00:24-0400 Respiratory rate 16 /min RECORDS AND INFORMATION MANAGER-C Barbra Isaias RECORDS AND INFORMATION MANAGER Work Phone: [facility] Work Phone: 04-30-2022 09:54-0400 Body mass index (BMI) [Ratio] 25.9 kg/m2 Dr. Jennie Mcintyre Work Phone: [facility] Work Phone: 04-30-2022 09:54-0400 Body temperature 96.8 [degF] Dr. Jennie Mcintyre Work Phone: [facility] Work Phone: 04-30-2022 09:54-0400 Diastolic blood pressure 67 mm[Hg] Dr. Jennie Mcintyre Work Phone: [facility] Work Phone: 04-30-2022 09:54-0400 Heart rate 50 /min Dr. Jennie Mcintyre Work Phone: [facility] Work Phone: 04-30-2022 09:54-0400 Systolic blood pressure 143 mm[Hg] Dr. Jennie Mcintyre Work Phone: [facility] Work Phone: 04-20-2022 00:29-0400 Body weight 70.[address] Jennie Mcintyre Work Phone: [facility] Work Phone: 04-20-2022 00:29-0400 Respiratory rate 16 /min Dr. Jennie Mcintyre Work Phone: [facility] Work Phone: 04-09-2022 10:04-0400 Body mass index (BMI) [Ratio] 25.9 kg/m2 RECORDS AND INFORMATION MANAGER-C Barbra Isaias RECORDS AND INFORMATION MANAGER Work Phone: [facility] Work Phone: 04-09-2022 10:04-0400 Body temperature 97 [degF] RECORDS AND INFORMATION MANAGER-C Barbra Isaias RECORDS AND INFORMATION MANAGER Work Phone: [facility] Work Phone: 04-09-2022 10:04-0400 Diastolic blood pressure 70 mm[Hg] RECORDS AND INFORMATION MANAGER-C Barbra Isaias RECORDS AND INFORMATION MANAGER Work Phone: [facility] Work Phone: 04-09-2022 10:04-0400 Heart rate 77 /min RECORDS AND INFORMATION MANAGER-C Barbra Isaias RECORDS AND INFORMATION MANAGER Work Phone: [facility] Work Phone: 04-09-2022 10:04-0400 Systolic blood pressure 160 mm[Hg] RECORDS AND INFORMATION MANAGER-C Barbra Isaias RECORDS AND INFORMATION MANAGER Work Phone: [facility] Work Phone: 03-27-2022 14:28-0400 Body height 162.56 cm RECORDS AND INFORMATION MANAGER-C Barbra Isaias RECORDS AND INFORMATION MANAGER Work Phone: [facility] Work Phone: 03-27-2022 14:28-0400 Body temperature 98.6 [degF] RECORDS AND INFORMATION MANAGER-C Barbra Isaias RECORDS AND INFORMATION MANAGER Work Phone: [facility] Work Phone: 03-27-2022 14:28-0400 Diastolic blood pressure 70 mm[Hg] RECORDS AND INFORMATION MANAGER-C Barbra Isaias RECORDS AND INFORMATION MANAGER Work Phone: [facility] Work Phone: 03-27-2022 14:28-0400 Heart rate 69 /min RECORDS AND INFORMATION MANAGER-C Barbra Isaias RECORDS AND INFORMATION MANAGER Work Phone: [facility] Work Phone: 03-27-2022 14:28-0400 Respiratory rate 16 /min RECORDS AND INFORMATION MANAGER-C Barbra Isaias RECORDS AND INFORMATION MANAGER Work Phone: [facility] Work Phone: 03-27-2022 14:28-0400 SaO2% (BldA) [Mass fraction] 99 % RECORDS AND INFORMATION MANAGER-C Barbra Isaias RECORDS AND INFORMATION MANAGER Work Phone: [facility] Work Phone: 03-27-2022 14:28-0400 Systolic blood pressure 123 mm[Hg] RECORDS AND INFORMATION MANAGER-C Barbra Isaias RECORDS AND INFORMATION MANAGER Work Phone: [facility] Work Phone: 03-21-2022 00:48-0400 Body weight 70.63 kg RECORDS AND INFORMATION MANAGER-C Barbra Isaias RECORDS AND INFORMATION MANAGER Work Phone: [facility] Work Phone: 03-21-2022 00:48-0400 Respiratory rate 16 /min RECORDS AND INFORMATION MANAGER-C Barbra Isaias RECORDS AND INFORMATION MANAGER Work Phone: [facility] Work Phone: 03-12-2022 09:50-0400 Body mass index (BMI) [Ratio] 25.9 kg/m2 Dr. Modesto Fulton Work Phone: [facility] Work Phone: 03-12-2022 09:50-0400 Body temperature 96.6 [degF] Dr. Modesto Fulton Work Phone: [facility] Work Phone: 03-12-2022 09:50-0400 Diastolic blood pressure 67 mm[Hg] Dr. Modesto Fulton Work Phone: [facility] Work Phone: 03-12-2022 09:50-0400 Heart rate 56 /min Dr. Modesto Fulton Work Phone: [facility] Work Phone: 03-12-2022 09:50-0400 Respiratory rate 16 /min Dr. Modesto Fulton Work Phone: [facility] Work Phone: 03-12-2022 09:50-0400 Systolic blood pressure 164 mm[Hg] Dr. Modesto Fulton Work Phone: [facility] Work Phone: 03-05-2022 13:31-0400 Body temperature 98.3 [degF] RECORDS AND INFORMATION MANAGER-C Barbra Isaias RECORDS AND INFORMATION MANAGER Work Phone: [facility] Work Phone: 03-05-2022 13:31-0400 Body weight 55.33 kg RECORDS AND INFORMATION MANAGER-C Barbra Isaias RECORDS AND INFORMATION MANAGER Work Phone: [facility] Work Phone: 03-05-2022 13:31-0400 Diastolic blood pressure 61 mm[Hg] RECORDS AND INFORMATION MANAGER-C Barbra Isaias RECORDS AND INFORMATION MANAGER Work Phone: [facility] Work Phone: 03-05-2022 13:31-0400 Heart rate 62 /min RECORDS AND INFORMATION MANAGER-C Barbra Isaias RECORDS AND INFORMATION MANAGER Work Phone: [facility] Work Phone: 03-05-2022 13:31-0400 Respiratory rate 17 /min RECORDS AND INFORMATION MANAGER-C Barbra Whaleyndell RECORDS AND INFORMATION MANAGER Work Phone: [facility] Work Phone: 03-05-2022 13:31-0400 SaO2% (BldA) [Mass fraction] 97 % RECORDS AND INFORMATION MANAGER-C Barbrashellie WhaleyIsaias RECORDS AND INFORMATION MANAGER Work Phone: [facility] Work Phone: 03-05-2022 13:31-0400 Systolic blood pressure 103 mm[Hg] RECORDS AND INFORMATION MANAGER-C Barbra Isaias RECORDS AND INFORMATION MANAGER Work Phone: [facility] Work Phone: 03-05-2022 13:31-0400 Body temperature 98.3 [degF] Dr. Modesto Fulton Work Phone: [facility] Work Phone: 03-05-2022 13:31-0400 Body weight 55.[address] Modesto Fulton Work Phone: [facility] Work Phone: 03-05-2022 13:31-0400 Diastolic blood pressure 61 mm[Hg] Dr. Modesto Fulton Work Phone: [facility] Work Phone: 03-05-2022 13:31-0400 Heart rate 62 /min Dr. Modesto Fulton Work Phone: [facility] Work Phone: 03-05-2022 13:31-0400 Respiratory rate 17 /min Dr. Modesto Fulton Work Phone: [facility] Work Phone: 03-05-2022 13:31-0400 SaO2% (BldA) [Mass fraction] 97 % Dr. Modesto Fulton Work Phone: [facility] Work Phone: 03-05-2022 13:31-0400 Systolic blood pressure 103 mm[Hg] Dr. Modesto Fulton Work Phone: [facility] Work Phone: 02-26-2022 10:45-0400 Body mass index (BMI) [Ratio] 25.9 kg/m2 Dr. Modesto Fulton Work Phone: [facility] Work Phone: 02-26-2022 10:45-0400 Body temperature 96.3 [degF] Dr. Modesto Fulton Work Phone: [facility] Work Phone: 02-26-2022 10:45-0400 Diastolic blood pressure 64 mm[Hg] Dr. Modesto Fulton Work Phone: [facility] Work Phone: 02-26-2022 10:45-0400 Heart rate 63 /min Dr. Modesto Fulton Work Phone: [facility] Work Phone: 02-26-2022 10:45-0400 Systolic blood pressure 128 mm[Hg] Dr. Modesto Fulton Work Phone: [facility] Work Phone: 02-18-2022 00:31-0400 Body weight 70.[address] Modesto Fulton Work Phone: [facility] Work Phone: 02-18-2022 00:31-0400 Respiratory rate 16 /min Dr. Modesto Fulton Work Phone: [facility] Work Phone: 02-12-2022 10:34-0400 Body mass index (BMI) [Ratio] 25.9 kg/m2 Dr. Modesto Fulton Work Phone: [facility] Work Phone: 02-12-2022 10:34-0400 Body temperature 97.2 [degF] Dr. Modesto Fulton Work Phone: [facility] Work Phone: 02-12-2022 10:34-0400 Diastolic blood pressure 57 mm[Hg] Dr. Modesto Fulton Work Phone: [facility] Work Phone: 02-12-2022 10:34-0400 Heart rate 59 /min Dr. Modesto Fulton Work Phone: [facility] Work Phone: 02-12-2022 10:34-0400 Systolic blood pressure 139 mm[Hg] Dr. Modesto Fulton Work Phone: [facility] Work Phone: 01-29-2022 10:20-0400 Respiratory rate 16 /min Dr. Modesto Fulton Work Phone: [facility] Work Phone: 01-22-2022 10:15-0400 SaO2% (BldA) [Mass fraction] 97 % Dr. Modesto Fulton Work Phone: [facility] Work Phone: 01-22-2022 10:12-0400 Heart rate 89 /min Dr. Modesto Fulton Work Phone: [facility] Work Phone: 01-22-2022 10:08-0400 Body temperature 98.4 [degF] Dr. Modesto Fulton Work Phone: [facility] Work Phone: 01-22-2022 10:08-0400 Diastolic blood pressure 60 mm[Hg] Dr. Modesto Fulton Work Phone: [facility] Work Phone: 01-22-2022 10:08-0400 Respiratory rate 16 /min Dr. Modesto Fulton Work Phone: [facility] Work Phone: 01-22-2022 10:08-0400 Systolic blood pressure 112 mm[Hg] Dr. Modesto Fulton Work Phone: [facility] Work Phone: 01-20-2022 10:33-0400 Body height [address] Modesto Fulton Work Phone: [facility] Work Phone: 01-20-2022 10:33-0400 Body weight 56.[address] Modesto Fulton Work Phone: [facility] Work Phone: 01-20-2022 00:13-0400 Body mass index (BMI) [Ratio] 20.7 kg/m2 Dr. Modesto Fulton Work Phone: [facility] Work Phone: 01-19-2022 23:10-0400 Body temperature 98.2 [degF] Dr. Modesto Fulton Work Phone: [facility] Work Phone: 01-19-2022 23:10-0400 Diastolic blood pressure 69 mm[Hg] Dr. Modesto Fulton Work Phone: [facility] Work Phone: 01-19-2022 23:10-0400 Heart rate 78 /min Dr. Modesto Fulton Work Phone: [facility] Work Phone: 01-19-2022 23:10-0400 Respiratory rate 16 /min Dr. Modesto Fulton Work Phone: [facility] Work Phone: 01-19-2022 23:10-0400 SaO2% (BldA) [Mass fraction] 98 % Dr. Modesto Fulton Work Phone: [facility] Work Phone: 01-19-2022 23:10-0400 Systolic blood pressure 158 mm[Hg] Dr. Modesto Fulton Work Phone: [facility] Work Phone: 01-19-2022 18:32-0400 Body height 165.[address] Modesto Fulton Work Phone: [facility] Work Phone: 01-19-2022 18:32-0400 Body mass index (BMI) [Ratio] 23.3 kg/m2 Dr. Modesto Fulton Work Phone: [facility] Work Phone: 01-19-2022 18:32-0400 Body weight 63.[address] Modesto Fulton Work Phone: [facility] Work Phone: 01-19-2022 00:33-0400 Body weight 70.[address] Modesto Fulton Work Phone: [facility] Work Phone: 01-17-2022 09:51-0400 Diastolic blood pressure 65 mm[Hg] RECORDS AND INFORMATION MANAGER-C Barbra Isaias RECORDS AND INFORMATION MANAGER Work Phone: [facility] Work Phone: 01-17-2022 09:51-0400 Heart rate 68 /min RECORDS AND INFORMATION MANAGER-C Barbra Isaias RECORDS AND INFORMATION MANAGER Work Phone: [facility] Work Phone: 01-17-2022 09:51-0400 Respiratory rate 18 /min RECORDS AND INFORMATION MANAGER-C Barbra Isaias RECORDS AND INFORMATION MANAGER Work Phone: [facility] Work Phone: 01-17-2022 09:51-0400 SaO2% (BldA) [Mass fraction] 96 % RECORDS AND INFORMATION MANAGER-C Barbra Isaias RECORDS AND INFORMATION MANAGER Work Phone: [facility] Work Phone: 01-17-2022 09:51-0400 Systolic blood pressure 125 mm[Hg] RECORDS AND INFORMATION MANAGER-C Barbra Isaias RECORDS AND INFORMATION MANAGER Work Phone: [facility] Work Phone: 01-17-2022 09:51-0400 Diastolic blood pressure 65 mm[Hg] Dr. Modesto Fulton Work Phone: [facility] Work Phone: 01-17-2022 09:51-0400 Heart rate 68 /min Dr. Modesto Fulton Work Phone: [facility] Work Phone: 01-17-2022 09:51-0400 Respiratory rate 18 /min Dr. Modesto Fulton Work Phone: [facility] Work Phone: 01-17-2022 09:51-0400 SaO2% (BldA) [Mass fraction] 96 % Dr. Modesto Fulton Work Phone: [facility] Work Phone: 01-17-2022 09:51-0400 Systolic blood pressure 125 mm[Hg] Dr. Modesto Fulton Work Phone: [facility] Work Phone: 01-15-2022 10:14-0400 Body mass index (BMI) [Ratio] 25.9 kg/m2 Dr. Modesto Fulton Work Phone: [facility] Work Phone: 01-15-2022 10:14-0400 Body temperature 97.1 [degF] Dr. Modesto Fulton Work Phone: [facility] Work Phone: 01-15-2022 10:14-0400 Diastolic blood pressure 70 mm[Hg] Dr. Modesto Fulton Work Phone: [facility] Work Phone: 01-15-2022 10:14-0400 Heart rate 67 /min Dr. Modesto Fulton Work Phone: [facility] Work Phone: 01-15-2022 10:14-0400 Respiratory rate 18 /min Dr. Modesto Fulton Work Phone: [facility] Work Phone: 01-15-2022 10:14-0400 Systolic blood pressure 124 mm[Hg] Dr. Modesto Fulton Work Phone: [facility] Work Phone: 12-19-2021 00:32-0500 Body weight 70.63 kg RECORDS AND INFORMATION MANAGER-C Barbra Esparza NP Work Phone: [facility] Work Phone: 12-18-2021 23:32-0500 Body weight 70.[address] Modesto Fulton Work Phone: [facility] Work Phone: 12-18-2021 10:49-0500 Body mass index (BMI) [Ratio] 25.9 kg/m2 Dr. Modesto Fulton Work Phone: [facility] Work Phone: 12-18-2021 10:49-0500 Body temperature 97 [degF] Dr. Modesto Fulton Work Phone: [facility] Work Phone: 12-18-2021 10:49-0500 Diastolic blood pressure 70 mm[Hg] Dr. Modesto Fulton Work Phone: [facility] Work Phone: 12-18-2021 10:49-0500 Heart rate 72 /min Dr. Modesto Fulton Work Phone: [facility] Work Phone: 12-18-2021 10:49-0500 Respiratory rate 17 /min Dr. Modesto Fulton Work Phone: [facility] Work Phone: 12-18-2021 10:49-0500 Systolic blood pressure 134 mm[Hg] Dr. Modesto Fulton Work Phone: [facility] Work Phone: 12-12-2021 08:06-0500 Body height 165.[address] Modesto Fulton Work Phone: [facility] Work Phone: 12-12-2021 08:06-0500 Body mass index (BMI) [Ratio] 23.3 kg/m2 Dr. Modesto Fulton Work Phone: [facility] Work Phone: 12-12-2021 08:06-0500 Body weight 63.[address] Modesto Fulton Work Phone: [facility] Work Phone: 12-12-2021 08:06-0500 Diastolic blood pressure 68 mm[Hg] Dr. Modesto Fulton Work Phone: [facility] Work Phone: 12-12-2021 08:06-0500 Heart rate 63 /min Dr. Modesto Fulton Work Phone: [facility] Work Phone: 12-12-2021 08:06-0500 Respiratory rate 16 /min Dr. Modesto Fulton Work Phone: [facility] Work Phone: 12-12-2021 08:06-0500 SaO2% (BldA) [Mass fraction] 96 % Dr. Modesto Fulton Work Phone: [facility] Work Phone: 12-12-2021 08:06-0500 Systolic blood pressure 132 mm[Hg] Dr. Modesto Fulton Work Phone: [facility] Work Phone: 11-20-2021 23:39-0500 Body weight 70.[address] Modesto Fulton Work Phone: [facility] Work Phone: 11-20-2021 13:15-0500 Body mass index (BMI) [Ratio] 25.9 kg/m2 Dr. Modesto Fulton Work Phone: [facility] Work Phone: 11-20-2021 13:15-0500 Body temperature 98.9 [degF] Dr. Modesto Fulton Work Phone: [facility] Work Phone: 11-20-2021 13:15-0500 Diastolic blood pressure 75 mm[Hg] Dr. Modesto Fulton Work Phone: [facility] Work Phone: 11-20-2021 13:15-0500 Heart rate 64 /min Dr. Modesto Fulton Work Phone: [facility] Work Phone: 11-20-2021 13:15-0500 Systolic blood pressure 130 mm[Hg] Dr. Modesto Fulton Work Phone: [facility] Work Phone: 10-30-2021 12:13-0500 Body temperature 98.3 [degF] Dr. Modesto Fulton Work Phone: [facility] Work Phone: 10-30-2021 12:13-0500 Diastolic blood pressure 67 mm[Hg] Dr. Modesto Fulton Work Phone: [facility] Work Phone: 10-30-2021 12:13-0500 Heart rate 74 /min Dr. Modesto Fulton Work Phone: [facility] Work Phone: 10-30-2021 12:13-0500 Respiratory rate 14 /min Dr. Modesto Fulton Work Phone: [facility] Work Phone: 10-30-2021 12:13-0500 SaO2% (BldA) [Mass fraction] 94 % Dr. Modesto Fulton Work Phone: [facility] Work Phone: 10-30-2021 12:13-0500 Systolic blood pressure 112 mm[Hg] Dr. Modesto Fulton Work Phone: [facility] Work Phone: 10-20-2021 23:32-0500 Body weight 70.[address] Modesto Fulton Work Phone: [facility] Work Phone: 10-20-2021 23:32-0500 Respiratory rate 20 /min Dr. Modesto Fulton Work Phone: [facility] Work Phone: 10-12-2021 12:34-0500 Body temperature 97.6 [degF] Dr. Modesto Fulton Work Phone: [facility] Work Phone: 10-12-2021 12:34-0500 Diastolic blood pressure 71 mm[Hg] Dr. Modesto Fulton Work Phone: [facility] Work Phone: 10-12-2021 12:34-0500 Heart rate 80 /min Dr. Modesto Fulton Work Phone: [facility] Work Phone: 10-12-2021 12:34-0500 Respiratory rate 16 /min Dr. Modesto Fulton Work Phone: [facility] Work Phone: 10-12-2021 12:34-0500 SaO2% (BldA) [Mass fraction] 98 % Dr. Modesto Fulton Work Phone: [facility] Work Phone: 10-12-2021 12:34-0500 Systolic blood pressure 103 mm[Hg] Dr. Modesto Fulton Work Phone: [facility] Work Phone: 10-11-2021 12:57-0500 Body weight 60.[address] Modesto Fulton Work Phone: [facility] Work Phone: 10-07-2021 12:49-0500 Body mass index (BMI) [Ratio] 22.1 kg/m2 Dr. Modesto Fulton Work Phone: [facility] Work Phone: 09-25-2021 12:25-0500 Body mass index (BMI) [Ratio] 25.9 kg/m2 Dr. Modesto Fulton Work Phone: [facility] Work Phone: 09-25-2021 12:25-0500 Body temperature 96.9 [degF] Dr. Modesto Fulton Work Phone: [facility] Work Phone: 09-25-2021 12:25-0500 Diastolic blood pressure 71 mm[Hg] Dr. Modesto Fulton Work Phone: [facility] Work Phone: 09-25-2021 12:25-0500 Heart rate 70 /min Dr. Modesto Fulton Work Phone: [facility] Work Phone: 09-25-2021 12:25-0500 Respiratory rate 20 /min Dr. Modesto Fulton Work Phone: [facility] Work Phone: 09-25-2021 12:25-0500 Systolic blood pressure 164 mm[Hg] Dr. Modesto Fulton Work Phone: [facility] Work Phone: 09-19-2021 23:35-0500 Body weight 70.[address] Modesto Fulton Work Phone: [facility] Work Phone: 05-06-2021 14:35-0400 Body mass index (BMI) [Ratio] 29.7 kg/m2 Dr. Modesto Fulton Work Phone: [facility] Work Phone: Encounters Encounter Date Encounter Type Care Provider Facility Start: 08-10-2025 ambulatory JENNIE JOHNS [facility] Start: 05-19-2025 Non-patient / Non-visit Dr. Oscar Steele MD -[facility] Start: 05-18-2025 End: 05-20-[address] Jennie Mcintyre MD Work Phone: [facility] [place] Start: 05-18-2025 End: 05-20-[address] Oscar Steele MD -[facility] Work Phone: Start: 05-13-2025 End: 05-13-2025 ambulatory [facility] Start: 04-27-2025 Non-patient / Non-visit Dr. Oscar Steele MD -[facility] Start: 04-20-2025 Non-patient / Non-visit Dr. Phyllis jurado MD -[facility] Work Phone: Start: 04-16-2025 Non-patient / Non-visit Dr. Oscar Steele MD [facility] Start: 04-14-2025 End: 04-19-[address] Jennie Mcintyre MD Work Phone: -[facility] [place] Start: 04-14-2025 End: 04-19-[address] Oscar Steele MD -[facility] Work Phone: Start: 04-14-2025 Non-patient / [facility] Start: 04-07-2025 Non-patient / [facility] Start: 03-19-2025 Non-patient / [facility] Start: 03-17-2025 End: 03-20-[address] Jennie Mcintyre MD Work Phone: [facility] Work Phone: Start: 03-17-2025 End: 03-20-[address] Oscar Steele MD -[facility] Work Phone: Start: 03-17-2025 Non-patient / [facility] Start: 03-03-2025 Non-patient / Non-[facility] Start: 02-24-2025 Non-patient / [facility] Start: 02-17-2025 End: 02-17-2025 ambulatory JENNIE MCINTYRE [facility] Start: 02-10-2025 Non-patient / Non-[facility] Start: 02-10-2025 End: 02-17-2025 ambulatory Jennie Mcintyre Facility:[facility] Start: 02-10-2025 End: 02-17-[address] Oscar Steele MD -[facility] Work Phone: Start: 01-30-2025 End: 01-30-2025 Emergency department patient visit ILANA LOVETT [facility] Start: 01-20-2025 ambulatory Jennie Johnson ty:[facility] Start: 01-20-2025 Non-patient / Non-visit Barbra E Isaias RECORDS AND INFORMATION MANAGER-C -[facility] Start: 01-05-2025 ambulatory JENNIE MCINTYRE [facility] Start: 12-30-2024 ambulatory Jennie Gomezi ty:[facility] Start: 12-30-2024 Non-patient / Non-visit Barbra E Isaias RECORDS AND INFORMATION MANAGER-C -[facility] Start: 12-30-2024 End: 01-18-2025 Discharged Recurring Barbra E Isaias RECORDS AND INFORMATION MANAGER-C [facility] Work Phone: Start: 12-30-2024 End: 01-18-[address] Jennie Mcintyre MD Work Phone: [facility] Work Phone: Start: 12-23-2024 End: 12-23-2024 Admission to same day surgery center Dr. Yomi Rose MD [facility] Start: 12-23-2024 End: 12-23-2024 ambulatory Jennie Mcintyre Facility:[facility] Start: 12-21-2024 End: 12-21-2024 ambulatory ZAYNAB JOHNS [facility] Start: 12-16-2024 ambulatory Jennie Johnson ty:[facility] Start: 12-16-2024 Non-patient / Non-visit Barbra E Isaias RECORDS AND INFORMATION MANAGER-C -[facility] Start: 12-16-2024 End: 12-18-2024 Discharged Recurring Barbra E Isaias RECORDS AND INFORMATION MANAGER-C -[facility] Work Phone: Start: 12-16-2024 End: 12-18-2024 ambulatory Jennie Mcintyre Facility:[facility] Start: 11-18-2024 Non-patient / Non-visit Barbra E Isaias RECORDS AND INFORMATION MANAGER-C -[facility] Start: 11-18-2024 End: 11-20-2024 ambulatory Jennie Mcintyre Facility:[facility] Start: 11-18-2024 End: 11-20-2024 Discharged Recurring Barbrashellie Martiniell RECORDS AND INFORMATION MANAGER-C -[facility] Work Phone: Start: 11-04-2024 ambulatory Jennie Mcintyre Facili ty:[facility] Start: 11-04-2024 Non-patient / Non-visit Barbra So WhaleyIsaias RECORDS AND INFORMATION MANAGER-C -[facility] Start: 09-24-2024 End: 09-25-2024 Emergency department patient visit [facility] Start: 12-02-2023 Non-patient / Non-visit RECORDS AND INFORMATION MANAGER-C S tacey Isaias RECORDS AND INFORMATION MANAGER Work Phone: [facility] Start: 12-02-2023 End: 12-02-2023 ambulatory RECORDS AND INFORMATION MANAGER-C Barbra So WhaleyIsaias RECORDS AND INFORMATION MANAGER Work Phone: [facility] Work Phone: Start: 12-02-2023 End: 12-02-2023 Discharged Recurring RECORDS AND INFORMATION MANAGER-C Barbra Isaias RECORDS AND INFORMATION MANAGER Work Phone: [facility] Work Phone: Start: 11-18-2023 Non-patient / Non-visit RECORDS AND INFORMATION MANAGER-C S tacey Isaias RECORDS AND INFORMATION MANAGER Work Phone: [facility] Start: 11-18-2023 End: 11-20-2023 Discharged Recurring RECORDS AND INFORMATION MANAGER-C Barbra Isaias RECORDS AND INFORMATION MANAGER Work Phone: [facility] Work Phone: Start: 11-04-2023 Non-patient / Non-visit RECORDS AND INFORMATION MANAGER-C S tacey Isaias RECORDS AND INFORMATION MANAGER Work Phone: [facility] Start: 10-07-2023 Non-patient / Non-visit RECORDS AND INFORMATION MANAGER-C S tacey Isaias RECORDS AND INFORMATION MANAGER Work Phone: [facility] Start: 10-07-2023 End: 10-20-2023 ambulatory RECORDS AND INFORMATION MANAGER-C Barbra E Isaias RECORDS AND INFORMATION MANAGER Work Phone: [facility] Work Phone: Start: 10-07-2023 End: 10-20-2023 Discharged Recurring RECORDS AND INFORMATION MANAGER-C Barbra Isiaas RECORDS AND INFORMATION MANAGER Work Phone: [facility] Work Phone: Start: 09-23-2023 Non-patient / Non-visit RECORDS AND INFORMATION MANAGER-C S tacey Isaias RECORDS AND INFORMATION MANAGER Work Phone: [facility] Start: 08-19-2023 Non-patient / Non-visit RECORDS AND INFORMATION MANAGER-C S tacey Isaias RECORDS AND INFORMATION MANAGER Work Phone: [facility] Start: 08-19-2023 End: 08-20-2023 ambulatory RECORDS AND INFORMATION MANAGER-C Barbra E Isaias RECORDS AND INFORMATION MANAGER Work Phone: [facility] Work Phone: Start: 08-19-2023 End: 08-20-2023 Discharged Recurring RECORDS AND INFORMATION MANAGER-C Barbra Isaias RECORDS AND INFORMATION MANAGER Work Phone: [facility] Work Phone: Start: 07-29-2023 Non-patient / Non-visit RECORDS AND INFORMATION MANAGER-C S tacey Isaias RECORDS AND INFORMATION MANAGER Work Phone: [facility] Start: 07-01-2023 Non-patient / Non-visit RECORDS AND INFORMATION MANAGER-C S tacey Isaias RECORDS AND INFORMATION MANAGER Work Phone: [facility] Start: 07-01-2023 End: 07-20-2023 ambulatory RECORDS AND INFORMATION MANAGER-C Barbra E Isaias RECORDS AND INFORMATION MANAGER Work Phone: [facility] Work Phone: Start: 07-01-2023 End: 07-20-2023 Discharged Recurring RECORDS AND INFORMATION MANAGER-C Barbra Isaias RECORDS AND INFORMATION MANAGER Work Phone: [facility] Work Phone: Start: 06-03-2023 Non-patient / Non-visit RECORDS AND INFORMATION MANAGER-C S westley Isaias RECORDS AND INFORMATION MANAGER Work Phone: [facility] Start: 06-03-2023 End: 06-20-2023 ambulatory RECORDS AND INFORMATION MANAGER-C Barbra E Isaias RECORDS AND INFORMATION MANAGER Work Phone: [facility] Work Phone: Start: 06-03-2023 End: 06-20-2023 Discharged Recurring RECORDS AND INFORMATION MANAGER-C Barbra Isaias RECORDS AND INFORMATION MANAGER Work Phone: [facility] Work Phone: Start: 05-06-2023 Non-patient / Non-visit RECORDS AND INFORMATION MANAGER-C S westley Whaleyndell RECORDS AND INFORMATION MANAGER Work Phone: [facility] Start: 05-06-2023 End: 05-20-2023 ambulatory RECORDS AND INFORMATION MANAGER-C Barbra E Isaias RECORDS AND INFORMATION MANAGER Work Phone: [facility] Work Phone: Start: 05-06-2023 End: 05-20-2023 Discharged Recurring RECORDS AND INFORMATION MANAGER-C Barbrashellie WhaleyIsaias RECORDS AND INFORMATION MANAGER Work Phone: [facility] Work Phone: Start: 04-08-2023 Non-patient / Non-visit RECORDS AND INFORMATION MANAGER-C S tacejoyce WhaleyIsaias RECORDS AND INFORMATION MANAGER Work Phone: [facility] Start: 04-08-2023 End: 04-19-2023 Discharged Recurring RECORDS AND INFORMATION MANAGER-C Barbra Isaias RECORDS AND INFORMATION MANAGER Work Phone: [facility] Work Phone: Start: 03-28-2023 End: 03-28-2023 Patient encounter procedure RECORDS AND INFORMATION MANAGER-C Barbra Isaias RECORDS AND INFORMATION MANAGER Work Phone: [facility] Work Phone: Start: 03-25-2023 Non-patient / Non-visit RECORDS AND INFORMATION MANAGER-C S westley Martiniell RECORDS AND INFORMATION MANAGER Work Phone: [facility] Start: 03-19-2023 End: 03-19-2023 ambulatory RECORDS AND INFORMATION MANAGER-C Barbra So WhaleyIsaias RECORDS AND INFORMATION MANAGER Work Phone: [facility] Work Phone: Start: 03-19-2023 End: 03-19-2023 Patient encounter procedure RECORDS AND INFORMATION MANAGER-C Barbrashellie Martiniell RECORDS AND INFORMATION MANAGER Work Phone: [facility] Start: 02-25-2023 Non-patient / Non-visit RECORDS AND INFORMATION MANAGER-C S westley Martiniell RECORDS AND INFORMATION MANAGER Work Phone: [facility] Start: 02-25-2023 End: 03-20-2023 ambulatory RECORDS AND INFORMATION MANAGER-C Barbra So WhaleyIsaias RECORDS AND INFORMATION MANAGER Work Phone: [facility] Work Phone: Start: 02-25-2023 End: 03-20-2023 Discharged Recurring RECORDS AND INFORMATION MANAGER-C Barbrashellie Martiniell RECORDS AND INFORMATION MANAGER [facility] Start: 02-11-2023 End: 02-11-2023 ambulatory RECORDS AND INFORMATION MANAGER-C Barbra So WhaleyIsaias RECORDS AND INFORMATION MANAGER Work Phone: [facility] Work Phone: Start: 02-11-2023 End: 02-11-2023 Patient encounter procedure RECORDS AND INFORMATION MANAGER-C Barbra Isaias RECORDS AND INFORMATION MANAGER Work Phone: [facility] Start: 01-28-2023 Non-patient / Non-visit RECORDS AND INFORMATION MANAGER-C S tacejoyce WhaleyIsaias RECORDS AND INFORMATION MANAGER Work Phone: [facility] Start: 01-28-2023 End: 02-17-2023 ambulatory RECORDS AND INFORMATION MANAGER-C Barbra E Isaias RECORDS AND INFORMATION MANAGER Work Phone: [facility] Work Phone: Start: 01-28-2023 End: 02-17-2023 Discharged Recurring RECORDS AND INFORMATION MANAGER-C Barbrashellie WhaleyIsaias RECORDS AND INFORMATION MANAGER Work Phone: [facility] Start: 01-28-2023 Registered Recurring RECORDS AND INFORMATION MANAGER-C Elc criselda WhaleyIsaias RECORDS AND INFORMATION MANAGER Work Phone: [facility] Start: 01-06-2023 End: 01-06-2023 Emergency department patient visit RECORDS AND INFORMATION MANAGER-C Barbrashellie WhaleyIsaias RECORDS AND INFORMATION MANAGER [facility] Start: 12-10-2022 Non-patient / Non-visit RECORDS AND INFORMATION MANAGER-C S tacejoyce WhaleyIsaias RECORDS AND INFORMATION MANAGER Work Phone: [facility] Start: 12-10-2022 End: 12-18-2022 Discharged Recurring RECORDS AND INFORMATION MANAGER-C Barbrashellie WhaleyIsaias RECORDS AND INFORMATION MANAGER Work Phone: [facility] Start: 11-19-2022 Non-patient / Non-visit RECORDS AND INFORMATION MANAGER-C S tacejoyce WhaleyIsaias RECORDS AND INFORMATION MANAGER Work Phone: [facility] Start: 11-19-2022 End: 11-20-2022 ambulatory RECORDS AND INFORMATION MANAGER-C Barbrashellie Whaleyndell RECORDS AND INFORMATION MANAGER Work Phone: [facility] Work Phone: Start: 11-19-2022 End: 11-20-2022 Discharged Recurring RECORDS AND INFORMATION MANAGER-C Barbrashellie WhaleyIsaias RECORDS AND INFORMATION MANAGER Work Phone: [facility] Start: 10-24-2022 Non-patient / Non-visit RECORDS AND INFORMATION MANAGER-C S tacejoyce WhaleyIsaias RECORDS AND INFORMATION MANAGER Work Phone: [facility] Start: 10-16-2022 End: 10-16-2022 Emergency department patient visit RECORDS AND INFORMATION MANAGER-C Barbra Isaias RECORDS AND INFORMATION MANAGER Work Phone: [facility] Start: 10-01-2022 Non-patient / Non-visit RECORDS AND INFORMATION MANAGER-C S tacey Isaias RECORDS AND INFORMATION MANAGER Work Phone: [facility] Start: 10-01-2022 End: 10-20-2022 ambulatory RECORDS AND INFORMATION MANAGER-C Barbra So Isaias RECORDS AND INFORMATION MANAGER Work Phone: [facility] Work Phone: Start: 10-01-2022 End: 10-20-2022 Discharged Recurring RECORDS AND INFORMATION MANAGER-C Barbra Isaias RECORDS AND INFORMATION MANAGER Work Phone: [facility] Start: 10-01-2022 Registered Recurring RECORDS AND INFORMATION MANAGER-C Elrohini Martiniell RECORDS AND INFORMATION MANAGER Work Phone: [facility] Start: 09-03-2022 Non-patient / Non-visit RECORDS AND INFORMATION MANAGER-C S gonzalezjoyce Isaias RECORDS AND INFORMATION MANAGER Work Phone: [facility] Start: 09-03-2022 End: 09-19-2022 ambulatory RECORDS AND INFORMATION MANAGER-C Barbra So Isaias RECORDS AND INFORMATION MANAGER Work Phone: [facility] Work Phone: Start: 09-03-2022 End: 09-19-2022 Discharged Recurring RECORDS AND INFORMATION MANAGER-C Barbra Whaleyndell RECORDS AND INFORMATION MANAGER Work Phone: [facility] Start: 08-13-2022 Non-patient / Non-visit RECORDS AND INFORMATION MANAGER-C S gonzalezjoyce WhaleyIsaias RECORDS AND INFORMATION MANAGER Work Phone: [facility] Start: 08-13-2022 End: 08-20-2022 ambulatory RECORDS AND INFORMATION MANAGER-C Barbrashellie Whaleyndell RECORDS AND INFORMATION MANAGER Work Phone: [facility] Work Phone: Start: 08-13-2022 End: 08-20-2022 Discharged Recurring RECORDS AND INFORMATION MANAGER-C Barbra Whaleyndell RECORDS AND INFORMATION MANAGER Work Phone: [facility] Start: 07-23-2022 Non-patient / Non-visit RECORDS AND INFORMATION MANAGER-C S westley Martiniell RECORDS AND INFORMATION MANAGER Work Phone: [facility] Start: 07-02-2022 Non-patient / Non-visit Dr. Laurence Mcintyre Work Phone: [facility] Start: 07-02-2022 End: 07-20-[address] Jennie Mcintyre Work Phone: [facility] Work Phone: Start: 07-02-2022 End: 07-20-[address] Jennie Mcintyre Work Phone: [facility] Start: 06-11-2022 Non-patient / Non-visit RECORDS AND INFORMATION MANAGER-C S westley Esparza RECORDS AND INFORMATION MANAGER Work Phone: [facility] Start: 06-11-2022 End: 06-20-2022 ambulatory RECORDS AND INFORMATION MANAGER-C Barbra E Isaias RECORDS AND INFORMATION MANAGER Work Phone: [facility] Work Phone: Start: 06-11-2022 End: 06-20-2022 Discharged Recurring RECORDS AND INFORMATION MANAGER-C Barbra Isaias RECORDS AND INFORMATION MANAGER Work Phone: [facility] Start: 05-21-2022 Non-patient / Non-visit RECORDS AND INFORMATION MANAGER-C S tacey Isaias RECORDS AND INFORMATION MANAGER Work Phone: [facility] Start: 04-30-2022 Non-patient / Non-visit Dr. Laurence Mcintyre Work Phone: [facility] Start: 04-30-2022 End: 05-20-[address] Jennie Mcintyre Work Phone: [facility] Start: 04-09-2022 Non-patient / Non-visit RECORDS AND INFORMATION MANAGER-C S tacejoyce WhaleyIsaias RECORDS AND INFORMATION MANAGER Work Phone: [facility] Start: 04-09-2022 End: 04-19-2022 Discharged Recurring RECORDS AND INFORMATION MANAGER-C Barbra Isaias RECORDS AND INFORMATION MANAGER [facility] Start: 03-27-2022 End: 03-27-2022 Patient encounter procedure RECORDS AND INFORMATION MANAGER-Rohini Esparza RECORDS AND INFORMATION MANAGER Work Phone: [facility] Start: 03-12-2022 Non-patient / Non-visit Dr. Jose Fulton Work Phone: [facility] Start: 03-12-2022 End: 03-20-[address] Modesto Fulton Work Phone: [facility] Start: 03-05-[address] Modesto Fulton Work Phone: [facility] Start: 03-05-2022 End: 03-05-[address] Modesto Fulton Work Phone: [facility] Start: 02-28-2022 End: 02-28-[address] Modesto Fulton Work Phone: [facility] Start: 02-26-2022 Non-patient / Non-visit Dr. Jose Fulton Work Phone: [facility] Start: 02-26-[address] Modesto Fulton Work Phone: [facility] Start: 02-12-2022 Non-patient / Non-visit Dr. Jose Fulton Work Phone: [facility] Start: 02-12-2022 End: 02-17-[address] Modesto Fulton Work Phone: [facility] Start: 01-29-2022 Non-patient / Non-visit Dr. Jose Fulton Work Phone: [facility] Start: 01-22-2022 Non-patient / Non-visit Dr. Jose Fulton Work Phone: [facility] Start: 01-21-2022 Non-patient / Non-visit Dr. Jose Fulton Work Phone: [facility] Start: 01-20-2022 Non-patient / Non-visit Dr. Jose Fulton Work Phone: [facility] Start: 01-20-2022 Non-patient / Non-visit Dr. Jose Fulton Work Phone: [facility] Start: 01-19-2022 Non-patient / Non-visit Dr. Jose Fulton Work Phone: [facility] Start: 01-19-2022 End: 01-22-2022 Evaluation and management of inpatient Dr. Modesto Fulton Work Phone: [facility] Start: 01-17-2022 End: 01-17-[address] Modesto Fulton Work Phone: [facility] Start: 01-15-2022 Non-patient / Non-visit Dr. Jose Fulton Work Phone: [facility] Start: 01-15-2022 End: 01-18-[address] Modesto Fulton [facility] Phone[facility] Start: 01-01-2022 Non-patient / Non-visit Dr. Jose Fulton Work Phone: [facility] Start: 12-18-2021 Non-patient / Non-visit Dr. Jose Fulton Work Phone: [facility] Start: 12-18-2021 End: 12-18-[address] Modesto Fulton Work Phone: [facility] Start: 12-12-2021 End: 12-12-[address] Modesto Fulton Work Phone: [facility] Start: 12-04-2021 Non-patient / Non-visit Dr. Jose Fulton Work Phone: [facility] Start: 11-20-2021 Non-patient / Non-visit Dr. Jose Fulton Work Phone: [facility] Start: 11-20-2021 End: 11-20-[address] Modesto Fulton Work Phone: [facility] Start: 10-30-2021 Non-patient / Non-visit Dr. Jose Fulton Work Phone: [facility] Start: 10-30-[address] Modesto Fulton Work Phone: [facility] Start: 10-30-2021 End: 10-30-[address] Modesto Fulton Work Phone: [facility] Start: 10-12-2021 Non-patient / Non-visit Dr. Jose Fulton Work Phone: [facility] Start: 10-11-2021 Non-patient / Non-visit Dr. Jose Fulton Work Phone: [facility] Start: 10-10-2021 Non-patient / Non-visit Dr. Jose Fulton Work Phone: [facility] Start: 10-09-2021 Non-patient / Non-visit Dr. Jose Fulton Work Phone: [facility] Start: 10-08-2021 Non-patient / Non-visit Dr. Jose Fulton Work Phone: [facility] Start: 10-07-2021 End: 10-12-2021 Evaluation and management of inpatient Dr. Modesto Fulton Work Phone: [facility] Start: 09-25-2021 Non-patient / Non-visit Dr. Jose Fulton Work Phone: [facility] Start: 09-25-2021 End: 10-20-[address] Modesto Fulton Work Phone: [facility] Procedures Date Procedure Procedure Detail Performing Clinician Start: 04-07-[address] Jennie Mcintyre MD Work Phone: Start: 04-07-2025 Gram stain microscopy D coty Mcintyre MD Work Phone: Start: 04-07-2025 End: 04-07-2025 Microbial culture, routine Dr. Jennie prescott MD Work Phone: Start: 01-30-2025 Urinalysis ZAYNAB Gwyn ADAME Comment on above: Result Comment: URIN ALYSIS Performed By: #### [id number] #### [place] [id number] Start: 11-04-[address] Jennie Mcintyre MD Work Phone: Start: 11-04-2024 Gram stain microscopy Gwyn Mcintyre MD Work Phone: Start: 11-04-2024 Microbial culture, routine Dr. Jennie Mcintyre MD Work Phone: Start: 09-25-2024 Urinalysis ZAYNAB D WENDI Comment on above: Result Comment: URIN ALYSIS Performed By: #### [id number] #### [facility],[address] [place] [address] Start: 07-29-2023 Anaerobic microbial culture RECORDS AND INFORMATION MANAGER-C Barbra Isaias RECORDS AND INFORMATION MANAGER Work Phone: Start: 07-29-2023 Investigation of transfusion reaction RECORDS AND INFORMATION MANAGER-C Barbra Isaias RECORDS AND INFORMATION MANAGER Work Phone: Start: 07-29-2023 Microbial culture, routine RECORDS AND INFORMATION MANAGER-C Barbra Isaias RECORDS AND INFORMATION MANAGER Work Phone: Start: 07-29-2023 Urine culture RECORDS AND INFORMATION MANAGER-C Elc criselda Martiniell RECORDS AND INFORMATION MANAGER Work Phone: Start: 03-25-2023 Anaerobic microbial culture RECORDS AND INFORMATION MANAGER-C Barbra Whaleyndell RECORDS AND INFORMATION MANAGER Work Phone: Start: 03-25-2023 Investigation of transfusion reaction RECORDS AND INFORMATION MANAGER-C Barbra Isaias RECORDS AND INFORMATION MANAGER Work Phone: Start: 03-25-2023 Microbial culture, routine RECORDS AND INFORMATION MANAGER-C Barbra Wahleyndell RECORDS AND INFORMATION MANAGER Work Phone: Start: 03-19-2023 CT of head without contrast RECORDS AND INFORMATION MANAGER-C Barbra Whaleyndell RECORDS AND INFORMATION MANAGER Work Phone: Start: 02-11-2023 US urinary tract RECORDS AND INFORMATION MANAGER-C S westley Whaleyndell RECORDS AND INFORMATION MANAGER Work Phone: Start: 01-06-2023 Plain chest X-ray RECORDS AND INFORMATION MANAGER-C Barbra Whaleyndell RECORDS AND INFORMATION MANAGER Work Phone: Start: 02-28-2022 MRI of brain with contrast Dr. Modesto Fulton Work Phone: Start: 01-19-2022 Computed tomography of abdomen and pelvis with intravenous contrast Dr. Modesto Fulton Work Phone: Start: 01-19-2022 End: 01-19-[address] Modesto Fulton Work Phone: Start: 01-19-[address] Ingrid Fulton Work Phone: Start: 01-19-2022 End: 01-19-2022 [address]va [address] parasites identification Dr. Modesto Fulton Work Phone: Start: 10-11-2021 MRI of brain with contrast Dr. Modesto Fulton Work Phone: Start: 10-08-2021 MRI of brain with contrast Dr. Modesto Fulton Work Phone: Start: 10-07-[address] Modesto Fulton Work Phone: Start: 10-07-2021 Bacteria Detection (PCR) Dr. Modesto Fulton Work Phone: Start: 10-07-2021 Bacteria identified in Blood by Culture Dr. Modesto Fulton Work Phone: Start: 10-07-2021 Investigation of transfusion reaction Dr. Modesto Fulton Work Phone: Start: 10-07-2021 Microbial culture, routine Dr. Modesto Fulton Work Phone: Start: 10-07-[address] Modesto Fulton Work Phone: Start: 10-07-2021 Plain chest X-ray Dr. Junior Fulton Work Phone: Start: 10-07-2021 CT angiography of he ad and neck Dr. Modesto Fulton Work Phone: Start: 09-12-2021 PET/CT Tumor Base -T high Subs Dr. Modesto Fulton Work Phone: Bacteria identified in Blood by Culture RECORDS AND INFORMATION MANAGER-C Barbra Isaias RECORDS AND INFORMATION MANAGER Work Phone: Bacteria identified in Urine by Culture RECORDS AND INFORMATION MANAGER-C Barbra Isaias RECORDS AND INFORMATION MANAGER Work Phone: History of radiation therapy History of radiation therapy Dr. Modesto Fulton Work Phone: Ova OR parasites identification RECORDS AND INFORMATION MANAGER-C Barbra Isaias RECORDS AND INFORMATION MANAGER Work Phone: SARS-CoV-2 & FLU Ant igen (Rapid) RECORDS AND INFORMATION MANAGER-C Barbra Isaias RECORDS AND INFORMATION MANAGER Work Phone: SARS-CoV-2 & FLU Ant igen (Rapid) RECORDS AND INFORMATION MANAGER-C Barbra Isaias RECORDS AND INFORMATION MANAGER Work Phone: SARS-CoV-2 & FLU Ant igen (Rapid) RECORDS AND INFORMATION MANAGER-C Barbra Isaias RECORDS AND INFORMATION MANAGER Work Phone: Urine culture RECORDS AND INFORMATION MANAGER-C Barbra Sw indell RECORDS AND INFORMATION MANAGER Work Phone: Urine culture RECORDS AND INFORMATION MANAGER-C Barbra Sw indell RECORDS AND INFORMATION MANAGER Work Phone: Plan of Treatment Date Care Activity Detail Author Start: 12-23-2024 Anes transurethral w/urethrocystoscopy nos ANESTH BLADDER SURGERY [facility] Start: 12-23-2024 Litholapaxy comp/lg > 2.5 cm REMOVE BLADDER STONE [facility] Start: 12-23-2024 Ambulation without limitation [facility] Start: 12-23-2024 Medication education [facility] Start: 12-23-2024 Patient discharge [facility] Start: 12-23-2024 Taking patient vital signs [facility] Start: 12-23-2024 [facility] Start: 01-06-2023 [facility] Start: 10-16-2022 [facility] Work Phone: Start: 10-16-2022 End: 10-16-2022 Blood culture [facility] Work Phone: Start: 01-22-2022 Patient discharge [facility] Work Phone: Start: 01-21-2022 Care planning and problem solving actions [facility] Work Phone: Start: 01-21-2022 [facility] Work Phone: Start: 01-20-2022 Referral to service [facility] Work Phone: Start: 01-20-2022 Contact precautions [facility] Work Phone: Start: 01-20-2022 Following clinical pathway protocol [facility] Work Phone: Start: 01-20-2022 Assessment of risk of venous thromboembolism [facility] Work Phone: Start: 01-20-2022 Consultation for treatment [facility] Work Phone: Start: 01-20-2022 Inhalation therapy procedure [facility] Work Phone: Start: 01-20-2022 Insertion of catheter into peripheral vein [facility] Work Phone: Start: 01-20-2022 Oxygen therapy [facility] Work Phone: Start: 01-20-2022 Providing care according to standard [facility] Work Phone: Start: 01-20-2022 Provision of activity privileges [facility] Work Phone: Start: 01-20-2022 Referral to gastroenterology service [facility] Work Phone: Start: 01-20-2022 Wound care [facility] Work Phone: Start: 01-20-2022 [facility] Work Phone: Start: 01-20-2022 Patient referral to dietitian [facility] Work Phone: Start: 01-19-2022 Admission procedure [facility] Work Phone: Start: 01-19-2022 Enteric precautions [facility] Work Phone: Start: 01-19-2022 Ova and Parasites Ova and Parasites [facility] Work Phone: Start: 10-30-2021 Patient referral [facility] Work Phone: Bacteria identified in Blood by Culture Blood Culture [facility] Work Phone: Bacteria identified in Urine by Culture Urine Culture [facility] Work Phone: Blood culture [facility] Work Phone: CT Unspecified body region contrast [facility] Work Phone: CT Unspecified body region [facility] MR Brain WO and W co ntrast IV [facility] Work Phone: Patient Education [facility] Work Phone: Patient referral [facility] Work Phone: Payers Date Payer Category Payer Unknown [id number] 2024 Self-pay [id number] 2024 Unknown [id number] [facility] [id number] 1945 Unknown [id number] 2.16.8 [id number] 1945 Unknown [id number] 2.16.8 [id number] 1945 Unknown [id number] 2.16.8 [id number] 1945 Unknown [id number] 2.16.8 [id number] 1945 Unknown [id number] 2.16.8 [id number] 1945 Unknown [id number] 2.16.8 [id number] Unknown [id number] Unknown [id number] 2.16.8 [id number] Unknown [id number] 2.16.8 [id number] Unknown [id number] 2.16.8 [id number] Unknown [id number] 2.16.8 [id number] Unknown [id number] 2.16.8 [id number] Unknown [id number] 2.16.8 [id number] Unknown [id number] 2.16.8 [id number] Unknown [id number] 2.16.8 [id number] Unknown [id number] 2.16.8 [id number] Unknown [id number] 2.16.8 [id number] Unknown [id number] 2.16.8 [id number] Unknown [id number] 2.16.8 [id number] Unknown [id number] 2.16.8 [id number] Unknown 72-1 Social History Date Type Detail Facility Start: 01-17-2022 End: 03-28-2023 Tobacco smoking status NHIS Unknown if ever smoked [facility] Start: 1945 Sex Assigned At Female [facility] Start: 12-09-2024 Tobacco smoking status NHIS Never smoked tobacco (finding) [facility] Start: 01-19-2025 Sex Female (finding) [facility] NEGATED: Highlighted row Not [facility] Medical Equipment Procedure Code Equipment Code Equipment Original Text Equipment Identifier Dates Laparoscopic-assisted sigmoidectomy 45mm Standard Reload FDA Start: 06-06-2021 Laparoscopic-assisted sigmoidectomy 45mm Standard Reload FDA Start: 06-06-2021 Laparoscopic-assisted sigmoidectomy 45mm Standard Reload FDA Start: 06-06-2021 Laparoscopic-assisted sigmoidectomy 45mm Standard Reload FDA Start: 06-06-2021 Laparoscopic-assisted sigmoidectomy 45mm Standard Reload FDA Start: 06-06-2021 Laparoscopic-assisted sigmoidectomy 45mm Standard Reload FDA Start: 06-06-2021 Laparoscopic-assisted sigmoidectomy 45mm Standard Reload FDA Start: 06-06-2021 Laparoscopic-assisted sigmoidectomy 45mm Standard Reload FDA Start: 06-06-2021 Laparoscopic-assisted sigmoidectomy 45mm Standard Reload FDA Start: 06-06-2021 Laparoscopic-assisted sigmoidectomy 45mm Standard Reload FDA Start: 06-06-2021 Laparoscopic-assisted sigmoidectomy 45mm Standard Reload FDA Start: 06-06-2021 Laparoscopic-assisted sigmoidectomy 45mm Standard Reload FDA Start: 06-06-2021 Laparoscopic-assisted sigmoidectomy 45mm Standard Reload FDA Start: 06-06-2021 Laparoscopic-assisted sigmoidectomy 45mm Standard Reload FDA Start: 06-06-2021 Laparoscopic-assisted sigmoidectomy 45mm Standard Reload FDA Start: 06-06-2021 Laparoscopic-assisted sigmoidectomy 45mm Standard Reload FDA Start: 06-06-2021 Laparoscopic-assisted sigmoidectomy 45mm Standard Reload FDA Start: 06-06-2021 Laparoscopic-assisted sigmoidectomy 45mm Standard Reload FDA Start: 06-06-2021 Laparoscopic-assisted sigmoidectomy 45mm Standard Reload FDA Start: 06-06-2021 Laparoscopic-assisted sigmoidectomy 45mm Standard Reload FDA Start: 06-06-2021 Laparoscopic-assisted sigmoidectomy 45mm Standard Reload FDA Start: 06-06-2021 Laparoscopic-assisted sigmoidectomy 45mm Standard Reload FDA Start: 06-06-2021 Laparoscopic-assisted sigmoidectomy 45mm Standard Reload FDA Start: 06-06-2021 Laparoscopic-assisted sigmoidectomy 45mm Standard Reload FDA Start: 06-06-2021 Laparoscopic-assisted sigmoidectomy 45mm Standard Reload FDA Start: 06-06-2021 Laparoscopic-assisted sigmoidectomy 45mm Standard Reload FDA Start: 06-06-2021 Laparoscopic-assisted sigmoidectomy 45mm Standard Reload FDA Start: 06-06-2021 Laparoscopic-assisted sigmoidectomy 45mm Standard Reload FDA Start: 06-06-2021 Laparoscopic-assisted sigmoidectomy 45mm Standard Reload FDA Start: 06-06-2021 Laparoscopic-assisted sigmoidectomy 45mm Standard Reload FDA Start: 06-06-2021 Laparoscopic-assisted sigmoidectomy 45mm Standard Reload FDA Start: 06-06-2021 Laparoscopic-assisted sigmoidectomy 45mm Standard Reload FDA Start: 06-06-2021 Laparoscopic-assisted sigmoidectomy 45mm Standard Reload FDA Start: 06-06-2021 Laparoscopic-assisted sigmoidectomy 45mm Standard Reload FDA Start: 06-06-2021 Laparoscopic-assisted sigmoidectomy 45mm Standard Reload FDA Start: 06-06-2021 Laparoscopic-assisted sigmoidectomy 45mm Standard Reload FDA Start: 06-06-2021 Laparoscopic-assisted sigmoidectomy 45mm Standard Reload FDA Start: 06-06-2021 Laparoscopic-assisted sigmoidectomy 45mm Standard Reload FDA Start: 06-06-2021 Laparoscopic-assisted sigmoidectomy 45mm Standard Reload FDA Start: 06-06-2021 Laparoscopic-assisted sigmoidectomy 45mm Standard Reload FDA Start: 06-06-2021 Laparoscopic-assisted sigmoidectomy 45mm Standard Reload FDA Start: 06-06-2021 Laparoscopic-assisted sigmoidectomy 45mm Standard Reload FDA Start: 06-06-2021 Laparoscopic-assisted sigmoidectomy 45mm Standard Reload FDA Start: 06-06-2021 Laparoscopic-assisted sigmoidectomy 45mm Standard Reload FDA Start: 06-06-2021 Laparoscopic-assisted sigmoidectomy 45mm Standard Reload FDA Start: 06-06-2021 Laparoscopic-assisted sigmoidectomy 45mm Standard Reload FDA Start: 06-06-2021 Laparoscopic-assisted sigmoidectomy 45mm Standard Reload FDA Start: 06-06-2021 Laparoscopic-assisted sigmoidectomy 45mm Standard Reload FDA Start: 06-06-2021 Laparoscopic-assisted sigmoidectomy 45mm Standard Reload FDA Start: 06-06-2021 Laparoscopic-assisted sigmoidectomy 45mm Standard Reload FDA Start: 06-06-2021 Laparoscopic-assisted sigmoidectomy 45mm Standard Reload FDA Start: 06-06-2021 Laparoscopic-assisted sigmoidectomy 45mm Standard Reload FDA Start: 06-06-2021 Laparoscopic-assisted sigmoidectomy 45mm Standard Reload FDA Start: 06-06-2021 Laparoscopic-assisted sigmoidectomy 45mm Standard Reload FDA Start: 06-06-2021 Laparoscopic-assisted sigmoidectomy 45mm Standard Reload FDA Start: 06-06-2021 Laparoscopic-assisted sigmoidectomy 45mm Standard Reload FDA Start: 06-06-2021 Laparoscopic-assisted sigmoidectomy 45mm Standard Reload FDA Start: 06-06-2021 Laparoscopic-assisted sigmoidectomy 45mm Standard Reload FDA Start: 06-06-2021 Laparoscopic-assisted sigmoidectomy 45mm Standard Reload FDA Start: 06-06-2021 Laparoscopic-assisted sigmoidectomy 45mm Standard Reload FDA Start: 06-06-2021 Laparoscopic-assisted sigmoidectomy 45mm Standard Reload FDA Start: 06-06-2021 Laparoscopic-assisted sigmoidectomy 45mm Standard Reload FDA Start: 06-06-2021 Laparoscopic-assisted sigmoidectomy 45mm Standard Reload FDA Start: 06-06-2021 Laparoscopic-assisted sigmoidectomy 45mm Standard Reload FDA Start: 06-06-2021 Laparoscopic-assisted sigmoidectomy 45mm Standard Reload FDA Start: 06-06-2021 Laparoscopic-assisted sigmoidectomy 45mm Standard Reload FDA Start: 06-06-2021 Laparoscopic-assisted sigmoidectomy 45mm Standard Reload FDA Start: 06-06-2021 Laparoscopic-assisted sigmoidectomy 45mm Standard Reload FDA Start: 06-06-2021 Laparoscopic-assisted sigmoidectomy 45mm Standard Reload FDA Start: 06-06-2021 Laparoscopic-assisted sigmoidectomy 45mm Standard Reload FDA Start: 06-06-2021 Laparoscopic-assisted sigmoidectomy 45mm Standard Reload FDA Start: 06-06-2021 Laparoscopic-assisted sigmoidectomy 45mm Standard Reload FDA Start: 06-06-2021 Laparoscopic-assisted sigmoidectomy 45mm Standard Reload FDA Start: 06-06-2021 Laparoscopic-assisted sigmoidectomy 45mm Standard Reload FDA Start: 06-06-2021 Laparoscopic-assisted sigmoidectomy 45mm Standard Reload FDA Start: 06-06-2021 Laparoscopic-assisted sigmoidectomy 45mm Standard Reload FDA Start: 06-06-2021 Laparoscopic-assisted sigmoidectomy 45mm Standard Reload FDA Start: 06-06-2021 Laparoscopic-assisted sigmoidectomy 45mm Standard Reload FDA Start: 06-06-2021 Laparoscopic-assisted sigmoidectomy 45mm Standard Reload FDA Start: 06-06-2021 Laparoscopic-assisted sigmoidectomy 45mm Standard Reload FDA Start: 06-06-2021 Laparoscopic-assisted sigmoidectomy 45mm Standard Reload FDA Start: 06-06-2021 Laparoscopic-assisted sigmoidectomy 45mm Standard Reload FDA Start: 06-06-2021 Laparoscopic-assisted sigmoidectomy 45mm Standard Reload FDA Start: 06-06-2021 Laparoscopic-assisted sigmoidectomy 45mm Standard Reload FDA Start: 06-06-2021 Laparoscopic-assisted sigmoidectomy 45mm Standard Reload FDA Start: 06-06-2021 Laparoscopic-assisted sigmoidectomy 45mm Standard Reload FDA Start: 06-06-2021 Laparoscopic-assisted sigmoidectomy 45mm Standard Reload FDA Start: 06-06-2021 Laparoscopic-assisted sigmoidectomy 45mm Standard Reload FDA Start: 06-06-2021 Laparoscopic-assisted sigmoidectomy 45mm Standard Reload FDA Start: 06-06-2021 Laparoscopic-assisted sigmoidectomy 45mm Standard Reload FDA Start: 06-06-2021 Laparoscopic-assisted sigmoidectomy 45mm Standard Reload FDA Start: 06-06-2021 Laparoscopic-assisted sigmoidectomy 45mm Standard Reload FDA Start: 06-06-2021 Laparoscopic-assisted sigmoidectomy 45mm Standard Reload FDA Start: 06-06-2021 Laparoscopic-assisted sigmoidectomy 45mm Standard Reload FDA Start: 06-06-2021 Laparoscopic-assisted sigmoidectomy 45mm Standard Reload FDA Start: 06-06-2021 Laparoscopic-assisted sigmoidectomy 45mm Standard Reload FDA Start: 06-06-2021 Laparoscopic-assisted sigmoidectomy 45mm Standard Reload FDA Start: 06-06-2021 Laparoscopic-assisted sigmoidectomy 45mm Standard Reload FDA Start: 06-06-2021 Laparoscopic-assisted sigmoidectomy 45mm Standard Reload FDA Start: 06-06-2021 Laparoscopic-assisted sigmoidectomy 45mm Standard Reload FDA Start: 06-06-2021 Laparoscopic-assisted sigmoidectomy 45mm Standard Reload FDA Start: 06-06-2021 Laparoscopic-assisted sigmoidectomy 45mm Standard Reload FDA Start: 06-06-2021 Laparoscopic-assisted sigmoidectomy 45mm Standard Reload FDA Start: 06-06-2021 Laparoscopic-assisted sigmoidectomy 45mm Standard Reload FDA Start: 06-06-2021 Laparoscopic-assisted sigmoidectomy 45mm Standard Reload FDA Start: 06-06-2021 Laparoscopic-assisted sigmoidectomy 45mm Standard Reload FDA Start: 06-06-2021 Laparoscopic-assisted sigmoidectomy 45mm Standard Reload FDA Start: 06-06-2021 Laparoscopic-assisted sigmoidectomy 45mm Standard Reload FDA Start: 06-06-2021 Laparoscopic-assisted sigmoidectomy 45mm Standard Reload FDA Start: 06-06-2021 Laparoscopic-assisted sigmoidectomy 45mm Standard Reload FDA Start: 06-06-2021 Laparoscopic-assisted sigmoidectomy 45mm Standard Reload FDA Start: 06-06-2021 Laparoscopic-assisted sigmoidectomy 45mm Standard Reload FDA Start: 06-06-2021 Laparoscopic-assisted sigmoidectomy 45mm Standard Reload FDA Start: 06-06-2021 Laparoscopic-assisted sigmoidectomy 45mm Standard Reload FDA Start: 06-06-2021 Laparoscopic-assisted sigmoidectomy 45mm Standard Reload FDA Start: 06-06-2021 Laparoscopic-assisted sigmoidectomy 45mm Standard Reload FDA Start: 06-06-2021 Laparoscopic-assisted sigmoidectomy 45mm Standard Reload FDA Start: 06-06-2021 Laparoscopic-assisted sigmoidectomy 45mm Standard Reload FDA Start: 06-06-2021 Laparoscopic-assisted sigmoidectomy 45mm Standard Reload FDA Start: 06-06-2021 Laparoscopic-assisted sigmoidectomy 45mm Standard Reload FDA Start: 06-06-2021 Goals Date Patient Goal Desired Activity /State Functional Status Date Assessment Result Facility 01-22-2022 Functional status Activity Abili ty With Assist of 2 [facility] Work Phone: 01-21-2022 Functional status Bedrest [facility] Work Phone: 10-12-2021 Functional status Bedrest [facility] Work Phone: Mental Status Date Assessment Result Facility 12-23-2024 Cognitive function Light [facility] Work Phone: 01-06-2023 Cognitive function Level Of Cons ciousness Awake;Alert;Appropriate [facility] Work Phone: 10-16-2022 Cognitive function Level Of Cons ciousness Awake;Alert;Appropriate;Follow s Commands [facility] Work Phone: 01-22-2022 Cognitive function Appropriate;Cooperativ e [facility] Work Phone: 10-12-2021 Cognitive function Voice/Name [facility] Work Phone: Clinical Notes 04-07-2021 to 05-19-2025 Note Date & Type Note Facility 05-19-2025 History and physi deana note Note Date/Time May 19, 2025 8:23pm [facility] [address] [place] [address] H&P Exam - Wound Care 05/19/252010 MR#: [id number] Acct: [id number] Name: CHRISTOPHER CORONEL Rep #:[id number] : 1945 79 From: Oscar Pascal PCP: Dr. Jennie Mcintyre MD Status:R EG RCR Location: History of Present Illness Date of Service: 05/18/25 Chief Complaint: Left ischial pressure ulceration, stage III History of Wound: This is an 79-year-old female, formerly cared for at the [facility] by a provider who has transferred to another facility. 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 She had progressive paraplegia. She went to TCU for acute rehab for this progressive paraplegia. During that time she had worsening sacral pressure sore with skin necrosis. Surgery 05/15/21 - Excision necrotic sacral pressure sore, Stage IV, with partialostectomy for osteomyelitis. Pathology from surgery on 05/15/21 of bone showed acute osteomyelitis. Operative culture, soft tissue, from 05/15/21 was positive for Escherichia coli,Klebsiella, Vanc. Resist. E. gallinarum, Vanc. Resist. E. faecalis. Operative culture, bone, from 05/15/21 was positive for Escherichia coli, Vanc. Resist. E. faecalis, Vanc. Resist. E. gallinarum. She was treated with Meropenem and Vancomycin. Linezolid was started after Vancomycin was stopped. Radiation from 05/17/21 - 06/12/21 18 treatments to T4-T7 area including paraspinal region. 06/06/21- Laparoscopic sigmoid colectomy with creation of end colostomy for fecaldiversion. She healed out her ulcers November 2023. She states that she was having issues with her urinary catheter leaking which then caused skin breakdown on her left ischial area a little before [place]. They have been using dressing supplies that they had left over (Dakin's, selena, aquacel-ag). They thought there mightbe some improvement in the ulcer, but now that it has been almost a month, they came back for further evaluation and treatment. Wound culture from 11/04/24 positive for Staphylococcus haemolyticus, Staphylococcus epidermidis, Escherichia coli, Corynebacterium striatum, and Cutibacterium acnes and she was treated with Levaquin and Linezolid. The patient denies a history of congestive heart failure, cerebrovascular accident, diabetes mellitus, thyroid disease, pulmonary disease, and renal disease. She has suffered a myocardial infarction in the past, and has had coronary revascularization performed in 2018. She is on long-term systemic anticoagulation with warfarin. [facility] Medical History MRSA (methicillin resistant Staphylococcus aureus) infection Pressure ulcer of ischium, stage 3 Chronic anticoagulation History of echocardiogram Wears glasses Wears dentures Uses wheelchair Indwelling urethral catheter present Anemia Non-smoker History of edema Cardiology follow-up encounter Pressure ulcer COVID-19 Decubitus ulcer of left ischium, stage 2 Pressure ulcer of right ischium MCI (mild cognitive impairment) Adrenal disorder Decubitus ulcer of left ischium, stage 4 Chronic indwelling Gutierrez catheter Hypertension Pressure sore UTI (urinary tract infection) Adynamic ileus Abdominal pain History of radiation therapy Neuropathic pain Diffuse large B cell lymphoma Paraplegia Debility Pressure ulcer of sacral region, stage 4 Osteomyelitis of pelvis Myocardial infarct Afib Pressure ulcer of sacral region, unstageable Diffuse large B-cell lymphoma Paraplegia Home Medications ?Medication ?Instructions ?Recorded ?Last Taken ?Type losartan 100 mg tablet 50 mg PO DAILY HEART 1 12/23/24 History amiodarone 200 mg tablet 200 mg PO DAILY@1400 HEART 0 12/12/21 Unknown History gabapentin 100 mg capsule 100 mg PO BID 12/12/2112/23 History metoprolol succinate 50 mg 25 mg PO DAILY BP 12/12/21 12/23/24 History tablet,extended release 24 hr Lactobacillus acidophilus 10 10,000 mmu cells PO DAILY @1400 01/19/22 Unknown History billion cell capsule (Probiotic) supplement atorvastatin 40 mg tablet 40 mg PO QHS cholesterol 12/12 Unknown History MINGXIA RED 1 tsp PO DAILY 12/09/24 Unkn own History sennosides 8.6 mg capsule (senna) 17.2 mg PO QHS 12/09 Unknown History warfarin 2 mg tablet 2 mg PO DAILY 12/09/2412/17 History nystatin 100,000 unit/gram topical 1 applic topical BI D 10 days #30 01/20/25 Unknown Rx cream grams sulfamethoxazole 800 1 tab PO Q12H Pressure Ulcer #20 04/10/25 Unknown Rx mg-trimethoprim 160 mg tablet tabs (Bactrim DS) linezolid 600 mg tablet 600 mg PO Q12H Wound Infecti on #20 04/14/25 Unknown Rx tabs linezolid 600 mg tablet 600 mg PO Q12H Wound infecti on #20 04/14/25 Unknown Rx tabs Allergy/AdvReac Type Severity Reaction Status Date / Time prednisone Allergy Intermediate atrial Verified 12/23/24 07:52 fibrillation Family History Father CHF (congestive heart failure) Myocardial infarction Mother CAD (coronary artery disease) Alzheimer disease Surgical History History of colectomy H/O Spinal surgery History of cholecystectomy S/P excisional debridement S/P cholecystectomy Hx of CABG Social History household members: family housing: house number of children: 5 Smoking Status: Never smoker alcohol intake: never substance use type: does not use what type of physical activity do you participate in: other details: leg therapy/hand weights frequency: 5-6 times per week chris/pentecostalism: Buddhist Physical Exam Const alert, oriented x3, no apparent distress and average body habitus Constitutional Narrative: The patient's BMI is 25.1. General Appearance: cooperative, comfortable and well developed Orientation / Consciousness: awake, oriented to person, oriented to place and oriented to time HEENT normocephalic and head/scalp atraumatic Head and Scalp: normal to inspection, normocephalic and atraumatic Face and Sinus: normal facial exam Nose: external nose normal External Ear: external ears normal Eyes EOMs intact bilaterally General Eye: normal appearance of both eyes Neck full ROM Resp normal respiratory effort, normal air movement, no retractions and no use of accessory muscles Effort and Inspection: able to speak in complete sentences GI GI Narrative: The patient has a functional colostomy. Bladder / Kidney Exam: catheter in place Extremity Extremity Narrative: Upper extremities have full ROM. Paralyzed. Skin Wound Narrative: The pressure ulceration in the left ischial region is now completely healed and epithelialized. There is no sign of infection, cellulitis, or fluctuance. Neuro oriented x3 and CN's II-XII intact bilaterally Neuro Narrative: The patient is paraplegic. Sensorium / Orientation: awake, alert, oriented to person, oriented to place andoriented to time Speech: speech normal Psych mental status grossly normal, thought process normal and cooperative Appearance: appropriate Debridement Note Debridement Note No debridement was completed: No debridement was completed today (There are no open wounds or ulcerations.) Post-Debridement Measurements and Additional Note: Post-Debridement Measurements/Treatment WC - Nurse 1 - General Ulcer Assessment Start: 04/27/25 13:23 Freq: Status: Active Protocol: NICOLAS.LOWEXT Activity Type Activity Date Activity User E-sign Co-sign Detail Recorded Client Recorded Date Recorded By Document 04/27/25 13:23 [facility] [id number] 04/27/25 13:25 [facility] Document 05/18/25 11:07 [facility] [id number] 05/18/25 11:10 [facility] 04/27/25 05/18/25 13:23 11:07 - Today's Visit Information Type of service Follow-up Visit Follow-up Visit (Physician/MANAGER OF PLANNING (Physician/MANAGER OF PLANNING ) ) Arrival Mode Wheelchair Wheelchair Transfer Assistance Will Lift Will Lift Transfer Assist (Other) 3 Accompanied by daughter and and val Patient Identification Verified (Name & Yes Yes ) Patient Requires Transmission-Based No No Precautions Vital Signs Temperature (97.8 F-99.1 F) 97.4 F L 97.7 F L Temperature Source Temporal Temporal Pulse Rate (60-100) 58 L 53 L Pulse Location Monitor Monitor Respiratory Rate (12-18) 16 16 Respiratory rate source Observation Ventilator Oxygen Delivery Method Room Air Room Air Blood Pressure (90/60-120/80) 148/74 H 148/72 H Blood Pressure Mean 98 97 Source Monitor Monitor Position Sitting Sitting Blood Pressure Location Right Arm Left Arm History Since Last Visit- (Skip if this is Patient's initial visit) Have you changed medications since your No No last visit? Any new allergies or adverse reactions No No Had a fall/change in ADL's that may No No increase risk of falls Signs or symptoms of abuse and/or No No neglect since last visit Have you been in the hospital since your No No last visit? Has dressing in place as prescribed Yes Yes Has compression in place as prescribed N/A N/A Has offloadiing in place as prescribed N/A N/A Experienced any changes in pain level or No No management Left Footwear Slipper Slipper Right Footwear Slipper Slipper Pain Scale: 0-10 Numeric Is Patient Pain Free? Yes Yes - Nurse 1 - General Ulcer Measurement Start: 04/27/25 13:23 Freq: Status: Active Protocol: Activity Type Activity Date Activity User E-sign Co-sign Detail Recorded Client Recorded Date Recorded By Document 04/27/25 13:23 [facility] [id number] 04/27/25 13:25 [facility] Document 05/18/25 11:07 [facility] [id number] 05/18/25 11:10 [facility] 04/27/25 05/18/25 13:23 11:07 Wound Center Nurse 1 #4 l iSCHIAL -Combined with other wound No No -Current Size (cm) - Length 0.4 0.1 -Current Size (cm) - Width 0.5 0.1 -Current Size (cm) - Depth 0.1 0.1 -Total Square Cm 0.20 0.01 -Date of Last Picture (Recall this 04/27/25 05/18/25 field) -Photo Taken Yes Yes -Epithelialization Small 1-33% Large 67-100% -Tunneling No No -Undermining/Tunneling No No -Circular Undermining No No -Exudate Amt Medium None Present -Exudate Type Serosanguineous -Wound Margin Flat & Intact -Granulation Amt Large (67-100%) -Granulation Quality Red -Slough/Fibrin No -Necrosis Amt Small (1-33%) -Necrotic Tissue Type Adherent Slough -Texture (Laney-wound Skin Appearance) Assessed, Assessed, Scarring Scarring -Moisture (Laney-wound Skin Appearance) Assessed,Dry/ Assessed,Dry/ Scaly Scaly -Color (Laney-wound Skin Appearance) Assessed Assessed -Temperature (Laney-wound Skin No Abnormality No Abnormality Appearance) (Pt Warm) (Pt Warm) -Tenderness on Palpation (Laney-wound No No Skin Appearance) -Ulcer Cleansing Rinsed/ Soap and Water Irrigated with Saline -Foul Odor after Cleansing No No -Anesthetic Used 5% Lidocaine Gel WC - Nurse 2 - General Ulcer CM Notes Start: 04/27/25 13:23 Freq: Status: Active Protocol: Activity Type Activity Date Activity User E-sign Co-sign Detail Recorded Client Recorded Date Recorded By Document 04/27/25 13:36 DS [id number] 04/27/25 13:41 DS Document 05/18/25 11:41 DS [id number] 05/18/25 11:42 DS 04/27/25 05/18/25 13:36 11:41 Wound Center Nurse 2 #4 l iSCHIAL -Time 13:36 11:41 -Correct Patient Yes Yes -Correct Side, Site, Position Yes Yes -Procedure Performed No No -Post Debridement (cm) - Length 0.6 -Post Debridement (cm) - Width 0.5 -Post Debridement (cm) - Depth 0.1 -Total Square (Post) (cm) 0.30 -Area of Debridement (cm) - Length 0.5 -Area of Debridement (cm) - Width 0.6 -Total Square (Area) (cm) 0.30 -Tunneling No -Undermining/Tunneling No -Circular Undermining No -Wound/Ulcer Outcome Not Healed Healed- Epithelialized Pain Scale: 0-10 Numeric Is Patient Pain Free? Yes Yes - Nurse 3 - General Ulcer D/C NN Start: 04/27/25 13:23 Freq: Status: Active Protocol: Activity Type Activity Date Activity User E-sign Co-sign Detail Recorded Client Recorded Date Recorded By Document 04/27/25 13:53 KW [id number] 04/27/25 13:53 KW Document 05/18/25 11:50 [facility] [id number] 05/18/25 11:51 BM 04/27/25 05/18/25 13:53 11:50 Wound Care Center Nurse 3 #4 l iSCHIAL -Primary Dressing Applied Fibracol Plus 4x4,Silicone Border Foam 4x4 -Other Dressing sample border foam drsg per jf rn -Fibracol Plus 4x4 1 -Silicone Border Foam 4x4 1 Treatment Response Procedure Tolerated Well Pain Scale: 0-10 Numeric Is Patient Pain Free? Yes Yes - Visit Discharge Discharge Condition Stable Stable Ambulatory Status Wheelchair Wheelchair Transportation Private Auto Private Auto Accompanied by and daughter Medication Reconcilliation completed & No provided to patient/care provider Clinical Summary of Care Provided Yes Charges/Coding Visit Charges Office Visits / Consults: 43462 OV L3 Est 20min Assessment/Plan Assessment/Plan (1) 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, stage 3: CODE(S): L89.323 - Pressure ulcer of left buttock, stage 3 (2) Pressure ulcer of ischium, stage 3: CODE(S): L89.303 - Pressure ulcer of unspecified buttock, stage 3 QUALIFIERS: Laterality: left Qualified Code(s): L89.323 - Pressure ulcer of left buttock, stage 3 (3) Paraplegia: CODE(S): G82.20 - Paraplegia, unspecified (4) Large B-cell lymphoma: CODE(S): C85.10 - Unspecified B-cell lymphoma, unspecified site (5) Chronic indwelling Gutierrez catheter: CODE(S): Z97.8 - Presence of other specified devices (6) Non-smoker: CODE(S): Z78.9 - Other specified health status (7) Hypertension: CODE(S): I10 - Essential (primary) hypertension (8) Debility: CODE(S): R53.81 - Other malaise (9) Myocardial infarct: CODE(S): I21.9 - Acute myocardial infarction, unspecified (10) Afib: CODE(S): I48.91 - Unspecified atrial fibrillation (11) Diffuse large B-cell lymphoma: CODE(S): C83.30 - Diffuse large B-cell lymphoma, unspecified site QUALIFIERS: Lymphoma site: extranodal excluding spleen and other solid organs Qualified Code(s): C83.39 - Diffuse large B-cell lymphoma, extranodal and solid organ sites (12) Chronic anticoagulation: 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 As of today's visit, the ischial pressure ulceration is completely healed and epithelialized. Therefore, the patient is to be discharged, and will follow-up henceforth on an as-needed basis. The patient and her family have been advised to continue with offloadingmeasures. Good Gutierrez catheter maintenance has been advised to avoid moisture inthe patient's undergarments adjacent to the ischial regions. Additionally, theyhave been advised to continue with a healthy diet and nutritional supplements asneeded. The patient has a Roho cushion and an air mattress, and frequent repositioning has been recommended. Total time: 22 minutes 05/19/252022 <Electronically signed by Oscar Steele MD> Cosigner Signature (if applicable): CC: ~ Signed [facility] Work Phone: 1(489) 254-441507-30-2025 History and physical note [facility] [address] [place] [address] H&P Exam - Wound Care 05/19/252010 MR#: [id number] Acct: [id number] Name: CHRISTOPHER CORONEL Rep #:[id number] : 1945 79 From: Oscar Pascal PCP: Dr. Jennie Mcintyre MD Status:R EG RCR Location: History of Present Illness Date of Service: 05/18/25 Chief Complaint: Left ischial pressure ulceration, stage III History of Wound: This is an 79-year-old female, formerly cared for at the [facility] by a provider who has transferred to another facility. 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 She had progressive paraplegia. She went to TCU for acute rehab for this progressive paraplegia. During that time she had worsening sacral pressure sore with skin necrosis. Surgery 05/15/21 - Excision necrotic sacral pressure sore, Stage IV, with partialostectomy for osteomyelitis. Pathology from surgery on 05/15/21 of bone showed acute osteomyelitis. Operative culture, soft tissue, from 05/15/21 was positive for Escherichia coli,Klebsiella, Vanc. Resist. E. gallinarum, Vanc. Resist. E. faecalis. Operative culture, bone, from 05/15/21 was positive for Escherichia coli, Vanc. Resist. E. faecalis,Vanc. Resist. E. gallinarum. She was treated with Meropenem and Vancomycin. Linezolid was started after Vancomycin was stopped. Radiation from 05/17/21 - 06/12/21 18 treatments to T4-T7 area including paraspinal region. 06/06/21- Laparoscopic sigmoid colectomy with creation of end colostomy for fecaldiversion. She healed out her ulcers November 2023. She states that she was having issues with her urinary catheter leaking which then caused skin breakdown on her left ischial area a little before [place]. They have been using dressing supplies that they had left over (Dakin's, selena, aquacel-ag). They thought there mightbe some improvement in the ulcer, but now that it has been almost a month, they came back for further evaluation and treatment. Wound culture from 11/04/24 positive for Staphylococcus haemolyticus, Staphylococcus epidermidis, Escherichia coli, Corynebacterium striatum, and Cutibacterium acnes and she was treated with Levaquin and Linezolid. The patient denies a history of congestive heart failure, cerebrovascular accident, diabetes mellitus, thyroid disease, pulmonary disease, and renal disease. She has suffered a myocardial infarction in the past, and has had coronary revascularization performed in 2018. She is on long-term systemic a nticoagulation with warfarin. [facility] Medical History MRSA (methicillin resistant Staphylococcus aureus) infection Pressure ulcer of ischium, stage 3 Chronic anticoagulation History of echocardiogram Wears glasses Wears dentures Uses wheelchair Indwelling urethral catheter present Anemia Non-smoker History of edema Cardiology follow-up encounter Pressure ulcer COVID-19 Decubitus ulcer of left ischium, stage 2 Pressure ulcer of right ischium MCI (mild cognitive impairment) Adrenal disorder Decubitus ulcer of left ischium, stage 4 Chronic indwelling Gutierrez catheter Hypertension Pressure sore UTI (urinary tract infection) Adynamic ileus Abdominal pain History of radiation therapy Neuropathic pain Diffuse large B cell lymphoma Paraplegia Debility Pressure ulcer of sacral region, stage 4 Osteomyelitis of pelvis Myocardial infarct Afib Pressure ulcer of sacral region, unstageable Diffuse large B-cell lymphoma Paraplegia Home Medications ?Medication ?Instructions ?Recorded ?Last Taken ?Type losartan 100 mg tablet 50 mg PO DAILY HEART 1 12/23/24 History amiodarone 200 mg tablet 200 mg PO DAILY@1400 HEART 0 12/12/21 Unknown History gabapentin 100 mg capsule 100 mg PO BID 12/12/2112/23 History metoprolol succinate 50 mg 25 mg PO DAILY BP 12/12/21 12/23/24 History tablet,extended release 24 hr Lactobacillus acidophilus 10 10,000 mmu cells PO DAILY @1400 01/19/22 Unknown History billion cell capsule (Probiotic) supplement atorvastatin 40 mg tablet 40 mg PO QHS cholesterol 12/12 Unknown History MINGXIA RED 1 tsp PO DAILY 12/09/24 Unkn own History sennosides 8.6 mg capsule (senna) 17.2 mg PO QHS 12/09 Unknown History warfarin 2 mg tablet 2 mg PO DAILY 12/09/2412/17 History nystatin 100,000 unit/gram topical 1 applic topical BI D 10 days #30 01/20/25 Unknown Rx cream grams sulfamethoxazole 800 1 tab PO Q12H Pressure Ulcer #20 04/10/25 Unknown Rx mg-trimethoprim 160 mg tablet tabs (Bactrim DS) linezolid 600 mg tablet 600 mg PO Q12H Wound Infecti on #20 04/14/25 Unknown Rx tabs linezolid 600 mg tablet 600 mg PO Q12H Wound infecti on #20 04/14/25 Unknown Rx tabs Allergy/AdvReac Type Severity Reaction Status Date / Time prednisone Allergy Intermediate atrial Verified 12/23/24 07:52 fibrillation Family History Father CHF (congestive heart failure) Myocardial infarction Mother CAD (coronary artery disease) Alzheimer disease Surgical History History of colectomy H/O Spinal surgery History of cholecystectomy S/P excisional debridement S/P cholecystectomy Hx of CABG Social History household members: family housing: house number of children: 5 Smoking Status: Never smoker alcohol intake: never substance use type: does not use what type of physical activity do you participate in: other details: leg therapy/hand weights frequency: 5-6 times per week chris/pentecostalism: Buddhist Physical Exam Const alert, oriented x3, no apparent distress and average body habitus Constitutional Narrative: The patient's BMI is 25.1. General Appearance: cooperative, comfortable and well developed Orientation / Consciousness: awake, oriented to person, oriented to place and oriented to time HEENT normocephalic and head/scalp atraumatic Head and Scalp: normal to inspection, normocephalic and atraumatic Face and Sinus: normal facial exam Nose: external nose normal External Ear: external ears normal Eyes EOMs intact bilaterally General Eye: normal appearance of both eyes Neck full ROM Resp normal respiratory effort, normal air movement, no retractions and no use of accessory muscles Effort and Inspection: able to speak in complete sentences GI GI Narrative: The patient has a functional colostomy. Bladder / Kidney Exam: catheter in place Extremity Extremity Narrative: Upper extremities have full ROM. Paralyzed. Skin Wound Narrative: The pressure ulceration in the left ischial region is now completely healed and epithelialized. There is no sign of infection, cellulitis, or fluctuance. Neuro oriented x3 and CN's II-XII intact bilaterally Neuro Narrative: The patient is paraplegic. Sensorium / Orientation: awake, alert, oriented to person, oriented to place andoriented to time Speech: speech normal Psych mental status grossly normal, thought process normal and cooperative Appearance: appropriate Debridement Note Debridement Note No debridement was completed: No debridement was completed today (There are no open wounds or ulcerations.) Post-Debridement Measurements and Additional Note: Post-Debridement Measurements/Treatment - Nurse 1 - General Ulcer Assessment Start: 04/27/25 13:23 Freq: Status: Active Protocol: KRANTHI Activity Type Activity Date Activity User E-sign Co-sign Detail Recorded Client Recorded Date Recorded By Document 04/27/25 13:23 [facility] [id number] 04/27/25 13:25 BM Document 05/18/25 11:07 [facility] [id number] 05/18/25 11:10 [facility] 04/27/25 05/18/25 13:23 11:07 - Today's Visit Information Type of service Follow-up Visit Follow-up Visit (Physician/MANAGER OF PLANNING (Physician/MANAGER OF PLANNING ) ) Arrival Mode Wheelchair Wheelchair Transfer Assistance Will Lift Will Lift Transfer Assist (Other) 3 Accompanied by daughter and and val Patient Identification Verified (Name & Yes Yes ) Patient Requires Transmission-Based No No Precautions Vital Signs Temperature (97.8 F-99.1 F) 97.4 F L 97.7 F L Temperature Source Temporal Temporal Pulse Rate (60-100) 58 L 53 L Pulse Location Monitor Monitor Respiratory Rate (12-18) 16 16 Respiratory rate source Observation Ventilator Oxygen Delivery Method Room Air Room Air Blood Pressure (90/60-120/80) 148/74 H 148/72 H Blood Pressure Mean 98 97 Source Monitor Monitor Position Sitting Sitting Blood Pressure Location Right Arm Left Arm History Since Last Visit- (Skip if this is Patient's initial visit) Have you changed medications since your No No last visit? Any new allergies or adverse reactions No No Had a fall/change in ADL's that may No No increase risk of falls Signs or symptoms of abuse and/or No No neglect since last visit Have you been in the hospital since your No No last visit? Has dressing in place as prescribed Yes Yes Has compression in place as prescribed N/A N/A Has offloadiing in place as prescribed N/A N/A Experienced any changes in pain level or No No management Left Footwear Slipper Slipper Right Footwear Slipper Slipper Pain Scale: 0-10 Numeric Is Patient Pain Free? Yes Yes WC - Nurse 1 - General Ulcer Measurement Start: 04/27/25 13:23 Freq: Status: Active Protocol: Activity Type Activity Date Activity User E-sign Co-sign Detail Recorded Client Recorded Date Recorded By Document 04/27/25 13:23 BM [id number] 04/27/25 13:25 [facility] Document 05/18/25 11:07 [facility] [id number] 05/18/25 11:10 [facility] 04/27/25 05/18/25 13:23 11:07 Wound Center Nurse 1 #4 l iSCHIAL -Combined with other wound No No -Current Size (cm) - Length 0.4 0.1 -Current Size (cm) - Width 0.5 0.1 -Current Size (cm) - Depth 0.1 0.1 -Total Square Cm 0.20 0.01 -Date of Last Picture (Recall this 04/27/25 05/18/25 field) -Photo Taken Yes Yes -Epithelialization Small 1-33% Large 67-100% -Tunneling No No -Undermining/Tunneling No No -Circular Undermining No No -Exudate Amt Medium None Present -Exudate Type Serosanguineous -Wound Margin Flat & Intact -Granulation Amt Large (67-100%) -Granulation Quality Red -Slough/Fibrin No -Necrosis Amt Small (1-33%) -Necrotic Tissue Type Adherent Slough -Texture (Laney-wound Skin Appearance) Assessed, Assessed, Scarring Scarring -Moisture (Laney-wound Skin Appearance) Assessed,Dry/ Assessed,Dry/ Scaly Scaly -Color (Laney-wound Skin Appearance) Assessed Assessed -Temperature (Laney-wound Skin No Abnormality No Abnormality Appearance) (Pt Warm) (Pt Warm) -Tenderness on Palpation (Laney-wound No No Skin Appearance) -Ulcer Cleansing Rinsed/ Soap and Water Irrigated with Saline -Foul Odor after Cleansing No No -Anesthetic Used 5% Lidocaine Gel WC - Nurse 2 - General Ulcer CM Notes Start: 04/27/25 13:23 Freq: Status: Active Protocol: Activity Type Activity Date Activity User E-sign Co-sign Detail Recorded Client Recorded Date Recorded By Document 04/27/25 13:36 DS [id number] 04/27/25 13:41 DS Document 05/18/25 11:41 DS [id number] 05/18/25 11:42 DS 04/27/25 05/18/25 13:36 11:41 Wound Center Nurse 2 #4 l iSCHIAL -Time 13:36 11:41 -Correct Patient Yes Yes -Correct Side, Site, Position Yes Yes -Procedure Performed No No -Post Debridement (cm) - Length 0.6 -Post Debridement (cm) - Width 0.5 -Post Debridement (cm) - Depth 0.1 -Total Square (Post) (cm) 0.30 -Area of Debridement (cm) - Length 0.5 -Area of Debridement (cm) - Width 0.6 -Total Square (Area) (cm) 0.30 -Tunneling No -Undermining/Tunneling No -Circular Undermining No -Wound/Ulcer Outcome Not Healed Healed- Epithelialized Pain Scale: 0-10 Numeric Is Patient Pain Free? Yes Yes - Nurse 3 - General Ulcer D/C NN Start: 04/27/25 13:23 Freq: Status: Active Protocol: Activity Type Activity Date Activity User E-sign Co-sign Detail Recorded Client Recorded Date Recorded By Document 04/27/25 13:53 [id number] 04/27/25 13:53 Document 05/18/25 11:50 [facility] [id number] 05/18/25 11:51 [facility] 04/27/25 05/18/25 13:53 11:50 Wound Care Center Nurse 3 #4 l iSCHIAL -Primary Dressing Applied Fibracol Plus 4x4,Silicone Border Foam 4x4 -Other Dressing sample border foam drsg per ben rn -Fibracol Plus 4x4 1 -Silicone Border Foam 4x4 1 Treatment Response Procedure Tolerated Well Pain Scale: 0-10 Numeric Is Patient Pain Free? Yes Yes - Visit Discharge Discharge Condition Stable Stable Ambulatory Status Wheelchair Wheelchair Transportation Private Auto Private Auto Accompanied by and daughter Medication Reconcilliation completed & No provided to patient/care provider Clinical Summary of Care Provided Yes Charges/Coding Visit Charges Office Visits / Consults: 05998 OV L3 Est 20min Assessment/Plan Assessment/Plan (1) 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, stage 3: CODE(S): L89.323 - Pressure ulcer of left buttock, stage 3 (2) Pressure ulcer of ischium, stage 3: CODE(S): L89.303 - Pressure ulcer of unspecified buttock, stage 3 QUALIFIERS: Laterality: left Qualified Code(s): L89.323 - Pressure ulcer of left buttock, stage 3 (3) Paraplegia: CODE(S): G82.20 - Paraplegia, unspecified (4) Large B-cell lymphoma: CODE(S): C85.10 - Unspecified B-cell lymphoma, unspecified site (5) Chronic indwelling Gutierrez catheter: CODE(S): Z97.8 - Presence of other specified devices (6) Non-smoker: CODE(S): Z78.9 - Other specified health status (7) Hypertension: CODE(S): I10 - Essential (primary) hypertension (8) Debility: CODE(S): R53.81 - Other malaise (9) Myocardial infarct: CODE(S): I21.9 - Acute myocardial infarction, unspecified (10) Afib: CODE(S): I48.91 - Unspecified atrial fibrillation (11) Diffuse large B-cell lymphoma: CODE(S): C83.30 - Diffuse large B-cell lymphoma, unspecified site QUALIFIERS: Lymphoma site: extranodal excluding spleen and other solid organs Qualified Code(s): C83.39 - Diffuse large B-cell lymphoma, extranodal and solid organ sites (12) Chronic anticoagulation: CODE(S): Z79.01 - longterm (current) use of anticoagulants PLAN: Plan This is an 79-year-old paraplegic female who presented with a stage III pressureulceration overlying the left ischium. As of today's visit, the ischial pressure ulceration is completely healed and epithelialized. Therefore, the patient is to be discharged, and will follow-up henceforth on an as-needed basis. The patient and her family have been advised to continue with offloadingmeasures. Good Gutierrez catheter maintenance has been advised to avoid moisture inthe patient's undergarments adjacent to the ischial regions. Additionally, theyhave been advised to continue with a healthy diet and nutrit ional supplements asneeded. The patient has a Roho cushion and an air mattress, and frequent repositioning has been recommended. Total time: 22 minutes 05/19/252022 Cosigner Signature (if applicable): CC: ~ Signed [facility]07-12-2025 History and physical note Author Oscar Steele [facility] Note Date/Time May 01, 2025 5:38 pm [facility] [address] [place] [address] H&P Exam - Wound Care 05/01/25 1722 MR#: [id number] Acct: [id number] Name: CHRISTOPHER CORONEL Rep #:[id number] : 1945 79 From: Oscar Pascal PCP: Dr. Jennie Mcintyre MD Status:R EG RCR Location: History of Present Illness Date of Service: 04/27/25 Chief Complaint: Left ischial pressure ulceration, stage III History of Wound: This is an 79-year-old female, formerly cared for at the [facility] by a provider who has transferred to another facility. 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 She had progressive paraplegia. She went to TCU for acute rehab for this progressive paraplegia. During that time she had worsening sacral pressure sore with skin necrosis. Surgery 05/15/21 - Excision necrotic sacral pressure sore, Stage IV, with partialostectomy for osteomyelitis. Pathology from surgery on 05/15/21 of bone showed acute osteomyelitis. Operative culture, soft tissue, from 05/15/21 was positive for Escherichia coli,Klebsiella, Vanc. Resist. E. gallinarum, Vanc. Resist. E. faecalis. Operative culture, bone, from 05/15/21 was positive for Escherichia coli, Vanc. Resist. E. faecalis, Vanc. Resist. E. gallinarum. She was treated with Meropenem and Vancomycin. Linezolid was started after Vancomycin was stopped. Radiation from 05/17/21 - 06/12/21 18 treatments to T4-T7 area including paraspinal region. 06/06/21- Laparoscopic sigmoid colectomy with creation of end colostomy for fecaldiversion. She healed out her ulcers November 2023. She states that she was having issues with her urinary catheter leaking which then caused skin breakdown on her left ischial area a little before [place]. They have been using dressing supplies that they had left over (Dakin's, selena, aquacel-ag). They thought there mightbe some improvement in the ulcer, but now that it has been almost a month, they came back for further evaluation and treatment. Wound culture from 11/04/24 positive for Staphylococcus haemolyticus, Staphylococcus epidermidis, Escherichia coli, Corynebacterium striatum, and Cutibacterium acnes and she was treated with Levaquin and Linezolid. The patient denies a history of congestive heart failure, cerebrovascular accident, diabetes mellitus, thyroid disease, pulmonary disease, and renal disease. She has suffered a myocardial infarction in the past, and has had coronary revascularization performed in 2018. She is on long-term systemic anticoagulation with warfarin. [facility] Medical History MRSA (methicillin resistant Staphylococcus aureus) infection Pressure ulcer of ischium, stage 3 Chronic anticoagulation History of echocardiogram Wears glasses Wears dentures Uses wheelchair Indwelling urethral catheter present Anemia Non-smoker History of edema Cardiology follow-up encounter Pressure ulcer COVID-19 Decubitus ulcer of left ischium, stage 2 Pressure ulcer of right ischium MCI (mild cognitive impairment) Adrenal disorder Decubitus ulcer of left ischium, stage 4 Chronic indwelling Gutierrez catheter Hypertension Pressure sore UTI (urinary tract infection) Adynamic ileus Abdominal pain History of radiation therapy Neuropathic pain Diffuse large B cell lymphoma Paraplegia Debility Pressure ulcer of sacral region, stage 4 Osteomyelitis of pelvis Myocardial infarct Afib Pressure ulcer of sacral region, unstageable Diffuse large B-cell lymphoma Paraplegia Home Medications ?Medication ?Instructions ?Recorded ?Last Taken ?Type losartan 100 mg tablet 50 mg PO DAILY HEART 10/07/2 1 12/23/24 History amiodarone 200 mg tablet 200 mg PO DAILY@1400 HEART 0 12/12/21 Unknown History gabapentin 100 mg capsule 100 mg PO BID 12/12/2112/23 History metoprolol succinate 50 mg 25 mg PO DAILY BP 12/12/21 12/23/24 History tablet,extended release 24 hr Lactobacillus acidophilus 10 10,000 mmu cells PO DAILY @1400 01/19/22 Unknown History billion cell capsule (Probiotic) supplement atorvastatin 40 mg tablet 40 mg PO QHS cholesterol 12/12 Unknown History MINGXIA RED 1 tsp PO DAILY 12/09/24 Unkn own History sennosides 8.6 mg capsule (senna) 17.2 mg PO QHS 12/09 Unknown History warfarin 2 mg tablet 2 mg PO DAILY 12/09/2412/17 History nystatin 100,000 unit/gram topical 1 applic topical BI D 10 days #30 01/20/25 Unknown Rx cream grams sulfamethoxazole 800 1 tab PO Q12H Pressure Ulcer #20 04/10/25 Unknown Rx mg-trimethoprim 160 mg tablet tabs (Bactrim DS) linezolid 600 mg tablet 600 mg PO Q12H Wound Infecti on #20 04/14/25 Unknown Rx tabs linezolid 600 mg tablet 600 mg PO Q12H Wound infecti on #04/14/25 Unknown Rx tabs Allergy/AdvReac Type Severity Reaction Status Date / Time prednisone Allergy Intermediate atrial Verified 12/23/24 07:52 fibrillation Family History Father CHF (congestive heart failure) Myocardial infarction Mother CAD (coronary artery disease) Alzheimer disease Surgical History History of colectomy H/O Spinal surgery History of cholecystectomy S/P excisional debridement S/P cholecystectomy Hx of CABG Social History household members: family housing: house number of children: 5 Smoking Status: Never smoker alcohol intake: never substance use type: does not use what type of physical activity do you participate in: other details: leg therapy/hand weights frequency: 5-6 times per week chris/pentecostalism: Buddhist Physical Exam Const alert, oriented x3, no apparent distress and average body habitus Constitutional Narrative: The patient's BMI is 25.1. General Appearance: cooperative, comfortable and well developed Orientation / Consciousness: awake, oriented to person, oriented to place and oriented to time HEENT normocephalic and head/scalp atraumatic Head and Scalp: normal to inspection, normocephalic and atraumatic Face and Sinus: normal facial exam Nose: external nose normal External Ear: external ears normal Eyes EOMs intact bilaterally General Eye: normal appearance of both eyes Neck full ROM Resp normal respiratory effort, normal air movement, no retractions and no use of accessory muscles Effort and Inspection: able to speak in complete sentences GI GI Narrative: The patient has a functional colostomy. Bladder / Kidney Exam: catheter in place Extremity Extremity Narrative: Upper extremities have full ROM. Paralyzed. Skin Wound Narrative: A pressure ulceration is noted on the left ischial region. It is full-thickness, through all layers of the dermis and into the subcutaneous tissues. This is a stage III pressure ulceration. Ulcer margins are well beveled. Dimensions are documented elsewhere. It appears to be slightly smaller. It is generally pink and healthy, with active granulation tissue. There is a small amount of bioburden and nonviable tissue. The laney-ulcer skin is erythematous, macerated, and excoriated. Neuro oriented x3 and CN's II-XII intact bilaterally Neuro Narrative: The patient is paraplegic. Sensorium / Orientation: awake, alert, oriented to person, oriented to place andoriented to time Speech: speech normal Psych mental status grossly normal, thought process normal and cooperative Appearance: appropriate Debridement Note Debridement Note No debridement was completed: No debridement was completed today Post-Debridement Measurements and Additional Note: Post-Debridement Measurements/Treatment - Nurse 1 - General Ulcer Assessment Start: 04/27/25 13:23 Freq: Status: Active Protocol: KRANTHI Activity Type Activity Date Activity User E-sign Co-sign Detail Recorded Client Recorded Date Recorded By Document 04/27/25 13:23 [facility] [id number] 04/27/25 13:25 [facility] 04/27/25 13:23 - Today's Visit Information Type of service Follow-up Visit (Physician/MANAGER OF PLANNING ) Arrival Mode Wheelchair Transfer Assistance Will Lift Transfer Assist (Other) 3 Accompanied by daughter and Patient Identification Verified (Name & Yes ) Patient Requires Transmission-Based No Precautions Vital Signs Temperature (97.8 F-99.1 F) 97.4 F L Temperature Source Temporal Pulse Rate (60-100) 58 L Pulse Location Monitor Respiratory Rate (12-18) 16 Respiratory rate source Observation Oxygen Delivery Method Room Air Blood Pressure (90/60-120/80) 148/74 H Blood Pressure Mean 98 Source Monitor Position Sitting Blood Pressure Location Right Arm History Since Last Visit- (Skip if this is Patient's initial visit) Have you changed medications since your No last visit? Any new allergies or adverse reactions No Had a fall/change in ADL's that may No increase risk of falls Signs or symptoms of abuse and/or No neglect since last visit Have you been in the hospital since your No last visit? Has dressing in place as prescribed Yes Has compression in place as prescribed N/A Has offloadiing in place as prescribed N/A Experienced any changes in pain level or No management Left Footwear Slipper Right Footwear Slipper Pain Scale: 0-10 Numeric Is Patient Pain Free? Yes WC - Nurse 1 - General Ulcer Measurement Start: 04/27/25 13:23 Freq: Status: Active Protocol: Activity Type Activity Date Activity User E-sign Co-sign Detail Recorded Client Recorded Date Recorded By Document 04/27/25 13:23 ANDRE [id number] 04/27/25 13:25 BM 04/27/25 13:23 Wound Center Nurse 1 #4 l iSCHIAL -Combined with other wound No -Current Size (cm) - Length 0.4 -Current Size (cm) - Width 0.5 -Current Size (cm) - Depth 0.1 -Total Square Cm 0.20 -Date of Last Picture (Recall this 04/27/25 field) -Photo Taken Yes -Epithelialization Small 1-33% -Tunneling No -Undermining/Tunneling No -Circular Undermining No -Exudate Amt Medium -Exudate Type Serosanguineous -Wound Margin Flat & Intact -Granulation Amt Large (67-100%) -Granulation Quality Red -Slough/Fibrin No -Necrosis Amt Small (1-33%) -Necrotic Tissue Type Adherent Slough -Texture (Laney-wound Skin Appearance) Assessed, Scarring -Moisture (Laney-wound Skin Appearance) Assessed,Dry/ Scaly -Color (Laney-wound Skin Appearance) Assessed -Temperature (Laney-wound Skin No Abnormality Appearance) (Pt Warm) -Tenderness on Palpation (Laney-wound No Skin Appearance) -Ulcer Cleansing Rinsed/ Irrigated with Saline -Foul Odor after Cleansing No -Anesthetic Used 5% Lidocaine Gel NICOLAS - Nurse 2 - General Ulcer CM Notes Start: 04/27/25 13:23 Freq: Status: Active Protocol: Activity Type Activity Date Activity User E-sign Co-sign Detail Recorded Client Recorded Date Recorded By Document 04/27/25 13:36 DS [id number] 04/27/25 13:41 DS 04/27/25 13:36 Wound Center Nurse 2 -Time 13:36 -Correct Patient Yes -Correct Side, Site, Position Yes -Procedure Performed No -Post Debridement (cm) - Length 0.6 -Post Debridement (cm) - Width 0.5 -Post Debridement (cm) - Depth 0.1 -Total Square (Post) (cm) 0.30 -Area of Debridement (cm) - Length 0.5 -Area of Debridement (cm) - Width 0.6 -Total Square (Area) (cm) 0.30 -Tunneling No -Undermining/Tunneling No -Circular Undermining No -Wound/Ulcer Outcome Not Healed Pain Scale: 0-10 Numeric Is Patient Pain Free? Yes - Nurse 3 - General Ulcer D/C NN Start: 04/27/25 13:23 Freq: Status: Active Protocol: Activity Type Activity Date Activity User E-sign Co-sign Detail Recorded Client Recorded Date Recorded By Document 04/27/25 13:53 GABBY [id number] 04/27/25 13:53 GABBY 04/27/25 13:53 Wound Care Center Nurse 3 #4 l iSCHIAL -Primary Dressing Applied Fibracol Plus 4x4,Silicone Border Foam 4x4 -Fibracol Plus 4x4 1 -Silicone Border Foam 4x4 1 Pain Scale: 0-10 Numeric Is Patient Pain Free? Yes - Visit Discharge Discharge Condition Stable Ambulatory Status Wheelchair Transportation Private Auto Medication Reconcilliation completed & No provided to patient/care provider Clinical Summary of Care Provided Yes Charges/Coding Visit Charges Office Visits / Consults: 89794 OV L3 Est 20min Assessment/Plan Assessment/Plan (1) 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, stage 3: CODE(S): L89.323 - Pressure ulcer of left buttock, stage 3 (2) Pressure ulcer of ischium, stage 3: CODE(S): L89.303 - Pressure ulcer of unspecified buttock, stage 3 QUALIFIERS: Laterality: left Qualified Code(s): L89.323 - Pressure ulcer of left buttock, stage 3 (3) Paraplegia: CODE(S): G82.20 - Paraplegia, unspecified (4) Large B-cell lymphoma: CODE(S): C85.10 - Unspecified B-cell lymphoma, unspecified site (5) Chronic indwelling Gutierrez catheter: CODE(S): Z97.8 - Presence of other specified devices (6) Non-smoker: CODE(S): Z78.9 - Other specified health status (7) Hypertension: CODE(S): I10 - Essential (primary) hypertension (8) Debility: CODE(S): R53.81 - Other malaise (9) Myocardial infarct: CODE(S): I21.9 - Acute myocardial infarction, unspecified (10) Afib: CODE(S): I48.91 - Unspecified atrial fibrillation (11) Diffuse large B-cell lymphoma: CODE(S): C83.30 - Diffuse large B-cell lymphoma, unspecified site QUALIFIERS: Lymphoma site: extranodal excluding spleen and other solid organs Qualified Code(s): C83.39 - Diffuse large B-cell lymphoma, extranodal and solid organ sites (12) Chronic anticoagulation: CODE(S): Z79.01 - longterm (current) use of anticoagulants PLAN: Plan This is an 79-year-old paraplegic female with a stage III pressure ulceration atthe site of the left ischium. There is a moderate amount of inflammation and maceration about the ulceration. The patient's family indicates that this may be due to occasional leakage from the patient's Gutierrez catheter, accounting for moisture to the area of the ulceration. There has been less leakage recently, as the patient's family has been very attentive. The patient's family is changing her undergarments frequently, and as necessary when moist. We are to continue the use of lightly moistened Fibracol topically to the ulcer on a dailybasis, covered with [place] SAP. The patient and her family have been instructed in appropriate means of application. We are also to continue the use of a barrier protectant in the laney-ulcer area, and Aquaphor to the nearby areas of dry, scaly skin. The patient's family has been encouraged to continue changing her undergarments as necessary to avoid prolonged periods of moisture. Continued offloading measures have been advised. Measures are to be continued in an effort to reduce the effects of pressure, friction, and maceration. The patient has a Roho cushion and an air mattress, and frequent repositioning has been recommended. The patient's sacral ulceration remains healed. The patient has been advised to continue with a healthy diet and nutritional supplements. She has been provided samples of [place]. A culture from April 07, 2025, isolated methicillin-resistant Staph aureus, Enterococcus faecalis, Corynebacterium jeikeium, and an anaerobic cocci. The patient had initially been placed on Bactrim double strength, but was switched to linezolid 600 mg p.o. every 12 hours for 10 days, which has now been completed. The patient is to follow-up in2 weeks for reevaluation. Total time: 25 minutes 05/01/25 1738 <Electronically signed by Oscar Steele MD> Cosigner Signature (if applicable): CC: ~ Signed [facility] Work Phone: 1(878) 631-961607-12-2025 History and physical note [facility] [address] [place] [address] H&P Exam - Wound Care 05/01/25 1722 MR#: [id number] Acct: [id number] Name: CHRISTOPHER CORONEL Rep #:[id number] : 1945 79 From: Oscar Pascal PCP: Dr. Jennie Mcintyre MD Status:R EG RCR Location: History of Present Illness Date of Service: 04/27/25 Chief Complaint: Left ischial pressure ulceration, stage III History of Wound: This is an 79-year-old female, [facility] by a provider who has transferred to another facility. 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 She had progressive paraplegia. She went to TCU for acute rehab for this progressive paraplegia. During that time she had worsening sacral pressure sore with skin necrosis. Surgery 05/15/21 - Excision necrotic sacral pressure sore, Stage IV, with partialostectomy for osteomyelitis. Pathology from surgery on 05/15/21 of bone showed acute osteomyelitis. Operative culture, soft tissue, from 05/15/21 was positive for Escherichia coli,Klebsiella, Vanc. Resist. E. gallinarum, Vanc. Resist. E. faecalis. Operative culture, bone, from 05/15/21 was positive for Escherichia coli, Vanc. Resist. E. faecalis,Vanc. Resist. E. gallinarum. She was treated with Meropenem and Vancomycin. Linezolid was started after Vancomycin was stopped. Radiation from 05/17/21 - 06/12/21 18 treatments to T4-T7 area including paraspinal region. 06/06/21- Laparoscopic sigmoid colectomy with creation of end colostomy for fecaldiversion. She healed out her ulcers November 2023. She states that she was having issues with her urinary catheter leaking which then caused skin breakdown on her left ischial area a little before [place]. They have been using dressing supplies that they had left over (Dakin's, selena, aquacel-ag). They thought there mightbe some improvement in the ulcer, but now that it has been almost a month, they came back for further evaluation and treatment. Wound culture from 11/04/24 positive for Staphylococcus haemolyticus, Staphylococcus epidermidis, Escherichia coli, Corynebacterium striatum, and Cutibacterium acnes and she was treated with Levaquin and Linezolid. The patient denies a history of congestive heart failure, cerebrovascular accident, diabetes mellitus, thyroid disease, pulmonary disease, and renal disease. She has suffered a myocardial infarction in the past, and has had coronary revascularization performed in 2018. She is on long-term systemic a nticoagulation with warfarin. [facility] Medical History MRSA (methicillin resistant Staphylococcus aureus) infection Pressure ulcer of ischium, stage 3 Chronic anticoagulation History of echocardiogram Wears glasses Wears dentures Uses wheelchair Indwelling urethral catheter present Anemia Non-smoker History of edema Cardiology follow-up encounter Pressure ulcer COVID-19 Decubitus ulcer of left ischium, stage 2 Pressure ulcer of right ischium MCI (mild cognitive impairment) Adrenal disorder Decubitus ulcer of left ischium, stage 4 Chronic indwelling Gutierrez catheter Hypertension Pressure sore UTI (urinary tract infection) Adynamic ileus Abdominal pain History of radiation therapy Neuropathic pain Diffuse large B cell lymphoma Paraplegia Debility Pressure ulcer of sacral region, stage 4 Osteomyelitis of pelvis Myocardial infarct Afib Pressure ulcer of sacral region, unstageable Diffuse large B-cell lymphoma Paraplegia Home Medications ?Medication ?Instructions ?Recorded ?Last Taken ?Type losartan 100 mg tablet 50 mg PO DAILY HEART 1 12/23/24 History amiodarone 200 mg tablet 200 mg PO DAILY@1400 HEART 0 12/12/21 Unknown History gabapentin 100 mg capsule 100 mg PO BID 12/12/2112/23 History metoprolol succinate 50 mg 25 mg PO DAILY BP 12/12/21 12/23/24 History tablet,extended release 24 hr Lactobacillus acidophilus 10 10,000 mmu cells PO DAILY @1400 01/19/22 Unknown History billion cell capsule (Probiotic) supplement atorvastatin 40 mg tablet 40 mg PO QHS cholesterol 12/12 Unknown History MINGXIA RED 1 tsp PO DAILY 12/09/24 Unkn own History sennosides 8.6 mg capsule (senna) 17.2 mg PO QHS 12/09 Unknown History warfarin 2 mg tablet 2 mg PO DAILY 12/09/2412/17 History nystatin 100,000 unit/gram topical 1 applic topical BI D 10 days #30 01/20/25 Unknown Rx cream grams sulfamethoxazole 800 1 tab PO Q12H Pressure Ulcer #20 04/10/25 Unknown Rx mg-trimethoprim 160 mg tablet tabs (Bactrim DS) linezolid 600 mg tablet 600 mg PO Q12H Wound Infecti on #20 04/14/25 Unknown Rx tabs linezolid 600 mg tablet 600 mg PO Q12H Wound infecti on #20 04/14/25 Unknown Rx tabs Allergy/AdvReac Type Severity Reaction Status Date / Time prednisone Allergy Intermediate atrial Verified 12/23/24 07:52 fibrillation Family History Father CHF (congestive heart failure) Myocardial infarction Mother CAD (coronary artery disease) Alzheimer disease Surgical History History of colectomy H/O Spinal surgery History of cholecystectomy S/P excisional debridement S/P cholecystectomy Hx of CABG Social History household members: family housing: house number of children: 5 Smoking Status: Never smoker alcohol intake: never substance use type: does not use what type of physical activity do you participate in: other details: leg therapy/hand weights frequency: 5-6 times per week chris/pentecostalism: Buddhist Physical Exam Const alert, oriented x3, no apparent distress and average body habitus Constitutional Narrative: The patient's BMI is 25.1. General Appearance: cooperative, comfortable and well developed Orientation / Consciousness: awake, oriented to person, oriented to place and oriented to time HEENT normocephalic and head/scalp atraumatic Head and Scalp: normal to inspection, normocephalic and atraumatic Face and Sinus: normal facial exam Nose: external nose normal External Ear: external ears normal Eyes EOMs intact bilaterally General Eye: normal appearance of both eyes Neck full ROM Resp normal respiratory effort, normal air movement, no retractions and no use of accessory muscles Effort and Inspection: able to speak in complete sentences GI GI Narrative: The patient has a functional colostomy. Bladder / Kidney Exam: catheter in place Extremity Extremity Narrative: Upper extremities have full ROM. Paralyzed. Skin Wound Narrative: A pressure ulceration is noted on the left ischial region. It is full-thickness, through all layersof the dermis and into the subcutaneous tissues. This is a stage III pressure ulceration. Ulcer margins are well beveled. Dimensions are documented elsewhere. It appears to be slightly smaller. It isgenerally pink and healthy, with active granulation tissue. There is a small amount of bioburden and nonviable tissue. The laney-ulcer skin is erythematous, macerated, and excoriated. Neuro oriented x3 and CN's II-XII intact bilaterally Neuro Narrative: The patient is paraplegic. Sensorium / Orientation: awake, alert, oriented to person, oriented to place andoriented to time Speech: speech normal Psych mental status grossly normal, thought process normal and cooperative Appearance: appropriate Debridement Note Debridement Note No debridement was completed: No debridement was completed today Post-Debridement Measurements and Additional Note: Post-Debridement Measurements/Treatment - Nurse 1 - General Ulcer Assessment Start: 04/27/25 13:23 Freq: Status: Active Protocol: KRANTHI Activity Type Activity Date Activity User E-sign Co-sign Detail Recorded Client Recorded Date Recorded By Document 04/27/25 13:23 [facility] [id number] 04/27/25 13:25 [facility] 04/27/25 13:23 - Today's Visit Information Type of service Follow-up Visit (Physician/MANAGER OF PLANNING ) Arrival Mode Wheelchair Transfer Assistance Will Lift Transfer Assist (Other) 3 Accompanied by daughter and Patient Identification Verified (Name & Yes ) Patient Requires Transmission-Based No Precautions Vital Signs Temperature (97.8 F-99.1 F) 97.4 F L Temperature Source Temporal Pulse Rate (60-100) 58 L Pulse Location Monitor Respiratory Rate (12-18) 16 Respiratory rate source Observation Oxygen Delivery Method Room Air Blood Pressure (90/60-120/80) 148/74 H Blood Pressure Mean 98 Source Monitor Position Sitting Blood Pressure Location Right Arm History Since Last Visit- (Skip if this is Patient's initial visit) Have you changed medications since your No last visit? Any new allergies or adverse reactions No Had a fall/change in ADL's that may No increase risk of falls Signs or symptoms of abuse and/or No neglect since last visit Have you been in the hospital since your No last visit? Has dressing in place as prescribed Yes Has compression in place as prescribed N/A Has offloadiing in place as prescribed N/A Experienced any changes in pain level or No management Left Footwear Slipper Right Footwear Slipper Pain Scale: 0-10 Numeric Is Patient Pain Free? Yes WC - Nurse 1 - General Ulcer Measurement Start: 04/27/25 13:23 Freq: Status: Active Protocol: Activity Type Activity Date Activity User E-sign Co-sign Detail Recorded Client Recorded Date Recorded By Document 04/27/25 13:23 [facility] [id number] 04/27/25 13:25 [facility] 04/27/25 13:23 Wound Center Nurse 1 #4 l iSCHIAL -Combined with other wound No -Current Size (cm) - Length 0.4 -Current Size (cm) - Width 0.5 -Current Size (cm) - Depth 0.1 -Total Square Cm 0.20 -Date of Last Picture (Recall this 04/27/25 field) -Photo Taken Yes -Epithelialization Small 1-33% -Tunneling No -Undermining/Tunneling No -Circular Undermining No -Exudate Amt Medium -Exudate Type Serosanguineous -Wound Margin Flat & Intact -Granulation Amt Large (67-100%) -Granulation Quality Red -Slough/Fibrin No -Necrosis Amt Small (1-33%) -Necrotic Tissue Type Adherent Slough -Texture (Laney-wound Skin Appearance) Assessed, Scarring -Moisture (Laney-wound Skin Appearance) Assessed,Dry/ Scaly -Color (Laney-wound Skin Appearance) Assessed -Temperature (Laney-wound Skin No Abnormality Appearance) (Pt Warm) -Tenderness on Palpation (Laney-wound No Skin Appearance) -Ulcer Cleansing Rinsed/ Irrigated with Saline -Foul Odor after Cleansing No -Anesthetic Used 5% Lidocaine Gel WC - Nurse 2 - General Ulcer CM Notes Start: 04/27/25 13:23 Freq: Status: Active Protocol: Activity Type Activity Date Activity User E-sign Co-sign Detail Recorded Client Recorded Date Recorded By Document 04/27/25 13:36 DS [id number] 04/27/25 13:41 DS 04/27/25 13:36 Wound Center Nurse 2 -Time 13:36 -Correct Patient Yes -Correct Side, Site, Position Yes -Procedure Performed No -Post Debridement (cm) - Length 0.6 -Post Debridement (cm) - Width 0.5 -Post Debridement (cm) - Depth 0.1 -Total Square (Post) (cm) 0.30 -Area of Debridement (cm) - Length 0.5 -Area of Debridement (cm) - Width 0.6 -Total Square (Area) (cm) 0.30 -Tunneling No -Undermining/Tunneling No -Circular Undermining No -Wound/Ulcer Outcome Not Healed Pain Scale: 0-10 Numeric Is Patient Pain Free? Yes - Nurse 3 - General Ulcer D/C NN Start: 04/27/25 13:23 Freq: Status: Active Protocol: Activity Type Activity Date Activity User E-sign Co-sign Detail Recorded Client Recorded Date Recorded By Document 04/27/25 13:53 KW [id number] 04/27/25 13:53 KW 04/27/25 13:53 Wound Care Center Nurse 3 #4 l iSCHIAL -Primary Dressing Applied Fibracol Plus 4x4,Silicone Border Foam 4x4 -Fibracol Plus 4x4 1 -Silicone Border Foam 4x4 1 Pain Scale: 0-10 Numeric Is Patient Pain Free? Yes - Visit Discharge Discharge Condition Stable Ambulatory Status Wheelchair Transportation Private Auto Medication Reconcilliation completed & No provided to patient/care provider Clinical Summary of Care Provided Yes Charges/Coding Visit Charges Office Visits / Consults: 70775 OV L3 Est 20min Assessment/Plan Assessment/Plan (1) 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, stage 3: CODE(S): L89.323 - Pressure ulcer of left buttock, stage 3 (2) Pressure ulcer of ischium, stage 3: CODE(S): L89.303 - Pressure ulcer of unspecified buttock, stage 3 QUALIFIERS: Laterality: left Qualified Code(s): L89.323 - Pressure ulcer of left buttock, stage 3 (3) Paraplegia: CODE(S): G82.20 - Paraplegia, unspecified (4) Large B-cell lymphoma: CODE(S): C85.10 - Unspecified B-cell lymphoma, unspecified site (5) Chronic indwelling Gutierrez catheter: CODE(S): Z97.8 - Presence of other specified devices (6) Non-smoker: CODE(S): Z78.9 - Other specified health status (7) Hypertension: CODE(S): I10 - Essential (primary) hypertension (8) Debility: CODE(S): R53.81 - Other malaise (9) Myocardial infarct: CODE(S): I21.9 - Acute myocardial infarction, unspecified (10) Afib: CODE(S): I48.91 - Unspecified atrial fibrillation (11) Diffuse large B-cell lymphoma: CODE(S): C83.30 - Diffuse large B-cell lymphoma, unspecified site QUALIFIERS: Lymphoma site: extranodal excluding spleen and other solid organs Qualified Code(s): C83.39 - Diffuse large B-cell lymphoma, extranodal and solid organ sites (12) Chronic anticoagulation: 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 There is a moderate amount of inflammation and maceration about the ulceration. The patient's family indicates that this may be due to occasional leakage from the patient's Gutierrez catheter, accounting for moisture to the area of the ulceration. There has been less leakage recently, as the patient's family has been very attentive. The patient's family is changing her undergarments frequently, and as necessary when moist. We are to continue the use of lightly moistened Fibracol topicallyto the ulcer on a dailybasis, covered with [place] SAP. The patient and her family have been instructed in appropriate means of application. We are also to continue the use of a barrier protectant in the laney-ulcer area, and Aquaphor to the nearby areas of dry, scaly skin. The patient's family has been encouraged to continue changing her undergarments as necessary to avoid prolonged periods of moisture. Continued offloading measures have been advised. Measures are to be continued in an effort to reduce the effects of pressure, friction, and maceration. The patient has a Roho cushion and an air mattress, and frequent repositioning has been recommended. The patient's sacral ulceration remains healed. The patient has been advised to continue with a healthy diet and nutritional supplements. Shehas been provided samples of Shaan. A culture from April 07, 2025, isolated methicillin-resistant Staph aureus, Enterococcus faecalis, Corynebacterium jeikeium, and an anaerobic cocci. The patient hadinitially been placed on Bactrim double strength, but was switched to linezolid 600 mg p.o. every 12 hours for 10 days, which has now been completed. The patient is to follow-up in2 weeks for reevaluation. Total time: 25 minutes 05/01/25 9018 Cosigner Signature (if applicable): CC: ~ Signed [facility]06-27-2025 History and physical note Author Oscar Steele [facility] Note Date/Time April 16, 2025 10:5 4am [facility] [address] [place] [address] H&P Exam - Wound Care 04/16/25 1038 MR#: [id number] Acct: [id number] Name: CHRISTOPHER CORONEL Rep #:[id number] : 1945 79 From: Oscar Pascal PCP: Dr. Jennie Mcintyre MD Status:R EG RCR Location: History of Present Illness Date of Service: 04/14/25 Chief Complaint: Left ischial pressure ulceration, stage III History of Wound: This is an 79-year-old female, formerly cared for at the [facility] by a provider who has transferred to another facility. 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 She had progressive paraplegia. She went to TCU for acute rehab for this progressive paraplegia. During that time she had worsening sacral pressure sore with skin necrosis. Surgery 05/15/21 - Excision necrotic sacral pressure sore, Stage IV, with partialostectomy for osteomyelitis. Pathology from surgery on 05/15/21 of bone showed acute osteomyelitis. Operative culture, soft tissue, from 05/15/21 was positive for Escherichia coli,Klebsiella, Vanc. Resist. E. gallinarum, Vanc. Resist. E. faecalis. Operative culture, bone, from 05/15/21 was positive for Escherichia coli, Vanc. Resist. E. faecalis, Vanc. Resist. E. gallinarum. She was treated with Meropenem and Vancomycin. Linezolid was started after Vancomycin was stopped. Radiation from 05/17/21 - 06/12/21 18 treatments to T4-T7 area including paraspinal region. 06/06/21- Laparoscopic sigmoid colectomy with creation of end colostomy for fecaldiversion. She healed out her ulcers November 2023. She states that she was having issues with her urinary catheter leaking which then caused skin breakdown on her left ischial area a little before Antoine. They have been using dressing supplies that they had left over (Dakin's, selena, aquacel-ag). They thought there mightbe some improvement in the ulcer, but now that it has been almost a month, they came back for further evaluation and treatment. Wound culture from 11/04/24 positive for Staphylococcus haemolyticus, Staphylococcus epidermidis, Escherichia coli, Corynebacterium striatum, and Cutibacterium acnes and she was treated with Levaquin and Linezolid. The patient denies a history of congestive heart failure, cerebrovascular accident, diabetes mellitus, thyroid disease, pulmonary disease, and renal disease. She has suffered a myocardial infarction in the past, and has had coronary revascularization performed in 2018. She is on long-term systemic anticoagulation with warfarin. [facility] Medical History MRSA (methicillin resistant Staphylococcus aureus) infection Pressure ulcer of ischium, stage 3 Chronic anticoagulation History of echocardiogram Wears glasses Wears dentures Uses wheelchair Indwelling urethral catheter present Anemia Non-smoker History of edema Cardiology follow-up encounter Pressure ulcer COVID-19 Decubitus ulcer of left ischium, stage 2 Pressure ulcer of right ischium MCI (mild cognitive impairment) Adrenal disorder Decubitus ulcer of left ischium, stage 4 Chronic indwelling Gutierrez catheter Hypertension Pressure sore UTI (urinary tract infection) Adynamic ileus Abdominal pain History of radiation therapy Neuropathic pain Diffuse large B cell lymphoma Paraplegia Debility Pressure ulcer of sacral region, stage 4 Osteomyelitis of pelvis Myocardial infarct Afib Pressure ulcer of sacral region, unstageable Diffuse large B-cell lymphoma Paraplegia Home Medications ?Medication ?Instructions ?Recorded ?Last Taken ?Type losartan 100 mg tablet 50 mg PO DAILY HEART 1 12/23/24 History amiodarone 200 mg tablet 200 mg PO DAILY@1400 HEART 0 12/12/21 Unknown History gabapentin 100 mg capsule 100 mg PO BID 12/12/2112/23 History metoprolol succinate 50 mg 25 mg PO DAILY BP 12/12/21 12/23/24 History tablet,extended release 24 hr Lactobacillus acidophilus 10 10,000 mmu cells PO DAILY @1400 01/19/22 Unknown History billion cell capsule (Probiotic) supplement atorvastatin 40 mg tablet 40 mg PO QHS cholesterol 12/12 Unknown History MINGXIA RED 1 tsp PO DAILY 12/09/24 Unkn own History sennosides 8.6 mg capsule (senna) 17.2 mg PO QHS 12/09 Unknown History warfarin 2 mg tablet 2 mg PO DAILY 12/09/2412/17 History nystatin 100,000 unit/gram topical 1 applic topical BI D 10 days #30 01/20/25 Unknown Rx cream grams sulfamethoxazole 800 1 tab PO Q12H Pressure Ulcer #20 04/10/25 Unknown Rx mg-trimethoprim 160 mg tablet tabs (Bactrim DS) linezolid 600 mg tablet 600 mg PO Q12H Wound Infecti on #20 04/14/25 Unknown Rx tabs linezolid 600 mg tablet 600 mg PO Q12H Wound infecti on #20 04/14/25 Unknown Rx tabs Allergy/AdvReac Type Severity Reaction Status Date / Time prednisone Allergy Intermediate atrial Verified 12/23/24 07:52 fibrillation Family History Father CHF (congestive heart failure) Myocardial infarction Mother CAD (coronary artery disease) Alzheimer disease Surgical History History of colectomy H/O Spinal surgery History of cholecystectomy S/P excisional debridement S/P cholecystectomy Hx of CABG Social History household members: family housing: house number of children: 5 Smoking Status: Never smoker alcohol intake: never substance use type: does not use what type of physical activity do you participate in: other details: leg therapy/hand weights frequency: 5-6 times per week chris/pentecostalism: Buddhist Vital Signs Vital Signs Vital Signs: Weight Weight: 150 lb 11.094 oz Body Mass Index (BMI) 25.0 Physical Exam Const alert, oriented x3, no apparent distress and average body habitus Constitutional Narrative: The patient's BMI is 25.1. General Appearance: cooperative, comfortable and well developed Orientation / Consciousness: awake, oriented to person, oriented to place and oriented to time HEENT normocephalic and head/scalp atraumatic Head and Scalp: normal to inspection, normocephalic and atraumatic Face and Sinus: normal facial exam Nose: external nose normal External Ear: external ears normal Eyes EOMs intact bilaterally General Eye: normal appearance of both eyes Neck full ROM Resp normal respiratory effort, normal air movement, no retractions and no use of accessory muscles Effort and Inspection: able to speak in complete sentences GI GI Narrative: The patient has a functional colostomy. Bladder / Kidney Exam: catheter in place Extremity Extremity Narrative: Upper extremities have full ROM. Paralyzed. Skin Wound Narrative: A pressure ulceration is noted on the left ischial region. It is full-thickness, through all layers of the dermis and into the subcutaneous tissues. This is a stage III pressure ulceration. Ulcer margins are well beveled. Dimensions are documented elsewhere. It appears generally pink and healthy, with active granulation tissue. There is a small amount of bioburden and nonviable tissue. The laney-ulcer skin is erythematous, macerated, and excoriated. Neuro oriented x3 and CN's II-XII intact bilaterally Neuro Narrative: The patient is paraplegic. Sensorium / Orientation: awake, alert, oriented to person, oriented to place andoriented to time Speech: speech normal Psych mental status grossly normal, thought process normal and cooperative Appearance: appropriate Debridement Note Debridement Note Wound debrided: Left ischial pressure ulceration Laterality: Left Wound Grade/Stage: Stage III Type of Debridement: Excisional debridement Anesthesia Used: 5% Lidocaine Gel Depth: Down to and including healthy tissue and in the subcutaneous layer Percentage of wound debrided: 100 Instrument Used: 5mm curette Tissue Removed: Bioburden and nonviable tissue Severity: Fat Layer Exposed Amount of bleeding with debridement: Mild Bleeding Controlled with: Compression and gauze Patient tolerated procedure: Patient tolerated procedure well Post-Debridement Measurements and Additional Note: Post-Debridement Measurements/Treatment - Nurse 1 - General Ulcer Assessment Start: 04/07/25 13:26 Freq: Status: Active Protocol: KRANHTI Activity Type Activity Date Activity User E-sign Co-sign Detail Recorded Client Recorded Date Recorded By Document 04/07/25 13:26 [facility] [id number] 04/07/25 13:29 [facility] Document 04/14/25 13:25 [facility] [id number] 04/14/25 13:37 [facility] 04/07/25 04/14/25 13:26 13:25 - Today's Visit Information Type of service Follow-up Visit Follow-up Visit (Physician/MANAGER OF PLANNING (Physician/MANAGER OF PLANNING ) ) Arrival Mode Wheelchair Wheelchair Transfer Assistance Will Lift Will Lift Transfer Assist (Other) 2 Accompanied by daughter and DAUGHTER AND Patient Identification Verified (Name & Yes Yes ) Patient Requires Transmission-Based No No Precautions Height and Weight Body Mass Index (BMI) 25.0 25.0 BMI Classification Overweight Overweight Vital Signs Temperature (97.8 F-99.1 F) 98 F 98.4 F Temperature Source Temporal Temporal Pulse Rate (60-100) 59 L 56 L Pulse Location Monitor Monitor Respiratory Rate (12-18) 16 16 Respiratory rate source Observation Observation Oxygen Delivery Method Room Air Room Air Blood Pressure (90/60-120/80) 140/74 H 117/69 Blood Pressure Mean 96 85 Source Monitor Monitor Position Sitting Sitting Blood Pressure Location Right Arm Left Arm History Since Last Visit- (Skip if this is Patient's initial visit) Have you changed medications since your No No last visit? Any new allergies or adverse reactions No No Had a fall/change in ADL's that may No No increase risk of falls Signs or symptoms of abuse and/or No No neglect since last visit Have you been in the hospital since your No No last visit? Has dressing in place as prescribed Yes Yes Has compression in place as prescribed N/A N/A Has offloadiing in place as prescribed N/A N/A Experienced any changes in pain level or No No management Left Footwear Slipper Right Footwear Slipper Other Footwear SOCKS BLE Pain Scale: 0-10 Numeric Is Patient Pain Free? Yes Yes WC - Nurse 1 - General Ulcer Measurement Start: 04/07/25 13:26 Freq: Status: Active Protocol: Activity Type Activity Date Activity User E-sign Co-sign Detail Recorded Client Recorded Date Recorded By Document 04/07/25 13:26 BM [id number] 04/07/25 13:29 BM Document 04/14/25 13:25 BM [id number] 04/14/25 13:37 BMF 04/07/25 04/14/25 13:26 13:25 Wound Center Nurse 1 #4 l iSCHIAL -Combined with other wound No No -Current Size (cm) - Length 2 1.1 -Current Size (cm) - Width 1.5 0.9 -Current Size (cm) - Depth 0.1 0.1 -Total Square Cm 3.0 0.99 -Date of Last Picture (Recall this 04/07/25 04/14/25 field) -Photo Taken Yes Yes -Epithelialization None Present Small 1-33% -Tunneling No No -Undermining/Tunneling No No -Circular Undermining No No -Exudate Amt Medium Medium -Exudate Type Serosanguineous Serosanguineous -Wound Margin Distinct, Distinct, Outline Outline Attached Attached -Granulation Amt Large (67-100%) Large (67-100%) -Granulation Quality Red Red -Slough/Fibrin No No -Necrosis Amt None Present (0 None Present (0 %) %) -Texture (Laney-wound Skin Appearance) Assessed Assessed -Moisture (Laney-wound Skin Appearance) Assessed Assessed -Color (Laney-wound Skin Appearance) Assessed Assessed -Temperature (Laney-wound Skin No Abnormality No Abnormality Appearance) (Pt Warm) (Pt Warm) -Tenderness on Palpation (Laney-wound No No Skin Appearance) -Ulcer Cleansing Rinsed/ Rinsed/ Irrigated with Irrigated with Saline Saline -Foul Odor after Cleansing No No -Anesthetic Used 5% Lidocaine 5% Lidocaine Gel Gel WC - Nurse 2 - General Ulcer CM Notes Start: 04/07/25 13:26 Freq: Status: Active Protocol: Activity Type Activity Date Activity User E-sign Co-sign Detail Recorded Client Recorded Date Recorded By Document 04/07/25 13:41 [id number] 04/07/25 13:45 Document 04/14/25 14:11 [id number] 04/14/25 14:14 04/07/25 04/14/25 13:41 14:11 Wound Center Nurse 2 #4 l iSCHIAL -Time 13:44 14:11 -Correct Patient Yes Yes -Correct Side, Site, Position Yes Yes -Correct Procedure Yes Yes -Procedure Performed Yes Yes -Type of Procedure Debridement Debridement -Clinical Debridement Subcutaneous Subcutaneous -Tissue Removed Subcutaneous Subcutaneous -Post Debridement (cm) - Length 1.0 0.9 -Post Debridement (cm) - Width 1.4 0.6 -Post Debridement (cm) - Depth 0.1 0.1 -Total Square (Post) (cm) 1.40 0.54 -Area of Debridement (cm) - Length 1.0 0.9 -Area of Debridement (cm) - Width 1.4 0.6 -Total Square (Area) (cm) 1.40 0.54 -Tunneling No No -Undermining/Tunneling No No -Circular Undermining No No -Wound/Ulcer Outcome Not Healed Not Healed -Ulcer Cleansing Rinsed/ Irrigated with Saline -Foul Odor after Cleansing No No -Bioengineered Tissue No No -Bleeding Controlled with Pressure Pressure -Treatment Response Procedure Procedure Tolerated Well Tolerated Well -Offloading No No -Debridement - Subq, 1st 20sq cm Yes Yes Pain Scale: 0-10 Numeric Is Patient Pain Free? Yes Yes WC - Nurse 3 - General Ulcer D/C NN Start: 04/07/25 13:26 Freq: Status: Active Protocol: Activity Type Activity Date Activity User E-sign Co-sign Detail Recorded Client Recorded Date Recorded By Document 04/07/25 14:09 DL [id number] 04/07/25 14:10 DL Document 04/14/25 14:38 ML [id number] 04/14/25 14:39 ML 04/07/25 04/14/25 14:09 14:38 Wound Care Center Nurse 3 #4 l iSCHIAL -Ulcer Cleansing Rinsed/ Rinsed/ Irrigated with Irrigated with Saline Saline -Foul Odor after Cleansing No -Primary Dressing Applied Fibracol Plus Fibracol Plus 4x4,Silicone 4x4,Silicone Border Foam 6x6 Border Foam 6x6 -Other Dressing Skin Prep -Fibracol Plus 4x4 1 1 -Silicone Border Foam 6x6 1 1 Laney-Wound Care Barrier Treatment Response Procedure Tolerated Well Pain Scale: 0-10 Numeric Is Patient Pain Free? Yes Yes WC - Visit Discharge Discharge Condition Stable Ambulatory Status Wheelchair Transportation Private Auto Accompanied by family Lab / Micro Data Micro: Microbiology 04/07/25 13:43 Wound - Ischium Gram Stain - Final 04/07/25 13:43 Wound - Ischium Wound Culture - Final Meth. resistant Staph. aureus Enterococcus faecalis Corynebacterium jeikeium 04/07/25 13:43 Wound - Ischium Anaerobic Culture - Final Anaerobic cocci Charges/Coding Procedures Integumentary 111xxx-113xx: [id number] Casie subq tissue 20 sq cm/< Assessment/Plan Assessment/Plan (1) 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, stage 3: CODE(S): L89.323 - Pressure ulcer of left buttock, stage 3 (2) Pressure ulcer of ischium, stage 3: CODE(S): L89.303 - Pressure ulcer of unspecified buttock, stage 3 QUALIFIERS: Laterality: left Qualified Code(s): L89.323 - Pressure ulcer of left buttock, stage 3 (3) Paraplegia: CODE(S): G82.20 - Paraplegia, unspecified (4) Large B-cell lymphoma: CODE(S): C85.10 - Unspecified B-cell lymphoma, unspecified site (5) Chronic indwelling Gutierrez catheter: CODE(S): Z97.8 - Presence of other specified devices (6) Non-smoker: CODE(S): Z78.9 - Other specified health status (7) Hypertension: CODE(S): I10 - Essential (primary) hypertension (8) Debility: CODE(S): R53.81 - Other malaise (9) Myocardial infarct: CODE(S): I21.9 - Acute myocardial infarction, unspecified (10) Afib: CODE(S): I48.91 - Unspecified atrial fibrillation (11) Diffuse large B-cell lymphoma: CODE(S): C83.30 - Diffuse large B-cell lymphoma, unspecified site QUALIFIERS: Lymphoma site: extranodal excluding spleen and other solid organs Qualified Code(s): C83.39 - Diffuse large B-cell lymphoma, extranodal and solid organ sites (12) Chronic anticoagulation: CODE(S): Z79.01 - longterm (current) use of anticoagulants PLAN: Plan This is an 79-year-old paraplegic female with a stage III pressure ulceration atthe site of the left ischium. There is a moderate amount of inflammation and maceration about the ulceration. The patient's family indicates that this may be due to occasional leakage from the patient's Gutierrez catheter, accounting for moisture to the area of the ulceration. The patient's family is changing her undergarments frequently, and as necessary when moist. We are to continue the use of lightly moistened Fibracol topically to the ulcer on a daily basis. The patient and her family have been instructed in appropriate means of application. We are also to continue the use of a barrier protectant in the laney-ulcer area. The patient's family has been encouraged to continue changing her undergarmentsas necessary to avoid prolonged periods of moisture. Continued offloading measures have been advised. Measures are to be continued in an effort to reducethe effects of pressure, friction, and maceration. The patient has a Roho cushion and an air mattress, and frequent repositioning has been recommended. The patient's sacral ulceration remains healed. The patient has been advised tocontinue with a healthy diet and nutritional supplements. A culture from April 07, 2025, isolated methicillin-resistant Staph aureus, Enterococcus faecalis, Corynebacterium jeikeium, and an anaerobic cocci. The patient had initially been placed on Bactrim double strength, but has been switched to linezolid 600 mg p.o. every 12 hours for 10 days. The patient is to follow-up in 1 week for reevaluation. Total time: 24 minutes 04/16/25 1055 <Electronically signed by Oscar Steele MD> Cosigner Signature (if applicable): CC: ~ Signed [facility] Work Phone: [phone] [phone] History and physical note [facility] [address] [place] [address] H&P Exam - Wound Care 04/16/25 1038 MR#: [id number] Acct: [id number] Name: CHRISTOPHER CORONEL Rep #:[id number] : 1945 79 From: Oscar Pascal PCP: Dr. Jennie Mcintyre MD Status:R EG RCR Location: History of Present Illness Date of Service: 04/14/25 Chief Complaint: Left ischial pressure ulceration, stage III History of Wound: This is an 79-year-old female, formerly cared for at the [facility] by a provider who has transferred to another facility. 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 She had progressive paraplegia. She went to TCU for acute rehab for this progressive paraplegia. During that time she had worsening sacral pressure sore with skin necrosis. Surgery 05/15/21 - Excision necrotic sacral pressure sore, Stage IV, with partialostectomy for osteomyelitis. Pathology from surgery on 05/15/21 of bone showed acute osteomyelitis. Operative culture, soft tissue, from 05/15/21 was positive for Escherichia coli,Klebsiella, Vanc. Resist. E. gallinarum, Vanc. Resist. E. faecalis. Operative culture, bone, from 05/15/21 was positive for Escherichia coli, Vanc. Resist. E. faecalis,Vanc. Resist. E. gallinarum. She was treated with Meropenem and Vancomycin. Linezolid was started after Vancomycin was stopped. Radiation from 05/17/21 - 06/12/21 18 treatments to T4-T7 area including paraspinal region. 06/06/21- Laparoscopic sigmoid colectomy with creation of end colostomy for fecaldiversion. She healed out her ulcers November 2023. She states that she was having issues with her urinary catheter leaking which then caused skin breakdown on her left ischial area a little before Antoine. They have been using dressing supplies that they had left over (Dakin's, selena, aquacel-ag). They thought there mightbe some improvement in the ulcer, but now that it has been almost a month, they came back for further evaluation and treatment. Wound culture from 11/04/24 positive for Staphylococcus haemolyticus, Staphylococcus epidermidis, Escherichia coli, Corynebacterium striatum, and Cutibacterium acnes and she was treated with Levaquin and Linezolid. The patient denies a history of congestive heart failure, cerebrovascular accident, diabetes mellitus, thyroid disease, pulmonary disease, and renal disease. She has suffered a myocardial infarction in the past, and has had coronary revascularization performed in 2018. She is on long-term systemic a nticoagulation with warfarin. [facility] Medical History MRSA (methicillin resistant Staphylococcus aureus) infection Pressure ulcer of ischium, stage 3 Chronic anticoagulation History of echocardiogram Wears glasses Wears dentures Uses wheelchair Indwelling urethral catheter present Anemia Non-smoker History of edema Cardiology follow-up encounter Pressure ulcer COVID-19 Decubitus ulcer of left ischium, stage 2 Pressure ulcer of right ischium MCI (mild cognitive impairment) Adrenal disorder Decubitus ulcer of left ischium, stage 4 Chronic indwelling Gutierrez catheter Hypertension Pressure sore UTI (urinary tract infection) Adynamic ileus Abdominal pain History of radiation therapy Neuropathic pain Diffuse large B cell lymphoma Paraplegia Debility Pressure ulcer of sacral region, stage 4 Osteomyelitis of pelvis Myocardial infarct Afib Pressure ulcer of sacral region, unstageable Diffuse large B-cell lymphoma Paraplegia Home Medications ?Medication ?Instructions ?Recorded ?Last Taken ?Type losartan 100 mg tablet 50 mg PO DAILY HEART 1 12/23/24 History amiodarone 200 mg tablet 200 mg PO DAILY@1400 HEART 0 12/12/21 Unknown History gabapentin 100 mg capsule 100 mg PO BID 12/12/2112/23 History metoprolol succinate 50 mg 25 mg PO DAILY BP 12/12/21 12/23/24 History tablet,extended release 24 hr Lactobacillus acidophilus 10 10,000 mmu cells PO DAILY @1400 01/19/22 Unknown History billion cell capsule (Probiotic) supplement atorvastatin 40 mg tablet 40 mg PO QHS cholesterol 12/12 Unknown History MINGXIA RED 1 tsp PO DAILY 12/09/24 Unkn own History sennosides 8.6 mg capsule (senna) 17.2 mg PO QHS 12/09 Unknown History warfarin 2 mg tablet 2 mg PO DAILY 12/09/2412/17 History nystatin 100,000 unit/gram topical 1 applic topical BI D 10 days #30 01/20/25 Unknown Rx cream grams sulfamethoxazole 800 1 tab PO Q12H Pressure Ulcer #20 04/10/25 Unknown Rx mg-trimethoprim 160 mg tablet tabs (Bactrim DS) linezolid 600 mg tablet 600 mg PO Q12H Wound Infecti on #20 04/14/25 Unknown Rx tabs linezolid 600 mg tablet 600 mg PO Q12H Wound infecti on #20 04/14/25 Unknown Rx tabs Allergy/AdvReac Type Severity Reaction Status Date / Time prednisone Allergy Intermediate atrial Verified 12/23/24 07:52 fibrillation Family History Father CHF (congestive heart failure) Myocardial infarction Mother CAD (coronary artery disease) Alzheimer disease Surgical History History of colectomy H/O Spinal surgery History of cholecystectomy S/P excisional debridement S/P cholecystectomy Hx of CABG Social History household members: family housing: house number of children: 5 Smoking Status: Never smoker alcohol intake: never substance use type: does not use what type of physical activity do you participate in: other details: leg therapy/hand weights frequency: 5-6 times per week chris/pentecostalism: Buddhist Vital Signs Vital Signs Vital Signs: Weight Weight: 150 lb 11.094 oz Body Mass Index (BMI) 25.0 Physical Exam Const alert, oriented x3, no apparent distress and average body habitus Constitutional Narrative: The patient's BMI is 25.1. General Appearance: cooperative, comfortable and well developed Orientation / Consciousness: awake, oriented to person, oriented to place and oriented to time HEENT normocephalic and head/scalp atraumatic Head and Scalp: normal to inspection, normocephalic and atraumatic Face and Sinus: normal facial exam Nose: external nose normal External Ear: external ears normal Eyes EOMs intact bilaterally General Eye: normal appearance of both eyes Neck full ROM Resp normal respiratory effort, normal air movement, no retractions and no use of accessory muscles Effort and Inspection: able to speak in complete sentences GI GI Narrative: The patient has a functional colostomy. Bladder / Kidney Exam: catheter in place Extremity Extremity Narrative: Upper extremities have full ROM. Paralyzed. Skin Wound Narrative: A pressure ulceration is noted on the left ischial region. It is full-thickness, through all layersof the dermis and into the subcutaneous tissues. This is a stage III pressure ulceration. Ulcer margins are well beveled. Dimensions are documented elsewhere. It appears generally pink and healthy, with active granulation tissue. There is a small amount of bioburden and nonviable tissue. The laney-ulcer skin is erythematous, macerated, and excoriated. Neuro oriented x3 and CN's II-XII intact bilaterally Neuro Narrative: The patient is paraplegic. Sensorium / Orientation: awake, alert, oriented to person, oriented to place andoriented to time Speech: speech normal Psych mental status grossly normal, thought process normal and cooperative Appearance: appropriate Debridement Note Debridement Note Wound debrided: Left ischial pressure ulceration Laterality: Left Wound Grade/Stage: Stage III Type of Debridement: Excisional debridement Anesthesia Used: 5% Lidocaine Gel Depth: Down to and including healthy tissue and in the subcutaneous layer Percentage of wound debrided: 100 Instrument Used: 5mm curette Tissue Removed: Bioburden and nonviable tissue Severity: Fat Layer Exposed Amount of bleeding with debridement: Mild Bleeding Controlled with: Compression and gauze Patient tolerated procedure: Patient tolerated procedure well Post-Debridement Measurements and Additional Note: Post-Debridement Measurements/Treatment - Nurse 1 - General Ulcer Assessment Start: 04/07/25 13:26 Freq: Status: Active Protocol: NICOLAS.ISSAT Activity Type Activity Date Activity User E-sign Co-sign Detail Recorded Client Recorded Date Recorded By Document 04/07/25 13:26 [facility] [id number] 04/07/25 13:29 [facility] Document 04/14/25 13:25 [facility] [id number] 04/14/25 13:37 [facility] 04/07/25 04/14/25 13:26 13:25 - Today's Visit Information Type of service Follow-up Visit Follow-up Visit (Physician/MANAGER OF PLANNING (Physician/MANAGER OF PLANNING ) ) Arrival Mode Wheelchair Wheelchair Transfer Assistance Will Lift Will Lift Transfer Assist (Other) 2 Accompanied by daughter and DAUGHTER AND Patient Identification Verified (Name & Yes Yes ) Patient Requires Transmission-Based No No Precautions Height and Weight Body Mass Index (BMI) 25.0 25.0 BMI Classification Overweight Overweight Vital Signs Temperature (97.8 F-99.1 F) 98 F 98.4 F Temperature Source Temporal Temporal Pulse Rate (60-100) 59 L 56 L Pulse Location Monitor Monitor Respiratory Rate (12-18) 16 16 Respiratory rate source Observation Observation Oxygen Delivery Method Room Air Room Air Blood Pressure (90/60-120/80) 140/74 H 117/69 Blood Pressure Mean 96 85 Source Monitor Monitor Position Sitting Sitting Blood Pressure Location Right Arm Left Arm History Since Last Visit- (Skip if this is Patient's initial visit) Have you changed medications since your No No last visit? Any new allergies or adverse reactions No No Had a fall/change in ADL's that may No No increase risk of falls Signs or symptoms of abuse and/or No No neglect since last visit Have you been in the hospital since your No No last visit? Has dressing in place as prescribed Yes Yes Has compression in place as prescribed N/A N/A Has offloadiing in place as prescribed N/A N/A Experienced any changes in pain level or No No management Left Footwear Slipper Right Footwear Slipper Other Footwear SOCKS BLE Pain Scale: 0-10 Numeric Is Patient Pain Free? Yes Yes WC - Nurse 1 - General Ulcer Measurement Start: 04/07/25 13:26 Freq: Status: Active Protocol: Activity Type Activity Date Activity User E-sign Co-sign Detail Recorded Client Recorded Date Recorded By Document 04/07/25 13:26 [facility] [id number] 04/07/25 13:29 [facility] Document 04/14/25 13:25 [facility] [id number] 04/14/25 13:37 [facility] 04/07/25 04/14/25 13:26 13:25 Wound Center Nurse 1 #4 l iSCHIAL -Combined with other wound No No -Current Size (cm) - Length 2 1.1 -Current Size (cm) - Width 1.5 0.9 -Current Size (cm) - Depth 0.1 0.1 -Total Square Cm 3.0 0.99 -Date of Last Picture (Recall this 04/07/25 04/14/25 field) -Photo Taken Yes Yes -Epithelialization None Present Small 1-33% -Tunneling No No -Undermining/Tunneling No No -Circular Undermining No No -Exudate Amt Medium Medium -Exudate Type Serosanguineous Serosanguineous -Wound Margin Distinct, Distinct, Outline Outline Attached Attached -Granulation Amt Large (67-100%) Large (67-100%) -Granulation Quality Red Red -Slough/Fibrin No No -Necrosis Amt None Present (0 None Present (0 %) %) -Texture (Laney-wound Skin Appearance) Assessed Assessed -Moisture (Laney-wound Skin Appearance) Assessed Assessed -Color (Laney-wound Skin Appearance) Assessed Assessed -Temperature (Laney-wound Skin No Abnormality No Abnormality Appearance) (Pt Warm) (Pt Warm) -Tenderness on Palpation (Laney-wound No No Skin Appearance) -Ulcer Cleansing Rinsed/ Rinsed/ Irrigated with Irrigated with Saline Saline -Foul Odor after Cleansing No No -Anesthetic Used 5% Lidocaine 5% Lidocaine Gel Gel WC - Nurse 2 - General Ulcer CM Notes Start: 04/07/25 13:26 Freq: Status: Active Protocol: Activity Type Activity Date Activity User E-sign Co-sign Detail Recorded Client Recorded Date Recorded By Document 04/07/25 13:41 [id number] 04/07/25 13:45 Document 04/14/25 14:11 [id number] 04/14/25 14:14 04/07/25 04/14/25 13:41 14:11 Wound Center Nurse 2 #4 l iSCHIAL -Time 13:44 14:11 -Correct Patient Yes Yes -Correct Side, Site, Position Yes Yes -Correct Procedure Yes Yes -Procedure Performed Yes Yes -Type of Procedure Debridement Debridement -Clinical Debridement Subcutaneous Subcutaneous -Tissue Removed Subcutaneous Subcutaneous -Post Debridement (cm) - Length 1.0 0.9 -Post Debridement (cm) - Width 1.4 0.6 -Post Debridement (cm) - Depth 0.1 0.1 -Total Square (Post) (cm) 1.40 0.54 -Area of Debridement (cm) - Length 1.0 0.9 -Area of Debridement (cm) - Width 1.4 0.6 -Total Square (Area) (cm) 1.40 0.54 -Tunneling No No -Undermining/Tunneling No No -Circular Undermining No No -Wound/Ulcer Outcome Not Healed Not Healed -Ulcer Cleansing Rinsed/ Irrigated with Saline -Foul Odor after Cleansing No No -Bioengineered Tissue No No -Bleeding Controlled with Pressure Pressure -Treatment Response Procedure Procedure Tolerated Well Tolerated Well -Offloading No No -Debridement - Subq, 1st 20sq cm Yes Yes Pain Scale: 0-10 Numeric Is Patient Pain Free? Yes Yes - Nurse 3 - General Ulcer D/C NN Start: 04/07/25 13:26 Freq: Status: Active Protocol: Activity Type Activity Date Activity User E-sign Co-sign Detail Recorded Client Recorded Date Recorded By Document 04/07/25 14:09 DL [id number] 04/07/25 14:10 DL Document 04/14/25 14:38 ML [id number] 04/14/25 14:39 ML 04/07/25 04/14/25 14:09 14:38 Wound Care Center Nurse 3 #4 l iSCHIAL -Ulcer Cleansing Rinsed/ Rinsed/ Irrigated with Irrigated with Saline Saline -Foul Odor after Cleansing No -Primary Dressing Applied Fibracol Plus Fibracol Plus 4x4,Silicone 4x4,Silicone Border Foam 6x6 Border Foam 6x6 -Other Dressing Skin Prep -Fibracol Plus 4x4 1 1 -Silicone Border Foam 6x6 1 1 Laney-Wound Care Barrier Treatment Response Procedure Tolerated Well Pain Scale: 0-10 Numeric Is Patient Pain Free? Yes Yes - Visit Discharge Discharge Condition Stable Ambulatory Status Wheelchair Transportation Private Auto Accompanied by family Lab / Micro Data Micro: Microbiology 04/07/25 13:43 Wound - Ischium Gram Stain - Final 04/07/25 13:43 Wound - Ischium Wound Culture - Final Meth. resistant Staph. aureus Enterococcus faecalis Corynebacterium jeikeium 04/07/25 13:43 Wound - Ischium Anaerobic Culture - Final Anaerobic cocci Charges/Coding Procedures Integumentary 111xxx-113xx: [id number] Casie subq tissue 20 sq cm/< Assessment/Plan Assessment/Plan (1) 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, stage 3: CODE(S): L89.323 - Pressure ulcer of left buttock, stage 3 (2) Pressure ulcer of ischium, stage 3: CODE(S): L89.303 - Pressure ulcer of unspecified buttock, stage 3 QUALIFIERS: Laterality: left Qualified Code(s): L89.323 - Pressure ulcer of left buttock, stage 3 (3) Paraplegia: CODE(S): G82.20 - Paraplegia, unspecified (4) Large B-cell lymphoma: CODE(S): C85.10 - Unspecified B-cell lymphoma, unspecified site (5) Chronic indwelling Gutierrez catheter: CODE(S): Z97.8 - Presence of other specified devices (6) Non-smoker: CODE(S): Z78.9 - Other specified health status (7) Hypertension: CODE(S): I10 - Essential (primary) hypertension (8) Debility: CODE(S): R53.81 - Other malaise (9) Myocardial infarct: CODE(S): I21.9 - Acute myocardial infarction, unspecified (10) Afib: CODE(S): I48.91 - Unspecified atrial fibrillation (11) Diffuse large B-cell lymphoma: CODE(S): C83.30 - Diffuse large B-cell lymphoma, unspecified site QUALIFIERS: Lymphoma site: extranodal excluding spleen and other solid organs Qualified Code(s): C83.39 - Diffuse large B-cell lymphoma, extranodal and solid organ sites (12) Chronic anticoagulation: CODE(S): Z79.01 - longterm (current) use of anticoagulants PLAN: Plan This is an 79-year-old paraplegic female with a stage III pressure ulceration atthe site of the left ischium. There is a moderate amount of inflammation and maceration about the ulceration. The patient's family indicates that this may be due to occasional leakage from the patient's Gutierrez catheter, accounting for moisture to the area of the ulceration. The patient's family is changing her undergarments frequently, and as necessary when moist. We are to continue the use of lightly moistened Fibracol topically to the ulcer on a daily basis. The patient and her family have been instructed in appropriate means of application. We are also to continue the use of a barrier protectant in the laney-ulcer area. The patient's family has been encouraged to continue changing her undergarmentsas necessary to avoid prolonged periods of moisture. Continued offloading measures have been advised. Measures are to be continued in an effort to reducethe effects of pressure, friction, and maceration. The patient has a Roho cushion and an air mattress, and frequent repositioning has been recommended. The patient's sacral ulceration remains healed. The patient has been advised tocontinue with a healthy diet and nutritional supplements. A culture from April 07, 2025, isolated methicillin-resistant Staph aureus, Enterococcus faecalis, Corynebacterium jeikeium, and an anaerobic cocci. The patient had initially been placed on Bactrim double strength, but has been switched to linezolid 600 mg p.o. every 12hours for 10 days. The patient is to follow-up in 1 week for reevaluation. Total time: 24 minutes 04/16/25 1054 Cosigner Signature (if applicable): CC: ~ Signed [facility]06-20-2025 History and physical note Author Oscar Steele [facility] Note Date/Time April 09, 2025 4:12 pm [facility] [address] [place] [id number] H&P Exam - Wound Care 04/09/25 1601 MR#: [id number] Acct: [id number] Name: CHRISTOPHER CORONEL Rep #:[id number] : 1945 79 From: Oscar Pascal PCP: Dr. Jennie Mcintyre MD Status:R EG RCR Location: History of Present Illness Date of Service: 04/07/25 Chief Complaint: Left ischial pressure ulceration, stage III History of Wound: This is an 79-year-old female, formerly cared for at the [facility] by a provider who has transferred to another facility. 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 She had progressive paraplegia. She went to TCU for acute rehab for this progressive paraplegia. During that time she had worsening sacral pressure sore with skin necrosis. Surgery 05/15/21 - Excision necrotic sacral pressure sore, Stage IV, with partialostectomy for osteomyelitis. Pathology from surgery on 05/15/21 of bone showed acute osteomyelitis. Operative culture, soft tissue, from 05/15/21 was positive for Escherichia coli,Klebsiella, Vanc. Resist. E. gallinarum, Vanc. Resist. E. faecalis. Operative culture, bone, from 05/15/21 was positive for Escherichia coli, Vanc. Resist. E. faecalis, Vanc. Resist. E. gallinarum. She was treated with Meropenem and Vancomycin. Linezolid was started after Vancomycin was stopped. Radiation from 05/17/21 - 06/12/21 18 treatments to T4-T7 area including paraspinal region. 06/06/21- Laparoscopic sigmoid colectomy with creation of end colostomy for fecaldiversion. She healed out her ulcers November 2023. She states that she was having issues with her urinary catheter leaking which then caused skin breakdown on her left ischial area a little before [facility]. They have been using dressing supplies that they had left over (Dakin's, selena, aquacel-ag). They thought there mightbe some improvement in the ulcer, but now that it has been almost a month, they came back for further evaluation and treatment. Wound culture from 11/04/24 positive for Staphylococcus haemolyticus, Staphylococcus epidermidis, Escherichia coli, Corynebacterium striatum, and Cutibacterium acnes and she was treated with Levaquin and Linezolid. The patient denies a history of congestive heart failure, cerebrovascular accident, diabetes mellitus, thyroid disease, pulmonary disease, and renal disease. She has suffered a myocardial infarction in the past, and has had coronary revascularization performed in 2018. She is on long-term systemic anticoagulation with warfarin. [facility] Medical History (Updated 04/09/25 @ 16:[address] Oscar Steele MD) Pressure ulcer of ischium, stage 3 Chronic anticoagulation History of echocardiogram Wears glasses Wears dentures Uses wheelchair Indwelling urethral catheter present Anemia Non-smoker History of edema Cardiology follow-up encounter Pressure ulcer COVID-19 Decubitus ulcer of left ischium, stage 2 Pressure ulcer of right ischium MCI (mild cognitive impairment) Adrenal disorder Decubitus ulcer of left ischium, stage 4 Chronic indwelling Gutierrez catheter Hypertension Pressure sore UTI (urinary tract infection) Adynamic ileus Abdominal pain History of radiation therapy Neuropathic pain Diffuse large B cell lymphoma Paraplegia Debility Pressure ulcer of sacral region, stage 4 Osteomyelitis of pelvis Myocardial infarct Afib Pressure ulcer of sacral region, unstageable Diffuse large B-cell lymphoma Paraplegia Home Medications ?Medication ?Instructions ?Recorded ?Last Taken ?Type losartan 100 mg tablet 50 mg PO DAILY HEART 1 12/23/24 History amiodarone 200 mg tablet 200 mg PO DAILY@1400 HEART 0 12/12/21 Unknown History gabapentin 100 mg capsule 100 mg PO BID 12/12/2112/23 History metoprolol succinate 50 mg 25 mg PO DAILY BP 12/12/21 12/23/24 History tablet,extended release 24 hr Lactobacillus acidophilus 10 10,000 mmu cells PO DAILY @1400 01/19/22 Unknown History billion cell capsule (Probiotic) supplement atorvastatin 40 mg tablet 40 mg PO QHS cholesterol 12/12 Unknown History MINGXIA RED 1 tsp PO DAILY 12/09/24 Unkn own History sennosides 8.6 mg capsule (senna) 17.2 mg PO QHS 12/09 Unknown History warfarin 2 mg tablet 2 mg PO DAILY 12/09/2412/17 History nystatin 100,000 unit/gram topical 1 applic topical BI D 10 days #30 01/20/25 Unknown Rx cream grams Allergy/AdvReac Type Severity Reaction Status Date / Time prednisone Allergy Intermediate atrial Verified 12/23/24 07:52 fibrillation Family History Father CHF (congestive heart failure) Myocardial infarction Mother CAD (coronary artery disease) Alzheimer disease Surgical History History of colectomy H/O Spinal surgery History of cholecystectomy S/P excisional debridement S/P cholecystectomy Hx of CABG Social History household members: family housing: house number of children: 5 Smoking Status: Never smoker alcohol intake: never substance use type: does not use what type of physical activity do you participate in: other details: leg therapy/hand weights frequency: 5-6 times per week chris/pentecostalism: Buddhist Vital Signs Vital Signs Vital Signs: Weight Weight: 150 lb 11.094 oz Body Mass Index (BMI) 25.0 Physical Exam Const alert, oriented x3, no apparent distress and average body habitus Constitutional Narrative: The patient's BMI is 25.1. General Appearance: cooperative, comfortable and well developed Orientation / Consciousness: awake, oriented to person, oriented to place and oriented to time HEENT normocephalic and head/scalp atraumatic Head and Scalp: normal to inspection, normocephalic and atraumatic Face and Sinus: normal facial exam Nose: external nose normal External Ear: external ears normal Eyes EOMs intact bilaterally General Eye: normal appearance of both eyes Neck full ROM Lymph Lymphatic: Negative for lymphedema Resp normal respiratory effort, normal air movement, no retractions and no use of accessory muscles Effort and Inspection: able to speak in complete sentences GI GI Narrative: The patient has a functional colostomy. Bladder / Kidney Exam: catheter in place Extremity Extremity Narrative: Upper extremities have full ROM. Paralyzed. Skin Wound Narrative: A pressure ulceration is noted on the left ischial region. It is full-thickness, through all layers of the dermis and into the subcutaneous tissues. This is a stage III pressure ulceration. There is no significant sign of infection or cellulitis. Ulcer margins are well beveled. Dimensions are documented elsewhere. It appears pink and healthy, with active granulation tissue. There is a small amount of bioburden. The laney-ulcer skin is erythematous, macerated, and excoriated. It appears to have worsened since the patient's last visit. Therefore, a swab culture has been obtained for aerobic and anaerobic bacterial growth. Neuro oriented x3 and CN's II-XII intact bilaterally Neuro Narrative: The patient is paraplegic. Sensorium / Orientation: awake, alert, oriented to person, oriented to place andoriented to time Speech: speech normal Psych mental status grossly normal, thought process normal and cooperative Appearance: appropriate Debridement Note Debridement Note Wound debrided: Left ischial pressure ulceration Laterality: Left Wound Grade/Stage: Stage III Type of Debridement: Excisional debridement Anesthesia Used: 5% Lidocaine Gel Depth: Down to and including healthy tissue and in the subcutaneous layer Percentage of wound debrided: 100 Instrument Used: 5mm curette Tissue Removed: Bioburden and devitalized tissue Severity: Fat Layer Exposed Amount of bleeding with debridement: Mild Bleeding Controlled with: Compression and gauze Patient tolerated procedure: Patient tolerated procedure well Debridement Free Text: Because of the increased erythema in the laney-ulcer area,a swab culture has been obtained for aerobic and anaerobic bacterial growth. Post-Debridement Measurements and Additional Note: Post-Debridement Measurements/Treatment - Nurse 1 - General Ulcer Assessment Start: 04/07/25 13:26 Freq: Status: Active Protocol: KRANTHI Activity Type Activity Date Activity User E-sign Co-sign Detail Recorded Client Recorded Date Recorded By Document 04/07/25 13:26 [facility] [id number] 04/07/25 13:29 [facility] 04/07/25 13:26 WC - Today's Visit Information Type of service Follow-up Visit (Physician/MANAGER OF PLANNING ) Arrival Mode Wheelchair Transfer Assistance Will Lift Accompanied by daughter and Patient Identification Verified (Name & Yes ) Patient Requires Transmission-Based No Precautions Height and Weight Body Mass Index (BMI) 25.0 BMI Classification Overweight Vital Signs Temperature (97.8 F-99.1 F) 98 F Temperature Source Temporal Pulse Rate (60-100) 59 L Pulse Location Monitor Respiratory Rate (12-18) 16 Respiratory rate source Observation Oxygen Delivery Method Room Air Blood Pressure (90/60-120/80) 140/74 H Blood Pressure Mean 96 Source Monitor Position Sitting Blood Pressure Location Right Arm History Since Last Visit- (Skip if this is Patient's initial visit) Have you changed medications since your No last visit? Any new allergies or adverse reactions No Had a fall/change in ADL's that may No increase risk of falls Signs or symptoms of abuse and/or No neglect since last visit Have you been in the hospital since your No last visit? Has dressing in place as prescribed Yes Has compression in place as prescribed N/A Has offloadiing in place as prescribed N/A Experienced any changes in pain level or No management Left Footwear Slipper Right Footwear Slipper Pain Scale: 0-10 Numeric Is Patient Pain Free? Yes - Nurse 1 - General Ulcer Measurement Start: 04/07/25 13:26 Freq: Status: Active Protocol: Activity Type Activity Date Activity User E-sign Co-sign Detail Recorded Client Recorded Date Recorded By Document 04/07/25 13:26 [facility] [id number] 04/07/25 13:29 [facility] 04/07/25 13:26 Wound Center Nurse 1 #4 l iSCHIAL -Combined with other wound No -Current Size (cm) - Length 2 -Current Size (cm) - Width 1.5 -Current Size (cm) - Depth 0.1 -Total Square Cm 3.0 -Date of Last Picture (Recall this 04/07/25 field) -Photo Taken Yes -Epithelialization None Present -Tunneling No -Undermining/Tunneling No -Circular Undermining No -Exudate Amt Medium -Exudate Type Serosanguineous -Wound Margin Distinct, Outline Attached -Granulation Amt Large (67-100%) -Granulation Quality Red -Slough/Fibrin No -Necrosis Amt None Present (0 %) -Texture (Laney-wound Skin Appearance) Assessed -Moisture (Laney-wound Skin Appearance) Assessed -Color (Laney-wound Skin Appearance) Assessed -Temperature (Laney-wound Skin No Abnormality Appearance) (Pt Warm) -Tenderness on Palpation (Laney-wound No Skin Appearance) -Ulcer Cleansing Rinsed/ Irrigated with Saline -Foul Odor after Cleansing No -Anesthetic Used 5% Lidocaine Gel WC - Nurse 2 - General Ulcer CM Notes Start: 04/07/25 13:26 Freq: Status: Active Protocol: Activity Type Activity Date Activity User E-sign Co-sign Detail Recorded Client Recorded Date Recorded By Document 04/07/25 13:41 [id number] 04/07/25 13:45 04/07/25 13:41 Wound Center Nurse 2 -Time 13:44 -Correct Patient Yes -Correct Side, Site, Position Yes -Correct Procedure Yes -Procedure Performed Yes -Type of Procedure Debridement -Clinical Debridement Subcutaneous -Tissue Removed Subcutaneous -Post Debridement (cm) - Length 1.0 -Post Debridement (cm) - Width 1.4 -Post Debridement (cm) - Depth 0.1 -Total Square (Post) (cm) 1.40 -Area of Debridement (cm) - Length 1.0 -Area of Debridement (cm) - Width 1.4 -Total Square (Area) (cm) 1.40 -Tunneling No -Undermining/Tunneling No -Circular Undermining No -Wound/Ulcer Outcome Not Healed -Ulcer Cleansing Rinsed/ Irrigated with Saline -Foul Odor after Cleansing No -Bioengineered Tissue No -Bleeding Controlled with Pressure -Treatment Response Procedure Tolerated Well -Offloading No -Debridement - Subq, 1st 20sq cm Yes Pain Scale: 0-10 Numeric Is Patient Pain Free? Yes NICOLAS - Nurse 3 - General Ulcer D/C NN Start: 04/07/25 13:26 Freq: Status: Active Protocol: Activity Type Activity Date Activity User E-sign Co-sign Detail Recorded Client Recorded Date Recorded By Document 04/07/25 14:09 DL [id number] 04/07/25 14:10 DL 04/07/25 14:09 Wound Care Center Nurse 3 #4 l iSCHIAL -Ulcer Cleansing Rinsed/ Irrigated with Saline -Foul Odor after Cleansing No -Primary Dressing Applied Fibracol Plus 4x4,Silicone Border Foam 6x6 -Other Dressing Skin Prep -Fibracol Plus 4x4 1 -Silicone Border Foam 6x6 1 Laney-Wound Care Barrier Treatment Response Procedure Tolerated Well Pain Scale: 0-10 Numeric Is Patient Pain Free? Yes WC - Visit Discharge Discharge Condition Stable Ambulatory Status Wheelchair Transportation Private Auto Accompanied by family Lab / Micro Data Micro: Microbiology 04/07/25 13:43 Wound - Ischium Gram Stain - Final 04/07/25 13:43 Wound - Ischium Wound Culture - Preliminary Staphylococcus aureus Gram positive organism Charges/Coding Procedures Integumentary [id number]: [id number] Casie subq tissue 20 sq cm/< Assessment/Plan Assessment/Plan (1) 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, stage 3: CODE(S): L89.323 - Pressure ulcer of left buttock, stage 3 (2) Pressure ulcer of ischium, stage 3: CODE(S): L89.303 - Pressure ulcer of unspecified buttock, stage 3 QUALIFIERS: Laterality: left Qualified Code(s): L89.323 - Pressure ulcer of left buttock, stage 3 (3) Paraplegia: CODE(S): G82.20 - Paraplegia, unspecified (4) Large B-cell lymphoma: CODE(S): C85.10 - Unspecified B-cell lymphoma, unspecified site (5) Chronic indwelling Gutierrez catheter: CODE(S): Z97.8 - Presence of other specified devices (6) Non-smoker: CODE(S): Z78.9 - Other specified health status (7) Hypertension: CODE(S): I10 - Essential (primary) hypertension (8) Debility: CODE(S): R53.81 - Other malaise (9) Myocardial infarct: CODE(S): I21.9 - Acute myocardial infarction, unspecified (10) Afib: CODE(S): I48.91 - Unspecified atrial fibrillation (11) Diffuse large B-cell lymphoma: CODE(S): C83.30 - Diffuse large B-cell lymphoma, unspecified site QUALIFIERS: Lymphoma site: extranodal excluding spleen and other solid organs Qualified Code(s): C83.39 - Diffuse large B-cell lymphoma, extranodal and solid organ sites (12) Chronic anticoagulation: 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 The laney-ulcer inflammation and maceration has recurred, and is worse than noted at the patient's prior visit. The patient's family indicates that this may be due to leakage from the patient's Gutierrez catheter, accounting for moisture to the area of the ulceration. The patient's family is also changing her undergarments frequently, and as necessary when moist. We are to continue the use of lightly moistened Fibracol topically to the ulcer on a daily basis. The patient and her family have been instructed in appropriate means of application. The patient's family has been encouraged to continue changing her undergarments as necessary to avoid prolonged periods of moisture. We are to continue the use of a skin barrier protectant to the laney-ulcer skin as well. Continued offloading measures have been advised. Measures are to be continued in an effort to reduce the effects of pressure, friction, and maceration. The patient has a Roho cushion and an air mattress, and frequent repositioning has been recommended. The patient's sacral ulceration remainshealed. The patient has been advised to continue with a healthy diet and nutritional supplements. A swab culture has been obtained today, the results ofwhich will be awaited. The patient is to follow-up in 1 week for reevaluation. Total time: 26 minutes 04/09/25 1612 <Electronically signed by Oscar Steele MD> Cosigner Signature (if applicable): CC: ~ Signed [facility] Work Phone: [phone] History and physical note [facility] [address] [place] [address] [place] [address] H&P Exam - Wound Care 04/09/25 1601 MR#: [id number] Acct: [id number] Name: CHRISTOPHER CORONEL Rep #:[id number] : 1945 79 From: Oscar Pascal PCP: Dr. Jennie Mcintyre MD Status:R EG RCR Location: History of Present Illness Date of Service: 04/07/25 Chief Complaint: Left ischial pressure ulceration, stage III History of Wound: This is an 79-year-old female, formerly cared for at the [facility] by a provider who has transferred to another facility. 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 She had progressive paraplegia. She went to TCU for acute rehab for this progressive paraplegia. During that time she had worsening sacral pressure sore with skin necrosis. Surgery 05/15/21 - Excision necrotic sacral pressure sore, Stage IV, with partialostectomy for osteomyelitis. Pathology from surgery on 05/15/21 of bone showed acute osteomyelitis. Operative culture, soft tissue, from 05/15/21 was positive for Escherichia coli,Klebsiella, Vanc. Resist. E. gallinarum, Vanc. Resist. E. faecalis. Operative culture, bone, from 05/15/21 was positive for Escherichia coli, Vanc. Resist. E. faecalis,Vanc. Resist. E. gallinarum. She was treated with Meropenem and Vancomycin. Linezolid was started after Vancomycin was stopped. Radiation from 05/17/21 - 06/12/21 18 treatments to T4-T7 area including paraspinal region. 06/06/21- Laparoscopic sigmoid colectomy with creation of end colostomy for fecaldiversion. She healed out her ulcers November 2023. She states that she was having issues with her urinary catheter leaking which then caused skin breakdown on her left ischial area a little before [place]. They have been using dressing supplies that they had left over (Dakin's, selena, aquacel-ag). They thought there mightbe some improvement in the ulcer, but now that it has been almost a month, they came back for further evaluation and treatment. Wound culture from 11/04/24 positive for Staphylococcus haemolyticus, Staphylococcus epidermidis, Escherichia coli, Corynebacterium striatum, and Cutibacterium acnes and she was treated with Levaquin and Linezolid. The patient denies a history of congestive heart failure, cerebrovascular accident, diabetes mellitus, thyroid disease, pulmonary disease, and renal disease. She has suffered a myocardial infarction in the past, and has had coronary revascularization performed in 2018. She is on long-term systemic a nticoagulation with warfarin. [facility] Medical History (Updated 04/09/25 @ 16:[address] Oscar Steele MD) Pressure ulcer of ischium, stage 3 Chronic anticoagulation History of echocardiogram Wears glasses Wears dentures Uses wheelchair Indwelling urethral catheter present Anemia Non-smoker History of edema Cardiology follow-up encounter Pressure ulcer COVID-19 Decubitus ulcer of left ischium, stage 2 Pressure ulcer of right ischium MCI (mild cognitive impairment) Adrenal disorder Decubitus ulcer of left ischium, stage 4 Chronic indwelling Gutierrez catheter Hypertension Pressure sore UTI (urinary tract infection) Adynamic ileus Abdominal pain History of radiation therapy Neuropathic pain Diffuse large B cell lymphoma Paraplegia Debility Pressure ulcer of sacral region, stage 4 Osteomyelitis of pelvis Myocardial infarct Afib Pressure ulcer of sacral region, unstageable Diffuse large B-cell lymphoma Paraplegia Home Medications ?Medication ?Instructions ?Recorded ?Last Taken ?Type losartan 100 mg tablet 50 mg PO DAILY HEART 1 12/23/24 History amiodarone 200 mg tablet 200 mg PO DAILY@1400 HEART 0 12/12/21 Unknown History gabapentin 100 mg capsule 100 mg PO BID 12/12/2112/23 History metoprolol succinate 50 mg 25 mg PO DAILY BP 12/12/21 12/23/24 History tablet,extended release 24 hr Lactobacillus acidophilus 10 10,000 mmu cells PO DAILY @1400 01/19/22 Unknown History billion cell capsule (Probiotic) supplement atorvastatin 40 mg tablet 40 mg PO QHS cholesterol 12/12 Unknown History MINGXIA RED 1 tsp PO DAILY 12/09/24 Unkn own History sennosides 8.6 mg capsule (senna) 17.2 mg PO QHS 12/09 Unknown History warfarin 2 mg tablet 2 mg PO DAILY 12/09/2412/17 History nystatin 100,000 unit/gram topical 1 applic topical BI D 10 days #30 01/20/25 Unknown Rx cream grams Allergy/AdvReac Type Severity Reaction Status Date / Time prednisone Allergy Intermediate atrial Verified 12/23/24 07:52 fibrillation Family History Father CHF (congestive heart failure) Myocardial infarction Mother CAD (coronary artery disease) Alzheimer disease Surgical History History of colectomy H/O Spinal surgery History of cholecystectomy S/P excisional debridement S/P cholecystectomy Hx of CABG Social History household members: family housing: house number of children: 5 Smoking Status: Never smoker alcohol intake: never substance use type: does not use what type of physical activity do you participate in: other details: leg therapy/hand weights frequency: 5-6 times per week chris/pentecostalism: Buddhist Vital Signs Vital Signs Vital Signs: Weight Weight: 150 lb 11.094 oz Body Mass Index (BMI) 25.0 Physical Exam Const alert, oriented x3, no apparent distress and average body habitus Constitutional Narrative: The patient's BMI is 25.1. General Appearance: cooperative, comfortable and well developed Orientation / Consciousness: awake, oriented to person, oriented to place and oriented to time HEENT normocephalic and head/scalp atraumatic Head and Scalp: normal to inspection, normocephalic and atraumatic Face and Sinus: normal facial exam Nose: external nose normal External Ear: external ears normal Eyes EOMs intact bilaterally General Eye: normal appearance of both eyes Neck full ROM Lymph Lymphatic: Negative for lymphedema Resp normal respiratory effort, normal air movement, no retractions and no use of accessory muscles Effort and Inspection: able to speak in complete sentences GI GI Narrative: The patient has a functional colostomy. Bladder / Kidney Exam: catheter in place Extremity Extremity Narrative: Upper extremities have full ROM. Paralyzed. Skin Wound Narrative: A pressure ulceration is noted on the left ischial region. It is full-thickness, through all layersof the dermis and into the subcutaneous tissues. This is a stage III pressure ulceration. There is no significant sign of infection or cellulitis. Ulcer margins are well beveled. Dimensions are documented elsewhere. It appears pink and healthy, with active granulation tissue. There is a small amount of bioburden. The laney-ulcer skin is erythematous, macerated, and excoriated. It appears to have worsened since the patient's last visit. Therefore, a swab culture has been obtained for aerobic and anaerobic bacterial growth. Neuro oriented x3 and CN's II-XII intact bilaterally Neuro Narrative: The patient is paraplegic. Sensorium / Orientation: awake, alert, oriented to person, oriented to place andoriented to time Speech: speech normal Psych mental status grossly normal, thought process normal and cooperative Appearance: appropriate Debridement Note Debridement Note Wound debrided: Left ischial pressure ulceration Laterality: Left Wound Grade/Stage: Stage III Type of Debridement: Excisional debridement Anesthesia Used: 5% Lidocaine Gel Depth: Down to and including healthy tissue and in the subcutaneous layer Percentage of wound debrided: 100 Instrument Used: 5mm curette Tissue Removed: Bioburden and devitalized tissue Severity: Fat Layer Exposed Amount of bleeding with debridement: Mild Bleeding Controlled with: Compression and gauze Patient tolerated procedure: Patient tolerated procedure well Debridement Free Text: Because of the increased erythema in the laney-ulcer area,a swab culture has been obtained for aerobic and anaerobic bacterial growth. Post-Debridement Measurements and Additional Note: Post-Debridement Measurements/Treatment - Nurse 1 - General Ulcer Assessment Start: 04/07/25 13:26 Freq: Status: Active Protocol: .LOWEXT Activity Type Activity Date Activity User E-sign Co-sign Detail Recorded Client Recorded Date Recorded By Document 04/07/25 13:26 [facility] [id number] 04/07/25 13:29 [facility] 04/07/25 13:26 - Today's Visit Information Type of service Follow-up Visit (Physician/MANAGER OF PLANNING ) Arrival Mode Wheelchair Transfer Assistance Will Lift Accompanied by daughter and Patient Identification Verified (Name & Yes ) Patient Requires Transmission-Based No Precautions Height and Weight Body Mass Index (BMI) 25.0 BMI Classification Overweight Vital Signs Temperature (97.8 F-99.1 F) 98 F Temperature Source Temporal Pulse Rate (60-100) 59 L Pulse Location Monitor Respiratory Rate (12-18) 16 Respiratory rate source Observation Oxygen Delivery Method Room Air Blood Pressure (90/60-120/80) 140/74 H Blood Pressure Mean 96 Source Monitor Position Sitting Blood Pressure Location Right Arm History Since Last Visit- (Skip if this is Patient's initial visit) Have you changed medications since your No last visit? Any new allergies or adverse reactions No Had a fall/change in ADL's that may No increase risk of falls Signs or symptoms of abuse and/or No neglect since last visit Have you been in the hospital since your No last visit? Has dressing in place as prescribed Yes Has compression in place as prescribed N/A Has offloadiing in place as prescribed N/A Experienced any changes in pain level or No management Left Footwear Slipper Right Footwear Slipper Pain Scale: 0-10 Numeric Is Patient Pain Free? Yes WC - Nurse 1 - General Ulcer Measurement Start: 04/07/25 13:26 Freq: Status: Active Protocol: Activity Type Activity Date Activity User E-sign Co-sign Detail Recorded Client Recorded Date Recorded By Document 04/07/25 13:26 [facility] [id number] 04/07/25 13:29 [facility] 04/07/25 13:26 Wound Center Nurse 1 #4 l iSCHIAL -Combined with other wound No -Current Size (cm) - Length 2 -Current Size (cm) - Width 1.5 -Current Size (cm) - Depth 0.1 -Total Square Cm 3.0 -Date of Last Picture (Recall this 04/07/25 field) -Photo Taken Yes -Epithelialization None Present -Tunneling No -Undermining/Tunneling No -Circular Undermining No -Exudate Amt Medium -Exudate Type Serosanguineous -Wound Margin Distinct, Outline Attached -Granulation Amt Large (67-100%) -Granulation Quality Red -Slough/Fibrin No -Necrosis Amt None Present (0 %) -Texture (Laney-wound Skin Appearance) Assessed -Moisture (Laney-wound Skin Appearance) Assessed -Color (Laney-wound Skin Appearance) Assessed -Temperature (Laney-wound Skin No Abnormality Appearance) (Pt Warm) -Tenderness on Palpation (Laney-wound No Skin Appearance) -Ulcer Cleansing Rinsed/ Irrigated with Saline -Foul Odor after Cleansing No -Anesthetic Used 5% Lidocaine Gel WC - Nurse 2 - General Ulcer CM Notes Start: 04/07/25 13:26 Freq: Status: Active Protocol: Activity Type Activity Date Activity User E-sign Co-sign Detail Recorded Client Recorded Date Recorded By Document 04/07/25 13:41 [id number] 04/07/25 13:45 04/07/25 13:41 Wound Center Nurse 2 -Time 13:44 -Correct Patient Yes -Correct Side, Site, Position Yes -Correct Procedure Yes -Procedure Performed Yes -Type of Procedure Debridement -Clinical Debridement Subcutaneous -Tissue Removed Subcutaneous -Post Debridement (cm) - Length 1.0 -Post Debridement (cm) - Width 1.4 -Post Debridement (cm) - Depth 0.1 -Total Square (Post) (cm) 1.40 -Area of Debridement (cm) - Length 1.0 -Area of Debridement (cm) - Width 1.4 -Total Square (Area) (cm) 1.40 -Tunneling No -Undermining/Tunneling No -Circular Undermining No -Wound/Ulcer Outcome Not Healed -Ulcer Cleansing Rinsed/ Irrigated with Saline -Foul Odor after Cleansing No -Bioengineered Tissue No -Bleeding Controlled with Pressure -Treatment Response Procedure Tolerated Well -Offloading No -Debridement - Subq, 1st 20sq cm Yes Pain Scale: 0-10 Numeric Is Patient Pain Free? Yes - Nurse 3 - General Ulcer D/C NN Start: 04/07/25 13:26 Freq: Status: Active Protocol: Activity Type Activity Date Activity User E-sign Co-sign Detail Recorded Client Recorded Date Recorded By Document 04/07/25 14:09 [id number] 04/07/25 14:10 04/07/25 14:09 Wound Care Center Nurse 3 #4 l iSCHIAL -Ulcer Cleansing Rinsed/ Irrigated with Saline -Foul Odor after Cleansing No -Primary Dressing Applied Fibracol Plus 4x4,Silicone Border Foam 6x6 -Other Dressing Skin Prep -Fibracol Plus 4x4 1 -Silicone Border Foam 6x6 1 Laney-Wound Care Barrier Treatment Response Procedure Tolerated Well Pain Scale: 0-10 Numeric Is Patient Pain Free? Yes - Visit Discharge Discharge Condition Stable Ambulatory Status Wheelchair Transportation Private Auto Accompanied by family Lab / Micro Data Micro: Microbiology 04/07/25 13:43 Wound - Ischium Gram Stain - Final 04/07/25 13:43 Wound - Ischium Wound Culture - Preliminary Staphylococcus aureus Gram positive organism Charges/Coding Procedures Integumentary 111xxx-113xx: [id number] Casie subq tissue 20 sq cm/< Assessment/Plan Assessment/Plan (1) 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, stage 3: CODE(S): L89.323 - Pressure ulcer of left buttock, stage 3 (2) Pressure ulcer of ischium, stage 3: CODE(S): L89.303 - Pressure ulcer of unspecified buttock, stage 3 QUALIFIERS: Laterality: left Qualified Code(s): L89.323 - Pressure ulcer of left buttock, stage 3 (3) Paraplegia: CODE(S): G82.20 - Paraplegia, unspecified (4) Large B-cell lymphoma: CODE(S): C85.10 - Unspecified B-cell lymphoma, unspecified site (5) Chronic indwelling Gutierrez catheter: CODE(S): Z97.8 - Presence of other specified devices (6) Non-smoker: CODE(S): Z78.9 - Other specified health status (7) Hypertension: CODE(S): I10 - Essential (primary) hypertension (8) Debility: CODE(S): R53.81 - Other malaise (9) Myocardial infarct: CODE(S): I21.9 - Acute myocardial infarction, unspecified (10) Afib: CODE(S): I48.91 - Unspecified atrial fibrillation (11) Diffuse large B-cell lymphoma: CODE(S): C83.30 - Diffuse large B-cell lymphoma, unspecified site QUALIFIERS: Lymphoma site: extranodal excluding spleen and other solid organs Qualified Code(s): C83.39 - Diffuse large B-cell lymphoma, extranodal and solid organ sites (12) Chronic anticoagulation: CODE(S): Z79.01 - longterm (current) use of anticoagulants PLAN: Plan This is an 79-year-old paraplegic female with a stage III pressure ulceration atthe site of the left ischium. The laney-ulcer inflammation and maceration has recurred, and is worse than noted at the patient's prior visit. The patient's family indicates that this may be due to leakage from the patient's Gutierrez catheter, accounting for moisture to the area of the ulceration. The patient's family is also changing her undergarments frequently, and as necessary when moist. We are to continue the use of lightly moistened Fibracol topically to the ulcer on a daily basis. The patient and her family have been instructed in appropriate means of application. The patient's family has been encouraged to co ntinue changing her undergarments as necessary to avoid prolonged periods of moisture. We are to continue the use of a skin barrier protectant to the laney- ulcer skin as well. Continued offloading measures have been advised. Measures are to be continued in an effort to reduce the effects of pressure, friction, and maceration. The patient has a Roho cushion and an air mattress, and frequent repositioning has been recommended. The patient's sacral ulceration remainshealed. The patient has been advised to continue with a healthy diet and nutritional supplements. A swab culture has been obtained today, the results ofwhich will be awaited. The patient is to follow-up in 1 week for reevaluation. Total time: 26 minutes 04/09/25 1612 Cosigner Signature (if applicable): CC: ~ Signed [facility]05-30-2025 History and physical note Author Oscar Steele [facility] Note Date/Time March 19, 2025 12:44 pm [facility] [address] [place] [address] H&P Exam - Wound Care 03/19/25 1239 MR#: [id number] Acct: [id number] Name: CHRISTOPHER CORONEL Rep #:[id number] : 1945 79 From: Oscar Pascal PCP: Dr. Jennie Mcintyre MD Status:R [facility] Location: History of Present Illness Date of Service: 03/17/25 Chief Complaint: Left ischial pressure ulceration, stage III History of Wound: This is an 79-year-old female, [facility] who has transferred to another facility. 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 She had progressive paraplegia. She went to TCU for acute rehab for this progressive paraplegia. During that time she had worsening sacral pressure sore with skin necrosis. Surgery 05/15/21 - Excision necrotic sacral pressure sore, Stage IV, with partialostectomy for osteomyelitis. Pathology from surgery on 05/15/21 of bone showed acute osteomyelitis. Operative culture, soft tissue, from 05/15/21 was positive for Escherichia coli,Klebsiella, Vanc. Resist. E. gallinarum, Vanc. Resist. E. faecalis. Operative culture, bone, from 05/15/21 was positive for Escherichia coli, Vanc. Resist. E. faecalis, Vanc. Resist. E. gallinarum. She was treated with Meropenem and Vancomycin. Linezolid was started after Vancomycin was stopped. Radiation from 05/17/21 - 06/12/21 18 treatments to T4-T7 area including paraspinal region. 06/06/21- Laparoscopic sigmoid colectomy with creation of end colostomy for fecaldiversion. She healed out her ulcers November 2023. She states that she was having issues with her urinary catheter leaking which then caused skin breakdown on her left ischial area a little before Antoine. They have been using dressing supplies that they had left over (Dakin's, selena, aquacel-ag). They thought there mightbe some improvement in the ulcer, but now that it has been almost a month, they came back for further evaluation and treatment. Wound culture from 11/04/24 positive for Staphylococcus haemolyticus, Staphylococcus epidermidis, Escherichia coli, Corynebacterium striatum, and Cutibacterium acnes and she was treated with Levaquin and Linezolid. The patient denies a history of congestive heart failure, cerebrovascular accident, diabetes mellitus, thyroid disease, pulmonary disease, and renal disease. She has suffered a myocardial infarction in the past, and has had coronary revascularization performed in 2018. She is on long-term systemic anticoagulation with warfarin. [facility] Medical History Chronic anticoagulation History of echocardiogram Wears glasses Wears dentures Uses wheelchair Indwelling urethral catheter present Anemia Non-smoker History of edema Cardiology follow-up encounter Pressure ulcer COVID-19 Decubitus ulcer of left ischium, stage 2 Pressure ulcer of right ischium MCI (mild cognitive impairment) Adrenal disorder Decubitus ulcer of left ischium, stage 4 Chronic indwelling Gutierrez catheter Hypertension Pressure sore UTI (urinary tract infection) Adynamic ileus Abdominal pain History of radiation therapy Neuropathic pain Diffuse large B cell lymphoma Paraplegia Debility Pressure ulcer of sacral region, stage 4 Osteomyelitis of pelvis Myocardial infarct Afib Pressure ulcer of sacral region, unstageable Diffuse large B-cell lymphoma Paraplegia Home Medications ?Medication ?Instructions ?Recorded ?Last Taken ?Type losartan 100 mg tablet 50 mg PO DAILY HEART 1 12/23/24 History amiodarone 200 mg tablet 200 mg PO DAILY@1400 HEART 0 12/12/21 Unknown History gabapentin 100 mg capsule 100 mg PO BID 12/12/2112/23 History metoprolol succinate 50 mg 25 mg PO DAILY BP 12/12/21 12/23/24 History tablet,extended release 24 hr Lactobacillus acidophilus 10 10,000 mmu cells PO DAILY @1400 01/19/22 Unknown History billion cell capsule (Probiotic) supplement atorvastatin 40 mg tablet 40 mg PO QHS cholesterol 12/12 Unknown History MINGXIA RED 1 tsp PO DAILY 12/09/24 Unkn own History sennosides 8.6 mg capsule (senna) 17.2 mg PO QHS 12/09 Unknown History warfarin 2 mg tablet 2 mg PO DAILY 12/09/2412/17 History nystatin 100,000 unit/gram topical 1 applic topical BI D 10 days #30 01/20/25 Unknown Rx cream grams Allergy/AdvReac Type Severity Reaction Status Date / Time prednisone Allergy Intermediate atrial Verified 12/23/24 07:52 fibrillation Family History Father CHF (congestive heart failure) Myocardial infarction Mother CAD (coronary artery disease) Alzheimer disease Surgical History History of colectomy H/O Spinal surgery History of cholecystectomy S/P excisional debridement S/P cholecystectomy Hx of CABG Social History household members: family housing: house number of children: 5 Smoking Status: Never smoker alcohol intake: never substance use type: does not use what type of physical activity do you participate in: other details: leg therapy/hand weights frequency: 5-6 times per week chris/pentecostalism: Buddhist Vital Signs Vital Signs Vital Signs: Weight Weight: 150 lb 11.094 oz Body Mass Index (BMI) 25.0 Physical Exam Const alert, oriented x3, no apparent distress and average body habitus Constitutional Narrative: The patient's BMI is 25.1. General Appearance: cooperative, comfortable and well developed Orientation / Consciousness: awake, oriented to person, oriented to place and oriented to time HEENT normocephalic and head/scalp atraumatic Head and Scalp: normal to inspection, normocephalic and atraumatic Face and Sinus: normal facial exam Nose: external nose normal External Ear: external ears normal Eyes EOMs intact bilaterally General Eye: normal appearance of both eyes Neck full ROM Lymph Lymphatic: Negative for lymphedema Resp normal respiratory effort, normal air movement, no retractions and no use of accessory muscles Effort and Inspection: able to speak in complete sentences GI GI Narrative: The patient has a functional colostomy. Bladder / Kidney Exam: catheter in place Extremity Extremity Narrative: Upper extremities have full ROM. Paralyzed. Skin Wound Narrative: A pressure ulceration is noted on the left ischial region. It is full-thickness, through all layers of the dermis and into the subcutaneous tissues. This is a stage III pressure ulceration. There is no significant sign of infection or cellulitis. Ulcer margins are well beveled. Dimensions are documented elsewhere. The ulceration has decreased in size since the last visit. It appears pink and healthy, with active granulation tissue. There is asmall amount of bioburden. The reddened, macerated, and inflamed laney-ulcer skin is much improved, and now resolved. The ulceration in the sacral area remains healed and epithelialized. Neuro oriented x3 and CN's II-XII intact bilaterally Neuro Narrative: The patient is paraplegic. Sensorium / Orientation: awake, alert, oriented to person, oriented to place andoriented to time Speech: speech normal Psych mental status grossly normal, thought process normal and cooperative Appearance: appropriate Debridement Note Debridement Note Wound debrided: Left ischial pressure ulceration Laterality: Left Wound Grade/Stage: Stage III Type of Debridement: Excisional debridement Anesthesia Used: 5% Lidocaine Gel Depth: Down to and including healthy tissue and in the subcutaneous layer Percentage of wound debrided: 100 Instrument Used: 5mm curette Tissue Removed: Bioburden and devitalized tissue Severity: Fat Layer Exposed Amount of bleeding with debridement: Mild Bleeding Controlled with: Compression and gauze Patient tolerated procedure: Patient tolerated procedure well Post-Debridement Measurements and Additional Note: Post-Debridement Measurements/Treatment WC - Nurse 1 - General Ulcer Assessment Start: 02/24/25 13:11 Freq: Status: Active Protocol: KRANTHI Activity Type Activity Date Activity User E-sign Co-sign Detail Recorded Client Recorded Date Recorded By Document 02/24/25 13:11 DL [id number] 02/24/25 13:16 DL Document 03/03/25 13:42 KW [id number] 03/03/25 13:43 KW Document 03/17/25 13:48 DL [id number] 03/17/25 13:49 DL 02/24/25 03/03/25 03/17/25 13:11 13:42 13:48 WC - Today's Visit Information Type of service Follow-up Visit Follow-up Visit Follow-up Visit (Physician/MANAGER OF PLANNING (Physician/MANAGER OF PLANNING (Physician/MANAGER OF PLANNING ) ) ) Arrival Mode Wheelchair Wheelchair Wheelchair Transfer Assistance Will Lift Will Lift Will Lift Transfer Assist (Other) x2 x2 Patient Identification Verified (Name & Yes Yes Yes ) Patient Requires Transmission-Based No No Precautions Height and Weight Body Mass Index (BMI) 25.0 25.0 25.0 BMI Classification Overweight Overweight Overweight Vital Signs Temperature (97.8 F-99.1 F) 96.9 F L 96.2 F L 97.4 F L Temperature Source Temporal Temporal Temporal Pulse Rate (60-100) 60 58 L 62 Pulse Location Monitor Monitor Monitor Respiratory Rate (12-18) 16 18 18 Respiratory rate source Observation Observation Observation Oxygen Delivery Method Room Air Blood Pressure (90/60-120/80) 121/52 H 150/69 H 127/71 H Blood Pressure Mean 75 96 89 Source Monitor Monitor Monitor Position Semi-Fowlers Blood Pressure Location Left Arm History Since Last Visit- (Skip if this is Patient's initial visit) Have you changed medications since your No No No last visit? Any new allergies or adverse reactions No No No Had a fall/change in ADL's that may No No No increase risk of falls Signs or symptoms of abuse and/or No No No neglect since last visit Have you been in the hospital since your No No No last visit? Has dressing in place as prescribed Yes Yes Yes Has compression in place as prescribed N/A N/A N/A Has offloadiing in place as prescribed Yes N/A Yes Experienced any changes in pain level or No No No management Left Footwear No Footwear Right Footwear No Footwear Pain Scale: 0-10 Numeric Is Patient Pain Free? Yes Yes Yes WC - Nurse 1 - General Ulcer Measurement Start: 02/24/25 13:11 Freq: Status: Active Protocol: Activity Type Activity Date Activity User E-sign Co-sign Detail Recorded Client Recorded Date Recorded By Document 02/24/25 13:11 DL [id number] 02/24/25 13:16 DL Document 03/03/25 13:42 KW [id number] 03/03/25 13:43 KW Document 03/17/25 13:48 DL [id number] 03/17/25 13:49 DL 02/24/25 03/03/25 03/17/25 13:11 13:42 13:48 Wound Center Nurse 1 #1 Sacral cluster -Current Size (cm) - Length 0.1 -Current Size (cm) - Width 0.1 -Current Size (cm) - Depth 0.1 -Total Square Cm 0.01 -Photo Taken Yes -Exudate Amt None Present -Wound Margin Flat & Intact -Granulation Amt Large (67-100%) -Granulation Quality Pale,[place] -Necrosis Amt None Present (0 %) -Structure Exposed N/A -Texture (Laney-wound Skin Appearance) Scarring -Moisture (Laney-wound Skin Appearance) No Abnormality -Color (Laney-wound Skin Appearance) Assessed -Temperature (Laney-wound Skin No Abnormality Appearance) (Pt Warm) -Tenderness on Palpation (Laney-wound No Skin Appearance) -Ulcer Cleansing Soap and Water -Foul Odor after Cleansing No #4 l iSCHIAL -Current Size (cm) - Length 2.5 1 1.2 -Current Size (cm) - Width 2.2 0.3 0.3 -Current Size (cm) - Depth 0.1 0.1 0.1 -Total Square Cm 5.50 0.3 0.36 -Date of Last Picture (Recall this 03/03/25 field) -Photo Taken Yes Yes -Exudate Amt Medium Small Small -Exudate Type Serosanguineous Serosanguineous -Wound Margin Distinct, Distinct, Distinct, Outline Outline Outline Attached Attached Attached -Granulation Amt Medium (34-66%) Large (67-100%) Large (67-100%) -Granulation Quality Red Red [place] -Necrosis Amt Medium (34-66%) None Present (0 %) -Necrotic Tissue Type Adherent Slough -Structure Exposed N/A N/A -Texture (Laney-wound Skin Appearance) Scarring Assessed Scarring -Moisture (Laney-wound Skin Appearance) No Abnormality Assessed No Abnormality -Color (Laney-wound Skin Appearance) No Abnormality Assessed No Abnormality -Temperature (Laney-wound Skin No Abnormality No Abnormality No Abnormality Appearance) (Pt Warm) (Pt Warm) (Pt Warm) -Tenderness on Palpation (Laney-wound No No No Skin Appearance) -Ulcer Cleansing Soap and Water Soap and Water Rinsed/ Irrigated with Saline -Foul Odor after Cleansing No No No -Anesthetic Used 5% Lidocaine 5% Lidocaine 5% Lidocaine Gel Gel Gel WC - Nurse 2 - General Ulcer CM Notes Start: 02/24/25 13:11 Freq: Status: Active Protocol: Activity Type Activity Date Activity User E-sign Co-sign Detail Recorded Client Recorded Date Recorded By Document 02/24/25 13:30 [id number] 02/24/25 13:35 Document 03/03/25 13:51 [id number] 03/03/25 13:54 Document 03/17/25 14:31 [id number] 03/17/25 14:31 02/24/25 03/03/25 03/17/25 13:30 13:51 14:31 Wound Center Nurse 2 #1 Sacral cluster -Time 13:32 -Correct Patient Yes -Correct Side, Site, Position Yes -Correct Procedure No -Procedure Performed No -Tunneling No -Undermining/Tunneling No -Circular Undermining No -Wound/Ulcer Outcome Healed- Epithelialized -Ulcer Cleansing Not Cleansed -Foul Odor after Cleansing No -Bioengineered Tissue No -Bleeding Controlled with NA -Offloading No #4 l iSCHIAL -Time 13:30 13:52 14:31 -Correct Patient Yes Yes Yes -Correct Side, Site, Position Yes Yes Yes -Correct Procedure Yes Yes Yes -Procedure Performed Yes Yes Yes -Type of Procedure Debridement Debridement Debridement -Clinical Debridement Subcutaneous Subcutaneous Subcutaneous -Tissue Removed Subcutaneous Subcutaneous Subcutaneous -Post Debridement (cm) - Length 3.5 1.2 0.5 -Post Debridement (cm) - Width 2.0 0.5 1.5 -Post Debridement (cm) - Depth 0.1 0.1 0.1 -Total Square (Post) (cm) 7.00 0.60 0.75 -Area of Debridement (cm) - Length 3.5 1.2 0.5 -Area of Debridement (cm) - Width 2.0 0.5 1.5 -Total Square (Area) (cm) 7.00 0.60 0.75 -Tunneling No No No -Undermining/Tunneling No No No -Circular Undermining No No No -Wound/Ulcer Outcome Not Healed Not Healed Not Healed -Ulcer Cleansing Rinsed/ Rinsed/ Rinsed/ Irrigated with Irrigated with Irrigated with Saline Saline Saline -Foul Odor after Cleansing No No No -Bioengineered Tissue No No No -Bleeding Controlled with Pressure Pressure Pressure -Treatment Response Procedure Procedure Procedure Tolerated Well Tolerated Well Tolerated Well -Offloading No No No -Assistive Device(s) Wheelchair -Pressure Reduction Wheelchair Wheelchair cushion cushion -Debridement - Subq, 1st 20sq cm Yes Yes Yes Pain Scale: 0-10 Numeric Is Patient Pain Free? Yes Yes Yes - Nurse 3 - General Ulcer D/C NN Start: 02/24/25 13:11 Freq: Status: Active Protocol: Activity Type Activity Date Activity User E-sign Co-sign Detail Recorded Client Recorded Date Recorded By Document 03/03/25 13:59 GM [id number] 03/03/25 14:00 GM Document 03/17/25 14:41 ML [id number] 03/17/25 14:46 ML 03/03/25 03/17/25 13:59 14:41 Wound Care Center Nurse 3 #4 l iSCHIAL -Ulcer Cleansing Not Cleansed Rinsed/ Irrigated with Saline -Foul Odor after Cleansing No -Primary Dressing Applied Fibracol Plus Fibracol Plus 4x4,Silicone 4x4,Silicone Border Foam 4x4 Border Foam 4x4 -Fibracol Plus 4x4 2 1 -Silicone Border Foam 4x4 1 1 Pain Scale: 0-10 Numeric Is Patient Pain Free? Yes Yes - Visit Discharge Discharge Condition Stable Ambulatory Status Wheelchair Transportation Private Auto Clinical Summary of Care Provided Yes Charges/Coding Procedures Integumentary 111xxx-113xx: [id number] Casie subq tissue 20 sq cm/< Assessment/Plan Assessment/Plan (1) 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, stage 3: CODE(S): L89.323 - Pressure ulcer of left buttock, stage 3 (2) Paraplegia: CODE(S): G82.20 - Paraplegia, unspecified (3) Large B-cell lymphoma: CODE(S): C85.10 - Unspecified B-cell lymphoma, unspecified site (4) Chronic indwelling Gutierrez catheter: CODE(S): Z97.8 - Presence of other specified devices (5) Non-smoker: CODE(S): Z78.9 - Other specified health status (6) Hypertension: CODE(S): I10 - Essential (primary) hypertension (7) Debility: CODE(S): R53.81 - Other malaise (8) Myocardial infarct: CODE(S): I21.9 - Acute myocardial infarction, unspecified (9) Afib: CODE(S): I48.91 - Unspecified atrial fibrillation (10) Diffuse large B-cell lymphoma: CODE(S): C83.30 - Diffuse large B-cell lymphoma, unspecified site QUALIFIERS: Lymphoma site: extranodal excluding spleen and other solid organs Qualified Code(s): C83.39 - Diffuse large B-cell lymphoma, extranodal and solid organ sites (11) Chronic anticoagulation: 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 The ulceration is much improved, and smaller in size. The laney-ulcer inflammation and maceration is much improved, as a replacement of the patient's Gutierrez catheter has decreased the amount of externalleakage. The patient's family is also changing her undergarments frequently, and as necessary when moist. We are to continue the use of lightly moistened Fibracol topically to the ulcer on a daily basis. The patient and her family have been instructed in appropriate means of application. The patient's family has been encouraged to continue changing her undergarments as necessary to avoidprolonged periods of moisture. We are to continue the use of a skin barrier protectant to the laney-ulcer skin as well. Continued offloading measures have been advised. The patient has a Roho cushion and an air mattress, and frequent repositioning has been recommended. The patient's sacral ulceration remains healed. The patient has been advised to continue with a healthy diet and nutritional supplements. She is to follow-up in 2 weeks for reevaluation. Total time: 25 minutes 03/19/25 1244 <Electronically signed by Oscar Steele MD> Cosigner Signature (if applicable): CC: ~ Signed [facility] Work Phone: [phone] 550-315205-30-2025 History and physical note [facility] [address] [place] [address] H&P Exam - Wound Care 03/19/25 1239 MR#: [id number] Acct: [id number] Name: CHRISTOPHER CORONEL Rep #:[id number] : 1945 79 From: Oscar Pascal PCP: Dr. Jennie Mcintyre MD Status:R EG RCR Location: History of Present Illness Date of Service: 03/17/25 Chief Complaint: Left ischial pressure ulceration, stage III History of Wound: This is an 79-year-old female, formerly cared for at the [facility] by a provider who has transferred to another facility. 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 She had progressive paraplegia. She went to TCU for acute rehab for this progressive paraplegia. During that time she had worsening sacral pressure sore with skin necrosis. Surgery 05/15/21 - Excision necrotic sacral pressure sore, Stage IV, with partialostectomy for osteomyelitis. Pathology from surgery on 05/15/21 of bone showed acute osteomyelitis. Operative culture, soft tissue, from 05/15/21 was positive for Escherichia coli,Klebsiella, Vanc. Resist. E. gallinarum, Vanc. Resist. E. faecalis. Operative culture, bone, from 05/15/21 was positive for Escherichia coli, Vanc. Resist. E. faecalis,Vanc. Resist. E. gallinarum. She was treated with Meropenem and Vancomycin. Linezolid was started after Vancomycin was stopped. Radiation from 05/17/21 - 06/12/21 18 treatments to T4-T7 area including paraspinal region. 06/06/21- Laparoscopic sigmoid colectomy with creation of end colostomy for fecaldiversion. She healed out her ulcers November 2023. She states that she was having issues with her urinary catheter leaking which then caused skin breakdown on her left ischial area a little before [place]. They have been using dressing supplies that they had left over (Dakin's, selena, aquacel-ag). They thought there mightbe some improvement in the ulcer, but now that it has been almost a month, they came back for further evaluation and treatment. Wound culture from 11/04/24 positive for Staphylococcus haemolyticus, Staphylococcus epidermidis, Escherichia coli, Corynebacterium striatum, and Cutibacterium acnes and she was treated with Levaquin and Linezolid. The patient denies a history of congestive heart failure, cerebrovascular accident, diabetes mellitus, thyroid disease, pulmonary disease, and renal disease. She has suffered a myocardial infarction in the past, and has had coronary revascularization performed in 2018. She is on long-term systemic a nticoagulation with warfarin. [facility] Medical History Chronic anticoagulation History of echocardiogram Wears glasses Wears dentures Uses wheelchair Indwelling urethral catheter present Anemia Non-smoker History of edema Cardiology follow-up encounter Pressure ulcer COVID-19 Decubitus ulcer of left ischium, stage 2 Pressure ulcer of right ischium MCI (mild cognitive impairment) Adrenal disorder Decubitus ulcer of left ischium, stage 4 Chronic indwelling Gutierrez catheter Hypertension Pressure sore UTI (urinary tract infection) Adynamic ileus Abdominal pain History of radiation therapy Neuropathic pain Diffuse large B cell lymphoma Paraplegia Debility Pressure ulcer of sacral region, stage 4 Osteomyelitis of pelvis Myocardial infarct Afib Pressure ulcer of sacral region, unstageable Diffuse large B-cell lymphoma Paraplegia Home Medications ?Medication ?Instructions ?Recorded ?Last Taken ?Type losartan 100 mg tablet 50 mg PO DAILY HEART 1 12/23/24 History amiodarone 200 mg tablet 200 mg PO DAILY@1400 HEART 0 12/12/21 Unknown History gabapentin 100 mg capsule 100 mg PO BID 12/12/2112/23 History metoprolol succinate 50 mg 25 mg PO DAILY BP 12/12/21 12/23/24 History tablet,extended release 24 hr Lactobacillus acidophilus 10 10,000 mmu cells PO DAILY @1400 01/19/22 Unknown History billion cell capsule (Probiotic) supplement atorvastatin 40 mg tablet 40 mg PO QHS cholesterol 12/12 Unknown History MINGXIA RED 1 tsp PO DAILY 12/09/24 Unkn own History sennosides 8.6 mg capsule (senna) 17.2 mg PO QHS 12/09 Unknown History warfarin 2 mg tablet 2 mg PO DAILY 12/09/2412/17 History nystatin 100,000 unit/gram topical 1 applic topical BI D 10 days #30 01/20/25 Unknown Rx cream grams Allergy/AdvReac Type Severity Reaction Status Date / Time prednisone Allergy Intermediate atrial Verified 12/23/24 07:52 fibrillation Family History Father CHF (congestive heart failure) Myocardial infarction Mother CAD (coronary artery disease) Alzheimer disease Surgical History History of colectomy H/O Spinal surgery History of cholecystectomy S/P excisional debridement S/P cholecystectomy Hx of CABG Social History household members: family housing: house number of children: 5 Smoking Status: Never smoker alcohol intake: never substance use type: does not use what type of physical activity do you participate in: other details: leg therapy/hand weights frequency: 5-6 times per week chris/pentecostalism: Buddhist Vital Signs Vital Signs Vital Signs: Weight Weight: 150 lb 11.094 oz Body Mass Index (BMI) 25.0 Physical Exam Const alert, oriented x3, no apparent distress and average body habitus Constitutional Narrative: The patient's BMI is 25.1. General Appearance: cooperative, comfortable and well developed Orientation / Consciousness: awake, oriented to person, oriented to place and oriented to time HEENT normocephalic and head/scalp atraumatic Head and Scalp: normal to inspection, normocephalic and atraumatic Face and Sinus: normal facial exam Nose: external nose normal External Ear: external ears normal Eyes EOMs intact bilaterally General Eye: normal appearance of both eyes Neck full ROM Lymph Lymphatic: Negative for lymphedema Resp normal respiratory effort, normal air movement, no retractions and no use of accessory muscles Effort and Inspection: able to speak in complete sentences GI GI Narrative: The patient has a functional colostomy. Bladder / Kidney Exam: catheter in place Extremity Extremity Narrative: Upper extremities have full ROM. Paralyzed. Skin Wound Narrative: A pressure ulceration is noted on the left ischial region. It is full-thickness, through all layersof the dermis and into the subcutaneous tissues. This is a stage III pressure ulceration. There is no significant sign of infection or cellulitis. Ulcer margins are well beveled. Dimensions are documented elsewhere. The ulceration has decreased in size since the last visit. It appears pink and healthy, with active granulation tissue. There is asmall amount of bioburden. The reddened, macerated, and inflamed laney-ulcer skin is much improved, and now resolved. The ulceration in the sacral area remains healed and epithelialized. Neuro oriented x3 and CN's II-XII intact bilaterally Neuro Narrative: The patient is paraplegic. Sensorium / Orientation: awake, alert, oriented to person, oriented to place andoriented to time Speech: speech normal Psych mental status grossly normal, thought process normal and cooperative Appearance: appropriate Debridement Note Debridement Note Wound debrided: Left ischial pressure ulceration Laterality: Left Wound Grade/Stage: Stage III Type of Debridement: Excisional debridement Anesthesia Used: 5% Lidocaine Gel Depth: Down to and including healthy tissue and in the subcutaneous layer Percentage of wound debrided: 100 Instrument Used: 5mm curette Tissue Removed: Bioburden and devitalized tissue Severity: Fat Layer Exposed Amount of bleeding with debridement: Mild Bleeding Controlled with: Compression and gauze Patient tolerated procedure: Patient tolerated procedure well Post-Debridement Measurements and Additional Note: Post-Debridement Measurements/Treatment - Nurse 1 - General Ulcer Assessment Start: 02/24/25 13:11 Freq: Status: Active Protocol: KRANTHI Activity Type Activity Date Activity User E-sign Co-sign Detail Recorded Client Recorded Date Recorded By Document 02/24/25 13:11 DL [id number] 02/24/25 13:16 DL Document 03/03/25 13:42 KW [id number] 03/03/25 13:43 KW Document 03/17/25 13:48 DL [id number] 03/17/25 13:49 DL 02/24/25 03/03/25 03/17/25 13:11 13:42 13:48 - Today's Visit Information Type of service Follow-up Visit Follow-up Visit Follow-up Visit (Physician/MANAGER OF PLANNING (Physician/MANAGER OF PLANNING (Physician/MANAGER OF PLANNING ) ) ) Arrival Mode Wheelchair Wheelchair Wheelchair Transfer Assistance Will Lift Will Lift Will Lift Transfer Assist (Other) x2 x2 Patient Identification Verified (Name & Yes Yes Yes ) Patient Requires Transmission-Based No No Precautions Height and Weight Body Mass Index (BMI) 25.0 25.0 25.0 BMI Classification Overweight Overweight Overweight Vital Signs Temperature (97.8 F-99.1 F) 96.9 F L 96.2 F L 97.4 F L Temperature Source Temporal Temporal Temporal Pulse Rate (60-100) 60 58 L 62 Pulse Location Monitor Monitor Monitor Respiratory Rate (12-18) 16 18 18 Respiratory rate source Observation Observation Observation Oxygen Delivery Method Room Air Blood Pressure (90/60-120/80) 121/52 H 150/69 H 127/71 H Blood Pressure Mean 75 96 89 Source Monitor Monitor Monitor Position Semi-Fowlers Blood Pressure Location Left Arm History Since Last Visit- (Skip if this is Patient's initial visit) Have you changed medications since your No No No last visit? Any new allergies or adverse reactions No No No Had a fall/change in ADL's that may No No No increase risk of falls Signs or symptoms of abuse and/or No No No neglect since last visit Have you been in the hospital since your No No No last visit? Has dressing in place as prescribed Yes Yes Yes Has compression in place as prescribed N/A N/A N/A Has offloadiing in place as prescribed Yes N/A Yes Experienced any changes in pain level or No No No management Left Footwear No Footwear Right Footwear No Footwear Pain Scale: 0-10 Numeric Is Patient Pain Free? Yes Yes Yes - Nurse 1 - General Ulcer Measurement Start: 02/24/25 13:11 Freq: Status: Active Protocol: Activity Type Activity Date Activity User E-sign Co-sign Detail Recorded Client Recorded Date Recorded By Document 02/24/25 13:11 DL [id number] 02/24/25 13:16 DL Document 03/03/25 13:42 KW [id number] 03/03/25 13:43 KW Document 03/17/25 13:48 DL [id number] 03/17/25 13:49 DL 02/24/25 03/03/25 03/17/25 13:11 13:42 13:48 Wound Center Nurse 1 #1 Sacral cluster -Current Size (cm) - Length 0.1 -Current Size (cm) - Width 0.1 -Current Size (cm) - Depth 0.1 -Total Square Cm 0.01 -Photo Taken Yes -Exudate Amt None Present -Wound Margin Flat & Intact -Granulation Amt Large (67-100%) -Granulation Quality Pale,[place] -Necrosis Amt None Present (0 %) -Structure Exposed N/A -Texture (Laney-wound Skin Appearance) Scarring -Moisture (Laney-wound Skin Appearance) No Abnormality -Color (Laney-wound Skin Appearance) Assessed -Temperature (Laney-wound Skin No Abnormality Appearance) (Pt Warm) -Tenderness on Palpation (Laney-wound No Skin Appearance) -Ulcer Cleansing Soap and Water -Foul Odor after Cleansing No #4 l iSCHIAL -Current Size (cm) - Length 2.5 1 1.2 -Current Size (cm) - Width 2.2 0.3 0.3 -Current Size (cm) - Depth 0.1 0.1 0.1 -Total Square Cm 5.50 0.3 0.36 -Date of Last Picture (Recall this 03/03/25 field) -Photo Taken Yes Yes -Exudate Amt Medium Small Small -Exudate Type Serosanguineous Serosanguineous -Wound Margin Distinct, Distinct, Distinct, Outline Outline Outline Attached Attached Attached -Granulation Amt Medium (34-66%) Large (67-100%) Large (67-100%) -Granulation Quality Red Red [place] -Necrosis Amt Medium (34-66%) None Present (0 %) -Necrotic Tissue Type Adherent Slough -Structure Exposed N/A N/A -Texture (Laney-wound Skin Appearance) Scarring Assessed Scarring -Moisture (Laney-wound Skin Appearance) No Abnormality Assessed No Abnormality -Color (Laney-wound Skin Appearance) No Abnormality Assessed No Abnormality -Temperature (Laney-wound Skin No Abnormality No Abnormality No Abnormality Appearance) (Pt Warm) (Pt Warm) (Pt Warm) -Tenderness on Palpation (Laney-wound No No No Skin Appearance) -Ulcer Cleansing Soap and Water Soap and Water Rinsed/ Irrigated with Saline -Foul Odor after Cleansing No No No -Anesthetic Used 5% Lidocaine 5% Lidocaine 5% Lidocaine Gel Gel Gel WC - Nurse 2 - General Ulcer CM Notes Start: 02/24/25 13:11 Freq: Status: Active Protocol: Activity Type Activity Date Activity User E-sign Co-sign Detail Recorded Client Recorded Date Recorded By Document 02/24/25 13:30 [id number] 02/24/25 13:35 Document 03/03/25 13:51 [id number] 03/03/25 13:54 Document 03/17/25 14:31 [id number] 03/17/25 14:31 02/24/25 03/03/25 03/17/25 13:30 13:51 14:31 Wound Center Nurse 2 #1 Sacral cluster -Time 13:32 -Correct Patient Yes -Correct Side, Site, Position Yes -Correct Procedure No -Procedure Performed No -Tunneling No -Undermining/Tunneling No -Circular Undermining No -Wound/Ulcer Outcome Healed- Epithelialized -Ulcer Cleansing Not Cleansed -Foul Odor after Cleansing No -Bioengineered Tissue No -Bleeding Controlled with NA -Offloading No #4 l iSCHIAL -Time 13:30 13:52 14:31 -Correct Patient Yes Yes Yes -Correct Side, Site, Position Yes Yes Yes -Correct Procedure Yes Yes Yes -Procedure Performed Yes Yes Yes -Type of Procedure Debridement Debridement Debridement -Clinical Debridement Subcutaneous Subcutaneous Subcutaneous -Tissue Removed Subcutaneous Subcutaneous Subcutaneous -Post Debridement (cm) - Length 3.5 1.2 0.5 -Post Debridement (cm) - Width 2.0 0.5 1.5 -Post Debridement (cm) - Depth 0.1 0.1 0.1 -Total Square (Post) (cm) 7.00 0.60 0.75 -Area of Debridement (cm) - Length 3.5 1.2 0.5 -Area of Debridement (cm) - Width 2.0 0.5 1.5 -Total Square (Area) (cm) 7.00 0.60 0.75 -Tunneling No No No -Undermining/Tunneling No No No -Circular Undermining No No No -Wound/Ulcer Outcome Not Healed Not Healed Not Healed -Ulcer Cleansing Rinsed/ Rinsed/ Rinsed/ Irrigated with Irrigated with Irrigated with Saline Saline Saline -Foul Odor after Cleansing No No No -Bioengineered Tissue No No No -Bleeding Controlled with Pressure Pressure Pressure -Treatment Response Procedure Procedure Procedure Tolerated Well Tolerated Well Tolerated Well -Offloading No No No -Assistive Device(s) Wheelchair -Pressure Reduction Wheelchair Wheelchair cushion cushion -Debridement - Subq, 1st 20sq cm Yes Yes Yes Pain Scale: 0-10 Numeric Is Patient Pain Free? Yes Yes Yes WC - Nurse 3 - General Ulcer D/C NN Start: 02/24/25 13:11 Freq: Status: Active Protocol: Activity Type Activity Date Activity User E-sign Co-sign Detail Recorded Client Recorded Date Recorded By Document 03/03/25 13:59 GM [id number] 03/03/25 14:00 GM Document 03/17/25 14:41 ML [id number] 03/17/25 14:46 ML 03/03/25 03/17/25 13:59 14:41 Wound Care Center Nurse 3 #4 l iSCHIAL -Ulcer Cleansing Not Cleansed Rinsed/ Irrigated with Saline -Foul Odor after Cleansing No -Primary Dressing Applied Fibracol Plus Fibracol Plus 4x4,Silicone 4x4,Silicone Border Foam 4x4 Border Foam 4x4 -Fibracol Plus 4x4 2 1 -Silicone Border Foam 4x4 1 1 Pain Scale: 0-10 Numeric Is Patient Pain Free? Yes Yes WC - Visit Discharge Discharge Condition Stable Ambulatory Status Wheelchair Transportation Private Auto Clinical Summary of Care Provided Yes Charges/Coding Procedures Integumentary [id number]: [id number] Casie subq tissue 20 sq cm/< Assessment/Plan Assessment/Plan (1) 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, stage 3: CODE(S): L89.323 - Pressure ulcer of left buttock, stage 3 (2) Paraplegia: CODE(S): G82.20 - Paraplegia, unspecified (3) Large B-cell lymphoma: CODE(S): C85.10 - Unspecified B-cell lymphoma, unspecified site (4) Chronic indwelling Gutierrez catheter: CODE(S): Z97.8 - Presence of other specified devices (5) Non-smoker: CODE(S): Z78.9 - Other specified health status (6) Hypertension: CODE(S): I10 - Essential (primary) hypertension (7) Debility: CODE(S): R53.81 - Other malaise (8) Myocardial infarct: CODE(S): I21.9 - Acute myocardial infarction, unspecified (9) Afib: CODE(S): I48.91 - Unspecified atrial fibrillation (10) Diffuse large B-cell lymphoma: CODE(S): C83.30 - Diffuse large B-cell lymphoma, unspecified site QUALIFIERS: Lymphoma site: extranodal excluding spleen and other solid organs Qualified Code(s): C83.39 - Diffuse large B-cell lymphoma, extranodal and solid organ sites (11) Chronic anticoagulation: 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 The ulceration is much improved, and smaller in size. The laney-ulcer inflammation and maceration is much improved, as a replacement of the patient's Gutierrez catheter has decreased the amount of externalleakage. The patient's family is also changing her undergarments frequently, and as necessary when moist. We are to continue the use of lightly moistened Fibracol topically to the ulcer on a daily basis. The patient and her family have been instructed in appropriate means of application. The patient's family has been encouraged to continue changing her undergarments as necessary to avoidprolonged periods of moisture. We are to continue the use of a skin barrier protectant to the laney-ulcer skin as well. Continued offloading measures have been advised. The patient has a Roho cushion and an air mattress, and frequent repositioning has been recommended. The patient's sacral ulceration remains healed. The patient has been advised to continue with a healthy diet and nutritional supplements. She is to follow-up in 2 weeks for reevaluation. Total time: 25 minutes 03/19/25 1244 Cosigner Signature (if applicable): CC: ~ Signed [facility]05-16-2025 History and physical note Author Oscar Steele [facility] Note Date/Time March 05, 2025 12:34 pm [facility] [address] [place] [id number] H&P Exam - Wound Care 03/05/25 1227 MR#: [id number] Acct: [id number] Name: CHRISTOPHER CORONEL Rep #:[id number] : 1945 79 From: Oscar Pascal PCP: Dr. Jennie Mcintyre MD Status:R EG RCR Location: History of Present Illness Date of Service: 03/03/25 Chief Complaint: Left ischial pressure ulceration, stage III History of Wound: This is an 79-year-old female, formerly cared for at the [facility] by a provider who has transferred to another facility. 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 She had progressive paraplegia. She went to TCU for acute rehab for this progressive paraplegia. During that time she had worsening sacral pressure sore with skin necrosis. Surgery 05/15/21 - Excision necrotic sacral pressure sore, Stage IV, with partialostectomy for osteomyelitis. Pathology from surgery on 05/15/21 of bone showed acute osteomyelitis. Operative culture, soft tissue, from 05/15/21 was positive for Escherichia coli,Klebsiella, Vanc. Resist. E. gallinarum, Vanc. Resist. E. faecalis. Operative culture, bone, from 05/15/21 was positive for Escherichia coli, Vanc. Resist. E. faecalis, Vanc. Resist. E. gallinarum. She was treated with Meropenem and Vancomycin. Linezolid was started after Vancomycin was stopped. Radiation from 05/17/21 - 06/12/21 18 treatments to T4-T7 area including paraspinal region. 06/06/21- Laparoscopic sigmoid colectomy with creation of end colostomy for fecaldiversion. She healed out her ulcers November 2023. She states that she was having issues with her urinary catheter leaking which then caused skin breakdown on her left ischial area a little before [place]. They have been using dressing supplies that they had left over (Dakin's, selena, aquacel-ag). They thought there mightbe some improvement in the ulcer, but now that it has been almost a month, they came back for further evaluation and treatment. Wound culture from 11/04/24 positive for Staphylococcus haemolyticus, Staphylococcus epidermidis, Escherichia coli, Corynebacterium striatum, and Cutibacterium acnes and she was treated with Levaquin and Linezolid. The patient denies a history of congestive heart failure, cerebrovascular accident, diabetes mellitus, thyroid disease, pulmonary disease, and renal disease. She has suffered a myocardial infarction in the past, and has had coronary revascularization performed in 2018. She is on long-term systemic anticoagulation with warfarin. [facility] Medical History Chronic anticoagulation History of echocardiogram Wears glasses Wears dentures Uses wheelchair Indwelling urethral catheter present Anemia Non-smoker History of edema Cardiology follow-up encounter Pressure ulcer COVID-19 Decubitus ulcer of left ischium, stage 2 Pressure ulcer of right ischium MCI (mild cognitive impairment) Adrenal disorder Decubitus ulcer of left ischium, stage 4 Chronic indwelling Gutierrez catheter Hypertension Pressure sore UTI (urinary tract infection) Adynamic ileus Abdominal pain History of radiation therapy Neuropathic pain Diffuse large B cell lymphoma Paraplegia Debility Pressure ulcer of sacral region, stage 4 Osteomyelitis of pelvis Myocardial infarct Afib Pressure ulcer of sacral region, unstageable Diffuse large B-cell lymphoma Paraplegia Home Medications ?Medication ?Instructions ?Recorded ?Last Taken ?Type losartan 100 mg tablet 50 mg PO DAILY HEART 1 12/23/24 History amiodarone 200 mg tablet 200 mg PO DAILY@1400 HEART 0 12/12/21 Unknown History gabapentin 100 mg capsule 100 mg PO BID 12/12/2112/23 History metoprolol succinate 50 mg 25 mg PO DAILY BP 12/12/21 12/23/24 History tablet,extended release 24 hr Lactobacillus acidophilus 10 10,000 mmu cells PO DAILY @1400 01/19/22 Unknown History billion cell capsule (Probiotic) supplement atorvastatin 40 mg tablet 40 mg PO QHS cholesterol 12/12 Unknown History MINGXIA RED 1 tsp PO DAILY 12/09/24 Unkn own History sennosides 8.6 mg capsule (senna) 17.2 mg PO QHS 12/09 Unknown History warfarin 2 mg tablet 2 mg PO DAILY 12/09/2412/17 History nystatin 100,000 unit/gram topical 1 applic topical BI D 10 days #30 01/20/25 Unknown Rx cream grams Allergy/AdvReac Type Severity Reaction Status Date / Time prednisone Allergy Intermediate atrial Verified 12/23/24 07:52 fibrillation Family History Father CHF (congestive heart failure) Myocardial infarction Mother CAD (coronary artery disease) Alzheimer disease Surgical History History of colectomy H/O Spinal surgery History of cholecystectomy S/P excisional debridement S/P cholecystectomy Hx of CABG Social History household members: family housing: house number of children: 5 Smoking Status: Never smoker alcohol intake: never substance use type: does not use what type of physical activity do you participate in: other details: leg therapy/hand weights frequency: 5-6 times per week chris/pentecostalism: Buddhist Vital Signs Vital Signs Vital Signs: Weight Weight: 150 lb 11.094 oz Body Mass Index (BMI) 25.0 Physical Exam Const alert, oriented x3, no apparent distress and average body habitus Constitutional Narrative: The patient's BMI is 25.1. General Appearance: cooperative, comfortable and well developed Orientation / Consciousness: awake, oriented to person, oriented to place and oriented to time HEENT normocephalic and head/scalp atraumatic Head and Scalp: normal to inspection, normocephalic and atraumatic Face and Sinus: normal facial exam Nose: external nose normal External Ear: external ears normal Eyes EOMs intact bilaterally General Eye: normal appearance of both eyes Neck full ROM Lymph Lymphatic: Negative for lymphedema Resp normal respiratory effort, normal air movement, no retractions and no use of accessory muscles Effort and Inspection: able to speak in complete sentences GI GI Narrative: The patient has a functional colostomy. Bladder / Kidney Exam: catheter in place Extremity Extremity Narrative: Upper extremities have full ROM. Paralyzed. Skin Wound Narrative: An ulceration is noted on the left ischial region. It is full-thickness, through all layers of the dermis and into the subcutaneous tissues. This is a stage III pressure ulceration. There is no significant sign of infection or cellulitis. Ulcer margins are well beveled. Dimensions are documented elsewhere. The ulceration has decreased in size since the last visit. The baseof the ulcer is generally pink and healthy in appearance, with a small amount ofbioburden. The reddened, macerated, and inflamed laney-ulcer skin is much improved. The ulceration in the sacral area remains healed and epithelialized. Neuro oriented x3 and CN's II-XII intact bilaterally Neuro Narrative: The patient is paraplegic. Sensorium / Orientation: awake, alert, oriented to person, oriented to place andoriented to time Speech: speech normal Psych mental status grossly normal, thought process normal and cooperative Appearance: appropriate Debridement Note Debridement Note Wound debrided: Left ischial pressure ulceration Laterality: Left Wound Grade/Stage: Stage III Type of Debridement: Excisional debridement Anesthesia Used: 5% Lidocaine Gel Depth: Down to and including healthy tissue and in the subcutaneous layer Percentage of wound debrided: 100 Instrument Used: 3mm curette Tissue Removed: Bioburden and devitalized tissue Severity: Fat Layer Exposed Amount of bleeding with debridement: Mild Bleeding Controlled with: Compression and gauze Patient tolerated procedure: Patient tolerated procedure well Post-Debridement Measurements and Additional Note: Post-Debridement Measurements/Treatment - Nurse 1 - General Ulcer Assessment Start: 02/24/25 13:11 Freq: Status: Active Protocol: WC.LOWKEVINT Activity Type Activity Date Activity User E-sign Co-sign Detail Recorded Client Recorded Date Recorded By Document 02/24/25 13:11 DL [id number] 02/24/25 13:16 DL Document 03/03/25 13:42 KW [id number] 03/03/25 13:43 KW 02/24/25 03/03/25 13:11 13:42 - Today's Visit Information Type of service Follow-up Visit Follow-up Visit (Physician/MANAGER OF PLANNING (Physician/MANAGER OF PLANNING ) ) Arrival Mode Wheelchair Wheelchair Transfer Assistance Will Lift Will Lift Transfer Assist (Other) x2 Patient Identification Verified (Name & Yes Yes ) Patient Requires Transmission-Based No Precautions Height and Weight Body Mass Index (BMI) 25.0 25.0 BMI Classification Overweight Overweight Vital Signs Temperature (97.8 F-99.1 F) 96.9 F L 96.2 F L Temperature Source Temporal Temporal Pulse Rate (60-100) 60 58 L Pulse Location Monitor Monitor Respiratory Rate (12-18) 16 18 Respiratory rate source Observation Observation Oxygen Delivery Method Room Air Blood Pressure (90/60-120/80) 121/52 H 150/69 H Blood Pressure Mean 75 96 Source Monitor Monitor Position Semi-Fowlers Blood Pressure Location Left Arm History Since Last Visit- (Skip if this is Patient's initial visit) Have you changed medications since your No No last visit? Any new allergies or adverse reactions No No Had a fall/change in ADL's that may No No increase risk of falls Signs or symptoms of abuse and/or No No neglect since last visit Have you been in the hospital since your No No last visit? Has dressing in place as prescribed Yes Yes Has compression in place as prescribed N/A N/A Has offloadiing in place as prescribed Yes N/A Experienced any changes in pain level or No No management Left Footwear No Footwear Right Footwear No Footwear Pain Scale: 0-10 Numeric Is Patient Pain Free? Yes Yes WC - Nurse 1 - General Ulcer Measurement Start: 02/24/25 13:11 Freq: Status: Active Protocol: Activity Type Activity Date Activity User E-sign Co-sign Detail Recorded Client Recorded Date Recorded By Document 02/24/25 13:11 DL [id number] 02/24/25 13:16 DL Document 03/03/25 13:42 KW [id number] 03/03/25 13:43 KW 02/24/25 03/03/25 13:11 13:42 Wound Center Nurse 1 #1 Sacral cluster -Current Size (cm) - Length 0.1 -Current Size (cm) - Width 0.1 -Current Size (cm) - Depth 0.1 -Total Square Cm 0.01 -Photo Taken Yes -Exudate Amt None Present -Wound Margin Flat & Intact -Granulation Amt Large (67-100%) -Granulation Quality Pale,[place] -Necrosis Amt None Present (0 %) -Structure Exposed N/A -Texture (Laney-wound Skin Appearance) Scarring -Moisture (Laney-wound Skin Appearance) No Abnormality -Color (Laney-wound Skin Appearance) Assessed -Temperature (Laney-wound Skin No Abnormality Appearance) (Pt Warm) -Tenderness on Palpation (Laney-wound No Skin Appearance) -Ulcer Cleansing Soap and Water -Foul Odor after Cleansing No #4 l iSCHIAL -Current Size (cm) - Length 2.5 1 -Current Size (cm) - Width 2.2 0.3 -Current Size (cm) - Depth 0.1 0.1 -Total Square Cm 5.50 0.3 -Date of Last Picture (Recall this 03/03/25 field) -Photo Taken Yes -Exudate Amt Medium Small -Exudate Type Serosanguineous -Wound Margin Distinct, Distinct, Outline Outline Attached Attached -Granulation Amt Medium (34-66%) Large (67-100%) -Granulation Quality Red Red -Necrosis Amt Medium (34-66%) -Necrotic Tissue Type Adherent Slough -Structure Exposed N/A -Texture (Laney-wound Skin Appearance) Scarring Assessed -Moisture (Laney-wound Skin Appearance) No Abnormality Assessed -Color (Laney-wound Skin Appearance) No Abnormality Assessed -Temperature (Laney-wound Skin No Abnormality No Abnormality Appearance) (Pt Warm) (Pt Warm) -Tenderness on Palpation (Laney-wound No No Skin Appearance) -Ulcer Cleansing Soap and Water Soap and Water -Foul Odor after Cleansing No No -Anesthetic Used 5% Lidocaine 5% Lidocaine Gel Gel WC - Nurse 2 - General Ulcer CM Notes Start: 02/24/25 13:11 Freq: Status: Active Protocol: Activity Type Activity Date Activity User E-sign Co-sign Detail Recorded Client Recorded Date Recorded By Document 02/24/25 13:30 [id number] 02/24/25 13:35 Document 03/03/25 13:51 [id number] 03/03/25 13:54 02/24/25 03/03/25 13:30 13:51 Wound Center Nurse 2 #1 Sacral cluster -Time 13:32 -Correct Patient Yes -Correct Side, Site, Position Yes -Correct Procedure No -Procedure Performed No -Tunneling No -Undermining/Tunneling No -Circular Undermining No -Wound/Ulcer Outcome Healed- Epithelialized -Ulcer Cleansing Not Cleansed -Foul Odor after Cleansing No -Bioengineered Tissue No -Bleeding Controlled with NA -Offloading No #4 l iSCHIAL -Time 13:30 13:52 -Correct Patient Yes Yes -Correct Side, Site, Position Yes Yes -Correct Procedure Yes Yes -Procedure Performed Yes Yes -Type of Procedure Debridement Debridement -Clinical Debridement Subcutaneous Subcutaneous -Tissue Removed Subcutaneous Subcutaneous -Post Debridement (cm) - Length 3.5 1.2 -Post Debridement (cm) - Width 2.0 0.5 -Post Debridement (cm) - Depth 0.1 0.1 -Total Square (Post) (cm) 7.00 0.60 -Area of Debridement (cm) - Length 3.5 1.2 -Area of Debridement (cm) - Width 2.0 0.5 -Total Square (Area) (cm) 7.00 0.60 -Tunneling No No -Undermining/Tunneling No No -Circular Undermining No No -Wound/Ulcer Outcome Not Healed Not Healed -Ulcer Cleansing Rinsed/ Rinsed/ Irrigated with Irrigated with Saline Saline -Foul Odor after Cleansing No No -Bioengineered Tissue No No -Bleeding Controlled with Pressure Pressure -Treatment Response Procedure Procedure Tolerated Well Tolerated Well -Offloading No No -Assistive Device(s) Wheelchair -Pressure Reduction Wheelchair cushion -Debridement - Subq, 1st 20sq cm Yes Yes Pain Scale: 0-10 Numeric Is Patient Pain Free? Yes Yes - Nurse 3 - General Ulcer D/C NN Start: 02/24/25 13:11 Freq: Status: Active Protocol: Activity Type Activity Date Activity User E-sign Co-sign Detail Recorded Client Recorded Date Recorded By Document 03/03/25 13:59 [id number] 03/03/25 14:00 03/03/25 13:59 Wound Care Center Nurse 3 #4 l iSCHIAL -Ulcer Cleansing Not Cleansed -Foul Odor after Cleansing No -Primary Dressing Applied Fibracol Plus 4x4,Silicone Border Foam 4x4 -Fibracol Plus 4x4 2 -Silicone Border Foam 4x4 1 Pain Scale: 0-10 Numeric Is Patient Pain Free? Yes - Visit Discharge Discharge Condition Stable Ambulatory Status Wheelchair Transportation Private Auto Clinical Summary of Care Provided Yes Charges/Coding Procedures Integumentary [id number]: [id number] Casie subq tissue 20 sq cm/< Assessment/Plan Assessment/Plan (1) 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, stage 3: CODE(S): L89.323 - Pressure ulcer of left buttock, stage 3 (2) Paraplegia: CODE(S): G82.20 - Paraplegia, unspecified (3) Large B-cell lymphoma: CODE(S): C85.10 - Unspecified B-cell lymphoma, unspecified site (4) Chronic indwelling Gutierrez catheter: CODE(S): Z97.8 - Presence of other specified devices (5) Non-smoker: CODE(S): Z78.9 - Other specified health status (6) Hypertension: CODE(S): I10 - Essential (primary) hypertension (7) Debility: CODE(S): R53.81 - Other malaise (8) Myocardial infarct: CODE(S): I21.9 - Acute myocardial infarction, unspecified (9) Afib: CODE(S): I48.91 - Unspecified atrial fibrillation (10) Diffuse large B-cell lymphoma: CODE(S): C83.30 - Diffuse large B-cell lymphoma, unspecified site QUALIFIERS: Lymphoma site: extranodal excluding spleen and other solid organs Qualified Code(s): C83.39 - Diffuse large B-cell lymphoma, extranodal and solid organ sites (11) Chronic anticoagulation: CODE(S): Z79.01 - longterm (current) use of anticoagulants PLAN: Plan This is an 79-year-old paraplegic female with a stage III pressure ulceration atthe site of the left ischium. The ulceration is much improved, and smaller in size. The laney-ulcer inflammation and maceration is much improved, as a replacement of the patient's Gutierrez catheter has decreased the amount of externalleakage. We are to continue the use of lightly moistened Fibracol topically to the ulcer on a daily basis. The patient and her family have been instructed in appropriate means of application. The patient's family has been encouraged to change her undergarments as necessary to avoid prolonged periods of moisture. We are to continue the use of a skin barrier protectant to the laney-ulcer skin as well. Continued offloading measures have been advised. The patient has a Roho cushion and an air mattress, and frequent repositioning has been recommended. The patient's sacral ulceration remains healed. The patient has been advised to continue with a healthy diet and nutritional supplements. She is to follow-up in 2 weeks for reevaluation. Total time: 24 minutes 03/05/25 [id number] <Electronically signed by Oscar Steele MD> Cosigner Signature (if applicable): CC: ~ Signed [facility] Work Phone: [phone] History and physical note [facility] [address] [place] [id number] H&P Exam - Wound Care 05/16/25 1227 MR#: [id number] Acct: [id number] Name: CHRISTOPHER CORONEL Rep #:[id number] : 1945 79 From: Oscar Pascal PCP: Dr. Jennie Mcintyre MD Status:R EG RCR Location: History of Present Illness Date of Service: 03/03/25 Chief Complaint: Left ischial pressure ulceration, stage III History of Wound: This is an 79-year-old female, formerly cared for at the [facility] by a provider who has transferred to another facility. 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 She had progressive paraplegia. She went to TCU for acute rehab for this progressive paraplegia. During that time she had worsening sacral pressure sore with skin necrosis. Surgery 05/15/21 - Excision necrotic sacral pressure sore, Stage IV, with partialostectomy for osteomyelitis. Pathology from surgery on 05/15/21 of bone showed acute osteomyelitis. Operative culture, soft tissue, from 05/15/21 was positive for Escherichia coli,Klebsiella, Vanc. Resist. E. gallinarum, Vanc. Resist. E. faecalis. Operative culture, bone, from 05/15/21 was positive for Escherichia coli, Vanc. Resist. E. faecalis,Vanc. Resist. E. gallinarum. She was treated with Meropenem and Vancomycin. Linezolid was started after Vancomycin was stopped. Radiation from 05/17/21 - 06/12/21 18 treatments to T4-T7 area including paraspinal region. 06/06/21- Laparoscopic sigmoid colectomy with creation of end colostomy for fecaldiversion. She healed out her ulcers November 2023. She states that she was having issues with her urinary catheter leaking which then caused skin breakdown on her left ischial area a little before Antoine. They have been using dressing supplies that they had left over (Dakin's, selena, aquacel-ag). They thought there mightbe some improvement in the ulcer, but now that it has been almost a month, they came back for further evaluation and treatment. Wound culture from 11/04/24 positive for Staphylococcus haemolyticus, Staphylococcus epidermidis, Escherichia coli, Corynebacterium striatum, and Cutibacterium acnes and she was treated with Levaquin and Linezolid. The patient denies a history of congestive heart failure, cerebrovascular accident, diabetes mellitus, thyroid disease, pulmonary disease, and renal disease. She has suffered a myocardial infarction in the past, and has had coronary revascularization performed in 2018. She is on long-term systemic a nticoagulation with warfarin. [facility] Medical History Chronic anticoagulation History of echocardiogram Wears glasses Wears dentures Uses wheelchair Indwelling urethral catheter present Anemia Non-smoker History of edema Cardiology follow-up encounter Pressure ulcer COVID-19 Decubitus ulcer of left ischium, stage 2 Pressure ulcer of right ischium MCI (mild cognitive impairment) Adrenal disorder Decubitus ulcer of left ischium, stage 4 Chronic indwelling Gutierrez catheter Hypertension Pressure sore UTI (urinary tract infection) Adynamic ileus Abdominal pain History of radiation therapy Neuropathic pain Diffuse large B cell lymphoma Paraplegia Debility Pressure ulcer of sacral region, stage 4 Osteomyelitis of pelvis Myocardial infarct Afib Pressure ulcer of sacral region, unstageable Diffuse large B-cell lymphoma Paraplegia Home Medications ?Medication ?Instructions ?Recorded ?Last Taken ?Type losartan 100 mg tablet 50 mg PO DAILY HEART 1 12/23/24 History amiodarone 200 mg tablet 200 mg PO DAILY@1400 HEART 0 12/12/21 Unknown History gabapentin 100 mg capsule 100 mg PO BID 12/12/2112/23 History metoprolol succinate 50 mg 25 mg PO DAILY BP 12/12/21 12/23/24 History tablet,extended release 24 hr Lactobacillus acidophilus 10 10,000 mmu cells PO DAILY @1400 01/19/22 Unknown History billion cell capsule (Probiotic) supplement atorvastatin 40 mg tablet 40 mg PO QHS cholesterol 12/12 Unknown History MINGXIA RED 1 tsp PO DAILY 12/09/24 Unkn own History sennosides 8.6 mg capsule (senna) 17.2 mg PO QHS 12/09 Unknown History warfarin 2 mg tablet 2 mg PO DAILY 12/09/2412/17 History nystatin 100,000 unit/gram topical 1 applic topical BI D 10 days #30 01/20/25 Unknown Rx cream grams Allergy/AdvReac Type Severity Reaction Status Date / Time prednisone Allergy Intermediate atrial Verified 12/23/24 07:52 fibrillation Family History Father CHF (congestive heart failure) Myocardial infarction Mother CAD (coronary artery disease) Alzheimer disease Surgical History History of colectomy H/O Spinal surgery History of cholecystectomy S/P excisional debridement S/P cholecystectomy Hx of CABG Social History household members: family housing: house number of children: 5 Smoking Status: Never smoker alcohol intake: never substance use type: does not use what type of physical activity do you participate in: other details: leg therapy/hand weights frequency: 5-6 times per week chris/pentecostalism: Buddhist Vital Signs Vital Signs Vital Signs: Weight Weight: 150 lb 11.094 oz Body Mass Index (BMI) 25.0 Physical Exam Const alert, oriented x3, no apparent distress and average body habitus Constitutional Narrative: The patient's BMI is 25.1. General Appearance: cooperative, comfortable and well developed Orientation / Consciousness: awake, oriented to person, oriented to place and oriented to time HEENT normocephalic and head/scalp atraumatic Head and Scalp: normal to inspection, normocephalic and atraumatic Face and Sinus: normal facial exam Nose: external nose normal External Ear: external ears normal Eyes EOMs intact bilaterally General Eye: normal appearance of both eyes Neck full ROM Lymph Lymphatic: Negative for lymphedema Resp normal respiratory effort, normal air movement, no retractions and no use of accessory muscles Effort and Inspection: able to speak in complete sentences GI GI Narrative: The patient has a functional colostomy. Bladder / Kidney Exam: catheter in place Extremity Extremity Narrative: Upper extremities have full ROM. Paralyzed. Skin Wound Narrative: An ulceration is noted on the left ischial region. It is full-thickness, through all layers of the dermis and into the subcutaneous tissues. This is a stage III pressure ulceration. There is no significant sign of infection or cellulitis. Ulcer margins are well beveled. Dimensions are documented elsewhere. The ulceration has decreased in size since the last visit. The baseof the ulcer is generally pink and healthy in appearance, with a small amount ofbioburden. The reddened, macerated, and inflamed laney-ulcer skin is much improved. The ulceration in the sacral area remains healed and epithelialized. Neuro oriented x3 and CN's II-XII intact bilaterally Neuro Narrative: The patient is paraplegic. Sensorium / Orientation: awake, alert, oriented to person, oriented to place andoriented to time Speech: speech normal Psych mental status grossly normal, thought process normal and cooperative Appearance: appropriate Debridement Note Debridement Note Wound debrided: Left ischial pressure ulceration Laterality: Left Wound Grade/Stage: Stage III Type of Debridement: Excisional debridement Anesthesia Used: 5% Lidocaine Gel Depth: Down to and including healthy tissue and in the subcutaneous layer Percentage of wound debrided: 100 Instrument Used: 3mm curette Tissue Removed: Bioburden and devitalized tissue Severity: Fat Layer Exposed Amount of bleeding with debridement: Mild Bleeding Controlled with: Compression and gauze Patient tolerated procedure: Patient tolerated procedure well Post-Debridement Measurements and Additional Note: Post-Debridement Measurements/Treatment - Nurse 1 - General Ulcer Assessment Start: 02/24/25 13:11 Freq: Status: Active Protocol: KRANTHI Activity Type Activity Date Activity User E-sign Co-sign Detail Recorded Client Recorded Date Recorded By Document 02/24/25 13:11 DL [id number] 02/24/25 13:16 DL Document 03/03/25 13:42 KW [id number] 03/03/25 13:43 KW 02/24/25 03/03/25 13:11 13:42 - Today's Visit Information Type of service Follow-up Visit Follow-up Visit (Physician/MANAGER OF PLANNING (Physician/MANAGER OF PLANNING ) ) Arrival Mode Wheelchair Wheelchair Transfer Assistance Will Lift Will Lift Transfer Assist (Other) x2 Patient Identification Verified (Name & Yes Yes ) Patient Requires Transmission-Based No Precautions Height and Weight Body Mass Index (BMI) 25.0 25.0 BMI Classification Overweight Overweight Vital Signs Temperature (97.8 F-99.1 F) 96.9 F L 96.2 F L Temperature Source Temporal Temporal Pulse Rate (60-100) 60 58 L Pulse Location Monitor Monitor Respiratory Rate (12-18) 16 18 Respiratory rate source Observation Observation Oxygen Delivery Method Room Air Blood Pressure (90/60-120/80) 121/52 H 150/69 H Blood Pressure Mean 75 96 Source Monitor Monitor Position Semi-Fowlers Blood Pressure Location Left Arm History Since Last Visit- (Skip if this is Patient's initial visit) Have you changed medications since your No No last visit? Any new allergies or adverse reactions No No Had a fall/change in ADL's that may No No increase risk of falls Signs or symptoms of abuse and/or No No neglect since last visit Have you been in the hospital since your No No last visit? Has dressing in place as prescribed Yes Yes Has compression in place as prescribed N/A N/A Has offloadiing in place as prescribed Yes N/A Experienced any changes in pain level or No No management Left Footwear No Footwear Right Footwear No Footwear Pain Scale: 0-10 Numeric Is Patient Pain Free? Yes Yes WC - Nurse 1 - General Ulcer Measurement Start: 02/24/25 13:11 Freq: Status: Active Protocol: Activity Type Activity Date Activity User E-sign Co-sign Detail Recorded Client Recorded Date Recorded By Document 02/24/25 13:11 DL [id number] 02/24/25 13:16 DL Document 03/03/25 13:42 KW [id number] 03/03/25 13:43 KW 02/24/25 03/03/25 13:11 13:42 Wound Center Nurse 1 #1 Sacral cluster -Current Size (cm) - Length 0.1 -Current Size (cm) - Width 0.1 -Current Size (cm) - Depth 0.1 -Total Square Cm 0.01 -Photo Taken Yes -Exudate Amt None Present -Wound Margin Flat & Intact -Granulation Amt Large (67-100%) -Granulation Quality Pale,[place] -Necrosis Amt None Present (0 %) -Structure Exposed N/A -Texture (Laney-wound Skin Appearance) Scarring -Moisture (Laney-wound Skin Appearance) No Abnormality -Color (Laney-wound Skin Appearance) Assessed -Temperature (Laney-wound Skin No Abnormality Appearance) (Pt Warm) -Tenderness on Palpation (Laney-wound No Skin Appearance) -Ulcer Cleansing Soap and Water -Foul Odor after Cleansing No #4 l iSCHIAL -Current Size (cm) - Length 2.5 1 -Current Size (cm) - Width 2.2 0.3 -Current Size (cm) - Depth 0.1 0.1 -Total Square Cm 5.50 0.3 -Date of Last Picture (Recall this 03/03/25 field) -Photo Taken Yes -Exudate Amt Medium Small -Exudate Type Serosanguineous -Wound Margin Distinct, Distinct, Outline Outline Attached Attached -Granulation Amt Medium (34-66%) Large (67-100%) -Granulation Quality Red Red -Necrosis Amt Medium (34-66%) -Necrotic Tissue Type Adherent Slough -Structure Exposed N/A -Texture (Laney-wound Skin Appearance) Scarring Assessed -Moisture (Laney-wound Skin Appearance) No Abnormality Assessed -Color (Laney-wound Skin Appearance) No Abnormality Assessed -Temperature (Laney-wound Skin No Abnormality No Abnormality Appearance) (Pt Warm) (Pt Warm) -Tenderness on Palpation (Laney-wound No No Skin Appearance) -Ulcer Cleansing Soap and Water Soap and Water -Foul Odor after Cleansing No No -Anesthetic Used 5% Lidocaine 5% Lidocaine Gel Gel WC - Nurse 2 - General Ulcer CM Notes Start: 02/24/25 13:11 Freq: Status: Active Protocol: Activity Type Activity Date Activity User E-sign Co-sign Detail Recorded Client Recorded Date Recorded By Document 02/24/25 13:30 [id number] 02/24/25 13:35 Document 03/03/25 13:51 [id number] 03/03/25 13:54 02/24/25 03/03/25 13:30 13:51 Wound Center Nurse 2 #1 Sacral cluster -Time 13:32 -Correct Patient Yes -Correct Side, Site, Position Yes -Correct Procedure No -Procedure Performed No -Tunneling No -Undermining/Tunneling No -Circular Undermining No -Wound/Ulcer Outcome Healed- Epithelialized -Ulcer Cleansing Not Cleansed -Foul Odor after Cleansing No -Bioengineered Tissue No -Bleeding Controlled with NA -Offloading No #4 l iSCHIAL -Time 13:30 13:52 -Correct Patient Yes Yes -Correct Side, Site, Position Yes Yes -Correct Procedure Yes Yes -Procedure Performed Yes Yes -Type of Procedure Debridement Debridement -Clinical Debridement Subcutaneous Subcutaneous -Tissue Removed Subcutaneous Subcutaneous -Post Debridement (cm) - Length 3.5 1.2 -Post Debridement (cm) - Width 2.0 0.5 -Post Debridement (cm) - Depth 0.1 0.1 -Total Square (Post) (cm) 7.00 0.60 -Area of Debridement (cm) - Length 3.5 1.2 -Area of Debridement (cm) - Width 2.0 0.5 -Total Square (Area) (cm) 7.00 0.60 -Tunneling No No -Undermining/Tunneling No No -Circular Undermining No No -Wound/Ulcer Outcome Not Healed Not Healed -Ulcer Cleansing Rinsed/ Rinsed/ Irrigated with Irrigated with Saline Saline -Foul Odor after Cleansing No No -Bioengineered Tissue No No -Bleeding Controlled with Pressure Pressure -Treatment Response Procedure Procedure Tolerated Well Tolerated Well -Offloading No No -Assistive Device(s) Wheelchair -Pressure Reduction Wheelchair cushion -Debridement - Subq, 1st 20sq cm Yes Yes Pain Scale: 0-10 Numeric Is Patient Pain Free? Yes Yes - Nurse 3 - General Ulcer D/C NN Start: 02/24/25 13:11 Freq: Status: Active Protocol: Activity Type Activity Date Activity User E-sign Co-sign Detail Recorded Client Recorded Date Recorded By Document 03/03/25 13:59 [id number] 03/03/25 14:00 03/03/25 13:59 Wound Care Center Nurse 3 #4 l iSCHIAL -Ulcer Cleansing Not Cleansed -Foul Odor after Cleansing No -Primary Dressing Applied Fibracol Plus 4x4,Silicone Border Foam 4x4 -Fibracol Plus 4x4 2 -Silicone Border Foam 4x4 1 Pain Scale: 0-10 Numeric Is Patient Pain Free? Yes - Visit Discharge Discharge Condition Stable Ambulatory Status Wheelchair Transportation Private Auto Clinical Summary of Care Provided Yes Charges/Coding Procedures Integumentary 111xxx-113xx: 94529 Casie subq tissue 20 sq cm/< Assessment/Plan Assessment/Plan (1) 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, stage 3: CODE(S): L89.323 - Pressure ulcer of left buttock, stage 3 (2) Paraplegia: CODE(S): G82.20 - Paraplegia, unspecified (3) Large B-cell lymphoma: CODE(S): C85.10 - Unspecified B-cell lymphoma, unspecified site (4) Chronic indwelling Gutierrez catheter: CODE(S): Z97.8 - Presence of other specified devices (5) Non-smoker: CODE(S): Z78.9 - Other specified health status (6) Hypertension: CODE(S): I10 - Essential (primary) hypertension (7) Debility: CODE(S): R53.81 - Other malaise (8) Myocardial infarct: CODE(S): I21.9 - Acute myocardial infarction, unspecified (9) Afib: CODE(S): I48.91 - Unspecified atrial fibrillation (10) Diffuse large B-cell lymphoma: CODE(S): C83.30 - Diffuse large B-cell lymphoma, unspecified site QUALIFIERS: Lymphoma site: extranodal excluding spleen and other solid organs Qualified Code(s): C83.39 - Diffuse large B-cell lymphoma, extranodal and solid organ sites (11) Chronic anticoagulation: 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 The ulceration is much improved, and smaller in size. The laney-ulcer inflammation and maceration is much improved, as a replacement of the patient's Gutierrez catheter has decreased the amount of externalleakage. We are to continue the use of lightly moistened Fibracol topically to the ulcer on a daily basis. The patient and her family have been instructed in appropriate means of application. The patient's family has been encouraged to change her undergarments as necessary to avoid prolonged periods of moisture. We are to continue the use of a skin barrier protectant to the laney-ulcer skin as well. Continued offloading measures have been advised. The patient has a Roho cushion and an air mattress, and frequent repositioning has been recommended. The patient's sacral ulceration remains healed. The patient has been advised to continue with a healthy diet and nutritional supplements.She is to follow-up in 2 weeks for reevaluation. Total time: 24 minutes 03/05/25 1234 Cosigner Signature (if applicable): CC: ~ Signed [facility]05-09-2025 History and physical note Author Oscar Steele [facility] Note Date/Time February 26, 2025 12:58p m [facility] [address] [place] [address] H&P Exam - Wound Care 02/26/25 1239 MR#: [id number] Acct: [id number] Name: CHRISTOPHER CORONEL Rep #:[id number] : 1945 79 From: Oscar Pascal PCP: Dr. Jennie Mcintyre MD Status:R EG RCR Location: WC ADDENDUM by Dr. Oscar Steele MD on 02/26/25 at 1258 Addendum A debridement was performed today, contrary to a mis-statement elsewhere in thisdocument that stated that no debridement was performed today. 02/26/25 1258<Electronically signed by Oscar Steele MD> Cosigner Signature (if applicable): cc: ~* Signed History of Present Illness Date of Service: 02/24/25 Chief Complaint: Left ischial pressure ulceration, stage III History of Wound: This is an 79-year-old female, formerly cared for at the [facility] by a provider who has transferred to another facility. 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 She had progressive paraplegia. She went to TCU for acute rehab for this progressive paraplegia. During that time she had worsening sacral pressure sore with skin necrosis. Surgery 05/15/21 - Excision necrotic sacral pressure sore, Stage IV, with partialostectomy for osteomyelitis. Pathology from surgery on 05/15/21 of bone showed acute osteomyelitis. Operative culture, soft tissue, from 05/15/21 was positive for Escherichia coli,Klebsiella, Vanc. Resist. E. gallinarum, Vanc. Resist. E. faecalis. Operative culture, bone, from 05/15/21 was positive for Escherichia coli, Vanc. Resist. E. faecalis, Vanc. Resist. E. gallinarum. She was treated with Meropenem and Vancomycin. Linezolid was started after Vancomycin was stopped. Radiation from 05/17/21 - 06/12/21 18 treatments to T4-T7 area including paraspinal region. 06/06/21- Laparoscopic sigmoid colectomy with creation of end colostomy for fecaldiversion. She healed out her ulcers November 2023. She states that she was having issues with her urinary catheter leaking which then caused skin breakdown on her left ischial area a little before [place]. They have been using dressing supplies that they had left over (Dakin's, selena, aquacel-ag). They thought there mightbe some improvement in the ulcer, but now that it has been almost a month, they came back for further evaluation and treatment. Wound culture from 11/04/24 positive for Staphylococcus haemolyticus, Staphylococcus epidermidis, Escherichia coli, Corynebacterium striatum, and Cutibacterium acnes and she was treated with Levaquin and Linezolid. The patient denies a history of congestive heart failure, cerebrovascular accident, diabetes mellitus, thyroid disease, pulmonary disease, and renal disease. She has suffered a myocardial infarction in the past, and has had coronary revascularization performed in 2018. She is on long-term systemic anticoagulation with warfarin. [facility] Medical History Chronic anticoagulation History of echocardiogram Wears glasses Wears dentures Uses wheelchair Indwelling urethral catheter present Anemia Non-smoker History of edema Cardiology follow-up encounter Pressure ulcer COVID-19 Decubitus ulcer of left ischium, stage 2 Pressure ulcer of right ischium MCI (mild cognitive impairment) Adrenal disorder Decubitus ulcer of left ischium, stage 4 Chronic indwelling Gutierrez catheter Hypertension Pressure sore UTI (urinary tract infection) Adynamic ileus Abdominal pain History of radiation therapy Neuropathic pain Diffuse large B cell lymphoma Paraplegia Debility Pressure ulcer of sacral region, stage 4 Osteomyelitis of pelvis Myocardial infarct Afib Pressure ulcer of sacral region, unstageable Diffuse large B-cell lymphoma Paraplegia Home Medications ?Medication ?Instructions ?Recorded ?Last Taken ?Type losartan 100 mg tablet 50 mg PO DAILY HEART 1 12/23/24 History amiodarone 200 mg tablet 200 mg PO DAILY@1400 HEART 0 12/12/21 Unknown History gabapentin 100 mg capsule 100 mg PO BID 12/12/2112/23 History metoprolol succinate 50 mg 25 mg PO DAILY BP 12/12/21 12/23/24 History tablet,extended release 24 hr Lactobacillus acidophilus 10 10,000 mmu cells PO DAILY @1400 01/19/22 Unknown History billion cell capsule (Probiotic) supplement atorvastatin 40 mg tablet 40 mg PO QHS cholesterol 12/12 Unknown History MINGXIA RED 1 tsp PO DAILY 12/09/24 Unkn own History sennosides 8.6 mg capsule (senna) 17.2 mg PO QHS 12/09 Unknown History warfarin 2 mg tablet 2 mg PO DAILY 12/09/2412/17 History nystatin 100,000 unit/gram topical 1 applic topical BI D 10 days #30 01/20/25 Unknown Rx cream grams Allergy/AdvReac Type Severity Reaction Status Date / Time prednisone Allergy Intermediate atrial Verified 12/23/24 07:52 fibrillation Family History Father CHF (congestive heart failure) Myocardial infarction Mother CAD (coronary artery disease) Alzheimer disease Surgical History History of colectomy H/O Spinal surgery History of cholecystectomy S/P excisional debridement S/P cholecystectomy Hx of CABG Social History household members: family housing: house number of children: 5 Smoking Status: Never smoker alcohol intake: never substance use type: does not use what type of physical activity do you participate in: other details: leg therapy/hand weights frequency: 5-6 times per week chris/pentecostalism: Buddhist Vital Signs Vital Signs Vital Signs: Weight Weight: 150 lb 11.094 oz Body Mass Index (BMI) 25.0 Physical Exam Const alert, oriented x3, no apparent distress and average body habitus Constitutional Narrative: The patient's BMI is 25.1. General Appearance: cooperative, comfortable and well developed Orientation / Consciousness: awake, oriented to person, oriented to place and oriented to time HEENT normocephalic and head/scalp atraumatic Head and Scalp: normal to inspection, normocephalic and atraumatic Face and Sinus: normal facial exam Nose: external nose normal External Ear: external ears normal Eyes EOMs intact bilaterally General Eye: normal appearance of both eyes Neck full ROM Lymph Lymphatic: Negative for lymphedema Resp normal respiratory effort, normal air movement, no retractions and no use of accessory muscles Effort and Inspection: able to speak in complete sentences GI GI Narrative: The patient has a functional colostomy. Bladder / Kidney Exam: catheter in place Extremity Extremity Narrative: Upper extremities have full ROM. Paralyzed. Skin Wound Narrative: An ulceration is noted on the left ischial region. It is full-thickness, through all layers of the dermis and into the subcutaneous tissues. This is a stage III pressure ulceration. There is no significant sign of infection or cellulitis. Ulcer margins are reasonably well beveled. Dimensions are documented elsewhere. The ulceration appears to have enlarged in size since thelast visit. The base of the ulcer is generally pink and healthy in appearance, with a small amount of bioburden. The laney-ulcer skin appears somewhat reddenedand inflamed. The ulceration in the sacral area appears to be healed and epithelialized. Neuro oriented x3 and CN's II-XII intact bilaterally Neuro Narrative: The patient is paraplegic. Sensorium / Orientation: awake, alert, oriented to person, oriented to place andoriented to time Speech: speech normal Psych mental status grossly normal, thought process normal and cooperative Appearance: appropriate Debridement Note Debridement Note Wound debrided: Left ischial pressure ulceration Laterality: Left Wound Grade/Stage: Stage III Type of Debridement: Excisional debridement Anesthesia Used: 5% Lidocaine Gel Depth: Down to and including healthy tissue and in the subcutaneous layer Percentage of wound debrided: 100 Instrument Used: 5mm curette Tissue Removed: Non viable tissue and bioburden Severity: Fat Layer Exposed Amount of bleeding with debridement: Mild Bleeding Controlled with: Compression and gauze Patient tolerated procedure: Patient tolerated procedure well No debridement was completed: No debridement was completed today Post-Debridement Measurements and Additional Note: Post-Debridement Measurements/Treatment - Nurse 1 - General Ulcer Assessment Start: 02/24/25 13:11 Freq: Status: Active Protocol: NICOLAS.LFACO Activity Type Activity Date Activity User E-sign Co-sign Detail Recorded Client Recorded Date Recorded By Document 02/24/25 13:11 NAI [id number] 02/24/25 13:16 DL 02/24/25 13:11 - Today's Visit Information Type of service Follow-up Visit (Physician/MANAGER OF PLANNING ) Arrival Mode Wheelchair Transfer Assistance Will Lift Transfer Assist (Other) x2 Patient Identification Verified (Name & Yes ) Patient Requires Transmission-Based No Precautions Height and Weight Body Mass Index (BMI) 25.0 BMI Classification Overweight Vital Signs Temperature (97.8 F-99.1 F) 96.9 F L Temperature Source Temporal Pulse Rate (60-100) 60 Pulse Location Monitor Respiratory Rate (12-18) 16 Respiratory rate source Observation Blood Pressure (90/60-120/80) 121/52 H Blood Pressure Mean 75 Source Monitor History Since Last Visit- (Skip if this is Patient's initial visit) Have you changed medications since your No last visit? Any new allergies or adverse reactions No Had a fall/change in ADL's that may No increase risk of falls Signs or symptoms of abuse and/or No neglect since last visit Have you been in the hospital since your No last visit? Has dressing in place as prescribed Yes Has compression in place as prescribed N/A Has offloadiing in place as prescribed Yes Experienced any changes in pain level or No management Pain Scale: 0-10 Numeric Is Patient Pain Free? Yes WC - Nurse 1 - General Ulcer Measurement Start: 02/24/25 13:11 Freq: Status: Active Protocol: Activity Type Activity Date Activity User E-sign Co-sign Detail Recorded Client Recorded Date Recorded By Document 02/24/25 13:11 DL [id number] 02/24/25 13:16 DL 02/24/25 13:11 Wound Center Nurse 1 #4 l iSCHIAL -Current Size (cm) - Length 2.5 -Current Size (cm) - Width 2.2 -Current Size (cm) - Depth 0.1 -Total Square Cm 5.50 -Photo Taken Yes -Exudate Amt Medium -Wound Margin Distinct, Outline Attached -Granulation Amt Medium (34-66%) -Granulation Quality Red -Necrosis Amt Medium (34-66%) -Necrotic Tissue Type Adherent Slough -Structure Exposed N/A -Texture (Laney-wound Skin Appearance) Scarring -Moisture (Laney-wound Skin Appearance) No Abnormality -Color (Laney-wound Skin Appearance) No Abnormality -Temperature (Laney-wound Skin No Abnormality Appearance) (Pt Warm) -Tenderness on Palpation (Laney-wound No Skin Appearance) -Ulcer Cleansing Soap and Water -Foul Odor after Cleansing No -Anesthetic Used 5% Lidocaine Gel #1 Sacral cluster -Current Size (cm) - Length 0.1 -Current Size (cm) - Width 0.1 -Current Size (cm) - Depth 0.1 -Total Square Cm 0.01 -Photo Taken Yes -Exudate Amt None Present -Wound Margin Flat & Intact -Granulation Amt Large (67-100%) -Granulation Quality Pale,[place] -Necrosis Amt None Present (0 %) -Structure Exposed N/A -Texture (Laney-wound Skin Appearance) Scarring -Moisture (Laney-wound Skin Appearance) No Abnormality -Color (Laney-wound Skin Appearance) Assessed -Temperature (Laney-wound Skin No Abnormality Appearance) (Pt Warm) -Tenderness on Palpation (Laney-wound No Skin Appearance) -Ulcer Cleansing Soap and Water -Foul Odor after Cleansing No WC - Nurse 2 - General Ulcer CM Notes Start: 02/24/25 13:11 Freq: Status: Active Protocol: Activity Type Activity Date Activity User E-sign Co-sign Detail Recorded Client Recorded Date Recorded By Document 02/24/25 13:30 [id number] 02/24/25 13:35 02/24/25 13:30 Wound Center Nurse 2 #4 l iSCHIAL -Time 13:30 -Correct Patient Yes -Correct Side, Site, Position Yes -Correct Procedure Yes -Procedure Performed Yes -Type of Procedure Debridement -Clinical Debridement Subcutaneous -Tissue Removed Subcutaneous -Post Debridement (cm) - Length 3.5 -Post Debridement (cm) - Width 2.0 -Post Debridement (cm) - Depth 0.1 -Total Square (Post) (cm) 7.00 -Area of Debridement (cm) - Length 3.5 -Area of Debridement (cm) - Width 2.0 -Total Square (Area) (cm) 7.00 -Tunneling No -Undermining/Tunneling No -Circular Undermining No -Wound/Ulcer Outcome Not Healed -Ulcer Cleansing Rinsed/ Irrigated with Saline -Foul Odor after Cleansing No -Bioengineered Tissue No -Bleeding Controlled with Pressure -Treatment Response Procedure Tolerated Well -Offloading No -Assistive Device(s) Wheelchair -Pressure Reduction Wheelchair cushion -Debridement - Subq, 1st 20sq cm Yes #1 Sacral cluster -Time 13:32 -Correct Patient Yes -Correct Side, Site, Position Yes -Correct Procedure No -Procedure Performed No -Tunneling No -Undermining/Tunneling No -Circular Undermining No -Wound/Ulcer Outcome Healed- Epithelialized -Ulcer Cleansing Not Cleansed -Foul Odor after Cleansing No -Bioengineered Tissue No -Bleeding Controlled with NA -Offloading No Pain Scale: 0-10 Numeric Is Patient Pain Free? Yes Charges/Coding Procedures Integumentary 111xxx-113xx: 36029 Casie subq tissue 20 sq cm/< Assessment/Plan Assessment/Plan (1) 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, stage 3: CODE(S): L89.323 - Pressure ulcer of left buttock, stage 3 (2) Paraplegia: CODE(S): G82.20 - Paraplegia, unspecified (3) Large B-cell lymphoma: CODE(S): C85.10 - Unspecified B-cell lymphoma, unspecified site (4) Chronic indwelling Gutierrez catheter: CODE(S): Z97.8 - Presence of other specified devices (5) Non-smoker: CODE(S): Z78.9 - Other specified health status (6) Hypertension: CODE(S): I10 - Essential (primary) hypertension (7) Debility: CODE(S): R53.81 - Other malaise (8) Myocardial infarct: CODE(S): I21.9 - Acute myocardial infarction, unspecified (9) Afib: CODE(S): I48.91 - Unspecified atrial fibrillation (10) Diffuse large B-cell lymphoma: CODE(S): C83.30 - Diffuse large B-cell lymphoma, unspecified site QUALIFIERS: Lymphoma site: extranodal excluding spleen and other solid organs Qualified Code(s): C83.39 - Diffuse large B-cell lymphoma, extranodal and solid organ sites (11) Chronic anticoagulation: CODE(S): Z79.01 - longterm (current) use of anticoagulants PLAN: Plan This is an 79-year-old paraplegic female with a stage III pressure ulceration atthe site of the left ischium. We are to continue the use of lightly moistened Fibracol topically to the ulcer on a daily basis. The patient and her family have been instructed in appropriate means of application. The laney-ulcer skin appears somewhat inflamed and macerated, likely due to leakage from her Gutierrez catheter, which has been acknowledged by the patient's family. They have been encouraged to change her undergarments as necessary to avoid prolonged period ofmoisture. We are to implement the use of a skin barrier protectant to the laney-ulcer skin as well. Continued offloading measures have been advised. The patient has a Roho cushion and an air mattress, and frequent repositioning has been recommended. The patient's sacral ulceration appears to be healed. The patient has been advised to continue with a healthy diet and nutritional supplements. She is to follow-up in 1 week for reevaluation. Total time: 25 minutes 02/26/25 1255 <Electronically signed by Oscar Steele MD> Cosigner Signature (if applicable): CC: ~ Signed [facility] Work Phone: [phone] 331-443305-09-2025 History and physical note [facility] [address] [place] [address] H&P Exam - Wound Care 02/26/25 1239 MR#: [id number] Acct: [id number] Name: CHRISTOPHER CORONEL Rep #:[id number] : 1945 79 From: Oscar Pascal PCP: Dr. Jennie Mcintyre MD Status:R EG RCR Location: ADDENDUM by Dr. Oscar Steele MD on 02/26/25 at 1258 Addendum A debridement was performed today, contrary to a mis-statement elsewhere in thisdocument that stated that no debridement was performed today. 02/26/25 1258 Cosigner Signature (if applicable): cc: ~* Signed History of Present Illness Date of Service: 02/24/25 Chief Complaint: Left ischial pressure ulceration, stage III History of Wound: This is an 79-year-old female, formerly cared for at the [facility] by a provider who has transferred to another facility. 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 She had progressive paraplegia. She went to TCU for acute rehab for this progressive paraplegia. During that time she had worsening sacral pressure sore with skin necrosis. Surgery 05/15/21 - Excision necrotic sacral pressure sore, Stage IV, with partialostectomy for osteomyelitis. Pathology from surgery on 05/15/21 of bone showed acute osteomyelitis. Operative culture, soft tissue, from 05/15/21 was positive for Escherichia coli,Klebsiella, Vanc. Resist. E. gallinarum, Vanc. Resist. E. faecalis. Operative culture, bone, from 05/15/21 was positive for Escherichia coli, Vanc. Resist. E. faecalis,Vanc. Resist. E. gallinarum. She was treated with Meropenem and Vancomycin. Linezolid was started after Vancomycin was stopped. Radiation from 05/17/21 - 06/12/21 18 treatments to T4-T7 area including paraspinal region. 06/06/21- Laparoscopic sigmoid colectomy with creation of end colostomy for fecaldiversion. She healed out her ulcers November 2023. She states that she was having issues with her urinary catheter leaking which then caused skin breakdown on her left ischial area a little before [place]. They have been using dressing supplies that they had left over (Dakin's, selena, aquacel-ag). They thought there mightbe some improvement in the ulcer, but now that it has been almost a month, they came back for further evaluation and treatment. Wound culture from 11/04/24 positive for Staphylococcus haemolyticus, Staphylococcus epidermidis, Escherichia coli, Corynebacterium striatum, and Cutibacterium acnes and she was treated with Levaquin and Linezolid. The patient denies a history of congestive heart failure, cerebrovascular accident, diabetes mellitus, thyroid disease, pulmonary disease, and renal disease. She has suffered a myocardial infarction in the past, and has had coronary revascularization performed in 2018. She is on long-term systemic a nticoagulation with warfarin. [facility] Medical History Chronic anticoagulation History of echocardiogram Wears glasses Wears dentures Uses wheelchair Indwelling urethral catheter present Anemia Non-smoker History of edema Cardiology follow-up encounter Pressure ulcer COVID-19 Decubitus ulcer of left ischium, stage 2 Pressure ulcer of right ischium MCI (mild cognitive impairment) Adrenal disorder Decubitus ulcer of left ischium, stage 4 Chronic indwelling Gutierrez catheter Hypertension Pressure sore UTI (urinary tract infection) Adynamic ileus Abdominal pain History of radiation therapy Neuropathic pain Diffuse large B cell lymphoma Paraplegia Debility Pressure ulcer of sacral region, stage 4 Osteomyelitis of pelvis Myocardial infarct Afib Pressure ulcer of sacral region, unstageable Diffuse large B-cell lymphoma Paraplegia Home Medications ?Medication ?Instructions ?Recorded ?Last Taken ?Type losartan 100 mg tablet 50 mg PO DAILY HEART 2 1 12/23/24 History amiodarone 200 mg tablet 200 mg PO DAILY@1400 HEART 0 12/12/21 Unknown History gabapentin 100 mg capsule 100 mg PO BID 12/12/2112/23 History metoprolol succinate 50 mg 25 mg PO DAILY BP 12/12/21 12/23/24 History tablet,extended release 24 hr Lactobacillus acidophilus 10 10,000 mmu cells PO DAILY @1400 01/19/22 Unknown History billion cell capsule (Probiotic) supplement atorvastatin 40 mg tablet 40 mg PO QHS cholesterol 12/12 Unknown History MINGXIA RED 1 tsp PO DAILY 12/09/24 Unkn own History sennosides 8.6 mg capsule (senna) 17.2 mg PO QHS 12/09 Unknown History warfarin 2 mg tablet 2 mg PO DAILY 12/09/2412/17 History nystatin 100,000 unit/gram topical 1 applic topical BI D 10 days #30 01/20/25 Unknown Rx cream grams Allergy/AdvReac Type Severity Reaction Status Date / Time prednisone Allergy Intermediate atrial Verified 12/23/24 07:52 fibrillation Family History Father CHF (congestive heart failure) Myocardial infarction Mother CAD (coronary artery disease) Alzheimer disease Surgical History History of colectomy H/O Spinal surgery History of cholecystectomy S/P excisional debridement S/P cholecystectomy Hx of CABG Social History household members: family housing: house number of children: 5 Smoking Status: Never smoker alcohol intake: never substance use type: does not use what type of physical activity do you participate in: other details: leg therapy/hand weights frequency: 5-6 times per week chris/pentecostalism: Buddhist Vital Signs Vital Signs Vital Signs: Weight Weight: 150 lb 11.094 oz Body Mass Index (BMI) 25.0 Physical Exam Const alert, oriented x3, no apparent distress and average body habitus Constitutional Narrative: The patient's BMI is 25.1. General Appearance: cooperative, comfortable and well developed Orientation / Consciousness: awake, oriented to person, oriented to place and oriented to time HEENT normocephalic and head/scalp atraumatic Head and Scalp: normal to inspection, normocephalic and atraumatic Face and Sinus: normal facial exam Nose: external nose normal External Ear: external ears normal Eyes EOMs intact bilaterally General Eye: normal appearance of both eyes Neck full ROM Lymph Lymphatic: Negative for lymphedema Resp normal respiratory effort, normal air movement, no retractions and no use of accessory muscles Effort and Inspection: able to speak in complete sentences GI GI Narrative: The patient has a functional colostomy. Bladder / Kidney Exam: catheter in place Extremity Extremity Narrative: Upper extremities have full ROM. Paralyzed. Skin Wound Narrative: An ulceration is noted on the left ischial region. It is full-thickness, through all layers of the dermis and into the subcutaneous tissues. This is a stage III pressure ulceration. There is no significant sign of infection or cellulitis. Ulcer margins are reasonably well beveled. Dimensions are documented elsewhere. The ulceration appears to have enlarged in size since thelast visit. The base of the ulcer is generally pink and healthy in appearance, with a small amount of bioburden. The laney-ulcer skin appears somewhat reddenedand inflamed. The ulceration in the sacral area appears to be healed and epithelialized. Neuro oriented x3 and CN's II-XII intact bilaterally Neuro Narrative: The patient is paraplegic. Sensorium / Orientation: awake, alert, oriented to person, oriented to place andoriented to time Speech: speech normal Psych mental status grossly normal, thought process normal and cooperative Appearance: appropriate Debridement Note Debridement Note Wound debrided: Left ischial pressure ulceration Laterality: Left Wound Grade/Stage: Stage III Type of Debridement: Excisional debridement Anesthesia Used: 5% Lidocaine Gel Depth: Down to and including healthy tissue and in the subcutaneous layer Percentage of wound debrided: 100 Instrument Used: 5mm curette Tissue Removed: Non viable tissue and bioburden Severity: Fat Layer Exposed Amount of bleeding with debridement: Mild Bleeding Controlled with: Compression and gauze Patient tolerated procedure: Patient tolerated procedure well No debridement was completed: No debridement was completed today Post-Debridement Measurements and Additional Note: Post-Debridement Measurements/Treatment NICOLAS - Nurse 1 - General Ulcer Assessment Start: 02/24/25 13:11 Freq: Status: Active Protocol: KRANTHI Activity Type Activity Date Activity User E-sign Co-sign Detail Recorded Client Recorded Date Recorded By Document 02/24/25 13:11 NAI [id number] 02/24/25 13:16 DL 02/24/25 13:11 WC - Today's Visit Information Type of service Follow-up Visit (Physician/MANAGER OF PLANNING ) Arrival Mode Wheelchair Transfer Assistance Will Lift Transfer Assist (Other) x2 Patient Identification Verified (Name & Yes ) Patient Requires Transmission-Based No Precautions Height and Weight Body Mass Index (BMI) 25.0 BMI Classification Overweight Vital Signs Temperature (97.8 F-99.1 F) 96.9 F L Temperature Source Temporal Pulse Rate (60-100) 60 Pulse Location Monitor Respiratory Rate (12-18) 16 Respiratory rate source Observation Blood Pressure (90/60-120/80) 121/52 H Blood Pressure Mean 75 Source Monitor History Since Last Visit- (Skip if this is Patient's initial visit) Have you changed medications since your No last visit? Any new allergies or adverse reactions No Had a fall/change in ADL's that may No increase risk of falls Signs or symptoms of abuse and/or No neglect since last visit Have you been in the hospital since your No last visit? Has dressing in place as prescribed Yes Has compression in place as prescribed N/A Has offloadiing in place as prescribed Yes Experienced any changes in pain level or No management Pain Scale: 0-10 Numeric Is Patient Pain Free? Yes - Nurse 1 - General Ulcer Measurement Start: 02/24/25 13:11 Freq: Status: Active Protocol: Activity Type Activity Date Activity User E-sign Co-sign Detail Recorded Client Recorded Date Recorded By Document 02/24/25 13:11 NAI [id number] 02/24/25 13:16 DL 02/24/25 13:11 Wound Center Nurse 1 #4 l iSCHIAL -Current Size (cm) - Length 2.5 -Current Size (cm) - Width 2.2 -Current Size (cm) - Depth 0.1 -Total Square Cm 5.50 -Photo Taken Yes -Exudate Amt Medium -Wound Margin Distinct, Outline Attached -Granulation Amt Medium (34-66%) -Granulation Quality Red -Necrosis Amt Medium (34-66%) -Necrotic Tissue Type Adherent Slough -Structure Exposed N/A -Texture (Laney-wound Skin Appearance) Scarring -Moisture (Laney-wound Skin Appearance) No Abnormality -Color (Laney-wound Skin Appearance) No Abnormality -Temperature (Laney-wound Skin No Abnormality Appearance) (Pt Warm) -Tenderness on Palpation (Laney-wound No Skin Appearance) -Ulcer Cleansing Soap and Water -Foul Odor after Cleansing No -Anesthetic Used 5% Lidocaine Gel #1 Sacral cluster -Current Size (cm) - Length 0.1 -Current Size (cm) - Width 0.1 -Current Size (cm) - Depth 0.1 -Total Square Cm 0.01 -Photo Taken Yes -Exudate Amt None Present -Wound Margin Flat & Intact -Granulation Amt Large (67-100%) -Granulation Quality Pale,[place] -Necrosis Amt None Present (0 %) -Structure Exposed N/A -Texture (Laney-wound Skin Appearance) Scarring -Moisture (Laney-wound Skin Appearance) No Abnormality -Color (Laney-wound Skin Appearance) Assessed -Temperature (Laney-wound Skin No Abnormality Appearance) (Pt Warm) -Tenderness on Palpation (Laney-wound No Skin Appearance) -Ulcer Cleansing Soap and Water -Foul Odor after Cleansing No WC - Nurse 2 - General Ulcer CM Notes Start: 02/24/25 13:11 Freq: Status: Active Protocol: Activity Type Activity Date Activity User E-sign Co-sign Detail Recorded Client Recorded Date Recorded By Document 02/24/25 13:30 [id number] 02/24/25 13:35 02/24/25 13:30 Wound Center Nurse 2 #4 l iSCHIAL -Time 13:30 -Correct Patient Yes -Correct Side, Site, Position Yes -Correct Procedure Yes -Procedure Performed Yes -Type of Procedure Debridement -Clinical Debridement Subcutaneous -Tissue Removed Subcutaneous -Post Debridement (cm) - Length 3.5 -Post Debridement (cm) - Width 2.0 -Post Debridement (cm) - Depth 0.1 -Total Square (Post) (cm) 7.00 -Area of Debridement (cm) - Length 3.5 -Area of Debridement (cm) - Width 2.0 -Total Square (Area) (cm) 7.00 -Tunneling No -Undermining/Tunneling No -Circular Undermining No -Wound/Ulcer Outcome Not Healed -Ulcer Cleansing Rinsed/ Irrigated with Saline -Foul Odor after Cleansing No -Bioengineered Tissue No -Bleeding Controlled with Pressure -Treatment Response Procedure Tolerated Well -Offloading No -Assistive Device(s) Wheelchair -Pressure Reduction Wheelchair cushion -Debridement - Subq, 1st 20sq cm Yes #1 Sacral cluster -Time 13:32 -Correct Patient Yes -Correct Side, Site, Position Yes -Correct Procedure No -Procedure Performed No -Tunneling No -Undermining/Tunneling No -Circular Undermining No -Wound/Ulcer Outcome Healed- Epithelialized -Ulcer Cleansing Not Cleansed -Foul Odor after Cleansing No -Bioengineered Tissue No -Bleeding Controlled with NA -Offloading No Pain Scale: 0-10 Numeric Is Patient Pain Free? 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, stage 3: CODE(S): L89.323 - Pressure ulcer of left buttock, stage 3 (2) Paraplegia: CODE(S): G82.20 - Paraplegia, unspecified (3) Large B-cell lymphoma: CODE(S): C85.10 - Unspecified B-cell lymphoma, unspecified site (4) Chronic indwelling Gutierrez catheter: CODE(S): Z97.8 - Presence of other specified devices (5) Non-smoker: CODE(S): Z78.9 - Other specified health status (6) Hypertension: CODE(S): I10 - Essential (primary) hypertension (7) Debility: CODE(S): R53.81 - Other malaise (8) Myocardial infarct: CODE(S): I21.9 - Acute myocardial infarction, unspecified (9) Afib: CODE(S): I48.91 - Unspecified atrial fibrillation (10) Diffuse large B-cell lymphoma: CODE(S): C83.30 - Diffuse large B-cell lymphoma, unspecified site QUALIFIERS: Lymphoma site: extranodal excluding spleen and other solid organs Qualified Code(s): C83.39 - Diffuse large B-cell lymphoma, extranodal and solid organ sites (11) Chronic anticoagulation: 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 We are to continue the use of lightly moistened Fibracol topically to the ulcer on a daily basis. The patient and her family have been instructed in appropriate means of application. The laney-ulcer skin appears somewhat inflamed and macerated, likely due to leakage from her Gutierrez catheter, which has been acknowledged by the patient's family. They have been encouraged to change her undergarments as necessary to avoid prolonged period ofmoisture. We are to implement the use of a skin barrier protectant to the laney-ulcer skin as well. Continued offloading measures have been advised. The patient has a Roho cushion and an air mattress, and frequent repositioning has been recommended. The patient's sacral ulceration appears to be healed. The patient has been advised to continue with ahealthy diet and nutritional supplements. She is to follow-up in 1 week for reevaluation. Total time: 25 minutes 02/26/25 1255 Cosigner Signature (if applicable): CC: ~ Signed [facility]04-23-2025 Evaluation note* Diagnosis Onset Date Resolution Status Admit Date Afib acute February 10 1:15pm Chronic anticoagulation acute A pril 2024 1:15pm Debility acute February 10 1:15pm Decubitus ulcer of left laney ginger ischial region, stage 3 acute February 102024 1:15pm Diffuse large B-cell lymphoma acute February 10, 2025 1:15pm Myocardial infarct acute February 10, 2025 1:15pm Non-smoker acute February 10 1:15pm Chronic indwelling Gutierrez catheter ch ronic February 10, 2025 1:15pm Hypertension chronic February 10, 2025 1:15pm Large B-cell lymphoma chronic Apr 2024 1:15pm Paraplegia chronic February 10 1:15pm Afib acute March 17, 2025 1:35pm Chronic anticoagulation acute M ay 2024 1:35pm Debility acute March 17, 2025 1:35pm Decubitus ulcer of left laney ginger ischial region, stage 3 acute February 1:35pm Diffuse large B-cell lymphoma acute March 17, 2025 1:35pm Myocardial infarct acute March 172024 1:35pm Non-smoker acute March 17, 2025 1:35pm Chronic indwelling Gutierrez catheter ch ronic March 17, 2025 1:35pm Hypertension chronic March 17 1:35pm Large B-cell lymphoma chronic March 17, 2025 1:35pm Paraplegia chronic March 17, 2025 1:35pm Afib acute April 14 1:30pm Chronic anticoagulation acute J 2024 1:30pm Debility acute April 14 1:30pm Decubitus ulcer of left laney ginger ischial region, stage 3 acute March 1:30pm Diffuse large B-cell lymphoma acute April 14, 2025 1:30pm Myocardial infarct acute March 222024 1:30pm Non-smoker acute April 14 1:30pm Pressure ulcer of ischium, s tage 3 acute April 14, 2025 1:30pm Chronic indwelling Gutierrez catheter ch ronic April 14, 2025 1:30pm Hypertension chronic April 14, 2 025 1:30pm Large B-cell lymphoma chronic Mar 1:30pm Paraplegia chronic April 14 1:30pm Afib acute May 18 11:15am Chronic anticoagulation acute J 2024 11:15am Debility acute May 18 11:15am Decubitus ulcer of left laney ginger ischial region, stage 3 acute April 11:15am Diffuse large B-cell lymphoma acute May 18, 2025 11:15am Myocardial infarct acute April 212024 11:15am Non-smoker acute May 18 11:15am Pressure ulcer of ischium, s tage 3 acute May 18, 2025 11:15am Chronic indwelling Gutierrez catheter ch ronic May 18, 2025 11:15am Hypertension chronic May 18, 2 025 11:15am Large B-cell lymphoma chronic Apr 11:15am Paraplegia chronic May 18 11:15[facility] Work Phone: [phone]) 383-383403-14-2025 Progress note Author Barbra Esparza [facility] Note Date/Time January 01, 2025 2:4 6pm [facility] [address] [place] [address] Progress Note - Wound Care 12/30/24 1524 MR#: [id number] Acct: [id number] Name: CHRISTOPHER CORONEL Rep #:[id number] : 1945 79 From: Barbra Waldrop RECORDS AND INFORMATION MANAGER RECORDS AND INFORMATION MANAGER-C PCP: Dr. 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 Shehad progressive paraplegia. She went to TCU for acute rehab for this progressive paraplegia. During that time she had worsening sacral pressure sorewith skin necrosis. Surgery 05/15/21 - Excision necrotic sacral pressure sore, Stage IV, with partialostectomy for osteomyelitis. Pathology from surgery on 05/15/21 of bone showed acute osteomyelitis. Operative culture, soft tissue, from 05/15/21 was positive for Escherichia coli,Klebsiella, Vanc. Resist. E. gallinarum, Vanc. Resist. E. faecalis. Operative culture, bone, from 05/15/21 was positive for Escherichia coli, Vanc. Resist. E. faecalis, Vanc. Resist. E. gallinarum. She was treated with Meropenem and Vancomycin. Linezolid was started after Vancomycin was stopped. Radiation from 05/17/21 - 06/12/21 18 treatments to T4-T7 area including paraspinal region. 06/06/21- Laparoscopic sigmoid colectomy with creation of end colostomy for fecaldiversion. She healed out her ulcers November 2023. She states that she was having issues with her urinary catheter leaking which then caused skin breakdown on her left ischial area a little before Antoine. They have been using dressing supplies that they had left over (Dakin's, selena, aquacel-ag). They thought there mightbe some improvement in the ulcer, but now that it has been almost a month, they came back for further evaluation and treatment. Wound culture from 11/04/24 positive for Staphylococcus haemolyticus, Staphylococcus epidermidis, Escherichia coli, Corynebacterium striatum, and Cutibacterium acnes and she was treated with Levaquin and Linezolid. Today she denies any fever. Her appetite is ok. Progress of Wound: Left ischial ulcer is slightly smaller today. It is beefy pink ulcer. Laney wound is clear. There is some non viable tissue present in the base of the ulcer. Objective Data Objective Data Vital Signs: Vital Signs Temp Pulse Resp BP O2 Del Method 97.7 F L 64 16 156/75 H Room Air 12/30/24 13:11 12/30/24 13:11 12/30/24 13:11 12/30/24 13:11 12/30/24 13:11 Oxygen Delivery Method Room Air Weight: 150 lb 11.094 oz Body Mass Index (BMI) 25.0 Charges/Coding Procedures Integumentary 111xxx-113xx: 27279 Casie subq tissue 20 sq cm/< Debridement Note Debridement Note Wound debrided: ischial ulcer Laterality: Left Wound Grade/Stage: Stage 3 Type of Debridement: Excisional debridement Anesthesia Used: 5% Lidocaine Gel Depth: Down to and including healthy tissue and in the subcutaneous layer Percentage of wound debrided: 100 Instrument Used: 3mm curette Tissue Removed: Non viable tissue and slough Severity: Fat Layer Exposed Amount of bleeding with debridement: Mild Bleeding Controlled with: Compression and gauze Patient tolerated procedure: Patient tolerated procedure well Post-Debridement Measurements and Additional Note: Post-Debridement Measurements/Treatment - Nurse 1 - General Ulcer Assessment Start: 12/30/24 13:11 Freq: Status: Active Protocol: KRANTHI Activity Type Activity Date Activity User E-sign Co-sign Detail Recorded Client Recorded Date Recorded By Document 12/30/24 13:11 [facility] [id number] 12/30/24 13:14 [facility] 12/30/24 13:11 - Today's Visit Information Type of service Follow-up Visit (Physician/MANAGER OF PLANNING ) Arrival Mode Wheelchair Transfer Assistance Will Lift Accompanied by DAUGHTER AND Patient Identification Verified (Name & Yes ) Height and Weight Body Mass Index (BMI) 25.0 BMI Classification Overweight Vital Signs Temperature (97.8 F-99.1 F) 97.7 F L Temperature Source Temporal Pulse Rate (60-100) 64 Pulse Location Monitor Respiratory Rate (12-18) 16 Respiratory rate source Observation Oxygen Delivery Method Room Air Blood Pressure (90/60-120/80) 156/75 H Blood Pressure Mean (mm Hg) 102 Source Monitor Position Sitting Blood Pressure Location Right Arm History Since Last Visit- (Skip if this is Patient's initial visit) Have you changed medications since your No last visit? Any new allergies or adverse reactions No Had a fall/change in ADL's that may No increase risk of falls Signs or symptoms of abuse and/or No neglect since last visit Have you been in the hospital since your No last visit? Has dressing in place as prescribed Yes Has compression in place as prescribed N/A Has offloadiing in place as prescribed N/A Experienced any changes in pain level or No management Left Footwear Slipper Right Footwear Slipper Pain Scale: 0-10 Numeric Is Patient Pain Free? Yes WC - Nurse 1 - General Ulcer Measurement Start: 12/30/24 13:11 Freq: Status: Active Protocol: Activity Type Activity Date Activity User E-sign Co-sign Detail Recorded Client Recorded Date Recorded By Document 12/30/24 13:11 [facility] [id number] 12/30/24 13:14 [facility] 12/30/24 13:11 Wound Center Nurse 1 #4 l iSCHIAL -Current Size (cm) - Length 1.5 -Current Size (cm) - Width 0.5 -Current Size (cm) - Depth 0.1 -Total Square Cm 0.75 -Date of Last Picture (Recall this 12/30/24 field) -Photo Taken Yes -Tunneling No -Undermining/Tunneling No -Circular Undermining No -Exudate Amt Medium -Exudate Type Serosanguineous -Wound Margin Distinct, Outline Attached -Granulation Amt Medium (34-66%) -Granulation Quality Red -Slough/Fibrin Yes -Necrosis Amt Medium (34-66%) -Necrotic Tissue Type Adherent Slough -Texture (Laney-wound Skin Appearance) Assessed, Scarring -Moisture (Laney-wound Skin Appearance) Assessed, Maceration -Color (Laney-wound Skin Appearance) Assessed -Temperature (Laney-wound Skin No Abnormality Appearance) (Pt Warm) -Tenderness on Palpation (Laney-wound No Skin Appearance) -Ulcer Cleansing Rinsed/ Irrigated with Saline -Foul Odor after Cleansing No -Anesthetic Used 5% Lidocaine Gel - Nurse 2 - General Ulcer CM Notes Start: 12/30/24 13:11 Freq: Status: Active Protocol: Activity Type Activity Date Activity User E-sign Co-sign Detail Recorded Client Recorded Date Recorded By Document 12/30/24 13:27 [id number] 12/30/24 13:32 12/30/24 13:27 Wound Center Nurse 2 -Time 13:27 -Correct Patient Yes -Correct Side, Site, Position Yes -Correct Procedure Yes -Procedure Performed Yes -Type of Procedure Debridement -Clinical Debridement Subcutaneous -Tissue Removed Subcutaneous -Post Debridement (cm) - Length 1.5 -Post Debridement (cm) - Width 0.5 -Post Debridement (cm) - Depth 0.1 -Total Square (Post) (cm) 0.75 -Area of Debridement (cm) - Length 1.5 -Area of Debridement (cm) - Width 0.5 -Total Square (Area) (cm) 0.75 -Tunneling No -Undermining/Tunneling No -Circular Undermining No -Wound/Ulcer Outcome Not Healed -Ulcer Cleansing Rinsed/ Irrigated with Saline -Foul Odor after Cleansing No -Bioengineered Tissue No -Bleeding Controlled with Pressure -Treatment Response Procedure Tolerated Well -Offloading No -Debridement - Subq, 1st 20sq cm Yes Pain Scale: 0-10 Numeric Is Patient Pain Free? Yes - Nurse 3 - General Ulcer D/C NN Start: 12/30/24 13:11 Freq: Status: Active Protocol: Activity Type Activity Date Activity User E-sign Co-sign Detail Recorded Client Recorded Date Recorded By Document 12/30/24 13:42 CO [id number] 12/30/24 13:58 CO 12/30/24 13:42 Wound Care Center Nurse 3 #4 l iSCHIAL -Primary Dressing Applied Fibracol Plus 4x4,Silicone Border Foam 4x4 -Fibracol Plus 4x4 1 -Silicone Border Foam 4x4 1 Pain Scale: 0-10 Numeric Is Patient Pain Free? Yes WC - Visit Discharge Discharge Condition Stable Ambulatory Status Wheelchair Transportation Private Auto Medication Reconcilliation completed & No provided to patient/care provider Clinical Summary of Care Provided Yes Notes: [facility] FOR PT Assessment/Plan Assessment/Plan (1) 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, stage 3: CODE(S): L89.323 - Pressure ulcer of left buttock, stage 3 (2) Paraplegia: CODE(S): G82.20 - Paraplegia, unspecified (3) Large B-cell lymphoma: CODE(S): C85.10 - Unspecified B-cell lymphoma, unspecified site (4) Chronic indwelling Gutierrez catheter: CODE(S): Z97.8 - Presence of other specified devices PLAN: Plan Patient evaluated at the wound healing center. A wound culture from 11/04/24 positive for Staphylococcus haemolyticus, Staphylococcus epidermidis, Escherichia coli, Corynebacterium striatum, and Cutibacterium acnes and she was treated with Levaquin and Linezolid. Wound care - Fibrocol + lightly moistened, if needed, covered with gauze/ABD daily. Wash area with soap and water daily. Barrier cream to laney wound area. Encourage nutritional supplementation with protein to help the healing process. Follow up 3 weeks. Phone if develop any concerns. 01/01/25 2516 <Electronically signed by Barbra Esparza NP RECORDS AND INFORMATION MANAGER-C> Cosigner Signature (if applicable): CC: ~ Signed [facility] Work Phone: 1(886) 858-488803-14-2025 Progress note [facility] [address] [place] [address] Progress Note - Wound Care 12/30/24 1524 MR#: [id number] Acct: [id number] Name: CHRISTOPHER CORONEL Rep #:[id number] : 1945 79 From: Barbra lema RECORDS AND INFORMATION MANAGER RECORDS AND INFORMATION MANAGER-C PCP: Dr. 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 Shehad progressive paraplegia. She went to TCU for acute rehab for this progressive paraplegia. During that time she had worsening sacral pressure sorewith skin necrosis. Surgery 05/15/21 - Excision necrotic sacral pressure sore, Stage IV, with partialostectomy for osteomyelitis. Pathology from surgery on 05/15/21 of bone showed acute osteomyelitis. Operative culture, soft tissue, from 05/15/21 was positive for Escherichia coli,Klebsiella, Vanc. Resist. E. gallinarum, Vanc. Resist. E. faecalis. Operative culture, bone, from 05/15/21 was positive for Escherichia coli, Vanc. Resist. E. faecalis,Vanc. Resist. E. gallinarum. She was treated with Meropenem and Vancomycin. Linezolid was started after Vancomycin was stopped. Radiation from 05/17/21 - 06/12/21 18 treatments to T4-T7 area including paraspinal region. 06/06/21- Laparoscopic sigmoid colectomy with creation of end colostomy for fecaldiversion. She healed out her ulcers November 2023. She states that she was having issues with her urinary catheter leaking which then caused skin breakdown on her left ischial area a little before Antoine. They have been using dressing supplies that they had left over (Dakin's, selena, aquacel-ag). They thought there mightbe some improvement in the ulcer, but now that it has been almost a month, they came back for further evaluation and treatment. Wound culture from 11/04/24 positive for Staphylococcus haemolyticus, Staphylococcus epidermidis, Escherichia coli, Corynebacterium striatum, and Cutibacterium acnes and she was treated with Levaquin and Linezolid. Today she denies any fever. Her appetite is ok. Progress of Wound: Left ischial ulcer is slightly smaller today. It is beefy pink ulcer. Laney wound is clear. There issome non viable tissue present in the base of the ulcer. Objective Data Objective Data Vital Signs: Vital Signs Temp Pulse Resp BP O2 Del Method 97.7 F L 64 16 156/75 H Room Air 12/30/24 13:11 12/30/24 13:11 12/30/24 13:11 12/30/24 13:11 12/30/24 13:11 Oxygen Delivery Method Room Air Weight: 150 lb 11.094 oz Body Mass Index (BMI) 25.0 Charges/Coding Procedures Integumentary 111xxx-113xx: 73502 Casie subq tissue 20 sq cm/< Debridement Note Debridement Note Wound debrided: ischial ulcer Laterality: Left Wound Grade/Stage: Stage 3 Type of Debridement: Excisional debridement Anesthesia Used: 5% Lidocaine Gel Depth: Down to and including healthy tissue and in the subcutaneous layer Percentage of wound debrided: 100 Instrument Used: 3mm curette Tissue Removed: Non viable tissue and slough Severity: Fat Layer Exposed Amount of bleeding with debridement: Mild Bleeding Controlled with: Compression and gauze Patient tolerated procedure: Patient tolerated procedure well Post-Debridement Measurements and Additional Note: Post-Debridement Measurements/Treatment - Nurse 1 - General Ulcer Assessment Start: 12/30/24 13:11 Freq: Status: Active Protocol: KRANTHI Activity Type Activity Date Activity User E-sign Co-sign Detail Recorded Client Recorded Date Recorded By Document 12/30/24 13:11 [facility] [id number] 12/30/24 13:14 [facility] 12/30/24 13:11 - Today's Visit Information Type of service Follow-up Visit (Physician/MANAGER OF PLANNING ) Arrival Mode Wheelchair Transfer Assistance Will Lift Accompanied by DAUGHTER AND Patient Identification Verified (Name & Yes ) Height and Weight Body Mass Index (BMI) 25.0 BMI Classification Overweight Vital Signs Temperature (97.8 F-99.1 F) 97.7 F L Temperature Source Temporal Pulse Rate (60-100) 64 Pulse Location Monitor Respiratory Rate (12-18) 16 Respiratory rate source Observation Oxygen Delivery Method Room Air Blood Pressure (90/60-120/80) 156/75 H Blood Pressure Mean (mm Hg) 102 Source Monitor Position Sitting Blood Pressure Location Right Arm History Since Last Visit- (Skip if this is Patient's initial visit) Have you changed medications since your No last visit? Any new allergies or adverse reactions No Had a fall/change in ADL's that may No increase risk of falls Signs or symptoms of abuse and/or No neglect since last visit Have you been in the hospital since your No last visit? Has dressing in place as prescribed Yes Has compression in place as prescribed N/A Has offloadiing in place as prescribed N/A Experienced any changes in pain level or No management Left Footwear Slipper Right Footwear Slipper Pain Scale: 0-10 Numeric Is Patient Pain Free? Yes WC - Nurse 1 - General Ulcer Measurement Start: 12/30/24 13:11 Freq: Status: Active Protocol: Activity Type Activity Date Activity User E-sign Co-sign Detail Recorded Client Recorded Date Recorded By Document 12/30/24 13:11 [facility] [id number] 12/30/24 13:14 [facility] 12/30/24 13:11 Wound Center Nurse 1 #4 l iSCHIAL -Current Size (cm) - Length 1.5 -Current Size (cm) - Width 0.5 -Current Size (cm) - Depth 0.1 -Total Square Cm 0.75 -Date of Last Picture (Recall this 12/30/24 field) -Photo Taken Yes -Tunneling No -Undermining/Tunneling No -Circular Undermining No -Exudate Amt Medium -Exudate Type Serosanguineous -Wound Margin Distinct, Outline Attached -Granulation Amt Medium (34-66%) -Granulation Quality Red -Slough/Fibrin Yes -Necrosis Amt Medium (34-66%) -Necrotic Tissue Type Adherent Slough -Texture (Laney-wound Skin Appearance) Assessed, Scarring -Moisture (Laney-wound Skin Appearance) Assessed, Maceration -Color (Laney-wound Skin Appearance) Assessed -Temperature (Laney-wound Skin No Abnormality Appearance) (Pt Warm) -Tenderness on Palpation (Laney-wound No Skin Appearance) -Ulcer Cleansing Rinsed/ Irrigated with Saline -Foul Odor after Cleansing No -Anesthetic Used 5% Lidocaine Gel WC - Nurse 2 - General Ulcer CM Notes Start: 12/30/24 13:11 Freq: Status: Active Protocol: Activity Type Activity Date Activity User E-sign Co-sign Detail Recorded Client Recorded Date Recorded By Document 12/30/24 13:27 [id number] 12/30/24 13:32 12/30/24 13:27 Wound Center Nurse 2 -Time 13:27 -Correct Patient Yes -Correct Side, Site, Position Yes -Correct Procedure Yes -Procedure Performed Yes -Type of Procedure Debridement -Clinical Debridement Subcutaneous -Tissue Removed Subcutaneous -Post Debridement (cm) - Length 1.5 -Post Debridement (cm) - Width 0.5 -Post Debridement (cm) - Depth 0.1 -Total Square (Post) (cm) 0.75 -Area of Debridement (cm) - Length 1.5 -Area of Debridement (cm) - Width 0.5 -Total Square (Area) (cm) 0.75 -Tunneling No -Undermining/Tunneling No -Circular Undermining No -Wound/Ulcer Outcome Not Healed -Ulcer Cleansing Rinsed/ Irrigated with Saline -Foul Odor after Cleansing No -Bioengineered Tissue No -Bleeding Controlled with Pressure -Treatment Response Procedure Tolerated Well -Offloading No -Debridement - Subq, 1st 20sq cm Yes Pain Scale: 0-10 Numeric Is Patient Pain Free? Yes - Nurse 3 - General Ulcer D/C NN Start: 12/30/24 13:11 Freq: Status: Active Protocol: Activity Type Activity Date Activity User E-sign Co-sign Detail Recorded Client Recorded Date Recorded By Document 12/30/24 13:42 CO [id number] 12/30/24 13:58 CO 12/30/24 13:42 Wound Care Center Nurse 3 #4 l iSCHIAL -Primary Dressing Applied Fibracol Plus 4x4,Silicone Border Foam 4x4 -Fibracol Plus 4x4 1 -Silicone Border Foam 4x4 1 Pain Scale: 0-10 Numeric Is Patient Pain Free? Yes - Visit Discharge Discharge Condition Stable Ambulatory Status Wheelchair Transportation Private Auto Medication Reconcilliation completed & No provided to patient/care provider Clinical Summary of Care Provided Yes Notes: [facility] Assessment/Plan Assessment/Plan (1) 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, stage 3: CODE(S): L89.323 - Pressure ulcer of left buttock, stage 3 (2) Paraplegia: CODE(S): G82.20 - Paraplegia, unspecified (3) Large B-cell lymphoma: CODE(S): C85.10 - Unspecified B-cell lymphoma, unspecified site (4) Chronic indwelling Gutierrez catheter: CODE(S): Z97.8 - Presence of other specified devices PLAN: Plan Patient evaluated at the wound healing center. A wound culture from 11/04/24 positive for Staphylococcus haemolyticus, Staphylococcus epidermidis, Escherichia coli, Corynebacterium striatum, and Cutibacterium acnes and she was treated with Levaquin and Linezolid. Wound care - Fibrocol + lightly moistened, if needed, covered with gauze/ABD daily. Wash area with soap and water daily. Barrier cream to laney wound area. Encourage nutritional supplementation with protein to help the healing process. Follow up 3 weeks. Phone if develop any concerns. 01/01/25 0235 Cosigner Signature (if applicable): CC: ~ Signed [facility]03-12-2025 Evaluation note* Diagnosis Onset Date Resolution Status Admit Date Decubitus ulcer of left laney gingre ischial region, stage 3 acute December 302024 1:07pm Chronic indwelling Gutierrez catheter ch ronic December 30, 2024 1:07pm Large B-cell lymphoma chronic Mar 2024 1:07pm Paraplegia chronic December 30 1:07pm Afib acute February 10 1:15pm Chronic anticoagulation acute A pril 2024 1:15pm Debility acute February 10 1:15pm Decubitus ulcer of left laney ginger ischial region, stage 3 acute February 102024 1:15pm Diffuse large B-cell lymphoma acute February 10, 2025 1:15pm Myocardial infarct acute February 10, 2025 1:15pm Non-smoker acute February 10 1:15pm Chronic indwelling Gutierrez catheter ch ronic February 10, 2025 1:15pm Hypertension chronic February 10, 2025 1:15pm Large B-cell lymphoma chronic Apr 2024 1:15pm Paraplegia chronic February 10 1:15pm Afib acute March 17, 2025 1:35pm Chronic anticoagulation acute M ay 2024 1:35pm Debility acute March 17, 2025 1:35pm Decubitus ulcer of left laney ginger ischial region, stage 3 acute February 1:35pm Diffuse large B-cell lymphoma acute March 17, 2025 1:35pm Myocardial infarct acute March 172024 1:35pm Non-smoker acute March 17, 2025 1:35pm Chronic indwelling Gutierrez catheter ch ronic March 17, 2025 1:35pm Hypertension chronic March 17 1:35pm Large B-cell lymphoma chronic March 17, 2025 1:35pm Paraplegia chronic March 17, 2025 1:35pm Afib acute April 14 1:30pm Chronic anticoagulation acute J 2024 1:30pm Debility acute April 14 1:30pm Decubitus ulcer of left laney ginger ischial region, stage 3 acute March 1:30pm Diffuse large B-cell lymphoma acute April 14, 2025 1:30pm Myocardial infarct acute March 222024 1:30pm Non-smoker acute April 14 1:30pm Pressure ulcer of ischium, s tage 3 acute April 14, 2025 1:30pm Chronic indwelling Gutierrez catheter ch ronic April 14, 2025 1:30pm Hypertension chronic April 14, 025 1:30pm Large B-cell lymphoma chronic Mar 1:30pm Paraplegia chronic April 14 1:30pm [facility] Work Phone: 1(574) 549-271803-05-2025 [facility] Medical Records Department [address] [place] [address] History Physical Exam 12/23/24 0850 MR#: [id number] Acct: [id number] Name: CHRISTOPHER CORONEL Rep #: [id number] : 1945 79 From: Yomi Rose MD PCP: Dr. Jennie Mcintyre MD Status:[facility] Location: [place] [address] HPI - General General Date of Service: 12/23/24 Chief Complaint: Bladder stones HPI Narrative CHRISTOPHER CORONEL, is a 79 F who presents cystoscopy diagnostic and removal laser of bladder stones and placement of Gutierrez PFSH Medical History History of echocardiogram Wears glasses Wears dentures Uses wheelchair Indwelling urethral catheter present Anemia Non-smoker History of edema Cardiology follow-up encounter Pressure ulcer COVID-19 Decubitus ulcer of left ischium, stage 2 Pressure ulcer of right ischium MCI (mild cognitive impairment) Adrenal disorder Decubitus ulcer of left ischium, stage 4 Chronic indwelling Gutierrez catheter Hypertension Pressure sore UTI (urinary tract infection) Adynamic ileus Abdominal pain History of radiation therapy Neuropathic pain Diffuse large B cell lymphoma Paraplegia Debility Pressure ulcer of sacral region, stage 4 Osteomyelitis of pelvis Myocardial infarct Afib Pressure ulcer of sacral region, unstageable Diffuse large B-cell lymphoma Paraplegia Home Medications ???Medication ???Instructions ???Recorded ???Last Taken ???Type losartan 100 mg tablet 50 mg PO DAILY HEART 10/07/21 03/03/14 History amiodarone 200 mg tablet 200 mg PO DAILY@1400 HEART 2 Unknown History gabapentin 100 mg capsule 100 mg PO BID 12/12/21 12/23/24 Hi story metoprolol succinate 50 mg 25 mg PO DAILY BP 12/12/21 5 History tablet,extended release 24 hr Lactobacillus acidophilus 10 10,000 mmu cells PO DAILY@1400 11/11 Unknown History billion cell capsule (Probiotic) supplement atorvastatin 40 mg tablet 40 mg PO QHS cholesterol 01/20/22 Unknown History MINGXIA RED 1 tsp PO DAILY 12/09/24 Unknown Hi story sennosides 8.6 mg capsule (senna) 17.2 mg PO QHS 12/09/24 Unknown H istory warfarin 2 mg tablet 2 mg PO DAILY 12/09/24 12/17/24 Hi story Allergy/AdvReac Type Severity Reaction Status Date / Time prednisone Allergy Intermediate atrial Verified 12/23/24 07:52 fibrillation Family History Father CHF (congestive heart failure) Myocardial infarction Mother CAD (coronary artery disease) Alzheimer disease Surgical History History of colectomy H/O Spinal surgery History of cholecystectomy S/P excisional debridement S/P cholecystectomy Hx of CABG Social History household members: family housing: house number of children: 5 Smoking Status: Never smoker alcohol intake: never substance use type: does not use what type of physical activity do you participate in: other details: leg therapy/hand weights frequency: 5-6 times per week chris/pentecostalism: Buddhist Vital Signs Vital Signs Vital Signs: 12/23/24 07:58 12/23/24 07:58 Temperature 98.4 F Temperature Source Temporal Pulse Rate 62 Respiratory Rate 16 Respiratory Pattern Normal Blood Pressure 164/69 H Blood Pressure Mean 100 Blood Pressure Source Monitor Blood Pressure Position Semi-Fowlers Blood Pressure Location Left Arm Pulse Ox 99 Oxygen Delivery Method Room Air Weight Weight: 83.915 kg Body Mass Index (BMI) 30.7 12/23/24 0850 Cosigner Signature (if applicable): CC: Dr. Yomi Rose MD; Dr. Jennie Mcintyre MD [facility]02-26-2025 Evaluation note* Diagnosis Onset Date Resolution Status Admit Date 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, stage 3 acute December 16, 2 025 1:05pm Chronic indwelling Gutierrez catheter chronic December 16 025 1:05pm Large B-cell lymphoma chronic Feb ruary 2024 1:05pm Paraplegia chronic December 16, 2024 1:05pm 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, stage 3 acute December 30, 2024 1:07pm Chronic indwelling Gutierrez catheter chronic December 30, 2024 1:07pm Large B-cell lymphoma chronic Dec 1:07pm Paraplegia chronic December 30 1:07pm Afib acute February 10 1:15pm Chronic anticoagulation acute A pril 2024 1:15pm Debility acute February 10 1:15pm 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, stage 3 acute February 10, 2025 1:15pm Diffuse large B-cell lymphoma acute February 10, 2025 1:15pm Myocardial infarct acute February 10, 2025 1:15pm Non-smoker acute February 10 1:15pm Chronic indwelling Gutierrez catheter chronic February 10, 2025 1:15pm Hypertension chronic February 10, 2025 1:15pm Large B-cell lymphoma chronic Apr 2024 1:15pm Paraplegia chronic February 10 1:15pm Afib acute March 17, 2025 1:35pm Chronic anticoagulation acute M ay 2024 1:35pm Debility acute March 17, 2025 1:35pm 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, stage 3 acute March 17, 2025 1 :35pm Diffuse large B-cell lymphoma acute March 17, 2025 1:35pm Myocardial infarct acute March 172024 1:35pm Non-smoker acute March 17, 2025 1:35pm Chronic indwelling Gutierrez catheter chronic March 17, 2025 1 :35pm Hypertension chronic March 17 1:35pm Large B-cell lymphoma chronic March 17, 2025 1:35pm Paraplegia chronic March 17, 2025 1:35pm [facility] Work Phone: 1(797) 875-731201-29-2025 Evaluation note* Diagnosis Onset Date Resolution Status Admit Date 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, stage 3 acute November 18 1:00pm Chronic indwelling Gutierrez catheter chronic November 18 1:00pm Large B-cell lymphoma chronic Earl ua2024 1:00pm Paraplegia chronic November 18, 2024 1:00pm 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, stage 3 acute December 16, 025 1:05pm Chronic indwelling Gutierrez catheter chronic December 16, 025 1:05pm Large B-cell lymphoma chronic b ruary 2024 1:05pm Paraplegia chronic December 16, 2024 1:05pm 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, stage 3 acute December 30, 2024 1:07pm Chronic indwelling Gutierrez catheter chronic December 30, 2024 1:07pm Large B-cell lymphoma chronic Dec 1:07pm Paraplegia chronic December 30 1:07pm [facility] Work Phone: 1(888) 493-898512-06-2024 NoteDischarge Instructions Discharge Summary [address] [address] [id number] 09/24/2024 Patient: CHRISTOPHER CORONEL Sex: Female : 1945 Age: 78y Thank you for visiting [facility]. You have been evaluated today by Lizeth Delacruz D.O. for the following condition(s): Principal Diagnosis Gutierrez catheter replacement INSTRUCTIONS Follow-up: Follow up with your healthcare provider in two days even if well. Follow up with a urologist in twoeven if well. Call for the next available appointment. You have been given the following additional information: Gutierrez Catheter Care Patient Signature Facility Manager Administrative Services Date/Time 1 of 3 Discharge Instructions General Instructions with ExitWriter [address] [place] [address] [id number] 09/24/2024 Patient: CHRISTOPHER CORONEL Sex: Female : 1945 Age: 78y Thank you for visiting [facility]. You have been evaluated today by Lizeth Delacruz D.O. for the following condition(s): Principal Diagnosis Gutierrez catheter replacement INSTRUCTIONS Follow-up: Follow up with your healthcare provider in two days even if well. Follow up with a urologist in twoeven if well. Call for the next available appointment. ADDITIONAL INFORMATION Gutierrez Catheter Care A Gutierrez catheter is a rubber tube that is placed through the urethra and into the bladder. The urethra is the opening where urine comes out. The catheter helps drain urine from the bladder. There is a small balloon on the 2 of 3 Discharge Instructions end of the tube that is inflated after the catheter is put in place. This keeps the catheter from sliding out of the bladder. A Gutierrez catheter is used when you are unable to pass urine (urinary retention). It's also used whenthere is loss of bladder control (incontinence). Home care Finish taking any prescribed antibiotic medicine even if you are feeling better before then. It's important to keep bacteria from getting into the collection bag. Don't disconnect the catheterfrom the collection bag. Use a leg band to secure the drainage tube, so it doesn't pull on the catheter. Drain the collection bag when it becomes full using the drain spout at the bottom of the bag. Don't try to pull or remove your catheter. This will injure your urethra. It must be removed by your healthcare provider or nurse. Follow-up care Follow up with your healthcare provider, or as advised. This is for repeat urine testing and for catheter removal or replacement. When to seek medical advice Call your healthcare provider right away if any of these occur: Fever of 100.4F (38C) or higher, or as directed by your healthcare provider Bladder pain or fullness Abdominal swelling, nausea or vomiting, or back pain Blood or urine leakage around the catheter Bloody urine coming from the catheter (if a new symptom) Catheter falls out Catheter stops draining for 6 hours Weakness, dizziness, or fainting [facility] Progress note Author Brice Maciel [facility] December 02, 2023 11:06am Note Date/Time December 02, 2023 10:54am [facility] [address] [place] [address] Progress Note - Wound Care 12/02/23 1053 MR#: [id number] Acct: [id number] Name: CHRISTOPHER CORONEL Rep #:[id number] : 1945 78 From: Brice Pascal PCP: Dr. 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 She had progressive paraplegia. She went to TCU for acute rehab for this progressive paraplegia. During that time she had worsening sacral pressure sore with skin necrosis. Surgery 05/15/21 - Excision necrotic sacral pressure sore, Stage IV, with partialostectomy for osteomyelitis. Pathology from surgery on 05/15/21 of bone showed acute osteomyelitis. Operative culture, soft tissue, from 05/15/21 was positive for Escherichia coli,Klebsiella, Vanc. Resist. E. gallinarum, Vanc. Resist. E. faecalis. Operative culture, bone, from 05/15/21 was positive for Escherichia coli, Vanc. Resist. E. faecalis, Vanc. Resist. E. gallinarum. She was treated with Meropenem and Vancomycin. Linezolid was started after Vancomycin was stopped. Radiation from 05/17/21 - 06/12/21 18 treatments to T4-T7 area including paraspinal region. 06/06/21- Laparoscopic sigmoid colectomy with creation of end colostomy for fecaldiversion. Wound culture from 07/29/23 was positive for Staphylococcus epidermidis and Corynebacterium striatum. She was treated with Augmentin. Prealbumin from 05/17/21 was 4.9. Encourage nutritional supplementation with protein to help the healing process. Wound care - Hydrogel alternating with Fibracol. Today she denies any fever. Her appetite is ok. Progress of Wound: Healed. Objective Data Objective Data Vital Signs: Vital Signs Temp Pulse Resp BP O2 Del Method 96.6 F L 59 L 18 152/52 H Room Air 12/02/23 10:38 12/02/23 10:38 12/02/23 10:38 12/02/23 10:38 12/02/23 10:38 Oxygen Delivery Method Room Air Weight: 155 lb 11.464 oz Body Mass Index (BMI) 25.9 Prealbumin from 05/17/21 was 4.9.? Encourage nutritional supplementation with protein to help the healing process. Lab / Micro Data Attestation: I reviewed the patient's lab results. Charges/Coding Visit Charges Office Visits / Consults: 58637 OV L3 Est 20min (ICD-10 - L89.154, M86.9, G82.20, C85.10, Z97.8) Debridement Note Debridement Note Wound debrided: #1 Sacral area. Laterality: Not Applicable Wound Grade/Stage: IV. No debridement was completed: No debridement was completed today (The sacral ulcer has healed.) Post-Debridement Measurements and Additional Note: Post-Debridement Measurements/Treatment - Nurse 1 - General Ulcer Assessment Start: 12/02/23 10:32 Freq: Status: Active Protocol: NICOLAS.LOWASCENCION Activity Type Activity Date Activity User E-sign Co-sign Detail Recorded Client Recorded Date Recorded By Document 12/02/23 10:38 [facility] Desktop 12/02/23 10:40 [facility] 12/02/23 10:38 - Today's Visit Information Type of service Follow-up Visit (Physician/MANAGER OF PLANNING ) Arrival Mode Wheelchair Patient Identification Verified (Name & Yes ) Height and Weight Body Mass Index (BMI) 25.9 BMI Classification Overweight Vital Signs Temperature (97.8 F-99.1 F) 96.6 F L Temperature Source Temporal Pulse Rate (60-100) 59 L Pulse Location Monitor Respiratory Rate (12-18) 18 Respiratory rate source Observation Oxygen Delivery Method Room Air Blood Pressure (90/60-120/80) 152/52 H Blood Pressure Mean (mm Hg) 85 Source Monitor Position Sitting Blood Pressure Location Left Forearm History Since Last Visit- (Skip if this is Patient's initial visit) Have you changed medications since your No last visit? Any new allergies or adverse reactions No Had a fall/change in ADL's that may No increase risk of falls Signs or symptoms of abuse and/or No neglect since last visit Have you been in the hospital since your No last visit? Has dressing in place as prescribed Yes Has compression in place as prescribed N/A Has offloadiing in place as prescribed N/A Experienced any changes in pain level or No management Left Footwear Slipper Right Footwear Slipper Pain Scale: 0-10 Numeric Is Patient Pain Free? Yes - Nurse 1 - General Ulcer Measurement Start: 12/02/23 10:32 Freq: Status: Active Protocol: Activity Type Activity Date Activity User E-sign Co-sign Detail Recorded Client Recorded Date Recorded By Document 12/02/23 10:38 [facility] Desktop 12/02/23 10:40 [facility] 12/02/23 10:38 Wound Center Nurse 1 #1 Sacral cluster -Current Size (cm) - Length 0.1 -Current Size (cm) - Width 0.1 -Current Size (cm) - Depth 0.1 -Total Square Cm 0.01 -Date of Last Picture (Recall this 12/02/23 field) -Photo Taken Yes -Exudate Amt None Present - Nurse 2 - General Ulcer CM Notes Start: 12/02/23 10:32 Freq: Status: Active Protocol: Activity Type Activity Date Activity User E-sign Co-sign Detail Recorded Client Recorded Date Recorded By Document 12/02/23 10:46 Laptop 12/02/23 10:47 12/02/23 10:46 Wound Center Nurse 2 -Correct Patient No -Correct Side, Site, Position No -Correct Procedure No -Procedure Performed No -Post Debridement (cm) - Length 0 -Post Debridement (cm) - Width 0 -Post Debridement (cm) - Depth 0 -Total Square (Post) (cm) 0 -Area of Debridement (cm) - Length 0 -Area of Debridement (cm) - Width 0 -Total Square (Area) (cm) 0 -Wound/Ulcer Outcome Healed- Epithelialized Pain Scale: 0-10 Numeric Is Patient Pain Free? Yes - Nurse 3 - General Ulcer D/C NN Start: 12/02/23 10:32 Freq: Status: Active Protocol: Activity Type Activity Date Activity User E-sign Co-sign Detail Recorded Client Recorded Date Recorded By Document 12/02/23 10:47 Laptop 12/02/23 10:48 12/02/23 10:47 Is Patient Pain Free? Yes - Visit Discharge Discharge Condition Stable Ambulatory Status Wheelchair Transportation Private Auto Accompanied by family Medication Reconcilliation completed & Yes provided to patient/care provider Clinical Summary of Care Provided Yes Assessment/Plan Assessment/Plan (1) Pressure ulcer of sacral region, stage 4: CODE(S): L89.154 - Pressure ulcer of sacral region, stage 4 (2) Paraplegia: CODE(S): G82.20 - Paraplegia, unspecified (3) Osteomyelitis of pelvis: CODE(S): M86.9 - Osteomyelitis, unspecified (4) Large B-cell lymphoma: CODE(S): C85.10 - Unspecified B-cell lymphoma, unspecified site (5) Chronic indwelling Gutierrez catheter: CODE(S): Z97.8 - Presence of other specified devices PLAN: Plan Wound Care had been Hydrogel alternated with Fibracol. The sacral ulcer has healed. Can stop the Hydrogel and Fibracol. Prealbumin from 05/17/21 was 4.9. Encourage nutritional supplementation with protein to help the healing process. Her family does a really nice job with her wound care. They turn her every 2 hours. She is still getting PT. Family states she can stand with assist. Continue massaging the scar with skin lotion daily to help soften up the scar. Follow up on an as needed basis. 12/02/23 1106 <Electronically signed by Brice Maciel MD> Cosigner Signature (if applicable): CC: ~ Signed [facility] Work Phone: 1(771) 225-459612-20-2023 Progress note Author Barbra Esparza [facility] October 09, 2023 4:01pm Note Date/Time October 07, 2023 11:50am [facility] [address] [place] [address] Progress Note - Wound Care 10/07/23 1150 MR#: [id number] Acct: [id number] Name: CHRISTOPHER CORONEL Rep #:[id number] : 1945 78 From: Barbra lema RECORDS AND INFORMATION MANAGER RECORDS AND INFORMATION MANAGER-C PCP: Dr. 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 She had progressive paraplegia. She went to TCU for acute rehab for this progressive paraplegia. During that time she had worsening sacral pressure sore with skin necrosis. Surgery 05/15/21 - Excision necrotic sacral pressure sore, Stage IV, with partialostectomy for osteomyelitis. Pathology from surgery on 05/15/21 of bone showed acute osteomyelitis. Operative culture, soft tissue, from 05/15/21 was positive for Escherichia coli,Klebsiella, Vanc. Resist. E. gallinarum, Vanc. Resist. E. faecalis. Operative culture, bone, from 05/15/21 was positive for Escherichia coli, Vanc. Resist. E. faecalis, Vanc. Resist. E. gallinarum. She was treated with Meropenem and Vancomycin. Linezolid was started after Vancomycin was stopped. Radiation from 05/17/21 - 06/12/21 18 treatments to T4-T7 area including paraspinal region. 06/06/21- Laparoscopic sigmoid colectomy with creation of end colostomy for fecaldiversion. Wound culture from 07/29/23 was positive for Staphylococcus epidermidis and Corynebacterium striatum. She was treated with Augmentin. Today she denies any fever. Her appetite is ok. Progress of Wound: Ulcer is stable. Continues to have some scar tissue surrounding the ulcer. Objective Data Objective Data Vital Signs: Vital Signs Temp Pulse Resp BP O2 Del Method 97.0 F L 59 L 18 154/65 H Room Air 10/07/23 10:38 10/07/23 10:38 10/07/23 10:38 10/07/23 10:38 10/07/23 10:38 Oxygen Delivery Method Room Air Weight: 155 lb 11.464 oz Body Mass Index (BMI) 25.9 Charges/Coding Procedures Integumentary 111xxx-113xx: 43010 Casie musc/fascia 20 sq cm/< Debridement Note Debridement Note Wound debrided: #1 Sacral area. Laterality: Not Applicable Wound Grade/Stage: IV. Type of Debridement: Excisional debridement Anesthesia Used: 4% Lidocaine Solution Depth: Down to and including healthy tissue, in the subcutaneous layer and to muscle Percentage of wound debrided: 100 Instrument Used: 5mm curette Tissue Removed: subcutaneous tissue and slough into the muscle. Severity: Fat Layer Exposed (muscle is exposed. Bone is palpable but not exposed and not debrided.) Amount of bleeding with debridement: Mild Bleeding Controlled with: Pressure and Compression and gauze Patient tolerated procedure: Patient tolerated procedure well Post-Debridement Measurements and Additional Note: Post-Debridement Measurements/Treatment - Nurse 1 - General Ulcer Assessment Start: 09/23/23 09:31 Freq: Status: Active Protocol: .LOWEXT Activity Type Activity Date Activity User E-sign Co-sign Detail Recorded Client Recorded Date Recorded By Document 09/23/23 09:31 BMF Desktop 09/23/23 09:38 BMF Document 10/07/23 10:38 KW Desktop 10/07/23 10:49 KW 09/23/23 10/07/23 09:31 10:38 - Today's Visit Information Type of service Follow-up Visit Follow-up Visit (Physician/MANAGER OF PLANNING (Physician/MANAGER OF PLANNING ) ) Arrival Mode Wheelchair Wheelchair Transfer Assistance Will Lift Will Lift Accompanied by daughter and Patient Identification Verified (Name & Yes Yes ) Patient Requires Transmission-Based No Precautions Height and Weight Body Mass Index (BMI) 25.9 25.9 BMI Classification Overweight Overweight Vital Signs Temperature (97.8 F-99.1 F) 96.6 F L 97.0 F L Temperature Source Temporal Temporal Pulse Rate (60-100) 57 L 59 L Pulse Location Monitor Monitor Respiratory Rate (12-18) 16 18 Respiratory rate source Observation Monitor Oxygen Delivery Method Room Air Room Air Blood Pressure (90/60-120/80) 150/63 H 154/65 H Blood Pressure Mean (mm Hg) 92 94 Source Monitor Monitor Position Sitting Sitting Blood Pressure Location Left Arm Left Arm History Since Last Visit- (Skip if this is Patient's initial visit) Have you changed medications since your No No last visit? Any new allergies or adverse reactions No No Had a fall/change in ADL's that may No No increase risk of falls Signs or symptoms of abuse and/or No No neglect since last visit Have you been in the hospital since your No No last visit? Has dressing in place as prescribed Yes Yes Has compression in place as prescribed N/A N/A Has offloadiing in place as prescribed N/A N/A Experienced any changes in pain level or No No management Left Footwear Slipper Regular Shoe Right Footwear Slipper Regular Shoe Pain Scale: 0-10 Numeric Is Patient Pain Free? Yes Yes - Nurse 1 - General Ulcer Measurement Start: 09/23/23 09:31 Freq: Status: Active Protocol: Activity Type Activity Date Activity User E-sign Co-sign Detail Recorded Client Recorded Date Recorded By Document 09/23/23 09:31 [facility] Desktop 09/23/23 09:38 [facility] Document 10/07/23 10:38 Desktop 10/07/23 10:49 09/23/23 10/07/23 09:31 10:38 Wound Center Nurse 1 #1 Sacral cluster -Combined with other wound No -Current Size (cm) - Length 0.1 1.0 -Current Size (cm) - Width 0.1 1.0 -Current Size (cm) - Depth 0.2 0.2 -Total Square Cm 0.01 1.00 -Epithelialization Small 1-33% -Tunneling No -Undermining/Tunneling No -Circular Undermining No -Exudate Amt Medium Small -Exudate Type Serosanguineous Serosanguineous -Wound Margin Distinct, Thickened Outline Attached -Granulation Amt Large (67-100%) Medium (34-66%) -Granulation Quality [place] Red -Slough/Fibrin No -Necrosis Amt None Present (0 Small (1-33%) %) -Necrotic Tissue Type Adherent Slough -Texture (Laney-wound Skin Appearance) Assessed,Callus Assessed ,Scarring -Moisture (Laney-wound Skin Appearance) Assessed Assessed -Color (Laney-wound Skin Appearance) Assessed Assessed -Temperature (Laney-wound Skin No Abnormality No Abnormality Appearance) (Pt Warm) (Pt Warm) -Tenderness on Palpation (Laney-wound No Skin Appearance) -Ulcer Cleansing Rinsed/ Soap and Water Irrigated with Saline -Foul Odor after Cleansing No No -Anesthetic Used 5% Lidocaine 5% Lidocaine Gel Gel Lower Limb Edema Present NA WC - Nurse 2 - General Ulcer CM Notes Start: 09/23/23 09:31 Freq: Status: Active Protocol: Activity Type Activity Date Activity User E-sign Co-sign Detail Recorded Client Recorded Date Recorded By Document 09/23/23 10:33 Laptop 09/23/23 10:34 Document 10/07/23 11:07 Laptop 10/07/23 11:11 JF 09/23/23 10/07/23 10:33 11:07 Wound Center Nurse 2 #1 Sacral cluster -Time 10:33 11:08 -Correct Patient Yes Yes -Correct Side, Site, Position Yes Yes -Correct Procedure Yes Yes -Procedure Performed Yes Yes -Type of Procedure Debridement Debridement -Clinical Debridement Muscle / Fascia Muscle / Fascia -Tissue Removed Muscle Muscle,Fascia -Post Debridement (cm) - Length 1.0 1.2 -Post Debridement (cm) - Width 1.5 1.6 -Post Debridement (cm) - Depth 0.2 0.3 -Total Square (Post) (cm) 1.50 1.92 -Area of Debridement (cm) - Length 1.0 1.2 -Area of Debridement (cm) - Width 1.5 1.6 -Total Square (Area) (cm) 1.50 1.92 -Tunneling No No -Undermining/Tunneling No No -Circular Undermining No No -Wound/Ulcer Outcome Not Healed Not Healed -Ulcer Cleansing Rinsed/ Rinsed/ Irrigated with Irrigated with Saline Saline -Foul Odor after Cleansing No No -Bioengineered Tissue No No -Bleeding Controlled with Pressure Pressure -Treatment Response Procedure Procedure Tolerated Well Tolerated Well -Offloading No No -Debridement - Muscle / Fascia, 1st Yes Yes 20sq cm Pain Scale: 0-10 Numeric Is Patient Pain Free? Yes Yes - Nurse 3 - General Ulcer D/C NN Start: 09/23/23 09:31 Freq: Status: Active Protocol: Activity Type Activity Date Activity User E-sign Co-sign Detail Recorded Client Recorded Date Recorded By Document 09/23/23 10:41 DL Desktop 09/23/23 10:46 DL Document 10/07/23 11:16 KW Desktop 10/07/23 11:16 09/23/23 10/07/23 10:41 11:16 Wound Care Center Nurse 3 #1 Sacral cluster -Ulcer Cleansing Rinsed/ Rinsed/ Irrigated with Irrigated with Saline Saline -Foul Odor after Cleansing No -Primary Dressing Applied Fibracol Plus Fibracol Plus 4x4,Mepilex 4x4,Mepilex Border Border -Fibracol Plus 4x4 1 1 -Mepilex Border 1 1 Treatment Response Procedure Tolerated Well Pain Scale: 0-10 Numeric Is Patient Pain Free? Yes Yes - Visit Discharge Discharge Condition Stable Stable Ambulatory Status Wheelchair Wheelchair Transportation Private Auto Private Auto Medication Reconcilliation completed & No provided to patient/care provider Clinical Summary of Care Provided Yes Assessment/Plan Assessment/Plan (1) Pressure ulcer of sacral region, stage 4: CODE(S): L89.154 - Pressure ulcer of sacral region, stage 4 (2) Paraplegia: CODE(S): G82.20 - Paraplegia, unspecified (3) Osteomyelitis of pelvis: CODE(S): M86.9 - Osteomyelitis, unspecified (4) Large B-cell lymphoma: CODE(S): C85.10 - Unspecified B-cell lymphoma, unspecified site (5) Chronic indwelling Gutierrez catheter: CODE(S): Z97.8 - Presence of other specified devices PLAN: Plan Wound Care - Moistened Fibracol+ covered by [place] SAP or gauze daily. Encourage increased protein intake to help with wound healing. Her family does a really nice job with her wound care. They turn her every 2 hours. Patient has dense scar tissue at the edges of the ulcer as well as the base of the ulcer which can slow down healing. Aggressive debridement in the Wound Center can sometimes be enough to keep the dense scar tissue from forming. Whenit is not enough, then the next step is operative debridement in the hospital. Sometime a maintenance operative debridement can jump start the healing process. Surgery would be done under general anesthesia with a surgical observation overnight stay in the hospital. Will send soft tissue and bone to Pathology for analysis to rule out carcinoma and to evaluate for osteomyelitis. Will send soft tissue and bone to Microbiology for culture. A positive culture will necessitate antibiotic therapy. Patient was informed of the risks and complications of the procedure including alternatives to surgery. These were discussed with the patient personally. Patient voices understanding and wishes to proceed. Follow up 4 weeks due to the holidays. 10/09/23 1601 <Electronically signed by Barbra Esparza NP RECORDS AND INFORMATION MANAGER-C> Cosigner Signature (if applicable): CC: ~ Signed [facility] Work Phone: 1(438) 468-486512-06-2023 Progress note Author Brice Maciel [facility] September 25, 2023 2:28pm Note Date/Time September 25, 2023 8 :27am [facility] [address] [place] [address] Progress Note - Wound Care 09/23/23 1100 MR#: [id number] Acct: [id number] Name: CHRISTOPHER CORONEL Rep #:[id number] : 1945 77 From: Brice Pascal PCP: Dr. 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 She had progressive paraplegia. She went to TCU for acute rehab for this progressive paraplegia. During that time she had worsening sacral pressure sore with skin necrosis. Surgery 05/15/21 - Excision necrotic sacral pressure sore, Stage IV, with partialostectomy for osteomyelitis. Pathology from surgery on 05/15/21 of bone showed acute osteomyelitis. Operative culture, soft tissue, from 05/15/21 was positive for Escherichia coli,Klebsiella, Vanc. Resist. E. gallinarum, Vanc. Resist. E. faecalis. Operative culture, bone, from 05/15/21 was positive for Escherichia coli, Vanc. Resist. E. faecalis, Vanc. Resist. E. gallinarum. She was treated with Meropenem and Vancomycin. Linezolid was started after Vancomycin was stopped. Radiation from 05/17/21 - 06/12/21 18 treatments to T4-T7 area including paraspinal region. 06/06/21- Laparoscopic sigmoid colectomy with creation of end colostomy for fecaldiversion. Wound culture from 07/29/23 was positive for Staphylococcus epidermidis and Corynebacterium striatum. She was treated with Augmentin. Today she denies any fever. Her appetite is ok. Progress of Wound: Unchanged. It has reached a plateau. Objective Data Objective Data Vital Signs: Vital Signs Temp Pulse Resp BP O2 Del Method 96.6 F L 57 L 16 150/63 H Room Air 09/23/23 09:31 09/23/23 09:31 09/23/23 09:31 09/23/23 09:31 09/23/23 09:31 Oxygen Delivery Method Room Air Weight: 155 lb 11.464 oz Body Mass Index (BMI) 25.9 Lab / Micro Data Attestation: I reviewed the patient's lab results. Charges/Coding Procedures Integumentary 111xxx-113xx: 85517 Casie musc/fascia 20 sq cm/< (ICD-10 - L89.154, G82.20, M86.9, C85.10, Z97.8) Debridement Note Debridement Note Wound debrided: #1 Sacral area. Laterality: Not Applicable Wound Grade/Stage: IV. Type of Debridement: Excisional debridement Anesthesia Used: 4% Lidocaine Solution Depth: Down to and including healthy tissue, in the subcutaneous layer, to muscle and to bone (bone was palpable but not exposed and not debrided.) Percentage of wound debrided: 100 Instrument Used: 5mm curette Tissue Removed: subcutaneous tissue and muscle Severity: Fat Layer Exposed (muscle is exposed. Bone is palpable but not exposed and not debrided.) Amount of bleeding with debridement: Mild Bleeding Controlled with: Pressure and Compression and gauze Patient tolerated procedure: Patient tolerated procedure well Post-Debridement Measurements and Additional Note: Post-Debridement Measurements/Treatment - Nurse 1 - General Ulcer Assessment Start: 09/23/23 09:31 Freq: Status: Active Protocol: NICOLAS.LOWEXT Activity Type Activity Date Activity User E-sign Co-sign Detail Recorded Client Recorded Date Recorded By Document 09/23/23 09:31 [facility] Desktop 09/23/23 09:38 [facility] 09/23/23 09:31 - Today's Visit Information Type of service Follow-up Visit (Physician/MANAGER OF PLANNING ) Arrival Mode Wheelchair Transfer Assistance Will Lift Accompanied by Patient Identification Verified (Name & Yes ) Patient Requires Transmission-Based No Precautions Height and Weight Body Mass Index (BMI) 25.9 BMI Classification Overweight Vital Signs Temperature (97.8 F-99.1 F) 96.6 F L Temperature Source Temporal Pulse Rate (60-100) 57 L Pulse Location Monitor Respiratory Rate (12-18) 16 Respiratory rate source Observation Oxygen Delivery Method Room Air Blood Pressure (90/60-120/80) 150/63 H Blood Pressure Mean (mm Hg) 92 Source Monitor Position Sitting Blood Pressure Location Left Arm History Since Last Visit- (Skip if this is Patient's initial visit) Have you changed medications since your No last visit? Any new allergies or adverse reactions No Had a fall/change in ADL's that may No increase risk of falls Signs or symptoms of abuse and/or No neglect since last visit Have you been in the hospital since your No last visit? Has dressing in place as prescribed Yes Has compression in place as prescribed N/A Has offloadiing in place as prescribed N/A Experienced any changes in pain level or No management Left Footwear Slipper Right Footwear Slipper Pain Scale: 0-10 Numeric Is Patient Pain Free? Yes WC - Nurse 1 - General Ulcer Measurement Start: 09/23/23 09:31 Freq: Status: Active Protocol: Activity Type Activity Date Activity User E-sign Co-sign Detail Recorded Client Recorded Date Recorded By Document 09/23/23 09:31 [facility] Desktop 09/23/23 09:38 [facility] 09/23/23 09:31 Wound Center Nurse 1 #1 Sacral cluster -Combined with other wound No -Current Size (cm) - Length 0.1 -Current Size (cm) - Width 0.1 -Current Size (cm) - Depth 0.2 -Total Square Cm 0.01 -Epithelialization Small 1-33% -Tunneling No -Undermining/Tunneling No -Circular Undermining No -Exudate Amt Medium -Exudate Type Serosanguineous -Wound Margin Distinct, Outline Attached -Granulation Amt Large (67-100%) -Granulation Quality [place] -Slough/Fibrin No -Necrosis Amt None Present (0 %) -Texture (Laney-wound Skin Appearance) Assessed,Callus ,Scarring -Moisture (Laney-wound Skin Appearance) Assessed -Color (Laney-wound Skin Appearance) Assessed -Temperature (Laney-wound Skin No Abnormality Appearance) (Pt Warm) -Tenderness on Palpation (Laney-wound No Skin Appearance) -Ulcer Cleansing Rinsed/ Irrigated with Saline -Foul Odor after Cleansing No -Anesthetic Used 5% Lidocaine Gel NICOLAS - Nurse 2 - General Ulcer CM Notes Start: 09/23/23 09:31 Freq: Status: Active Protocol: Activity Type Activity Date Activity User E-sign Co-sign Detail Recorded Client Recorded Date Recorded By Document 09/23/23 10:33 Laptop 09/23/23 10:34 09/23/23 10:33 Wound Center Nurse 2 -Time 10:33 -Correct Patient Yes -Correct Side, Site, Position Yes -Correct Procedure Yes -Procedure Performed Yes -Type of Procedure Debridement -Clinical Debridement Muscle / Fascia -Tissue Removed Muscle -Post Debridement (cm) - Length 1.0 -Post Debridement (cm) - Width 1.5 -Post Debridement (cm) - Depth 0.2 -Total Square (Post) (cm) 1.50 -Area of Debridement (cm) - Length 1.0 -Area of Debridement (cm) - Width 1.5 -Total Square (Area) (cm) 1.50 -Tunneling No -Undermining/Tunneling No -Circular Undermining No -Wound/Ulcer Outcome Not Healed -Ulcer Cleansing Rinsed/ Irrigated with Saline -Foul Odor after Cleansing No -Bioengineered Tissue No -Bleeding Controlled with Pressure -Treatment Response Procedure Tolerated Well -Offloading No -Debridement - Muscle / Fascia, 1st Yes 20sq cm Pain Scale: 0-10 Numeric Is Patient Pain Free? Yes - Nurse 3 - General Ulcer D/C NN Start: 09/23/23 09:31 Freq: Status: Active Protocol: Activity Type Activity Date Activity User E-sign Co-sign Detail Recorded Client Recorded Date Recorded By Document 09/23/23 10:41 DL Desktop 09/23/23 10:46 DL 09/23/23 10:41 Wound Care Center Nurse 3 #1 Sacral cluster -Ulcer Cleansing Rinsed/ Irrigated with Saline -Foul Odor after Cleansing No -Primary Dressing Applied Fibracol Plus 4x4,Mepilex Border -Fibracol Plus 4x4 1 -Mepilex Border 1 Treatment Response Procedure Tolerated Well Pain Scale: 0-10 Numeric Is Patient Pain Free? Yes - Visit Discharge Discharge Condition Stable Ambulatory Status Wheelchair Transportation Private Auto Assessment/Plan Assessment/Plan (1) Pressure ulcer of sacral region, stage 4: CODE(S): L89.154 - Pressure ulcer of sacral region, stage 4 (2) Paraplegia: CODE(S): G82.20 - Paraplegia, unspecified (3) Osteomyelitis of pelvis: CODE(S): M86.9 - Osteomyelitis, unspecified (4) Large B-cell lymphoma: CODE(S): C85.10 - Unspecified B-cell lymphoma, unspecified site (5) Chronic indwelling Gutierrez catheter: CODE(S): Z97.8 - Presence of other specified devices PLAN: Plan Wound Care - Moistened Fibracol+ covered by [place] SAP or gauze daily. Encourage increased protein intake to help with wound healing. Her family does a really nice job with her wound care. They turn her every 2 hours. Patient has dense scar tissue at the edges of the ulcer as well as the base of the ulcer which can slow down healing. Aggressive debridement in the Wound Center can sometimes be enough to keep the dense scar tissue from forming. Whenit is not enough, then the next step is operative debridement in the hospital. Sometime a maintenance operative debridement can jump start the healing process. Surgery would be done under general anesthesia with a surgical observation overnight stay in the hospital. Will send soft tissue and bone to Pathology for analysis to rule out carcinoma and to evaluate for osteomyelitis. Will send soft tissue and bone to Microbiology for culture. A positive culture will necessitate antibiotic therapy. Patient was informed of the risks and complications of the procedure including alternatives to surgery. These were discussed with the patient personally. Patient voices understanding and wishes to proceed. Until the surgery is done, follow up 2 weeks for continued wound care. 09/25/23 1428 <Electronically signed by Brice Maciel MD> Cosigner Signature (if applicable): CC: ~ Signed [facility] Work Phone: 1([phone]) 258-444210-09-2023 Progress note Author Barbra Esparza [facility] July 29, 2023 2:24pm Note Date/Time July 29, 2023 2: 25pm [facility] [address] [place] [address] Progress Note - Wound Care 07/29/23 1416 MR#: [id number] Acct: [id number] Name: CHRISTOPHER CORONEL Rep #:[id number] : 1945 77 From: Barbra lema RECORDS AND INFORMATION MANAGER RECORDS AND INFORMATION MANAGER-C PCP: Dr. 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 She had progressive paraplegia. She went to TCU for acute rehab for this progressive paraplegia. During that time she had worsening sacral pressure sore with skin necrosis. Surgery 05/15/21 - Excision necrotic sacral pressure sore, Stage IV, with partialostectomy for osteomyelitis. Pathology from surgery on 05/15/21 of bone showed acute osteomyelitis. Operative tissue culture positive for Escherichia coli, Klebsiella, Vanc. Resist. E. gallinarum, Vanc. Resist. E. faecalis. Operative bone culture positive for Escherichia coli, Vanc. Resist. E. faecalis, Vanc. Resist. E. gallinarum. She was on Meropenem, Vancomycin has been stopped and Linezolid started. ID is managing. Radiation from 05/17/21 - 06/12/21 18 treatments to T4-T7 area including paraspinal region. 06/06/21- Laparoscopic sigmoid colectomy with creation of end colostomy for fecaldiversion. Was in TCU 06/08/21-07/20/21. Patient had a hospitalization on 01/19/2022. She states she had C. difficile. She was discharged on 01/22/2022. While she was hospitalized she developed a new ulcer on her right ischium. Has dry scabbing. Wound culture 03/25/23 positive for Klebsiella pneumoniae, Corynebacterium species, Corynebacterium striatum, Enterococcus faecalis, Staphylococcus hominishominis, Streptococcus canis, and Staphylococcus haemolyticus. She is being treated with Augmentin. She denies any nausea and vomiting. She states that her appetite is improving and she is drinking extra protein shakes. Progress of Wound: Sacral ulcer is stable. There is thickened scar tissue on the edges of the ulcer. She has had a few episodes of confusion that the family is concerned about. Will obtain a wound and urine culture. She has a chronic indwelling catheter. Objective Data Objective Data Vital Signs: Vital Signs Temp Pulse Resp BP 97.6 F L 57 L 18 138/64 H 07/29/23 09:54 07/29/23 09:54 07/29/23 09:54 07/29/23 09:54 Weight: 155 lb 11.464 oz Body Mass Index (BMI) 25.9 Lab / Micro Data Labs: Laboratory Results - last 24 hr 07/29/23 10:20: Urine Color Yellow, Urine Clarity Cloudy, Urine pH 6.5, Ur Specific [place] 1.010, Urine Protein 30 H, Urine Glucose (UA) Normal, Urine Ketones Negative, Urine Occult Blood 25 H, Urine Nitrite Positive H, Urine Bilirubin Negative, Urine Urobilinogen Normal, Ur Leukocyte Esterase 500 H Charges/Coding Procedures Integumentary 111xxx-113xx: 80209 Casie subq tissue 20 sq cm/< Debridement Note Debridement Note Wound debrided: Sacral ulcer Type of Debridement: Excisional debridement Anesthesia Used: 4% Lidocaine Solution Depth: Down to and including healthy tissue and in the subcutaneous layer Percentage of wound debrided: 100 Instrument Used: 3mm curette Tissue Removed: Non viable tissue and slough. Severity: Fat Layer Exposed Amount of bleeding with debridement: Mild Bleeding Controlled with: Pressure and Compression and gauze Patient tolerated procedure: Patient tolerated procedure well Post-Debridement Measurements and Additional Note: Post-Debridement Measurements/Treatment WC - Nurse 1 - General Ulcer Assessment Start: 07/29/23 09:54 Freq: Status: Active Protocol: NICOLAS.FLACO Activity Type Activity Date Activity User E-sign Co-sign Detail Recorded Client Recorded Date Recorded By Document 07/29/23 09:54 DL Desktop 07/29/23 10:06 DL 07/29/23 09:54 WC - Today's Visit Information Type of service Follow-up Visit (Physician/MANAGER OF PLANNING ) Arrival Mode Wheelchair Transfer Assistance Will Lift Patient Identification Verified (Name & Yes ) Patient Requires Transmission-Based No Precautions Height and Weight Body Mass Index (BMI) 25.9 BMI Classification Overweight Vital Signs Temperature (97.8 F-99.1 F) 97.6 F L Temperature Source Temporal Pulse Rate (60-100) 57 L Pulse Location Monitor Respiratory Rate (12-18) 18 Respiratory rate source Observation Blood Pressure (90/60-120/80) 138/64 H Blood Pressure Mean (mm Hg) 88 Source Monitor History Since Last Visit- (Skip if this is Patient's initial visit) Have you changed medications since your No last visit? Any new allergies or adverse reactions No Had a fall/change in ADL's that may No increase risk of falls Signs or symptoms of abuse and/or No neglect since last visit Have you been in the hospital since your No last visit? Has dressing in place as prescribed Yes Has compression in place as prescribed N/A Has offloadiing in place as prescribed Yes Experienced any changes in pain level or No management Pain Scale: 0-10 Numeric Is Patient Pain Free? Yes - Nurse 1 - General Ulcer Measurement Start: 07/29/23 09:54 Freq: Status: Active Protocol: Activity Type Activity Date Activity User E-sign Co-sign Detail Recorded Client Recorded Date Recorded By Document 07/29/23 09:54 DL Desktop 07/29/23 10:06 DL 07/29/23 09:54 Wound Center Nurse 1 #1 Sacral cluster -Current Size (cm) - Length 0.8 -Current Size (cm) - Width 0.2 -Current Size (cm) - Depth 0.4 -Total Square Cm 0.16 -Exudate Amt Medium -Wound Margin Thickened -Granulation Amt Small (1-33%) -Granulation Quality [place] -Necrosis Amt Small (1-33%) -Necrotic Tissue Type Adherent Slough -Structure Exposed N/A -Texture (Laney-wound Skin Appearance) Scarring -Moisture (Laney-wound Skin Appearance) Maceration -Color (Laney-wound Skin Appearance) No Abnormality -Temperature (Laney-wound Skin No Abnormality Appearance) (Pt Warm) -Tenderness on Palpation (Laney-wound No Skin Appearance) -Ulcer Cleansing Rinsed/ Irrigated with Saline -Foul Odor after Cleansing No -Anesthetic Used 5% Lidocaine Gel - Nurse 2 - General Ulcer CM Notes Start: 07/29/23 09:54 Freq: Status: Active Protocol: Activity Type Activity Date Activity User E-sign Co-sign Detail Recorded Client Recorded Date Recorded By Document 07/29/23 10:16 Laptop 07/29/23 10:24 07/29/23 10:16 Wound Center Nurse 2 -Time 10:17 -Correct Patient Yes -Correct Side, Site, Position Yes -Correct Procedure Yes -Procedure Performed Yes -Type of Procedure Debridement -Clinical Debridement Subcutaneous -Tissue Removed Subcutaneous -Post Debridement (cm) - Length 0.6 -Post Debridement (cm) - Width 1.1 -Post Debridement (cm) - Depth 0.3 -Total Square (Post) (cm) 0.66 -Area of Debridement (cm) - Length 0.6 -Area of Debridement (cm) - Width 1.1 -Total Square (Area) (cm) 0.66 -Tunneling No -Undermining/Tunneling No -Circular Undermining No -Wound/Ulcer Outcome Not Healed -Ulcer Cleansing Rinsed/ Irrigated with Saline -Foul Odor after Cleansing No -Bioengineered Tissue No -Bleeding Controlled with Pressure -Treatment Response Procedure Tolerated Well -Offloading No -Debridement - Subq, 1st 20sq cm Yes Pain Scale: 0-10 Numeric Is Patient Pain Free? Yes - Nurse 3 - General Ulcer D/C NN Start: 07/29/23 09:54 Freq: Status: Active Protocol: Activity Type Activity Date Activity User E-sign Co-sign Detail Recorded Client Recorded Date Recorded By Document 07/29/23 10:28 Laptop 07/29/23 10:30 07/29/23 10:28 Wound Care Center Nurse 3 #1 Sacral cluster -Ulcer Cleansing Rinsed/ Irrigated with Saline -Foul Odor after Cleansing No -Primary Dressing Applied Fibracol Plus 4x4,Mepilex Border -Fibracol Plus 4x4 1 -Mepilex Border 1 Pain Scale: 0-10 Numeric Is Patient Pain Free? Yes WC - Visit Discharge Discharge Condition Stable Ambulatory Status Wheelchair Transportation Private Auto Accompanied by will Medication Reconcilliation completed & Yes provided to patient/care provider Clinical Summary of Care Provided Yes Assessment/Plan Assessment/Plan (1) Pressure ulcer of sacral region, stage 4: CODE(S): L89.154 - Pressure ulcer of sacral region, stage 4 (2) Paraplegia: CODE(S): G82.20 - Paraplegia, unspecified (3) Osteomyelitis of pelvis: CODE(S): M86.9 - Osteomyelitis, unspecified (4) Large B-cell lymphoma: CODE(S): C85.10 - Unspecified B-cell lymphoma, unspecified site (5) Cloudy urine: CODE(S): R82.90 - Unspecified abnormal findings in urine (6) Chronic indwelling Gutierrez catheter: CODE(S): Z97.8 - Presence of other specified devices PLAN: Plan Wound Care - Moistened Fibracol+ covered by [place] SAP or gauze daily. Family is concerned because she has a a couple episodes of confusion (not confused at this moment). Will check wound culture and a urine culture, since she has an indwelling gutierrez catheter. U/A came back positve for Nitrites, 500 Leukocyte Esterase, High urine occult blood. Will start her on Cipro BID and wait for urine culture and sensitivity to come back. May need to change antibiotic, depending on the sensitivities. A wound culture was obtained today, 07/29/23.? A positive culture will necessitate antibiotic therapy. Wound culture 10/07/21 while in the hospital positive for Klebsiella oxytoca, Staphylococcus haemolyticus, and Corynebacterium striatum. Treated with Zosyn and Vanc while hospitalized. Completed Augmentin. Wound culture from 09/12/21 was positive for Staphylococcus haemolyticus and Enterococcus faecalis. Completed Augmentin and Doxycycline and a probiotic. A wound culture was obtained on 03/25/23 which was positive for Klebsiella pneumoniae, Corynebacterium species, Corynebacterium striatum, Enterococcus faecalis, Staphylococcus hominis hominis, Streptococcus canis, and Staphylococcus haemolyticus.? She was treated with Augmentin.? Encourage increased protein intake to help with wound healing. Her family does a really nice job with her wound care. They turn her every 2 hours. Follow up 3 weeks. Call or come in sooner if have any questions or concerns. 07/29/23 1424 <Electronically signed by Barbra Esparza NP RECORDS AND INFORMATION MANAGER-C> Cosigner Signature (if applicable): CC: ~ Signed [facility] Work Phone: 1(759) 993-870709-15-2023 Progress note Author Barbra Esparza [facility] July 05, 2023 2:23pm Note Date/Time July 01, 2023 12:46pm [facility] [address] [place] [id number] Progress Note - Wound Care 07/01/23 1245 MR#: [id number] Acct: [id number] Name: CHRISTOPHER CORONEL Rep #:[id number] : 1945 77 From: Barbra lema NP RECORDS AND INFORMATION MANAGER-C PCP: Dr. 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 She had progressive paraplegia. She went to TCU for acute rehab for this progressive paraplegia. During that time she had worsening sacral pressure sore with skin necrosis. Surgery 05/15/21 - Excision necrotic sacral pressure sore, Stage IV, with partialostectomy for osteomyelitis. Pathology from surgery on 05/15/21 of bone showed acute osteomyelitis. Operative tissue culture positive for Escherichia coli, Klebsiella, Vanc. Resist. E. gallinarum, Vanc. Resist. E. faecalis. Operative bone culture positive for Escherichia coli, Vanc. Resist. E. faecalis, Vanc. Resist. E. gallinarum. She was on Meropenem, Vancomycin has been stopped and Linezolid started. ID is managing. Radiation from 05/17/21 - 06/12/21 18 treatments to T4-T7 area including paraspinal region. 06/06/21- Laparoscopic sigmoid colectomy with creation of end colostomy for fecaldiversion. Was in TCU 06/08/21-07/20/21. Patient had a hospitalization on 01/19/2022. She states she had C. difficile. She was discharged on 01/22/2022. While she was hospitalized she developed a new ulcer on her right ischium. Has dry scabbing. Wound culture 03/25/23 positive for Klebsiella pneumoniae, Corynebacterium species, Corynebacterium striatum, Enterococcus faecalis, Staphylococcus hominishominis, Streptococcus canis, and Staphylococcus haemolyticus. She is being treated with Augmentin. Wound Care - Dakins 0.25 % moistened gauze covered with ABD daily to sacral ulcer. Place A&D ointment or Aquaphor for a barrier cream to laney wound of sacral ulcer to moisturize and protect the skin. She denies any nausea and vomiting. She states that her appetite is improving and she is drinking extra protein shakes. Progress of Wound: Sacral ulcer is slightly smaller, there no longer is undermining. There is thickened scar tissue on the edges of the ulcer. Objective Data Objective Data Vital Signs: Vital Signs Temp Pulse Resp BP 96.6 F L 58 L 18 57/55 L 07/01/23 10:04 07/01/23 10:04 07/01/23 10:04 07/01/23 10:04 Weight: 155 lb 11.464 oz Body Mass Index (BMI) 25.9 Charges/Coding Procedures Integumentary 111xxx-113xx: 89942 Casie subq tissue 20 sq cm/< Debridement Note Debridement Note Wound debrided: Sacral ulcer Type of Debridement: Excisional debridement Anesthesia Used: 4% Lidocaine Solution Depth: Down to and including healthy tissue and in the subcutaneous layer Percentage of wound debrided: 100 Instrument Used: 3mm curette Tissue Removed: Non viable tissue and slough. Severity: Fat Layer Exposed Amount of bleeding with debridement: Mild Bleeding Controlled with: Pressure and Compression and gauze Patient tolerated procedure: Patient tolerated procedure well Post-Debridement Measurements and Additional Note: Post-Debridement Measurements/Treatment NICOLAS - Nurse 1 - General Ulcer Assessment Start: 07/01/23 10:04 Freq: Status: Active Protocol: KRANTHI Activity Type Activity Date Activity User E-sign Co-sign Detail Recorded Client Recorded Date Recorded By Document 07/01/23 10:04 GABBY [id number] 07/01/23 10:17 KW 07/01/23 10:04 NICOLAS - Today's Visit Information Type of service Follow-up Visit (Physician/MANAGER OF PLANNING ) Arrival Mode Wheelchair Transfer Assistance Will Lift Patient Identification Verified (Name & Yes ) Height and Weight Body Mass Index (BMI) 25.9 BMI Classification Overweight Vital Signs Temperature (97.8 F-99.1 F) 96.6 F L Temperature Source Temporal Pulse Rate (60-100) 58 L Pulse Location Monitor Respiratory Rate (12-18) 18 Respiratory rate source Observation Blood Pressure (90/60-120/80) 57/55 L Blood Pressure Mean (mm Hg) 55 Source Monitor Position Sitting Blood Pressure Location Right Forearm History Since Last Visit- (Skip if this is Patient's initial visit) Have you changed medications since your No last visit? Any new allergies or adverse reactions No Had a fall/change in ADL's that may No increase risk of falls Signs or symptoms of abuse and/or No neglect since last visit Have you been in the hospital since your No last visit? Has dressing in place as prescribed Yes Has compression in place as prescribed N/A Has offloadiing in place as prescribed N/A Experienced any changes in pain level or No management Left Footwear Regular Shoe Right Footwear Regular Shoe Pain Scale: 0-10 Numeric Is Patient Pain Free? Yes NICOLAS Infante Nurse 1 - General Ulcer Measurement Start: 07/01/23 10:04 Freq: Status: Active Protocol: Activity Type Activity Date Activity User E-sign Co-sign Detail Recorded Client Recorded Date Recorded By Document 07/01/23 10:04 [id number] 07/01/23 10:17 07/01/23 10:04 Wound Center Nurse 1 #1 Sacral cluster -Combined with other wound No -Current Size (cm) - Length 1.0 -Current Size (cm) - Width 1.3 -Current Size (cm) - Depth 0.6 -Total Square Cm 1.30 -Exudate Amt Small -Exudate Type Serosanguineous -Wound Margin Distinct, Outline Attached -Granulation Amt Small (1-33%) -Granulation Quality Red -Necrosis Amt Small (1-33%) -Texture (Laney-wound Skin Appearance) Assessed -Moisture (Laney-wound Skin Appearance) Assessed -Color (Laney-wound Skin Appearance) Assessed -Temperature (Laney-wound Skin No Abnormality Appearance) (Pt Warm) -Ulcer Cleansing Rinsed/ Irrigated with Saline -Anesthetic Used 5% Lidocaine Gel WC - Nurse 2 - General Ulcer CM Notes Start: 07/01/23 10:04 Freq: Status: Active Protocol: Activity Type Activity Date Activity User E-sign Co-sign Detail Recorded Client Recorded Date Recorded By Document 07/01/23 10:30 [id number] 07/01/23 10:34 07/01/23 10:30 Wound Center Nurse 2 -Time 10:30 -Correct Patient Yes -Correct Side, Site, Position Yes -Correct Procedure Yes -Procedure Performed Yes -Type of Procedure Debridement -Clinical Debridement Subcutaneous -Tissue Removed Subcutaneous -Post Debridement (cm) - Length 0.6 -Post Debridement (cm) - Width 0.5 -Post Debridement (cm) - Depth 0.2 -Total Square (Post) (cm) 0.30 -Area of Debridement (cm) - Length 0.6 -Area of Debridement (cm) - Width 0.5 -Total Square (Area) (cm) 0.30 -Tunneling No -Undermining/Tunneling No -Circular Undermining No -Wound/Ulcer Outcome Not Healed -Ulcer Cleansing Rinsed/ Irrigated with Saline -Foul Odor after Cleansing No -Bioengineered Tissue No -Bleeding Controlled with Pressure -Treatment Response Procedure Tolerated Well -Offloading No -Debridement - Subq, 1st 20sq cm Yes Pain Scale: 0-10 Numeric Is Patient Pain Free? Yes WC - Nurse 3 - General Ulcer D/C NN Start: 07/01/23 10:04 Freq: Status: Active Protocol: Activity Type Activity Date Activity User E-sign Co-sign Detail Recorded Client Recorded Date Recorded By Document 07/01/23 12:20 [id number] 07/01/23 12:21 RB 07/01/23 12:20 Wound Care Center Nurse 3 #1 Sacral cluster -Ulcer Cleansing Wound Cleanser -Primary Dressing Applied Fibracol Plus 4x4,Mepilex Border -Fibracol Plus 4x4 2 -Mepilex Border 1 Treatment Response Procedure Tolerated Well Pain Scale: 0-10 Numeric Is Patient Pain Free? Yes Teaching: Wound Center Dressing Your Wound -Person Taught Patient,Family -Teaching Method Discussion, Demonstration -Response to teaching Verbalize understanding WC - Visit Discharge Discharge Condition Stable Ambulatory Status Wheelchair Transportation Private Auto Medication Reconcilliation completed & No provided to patient/care provider Clinical Summary of Care Provided Yes Assessment/Plan Assessment/Plan (1) Pressure ulcer of sacral region, stage 4: CODE(S): L89.154 - Pressure ulcer of sacral region, stage 4 (2) Paraplegia: CODE(S): G82.20 - Paraplegia, unspecified (3) Osteomyelitis of pelvis: CODE(S): M86.9 - Osteomyelitis, unspecified (4) Large B-cell lymphoma: CODE(S): C85.10 - Unspecified B-cell lymphoma, unspecified site PLAN: Plan Wound Care - Moistened Fibracol+ covered by [place] SAP or gauze daily. A wound culture was obtained on 03/25/23 which was positive for Klebsiella pneumoniae, Corynebacterium species, Corynebacterium striatum, Enterococcus faecalis, Staphylococcus hominis hominis, Streptococcus canis, and Staphylococcus haemolyticus.? She was treated with Augmentin.? Wound culture 10/07/21 while in the hospital positive for Klebsiella oxytoca, Staphylococcus haemolyticus, and Corynebacterium striatum. Treated with Zosyn and Vanc while hospitalized. Completed Augmentin. Wound culture from 09/12/21 was positive for Staphylococcus haemolyticus and Enterococcus faecalis. Completed Augmentin and Doxycycline and a probiotic. Encourage increased protein intake to help with wound healing. Her family does a really nice job with her wound care. They turn her every 2 hours. Follow up four weeks. Call or come in sooner if have any questions or concerns. 07/05/23 1423 <Electronically signed by Barbra Esparza RECORDS AND INFORMATION MANAGER RECORDS AND INFORMATION MANAGER-C> Cosigner Signature (if applicable): CC: ~ Signed [facility] Work Phone: 1(784) 900-285308-20-2023 Progress note Author Barbra Esparza [facility] June 09, 2023 7:17pm Note Date/Time June 03, 2023 12 :34pm [facility] [address] [place] [address] Progress Note - Wound Care 06/03/23 1234 MR#: [id number] Acct: [id number] Name: CHRISTOPHER CORONEL Rep #:[id number] : 1945 77 From: Barbra lema NP RECORDS AND INFORMATION MANAGER-C PCP: Dr. 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 She had progressive paraplegia. She went to TCU for acute rehab for this progressive paraplegia. During that time she had worsening sacral pressure sore with skin necrosis. Surgery 05/15/21 - Excision necrotic sacral pressure sore, Stage IV, with partialostectomy for osteomyelitis. Pathology from surgery on 05/15/21 of bone showed acute osteomyelitis. Operative tissue culture positive for Escherichia coli, Klebsiella, Vanc. Resist. E. gallinarum, Vanc. Resist. E. faecalis. Operative bone culture positive for Escherichia coli, Vanc. Resist. E. faecalis, Vanc. Resist. E. gallinarum. She was on Meropenem, Vancomycin has been stopped and Linezolid started. ID is managing. Radiation from 05/17/21 - 06/12/21 18 treatments to T4-T7 area including paraspinal region. 06/06/21- Laparoscopic sigmoid colectomy with creation of end colostomy for fecaldiversion. Was in TCU 06/08/21-07/20/21. Patient had a hospitalization on 01/19/2022. She states she had C. difficile. She was discharged on 01/22/2022. While she was hospitalized she developed a new ulcer on her right ischium. Has dry scabbing. Wound culture 03/25/23 positive for Klebsiella pneumoniae, Corynebacterium species, Corynebacterium striatum, Enterococcus faecalis, Staphylococcus hominishominis, Streptococcus canis, and Staphylococcus haemolyticus. She is being treated with Augmentin. Wound Care - Dakins 0.25 % moistened gauze covered with ABD daily to sacral ulcer. Place A&D ointment or Aquaphor for a barrier cream to laney wound of sacral ulcer to moisturize and protect the skin. She denies any nausea and vomiting. She states that her appetite is improving and she is drinking extra protein shakes. Progress of Wound: Sacral ulcer is smaller, there no longer is undermining. There is thickened scar tissue on the edges of the ulcer. Objective Data Objective Data Vital Signs: Vital Signs Temp Pulse Resp BP O2 Del Method 97.6 F L 58 L 16 157/73 H Room Air 05/21/23 00:13 06/03/23 10:04 06/03/23 10:04 06/03/23 10:04 06/03/23 10:04 Oxygen Delivery Method Room Air Weight: 155 lb 11.464 oz Body Mass Index (BMI) 25.9 Charges/Coding Procedures Integumentary 111xxx-113xx: 57698 Casie subq tissue 20 sq cm/< Debridement Note Debridement Note Wound debrided: Sacral ulcer Type of Debridement: Excisional debridement Anesthesia Used: 4% Lidocaine Solution Depth: Down to and including healthy tissue and in the subcutaneous layer Percentage of wound debrided: 100 Instrument Used: 3mm curette Tissue Removed: Non viable tissue and slough. Severity: Fat Layer Exposed Amount of bleeding with debridement: Mild Bleeding Controlled with: Pressure and Compression and gauze Patient tolerated procedure: Patient tolerated procedure well Post-Debridement Measurements and Additional Note: Post-Debridement Measurements/Treatment WC - Nurse 1 - General Ulcer Assessment Start: 06/03/23 10:03 Freq: Status: Active Protocol: STELLAEXJeny Activity Type Activity Date Activity User E-sign Co-sign Detail Recorded Client Recorded Date Recorded By Document 06/03/23 10:04 [facility] [id number] 06/03/23 10:16 [facility] 06/03/23 10:04 - Today's Visit Information Type of service Follow-up Visit (Physician/MANAGER OF PLANNING ) Arrival Mode Wheelchair Transfer Assistance Will Lift Transfer Assist (Other) 2 Accompanied by val and son Patient Identification Verified (Name & Yes ) Patient Requires Transmission-Based No Precautions Height and Weight Body Mass Index (BMI) 25.9 BMI Classification Overweight Vital Signs Pulse Rate (60-100) 58 L Pulse Location Monitor Respiratory Rate (12-18) 16 Respiratory rate source Observation Oxygen Delivery Method Room Air Blood Pressure (90/60-120/80) 157/73 H Blood Pressure Mean (mm Hg) 101 Source Monitor Position Sitting History Since Last Visit- (Skip if this is Patient's initial visit) Have you changed medications since your No last visit? Any new allergies or adverse reactions No Had a fall/change in ADL's that may No increase risk of falls Signs or symptoms of abuse and/or No neglect since last visit Have you been in the hospital since your No last visit? Has dressing in place as prescribed Yes Has compression in place as prescribed N/A Has offloadiing in place as prescribed N/A Experienced any changes in pain level or No management Left Footwear Slipper Right Footwear Slipper Pain Scale: 0-10 Numeric Is Patient Pain Free? Yes - Nurse 1 - General Ulcer Measurement Start: 06/03/23 10:03 Freq: Status: Active Protocol: Activity Type Activity Date Activity User E-sign Co-sign Detail Recorded Client Recorded Date Recorded By Document 06/03/23 10:04 [facility] [id number] 06/03/23 10:16 [facility] 06/03/23 10:04 Wound Center Nurse 1 #1 Sacral cluster -Combined with other wound No -Current Size (cm) - Length 1 -Current Size (cm) - Width 0.3 -Current Size (cm) - Depth 0.4 -Total Square Cm 0.3 -Photo Taken No -Epithelialization None Present -Tunneling No -Undermining/Tunneling No -Circular Undermining No -Exudate Amt Medium -Exudate Type Serous -Wound Margin Thickened & Rolled Under -Granulation Amt Large (67-100%) -Granulation Quality Red -Slough/Fibrin No -Necrosis Amt None Present (0 %) -Texture (Laney-wound Skin Appearance) Assessed,Callus ,Scarring -Moisture (Laney-wound Skin Appearance) Assessed, Maceration -Color (Laney-wound Skin Appearance) Assessed -Temperature (Laney-wound Skin No Abnormality Appearance) (Pt Warm) -Tenderness on Palpation (Laney-wound No Skin Appearance) -Ulcer Cleansing Soap and Water -Foul Odor after Cleansing No -Anesthetic Used 5% Lidocaine Gel - Nurse 2 - General Ulcer CM Notes Start: 06/03/23 10:03 Freq: Status: Active Protocol: Activity Type Activity Date Activity User E-sign Co-sign Detail Recorded Client Recorded Date Recorded By Document 06/03/23 10:26 [id number] 06/03/23 10:29 06/03/23 10:26 Wound Center Nurse 2 -Time 10:28 -Correct Patient Yes -Correct Side, Site, Position Yes -Correct Procedure Yes -Procedure Performed Yes -Type of Procedure Debridement -Clinical Debridement Subcutaneous -Tissue Removed Subcutaneous -Post Debridement (cm) - Length 1.0 -Post Debridement (cm) - Width 0.5 -Post Debridement (cm) - Depth 0.2 -Total Square (Post) (cm) 0.50 -Area of Debridement (cm) - Length 1.0 -Area of Debridement (cm) - Width 0.5 -Total Square (Area) (cm) 0.50 -Tunneling No -Undermining/Tunneling No -Circular Undermining No -Wound/Ulcer Outcome Not Healed -Ulcer Cleansing Rinsed/ Irrigated with Saline -Foul Odor after Cleansing No -Bioengineered Tissue No -Bleeding Controlled with Pressure -Treatment Response Procedure Tolerated Well -Offloading No -Pressure Reduction Wheelchair cushion -Debridement - Subq, 1st 20sq cm Yes Pain Scale: 0-10 Numeric Is Patient Pain Free? Yes - Nurse 3 - General Ulcer D/C NN Start: 06/03/23 10:03 Freq: Status: Active Protocol: Activity Type Activity Date Activity User E-sign Co-sign Detail Recorded Client Recorded Date Recorded By Document 06/03/23 11:00 [facility] [id number] 06/03/23 11:01 [facility] 06/03/23 11:00 Wound Care Center Nurse 3 #1 Sacral cluster -Ulcer Cleansing Rinsed/ Irrigated with Saline -Foul Odor after Cleansing No -Primary Dressing Applied Aquacel AG 2x2, Mepilex Border -Aquacel AG 2x2 1 -Mepilex Border 1 Treatment Response Procedure Tolerated Well Pain Scale: 0-10 Numeric Is Patient Pain Free? Yes WC - Visit Discharge Discharge Condition Stable Ambulatory Status Wheelchair Transportation Private Auto Accompanied by val and Assessment/Plan Assessment/Plan (1) Pressure ulcer of sacral region, stage 4: CODE(S): L89.154 - Pressure ulcer of sacral region, stage 4 (2) Paraplegia: CODE(S): G82.20 - Paraplegia, unspecified (3) Osteomyelitis of pelvis: CODE(S): M86.9 - Osteomyelitis, unspecified (4) Large B-cell lymphoma: CODE(S): C85.10 - Unspecified B-cell lymphoma, unspecified site PLAN: Plan Wound Care - Moistened Aquacel-Ag covered by [place] SAP or gauze daily. A wound culture was obtained on 03/25/23 which was positive for Klebsiella pneumoniae, Corynebacterium species, Corynebacterium striatum, Enterococcus faecalis, Staphylococcus hominis hominis, Streptococcus canis, and Staphylococcus haemolyticus.? She is being treated with Augmentin.? Wound culture 10/07/21 while in the hospital positive for Klebsiella oxytoca, Staphylococcus haemolyticus, and Corynebacterium striatum. Treated with Zosyn and Vanc while hospitalized. Completed Augmentin. Wound culture from 09/12/21 was positive for Staphylococcus haemolyticus and Enterococcus faecalis. Completed Augmentin and Doxycycline and a probiotic. Encourage increased protein intake to help with wound healing. Her family does a really nice job with her wound care. They turn her every 2 hours. Follow up four weeks. Call or come in sooner if have any questions or concerns. 06/09/231916 <Electronically signed by Barbra Esparza NP RECORDS AND INFORMATION MANAGER-C> Cosigner Signature (if applicable): CC: ~ Signed [facility] Work Phone: 1(965) 188-984107-23-2023 Progress note Author Barbra Esparza [facility] May 12, 2023 9:48pm Note Date/Time May 06, 2023 11:1 7am [facility] [address] [place] [id number] Progress Note - Wound Care 05/06/23 1117 MR#: [id number] Acct: [id number] Name: CHRISTOPHER CORONEL Rep #:[id number] : 1945 77 From: Barbra lema RECORDS AND INFORMATION MANAGER RECORDS AND INFORMATION MANAGER-C PCP: Dr. 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 She had progressive paraplegia. She went to TCU for acute rehab for this progressive paraplegia. During that time she had worsening sacral pressure sore with skin necrosis. Surgery 05/15/21 - Excision necrotic sacral pressure sore, Stage IV, with partialostectomy for osteomyelitis. Pathology from surgery on 05/15/21 of bone showed acute osteomyelitis. Operative tissue culture positive for Escherichia coli, Klebsiella, Vanc. Resist. E. gallinarum, Vanc. Resist. E. faecalis. Operative bone culture positive for Escherichia coli, Vanc. Resist. E. faecalis, Vanc. Resist. E. gallinarum. She was on Meropenem, Vancomycin has been stopped and Linezolid started. ID is managing. Radiation from 05/17/21 - 06/12/21 18 treatments to T4-T7 area including paraspinal region. 06/06/21- Laparoscopic sigmoid colectomy with creation of end colostomy for fecaldiversion. Was in TCU 06/08/21-07/20/21. Patient had a hospitalization on 01/19/2022. She states she had C. difficile. She was discharged on 01/22/2022. While she was hospitalized she developed a new ulcer on her right ischium. Has dry scabbing. Wound culture 03/25/23 positive for Klebsiella pneumoniae, Corynebacterium species, Corynebacterium striatum, Enterococcus faecalis, Staphylococcus hominishominis, Streptococcus canis, and Staphylococcus haemolyticus. She is being treated with Augmentin. Wound Care - Dakins 0.25 % moistened gauze covered with ABD daily to sacral ulcer. Place A&D ointment or Aquaphor for a barrier cream to laney wound of sacral ulcer to moisturize and protect the skin. She denies any nausea and vomiting. She states that her appetite is improving and she is drinking extra protein shakes. Progress of Wound: Sacral ulcer is stable, the ulcer bed is pink, there is undermining at 12 o'clock. She completed the Augmentin. Objective Data Objective Data Vital Signs: Vital Signs Temp Pulse Resp BP O2 Del Method 97.6 F L 76 16 182/74 H Room Air 05/06/23 09:41 05/06/23 09:41 05/06/23 09:41 05/06/23 09:41 05/06/23 09:41 Oxygen Delivery Method Room Air Weight: 155 lb 11.464 oz Body Mass Index (BMI) 25.9 Charges/Coding Procedures Integumentary 111xxx-113xx: 11119 Casie subq tissue 20 sq cm/< Debridement Note Debridement Note Wound debrided: Sacral ulcer Type of Debridement: Excisional debridement Anesthesia Used: 4% Lidocaine Solution Depth: Down to and including healthy tissue and in the subcutaneous layer Percentage of wound debrided: 100 Instrument Used: 3mm curette Tissue Removed: Non viable tissue and slough. Severity: Fat Layer Exposed Amount of bleeding with debridement: Mild Bleeding Controlled with: Pressure and Compression and gauze Patient tolerated procedure: Patient tolerated procedure well Post-Debridement Measurements and Additional Note: Post-Debridement Measurements/Treatment - Nurse 1 - General Ulcer Assessment Start: 05/06/23 09:41 Freq: Status: Active Protocol: .LOWASCENCION Activity Type Activity Date Activity User E-sign Co-sign Detail Recorded Client Recorded Date Recorded By Document 05/06/23 09:41 KW [id number] 05/06/23 09:54 KW 05/06/23 09:41 - Today's Visit Information Type of service Follow-up Visit (Physician/MANAGER OF PLANNING ) Arrival Mode Wheelchair Transfer Assistance Will Lift Accompanied by family- and daughter Patient Identification Verified (Name & Yes ) Height and Weight Body Mass Index (BMI) 25.9 BMI Classification Overweight Vital Signs Temperature (97.8 F-99.1 F) 97.6 F L Temperature Source Temporal Pulse Rate (60-100) 76 Pulse Location Monitor Respiratory Rate (12-18) 16 Respiratory rate source Observation Oxygen Delivery Method Room Air Blood Pressure (90/60-120/80) 182/74 H Blood Pressure Mean (mm Hg) 110 Source Monitor Position Sitting Blood Pressure Location Left Arm History Since Last Visit- (Skip if this is Patient's initial visit) Have you changed medications since your No last visit? Any new allergies or adverse reactions No Had a fall/change in ADL's that may No increase risk of falls Signs or symptoms of abuse and/or No neglect since last visit Have you been in the hospital since your Yes last visit? Has dressing in place as prescribed No Has compression in place as prescribed N/A Has offloadiing in place as prescribed N/A Experienced any changes in pain level or No management Left Footwear Regular Shoe Right Footwear Regular Shoe Pain Scale: 0-10 Numeric Is Patient Pain Free? Yes - Nurse 1 - General Ulcer Measurement Start: 05/06/23 09:41 Freq: Status: Active Protocol: Activity Type Activity Date Activity User E-sign Co-sign Detail Recorded Client Recorded Date Recorded By Document 05/06/23 09:41 [id number] 05/06/23 09:54 05/06/23 09:41 Wound Center Nurse 1 #1 Sacral cluster -Current Size (cm) - Length 1.0 -Current Size (cm) - Width 0.4 -Current Size (cm) - Depth 0.3 -Total Square Cm 0.40 -Photo Taken No -Exudate Amt Small -Exudate Type Serosanguineous -Wound Margin Distinct, Outline Attached -Granulation Amt Large (67-100%) -Granulation Quality Red -Necrosis Amt Small (1-33%) -Necrotic Tissue Type Adherent Slough -Texture (Laney-wound Skin Appearance) Assessed -Moisture (Laney-wound Skin Appearance) Assessed -Color (Laney-wound Skin Appearance) Assessed -Temperature (Laney-wound Skin No Abnormality Appearance) (Pt Warm) -Ulcer Cleansing Rinsed/ Irrigated with Saline -Foul Odor after Cleansing No -Anesthetic Used 5% Lidocaine Gel Lower Limb Edema Present NA - Nurse 2 - General Ulcer CM Notes Start: 05/06/23 09:41 Freq: Status: Active Protocol: Activity Type Activity Date Activity User E-sign Co-sign Detail Recorded Client Recorded Date Recorded By Document 05/06/23 10:37 BEN [id number] 05/06/23 10:38 BEN 05/06/23 10:37 Wound Center Nurse 2 #1 Sacral cluster -Time 10:37 -Correct Patient Yes -Correct Side, Site, Position Yes -Correct Procedure Yes -Procedure Performed Yes -Type of Procedure Debridement -Clinical Debridement Subcutaneous -Tissue Removed Subcutaneous -Post Debridement (cm) - Length 1.1 -Post Debridement (cm) - Width 0.5 -Post Debridement (cm) - Depth 0.2 -Total Square (Post) (cm) 0.55 -Area of Debridement (cm) - Length 1.1 -Area of Debridement (cm) - Width 0.5 -Total Square (Area) (cm) 0.55 -Tunneling Yes -Tunneling Position (O'clock) 12 -Tunneling Distance (cm) 0.3 -Undermining/Tunneling No -Circular Undermining No -Wound/Ulcer Outcome Not Healed -Ulcer Cleansing Rinsed/ Irrigated with Saline -Foul Odor after Cleansing No -Bioengineered Tissue No -Bleeding Controlled with Pressure -Treatment Response Procedure Tolerated Well -Offloading No -Debridement - Subq, 1st 20sq cm Yes Pain Scale: 0-10 Numeric Is Patient Pain Free? Yes - Nurse 3 - General Ulcer D/C NN Start: 05/06/23 09:41 Freq: Status: Active Protocol: Activity Type Activity Date Activity User E-sign Co-sign Detail Recorded Client Recorded Date Recorded By Document 05/06/23 10:37 [id number] 05/06/23 10:37 05/06/23 10:37 Wound Care Center Nurse 3 #1 Sacral cluster -Ulcer Cleansing Rinsed/ Irrigated with Saline -Foul Odor after Cleansing No -Primary Dressing Applied Mepilex Border -Primary Dressing Covered/Secured with Dry Gauze -Mepilex Border 1 Pain Scale: 0-10 Numeric Is Patient Pain Free? Yes - Visit Discharge Discharge Condition Stable Ambulatory Status Wheelchair Transportation Private Auto Medication Reconcilliation completed & No provided to patient/care provider Clinical Summary of Care Provided Yes Assessment/Plan Assessment/Plan (1) Pressure ulcer of sacral region, stage 4: CODE(S): L89.154 - Pressure ulcer of sacral region, stage 4 (2) Paraplegia: CODE(S): G82.20 - Paraplegia, unspecified (3) Osteomyelitis of pelvis: CODE(S): M86.9 - Osteomyelitis, unspecified (4) Large B-cell lymphoma: CODE(S): C85.10 - Unspecified B-cell lymphoma, unspecified site PLAN: Plan Wound Care - Dakins 0.25 % moistened gauze covered with ABD or [place] SAP daily.May alternate the Dakins with Aquacel-Ag covered with gauze, if you would like. Laney wound is clear. Continue barrier cream to protect laney wound. A wound culture was obtained on 03/25/23 which was positive for Klebsiella pneumoniae, Corynebacterium species, Corynebacterium striatum, Enterococcus faecalis, Staphylococcus hominis hominis, Streptococcus canis, and Staphylococcus haemolyticus.? She is being treated with Augmentin.? Wound culture 10/07/21 while in the hospital positive for Klebsiella oxytoca, Staphylococcus haemolyticus, and Corynebacterium striatum. Treated with Zosyn and Vanc while hospitalized. Completed Augmentin. Wound culture from 09/12/21 was positive for Staphylococcus haemolyticus and Enterococcus faecalis. Completed Augmentin and Doxycycline and a probiotic. Encourage increased protein intake to help with wound healing. Her family does a really nice job with her wound care. They turn her every 2 hours. Follow up four weeks, since there was a recent change in her ulcer. Call or come in sooner if have any questions or concerns. 05/12/232147 <Electronically signed by Barbra Esparza NP RECORDS AND INFORMATION MANAGER-C> Cosigner Signature (if applicable): CC: ~ Signed [facility] Work Phone: 1(574) 953-604905-10-2023 Progress note Author Barbra Esparza [facility] February 27, 2023 9:24am Note Date/Time February 25, 2023 1:33pm [facility] [address] [place] [address] Progress Note - Wound Care 02/25/23 1333 MR#: [id number] Acct: [id number] Name: CHRISTOPHER CORONEL Rep #:[id number] : 1945 77 From: Barbra lema NP RECORDS AND INFORMATION MANAGER-C PCP: Dr. 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 She had progressive paraplegia. She went to TCU for acute rehab for this progressive paraplegia. During that time she had worsening sacral pressure sore with skin necrosis. Surgery 05/15/21 - Excision necrotic sacral pressure sore, Stage IV, with partialostectomy for osteomyelitis. Pathology from surgery on 05/15/21 of bone showed acute osteomyelitis. Operative tissue culture positive for Escherichia coli, Klebsiella, Vanc. Resist. E. gallinarum, Vanc. Resist. E. faecalis. Operative bone culture positive for Escherichia coli, Vanc. Resist. E. faecalis, Vanc. Resist. E. gallinarum. She was on Meropenem, Vancomycin has been stopped and Linezolid started. ID is managing. Radiation from 05/17/21 - 06/12/21 18 treatments to T4-T7 area including paraspinal region. 06/06/21- Laparoscopic sigmoid colectomy with creation of end colostomy for fecaldiversion. Was in TCU 06/08/21-07/20/21. Patient had a recent hospitalization on 01/19/2022. She states she had C. difficile. She was discharged on 01/22/2022. While she was hospitalized she developed a new ulcer on her right ischium. Has dry scabbing. Wound Care - Moistened Aquacel-Ag covered with gauze dressing daily. Right ischium ulcer remains healed. The left ischial is healed. Place A&D ointment or Aquaphor for a barrier cream to laney wound of sacral ulcer to moisturize and protect the skin. Stop using calmaceptine, because it is drying out the laney wound. She denies any nausea and vomiting. She states that her appetite is improving and she is drinking extra protein shakes. Progress of Wound: Sacral ulcer is slightly smaller. Laney wound is clear. Her family does a good job with her skin care and turning her every 2 hours. Objective Data Objective Data Vital Signs: Vital Signs Temp Pulse Resp BP O2 Del Method 97.6 F L 58 L 16 158/63 H Room Air 02/25/23 09:59 02/25/23 09:59 02/25/23 09:59 02/25/23 09:59 02/25/23 09:59 Oxygen Delivery Method Room Air Weight: 155 lb 11.464 oz Body Mass Index (BMI) 25.9 Charges/Coding Procedures Integumentary 111xxx-113xx: 95741 Casie subq tissue 20 sq cm/< Debridement Note Debridement Note Wound debrided: Sacral ulcer Wound Grade/Stage: Stage IV Type of Debridement: Excisional debridement Anesthesia Used: 4% Lidocaine Solution Depth: Down to and including healthy tissue and in the subcutaneous layer Percentage of wound debrided: 100 Instrument Used: 3mm curette Tissue Removed: Non viable tissue and slough. Severity: Limited To Skin Breakdown Amount of bleeding with debridement: Mild Bleeding Controlled with: Pressure and Compression and gauze Patient tolerated procedure: Patient tolerated procedure well Post-Debridement Measurements and Additional Note: Post-Debridement Measurements/Treatment - Nurse 1 - General Ulcer Assessment Start: 02/25/23 09:58 Freq: Status: Active Protocol: REJI Activity Type Activity Date Activity User E-sign Co-sign Detail Recorded Client Recorded Date Recorded By Document 02/25/23 09:59 [facility] [id number] 02/25/23 10:06 [facility] 02/25/23 09:59 - Today's Visit Information Type of service Follow-up Visit (Physician/MANAGER OF PLANNING ) Arrival Mode Wheelchair Transfer Assistance Will Lift Accompanied by Patient Identification Verified (Name & Yes ) Patient Requires Transmission-Based No Precautions Height and Weight Body Mass Index (BMI) 25.9 BMI Classification Overweight Vital Signs Temperature (97.8 F-99.1 F) 97.6 F L Temperature Source Temporal Pulse Rate (60-100) 58 L Pulse Location Monitor Respiratory Rate (12-18) 16 Respiratory rate source Observation Oxygen Delivery Method Room Air Blood Pressure (90/60-120/80) 158/63 H Blood Pressure Mean (mm Hg) 94 Source Monitor Position Sitting Blood Pressure Location Left Arm History Since Last Visit- (Skip if this is Patient's initial visit) Have you changed medications since your No last visit? Any new allergies or adverse reactions No Had a fall/change in ADL's that may No increase risk of falls Signs or symptoms of abuse and/or No neglect since last visit Have you been in the hospital since your No last visit? Has dressing in place as prescribed Yes Has compression in place as prescribed N/A Has offloadiing in place as prescribed N/A Experienced any changes in pain level or No management Left Footwear Slipper Right Footwear Slipper Pain Scale: 0-10 Numeric Is Patient Pain Free? Yes - Nurse 1 - General Ulcer Measurement Start: 02/25/23 09:58 Freq: Status: Active Protocol: Activity Type Activity Date Activity User E-sign Co-sign Detail Recorded Client Recorded Date Recorded By Document 02/25/23 09:59 [facility] [id number] 02/25/23 10:06 [facility] 02/25/23 09:59 Wound Center Nurse 1 #1 Sacral cluster -Combined with other wound No -Current Size (cm) - Length 0.1 -Current Size (cm) - Width 0.1 -Current Size (cm) - Depth 0.1 -Total Square Cm 0.01 -Date of Last Picture (Recall this 02/25/23 field) -Photo Taken Yes -Epithelialization Small 1-33% -Tunneling No -Undermining/Tunneling No -Circular Undermining No -Exudate Amt None Present -Wound Margin Thickened & Rolled Under -Granulation Amt Large (67-100%) -Granulation Quality [place] -Slough/Fibrin No -Necrosis Amt None Present (0 %) -Texture (Laney-wound Skin Appearance) Assessed, Scarring -Moisture (Laney-wound Skin Appearance) Assessed -Color (Laney-wound Skin Appearance) Assessed -Temperature (Laney-wound Skin No Abnormality Appearance) (Pt Warm) -Tenderness on Palpation (Laney-wound No Skin Appearance) -Ulcer Cleansing Soap and Water -Foul Odor after Cleansing No -Anesthetic Used 5% Lidocaine Gel - Nurse 2 - General Ulcer CM Notes Start: 02/25/23 09:58 Freq: Status: Active Protocol: Activity Type Activity Date Activity User E-sign Co-sign Detail Recorded Client Recorded Date Recorded By Document 02/25/23 10:25 [id number] 02/25/23 10:27 02/25/23 10:25 Wound Center Nurse 2 -Time 10:27 -Correct Patient Yes -Correct Side, Site, Position Yes -Correct Procedure Yes -Procedure Performed Yes -Type of Procedure Debridement -Clinical Debridement Subcutaneous -Tissue Removed Subcutaneous -Post Debridement (cm) - Length 1.0 -Post Debridement (cm) - Width 0.8 -Post Debridement (cm) - Depth 0.2 -Total Square (Post) (cm) 0.80 -Area of Debridement (cm) - Length 1.0 -Area of Debridement (cm) - Width 0.8 -Total Square (Area) (cm) 0.80 -Tunneling No -Undermining/Tunneling No -Circular Undermining No -Wound/Ulcer Outcome Not Healed -Ulcer Cleansing Rinsed/ Irrigated with Saline -Foul Odor after Cleansing No -Bioengineered Tissue No -Bleeding Controlled with Pressure -Treatment Response Procedure Tolerated Well -Offloading No -Pressure Reduction Wheelchair cushion -Debridement - Subq, 1st 20sq cm Yes Pain Scale: 0-10 Numeric Is Patient Pain Free? Yes - Nurse 3 - General Ulcer D/C NN Start: 02/25/23 09:58 Freq: Status: Active Protocol: Activity Type Activity Date Activity User E-sign Co-sign Detail Recorded Client Recorded Date Recorded By Document 02/25/23 10:34 [facility] [id number] 02/25/23 10:35 [facility] 02/25/23 10:34 Wound Care Center Nurse 3 #1 Sacral cluster -Ulcer Cleansing Rinsed/ Irrigated with Saline -Foul Odor after Cleansing No -Primary Dressing Applied Aquacel AG 4x4 -Other Dressing per dl -Primary Dressing Covered/Secured with Dry Gauze, Secured with Tape -Aquacel AG 4x4 1 Treatment Response Procedure Tolerated Well Pain Scale: 0-10 Numeric Is Patient Pain Free? Yes - Visit Discharge Discharge Condition Stable Ambulatory Status Wheelchair Transportation Private Auto Accompanied by val and Facility Type Home Health Assessment/Plan Assessment/Plan (1) Pressure ulcer of sacral region, stage 4: CODE(S): L89.154 - Pressure ulcer of sacral region, stage 4 (2) Paraplegia: CODE(S): G82.20 - Paraplegia, unspecified (3) Osteomyelitis of pelvis: CODE(S): M86.9 - Osteomyelitis, unspecified (4) Large B-cell lymphoma: CODE(S): C85.10 - Unspecified B-cell lymphoma, unspecified site PLAN: Plan Wound Care - Moistened Aquacel-Ag covered with gauze daily. Laney wound is clear. Wound culture 10/07/21 while in the hospital positive for Klebsiella oxytoca, Staphylococcus haemolyticus, and Corynebacterium striatum. Treated with Zosyn and Vanc while hospitalized. Completed Augmentin. Wound culture from 09/12/21 was positive for Staphylococcus haemolyticus and Enterococcus faecalis. Completed Augmentin and Doxycycline and a probiotic. Encourage increased protein intake to help with wound healing. Her family does a really nice job with her wound care. They turn her every 2 hours. Follow up 4 weeks. Call or come in sooner if have any questions or concerns. 02/27/23 0924 <Electronically signed by Barbra Esparza NP RECORDS AND INFORMATION MANAGER-C> Cosigner Signature (if applicable): CC: ~ Signed [facility] Work Phone: 1(157) 594-397604-11-2023 Progress note Author Barbra Esparza [facility] January 29, 2023 1:27pm Note Date/Time January 28, 2023 11: 33am [facility] [address] [place] [address] Progress Note - Wound Care 01/28/23 1133 MR#: [id number] Acct: [id number] Name: CHRISTOPHER CORONEL Rep #:[id number] : 1945 77 From: Barbra lema NP RECORDS AND INFORMATION MANAGER-C PCP: Dr. 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 She had progressive paraplegia. She went to TCU for acute rehab for this progressive paraplegia. During that time she had worsening sacral pressure sore with skin necrosis. Surgery 05/15/21 - Excision necrotic sacral pressure sore, Stage IV, with partialostectomy for osteomyelitis. Pathology from surgery on 05/15/21 of bone showed acute osteomyelitis. Operative tissue culture positive for Escherichia coli, Klebsiella, Vanc. Resist. E. gallinarum, Vanc. Resist. E. faecalis. Operative bone culture positive for Escherichia coli, Vanc. Resist. E. faecalis, Vanc. Resist. E. gallinarum. She was on Meropenem, Vancomycin has been stopped and Linezolid started. ID is managing. Radiation from 05/17/21 - 06/12/21 18 treatments to T4-T7 area including paraspinal region. 06/06/21- Laparoscopic sigmoid colectomy with creation of end colostomy for fecaldiversion. Was in TCU 06/08/21-07/20/21. Patient had a recent hospitalization on 01/19/2022. She states she had C. difficile. She was discharged on 01/22/2022. While she was hospitalized she developed a new ulcer on her right ischium. Has dry scabbing. Wound Care - Moistened Aquacel-Ag covered with gauze dressing daily. Right ischium ulcer remains healed. The left ischial is healed. Place A&D ointment or Aquaphor for a barrier cream to laney wound of sacral ulcer to moisturize and protect the skin. Stop using calmaceptine, because it is drying out the laney wound. She denies any nausea and vomiting. She states that her appetite is improving and she is drinking extra protein shakes. Progress of Wound: Sacral ulcer is stable. Laney wound is clear. She has a new skin tear on her right buttocks from tape. She recently had Covid and Influenza B but is doing better. Objective Data Objective Data Vital Signs: Vital Signs Temp Pulse Resp BP O2 Del Method 96.7 F L 64 16 144/67 H Room Air 01/28/23 09:51 01/28/23 09:51 01/28/23 09:51 01/28/23 09:51 01/28/23 09:51 Oxygen Delivery Method Room Air Weight: 155 lb 11.464 oz Body Mass Index (BMI) 25.9 Charges/Coding Procedures Integumentary 111xxx-113xx: 71227 Casie subq tissue 20 sq cm/< Debridement Note Debridement Note Wound debrided: Sacral ulcer Wound Grade/Stage: Stage IV Type of Debridement: Excisional debridement Anesthesia Used: 4% Lidocaine Solution Depth: Down to and including healthy tissue and in the subcutaneous layer Percentage of wound debrided: 100 Instrument Used: 3mm curette Tissue Removed: Non viable tissue and slough. Severity: Limited To Skin Breakdown Amount of bleeding with debridement: Mild Bleeding Controlled with: Pressure and Compression and gauze Patient tolerated procedure: Patient tolerated procedure well Post-Debridement Measurements and Additional Note: Post-Debridement Measurements/Treatment WC - Nurse 1 - General Ulcer Assessment Start: 01/28/23 09:51 Freq: Status: Active Protocol: KRANTHI Activity Type Activity Date Activity User E-sign Co-sign Detail Recorded Client Recorded Date Recorded By Document 01/28/23 09:51 [facility] [id number] 01/28/23 10:01 [facility] 01/28/23 09:51 - Today's Visit Information Type of service Follow-up Visit (Physician/MANAGER OF PLANNING ) Arrival Mode Wheelchair Transfer Assistance Will Lift Patient Identification Verified (Name & Yes ) Patient Requires Transmission-Based No Precautions Height and Weight Body Mass Index (BMI) 25.9 BMI Classification Overweight Vital Signs Temperature (97.8 F-99.1 F) 96.7 F L Temperature Source Temporal Pulse Rate (60-100) 64 Pulse Location Monitor Respiratory Rate (12-18) 16 Respiratory rate source Observation Oxygen Delivery Method Room Air Blood Pressure (90/60-120/80) 144/67 H Blood Pressure Mean (mm Hg) 92 Source Monitor Position Sitting History Since Last Visit- (Skip if this is Patient's initial visit) Have you changed medications since your No last visit? Any new allergies or adverse reactions No Had a fall/change in ADL's that may No increase risk of falls Signs or symptoms of abuse and/or No neglect since last visit Have you been in the hospital since your No last visit? Has dressing in place as prescribed Yes Has compression in place as prescribed N/A Has offloadiing in place as prescribed N/A Experienced any changes in pain level or No management Left Footwear Slipper Right Footwear Slipper Pain Scale: 0-10 Numeric Is Patient Pain Free? Yes - Nurse 1 - General Ulcer Measurement Start: 01/28/23 09:51 Freq: Status: Active Protocol: Activity Type Activity Date Activity User E-sign Co-sign Detail Recorded Client Recorded Date Recorded By Document 01/28/23 09:51 [facility] [id number] 01/28/23 10:01 [facility] 01/28/23 09:51 Wound Center Nurse 1 #1 Sacral cluster -Combined with other wound No -Current Size (cm) - Length 0.2 -Current Size (cm) - Width 0.9 -Current Size (cm) - Depth 0.3 -Total Square Cm 0.18 -Date of Last Picture (Recall this 01/28/23 field) -Photo Taken Yes -Epithelialization Small 1-33% -Tunneling No -Undermining/Tunneling No -Circular Undermining No -Exudate Amt Small -Exudate Type Serous -Wound Margin Distinct, Outline Attached -Granulation Amt Large (67-100%) -Granulation Quality Red -Slough/Fibrin Yes -Necrosis Amt Small (1-33%) -Necrotic Tissue Type Adherent Slough -Texture (Laney-wound Skin Appearance) Assessed, Scarring -Moisture (Laney-wound Skin Appearance) Assessed -Color (Laney-wound Skin Appearance) Assessed -Temperature (Laney-wound Skin No Abnormality Appearance) (Pt Warm) -Tenderness on Palpation (Laney-wound No Skin Appearance) -Ulcer Cleansing Soap and Water -Foul Odor after Cleansing No -Anesthetic Used 5% Lidocaine Gel NICOLAS - Nurse 2 - General Ulcer CM Notes Start: 01/28/23 09:51 Freq: Status: Active Protocol: Activity Type Activity Date Activity User E-sign Co-sign Detail Recorded Client Recorded Date Recorded By Document 01/28/23 10:20 BEN [id number] 01/28/23 10:23 01/28/23 10:20 Wound Center Nurse 2 -Time 10:20 -Correct Patient Yes -Correct Side, Site, Position Yes -Correct Procedure Yes -Procedure Performed Yes -Type of Procedure Debridement -Clinical Debridement Subcutaneous -Tissue Removed Subcutaneous -Post Debridement (cm) - Length 0.4 -Post Debridement (cm) - Width 1.5 -Post Debridement (cm) - Depth 0.2 -Total Square (Post) (cm) 0.60 -Area of Debridement (cm) - Length 0.4 -Area of Debridement (cm) - Width 1.5 -Total Square (Area) (cm) 0.60 -Tunneling No -Undermining/Tunneling No -Circular Undermining No -Wound/Ulcer Outcome Not Healed -Ulcer Cleansing Rinsed/ Irrigated with Saline -Foul Odor after Cleansing No -Bioengineered Tissue No -Bleeding Controlled with Pressure -Treatment Response Procedure Tolerated Well -Offloading No -Pressure Reduction Wheelchair cushion, Mattress overlay -Debridement - Subq, 1st 20sq cm Yes Pain Scale: 0-10 Numeric Is Patient Pain Free? Yes NICOLAS - Nurse 3 - General Ulcer D/C NN Start: 01/28/23 09:51 Freq: Status: Active Protocol: Activity Type Activity Date Activity User E-sign Co-sign Detail Recorded Client Recorded Date Recorded By Document 01/28/23 10:46 [facility] [id number] 01/28/23 10:47 RB 01/28/23 10:46 Wound Care Center Nurse 3 #1 Sacral cluster -Ulcer Cleansing Rinsed/ Irrigated with Saline -Primary Dressing Applied Mepilex Border -Other Dressing aquacel ag/ bordered adhesive -Mepilex Border 1 Treatment Response Procedure Tolerated Well Pain Scale: 0-10 Numeric Is Patient Pain Free? Yes WC - Visit Discharge Discharge Condition Stable Ambulatory Status Wheelchair Transportation Private Auto Medication Reconcilliation completed & No provided to patient/care provider Clinical Summary of Care Provided Yes Assessment/Plan Assessment/Plan (1) Pressure ulcer of sacral region, stage 4: CODE(S): L89.154 - Pressure ulcer of sacral region, stage 4 (2) Paraplegia: CODE(S): G82.20 - Paraplegia, unspecified (3) Osteomyelitis of pelvis: CODE(S): M86.9 - Osteomyelitis, unspecified (4) Large B-cell lymphoma: CODE(S): C85.10 - Unspecified B-cell lymphoma, unspecified site PLAN: Plan Wound Care - Moistened Aquacel-Ag covered with gauze daily. Place adaptic over skin tear until healed. Laney wound of the sacral ulcer is clear using the A&D ointment to the laney wound. Wound culture 10/07/21 while in the hospital positive for Klebsiella oxytoca, Staphylococcus haemolyticus, and Corynebacterium striatum. Treated with Zosyn and Vanc while hospitalized. Completed Augmentin. Wound culture from 09/12/21 was positive for Staphylococcus haemolyticus and Enterococcus faecalis. Completed Augmentin and Doxycycline and a probiotic. Encourage increased protein intake to help with wound healing. Her family does a really nice job with her wound care. They turn her every 2 hours. Follow up 4 weeks. Call or come in sooner if have any questions or concerns. 01/29/23 1327 <Electronically signed by Barbra Esparza NP RECORDS AND INFORMATION MANAGER-C> Cosigner Signature (if applicable): CC: ~ Signed [facility] Work Phone: 1(321) 516-585401-08-2023 Progress note Author Barbra Esparza [facility] Glenny 8th, 2023 7:12pm Note Date/Time October 28, 2022 7: 11pm [facility] [address] [place] [address] Progress Note - Wound Care 10/24/22 1204 MR#: [id number] Acct: [id number] Name: CHRISTOPHER CORONEL Rep #:[id number] : 1945 77 From: Barbra lema RECORDS AND INFORMATION MANAGER RECORDS AND INFORMATION MANAGER-C PCP: Dr. 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 She had progressive paraplegia. She went to TCU for acute rehab for this progressive paraplegia. During that time she had worsening sacral pressure sore with skin necrosis. Surgery 05/15/21 - Excision necrotic sacral pressure sore, Stage IV, with partialostectomy for osteomyelitis. Pathology from surgery on 05/15/21 of bone showed acute osteomyelitis. Operative tissue culture positive for Escherichia coli, Klebsiella, Vanc. Resist. E. gallinarum, Vanc. Resist. E. faecalis. Operative bone culture positive for Escherichia coli, Vanc. Resist. E. faecalis, Vanc. Resist. E. gallinarum. She was on Meropenem, Vancomycin has been stopped and Linezolid started. ID is managing. Radiation from 05/17/21 - 06/12/21 18 treatments to T4-T7 area including paraspinal region. 06/06/21- Laparoscopic sigmoid colectomy with creation of end colostomy for fecaldiversion. Was in TCU 06/08/21-07/20/21. Patient had a recent hospitalization on 01/19/2022. She states she had C. difficile. She was discharged on 01/22/2022. While she was hospitalized she developed a new ulcer on her right ischium. Has dry scabbing. Wound Care - Moistened Aquacel-Ag covered with gauze dressing daily. Right ischium ulcer remains healed. The left ischial is healed. Place A&D ointment or Aquaphor for a barrier cream to laney wound of sacral ulcer to moisturize and protect the skin. Stop using calmaceptine, because it is drying out the laney wound. She denies any nausea and vomiting. She states that her appetite is improving and she is drinking extra protein shakes. Progress of Wound: Sacral ulcer is larger than her last visit. Laney wound is clear using the A&D ointment. She was in the ED a week ago for UTI. She is currently on Keflex and Bactrim. Objective Data Objective Data Vital Signs: Vital Signs Temp Pulse Resp BP 96 F L 53 L 18 137/50 H 10/24/22 10:15 10/24/22 10:15 10/24/22 10:15 10/24/22 10:15 Weight: 155 lb 11.464 oz Body Mass Index (BMI) 25.9 Charges/Coding Procedures Integumentary 111xxx-113xx: 36693 Casie subq tissue 20 sq cm/< Debridement Note Debridement Note Wound debrided: Sacral ulcer Wound Grade/Stage: Stage IV Type of Debridement: Excisional debridement Anesthesia Used: 4% Lidocaine Solution Depth: Down to and including healthy tissue and in the subcutaneous layer Percentage of wound debrided: 100 Instrument Used: 3mm curette Tissue Removed: Non viable tissue and slough. Severity: Limited To Skin Breakdown Amount of bleeding with debridement: Mild Bleeding Controlled with: Pressure and Compression and gauze Patient tolerated procedure: Patient tolerated procedure well Post-Debridement Measurements and Additional Note: Post-Debridement Measurements/Treatment - Nurse 1 - General Ulcer Assessment Start: 10/24/22 10:02 Freq: Status: Active Protocol: KRANTHI Activity Type Activity Date Activity User E-sign Co-sign Detail Recorded Client Recorded Date Recorded By Document 10/24/22 10:15 [id number] 10/24/22 10:17 RB 10/24/22 10:15 - Today's Visit Information Type of service Follow-up Visit (Physician/MANAGER OF PLANNING ) Arrival Mode Wheelchair Transfer Assistance Will Lift Patient Identification Verified (Name & Yes ) Patient Requires Transmission-Based No Precautions Height and Weight Body Mass Index (BMI) 25.9 BMI Classification Overweight Vital Signs Temperature (97.8 F-99.1 F) 96 F L Temperature Source Temporal Pulse Rate (60-100) 53 L Pulse Location Monitor Respiratory Rate (12-18) 18 Respiratory rate source Observation Blood Pressure (90/60-120/80) 137/50 H Blood Pressure Mean (mm Hg) 79 Source Monitor Position Semi-Fowlers Blood Pressure Location Left Arm History Since Last Visit- (Skip if this is Patient's initial visit) Have you changed medications since your No last visit? Any new allergies or adverse reactions No Had a fall/change in ADL's that may No increase risk of falls Signs or symptoms of abuse and/or No neglect since last visit Have you been in the hospital since your No last visit? Has dressing in place as prescribed Yes Has compression in place as prescribed No Has offloadiing in place as prescribed No Experienced any changes in pain level or No management Pain Scale: 0-10 Numeric Is Patient Pain Free? Yes WC - Nurse 1 - General Ulcer Measurement Start: 10/24/22 10:02 Freq: Status: Active Protocol: Activity Type Activity Date Activity User E-sign Co-sign Detail Recorded Client Recorded Date Recorded By Document 10/24/22 10:15 [facility] [id number] 10/24/22 10:17 [facility] 10/24/22 10:15 Wound Center Nurse 1 #1 Sacral cluster -Combined with other wound No -Current Size (cm) - Length 0.7 -Current Size (cm) - Width 0.2 -Current Size (cm) - Depth 0.2 -Total Square Cm 0.14 -Photo Taken Yes -Tunneling No -Undermining/Tunneling No -Circular Undermining No -Exudate Amt Medium -Exudate Type Serosanguineous -Wound Margin Distinct, Outline Attached -Granulation Amt Medium (34-66%) -Granulation Quality [place] -Slough/Fibrin Yes -Necrosis Amt Medium (34-66%) -Necrotic Tissue Type Adherent Slough -Structure Exposed N/A -Texture (Laney-wound Skin Appearance) Assessed,Rash -Moisture (Laney-wound Skin Appearance) Assessed -Color (Laney-wound Skin Appearance) Assessed -Temperature (Laney-wound Skin No Abnormality Appearance) (Pt Warm) -Tenderness on Palpation (Laney-wound No Skin Appearance) -Ulcer Cleansing Wound Cleanser -Foul Odor after Cleansing No -Anesthetic Used 5% Lidocaine Gel NICOLAS - Nurse 2 - General Ulcer CM Notes Start: 10/24/22 10:02 Freq: Status: Active Protocol: Activity Type Activity Date Activity User E-sign Co-sign Detail Recorded Client Recorded Date Recorded By Document 10/24/22 11:15 [id number] 10/24/22 11:18 10/24/22 11:15 Wound Center Nurse 2 -Time 11:15 -Correct Patient Yes -Correct Side, Site, Position Yes -Correct Procedure Yes -Procedure Performed Yes -Type of Procedure Debridement -Clinical Debridement Subcutaneous -Tissue Removed Subcutaneous -Post Debridement (cm) - Length 1.0 -Post Debridement (cm) - Width 2.7 -Post Debridement (cm) - Depth 0.1 -Total Square (Post) (cm) 2.70 -Area of Debridement (cm) - Length 1.0 -Area of Debridement (cm) - Width 2.7 -Total Square (Area) (cm) 2.70 -Tunneling No -Undermining/Tunneling No -Circular Undermining No -Wound/Ulcer Outcome Not Healed -Ulcer Cleansing Rinsed/ Irrigated with Saline -Foul Odor after Cleansing No -Bioengineered Tissue No -Bleeding Controlled with Pressure -Treatment Response Procedure Tolerated Well -Offloading No -Pressure Reduction Wheelchair cushion -Debridement - Subq, 1st 20sq cm Yes Pain Scale: 0-10 Numeric Is Patient Pain Free? Yes - Nurse 3 - General Ulcer D/C NN Start: 10/24/22 10:02 Freq: Status: Active Protocol: Activity Type Activity Date Activity User E-sign Co-sign Detail Recorded Client Recorded Date Recorded By Document 10/24/22 11:25 [facility] [id number] 10/24/22 11:26 [facility] 10/24/22 11:25 Wound Care Nurse 3 #1 Sacral cluster -Ulcer Cleansing Rinsed/ Irrigated with Saline -Foul Odor after Cleansing No -Primary Dressing Applied Aquacel AG 4x4, Mepilex Border -Other Dressing DRSG PER RB RN -Aquacel AG 4x4 1 -Mepilex Border 1 Treatment Response Procedure Tolerated Well Pain Scale: 0-10 Numeric Is Patient Pain Free? Yes WC - Visit Discharge Discharge Condition Stable Ambulatory Status Wheelchair Transportation Private Auto Accompanied by DAUGHTER AND Facility Type Home Health Assessment/Plan Assessment/Plan (1) Pressure ulcer of sacral region, stage 4: CODE(S): L89.154 - Pressure ulcer of sacral region, stage 4 (2) Paraplegia: CODE(S): G82.20 - Paraplegia, unspecified (3) Osteomyelitis of pelvis: CODE(S): M86.9 - Osteomyelitis, unspecified (4) Large B-cell lymphoma: CODE(S): C85.10 - Unspecified B-cell lymphoma, unspecified site PLAN: Plan Wound Care - Moistened Aquacel-Ag covered with gauze daily. Laney wound of the sacral ulcer is clear using the A&D ointment to the laney wound. The right ischial ulcer remains healed. Encouraged to massage the healed areas 1-2 times a day with aquaphor/barrier cream with no zinc in it to help soften the scarring. Wound culture 10/07/21 while in the hospital positive for Klebsiella oxytoca, Staphylococcus haemolyticus, and Corynebacterium striatum. Treated with Zosyn and Vanc while hospitalized. Completed Augmentin. Wound culture from 09/12/21 was positive for Staphylococcus haemolyticus and Enterococcus faecalis. Completed Augmentin and Doxycycline and a probiotic. Encourage increased protein intake to help with wound healing. Her family does a really nice job with her wound care. Follow up 3 weeks. Call or come in sooner if have any questions or concerns. 10/28/221911 <Electronically signed by Barbra MORFINC> Cosigner Signature (if applicable): CC: ~ Signed [facility] Work Phone: 1(898) 831-811407-16-2021 [facility]07-16-2021 [facility]-15-2021 [facility] 05-04-2021 [facility]-14-2021 [facility]-14-2021 [facility]-13-2021 [facility]07-13-2021 [facility]07-13-2021 [facility]06-29-2021 [facility]-29-2021 Note [facility]06-28-2021 [facility] 04-17-2021 [facility]06-28-2021 [facility]06-27-2021 [facility]06-26-2021 [facility]-26-2021 [facility]06-25-2021 [facility]-24-2021 [facility]-24-2021 Note [facility]06-24-2021 [facility] 04-12-2021 [facility]06-23-2021 [facility]06-23-2021 NoteHNO ID: [id number] Author: Yoli Gudino RN Service: ? Author Type: Registered Nurse Type: Nursing Progress Note Filed: 04/12/2021 11:41 AM Note Text: Report called to PADMINI Morales on 4200.[facility]06-23-2021 Note HNO ID: [id number] Author: Delbert Jarvis MD Service: Infectious Disease Author Type: Physician Type: Plan of Care Filed: 04/12/2021 7:33 AM Note Text: ID Stool c diff pcr pos and eia neg - add oral vancomycin 125 mg po [facility]06-22-2021 Note [facility]06-22-2021 [facility] 04-10-2021 [facility]06-20-2021 [facility]06-20-2021 [facility]06-19-2021 [facility]06-19-2021 NoteHNO ID: [id number] Author: Jazlyn Aceves MD Service: Hematology/Oncology Author Type: Physician Type: Progress Notes Filed: 04/08/2021 7:44 AM Note Text: Chart reviewed. Counts improved. Will continue neupogen for one more day. Jazlyn Aceves [facility]06-19-2021 [facility]18-2021 [facility] Diagnosis Onset Date Resolution Status Osteomyelitis of pelvis acut e Pressure ulcer of sacral region, stage 4 acute Decubitus ulcer of left ischium, stage 4 chronic Paraplegia chronic Pressure ulcer of sacral region, stage 4 acute Decubitus ulcer of left ischium, stage 4 chronic Decubitus ulcer, infected re solved Encephalopathy acute resolve d Metabolic encephalopathy res olved MRI of brain abnormal acute Osteomyelitis of pelvis acut e Pressure ulcer of sacral region, stage 4 acute Decubitus ulcer of left ischium, stage 4 chronic Paraplegia chronic 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 MCI (mild cognitive impairment) chronic Paraplegia chronic Thoracic myelopathy chronic Left perineal ischial pressure ulcer acute Osteomyelitis of pelvis acut e Pressure ulcer of sacral region, 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 Left perineal ischial pressure ulcer acute Osteomyelitis of pelvis acut e Pressure ulcer of sacral region, 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 acute [facility] Work Phone: Evaluation note* Diagnosis Onset Date Resolution Status Osteomyelitis of pelvis acut e Pressure ulcer of sacral region, stage 4 acute Decubitus ulcer of left ischium, stage 4 chronic Paraplegia chronic Pressure ulcer of sacral region, stage 4 acute Decubitus ulcer of left ischium, stage 4 chronic Decubitus ulcer, infected re solved Encephalopathy acute resolve d Metabolic encephalopathy res olved MRI of brain abnormal acute Osteomyelitis of pelvis acut e Pressure ulcer of sacral region, stage 4 acute Decubitus ulcer of left ischium, stage 4 chronic Paraplegia chronic 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 MCI (mild cognitive impairment) chronic Paraplegia chronic Thoracic myelopathy chronic Left perineal ischial pressure ulcer acute Osteomyelitis of pelvis acut e Pressure ulcer of sacral region, 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 Left perineal ischial pressure ulcer acute Osteomyelitis of pelvis acut e Pressure ulcer of sacral region, 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 acute Abdominal pain acute Colitis acute Diarrhea acute Pressure ulcer of sacral region, stage 4 acute [facility] Work Phone: Evaluation note* Diagnosis Onset Date Resolution Status Osteomyelitis of pelvis acut e Pressure ulcer of sacral region, stage 4 acute Decubitus ulcer of left ischium, stage 4 chronic Paraplegia chronic Pressure ulcer of sacral region, stage 4 acute Decubitus ulcer of left ischium, stage 4 chronic Decubitus ulcer, infected re solved Encephalopathy acute resolve d Metabolic encephalopathy res olved MRI of brain abnormal acute Osteomyelitis of pelvis acut e Pressure ulcer of sacral region, stage 4 acute Decubitus ulcer of left ischium, stage 4 chronic Paraplegia chronic 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 MCI (mild cognitive impairment) chronic Paraplegia chronic Thoracic myelopathy chronic Left perineal ischial pressure ulcer acute Osteomyelitis of pelvis acut e Pressure ulcer of sacral region, 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 Left perineal ischial pressure ulcer acute Osteomyelitis of pelvis acut e Pressure ulcer of sacral region, 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 acute Abdominal pain acute Clostridium difficile colitis acute Colitis acute Diarrhea acute Pressure ulcer of sacral region, stage 4 acute [facility] Work Phone: Evaluation note* Diagnosis Onset Date Resolution Status MRI of brain abnormal acute Osteomyelitis of pelvis acut e Pressure ulcer of sacral region, stage 4 acute Paraplegia chronic Decubitus ulcer of left ischium, stage 4 resolved 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 MCI (mild cognitive impairment) chronic Paraplegia chronic Thoracic myelopathy chronic Left perineal ischial pressure ulcer acute Osteomyelitis of pelvis acut e Pressure ulcer of sacral region, 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 Left perineal ischial pressure ulcer acute Osteomyelitis of pelvis acut e Pressure ulcer of sacral region, 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 acute Clostridium difficile colitis acute Pressure ulcer of sacral region, stage 4 acute Osteomyelitis of pelvis acut e Pressure ulcer of right ischium acute Pressure ulcer of sacral region, stage 4 acute Paraplegia chronic [facility] Work Phone: Evaluation note* Diagnosis Onset Date Resolution Status Osteomyelitis of pelvis acut e Pressure ulcer of sacral region, stage 4 acute Paraplegia chronic Decubitus ulcer of left ischium, stage 4 resolved 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 MCI (mild cognitive impairment) chronic Paraplegia chronic Thoracic myelopathy chronic Left perineal ischial pressure ulcer acute Osteomyelitis of pelvis acut e Pressure ulcer of sacral region, 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 Left perineal ischial pressure ulcer acute Osteomyelitis of pelvis acut e Pressure ulcer of sacral region, 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 acute Clostridium difficile colitis acute Pressure ulcer of sacral region, stage 4 acute Osteomyelitis of pelvis acut e Pressure ulcer of right ischium acute Pressure ulcer of sacral region, stage 4 acute Paraplegia chronic Osteomyelitis of pelvis acut e Pressure ulcer of right ischium acute Pressure ulcer of sacral region, 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 Left acoustic neuroma acute Large B-cell lymphoma chroni c [facility] Work Phone: Evaluation note* Diagnosis Onset Date Resolution Status 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 MCI (mild cognitive impairment) chronic Paraplegia chronic Thoracic myelopathy chronic Left perineal ischial pressure ulcer acute Osteomyelitis of pelvis acut e Pressure ulcer of sacral region, 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 Left perineal ischial pressure ulcer acute Osteomyelitis of pelvis acut e Pressure ulcer of sacral region, 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 acute Clostridium difficile colitis acute Pressure ulcer of sacral region, stage 4 acute Osteomyelitis of pelvis acut e Pressure ulcer of right ischium acute Pressure ulcer of sacral region, stage 4 acute Paraplegia chronic Left acoustic neuroma acute Large B-cell lymphoma chroni c Osteomyelitis of pelvis acut e Pressure ulcer of right ischium acute Pressure ulcer of sacral region, 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 [facility] Work Phone: Evaluation note* Diagnosis Onset Date Resolution Status Left perineal ischial pressure ulcer acute Osteomyelitis of pelvis acut e Pressure ulcer of sacral region, 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 acute Clostridium difficile colitis acute Pressure ulcer of sacral region, stage 4 acute Osteomyelitis of pelvis acut e Pressure ulcer of right ischium acute Pressure ulcer of sacral region, stage 4 acute Paraplegia chronic Left acoustic neuroma acute Large B-cell lymphoma chroni c Osteomyelitis of pelvis acut e Pressure ulcer of right ischium acute Pressure ulcer of sacral region, 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 MCI (mild cognitive impairment) chronic 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 acut e Pressure ulcer of right ischium acute Pressure ulcer of sacral region, 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 [facility] Work Phone: Evaluation note* Diagnosis Onset Date Resolution Status Clostridium difficile colitis acute Pressure ulcer of sacral region, stage 4 acute Osteomyelitis of pelvis acut e Pressure ulcer of right ischium acute Pressure ulcer of sacral region, stage 4 acute Paraplegia chronic Left acoustic neuroma acute Large B-cell lymphoma chroni c Osteomyelitis of pelvis acut e Pressure ulcer of right ischium acute Pressure ulcer of sacral region, 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 MCI (mild cognitive impairment) chronic 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 acut e Pressure ulcer of right ischium acute Pressure ulcer of sacral region, 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 acut e Pressure ulcer of right ischium acute Pressure ulcer of sacral region, 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 [facility] Work Phone: Evaluation note* Diagnosis Onset Date Resolution Status Left acoustic neuroma acute Large B-cell lymphoma chroni c Osteomyelitis of pelvis acut e Pressure ulcer of right ischium acute Pressure ulcer of sacral region, 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 MCI (mild cognitive impairment) chronic 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 acut e Pressure ulcer of right ischium acute Pressure ulcer of sacral region, 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 acut e Pressure ulcer of right ischium acute Pressure ulcer of sacral region, 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 Decubitus ulcer of left ischium, stage 2 acute Osteomyelitis of pelvis acut e Pressure ulcer of right ischium acute Pressure ulcer of sacral region, 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 [facility] Work Phone: Evaluation note* Diagnosis Onset Date Resolution Status 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 MCI (mild cognitive impairment) chronic 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 acut e Pressure ulcer of right ischium acute Pressure ulcer of sacral region, 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 acut e Pressure ulcer of right ischium acute Pressure ulcer of sacral region, 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 Decubitus ulcer of left ischium, stage 2 acute Osteomyelitis of pelvis acut e Pressure ulcer of right ischium acute Pressure ulcer of sacral region, 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 Decubitus ulcer of left ischium, stage 2 acute Osteomyelitis of pelvis acut e Pressure ulcer of right ischium acute Pressure ulcer of sacral region, 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 [facility] Work Phone: Evaluation note* Diagnosis Onset Date Resolution Status Osteomyelitis of pelvis acut e Pressure ulcer of right ischium acute Pressure ulcer of sacral region, 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 Decubitus ulcer of left ischium, stage 2 acute Osteomyelitis of pelvis acut e Pressure ulcer of right ischium acute Pressure ulcer of sacral region, 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 Decubitus ulcer of left ischium, stage 2 acute Osteomyelitis of pelvis acut e Pressure ulcer of right ischium acute Pressure ulcer of sacral region, 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 acut e Pressure ulcer of sacral region, 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 [facility] Work Phone: Evaluation note* Diagnosis Onset Date Resolution Status Decubitus ulcer of left ischium, stage 2 acute Osteomyelitis of pelvis acut e Pressure ulcer of right ischium acute Pressure ulcer of sacral region, 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 Decubitus ulcer of left ischium, stage 2 acute Osteomyelitis of pelvis acut e Pressure ulcer of right ischium acute Pressure ulcer of sacral region, 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 acut e Pressure ulcer of sacral region, 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 acut e Pressure ulcer of sacral region, 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 [facility] Work Phone: Evaluation note* Diagnosis Onset Date Resolution Status Decubitus ulcer of left ischium, stage 2 acute Osteomyelitis of pelvis acut e Pressure ulcer of right ischium acute Pressure ulcer of sacral region, 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 acut e Pressure ulcer of sacral region, 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 acut e Pressure ulcer of sacral region, 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 acut e Pressure ulcer of sacral region, 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 [facility] Work Phone: Evaluation note* Diagnosis Onset Date Resolution Status Osteomyelitis of pelvis acut e Pressure ulcer of sacral region, 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 acut e Pressure ulcer of sacral region, 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 acut e Pressure ulcer of sacral region, 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 acut e Pressure ulcer of sacral region, 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 [facility] Work Phone: Evaluation note* Diagnosis Onset Date Resolution Status Osteomyelitis of pelvis acut e Pressure ulcer of sacral region, 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 acut e Pressure ulcer of sacral region, 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 acut e Pressure ulcer of sacral region, 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 [facility] Work Phone: Evaluation note* Diagnosis Onset Date Resolution Status Osteomyelitis of pelvis acut e Pressure ulcer of sacral region, 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 acut e Pressure ulcer of sacral region, 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 MCI (mild cognitive impairment) chronic 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 acut e Pressure ulcer of sacral region, 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 acut e Pressure ulcer of sacral region, 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 [facility] Work Phone: Evaluation note* Diagnosis Onset Date Resolution Status Osteomyelitis of pelvis acut e Pressure ulcer of sacral region, 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 MCI (mild cognitive impairment) chronic 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 acut e Pressure ulcer of sacral region, 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 acut e Pressure ulcer of sacral region, 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 acut e Pressure ulcer of sacral region, 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 [facility] Work Phone: Evaluation note* Diagnosis Onset Date Resolution Status 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 MCI (mild cognitive impairment) chronic 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 acut e Pressure ulcer of sacral region, 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 acut e Pressure ulcer of sacral region, 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 acut e Pressure ulcer of sacral region, 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 acut e Pressure ulcer of sacral region, 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 [facility] Work Phone: Evaluation note* Diagnosis Onset Date Resolution Status Osteomyelitis of pelvis acut e Pressure ulcer of sacral region, 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 acut e Pressure ulcer of sacral region, 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 acut e Pressure ulcer of sacral region, 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 Cloudy urine acute Osteomyelitis of pelvis acut e Pressure ulcer of sacral region, stage 4 acute Chronic indwelling Gutierrez 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 [facility] Work Phone: Evaluation note* Diagnosis Onset Date Resolution Status Osteomyelitis of pelvis acut e Pressure ulcer of sacral region, 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 Cloudy urine acute Osteomyelitis of pelvis acut e Pressure ulcer of sacral region, 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 pelvis acut e Pressure ulcer of sacral region, stage 4 acute Chronic indwelling Gutierrez 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 [facility] Work Phone: Evaluation note* Diagnosis Onset Date Resolution Status Cloudy urine acute Osteomyelitis of pelvis acut e Pressure ulcer of sacral region, 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: Hospital Discharge instructions Additional Instructions Chest x-ray negative. Nasal swab positive for influenza B and COVID-19. Take Molnupiravir and Tamiflu as prescribed. Finished a 5-day course. Follow-up your doctor. Return for any worsening symptoms.[facility] Work Phone: Reason for referral (narrative)No reason for referral information availableWMercy [facility] Work Phone: Summary Purpose Family History No Family History Records Found Relationship Condition Age at Onset Recorded Date/T michael father Congestive heart failure Unknown Myocardial infarction Unknown mother Coronary artery disease Unknown Alzheimer's disease Unknown Advance Directives No Advanced Directives Records Found Advance Directive Response Recorded Date/ Time Living Will Yes October 24 2:54pm Power of Ship'S Captain Yes October 24 2:54pm Name of Medical Power of Ship'S Captain KIANNA Palmer KELY (SON & DAUGHTER) October 07, 2021 2:49pm Advance Directive Response Recorded Date/ Time Name of Medical Power of Ship'S Captain TANA (SON & DAUGHTER) October 07, 2021 2:49pm Living Will Yes January 19, 2022 7:24pm Power of Ship'S Captain No January 19 7:24pm Advance Directive Response Recorded Date/ Time Name of Medical Power of Ship'S Captain TANA (SON & DAUGHTER) October 07, 2021 2:49pm Living Will Yes January 20, 2022 12:13am Power of Ship'S Captain No January 20 12:13am Advance Directive Response Recorded Date/ Time Living Will Yes January 20, 2022 12:13am Power of Ship'S Captain No January 20 12:13am Advance Directive Response Recorded Date/ Time Living Will Yes January 19, 2022 11:13pm Power of Ship'S Captain No January 19 11:13pm Advance Directive Response Recorded Date/ Time Name of Medical Power of Ship'S Captain MOLLY CORONEL October 16, 2022 12:17pm Living Will Yes October 16 022 12:17pm Power of Ship'S Captain Yes October 16, 2022 12:17pm Advance Directive Response Recorded Date/ Time Name of Medical Power of Ship'S Captain MOLLY CORONEL October 16, 2022 1:17pm Living Will No January 06, 2023 10:14am Power of Ship'S Captain No January 06 10:14am Advance Directive Response Recorded Date/ Time Living Will No January 06, 2023 10:14am Power of Ship'S Captain No January 06 10:14am Advance Directive Response Recorded Date/ Time Living Will No January 06, 2023 9:14am Power of Ship'S Captain No January 06 9:14am Advance Directive Response Recorded Date/ Time Living Will Yes December 09 025 10:09am Do you have a Healthcare Power of Ship'S Captain? Yes December 09, 2024 10:09am Name of Medical Power of Ship'S Captain SPOUSE December 09, 2024 10:09am Chief Complaint and Reason for Visit Chief Complaint wound wound ACUTE METABOLIC ENCEPHALOPATHY ALTERED MENTAL STATUS ALTERED MENTAL STATUS ACUTE METABOLIC ENCEPHALOPATHY ACUTE METABOLIC ENCEPHALOPATHY ACUTE METABOLIC ENCEPHALOPATHY DISCUSS BRAIN MRI wound wound wound wound CONFUSION/ABNORMAL BRAIN MRI/ ER FU wound wound wound wound wound check stoma Reason for Visit Osteomyelitis of pel vis Pressure ulcer of sacral region, stage 4 Decubitus ulcer of left ischium, stage 4 Paraplegia Pressure ulcer of sacral region, stage 4 Decubitus ulcer of left ischium, stage 4 Decubitus ulcer, infected Encephalopathy acute Metabolic encephalopathy MRI of brain abnormal 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, stage 4 Decubitus ulcer of left ischium, stage 4 Paraplegia Large B-cell lymphoma Left-sided acoustic neuroma MCI (mild cognitive impairment) Paraplegia Thoracic myelopathy Left perineal ischial pressure ulcer 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, stage 4 Large B-cell lymphoma Paraplegia Left perineal ischial pressure ulcer 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, stage 4 Large B-cell lymphoma Paraplegia 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 Chief Complaint wound wound ACUTE METABOLIC ENCEPHALOPATHY ALTERED MENTAL STATUS ALTERED MENTAL STATUS ACUTE METABOLIC ENCEPHALOPATHY ACUTE METABOLIC ENCEPHALOPATHY ACUTE METABOLIC ENCEPHALOPATHY DISCUSS BRAIN MRI wound wound wound wound CONFUSION/ABNORMAL BRAIN MRI/ ER FU wound wound wound wound wound check stoma ACUTE COLITIS ACUTE COLITIS Reason for Visit Osteomyelitis of pel vis Pressure ulcer of sacral region, stage 4 Decubitus ulcer of left ischium, stage 4 Paraplegia Pressure ulcer of sacral region, stage 4 Decubitus ulcer of left ischium, stage 4 Decubitus ulcer, infected Encephalopathy acute Metabolic encephalopathy MRI of brain abnormal 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, stage 4 Decubitus ulcer of left ischium, stage 4 Paraplegia Large B-cell lymphoma Left-sided acoustic neuroma MCI (mild cognitive impairment) Paraplegia Thoracic myelopathy Left perineal ischial pressure ulcer 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, stage 4 Large B-cell lymphoma Paraplegia Left perineal ischial pressure ulcer 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, stage 4 Large B-cell lymphoma Paraplegia 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 Abdominal pain Colitis Diarrhea Pressure ulcer of sacral region, stage 4 Chief Complaint wound wound ACUTE METABOLIC ENCEPHALOPATHY ALTERED MENTAL STATUS ALTERED MENTAL STATUS ACUTE METABOLIC ENCEPHALOPATHY ACUTE METABOLIC ENCEPHALOPATHY ACUTE METABOLIC ENCEPHALOPATHY DISCUSS BRAIN MRI wound wound wound wound CONFUSION/ABNORMAL BRAIN MRI/ ER FU wound wound wound wound wound check stoma ACUTE COLITIS ACUTE COLITIS ACUTE COLITIS ACUTE COLITIS ACUTE COLITIS ACUTE COLITIS Reason for Visit Osteomyelitis of pel vis Pressure ulcer of sacral region, stage 4 Decubitus ulcer of left ischium, stage 4 Paraplegia Pressure ulcer of sacral region, stage 4 Decubitus ulcer of left ischium, stage 4 Decubitus ulcer, infected Encephalopathy acute Metabolic encephalopathy MRI of brain abnormal 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, stage 4 Decubitus ulcer of left ischium, stage 4 Paraplegia Large B-cell lymphoma Left-sided acoustic neuroma MCI (mild cognitive impairment) Paraplegia Thoracic myelopathy Left perineal ischial pressure ulcer 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, stage 4 Large B-cell lymphoma Paraplegia Left perineal ischial pressure ulcer 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, stage 4 Large B-cell lymphoma Paraplegia 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 Abdominal pain Clostridium difficile colitis Colitis Diarrhea Pressure ulcer of sacral region, stage 4 Chief Complaint DISCUSS BRAIN MRI wound wound wound wound CONFUSION/ABNORMAL BRAIN MRI/ ER FU wound wound wound wound wound check stoma ACUTE COLITIS ACUTE COLITIS ACUTE COLITIS ACUTE COLITIS ACUTE COLITIS ACUTE COLITIS wound wound wound Reason for Visit MRI of brain abnorma l 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, stage 4 Paraplegia Decubitus ulcer of left ischium, stage 4 Large B-cell lymphoma Left-sided acoustic neuroma MCI (mild cognitive impairment) Paraplegia Thoracic myelopathy Left perineal ischial pressure ulcer 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, stage 4 Large B-cell lymphoma Paraplegia Left perineal ischial pressure ulcer 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, stage 4 Large B-cell lymphoma Paraplegia 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 Clostridium difficile colitis Pressure ulcer of sacral region, stage 4 Osteomyelitis of pelvis Pressure ulcer of right ischium Pressure ulcer of sacral region, stage 4 Paraplegia Chief Complaint wound wound wound CONFUSION/ABNORMAL BRAIN MRI/ ER FU wound wound wound wound wound check stoma ACUTE COLITIS ACUTE COLITIS ACUTE COLITIS ACUTE COLITIS ACUTE COLITIS ACUTE COLITIS wound wound wound wound wound IAC LESION FOLLOWUP MRI RESTAGING DLBCL Reason for Visit Osteomyelitis of pel vis Pressure ulcer of sacral region, stage 4 Paraplegia Decubitus ulcer of left ischium, stage 4 Large B-cell lymphoma Left-sided acoustic neuroma MCI (mild cognitive impairment) Paraplegia Thoracic myelopathy Left perineal ischial pressure ulcer 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, stage 4 Large B-cell lymphoma Paraplegia Left perineal ischial pressure ulcer 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, stage 4 Large B-cell lymphoma Paraplegia 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 Clostridium difficile colitis Pressure ulcer of sacral region, stage 4 Osteomyelitis of pelvis Pressure ulcer of right ischium Pressure ulcer of sacral region, stage 4 Paraplegia Osteomyelitis of pelvis Pressure ulcer of right ischium Pressure ulcer of sacral region, stage 4 Large B-cell lymphoma Paraplegia Left acoustic neuroma Large B-cell lymphoma Chief Complaint wound CONFUSION/ABNORMAL BRAIN MRI/ ER FU wound wound wound wound wound check stoma ACUTE COLITIS ACUTE COLITIS ACUTE COLITIS ACUTE COLITIS ACUTE COLITIS ACUTE COLITIS wound wound wound wound IAC LESION FOLLOWUP MRI RESTAGING DLBCL wound wound Reason for Visit Large B-cell lymphom a Left-sided acoustic neuroma MCI (mild cognitive impairment) Paraplegia Thoracic myelopathy Left perineal ischial pressure ulcer 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, stage 4 Large B-cell lymphoma Paraplegia Left perineal ischial pressure ulcer 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, stage 4 Large B-cell lymphoma Paraplegia 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 Clostridium difficile colitis Pressure ulcer of sacral region, stage 4 Osteomyelitis of pelvis Pressure ulcer of right ischium Pressure ulcer of sacral region, stage 4 Paraplegia Left acoustic neuroma Large B-cell lymphoma Osteomyelitis of pelvis Pressure ulcer of right ischium Pressure ulcer of sacral region, stage 4 Large B-cell lymphoma Paraplegia Chief Complaint wound wound wound check stoma ACUTE COLITIS ACUTE COLITIS ACUTE COLITIS ACUTE COLITIS ACUTE COLITIS ACUTE COLITIS wound wound wound wound IAC LESION FOLLOWUP MRI RESTAGING DLBCL wound wound 3 Month f/u wound wound Reason for Visit Left perineal ischia l pressure ulcer 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, stage 4 Large B-cell lymphoma Paraplegia 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 Clostridium difficile colitis Pressure ulcer of sacral region, stage 4 Osteomyelitis of pelvis Pressure ulcer of right ischium Pressure ulcer of sacral region, stage 4 Paraplegia Left acoustic neuroma Large B-cell lymphoma Osteomyelitis of pelvis Pressure ulcer of right ischium Pressure ulcer of sacral region, stage 4 Large B-cell lymphoma Paraplegia Large B-cell lymphoma Left-sided acoustic neuroma MCI (mild cognitive impairment) Paraplegia Thoracic myelopathy Osteomyelitis of pelvis Pressure ulcer of right ischium Pressure ulcer of sacral region, stage 4 Large B-cell lymphoma Paraplegia Chief Complaint ACUTE COLITIS ACUTE COLITIS ACUTE COLITIS wound wound wound wound IAC LESION FOLLOWUP MRI RESTAGING DLBCL wound wound 3 Month f/u wound wound wound wound Reason for Visit Clostridium difficil e colitis Pressure ulcer of sacral region, stage 4 Osteomyelitis of pelvis Pressure ulcer of right ischium Pressure ulcer of sacral region, stage 4 Paraplegia Left acoustic neuroma Large B-cell lymphoma Osteomyelitis of pelvis Pressure ulcer of right ischium Pressure ulcer of sacral region, stage 4 Large B-cell lymphoma Paraplegia Large B-cell lymphoma Left-sided acoustic neuroma MCI (mild cognitive impairment) Paraplegia Thoracic myelopathy Osteomyelitis of pelvis Pressure ulcer of right ischium Pressure ulcer of sacral region, stage 4 Large B-cell lymphoma Paraplegia Osteomyelitis of pelvis Pressure ulcer of right ischium Pressure ulcer of sacral region, stage 4 Large B-cell lymphoma Paraplegia Chief Complaint wound IAC LESION FOLLOWUP MRI RESTAGING DLBCL wound wound 3 Month f/u wound wound wound wound wound wound wound Reason for Visit Left acoustic neurom a Large B-cell lymphoma Osteomyelitis of pelvis Pressure ulcer of right ischium Pressure ulcer of sacral region, stage 4 Large B-cell lymphoma Paraplegia Large B-cell lymphoma Left-sided acoustic neuroma MCI (mild cognitive impairment) Paraplegia Thoracic myelopathy Osteomyelitis of pelvis Pressure ulcer of right ischium Pressure ulcer of sacral region, stage 4 Large B-cell lymphoma Paraplegia Osteomyelitis of pelvis Pressure ulcer of right ischium Pressure ulcer of sacral region, stage 4 Large B-cell lymphoma Paraplegia Decubitus ulcer of left ischium, stage 2 Osteomyelitis of pelvis Pressure ulcer of right ischium Pressure ulcer of sacral region, stage 4 Large B-cell lymphoma Paraplegia Chief Complaint 3 Month f/u wound wound wound wound wound wound wound wound wound Reason for Visit Large B-cell lymphom a Left-sided acoustic neuroma MCI (mild cognitive impairment) Paraplegia Thoracic myelopathy Osteomyelitis of pelvis Pressure ulcer of right ischium Pressure ulcer of sacral region, stage 4 Large B-cell lymphoma Paraplegia Osteomyelitis of pelvis Pressure ulcer of right ischium Pressure ulcer of sacral region, stage 4 Large B-cell lymphoma Paraplegia Decubitus ulcer of left ischium, stage 2 Osteomyelitis of pelvis Pressure ulcer of right ischium Pressure ulcer of sacral region, stage 4 Large B-cell lymphoma Paraplegia Decubitus ulcer of left ischium, stage 2 Osteomyelitis of pelvis Pressure ulcer of right ischium Pressure ulcer of sacral region, stage 4 Large B-cell lymphoma Paraplegia Chief Complaint wound wound wound wound wound wound wound wound wound wound Reason for Visit Osteomyelitis of pel vis Pressure ulcer of right ischium Pressure ulcer of sacral region, stage 4 Large B-cell lymphoma Paraplegia Decubitus ulcer of left ischium, stage 2 Osteomyelitis of pelvis Pressure ulcer of right ischium Pressure ulcer of sacral region, stage 4 Large B-cell lymphoma Paraplegia Decubitus ulcer of left ischium, stage 2 Osteomyelitis of pelvis Pressure ulcer of right ischium Pressure ulcer of sacral region, stage 4 Large B-cell lymphoma 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, stage 4 Large B-cell lymphoma Paraplegia Chief Complaint wound wound wound wound wound wound wound wound wound Reason for Visit Decubitus ulcer of l eft ischium, stage 2 Osteomyelitis of pelvis Pressure ulcer of right ischium Pressure ulcer of sacral region, stage 4 Large B-cell lymphoma Paraplegia Decubitus ulcer of left ischium, stage 2 Osteomyelitis of pelvis Pressure ulcer of right ischium Pressure ulcer of sacral region, stage 4 Large B-cell lymphoma 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, stage 4 Large B-cell lymphoma 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, stage 4 Large B-cell lymphoma Paraplegia Chief Complaint wound wound wound wound wound wound wound wound wound FEVER Reason for Visit Decubitus ulcer of l eft ischium, stage 2 Osteomyelitis of pelvis Pressure ulcer of right ischium Pressure ulcer of sacral region, stage 4 Large B-cell lymphoma 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, stage 4 Large B-cell lymphoma 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, stage 4 Large B-cell lymphoma 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, stage 4 Large B-cell lymphoma Paraplegia Chief Complaint wound wound wound wound wound wound FEVER wound wound Reason for Visit Osteomyelitis of pel vis Pressure ulcer of sacral region, stage 4 Large B-cell lymphoma 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, stage 4 Large B-cell lymphoma 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, stage 4 Large B-cell lymphoma 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, stage 4 Large B-cell lymphoma Paraplegia Chief Complaint wound wound FEVER wound wound wound wound wound HEADACHE Reason for Visit Osteomyelitis of pel vis Pressure ulcer of sacral region, stage 4 Large B-cell lymphoma 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, stage 4 Large B-cell lymphoma 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, stage 4 Large B-cell lymphoma Paraplegia Chief Complaint wound wound wound wound wound HEADACHE wound wound URINARY RETENTION Reason for Visit Osteomyelitis of pel vis Pressure ulcer of sacral region, stage 4 Large B-cell lymphoma 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, stage 4 Large B-cell lymphoma 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, stage 4 Large B-cell lymphoma Paraplegia Chief Complaint wound wound HEADACHE wound wound URINARY RETENTION wound wound LEDT ACOUSTIC NEUROMA Reason for Visit Osteomyelitis of pel vis Pressure ulcer of sacral region, stage 4 Large B-cell lymphoma 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, stage 4 Large B-cell lymphoma 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, stage 4 Large B-cell lymphoma Paraplegia Chief Complaint wound wound URINARY RETENTION wound wound LEDT ACOUSTIC NEUROMA wound 1 Y FU wound wound wound wound Reason for Visit Osteomyelitis of pel vis Pressure ulcer of sacral region, stage 4 Large B-cell lymphoma 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, stage 4 Large B-cell lymphoma Paraplegia Large B-cell lymphoma Left-sided acoustic neuroma MCI (mild cognitive impairment) Paraplegia 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, stage 4 Large B-cell lymphoma 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, stage 4 Large B-cell lymphoma Paraplegia Chief Complaint wound wound LEDT ACOUSTIC NEUROMA wound 1 Y FU wound wound wound wound wound wound Reason for Visit Osteomyelitis of pel vis Pressure ulcer of sacral region, stage 4 Large B-cell lymphoma Paraplegia Large B-cell lymphoma Left-sided acoustic neuroma MCI (mild cognitive impairment) Paraplegia 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, stage 4 Large B-cell lymphoma 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, stage 4 Large B-cell lymphoma 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, stage 4 Large B-cell lymphoma Paraplegia Chief Complaint wound 1 Y FU wound wound wound wound wound wound wound wound Reason for Visit Large B-cell lymphom a Left-sided acoustic neuroma MCI (mild cognitive impairment) Paraplegia 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, stage 4 Large B-cell lymphoma 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, stage 4 Large B-cell lymphoma 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, stage 4 Large B-cell lymphoma 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, stage 4 Large B-cell lymphoma Paraplegia Chief Complaint wound wound wound wound wound wound wound wound Reason for Visit Osteomyelitis of pel vis Pressure ulcer of sacral region, stage 4 Large B-cell lymphoma 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, stage 4 Large B-cell lymphoma 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, stage 4 Large B-cell lymphoma Paraplegia Cloudy urine 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, stage 4 Chronic indwelling Gutierrez catheter Large B-cell lymphoma Paraplegia Chief Complaint wound wound wound wound wound wound wound wound Reason for Visit Osteomyelitis of pel vis Pressure ulcer of sacral region, stage 4 Large B-cell lymphoma Paraplegia Cloudy urine 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, stage 4 Chronic indwelling Gutierrez catheter Large B-cell lymphoma 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, stage 4 Chronic indwelling Gutierrez catheter Large B-cell lymphoma Paraplegia Chief Complaint wound wound wound wound wound wound wound wound wound wound Reason for Visit Cloudy urine 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, stage 4 Chronic indwelling Gutierrez catheter Large B-cell lymphoma 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, stage 4 Chronic indwelling Gutierrez catheter Large B-cell lymphoma 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, stage 4 Chronic indwelling Gutierrez catheter Large B-cell lymphoma 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, stage 4 Chronic indwelling Gutierrez catheter Large B-cell lymphoma Paraplegia Chief Complaint Admit Date wound November 04, 2024 2 :27pm wound November 18, 2024 1 :00pm wound November 18, 2024 4 :41pm wound December 16, 2024 1:05pm wound December 16, 2024 2:55pm Cysto,Litholapaxy,Laser December 23, 2024 7:11am wound December 30, 2024 1:0 7pm wound December 30, 2024 3:2 4pm Reason for Visit Admit Date 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, stage 3 November 18, 2024 1:00pm Chronic indwelling Gutierrez catheter Januar 2024 1:00pm Large B-cell lymphoma November 18, 2024 1:00pm Paraplegia November 18, 2024 1 :00pm 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, stage 3 December 16, 2024 1:05pm Chronic indwelling Gutierrez catheter Februa 2024 1:05pm Large B-cell lymphoma December 16 1:05pm Paraplegia December 16, 2024 1:05pm 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, stage 3 December 30, 2024 1:07pm Chronic indwelling Gutierrez catheter December 30, 2024 1:07pm Large B-cell lymphoma December 30, 2024 1 :07pm Paraplegia December 30, 2024 1:0 7pm Chief Complaint Admit Date wound December 16, 2024 1:05pm wound December 16, 2024 2:55pm Cysto,Litholapaxy,Laser December 23, 2024 7:11am wound December 30, 2024 1:0 7pm wound December 30, 2024 3:2 4pm wound January 20, 2025 3:16 pm wound February 10, 2025 1:1 5pm wound February 10, 2025 3:5 8pm wound February 24, 2025 12:39p m wound March 03, 2025 12:27 pm wound March 17, 2025 1:35p m wound March 19, 2025 12:39 pm Reason for Visit Admit Date 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, stage 3 December 16, 2024 1:05pm Chronic indwelling Gutierrez catheter Februa 2024 1:05pm Large B-cell lymphoma December 16 1:05pm Paraplegia December 16, 2024 1:05pm 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, stage 3 December 30, 2024 1:07pm Chronic indwelling Gutierrez catheter December 30, 2024 1:07pm Large B-cell lymphoma December 30, 2024 1 :07pm Paraplegia December 30, 2024 1:0 7pm Afib February 10, 2025 1:1 5pm Chronic anticoagulation February 10, 2025 1:15pm Debility February 10, 2025 1:1 5pm 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, stage 3 February 10, 2025 1:15pm Diffuse large B-cell lymphoma January 1:15pm Myocardial infarct February 10, 2025 1:1 5pm Non-smoker February 10, 2025 1:1 5pm Chronic indwelling Gutierrez catheter February 10, 2025 1:15pm Hypertension February 10, 2025 1:1 5pm Large B-cell lymphoma February 10, 2025 1 :15pm Paraplegia February 10, 2025 1:1 5pm Afib March 17, 2025 1:35p m Chronic anticoagulation March 17, 2025 1 :35pm Debility March 17, 2025 1:35p m 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, stage 3 March 17, 2025 1:35pm Diffuse large B-cell lymphoma March 17, 2025 1:35pm Myocardial infarct March 17, 2025 1:35p m Non-smoker March 17, 2025 1:35p m Chronic indwelling Gutierrez catheter March 172024 1:35pm Hypertension March 17, 2025 1:35p m Large B-cell lymphoma March 17, 2025 1:3 5pm Paraplegia March 17, 2025 1:35p m Chief Complaint Admit Date Cysto,Litholapaxy,Laser December 23, 2024 7:11am wound December 30, 2024 1:0 7pm wound December 30, 2024 3:2 4pm wound January 20, 2025 3:16 pm wound February 10, 2025 1:1 5pm wound February 10, 2025 3:5 8pm wound February 24, 2025 12:39p m wound March 03, 2025 12:27 pm wound March 17, 2025 12:39 pm wound March 17, 2025 1:35p m wound April 07, 2025 4:01 pm wound April 14, 2025 1:30 pm wound April 16, 2025 10:3 8am Reason for Visit Admit Date 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, stage 3 December 30, 2024 1:07pm Chronic indwelling Gutierrez catheter December 30, 2024 1:07pm Large B-cell lymphoma December 30, 2024 1 :07pm Paraplegia December 30, 2024 1:0 7pm Afib February 10, 2025 1:1 5pm Chronic anticoagulation February 10, 2025 1:15pm Debility February 10, 2025 1:1 5pm 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, stage 3 February 10, 2025 1:15pm Diffuse large B-cell lymphoma January 1:15pm Myocardial infarct February 10, 2025 1:1 5pm Non-smoker February 10, 2025 1:1 5pm Chronic indwelling Gutierrez catheter February 10, 2025 1:15pm Hypertension February 10, 2025 1:1 5pm Large B-cell lymphoma February 10, 2025 1 :15pm Paraplegia February 10, 2025 1:1 5pm Afib March 17, 2025 1:35p m Chronic anticoagulation March 17, 2025 1 :35pm Debility March 17, 2025 1:35p m 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, stage 3 March 17, 2025 1:35pm Diffuse large B-cell lymphoma March 17, 2025 1:35pm Myocardial infarct March 17, 2025 1:35p m Non-smoker March 17, 2025 1:35p m Chronic indwelling Gutierrez catheter March 172024 1:35pm Hypertension March 17, 2025 1:35p m Large B-cell lymphoma March 17, 2025 1:3 5pm Paraplegia March 17, 2025 1:35p m Afib April 14, 2025 1:30 pm Chronic anticoagulation April 14, 2025 1:30pm Debility April 14, 2025 1:30 pm 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, stage 3 April 14, 2025 1:30pm Diffuse large B-cell lymphoma April 14, 2025 1:30pm Myocardial infarct April 14, 2025 1:30 pm Non-smoker April 14, 2025 1:30 pm Pressure ulcer of ischium, stage 3 April 14, 2025 1:30pm Chronic indwelling Gutierrez catheter March 222024 1:30pm Hypertension April 14, 2025 1:30 pm Large B-cell lymphoma April 14, 2025 1: 30pm Paraplegia April 14, 2025 1:30 pm Chief Complaint Admit Date wound January 20, 2025 3:16 pm wound February 10, 2025 1:1 5pm wound February 10, 2025 3:5 8pm wound February 24, 2025 12:39p m wound March 03, 2025 12:27 pm wound March 17, 2025 12:39 pm wound March 17, 2025 1:35p m wound April 07, 2025 4:01 pm wound April 14, 2025 10:3 8am wound April 14, 2025 1:30 pm wound April 27, 2025 5:22p m wound May 18, 2025 11:1 5am wound May 19, 2025 8:11 pm Reason for Visit Admit Date Afib February 10, 2025 1:1 5pm Chronic anticoagulation February 10, 2025 1:15pm Debility February 10, 2025 1:1 5pm 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, stage 3 February 10, 2025 1:15pm Diffuse large B-cell lymphoma January 1:15pm Myocardial infarct February 10, 2025 1:1 5pm Non-smoker February 10, 2025 1:1 5pm Chronic indwelling Gutierrez catheter February 10, 2025 1:15pm Hypertension February 10, 2025 1:1 5pm Large B-cell lymphoma February 10, 2025 1 :15pm Paraplegia February 10, 2025 1:1 5pm Afib March 17, 2025 1:35p m Chronic anticoagulation March 17, 2025 1 :35pm Debility March 17, 2025 1:35p m 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, stage 3 March 17, 2025 1:35pm Diffuse large B-cell lymphoma March 17, 2025 1:35pm Myocardial infarct March 17, 2025 1:35p m Non-smoker March 17, 2025 1:35p m Chronic indwelling Gutierrez catheter March 172024 1:35pm Hypertension March 17, 2025 1:35p m Large B-cell lymphoma March 17, 2025 1:3 5pm Paraplegia March 17, 2025 1:35p m Afib April 14, 2025 1:30 pm Chronic anticoagulation April 14, 2025 1:30pm Debility April 14, 2025 1:30 pm 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, stage 3 April 14, 2025 1:30pm Diffuse large B-cell lymphoma April 14, 2025 1:30pm Myocardial infarct April 14, 2025 1:30 pm Non-smoker April 14, 2025 1:30 pm Pressure ulcer of ischium, stage 3 April 14, 2025 1:30pm Chronic indwelling Gutierrez catheter March 222024 1:30pm Hypertension April 14, 2025 1:30 pm Large B-cell lymphoma April 14, 2025 1: 30pm Paraplegia April 14, 2025 1:30 pm Afib May 18, 2025 11:1 5am Chronic anticoagulation May 18, 2025 11:15am Debility May 18, 2025 11:1 5am 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, stage 3 May 18, 2025 11:15am Diffuse large B-cell lymphoma May 18, 2025 11:15am Myocardial infarct May 18, 2025 11:1 5am Non-smoker May 18, 2025 11:1 5am Pressure ulcer of ischium, stage 3 May 18, 2025 11:15am Chronic indwelling Gutierrez catheter April [id number] 11:15am Hypertension May 18, 2025 11:1 5am Large B-cell lymphoma May 18, 2025 11 :15am Paraplegia May 18, 2025 11:1 5am Additional Source Comments INFORMATION SOURCE (unrecogn ized section and content) DATE CREATED AUTHOR 05/08/2020 [facility] DATE CREATED AUTHOR AUTHOR'S ORGANIZ ATION 05/12/2021 [facility] DATE CREATED AUTHOR AUTHOR'S ORGANIZ ATION 06/17/2024 [facility] ([place]) DATE CREATED AUTHOR AUTHOR'S ORGANIZ ATION 05/17/2025 [facility] DATE CREATED AUTHOR AUTHOR'S ORGANIZ ATION 07/31/2025 [facility] DATE CREATED AUTHOR AUTHOR'S ORGANIZ ATION 08/11/2025 [facility] Goals (unrecognized section and content) Goals may be documented in a n alternate sectionGoals may be documented in an alternate sectionGoals may be documented in an alternate sectionGoals may be documented in an alternate sectionGoals may be documented in an alternate sectionGoals may be documented in an alternate sectionGoals may be documented in an alternate sectionGoals may be documented in an alternate sectionGoals may be documented in an alternate sectionGoals may be documented in an alternate sectionGoals may be documented in an alternate sectionGoals may be documented in an alternate sectionGoals may be documented in an alternate sectionGoals may be documented in an alternate sectionGoals may be documented in an alternate sectionGoals may be documented in an alternate sectionGoals may be documented in an alternate sectionGoals may be documented in an alternate sectionGoals may be documented in an alternate sectionGoals may be documented in an alternate sectionGoals may be documented in an alternate sectionGoals may be documented in an alternate sectionGoals may be documented in an alternate sectionGoals may be documented in an alternate sectionGoals may be documented in an alternate section Care Teams (unrecognized sec tion and content) Team Status: Active Member Role Status Dates Dr. Jnenie Mcintyre MD Primary Care Provider Active Team Status: Inactive Member Role Status Dates Dr. Jennie Mcintyre MD Primary Care Provider Active Start: December 16, 2024 End: December 18, 2024 Dr. Jennie Mcintyre MD Referring Provider Active Start: December 16, 2024 End: December 18, 2024 Barbra Esparza RECORDS AND INFORMATION MANAGER, RECORDS AND INFORMATION MANAGER-C Attending Provider Active Start: December 16, 2024 End: December 18, 2024 Team Status: Active Member Role Status Dates Dr. Jennie Mcintyre MD Primary Care Provider Active Start: December 16, 2024 Barbra Esparza RECORDS AND INFORMATION MANAGER, RECORDS AND INFORMATION MANAGER-C Attending Provider Active Start: December 16, 2024 Barbra Esparza RECORDS AND INFORMATION MANAGER, RECORDS AND INFORMATION MANAGER-C Referring Provider Active Start: December 16, 2024 Barbra Esparza RECORDS AND INFORMATION MANAGER, RECORDS AND INFORMATION MANAGER-C Other Provider Active Start: December 16, 2024 Team Status: Inactive Member Role Status Dates Dr. Jennie Mcintyre MD Primary Care Provider Active Start: December 23, 2024 End: December 23, 2024 Dr. Yomi Rose MD Attending Provider Active Start: December 23, 2024 End: December 23, 2024 Dr. Yomi Rose MD Referring Provider Active Start: December 23, 2024 End: December 23, 2024 Team Status: Inactive Member Role Status Dates Dr. Jennie Mcintyre MD Primary Care Provider Active Start: December 30, 2024 End: January 18, 2025 Dr. Jennie Mcintyre MD Referring Provider Active Start: December 30, 2024 End: January 18, 2025 Barbra Esparza RECORDS AND INFORMATION MANAGER, RECORDS AND INFORMATION MANAGER-C Attending Provider Active Start: December 30, 2024 End: January 18, 2025 Team Status: Active Member Role Status Dates Dr. Jennie Mcintyre MD Primary Care Provider Active Start: December 30, 2024 Barbra Esparza RECORDS AND INFORMATION MANAGER, RECORDS AND INFORMATION MANAGER-C Attending Provider Active Start: December 30, 2024 Barbra Esparza RECORDS AND INFORMATION MANAGER, RECORDS AND INFORMATION MANAGER-C Referring Provider Active Start: December 30, 2024 Barbra Esparza RECORDS AND INFORMATION MANAGER, RECORDS AND INFORMATION MANAGER-C Other Provider Active Start: December 30, 2024 Team Status: Active Member Role Status Dates Dr. Jennie Mcintyre MD Primary Care Provider Active Start: January 20, 2025 Dr. Oscar Steele MD Other Provider Active Sta rt: January 20, 2025 Barbra Esparza RECORDS AND INFORMATION MANAGER, RECORDS AND INFORMATION MANAGER-C Attending Provider Active Start: January 20, 2025 Barbra Esparza RECORDS AND INFORMATION MANAGER, RECORDS AND INFORMATION MANAGER-C Referring Provider Active Start: January 20, 2025 Team Status: Inactive Member Role Status Dates Dr. Jennie Mcintyre MD Primary Care Provider Active Start: February 10, 2025 End: February 17, 2025 Dr. Jennie Mcintyre MD Referring Provider Active Start: February 10, 2025 End: February 17, 2025 Dr. Oscar Steele MD Attending Provider Active Start: February 10, 2025 End: February 17, 2025 Team Status: Active Member Role Status Dates Dr. Jennie Mcintyre MD Primary Care Provider Active Start: February 10, 2025 Dr. Jennie Mcintyre MD Referring Provider Active Start: February 10, 2025 Dr. Oscar Steele MD Attending Provider Active Start: February 10, 2025 Dr. Oscar Steele MD Other Provider Active Sta rt: February 10, 2025 Team Status: Active Member Role Status Dates Dr. Jennie Mcintyre MD Primary Care Provider Active Start: February 24, 2025 Dr. Jennie Mcintyre MD Referring Provider Active Start: February 24, 2025 Dr. Oscar Steele MD Attending Provider Active Start: February 24, 2025 Dr. Oscar Steele MD Other Provider Active Sta rt: February 24, 2025 Team Status: Active Member Role Status Dates Dr. Jennie Mcintyre MD Primary Care Provider Active Start: March 03, 2025 Dr. Jennie Mcintyre MD Referring Provider Active Start: March 03, 2025 Dr. Oscar Steele MD Attending Provider Active Start: March 03, 2025 Dr. Oscar Steele MD Other Provider Active Sta rt: March 03, 2025 Team Status: Inactive Member Role Status Dates Dr. Jennie Mcintyre MD Primary Care Provider Active Start: March 17, 2025 End: March 20, 2025 Dr. Jennie Mcintyre MD Referring Provider Active Start: March 17, 2025 End: March 20, 2025 Dr. Oscar Steele MD Attending Provider Active Start: March 17, 2025 End: March 20, 2025 Team Status: Active Member Role Status Dates Dr. Jennie Mcintyre MD Primary Care Provider Active Start: March 19, 2025 Dr. Jennie Mcintyre MD Referring Provider Active Start: March 19, 2025 Dr. Oscar Steele MD Attending Provider Active Start: March 19, 2025 Dr. Oscar Steele MD Other Provider Active Sta rt: March 19, 2025 Team Status: Active Member Role Status Dates Barbra Esparza RECORDS AND INFORMATION MANAGER, RECORDS AND INFORMATION MANAGER-C Attending Pro vider, Referring Provider, Other Provider Active Dr. Jennie Mcintyre MD Primary Care Provider Active Team Status: Inactive Member Role Status Dates Barbra Esparza RECORDS AND INFORMATION MANAGER, RECORDS AND INFORMATION MANAGER-C Attending Provider Active Dr. Jennie Mcintyre MD Primary Care Provider Active Team Status: Inactive Member Role Status Dates Dr. Jennie Mcintyre MD Primary Care Provider, Refer ring Provider Active Dr. Jake Johnson MD Attending Provider Active Team Status: Inactive Member Role Status Dates Dr. Jennie Mcintyre MD Primary Care Provider Active Dr. Jake Johnson MD Attending Provider, Referring Provider Active Team Status: Inactive Member Role Status Dates Dr. Jennie Mcintyre MD Primary Care Provider Active Dr. Yomi Rose MD Attending Provider, Referr ing Provider Active Team Status: Inactive Member Role Status Dates Dr. Jennie Mcintyre MD Primary Care Provider Active Dr. Jose Daniel Lagos MD Attending Provider, Emergency Provider Active Team Status: Inactive Member Role Status Dates Dr. Jennie Mcintyre MD Primary Care Provider Active Dr. Nick Bran DO Emergency Provider Active Team Status: Active Member Role Status Dates Barbra Esparza RECORDS AND INFORMATION MANAGER, RECORDS AND INFORMATION MANAGER-C Attending Provider Active Dr. Jennie Mcintyre MD Primary Care Provider Active Team Status: Inactive Member Role Status Dates Dr. Jennie Mcintyre MD Primary Care Provider Active Dr. Nick Bran DO Attending Provider, Emergency Provide r Active Team Status: Active Member Role Status Dates Dr. Jennie Mcintyre MD Primary Care Provider Active Dr. Jake Johnson MD Attending Provider, Referring Provider Active Team Status: Active Member Role Status Dates Barbra Esparza RECORDS AND INFORMATION MANAGER, RECORDS AND INFORMATION MANAGER-C Other Provider Active Dr. Jennie Mcintyre MD Primary Care Provider Active Dr. Brice Maciel MD Attending Provider, Referring P alonso Active Team Status: Active Member Role Status Dates Barbra Esparza RECORDS AND INFORMATION MANAGER, RECORDS AND INFORMATION MANAGER-C Other Provider Active Dr. Jennie Mcintyre MD Primary Care Provider Active Dr. Brice Maciel MD Attending Provider Active Team Status: Active Member Role Status Dates Dr. Jennie Mcintyre MD Primary Care Provider Active Start: November 04, 2024 Dr. Jennie Mcintyre MD Referring Provider Active Start: November 04, 2024 Barbra Esparza RECORDS AND INFORMATION MANAGER, RECORDS AND INFORMATION MANAGER-C Attending Provider Active Start: November 04, 2024 Barbra Martiniell RECORDS AND INFORMATION MANAGER, RECORDS AND INFORMATION MANAGER-C Other Provider Active Start: November 04, 2024 Team Status: Inactive Member Role Status Dates Dr. Jennie Mcintyre MD Primary Care Provider Active Start: November 18, 2024 End: November 20, 2024 Dr. Jennie Mcintyre MD Referring Provider Active Start: November 18, 2024 End: November 20, 2024 Barbra Esparza RECORDS AND INFORMATION MANAGER, RECORDS AND INFORMATION MANAGER-C Attending Provider Active Start: November 18, 2024 End: November 20, 2024 Team Status: Active Member Role Status Dates Dr. Jennie Mcintyre MD Primary Care Provider Active Start: November 18, 2024 Barbra Martiniell RECORDS AND INFORMATION MANAGER, RECORDS AND INFORMATION MANAGER-C Attending Provider Active Start: November 18, 2024 Barbra Whaleyndell RECORDS AND INFORMATION MANAGER, RECORDS AND INFORMATION MANAGER-C Referring Provider Active Start: November 18, 2024 Barbra Whaleyndell RECORDS AND INFORMATION MANAGER, RECORDS AND INFORMATION MANAGER-C Other Provider Active Start: November 18, 2024 Team Status: Active Member Role Status Dates Dr. Jennie Mcintyre MD Primary Care Provider Active Start: December 30, 2024 Dr. Jennie Mcintyre MD Referring Provider Active Start: December 30, 2024 Barbra Whaleyndell RECORDS AND INFORMATION MANAGER, RECORDS AND INFORMATION MANAGER-C Attending Provider Active Start: December 30, 2024 Barbra Esparza RECORDS AND INFORMATION MANAGER, RECORDS AND INFORMATION MANAGER-C Other Provider Active Start: December 30, 2024 Team Status: Active Member Role/Relationship Status Dates Dr. Jennie Mcintyre MD Primary Care Provider Active Team Status: Inactive Member Role/Relationship Status Dates Dr. Jennie Mcintyre MD Primary Care Provider Active Start: December 23, 2024 End: December 23, 2024 Dr. Yomi Rose MD Attending Provider Active Start: December 23, 2024 End: December 23, 2024 Dr. Yomi Rose MD Referring Provider Active Start: December 23, 2024 End: December 23, 2024 Team Status: Inactive Member Role/Relationship Status Dates Dr. Jennie Mcintyre MD Primary Care Provider Active Start: December 30, 2024 End: January 18, 2025 Dr. Jennie Mcintyre MD Referring Provider Active Start: December 30, 2024 End: January 18, 2025 Barbrashellie Esparza RECORDS AND INFORMATION MANAGER, RECORDS AND INFORMATION MANAGER-C Attending Provider Active Start: December 30, 2024 End: January 18, 2025 Team Status: Active Member Role/Relationship Status Dates Dr. Jennie Mcintyre MD Primary Care Provider Active Start: December 30, 2024 Barbrashellie Esparza RECORDS AND INFORMATION MANAGER, RECORDS AND INFORMATION MANAGER-C Attending Provider Active Start: December 30, 2024 Barbra Esparza RECORDS AND INFORMATION MANAGER, RECORDS AND INFORMATION MANAGER-C Referring Provider Active Start: December 30, 2024 Barbra Esparza RECORDS AND INFORMATION MANAGER, RECORDS AND INFORMATION MANAGER-C Other Provider Active Start: December 30, 2024 Team Status: Active Member Role/Relationship Status Dates Dr. Jennie Mcintyre MD Primary Care Provider Active Start: January 20, 2025 Dr. Oscar Steele MD Other Provider Active Sta rt: January 20, 2025 Barbra Esparza RECORDS AND INFORMATION MANAGER, RECORDS AND INFORMATION MANAGER-C Attending Provider Active Start: January 20, 2025 Barbrashellie Esparza RECORDS AND INFORMATION MANAGER, RECORDS AND INFORMATION MANAGER-C Referring Provider Active Start: January 20, 2025 Team Status: Inactive Member Role/Relationship Status Dates Dr. Jennie Mcintyre MD Primary Care Provider Active Start: February 10, 2025 End: February 17, 2025 Dr. Jennie Mcintyre MD Referring Provider Active Start: February 10, 2025 End: February 17, 2025 Dr. Oscar Steele MD Attending Provider Active Start: February 10, 2025 End: February 17, 2025 Team Status: Active Member Role/Relationship Status Dates Dr. Jennie Mcintyre MD Primary Care Provider Active Start: February 10, 2025 Dr. Jennie Mcintyre MD Referring Provider Active Start: February 10, 2025 Dr. Oscar Steele MD Attending Provider Active Start: February 10, 2025 Dr. Oscar Steele MD Other Provider Active Sta rt: February 10, 2025 Team Status: Active Member Role/Relationship Status Dates Dr. Jennie Mcintyre MD Primary Care Provider Active Start: February 24, 2025 Dr. Jennie Mcintyre MD Referring Provider Active Start: February 24, 2025 Dr. Oscar Steele MD Attending Provider Active Start: February 24, 2025 Dr. Oscar Steele MD Other Provider Active Sta rt: February 24, 2025 Team Status: Active Member Role/Relationship Status Dates Dr. Jennie Mcintyre MD Primary Care Provider Active Start: March 03, 2025 Dr. Jennie Mcintyre MD Referring Provider Active Start: March 03, 2025 Dr. Oscar Steele MD Attending Provider Active Start: March 03, 2025 Dr. Oscar Steele MD Other Provider Active Sta rt: March 03, 2025 Team Status: Active Member Role/Relationship Status Dates Dr. Jennie Mcintyre MD Primary Care Provider Active Start: March 17, 2025 Dr. Jennie Mcintyre MD Referring Provider Active Start: March 17, 2025 Dr. Oscar Steele MD Attending Provider Active Start: March 17, 2025 Dr. Oscar Steele MD Other Provider Active Sta rt: March 17, 2025 Team Status: Inactive Member Role/Relationship Status Dates Dr. Jennie Mcintyre MD Primary Care Provider Active Start: March 17, 2025 End: March 20, 2025 Dr. Jennie Mcintyre MD Referring Provider Active Start: March 17, 2025 End: March 20, 2025 Dr. Oscar Steele MD Attending Provider Active Start: March 17, 2025 End: March 20, 2025 Team Status: Active Member Role/Relationship Status Dates Dr. Jennie Mcintyre MD Primary Care Provider Active Start: April 07, 2025 Dr. Jennie Mcintyre MD Referring Provider Active Start: April 07, 2025 Dr. Oscar Steele MD Attending Provider Active Start: April 07, 2025 Dr. Oscar Steele MD Other Provider Active Sta rt: April 07, 2025 Team Status: Inactive Member Role/Relationship Status Dates Dr. Jennie Mcintyre MD Primary Care Provider Active Start: April 14, 2025 End: April 19, 2025 Dr. Jennie Mcintyre MD Referring Provider Active Start: April 14, 2025 End: April 19, 2025 Dr. sOcar Steele MD Attending Provider Active Start: April 14, 2025 End: April 19, 2025 Team Status: Active Member Role/Relationship Status Dates Dr. Jennie Mcintyre MD Primary Care Provider Active Start: April 16, 2025 Dr. Jennie Mcintyre MD Referring Provider Active Start: April 16, 2025 Dr. Oscar Steele MD Attending Provider Active Start: April 16, 2025 Dr. Oscar Steele MD Other Provider Active Sta rt: April 16, 2025 Team Status: Active Member Role/Relationship Status Dates Dr. Jennie Mcintyre MD Primary Care Provider Active Start: January 20, 2025 Dr. Oscar Steele MD Other Provider Active Sta rt: January 20, 2025 Barbra Esparza RECORDS AND INFORMATION MANAGER, RECORDS AND INFORMATION MANAGER-C Attending Provider Active Start: January 20, 2025 Barbra Esparza RECORDS AND INFORMATION MANAGER, RECORDS AND INFORMATION MANAGER-C Referring Provider Active Start: January 20, 2025 Team Status: Inactive Member Role/Relationship Status Dates Dr. Jennie Mcintyre MD Primary Care Provider Active Start: February 10, 2025 End: February 17, 2025 Dr. Jennie Mcintyre MD Referring Provider Active Start: February 10, 2025 End: February 17, 2025 Dr. Oscar Steele MD Attending Provider Active Start: February 10, 2025 End: February 17, 2025 Team Status: Active Member Role/Relationship Status Dates Dr. Jennie Mcintyre MD Primary Care Provider Active Start: February 10, 2025 Dr. Jennie Mcintyre MD Referring Provider Active Start: February 10, 2025 Dr. Oscar Steele MD Attending Provider Active Start: February 10, 2025 Dr. Oscar Steele MD Other Provider Active Sta rt: February 10, 2025 Team Status: Active Member Role/Relationship Status Dates Dr. Jennie Mcintyre MD Primary Care Provider Active Start: February 24, 2025 Dr. Jennie Mcintyre MD Referring Provider Active Start: February 24, 2025 Dr. Oscar Steele MD Attending Provider Active Start: February 24, 2025 Dr. Oscar Steele MD Other Provider Active Sta rt: February 24, 2025 Team Status: Active Member Role/Relationship Status Dates Dr. Jennie Mcintyre MD Primary Care Provider Active Start: March 03, 2025 Dr. Jennie Mcintyre MD Referring Provider Active Start: March 03, 2025 Dr. Oscar Steele MD Attending Provider Active Start: March 03, 2025 Dr. Oscar Steele MD Other Provider Active Sta rt: March 03, 2025 Team Status: Active Member Role/Relationship Status Dates Dr. Jennie Mcintyre MD Primary Care Provider Active Start: March 17, 2025 Dr. Jennie Mcintyre MD Referring Provider Active Start: March 17, 2025 Dr. Oscar Steele MD Attending Provider Active Start: March 17, 2025 Dr. Oscar Steele MD Other Provider Active Sta rt: March 17, 2025 Team Status: Inactive Member Role/Relationship Status Dates Dr. Jennie Mcintyre MD Primary Care Provider Active Start: March 17, 2025 End: March 20, 2025 Dr. Jennie Mcintyre MD Referring Provider Active Start: March 17, 2025 End: March 20, 2025 Dr. Oscar Steele MD Attending Provider Active Start: March 17, 2025 End: March 20, 2025 Team Status: Active Member Role/Relationship Status Dates Dr. Jennie Mcintyre MD Primary Care Provider Active Start: April 07, 2025 Dr. Jennie Mcintyre MD Referring Provider Active Start: April 07, 2025 Dr. Oscar Steele MD Attending Provider Active Start: April 07, 2025 Dr. Oscar Steele MD Other Provider Active Sta rt: April 07, 2025 Team Status: Active Member Role/Relationship Status Dates Dr. Jennie Mcintyre MD Primary Care Provider Active Start: April 14, 2025 Dr. Jennie Mcintyre MD Referring Provider Active Start: April 14, 2025 Dr. Oscar Steele MD Attending Provider Active Start: April 14, 2025 Dr. Oscar Steele MD Other Provider Active Sta rt: April 14, 2025 Team Status: Inactive Member Role/Relationship Status Dates Dr. Jennie Mcintyre MD Primary Care Provider Active Start: April 14, 2025 End: April 19, 2025 Dr. Jennie Mcintyre MD Referring Provider Active Start: April 14, 2025 End: April 19, 2025 Dr. Oscar Steele MD Attending Provider Active Start: April 14, 2025 End: April 19, 2025 Team Status: Inactive Member Role/Relationship Status Dates Dr. Jennie Mcintyre MD Primary Care Provider Active Start: April 20, 2025 Dr. Phyllis Jones MD Attending Provider Active Start: April 20, 2025 Team Status: Active Member Role/Relationship Status Dates Dr. Jennie Mcintyre MD Primary Care Provider Active Start: April 27, 2025 Dr. Jennie Mcintyre MD Referring Provider Active Start: April 27, 2025 Dr. Oscar Steele MD Attending Provider Active Start: April 27, 2025 Dr. Oscar Steele MD Other Provider Active Sta rt: April 27, 2025 Team Status: Inactive Member Role/Relationship Status Dates Dr. Jennie Mcintyre MD Primary Care Provider Active Start: May 18, 2025 End: May 20, 2025 Dr. Jennie Mcintyre MD Referring Provider Active Start: May 18, 2025 End: May 20, 2025 Dr. Oscar Steele MD Attending Provider Active Start: May 18, 2025 End: May 20, 2025 Team Status: Active Member Role/Relationship Status Dates Dr. Jennie Mcintyre MD Primary Care Provider Active Start: May 19, 2025 Dr. Jennie Mcintyre MD Referring Provider Active Start: May 19, 2025 Dr. Oscar Steele MD Attending Provider Active Start: May 19, 2025 Dr. Oscar Steele MD Other Provider Active Sta rt: May 19, 2025 FOR RECORDS PERTAINING TO PATIENTS WHO ARE OR HAVE BEEN ENROLLED IN A CHEMICAL DEPENDENCY/SUBSTANCEABUSE PROGRAM, SOME INFORMATION MAY BE OMITTED. This clinical summary was aggregated from multiple sources. Caution should be exercised in using it in the provision of clinical care. This summary normalizes information from multiple sources, and as a consequence, information in this document may materially change the coding, format and clinical context of patient data. In addition, data may be omitted in some cases. CLINICAL DECISIONS SHOULD BE BASED ON THE PRIMARY CLINICAL RECORDS. [facility] [employer] [facility]. provides no warranty or guarantee of the accuracy or completeness of information in this document.
== END | disposition home or self-care (01) ==
PROVIDERS: PCP Student in an Organized Health Care Education/Training Program; Referring Provider Psychiatry & Neurology Neurology; Visit Provider Psychiatry & Neurology Neurology
DX: D33.3 Benign neoplasm of cranial nerves (principal)
CPT/HCPCS: 70470